=== PATIENT | female | born 1955 | race Caucasian/White ===

== ENCOUNTER 2016-10-29 22:48 | Inpatient (IN) | payer MEDICARE, OTHER ==
[~2016-10-29] VITALS: Ht 154.9 cm; Wt 104.8 kg
[~2016-10-29 22:48] MED LIST: ACET160S PO; ACET325T21 PO; ACET325T9 PO; BENZ0.5T PO; CHOL100014 PO; CHOL500021 PO; CLON0.5T3 PO; CYAN10002 IM; DIVA500T2 PO; DIVA500T4 PO; DOCU-109 PO; FAMO-63 PO; FURO-68 PO; FURO40TA4 PO; HALDOL PO; HALO10TA PO; IPRA3AMP NEB; MAG30ORA2 PO; MAGN2400 PO; METF850T2 PO; METH29OI TP; MULT-208 PO; PANT40TA5 PO; POLY17PO3 PO; QUET200T4 PO; RISP0.5T24 PO; SIMV10TA3 PO; ZIPR20CA2 PO; ZIPR20VI IM
[2016-10-29] MEDS ORDERED: RISP50DI IM (22:51)
[2016-10-29] MEDS ORDERED: POTA20LI27 PO (22:51)
[2016-10-29] MEDS ORDERED: HALO5AMP2 IM (22:51)
[2016-10-29] MEDS ORDERED: CLON1TAB3 PO (22:51)
[2016-10-29] MEDS ORDERED: INSU100I27 SQ (22:51)
[2016-10-29] MEDS ORDERED: QUET100T4 PO (22:51)
[2016-10-29] MEDS ORDERED: METF10002 PO (22:51)
[2016-10-29 23:58] LABS: BACTERIA,URINE FEW /HPF (0-FEW); BILIRUBIN,URINE NEG (NEG); CLARITY,URINE CLEAR; COLOR,URINE YELLOW; GLUCOSE,URINE NEG (NEG); NITRITE,URINE NEG (NEG); RBC,URINE 0 /HPF (0-2); SQUAMOUS EPITHELIAL CELL,UR FEW /LPF; UROBILINOGEN,URINE 0.2 mg/dL (0.2 mg/dL); WBC,URINE OCC /HPF (0-4)
[2016-10-30 00:12] LABS: BASO # 0.1 x10^3/uL (0.0-0.2); BASO % 1 % (0-3); EOS # 0.1 x10^3/uL (0.0-0.7); EOS % 2 % (0-3); HEMOGLOBIN 12.9 g/dL (12.0-15.5); LYMPH # 2.1 x10^3/uL (1.0-4.8); LYMPH % 25 % (24-48); MEAN CORPUSCULAR HEMOGLOBIN 25 pg (25-35); MEAN CORPUSCULAR HGB CONC 32 g/dL (31-37); MEAN CORPUSCULAR VOLUME 79 fL (79-100); MONO # 0.6 x10^3/uL (0.0-1.1); MONO % 7 % (0-9); NEUT # 5.7 x10^3uL (1.8-7.7); NEUT % 67 % (31-73); PLATELET COUNT 238 x10^3/uL (140-400); RED BLOOD COUNT 5.21 x10^6/uL (3.50-5.40); RED CELL DISTRIBUTION WIDTH 19.2 % (11.5-14.5); WHITE BLOOD COUNT 8.5 x10^3/uL (4.0-11.0)
[2016-10-30 00:22] LABS: ALBUMIN 3.3 g/dL (3.4-5.0); ALBUMIN/GLOBULIN RATIO 0.6 (1.0-1.7); CALCIUM 9.2 mg/dL (8.5-10.1); CREATININE 0.7 mg/dL (0.6-1.0); GFR 84.8; POTASSIUM 3.6 mmol/L (3.5-5.1); TOTAL BILIRUBIN 0.3 mg/dL (0.2-1.0); TOTAL PROTEIN 9.1 g/dL (6.4-8.2)
--- NOTE | 2016-10-30 00:39 | PHYS DOC ---
Past History Past Medical History: Anemia, Anxiety, Diabetes, High Cholesterol, Hypertension , Pneumonia, Schizophrenia Past Surgical History: No Surgical History Alcohol Use: None Drug Use: None Adult General Chief Complaint Chief Complaint: PSYCH EVALUATION HPI HPI Patient is a 61 year old F who presents with acute psychoses and for medical clearance for [facility]. Patient was sent in by her facility for psychiatric evaluation. She does a direct admit to [facility] however needs medical clearance prior to going upstairs to [facility]. Patient has no family at bedside. Patient has history of schizophrenia per patient's paperwork. Patient has no complaints. Pertinent exam findings: Heart was regular rate and rhythm without murmurs Lungs are clear to auscultation bilaterally without crackles wheezes rales ED course: Patient was seen and evaluated a CBC, CMP, UA, chest x-ray, EKG were ordered for medical clearance Pertinent results: Laboratory was unremarkable 0037: EKG shows normal sinus rhythm rate of 82 no STEMI MDM: After reviewing the chart, CC/HPI/PMH, physical exam, [lab results], [ radiological results], I do not believe the patient has emergent medical condition warranting further workup and/or admission at this time. I believe patient is stable to be transferred to [facility] for further psychiatric evaluation and treatment. Review of Systems Review of Systems GEN: Denies fevers, chills, sweats HEENT: Denies blurred vision, sore throat CV: Denies chest pain RESP: Denies shortness of air, cough GI: Denies n/v/d NEURO: Denies confusion, dizziness MSK: Denies weakness, joint pain/swelling Allergies Allergies Allergies Coded Allergies Type Severity Reaction Last Updated Verified No Known Drug Allergies 11/25/15 No Physical Exam Physical Exam GEN.: No apparent distress. Alert and oriented. HEENT: Head is normocephalic, atraumatic NECK: Supple. LUNGS: CTAB. HEART: RRR, S1, S2 present. Peripheral pulses intact ABDOMEN: Soft, nontender. Positive bowel sounds. EXTREMITIES: Without any cyanosis. NEUROLOGIC: Normal speech, normal tone PSYCHIATRIC: Agitated SKIN: No ulcerations Current Patient Data Lab Results Laboratory Tests Test 10/29/16 23:25 10/29/16 23:48 Urine Collection Type Unknown Urine Color Yellow Urine Clarity Clear Urine pH 5.5 Urine Specific [place] >=1.030 Urine Protein 100 mg/dl (NEG-TRACE) Urine Glucose (UA) Neg mg/dL (NEG) Urine Ketones (Stick) 15 mg/dL (NEG) Urine Blood Trace (NEG) Urine Nitrite Neg (NEG) Urine Bilirubin Neg (NEG) Urine Urobilinogen Dipstick 0.2 mg/dL (0.2 mg/dL) Urine Leukocyte Esterase Neg (NEG) Urine RBC 0 /HPF (0-2) Urine WBC Occ /HPF (0-4) Urine Squamous Epithelial Cells Few /LPF Urine Bacteria Few /HPF (0-FEW) White Blood Count 8.5 x10^3/uL (4.0-11.0) Red Blood Count 5.21 x10^6/uL (3.50-5.40) Hemoglobin 12.9 g/dL (12.0-15.5) Hematocrit 41.0 % (36.0-47.0) Mean Corpuscular Volume 79 fL (79-100) Mean Corpuscular Hemoglobin 25 pg (25-35) Mean Corpuscular Hemoglobin Concent 32 g/dL (31-37) Red Cell Distribution Width 19.2 % (11.5-14.5) H Platelet Count 238 x10^3/uL (140-400) Neutrophils (%) (Auto) 67 % (31-73) Lymphocytes (%) (Auto) 25 % (24-48) Monocytes (%) (Auto) 7 % (0-9) Eosinophils (%) (Auto) 2 % (0-3) Basophils (%) (Auto) 1 % (0-3) Neutrophils # (Auto) 5.7 x10^3uL (1.8-7.7) Lymphocytes # (Auto) 2.1 x10^3/uL (1.0-4.8) Monocytes # (Auto) 0.6 x10^3/uL (0.0-1.1) Eosinophils # (Auto) 0.1 x10^3/uL (0.0-0.7) Basophils # (Auto) 0.1 x10^3/uL (0.0-0.2) Sodium Level 139 mmol/L (136-145) Potassium Level 3.6 mmol/L (3.5-5.1) Chloride Level 101 mmol/L (98-107) Carbon Dioxide Level 32 mmol/L (21-32) Anion Gap 6 (6-14) Blood Urea Nitrogen 16 mg/dL (7-20) Creatinine 0.7 mg/dL (0.6-1.0) Estimated GFR (Cockcroft-Gault) 84.8 BUN/Creatinine Ratio 23 (6-20) H Glucose Level 182 mg/dL (70-99) H Calcium Level 9.2 mg/dL (8.5-10.1) Total Bilirubin 0.3 mg/dL (0.2-1.0) Aspartate Amino Transferase (AST) 19 U/L (15-37) Alanine Aminotransferase (ALT) 23 U/L (14-59) Alkaline Phosphatase 136 U/L (46-116) H Total Protein 9.1 g/dL (6.4-8.2) H Albumin 3.3 g/dL (3.4-5.0) L Albumin/Globulin Ratio 0.6 (1.0-1.7) L EKG EKG EKG shows normal sinus rhythm rate of 82 no STEMI [] Radiology/Procedures Radiology/Procedures Chest x-ray one view NAD [] Course & Med Decision Making Course & Med Decision Making Pertinent Labs and Imaging studies reviewed. (See chart for details) [] Dragon Disclaimer Dragon Disclaimer This chart was dictated in whole or in part using Voice Recognition software in a busy, high-work load, and often noisy Emergency Department environment. It may contain unintended and wholly unrecognized errors or omissions. Departure Departure: Impression: Primary Impression: Acute exacerbation of psychosis Additional Impression: Schizophrenia Disposition: 09 ADMITTED INPATIENT Admitting Physician: Other ([facility]) Condition: STABLE Referrals: ANGEL ANDREW (PCP) Problem Qualifiers Additional Impression: Schizophrenia Schizophrenia type: unspecified Qualified Codes: F20.9 - Schizophrenia, unspecified ALEJANDRO BALES DO Oct 30, 2016 00:39
[2016-10-30] MEDS ORDERED: METHYL SALICYLATE/MENTHOL TOPICAL OINTMENT 29GM TUBE. TP PRN (01:15)
[2016-10-30] MEDS ORDERED: IPRATRPIUM/ALBUTEROL 0.5/2.5MG 3 ML NEBU. NEB PRN (01:15)
[2016-10-30] MEDS ORDERED: MAG HYDROX/AL HYDROX/SIMETH 30 ML ORAL.SUSP PO PRN (01:15)
[2016-10-30] MEDS ORDERED: ACETAMINOPHEN 325 MG TABLET PO PRN (01:15)
[2016-10-30] MEDS ORDERED: MAGNESIUM HYDROXIDE 2,400 MG/30 ML ORAL.SUSP. PO PRN (01:15)
--- NOTE | 2016-10-30 01:19 | NUR ---
Admit Note: Admit 61 year old female patient of Dr. Feliz with DX: Schizoaffective Disorder Bipolar Type, Pt arrived via EMS from ER at 0105, Pt alert and oriented to self and place, states the year is 194 followed with "it's my world" states she is here to have something done to her body, Pt very agitated, yelling and paranoid with intermittent episodes of combativeness noted. Pt very restless and difficult to redirect upon arrival. Apical pulse 74 and regular with S1 and S2 heart tones noted, respirations 20 shallow even and non-labored with diminished bases bilaterally, Bowel sounds active x 4 quads, ABD large round soft and non-tender to palpation, Pt states her last BM was yesterday. Skin w/d with 2-3 + edema noted to BLE, Scaring noted to LLE from chronic Edema, No areas of impaired skin integrity noted. Pt assisted into the shower r/t poor hygiene at this time
[2016-10-30 01:23] VITALS: BP 164/75
[2016-10-30 02:03] LABS: VAL ACID 51 mcg/mL (50-100)
--- NOTE | 2016-10-30 04:17 | ACF ---
Admission Criteria Forms PSYCHIATRIC DISORDERS Clinical Indications for Inpatient Care (Place 'X' for any and all applicable criteria): Ongoing inpatient care may be needed for ANY ONE of the following(1)(2)(3)(4)(6) (7)(8): [ ]I. Danger to self or others not manageable at lower level of care. [ ]II. Grave disability (eg, inability to perform self care necessary at lower level of care) [ ]III. Agitation or inappropriate behavior interfering with care for primary condition (eg, attempting to discontinue lines or drains prematurely, unable to cooperate with respiratory care) [X]IV. Severe disability or disorder indicated by ALL of the following: [ ]a) Severe behavioral health disorder-related symptoms or condition indicated by ANY ONE of the following: [ ]i) Severe problem with cognition, memory, judgment, or impulse control [X]ii) Severe clinical manifestations (eg, hallucinations, delusions, other acute psychotic symptoms, kaitlin, extreme agitation or anxiety) [X]b) Patient management at lower level of care is not feasible until acute intervention or modification is initiated. Extended stay beyond goal length of stay for the primary condition may be indicated when ANY ONE of the following is present: (1)(2)(3)(4): [ ]a) Patient is a danger to self or others and not manageable at lower level of care. [ ]b) Behavior crisis management, including physical or chemical restraints, is required and is not available at a lower level of care. [ ]c) Behavioral symptoms (e.g., agitation, somnolence, inappropriate behavior) are present, and are not manageable at a lower level of care. [ ]d) Patient cannot understand follow-up treatment and crisis plan. [ ]e) Provider and supports are not sufficiently available at lower level of care. [ ]f) Patient cannot participate (e.g., verify absence of plan for harm) and is in needed of monitoring. The original [facility] content created by [facility] has been revised. The portions of the content which have been revised are identified through the use of italic text or in bold, and [facility] has neither reviewed nor approved the modified material. All other unmodified content is copyright [facility] [employer]. Please see references footnoted in the original [facility] edition 2016 Admission Criteria Met?: Yes YANNI PARSONS Oct 30, 2016 04:17
--- NOTE | 2016-10-30 04:41 | EKG ---
[address] [address] Test Date: 2016-10-30 Test Time: 00:37:52 Pat Name: PRIYA MCCABE Department: Room: [facility] 1 Gender: F Corporate Development Analyst: CHRIS : 1955 Requested By: ALEJANDRO BALES Order Number: [id number] Reading MD: [place] Measurements Intervals [place] Rate: 82 P: 35 DE: 158 QRS: -4 QRSD: 72 T: 43 QT: 366 QTc: 431 Interpretive Statements SINUS RHYTHM LEFTWARD AXIS QRS(T) CONTOUR ABNORMALITY CONSISTENT WITH ANTEROSEPTAL INFARCT PROBABLY OLD RI6. Unconfirmed report Compared to ECG 11/25/2015 21:16:31 Left-axis deviation now present Myocardial infarct finding now present T-wave abnormality no longer present Electronically Signed On 10-31-2016 9:56:36 CDT by [place]
--- NOTE | 2016-10-30 07:15 | RAD ---
Portable chest, 10/29/2016: History: Altered mental status The heart is at the upper limits of normal in size with prominence of the left ventricle. There is mild tortuosity and calcific plaquing of the thoracic aorta. The pulmonary vascularity is normal. No pulmonary infiltrates are seen. There is no evidence of pleural fluid. IMPRESSION: No acute cardiopulmonary abnormality is detected.
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
[2016-10-30] MEDS: clonazePAM 1 MG TABLET PO SCH ×3 (08:12→21:00)
[2016-10-30] MEDS: POTASSIUM CHLORIDE 20 MEQ/15 ML ORAL LIQUID. PO SCH ×3 (08:12→17:14)
[2016-10-30] MEDS: metFORMIN 500 MG TABLET PO SCH ×3 (08:12→17:15)
[2016-10-30] MEDS: QUEtiapine 50 MG TABLET. PO SCH ×7 (08:13→21:00)
[2016-10-30] MEDS: FUROSEMIDE 40 MG TABLET PO SCH ×3 (08:13→14:09)
[2016-10-30] MEDS: DIVALPROEX ER 500 MG TAB.ER.24H PO SCH ×7 (08:14→21:00)
[2016-10-30] MEDS: BENZTROPINE MESYLATE 0.5 MG TABLET PO SCH ×3 (08:14→21:00)
[2016-10-30] MEDS ORDERED: clonazePAM 0.5 MG TABLET PO SCH (09:00)
[2016-10-30] MEDS ORDERED: DIVALPROEX ER 500 MG TAB.ER.24H PO SCH (09:00)
--- NOTE | 2016-10-30 10:50 | NUR ---
ASHLEY reviewed Pt. insurance upon admit. Face sheet, CSNAP and intake state PT's insurance is Medicare primary and [facility] Medicaid secondary. No auth. needed.
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
--- NOTE | 2016-10-30 13:00 | NUR ---
Behavior Intervention Response and Plan: BIRP Note: Behavior: Assumed Care of patient, patient located in Day Room at shift change. Patient exhibited the following behavior Defensive, Non Compliant, Combative. Brief assessment on rounds of vital signs, medication needs, lab studies, and pain. Treatment plan problems . Intervention: Patient assessed and the following interventions initiated safety checks 15 Minute Checks Personal Alarm in place , Call sevilla in reach , Medications. Response: After interactions and interventions patient responded in the following manner, Non Compliant , Resistive ,Combative. Continue to assess behaviors and condition will continue to monitor throughout the shift as needed. Plan: Continue to monitor Master Treatment Plan for patient's progress toward short term goals of No harm To self/ others, Decreased Agitation, spectrographic analyst goals to return to previous living setting vs placement. Continue to assess patient for changes in above assessment. Monitor for medication needs, pain, and safety concerns. Hourly rounding performed to ensure safe environment.
--- NOTE | 2016-10-30 14:00 | NUR ---
THERAPEUTIC RECREATION GROUP NOTE TITLE :Sing along with Gely ACTIVITY : Music GOAL : Increase socialization, elevate mood, stimulate memory DURATION : 50 minutes RESPONSE : No participation.
[2016-10-30] MEDS: risperiDONE MICROSPHERES 50 MG/2 ML DISP.SYRIN. IM SCH (14:05)
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
--- NOTE | 2016-10-30 15:15 | NUR ---
THERAPEUTIC RECREATION GROUP NOTE TITLE :Music Bingo! ACTIVITY : Music GOAL : Increase socialization, elevate mood, stimulate memory DURATION : 60 minutes RESPONSE : No participation.
[2016-10-30 15:29] LABS: THYROID STIM HORMONE (TSH) 2.947 uIU/mL (0.358-3.740)
[2016-10-30] MEDS: clonazePAM 0.5 MG TABLET PO SCH ×2 (16:00→17:21)
[2016-10-30 16:11] VITALS: BP 117/68
--- NOTE | 2016-10-30 19:12 | NUR ---
Nursing Note Patient approached by this nurse to pass medications. When asked if she would take her medications patient proceeded to yell at this nurse stating that she would not take her medications. Patient was asked why she would not take medications but would not respond to further questioning.
[2016-10-30 20:13] LABS: T3 TOTAL 98 ng/dL (71-180)
--- NOTE | 2016-10-30 20:17 | PDOC ---
Exam Napoleon Demential Exam: Napoleon Note: Please also refer to the separate dictated note~for this date of service dictated separately.~Patient seen individually. Discussed the patient with Nursing staff reviewed the chart.~Reviewed interim history and current functioning. Reviewed vital signs,~Labs/ Radiology~and current medications noted below. Continue current treatment with the changes noted in the dictated addendum note Assessment: Vital Signs: Vital Signs Date Time Temp Pulse Resp B/P (MAP) Pulse Ox O2 Delivery O2 Flow Rate FiO2 10/30/16 16:11 97.6 91 20 117/68 (84) 95 Room Air Labs: Laboratory Tests Test 10/29/16 23:25 10/29/16 23:48 10/30/16 07:54 10/30/16 17:09 Urine Collection Type Unknown Urine Color Yellow Urine Clarity Clear Urine pH 5.5 Urine Specific [place] >=1.030 Urine Protein 100 mg/dl (NEG-TRACE) Urine Glucose (UA) Neg mg/dL (NEG) Urine Ketones (Stick) 15 mg/dL (NEG) Urine Blood Trace (NEG) Urine Nitrite Neg (NEG) Urine Bilirubin Neg (NEG) Urine Urobilinogen Dipstick 0.2 mg/dL (0.2 mg/dL) Urine Leukocyte Esterase Neg (NEG) Urine RBC 0 /HPF (0-2) Urine WBC Occ /HPF (0-4) Urine Squamous Epithelial Cells Few /LPF Urine Bacteria Few /HPF (0-FEW) White Blood Count 8.5 x10^3/uL (4.0-11.0) Red Blood Count 5.21 x10^6/uL (3.50-5.40) Hemoglobin 12.9 g/dL (12.0-15.5) Hematocrit 41.0 % (36.0-47.0) Mean Corpuscular Volume 79 fL (79-100) Mean Corpuscular Hemoglobin 25 pg (25-35) Mean Corpuscular Hemoglobin Concent 32 g/dL (31-37) Red Cell Distribution Width 19.2 % (11.5-14.5) H Platelet Count 238 x10^3/uL (140-400) Neutrophils (%) (Auto) 67 % (31-73) Lymphocytes (%) (Auto) 25 % (24-48) Monocytes (%) (Auto) 7 % (0-9) Eosinophils (%) (Auto) 2 % (0-3) Basophils (%) (Auto) 1 % (0-3) Neutrophils # (Auto) 5.7 x10^3uL (1.8-7.7) Lymphocytes # (Auto) 2.1 x10^3/uL (1.0-4.8) Monocytes # (Auto) 0.6 x10^3/uL (0.0-1.1) Eosinophils # (Auto) 0.1 x10^3/uL (0.0-0.7) Basophils # (Auto) 0.1 x10^3/uL (0.0-0.2) Sodium Level 139 mmol/L (136-145) Potassium Level 3.6 mmol/L (3.5-5.1) Chloride Level 101 mmol/L (98-107) Carbon Dioxide Level 32 mmol/L (21-32) Anion Gap 6 (6-14) Blood Urea Nitrogen 16 mg/dL (7-20) Creatinine 0.7 mg/dL (0.6-1.0) Estimated GFR (Cockcroft-Gault) 84.8 BUN/Creatinine Ratio 23 (6-20) H Glucose Level 182 mg/dL (70-99) H Calcium Level 9.2 mg/dL (8.5-10.1) Magnesium Level 2.0 mg/dL (1.8-2.4) Iron Level 38 ug/dL (50-170) L Total Iron Binding Capacity 437 ug/dL (250-450) Iron Saturation 9 % (15-34) L Total Bilirubin 0.3 mg/dL (0.2-1.0) Aspartate Amino Transferase (AST) 19 U/L (15-37) Alanine Aminotransferase (ALT) 23 U/L (14-59) Alkaline Phosphatase 136 U/L (46-116) H Total Protein 9.1 g/dL (6.4-8.2) H Albumin 3.3 g/dL (3.4-5.0) L Albumin/Globulin Ratio 0.6 (1.0-1.7) L Triglycerides Level 123 mg/dL (0-150) Cholesterol Level 222 mg/dL (0-200) H LDL Cholesterol, Calculated 146 mg/dL (0-100) H VLDL Cholesterol, Calculated 24 mg/dL (0-40) Non-HDL Cholesterol Calculated 170 mg/dL (0-129) H HDL Cholesterol 52 mg/dL (40-60) Cholesterol/HDL Ratio 4.0 25-Hydroxy Vitamin D Total Pending Thyroid Stimulating Hormone (TSH) 2.947 uIU/mL (0.358-3.740) Thyroxine (T4) Pending Total Triiodothyronine (TT3) 98 ng/dL (71-180) Valproic Acid Level 51 mcg/mL (50-100) Valproic Acid Last Dose Date 10/29/2016 Valproic Acid Last Dose Time 0900 RPR Titer Additional Testing Pending Glucose (Fingerstick) 138 mg/dL (70-99) H 133 mg/dL (70-99) H Test 10/30/16 19:13 Glucose (Fingerstick) 172 mg/dL (70-99) H Current Medications: Meds: Current Medications Acetaminophen (Tylenol) 650 mg PRN Q6HRS PRN PO PAIN / TEMP; Start 10/30/16 at 01:15 Multi-Ingredient Ointment (Analgesic Maple) 1 lyndon PRN QID PRN TP MUSCLE PAIN; Start 10/30/16 at 01:15 Al Hydroxide/Mg Hydroxide (Mylanta Plus Xs) 15 ml PRN AFTMEALHC PRN PO DYSPEPSIA; Start 10/30/16 at 01:15 Magnesium Hydroxide (Milk Of Magnesia) 2,400 mg PRN QHS PRN PO CONSTIPATION; Start 10/30/16 at 01:15 Benztropine Mesylate (Cogentin) 0.5 mg BID PO Last administered on 10/30/16 19: 05; Start 10/30/16 at 09:00 Clonazepam (KlonoPIN) 0.5 mg DAILY PO ; Start 10/30/16 at 09:00; Stop 10/30/16 at 09:00; Status DC Clonazepam (KlonoPIN) 1 mg BID PO Last administered on 10/30/16 19:05; Start at 09:00 Divalproex Sodium (Depakote Er) 500 mg BID PO ; Start 10/30/16 at 09:00; Stop 10/30/16 at 09:00; Status DC Quetiapine Fumarate (SEROquel) 150 mg QID PO Last administered on 10/30/16 19: 05; Start 10/30/16 at 09:00 Risperidone (RisperDAL CONSTA) 50 mg Q2WKS IM Last administered on 10/30/16 14: 05; Start 10/30/16 at 09:00 Furosemide (Lasix) 60 mg BID92 PO Last administered on 10/30/16 08:13; Start at 09:00 Insulin Detemir (Levemir) 55 units QHS SQ ; Start 10/30/16 at 21:00 Albuterol/ Ipratropium (Duoneb) 3 ml PRN DAILY PRN NEB SHORTNESS OF BREATH; Start 10/30/16 at 01:15; Stop 10/30/16 at 02:29; Status DC Potassium Chloride (KCl Oral Soln) 20 meq BIDWMEALS PO Last administered on 10/30 08:12; Start 10/30/16 at 08:00 Metformin HCl (Glucophage) 1,000 mg BIDWMEALS PO Last administered on 10/30/16 08:12; Start 10/30/16 at 08:00 Clonazepam (KlonoPIN) 0.5 mg DAILY16 PO ; Start 10/30/16 at 16:00 Divalproex Sodium (Depakote Er) 500 mg QID PO Last administered on 10/30/16 19: 05; Start 10/30/16 at 09:00 Albuterol/ Ipratropium (Duoneb) 3 ml PRN QID PRN NEB SHORTNESS OF BREATH; Start 10/31/16 at 01:15 Olanzapine (ZyPREXA ZYDIS) 5 mg PRN Q2HR PRN PO PSYCHOSIS; Start 10/30/16 at 05: 15 Mirtazapine (Remeron) 15 mg QHS PO ; Start 10/30/16 at 21:00 Buspirone HCl (Buspar) 5 mg BID PO ; Start 10/30/16 at 21:00 Active Scripts Active Reported Seroquel (Quetiapine Fumarate) 100 Mg Tablet 150 Mg PO QID Risperdal Consta (Risperidone Microspheres) 50 Mg/2 Ml Disp.syrin 50 Mg IM Q2WKS Potassium Chloride Oral Liquid (Potassium Chloride) 20 Meq/15 Ml Liquid 20 Meq PO BID Metformin Hcl 1,000 Mg Tablet 1,000 Mg PO BIDWMEALS Levemir Flextouch (Insulin Detemir) 100 Unit/1 Ml Insuln.pen 55 Unit SQ QHS Haldol (Haloperidol Lactate) 5 Mg/1 Ml Ampul 5 Mg IM PRN Q6HRS PRN Clonazepam 1 Mg Tablet 1 Mg PO BID Furosemide 40 Mg Tablet 60 Mg PO [id number] Hold for SBP less than 100. After held dose, reassess in 2 hours. If SBP is above threshold, administer dose as ordered. If SBP is below threshold, contact provider for additional instructions. Duoneb 0.5-3(2.5) Mg/3 Ml (Albuterol/Ipratropium) 3 Ml Ampul.neb 3 Ml NEB PRN QID PRN Depakote Er (Divalproex Sodium) 500 Mg Tab.er.24h 500 Mg PO QID Give with food. DO NOT CRUSH OR CHEW Cyanocobalamin Injection (Cyanocobalamin (Vitamin B-12)) 1,000 Mcg/1 Ml Vial 2, 000 Mcg IM [id number] Clonazepam 0.5 Mg Tablet 0.5 Mg PO DAILY16 Benztropine Mesylate 0.5 Mg Tablet 0.5 Mg PO BID Diagnosis: Problems: (1) Depression (2) Schizoaffective disorder (3) Schizophrenia (4) Acute exacerbation of psychosis KALIN STARKS MD Oct 30, 2016 20:17
[2016-10-30] MEDS: busPIRone 5 MG TABLET. PO SCH (21:00)
[2016-10-30] MEDS: MIRTAZAPINE 15 MG TABLET PO SCH (21:00)
[2016-10-30] MEDS: INSULIN DETEMIR 300 UNITS/3 ML INSULN.PEN. SQ SCH (21:00)
[2016-10-31 01:09] LABS: THYROXINE 9.1 ug/dL (4.5-12.0)
[2016-10-31] MEDS ORDERED: IPRATRPIUM/ALBUTEROL 0.5/2.5MG 3 ML NEBU. NEB PRN (01:15)
[2016-10-31 06:04] VITALS: BP 144/84
[2016-10-31] MEDS: metFORMIN 500 MG TABLET PO SCH ×2 (08:05→17:08)
[2016-10-31] MEDS: QUEtiapine 50 MG TABLET. PO SCH ×5 (08:06→20:07)
[2016-10-31] MEDS: busPIRone 5 MG TABLET. PO SCH ×2 (08:06→20:07)
[2016-10-31] MEDS: BENZTROPINE MESYLATE 0.5 MG TABLET PO SCH ×2 (08:06→20:07)
[2016-10-31] MEDS: FUROSEMIDE 40 MG TABLET PO SCH ×3 (08:06→13:13)
[2016-10-31] MEDS: POTASSIUM CHLORIDE 20 MEQ/15 ML ORAL LIQUID. PO SCH ×2 (08:06→17:09)
[2016-10-31] MEDS: clonazePAM 1 MG TABLET PO SCH ×2 (08:07→20:07)
[2016-10-31] MEDS: DIVALPROEX ER 500 MG TAB.ER.24H PO SCH ×3 (08:34→17:09)
--- NOTE | 2016-10-31 09:39 | CONS ---
DATE OF CONSULTATION: 10/30/2016 CONSULT FOR MEDICAL MANAGEMENT HISTORY OF PRESENT ILLNESS: The patient is a 61-year-old -Russian female patient, a [facility], who was [facility] on account. The patient is yelling, cursing, combative, paranoid, thinks staff stole her kids, refused medication and care. All this in the background of schizophrenia, and she was admitted for inpatient psychiatric stabilization. PAST MEDICAL HISTORY: Significant for type 2 diabetes mellitus, chronic respiratory failure, morbid obesity, obstructive sleep apnea, hypoxia, anemia, dysphagia. She is also known to have B12 deficiency, tremors, and previous history of cellulitis. PAST PSYCHIATRIC HISTORY: Significant for schizophrenia and dementia with behavioral disorder, psychosis, and bipolar disorder. PAST SURGICAL HISTORY: Unremarkable. FAMILY HISTORY: Noncontributory. SOCIAL HISTORY: She is a long term resident. She does not smoke, drink alcohol or use any recreational drugs. ALLERGIES: She has no known drug allergies. MEDICATIONS: She is currently on following medications: Benztropine mesylate 0.5 mg twice a day, clonazepam 0.5 mg daily, clonazepam 1 mg twice a day, cyanocobalamin or vitamin B12 is 1000 mcg intramuscular every 3 months. She is on Depakote extended release 500 mg 4 times a day, furosemide 60 mg twice a day, haloperidol 5 mg intramuscular every 6 hours. She is on detemir insulin 55 units at bedtime, ipratropium bromide, albuterol inhaler 3 mL by nebulizer 4 times a day, metformin 1000 mg twice a day with meals, potassium chloride 20 mEq twice a day, Seroquel 150 mg 4 times a day and risperidone 50 mg intramuscular every 2 weeks. REVIEW OF SYSTEMS: Unobtainable as the patient is very combative. PHYSICAL EXAMINATION: GENERAL: On examining her, she was sitting comfortably in her wheelchair, in no apparent respiratory distress. She was pale, no jaundice, cyanosis, or thyromegaly. No jugular venous distention. No . VITAL SIGNS: Her heart rate was 79, blood pressure 164/75, temperature was 97.4, respiratory rate 24 and oxygen saturation was 95% on room air. HEENT: Showed she is normocephalic, atraumatic. She is apparently wheelchair bound, but she is not allowing me to examine her properly. LABORATORY DATA: Showed that her white cell count was 8500, hemoglobin 13, hematocrit 41, MCV 79, and platelet count 238,000 with normal manual differential. Her chemistry showed that her serum sodium of 139, potassium 3.6, chloride 101, bicarbonate 32, anion gap of 6, BUN 16, creatinine 0.7, estimated GFR was 85 mL per minute. Her glucose was 182, calcium was 9.2, magnesium 2. Serum iron 38, total iron binding capacity was 437 and percent saturation was only 9%. Her total bilirubin, AST, ALT were normal. Alkaline phosphatase slightly elevated. Her total protein was 9.1, albumin was 3.3. Her serum triglycerides were normal at 123, cholesterol was 221, LDL cholesterol 146, VLDL was 24 and HDL was 52. The ratio was only 4. TSH was 2.947. Her urinalysis showed the urine was yellow, clear with a pH of 5.5, specific gravity of 1.030. There was a small amount of protein, negative for glucose, trace of ketones, trace of blood, negative for nitrite and leukocyte esterase. There were 0 rbc's, occasional wbc's, very few bacteria. Her toxic screen showed a valproic acid to be 51. Her chest x-ray showed that the heart is the upper limit of normal in size, with prominence of the left ventricle, there is mild tortuosity and calcific plaquing of the thoracic aorta. The pulmonary vascularity is normal with no pulmonary infiltrates seen. No evidence of pleural effusion or pneumothorax. SUMMARY: This is a 61-year-old -Russian female patient, who was admitted again to [facility] from [facility] on account of being paranoid thinking that the staff has stolen her kids. She has been yelling, cursing, combative, refusing medication and care, all this in a background of schizoaffective disorder with bipolar disorder and behavioral disorder. Her vital signs seem to be stable as well as her lab work. She has obviously hypercholesterolemia as her LDL cholesterol was high at 146. Her total protein was high that raised the possibility of multiple myeloma, although her kidney function is normal. She has also lab work consistent with iron deficiency anemia, although her hemoglobin is 12.9 and hematocrit 41. PLAN: My plan is to check her serum ferritin and also check serum protein electrophoresis given the total protein of 9.1. Other than that, the patient seems to be medically stable. I will continue with all current medication for the time being and review all the lab work that is still pending at the time of this dictation. Thank you Dr. Feliz for allowing me to participate in the care of this patient. NICHOLAS AGARWAL MD DR: CHIP/karli JOB#: [id number] / [id number]
--- NOTE | 2016-10-31 10:15 | NUR ---
THERAPEUTIC RECREATION GROUP NOTE TITLE :Balloon Bop with Noodles ACTIVITY : Activities and Games GOAL : Increase socialization and alertness. Maintain/improve mental and physical functioning. DURATION : 60 Minutes RESPONSE : Full participation. Pt. joined the session towards the end. She was not willing to give Physical Therapy their gait belt back. SOCIAL WORKER CLINICAL tried to move her attention to a pool noodle but Pt. did not focus. Belt was taken without cooperation from Pt. Pt. was difficult to understand and occasionally shouted during the group. She captured the balloon and refused to hit it for a minute, swatting away SOCIAL WORKER [employer]INICAL with her noodle. She was slow to comply when prompted to bump it to others. When time to return noodles, Pt. was not willing to give it to SOCIAL WORKER CLINICAL. Noodle was taken without cooperation from Pt. and Pt. tried to scratch SOCIAL WORKER CLINICAL.
--- NOTE | 2016-10-31 10:56 | NUR ---
Behavior Intervention Response and Plan: BIRP Note: Behavior: Assumed Care of patient, patient located in Dining Room at shift change. Patient exhibited the following behavior Restless, Disorganized, Compulsive. Brief assessment on rounds of vital signs, medication needs, lab studies, and pain. Treatment plan problems . Intervention: Patient assessed and the following interventions initiated safety checks 15 Minute Checks Cognitive Assessment , Head to toe Assessment , Medications. Response: After interactions and interventions patient responded in the following manner, Calm , Attention Seeking ,Cooperative. Continue to assess behaviors and condition will continue to monitor throughout the shift as needed. Plan: Continue to monitor Master Treatment Plan for patient's progress toward short term goals of Decreased Agitation, Decreased Aggression, group home goals to return to previous living setting vs placement. Continue to assess patient for changes in above assessment. Monitor for medication needs, pain, and safety concerns. Hourly rounding performed to ensure safe environment.
--- NOTE | 2016-10-31 11:20 | NUR ---
THERAPEUTIC RECREATION GROUP NOTE TITLE :Movement to Music: Flexibility ACTIVITY : Movement/ Exercise GOAL : Increase morale, attention, flexibility. Decrease stress/anxiety. DURATION : 30 Minutes RESPONSE : No participation. Addendum: 11/02/16 at 1216 by LASHAUN MANNING ACT This activity took place on 11/01/2016 at 1120, not 10/31/2016.
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
--- NOTE | 2016-10-31 13:14 | NUR ---
Nurse attempted to administer afternoon meds hidden in boost, but patient states "you cant fool me! I'm not taking that shit". Patient informed she cannot have chocolate milk until she finishes her boost, patient continued to yell, will approach again at a later time.
[2016-10-31 15:47] VITALS: BP 92/62
[2016-10-31] MEDS: clonazePAM 0.5 MG TABLET PO SCH (17:08)
--- NOTE | 2016-10-31 19:43 | PDOC ---
Exam Napoleon Demential Exam: Napoleon Note: Please also refer to the separate dictated note~for this date of service dictated separately.~Patient seen individually. Discussed the patient with Nursing staff reviewed the chart.~Reviewed interim history and current functioning. Reviewed vital signs,~Labs/ Radiology~and current medications noted below. Continue current treatment with the changes noted in the dictated addendum note Assessment: Vital Signs: Vital Signs Date Time Temp Pulse Resp B/P (MAP) Pulse Ox O2 Delivery O2 Flow Rate FiO2 10/31/16 15:47 96.7 73 18 92/62 (72) 98 10/30/16 16:11 Room Air I&O Intake and Output 10/31/16 07:00 Intake Total 720 ml Balance 720 ml Intake Oral 720 ml Labs: Laboratory Tests Test 10/31/16 07:27 10/31/16 09:17 10/31/16 11:14 10/31/16 16:37 Glucose (Fingerstick) 138 mg/dL (70-99) H 174 mg/dL (70-99) H 165 mg/dL (70-99) H Ferritin 66 ng/mL (8-252) Test 10/31/16 19:05 Glucose (Fingerstick) 228 mg/dL (70-99) H Current Medications: Meds: Current Medications Acetaminophen (Tylenol) 650 mg PRN Q6HRS PRN PO PAIN / TEMP; Start 10/30/16 at 01:15 Multi-Ingredient Ointment (Analgesic Doyline) 1 lyndon PRN QID PRN TP MUSCLE PAIN; Start 10/30/16 at 01:15 Al Hydroxide/Mg Hydroxide (Mylanta Plus Xs) 15 ml PRN AFTMEALHC PRN PO DYSPEPSIA; Start 10/30/16 at 01:15 Magnesium Hydroxide (Milk Of Magnesia) 2,400 mg PRN QHS PRN PO CONSTIPATION; Start 10/30/16 at 01:15 Benztropine Mesylate (Cogentin) 0.5 mg BID PO Last administered on 10/31/16 08: 06; Start 10/30/16 at 09:00 Clonazepam (KlonoPIN) 0.5 mg DAILY PO ; Start 10/30/16 at 09:00; Stop 10/30/16 at 09:00; Status DC Clonazepam (KlonoPIN) 1 mg BID PO Last administered on 10/31/16 08:07; Start at 09:00 Divalproex Sodium (Depakote Er) 500 mg BID PO ; Start 10/30/16 at 09:00; Stop 10/30/16 at 09:00; Status DC Quetiapine Fumarate (SEROquel) 150 mg QID PO Last administered on 10/31/16 17: 08; Start 10/30/16 at 09:00 Risperidone (RisperDAL CONSTA) 50 mg Q2WKS IM Last administered on 10/30/16 14: 05; Start 10/30/16 at 09:00 Furosemide (Lasix) 60 mg BID92 PO Last administered on 10/31/16 08:06; Start at 09:00 Insulin Detemir (Levemir) 55 units QHS SQ ; Start 10/30/16 at 21:00 Albuterol/ Ipratropium (Duoneb) 3 ml PRN DAILY PRN NEB SHORTNESS OF BREATH; Start 10/30/16 at 01:15; Stop 10/30/16 at 02:29; Status DC Potassium Chloride (KCl Oral Soln) 20 meq BIDWMEALS PO Last administered on 10/31 17:09; Start 10/30/16 at 08:00 Metformin HCl (Glucophage) 1,000 mg BIDWMEALS PO Last administered on 10/31/16 17:08; Start 10/30/16 at 08:00 Clonazepam (KlonoPIN) 0.5 mg DAILY16 PO Last administered on 10/31/16 17:08; Start 10/30/16 at 16:00 Divalproex Sodium (Depakote Er) 500 mg QID PO Last administered on 10/31/16 17: 09; Start 10/30/16 at 09:00; Stop 10/31/16 at 17:43; Status DC Albuterol/ Ipratropium (Duoneb) 3 ml PRN QID PRN NEB SHORTNESS OF BREATH; Start 10/31/16 at 01:15 Olanzapine (ZyPREXA ZYDIS) 5 mg PRN Q2HR PRN PO PSYCHOSIS; Start 10/30/16 at 05: 15 Mirtazapine (Remeron) 15 mg QHS PO ; Start 10/30/16 at 21:00 Buspirone HCl (Buspar) 5 mg BID PO Last administered on 10/31/16t 08:06; Start 10/30/16 at 21:00 Vitamin D (Vitamin D3) 50,000 unit WEEKLY PO ; Start 11/01/16 at 09:00 Divalproex Sodium (Depakote Sprinkles) 1,000 mg BID PO ; Start 10/31/16 at 21:00 Haloperidol Lactate (Haldol Oral) 5 mg DAILY PO ; Start 11/01/16 at 09:00 Active Scripts Active Reported Seroquel (Quetiapine Fumarate) 100 Mg Tablet 150 Mg PO QID Risperdal Consta (Risperidone Microspheres) 50 Mg/2 Ml Disp.syrin 50 Mg IM Q2WKS Potassium Chloride Oral Liquid (Potassium Chloride) 20 Meq/15 Ml Liquid 20 Meq PO BID Metformin Hcl 1,000 Mg Tablet 1,000 Mg PO BIDWMEALS Levemir Flextouch (Insulin Detemir) 100 Unit/1 Ml Insuln.pen 55 Unit SQ QHS Haldol (Haloperidol Lactate) 5 Mg/1 Ml Ampul 5 Mg IM PRN Q6HRS PRN Clonazepam 1 Mg Tablet 1 Mg PO BID Furosemide 40 Mg Tablet 60 Mg PO [id number] Hold for SBP less than 100. After held dose, reassess in 2 hours. If SBP is above threshold, administer dose as ordered. If SBP is below threshold, contact provider for additional instructions. Duoneb 0.5-3(2.5) Mg/3 Ml (Albuterol/Ipratropium) 3 Ml Ampul.neb 3 Ml NEB PRN QID PRN Depakote Er (Divalproex Sodium) 500 Mg Tab.er.24h 500 Mg PO QID Give with food. DO NOT CRUSH OR CHEW Cyanocobalamin Injection (Cyanocobalamin (Vitamin B-12)) 1,000 Mcg/1 Ml Vial 2, 000 Mcg IM [id number] Clonazepam 0.5 Mg Tablet 0.5 Mg PO DAILY16 Benztropine Mesylate 0.5 Mg Tablet 0.5 Mg PO BID Diagnosis: Problems: (1) Schizophrenia (2) Acute exacerbation of psychosis (3) Depression (4) Schizoaffective disorder (5) Anxiety disorder (6) Impulse control disorder (7) Schizoaffective disorder, chronic condition with acute exacerbation KALIN STARKS MD Oct 31, 2016 19:43
[2016-10-31] MEDS: MIRTAZAPINE 15 MG TABLET PO SCH (20:07)
[2016-10-31] MEDS: DIVALPROEX 125 MG CAP.SPRINK PO SCH (20:08)
[2016-10-31] MEDS: INSULIN DETEMIR 300 UNITS/3 ML INSULN.PEN. SQ SCH (20:32)
[2016-11-01 05:46] VITALS: BP 127/82
--- NOTE | 2016-11-01 06:08 | NUR ---
Behavior Intervention Response and Plan: BIRP Note: Behavior: Assumed Care of patient, patient located in Hallway at shift change. Patient exhibited the following behavior Disorganized, Compulsive, Demanding. Brief assessment on rounds of vital signs, medication needs, lab studies, and pain. Treatment plan problems 1-2. Intervention: Patient assessed and the following interventions initiated safety checks 15 Minute Checks Cognitive Assessment , Medications , Nutrition. Response: After interactions and interventions patient responded in the following manner, Delusions , Agitated ,Demanding. Continue to assess behaviors and condition will continue to monitor throughout the shift as needed. Plan: Continue to monitor Master Treatment Plan for patient's progress toward short term goals of Decreased Agitation, Medication Compliance, intermediate goals to return to previous living setting vs placement. Continue to assess patient for changes in above assessment. Monitor for medication needs, pain, and safety concerns. Hourly rounding performed to ensure safe environment.
[2016-11-01] MEDS: FUROSEMIDE 40 MG TABLET PO SCH ×2 (07:59→15:04)
[2016-11-01] MEDS: BENZTROPINE MESYLATE 0.5 MG TABLET PO SCH ×2 (07:59→19:23)
[2016-11-01] MEDS: metFORMIN 500 MG TABLET PO SCH ×2 (07:59→16:48)
[2016-11-01] MEDS: busPIRone 5 MG TABLET. PO SCH ×2 (07:59→19:23)
[2016-11-01] MEDS: POTASSIUM CHLORIDE 20 MEQ/15 ML ORAL LIQUID. PO SCH ×2 (07:59→16:48)
[2016-11-01] MEDS: DIVALPROEX 125 MG CAP.SPRINK PO SCH ×2 (07:59→19:34)
[2016-11-01] MEDS: CHOLECALCIFEROL (VITAMIN D3) 50,000 UNIT CAPSULE PO SCH (08:02)
[2016-11-01] MEDS: HALOPERIDOL 10 MG/5 ML ORAL.CONC. PO SCH (08:02)
[2016-11-01] MEDS: clonazePAM 1 MG TABLET PO SCH ×2 (08:02→19:33)
--- NOTE | 2016-11-01 11:31 | NUR ---
Behavior Intervention Response and Plan: BIRP Note: Behavior: Assumed Care of patient, patient located in Dining Room at shift change. Patient exhibited the following behavior Compulsive, Demanding, Irritable. Brief assessment on rounds of vital signs, medication needs, lab studies, and pain. Treatment plan problems . Intervention: Patient assessed and the following interventions initiated safety checks 15 Minute Checks Cognitive Assessment , Head to toe Assessment , Medications. Response: After interactions and interventions patient responded in the following manner, Calm , Compliant ,Cooperative. Continue to assess behaviors and condition will continue to monitor throughout the shift as needed. Plan: Continue to monitor Master Treatment Plan for patient's progress toward short term goals of Decreased Aggression, Decreased Agitation, termite exterminator helper goals to return to previous living setting vs placement. Continue to assess patient for changes in above assessment. Monitor for medication needs, pain, and safety concerns. Hourly rounding performed to ensure safe environment.
[2016-11-01] MEDS: clonazePAM 0.5 MG TABLET PO SCH (15:04)
[2016-11-01 15:29] VITALS: BP 102/70
[2016-11-01] MEDS: MIRTAZAPINE 15 MG TABLET PO SCH (19:23)
[2016-11-01] MEDS: INSULIN DETEMIR 300 UNITS/3 ML INSULN.PEN. SQ SCH ×2 (21:00→21:30)
--- NOTE | 2016-11-01 21:08 | PDOC ---
Exam Napoleon Demential Exam: Napoleon Note: Please also refer to the separate dictated note~for this date of service dictated separately.~Patient seen individually. Discussed the patient with Nursing staff reviewed the chart.~Reviewed interim history and current functioning. Reviewed vital signs,~Labs/ Radiology~and current medications noted below. Continue current treatment with the changes noted in the dictated addendum note Assessment: Vital Signs: Vital Signs Date Time Temp Pulse Resp B/P (MAP) Pulse Ox O2 Delivery O2 Flow Rate FiO2 11/01/16 15:29 97.3 75 18 102/70 (81) 97 Room Air I&O Intake and Output 11/01/16 07:00 Intake Total 1680 ml Balance 1680 ml Intake Oral 1680 ml # Bowel Movements 1 Labs: Laboratory Tests Test 11/01/16 07:48 11/01/16 11:23 11/01/16 16:30 11/01/16 19:24 Glucose (Fingerstick) 120 mg/dL (70-99) H 180 mg/dL (70-99) H 167 mg/dL (70-99) H 225 mg/dL (70-99) H Current Medications: Meds: Current Medications Acetaminophen (Tylenol) 650 mg PRN Q6HRS PRN PO PAIN / TEMP; Start 10/30/16 at 01:15 Multi-Ingredient Ointment (Analgesic Skillman) 1 lyndon PRN QID PRN TP MUSCLE PAIN; Start 10/30/16 at 01:15 Al Hydroxide/Mg Hydroxide (Mylanta Plus Xs) 15 ml PRN AFTMEALHC PRN PO DYSPEPSIA; Start 10/30/16 at 01:15 Magnesium Hydroxide (Milk Of Magnesia) 2,400 mg PRN QHS PRN PO CONSTIPATION; Start 10/30/16 at 01:15 Benztropine Mesylate (Cogentin) 0.5 mg BID PO Last administered on 11/01/16 19: 23; Start 10/30/16 at 09:00 Clonazepam (KlonoPIN) 0.5 mg DAILY PO ; Start 10/30/16 at 09:00; Stop 10/30/16 at 09:00; Status DC Clonazepam (KlonoPIN) 1 mg BID PO Last administered on 11/01/16 19:33; Start at 09:00 Divalproex Sodium (Depakote Er) 500 mg BID PO ; Start 10/30/16 at 09:00; Stop 10/30/16 at 09:00; Status DC Quetiapine Fumarate (SEROquel) 150 mg QID PO Last administered on 10/31/16 20: 07; Start 10/30/16 at 09:00; Stop 11/01/16 at 07:59; Status DC Risperidone (RisperDAL CONSTA) 50 mg Q2WKS IM Last administered on 10/30/16 14: 05; Start 10/30/16 at 09:00 Furosemide (Lasix) 60 mg BID92 PO Last administered on 11/01/16 15:04; Start at 09:00 Insulin Detemir (Levemir) 55 units QHS SQ Last administered on 10/31/16 20:32; Start 10/30/16 at 21:00 Albuterol/ Ipratropium (Duoneb) 3 ml PRN DAILY PRN NEB SHORTNESS OF BREATH; Start 10/30/16 at 01:15; Stop 10/30/16 at 02:29; Status DC Potassium Chloride (KCl Oral Soln) 20 meq BIDWMEALS PO Last administered on 11/01 16:48; Start 10/30/16 at 08:00 Metformin HCl (Glucophage) 1,000 mg BIDWMEALS PO Last administered on 11/01/16 16:48; Start 10/30/16 at 08:00 Clonazepam (KlonoPIN) 0.5 mg DAILY16 PO Last administered on 11/01/16 15:04; Start 10/30/16 at 16:00 Divalproex Sodium (Depakote Er) 500 mg QID PO Last administered on 10/31/16 17: 09; Start 10/30/16 at 09:00; Stop 10/31/16 at 17:43; Status DC Albuterol/ Ipratropium (Duoneb) 3 ml PRN QID PRN NEB SHORTNESS OF BREATH; Start 10/31/16 at 01:15 Olanzapine (ZyPREXA ZYDIS) 5 mg PRN Q2HR PRN PO PSYCHOSIS; Start 10/30/16 at 05: 15 Mirtazapine (Remeron) 15 mg QHS PO Last administered on 11/01/16 19:23; Start 10/30/16 at 21:00 Buspirone HCl (Buspar) 5 mg BID PO Last administered on 11/01/16 19:23; Start 10/30/16 at 21:00 Vitamin D (Vitamin D3) 50,000 unit WEEKLY PO Last administered on 11/01/16 08: 02; Start 11/01/16 at 09:00 Divalproex Sodium (Depakote Sprinkles) 1,000 mg BID PO Last administered on 11/01 19:34; Start 10/31/16 at 21:00 Haloperidol Lactate (Haldol Oral) 5 mg DAILY PO Last administered on 11/01/16 08:02; Start 11/01/16 at 09:00 Active Scripts Active Reported Seroquel (Quetiapine Fumarate) 100 Mg Tablet 150 Mg PO QID Risperdal Consta (Risperidone Microspheres) 50 Mg/2 Ml Disp.syrin 50 Mg IM Q2WKS Potassium Chloride Oral Liquid (Potassium Chloride) 20 Meq/15 Ml Liquid 20 Meq PO BID Metformin Hcl 1,000 Mg Tablet 1,000 Mg PO BIDWMEALS Levemir Flextouch (Insulin Detemir) 100 Unit/1 Ml Insuln.pen 55 Unit SQ QHS Haldol (Haloperidol Lactate) 5 Mg/1 Ml Ampul 5 Mg IM PRN Q6HRS PRN Clonazepam 1 Mg Tablet 1 Mg PO BID Furosemide 40 Mg Tablet 60 Mg PO [id number] Hold for SBP less than 100. After held dose, reassess in 2 hours. If SBP is above threshold, administer dose as ordered. If SBP is below threshold, contact provider for additional instructions. Duoneb 0.5-3(2.5) Mg/3 Ml (Albuterol/Ipratropium) 3 Ml Ampul.neb 3 Ml NEB PRN QID PRN Depakote Er (Divalproex Sodium) 500 Mg Tab.er.24h 500 Mg PO QID Give with food. DO NOT CRUSH OR CHEW Cyanocobalamin Injection (Cyanocobalamin (Vitamin B-12)) 1,000 Mcg/1 Ml Vial 2, 000 Mcg IM [id number] Clonazepam 0.5 Mg Tablet 0.5 Mg PO DAILY16 Benztropine Mesylate 0.5 Mg Tablet 0.5 Mg PO BID Diagnosis: Problems: (1) Schizophrenia (2) Acute exacerbation of psychosis (3) Depression (4) Schizoaffective disorder (5) Anxiety disorder (6) Impulse control disorder (7) Schizoaffective disorder, chronic condition with acute exacerbation KALIN STARKS MD Nov 01, 2016 21:08
--- NOTE | 2016-11-01 23:52 | NUR ---
Behavior Intervention Response and Plan: BIRP Note: Behavior: Assumed Care of patient, patient located in Day Room at shift change. Patient exhibited the following behavior Compulsive, Demanding, Irritable, Resistive, Agitated. Brief assessment on rounds of vital signs, medication needs, lab studies, and pain. Treatment plan problems: DTO and Fall Risk. Intervention: Patient assessed and the following interventions initiated safety checks 15 Minute Checks Cognitive Assessment , Head to toe Assessment , Medications, Oral Hydration, and Nutrition. Response: After interactions and interventions patient responded in the following manner, Calm , Compliant ,Cooperative. Continue to assess behaviors and condition will continue to monitor throughout the shift as needed. Plan: Continue to monitor Master Treatment Plan for patient's progress toward short term goals of Decreased Aggression, Decreased Agitation, Medication Compliance custodial goals to return to previous living setting vs placement. Continue to assess patient for changes in above assessment. Monitor for medication needs, pain, and safety concerns. Hourly rounding performed to ensure safe environment.
[2016-11-02 06:21] VITALS: BP 132/75
[2016-11-02] MEDS: BENZTROPINE MESYLATE 0.5 MG TABLET PO SCH ×2 (07:48→19:47)
[2016-11-02] MEDS: busPIRone 5 MG TABLET. PO SCH ×2 (07:48→19:47)
[2016-11-02] MEDS: metFORMIN 500 MG TABLET PO SCH ×2 (07:48→17:14)
[2016-11-02] MEDS: FUROSEMIDE 40 MG TABLET PO SCH ×2 (07:48→15:09)
[2016-11-02] MEDS: DIVALPROEX 125 MG CAP.SPRINK PO SCH ×2 (07:48→19:49)
[2016-11-02] MEDS: POTASSIUM CHLORIDE 20 MEQ/15 ML ORAL LIQUID. PO SCH ×2 (07:49→17:00)
[2016-11-02] MEDS: clonazePAM 1 MG TABLET PO SCH ×2 (07:53→19:48)
[2016-11-02] MEDS: HALOPERIDOL 10 MG/5 ML ORAL.CONC. PO SCH (07:53)
--- NOTE | 2016-11-02 09:05 | NUR ---
ACTIVITY THERAPY ASSESSMENT Completed based on observation and interview on this day at this time on the patio. Pt. was pleasant and recognized ENT NURSE. Pt's speech was difficult to understand but she repeated herself when asked to for clarification. She stated she liked to paint, play with cher candles (as she acted it out) and sparklers. She said she liked music but does not like Bingo. Pt. stated it was the year 1942, she was 28 years old and had 114 kids. At times Pt. can be uncooperative and non compliant with staff. She hoots and hollers randomly which can be disruptive to the groups. During assessment, she loudly said "get your hands off me." When asked to clarify who she was talking to, Pt. stated "Manuel". She has minimal conversation or meaningful interaction with peers. Initial goal is aimed to increase positive social interaction: Pt. will participate in all groups she is invited to, in a peaceful manner.
--- NOTE | 2016-11-02 11:02 | NUR ---
Behavior Intervention Response and Plan: BIRP Note: Behavior: Assumed Care of patient, patient located in Day Room at shift change. Patient exhibited the following behavior Irritable, Resistive, Delusions. Brief assessment on rounds of vital signs, medication needs, lab studies, and pain. Treatment plan problems . Intervention: Patient assessed and the following interventions initiated safety checks 15 Minute Checks Cognitive Assessment , Head to toe Assessment , Medications. Response: After interactions and interventions patient responded in the following manner, Calm , Compliant ,Cooperative. Continue to assess behaviors and condition will continue to monitor throughout the shift as needed. Plan: Continue to monitor Master Treatment Plan for patient's progress toward short term goals of Decreased Agitation, Decreased Aggression, fdc goals to return to previous living setting vs placement. Continue to assess patient for changes in above assessment. Monitor for medication needs, pain, and safety concerns. Hourly rounding performed to ensure safe environment.
--- NOTE | 2016-11-02 14:00 | NUR ---
THERAPEUTIC RECREATION GROUP NOTE TITLE :Movie ACTIVITY : Activities and Games GOAL : Increase alertness/focus, decrease stress DURATION : 90 Minutes RESPONSE : No participation.
[2016-11-02 14:11] LABS: TOTAL PROTEIN 9.3 g/dL (6.4-8.2)
[2016-11-02 14:12] LABS: ALBUMIN 3.3 g/dL (3.4-5.0); ALBUMIN/GLOBULIN RATIO 0.6 (1.0-1.7); ALK PHOS 129 U/L (46-116); ALT (SGPT) 20 U/L (14-59); ANION GAP 11 (6-14); AST (SGOT) 14 U/L (15-37); BLOOD UREA NITROGEN 25 mg/dL (7-20); BUN/CREATININE RATIO 23 (6-20); CALCIUM 9.6 mg/dL (8.5-10.1); CARBON DIOXIDE 33 mmol/L (21-32); CHLORIDE 97 mmol/L (98-107); CREATININE 1.1 mg/dL (0.6-1.0); GFR 50.3; GLUCOSE 125 mg/dL (70-99); POTASSIUM 4.1 mmol/L (3.5-5.1); SODIUM 141 mmol/L (136-145); TOTAL BILIRUBIN 0.2 mg/dL (0.2-1.0)
[2016-11-02 14:13] LABS: VAL ACID 116 mcg/mL (50-100)
[2016-11-02 14:31] LABS: HEMATOCRIT 45.3 % (36.0-47.0); HEMOGLOBIN 13.8 g/dL (12.0-15.5); RED BLOOD COUNT 5.63 x10^6/uL (3.50-5.40); RED CELL DISTRIBUTION WIDTH 18.8 % (11.5-14.5); WHITE BLOOD COUNT 8.3 x10^3/uL (4.0-11.0)
[2016-11-02] MEDS: clonazePAM 0.5 MG TABLET PO SCH (15:09)
[2016-11-02 15:27] VITALS: BP 124/77
[2016-11-02] MEDS: MIRTAZAPINE 15 MG TABLET PO SCH (19:48)
--- NOTE | 2016-11-02 20:00 | NUR ---
Behavior Intervention Response and Plan: BIRP Note: Behavior: Assumed Care of patient, patient located in Day Room at shift change. Patient exhibited the following behavior Irritable, Resistive, Delusions. Brief assessment on rounds of vital signs, medication needs, lab studies, and pain. Treatment plan problems: 1-2 . Intervention: Patient assessed and the following interventions initiated safety checks 15 Minute Checks Cognitive Assessment , Head to toe Assessment , Medications, Oral hydration, and Nutrition. Response: After interactions and interventions patient responded in the following manner, Calm , Compliant ,Cooperative. Continue to assess behaviors and condition will continue to monitor throughout the shift as needed. 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 Continue to assess patient for changes in above assessment. Monitor for medication needs, pain, and safety concerns. Hourly rounding performed to ensure safe environment.
--- NOTE | 2016-11-02 21:30 | PDOC ---
Exam Napoleon Demential Exam: Napoleon Note: Please also refer to the separate dictated note~for this date of service dictated separately.~Patient seen individually. Discussed the patient with Nursing staff reviewed the chart.~Reviewed interim history and current functioning. Reviewed vital signs,~Labs/ Radiology~and current medications noted below. Continue current treatment with the changes noted in the dictated addendum note Assessment: Vital Signs: Vital Signs Date Time Temp Pulse Resp B/P (MAP) Pulse Ox O2 Delivery O2 Flow Rate FiO2 11/02/16 15:27 98.0 88 20 124/77 (93) 93 Room Air I&O Intake and Output 11/02/16 07:00 Intake Total 840 ml Balance 840 ml Intake Oral 840 ml # Bowel Movements 3 Labs: Laboratory Tests Test 11/02/16 07:14 11/02/16 11:17 11/02/16 13:51 11/02/16 17:01 Glucose (Fingerstick) 123 mg/dL (70-99) H 160 mg/dL (70-99) H 185 mg/dL (70-99) H White Blood Count 8.3 x10^3/uL (4.0-11.0) Red Blood Count 5.63 x10^6/uL (3.50-5.40) H Hemoglobin 13.8 g/dL (12.0-15.5) Hematocrit 45.3 % (36.0-47.0) Mean Corpuscular Volume 80 fL (79-100) Mean Corpuscular Hemoglobin 25 pg (25-35) Mean Corpuscular Hemoglobin Concent 31 g/dL (31-37) Red Cell Distribution Width 18.8 % (11.5-14.5) H Platelet Count 233 x10^3/uL (140-400) Sodium Level 141 mmol/L (136-145) Potassium Level 4.1 mmol/L (3.5-5.1) Chloride Level 97 mmol/L (98-107) L Carbon Dioxide Level 33 mmol/L (21-32) H Anion Gap 11 (6-14) Blood Urea Nitrogen 25 mg/dL (7-20) H Creatinine 1.1 mg/dL (0.6-1.0) H Estimated GFR (Cockcroft-Gault) 50.3 BUN/Creatinine Ratio 23 (6-20) H Glucose Level 125 mg/dL (70-99) H Calcium Level 9.6 mg/dL (8.5-10.1) Total Bilirubin 0.2 mg/dL (0.2-1.0) Aspartate Amino Transferase (AST) 14 U/L (15-37) L Alanine Aminotransferase (ALT) 20 U/L (14-59) Alkaline Phosphatase 129 U/L (46-116) H Total Protein 9.3 g/dL (6.4-8.2) H Albumin 3.3 g/dL (3.4-5.0) L Albumin/Globulin Ratio 0.6 (1.0-1.7) L Valproic Acid Level 116 mcg/mL (50-100) H Valproic Acid Last Dose Date 11/02/2016 Valproic Acid Last Dose Time 2100 Test 11/02/16 19:33 Glucose (Fingerstick) 191 mg/dL (70-99) H Current Medications: Meds: Current Medications Acetaminophen (Tylenol) 650 mg PRN Q6HRS PRN PO PAIN / TEMP; Start 10/30/16 at 01:15 Multi-Ingredient Ointment (Analgesic [place]) 1 lyndon PRN QID PRN TP MUSCLE PAIN; Start 10/30/16 at 01:15 Al Hydroxide/Mg Hydroxide (Mylanta Plus Xs) 15 ml PRN AFTMEALHC PRN PO DYSPEPSIA; Start 10/30/16 at 01:15 Magnesium Hydroxide (Milk Of Magnesia) 2,400 mg PRN QHS PRN PO CONSTIPATION; Start 10/30/16 at 01:15 Benztropine Mesylate (Cogentin) 0.5 mg BID PO Last administered on 11/02/16 19: 47; Start 10/30/16 at 09:00 Clonazepam (KlonoPIN) 0.5 mg DAILY PO ; Start 10/30/16 at 09:00; Stop 10/30/16 at 09:00; Status DC Clonazepam (KlonoPIN) 1 mg BID PO Last administered on 11/02/16 19:48; Start at 09:00 Divalproex Sodium (Depakote Er) 500 mg BID PO ; Start 10/30/16 at 09:00; Stop 10/30/16 at 09:00; Status DC Quetiapine Fumarate (SEROquel) 150 mg QID PO Last administered on 10/31/16 20: 07; Start 10/30/16 at 09:00; Stop 11/01/16 at 07:59; Status DC Risperidone (RisperDAL CONSTA) 50 mg Q2WKS IM Last administered on 10/30/16 14: 05; Start 10/30/16 at 09:00 Furosemide (Lasix) 60 mg BID92 PO Last administered on 11/02/16 15:09; Start at 09:00 Insulin Detemir (Levemir) 55 units QHS SQ Last administered on 10/31/16 20:32; Start 10/30/16 at 21:00 Albuterol/ Ipratropium (Duoneb) 3 ml PRN DAILY PRN NEB SHORTNESS OF BREATH; Start 10/30/16 at 01:15; Stop 10/30/16 at 02:29; Status DC Potassium Chloride (KCl Oral Soln) 20 meq BIDWMEALS PO Last administered on 11/02 07:49; Start 10/30/16 at 08:00 Metformin HCl (Glucophage) 1,000 mg BIDWMEALS PO Last administered on 11/02/16 17:14; Start 10/30/16 at 08:00 Clonazepam (KlonoPIN) 0.5 mg DAILY16 PO Last administered on 11/02/16 15:09; Start 10/30/16 at 16:00 Divalproex Sodium (Depakote Er) 500 mg QID PO Last administered on 10/31/16 17: 09; Start 10/30/16 at 09:00; Stop 10/31/16 at 17:43; Status DC Albuterol/ Ipratropium (Duoneb) 3 ml PRN QID PRN NEB SHORTNESS OF BREATH; Start 10/31/16 at 01:15 Olanzapine (ZyPREXA ZYDIS) 5 mg PRN Q2HR PRN PO PSYCHOSIS; Start 10/30/16 at 05: 15 Mirtazapine (Remeron) 15 mg QHS PO Last administered on 11/02/16 19:48; Start 10/30/16 at 21:00 Buspirone HCl (Buspar) 5 mg BID PO Last administered on 11/02/16 19:47; Start 10/30/16 at 21:00 Vitamin D (Vitamin D3) 50,000 unit WEEKLY PO Last administered on 11/01/16 08: 02; Start 11/01/16 at 09:00 Divalproex Sodium (Depakote Sprinkles) 1,000 mg BID PO Last administered on 11/02 07:48; Start 10/31/16 at 21:00; Stop 11/02/16 at 18:49; Status DC Haloperidol Lactate (Haldol Oral) 5 mg DAILY PO Last administered on 11/02/16 07:53; Start 11/01/16 at 09:00 Divalproex Sodium (Depakote Sprinkles) 750 mg BID PO Last administered on 19:49; Start 11/02/16 at 21:00 Active Scripts Active Reported Seroquel (Quetiapine Fumarate) 100 Mg Tablet 150 Mg PO QID Risperdal Consta (Risperidone Microspheres) 50 Mg/2 Ml Disp.syrin 50 Mg IM Q2WKS Potassium Chloride Oral Liquid (Potassium Chloride) 20 Meq/15 Ml Liquid 20 Meq PO BID Metformin Hcl 1,000 Mg Tablet 1,000 Mg PO BIDWMEALS Levemir Flextouch (Insulin Detemir) 100 Unit/1 Ml Insuln.pen 55 Unit SQ QHS Haldol (Haloperidol Lactate) 5 Mg/1 Ml Ampul 5 Mg IM PRN Q6HRS PRN Clonazepam 1 Mg Tablet 1 Mg PO BID Furosemide 40 Mg Tablet 60 Mg PO [id number] Hold for SBP less than 100. After held dose, reassess in 2 hours. If SBP is above threshold, administer dose as ordered. If SBP is below threshold, contact provider for additional instructions. Duoneb 0.5-3(2.5) Mg/3 Ml (Albuterol/Ipratropium) 3 Ml Ampul.neb 3 Ml NEB PRN QID PRN Depakote Er (Divalproex Sodium) 500 Mg Tab.er.24h 500 Mg PO QID Give with food. DO NOT CRUSH OR CHEW Cyanocobalamin Injection (Cyanocobalamin (Vitamin B-12)) 1,000 Mcg/1 Ml Vial 2, 000 Mcg IM [id number] Clonazepam 0.5 Mg Tablet 0.5 Mg PO DAILY16 Benztropine Mesylate 0.5 Mg Tablet 0.5 Mg PO BID Diagnosis: Problems: (1) Schizophrenia (2) Acute exacerbation of psychosis (3) Depression (4) Schizoaffective disorder (5) Anxiety disorder (6) Impulse control disorder (7) Schizoaffective disorder, chronic condition with acute exacerbation KALIN STARKS MD Nov 02, 2016 21:30
[2016-11-02] MEDS: INSULIN DETEMIR 300 UNITS/3 ML INSULN.PEN. SQ SCH (22:20)
--- NOTE | 2016-11-03 02:52 | PN ---
DATE: 10/31/2016 This is a late entry for 10/31/2016, covers the elements not covered in my initial note. SUBJECTIVE: The patient slept 5-3/4 hours, she has been combative, hostile, angry the previous evening, refused her medications the previous evening, delusional, yelling, combative. She has been also very obsessive compulsive tapping the cup counting, having repetitive movements, noncompliance with her psychotropics makes her treatment even more complicated. REVIEW OF SYSTEMS: Ambulation impaired, in her wheelchair. No CV, , pulmonary, eye system symptoms on review. Reliability poor. MENTAL STATUS EXAM: Oriented to herself and situation. Speech coherent, at times pressured. Abstraction fair, computation impaired, language function intact, attention span short. Mood and affect remains labile. LABORATORY DATA: Reviewed. IMPRESSION: Schizoaffective disorder, bipolar type, mixed with psychotic features. Rest diagnoses unchanged. PLAN: Change Seroquel to liquid Haldol 5 mg daily. Change Depakote ER 500 mg 4 times a day to Sprinkles 1000 mg twice a day. Check labs level on the valproic acid, adjust to reach a therapeutic level. Initial level is 51, but this could be compromised by noncompliance and we will have to repeat it. KALIN STARKS MD DR: TRACIE/karli JOB#: [id number] / [id number]
--- NOTE | 2016-11-03 03:51 | PN ---
DATE: 11/01/2016 PSYCHIATRIC PROGRESS NOTE This is a late entry of 11/01/2016, covers elements not covered in my initial note. SUBJECTIVE: The patient was also staffed at a treatment team meeting with the entire team. Appetite 100%, sleeping about 3-1/2 hours, remains intermittently hostile, agitated, delusional, resistive to medications, but little better since we started Haldol. REVIEW OF SYSTEMS: Ambulation impaired. No CV, , pulmonary, eye system symptoms on review. MENTAL STATUS EXAM: Oriented to herself and situation. Speech is coherent, has some latency, loud at times. Abstraction fair, computation impaired, language function intact. Mood and affect, intermittently labile. LABORATORY DATA: Reviewed. IMPRESSION: Unchanged from initial note, schizoaffective disorder, bipolar type, mixed with psychotic features. PLAN: Continue current psychotropics mentioned in my initial note. Check CBC, CMP, valproic acid level. Adjust as clinically indicated. MAN Mary STARKS MD DR: TRACIE/karli JOB#: [id number] / [id number]
[2016-11-03 05:00] VITALS: BP 118/74
[2016-11-03] MEDS: DIVALPROEX 125 MG CAP.SPRINK PO SCH ×2 (08:20→21:20)
[2016-11-03] MEDS: metFORMIN 500 MG TABLET PO SCH ×2 (08:20→17:00)
[2016-11-03] MEDS: POTASSIUM CHLORIDE 20 MEQ/15 ML ORAL LIQUID. PO SCH ×2 (08:20→17:00)
[2016-11-03] MEDS: busPIRone 5 MG TABLET. PO SCH ×2 (08:20→21:17)
[2016-11-03] MEDS: BENZTROPINE MESYLATE 0.5 MG TABLET PO SCH ×2 (08:20→21:17)
[2016-11-03] MEDS: clonazePAM 1 MG TABLET PO SCH ×2 (08:23→21:17)
[2016-11-03] MEDS: HALOPERIDOL 10 MG/5 ML ORAL.CONC. PO SCH (08:23)
[2016-11-03] MEDS: FUROSEMIDE 40 MG TABLET PO SCH ×2 (08:23→13:20)
--- NOTE | 2016-11-03 11:09 | PDOC ---
Exam Napoleon Demential Exam: Napoleon Note: Please also refer to the separate dictated note~for this date of service dictated separately.~Patient seen individually. Discussed the patient with Nursing staff reviewed the chart.~Reviewed interim history and current functioning. Reviewed vital signs,~Labs/ Radiology~and current medications noted below. Continue current treatment with the changes noted in the dictated addendum note Assessment: Vital Signs: Vital Signs Date Time Temp Pulse Resp B/P (MAP) Pulse Ox O2 Delivery O2 Flow Rate FiO2 11/03/16 05:00 97.8 81 16 118/74 (89) 96 Room Air I&O Intake and Output 11/03/16 07:00 Intake Total 1540 ml Balance 1540 ml Intake Oral 1540 ml # Bowel Movements 1 Labs: Laboratory Tests Test 11/02/16 11:17 11/02/16 13:51 11/02/16 17:01 11/02/16 19:33 Glucose (Fingerstick) 160 mg/dL (70-99) H 185 mg/dL (70-99) H 191 mg/dL (70-99) H White Blood Count 8.3 x10^3/uL (4.0-11.0) Red Blood Count 5.63 x10^6/uL (3.50-5.40) H Hemoglobin 13.8 g/dL (12.0-15.5) Hematocrit 45.3 % (36.0-47.0) Mean Corpuscular Volume 80 fL (79-100) Mean Corpuscular Hemoglobin 25 pg (25-35) Mean Corpuscular Hemoglobin Concent 31 g/dL (31-37) Red Cell Distribution Width 18.8 % (11.5-14.5) H Platelet Count 233 x10^3/uL (140-400) Sodium Level 141 mmol/L (136-145) Potassium Level 4.1 mmol/L (3.5-5.1) Chloride Level 97 mmol/L (98-107) L Carbon Dioxide Level 33 mmol/L (21-32) H Anion Gap 11 (6-14) Blood Urea Nitrogen 25 mg/dL (7-20) H Creatinine 1.1 mg/dL (0.6-1.0) H Estimated GFR (Cockcroft-Gault) 50.3 BUN/Creatinine Ratio 23 (6-20) H Glucose Level 125 mg/dL (70-99) H Calcium Level 9.6 mg/dL (8.5-10.1) Total Bilirubin 0.2 mg/dL (0.2-1.0) Aspartate Amino Transferase (AST) 14 U/L (15-37) L Alanine Aminotransferase (ALT) 20 U/L (14-59) Alkaline Phosphatase 129 U/L (46-116) H Total Protein 9.3 g/dL (6.4-8.2) H Albumin 3.3 g/dL (3.4-5.0) L Albumin/Globulin Ratio 0.6 (1.0-1.7) L Valproic Acid Level 116 mcg/mL (50-100) H Valproic Acid Last Dose Date 11/02/2016 Valproic Acid Last Dose Time 2100 Test 11/03/16 07:44 Glucose (Fingerstick) 129 mg/dL (70-99) H Current Medications: Meds: Current Medications Acetaminophen (Tylenol) 650 mg PRN Q6HRS PRN PO PAIN / TEMP; Start 10/30/16 at 01:15 Multi-Ingredient Ointment (Analgesic [place]) 1 lyndon PRN QID PRN TP MUSCLE PAIN; Start 10/30/16 at 01:15 Al Hydroxide/Mg Hydroxide (Mylanta Plus Xs) 15 ml PRN AFTMEALHC PRN PO DYSPEPSIA; Start 10/30/16 at 01:15 Magnesium Hydroxide (Milk Of Magnesia) 2,400 mg PRN QHS PRN PO CONSTIPATION; Start 10/30/16 at 01:15 Benztropine Mesylate (Cogentin) 0.5 mg BID PO Last administered on 11/03/16 08 :20; Start 10/30/16 at 09:00 Clonazepam (KlonoPIN) 0.5 mg DAILY PO ; Start 10/30/16 at 09:00; Stop 10/30/16 at 09:00; Status DC Clonazepam (KlonoPIN) 1 mg BID PO Last administered on 11/03/16 08:23; Start 10/30/16 at 09:00 Divalproex Sodium (Depakote Er) 500 mg BID PO ; Start 10/30/16 at 09:00; Stop 10/30/16 at 09:00; Status DC Quetiapine Fumarate (SEROquel) 150 mg QID PO Last administered on 10/31/16 20: 07; Start 10/30/16 at 09:00; Stop 11/01/16 at 07:59; Status DC Risperidone (RisperDAL CONSTA) 50 mg Q2WKS IM Last administered on 10/30/16 14: 05; Start 10/30/16 at 09:00 Furosemide (Lasix) 60 mg BID92 PO Last administered on 11/03/16 08:23; Start 10/30/16 at 09:00 Insulin Detemir (Levemir) 55 units QHS SQ Last administered on 11/02/16 22:20; Start 10/30/16 at 21:00 Albuterol/ Ipratropium (Duoneb) 3 ml PRN DAILY PRN NEB SHORTNESS OF BREATH; Start 10/30/16 at 01:15; Stop 10/30/16 at 02:29; Status DC Potassium Chloride (KCl Oral Soln) 20 meq BIDWMEALS PO Last administered on 08:20; Start 10/30/16 at 08:00 Metformin HCl (Glucophage) 1,000 mg BIDWMEALS PO Last administered on 08:20; Start 10/30/16 at 08:00 Clonazepam (KlonoPIN) 0.5 mg DAILY16 PO Last administered on 11/02/16 15:09; Start 10/30/16 at 16:00 Divalproex Sodium (Depakote Er) 500 mg QID PO Last administered on 10/31/16 17: 09; Start 10/30/16 at 09:00; Stop 10/31/16 at 17:43; Status DC Albuterol/ Ipratropium (Duoneb) 3 ml PRN QID PRN NEB SHORTNESS OF BREATH; Start 10/31/16 at 01:15 Olanzapine (ZyPREXA ZYDIS) 5 mg PRN Q2HR PRN PO PSYCHOSIS; Start 10/30/16 at 05: 15 Mirtazapine (Remeron) 15 mg QHS PO Last administered on 11/02/16 19:48; Start 10/30/16 at 21:00 Buspirone HCl (Buspar) 5 mg BID PO Last administered on 11/03/16 08:20; Start 10/30/16 at 21:00 Vitamin D (Vitamin D3) 50,000 unit WEEKLY PO Last administered on 11/01/16 08: 02; Start 11/01/16 at 09:00 Divalproex Sodium (Depakote Sprinkles) 1,000 mg BID PO Last administered on 11/02 07:48; Start 10/31/16 at 21:00; Stop 11/02/16 at 18:49; Status DC Haloperidol Lactate (Haldol Oral) 5 mg DAILY PO Last administered on 11/03/16 08:23; Start 11/01/16 at 09:00 Divalproex Sodium (Depakote Sprinkles) 750 mg BID PO Last administered on 08:20; Start 11/02/16 at 21:00 Active Scripts Active Reported Seroquel (Quetiapine Fumarate) 100 Mg Tablet 150 Mg PO QID Risperdal Consta (Risperidone Microspheres) 50 Mg/2 Ml Disp.syrin 50 Mg IM Q2WKS Potassium Chloride Oral Liquid (Potassium Chloride) 20 Meq/15 Ml Liquid 20 Meq PO BID Metformin Hcl 1,000 Mg Tablet 1,000 Mg PO BIDWMEALS Levemir Flextouch (Insulin Detemir) 100 Unit/1 Ml Insuln.pen 55 Unit SQ QHS Haldol (Haloperidol Lactate) 5 Mg/1 Ml Ampul 5 Mg IM PRN Q6HRS PRN Clonazepam 1 Mg Tablet 1 Mg PO BID Furosemide 40 Mg Tablet 60 Mg PO BID92 Hold for SBP less than 100. After held dose, reassess in 2 hours. If SBP is above threshold, administer dose as ordered. If SBP is below threshold, contact provider for additional instructions. Duoneb 0.5-3(2.5) Mg/3 Ml (Albuterol/Ipratropium) 3 Ml Ampul.neb 3 Ml NEB PRN QID PRN Depakote Er (Divalproex Sodium) 500 Mg Tab.er.24h 500 Mg PO QID Give with food. DO NOT CRUSH OR CHEW Cyanocobalamin Injection (Cyanocobalamin (Vitamin B-12)) 1,000 Mcg/1 Ml Vial 2, 000 Mcg IM [id number] Clonazepam 0.5 Mg Tablet 0.5 Mg PO DAILY16 Benztropine Mesylate 0.5 Mg Tablet 0.5 Mg PO BID Diagnosis: Problems: (1) Schizophrenia (2) Acute exacerbation of psychosis (3) Depression (4) Schizoaffective disorder (5) Anxiety disorder (6) Impulse control disorder (7) Schizoaffective disorder, chronic condition with acute exacerbation KALIN STARKS MD Nov 03, 2016 11:09
--- NOTE | 2016-11-03 12:37 | NUR ---
Behavior Intervention Response and Plan: BIRP Note: Behavior: Assumed Care of patient, patient located in Day Room at shift change. Patient exhibited the following behavior constantly asking for food and snacks, cooperative with assessment. Brief assessment on rounds of vital signs, medication needs, lab studies, and pain. Treatment plan problems: DTO and Fall Risk. Intervention: Patient assessed and the following interventions initiated safety checks 15 Minute Checks Cognitive Assessment , Head to toe Assessment , Medications, Oral Hydration, and Nutrition. Response: After interactions and interventions patient responded in the following manner, cooperative and compliant. Continue to assess behaviors and condition will continue to monitor throughout the shift as needed. 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 Continue to assess patient for changes in above assessment. Monitor for medication needs, pain, and safety concerns. Hourly rounding performed to ensure safe environment.
[2016-11-03 15:45] VITALS: BP 103/76
[2016-11-03] MEDS: clonazePAM 0.5 MG TABLET PO SCH (16:59)
[2016-11-03] MEDS: MIRTAZAPINE 15 MG TABLET PO SCH (21:17)
[2016-11-03] MEDS: INSULIN DETEMIR 300 UNITS/3 ML INSULN.PEN. SQ SCH (21:25)
--- NOTE | 2016-11-03 23:00 | NUR ---
Behavior Intervention Response and Plan: BIRP Note: Behavior: Assumed Care of patient, patient located in Day Room at shift change. Patient exhibited the following behavior Irritable, Resistive, Delusions. Brief assessment on rounds of vital signs, medication needs, lab studies, and pain. Treatment plan problems: 1-2 . Intervention: Patient assessed and the following interventions initiated safety checks 15 Minute Checks Cognitive Assessment , Head to toe Assessment , Medications, Oral hydration, and Nutrition. Response: After interactions and interventions patient responded in the following manner, Calm , Compliant ,Cooperative. Continue to assess behaviors and condition will continue to monitor throughout the shift as needed. 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 Continue to assess patient for changes in above assessment. Monitor for medication needs, pain, and safety concerns. Hourly rounding performed to ensure safe environment.
[2016-11-04 05:58] VITALS: BP 170/79
[2016-11-04] MEDS: HALOPERIDOL 10 MG/5 ML ORAL.CONC. PO SCH (08:48)
[2016-11-04] MEDS: metFORMIN 500 MG TABLET PO SCH ×3 (08:48→17:39)
[2016-11-04] MEDS: clonazePAM 1 MG TABLET PO SCH ×2 (08:49→20:01)
[2016-11-04] MEDS: DIVALPROEX 125 MG CAP.SPRINK PO SCH ×2 (08:49→19:58)
[2016-11-04] MEDS: FUROSEMIDE 40 MG TABLET PO SCH ×3 (08:49→14:56)
[2016-11-04] MEDS: busPIRone 5 MG TABLET. PO SCH ×2 (08:49→19:58)
[2016-11-04] MEDS: BENZTROPINE MESYLATE 0.5 MG TABLET PO SCH ×2 (08:49→19:58)
[2016-11-04] MEDS: POTASSIUM CHLORIDE 20 MEQ/15 ML ORAL LIQUID. PO SCH ×3 (09:26→17:39)
--- NOTE | 2016-11-04 10:19 | NUR ---
Behavior Intervention Response and Plan: BIRP Note: Behavior: Assumed Care of patient, patient located in Day Room at shift change. Patient exhibited the following behavior pt agreed to take medication then refused and was suspicious. Pt then took when aide "opened" a new one in front of her. Cooperative with assessment. Brief assessment on rounds of vital signs, medication needs, lab studies, and pain. Treatment plan problems: DTO and Fall Risk. Intervention: Patient assessed and the following interventions initiated safety checks 15 Minute Checks Cognitive Assessment , Head to toe Assessment , Medications, Oral Hydration, and Nutrition. Response: After interactions and interventions patient responded in the following manner, cooperative, calm, and compliant. Continue to assess behaviors and condition will continue to monitor throughout the shift as needed. Plan: Continue to monitor Master Treatment Plan for patient's progress toward short term goals of Decreased Aggression, Decreased Agitation, Medication Compliance [facility] goals to return to previous living setting vs placement. Continue to assess patient for changes in above assessment. Monitor for medication needs, pain, and safety concerns. Hourly rounding performed to ensure safe environment.
--- NOTE | 2016-11-04 10:56 | PN ---
DATE: 11/02/2016 SUBJECTIVE: This is a late entry 11/02/2016 covers elements not covered in my initial note. SUBJECTIVE: Overall, the patient is doing a little better and toileting better. She is still delusional and bizarre in her thought processes saying that she is a "robot." REVIEW OF SYSTEMS: Ambulation impaired, in her wheelchair. No CV, , pulmonary, or eye system symptoms on review. MENTAL STATUS EXAM: Oriented to herself and situation. Speech coherent and less pressured. Abstraction fair, computation impaired, and language function intact. Mood and affect still somewhat labile, but improved. IMPRESSION: Unchanged from initial note. PLAN: Valproic acid level 116. Reduced Depakote Sprinkles from 1000 b.i.d. to 75 b.i.d. Check labs level. Continue rest of the psychotropics. MAN Mary STARKS MD DR: TRACIE/karli JOB#: [id number] / [id number]
--- NOTE | 2016-11-04 10:58 | PN ---
DATE: 11/03/2016 This note covers elements not covered in my initial note. Per nursing report, the patient has been manipulative per nursing staff, repeating things that other are saying "I want napkin, I want coffee." REVIEW OF SYSTEMS: Ambulation impaired, in her wheelchair. No CV, , pulmonary, eye system symptoms on review. MENTAL STATUS EXAM: Oriented to herself and situation. Speech coherent, less pressured. Abstraction fair, computation impaired. Language function intact. Mood and affect showing improvement, less labile. LABORATORY DATA: Reviewed. IMPRESSION: Unchanged from initial note. PLAN: Continue current psychotropics including the reduced Depakote. Follow labs level, adjust as indicated. KALIN STARKS MD DR: TRACIE/karli JOB#: [id number] / [id number]
[2016-11-04 11:11] VITALS: BP 132/79
[2016-11-04] MEDS: clonazePAM 0.5 MG TABLET PO SCH ×2 (14:13→14:57)
[2016-11-04 16:11] VITALS: BP 132/81
[2016-11-04] MEDS: MIRTAZAPINE 15 MG TABLET PO SCH (19:58)
[2016-11-04] MEDS: INSULIN DETEMIR 300 UNITS/3 ML INSULN.PEN. SQ SCH (20:03)
--- NOTE | 2016-11-04 21:07 | PDOC ---
Exam Napoleon Demential Exam: Napoleon Note: Please also refer to the separate dictated note~for this date of service dictated separately.~Patient seen individually. Discussed the patient with Nursing staff reviewed the chart.~Reviewed interim history and current functioning. Reviewed vital signs,~Labs/ Radiology~and current medications noted below. Continue current treatment with the changes noted in the dictated addendum note Assessment: Vital Signs: Vital Signs Date Time Temp Pulse Resp B/P (MAP) Pulse Ox O2 Delivery O2 Flow Rate FiO2 11/04/16 16:11 97.8 83 18 132/81 (98) 95 Room Air I&O Intake and Output 11/04/16 07:00 Intake Total 600 ml Balance 600 ml Intake Oral 600 ml Labs: Laboratory Tests Test 11/04/16 07:24 11/04/16 11:49 11/04/16 16:47 11/04/16 19:17 Glucose (Fingerstick) 68 mg/dL (70-99) L 169 mg/dL (70-99) H 101 mg/dL (70-99) H 100 mg/dL (70-99) H Current Medications: Meds: Current Medications Acetaminophen (Tylenol) 650 mg PRN Q6HRS PRN PO PAIN / TEMP; Start 10/30/16 at 01:15 Multi-Ingredient Ointment (Analgesic [place]) 1 lyndon PRN QID PRN TP MUSCLE PAIN; Start 10/30/16 at 01:15 Al Hydroxide/Mg Hydroxide (Mylanta Plus Xs) 15 ml PRN AFTMEALHC PRN PO DYSPEPSIA; Start 10/30/16 at 01:15 Magnesium Hydroxide (Milk Of Magnesia) 2,400 mg PRN QHS PRN PO CONSTIPATION; Start 10/30/16 at 01:15 Benztropine Mesylate (Cogentin) 0.5 mg BID PO Last administered on 11/04/16t 19 :58; Start 10/30/16 at 09:00 Clonazepam (KlonoPIN) 0.5 mg DAILY PO ; Start 10/30/16 at 09:00; Stop 10/30/16 at 09:00; Status DC Clonazepam (KlonoPIN) 1 mg BID PO Last administered on 11/04/16 20:01; Start 10/30/16 at 09:00 Divalproex Sodium (Depakote Er) 500 mg BID PO ; Start 10/30/16 at 09:00; Stop 10/30/16 at 09:00; Status DC Quetiapine Fumarate (SEROquel) 150 mg QID PO Last administered on 10/31/16 20: 07; Start 10/30/16 at 09:00; Stop 11/01/16 at 07:59; Status DC Risperidone (RisperDAL CONSTA) 50 mg Q2WKS IM Last administered on 10/30/16 14: 05; Start 10/30/16 at 09:00 Furosemide (Lasix) 60 mg BID92 PO Last administered on 11/04/16 08:49; Start 10/30/16 at 09:00 Insulin Detemir (Levemir) 55 units QHS SQ Last administered on 11/04/16 20:03 ; Start 10/30/16 at 21:00 Albuterol/ Ipratropium (Duoneb) 3 ml PRN DAILY PRN NEB SHORTNESS OF BREATH; Start 10/30/16 at 01:15; Stop 10/30/16 at 02:29; Status DC Potassium Chloride (KCl Oral Soln) 20 meq BIDWMEALS PO Last administered on 17:00; Start 10/30/16 at 08:00 Metformin HCl (Glucophage) 1,000 mg BIDWMEALS PO Last administered on 08:48; Start 10/30/16 at 08:00 Clonazepam (KlonoPIN) 0.5 mg DAILY16 PO Last administered on 11/03/16 16:59; Start 10/30/16 at 16:00 Divalproex Sodium (Depakote Er) 500 mg QID PO Last administered on 10/31/16 17: 09; Start 10/30/16 at 09:00; Stop 10/31/16 at 17:43; Status DC Albuterol/ Ipratropium (Duoneb) 3 ml PRN QID PRN NEB SHORTNESS OF BREATH; Start 10/31/16 at 01:15 Olanzapine (ZyPREXA ZYDIS) 5 mg PRN Q2HR PRN PO PSYCHOSIS Last administered on 11/03/16 21:19; Start 10/30/16 at 05:15 Mirtazapine (Remeron) 15 mg QHS PO Last administered on 11/04/16 19:58; Start 10/30/16 at 21:00 Buspirone HCl (Buspar) 5 mg BID PO Last administered on 11/04/16 19:58; Start 10/30/16 at 21:00 Vitamin D (Vitamin D3) 50,000 unit WEEKLY PO Last administered on 11/01/16 08: 02; Start 11/01/16 at 09:00 Divalproex Sodium (Depakote Sprinkles) 1,000 mg BID PO Last administered on 11/02 07:48; Start 10/31/16 at 21:00; Stop 11/02/16 at 18:49; Status DC Haloperidol Lactate (Haldol Oral) 5 mg DAILY PO Last administered on 11/04/16 08:48; Start 11/01/16 at 09:00; Stop 11/04/16 at 18:01; Status DC Divalproex Sodium (Depakote Sprinkles) 750 mg BID PO Last administered on 19:58; Start 11/02/16 at 21:00 Haloperidol Lactate (Haldol Oral) 7.5 mg DAILY PO ; Start 11/05/16 at 09:00 Active Scripts Active Reported Seroquel (Quetiapine Fumarate) 100 Mg Tablet 150 Mg PO QID Risperdal Consta (Risperidone Microspheres) 50 Mg/2 Ml Disp.syrin 50 Mg IM Q2WKS Potassium Chloride Oral Liquid (Potassium Chloride) 20 Meq/15 Ml Liquid 20 Meq PO BID Metformin Hcl 1,000 Mg Tablet 1,000 Mg PO BIDWMEALS Levemir Flextouch (Insulin Detemir) 100 Unit/1 Ml Insuln.pen 55 Unit SQ QHS Haldol (Haloperidol Lactate) 5 Mg/1 Ml Ampul 5 Mg IM PRN Q6HRS PRN Clonazepam 1 Mg Tablet 1 Mg PO BID Furosemide 40 Mg Tablet 60 Mg PO BID92 Hold for SBP less than 100. After held dose, reassess in 2 hours. If SBP is above threshold, administer dose as ordered. If SBP is below threshold, contact provider for additional instructions. Duoneb 0.5-3(2.5) Mg/3 Ml (Albuterol/Ipratropium) 3 Ml Ampul.neb 3 Ml NEB PRN QID PRN Depakote Er (Divalproex Sodium) 500 Mg Tab.er.24h 500 Mg PO QID Give with food. DO NOT CRUSH OR CHEW Cyanocobalamin Injection (Cyanocobalamin (Vitamin B-12)) 1,000 Mcg/1 Ml Vial 2, 000 Mcg IM [id number] Clonazepam 0.5 Mg Tablet 0.5 Mg PO DAILY16 Benztropine Mesylate 0.5 Mg Tablet 0.5 Mg PO BID Diagnosis: Problems: (1) Schizophrenia (2) Acute exacerbation of psychosis (3) Depression (4) Schizoaffective disorder (5) Anxiety disorder (6) Impulse control disorder (7) Schizoaffective disorder, chronic condition with acute exacerbation KALIN STARKS MD Nov 04, 2016 21:07
--- NOTE | 2016-11-05 00:07 | NUR ---
Behavior Intervention Response and Plan: BIRP Note: Behavior: Assumed Care of patient, patient located in Day Room at shift change. Patient exhibited the following behavior Irritable, Resistive, Delusions. Brief assessment on rounds of vital signs, medication needs, lab studies, and pain. Treatment plan problems: 1-2 . Intervention: Patient assessed and the following interventions initiated safety checks 15 Minute Checks Cognitive Assessment , Head to toe Assessment , Medications, Oral hydration, and Nutrition. Response: After interactions and interventions patient responded in the following manner, Calm , Compliant ,Cooperative. Continue to assess behaviors and condition will continue to monitor throughout the shift as needed. Plan: Continue to monitor Master Treatment Plan for patient's progress toward short term goals of Decreased Agitation, Decreased Aggression, joint terminal attack controller goals to return to previous living setting vs placement. Continue to assess patient for changes in above assessment. Monitor for medication needs, pain, and safety concerns. Hourly rounding performed to ensure safe environment.
[2016-11-05 06:12] VITALS: BP 104/58
[2016-11-05 07:23] LABS: BASO % 0 % (0-3); EOS # 0.1 x10^3/uL (0.0-0.7); EOS % 1 % (0-3); HEMATOCRIT 39.6 % (36.0-47.0); LYMPH # 1.7 x10^3/uL (1.0-4.8); LYMPH % 32 % (24-48); MEAN CORPUSCULAR HEMOGLOBIN 24 pg (25-35); MEAN CORPUSCULAR HGB CONC 30 g/dL (31-37); MEAN CORPUSCULAR VOLUME 80 fL (79-100); MONO # 0.5 x10^3/uL (0.0-1.1); MONO % 9 % (0-9); NEUT # 3.2 x10^3uL (1.8-7.7); NEUT % 58 % (31-73); PLATELET COUNT 187 x10^3/uL (140-400); RED BLOOD COUNT 4.94 x10^6/uL (3.50-5.40); RED CELL DISTRIBUTION WIDTH 18.6 % (11.5-14.5); WHITE BLOOD COUNT 5.4 x10^3/uL (4.0-11.0)
[2016-11-05 07:38] LABS: ALBUMIN 2.8 g/dL (3.4-5.0); ALBUMIN/GLOBULIN RATIO 0.6 (1.0-1.7); ALK PHOS 100 U/L (46-116); ALT (SGPT) 17 U/L (14-59); ANION GAP 1 (6-14); AST (SGOT) 13 U/L (15-37); BLOOD UREA NITROGEN 30 mg/dL (7-20); BUN/CREATININE RATIO 43 (6-20); CARBON DIOXIDE 41 mmol/L (21-32); CHLORIDE 100 mmol/L (98-107); CREATININE 0.7 mg/dL (0.6-1.0); GFR 84.8; GLUCOSE 45 mg/dL (70-99); MAGNESIUM 1.6 mg/dL (1.8-2.4); POTASSIUM 3.3 mmol/L (3.5-5.1); SODIUM 142 mmol/L (136-145); TOTAL BILIRUBIN 0.2 mg/dL (0.2-1.0); TOTAL PROTEIN 7.7 g/dL (6.4-8.2)
[2016-11-05 07:39] LABS: VAL ACID 80 mcg/mL (50-100)
[2016-11-05] MEDS: busPIRone 5 MG TABLET. PO SCH ×2 (08:33→19:40)
[2016-11-05] MEDS: POTASSIUM CHLORIDE 20 MEQ/15 ML ORAL LIQUID. PO SCH ×3 (08:33→17:46)
[2016-11-05] MEDS: metFORMIN 500 MG TABLET PO SCH ×3 (08:33→17:45)
[2016-11-05] MEDS: BENZTROPINE MESYLATE 0.5 MG TABLET PO SCH ×2 (08:34→19:40)
[2016-11-05] MEDS: FUROSEMIDE 40 MG TABLET PO SCH ×2 (08:34→13:27)
[2016-11-05] MEDS: DIVALPROEX 125 MG CAP.SPRINK PO SCH ×2 (08:34→19:40)
[2016-11-05] MEDS: clonazePAM 1 MG TABLET PO SCH ×2 (08:37→19:42)
[2016-11-05] MEDS: HALOPERIDOL 10 MG/5 ML ORAL.CONC. PO SCH (08:38)
--- NOTE | 2016-11-05 10:00 | NUR ---
THERAPEUTIC RECREATION GROUP NOTE TITLE :Color Your Flag ACTIVITY : Arts and Crafts GOAL : Increase creativity and fine motor functioning, reduce stress, anxiety. DURATION : Available for 90 minutes RESPONSE : No participation.
[2016-11-05] MEDS ORDERED: POTASSIUM CHLORIDE 20 MEQ TABLET.ER. PO ONE (10:30)
--- NOTE | 2016-11-05 10:54 | NUR ---
Behavior Intervention Response and Plan: BIRP Note: Behavior: Assumed Care of patient, patient located in Day Room at shift change. Patient exhibited the following behavior pt suspicious that medication is hid in food and is resistive at times. Cooperative with assessment. Brief assessment on rounds of vital signs, medication needs, lab studies, and pain. Treatment plan problems: DTO and Fall Risk. Intervention: Patient assessed and the following interventions initiated safety checks 15 Minute Checks Cognitive Assessment , Head to toe Assessment , Medications, Oral Hydration, and Nutrition. Response: After interactions and interventions patient responded in the following manner, cooperative, calm, and compliant. Continue to assess behaviors and condition will continue to monitor throughout the shift as needed. 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 Continue to assess patient for changes in above assessment. Monitor for medication needs, pain, and safety concerns. Hourly rounding performed to ensure safe environment.
[2016-11-05] MEDS: MAGNESIUM OXIDE 400 MG TABLET PO SCH (13:27)
--- NOTE | 2016-11-05 13:30 | NUR ---
THERAPEUTIC RECREATION GROUP NOTE TITLE :Musical Flags ACTIVITY : Activities and Games GOAL : Increase alertness/focus, socialization, group cohesion DURATION : 40 Minutes RESPONSE : Moderate participation. Pt. joined the group about half way through. Initially she said she did not want to play and ate her snack. When another patient passed her the flag she took it and passed it one. When it stopped on her, she asked what she likes to do for fun, she listed several card games. She was given two flags to wave to music for fun at the end and handed them in without resistance.
[2016-11-05 15:45] VITALS: BP 104/67
[2016-11-05 16:11] LABS: ALBUM 3.1 g/dL (2.9-4.4); ALPHA 1 0.2 g/dL (0.0-0.4); ALPHA 2 0.9 g/dL (0.4-1.0); BETA 1.5 g/dL (0.7-1.3); GAMMA 2.1 g/dL (0.4-1.8); PROTEIN TOTAL 7.7 g/dL (6.0-8.5); SPEP AG RATIO 0.7 (0.7-1.7)
[2016-11-05] MEDS: clonazePAM 0.5 MG TABLET PO SCH ×2 (17:00→17:45)
--- NOTE | 2016-11-05 17:46 | NUR ---
Pt was sleepy and did not take her 1700 medications.
[2016-11-05] MEDS: MIRTAZAPINE 15 MG TABLET PO SCH (19:40)
--- NOTE | 2016-11-05 20:00 | NUR ---
Behavior Intervention Response and Plan: BIRP Note: Behavior: Assumed Care of patient, patient located in Day Room at shift change. Patient exhibited the following behavior Irritable, Resistive, Delusions, Paranoid. Brief assessment on rounds of vital signs, medication needs, lab studies, and pain. Treatment plan problems: 1-2 . Intervention: Patient assessed and the following interventions initiated safety checks 15 Minute Checks Cognitive Assessment , Head to toe Assessment , Medications, Oral hydration, and Nutrition. Response: After interactions and interventions patient responded in the following manner, Calm , Compliant ,Cooperative. Continue to assess behaviors and condition will continue to monitor throughout the shift as needed. Plan: Continue to monitor Master Treatment Plan for patient's progress toward short term goals of Decreased Agitation, Decreased Aggression, senior living goals to return to previous living setting vs placement. Continue to assess patient for changes in above assessment. Monitor for medication needs, pain, and safety concerns. Hourly rounding performed to ensure safe environment.
[2016-11-05] MEDS: INSULIN DETEMIR 300 UNITS/3 ML INSULN.PEN. SQ SCH (21:00)
--- NOTE | 2016-11-05 23:08 | PDOC ---
Exam Napoleon Demential Exam: Napoleon Note: Please also refer to the separate dictated note~for this date of service dictated separately.~Patient seen individually. Discussed the patient with Nursing staff reviewed the chart.~Reviewed interim history and current functioning. Reviewed vital signs,~Labs/ Radiology~and current medications noted below. Continue current treatment with the changes noted in the dictated addendum note Assessment: Vital Signs: Vital Signs Date Time Temp Pulse Resp B/P (MAP) Pulse Ox O2 Delivery O2 Flow Rate FiO2 11/05/16 15:45 98.0 91 16 104/67 (79) 91 Room Air I&O Intake and Output 11/05/16 07:00 Intake Total 1290 ml Balance 1290 ml Intake Oral 1290 ml # Voids 1 Labs: Laboratory Tests Test 11/05/16 06:52 11/05/16 07:36 White Blood Count 5.4 x10^3/uL (4.0-11.0) Red Blood Count 4.94 x10^6/uL (3.50-5.40) Hemoglobin 12.0 g/dL (12.0-15.5) Hematocrit 39.6 % (36.0-47.0) Mean Corpuscular Volume 80 fL (79-100) Mean Corpuscular Hemoglobin 24 pg (25-35) L Mean Corpuscular Hemoglobin Concent 30 g/dL (31-37) L Red Cell Distribution Width 18.6 % (11.5-14.5) H Platelet Count 187 x10^3/uL (140-400) Neutrophils (%) (Auto) 58 % (31-73) Lymphocytes (%) (Auto) 32 % (24-48) Monocytes (%) (Auto) 9 % (0-9) Eosinophils (%) (Auto) 1 % (0-3) Basophils (%) (Auto) 0 % (0-3) Neutrophils # (Auto) 3.2 x10^3uL (1.8-7.7) Lymphocytes # (Auto) 1.7 x10^3/uL (1.0-4.8) Monocytes # (Auto) 0.5 x10^3/uL (0.0-1.1) Eosinophils # (Auto) 0.1 x10^3/uL (0.0-0.7) Basophils # (Auto) 0.0 x10^3/uL (0.0-0.2) Sodium Level 142 mmol/L (136-145) Potassium Level 3.3 mmol/L (3.5-5.1) L Chloride Level 100 mmol/L (98-107) Carbon Dioxide Level 41 mmol/L (21-32) H Anion Gap 1 (6-14) L Blood Urea Nitrogen 30 mg/dL (7-20) H Creatinine 0.7 mg/dL (0.6-1.0) Estimated GFR (Cockcroft-Gault) 84.8 BUN/Creatinine Ratio 43 (6-20) H Glucose Level 45 mg/dL (70-99) L Calcium Level 9.0 mg/dL (8.5-10.1) Magnesium Level 1.6 mg/dL (1.8-2.4) L Total Bilirubin 0.2 mg/dL (0.2-1.0) Aspartate Amino Transferase (AST) 13 U/L (15-37) L Alanine Aminotransferase (ALT) 17 U/L (14-59) Alkaline Phosphatase 100 U/L (46-116) Total Protein 7.7 g/dL (6.4-8.2) Albumin 2.8 g/dL (3.4-5.0) L Albumin/Globulin Ratio 0.6 (1.0-1.7) L Valproic Acid Level 80 mcg/mL (50-100) Valproic Acid Last Dose Date 11/04/16 Valproic Acid Last Dose Time 2100 Glucose (Fingerstick) 89 mg/dL (70-99) Current Medications: Meds: Current Medications Acetaminophen (Tylenol) 650 mg PRN Q6HRS PRN PO PAIN / TEMP; Start 10/30/16 at 01:15 Multi-Ingredient Ointment (Analgesic [place]) 1 lyndon PRN QID PRN TP MUSCLE PAIN; Start 10/30/16 at 01:15 Al Hydroxide/Mg Hydroxide (Mylanta Plus Xs) 15 ml PRN AFTMEALHC PRN PO DYSPEPSIA; Start 10/30/16 at 01:15 Magnesium Hydroxide (Milk Of Magnesia) 2,400 mg PRN QHS PRN PO CONSTIPATION; Start 10/30/16 at 01:15 Benztropine Mesylate (Cogentin) 0.5 mg BID PO Last administered on 11/05/16t 19 :40; Start 10/30/16 at 09:00 Clonazepam (KlonoPIN) 0.5 mg DAILY PO ; Start 10/30/16 at 09:00; Stop 10/30/16 at 09:00; Status DC Clonazepam (KlonoPIN) 1 mg BID PO Last administered on 11/05/16 19:42; Start 10/30/16 at 09:00 Divalproex Sodium (Depakote Er) 500 mg BID PO ; Start 10/30/16 at 09:00; Stop 10/30/16 at 09:00; Status DC Quetiapine Fumarate (SEROquel) 150 mg QID PO Last administered on 10/31/16 20: 07; Start 10/30/16 at 09:00; Stop 11/01/16 at 07:59; Status DC Risperidone (RisperDAL CONSTA) 50 mg Q2WKS IM Last administered on 10/30/16 14: 05; Start 10/30/16 at 09:00 Furosemide (Lasix) 60 mg BID92 PO Last administered on 11/05/16 13:27; Start 10/30/16 at 09:00 Insulin Detemir (Levemir) 55 units QHS SQ Last administered on 11/04/16 20:03 ; Start 10/30/16 at 21:00 Albuterol/ Ipratropium (Duoneb) 3 ml PRN DAILY PRN NEB SHORTNESS OF BREATH; Start 10/30/16 at 01:15; Stop 10/30/16 at 02:29; Status DC Potassium Chloride (KCl Oral Soln) 20 meq BIDWMEALS PO Last administered on 08:33; Start 10/30/16 at 08:00; Stop 11/05/16 at 10:08; Status DC Metformin HCl (Glucophage) 1,000 mg BIDWMEALS PO Last administered on 08:33; Start 10/30/16 at 08:00 Clonazepam (KlonoPIN) 0.5 mg DAILY16 PO Last administered on 11/03/16 16:59; Start 10/30/16 at 16:00 Divalproex Sodium (Depakote Er) 500 mg QID PO Last administered on 10/31/16 17: 09; Start 10/30/16 at 09:00; Stop 10/31/16 at 17:43; Status DC Albuterol/ Ipratropium (Duoneb) 3 ml PRN QID PRN NEB SHORTNESS OF BREATH; Start 10/31/16 at 01:15 Olanzapine (ZyPREXA ZYDIS) 5 mg PRN Q2HR PRN PO PSYCHOSIS Last administered on 11/03/16 21:19; Start 10/30/16 at 05:15 Mirtazapine (Remeron) 15 mg QHS PO Last administered on 11/05/16 19:40; Start 10/30/16 at 21:00 Buspirone HCl (Buspar) 5 mg BID PO Last administered on 11/05/16 19:40; Start 10/30/16 at 21:00 Vitamin D (Vitamin D3) 50,000 unit WEEKLY PO Last administered on 11/01/16 08: 02; Start 11/01/16 at 09:00 Divalproex Sodium (Depakote Sprinkles) 1,000 mg BID PO Last administered on 11/02 07:48; Start 10/31/16 at 21:00; Stop 11/02/16 at 18:49; Status DC Haloperidol Lactate (Haldol Oral) 5 mg DAILY PO Last administered on 11/04/16 08:48; Start 11/01/16 at 09:00; Stop 11/04/16 at 18:01; Status DC Divalproex Sodium (Depakote Sprinkles) 750 mg BID PO Last administered on 19:40; Start 11/02/16 at 21:00 Haloperidol Lactate (Haldol Oral) 7.5 mg DAILY PO Last administered on 08:38; Start 11/05/16 at 09:00 Potassium Chloride (KCl Oral Soln) 40 meq BIDWMEALS PO ; Start 11/05/16 at 17:00 Magnesium Oxide (Magnesium Oxide) 400 mg DAILYBFRLUN PO Last administered on 13:27; Start 11/05/16 at 11:30 Potassium Chloride (Klor-Con) 20 meq 1X ONCE PO Last administered on 13:27; Start 11/05/16 at 10:30; Stop 11/05/16 at 10:31; Status DC Active Scripts Active Reported Seroquel (Quetiapine Fumarate) 100 Mg Tablet 150 Mg PO QID Risperdal Consta (Risperidone Microspheres) 50 Mg/2 Ml Disp.syrin 50 Mg IM Q2WKS Potassium Chloride Oral Liquid (Potassium Chloride) 20 Meq/15 Ml Liquid 20 Meq PO BID Metformin Hcl 1,000 Mg Tablet 1,000 Mg PO BIDWMEALS Levemir Flextouch (Insulin Detemir) 100 Unit/1 Ml Insuln.pen 55 Unit SQ QHS Haldol (Haloperidol Lactate) 5 Mg/1 Ml Ampul 5 Mg IM PRN Q6HRS PRN Clonazepam 1 Mg Tablet 1 Mg PO BID Furosemide 40 Mg Tablet 60 Mg PO BID92 Hold for SBP less than 100. After held dose, reassess in 2 hours. If SBP is above threshold, administer dose as ordered. If SBP is below threshold, contact provider for additional instructions. Duoneb 0.5-3(2.5) Mg/3 Ml (Albuterol/Ipratropium) 3 Ml Ampul.neb 3 Ml NEB PRN QID PRN Depakote Er (Divalproex Sodium) 500 Mg Tab.er.24h 500 Mg PO QID Give with food. DO NOT CRUSH OR CHEW Cyanocobalamin Injection (Cyanocobalamin (Vitamin B-12)) 1,000 Mcg/1 Ml Vial 2, 000 Mcg IM [id number] Clonazepam 0.5 Mg Tablet 0.5 Mg PO DAILY16 Benztropine Mesylate 0.5 Mg Tablet 0.5 Mg PO BID Diagnosis: Problems: (1) Schizophrenia (2) Acute exacerbation of psychosis (3) Depression (4) Schizoaffective disorder (5) Anxiety disorder (6) Impulse control disorder (7) Schizoaffective disorder, chronic condition with acute exacerbation KALIN STARKS MD Nov 05, 2016 23:08
--- NOTE | 2016-11-05 23:51 | PN ---
DATE: 11/04/2016 PSYCHIATRIC PROGRESS NOTE This is late entry of 11/04/2016, covers elements not covered in my initial note. SUBJECTIVE: Per nursing report, the patient has been suspicious of medications, resistive, somewhat paranoid, refused Depakote evening of 11/05/2016. REVIEW OF SYSTEMS: Ambulation impaired, in her wheelchair. No CV, , pulmonary, eye system symptoms on review. MENTAL STATUS EXAMINATION: Oriented to herself and situation. Speech coherent, at times somewhat rapid, abstraction fair, computation impaired, language function intact. She does appear paranoid, suspicious, as I met with her, anxious. LABORATORY DATA: Reviewed. IMPRESSION: Schizoaffective disorder, bipolar type, mixed with psychotic features. PLAN: Continue psychotropics mentioned in my initial note including the Depakote, Klonopin, BuSpar and Cogentin. We will increase Haldol from 5 mg a day to 7.5 mg a day, continue Risperdal Consta, Remeron for now. KALIN STARKS MD DR: TRACIE/karli JOB#: [id number] / [id number]
[2016-11-06] MEDS: HALOPERIDOL 10 MG/5 ML ORAL.CONC. PO SCH (08:27)
[2016-11-06] MEDS: DIVALPROEX 125 MG CAP.SPRINK PO SCH ×2 (08:27→19:33)
[2016-11-06] MEDS: POTASSIUM CHLORIDE 20 MEQ/15 ML ORAL LIQUID. PO SCH ×2 (08:28→17:25)
[2016-11-06] MEDS: BENZTROPINE MESYLATE 0.5 MG TABLET PO SCH ×2 (08:29→19:32)
[2016-11-06] MEDS: clonazePAM 1 MG TABLET PO SCH ×2 (08:29→19:34)
[2016-11-06] MEDS: FUROSEMIDE 40 MG TABLET PO SCH ×2 (08:29→14:13)
[2016-11-06] MEDS: busPIRone 5 MG TABLET. PO SCH ×2 (08:29→19:32)
[2016-11-06] MEDS: metFORMIN 500 MG TABLET PO SCH ×2 (08:30→17:25)
[2016-11-06] MEDS: MAGNESIUM OXIDE 400 MG TABLET PO SCH (08:30)
--- NOTE | 2016-11-06 09:00 | NUR ---
THERAPEUTIC RECREATION GROUP NOTE TITLE :[employer] Ball Bop ACTIVITY : Movement/ Exercise GOAL : Increase morale, attention, endurance, socialization. Decrease stress/anxiety. DURATION : 50 Minutes RESPONSE : No participation.
--- NOTE | 2016-11-06 11:30 | NUR ---
THERAPEUTIC RECREATION GROUP NOTE TITLE :Movement to Music: Flexibility ACTIVITY : Movement/ Exercise GOAL : Increase morale, attention, flexibility. Decrease stress/anxiety. DURATION : 20 Minutes RESPONSE : Full participation. Pt. needed no prompting to stay on task. She was able to follow along with moves. She yelled across the room a couple times and needed redirection to sit quietly. She also needed redirection to put her walker on the ground instead of threatening to push it at a male patient who would not leave her alone. Male patient swatted a rolled newspaper at her walker. Pt. did not retaliate and remained calm as staff redirected male patient. Towards the end of the session, EQUIPMENT VALIDATION ENGINEER danced with Pt. as she smiled.
--- NOTE | 2016-11-06 15:37 | NUR ---
Behavior Intervention Response and Plan: BIRP Note: Behavior: Assumed Care of patient, patient located in Dining Room at shift change. Patient exhibited the following behavior Irritable, Resistive, Delusions. Brief assessment on rounds of vital signs, medication needs, lab studies, and pain. Treatment plan problems . Intervention: Patient assessed and the following interventions initiated safety checks 15 Minute Checks Cognitive Assessment , Head to toe Assessment , Medications. Response: After interactions and interventions patient responded in the following manner, Calm , Compliant ,Cooperative. Continue to assess behaviors and condition will continue to monitor throughout the shift as needed. Plan: Continue to monitor Master Treatment Plan for patient's progress toward short term goals of Decreased Agitation, Medication Compliance, termite control representative goals to return to previous living setting vs placement. Continue to assess patient for changes in above assessment. Monitor for medication needs, pain, and safety concerns. Hourly rounding performed to ensure safe environment.
[2016-11-06 15:57] VITALS: BP 135/60
--- NOTE | 2016-11-06 15:58 | NUR ---
Patient agitated, argumentative and disruptive in the day room. She was non-compliant with VS, scratched aide, and when nurse attempted to speak with her 1:1, but pt just put hand up and stated "talk to the hand". Patient had been told multiple times to stop yelling, but she would not, so she was removed from day room and taken to room for quiet time, will continue to monitor.
[2016-11-06] MEDS: clonazePAM 0.5 MG TABLET PO SCH (17:25)
[2016-11-06] MEDS: MIRTAZAPINE 15 MG TABLET PO SCH (19:32)
[2016-11-06] MEDS: INSULIN DETEMIR 300 UNITS/3 ML INSULN.PEN. SQ SCH (19:37)
--- NOTE | 2016-11-06 19:41 | PDOC ---
Exam Napoleon Demential Exam: Napoleon Note: Please also refer to the separate dictated note~for this date of service dictated separately.~Patient seen individually. Discussed the patient with Nursing staff reviewed the chart.~Reviewed interim history and current functioning. Reviewed vital signs,~Labs/ Radiology~and current medications noted below. Continue current treatment with the changes noted in the dictated addendum note Assessment: Vital Signs: Vital Signs Date Time Temp Pulse Resp B/P (MAP) Pulse Ox O2 Delivery O2 Flow Rate FiO2 11/06/16 15:57 97.8 89 19 135/60 (85) 94 11/05/16 15:45 Room Air I&O Intake and Output 11/06/16 07:00 Intake Total 480 ml Balance 480 ml Intake Oral 480 ml # Voids 1 Labs: Laboratory Tests Test 11/06/16 08:17 11/06/16 11:26 11/06/16 16:26 Glucose (Fingerstick) 96 mg/dL (70-99) 254 mg/dL (70-99) H 191 mg/dL (70-99) H Current Medications: Meds: Current Medications Acetaminophen (Tylenol) 650 mg PRN Q6HRS PRN PO PAIN / TEMP; Start 10/30/16 at 01:15 Multi-Ingredient Ointment (Analgesic [place]) 1 lyndon PRN QID PRN TP MUSCLE PAIN; Start 10/30/16 at 01:15 Al Hydroxide/Mg Hydroxide (Mylanta Plus Xs) 15 ml PRN AFTMEALHC PRN PO DYSPEPSIA; Start 10/30/16 at 01:15 Magnesium Hydroxide (Milk Of Magnesia) 2,400 mg PRN QHS PRN PO CONSTIPATION; Start 10/30/16 at 01:15 Benztropine Mesylate (Cogentin) 0.5 mg BID PO Last administered on 11/06/16t 19 :32; Start 10/30/16 at 09:00 Clonazepam (KlonoPIN) 0.5 mg DAILY PO ; Start 10/30/16 at 09:00; Stop 10/30/16 at 09:00; Status DC Clonazepam (KlonoPIN) 1 mg BID PO Last administered on 11/06/16 19:34; Start 10/30/16 at 09:00 Divalproex Sodium (Depakote Er) 500 mg BID PO ; Start 10/30/16 at 09:00; Stop 10/30/16 at 09:00; Status DC Quetiapine Fumarate (SEROquel) 150 mg QID PO Last administered on 10/31/16 20: 07; Start 10/30/16 at 09:00; Stop 11/01/16 at 07:59; Status DC Risperidone (RisperDAL CONSTA) 50 mg Q2WKS IM Last administered on 10/30/16 14: 05; Start 10/30/16 at 09:00 Furosemide (Lasix) 60 mg BID92 PO Last administered on 11/06/16 14:13; Start 10/30/16 at 09:00 Insulin Detemir (Levemir) 55 units QHS SQ Last administered on 11/06/16 19:37 ; Start 10/30/16 at 21:00 Albuterol/ Ipratropium (Duoneb) 3 ml PRN DAILY PRN NEB SHORTNESS OF BREATH; Start 10/30/16 at 01:15; Stop 10/30/16 at 02:29; Status DC Potassium Chloride (KCl Oral Soln) 20 meq BIDWMEALS PO Last administered on 08:33; Start 10/30/16 at 08:00; Stop 11/05/16 at 10:08; Status DC Metformin HCl (Glucophage) 1,000 mg BIDWMEALS PO Last administered on 17:25; Start 10/30/16 at 08:00 Clonazepam (KlonoPIN) 0.5 mg DAILY16 PO Last administered on 11/06/16 17:25; Start 10/30/16 at 16:00 Divalproex Sodium (Depakote Er) 500 mg QID PO Last administered on 10/31/16 17: 09; Start 10/30/16 at 09:00; Stop 10/31/16 at 17:43; Status DC Albuterol/ Ipratropium (Duoneb) 3 ml PRN QID PRN NEB SHORTNESS OF BREATH; Start 10/31/16 at 01:15 Olanzapine (ZyPREXA ZYDIS) 5 mg PRN Q2HR PRN PO PSYCHOSIS Last administered on 11/03/16 21:19; Start 10/30/16 at 05:15 Mirtazapine (Remeron) 15 mg QHS PO Last administered on 11/06/16 19:32; Start 10/30/16 at 21:00 Buspirone HCl (Buspar) 5 mg BID PO Last administered on 11/06/16 19:32; Start 10/30/16 at 21:00 Vitamin D (Vitamin D3) 50,000 unit WEEKLY PO Last administered on 11/01/16 08: 02; Start 11/01/16 at 09:00 Divalproex Sodium (Depakote Sprinkles) 1,000 mg BID PO Last administered on 11/02 07:48; Start 10/31/16 at 21:00; Stop 11/02/16 at 18:49; Status DC Haloperidol Lactate (Haldol Oral) 5 mg DAILY PO Last administered on 11/04/16 08:48; Start 11/01/16 at 09:00; Stop 11/04/16 at 18:01; Status DC Divalproex Sodium (Depakote Sprinkles) 750 mg BID PO Last administered on 19:33; Start 11/02/16 at 21:00 Haloperidol Lactate (Haldol Oral) 7.5 mg DAILY PO Last administered on 08:27; Start 11/05/16 at 09:00 Potassium Chloride (KCl Oral Soln) 40 meq BIDWMEALS PO Last administered on 17:25; Start 11/05/16 at 17:00 Magnesium Oxide (Magnesium Oxide) 400 mg DAILYBFRLUN PO Last administered on 08:30; Start 11/05/16 at 11:30 Potassium Chloride (Klor-Con) 20 meq 1X ONCE PO Last administered on 13:27; Start 11/05/16 at 10:30; Stop 11/05/16 at 10:31; Status DC Active Scripts Active Reported Seroquel (Quetiapine Fumarate) 100 Mg Tablet 150 Mg PO QID Risperdal Consta (Risperidone Microspheres) 50 Mg/2 Ml Disp.syrin 50 Mg IM Q2WKS Potassium Chloride Oral Liquid (Potassium Chloride) 20 Meq/15 Ml Liquid 20 Meq PO BID Metformin Hcl 1,000 Mg Tablet 1,000 Mg PO BIDWMEALS Levemir Flextouch (Insulin Detemir) 100 Unit/1 Ml Insuln.pen 55 Unit SQ QHS Haldol (Haloperidol Lactate) 5 Mg/1 Ml Ampul 5 Mg IM PRN Q6HRS PRN Clonazepam 1 Mg Tablet 1 Mg PO BID Furosemide 40 Mg Tablet 60 Mg PO BID92 Hold for SBP less than 100. After held dose, reassess in 2 hours. If SBP is above threshold, administer dose as ordered. If SBP is below threshold, contact provider for additional instructions. Duoneb 0.5-3(2.5) Mg/3 Ml (Albuterol/Ipratropium) 3 Ml Ampul.neb 3 Ml NEB PRN QID PRN Depakote Er (Divalproex Sodium) 500 Mg Tab.er.24h 500 Mg PO QID Give with food. DO NOT CRUSH OR CHEW Cyanocobalamin Injection (Cyanocobalamin (Vitamin B-12)) 1,000 Mcg/1 Ml Vial 2, 000 Mcg IM [id number] Clonazepam 0.5 Mg Tablet 0.5 Mg PO DAILY16 Benztropine Mesylate 0.5 Mg Tablet 0.5 Mg PO BID Diagnosis: Problems: (1) Schizophrenia (2) Acute exacerbation of psychosis (3) Depression (4) Schizoaffective disorder (5) Anxiety disorder (6) Impulse control disorder (7) Schizoaffective disorder, chronic condition with acute exacerbation KALIN STARKS MD Nov 06, 2016 19:40
--- NOTE | 2016-11-06 20:40 | PN ---
DATE: 11/05/2016 PSYCHIATRIC PROGRESS NOTE This is late entry for 11/05/2016, covers elements not covered in my initial note. SUBJECTIVE: The patient slept 5 hours, increasingly paranoid, especially about her medications and food, frequently refusing. REVIEW OF SYSTEMS: Shortness of breath, impaired ambulation. No CV, , GI, eye, ENT system symptoms on review. MENTAL STATUS EXAMINATION: Oriented to herself and situation. Speech has some latency, coherent. Abstraction fair, computation impaired, language function intact. Mood and affect remain somewhat labile. LABORATORY DATA: Valproic acid level is 80. IMPRESSION: Unchanged from initial note. PLAN: Continue psychotropics mentioned in my initial note, but increase Haldol to 7.5 mg daily. MAN Mary STARKS MD DR: TRACIE/karli JOB#: [id number] / [id number]
--- NOTE | 2016-11-06 22:59 | NUR ---
Behavior Intervention Response and Plan: BIRP Note: Behavior: Assumed Care of patient, patient located in Day Room at shift change. Patient exhibited the following behavior Irritable, Resistive, Delusions. Brief assessment on rounds of vital signs, medication needs, lab studies, and pain. Treatment plan problems Danger to Others and Fall Risk. Intervention: Patient assessed and the following interventions initiated safety checks 15 Minute Checks Cognitive Assessment , Head to toe Assessment , Medications. Response: After interactions and interventions patient responded in the following manner, Resistive , Demanding ,Sleeping. Continue to assess behaviors and condition will continue to monitor throughout the shift as needed. 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 Continue to assess patient for changes in above assessment. Monitor for medication needs, pain, and safety concerns. Hourly rounding performed to ensure safe environment.
[2016-11-07 05:21] VITALS: BP 121/56
[2016-11-07] MEDS: FUROSEMIDE 40 MG TABLET PO SCH ×2 (08:52→14:24)
[2016-11-07] MEDS: BENZTROPINE MESYLATE 0.5 MG TABLET PO SCH ×2 (08:52→19:47)
[2016-11-07] MEDS: metFORMIN 500 MG TABLET PO SCH ×2 (08:52→16:46)
[2016-11-07] MEDS: busPIRone 5 MG TABLET. PO SCH ×2 (08:52→19:47)
[2016-11-07] MEDS: clonazePAM 1 MG TABLET PO SCH ×2 (08:52→19:47)
[2016-11-07] MEDS: HALOPERIDOL 10 MG/5 ML ORAL.CONC. PO SCH (08:53)
[2016-11-07] MEDS: DIVALPROEX 125 MG CAP.SPRINK PO SCH ×2 (08:53→19:48)
[2016-11-07] MEDS: POTASSIUM CHLORIDE 20 MEQ/15 ML ORAL LIQUID. PO SCH ×2 (08:54→16:47)
--- NOTE | 2016-11-07 09:05 | NUR ---
Behavior Intervention Response and Plan: BIRP Note: Behavior: Assumed Care of patient, patient located in Dining Room at shift change. Patient exhibited the following behavior Disorganized, Delusions, Resistive. Brief assessment on rounds of vital signs, medication needs, lab studies, and pain. Treatment plan problems 1 & 2. Intervention: Patient assessed and the following interventions initiated safety checks 15 Minute Checks Cognitive Assessment , Medications , Medications. Response: After interactions and interventions patient responded in the following manner, Calm , Appropriate ,Compliant. Continue to assess behaviors and condition will continue to monitor throughout the shift as needed. 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 Continue to assess patient for changes in above assessment. Monitor for medication needs, pain, and safety concerns. Hourly rounding performed to ensure safe environment.
--- NOTE | 2016-11-07 10:50 | PN ---
DATE: 11/06/2016 PSYCHIATRIC PROGRESS NOTE This is a late entry 11/06/2016, covers elements not covered in my initial note. SUBJECTIVE: Overall, the patient remains psychotic, has had occasional yelling, arguing with nursing staff, asking to leave the day room because she was so disruptive, loud, unmanageable. REVIEW OF SYSTEMS: Ambulation impaired with her walker. No CV, , pulmonary, eye system symptoms on review. Reliability varies. MENTAL STATUS EXAM: Oriented to herself and situation. Speech coherent, rapid, loud at times. Abstraction fair, computation impaired, language function intact, attention span short. Mood and affect remains labile. LABORATORY DATA: Reviewed. IMPRESSION: Unchanged from initial notes. PLAN: Haldol was just increased to 7.5 mg a day. Maintain rest of the psychotropics, may need to increase Haldol again in due course. Valproic acid level is therapeutic at 80. KALIN STARKS MD DR: TRACIE/karli JOB#: [id number] / [id number]
--- NOTE | 2016-11-07 11:15 | NUR ---
THERAPEUTIC RECREATION GROUP NOTE TITLE :Match the [place] ACTIVITY : Cognitive Stimulation GOAL : Maintain or improve cognitive functioning and memory. DURATION : 45 Minutes RESPONSE : No participation.
[2016-11-07] MEDS: MAGNESIUM OXIDE 400 MG TABLET PO SCH ×2 (11:30→12:20)
--- NOTE | 2016-11-07 11:39 | NUR ---
ASHLEY faxed updated clinical notes to [facility].
--- NOTE | 2016-11-07 12:20 | NUR ---
patient in dining room, refused 11:30 Mg Oxide after multiple attempts.
[2016-11-07 15:58] VITALS: BP 107/67
[2016-11-07] MEDS: clonazePAM 0.5 MG TABLET PO SCH (16:46)
[2016-11-07] MEDS: MIRTAZAPINE 15 MG TABLET PO SCH (19:47)
[2016-11-07] MEDS: INSULIN DETEMIR 300 UNITS/3 ML INSULN.PEN. SQ SCH (19:51)
--- NOTE | 2016-11-07 20:04 | PDOC ---
Exam Napoleon Demential Exam: Napoleon Note: Please also refer to the separate dictated note~for this date of service dictated separately.~Patient seen individually. Discussed the patient with Nursing staff reviewed the chart.~Reviewed interim history and current functioning. Reviewed vital signs,~Labs/ Radiology~and current medications noted below. Continue current treatment with the changes noted in the dictated addendum note Assessment: Vital Signs: Vital Signs Date Time Temp Pulse Resp B/P (MAP) Pulse Ox O2 Delivery O2 Flow Rate FiO2 11/07/16 15:58 98.2 80 20 107/67 (80) 94 11/07/16 05:21 Nasal Cannula 2.0 I&O Intake and Output 11/07/16 07:00 Intake Total 1200 ml Output Total 1 ml Balance 1199 ml Intake Oral 1200 ml Output Stool Total 1 ml # Voids 1 Labs: Laboratory Tests Test 11/07/16 07:43 11/07/16 11:41 11/07/16 17:08 11/07/16 18:58 Glucose (Fingerstick) 73 mg/dL (70-99) 189 mg/dL (70-99) H 150 mg/dL (70-99) H 193 mg/dL (70-99) H Current Medications: Meds: Current Medications Acetaminophen (Tylenol) 650 mg PRN Q6HRS PRN PO PAIN / TEMP; Start 10/30/16 at 01:15 Multi-Ingredient Ointment (Analgesic [place]) 1 lyndon PRN QID PRN TP MUSCLE PAIN; Start 10/30/16 at 01:15 Al Hydroxide/Mg Hydroxide (Mylanta Plus Xs) 15 ml PRN AFTMEALHC PRN PO DYSPEPSIA; Start 10/30/16 at 01:15 Magnesium Hydroxide (Milk Of Magnesia) 2,400 mg PRN QHS PRN PO CONSTIPATION; Start 10/30/16 at 01:15 Benztropine Mesylate (Cogentin) 0.5 mg BID PO Last administered on 11/07/16 19 :47; Start 10/30/16 at 09:00 Clonazepam (KlonoPIN) 0.5 mg DAILY PO ; Start 10/30/16 at 09:00; Stop 10/30/16 at 09:00; Status DC Clonazepam (KlonoPIN) 1 mg BID PO Last administered on 11/07/16 19:47; Start 10/30/16 at 09:00 Divalproex Sodium (Depakote Er) 500 mg BID PO ; Start 10/30/16 at 09:00; Stop 10/30/16 at 09:00; Status DC Quetiapine Fumarate (SEROquel) 150 mg QID PO Last administered on 10/31/16 20: 07; Start 10/30/16 at 09:00; Stop 11/01/16 at 07:59; Status DC Risperidone (RisperDAL CONSTA) 50 mg Q2WKS IM Last administered on 10/30/16 14: 05; Start 10/30/16 at 09:00 Furosemide (Lasix) 60 mg BID92 PO Last administered on 11/07/16 14:24; Start 10/30/16 at 09:00 Insulin Detemir (Levemir) 55 units QHS SQ Last administered on 11/07/16 19:51 ; Start 10/30/16 at 21:00 Albuterol/ Ipratropium (Duoneb) 3 ml PRN DAILY PRN NEB SHORTNESS OF BREATH; Start 10/30/16 at 01:15; Stop 10/30/16 at 02:29; Status DC Potassium Chloride (KCl Oral Soln) 20 meq BIDWMEALS PO Last administered on 08:33; Start 10/30/16 at 08:00; Stop 11/05/16 at 10:08; Status DC Metformin HCl (Glucophage) 1,000 mg BIDWMEALS PO Last administered on 16:46; Start 10/30/16 at 08:00 Clonazepam (KlonoPIN) 0.5 mg DAILY16 PO Last administered on 11/07/16 16:46; Start 10/30/16 at 16:00 Divalproex Sodium (Depakote Er) 500 mg QID PO Last administered on 10/31/16 17: 09; Start 10/30/16 at 09:00; Stop 10/31/16 at 17:43; Status DC Albuterol/ Ipratropium (Duoneb) 3 ml PRN QID PRN NEB SHORTNESS OF BREATH; Start 10/31/16 at 01:15 Olanzapine (ZyPREXA ZYDIS) 5 mg PRN Q2HR PRN PO PSYCHOSIS Last administered on 11/03/16 21:19; Start 10/30/16 at 05:15 Mirtazapine (Remeron) 15 mg QHS PO Last administered on 11/07/16 19:47; Start 10/30/16 at 21:00 Buspirone HCl (Buspar) 5 mg BID PO Last administered on 11/07/16 19:47; Start 10/30/16 at 21:00 Vitamin D (Vitamin D3) 50,000 unit WEEKLY PO Last administered on 11/01/16 08: 02; Start 11/01/16 at 09:00 Divalproex Sodium (Depakote Sprinkles) 1,000 mg BID PO Last administered on 11/02 07:48; Start 10/31/16 at 21:00; Stop 11/02/16 at 18:49; Status DC Haloperidol Lactate (Haldol Oral) 5 mg DAILY PO Last administered on 11/04/16 08:48; Start 11/01/16 at 09:00; Stop 11/04/16 at 18:01; Status DC Divalproex Sodium (Depakote Sprinkles) 750 mg BID PO Last administered on 19:48; Start 11/02/16 at 21:00 Haloperidol Lactate (Haldol Oral) 7.5 mg DAILY PO Last administered on 08:53; Start 11/05/16 at 09:00; Stop 11/07/16 at 18:29; Status DC Potassium Chloride (KCl Oral Soln) 40 meq BIDWMEALS PO Last administered on 16:47; Start 11/05/16 at 17:00 Magnesium Oxide (Magnesium Oxide) 400 mg DAILYBFRLUN PO Last administered on 08:30; Start 11/05/16 at 11:30 Potassium Chloride (Klor-Con) 20 meq 1X ONCE PO Last administered on 13:27; Start 11/05/16 at 10:30; Stop 11/05/16 at 10:31; Status DC Haloperidol Lactate (Haldol Oral) 10 mg DAILY PO ; Start 11/08/16 at 09:00 Active Scripts Active Reported Seroquel (Quetiapine Fumarate) 100 Mg Tablet 150 Mg PO QID Risperdal Consta (Risperidone Microspheres) 50 Mg/2 Ml Disp.syrin 50 Mg IM Q2WKS Potassium Chloride Oral Liquid (Potassium Chloride) 20 Meq/15 Ml Liquid 20 Meq PO BID Metformin Hcl 1,000 Mg Tablet 1,000 Mg PO BIDWMEALS Levemir Flextouch (Insulin Detemir) 100 Unit/1 Ml Insuln.pen 55 Unit SQ QHS Haldol (Haloperidol Lactate) 5 Mg/1 Ml Ampul 5 Mg IM PRN Q6HRS PRN Clonazepam 1 Mg Tablet 1 Mg PO BID Furosemide 40 Mg Tablet 60 Mg PO BID92 Hold for SBP less than 100. After held dose, reassess in 2 hours. If SBP is above threshold, administer dose as ordered. If SBP is below threshold, contact provider for additional instructions. Duoneb 0.5-3(2.5) Mg/3 Ml (Albuterol/Ipratropium) 3 Ml Ampul.neb 3 Ml NEB PRN QID PRN Depakote Er (Divalproex Sodium) 500 Mg Tab.er.24h 500 Mg PO QID Give with food. DO NOT CRUSH OR CHEW Cyanocobalamin Injection (Cyanocobalamin (Vitamin B-12)) 1,000 Mcg/1 Ml Vial 2, 000 Mcg IM [id number] Clonazepam 0.5 Mg Tablet 0.5 Mg PO DAILY16 Benztropine Mesylate 0.5 Mg Tablet 0.5 Mg PO BID Diagnosis: Problems: (1) Schizophrenia (2) Acute exacerbation of psychosis (3) Depression (4) Schizoaffective disorder (5) Anxiety disorder (6) Impulse control disorder (7) Schizoaffective disorder, chronic condition with acute exacerbation KALIN STARKS MD Nov 07, 2016 20:04
--- NOTE | 2016-11-07 23:07 | NUR ---
Behavior Intervention Response and Plan: BIRP Note: Behavior: Assumed Care of patient, patient located in Day Room at shift change. Patient exhibited the following behavior Resistive, Agitated, Irritable. Brief assessment on rounds of vital signs, medication needs, lab studies, and pain. Treatment plan problems Danger to Others and Fall Risk. Intervention: Patient assessed and the following interventions initiated safety checks 15 Minute Checks Cognitive Assessment , Head to toe Assessment , Medications. Response: After interactions and interventions patient responded in the following manner, Cooperative , Calm ,Cooperative. Continue to assess behaviors and condition will continue to monitor throughout the shift as needed. Plan: Continue to monitor Master Treatment Plan for patient's progress toward short term goals of No harm To self/ others, Decreased Agitation, [facility] goals to return to previous living setting vs placement. Continue to assess patient for changes in above assessment. Monitor for medication needs, pain, and safety concerns. Hourly rounding performed to ensure safe environment.
--- NOTE | 2016-11-08 01:05 | PN ---
DATE: 11/07/2016 This note covers elements not covered in my initial note. SUBJECTIVE: The11/08/2016patient has been resistive to taking her medications. Nursing staff have to hide the medications and bribed her with yogurt. She has been resistive and demanding per nursing report. The patient was seen individually, discussed with nursing staff, reviewed the chart. Per nursing report, she is still paranoid, delusional, suspicious and this is part of the reason she does not take her medications. REVIEW OF SYSTEMS: Ambulation with a walker. No CV, , pulmonary, eye system symptoms on review. MENTAL STATUS EXAM: Oriented to herself and situation. Speech is coherent, abstraction fair, computation impaired. Mood and affect remain somewhat labile. LABORATORY DATA: Reviewed. IMPRESSION: Unchanged from initial note. PLAN: Increase Haldol from 7.5 mg a day to 10 mg a day. Maintain the rest of the psychotropics mentioned in my initial note. KALIN STARKS MD DR: TRACIE/karli JOB#: [id number] / [id number]
[2016-11-08 05:41] VITALS: BP 115/59
[2016-11-08] MEDS: POTASSIUM CHLORIDE 20 MEQ/15 ML ORAL LIQUID. PO SCH ×3 (08:00→16:26)
[2016-11-08] MEDS: FUROSEMIDE 40 MG TABLET PO SCH ×2 (08:10→14:11)
[2016-11-08] MEDS: DIVALPROEX 125 MG CAP.SPRINK PO SCH ×2 (08:10→21:30)
[2016-11-08] MEDS: busPIRone 5 MG TABLET. PO SCH ×2 (08:10→21:30)
[2016-11-08] MEDS: metFORMIN 500 MG TABLET PO SCH ×2 (08:12→16:27)
[2016-11-08] MEDS: BENZTROPINE MESYLATE 0.5 MG TABLET PO SCH ×2 (08:12→21:30)
[2016-11-08] MEDS: clonazePAM 1 MG TABLET PO SCH ×2 (08:14→21:32)
[2016-11-08] MEDS: HALOPERIDOL 10 MG/5 ML ORAL.CONC. PO SCH (08:14)
[2016-11-08] MEDS: CHOLECALCIFEROL (VITAMIN D3) 50,000 UNIT CAPSULE PO SCH (08:14)
--- NOTE | 2016-11-08 08:30 | NUR ---
Patient extremely irritable this AM, in day room, refusing to have blood sugar taken. Nurse attempted 1:1, but her agitation only escalated. PRN zydis given hidden with morning medications. Nurse attempted to hide Klor-con, but patient refused this medication. Will attempt again at another time.
--- NOTE | 2016-11-08 11:00 | NUR ---
THERAPEUTIC RECREATION GROUP NOTE TITLE :Instrument Play Along ACTIVITY : Music GOAL : Increase socialization and self expression, elevate mood, stimulate memory DURATION : 60 minutes RESPONSE : Minimal participation. Pt. started the group and smiled as she played along to the music. She fell asleep after 5 minutes.
[2016-11-08] MEDS: MAGNESIUM OXIDE 400 MG TABLET PO SCH (14:11)
--- NOTE | 2016-11-08 14:15 | NUR ---
THERAPEUTIC RECREATION GROUP NOTE TITLE :Movie ACTIVITY : Activities and Games GOAL : Increase alertness/focus, decrease stress DURATION : 105 Minutes RESPONSE : Minimal participation. Pt. ate ice cream and watched a little of the movie throughout the session. She shouted loudly a few times. She yelled at another patient who picked up a wipe of hers. Pt. hollered for her to give it back; however, the other patient did not and mocked her. Pt. lifted her sports drink bottle and threatened to throw it at the other patient. Pt. was redirected and put the bottle down. DITCHER assisted the other patient as she returned the wipe and Pt. closed her eyes for a little while.
--- NOTE | 2016-11-08 15:31 | NUR ---
SW GROUP NOTE co-facilitate w/Glenny Matamoros LMSW TITLE: Outside! ACTIVITY: Pt. sat outside, enjoying fresh air and sunshine. PT's reminisced. TARGET BEHAVIOR: Reminisce, social skills, validation, sunlight therapy DURATION: 10:30-11:15 RESPONSE: High participation. Pt. very engaged and appropriate w/the group.
--- NOTE | 2016-11-08 15:49 | NUR ---
Behavior Intervention Response and Plan: BIRP Note: Behavior: Assumed Care of patient, patient located in Dining Room at shift change. Patient exhibited the following behavior Irritable, Resistive, Delusions. Brief assessment on rounds of vital signs, medication needs, lab studies, and pain. Treatment plan problems . Intervention: Patient assessed and the following interventions initiated safety checks 15 Minute Checks Cognitive Assessment , Head to toe Assessment , Medications. Response: After interactions and interventions patient responded in the following manner, Calm , Compliant ,Cooperative. Continue to assess behaviors and condition will continue to monitor throughout the shift as needed. 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 Continue to assess patient for changes in above assessment. Monitor for medication needs, pain, and safety concerns. Hourly rounding performed to ensure safe environment.
[2016-11-08 15:52] VITALS: BP 93/63
[2016-11-08] MEDS: clonazePAM 0.5 MG TABLET PO SCH (16:27)
--- NOTE | 2016-11-08 19:56 | PDOC ---
Exam Napoleon Demential Exam: Napoleon Note: Please also refer to the separate dictated note~for this date of service dictated separately.~Patient seen individually. Discussed the patient with Nursing staff reviewed the chart.~Reviewed interim history and current functioning. Reviewed vital signs,~Labs/ Radiology~and current medications noted below. Continue current treatment with the changes noted in the dictated addendum note Assessment: Vital Signs: Vital Signs Date Time Temp Pulse Resp B/P (MAP) Pulse Ox O2 Delivery O2 Flow Rate FiO2 11/08/16 15:52 98.0 81 18 93/63 (73) 94 Room Air 11/07/16 05:21 2.0 I&O Intake and Output 11/08/16 07:00 Intake Total 1435 ml Balance 1435 ml Intake Oral 1435 ml Labs: Laboratory Tests Test 11/08/16 08:01 11/08/16 11:41 11/08/16 17:06 11/08/16 19:42 Glucose (Fingerstick) 72 mg/dL (70-99) 119 mg/dL (70-99) H 146 mg/dL (70-99) H 163 mg/dL (70-99) H Current Medications: Meds: Current Medications Acetaminophen (Tylenol) 650 mg PRN Q6HRS PRN PO PAIN / TEMP; Start 10/30/16 at 01:15 Multi-Ingredient Ointment (Analgesic [place]) 1 lyndon PRN QID PRN TP MUSCLE PAIN; Start 10/30/16 at 01:15 Al Hydroxide/Mg Hydroxide (Mylanta Plus Xs) 15 ml PRN AFTMEALHC PRN PO DYSPEPSIA; Start 10/30/16 at 01:15 Magnesium Hydroxide (Milk Of Magnesia) 2,400 mg PRN QHS PRN PO CONSTIPATION; Start 10/30/16 at 01:15 Benztropine Mesylate (Cogentin) 0.5 mg BID PO Last administered on 11/08/16 08 :12; Start 10/30/16 at 09:00 Clonazepam (KlonoPIN) 0.5 mg DAILY PO ; Start 10/30/16 at 09:00; Stop 10/30/16 at 09:00; Status DC Clonazepam (KlonoPIN) 1 mg BID PO Last administered on 11/08/16 08:14; Start 10/30/16 at 09:00; Stop 11/08/16 at 18:35; Status DC Divalproex Sodium (Depakote Er) 500 mg BID PO ; Start 10/30/16 at 09:00; Stop 10/30/16 at 09:00; Status DC Quetiapine Fumarate (SEROquel) 150 mg QID PO Last administered on 10/31/16 20: 07; Start 10/30/16 at 09:00; Stop 11/01/16 at 07:59; Status DC Risperidone (RisperDAL CONSTA) 50 mg Q2WKS IM Last administered on 10/30/16 14: 05; Start 10/30/16 at 09:00 Furosemide (Lasix) 60 mg BID92 PO Last administered on 11/08/16 14:11; Start 10/30/16 at 09:00 Insulin Detemir (Levemir) 55 units QHS SQ Last administered on 11/07/16 19:51 ; Start 10/30/16 at 21:00 Albuterol/ Ipratropium (Duoneb) 3 ml PRN DAILY PRN NEB SHORTNESS OF BREATH; Start 10/30/16 at 01:15; Stop 10/30/16 at 02:29; Status DC Potassium Chloride (KCl Oral Soln) 20 meq BIDWMEALS PO Last administered on 08:33; Start 10/30/16 at 08:00; Stop 11/05/16 at 10:08; Status DC Metformin HCl (Glucophage) 1,000 mg BIDWMEALS PO Last administered on 16:27; Start 10/30/16 at 08:00 Clonazepam (KlonoPIN) 0.5 mg DAILY16 PO Last administered on 11/08/16 16:27; Start 10/30/16 at 16:00; Stop 11/08/16 at 18:35; Status DC Divalproex Sodium (Depakote Er) 500 mg QID PO Last administered on 10/31/16 17: 09; Start 10/30/16 at 09:00; Stop 10/31/16 at 17:43; Status DC Albuterol/ Ipratropium (Duoneb) 3 ml PRN QID PRN NEB SHORTNESS OF BREATH; Start 10/31/16 at 01:15 Olanzapine (ZyPREXA ZYDIS) 5 mg PRN Q2HR PRN PO PSYCHOSIS Last administered on 11/08/16 08:14; Start 10/30/16 at 05:15 Mirtazapine (Remeron) 15 mg QHS PO Last administered on 11/07/16 19:47; Start 10/30/16 at 21:00 Buspirone HCl (Buspar) 5 mg BID PO Last administered on 11/08/16 08:10; Start 10/30/16 at 21:00 Vitamin D (Vitamin D3) 50,000 unit WEEKLY PO Last administered on 11/08/16 08: 14; Start 11/01/16 at 09:00 Divalproex Sodium (Depakote Sprinkles) 1,000 mg BID PO Last administered on 11/02 07:48; Start 10/31/16 at 21:00; Stop 11/02/16 at 18:49; Status DC Haloperidol Lactate (Haldol Oral) 5 mg DAILY PO Last administered on 11/04/16 08:48; Start 11/01/16 at 09:00; Stop 11/04/16 at 18:01; Status DC Divalproex Sodium (Depakote Sprinkles) 750 mg BID PO Last administered on 08:10; Start 11/02/16 at 21:00 Haloperidol Lactate (Haldol Oral) 7.5 mg DAILY PO Last administered on 08:53; Start 11/05/16 at 09:00; Stop 11/07/16 at 18:29; Status DC Potassium Chloride (KCl Oral Soln) 40 meq BIDWMEALS PO Last administered on 16:26; Start 11/05/16 at 17:00 Magnesium Oxide (Magnesium Oxide) 400 mg DAILYBFRLUN PO Last administered on 14:11; Start 11/05/16 at 11:30 Potassium Chloride (Klor-Con) 20 meq 1X ONCE PO Last administered on 13:27; Start 11/05/16 at 10:30; Stop 11/05/16 at 10:31; Status DC Haloperidol Lactate (Haldol Oral) 10 mg DAILY PO Last administered on 08:14; Start 11/08/16 at 09:00 Clonazepam (KlonoPIN) 0.5 mg BIDACBL PO ; Start 11/09/16 at 07:30 Clonazepam (KlonoPIN) 1 mg HS PO ; Start 11/08/16 at 21:00 Active Scripts Active Reported Seroquel (Quetiapine Fumarate) 100 Mg Tablet 150 Mg PO QID Risperdal Consta (Risperidone Microspheres) 50 Mg/2 Ml Disp.syrin 50 Mg IM Q2WKS Potassium Chloride Oral Liquid (Potassium Chloride) 20 Meq/15 Ml Liquid 20 Meq PO BID Metformin Hcl 1,000 Mg Tablet 1,000 Mg PO BIDWMEALS Levemir Flextouch (Insulin Detemir) 100 Unit/1 Ml Insuln.pen 55 Unit SQ QHS Haldol (Haloperidol Lactate) 5 Mg/1 Ml Ampul 5 Mg IM PRN Q6HRS PRN Clonazepam 1 Mg Tablet 1 Mg PO BID Furosemide 40 Mg Tablet 60 Mg PO [id number] Hold for SBP less than 100. After held dose, reassess in 2 hours. If SBP is above threshold, administer dose as ordered. If SBP is below threshold, contact provider for additional instructions. Duoneb 0.5-3(2.5) Mg/3 Ml (Albuterol/Ipratropium) 3 Ml Ampul.neb 3 Ml NEB PRN QID PRN Depakote Er (Divalproex Sodium) 500 Mg Tab.er.24h 500 Mg PO QID Give with food. DO NOT CRUSH OR CHEW Cyanocobalamin Injection (Cyanocobalamin (Vitamin B-12)) 1,000 Mcg/1 Ml Vial 2, 000 Mcg IM [id number] Clonazepam 0.5 Mg Tablet 0.5 Mg PO DAILY16 Benztropine Mesylate 0.5 Mg Tablet 0.5 Mg PO BID Diagnosis: Problems: (1) Schizophrenia (2) Acute exacerbation of psychosis (3) Depression (4) Schizoaffective disorder (5) Anxiety disorder (6) Impulse control disorder (7) Schizoaffective disorder, chronic condition with acute exacerbation KALIN STARKS MD Nov 08, 2016 19:56
[2016-11-08] MEDS: MIRTAZAPINE 15 MG TABLET PO SCH (21:30)
[2016-11-08] MEDS: INSULIN DETEMIR 300 UNITS/3 ML INSULN.PEN. SQ SCH (21:33)
--- NOTE | 2016-11-08 23:01 | NUR ---
Nursing Note: Pt very argumentative, demanding and resistive to medications and HS cares. Pt disruptive to day room, yelling as she is escorted to bed.
--- NOTE | 2016-11-09 02:33 | NUR ---
Behavior Intervention Response and Plan: BIRP Note: Behavior: Assumed Care of patient, patient located in Day Room at shift change. Patient exhibited the following behavior Resistive, Irritable, Delusions. Brief assessment on rounds of vital signs, medication needs, lab studies, and pain. Treatment plan problems Danger to others and fall Risk. Intervention: Patient assessed and the following interventions initiated safety checks 15 Minute Checks Cognitive Assessment , Head to toe Assessment , Medications. Response: After interactions and interventions patient responded in the following manner, Resistive , Irritable ,Demanding. Continue to assess behaviors and condition will continue to monitor throughout the shift as needed. Plan: Continue to monitor Master Treatment Plan for patient's progress toward short term goals of Decreased Aggression, Decreased Agitation, detention goals to return to previous living setting vs placement. Continue to assess patient for changes in above assessment. Monitor for medication needs, pain, and safety concerns. Hourly rounding performed to ensure safe environment.
--- NOTE | 2016-11-09 05:49 | NUR ---
Nursing Note: Pt's oxygen saturation was below 85 % when first measured this am. Pt's bed was raised, PRN oxygen applied, and within less than a minute raised to 94% with other vital signs WNL.
[2016-11-09 06:11] VITALS: BP 121/73
[2016-11-09] MEDS ORDERED: clonazePAM 0.5 MG TABLET PO SCH (07:30)
--- NOTE | 2016-11-09 07:31 | PN ---
DATE: 11/08/2016 SUBJECTIVE: This is a late entry for 11/08/2016 covers elements not covered in my initial note of 11/08/2016: The patient was staffed at the treatment team meeting with the entire team. Reviewed her history progress. She often refuses blood sugars and later talked about her food being poisoned. Still remains paranoid, suspicious, somewhat sedated during the daytime. Refuse to drink her potassium at breakfast and I spent some time trying to convince her of this together with Usha the nursing staff. She would reluctantly agree to it and then refuse. Slept 5-3/4 hours. REVIEW OF SYSTEMS: Ambulation impaired with her walker. No CV, , pulmonary, or eye system symptoms on review. MENTAL STATUS EXAM: Oriented to herself and situation. Speech has some latency and at times pressured. Abstraction fair, computation impaired, and language function intact. Attention span short. IMPRESSION: Schizoaffective disorder, bipolar type. Rest unchanged. PLAN: Due to her daytime sedation, we will reduce the Klonopin from 1 mg b.i.d. and 0.5 at 4 p.m. to 0.5 mg morning and afternoon and 1 mg at night. Continue BuSpar, Cogentin, and Depakote since the valproic acid level is therapeutic. Continue Risperdal Consta and Remeron. Haldol was increased to 10 mg a day. We are probably reaching the maximum benefit we can for her with changing her psychotropics. Discussed discharged plans with social service staff who coordinate this with receiving facility. KALIN STARKS MD DR: TRACIE/karli JOB#: [id number] / [id number]
[2016-11-09] MEDS: DIVALPROEX 125 MG CAP.SPRINK PO SCH ×2 (07:54→19:39)
[2016-11-09] MEDS: POTASSIUM CHLORIDE 20 MEQ/15 ML ORAL LIQUID. PO SCH ×2 (07:55→17:04)
[2016-11-09] MEDS: HALOPERIDOL 10 MG/5 ML ORAL.CONC. PO SCH (07:55)
[2016-11-09] MEDS: busPIRone 5 MG TABLET. PO SCH ×2 (07:55→19:39)
[2016-11-09] MEDS: metFORMIN 500 MG TABLET PO SCH ×2 (07:55→17:04)
[2016-11-09] MEDS: FUROSEMIDE 40 MG TABLET PO SCH ×2 (07:55→14:00)
[2016-11-09] MEDS: BENZTROPINE MESYLATE 0.5 MG TABLET PO SCH ×2 (07:56→19:39)
[2016-11-09] MEDS: MAGNESIUM OXIDE 400 MG TABLET PO SCH (08:05)
[2016-11-09] MEDS: clonazePAM 0.5 MG TABLET PO SCH ×2 (08:58→15:14)
--- NOTE | 2016-11-09 13:15 | NUR ---
THERAPEUTIC RECREATION GROUP NOTE TITLE :Sing along/ Karaoke ACTIVITY : Music GOAL : Increase socialization, elevate mood, stimulate memory DURATION : 120 Minutes RESPONSE : Minimal participation. Pt. sang along with a few songs at the beginning and at the end. She slept the rest of the time.
--- NOTE | 2016-11-09 14:08 | NUR ---
Group Note [facility] Group Type Outside Activity Start Time: 09:30 End Time: 10:45 Problem: Psychotic Symptoms Purpose: Increase Stimulation, Increase socialization Level of Participation: High Behaviors or Symptoms Observed: Pt became agiated with peer Interventions: Reminiscence Response: Pt's played ball and answered questions while enjoying fresh air and [place]! Plan: Group Participation Additional Comments:
--- NOTE | 2016-11-09 14:40 | NUR ---
Behavior Intervention Response and Plan: BIRP Note: Behavior: Assumed Care of patient, patient located in Day Room at shift change. Patient exhibited the following behavior Compulsive, Demanding, Delusions. Brief assessment on rounds of vital signs, medication needs, lab studies, and pain. Treatment plan problems . Intervention: Patient assessed and the following interventions initiated safety checks 15 Minute Checks Cognitive Assessment , Cognitive Assessment , Head to toe Assessment. Response: After interactions and interventions patient responded in the following manner, Demanding , Delusions ,Calm. Continue to assess behaviors and condition will continue to monitor throughout the shift as needed. 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 Continue to assess patient for changes in above assessment. Monitor for medication needs, pain, and safety concerns. Hourly rounding performed to ensure safe environment.
[2016-11-09 16:25] VITALS: BP 115/75
[2016-11-09] MEDS: MIRTAZAPINE 15 MG TABLET PO SCH (19:39)
[2016-11-09] MEDS: clonazePAM 1 MG TABLET PO SCH (19:39)
[2016-11-09] MEDS: INSULIN DETEMIR 300 UNITS/3 ML INSULN.PEN. SQ SCH (19:41)
--- NOTE | 2016-11-09 20:47 | PDOC ---
Exam Napoleon Demential Exam: Napoleon Note: Please also refer to the separate dictated note~for this date of service dictated separately.~Patient seen individually. Discussed the patient with Nursing staff reviewed the chart.~Reviewed interim history and current functioning. Reviewed vital signs,~Labs/ Radiology~and current medications noted below. Continue current treatment with the changes noted in the dictated addendum note Assessment: Vital Signs: Vital Signs Date Time Temp Pulse Resp B/P (MAP) Pulse Ox O2 Delivery O2 Flow Rate FiO2 11/09/16 16:25 98.2 68 20 115/75 (88) 95 11/08/16 15:52 Room Air 11/07/16 05:21 2.0 I&O Intake and Output 11/09/16 06:59 Intake Total 1180 ml Balance 1180 ml Intake Oral 1180 ml Labs: Laboratory Tests Test 11/09/16 07:18 11/09/16 07:37 11/09/16 11:57 11/09/16 16:45 Glucose (Fingerstick) 50 mg/dL (70-99) L 82 mg/dL (70-99) 94 mg/dL (70-99) 134 mg/dL (70-99) H Test 11/09/16 19:15 Glucose (Fingerstick) 177 mg/dL (70-99) H Current Medications: Meds: Current Medications Acetaminophen (Tylenol) 650 mg PRN Q6HRS PRN PO PAIN / TEMP; Start 10/30/16 at 01:15 Multi-Ingredient Ointment (Analgesic [place]) 1 lyndon PRN QID PRN TP MUSCLE PAIN; Start 10/30/16 at 01:15 Al Hydroxide/Mg Hydroxide (Mylanta Plus Xs) 15 ml PRN AFTMEALHC PRN PO DYSPEPSIA; Start 10/30/16 at 01:15 Magnesium Hydroxide (Milk Of Magnesia) 2,400 mg PRN QHS PRN PO CONSTIPATION; Start 10/30/16 at 01:15 Benztropine Mesylate (Cogentin) 0.5 mg BID PO Last administered on 11/09/16t 19 :39; Start 10/30/16 at 09:00 Clonazepam (KlonoPIN) 0.5 mg DAILY PO ; Start 10/30/16 at 09:00; Stop 10/30/16 at 09:00; Status DC Clonazepam (KlonoPIN) 1 mg BID PO Last administered on 11/08/16 08:14; Start 10/30/16 at 09:00; Stop 11/08/16 at 18:35; Status DC Divalproex Sodium (Depakote Er) 500 mg BID PO ; Start 10/30/16 at 09:00; Stop 10/30/16 at 09:00; Status DC Quetiapine Fumarate (SEROquel) 150 mg QID PO Last administered on 10/31/16 20: 07; Start 10/30/16 at 09:00; Stop 11/01/16 at 07:59; Status DC Risperidone (RisperDAL CONSTA) 50 mg Q2WKS IM Last administered on 10/30/16 14: 05; Start 10/30/16 at 09:00 Furosemide (Lasix) 60 mg BID92 PO Last administered on 11/09/16 14:00; Start 10/30/16 at 09:00 Insulin Detemir (Levemir) 55 units QHS SQ Last administered on 11/09/16 19:41 ; Start 10/30/16 at 21:00 Albuterol/ Ipratropium (Duoneb) 3 ml PRN DAILY PRN NEB SHORTNESS OF BREATH; Start 10/30/16 at 01:15; Stop 10/30/16 at 02:29; Status DC Potassium Chloride (KCl Oral Soln) 20 meq BIDWMEALS PO Last administered on 08:33; Start 10/30/16 at 08:00; Stop 11/05/16 at 10:08; Status DC Metformin HCl (Glucophage) 1,000 mg BIDWMEALS PO Last administered on 17:04; Start 10/30/16 at 08:00 Clonazepam (KlonoPIN) 0.5 mg DAILY16 PO Last administered on 11/08/16 16:27; Start 10/30/16 at 16:00; Stop 11/08/16 at 18:35; Status DC Divalproex Sodium (Depakote Er) 500 mg QID PO Last administered on 10/31/16 17: 09; Start 10/30/16 at 09:00; Stop 10/31/16 at 17:43; Status DC Albuterol/ Ipratropium (Duoneb) 3 ml PRN QID PRN NEB SHORTNESS OF BREATH; Start 10/31/16 at 01:15 Olanzapine (ZyPREXA ZYDIS) 5 mg PRN Q2HR PRN PO PSYCHOSIS Last administered on 11/08/16 08:14; Start 10/30/16 at 05:15 Mirtazapine (Remeron) 15 mg QHS PO Last administered on 11/09/16 19:39; Start 10/30/16 at 21:00 Buspirone HCl (Buspar) 5 mg BID PO Last administered on 11/09/16 07:55; Start 10/30/16 at 21:00; Stop 11/09/16 at 18:36; Status DC Vitamin D (Vitamin D3) 50,000 unit WEEKLY PO Last administered on 11/08/16 08: 14; Start 11/01/16 at 09:00 Divalproex Sodium (Depakote Sprinkles) 1,000 mg BID PO Last administered on 11/02 07:48; Start 10/31/16 at 21:00; Stop 11/02/16 at 18:49; Status DC Haloperidol Lactate (Haldol Oral) 5 mg DAILY PO Last administered on 11/04/16 08:48; Start 11/01/16 at 09:00; Stop 11/04/16 at 18:01; Status DC Divalproex Sodium (Depakote Sprinkles) 750 mg BID PO Last administered on 19:39; Start 11/02/16 at 21:00 Haloperidol Lactate (Haldol Oral) 7.5 mg DAILY PO Last administered on 08:53; Start 11/05/16 at 09:00; Stop 11/07/16 at 18:29; Status DC Potassium Chloride (KCl Oral Soln) 40 meq BIDWMEALS PO Last administered on 17:04; Start 11/05/16 at 17:00 Magnesium Oxide (Magnesium Oxide) 400 mg DAILYBFRLUN PO Last administered on 08:05; Start 11/05/16 at 11:30 Potassium Chloride (Klor-Con) 20 meq 1X ONCE PO Last administered on 13:27; Start 11/05/16 at 10:30; Stop 11/05/16 at 10:31; Status DC Haloperidol Lactate (Haldol Oral) 10 mg DAILY PO Last administered on 07:55; Start 11/08/16 at 09:00 Clonazepam (KlonoPIN) 0.5 mg BIDACBL PO ; Start 11/09/16 at 07:30; Stop at 07:58; Status DC Clonazepam (KlonoPIN) 1 mg HS PO Last administered on 11/09/16 19:39; Start at 21:00 Clonazepam (KlonoPIN) 0.5 mg BID94 PO Last administered on 11/09/16 15:14; Start 11/09/16 at 09:00 Buspirone HCl (Buspar) 5 mg QID PO Last administered on 11/09/16 19:39; Start 11/09/16 at 21:00 Active Scripts Active Reported Seroquel (Quetiapine Fumarate) 100 Mg Tablet 150 Mg PO QID Risperdal Consta (Risperidone Microspheres) 50 Mg/2 Ml Disp.syrin 50 Mg IM Q2WKS Potassium Chloride Oral Liquid (Potassium Chloride) 20 Meq/15 Ml Liquid 20 Meq PO BID Metformin Hcl 1,000 Mg Tablet 1,000 Mg PO BIDWMEALS Levemir Flextouch (Insulin Detemir) 100 Unit/1 Ml Insuln.pen 55 Unit SQ QHS Haldol (Haloperidol Lactate) 5 Mg/1 Ml Ampul 5 Mg IM PRN Q6HRS PRN Clonazepam 1 Mg Tablet 1 Mg PO BID Furosemide 40 Mg Tablet 60 Mg PO BID92 Hold for SBP less than 100. After held dose, reassess in 2 hours. If SBP is above threshold, administer dose as ordered. If SBP is below threshold, contact provider for additional instructions. Duoneb 0.5-3(2.5) Mg/3 Ml (Albuterol/Ipratropium) 3 Ml Ampul.neb 3 Ml NEB PRN QID PRN Depakote Er (Divalproex Sodium) 500 Mg Tab.er.24h 500 Mg PO QID Give with food. DO NOT CRUSH OR CHEW Cyanocobalamin Injection (Cyanocobalamin (Vitamin B-12)) 1,000 Mcg/1 Ml Vial 2, 000 Mcg IM [id number] Clonazepam 0.5 Mg Tablet 0.5 Mg PO DAILY16 Benztropine Mesylate 0.5 Mg Tablet 0.5 Mg PO BID Diagnosis: Problems: (1) Schizophrenia (2) Acute exacerbation of psychosis (3) Depression (4) Schizoaffective disorder (5) Anxiety disorder (6) Impulse control disorder (7) Schizoaffective disorder, chronic condition with acute exacerbation KALIN STARKS MD Nov 09, 2016 20:47
--- NOTE | 2016-11-09 23:03 | NUR ---
Behavior Intervention Response and Plan: BIRP Note: Behavior: Assumed Care of patient, patient located in Patient Room at shift change. Patient exhibited the following behavior Irritable, Demanding, Resistive. Brief assessment on rounds of vital signs, medication needs, lab studies, and pain. Treatment plan problems 1-2. Intervention: Patient assessed and the following interventions initiated safety checks 15 Minute Checks Cognitive Assessment , Head to toe Assessment , Medications. Response: After interactions and interventions patient responded in the following manner, Disorganized , Demanding ,Irritable. Continue to assess behaviors and condition will continue to monitor throughout the shift as needed. 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 Continue to assess patient for changes in above assessment. Monitor for medication needs, pain, and safety concerns. Hourly rounding performed to ensure safe environment.
[2016-11-10 06:06] VITALS: BP 107/60
[2016-11-10] MEDS: POTASSIUM CHLORIDE 20 MEQ/15 ML ORAL LIQUID. PO SCH ×3 (08:01→17:24)
[2016-11-10] MEDS: FUROSEMIDE 40 MG TABLET PO SCH ×2 (08:02→13:04)
[2016-11-10] MEDS: metFORMIN 500 MG TABLET PO SCH ×3 (08:02→17:24)
[2016-11-10] MEDS: clonazePAM 0.5 MG TABLET PO SCH ×2 (08:02→17:24)
[2016-11-10] MEDS: HALOPERIDOL 10 MG/5 ML ORAL.CONC. PO SCH (08:02)
[2016-11-10] MEDS: busPIRone 5 MG TABLET. PO SCH ×4 (08:02→19:47)
[2016-11-10] MEDS: BENZTROPINE MESYLATE 0.5 MG TABLET PO SCH ×2 (08:02→19:47)
[2016-11-10] MEDS: DIVALPROEX 125 MG CAP.SPRINK PO SCH ×2 (08:03→19:46)
[2016-11-10] MEDS: MAGNESIUM OXIDE 400 MG TABLET PO SCH (08:05)
--- NOTE | 2016-11-10 08:25 | PN ---
DATE: 11/09/2016 PSYCHIATRIC PROGRESS NOTE This note covers elements not covered in my initial note of 11/09/2016. SUBJECTIVE: Per nursing report, the patient still remains very resistive to taking her medications, difficult to redirect, and possibly hallucinating. When the nursing staff questioned her on why she is not taking her medication, she states "my grandmother is talking to me. She is telling me not to take the medications." Some of her responses are bizarre. For example, when nursing staff asked her about her family she stated she has 114 children. She refused her Depakote Sprinkles, had Froot Loops for lunch, yelling at times. REVIEW OF SYSTEMS: Impairment of ambulation. No CV, , pulmonary, eye system symptoms on review. Reliability varies. MENTAL STATUS EXAM: Oriented to herself and situation. Speech coherent, at times, somewhat pressured. Abstraction fair, computation impaired, language function intact. Mood and affect is noted, labile. LABORATORY DATA: Reviewed. IMPRESSION: Schizoaffective disorder, bipolar type, mixed with psychotic features. Rest unchanged as noted in my initial note. PLAN: Increase BuSpar from 5 mg twice a day to 5 mg 4 times a day. I would prefer not to increase the Haldol just yet despite the questionable psychotic symptoms since we just recently increased it. Also, valproic acid level is therapeutic. We will continue Depakote at current dosage together with Klonopin, Cogentin, Remeron, Risperdal Consta, Zyprexa p.r.n. She is quite complicated in the sense that despite 2 antipsychotics at reasonably high dosages, one of which is a Depo preparation. She is still resistive symptomatically and remains psychotic. We will have to do the best we can. One option would be to change to Clozaril, but given the fact that she is not compliant orally and we cannot use Clozaril parenterally this may in fact glove turner and former automatic worse then where we are at this time. KALIN STARKS MD DR: TRACIE/karli JOB#: [id number] / [id number]
--- NOTE | 2016-11-10 14:42 | NUR ---
Behavior Intervention Response and Plan: BIRP Note: Behavior: Assumed Care of patient, patient located in Day Room at shift change. Patient exhibited the following behavior Irritable, Delusions, Demanding. Brief assessment on rounds of vital signs, medication needs, lab studies, and pain. Treatment plan problems . Intervention: Patient assessed and the following interventions initiated safety checks 15 Minute Checks Cognitive Assessment , Head to toe Assessment , Medications. Response: After interactions and interventions patient responded in the following manner, Demanding , Irritable ,Resistive. Continue to assess behaviors and condition will continue to monitor throughout the shift as needed. Plan: Continue to monitor Master Treatment Plan for patient's progress toward short term goals of Medication Compliance, Decreased Anxiety, rn long term care goals to return to previous living setting vs placement. Continue to assess patient for changes in above assessment. Monitor for medication needs, pain, and safety concerns. Hourly rounding performed to ensure safe environment.
[2016-11-10 16:32] VITALS: BP 123/71
[2016-11-10] MEDS: MIRTAZAPINE 15 MG TABLET PO SCH (19:46)
[2016-11-10] MEDS: clonazePAM 1 MG TABLET PO SCH (19:46)
[2016-11-10] MEDS: INSULIN DETEMIR 300 UNITS/3 ML INSULN.PEN. SQ SCH (19:48)
--- NOTE | 2016-11-10 20:00 | NUR ---
Behavior Intervention Response and Plan: BIRP Note: Behavior: Assumed Care of patient, patient located in Day Room at shift change. Patient exhibited the following behavior Demanding, Irritable, Restless. Brief assessment on rounds of vital signs, medication needs, lab studies, and pain. Treatment plan problems . Intervention: Patient assessed and the following interventions initiated safety checks 15 Minute Checks Cognitive Assessment , Head to toe Assessment , Medications. Response: After interactions and interventions patient responded in the following manner, Restless , Demanding ,Irritable. Continue to assess behaviors and condition will continue to monitor throughout the shift as needed. Plan: Continue to monitor Master Treatment Plan for patient's progress toward short term goals of Decreased Agitation, Decreased Anxiety, care home goals to return to previous living setting vs placement. Continue to assess patient for changes in above assessment. Monitor for medication needs, pain, and safety concerns. Hourly rounding performed to ensure safe environment.
--- NOTE | 2016-11-10 22:37 | PDOC ---
Exam Napoleon Demential Exam: Napoleon Note: Please also refer to the separate dictated note~for this date of service dictated separately.~Patient seen individually. Discussed the patient with Nursing staff reviewed the chart.~Reviewed interim history and current functioning. Reviewed vital signs,~Labs/ Radiology~and current medications noted below. Continue current treatment with the changes noted in the dictated addendum note Assessment: Vital Signs: Vital Signs Date Time Temp Pulse Resp B/P (MAP) Pulse Ox O2 Delivery O2 Flow Rate FiO2 11/10/16 16:32 97.5 71 20 123/71 (88) 98 11/08/16 15:52 Room Air 11/07/16 05:21 2.0 I&O Intake and Output 11/10/16 07:00 Intake Total 720 ml Balance 720 ml Intake Oral 720 ml # Bowel Movements 1 Labs: Laboratory Tests Test 11/10/16 07:12 11/10/16 11:46 11/10/16 19:31 Glucose (Fingerstick) 72 mg/dL (70-99) 86 mg/dL (70-99) 209 mg/dL (70-99) H Current Medications: Meds: Current Medications Acetaminophen (Tylenol) 650 mg PRN Q6HRS PRN PO PAIN / TEMP; Start 10/30/16 at 01:15 Multi-Ingredient Ointment (Analgesic [place]) 1 lyndon PRN QID PRN TP MUSCLE PAIN; Start 10/30/16 at 01:15 Al Hydroxide/Mg Hydroxide (Mylanta Plus Xs) 15 ml PRN AFTMEALHC PRN PO DYSPEPSIA; Start 10/30/16 at 01:15 Magnesium Hydroxide (Milk Of Magnesia) 2,400 mg PRN QHS PRN PO CONSTIPATION; Start 10/30/16 at 01:15 Benztropine Mesylate (Cogentin) 0.5 mg BID PO Last administered on 11/10/16 19 :47; Start 10/30/16 at 09:00 Clonazepam (KlonoPIN) 0.5 mg DAILY PO ; Start 10/30/16 at 09:00; Stop 10/30/16 at 09:00; Status DC Clonazepam (KlonoPIN) 1 mg BID PO Last administered on 11/08/16 08:14; Start 10/30/16 at 09:00; Stop 11/08/16 at 18:35; Status DC Divalproex Sodium (Depakote Er) 500 mg BID PO ; Start 10/30/16 at 09:00; Stop 10/30/16 at 09:00; Status DC Quetiapine Fumarate (SEROquel) 150 mg QID PO Last administered on 10/31/16 20: 07; Start 10/30/16 at 09:00; Stop 11/01/16 at 07:59; Status DC Risperidone (RisperDAL CONSTA) 50 mg Q2WKS IM Last administered on 10/30/16 14: 05; Start 10/30/16 at 09:00 Furosemide (Lasix) 60 mg BID92 PO Last administered on 11/10/16 13:04; Start 10/30/16 at 09:00 Insulin Detemir (Levemir) 55 units QHS SQ Last administered on 11/10/16 19:48 ; Start 10/30/16 at 21:00 Albuterol/ Ipratropium (Duoneb) 3 ml PRN DAILY PRN NEB SHORTNESS OF BREATH; Start 10/30/16 at 01:15; Stop 10/30/16 at 02:29; Status DC Potassium Chloride (KCl Oral Soln) 20 meq BIDWMEALS PO Last administered on 08:33; Start 10/30/16 at 08:00; Stop 11/05/16 at 10:08; Status DC Metformin HCl (Glucophage) 1,000 mg BIDWMEALS PO Last administered on 08:02; Start 10/30/16 at 08:00 Clonazepam (KlonoPIN) 0.5 mg DAILY16 PO Last administered on 11/08/16 16:27; Start 10/30/16 at 16:00; Stop 11/08/16 at 18:35; Status DC Divalproex Sodium (Depakote Er) 500 mg QID PO Last administered on 10/31/16 17: 09; Start 10/30/16 at 09:00; Stop 10/31/16 at 17:43; Status DC Albuterol/ Ipratropium (Duoneb) 3 ml PRN QID PRN NEB SHORTNESS OF BREATH; Start 10/31/16 at 01:15 Olanzapine (ZyPREXA ZYDIS) 5 mg PRN Q2HR PRN PO PSYCHOSIS Last administered on 11/08/16 08:14; Start 10/30/16 at 05:15 Mirtazapine (Remeron) 15 mg QHS PO Last administered on 11/10/16 19:46; Start 10/30/16 at 21:00 Buspirone HCl (Buspar) 5 mg BID PO Last administered on 11/09/16 07:55; Start 10/30/16 at 21:00; Stop 11/09/16 at 18:36; Status DC Vitamin D (Vitamin D3) 50,000 unit WEEKLY PO Last administered on 11/08/16 08: 14; Start 11/01/16 at 09:00 Divalproex Sodium (Depakote Sprinkles) 1,000 mg BID PO Last administered on 11/02 07:48; Start 10/31/16 at 21:00; Stop 11/02/16 at 18:49; Status DC Haloperidol Lactate (Haldol Oral) 5 mg DAILY PO Last administered on 11/04/16 08:48; Start 11/01/16 at 09:00; Stop 11/04/16 at 18:01; Status DC Divalproex Sodium (Depakote Sprinkles) 750 mg BID PO Last administered on 19:46; Start 11/02/16 at 21:00 Haloperidol Lactate (Haldol Oral) 7.5 mg DAILY PO Last administered on 08:53; Start 11/05/16 at 09:00; Stop 11/07/16 at 18:29; Status DC Potassium Chloride (KCl Oral Soln) 40 meq BIDWMEALS PO Last administered on 08:01; Start 11/05/16 at 17:00 Magnesium Oxide (Magnesium Oxide) 400 mg DAILYBFRLUN PO Last administered on 08:05; Start 11/05/16 at 11:30 Potassium Chloride (Klor-Con) 20 meq 1X ONCE PO Last administered on 13:27; Start 11/05/16 at 10:30; Stop 11/05/16 at 10:31; Status DC Haloperidol Lactate (Haldol Oral) 10 mg DAILY PO Last administered on 08:02; Start 11/08/16 at 09:00 Clonazepam (KlonoPIN) 0.5 mg BIDACBL PO ; Start 11/09/16 at 07:30; Stop at 07:58; Status DC Clonazepam (KlonoPIN) 1 mg HS PO Last administered on 11/10/16 19:46; Start at 21:00 Clonazepam (KlonoPIN) 0.5 mg BID94 PO Last administered on 11/10/16 17:24; Start 11/09/16 at 09:00 Buspirone HCl (Buspar) 5 mg QID PO Last administered on 11/10/16 19:47; Start 11/09/16 at 21:00 Active Scripts Active Reported Seroquel (Quetiapine Fumarate) 100 Mg Tablet 150 Mg PO QID Risperdal Consta (Risperidone Microspheres) 50 Mg/2 Ml Disp.syrin 50 Mg IM Q2WKS Potassium Chloride Oral Liquid (Potassium Chloride) 20 Meq/15 Ml Liquid 20 Meq PO BID Metformin Hcl 1,000 Mg Tablet 1,000 Mg PO BIDWMEALS Levemir Flextouch (Insulin Detemir) 100 Unit/1 Ml Insuln.pen 55 Unit SQ QHS Haldol (Haloperidol Lactate) 5 Mg/1 Ml Ampul 5 Mg IM PRN Q6HRS PRN Clonazepam 1 Mg Tablet 1 Mg PO BID Furosemide 40 Mg Tablet 60 Mg PO BID92 Hold for SBP less than 100. After held dose, reassess in 2 hours. If SBP is above threshold, administer dose as ordered. If SBP is below threshold, contact provider for additional instructions. Duoneb 0.5-3(2.5) Mg/3 Ml (Albuterol/Ipratropium) 3 Ml Ampul.neb 3 Ml NEB PRN QID PRN Depakote Er (Divalproex Sodium) 500 Mg Tab.er.24h 500 Mg PO QID Give with food. DO NOT CRUSH OR CHEW Cyanocobalamin Injection (Cyanocobalamin (Vitamin B-12)) 1,000 Mcg/1 Ml Vial 2, 000 Mcg IM [id number] Clonazepam 0.5 Mg Tablet 0.5 Mg PO DAILY16 Benztropine Mesylate 0.5 Mg Tablet 0.5 Mg PO BID Diagnosis: Problems: (1) Schizophrenia (2) Acute exacerbation of psychosis (3) Depression (4) Schizoaffective disorder (5) Anxiety disorder (6) Impulse control disorder (7) Schizoaffective disorder, chronic condition with acute exacerbation KALIN STARKS MD Nov 10, 2016 22:37
[2016-11-11 06:34] VITALS: BP 147/75
[2016-11-11 07:24] LABS: BASO % 1 % (0-3); EOS % 1 % (0-3); HEMATOCRIT 39.4 % (36.0-47.0); HEMOGLOBIN 11.9 g/dL (12.0-15.5); LYMPH # 1.4 x10^3/uL (1.0-4.8); LYMPH % 24 % (24-48); MEAN CORPUSCULAR HEMOGLOBIN 25 pg (25-35); MEAN CORPUSCULAR HGB CONC 30 g/dL (31-37); MEAN CORPUSCULAR VOLUME 82 fL (79-100); MONO # 0.5 x10^3/uL (0.0-1.1); MONO % 9 % (0-9); NEUT # 3.9 x10^3uL (1.8-7.7); NEUT % 66 % (31-73); PLATELET COUNT 205 x10^3/uL (140-400); RED BLOOD COUNT 4.81 x10^6/uL (3.50-5.40); RED CELL DISTRIBUTION WIDTH 18.8 % (11.5-14.5); WHITE BLOOD COUNT 5.9 x10^3/uL (4.0-11.0)
[2016-11-11 08:40] LABS: ALBUMIN 2.9 g/dL (3.4-5.0); ALBUMIN/GLOBULIN RATIO 0.6 (1.0-1.7); ALK PHOS 107 U/L (46-116); ALT (SGPT) 20 U/L (14-59); ANION GAP 6 (6-14); AST (SGOT) 15 U/L (15-37); BLOOD UREA NITROGEN 18 mg/dL (7-20); BUN/CREATININE RATIO 20 (6-20); CALCIUM 9.1 mg/dL (8.5-10.1); CARBON DIOXIDE 40 mmol/L (21-32); CHLORIDE 96 mmol/L (98-107); CREATININE 0.9 mg/dL (0.6-1.0); GFR 63.4; GLUCOSE 68 mg/dL (70-99); MAGNESIUM 1.7 mg/dL (1.8-2.4); POTASSIUM 3.6 mmol/L (3.5-5.1); SODIUM 142 mmol/L (136-145); TOTAL BILIRUBIN 0.1 mg/dL (0.2-1.0); TOTAL PROTEIN 8.1 g/dL (6.4-8.2)
[2016-11-11] MEDS: POTASSIUM CHLORIDE 20 MEQ/15 ML ORAL LIQUID. PO SCH ×4 (08:40→17:00)
[2016-11-11] MEDS: HALOPERIDOL 10 MG/5 ML ORAL.CONC. PO SCH (08:40)
[2016-11-11] MEDS: DIVALPROEX 125 MG CAP.SPRINK PO SCH ×2 (08:40→19:42)
[2016-11-11] MEDS: metFORMIN 500 MG TABLET PO SCH ×2 (08:40→16:33)
[2016-11-11] MEDS: busPIRone 5 MG TABLET. PO SCH ×4 (08:40→19:43)
[2016-11-11] MEDS: BENZTROPINE MESYLATE 0.5 MG TABLET PO SCH ×2 (08:40→19:42)
[2016-11-11] MEDS: clonazePAM 0.5 MG TABLET PO SCH ×2 (08:43→16:33)
[2016-11-11] MEDS: FUROSEMIDE 40 MG TABLET PO SCH ×2 (08:43→15:18)
[2016-11-11 08:51] LABS: VAL ACID 51 mcg/mL (50-100)
--- NOTE | 2016-11-11 10:07 | NUR ---
Behavior Intervention Response and Plan: BIRP Note: Behavior: Assumed Care of patient, patient located in Day Room at shift change. Patient exhibited the following behavior Demanding, Irritable, suspicious, cooperative with encouragement. Brief assessment on rounds of vital signs, medication needs, lab studies, and pain. Treatment plan problems . Intervention: Patient assessed and the following interventions initiated safety checks 15 Minute Checks Cognitive Assessment , Head to toe Assessment , Medications. Response: After interactions and interventions patient responded in the following manner, Demanding, Irritable. Continue to assess behaviors and condition will continue to monitor throughout the shift as needed. Plan: Continue to monitor Master Treatment Plan for patient's progress toward short term goals of Decreased Agitation, Decreased Anxiety, care home goals to return to previous living setting vs placement. Continue to assess patient for changes in above assessment. Monitor for medication needs, pain, and safety concerns. Hourly rounding performed to ensure safe environment.
[2016-11-11] MEDS: MAGNESIUM OXIDE 400 MG TABLET PO SCH (11:30)
--- NOTE | 2016-11-11 11:50 | NUR ---
Pt is agitated at this time continuously yelling out during music group and will not redirect. 1214: Ashely reported to pt that pt is refusing her blood sugar to be taken. Nurse spoke with pt and encouraged pt to have her blood sugar checked and offered to walk pt to her rest room and to lunch when finished. Pt stated she doesn't need her blood sugar checked. Nurse reassured and reminded pt that she does as she is diabetic and we need to make sure her blood sugar is at a safe level and pt was redirected to a chair. Pt stated "I aint got no blood." Nurse held pts hand and while WASTE CHOPPER attempted to check blood sugar pt attempted to bite nurse and WASTE CHOPPER. Staff redirected pt and told her that biting is not appropriate behavior and her blood sugar must be checked to make sure it is at a safe level. Pt yelled out "you don't do the others like that!" nurse reassured pt that anyone who is diabetic gets their blood sugar checked. Pt stated to nurse "Im going to pull your hair watch me." Nurse redirected pt and informed her that pulling hair is not appropriate behavior and encouraged pt to attend lunch. Pt then walked herself to lunch.
[2016-11-11 16:27] VITALS: BP 126/76
--- NOTE | 2016-11-11 18:03 | NUR ---
Pt has been suspicious of staff giving her food all day. Pt did not drink the gatorade with the potassium hidden in it. Pt will want food opened in front of her or if food is presented to her already opened she will demand a new one.
[2016-11-11] MEDS: clonazePAM 1 MG TABLET PO SCH (19:43)
[2016-11-11] MEDS: MIRTAZAPINE 15 MG TABLET PO SCH (19:52)
--- NOTE | 2016-11-11 21:12 | PDOC ---
Exam Napoleon Demential Exam: Napoleon Note: Please also refer to the separate dictated note~for this date of service dictated separately.~Patient seen individually. Discussed the patient with Nursing staff reviewed the chart.~Reviewed interim history and current functioning. Reviewed vital signs,~Labs/ Radiology~and current medications noted below. Continue current treatment with the changes noted in the dictated addendum note Assessment: Vital Signs: Vital Signs Date Time Temp Pulse Resp B/P (MAP) Pulse Ox O2 Delivery O2 Flow Rate FiO2 11/11/16 16:27 98.0 71 18 126/76 (93) 91 Room Air 11/07/16 05:21 2.0 I&O Intake and Output 11/11/16 07:00 Intake Total 1320 ml Balance 1320 ml Intake Oral 1320 ml Labs: Laboratory Tests Test 11/11/16 06:59 11/11/16 07:24 11/11/16 12:09 11/11/16 16:46 White Blood Count 5.9 x10^3/uL (4.0-11.0) Red Blood Count 4.81 x10^6/uL (3.50-5.40) Hemoglobin 11.9 g/dL (12.0-15.5) L Hematocrit 39.4 % (36.0-47.0) Mean Corpuscular Volume 82 fL (79-100) Mean Corpuscular Hemoglobin 25 pg (25-35) Mean Corpuscular Hemoglobin Concent 30 g/dL (31-37) L Red Cell Distribution Width 18.8 % (11.5-14.5) H Platelet Count 205 x10^3/uL (140-400) Neutrophils (%) (Auto) 66 % (31-73) Lymphocytes (%) (Auto) 24 % (24-48) Monocytes (%) (Auto) 9 % (0-9) Eosinophils (%) (Auto) 1 % (0-3) Basophils (%) (Auto) 1 % (0-3) Neutrophils # (Auto) 3.9 x10^3uL (1.8-7.7) Lymphocytes # (Auto) 1.4 x10^3/uL (1.0-4.8) Monocytes # (Auto) 0.5 x10^3/uL (0.0-1.1) Eosinophils # (Auto) 0.0 x10^3/uL (0.0-0.7) Basophils # (Auto) 0.0 x10^3/uL (0.0-0.2) Sodium Level 142 mmol/L (136-145) Potassium Level 3.6 mmol/L (3.5-5.1) Chloride Level 96 mmol/L (98-107) L Carbon Dioxide Level 40 mmol/L (21-32) H Anion Gap 6 (6-14) Blood Urea Nitrogen 18 mg/dL (7-20) Creatinine 0.9 mg/dL (0.6-1.0) Estimated GFR (Cockcroft-Gault) 63.4 BUN/Creatinine Ratio 20 (6-20) Glucose Level 68 mg/dL (70-99) L Calcium Level 9.1 mg/dL (8.5-10.1) Magnesium Level 1.7 mg/dL (1.8-2.4) L Total Bilirubin 0.1 mg/dL (0.2-1.0) L Aspartate Amino Transferase (AST) 15 U/L (15-37) Alanine Aminotransferase (ALT) 20 U/L (14-59) Alkaline Phosphatase 107 U/L (46-116) Total Protein 8.1 g/dL (6.4-8.2) Albumin 2.9 g/dL (3.4-5.0) L Albumin/Globulin Ratio 0.6 (1.0-1.7) L Valproic Acid Level 51 mcg/mL (50-100) Valproic Acid Last Dose Date 11/10/16 Valproic Acid Last Dose Time 2100 Glucose (Fingerstick) 104 mg/dL (70-99) H 179 mg/dL (70-99) H 67 mg/dL (70-99) L Test 11/11/16 19:08 Glucose (Fingerstick) 145 mg/dL (70-99) H Current Medications: Meds: Current Medications Acetaminophen (Tylenol) 650 mg PRN Q6HRS PRN PO PAIN / TEMP; Start 10/30/16 at 01:15 Multi-Ingredient Ointment (Analgesic [place]) 1 lyndon PRN QID PRN TP MUSCLE PAIN; Start 10/30/16 at 01:15 Al Hydroxide/Mg Hydroxide (Mylanta Plus Xs) 15 ml PRN AFTMEALHC PRN PO DYSPEPSIA; Start 10/30/16 at 01:15 Magnesium Hydroxide (Milk Of Magnesia) 2,400 mg PRN QHS PRN PO CONSTIPATION; Start 10/30/16 at 01:15 Benztropine Mesylate (Cogentin) 0.5 mg BID PO Last administered on 11/11/16 19 :42; Start 10/30/16 at 09:00 Clonazepam (KlonoPIN) 0.5 mg DAILY PO ; Start 10/30/16 at 09:00; Stop 10/30/16 at 09:00; Status DC Clonazepam (KlonoPIN) 1 mg BID PO Last administered on 11/08/16 08:14; Start 10/30/16 at 09:00; Stop 11/08/16 at 18:35; Status DC Divalproex Sodium (Depakote Er) 500 mg BID PO ; Start 10/30/16 at 09:00; Stop 10/30/16 at 09:00; Status DC Quetiapine Fumarate (SEROquel) 150 mg QID PO Last administered on 10/31/16 20: 07; Start 10/30/16 at 09:00; Stop 11/01/16 at 07:59; Status DC Risperidone (RisperDAL CONSTA) 50 mg Q2WKS IM Last administered on 10/30/16 14: 05; Start 10/30/16 at 09:00 Furosemide (Lasix) 60 mg BID92 PO Last administered on 11/11/16 08:43; Start 10/30/16 at 09:00 Insulin Detemir (Levemir) 55 units QHS SQ Last administered on 11/10/16 19:48 ; Start 10/30/16 at 21:00 Albuterol/ Ipratropium (Duoneb) 3 ml PRN DAILY PRN NEB SHORTNESS OF BREATH; Start 10/30/16 at 01:15; Stop 10/30/16 at 02:29; Status DC Potassium Chloride (KCl Oral Soln) 20 meq BIDWMEALS PO Last administered on 08:33; Start 10/30/16 at 08:00; Stop 11/05/16 at 10:08; Status DC Metformin HCl (Glucophage) 1,000 mg BIDWMEALS PO Last administered on 16:33; Start 10/30/16 at 08:00 Clonazepam (KlonoPIN) 0.5 mg DAILY16 PO Last administered on 11/08/16 16:27; Start 10/30/16 at 16:00; Stop 11/08/16 at 18:35; Status DC Divalproex Sodium (Depakote Er) 500 mg QID PO Last administered on 10/31/16 17: 09; Start 10/30/16 at 09:00; Stop 10/31/16 at 17:43; Status DC Albuterol/ Ipratropium (Duoneb) 3 ml PRN QID PRN NEB SHORTNESS OF BREATH; Start 10/31/16 at 01:15 Olanzapine (ZyPREXA ZYDIS) 5 mg PRN Q2HR PRN PO PSYCHOSIS Last administered on 11/08/16 08:14; Start 10/30/16 at 05:15 Mirtazapine (Remeron) 15 mg QHS PO Last administered on 11/11/16 19:52; Start 10/30/16 at 21:00 Buspirone HCl (Buspar) 5 mg BID PO Last administered on 11/09/16 07:55; Start 10/30/16 at 21:00; Stop 11/09/16 at 18:36; Status DC Vitamin D (Vitamin D3) 50,000 unit WEEKLY PO Last administered on 11/08/16 08: 14; Start 11/01/16 at 09:00 Divalproex Sodium (Depakote Sprinkles) 1,000 mg BID PO Last administered on 11/02 07:48; Start 10/31/16 at 21:00; Stop 11/02/16 at 18:49; Status DC Haloperidol Lactate (Haldol Oral) 5 mg DAILY PO Last administered on 11/04/16 08:48; Start 11/01/16 at 09:00; Stop 11/04/16 at 18:01; Status DC Divalproex Sodium (Depakote Sprinkles) 750 mg BID PO Last administered on 19:42; Start 11/02/16 at 21:00 Haloperidol Lactate (Haldol Oral) 7.5 mg DAILY PO Last administered on 08:53; Start 11/05/16 at 09:00; Stop 11/07/16 at 18:29; Status DC Potassium Chloride (KCl Oral Soln) 40 meq BIDWMEALS PO Last administered on 08:01; Start 11/05/16 at 17:00 Magnesium Oxide (Magnesium Oxide) 400 mg DAILYBFRLUN PO Last administered on 08:05; Start 11/05/16 at 11:30 Potassium Chloride (Klor-Con) 20 meq 1X ONCE PO Last administered on 13:27; Start 11/05/16 at 10:30; Stop 11/05/16 at 10:31; Status DC Haloperidol Lactate (Haldol Oral) 10 mg DAILY PO Last administered on 08:40; Start 11/08/16 at 09:00 Clonazepam (KlonoPIN) 0.5 mg BIDACBL PO ; Start 11/09/16 at 07:30; Stop at 07:58; Status DC Clonazepam (KlonoPIN) 1 mg HS PO Last administered on 11/11/16 19:43; Start at 21:00 Clonazepam (KlonoPIN) 0.5 mg BID94 PO Last administered on 11/11/16 16:33; Start 11/09/16 at 09:00 Buspirone HCl (Buspar) 5 mg QID PO Last administered on 11/11/16 19:43; Start 11/09/16 at 21:00 Active Scripts Active Reported Seroquel (Quetiapine Fumarate) 100 Mg Tablet 150 Mg PO QID Risperdal Consta (Risperidone Microspheres) 50 Mg/2 Ml Disp.syrin 50 Mg IM Q2WKS Potassium Chloride Oral Liquid (Potassium Chloride) 20 Meq/15 Ml Liquid 20 Meq PO BID Metformin Hcl 1,000 Mg Tablet 1,000 Mg PO BIDWMEALS Levemir Flextouch (Insulin Detemir) 100 Unit/1 Ml Insuln.pen 55 Unit SQ QHS Haldol (Haloperidol Lactate) 5 Mg/1 Ml Ampul 5 Mg IM PRN Q6HRS PRN Clonazepam 1 Mg Tablet 1 Mg PO BID Furosemide 40 Mg Tablet 60 Mg PO BID92 Hold for SBP less than 100. After held dose, reassess in 2 hours. If SBP is above threshold, administer dose as ordered. If SBP is below threshold, contact provider for additional instructions. Duoneb 0.5-3(2.5) Mg/3 Ml (Albuterol/Ipratropium) 3 Ml Ampul.neb 3 Ml NEB PRN QID PRN Depakote Er (Divalproex Sodium) 500 Mg Tab.er.24h 500 Mg PO QID Give with food. DO NOT CRUSH OR CHEW Cyanocobalamin Injection (Cyanocobalamin (Vitamin B-12)) 1,000 Mcg/1 Ml Vial 2, 000 Mcg IM [id number] Clonazepam 0.5 Mg Tablet 0.5 Mg PO DAILY16 Benztropine Mesylate 0.5 Mg Tablet 0.5 Mg PO BID Diagnosis: Problems: (1) Schizophrenia (2) Acute exacerbation of psychosis (3) Depression (4) Schizoaffective disorder (5) Anxiety disorder (6) Impulse control disorder (7) Schizoaffective disorder, chronic condition with acute exacerbation KALIN STARKS MD Nov 11, 2016 21:12
[2016-11-11] MEDS: INSULIN DETEMIR 300 UNITS/3 ML INSULN.PEN. SQ SCH (21:14)
--- NOTE | 2016-11-11 21:37 | NUR ---
Behavior Intervention Response and Plan: BIRP Note: Behavior: Assumed Care of patient, patient located in Day Room at shift change. Patient exhibited the following behavior Demanding, Irritable, suspicious, cooperative with encouragement. Brief assessment on rounds of vital signs, medication needs, lab studies, and pain. Treatment plan problems 1-2. Intervention: Patient assessed and the following interventions initiated safety checks 15 Minute Checks Cognitive Assessment , Head to toe Assessment , Medications. Response: After interactions and interventions patient responded in the following manner, Demanding, Irritable. Continue to assess behaviors and condition will continue to monitor throughout the shift as needed. Plan: Continue to monitor Master Treatment Plan for patient's progress toward short term goals of Decreased Agitation, Decreased Anxiety, fci goals to return to previous living setting vs placement. Continue to assess patient for changes in above assessment. Monitor for medication needs, pain, and safety concerns. Hourly rounding performed to ensure safe environment.
--- NOTE | 2016-11-11 23:22 | NUR ---
Nurses Note Pt is suspicious, paranoid, argumentative and angry this pm. At first refused her insulin but then accepted it but only in the site she wanted it injected into. Meds have to be hidden in boost or she won't take them. Sits in the chair in day room yelling out alternating with dozing.
--- NOTE | 2016-11-11 23:57 | PN ---
DATE: 11/10/2016 PSYCHIATRIC PROGRESS NOTE This is a late entry of 11/10/2016, covers elements not covered in my initial note. SUBJECTIVE: The patient has been resistant to taking medications. I spent a fair amount of time trying to convince her to be compliant with limited results. Nursing staff has spent an extensive amount of time for the same reason. She did get Klonopin, BuSpar in the evening. We will check labs in the morning including valproic acid level. REVIEW OF SYSTEMS: Ambulation impaired, in her walker. No CV, , pulmonary, eye system symptoms on review. MENTAL STATUS EXAM: Oriented to herself and situation. Speech is coherent, abstraction fair, computation impaired, language function intact. Mood and affect still somewhat paranoid, anxious, at times labile, but improved. IMPRESSION: Unchanged from initial note. PLAN: Continue current psychotropics. Continue to encourage compliance. She remains on Risperdal Consta. Haldol is up to 10 mg a day. Valproic acid level is therapeutic. KALIN STARKS MD DR: TRACIE/karli JOB#: [id number] / [id number]
--- NOTE | 2016-11-12 01:20 | PN ---
DATE: 11/11/2016 PSYCHIATRIC PROGRESS NOTE This note covers elements not covered in my initial note. SUBJECTIVE: The patient had a difficult day today. Last evening, she was agitated, noncompliant with bedtime routines and bathroom, refused blood sugar this morning. She refused her medications this morning. Nursing staff put ice in a cup and she wanted soda and the medication was already in the cup with the ice, which is the only way she took her a.m. medications. She has been fixated on wearing a police hat and obsessing about this. REVIEW OF SYSTEMS: Ambulation impaired with a walker. No CV, , pulmonary, eye system symptoms on review. MENTAL STATUS EXAM: Oriented to herself and situation. Speech is coherent, rapid, loud at times. Abstraction fair, computation impaired. Mood and affect labile. LABORATORY DATA: Reviewed. IMPRESSION: Schizoaffective disorder bipolar type, noncompliance with psychotropics; cognitive disorder, unspecified. PLAN: Continue to persistent helping her be more compliant with her oral psychotropics and she also remains on Risperdal Consta 50 mg IM q. 2 weeks. Continue Klonopin 1 mg at bedtime 0.5 mg twice a day, BuSpar 5 mg twice a day, Cogentin 0.5 mg b.i.d., Depakote Sprinkles 750 b.i.d., Remeron 15 mg at bedtime, Haldol liquid 10 mg at bedtime, Zyprexa p.r.n., consider Haldol Decanoate if she fails all of the above. KALIN STARKS MD DR: TRACIE/karli JOB#: [id number] / [id number]
[2016-11-12 06:15] VITALS: BP 111/68
--- NOTE | 2016-11-12 09:15 | NUR ---
THERAPEUTIC RECREATION GROUP NOTE TITLE :Beach Ball Bop ACTIVITY : Movement/ Exercise GOAL : Increase morale, attention, endurance, socialization. Decrease stress/anxiety. DURATION : 35 Minutes RESPONSE : Full Participation. Pt. needed prompting when it came to be her turn. She had good hand eye coordination. She hollered occasionally and needed redirection to be speak appropriately. A male patient joined the group late and mumbled under his breath to her as he moved to sit next to her. Pt. told him to stop talking that way and she raised a fist in a threatening way. She needed redirection. The male patient sat next to her and the two were appropriate the rest of the session.
[2016-11-12] MEDS: busPIRone 5 MG TABLET. PO SCH ×4 (09:45→19:25)
[2016-11-12] MEDS: DIVALPROEX 125 MG CAP.SPRINK PO SCH ×3 (09:45→19:12)
[2016-11-12] MEDS: metFORMIN 500 MG TABLET PO SCH ×3 (09:45→17:02)
[2016-11-12] MEDS: HALOPERIDOL 10 MG/5 ML ORAL.CONC. PO SCH ×2 (09:45→11:05)
[2016-11-12] MEDS: BENZTROPINE MESYLATE 0.5 MG TABLET PO SCH ×3 (09:45→19:12)
[2016-11-12] MEDS: clonazePAM 0.5 MG TABLET PO SCH ×3 (09:46→17:02)
--- NOTE | 2016-11-12 10:00 | NUR ---
Behavior Intervention Response and Plan: BIRP Note: Behavior: Assumed Care of patient, patient located in Day Room at shift change. Patient exhibited the following behavior Demanding, Irritable, suspicious of staff, telling other pts not to eat their food bc there is medication in it, yelling out during group. Brief assessment on rounds of vital signs, medication needs, lab studies, and pain. Treatment plan problems . Intervention: Patient assessed and the following interventions initiated safety checks 15 Minute Checks Cognitive Assessment , Head to toe Assessment , Medications. Response: After interactions and interventions patient responded in the following manner, Demanding, Irritable, yelling out, suspicious of staff. Continue to assess behaviors and condition will continue to monitor throughout the shift as needed. Plan: Continue to monitor Master Treatment Plan for patient's progress toward short term goals of Decreased Agitation, Decreased Anxiety, oil heaterman goals to return to previous living setting vs placement. Continue to assess patient for changes in above assessment. Monitor for medication needs, pain, and safety concerns. Hourly rounding performed to ensure safe environment.
--- NOTE | 2016-11-12 11:15 | NUR ---
THERAPEUTIC RECREATION GROUP NOTE TITLE :Movement to Music: Strength ACTIVITY : Movement/ Exercise GOAL : Increase morale, attention, flexibility. Decrease stress/anxiety. DURATION : 45 Minutes RESPONSE : No participation.
--- NOTE | 2016-11-12 14:15 | NUR ---
THERAPEUTIC RECREATION GROUP NOTE TITLE :ABC's of Leisure ACTIVITY : Leisure Awareness GOAL : Increase knowledge of leisure activities DURATION : 60 Minutes RESPONSE : No participation.
[2016-11-12] MEDS: FUROSEMIDE 40 MG TABLET PO SCH ×2 (14:27→14:31)
[2016-11-12] MEDS: POTASSIUM CHLORIDE 20 MEQ/15 ML ORAL LIQUID. PO SCH (14:27)
[2016-11-12] MEDS: MAGNESIUM OXIDE 400 MG TABLET PO SCH (14:30)
--- NOTE | 2016-11-12 14:40 | NUR ---
ASHLEY faxed updated clinical notes to [facility] and requested transport time for dc on Saturday.
[2016-11-12 16:45] VITALS: BP 106/55
[2016-11-12] MEDS: POTASSIUM CHLORIDE 20 MEQ TABLET.ER. PO SCH (17:06)
[2016-11-12] MEDS: MIRTAZAPINE 15 MG TABLET PO SCH (19:12)
[2016-11-12] MEDS: clonazePAM 1 MG TABLET PO SCH (19:24)
[2016-11-12] MEDS: INSULIN DETEMIR 300 UNITS/3 ML INSULN.PEN. SQ SCH (19:27)
--- NOTE | 2016-11-12 22:37 | PDOC ---
Exam Napoleon Demential Exam: Napoleon Note: Please also refer to the separate dictated note~for this date of service dictated separately.~Patient seen individually. Discussed the patient with Nursing staff reviewed the chart.~Reviewed interim history and current functioning. Reviewed vital signs,~Labs/ Radiology~and current medications noted below. Continue current treatment with the changes noted in the dictated addendum note Assessment: Vital Signs: Vital Signs Date Time Temp Pulse Resp B/P (MAP) Pulse Ox O2 Delivery O2 Flow Rate FiO2 11/12/16 16:45 97.5 66 18 106/55 (72) 86 11/11/16 16:27 Room Air 11/07/16 05:21 2.0 I&O Intake and Output 11/12/16 07:00 Intake Total 1920 ml Balance 1920 ml Intake Oral 1920 ml Labs: Laboratory Tests Test 11/12/16 07:21 11/12/16 11:48 11/12/16 16:56 11/12/16 19:15 Glucose (Fingerstick) 108 mg/dL (70-99) H 78 mg/dL (70-99) 188 mg/dL (70-99) H 192 mg/dL (70-99) H Current Medications: Meds: Current Medications Acetaminophen (Tylenol) 650 mg PRN Q6HRS PRN PO PAIN / TEMP; Start 10/30/16 at 01:15 Multi-Ingredient Ointment (Analgesic [place]) 1 lyndon PRN QID PRN TP MUSCLE PAIN; Start 10/30/16 at 01:15 Al Hydroxide/Mg Hydroxide (Mylanta Plus Xs) 15 ml PRN AFTMEALHC PRN PO DYSPEPSIA; Start 10/30/16 at 01:15 Magnesium Hydroxide (Milk Of Magnesia) 2,400 mg PRN QHS PRN PO CONSTIPATION; Start 10/30/16 at 01:15 Benztropine Mesylate (Cogentin) 0.5 mg BID PO Last administered on 11/12/16 19 :12; Start 10/30/16 at 09:00 Clonazepam (KlonoPIN) 0.5 mg DAILY PO ; Start 10/30/16 at 09:00; Stop 10/30/16 at 09:00; Status DC Clonazepam (KlonoPIN) 1 mg BID PO Last administered on 11/08/16 08:14; Start 10/30/16 at 09:00; Stop 11/08/16 at 18:35; Status DC Divalproex Sodium (Depakote Er) 500 mg BID PO ; Start 10/30/16 at 09:00; Stop 10/30/16 at 09:00; Status DC Quetiapine Fumarate (SEROquel) 150 mg QID PO Last administered on 10/31/16 20: 07; Start 10/30/16 at 09:00; Stop 11/01/16 at 07:59; Status DC Risperidone (RisperDAL CONSTA) 50 mg Q2WKS IM Last administered on 10/30/16 14: 05; Start 10/30/16 at 09:00 Furosemide (Lasix) 60 mg BID92 PO Last administered on 11/12/16 14:27; Start 10/30/16 at 09:00 Insulin Detemir (Levemir) 55 units QHS SQ Last administered on 11/12/16 19:27 ; Start 10/30/16 at 21:00 Albuterol/ Ipratropium (Duoneb) 3 ml PRN DAILY PRN NEB SHORTNESS OF BREATH; Start 10/30/16 at 01:15; Stop 10/30/16 at 02:29; Status DC Potassium Chloride (KCl Oral Soln) 20 meq BIDWMEALS PO Last administered on 08:33; Start 10/30/16 at 08:00; Stop 11/05/16 at 10:08; Status DC Metformin HCl (Glucophage) 1,000 mg BIDWMEALS PO Last administered on 17:02; Start 10/30/16 at 08:00 Clonazepam (KlonoPIN) 0.5 mg DAILY16 PO Last administered on 11/08/16 16:27; Start 10/30/16 at 16:00; Stop 11/08/16 at 18:35; Status DC Divalproex Sodium (Depakote Er) 500 mg QID PO Last administered on 10/31/16 17: 09; Start 10/30/16 at 09:00; Stop 10/31/16 at 17:43; Status DC Albuterol/ Ipratropium (Duoneb) 3 ml PRN QID PRN NEB SHORTNESS OF BREATH; Start 10/31/16 at 01:15 Olanzapine (ZyPREXA ZYDIS) 5 mg PRN Q2HR PRN PO PSYCHOSIS Last administered on 11/08/16 08:14; Start 10/30/16 at 05:15 Mirtazapine (Remeron) 15 mg QHS PO Last administered on 11/12/16 19:12; Start 10/30/16 at 21:00 Buspirone HCl (Buspar) 5 mg BID PO Last administered on 11/09/16 07:55; Start 10/30/16 at 21:00; Stop 11/09/16 at 18:36; Status DC Vitamin D (Vitamin D3) 50,000 unit WEEKLY PO Last administered on 11/08/16 08: 14; Start 11/01/16 at 09:00 Divalproex Sodium (Depakote Sprinkles) 1,000 mg BID PO Last administered on 11/02 07:48; Start 10/31/16 at 21:00; Stop 11/02/16 at 18:49; Status DC Haloperidol Lactate (Haldol Oral) 5 mg DAILY PO Last administered on 11/04/16 08:48; Start 11/01/16 at 09:00; Stop 11/04/16 at 18:01; Status DC Divalproex Sodium (Depakote Sprinkles) 750 mg BID PO Last administered on 19:12; Start 11/02/16 at 21:00 Haloperidol Lactate (Haldol Oral) 7.5 mg DAILY PO Last administered on 08:53; Start 11/05/16 at 09:00; Stop 11/07/16 at 18:29; Status DC Potassium Chloride (KCl Oral Soln) 40 meq BIDWMEALS PO Last administered on 14:27; Start 11/05/16 at 17:00; Stop 11/12/16 at 16:39; Status DC Magnesium Oxide (Magnesium Oxide) 400 mg DAILYBFRLUN PO Last administered on 08:05; Start 11/05/16 at 11:30 Potassium Chloride (Klor-Con) 20 meq 1X ONCE PO Last administered on 13:27; Start 11/05/16 at 10:30; Stop 11/05/16 at 10:31; Status DC Haloperidol Lactate (Haldol Oral) 10 mg DAILY PO Last administered on 11:05; Start 11/08/16 at 09:00 Clonazepam (KlonoPIN) 0.5 mg BIDACBL PO ; Start 11/09/16 at 07:30; Stop at 07:58; Status DC Clonazepam (KlonoPIN) 1 mg HS PO Last administered on 11/12/16 19:24; Start at 21:00 Clonazepam (KlonoPIN) 0.5 mg BID94 PO Last administered on 11/12/16 17:02; Start 11/09/16 at 09:00 Buspirone HCl (Buspar) 5 mg QID PO Last administered on 11/12/16 19:25; Start 11/09/16 at 21:00 Potassium Chloride (Klor-Con) 40 meq BIDWMEALS PO Last administered on 17:06; Start 11/12/16 at 17:00 Active Scripts Active Reported Seroquel (Quetiapine Fumarate) 100 Mg Tablet 150 Mg PO QID Risperdal Consta (Risperidone Microspheres) 50 Mg/2 Ml Disp.syrin 50 Mg IM Q2WKS Potassium Chloride Oral Liquid (Potassium Chloride) 20 Meq/15 Ml Liquid 20 Meq PO BID Metformin Hcl 1,000 Mg Tablet 1,000 Mg PO BIDWMEALS Levemir Flextouch (Insulin Detemir) 100 Unit/1 Ml Insuln.pen 55 Unit SQ QHS Haldol (Haloperidol Lactate) 5 Mg/1 Ml Ampul 5 Mg IM PRN Q6HRS PRN Clonazepam 1 Mg Tablet 1 Mg PO BID Furosemide 40 Mg Tablet 60 Mg PO BID92 Hold for SBP less than 100. After held dose, reassess in 2 hours. If SBP is above threshold, administer dose as ordered. If SBP is below threshold, contact provider for additional instructions. Duoneb 0.5-3(2.5) Mg/3 Ml (Albuterol/Ipratropium) 3 Ml Ampul.neb 3 Ml NEB PRN QID PRN Depakote Er (Divalproex Sodium) 500 Mg Tab.er.24h 500 Mg PO QID Give with food. DO NOT CRUSH OR CHEW Cyanocobalamin Injection (Cyanocobalamin (Vitamin B-12)) 1,000 Mcg/1 Ml Vial 2, 000 Mcg IM [id number] Clonazepam 0.5 Mg Tablet 0.5 Mg PO DAILY16 Benztropine Mesylate 0.5 Mg Tablet 0.5 Mg PO BID Diagnosis: Problems: (1) Schizoaffective disorder, chronic condition with acute exacerbation (2) Impulse control disorder (3) Anxiety disorder (4) Schizoaffective disorder (5) Depression (6) Acute exacerbation of psychosis (7) Schizophrenia KALIN STARKS MD Nov 12, 2016 22:37
--- NOTE | 2016-11-13 00:14 | PN ---
DATE: 11/12/2016 PSYCHIATRIC PROGRESS NOTE This note covers elements not covered in my initial note. SUBJECTIVE: The patient was seen individually the evening of 11/12/2016. Per nursing report, the patient refused her bedtime insulin. She is suspicious about drinks and snack, feeling nursing staff are mixing medications in it, which they are to help with her compliance. I processed this with her and she was accepting of this. She has; however, been less labile, still paranoid. No suicidal or homicidal ideation. REVIEW OF SYSTEMS: Ambulation impaired, in her walker. No CV, , pulmonary, eye system symptoms on review. MENTAL STATUS EXAM: Oriented to herself and situation. Speech coherent, less pressured. Abstraction fair, computation impaired, language function intact. Mood and affect showing some improvement. LABORATORY DATA: Reviewed. IMPRESSION: Schizoaffective disorder, bipolar type, mixed with psychotic features, in partial remission. Rest unchanged from initial note. PLAN: Continue psychotropics mentioned in my initial note, Klonopin, BuSpar, Cogentin, Depakote, level is therapeutic at 80, together with Remeron, Risperdal, Consta, oral Haldol 10 mg a day, and Zyprexa p.r.n. KALIN STARKS MD DR: TRACIE/karli JOB#: [id number] / [id number]
--- NOTE | 2016-11-13 00:42 | NUR ---
Behavior Intervention Response and Plan: BIRP Note: Behavior: Assumed Care of patient, patient located in Day Room at shift change. Patient exhibited the following behavior Demanding, Drowsy, Compliant. Brief assessment on rounds of vital signs, medication needs, lab studies, and pain. Treatment plan problems 1 & 2. Intervention: Patient assessed and the following interventions initiated safety checks 15 Minute Checks Cognitive Assessment , Head to toe Assessment , Medications. Response: After interactions and interventions patient responded in the following manner, Demanding , Drowsy ,Compliant. Continue to assess behaviors and condition will continue to monitor throughout the shift as needed. Plan: Continue to monitor Master Treatment Plan for patient's progress toward short term goals of Decreased Agitation, No harm To self/ others, manager long term care goals to return to previous living setting vs placement. Continue to assess patient for changes in above assessment. Monitor for medication needs, pain, and safety concerns. Hourly rounding performed to ensure safe environment.
[2016-11-13 05:28] VITALS: BP 126/80
--- NOTE | 2016-11-13 05:40 | NUR ---
Nursing Note: Pt's oxygen saturation was low this morning; however, pt refused PRN oxygen that is available for her. Numerous attempts were made to get the pt to use O2 and pt would not. The head of her bed was raised even higher which did bring oxygen saturation to higher level. Pt very difficult and will not do anything that she is not willing to do .
--- NOTE | 2016-11-13 06:48 | NUR ---
Nursing Note : Pt's O2 sats 82% on Room Air at this time.
[2016-11-13] MEDS: metFORMIN 500 MG TABLET PO SCH ×2 (07:58→14:26)
[2016-11-13] MEDS: DIVALPROEX 125 MG CAP.SPRINK PO SCH ×2 (07:59→19:21)
[2016-11-13] MEDS: busPIRone 5 MG TABLET. PO SCH ×4 (08:00→19:21)
[2016-11-13] MEDS: POTASSIUM CHLORIDE 20 MEQ TABLET.ER. PO SCH ×2 (08:00→14:26)
[2016-11-13] MEDS: BENZTROPINE MESYLATE 0.5 MG TABLET PO SCH ×2 (08:00→19:21)
[2016-11-13] MEDS: clonazePAM 0.5 MG TABLET PO SCH ×2 (08:01→14:30)
[2016-11-13] MEDS: FUROSEMIDE 40 MG TABLET PO SCH ×2 (08:06→14:32)
[2016-11-13] MEDS ORDERED: HALOPERIDOL 10 MG/5 ML ORAL.CONC. PO ONE (08:15)
--- NOTE | 2016-11-13 09:20 | NUR ---
THERAPEUTIC RECREATION GROUP NOTE TITLE :Table Ball ACTIVITY : Movement/ Exercise GOAL : Increase morale, attention, endurance, socialization. Decrease stress/anxiety. DURATION : 70 Minutes RESPONSE : Full participation. Pt. joined the activity about half way through after being invited. She hollered one time but took redirection well. She asked for the ball when she hadn't had it for awhile and had good hand eye coordination. She smiled often and controlled her emotions when a male patient threw the ball at her.
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
--- NOTE | 2016-11-13 10:36 | NUR ---
Pt's am medications hidden in coffee and cereal.
[2016-11-13] MEDS: MAGNESIUM OXIDE 400 MG TABLET PO SCH (11:30)
--- NOTE | 2016-11-13 11:30 | NUR ---
THERAPEUTIC RECREATION GROUP NOTE TITLE :Movement to Music: Flexibility ACTIVITY : Movement/ Exercise GOAL : Increase morale, attention, flexibility. Decrease stress/anxiety. DURATION : 30 Minutes RESPONSE : No participation.
--- NOTE | 2016-11-13 12:44 | NUR ---
Behavior Intervention Response and Plan: BIRP Note: Behavior: Assumed Care of patient, patient located in Dining Room at shift change. Patient exhibited the following behavior Disorganized, Demanding, Non Compliant with Meds. Brief assessment on rounds of vital signs, medication needs, lab studies, and pain. Treatment plan problems 1-2. Intervention: Patient assessed and the following interventions initiated safety checks 15 Minute Checks Cognitive Assessment , Head to toe Assessment , Medications. Response: After interactions and interventions patient responded in the following manner, Disorganized , Non Compliant with Meds ,Resistive. Continue to assess behaviors and condition will continue to monitor throughout the shift as needed. Plan: Continue to monitor Master Treatment Plan for patient's progress toward short term goals of Decreased Agitation, Medication Compliance, [facility] goals to return to previous living setting vs placement. Continue to assess patient for changes in above assessment. Monitor for medication needs, pain, and safety concerns. Hourly rounding performed to ensure safe environment.
--- NOTE | 2016-11-13 14:00 | NUR ---
THERAPEUTIC RECREATION GROUP NOTE TITLE :Sing along with Gely ACTIVITY : Music GOAL : Increase socialization, elevate mood, stimulate memory DURATION : 45 minutes RESPONSE : Minimal participation. Pt. was resting off an on throughout the session. She stayed with the group the entire time but when she was alert, she was hollering across the room and needed to be redirected. She was slow to comply.
[2016-11-13] MEDS: risperiDONE MICROSPHERES 50 MG/2 ML DISP.SYRIN. IM SCH (14:16)
--- NOTE | 2016-11-13 15:59 | NUR ---
ASHLEY spoke w/Dr. Feliz who will make medication changes to better meet the needs of the Pt's facility. ASHLEY left a message for Crystal at [facility] regarding the med changes and will follow up w/a new dc date likely for later this week.
[2016-11-13 16:00] VITALS: BP 129/85
[2016-11-13] MEDS: MIRTAZAPINE 15 MG TABLET PO SCH (19:21)
[2016-11-13] MEDS: INSULIN DETEMIR 300 UNITS/3 ML INSULN.PEN. SQ SCH (19:23)
[2016-11-13] MEDS: clonazePAM 1 MG TABLET PO SCH (19:24)
--- NOTE | 2016-11-13 19:30 | NUR ---
Nursing Note: Pt demanding and argumentative especially about taking Levemir; other HS medication hidden in Gatorade and ice cream. Pt is yelling out one minute in the day room and dosing the next. Pt refused numerous attempts by staff to go to bed even though she was asleep in the day room and it was past bed time. Pt yelled during HS care as she was being put to bed disrupting pts in rooms nearby.
--- NOTE | 2016-11-13 19:50 | PDOC ---
Exam Napoleon Demential Exam: [place] Note: Please also refer to the separate dictated note~for this date of service dictated separately.~Patient seen individually. Discussed the patient with Nursing staff reviewed the chart.~Reviewed interim history and current functioning. Reviewed vital signs,~Labs/ Radiology~and current medications noted below. Continue current treatment with the changes noted in the dictated addendum note Assessment: Vital Signs: Vital Signs Date Time Temp Pulse Resp B/P (MAP) Pulse Ox O2 Delivery O2 Flow Rate FiO2 11/13/16 16:00 97.2 89 20 129/85 (100) 92 11/11/16 16:27 Room Air I&O Intake and Output 11/13/16 07:00 Intake Total 1075 ml Balance 1075 ml Intake Oral 1075 ml Labs: Laboratory Tests Test 11/13/16 07:29 11/13/16 11:29 11/13/16 16:40 11/13/16 19:02 Glucose (Fingerstick) 66 mg/dL (70-99) L 159 mg/dL (70-99) H 171 mg/dL (70-99) H 161 mg/dL (70-99) H Current Medications: Meds: Current Medications Acetaminophen (Tylenol) 650 mg PRN Q6HRS PRN PO PAIN / TEMP; Start 10/30/16 at 01:15 Multi-Ingredient Ointment (Analgesic [place]) 1 lyndon PRN QID PRN TP MUSCLE PAIN; Start 10/30/16 at 01:15 Al Hydroxide/Mg Hydroxide (Mylanta Plus Xs) 15 ml PRN AFTMEALHC PRN PO DYSPEPSIA; Start 10/30/16 at 01:15 Magnesium Hydroxide (Milk Of Magnesia) 2,400 mg PRN QHS PRN PO CONSTIPATION; Start 10/30/16 at 01:15 Benztropine Mesylate (Cogentin) 0.5 mg BID PO Last administered on 11/13/16 19 :21; Start 10/30/16 at 09:00 Clonazepam (KlonoPIN) 0.5 mg DAILY PO ; Start 10/30/16 at 09:00; Stop 10/30/16 at 09:00; Status DC Clonazepam (KlonoPIN) 1 mg BID PO Last administered on 11/08/16 08:14; Start 10/30/16 at 09:00; Stop 11/08/16 at 18:35; Status DC Divalproex Sodium (Depakote Er) 500 mg BID PO ; Start 10/30/16 at 09:00; Stop 10/30/16 at 09:00; Status DC Quetiapine Fumarate (SEROquel) 150 mg QID PO Last administered on 10/31/16 20: 07; Start 10/30/16 at 09:00; Stop 11/01/16 at 07:59; Status DC Risperidone (RisperDAL CONSTA) 50 mg Q2WKS IM Last administered on 11/13/16 14 :16; Start 10/30/16 at 09:00; Stop 11/14/16 at 14:40 Furosemide (Lasix) 60 mg BID92 PO Last administered on 11/13/16 14:32; Start 10/30/16 at 09:00 Insulin Detemir (Levemir) 55 units QHS SQ Last administered on 11/13/16 19:23 ; Start 10/30/16 at 21:00 Albuterol/ Ipratropium (Duoneb) 3 ml PRN DAILY PRN NEB SHORTNESS OF BREATH; Start 10/30/16 at 01:15; Stop 10/30/16 at 02:29; Status DC Potassium Chloride (KCl Oral Soln) 20 meq BIDWMEALS PO Last administered on 08:33; Start 10/30/16 at 08:00; Stop 11/05/16 at 10:08; Status DC Metformin HCl (Glucophage) 1,000 mg BIDWMEALS PO Last administered on 17:02; Start 10/30/16 at 08:00 Clonazepam (KlonoPIN) 0.5 mg DAILY16 PO Last administered on 11/08/16 16:27; Start 10/30/16 at 16:00; Stop 11/08/16 at 18:35; Status DC Divalproex Sodium (Depakote Er) 500 mg QID PO Last administered on 10/31/16 17: 09; Start 10/30/16 at 09:00; Stop 10/31/16 at 17:43; Status DC Albuterol/ Ipratropium (Duoneb) 3 ml PRN QID PRN NEB SHORTNESS OF BREATH; Start 10/31/16 at 01:15 Olanzapine (ZyPREXA ZYDIS) 5 mg PRN Q2HR PRN PO PSYCHOSIS Last administered on 11/08/16 08:14; Start 10/30/16 at 05:15 Mirtazapine (Remeron) 15 mg QHS PO Last administered on 11/13/16 19:21; Start 10/30/16 at 21:00 Buspirone HCl (Buspar) 5 mg BID PO Last administered on 11/09/16 07:55; Start 10/30/16 at 21:00; Stop 11/09/16 at 18:36; Status DC Vitamin D (Vitamin D3) 50,000 unit WEEKLY PO Last administered on 11/08/16 08: 14; Start 11/01/16 at 09:00 Divalproex Sodium (Depakote Sprinkles) 1,000 mg BID PO Last administered on 11/02 07:48; Start 10/31/16 at 21:00; Stop 11/02/16 at 18:49; Status DC Haloperidol Lactate (Haldol Oral) 5 mg DAILY PO Last administered on 11/04/16 08:48; Start 11/01/16 at 09:00; Stop 11/04/16 at 18:01; Status DC Divalproex Sodium (Depakote Sprinkles) 750 mg BID PO Last administered on 19:21; Start 11/02/16 at 21:00 Haloperidol Lactate (Haldol Oral) 7.5 mg DAILY PO Last administered on 08:53; Start 11/05/16 at 09:00; Stop 11/07/16 at 18:29; Status DC Potassium Chloride (KCl Oral Soln) 40 meq BIDWMEALS PO Last administered on 14:27; Start 11/05/16 at 17:00; Stop 11/12/16 at 16:39; Status DC Magnesium Oxide (Magnesium Oxide) 400 mg DAILYBFRLUN PO Last administered on 08:05; Start 11/05/16 at 11:30 Potassium Chloride (Klor-Con) 20 meq 1X ONCE PO Last administered on 13:27; Start 11/05/16 at 10:30; Stop 11/05/16 at 10:31; Status DC Haloperidol Lactate (Haldol Oral) 10 mg DAILY PO Last administered on 11:05; Start 11/08/16 at 09:00; Stop 11/13/16 at 14:43; Status DC Clonazepam (KlonoPIN) 0.5 mg BIDACBL PO ; Start 11/09/16 at 07:30; Stop at 07:58; Status DC Clonazepam (KlonoPIN) 1 mg HS PO Last administered on 11/13/16 19:24; Start at 21:00 Clonazepam (KlonoPIN) 0.5 mg BID94 PO Last administered on 11/13/16 14:30; Start 11/09/16 at 09:00 Buspirone HCl (Buspar) 5 mg QID PO Last administered on 11/13/16 19:21; Start 11/09/16 at 21:00 Potassium Chloride (Klor-Con) 40 meq BIDWMEALS PO Last administered on 17:06; Start 11/12/16 at 17:00 Haloperidol Lactate (Haldol Oral) 10 mg 1X ONCE PO Last administered on 08:05; Start 11/13/16 at 08:15; Stop 11/13/16 at 08:16; Status DC Haloperidol Lactate (Haldol Oral) 5 mg DAILY PO ; Start 11/16/16 at 09:00; Stop 11/16/16 at 09:00; Status DC Haloperidol Decanoate (Haldol Decanoate Im Extended Release) 100 mg Q4WK IM ; Start 12/11/16 at 09:00; Stop 12/11/16 at 09:00; Status DC Haloperidol Decanoate (Haldol Decanoate Im Extended Release) 100 mg Q4WK IM ; Start 11/20/16 at 09:00; Stop 11/20/16 at 09:00; Status DC Haloperidol Lactate (Haldol Oral) 10 mg DAILY PO ; Start 11/14/16 at 09:00; Stop 11/14/16 at 09:00; Status DC Haloperidol Decanoate (Haldol Decanoate Im Extended Release) 100 mg Q4WK IM ; Start 11/14/16 at 09:00 Active Scripts Active Reported Seroquel (Quetiapine Fumarate) 100 Mg Tablet 150 Mg PO QID Risperdal Consta (Risperidone Microspheres) 50 Mg/2 Ml Disp.syrin 50 Mg IM Q2WKS Potassium Chloride Oral Liquid (Potassium Chloride) 20 Meq/15 Ml Liquid 20 Meq PO BID Metformin Hcl 1,000 Mg Tablet 1,000 Mg PO BIDWMEALS Levemir Flextouch (Insulin Detemir) 100 Unit/1 Ml Insuln.pen 55 Unit SQ QHS Haldol (Haloperidol Lactate) 5 Mg/1 Ml Ampul 5 Mg IM PRN Q6HRS PRN Clonazepam 1 Mg Tablet 1 Mg PO BID Furosemide 40 Mg Tablet 60 Mg PO BID92 Hold for SBP less than 100. After held dose, reassess in 2 hours. If SBP is above threshold, administer dose as ordered. If SBP is below threshold, contact provider for additional instructions. Duoneb 0.5-3(2.5) Mg/3 Ml (Albuterol/Ipratropium) 3 Ml Ampul.neb 3 Ml NEB PRN QID PRN Depakote Er (Divalproex Sodium) 500 Mg Tab.er.24h 500 Mg PO QID Give with food. DO NOT CRUSH OR CHEW Cyanocobalamin Injection (Cyanocobalamin (Vitamin B-12)) 1,000 Mcg/1 Ml Vial 2, 000 Mcg IM [id number] Clonazepam 0.5 Mg Tablet 0.5 Mg PO DAILY16 Benztropine Mesylate 0.5 Mg Tablet 0.5 Mg PO BID Diagnosis: Problems: (1) Schizophrenia (2) Acute exacerbation of psychosis (3) Depression (4) Schizoaffective disorder (5) Anxiety disorder (6) Impulse control disorder (7) Schizoaffective disorder, chronic condition with acute exacerbation KLAIN STARKS MD Nov 13, 2016 19:50
--- NOTE | 2016-11-13 23:30 | NUR ---
Behavior Intervention Response and Plan: BIRP Note: Behavior: Assumed Care of patient, patient located in Day Room at shift change. Patient exhibited the following behavior Demanding, Irritable, Drowsy. Brief assessment on rounds of vital signs, medication needs, lab studies, and pain. Treatment plan problems danger to other and fall risk. Intervention: Patient assessed and the following interventions initiated safety checks 15 Minute Checks Cognitive Assessment , Head to toe Assessment , Medications. Response: After interactions and interventions patient responded in the following manner, Demanding , Drowsy ,Sleeping. Continue to assess behaviors and condition will continue to monitor throughout the shift as needed. Plan: Continue to monitor Master Treatment Plan for patient's progress toward short term goals of Medication Compliance, Decreased Agitation, detention goals to return to previous living setting vs placement. Continue to assess patient for changes in above assessment. Monitor for medication needs, pain, and safety concerns. Hourly rounding performed to ensure safe environment.
--- NOTE | 2016-11-14 03:49 | PN ---
DATE: 11/13/2016 PSYCHIATRIC PROGRESS NOTE This note covers elements not covered in my initial note. SUBJECTIVE: The patient had a difficult day. She has been demanding, argumentative, yelling, cursing, and noncompliant with medications. Medications have had to be hidden in ice cream. This morning, her O2 sats were 70. She refused p.r.n. oxygen. Discussed with social service staff. group home would not like her returning back till she is psychiatrically stable. We had done almost all we can from her psychiatric medication change standpoint, but after further discussions we will go ahead and start her on Haldol Decanoate 100 mg once a month, discontinue the oral Haldol. She just got the Risperdal Consta yesterday and we will stop that. REVIEW OF SYSTEMS: Ambulation impaired. No CV, , pulmonary, eye system symptoms on review. MENTAL STATUS EXAM: Reasonably oriented. Speech is coherent, less pressured. Abstraction fair, computation impaired, language function intact. Mood and affect still somewhat anxious, labile. LABORATORY DATA: Reviewed. IMPRESSION: Schizoaffective disorder, bipolar type. Rest unchanged. PLAN: Continue psychotropics mentioned in my initial note and changes mentioned above. KALIN STARKS MD DR: TRACIE/karli JOB#: [id number] / [id number]
[2016-11-14 05:46] VITALS: BP 129/81
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
--- NOTE | 2016-11-14 08:00 | NUR ---
Patient refused to take her medications. Will hide meds in food and offer them that way.
--- NOTE | 2016-11-14 08:05 | NUR ---
Behavior Intervention Response and Plan: BIRP Note: Behavior: Assumed Care of patient, patient located in Dining Room at shift change. Patient exhibited the following behavior Restless, Demanding, Non Compliant. Brief assessment on rounds of vital signs, medication needs, lab studies, and pain. Treatment plan problems 1 & 2. Intervention: Patient assessed and the following interventions initiated safety checks 15 Minute Checks Cognitive Assessment , Head to toe Assessment , Medications. Response: After interactions and interventions patient responded in the following manner, Calm , Appropriate ,Compliant. Continue to assess behaviors and condition will continue to monitor throughout the shift as needed. Plan: Continue to monitor Master Treatment Plan for patient's progress toward short term goals of Decreased Agitation, Decreased Aggression, skilled nursing goals to return to previous living setting vs placement. Continue to assess patient for changes in above assessment. Monitor for medication needs, pain, and safety concerns. Hourly rounding performed to ensure safe environment.
[2016-11-14] MEDS: busPIRone 5 MG TABLET. PO SCH ×5 (08:12→19:46)
[2016-11-14] MEDS: metFORMIN 500 MG TABLET PO SCH ×3 (08:12→17:00)
[2016-11-14] MEDS: BENZTROPINE MESYLATE 0.5 MG TABLET PO SCH ×2 (08:12→19:46)
[2016-11-14] MEDS: DIVALPROEX 125 MG CAP.SPRINK PO SCH ×2 (08:12→19:45)
[2016-11-14] MEDS: POTASSIUM CHLORIDE 20 MEQ TABLET.ER. PO SCH ×2 (08:12→16:45)
[2016-11-14] MEDS: FUROSEMIDE 40 MG TABLET PO SCH ×2 (08:15→13:58)
[2016-11-14] MEDS: clonazePAM 0.5 MG TABLET PO SCH ×3 (08:15→16:45)
[2016-11-14] MEDS ORDERED: HALOPERIDOL 10 MG/5 ML ORAL.CONC. PO SCH (09:00)
[2016-11-14] MEDS ORDERED: HALOPERIDOL DECANOATE IM ER 50 MG/ML VIAL. IM SCH (09:00)
--- NOTE | 2016-11-14 10:30 | NUR ---
THERAPEUTIC RECREATION GROUP NOTE TITLE :Music [employer] ACTIVITY : Music GOAL : Increase socialization, elevate mood, stimulate memory DURATION : 60 minutes RESPONSE : No participation.
[2016-11-14] MEDS: MAGNESIUM OXIDE 400 MG TABLET PO SCH (11:55)
--- NOTE | 2016-11-14 14:45 | NUR ---
THERAPEUTIC RECREATION GROUP NOTE TITLE :[employer] ACTIVITY : Arts [employer]s GOAL : Reduce stress, anxiety. Increase creativity and fine motor functioning DURATION : 60 minutes RESPONSE : No participation.
[2016-11-14 16:01] VITALS: BP 120/66
--- NOTE | 2016-11-14 17:30 | NUR ---
patient is refusing her medications. Attempted to hide meds in an ice cream, patient refused the ice cream.
[2016-11-14] MEDS: MIRTAZAPINE 15 MG TABLET PO SCH (19:45)
[2016-11-14] MEDS: clonazePAM 1 MG TABLET PO SCH (19:48)
[2016-11-14] MEDS: INSULIN DETEMIR 300 UNITS/3 ML INSULN.PEN. SQ SCH (19:49)
--- NOTE | 2016-11-14 20:11 | PDOC ---
Exam Napoleon Demential Exam: Napoleon Note: Please also refer to the separate dictated note~for this date of service dictated separately.~Patient seen individually. Discussed the patient with Nursing staff reviewed the chart.~Reviewed interim history and current functioning. Reviewed vital signs,~Labs/ Radiology~and current medications noted below. Continue current treatment with the changes noted in the dictated addendum note Assessment: Vital Signs: Vital Signs Date Time Temp Pulse Resp B/P (MAP) Pulse Ox O2 Delivery O2 Flow Rate FiO2 11/14/16 16:01 98.0 77 18 120/66 (84) 91 Room Air I&O Intake and Output 11/14/16 07:00 Intake Total 1320 ml Balance 1320 ml Intake Oral 1320 ml # Voids 1 Labs: Laboratory Tests Test 11/14/16 07:11 11/14/16 07:58 Glucose (Fingerstick) 60 mg/dL (70-99) L 89 mg/dL (70-99) Current Medications: Meds: Current Medications Acetaminophen (Tylenol) 650 mg PRN Q6HRS PRN PO PAIN / TEMP; Start 10/30/16 at 01:15 Multi-Ingredient Ointment (Analgesic [place]) 1 lyndon PRN QID PRN TP MUSCLE PAIN; Start 10/30/16 at 01:15 Al Hydroxide/Mg Hydroxide (Mylanta Plus Xs) 15 ml PRN AFTMEALHC PRN PO DYSPEPSIA; Start 10/30/16 at 01:15 Magnesium Hydroxide (Milk Of Magnesia) 2,400 mg PRN QHS PRN PO CONSTIPATION; Start 10/30/16 at 01:15 Benztropine Mesylate (Cogentin) 0.5 mg BID PO Last administered on 11/14/16t 19 :46; Start 10/30/16 at 09:00 Clonazepam (KlonoPIN) 0.5 mg DAILY PO ; Start 10/30/16 at 09:00; Stop 10/30/16 at 09:00; Status DC Clonazepam (KlonoPIN) 1 mg BID PO Last administered on 11/08/16 08:14; Start 10/30/16 at 09:00; Stop 11/08/16 at 18:35; Status DC Divalproex Sodium (Depakote Er) 500 mg BID PO ; Start 10/30/16 at 09:00; Stop 10/30/16 at 09:00; Status DC Quetiapine Fumarate (SEROquel) 150 mg QID PO Last administered on 10/31/16 20: 07; Start 10/30/16 at 09:00; Stop 11/01/16 at 07:59; Status DC Risperidone (RisperDAL CONSTA) 50 mg Q2WKS IM Last administered on 11/13/16 14 :16; Start 10/30/16 at 09:00; Stop 11/14/16 at 14:40; Status DC Furosemide (Lasix) 60 mg BID92 PO Last administered on 11/14/16 13:58; Start 10/30/16 at 09:00 Insulin Detemir (Levemir) 55 units QHS SQ Last administered on 11/14/16 19:49 ; Start 10/30/16 at 21:00 Albuterol/ Ipratropium (Duoneb) 3 ml PRN DAILY PRN NEB SHORTNESS OF BREATH; Start 10/30/16 at 01:15; Stop 10/30/16 at 02:29; Status DC Potassium Chloride (KCl Oral Soln) 20 meq BIDWMEALS PO Last administered on 08:33; Start 10/30/16 at 08:00; Stop 11/05/16 at 10:08; Status DC Metformin HCl (Glucophage) 1,000 mg BIDWMEALS PO Last administered on 08:12; Start 10/30/16 at 08:00 Clonazepam (KlonoPIN) 0.5 mg DAILY16 PO Last administered on 11/08/16 16:27; Start 10/30/16 at 16:00; Stop 11/08/16 at 18:35; Status DC Divalproex Sodium (Depakote Er) 500 mg QID PO Last administered on 10/31/16 17: 09; Start 10/30/16 at 09:00; Stop 10/31/16 at 17:43; Status DC Albuterol/ Ipratropium (Duoneb) 3 ml PRN QID PRN NEB SHORTNESS OF BREATH; Start 10/31/16 at 01:15 Olanzapine (ZyPREXA ZYDIS) 5 mg PRN Q2HR PRN PO PSYCHOSIS Last administered on 11/08/16 08:14; Start 10/30/16 at 05:15 Mirtazapine (Remeron) 15 mg QHS PO Last administered on 11/14/16 19:45; Start 10/30/16 at 21:00 Buspirone HCl (Buspar) 5 mg BID PO Last administered on 11/09/16 07:55; Start 10/30/16 at 21:00; Stop 11/09/16 at 18:36; Status DC Vitamin D (Vitamin D3) 50,000 unit WEEKLY PO Last administered on 11/08/16 08: 14; Start 11/01/16 at 09:00 Divalproex Sodium (Depakote Sprinkles) 1,000 mg BID PO Last administered on 11/02 07:48; Start 10/31/16 at 21:00; Stop 11/02/16 at 18:49; Status DC Haloperidol Lactate (Haldol Oral) 5 mg DAILY PO Last administered on 11/04/16 08:48; Start 11/01/16 at 09:00; Stop 11/04/16 at 18:01; Status DC Divalproex Sodium (Depakote Sprinkles) 750 mg BID PO Last administered on 19:45; Start 11/02/16 at 21:00 Haloperidol Lactate (Haldol Oral) 7.5 mg DAILY PO Last administered on 08:53; Start 11/05/16 at 09:00; Stop 11/07/16 at 18:29; Status DC Potassium Chloride (KCl Oral Soln) 40 meq BIDWMEALS PO Last administered on 14:27; Start 11/05/16 at 17:00; Stop 11/12/16 at 16:39; Status DC Magnesium Oxide (Magnesium Oxide) 400 mg DAILYBFRLUN PO Last administered on 11:55; Start 11/05/16 at 11:30 Potassium Chloride (Klor-Con) 20 meq 1X ONCE PO Last administered on 13:27; Start 11/05/16 at 10:30; Stop 11/05/16 at 10:31; Status DC Haloperidol Lactate (Haldol Oral) 10 mg DAILY PO Last administered on 11:05; Start 11/08/16 at 09:00; Stop 11/13/16 at 14:43; Status DC Clonazepam (KlonoPIN) 0.5 mg BIDACBL PO ; Start 11/09/16 at 07:30; Stop at 07:58; Status DC Clonazepam (KlonoPIN) 1 mg HS PO Last administered on 11/14/16 19:48; Start at 21:00 Clonazepam (KlonoPIN) 0.5 mg BID94 PO Last administered on 11/14/16 08:15; Start 11/09/16 at 09:00 Buspirone HCl (Buspar) 5 mg QID PO Last administered on 11/14/16 19:46; Start 11/09/16 at 21:00 Potassium Chloride (Klor-Con) 40 meq BIDWMEALS PO Last administered on 16:45; Start 11/12/16 at 17:00 Haloperidol Lactate (Haldol Oral) 10 mg 1X ONCE PO Last administered on 08:05; Start 11/13/16 at 08:15; Stop 11/13/16 at 08:16; Status DC Haloperidol Lactate (Haldol Oral) 5 mg DAILY PO ; Start 11/16/16 at 09:00; Stop 11/16/16 at 09:00; Status DC Haloperidol Decanoate (Haldol Decanoate Im Extended Release) 100 mg Q4WK IM ; Start 12/11/16 at 09:00; Stop 12/11/16 at 09:00; Status DC Haloperidol Decanoate (Haldol Decanoate Im Extended Release) 100 mg Q4WK IM ; Start 11/20/16 at 09:00; Stop 11/20/16 at 09:00; Status DC Haloperidol Lactate (Haldol Oral) 10 mg DAILY PO ; Start 11/14/16 at 09:00; Stop 11/14/16 at 09:00; Status DC Haloperidol Decanoate (Haldol Decanoate Im Extended Release) 100 mg Q4WK IM Last administered on 11/14/16 09:51; Start 11/14/16 at 09:00 Active Scripts Active Reported Seroquel (Quetiapine Fumarate) 100 Mg Tablet 150 Mg PO QID Risperdal Consta (Risperidone Microspheres) 50 Mg/2 Ml Disp.syrin 50 Mg IM Q2WKS Potassium Chloride Oral Liquid (Potassium Chloride) 20 Meq/15 Ml Liquid 20 Meq PO BID Metformin Hcl 1,000 Mg Tablet 1,000 Mg PO BIDWMEALS Levemir Flextouch (Insulin Detemir) 100 Unit/1 Ml Insuln.pen 55 Unit SQ QHS Haldol (Haloperidol Lactate) 5 Mg/1 Ml Ampul 5 Mg IM PRN Q6HRS PRN Clonazepam 1 Mg Tablet 1 Mg PO BID Furosemide 40 Mg Tablet 60 Mg PO [id number] Hold for SBP less than 100. After held dose, reassess in 2 hours. If SBP is above threshold, administer dose as ordered. If SBP is below threshold, contact provider for additional instructions. Duoneb 0.5-3(2.5) Mg/3 Ml (Albuterol/Ipratropium) 3 Ml Ampul.neb 3 Ml NEB PRN QID PRN Depakote Er (Divalproex Sodium) 500 Mg Tab.er.24h 500 Mg PO QID Give with food. DO NOT CRUSH OR CHEW Cyanocobalamin Injection (Cyanocobalamin (Vitamin B-12)) 1,000 Mcg/1 Ml Vial 2, 000 Mcg IM [id number] Clonazepam 0.5 Mg Tablet 0.5 Mg PO DAILY16 Benztropine Mesylate 0.5 Mg Tablet 0.5 Mg PO BID Diagnosis: Problems: (1) Schizophrenia (2) Depression (3) Acute exacerbation of psychosis (4) Schizoaffective disorder (5) Anxiety disorder (6) Impulse control disorder (7) Schizoaffective disorder, chronic condition with acute exacerbation KALIN STARKS MD Nov 14, 2016 20:11
--- NOTE | 2016-11-15 00:02 | NUR ---
Nursing Note: Pt agitated, yelling, sitting on the side of her bed, demanding food, refusing to go to bed. Staff offered multiple options, pt finally accepted peanut butter. PRN hidden in peanut butter. Will continue to monitor.
--- NOTE | 2016-11-15 01:28 | PN ---
DATE: 11/14/2016 PSYCHIATRIC PROGRESS NOTE This note covers elements not covered in my initial note. SUBJECTIVE: The patient was seen individually the evening of 11/14/2016. Per nursing report, she has been demanding, labile in her mood, abrasive, refusing medications, refused 4 p.m. Klonopin, 5 p.m. BuSpar. REVIEW OF SYSTEMS: Ambulation with a walker. No CV, , pulmonary, eye, ENT system symptoms on review. MENTAL STATUS EXAM: Oriented to herself and situation. Speech is coherent, abstraction fair, computation impaired, language function intact, attention span short. Mood and affect remains labile. LABORATORY DATA: Reviewed. IMPRESSION: Schizoaffective disorder, bipolar type, mixed with psychotic features. Rest unchanged. PLAN: The patient has been started on Haldol Decanoate 100 mg IM every 4 weeks, Risperdal Consta has been stopped. Continue the Haldol Decanoate together with the rest of the psychotropics. Adjust further as clinically indicated. KALIN STARKS MD DR: TRACIE/karli JOB#: [id number] / [id number]
--- NOTE | 2016-11-15 01:32 | NUR ---
Behavior Intervention Response and Plan: BIRP Note: Behavior: Assumed Care of patient, patient located in Day Room at shift change. Patient exhibited the following behavior Demanding, Resistive, Yelling in Day room, Suspicious. Brief assessment on rounds of vital signs, medication needs, lab studies, and pain. Treatment plan problems Danger to Others and Fall Risk. Intervention: Patient assessed and the following interventions initiated safety checks 15 Minute Checks Cognitive Assessment , Head to toe Assessment , Medications. Response: After interactions and interventions patient responded in the following manner, Non Compliant , Disorganized ,Agitated. Continue to assess behaviors and condition will continue to monitor throughout the shift as needed. 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 Continue to assess patient for changes in above assessment. Monitor for medication needs, pain, and safety concerns. Hourly rounding performed to ensure safe environment.
[2016-11-15 05:53] VITALS: BP 118/56
[2016-11-15] MEDS: POTASSIUM CHLORIDE 20 MEQ TABLET.ER. PO SCH ×3 (08:00→16:52)
[2016-11-15] MEDS: metFORMIN 500 MG TABLET PO SCH ×3 (08:00→16:52)
[2016-11-15] MEDS: CHOLECALCIFEROL (VITAMIN D3) 50,000 UNIT CAPSULE PO SCH ×2 (09:00→09:53)
[2016-11-15] MEDS: BENZTROPINE MESYLATE 0.5 MG TABLET PO SCH ×2 (09:48→20:06)
[2016-11-15] MEDS: busPIRone 5 MG TABLET. PO SCH ×4 (09:48→20:06)
[2016-11-15] MEDS: FUROSEMIDE 40 MG TABLET PO SCH ×2 (09:49→14:10)
[2016-11-15] MEDS: DIVALPROEX 125 MG CAP.SPRINK PO SCH ×2 (09:50→20:06)
[2016-11-15] MEDS: clonazePAM 0.5 MG TABLET PO SCH ×2 (09:53→16:54)
--- NOTE | 2016-11-15 10:00 | NUR ---
Patient is refusing to take her medicine, states that there are too many pills. Will hide meds in food and attempt later.
--- NOTE | 2016-11-15 10:00 | NUR ---
Behavior Intervention Response and Plan: BIRP Note: Behavior: Assumed Care of patient, patient located in Day Room at shift change. Patient exhibited the following behavior Disorganized, Resistive, Demanding. Brief assessment on rounds of vital signs, medication needs, lab studies, and pain. Treatment plan problems 1 & 2. Intervention: Patient assessed and the following interventions initiated safety checks 15 Minute Checks Cognitive Assessment , Head to toe Assessment , Medications. Response: After interactions and interventions patient responded in the following manner, Calm , Appropriate ,Compliant. Continue to assess behaviors and condition will continue to monitor throughout the shift as needed. 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 Continue to assess patient for changes in above assessment. Monitor for medication needs, pain, and safety concerns. Hourly rounding performed to ensure safe environment.
--- NOTE | 2016-11-15 10:05 | NUR ---
Patient is in dayroom, shouting at a patient across the room, threw a tissue box at another patient. When asked to quiet down, patient became verbally abusive towards staff. PRN meds provided per eMAR and patient removed from the dayroom.
--- NOTE | 2016-11-15 10:41 | NUR ---
ASHLEY faxed updated clinicals to [facility] requesting transport to be arranged for dc on Saturday.
[2016-11-15] MEDS: MAGNESIUM OXIDE 400 MG TABLET PO SCH (11:30)
--- NOTE | 2016-11-15 11:40 | NUR ---
Patient's morning meds hidden in a boost and provided to her. PRN meds appear to have had little effect on behavior, she has continued to shout at staff. Will continue to monitor.
--- NOTE | 2016-11-15 14:15 | NUR ---
THERAPEUTIC RECREATION GROUP NOTE TITLE :Radio Hour: [employer] ACTIVITY : Cognitive stimulation GOAL : Maintain or improve cognitive functioning, memory, imagination DURATION : 45 Minutes RESPONSE : No participation.
--- NOTE | 2016-11-15 14:29 | NUR ---
Patient in hallway without pants, demanding a pair of ahuja pants in a loud voice. She poked one staff member with her fingers, and is refusing all other clothes. PRN meds provided per eMAR.
--- NOTE | 2016-11-15 14:43 | NUR ---
Attempted to provide patient with prn and scheduled meds. Patient spat them out. Second dose pulled from [employer] and will try to provide to patient.
--- NOTE | 2016-11-15 15:22 | NUR ---
[facility] Social Work Discharge Planning Form Patient Name PRIYA MCCABE Admit Date: 10/30/16 DISCHARGE PLAN Discharge Destination: return to [facility] Transportation: Facility to poultry picking machine tender 11/16/16 at time TBD (will call nursing in am) Special Instructions/Notes: Follow up w/Lacy at [facility] if they have not called w/a transport time. DISCHARGE TO FACILITY Facility: [facility] Address: [place] [address] Contact Name: PCP: at facility w/in 10-12 days of dc Psychiatrist: at facility w/in 10-12 days of dc Addendum: 11/16/16 at 1447 by RENATA RAMIREZ Discharge changed to Saturday due to transport problems.
--- NOTE | 2016-11-15 15:27 | NUR ---
ASHLEY left message for Crystal at [facility] following up w/faxed clinicals this am and a requested time for worm picker on Saturday. Directions were left for Crystal if follow up did not occur on by end of , to call the main nursing number in the am and report the time for worm picker.
[2016-11-15 16:49] VITALS: BP 110/60
--- NOTE | 2016-11-15 19:45 | PDOC ---
Exam Napoleon Demential Exam: Napoleon Note: Please also refer to the separate dictated note~for this date of service dictated separately.~Patient seen individually. Discussed the patient with Nursing staff reviewed the chart.~Reviewed interim history and current functioning. Reviewed vital signs,~Labs/ Radiology~and current medications noted below. Continue current treatment with the changes noted in the dictated addendum note Assessment: Vital Signs: Vital Signs Date Time Temp Pulse Resp B/P (MAP) Pulse Ox O2 Delivery O2 Flow Rate FiO2 11/15/16 16:49 97.9 88 18 110/60 (77) 95 11/14/16 16:01 Room Air I&O Intake and Output 11/15/16 07:00 Intake Total 1675 ml Output Total 1 ml Balance 1674 ml Intake Oral 1675 ml Output Urine Total 1 ml # Bowel Movements 1 Labs: Laboratory Tests Test 11/15/16 07:13 11/15/16 07:30 11/15/16 11:30 11/15/16 17:11 Glucose (Fingerstick) 63 mg/dL (70-99) L 61 mg/dL (70-99) L 128 mg/dL (70-99) H 226 mg/dL (70-99) H Test 11/15/16 18:57 Glucose (Fingerstick) 230 mg/dL (70-99) H Current Medications: Meds: Current Medications Acetaminophen (Tylenol) 650 mg PRN Q6HRS PRN PO PAIN / TEMP; Start 10/30/16 at 01:15 Multi-Ingredient Ointment (Analgesic [place]) 1 lyndon PRN QID PRN TP MUSCLE PAIN; Start 10/30/16 at 01:15 Al Hydroxide/Mg Hydroxide (Mylanta Plus Xs) 15 ml PRN AFTMEALHC PRN PO DYSPEPSIA; Start 10/30/16 at 01:15 Magnesium Hydroxide (Milk Of Magnesia) 2,400 mg PRN QHS PRN PO CONSTIPATION; Start 10/30/16 at 01:15 Benztropine Mesylate (Cogentin) 0.5 mg BID PO Last administered on 11/15/16t 09 :48; Start 10/30/16 at 09:00 Clonazepam (KlonoPIN) 0.5 mg DAILY PO ; Start 10/30/16 at 09:00; Stop 10/30/16 at 09:00; Status DC Clonazepam (KlonoPIN) 1 mg BID PO Last administered on 11/08/16 08:14; Start 10/30/16 at 09:00; Stop 11/08/16 at 18:35; Status DC Divalproex Sodium (Depakote Er) 500 mg BID PO ; Start 10/30/16 at 09:00; Stop 10/30/16 at 09:00; Status DC Quetiapine Fumarate (SEROquel) 150 mg QID PO Last administered on 10/31/16 20: 07; Start 10/30/16 at 09:00; Stop 11/01/16 at 07:59; Status DC Risperidone (RisperDAL CONSTA) 50 mg Q2WKS IM Last administered on 11/13/16 14 :16; Start 10/30/16 at 09:00; Stop 11/14/16 at 14:40; Status DC Furosemide (Lasix) 60 mg BID92 PO Last administered on 11/15/16 14:10; Start 10/30/16 at 09:00 Insulin Detemir (Levemir) 55 units QHS SQ Last administered on 11/14/16 19:49 ; Start 10/30/16 at 21:00 Albuterol/ Ipratropium (Duoneb) 3 ml PRN DAILY PRN NEB SHORTNESS OF BREATH; Start 10/30/16 at 01:15; Stop 10/30/16 at 02:29; Status DC Potassium Chloride (KCl Oral Soln) 20 meq BIDWMEALS PO Last administered on 08:33; Start 10/30/16 at 08:00; Stop 11/05/16 at 10:08; Status DC Metformin HCl (Glucophage) 1,000 mg BIDWMEALS PO Last administered on 16:52; Start 10/30/16 at 08:00 Clonazepam (KlonoPIN) 0.5 mg DAILY16 PO Last administered on 11/08/16 16:27; Start 10/30/16 at 16:00; Stop 11/08/16 at 18:35; Status DC Divalproex Sodium (Depakote Er) 500 mg QID PO Last administered on 10/31/16 17: 09; Start 10/30/16 at 09:00; Stop 10/31/16 at 17:43; Status DC Albuterol/ Ipratropium (Duoneb) 3 ml PRN QID PRN NEB SHORTNESS OF BREATH; Start 10/31/16 at 01:15 Olanzapine (ZyPREXA ZYDIS) 5 mg PRN Q2HR PRN PO PSYCHOSIS Last administered on 11/15/16 14:22; Start 10/30/16 at 05:15 Mirtazapine (Remeron) 15 mg QHS PO Last administered on 11/14/16 19:45; Start 10/30/16 at 21:00 Buspirone HCl (Buspar) 5 mg BID PO Last administered on 11/09/16 07:55; Start 10/30/16 at 21:00; Stop 11/09/16 at 18:36; Status DC Vitamin D (Vitamin D3) 50,000 unit WEEKLY PO Last administered on 11/08/16 08: 14; Start 11/01/16 at 09:00 Divalproex Sodium (Depakote Sprinkles) 1,000 mg BID PO Last administered on 11/02 07:48; Start 10/31/16 at 21:00; Stop 11/02/16 at 18:49; Status DC Haloperidol Lactate (Haldol Oral) 5 mg DAILY PO Last administered on 11/04/16 08:48; Start 11/01/16 at 09:00; Stop 11/04/16 at 18:01; Status DC Divalproex Sodium (Depakote Sprinkles) 750 mg BID PO Last administered on 09:50; Start 11/02/16 at 21:00 Haloperidol Lactate (Haldol Oral) 7.5 mg DAILY PO Last administered on 08:53; Start 11/05/16 at 09:00; Stop 11/07/16 at 18:29; Status DC Potassium Chloride (KCl Oral Soln) 40 meq BIDWMEALS PO Last administered on 14:27; Start 11/05/16 at 17:00; Stop 11/12/16 at 16:39; Status DC Magnesium Oxide (Magnesium Oxide) 400 mg DAILYBFRLUN PO Last administered on 11:55; Start 11/05/16 at 11:30 Potassium Chloride (Klor-Con) 20 meq 1X ONCE PO Last administered on 13:27; Start 11/05/16 at 10:30; Stop 11/05/16 at 10:31; Status DC Haloperidol Lactate (Haldol Oral) 10 mg DAILY PO Last administered on 11:05; Start 11/08/16 at 09:00; Stop 11/13/16 at 14:43; Status DC Clonazepam (KlonoPIN) 0.5 mg BIDACBL PO ; Start 11/09/16 at 07:30; Stop at 07:58; Status DC Clonazepam (KlonoPIN) 1 mg HS PO Last administered on 11/14/16 19:48; Start at 21:00 Clonazepam (KlonoPIN) 0.5 mg BID94 PO Last administered on 11/15/16 16:54; Start 11/09/16 at 09:00 Buspirone HCl (Buspar) 5 mg QID PO Last administered on 11/15/16 16:52; Start 11/09/16 at 21:00 Potassium Chloride (Klor-Con) 40 meq BIDWMEALS PO Last administered on 16:52; Start 11/12/16 at 17:00 Haloperidol Lactate (Haldol Oral) 10 mg 1X ONCE PO Last administered on 08:05; Start 11/13/16 at 08:15; Stop 11/13/16 at 08:16; Status DC Haloperidol Lactate (Haldol Oral) 5 mg DAILY PO ; Start 11/16/16 at 09:00; Stop 11/16/16 at 09:00; Status DC Haloperidol Decanoate (Haldol Decanoate Im Extended Release) 100 mg Q4WK IM ; Start 12/11/16 at 09:00; Stop 12/11/16 at 09:00; Status DC Haloperidol Decanoate (Haldol Decanoate Im Extended Release) 100 mg Q4WK IM ; Start 11/20/16 at 09:00; Stop 11/20/16 at 09:00; Status DC Haloperidol Lactate (Haldol Oral) 10 mg DAILY PO ; Start 11/14/16 at 09:00; Stop 11/14/16 at 09:00; Status DC Haloperidol Decanoate (Haldol Decanoate Im Extended Release) 100 mg Q4WK IM Last administered on 11/14/16t 09:51; Start 11/14/16 at 09:00 Active Scripts Active Reported Seroquel (Quetiapine Fumarate) 100 Mg Tablet 150 Mg PO QID Risperdal Consta (Risperidone Microspheres) 50 Mg/2 Ml Disp.syrin 50 Mg IM Q2WKS Potassium Chloride Oral Liquid (Potassium Chloride) 20 Meq/15 Ml Liquid 20 Meq PO BID Metformin Hcl 1,000 Mg Tablet 1,000 Mg PO BIDWMEALS Levemir Flextouch (Insulin Detemir) 100 Unit/1 Ml Insuln.pen 55 Unit SQ QHS Haldol (Haloperidol Lactate) 5 Mg/1 Ml Ampul 5 Mg IM PRN Q6HRS PRN Clonazepam 1 Mg Tablet 1 Mg PO BID Furosemide 40 Mg Tablet 60 Mg PO [id number] Hold for SBP less than 100. After held dose, reassess in 2 hours. If SBP is above threshold, administer dose as ordered. If SBP is below threshold, contact provider for additional instructions. Duoneb 0.5-3(2.5) Mg/3 Ml (Albuterol/Ipratropium) 3 Ml Ampul.neb 3 Ml NEB PRN QID PRN Depakote Er (Divalproex Sodium) 500 Mg Tab.er.24h 500 Mg PO QID Give with food. DO NOT CRUSH OR CHEW Cyanocobalamin Injection (Cyanocobalamin (Vitamin B-12)) 1,000 Mcg/1 Ml Vial 2, 000 Mcg IM [id number] Clonazepam 0.5 Mg Tablet 0.5 Mg PO DAILY16 Benztropine Mesylate 0.5 Mg Tablet 0.5 Mg PO BID Diagnosis: Problems: (1) Schizophrenia (2) Acute exacerbation of psychosis (3) Depression (4) Schizoaffective disorder (5) Anxiety disorder (6) Impulse control disorder (7) Schizoaffective disorder, chronic condition with acute exacerbation KALIN STARKS MD Nov 15, 2016 19:45
[2016-11-15] MEDS: MIRTAZAPINE 15 MG TABLET PO SCH (20:06)
[2016-11-15] MEDS: clonazePAM 1 MG TABLET PO SCH (20:07)
[2016-11-15] MEDS: INSULIN DETEMIR 300 UNITS/3 ML INSULN.PEN. SQ SCH (20:09)
--- NOTE | 2016-11-15 23:05 | NUR ---
Behavior Intervention Response and Plan: BIRP Note: Behavior: Assumed Care of patient, patient located in Day Room at shift change. Patient exhibited the following behavior Disorganized, Irritable, Demanding. Brief assessment on rounds of vital signs, medication needs, lab studies, and pain. Treatment plan problems 1 and 2. Intervention: Patient assessed and the following interventions initiated safety checks 15 Minute Checks Cognitive Assessment , Head to toe Assessment , Medications. Response: After interactions and interventions patient responded in the following manner, Demanding , Irritable ,Resistive. Continue to assess behaviors and condition will continue to monitor throughout the shift as needed. Plan: Continue to monitor Master Treatment Plan for patient's progress toward short term goals of Decreased Agitation, Medication Compliance, senior living goals to return to previous living setting vs placement. Continue to assess patient for changes in above assessment. Monitor for medication needs, pain, and safety concerns. Hourly rounding performed to ensure safe environment.
[2016-11-16] MEDS ORDERED: ACET325T9 PO (00:56)
[2016-11-16] MEDS ORDERED: CHOL500021 PO (00:59)
[2016-11-16] MEDS ORDERED: MAGN2400 PO (01:01)
[2016-11-16] MEDS ORDERED: MAG355OR11 PO (01:01)
[2016-11-16] MEDS ORDERED: MAGN400T3 PO (01:02)
[2016-11-16] MEDS ORDERED: METH29OI TP (01:03)
[2016-11-16] MEDS ORDERED: POTA20TA4 PO (01:04)
[2016-11-16] MEDS ORDERED: DIVA125C PO (01:06)
[2016-11-16] MEDS ORDERED: HALO100A2 IM (01:11)
[2016-11-16] MEDS ORDERED: MIRT15TA3 PO (01:12)
[2016-11-16] MEDS ORDERED: OLAN5TAB5 PO (01:14)
[2016-11-16] MEDS ORDERED: BUSP5TAB PO (01:16)
[2016-11-16 05:54] VITALS: BP 110/66
[2016-11-16 07:33] LABS: BASO % 0 % (0-3); EOS % 1 % (0-3); HEMATOCRIT 41.4 % (36.0-47.0); HEMOGLOBIN 12.5 g/dL (12.0-15.5); LYMPH # 2.4 x10^3/uL (1.0-4.8); LYMPH % 36 % (24-48); MEAN CORPUSCULAR HEMOGLOBIN 25 pg (25-35); MEAN CORPUSCULAR HGB CONC 30 g/dL (31-37); MEAN CORPUSCULAR VOLUME 83 fL (79-100); MONO # 0.7 x10^3/uL (0.0-1.1); MONO % 10 % (0-9); NEUT # 3.6 x10^3uL (1.8-7.7); NEUT % 53 % (31-73); PLATELET COUNT 236 x10^3/uL (140-400); RED BLOOD COUNT 4.98 x10^6/uL (3.50-5.40); RED CELL DISTRIBUTION WIDTH 19.4 % (11.5-14.5); WHITE BLOOD COUNT 6.8 x10^3/uL (4.0-11.0)
[2016-11-16 07:49] LABS: ALBUMIN/GLOBULIN RATIO 0.6 (1.0-1.7); CALCIUM 8.8 mg/dL (8.5-10.1); CREATININE 0.8 mg/dL (0.6-1.0); GFR 72.7; POTASSIUM 3.7 mmol/L (3.5-5.1); TOTAL BILIRUBIN 0.1 mg/dL (0.2-1.0); TOTAL PROTEIN 8.4 g/dL (6.4-8.2)
[2016-11-16] MEDS: FUROSEMIDE 40 MG TABLET PO SCH ×2 (08:34→11:49)
[2016-11-16] MEDS: POTASSIUM CHLORIDE 20 MEQ TABLET.ER. PO SCH ×2 (08:34→18:52)
[2016-11-16] MEDS: BENZTROPINE MESYLATE 0.5 MG TABLET PO SCH ×2 (08:34→20:21)
[2016-11-16] MEDS: metFORMIN 500 MG TABLET PO SCH ×2 (08:34→18:52)
[2016-11-16] MEDS: busPIRone 5 MG TABLET. PO SCH ×4 (08:35→20:21)
[2016-11-16] MEDS: DIVALPROEX 125 MG CAP.SPRINK PO SCH ×2 (08:37→20:21)
[2016-11-16] MEDS: clonazePAM 0.5 MG TABLET PO SCH ×2 (08:38→18:52)
[2016-11-16] MEDS ORDERED: HALOPERIDOL 10 MG/5 ML ORAL.CONC. PO SCH ×2 (09:00→21:00)
--- NOTE | 2016-11-16 10:30 | NUR ---
ASHLEY was told by Nursing Pt's facility is having difficulty in arranging transport for Pt. to dc today. ASHLEY followed up w/Crystal at [facility] and provided contact information for [facility], [facility] and [place] Medicaid transport. Crystal will follow up w/ASHLEY after contacting these alternative companies. Crystal is able to have [facility] scheduled for Saturday.
--- NOTE | 2016-11-16 10:35 | NUR ---
Behavior Intervention Response and Plan: BIRP Note: Behavior: Assumed Care of patient, patient located in Dining Room at shift change. Patient exhibited the following behavior Non Compliant with Meds, Demanding, Attention Seeking. Brief assessment on rounds of vital signs, medication needs, lab studies, and pain. Treatment plan problems . Intervention: Patient assessed and the following interventions initiated safety checks 15 Minute Checks Cognitive Assessment , Head to toe Assessment , Medications. Response: After interactions and interventions patient responded in the following manner, Irritable , Defensive ,Attention Seeking. Continue to assess behaviors and condition will continue to monitor throughout the shift as needed. Plan: Continue to monitor Master Treatment Plan for patient's progress toward short term goals of Decreased Agitation, Decreased Anxiety, jail goals to return to previous living setting vs placement. Continue to assess patient for changes in above assessment. Monitor for medication needs, pain, and safety concerns. Hourly rounding performed to ensure safe environment.
[2016-11-16] MEDS ORDERED: LORazepam 2 MG/ML VIAL IV PRN (11:15)
[2016-11-16] MEDS: MAGNESIUM OXIDE 400 MG TABLET PO SCH (11:30)
--- NOTE | 2016-11-16 12:36 | NUR ---
ASHLEY received return call from Crystal at [facility] regarding transport time of Saturday at 1300. ASHLEY notified KAIDEN Araujo of change in day.
--- NOTE | 2016-11-16 12:37 | NUR ---
ASHLEY notified Pt's GuardianKimmy of Pt's plan for dc on Saturday.
--- NOTE | 2016-11-16 14:47 | NUR ---
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 Special Instructions/Notes: Follow up w/[place] if transport has not arrived by time.. DISCHARGE TO FACILITY Facility: [facility] Address: [place] [address] Contact Name: PCP: at facility w/in 10-12 days of dc Psychiatrist: at facility w/in 10-12 days of dc skilled orders provided, per facility request.
[2016-11-16 16:30] VITALS: BP 117/74
--- NOTE | 2016-11-16 19:11 | NUR ---
pt up in wc for meals. yelling out. minimal redirection. prn zydis x2 given hidden in PB and J.
--- NOTE | 2016-11-16 19:58 | PDOC ---
Exam Napoleon Demential Exam: Napoleon Note: Please also refer to the separate dictated note~for this date of service dictated separately.~Patient seen individually. Discussed the patient with Nursing staff reviewed the chart.~Reviewed interim history and current functioning. Reviewed vital signs,~Labs/ Radiology~and current medications noted below. Continue current treatment with the changes noted in the dictated addendum note Assessment: Vital Signs: Vital Signs Date Time Temp Pulse Resp B/P (MAP) Pulse Ox O2 Delivery O2 Flow Rate FiO2 11/16/16 16:30 97.4 87 18 117/74 (88) 95 Room Air I&O Intake and Output 11/16/16 07:00 Intake Total 1195 ml Balance 1195 ml Intake Oral 1195 ml # Voids 1 Labs: Laboratory Tests Test 11/16/16 06:38 11/16/16 07:12 11/16/16 07:51 11/16/16 11:53 White Blood Count 6.8 x10^3/uL (4.0-11.0) Red Blood Count 4.98 x10^6/uL (3.50-5.40) Hemoglobin 12.5 g/dL (12.0-15.5) Hematocrit 41.4 % (36.0-47.0) Mean Corpuscular Volume 83 fL (79-100) Mean Corpuscular Hemoglobin 25 pg (25-35) Mean Corpuscular Hemoglobin Concent 30 g/dL (31-37) L Red Cell Distribution Width 19.4 % (11.5-14.5) H Platelet Count 236 x10^3/uL (140-400) Neutrophils (%) (Auto) 53 % (31-73) Lymphocytes (%) (Auto) 36 % (24-48) Monocytes (%) (Auto) 10 % (0-9) H Eosinophils (%) (Auto) 1 % (0-3) Basophils (%) (Auto) 0 % (0-3) Neutrophils # (Auto) 3.6 x10^3uL (1.8-7.7) Lymphocytes # (Auto) 2.4 x10^3/uL (1.0-4.8) Monocytes # (Auto) 0.7 x10^3/uL (0.0-1.1) Eosinophils # (Auto) 0.0 x10^3/uL (0.0-0.7) Basophils # (Auto) 0.0 x10^3/uL (0.0-0.2) Sodium Level 143 mmol/L (136-145) Potassium Level 3.7 mmol/L (3.5-5.1) Chloride Level 98 mmol/L (98-107) Carbon Dioxide Level 42 mmol/L (21-32) H Anion Gap 3 (6-14) L Blood Urea Nitrogen 13 mg/dL (7-20) Creatinine 0.8 mg/dL (0.6-1.0) Estimated GFR (Cockcroft-Gault) 72.7 BUN/Creatinine Ratio 16 (6-20) Glucose Level 64 mg/dL (70-99) L Calcium Level 8.8 mg/dL (8.5-10.1) Total Bilirubin 0.1 mg/dL (0.2-1.0) L Aspartate Amino Transferase (AST) 16 U/L (15-37) Alanine Aminotransferase (ALT) 18 U/L (14-59) Alkaline Phosphatase 122 U/L (46-116) H Total Protein 8.4 g/dL (6.4-8.2) H Albumin 3.0 g/dL (3.4-5.0) L Albumin/Globulin Ratio 0.6 (1.0-1.7) L Glucose (Fingerstick) 66 mg/dL (70-99) L 103 mg/dL (70-99) H 149 mg/dL (70-99) H Test 11/16/16 19:17 Glucose (Fingerstick) 193 mg/dL (70-99) H Current Medications: Meds: Current Medications Acetaminophen (Tylenol) 650 mg PRN Q6HRS PRN PO PAIN / TEMP; Start 10/30/16 at 01:15 Multi-Ingredient Ointment (Analgesic [place]) 1 guanaco PRN QID PRN TP MUSCLE PAIN; Start 10/30/16 at 01:15 Al Hydroxide/Mg Hydroxide (Mylanta Plus Xs) 15 ml PRN AFTMEALHC PRN PO DYSPEPSIA; Start 10/30/16 at 01:15 Magnesium Hydroxide (Milk Of Magnesia) 2,400 mg PRN QHS PRN PO CONSTIPATION; Start 10/30/16 at 01:15 Benztropine Mesylate (Cogentin) 0.5 mg BID PO Last administered on 11/16/16 08 :34; Start 10/30/16 at 09:00 Clonazepam (KlonoPIN) 0.5 mg DAILY PO ; Start 10/30/16 at 09:00; Stop 10/30/16 at 09:00; Status DC Clonazepam (KlonoPIN) 1 mg BID PO Last administered on 11/08/16 08:14; Start 10/30/16 at 09:00; Stop 11/08/16 at 18:35; Status DC Divalproex Sodium (Depakote Er) 500 mg BID PO ; Start 10/30/16 at 09:00; Stop 10/30/16 at 09:00; Status DC Quetiapine Fumarate (SEROquel) 150 mg QID PO Last administered on 10/31/16 20: 07; Start 10/30/16 at 09:00; Stop 11/01/16 at 07:59; Status DC Risperidone (RisperDAL CONSTA) 50 mg Q2WKS IM Last administered on 11/13/16 14 :16; Start 10/30/16 at 09:00; Stop 11/14/16 at 14:40; Status DC Furosemide (Lasix) 60 mg BID92 PO Last administered on 11/16/16 11:49; Start 10/30/16 at 09:00 Insulin Detemir (Levemir) 55 units QHS SQ Last administered on 11/15/16 20:09 ; Start 10/30/16 at 21:00 Albuterol/ Ipratropium (Duoneb) 3 ml PRN DAILY PRN NEB SHORTNESS OF BREATH; Start 10/30/16 at 01:15; Stop 10/30/16 at 02:29; Status DC Potassium Chloride (KCl Oral Soln) 20 meq BIDWMEALS PO Last administered on 08:33; Start 10/30/16 at 08:00; Stop 11/05/16 at 10:08; Status DC Metformin HCl (Glucophage) 1,000 mg BIDWMEALS PO Last administered on 18:52; Start 10/30/16 at 08:00 Clonazepam (KlonoPIN) 0.5 mg DAILY16 PO Last administered on 11/08/16 16:27; Start 10/30/16 at 16:00; Stop 11/08/16 at 18:35; Status DC Divalproex Sodium (Depakote Er) 500 mg QID PO Last administered on 10/31/16 17: 09; Start 10/30/16 at 09:00; Stop 10/31/16 at 17:43; Status DC Albuterol/ Ipratropium (Duoneb) 3 ml PRN QID PRN NEB SHORTNESS OF BREATH; Start 10/31/16 at 01:15 Olanzapine (ZyPREXA ZYDIS) 5 mg PRN Q2HR PRN PO PSYCHOSIS Last administered on 11/16/16 11:49; Start 10/30/16 at 05:15 Mirtazapine (Remeron) 15 mg QHS PO Last administered on 11/15/16 20:06; Start 10/30/16 at 21:00 Buspirone HCl (Buspar) 5 mg BID PO Last administered on 11/09/16 07:55; Start 10/30/16 at 21:00; Stop 11/09/16 at 18:36; Status DC Vitamin D (Vitamin D3) 50,000 unit WEEKLY PO Last administered on 11/08/16 08: 14; Start 11/01/16 at 09:00 Divalproex Sodium (Depakote Sprinkles) 1,000 mg BID PO Last administered on 11/02 07:48; Start 10/31/16 at 21:00; Stop 11/02/16 at 18:49; Status DC Haloperidol Lactate (Haldol Oral) 5 mg DAILY PO Last administered on 11/04/16 08:48; Start 11/01/16 at 09:00; Stop 11/04/16 at 18:01; Status DC Divalproex Sodium (Depakote Sprinkles) 750 mg BID PO Last administered on 08:37; Start 11/02/16 at 21:00 Haloperidol Lactate (Haldol Oral) 7.5 mg DAILY PO Last administered on 08:53; Start 11/05/16 at 09:00; Stop 11/07/16 at 18:29; Status DC Potassium Chloride (KCl Oral Soln) 40 meq BIDWMEALS PO Last administered on 14:27; Start 11/05/16 at 17:00; Stop 11/12/16 at 16:39; Status DC Magnesium Oxide (Magnesium Oxide) 400 mg DAILYBFRLUN PO Last administered on 11:55; Start 11/05/16 at 11:30 Potassium Chloride (Klor-Con) 20 meq 1X ONCE PO Last administered on 13:27; Start 11/05/16 at 10:30; Stop 11/05/16 at 10:31; Status DC Haloperidol Lactate (Haldol Oral) 10 mg DAILY PO Last administered on 11:05; Start 11/08/16 at 09:00; Stop 11/13/16 at 14:43; Status DC Clonazepam (KlonoPIN) 0.5 mg BIDACBL PO ; Start 11/09/16 at 07:30; Stop at 07:58; Status DC Clonazepam (KlonoPIN) 1 mg HS PO Last administered on 11/15/16 20:07; Start at 21:00 Clonazepam (KlonoPIN) 0.5 mg BID94 PO Last administered on 11/16/16 18:52; Start 11/09/16 at 09:00 Buspirone HCl (Buspar) 5 mg QID PO Last administered on 11/16/16 18:52; Start 11/09/16 at 21:00 Potassium Chloride (Klor-Con) 40 meq BIDWMEALS PO Last administered on 18:52; Start 11/12/16 at 17:00 Haloperidol Lactate (Haldol Oral) 10 mg 1X ONCE PO Last administered on 08:05; Start 11/13/16 at 08:15; Stop 11/13/16 at 08:16; Status DC Haloperidol Lactate (Haldol Oral) 5 mg DAILY PO ; Start 11/16/16 at 09:00; Stop 11/16/16 at 09:00; Status DC Haloperidol Decanoate (Haldol Decanoate Im Extended Release) 100 mg Q4WK IM ; Start 12/11/16 at 09:00; Stop 12/11/16 at 09:00; Status DC Haloperidol Decanoate (Haldol Decanoate Im Extended Release) 100 mg Q4WK IM ; Start 11/20/16 at 09:00; Stop 11/20/16 at 09:00; Status DC Haloperidol Lactate (Haldol Oral) 10 mg DAILY PO ; Start 11/14/16 at 09:00; Stop 11/14/16 at 09:00; Status DC Haloperidol Decanoate (Haldol Decanoate Im Extended Release) 100 mg Q4WK IM Last administered on 11/14/16t 09:51; Start 11/14/16 at 09:00 Lorazepam (Ativan) 1 mg 1X PRN IV GIVE PRIOR TO DISCHARGE; Start 11/16/16 at 11 :15 Haloperidol Lactate (Haldol Oral) 10 mg HS PO ; Start 11/16/16 at 21:00 Active Scripts Active Reported Buspirone Hcl 5 Mg Tablet 5 Mg PO QID Zyprexa Zydis (Olanzapine) 5 Mg Tab.rapdis 5 Mg PO PRN Q2HR PRN Mirtazapine 15 Mg Tablet 15 Mg PO QHS Haldol Decanoate 100 (Haloperidol Decanoate) 100 Mg/1 Ml Ampul 100 Mg IM Q4WK Depakote Sprinkle (Divalproex Sodium) 125 Mg Cap.sprink 750 Mg PO BID Klor-Con M20 (Potassium Chloride) 20 Meq Tab.er.prt 40 Meq PO BIDWMEALS Analgesic [place] (Methyl Salicylate/Menthol) 28 Gm Oint...g. 1 Guanaco TP PRN QID PRN Magnesium Oxide 400 Mg Tablet 400 Mg PO DAILYBFRLUN Milk Of Magnesia (Magnesium Hydroxide) 2,400 Mg/10 Ml Oral.susp 2,400 Mg PO PRN QHS PRN Maalox Advanced Suspension (Mag Hydrox/Aluminum Hyd/Simeth) 355 Ml Oral.susp 15 Ml PO PRN AFTMEALHC PRN D3-50 (Cholecalciferol (Vitamin D3)) 50,000 Unit Capsule 50,000 Unit PO WEEKLY Tylenol (Acetaminophen) 325 Mg Tablet 650 Mg PO PRN Q6HRS PRN Metformin Hcl 1,000 Mg Tablet 1,000 Mg PO BIDWMEALS Levemir Flextouch (Insulin Detemir) 100 Unit/1 Ml Insuln.pen 55 Unit SQ QHS Clonazepam 1 Mg Tablet 1 Mg PO HS Furosemide 40 Mg Tablet 60 Mg PO BID92 Hold for SBP less than 100. After held dose, reassess in 2 hours. If SBP is above threshold, administer dose as ordered. If SBP is below threshold, contact provider for additional instructions. Duoneb 0.5-3(2.5) Mg/3 Ml (Albuterol/Ipratropium) 3 Ml Ampul.neb 3 Ml NEB PRN QID PRN Clonazepam 0.5 Mg Tablet 0.5 Mg PO BID94 Benztropine Mesylate 0.5 Mg Tablet 0.5 Mg PO BID Diagnosis: Problems: (1) Schizophrenia (2) Acute exacerbation of psychosis (3) Depression (4) Schizoaffective disorder (5) Anxiety disorder (6) Impulse control disorder (7) Schizoaffective disorder, chronic condition with acute exacerbation KALIN STARKS MD Nov 16, 2016 19:58
[2016-11-16] MEDS: MIRTAZAPINE 15 MG TABLET PO SCH (20:21)
[2016-11-16] MEDS: clonazePAM 1 MG TABLET PO SCH (20:21)
[2016-11-16] MEDS: INSULIN DETEMIR 300 UNITS/3 ML INSULN.PEN. SQ SCH (20:36)
--- NOTE | 2016-11-16 22:43 | PN ---
DATE: 11/15/2016 PSYCHIATRIC PROGRESS NOTE This note covers elements not covered in my initial note. SUBJECTIVE: The patient was staffed at a treatment team meeting with the entire team the morning of 11/15/2016 and seen individually the evening of 11/15/2016. Appetite about 60%, sleeping about 5 hours, at times a little labile, suspicious of food and drinks, but she gets most of her psychotropics in her food and occasional PRNs. REVIEW OF SYSTEMS: Ambulation impaired with a walker. No CV, , pulmonary, eye system symptoms on review. MENTAL STATUS EXAM: Oriented to herself and situation. Speech coherent, at times a little loud. Abstraction fair, computation impaired, language function intact. Mood and affect, overall showing improvement, at times, somewhat labile. At the treatment team meeting, we had a lengthy discussion about disposition plans. We made several changes in her psychotropics. She is on robust dosages of antipsychotics including Haldol Decanoate 100 mg every month, Klonopin, BuSpar, along with Depakote, Remeron and she just also had Risperdal Consta injection a day before we started Haldol Decanoate. In view of all of this, it is best not to do any further changes in her psychotropics, but wait for a period of time for all of these to stabilize her. Her valproic acid level has been therapeutic at 51. IMPRESSION: Schizoaffective disorder, bipolar type, mixed with psychotic features, in partial remission. Rest unchanged. PLAN: Continue psychotropics as mentioned in my initial note. Possible transition back to custodial on 11/16/2016. KALIN STARKS MD DR: TRACIE/karli JOB#: [id number] / [id number]
--- NOTE | 2016-11-17 00:32 | NUR ---
Behavior Intervention Response and Plan: BIRP Note: Behavior: Assumed Care of patient, patient located in Day Room at shift change. Patient exhibited the following behavior Demanding, Compulsive, Attention Seeking. Brief assessment on rounds of vital signs, medication needs, lab studies, and pain. Treatment plan problems 1 and 2. Intervention: Patient assessed and the following interventions initiated safety checks 15 Minute Checks Cognitive Assessment , Head to toe Assessment , Medications. Response: After interactions and interventions patient responded in the following manner, Demanding , Compulsive ,Resistive. Continue to assess behaviors and condition will continue to monitor throughout the shift as needed. Plan: Continue to monitor Master Treatment Plan for patient's progress toward short term goals of Decreased Agitation, Medication Compliance, skilled nursing goals to return to previous living setting vs placement. Continue to assess patient for changes in above assessment. Monitor for medication needs, pain, and safety concerns. Hourly rounding performed to ensure safe environment.
[2016-11-17 05:54] VITALS: BP 103/63
[2016-11-17] MEDS ORDERED: HALO10TA PO (07:05)
--- NOTE | 2016-11-17 07:54 | NUR ---
Confirmed with Dr. Feliz pt ok to discharge and add the following order to dc instructions: If patient is stable in 2 weeks oral haldol may be reduced 1mg per day per week. Communicated this to pts nurse and wrote on d/c med list.
[2016-11-17] MEDS: busPIRone 5 MG TABLET. PO SCH ×2 (08:26→13:00)
[2016-11-17] MEDS: FUROSEMIDE 40 MG TABLET PO SCH (08:27)
[2016-11-17] MEDS: POTASSIUM CHLORIDE 20 MEQ TABLET.ER. PO SCH (08:27)
[2016-11-17] MEDS: BENZTROPINE MESYLATE 0.5 MG TABLET PO SCH (08:27)
[2016-11-17] MEDS: metFORMIN 500 MG TABLET PO SCH (08:27)
[2016-11-17] MEDS: DIVALPROEX 125 MG CAP.SPRINK PO SCH (08:28)
[2016-11-17] MEDS: clonazePAM 0.5 MG TABLET PO SCH (08:29)
--- NOTE | 2016-11-17 08:55 | NUR ---
Behavior Intervention Response and Plan: BIRP Note: Behavior: Assumed Care of patient, patient located in Dining Room at shift change. Patient exhibited the following behavior Demanding, Non Compliant with Meds, Disorganized. Brief assessment on rounds of vital signs, medication needs, lab studies, and pain. Treatment plan problems 1 & 2. Intervention: Patient assessed and the following interventions initiated safety checks 15 Minute Checks Cognitive Assessment , Head to toe Assessment , Medications. Response: After interactions and interventions patient responded in the following manner, Calm , Appropriate ,Compliant. Continue to assess behaviors and condition will continue to monitor throughout the shift as needed. 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 Continue to assess patient for changes in above assessment. Monitor for medication needs, pain, and safety concerns. Hourly rounding performed to ensure safe environment.
--- NOTE | 2016-11-17 09:45 | NUR ---
Patient in hallway, yelling about wanting her handbag and threatening staff members. She was partially redirected adn led into the dayroom where she received ruben remainder of her morning meds in a Boost with a prn as per eMAR. Will monitor for behaviours and prepare for discharge.
[2016-11-17] MEDS: MAGNESIUM OXIDE 400 MG TABLET PO SCH ×2 (11:30→12:38)
[2016-11-17] MEDS ORDERED: LORazepam 2 MG/ML VIAL IM ONE (13:35)
--- NOTE | 2016-11-17 15:54 | NUR ---
Discharge Note [facility] Patient is not currently a tobacco user. Follow up Appointment made: Date and Time 72911/17/16 instructions and Social Work Discharge planning sheet sent to next level of care. [facility] contact Number for 24 hour support [phone] Discharge Packet Sent, and discusssed with patient and caregiver that includes Copies from the record of current medications with indications and frequencies, history and physical, Psychiatric Eval with reason and justification for admission, Lab values, Radiology results , follow up instructions for continuation of care, and Social Work discharge planning form: Completed Discharge Packet Faxed to Provider/Next Level of Care: [facility] Discharge Packet Faxed with discharge Order and Discharge diagnosis sent to: [facility] Discharge Packet Discussed, and report Given to: Constantino at [facility] Discharge instruction sheet was included in the packet and sent with the patient upon discharge. Any Pending lab results can be obtained by calling [phone] Discharge Summary will be sent to next care provider when available. This includes the reason for admission, DC diagnosis, and next level of care recommendations.
--- NOTE | 2016-11-17 19:26 | DS ---
DATE OF DISCHARGE: 11/17/2016 DISCHARGE SUMMARY/PSYCHIATRIC PROGRESS NOTE REASON FOR ADMISSION: Please refer to the admission history for details. Briefly, the patient is a 61-year-old black female referred to us from [facility] by her primary care physician on account of worsening symptoms of schizoaffective disorder bipolar type. The patient had been yelling, cursing, combative, paranoid, thinks staff stole her children. She refused meds and cares. She had failed outpatient psychiatric interventions. SIGNIFICANT FINDINGS AND CLINICAL COURSE: Following admission, the patient was seen daily individually by myself, followed medically per Dr. Cardoso/Dr. Puga. She is quite disruptive, paranoid, psychotic, refusing her medications. Her entire stay was extremely challenging because of her resistance to oral psychotropic medications. Multiple changes were made in an attempt to control her psychosis and she finally seemed to be doing better on a combination of Klonopin 0.5 mg twice a day 1 mg at night, BuSpar 5 mg 4 times a day, Cogentin 0.5 mg b.i.d., Depakote Sprinkles 750 mg b.i.d. with the therapeutic level of 51. Remeron was 15 mg at bedtime, Haldol decanoate 100 mg every 30 days after the Risperdal Consta was stopped. She was also on oral Haldol liquid 10 mg at bedtime and starting in about one month, the patient is stable back at the [place] [facility]. Attempt should be made to taper this by 1 mg a day every week till it is discontinued for the oral. She was also on Zyprexa p.r.n. Despite all of this, at times, she was still intermittently psychotic, but at the time of discharge it was felt that did reached the maximum level of care we could do for her here as an inpatient, and we did have to give at time for the antipsychotics to have the full efficacy and this could be well be done back at the [place] [facility] rather than prolonging the inpatient hospitalization. Prior to discharge on 11/17/2016 temperature 97.8, BP 103/63, pulse 74. REVIEW OF SYSTEMS: Ambulation impaired in wheelchair. No CV, , pulmonary, eye system symptoms on review. MENTAL STATUS EXAM: Oriented to herself and situation. Speech coherent at times pressured. Abstraction fair, computation impaired, language function intact, attention span short. Mood and affect remains intermittently labile, but improved. No suicidal or homicidal ideation. LABORATORY DATA: Reviewed. FINAL DIAGNOSES: Schizoaffective disorder bipolar type mixed with psychotic features, in partial remission; bipolar 1 disorder, mixed with psychotic features in partial remission; cognitive disorder, unspecified; rest diagnosis unchanged from admission. DISCHARGE MEDICATIONS: Please refer to the [facility]. DISCHARGE INSTRUCTIONS: Outpatient psychiatric and medical followup at the [place] [facility]. KALIN STARKS MD DR: TRACIE/karli JOB#: [id number] / [id number]
--- NOTE | 2016-11-17 20:14 | PN ---
DATE: 11/16/2016 PSYCHIATRIC PROGRESS NOTE This is a late entry of 11/16/2016 covers elements not covered in my initial note of 11/16/2016. SUBJECTIVE: The patient remains somewhat suspicious, psychotic, intermittently restless. She is at times noncompliant with her medications, but she does have Haldol Decanoate 100 mg, which she received a couple of days back and the day before that she received Risperdal Consta as well all of which indicate she has adequate and psychotics in her system given the risk/benefit ratio we should not increase the Depo preparations for now. REVIEW OF SYSTEMS: Ambulation impaired in a wheelchair. No CV, , pulmonary, eye system symptoms on review. I helped push her wheelchair to the dining room area, but she was resistant. MENTAL STATUS EXAMINATION: Speech coherent at times a little pressured. Abstraction fair, computation impaired. No active suicidal or homicidal ideation. LABORATORY DATA: Reviewed. IMPRESSION: Unchanged from initial note. PLAN: Restart oral Haldol 10 mg p.o. daily. Continue rest of the psychotropics, Klonopin, BuSpar, Remeron, Depakote, Haldol decanoate, Zyprexa p.r.n. Plan is to transition to residential on 11/17/2016 and then the oral Haldol can be reduced by 1 mg a week starting in about a month or so post-discharge depending on how she is doing clinically. MAN Mary STARKS MD DR: TRACIE/karli JOB#: [id number] / [id number]
[2016-11-20] MEDS ORDERED: HALOPERIDOL DECANOATE IM ER 50 MG/ML VIAL. IM SCH (09:00)
[2016-12-11] MEDS ORDERED: HALOPERIDOL DECANOATE IM ER 50 MG/ML VIAL. IM SCH (09:00)
== END 2016-11-17 13:30 | DRG 885 ==
LOC: ER 22:48 → GEROPSY 10-30 00:53
PROVIDERS: ADMIT Psychiatry & Neurology Psychiatry; ATTEND Psychiatry & Neurology Psychiatry
DX: F25.0 Schizoaffective disorder, bipolar type (principal); F03.91 Unspecified dementia, unspecified severity, with behavioral disturbance; J96.11 Chronic respiratory failure with hypoxia; Z68.41 Body mass index [BMI] 40.0-44.9, adult; E11.9 Type 2 diabetes mellitus without complications; F63.9 Impulse disorder, unspecified; F41.9 Anxiety disorder, unspecified; I11.0 Hypertensive heart disease with heart failure; G47.33 Obstructive sleep apnea (adult) (pediatric); E66.01 Morbid (severe) obesity due to excess calories; E87.6 Hypokalemia; R13.10 Dysphagia, unspecified; F31.77 Bipolar disorder, in partial remission, most recent episode mixed; F09 Unspecified mental disorder due to known physiological condition; I50.9 Heart failure, unspecified; J44.9 Chronic obstructive pulmonary disease, unspecified; Z79.899 Other long term (current) drug therapy; Z91.14 Patient's other noncompliance with medication regimen; Z91.19 Patient's noncompliance with other medical treatment and regimen
CPT/HCPCS: 36415; 71010; 80053; 80061; 80164; 81001; 82306; 82607; 82728; 82947; 83036; 83540; 83550; 83735; 84165; 84436; 84443; 84480; 85027; 86592; 86593; 87324; 93005; J1631; J1815; J2060; J2794; 97530; 97535; 99285-25

== ENCOUNTER 2017-10-06 21:10 | Inpatient (IN) | payer MEDICARE, OTHER ==
[~2017-10-06] VITALS: Ht 154.9 cm; Wt 102.6 kg
[~2017-10-06 21:10] MED LIST changes: -BENZ0.5T PO; +BENZ0.5T32 PO; +BUSP5TAB PO; +CLON1TAB3 PO; +DIVA125C PO; +HALO100A2 IM; +HALO5AMP2 IM; +INSU100I27 SQ; +MAG355OR11 PO; +MAGN400T3 PO; +METF10003 PO; +MIRT15TA3 PO; +OLAN5TAB5 PO; +POTA20LI27 PO; +POTA20TA4 PO; +QUET100T4 PO; +RISP50DI IM
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
[2017-10-06] MEDS ORDERED: IV NORMAL SALINE 1,000ML 1,000 ML IV ONE (22:30)
[2017-10-06] MEDS ORDERED: ZIPRASIDONE IM 20 MG VIAL. IM ONE (22:30)
[2017-10-06] MEDS ORDERED: LORazepam 2 MG/ML VIAL IV ONE (22:30)
[2017-10-06] MEDS ORDERED: diphenhydrAMINE 50 MG/ML VIAL IV ONE (22:30)
[2017-10-06 22:42] LABS: BASO # 0.1 x10^3/uL (0.0-0.2); BASO % 1 % (0-3); EOS # 0.1 x10^3/uL (0.0-0.7); EOS % 1 % (0-3); HEMATOCRIT 43.9 % (36.0-47.0); HEMOGLOBIN 13.9 g/dL (12.0-15.5); LYMPH # 1.9 x10^3/uL (1.0-4.8); LYMPH % 33 % (24-48); MEAN CORPUSCULAR HEMOGLOBIN 27 pg (25-35); MEAN CORPUSCULAR HGB CONC 32 g/dL (31-37); MEAN CORPUSCULAR VOLUME 85 fL (79-100); MONO # 0.5 x10^3/uL (0.0-1.1); MONO % 9 % (0-9); NEUT # 3.3 x10^3uL (1.8-7.7); NEUT % 56 % (31-73); PLATELET COUNT 222 x10^3/uL (140-400); RED BLOOD COUNT 5.17 x10^6/uL (3.50-5.40); RED CELL DISTRIBUTION WIDTH 16.9 % (11.5-14.5); WHITE BLOOD COUNT 5.9 x10^3/uL (4.0-11.0)
[2017-10-06 22:49] LABS: BARBITURATES NEG (NEG); BENZODIAZEPINES NEG (NEG); CANNABINOIDS NEG (NEG); COCAINE NEG (NEG); METHADONE NEG (NEG); OPIATES NEG (NEG); PHENCYCLIDINE NEG (NEG)
[2017-10-06 22:51] LABS: AMPHETAMINE/METHAMPHETAMINE NEG (NEG)
[2017-10-06 23:00] LABS: BACTERIA,URINE FEW /HPF (0-FEW); BILIRUBIN,URINE NEG (NEG); CLARITY,URINE CLEAR; COLOR,URINE YELLOW; GLUCOSE,URINE >=1000 mg/dL (NEG); NITRITE,URINE NEG (NEG); SQUAMOUS EPITHELIAL CELL,UR OCC /LPF; UROBILINOGEN,URINE 0.2 mg/dL (0.2 mg/dL)
[2017-10-06] MEDS ORDERED: diphenhydrAMINE 50 MG/ML VIAL IM ONE (23:15)
[2017-10-06] MEDS ORDERED: LORazepam 2 MG/ML VIAL IM ONE (23:15)
[2017-10-07] MEDS ORDERED: LORazepam 2 MG/ML VIAL IM ONE
[2017-10-07] MEDS ORDERED: ZIPRASIDONE IM 20 MG VIAL. IM ONE
[2017-10-07] MEDS ORDERED: cefTRIAXone IM 1 GM VIAL IM ONE (00:30)
[2017-10-07 00:51] LABS: CREATININE 1.3 mg/dL (0.6-1.0); GFR 41.4; MAGNESIUM 1.5 mg/dL (1.8-2.4); POTASSIUM 3.1 mmol/L (3.5-5.1)
[2017-10-07] MEDS ORDERED: MAGNESIUM HYDROXIDE 2,400 MG/30 ML ORAL.SUSP. PO ONE (02:15)
[2017-10-07] MEDS ORDERED: POTASSIUM CHLORIDE 20 MEQ TABLET.ER. PO ONE (02:15)
--- NOTE | 2017-10-07 02:36 | RAD ---
INDICATION: Mental status changes COMPARISON: None. TECHNIQUE: Axial CT images obtained through the head without intravenous contrast. One or more of the following individualized dose reduction techniques were utilized for this examination: 1. Automated exposure control; 2. Adjustment of the mA and/or kV according to patient size; 3. Use of iterative reconstruction technique. FINDINGS: Prominence of the ventricles and sulci. Moderate low-attenuation throughout the white matter. Patient motion limits this exam. No midline shift. Mild subcutaneous induration the fat frontally. No definite hemorrhage IMPRESSION: 1. No acute intracranial hemorrhage. 2. Scattered regions of low attenuation within the white matter. Non-specific in nature but frequently secondary to small vessel ischemic disease. If there is concern for acute causes MRI could better assess acuity. 3. Prominence of ventricles and sulci which is frequently secondary to age related volume loss. Would also correlate for other possible causes such as normal pressure hydrocephalus. Electronically signed by: Micheal Interiano MD (10/07/2017 2:32 AM) [id number]
[2017-10-07] MEDS ORDERED: MAGNESIUM HYDROXIDE 2,400 MG/30 ML ORAL.SUSP. PO PRN (03:45)
[2017-10-07] MEDS ORDERED: ACETAMINOPHEN 325 MG TABLET PO PRN (03:45)
[2017-10-07] MEDS ORDERED: METHYL SALICYLATE/MENTHOL TOPICAL OINTMENT 29GM TUBE. TP PRN ×2 (03:45→08:00)
[2017-10-07] MEDS ORDERED: MAG HYDROX/AL HYDROX/SIMETH 30 ML ORAL.SUSP PO PRN (03:45)
[2017-10-07 04:03] VITALS: BP 169/102
[2017-10-07 04:35] LABS: ALBUMIN 3.2 g/dL (3.4-5.0); ALK PHOS 147 U/L (46-116); ALT (SGPT) 17 U/L (14-59); AST (SGOT) 13 U/L (15-37); TOTAL BILIRUBIN 0.2 mg/dL (0.2-1.0); TOTAL PROTEIN 9.1 g/dL (6.4-8.2)
[2017-10-07] MEDS ORDERED: INSU100I17 SQ (04:54)
[2017-10-07] MEDS ORDERED: ZIPR20VI IM (04:54)
[2017-10-07] MEDS ORDERED: THEO200T9 PO (04:54)
[2017-10-07] MEDS ORDERED: AMAN100T PO (04:54)
[2017-10-07] MEDS ORDERED: METO5TAB4 PO (04:54)
[2017-10-07] MEDS ORDERED: DILT120T4 PO (04:54)
[2017-10-07] MEDS ORDERED: PIOG15TA42 PO (04:54)
[2017-10-07] MEDS ORDERED: METF500T5 PO ×2 (04:54)
[2017-10-07 05:04] LABS: DIRECT BILIRUBIN < 0.1 mg/dL (0.0-0.2)
[2017-10-07 05:06] LABS: VAL ACID 40 mcg/mL (50-100)
[2017-10-07 06:01] VITALS: BP 108/51
--- NOTE | 2017-10-07 07:36 | RAD ---
Portable chest, 10/06/2017: HISTORY: Mental status change Comparison is made to a study from 10/29/2016. The heart size and pulmonary vascularity are normal. There is calcific plaquing of the aorta. There is minimal linear atelectasis or scarring laterally in the left base. The right lung is clear. There is no evidence of pleural fluid. IMPRESSION: Minimal left basilar linear atelectasis or scarring. Electronically signed by: Aramis Orellana MD (10/07/2017 7:33 AM) [facility]
[2017-10-07] MEDS ORDERED: NON FORMULARY ITEM (Mag Hydrox/Aluminum Hyd/Simeth (Maalox Advanced Suspension) 15 ML) PO PRN (08:00)
[2017-10-07] MEDS ORDERED: HALOPERIDOL DECANOATE IM SCH (08:00)
[2017-10-07] MEDS ORDERED: NON FORMULARY ITEM (Magnesium Hydroxide (Milk Of Magnesia) 2,400 MG) PO PRN (08:00)
--- NOTE | 2017-10-07 08:11 | EKG ---
[address] [address] Test Date: 2017-10-07 Test Time: 05:58:03 Pat Name: PRIYA MCCABE Department: Room: [facility] 1 Gender: Croze Machine Operator: : [id number] Requested By: ANGEL MENDOZA Order Number: [id number] Reading MD: Harrison Franco MD Measurements Intervals Bryan Rate: P: PA: QRS: QRSD: T: QT: QTc: Interpretive Statements SR PVC'S Electronically Signed On 10-14-2017 12:05:07 CDT by Harrison Franco MD
[2017-10-07] MEDS ORDERED: clonazePAM 1 MG TABLET ONE ×3 (09:00)
[2017-10-07] MEDS ORDERED: MAGNESIUM OXIDE 400 MG TABLET ONE (09:00)
[2017-10-07] MEDS ORDERED: metOLazone 5 MG TABLET ONE (09:00)
[2017-10-07] MEDS ORDERED: FUROSEMIDE 40 MG TABLET ONE ×2 (09:00)
[2017-10-07] MEDS ORDERED: THEOPHYLLINE 200 MG PO SCH (09:00)
[2017-10-07] MEDS ORDERED: MIRTAZAPINE 15 MG TABLET ONE (09:00)
[2017-10-07] MEDS ORDERED: DIVALPROEX 125 MG CAP.SPRINK PO ONE ×2 (09:00)
[2017-10-07] MEDS: PIOGLITAZONE 15 MG TABLET. PO SCH (09:28)
[2017-10-07] MEDS: busPIRone 5 MG TABLET. PO SCH ×4 (09:28→19:29)
[2017-10-07] MEDS: POTASSIUM CHLORIDE 20 MEQ TABLET.ER. PO SCH ×2 (09:29→18:01)
[2017-10-07] MEDS: DIVALPROEX 125 MG CAP.SPRINK PO SCH ×2 (09:29→19:29)
[2017-10-07] MEDS: FUROSEMIDE 40 MG TABLET PO SCH ×2 (09:29→15:06)
[2017-10-07] MEDS: MAGNESIUM OXIDE 400 MG TABLET PO SCH ×2 (09:30→19:29)
[2017-10-07] MEDS: clonazePAM 1 MG TABLET PO SCH ×3 (09:30→19:33)
[2017-10-07] MEDS: metFORMIN 500 MG TABLET PO SCH (09:30)
[2017-10-07] MEDS: CEPHALEXIN 250 MG CAPSULE PO SCH ×3 (09:30→19:29)
[2017-10-07] MEDS: AMANTADINE HCL 100 MG CAPSULE PO SCH ×2 (09:31→19:33)
[2017-10-07] MEDS: metOLazone 5 MG TABLET PO SCH (09:31)
[2017-10-07] MEDS: THEOPHYLLINE ANHYDROUS 400 MG TABLET.ER. PO SCH ×2 (09:31→19:33)
[2017-10-07 14:45] LABS: THYROID STIM HORMONE (TSH) 3.787 uIU/mL (0.358-3.740)
[2017-10-07 15:58] VITALS: BP 137/80
[2017-10-07] MEDS: MIRTAZAPINE 15 MG TABLET PO SCH (19:33)
[2017-10-07] MEDS: LACTOBACILLUS RHAMNOSUS GG 1 CAPSULE. PO SCH (19:33)
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
--- NOTE | 2017-10-07 20:59 | PDOC ---
Exam Note: Napoleon Note: Please also refer to the separate dictated note~for this date of service dictated separately.~Patient seen individually. Discussed the patient with Nursing staff reviewed the chart.~Reviewed interim history and current functioning. Reviewed vital signs,~Labs/ Radiology~and current medications noted below. Continue current treatment with the changes noted in the dictated addendum note Assessment: Vital Signs: Vital Signs Date Time Temp Pulse Resp B/P (MAP) Pulse Ox O2 Delivery O2 Flow Rate FiO2 10/07/17 15:58 97.9 100 20 137/80 (99) 94 10/07/17 04:03 Room Air 10/07/17 02:08 97.0 I&O Intake and Output 10/07/17 07:00 Intake Total 1000 ml Balance 1000 ml IV Total 1000 ml Labs: Laboratory Tests Test 10/06/17 22:13 10/06/17 23:55 White Blood Count 5.9 x10^3/uL (4.0-11.0) Red Blood Count 5.17 x10^6/uL (3.50-5.40) Hemoglobin 13.9 g/dL (12.0-15.5) Hematocrit 43.9 % (36.0-47.0) Mean Corpuscular Volume 85 fL (79-100) Mean Corpuscular Hemoglobin 27 pg (25-35) Mean Corpuscular Hemoglobin Concent 32 g/dL (31-37) Red Cell Distribution Width 16.9 % (11.5-14.5) H Platelet Count 222 x10^3/uL (140-400) Neutrophils (%) (Auto) 56 % (31-73) Lymphocytes (%) (Auto) 33 % (24-48) Monocytes (%) (Auto) 9 % (0-9) Eosinophils (%) (Auto) 1 % (0-3) Basophils (%) (Auto) 1 % (0-3) Neutrophils # (Auto) 3.3 x10^3uL (1.8-7.7) Lymphocytes # (Auto) 1.9 x10^3/uL (1.0-4.8) Monocytes # (Auto) 0.5 x10^3/uL (0.0-1.1) Eosinophils # (Auto) 0.1 x10^3/uL (0.0-0.7) Basophils # (Auto) 0.1 x10^3/uL (0.0-0.2) Urine Collection Type Unknown Urine Color Yellow Urine Clarity Clear Urine pH 6.5 Urine Specific [place] 1.010 Urine Protein Neg (NEG-TRACE) Urine Glucose (UA) >=1000 mg/dL (NEG) Urine Ketones (Stick) Neg mg/dL (NEG) Urine Blood Trace (NEG) Urine Nitrite Neg (NEG) Urine Bilirubin Neg (NEG) Urine Urobilinogen Dipstick 0.2 mg/dL (0.2 mg/dL) Urine Leukocyte Esterase Neg (NEG) Urine RBC 1-2 /HPF (0-2) Urine WBC 1-4 /HPF (0-4) Urine Squamous Epithelial Cells Occ /LPF Urine Bacteria Few /HPF (0-FEW) Urine Opiates Screen Neg (NEG) Urine Methadone Screen Neg (NEG) Urine Barbiturates Neg (NEG) Urine Phencyclidine Screen Neg (NEG) Urine Amphetamine/Methamphetamine Neg (NEG) Urine Benzodiazepines Screen Neg (NEG) Urine Cocaine Screen Neg (NEG) Urine Cannabinoids Screen Neg (NEG) Urine Ethyl Alcohol Neg (NEG) Prothrombin Time 10.2 SEC (9.4-11.4) Prothrombin Time INR 1.0 (0.9-1.1) PTT 23 SEC (23-33) Sodium Level 136 mmol/L (136-145) Potassium Level 3.1 mmol/L (3.5-5.1) L Chloride Level 91 mmol/L (98-107) L Carbon Dioxide Level 40 mmol/L (21-32) H Anion Gap 5 (6-14) L Blood Urea Nitrogen 24 mg/dL (7-20) H Creatinine 1.3 mg/dL (0.6-1.0) H Estimated GFR (Cockcroft-Gault) 41.4 Glucose Level 364 mg/dL (70-99) H Calcium Level 10.0 mg/dL (8.5-10.1) Magnesium Level 1.5 mg/dL (1.8-2.4) L Iron Level 103 ug/dL (50-170) Total Iron Binding Capacity 474 ug/dL (250-450) H Iron Saturation 22 % (15-34) Total Bilirubin 0.2 mg/dL (0.2-1.0) Direct Bilirubin < 0.1 mg/dL (0.0-0.2) Aspartate Amino Transferase (AST) 13 U/L (15-37) L Alanine Aminotransferase (ALT) 17 U/L (14-59) Alkaline Phosphatase 147 U/L (46-116) H Ammonia 12 mcmol/L (11-34) Creatine Kinase 134 U/L (26-192) Creatine Kinase MB (Mass) 1.3 ng/mL (0.0-3.6) Creatine Kinase MB Relative Index 1.0 % (0-4) Troponin I Quantitative < 0.017 ng/mL (0-0.055) YE-Wwo-A-Type Natriuretic Peptide 104 pg/mL (0-124) Total Protein 9.1 g/dL (6.4-8.2) H Albumin 3.2 g/dL (3.4-5.0) L Triglycerides Level 264 mg/dL (0-150) H Cholesterol Level 267 mg/dL (0-200) H LDL Cholesterol, Calculated 167 mg/dL (0-100) H VLDL Cholesterol, Calculated 52 mg/dL (0-40) H Non-HDL Cholesterol Calculated 219 mg/dL (0-129) H HDL Cholesterol 48 mg/dL (40-60) Cholesterol/HDL Ratio 5.0 Vitamin B12 Level 473 pg/mL (247-911) 25-Hydroxy Vitamin D Total 22.7 ng/mL (30-100) L Thyroid Stimulating Hormone (TSH) 3.787 uIU/mL (0.358-3.740) Valproic Acid Level 40 mcg/mL (50-100) L Valproic Acid Last Dose Date 10/09/2017 Valproic Acid Last Dose Time 0800 Current Medications: Meds: Current Medications Sodium Chloride 1,000 ml @ 1,000 mls/hr 1X ONCE IV Last administered on at 00:40; Start 10/06/17 at 22:30; Stop 10/06/17 at 23:29; Status DC Ziprasidone (Geodon Im) 20 mg 1X ONCE IM Last administered on 10/07/17at 00:06 ; Start 10/06/17 at 22:30; Stop 10/06/17 at 22:31; Status DC Diphenhydramine HCl (Benadryl) 50 mg 1X ONCE IV ; Start 10/06/17 at 22:30; Stop 10/06/17 at 23:08; Status DC Lorazepam (Ativan) 2 mg 1X ONCE IV ; Start 10/06/17 at 22:30; Stop 10/06/17 at 23:08; Status DC Diphenhydramine HCl (Benadryl) 50 mg 1X ONCE IM Last administered on at 23:09; Start 10/06/17 at 23:15; Stop 10/06/17 at 23:16; Status DC Lorazepam (Ativan) 2 mg 1X ONCE IM Last administered on 10/06/17at 23:09; Start 10/06/17 at 23:15; Stop 10/06/17 at 23:16; Status DC Ziprasidone (Geodon Im) 20 mg 1X ONCE IM ; Start 10/07/17 at 00:00; Stop at 00:01; Status DC Lorazepam (Ativan) 2 mg 1X ONCE IM Last administered on 10/07/17at 00:06; Start 10/07/17 at 00:00; Stop 10/07/17 at 00:01; Status DC Ceftriaxone Sodium (Rocephin Im) 1 gm 1X ONCE IM Last administered on at 00:40; Start 10/07/17 at 00:30; Stop 10/07/17 at 00:31; Status DC Magnesium Hydroxide (Milk Of Magnesia) 2,400 mg 1X ONCE PO Last administered on 10/07/17at 02:27; Start 10/07/17 at 02:15; Stop 10/07/17 at 02:16; Status DC Potassium Chloride (Klor-Con) 40 meq 1X ONCE PO Last administered on at 02:06; Start 10/07/17 at 02:15; Stop 10/07/17 at 02:16; Status DC Cephalexin HCl (Keflex) 500 mg TID PO Last administered on 10/07/17at 19:29; Start 10/07/17 at 09:00 Acetaminophen (Tylenol) 650 mg PRN Q6HRS PRN PO PAIN / TEMP; Start 10/07/17 at 03:45 Multi-Ingredient Ointment (Analgesic [place]) 1 guanaco PRN QID PRN TP MUSCLE PAIN; Start 10/07/17 at 03:45 Al Hydroxide/Mg Hydroxide (Mylanta Plus Xs) 15 ml PRN AFTMEALHC PRN PO DYSPEPSIA; Start 10/07/17 at 03:45 Magnesium Hydroxide (Milk Of Magnesia) 2,400 mg PRN QHS PRN PO CONSTIPATION; Start 10/07/17 at 03:45 Vitamin D (Vitamin D3) 50,000 unit QTH@0900 PO ; Start 10/10/17 at 09:00 Multi-Ingredient Ointment (Analgesic [place]) 1 guanaco PRN QID PRN TP MUSCLE PAIN; Start 10/07/17 at 08:00; Status UNV Potassium Chloride (Klor-Con) 40 meq BIDWMEALS PO Last administered on at 18:01; Start 10/07/17 at 08:00 Theophylline (Theodur) 200 mg BID PO ; Start 10/07/17 at 09:00; Stop 10/07/17 at 09:00; Status DC Amantadine HCl (Symmetrel) 100 mg BID PO Last administered on 10/07/17at 19:33; Start 10/07/17 at 09:00 Buspirone HCl (Buspar) 5 mg QID PO Last administered on 10/07/17 19:29; Start 10/07/17 at 09:00 Clonazepam (KlonoPIN) 1 mg TID PO Last administered on 10/07/17 19:33; Start 10/07/17 at 09:00 Diltiazem HCl (Cardizem 24hr Cd) 120 mg DAILY PO Last administered on at 09:30; Start 10/07/17 at 09:00 Divalproex Sodium (Depakote Sprinkles) 750 mg BID PO Last administered on 19:29; Start 10/07/17 at 09:00 Furosemide (Lasix) 80 mg [id number] PO Last administered on 10/07/17at 15:06; Start 10/07/17 at 09:00 Non-Formulary Medication (Haloperidol Decanoate (Haldol Decanoate 100)) 450 mg [id number] IM ; Start 10/07/17 at 08:00; Stop 10/07/17 at 08:10; Status DC Non-Formulary Medication (Mag Hydrox/ Aluminum Hyd/ Simeth (Maalox Advanced Suspension)) 15 ml PRN AFTMEALHC PRN PO DYSPEPSIA; Start 10/07/17 at 08:00; Status UNV Non-Formulary Medication (Magnesium Hydroxide (Milk Of Magnesia)) 2,400 mg PRN QHS PRN PO CONSTIPATION; Start 10/07/17 at 08:00; Status UNV Magnesium Oxide (Magnesium Oxide) 400 mg BID PO Last administered on 10/07/17 19:29; Start 10/07/17 at 09:00 Metformin HCl (Glucophage) 500 mg [id number] PO Last administered on 10/07/17 09:30; Start 10/07/17 at 08:00 Metolazone (Zaroxolyn) 5 mg DAILY PO Last administered on 10/07/17 09:31; Start 10/07/17 at 09:00 Mirtazapine (Remeron) 15 mg QHS PO Last administered on 10/07/17 19:33; Start 10/07/17 at 21:00 Pioglitazone HCl (Actos) 15 mg DAILY PO Last administered on 10/07/17 09:28; Start 10/07/17 at 09:00 Haloperidol Decanoate (Haldol Decanoate Im Extended Release) 450 mg [id number] IM ; Start 10/18/17 at 08:00 Theophylline (Theophylline Extended Release) 200 mg BID PO Last administered on 10/07/17 19:33; Start 10/07/17 at 09:00 Lactobacillus Rhamnosus (Culturelle) 1 cap BID PO Last administered on 19:33; Start 10/07/17 at 21:00 Active Scripts Active Reported Novolog Flexpen (Insulin Aspart) 100 Unit/1 Ml Insuln.pen 8 Unit SQ TIDBFRMEAL Theophylline Anhydrous 200 Mg Tab.er.12h 200 Mg PO BID Metolazone 5 Mg Tablet 5 Mg PO DAILY Metformin Hcl 500 Mg Tablet 500 Mg PO BIDWMEALS Metformin Hcl 500 Mg Tablet 500 Mg PO DAILY Geodon (Ziprasidone Mesylate) 20 Mg Vial 20 Mg IM DAILY Cardizem Tablet (Diltiazem Hcl) 120 Mg Tablet 120 Mg PO DAILY Amantadine (Amantadine Hcl) 100 Mg Tablet 100 Mg PO BID Actos (Pioglitazone Hcl) 15 Mg Tablet 15 Mg PO DAILY Buspirone Hcl 5 Mg Tablet 5 Mg PO QID Mirtazapine 15 Mg Tablet 15 Mg PO QHS Haldol Decanoate 100 (Haloperidol Decanoate) 100 Mg/1 Ml Ampul 450 Mg IM [id number] Depakote Sprinkle (Divalproex Sodium) 125 Mg Cap.sprink 750 Mg PO BID Klor-Con M20 (Potassium Chloride) 20 Meq Tab.er.prt 40 Meq PO BIDWMEALS Analgesic [place] (Methyl Salicylate/Menthol) 28 Gm Oint...g. 1 Guanaco TP PRN QID PRN Magnesium Oxide 400 Mg Tablet 400 Mg PO BID Milk Of Magnesia (Magnesium Hydroxide) 2,400 Mg/10 Ml Oral.susp 2,400 Mg PO PRN QHS PRN Maalox Advanced Suspension (Mag Hydrox/Aluminum Hyd/Simeth) 355 Ml Oral.susp 15 Ml PO PRN AFTMEALHC PRN D3-50 (Cholecalciferol (Vitamin D3)) 50,000 Unit Capsule 50,000 Unit PO QTH Levemir Flextouch (Insulin Detemir) 100 Unit/1 Ml Insuln.pen 55 Unit SQ QHS Clonazepam 1 Mg Tablet 1 Mg PO TID Furosemide 40 Mg Tablet 80 Mg PO [id number] Hold for SBP less than 100. After held dose, reassess in 2 hours. If SBP is above threshold, administer dose as ordered. If SBP is below threshold, contact provider for additional instructions. I have reviewed the current psychotropics carefully including drug interactions. Risk benefit ratio favors no change other than as noted in my dictated progress note. Diagnosis: Problems: (1) Depression (2) Schizoaffective disorder (3) Anxiety disorder (4) Impulse control disorder (5) Schizoaffective disorder, chronic condition with acute exacerbation (6) Mental status change KALIN STARKS MD October 07, 2017 20:59
[2017-10-07 21:12] LABS: THYROXINE 7.4 ug/dL (4.5-12.0)
[2017-10-08 00:08] LABS: HEMOGLOBIN A1C 10.4 % (4.8-5.6)
--- NOTE | 2017-10-08 03:48 | CONS ---
DATE OF CONSULTATION: 10/07/2017 REASON FOR CONSULTATION: Medical management. HISTORY OF PRESENT ILLNESS: The patient is a 62-year-old -[place] female patient, resident at [facility], who was admitted on account of increasing yelling, cursing, combative, argumentative, angry, difficult to redirect, all this in a background of schizophrenia with acute psychosis and she is here for inpatient psychiatric stabilization. PAST MEDICAL HISTORY: Significant for type 2 diabetes, chronic respiratory failure, morbid obesity, obstructive sleep apnea, hypoxia, anemia, dysphagia. She is also known to have B12 deficiency, tremors and previous history of cellulitis. PAST PSYCHIATRIC HISTORY: Significant for schizophrenia and dementia, behavioral disorder, psychosis and bipolar disorder. PAST SURGICAL HISTORY: Unremarkable. FAMILY HISTORY: Noncontributory. SOCIAL HISTORY: She is a [facility] resident. She does not smoke, drink alcohol or use any recreational drugs. MEDICATIONS: She is currently on following medications: Diltiazem 120 mg daily, analgesic balm one application 4 times a day, clonazepam 1 mg 3 times a day, divalproex sodium 750 mg twice a day, mirtazapine 15 mg at bedtime, haloperidol decanoate 100 mg/1 mL intramuscular, she takes 450 mg everyday, she is on ziprasidone 20 mg intramuscular daily. She is on buspirone 5 mg 4 times a day, amantadine 100 mg twice a day, potassium chloride 20 mEq twice a day, furosemide 80 mg twice a day, metolazone 5 mg once a day, Maalox 15 mL after meals, magnesium oxide 400 mg twice a day, milk of magnesia 30 mL p.o. daily p.r.n. for constipation. She is on metformin 500 mg daily and metformin b.i.d. with meals. She is on NovoLog insulin 8 units before meals and Levemir insulin 55 units at bedtime. She is also on Actos 15 mg daily, theophylline anhydrous 200 mg twice a day, cholecalciferol 50,000 international unit once every . PHYSICAL EXAMINATION: GENERAL: On examining her, she looked well and was clearly in no apparent respiratory distress. She showed no pallor, jaundice, cyanosis, or thyromegaly. No jugular venous distension. No lower limb edema. VITAL SIGNS: Her heart rate was 77, blood pressure was 108/57, temperature was 98.2, respiratory rate 20 and oxygen saturation was 100%. HEENT: Showed normocephalic, atraumatic. NECK: Supple. HEART: Showed normal first and second heart sounds. No gallop, rub or murmur. CHEST: Clear to auscultation. No crepitation or rhonchi. ABDOMEN: Distended, soft, nontender. No guarding or rigidity. No organomegaly. All hernial orifice intact. Bowel sounds normal. NEUROLOGIC: She is awake, alert, responding appropriately. All cranial nerves intact. She moves upper extremities to much good extent than lower extremities. She is mostly bedbound, chair bound. LABORATORY DATA: Her lab work this morning showed a white cell count of 5900, hemoglobin 13.9, hematocrit 43.9, MCV 85 and platelet count of 222,000. Her chemistry showed a serum sodium 136, potassium 3.1, chloride 91, bicarbonate 40, anion gap of 5, BUN 24, creatinine 1.3. Estimated GFR was 41 mL per minute. Her glucose was 364. Calcium was 10. Magnesium was 1.5. Her total bilirubin, AST, ALT are normal. Alkaline phosphatase slightly elevated. Ammonia was normal at 12. Her total protein was 6.1. Albumin was 3.2. Her prothrombin time, INR and aPTT are normal. Urinalysis was essentially unremarkable and urine toxicology screen was negative. Her chest x-ray was minimal left basilar linear atelectasis or scarring and did a CT scan of the head showed that there is a prominence to the ventricles and sulci, moderate low attenuation throughout the white matter. The patient was limited to this exam. There is a midline shift, mild subcutaneous induration of the fatty frontal area. No definite hemorrhage. IMPRESSION: So, all in all, she seemed to have multiple medical problems including chronic obstructive pulmonary disease. She has morbid obesity, obstructive sleep apnea, type 2 diabetes mellitus, hypertension, hyperlipidemia, chronic kidney disease. She has definitely hypokalemia. She is on Lasix and metolazone. PLAN: My plan is to increase her potassium to 40 mEq 3 times a day and follow electrolytes and kidney function. She has bilateral what seems to be lymphedema. I am not sure that giving her more Lasix can make any difference to that. Thank you, Dr. Feliz for allowing me to participate in the care of this patient. NICHOLAS AGARWAL MD DR: Toño JOB#: [id number] / [id number]
[2017-10-08 06:32] VITALS: BP 146/72
[2017-10-08 08:13] LABS: BASO # 0.1 x10^3/uL (0.0-0.2); BASO % 1 % (0-3); EOS # 0.1 x10^3/uL (0.0-0.7); EOS % 2 % (0-3); HEMATOCRIT 41.7 % (36.0-47.0); HEMOGLOBIN 13.5 g/dL (12.0-15.5); LYMPH # 1.6 x10^3/uL (1.0-4.8); LYMPH % 26 % (24-48); MEAN CORPUSCULAR HEMOGLOBIN 27 pg (25-35); MEAN CORPUSCULAR HGB CONC 32 g/dL (31-37); MEAN CORPUSCULAR VOLUME 83 fL (79-100); MONO # 0.5 x10^3/uL (0.0-1.1); MONO % 9 % (0-9); NEUT # 3.8 x10^3uL (1.8-7.7); NEUT % 62 % (31-73); PLATELET COUNT 199 x10^3/uL (140-400); RED CELL DISTRIBUTION WIDTH 16.2 % (11.5-14.5); WHITE BLOOD COUNT 6.1 x10^3/uL (4.0-11.0)
[2017-10-08 08:18] LABS: CALCIUM 9.6 mg/dL (8.5-10.1); CREATININE 1.1 mg/dL (0.6-1.0); GFR 50.2; POTASSIUM 3.5 mmol/L (3.5-5.1)
[2017-10-08] MEDS ORDERED: metOLazone 5 MG TABLET ONE (09:00)
[2017-10-08] MEDS ORDERED: FUROSEMIDE 40 MG TABLET ONE (09:00)
[2017-10-08] MEDS ORDERED: DIVALPROEX 125 MG CAP.SPRINK PO ONE (09:00)
[2017-10-08] MEDS ORDERED: MAGNESIUM OXIDE 400 MG TABLET ONE (09:00)
[2017-10-08] MEDS ORDERED: clonazePAM 1 MG TABLET ONE (09:00)
[2017-10-08] MEDS: FUROSEMIDE 40 MG TABLET PO SCH ×2 (10:18→13:53)
[2017-10-08] MEDS: POTASSIUM CHLORIDE 20 MEQ TABLET.ER. PO SCH ×3 (10:18→17:41)
[2017-10-08] MEDS: PIOGLITAZONE 15 MG TABLET. PO SCH (10:18)
[2017-10-08] MEDS: DIVALPROEX 125 MG CAP.SPRINK PO SCH ×2 (10:18→21:55)
[2017-10-08] MEDS: busPIRone 5 MG TABLET. PO SCH ×4 (10:18→21:57)
[2017-10-08] MEDS: metFORMIN 500 MG TABLET PO SCH (10:19)
[2017-10-08] MEDS: MAGNESIUM OXIDE 400 MG TABLET PO SCH ×2 (10:19→21:56)
[2017-10-08] MEDS: CEPHALEXIN 250 MG CAPSULE PO SCH ×3 (10:19→21:55)
[2017-10-08] MEDS: LACTOBACILLUS RHAMNOSUS GG 1 CAPSULE. PO SCH ×2 (10:19→21:56)
[2017-10-08] MEDS: clonazePAM 1 MG TABLET PO SCH ×3 (10:20→21:56)
[2017-10-08] MEDS: AMANTADINE HCL 100 MG CAPSULE PO SCH ×2 (10:21→21:57)
[2017-10-08] MEDS: THEOPHYLLINE ANHYDROUS 400 MG TABLET.ER. PO SCH ×2 (10:22→21:59)
[2017-10-08] MEDS: metOLazone 5 MG TABLET PO SCH (10:22)
[2017-10-08 16:41] VITALS: BP 123/70
[2017-10-08] MEDS ORDERED: DEXTROSE 50% 25 GM / 50ML DISP.SYRIN. IV PRN (19:30)
--- NOTE | 2017-10-08 20:27 | PDOC ---
Exam Note: Napoleon Note: Please also refer to the separate dictated note~for this date of service dictated separately.~Patient seen individually. Discussed the patient with Nursing staff reviewed the chart.~Reviewed interim history and current functioning. Reviewed vital signs,~Labs/ Radiology~and current medications noted below. Continue current treatment with the changes noted in the dictated addendum note Assessment: Vital Signs: Vital Signs Date Time Temp Pulse Resp B/P (MAP) Pulse Ox O2 Delivery O2 Flow Rate FiO2 10/08/17 16:41 97.1 95 20 123/70 (87) 91 10/07/17 04:03 Room Air 10/07/17 02:08 97.0 I&O Intake and Output 10/08/17 07:00 Intake Total 930 ml Balance 930 ml Intake Oral 930 ml # Bowel Movements 1 Labs: Laboratory Tests Test 10/08/17 07:50 10/08/17 11:18 10/08/17 16:30 10/08/17 19:36 White Blood Count 6.1 x10^3/uL (4.0-11.0) Red Blood Count 5.00 x10^6/uL (3.50-5.40) Hemoglobin 13.5 g/dL (12.0-15.5) Hematocrit 41.7 % (36.0-47.0) Mean Corpuscular Volume 83 fL (79-100) Mean Corpuscular Hemoglobin 27 pg (25-35) Mean Corpuscular Hemoglobin Concent 32 g/dL (31-37) Red Cell Distribution Width 16.2 % (11.5-14.5) H Platelet Count 199 x10^3/uL (140-400) Neutrophils (%) (Auto) 62 % (31-73) Lymphocytes (%) (Auto) 26 % (24-48) Monocytes (%) (Auto) 9 % (0-9) Eosinophils (%) (Auto) 2 % (0-3) Basophils (%) (Auto) 1 % (0-3) Neutrophils # (Auto) 3.8 x10^3uL (1.8-7.7) Lymphocytes # (Auto) 1.6 x10^3/uL (1.0-4.8) Monocytes # (Auto) 0.5 x10^3/uL (0.0-1.1) Eosinophils # (Auto) 0.1 x10^3/uL (0.0-0.7) Basophils # (Auto) 0.1 x10^3/uL (0.0-0.2) Sodium Level 133 mmol/L (136-145) L Potassium Level 3.5 mmol/L (3.5-5.1) Chloride Level 89 mmol/L (98-107) L Carbon Dioxide Level 37 mmol/L (21-32) H Anion Gap 7 (6-14) Blood Urea Nitrogen 21 mg/dL (7-20) H Creatinine 1.1 mg/dL (0.6-1.0) H Estimated GFR (Cockcroft-Gault) 50.2 Glucose Level 298 mg/dL (70-99) H Calcium Level 9.6 mg/dL (8.5-10.1) Glucose (Fingerstick) 408 mg/dL (70-99) H 326 mg/dL (70-99) H 371 mg/dL (70-99) H Current Medications: Meds: Current Medications Sodium Chloride 1,000 ml @ 1,000 mls/hr 1X ONCE IV Last administered on at 00:40; Start 10/06/17 at 22:30; Stop 10/06/17 at 23:29; Status DC Ziprasidone (Geodon Im) 20 mg 1X ONCE IM Last administered on 10/07/17at 00:06 ; Start 10/06/17 at 22:30; Stop 10/06/17 at 22:31; Status DC Diphenhydramine HCl (Benadryl) 50 mg 1X ONCE IV ; Start 10/06/17 at 22:30; Stop 10/06/17 at 23:08; Status DC Lorazepam (Ativan) 2 mg 1X ONCE IV ; Start 10/06/17 at 22:30; Stop 10/06/17 at 23:08; Status DC Diphenhydramine HCl (Benadryl) 50 mg 1X ONCE IM Last administered on at 23:09; Start 10/06/17 at 23:15; Stop 10/06/17 at 23:16; Status DC Lorazepam (Ativan) 2 mg 1X ONCE IM Last administered on 10/06/17at 23:09; Start 10/06/17 at 23:15; Stop 10/06/17 at 23:16; Status DC Ziprasidone (Geodon Im) 20 mg 1X ONCE IM ; Start 10/07/17 at 00:00; Stop at 00:01; Status DC Lorazepam (Ativan) 2 mg 1X ONCE IM Last administered on 10/07/17at 00:06; Start 10/07/17 at 00:00; Stop 10/07/17 at 00:01; Status DC Ceftriaxone Sodium (Rocephin Im) 1 gm 1X ONCE IM Last administered on at 00:40; Start 10/07/17 at 00:30; Stop 10/07/17 at 00:31; Status DC Magnesium Hydroxide (Milk Of Magnesia) 2,400 mg 1X ONCE PO Last administered on 10/07/17at 02:27; Start 10/07/17 at 02:15; Stop 10/07/17 at 02:16; Status DC Potassium Chloride (Klor-Con) 40 meq 1X ONCE PO Last administered on at 02:06; Start 10/07/17 at 02:15; Stop 10/07/17 at 02:16; Status DC Cephalexin HCl (Keflex) 500 mg TID PO Last administered on 10/08/17at 13:52; Start 10/07/17 at 09:00 Acetaminophen (Tylenol) 650 mg PRN Q6HRS PRN PO PAIN / TEMP; Start 10/07/17 at 03:45 Multi-Ingredient Ointment (Analgesic Eakly) 1 guanaco PRN QID PRN TP MUSCLE PAIN; Start 10/07/17 at 03:45 Al Hydroxide/Mg Hydroxide (Mylanta Plus Xs) 15 ml PRN AFTMEALHC PRN PO DYSPEPSIA; Start 10/07/17 at 03:45 Magnesium Hydroxide (Milk Of Magnesia) 2,400 mg PRN QHS PRN PO CONSTIPATION; Start 10/07/17 at 03:45 Vitamin D (Vitamin D3) 50,000 unit QTH@0900 PO ; Start 10/10/17 at 09:00 Multi-Ingredient Ointment (Analgesic Eakly) 1 guanaco PRN QID PRN TP MUSCLE PAIN; Start 10/07/17 at 08:00; Status UNV Potassium Chloride (Klor-Con) 40 meq BIDWMEALS PO Last administered on at 17:41; Start 10/07/17 at 08:00 Theophylline (Theodur) 200 mg BID PO ; Start 10/07/17 at 09:00; Stop 10/07/17 at 09:00; Status DC Amantadine HCl (Symmetrel) 100 mg BID PO Last administered on 10/08/17at 10:21; Start 10/07/17 at 09:00 Buspirone HCl (Buspar) 5 mg QID PO Last administered on 10/08/17at 17:41; Start 10/07/17 at 09:00 Clonazepam (KlonoPIN) 1 mg TID PO Last administered on 10/08/17 13:52; Start 10/07/17 at 09:00 Diltiazem HCl (Cardizem 24hr Cd) 120 mg DAILY PO Last administered on 10:19; Start 10/07/17 at 09:00 Divalproex Sodium (Depakote Sprinkles) 750 mg BID PO Last administered on 10:18; Start 10/07/17 at 09:00; Stop 10/08/17 at 18:28; Status DC Furosemide (Lasix) 80 mg [id number] PO Last administered on 10/08/17at 13:53; Start 10/07/17 at 09:00 Non-Formulary Medication (Haloperidol Decanoate (Haldol Decanoate 100)) 450 mg [id number] IM ; Start 10/07/17 at 08:00; Stop 10/07/17 at 08:10; Status DC Non-Formulary Medication (Mag Hydrox/ Aluminum Hyd/ Simeth (Maalox Advanced Suspension)) 15 ml PRN AFTMEALHC PRN PO DYSPEPSIA; Start 10/07/17 at 08:00; Status UNV Non-Formulary Medication (Magnesium Hydroxide (Milk Of Magnesia)) 2,400 mg PRN QHS PRN PO CONSTIPATION; Start 10/07/17 at 08:00; Status UNV Magnesium Oxide (Magnesium Oxide) 400 mg BID PO Last administered on 10/08/17at 10:19; Start 10/07/17 at 09:00 Metformin HCl (Glucophage) 500 mg DAILYWBKFT PO Last administered on 10/08/17at 10:19; Start 10/07/17 at 08:00; Stop 10/08/17 at 19:23; Status DC Metolazone (Zaroxolyn) 5 mg DAILY PO Last administered on 10/08/17at 10:22; Start 10/07/17 at 09:00 Mirtazapine (Remeron) 15 mg QHS PO Last administered on 10/07/17at 19:33; Start 10/07/17 at 21:00 Pioglitazone HCl (Actos) 15 mg DAILY PO Last administered on 10/08/17at 10:18; Start 10/07/17 at 09:00 Haloperidol Decanoate (Haldol Decanoate Im Extended Release) 450 mg Q24D IM ; Start 10/18/17 at 08:00 Theophylline (Theophylline Extended Release) 200 mg BID PO Last administered on 10/08/17at 10:22; Start 10/07/17 at 09:00 Lactobacillus Rhamnosus (Culturelle) 1 cap BID PO Last administered on at 10:19; Start 10/07/17 at 21:00 Clonazepam (KlonoPIN) 1 mg STK-MED ONCE .ROUTE ; Start 10/07/17 at 09:00; Stop 10/08/17 at 11:51; Status DC Clonazepam (KlonoPIN) 1 mg STK-MED ONCE .ROUTE ; Start 10/07/17 at 09:00; Stop 10/08/17 at 11:51; Status DC Clonazepam (KlonoPIN) 1 mg STK-MED ONCE .ROUTE ; Start 10/07/17 at 09:00; Stop 10/08/17 at 11:51; Status DC Diltiazem HCl (Cardizem 24hr Cd) 120 mg STK-MED ONCE PO ; Start 10/07/17 at 09: 00; Stop 10/08/17 at 11:51; Status DC Divalproex Sodium (Depakote Sprinkles) 750 mg STK-MED ONCE PO ; Start 10/07/17 at 09:00; Stop 10/08/17 at 11:51; Status DC Divalproex Sodium (Depakote Sprinkles) 750 mg STK-MED ONCE PO ; Start 10/07/17 at 09:00; Stop 10/08/17 at 11:51; Status DC Furosemide (Lasix) 80 mg STK-MED ONCE .ROUTE ; Start 5/14/18 at 09:00; Stop at 11:51; Status DC Furosemide (Lasix) 80 mg STK-MED ONCE .ROUTE ; Start 10/07/17 at 09:00; Stop at 11:51; Status DC Magnesium Oxide (Magnesium Oxide) 400 mg STK-MED ONCE .ROUTE ; Start 10/07/17 at 09:00; Stop 10/08/17 at 11:51; Status DC Metolazone (Zaroxolyn) 5 mg STK-MED ONCE .ROUTE ; Start 10/07/17 at 09:00; Stop 10/08/17 at 11:51; Status DC Mirtazapine (Remeron) 15 mg STK-MED ONCE .ROUTE ; Start 10/07/17 at 09:00; Stop 10/08/17 at 11:51; Status DC Clonazepam (KlonoPIN) 1 mg STK-MED ONCE .ROUTE ; Start 10/08/17 at 09:00; Stop 10/08/17 at 11:52; Status DC Diltiazem HCl (Cardizem 24hr Cd) 120 mg STK-MED ONCE PO ; Start 10/08/17 at 09: 00; Stop 10/08/17 at 11:52; Status DC Divalproex Sodium (Depakote Sprinkles) 750 mg STK-MED ONCE PO ; Start 10/08/17 at 09:00; Stop 10/08/17 at 11:52; Status DC Furosemide (Lasix) 80 mg STK-MED ONCE .ROUTE ; Start 10/08/17 at 09:00; Stop at 11:52; Status DC Magnesium Oxide (Magnesium Oxide) 400 mg STK-MED ONCE .ROUTE ; Start 10/08/17 at 09:00; Stop 10/08/17 at 11:52; Status DC Metolazone (Zaroxolyn) 5 mg STK-MED ONCE .ROUTE ; Start 10/08/17 at 09:00; Stop 10/08/17 at 11:52; Status DC Divalproex Sodium (Depakote Sprinkles) 1,000 mg BID PO ; Start 10/08/17 at 21:00 Metformin HCl (Glucophage) 500 mg BIDWMEALS PO ; Start 10/09/17 at 08:00 Insulin Human Lispro (HumaLOG) 0-9 UNITS TIDWMEALS SQ ; Start 10/09/17 at 08:00 Dextrose 12.5 gm PRN Q15MIN PRN IV SEE COMMENTS; Start 10/08/17 at 19:30 Active Scripts Active Reported Novolog Flexpen (Insulin Aspart) 100 Unit/1 Ml Insuln.pen 8 Unit SQ TIDBFRMEAL Theophylline Anhydrous 200 Mg Tab.er.12h 200 Mg PO BID Metolazone 5 Mg Tablet 5 Mg PO DAILY Metformin Hcl 500 Mg Tablet 500 Mg PO BIDWMEALS Metformin Hcl 500 Mg Tablet 500 Mg PO DAILY Geodon (Ziprasidone Mesylate) 20 Mg Vial 20 Mg IM DAILY Cardizem Tablet (Diltiazem Hcl) 120 Mg Tablet 120 Mg PO DAILY Amantadine (Amantadine Hcl) 100 Mg Tablet 100 Mg PO BID Actos (Pioglitazone Hcl) 15 Mg Tablet 15 Mg PO DAILY Buspirone Hcl 5 Mg Tablet 5 Mg PO QID Mirtazapine 15 Mg Tablet 15 Mg PO QHS Haldol Decanoate 100 (Haloperidol Decanoate) 100 Mg/1 Ml Ampul 450 Mg IM [id number] Depakote Sprinkle (Divalproex Sodium) 125 Mg Cap.sprink 750 Mg PO BID Klor-Con M20 (Potassium Chloride) 20 Meq Tab.er.prt 40 Meq PO BIDWMEALS Analgesic Eakly (Methyl Salicylate/Menthol) 28 Gm Oint...g. 1 Guanaco TP PRN QID PRN Magnesium Oxide 400 Mg Tablet 400 Mg PO BID Milk Of Magnesia (Magnesium Hydroxide) 2,400 Mg/10 Ml Oral.susp 2,400 Mg PO PRN QHS PRN Maalox Advanced Suspension (Mag Hydrox/Aluminum Hyd/Simeth) 355 Ml Oral.susp 15 Ml PO PRN AFTMEALHC PRN D3-50 (Cholecalciferol (Vitamin D3)) 50,000 Unit Capsule 50,000 Unit PO QTH Levemir Flextouch (Insulin Detemir) 100 Unit/1 Ml Insuln.pen 55 Unit SQ QHS Clonazepam 1 Mg Tablet 1 Mg PO TID Furosemide 40 Mg Tablet 80 Mg PO [id number] Hold for SBP less than 100. After held dose, reassess in 2 hours. If SBP is above threshold, administer dose as ordered. If SBP is below threshold, contact provider for additional instructions. I have reviewed the current psychotropics carefully including drug interactions. Risk benefit ratio favors no change other than as noted in my dictated progress note. Diagnosis: Problems: (1) Depression (2) Schizoaffective disorder (3) Anxiety disorder (4) Impulse control disorder (5) Schizoaffective disorder, chronic condition with acute exacerbation (6) Mental status change KALIN STARKS MD October 08, 2017 20:27
[2017-10-08] MEDS: MIRTAZAPINE 15 MG TABLET PO SCH (21:56)
[2017-10-08] MEDS ORDERED: INSULIN GLARGINE 300 UNITS/3 ML INSULN.PEN. SQ ONE (22:00)
[2017-10-09 05:53] VITALS: BP 117/67
[2017-10-09] MEDS: DIVALPROEX 125 MG CAP.SPRINK PO SCH ×2 (10:01→21:11)
[2017-10-09] MEDS: LACTOBACILLUS RHAMNOSUS GG 1 CAPSULE. PO SCH ×2 (10:02→21:11)
[2017-10-09] MEDS: POTASSIUM CHLORIDE 20 MEQ TABLET.ER. PO SCH ×2 (10:02→15:49)
[2017-10-09] MEDS: busPIRone 5 MG TABLET. PO SCH ×4 (10:02→21:12)
[2017-10-09] MEDS: FUROSEMIDE 40 MG TABLET PO SCH ×2 (10:02→11:56)
[2017-10-09] MEDS: metFORMIN 500 MG TABLET PO SCH ×2 (10:05→15:48)
[2017-10-09] MEDS: metOLazone 5 MG TABLET PO SCH (10:05)
[2017-10-09] MEDS: clonazePAM 1 MG TABLET PO SCH ×3 (10:05→21:14)
[2017-10-09] MEDS: AMANTADINE HCL 100 MG CAPSULE PO SCH ×2 (10:06→21:14)
[2017-10-09] MEDS: MAGNESIUM OXIDE 400 MG TABLET PO SCH ×2 (10:07→21:12)
[2017-10-09] MEDS: INSULIN LISPRO 300 UNITS/3 ML INSULN.PEN. SQ SCH ×3 (10:22→17:51)
[2017-10-09] MEDS: CEPHALEXIN 250 MG CAPSULE PO SCH ×3 (10:24→21:12)
[2017-10-09] MEDS: PIOGLITAZONE 15 MG TABLET. PO SCH (10:25)
[2017-10-09] MEDS: THEOPHYLLINE ANHYDROUS 400 MG TABLET.ER. PO SCH ×2 (10:44→21:14)
[2017-10-09 18:32] VITALS: BP 129/81
[2017-10-09] MEDS: MIRTAZAPINE 15 MG TABLET PO SCH (21:12)
--- NOTE | 2017-10-09 22:23 | PDOC ---
Exam Note: Napoleon Note: Please also refer to the separate dictated note~for this date of service dictated separately.~Patient seen individually. Discussed the patient with Nursing staff reviewed the chart.~Reviewed interim history and current functioning. Reviewed vital signs,~Labs/ Radiology~and current medications noted below. Continue current treatment with the changes noted in the dictated addendum note Assessment: Vital Signs: Vital Signs Date Time Temp Pulse Resp B/P (MAP) Pulse Ox O2 Delivery O2 Flow Rate FiO2 10/09/17 18:32 97.6 97 18 129/81 (97) 95 10/07/17 04:03 Room Air 10/07/17 02:08 97.0 I&O Intake and Output 10/09/17 07:00 Intake Total 1040 ml Balance 1040 ml Intake Oral 1040 ml Labs: Laboratory Tests Test 10/09/17 07:12 10/09/17 11:50 10/09/17 17:08 10/09/17 19:07 Glucose (Fingerstick) 280 mg/dL (70-99) H 292 mg/dL (70-99) H 327 mg/dL (70-99) H 238 mg/dL (70-99) H Current Medications: Meds: Current Medications Sodium Chloride 1,000 ml @ 1,000 mls/hr 1X ONCE IV Last administered on at 00:40; Start 10/06/17 at 22:30; Stop 10/06/17 at 23:29; Status DC Ziprasidone (Geodon Im) 20 mg 1X ONCE IM Last administered on 10/07/17at 00:06 ; Start 10/06/17 at 22:30; Stop 10/06/17 at 22:31; Status DC Diphenhydramine HCl (Benadryl) 50 mg 1X ONCE IV ; Start 10/06/17 at 22:30; Stop 10/06/17 at 23:08; Status DC Lorazepam (Ativan) 2 mg 1X ONCE IV ; Start 10/06/17 at 22:30; Stop 10/06/17 at 23:08; Status DC Diphenhydramine HCl (Benadryl) 50 mg 1X ONCE IM Last administered on at 23:09; Start 10/06/17 at 23:15; Stop 10/06/17 at 23:16; Status DC Lorazepam (Ativan) 2 mg 1X ONCE IM Last administered on 10/06/17at 23:09; Start 10/06/17 at 23:15; Stop 10/06/17 at 23:16; Status DC Ziprasidone (Geodon Im) 20 mg 1X ONCE IM ; Start 10/07/17 at 00:00; Stop at 00:01; Status DC Lorazepam (Ativan) 2 mg 1X ONCE IM Last administered on 10/07/17at 00:06; Start 10/07/17 at 00:00; Stop 10/07/17 at 00:01; Status DC Ceftriaxone Sodium (Rocephin Im) 1 gm 1X ONCE IM Last administered on at 00:40; Start 10/07/17 at 00:30; Stop 10/07/17 at 00:31; Status DC Magnesium Hydroxide (Milk Of Magnesia) 2,400 mg 1X ONCE PO Last administered on 10/07/17at 02:27; Start 10/07/17 at 02:15; Stop 10/07/17 at 02:16; Status DC Potassium Chloride (Klor-Con) 40 meq 1X ONCE PO Last administered on at 02:06; Start 10/07/17 at 02:15; Stop 10/07/17 at 02:16; Status DC Cephalexin HCl (Keflex) 500 mg TID PO Last administered on 10/09/17at 21:12; Start 10/07/17 at 09:00 Acetaminophen (Tylenol) 650 mg PRN Q6HRS PRN PO PAIN / TEMP; Start 10/07/17 at 03:45 Multi-Ingredient Ointment (Analgesic [place]) 1 guanaco PRN QID PRN TP MUSCLE PAIN; Start 10/07/17 at 03:45 Al Hydroxide/Mg Hydroxide (Mylanta Plus Xs) 15 ml PRN AFTMEALHC PRN PO DYSPEPSIA; Start 10/07/17 at 03:45 Magnesium Hydroxide (Milk Of Magnesia) 2,400 mg PRN QHS PRN PO CONSTIPATION; Start 10/07/17 at 03:45 Vitamin D (Vitamin D3) 50,000 unit QTH@0900 PO ; Start 10/10/17 at 09:00 Multi-Ingredient Ointment (Analgesic [place]) 1 guanaco PRN QID PRN TP MUSCLE PAIN; Start 10/07/17 at 08:00; Status UNV Potassium Chloride (Klor-Con) 40 meq BIDWMEALS PO Last administered on at 15:49; Start 10/07/17 at 08:00 Theophylline (Theodur) 200 mg BID PO ; Start 10/07/17 at 09:00; Stop 10/07/17 at 09:00; Status DC Amantadine HCl (Symmetrel) 100 mg BID PO Last administered on 10/09/17at 21:14; Start 10/07/17 at 09:00 Buspirone HCl (Buspar) 5 mg QID PO Last administered on 10/09/17 21:12; Start 10/07/17 at 09:00 Clonazepam (KlonoPIN) 1 mg TID PO Last administered on 10/09/17at 21:14; Start 10/07/17 at 09:00 Diltiazem HCl (Cardizem 24hr Cd) 120 mg DAILY PO Last administered on at 10:02; Start 10/07/17 at 09:00 Divalproex Sodium (Depakote Sprinkles) 750 mg BID PO Last administered on at 10:18; Start 10/07/17 at 09:00; Stop 10/08/17 at 18:28; Status DC Furosemide (Lasix) 80 mg [id number] PO Last administered on 10/09/17at 10:02; Start 10/07/17 at 09:00 Non-Formulary Medication (Haloperidol Decanoate (Haldol Decanoate 100)) 450 mg [id number] IM ; Start 10/07/17 at 08:00; Stop 10/07/17 at 08:10; Status DC Non-Formulary Medication (Mag Hydrox/ Aluminum Hyd/ Simeth (Maalox Advanced Suspension)) 15 ml PRN AFTMEALHC PRN PO DYSPEPSIA; Start 10/07/17 at 08:00; Status UNV Non-Formulary Medication (Magnesium Hydroxide (Milk Of Magnesia)) 2,400 mg PRN QHS PRN PO CONSTIPATION; Start 10/07/17 at 08:00; Status UNV Magnesium Oxide (Magnesium Oxide) 400 mg BID PO Last administered on 10/09/17at 21:12; Start 10/07/17 at 09:00 Metformin HCl (Glucophage) 500 mg DAILYWBKFT PO Last administered on 10/08/17at 10:19; Start 10/07/17 at 08:00; Stop 10/08/17 at 19:23; Status DC Metolazone (Zaroxolyn) 5 mg DAILY PO Last administered on 10/09/17at 10:05; Start 10/07/17 at 09:00 Mirtazapine (Remeron) 15 mg QHS PO Last administered on 10/09/17at 21:12; Start 10/07/17 at 21:00 Pioglitazone HCl (Actos) 15 mg DAILY PO Last administered on 10/09/17at 10:25; Start 10/07/17 at 09:00 Haloperidol Decanoate (Haldol Decanoate Im Extended Release) 450 mg Q24D IM ; Start 10/18/17 at 08:00 Theophylline (Theophylline Extended Release) 200 mg BID PO Last administered on 10/09/17at 21:14; Start 10/07/17 at 09:00 Lactobacillus Rhamnosus (Culturelle) 1 cap BID PO Last administered on at 21:11; Start 10/07/17 at 21:00 Clonazepam (KlonoPIN) 1 mg STK-MED ONCE .ROUTE ; Start 10/07/17 at 09:00; Stop 10/08/17 at 11:51; Status DC Clonazepam (KlonoPIN) 1 mg STK-MED ONCE .ROUTE ; Start 10/07/17 at 09:00; Stop 10/08/17 at 11:51; Status DC Clonazepam (KlonoPIN) 1 mg STK-MED ONCE .ROUTE ; Start 10/07/17 at 09:00; Stop 10/08/17 at 11:51; Status DC Diltiazem HCl (Cardizem 24hr Cd) 120 mg STK-MED ONCE PO ; Start 10/07/17 at 09: 00; Stop 10/08/17 at 11:51; Status DC Divalproex Sodium (Depakote Sprinkles) 750 mg STK-MED ONCE PO ; Start 10/07/17 at 09:00; Stop 10/08/17 at 11:51; Status DC Divalproex Sodium (Depakote Sprinkles) 750 mg STK-MED ONCE PO ; Start 10/07/17 at 09:00; Stop 10/08/17 at 11:51; Status DC Furosemide (Lasix) 80 mg STK-MED ONCE .ROUTE ; Start 10/07/17 at 09:00; Stop at 11:51; Status DC Furosemide (Lasix) 80 mg STK-MED ONCE .ROUTE ; Start 10/07/17 at 09:00; Stop at 11:51; Status DC Magnesium Oxide (Magnesium Oxide) 400 mg STK-MED ONCE .ROUTE ; Start 10/07/17 at 09:00; Stop 10/08/17 at 11:51; Status DC Metolazone (Zaroxolyn) 5 mg STK-MED ONCE .ROUTE ; Start 10/07/17 at 09:00; Stop 10/08/17 at 11:51; Status DC Mirtazapine (Remeron) 15 mg STK-MED ONCE .ROUTE ; Start 10/07/17 at 09:00; Stop 10/08/17 at 11:51; Status DC Clonazepam (KlonoPIN) 1 mg STK-MED ONCE .ROUTE ; Start 10/08/17 at 09:00; Stop 10/08/17 at 11:52; Status DC Diltiazem HCl (Cardizem 24hr Cd) 120 mg STK-MED ONCE PO ; Start 10/08/17 at 09: 00; Stop 10/08/17 at 11:52; Status DC Divalproex Sodium (Depakote Sprinkles) 750 mg STK-MED ONCE PO ; Start 10/08/17 at 09:00; Stop 10/08/17 at 11:52; Status DC Furosemide (Lasix) 80 mg STK-MED ONCE .ROUTE ; Start 10/08/17 at 09:00; Stop at 11:52; Status DC Magnesium Oxide (Magnesium Oxide) 400 mg STK-MED ONCE .ROUTE ; Start 10/08/17 at 09:00; Stop 10/08/17 at 11:52; Status DC Metolazone (Zaroxolyn) 5 mg STK-MED ONCE .ROUTE ; Start 10/08/17 at 09:00; Stop 10/08/17 at 11:52; Status DC Divalproex Sodium (Depakote Sprinkles) 1,000 mg BID PO Last administered on at 21:11; Start 10/08/17 at 21:00 Metformin HCl (Glucophage) 500 mg BIDWMEALS PO Last administered on 10/09/17at 15:48; Start 10/09/17 at 08:00 Insulin Human Lispro (HumaLOG) 0-9 UNITS TIDWMEALS SQ Last administered on 10/09at 17:51; Start 10/09/17 at 08:00 Dextrose 12.5 gm PRN Q15MIN PRN IV SEE COMMENTS; Start 10/08/17 at 19:30 Insulin Glargine (Lantus) 8 units 1X ONCE SQ Last administered on 10/08/17at 22 :10; Start 10/08/17 at 22:00; Stop 10/08/17 at 22:01; Status DC Olanzapine (ZyPREXA ZYDIS) 2.5 mg PRN Q2HR PRN PO PSYCHOSIS; Start 10/09/17 at 18:45 Active Scripts Active Reported Novolog Flexpen (Insulin Aspart) 100 Unit/1 Ml Insuln.pen 8 Unit SQ TIDBFRMEAL Theophylline Anhydrous 200 Mg Tab.er.12h 200 Mg PO BID Metolazone 5 Mg Tablet 5 Mg PO DAILY Metformin Hcl 500 Mg Tablet 500 Mg PO BIDWMEALS Metformin Hcl 500 Mg Tablet 500 Mg PO DAILY Geodon (Ziprasidone Mesylate) 20 Mg Vial 20 Mg IM DAILY Cardizem Tablet (Diltiazem Hcl) 120 Mg Tablet 120 Mg PO DAILY Amantadine (Amantadine Hcl) 100 Mg Tablet 100 Mg PO BID Actos (Pioglitazone Hcl) 15 Mg Tablet 15 Mg PO DAILY Buspirone Hcl 5 Mg Tablet 5 Mg PO QID Mirtazapine 15 Mg Tablet 15 Mg PO QHS Haldol Decanoate 100 (Haloperidol Decanoate) 100 Mg/1 Ml Ampul 450 Mg IM [id number] Depakote Sprinkle (Divalproex Sodium) 125 Mg Cap.sprink 750 Mg PO BID Klor-Con M20 (Potassium Chloride) 20 Meq Tab.er.prt 40 Meq PO BIDWMEALS Analgesic [place] (Methyl Salicylate/Menthol) 28 Gm Oint...g. 1 [place] TP PRN QID PRN Magnesium Oxide 400 Mg Tablet 400 Mg PO BID Milk Of Magnesia (Magnesium Hydroxide) 2,400 Mg/10 Ml Oral.susp 2,400 Mg PO PRN QHS PRN Maalox Advanced Suspension (Mag Hydrox/Aluminum Hyd/Simeth) 355 Ml Oral.susp 15 Ml PO PRN AFTMEALHC PRN D3-50 (Cholecalciferol (Vitamin D3)) 50,000 Unit Capsule 50,000 Unit PO QTH Levemir Flextouch (Insulin Detemir) 100 Unit/1 Ml Insuln.pen 55 Unit SQ QHS Clonazepam 1 Mg Tablet 1 Mg PO TID Furosemide 40 Mg Tablet 80 Mg PO [id number] Hold for SBP less than 100. After held dose, reassess in 2 hours. If SBP is above threshold, administer dose as ordered. If SBP is below threshold, contact provider for additional instructions. I have reviewed the current psychotropics carefully including drug interactions. Risk benefit ratio favors no change other than as noted in my dictated progress note. Diagnosis: Problems: (1) Depression (2) Schizoaffective disorder (3) Anxiety disorder (4) Impulse control disorder (5) Schizoaffective disorder, chronic condition with acute exacerbation (6) Mental status change KALIN STARKS MD October 09, 2017 22:23
--- NOTE | 2017-10-10 03:21 | PN ---
DATE: 10/08/2017 This is a late entry for 10/08/2017 and covers elements not covered in my initial note of 10/08/2017. I met with the patient in the evening. The patient slept 4-1/4 hours. She is somewhat resistive to medications and nursing staff had to do her hair before she took her medications. REVIEW OF SYSTEMS: Ambulation impaired, in wheelchair. No CV, , pulmonary, eye, ENT system symptoms on review. MENTAL STATUS EXAM: Oriented to herself and situation. Speech has some latency, at times pressured. Abstraction fair, computation impaired, language function intact, attention span short. Mood and affect remain somewhat labile. LABORATORY DATA: Reviewed. IMPRESSION: Schizoaffective disorder, bipolar type, mixed with psychotic features; anxiety disorder, unspecified. Rest unchanged. PLAN: Valproic acid level subtherapeutic at 40 on 750 b.i.d., we will increase to 1 gram b.i.d. Check CBC, CMP, valproic acid level in 3 days. Adjust further as clinically indicated. Rest unchanged from initial note. MAN Mary STARKS MD DR: TRACIE/karli JOB#: [id number] / [id number]
[2017-10-10 06:16] VITALS: BP 105/50
[2017-10-10] MEDS: DIVALPROEX 125 MG CAP.SPRINK PO SCH ×3 (10:45→22:06)
[2017-10-10] MEDS: THEOPHYLLINE ANHYDROUS 400 MG TABLET.ER. PO SCH ×3 (10:45→22:08)
[2017-10-10] MEDS: AMANTADINE HCL 100 MG CAPSULE PO SCH ×2 (10:46→21:00)
[2017-10-10] MEDS: FUROSEMIDE 40 MG TABLET PO SCH ×2 (10:46→14:18)
[2017-10-10] MEDS: PIOGLITAZONE 15 MG TABLET. PO SCH (10:46)
[2017-10-10] MEDS: metFORMIN 500 MG TABLET PO SCH ×2 (10:47→16:47)
[2017-10-10] MEDS: POTASSIUM CHLORIDE 20 MEQ TABLET.ER. PO SCH ×2 (10:47→16:47)
[2017-10-10] MEDS: LACTOBACILLUS RHAMNOSUS GG 1 CAPSULE. PO SCH ×3 (10:47→22:07)
[2017-10-10] MEDS: MAGNESIUM OXIDE 400 MG TABLET PO SCH ×3 (10:48→22:06)
[2017-10-10] MEDS: CEPHALEXIN 250 MG CAPSULE PO SCH ×4 (10:48→22:06)
[2017-10-10] MEDS: metOLazone 5 MG TABLET PO SCH (10:48)
[2017-10-10] MEDS: busPIRone 5 MG TABLET. PO SCH ×5 (10:48→22:07)
[2017-10-10] MEDS: clonazePAM 1 MG TABLET PO SCH ×3 (10:49→21:00)
[2017-10-10] MEDS: INSULIN LISPRO 300 UNITS/3 ML INSULN.PEN. SQ SCH ×3 (10:51→17:28)
[2017-10-10] MEDS: CHOLECALCIFEROL (VITAMIN D3) 50,000 UNIT CAPSULE PO SCH (10:53)
[2017-10-10 16:57] VITALS: BP 123/82
--- NOTE | 2017-10-10 20:26 | PDOC ---
Exam Note: Napoleon Note: Please also refer to the separate dictated note~for this date of service dictated separately.~Patient seen individually. Discussed the patient with Nursing staff reviewed the chart.~Reviewed interim history and current functioning. Reviewed vital signs,~Labs/ Radiology~and current medications noted below. Continue current treatment with the changes noted in the dictated addendum note Assessment: Vital Signs: Vital Signs Date Time Temp Pulse Resp B/P (MAP) Pulse Ox O2 Delivery O2 Flow Rate FiO2 10/10/17 16:57 97.1 93 18 123/82 (96) 97 Room Air 10/07/17 02:08 97.0 I&O Intake and Output 10/10/17 07:00 Intake Total 840 ml Balance 840 ml Intake Oral 840 ml Labs: Laboratory Tests Test 10/10/17 07:28 10/10/17 11:52 10/10/17 16:45 10/10/17 19:13 Glucose (Fingerstick) 240 mg/dL (70-99) H 295 mg/dL (70-99) H 178 mg/dL (70-99) H 195 mg/dL (70-99) H Current Medications: Meds: Current Medications Sodium Chloride 1,000 ml @ 1,000 mls/hr 1X ONCE IV Last administered on at 00:40; Start 10/06/17 at 22:30; Stop 10/06/17 at 23:29; Status DC Ziprasidone (Geodon Im) 20 mg 1X ONCE IM Last administered on 10/07/17at 00:06 ; Start 10/06/17 at 22:30; Stop 10/06/17 at 22:31; Status DC Diphenhydramine HCl (Benadryl) 50 mg 1X ONCE IV ; Start 10/06/17 at 22:30; Stop 10/06/17 at 23:08; Status DC Lorazepam (Ativan) 2 mg 1X ONCE IV ; Start 10/06/17 at 22:30; Stop 10/06/17 at 23:08; Status DC Diphenhydramine HCl (Benadryl) 50 mg 1X ONCE IM Last administered on at 23:09; Start 10/06/17 at 23:15; Stop 10/06/17 at 23:16; Status DC Lorazepam (Ativan) 2 mg 1X ONCE IM Last administered on 10/06/17at 23:09; Start 10/06/17 at 23:15; Stop 10/06/17 at 23:16; Status DC Ziprasidone (Geodon Im) 20 mg 1X ONCE IM ; Start 10/07/17 at 00:00; Stop at 00:01; Status DC Lorazepam (Ativan) 2 mg 1X ONCE IM Last administered on 10/07/17at 00:06; Start 10/07/17 at 00:00; Stop 10/07/17 at 00:01; Status DC Ceftriaxone Sodium (Rocephin Im) 1 gm 1X ONCE IM Last administered on at 00:40; Start 10/07/17 at 00:30; Stop 10/07/17 at 00:31; Status DC Magnesium Hydroxide (Milk Of Magnesia) 2,400 mg 1X ONCE PO Last administered on 10/07/17at 02:27; Start 10/07/17 at 02:15; Stop 10/07/17 at 02:16; Status DC Potassium Chloride (Klor-Con) 40 meq 1X ONCE PO Last administered on at 02:06; Start 10/07/17 at 02:15; Stop 10/07/17 at 02:16; Status DC Cephalexin HCl (Keflex) 500 mg TID PO Last administered on 10/10/17at 14:18; Start 10/07/17 at 09:00 Acetaminophen (Tylenol) 650 mg PRN Q6HRS PRN PO PAIN / TEMP; Start 10/07/17 at 03:45 Multi-Ingredient Ointment (Analgesic [place]) 1 guanaco PRN QID PRN TP MUSCLE PAIN; Start 10/07/17 at 03:45 Al Hydroxide/Mg Hydroxide (Mylanta Plus Xs) 15 ml PRN AFTMEALHC PRN PO DYSPEPSIA; Start 10/07/17 at 03:45 Magnesium Hydroxide (Milk Of Magnesia) 2,400 mg PRN QHS PRN PO CONSTIPATION; Start 10/07/17 at 03:45 Vitamin D (Vitamin D3) 50,000 unit QTH@0900 PO Last administered on 10/10/17at 10:53; Start 10/10/17 at 09:00 Multi-Ingredient Ointment (Analgesic [place]) 1 guanaco PRN QID PRN TP MUSCLE PAIN; Start 10/07/17 at 08:00; Status UNV Potassium Chloride (Klor-Con) 40 meq BIDWMEALS PO Last administered on at 16:47; Start 10/07/17 at 08:00 Theophylline (Theodur) 200 mg BID PO ; Start 10/07/17 at 09:00; Stop 10/07/17 at 09:00; Status DC Amantadine HCl (Symmetrel) 100 mg BID PO Last administered on 10/10/17at 10:46; Start 10/07/17 at 09:00 Buspirone HCl (Buspar) 5 mg QID PO Last administered on 10/10/17at 16:47; Start 10/07/17 at 09:00 Clonazepam (KlonoPIN) 1 mg TID PO Last administered on 10/10/17at 14:18; Start 10/07/17 at 09:00 Diltiazem HCl (Cardizem 24hr Cd) 120 mg DAILY PO Last administered on at 10:48; Start 10/07/17 at 09:00 Divalproex Sodium (Depakote Sprinkles) 750 mg BID PO Last administered on at 10:18; Start 10/07/17 at 09:00; Stop 10/08/17 at 18:28; Status DC Furosemide (Lasix) 80 mg BID92 PO Last administered on 10/10/17at 14:18; Start 10/07/17 at 09:00 Non-Formulary Medication (Haloperidol Decanoate (Haldol Decanoate 100)) 450 mg [id number] IM ; Start 10/07/17 at 08:00; Stop 10/07/17 at 08:10; Status DC Non-Formulary Medication (Mag Hydrox/ Aluminum Hyd/ Simeth (Maalox Advanced Suspension)) 15 ml PRN AFTMEALHC PRN PO DYSPEPSIA; Start 10/07/17 at 08:00; Status UNV Non-Formulary Medication (Magnesium Hydroxide (Milk Of Magnesia)) 2,400 mg PRN QHS PRN PO CONSTIPATION; Start 10/07/17 at 08:00; Status UNV Magnesium Oxide (Magnesium Oxide) 400 mg BID PO Last administered on 10/10/17at 10:48; Start 10/07/17 at 09:00 Metformin HCl (Glucophage) 500 mg DAILYWBKFT PO Last administered on 10/08/17at 10:19; Start 10/07/17 at 08:00; Stop 10/08/17 at 19:23; Status DC Metolazone (Zaroxolyn) 5 mg DAILY PO Last administered on 10/10/17at 10:48; Start 10/07/17 at 09:00 Mirtazapine (Remeron) 15 mg QHS PO Last administered on 10/09/17at 21:12; Start 10/07/17 at 21:00 Pioglitazone HCl (Actos) 15 mg DAILY PO Last administered on 10/10/17at 10:46; Start 10/07/17 at 09:00 Haloperidol Decanoate (Haldol Decanoate Im Extended Release) 450 mg Q24D IM ; Start 10/18/17 at 08:00 Theophylline (Theophylline Extended Release) 200 mg BID PO Last administered on 10/10/17at 10:45; Start 10/07/17 at 09:00 Lactobacillus Rhamnosus (Culturelle) 1 cap BID PO Last administered on at 10:47; Start 10/07/17 at 21:00 Clonazepam (KlonoPIN) 1 mg STK-MED ONCE .ROUTE ; Start 10/07/17 at 09:00; Stop 10/08/17 at 11:51; Status DC Clonazepam (KlonoPIN) 1 mg STK-MED ONCE .ROUTE ; Start 10/07/17 at 09:00; Stop 10/08/17 at 11:51; Status DC Clonazepam (KlonoPIN) 1 mg STK-MED ONCE .ROUTE ; Start 10/07/17 at 09:00; Stop 10/08/17 at 11:51; Status DC Diltiazem HCl (Cardizem 24hr Cd) 120 mg STK-MED ONCE PO ; Start 10/07/17 at 09: 00; Stop 10/08/17 at 11:51; Status DC Divalproex Sodium (Depakote Sprinkles) 750 mg STK-MED ONCE PO ; Start 10/07/17 at 09:00; Stop 10/08/17 at 11:51; Status DC Divalproex Sodium (Depakote Sprinkles) 750 mg STK-MED ONCE PO ; Start 10/07/17 at 09:00; Stop 10/08/17 at 11:51; Status DC Furosemide (Lasix) 80 mg STK-MED ONCE .ROUTE ; Start 10/07/17 at 09:00; Stop at 11:51; Status DC Furosemide (Lasix) 80 mg STK-MED ONCE .ROUTE ; Start 10/07/17 at 09:00; Stop at 11:51; Status DC Magnesium Oxide (Magnesium Oxide) 400 mg STK-MED ONCE .ROUTE ; Start 10/07/17 at 09:00; Stop 10/08/17 at 11:51; Status DC Metolazone (Zaroxolyn) 5 mg STK-MED ONCE .ROUTE ; Start 10/07/17 at 09:00; Stop 10/08/17 at 11:51; Status DC Mirtazapine (Remeron) 15 mg STK-MED ONCE .ROUTE ; Start 10/07/17 at 09:00; Stop 10/08/17 at 11:51; Status DC Clonazepam (KlonoPIN) 1 mg STK-MED ONCE .ROUTE ; Start 10/08/17 at 09:00; Stop 10/08/17 at 11:52; Status DC Diltiazem HCl (Cardizem 24hr Cd) 120 mg STK-MED ONCE PO ; Start 10/08/17 at 09: 00; Stop 10/08/17 at 11:52; Status DC Divalproex Sodium (Depakote Sprinkles) 750 mg STK-MED ONCE PO ; Start 10/08/17 at 09:00; Stop 10/08/17 at 11:52; Status DC Furosemide (Lasix) 80 mg STK-MED ONCE .ROUTE ; Start 10/08/17 at 09:00; Stop at 11:52; Status DC Magnesium Oxide (Magnesium Oxide) 400 mg STK-MED ONCE .ROUTE ; Start 10/08/17 at 09:00; Stop 10/08/17 at 11:52; Status DC Metolazone (Zaroxolyn) 5 mg STK-MED ONCE .ROUTE ; Start 10/08/17 at 09:00; Stop 10/08/17 at 11:52; Status DC Divalproex Sodium (Depakote Sprinkles) 1,000 mg BID PO Last administered on at 10:45; Start 10/08/17 at 21:00 Metformin HCl (Glucophage) 500 mg BIDWMEALS PO Last administered on 10/10/17at 16:47; Start 10/09/17 at 08:00 Insulin Human Lispro (HumaLOG) 0-9 UNITS TIDWMEALS SQ Last administered on 10/10at 17:28; Start 10/09/17 at 08:00 Dextrose 12.5 gm PRN Q15MIN PRN IV SEE COMMENTS; Start 10/08/17 at 19:30 Insulin Glargine (Lantus) 8 units 1X ONCE SQ Last administered on 10/08/17at 22 :10; Start 10/08/17 at 22:00; Stop 10/08/17 at 22:01; Status DC Olanzapine (ZyPREXA ZYDIS) 2.5 mg PRN Q2HR PRN PO PSYCHOSIS; Start 10/09/17 at 18:45 Active Scripts Active Reported Novolog Flexpen (Insulin Aspart) 100 Unit/1 Ml Insuln.pen 8 Unit SQ TIDBFRMEAL Theophylline Anhydrous 200 Mg Tab.er.12h 200 Mg PO BID Metolazone 5 Mg Tablet 5 Mg PO DAILY Metformin Hcl 500 Mg Tablet 500 Mg PO BIDWMEALS Metformin Hcl 500 Mg Tablet 500 Mg PO DAILY Geodon (Ziprasidone Mesylate) 20 Mg Vial 20 Mg IM DAILY Cardizem Tablet (Diltiazem Hcl) 120 Mg Tablet 120 Mg PO DAILY Amantadine (Amantadine Hcl) 100 Mg Tablet 100 Mg PO BID Actos (Pioglitazone Hcl) 15 Mg Tablet 15 Mg PO DAILY Buspirone Hcl 5 Mg Tablet 5 Mg PO QID Mirtazapine 15 Mg Tablet 15 Mg PO QHS Haldol Decanoate 100 (Haloperidol Decanoate) 100 Mg/1 Ml Ampul 450 Mg IM [id number] Depakote Sprinkle (Divalproex Sodium) 125 Mg Cap.sprink 750 Mg PO BID Klor-Con M20 (Potassium Chloride) 20 Meq Tab.er.prt 40 Meq PO BIDWMEALS Analgesic [place] (Methyl Salicylate/Menthol) 28 Gm Oint...g. 1 [place] TP PRN QID PRN Magnesium Oxide 400 Mg Tablet 400 Mg PO BID Milk Of Magnesia (Magnesium Hydroxide) 2,400 Mg/10 Ml Oral.susp 2,400 Mg PO PRN QHS PRN Maalox Advanced Suspension (Mag Hydrox/Aluminum Hyd/Simeth) 355 Ml Oral.susp 15 Ml PO PRN AFTMEALHC PRN D3-50 (Cholecalciferol (Vitamin D3)) 50,000 Unit Capsule 50,000 Unit PO QTH Levemir Flextouch (Insulin Detemir) 100 Unit/1 Ml Insuln.pen 55 Unit SQ QHS Clonazepam 1 Mg Tablet 1 Mg PO TID Furosemide 40 Mg Tablet 80 Mg PO [id number] Hold for SBP less than 100. After held dose, reassess in 2 hours. If SBP is above threshold, administer dose as ordered. If SBP is below threshold, contact provider for additional instructions. I have reviewed the current psychotropics carefully including drug interactions. Risk benefit ratio favors no change other than as noted in my dictated progress note. Diagnosis: Problems: (1) Depression (2) Schizoaffective disorder (3) Anxiety disorder (4) Impulse control disorder (5) Schizoaffective disorder, chronic condition with acute exacerbation (6) Mental status change KALIN STARKS MD October 10, 2017 20:26
[2017-10-10] MEDS: MIRTAZAPINE 15 MG TABLET PO SCH ×2 (21:00→22:07)
[2017-10-11 05:35] VITALS: BP 121/60
[2017-10-11] MEDS: DIVALPROEX 125 MG CAP.SPRINK PO SCH (07:51)
[2017-10-11] MEDS: busPIRone 5 MG TABLET. PO SCH ×5 (07:51→20:47)
[2017-10-11] MEDS: CEPHALEXIN 250 MG CAPSULE PO SCH ×4 (07:51→13:53)
[2017-10-11] MEDS: clonazePAM 1 MG TABLET PO SCH ×4 (07:54→20:47)
[2017-10-11] MEDS: POTASSIUM CHLORIDE 20 MEQ TABLET.ER. PO SCH ×2 (08:00→17:37)
[2017-10-11] MEDS: INSULIN LISPRO 300 UNITS/3 ML INSULN.PEN. SQ SCH ×3 (08:00→17:40)
[2017-10-11] MEDS: metFORMIN 500 MG TABLET PO SCH ×2 (08:00→17:37)
[2017-10-11] MEDS: PIOGLITAZONE 15 MG TABLET. PO SCH (08:58)
[2017-10-11] MEDS: LACTOBACILLUS RHAMNOSUS GG 1 CAPSULE. PO SCH ×2 (08:58→20:48)
[2017-10-11] MEDS: metOLazone 5 MG TABLET PO SCH (08:59)
[2017-10-11] MEDS: AMANTADINE HCL 100 MG CAPSULE PO SCH ×2 (08:59→20:49)
[2017-10-11] MEDS: MAGNESIUM OXIDE 400 MG TABLET PO SCH ×2 (08:59→20:49)
[2017-10-11] MEDS: THEOPHYLLINE ANHYDROUS 400 MG TABLET.ER. PO SCH ×2 (08:59→20:49)
[2017-10-11] MEDS: FUROSEMIDE 40 MG TABLET PO SCH ×2 (08:59→13:49)
[2017-10-11] MEDS: VALPROATE ACID 250 MG/5 ML ORAL SOLUTION PO SCH ×2 (12:19→20:47)
[2017-10-11 16:36] VITALS: BP 137/67
[2017-10-11] MEDS: MIRTAZAPINE 15 MG TABLET PO SCH (20:47)
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
--- NOTE | 2017-10-12 03:40 | PN ---
DATE: 10/10/2017 PSYCHIATRIC PROGRESS NOTE This late entry 10/10/2017 covers elements not covered in my initial note 10/10/2017. SUBJECTIVE: I met with the patient in the evening. The patient slept 6-1/2 hours. Very selective on what medication she took and only took the "blue pills." She is taking the Depakote, takes the rest crushed and hidden in food and fluids. REVIEW OF SYSTEMS: Ambulation impaired, in wheelchair. No CV, , pulmonary, eye system symptoms on review. MENTAL STATUS EXAM: Oriented to herself and situation. Speech coherent, rapid at times. Abstraction fair, computation impaired, language function intact. Mood and affect labile. IMPRESSION: Unchanged from initial note. PLAN: Continue psychotropics per my initial note. Follow labs level, adjust Depakote thereafter. MAN Mary STARKS MD DR: TRACIE/karli JOB#: [id number] / [id number]
[2017-10-12 06:21] VITALS: BP 106/47
[2017-10-12 07:47] LABS: BASO % 1 % (0-3); EOS # 0.1 x10^3/uL (0.0-0.7); EOS % 2 % (0-3); HEMATOCRIT 38.4 % (36.0-47.0); HEMOGLOBIN 12.3 g/dL (12.0-15.5); LYMPH # 1.9 x10^3/uL (1.0-4.8); LYMPH % 30 % (24-48); MEAN CORPUSCULAR HEMOGLOBIN 27 pg (25-35); MEAN CORPUSCULAR HGB CONC 32 g/dL (31-37); MEAN CORPUSCULAR VOLUME 85 fL (79-100); MONO # 0.9 x10^3/uL (0.0-1.1); MONO % 13 % (0-9); NEUT # 3.6 x10^3uL (1.8-7.7); NEUT % 54 % (31-73); PLATELET COUNT 211 x10^3/uL (140-400); RED BLOOD COUNT 4.52 x10^6/uL (3.50-5.40); RED CELL DISTRIBUTION WIDTH 16.6 % (11.5-14.5); WHITE BLOOD COUNT 6.6 x10^3/uL (4.0-11.0)
[2017-10-12 07:55] VITALS: BP 120/69
[2017-10-12] MEDS: POTASSIUM CHLORIDE 20 MEQ TABLET.ER. PO SCH ×2 (08:00→16:53)
[2017-10-12 08:15] LABS: ALBUMIN/GLOBULIN RATIO 0.6 (1.0-1.7); ALK PHOS 125 U/L (46-116); ALT (SGPT) 13 U/L (14-59); ANION GAP 6 (6-14); AST (SGOT) 13 U/L (15-37); BLOOD UREA NITROGEN 32 mg/dL (7-20); BUN/CREATININE RATIO 27 (6-20); CARBON DIOXIDE 42 mmol/L (21-32); CHLORIDE 89 mmol/L (98-107); CREATININE 1.2 mg/dL (0.6-1.0); GFR 45.4; GLUCOSE 164 mg/dL (70-99); SODIUM 137 mmol/L (136-145); TOTAL BILIRUBIN 0.2 mg/dL (0.2-1.0); TOTAL PROTEIN 8.2 g/dL (6.4-8.2)
[2017-10-12 08:35] LABS: POTASSIUM 2.5 mmol/L (3.5-5.1); VAL ACID 85 mcg/mL (50-100)
[2017-10-12] MEDS: FUROSEMIDE 40 MG TABLET PO SCH ×2 (09:00→14:00)
[2017-10-12] MEDS: HALOPERIDOL 10 MG/5 ML ORAL.CONC. PO SCH (09:18)
[2017-10-12] MEDS: clonazePAM 1 MG TABLET PO SCH ×3 (09:21→19:27)
[2017-10-12] MEDS: VALPROATE ACID 250 MG/5 ML ORAL SOLUTION PO SCH ×2 (09:31→19:25)
[2017-10-12] MEDS: PIOGLITAZONE 15 MG TABLET. PO SCH (09:31)
[2017-10-12] MEDS: metFORMIN 500 MG TABLET PO SCH ×2 (09:32→16:53)
[2017-10-12] MEDS: LACTOBACILLUS RHAMNOSUS GG 1 CAPSULE. PO SCH ×2 (09:32→19:26)
[2017-10-12] MEDS: busPIRone 5 MG TABLET. PO SCH ×4 (09:33→19:26)
[2017-10-12] MEDS: MAGNESIUM OXIDE 400 MG TABLET PO SCH ×2 (09:33→19:26)
[2017-10-12] MEDS: THEOPHYLLINE ANHYDROUS 400 MG TABLET.ER. PO SCH ×2 (09:34→19:28)
[2017-10-12] MEDS: metOLazone 5 MG TABLET PO SCH (09:35)
[2017-10-12] MEDS: INSULIN LISPRO 300 UNITS/3 ML INSULN.PEN. SQ SCH ×3 (09:38→17:25)
[2017-10-12] MEDS: AMANTADINE HCL 100 MG CAPSULE PO SCH ×2 (09:40→19:30)
[2017-10-12] MEDS ORDERED: POTASSIUM CHLORIDE 10 MEQ TABLET.ER. PO SCH (10:00)
[2017-10-12] MEDS: POTASSIUM CHLORIDE 20 MEQ/15 ML ORAL LIQUID. PEG SCH ×3 (10:22→13:00)
[2017-10-12] MEDS ORDERED: DIVALPROEX 125 MG CAP.SPRINK PO ONE (10:45)
[2017-10-12 16:43] VITALS: BP 112/63
[2017-10-12] MEDS: MIRTAZAPINE 15 MG TABLET PO SCH (19:26)
[2017-10-12] MEDS ORDERED: busPIRone 5 MG TABLET. PO SCH (21:00)
--- NOTE | 2017-10-12 23:01 | PDOC ---
Exam Note: Napoleon Note: Late entry for date of service October 11, 2017. Please also refer to the separate dictated note~for this date of service dictated separately.~Patient seen individually. Discussed the patient with Nursing staff reviewed the chart.~ Reviewed interim history and current functioning. Reviewed vital signs,~Labs/ Radiology~and current medications noted below. Continue current treatment with the changes noted in the dictated addendum note Assessment: Vital Signs: VS - Last 72 Hours, by Label Date Time Temp Pulse Resp B/P (MAP) Pulse Ox O2 Delivery O2 Flow Rate FiO2 10/12/17 16:43 97.0 82 18 112/63 (79) 99 10/12/17 09:33 74 120/69 10/12/17 07:55 74 120/69 (86) Room Air 10/12/17 06:21 97.8 76 18 106/47 (66) 94 2.0 10/11/17 16:36 96.3 88 20 137/67 (90) 93 10/11/17 05:35 98.3 85 20 121/60 (80) 94 2.0 10/10/17 16:57 97.1 93 18 123/82 (96) 97 Room Air 10/10/17 10:48 92 105/50 10/10/17 06:16 97.2 92 22 105/50 (68) 94 Vital Signs Date Time Temp Pulse Resp B/P (MAP) Pulse Ox O2 Delivery O2 Flow Rate FiO2 10/12/17 16:43 97.0 82 18 112/63 (79) 99 10/12/17 07:55 Room Air 10/12/17 06:21 2.0 I&O Intake and Output 10/12/17 07:00 Intake Total 480 ml Balance 480 ml Intake Oral 480 ml Labs: Laboratory Tests Test 10/12/17 07:16 10/12/17 07:27 10/12/17 12:05 10/12/17 14:00 White Blood Count 6.6 x10^3/uL (4.0-11.0) Red Blood Count 4.52 x10^6/uL (3.50-5.40) Hemoglobin 12.3 g/dL (12.0-15.5) Hematocrit 38.4 % (36.0-47.0) Mean Corpuscular Volume 85 fL (79-100) Mean Corpuscular Hemoglobin 27 pg (25-35) Mean Corpuscular Hemoglobin Concent 32 g/dL (31-37) Red Cell Distribution Width 16.6 % (11.5-14.5) H Platelet Count 211 x10^3/uL (140-400) Neutrophils (%) (Auto) 54 % (31-73) Lymphocytes (%) (Auto) 30 % (24-48) Monocytes (%) (Auto) 13 % (0-9) H Eosinophils (%) (Auto) 2 % (0-3) Basophils (%) (Auto) 1 % (0-3) Neutrophils # (Auto) 3.6 x10^3uL (1.8-7.7) Lymphocytes # (Auto) 1.9 x10^3/uL (1.0-4.8) Monocytes # (Auto) 0.9 x10^3/uL (0.0-1.1) Eosinophils # (Auto) 0.1 x10^3/uL (0.0-0.7) Basophils # (Auto) 0.0 x10^3/uL (0.0-0.2) Sodium Level 137 mmol/L (136-145) Potassium Level 2.5 mmol/L (3.5-5.1) *L 3.4 mmol/L (3.5-5.1) #L Chloride Level 89 mmol/L (98-107) L Carbon Dioxide Level 42 mmol/L (21-32) H Anion Gap 6 (6-14) Blood Urea Nitrogen 32 mg/dL (7-20) H Creatinine 1.2 mg/dL (0.6-1.0) H Estimated GFR (Cockcroft-Gault) 45.4 BUN/Creatinine Ratio 27 (6-20) H Glucose Level 164 mg/dL (70-99) H Calcium Level 9.0 mg/dL (8.5-10.1) Total Bilirubin 0.2 mg/dL (0.2-1.0) Aspartate Amino Transferase (AST) 13 U/L (15-37) L Alanine Aminotransferase (ALT) 13 U/L (14-59) L Alkaline Phosphatase 125 U/L (46-116) H Total Protein 8.2 g/dL (6.4-8.2) Albumin 3.0 g/dL (3.4-5.0) L Albumin/Globulin Ratio 0.6 (1.0-1.7) L Valproic Acid Level 85 mcg/mL (50-100) Valproic Acid Last Dose Date 10/11/17 Valproic Acid Last Dose Time 2100 Glucose (Fingerstick) 166 mg/dL (70-99) H 378 mg/dL (70-99) H Test 10/12/17 16:53 10/12/17 20:01 Glucose (Fingerstick) 187 mg/dL (70-99) H 243 mg/dL (70-99) H Current Medications: Meds: Current Medications Sodium Chloride 1,000 ml @ 1,000 mls/hr 1X ONCE IV Last administered on at 00:40; Start 10/06/17 at 22:30; Stop 10/06/17 at 23:29; Status DC Ziprasidone (Geodon Im) 20 mg 1X ONCE IM Last administered on 10/07/17at 00:06 ; Start 10/06/17 at 22:30; Stop 10/06/17 at 22:31; Status DC Diphenhydramine HCl (Benadryl) 50 mg 1X ONCE IV ; Start 10/06/17 at 22:30; Stop 10/06/17 at 23:08; Status DC Lorazepam (Ativan) 2 mg 1X ONCE IV ; Start 10/06/17 at 22:30; Stop 10/06/17 at 23:08; Status DC Diphenhydramine HCl (Benadryl) 50 mg 1X ONCE IM Last administered on at 23:09; Start 10/06/17 at 23:15; Stop 10/06/17 at 23:16; Status DC Lorazepam (Ativan) 2 mg 1X ONCE IM Last administered on 10/06/17at 23:09; Start 10/06/17 at 23:15; Stop 10/06/17 at 23:16; Status DC Ziprasidone (Geodon Im) 20 mg 1X ONCE IM ; Start 10/07/17 at 00:00; Stop at 00:01; Status DC Lorazepam (Ativan) 2 mg 1X ONCE IM Last administered on 10/07/17at 00:06; Start 10/07/17 at 00:00; Stop 10/07/17 at 00:01; Status DC Ceftriaxone Sodium (Rocephin Im) 1 gm 1X ONCE IM Last administered on at 00:40; Start 10/07/17 at 00:30; Stop 10/07/17 at 00:31; Status DC Magnesium Hydroxide (Milk Of Magnesia) 2,400 mg 1X ONCE PO Last administered on 10/07/17at 02:27; Start 10/07/17 at 02:15; Stop 10/07/17 at 02:16; Status DC Potassium Chloride (Klor-Con) 40 meq 1X ONCE PO Last administered on at 02:06; Start 10/07/17 at 02:15; Stop 10/07/17 at 02:16; Status DC Cephalexin HCl (Keflex) 500 mg TID PO Last administered on 10/10/17at 14:18; Start 10/07/17 at 09:00; Stop 10/11/17 at 19:05; Status DC Acetaminophen (Tylenol) 650 mg PRN Q6HRS PRN PO PAIN / TEMP; Start 10/07/17 at 03:45 Multi-Ingredient Ointment (Analgesic [place]) 1 guanaco PRN QID PRN TP MUSCLE PAIN; Start 10/07/17 at 03:45 Al Hydroxide/Mg Hydroxide (Mylanta Plus Xs) 15 ml PRN AFTMEALHC PRN PO DYSPEPSIA; Start 10/07/17 at 03:45 Magnesium Hydroxide (Milk Of Magnesia) 2,400 mg PRN QHS PRN PO CONSTIPATION; Start 10/07/17 at 03:45 Vitamin D (Vitamin D3) 50,000 unit QTH@0900 PO Last administered on 10/10/17at 10:53; Start 10/10/17 at 09:00 Multi-Ingredient Ointment (Analgesic [place]) 1 guanaco PRN QID PRN TP MUSCLE PAIN; Start 10/07/17 at 08:00; Status UNV Potassium Chloride (Klor-Con) 40 meq BIDWMEALS PO Last administered on at 16:53; Start 10/07/17 at 08:00 Theophylline (Theodur) 200 mg BID PO ; Start 10/07/17 at 09:00; Stop 10/07/17 at 09:00; Status DC Amantadine HCl (Symmetrel) 100 mg BID PO Last administered on 10/12/17at 19:30; Start 10/07/17 at 09:00 Buspirone HCl (Buspar) 5 mg QID PO Last administered on 10/12/17at 19:26; Start 10/07/17 at 09:00; Stop 10/12/17 at 19:48; Status DC Clonazepam (KlonoPIN) 1 mg TID PO Last administered on 10/12/17 19:27; Start 10/07/17 at 09:00 Diltiazem HCl (Cardizem 24hr Cd) 120 mg DAILY PO Last administered on at 09:33; Start 10/07/17 at 09:00 Divalproex Sodium (Depakote Sprinkles) 750 mg BID PO Last administered on at 10:18; Start 10/07/17 at 09:00; Stop 10/08/17 at 18:28; Status DC Furosemide (Lasix) 80 mg [id number] PO Last administered on 10/11/17at 13:49; Start 10/07/17 at 09:00 Non-Formulary Medication (Haloperidol Decanoate (Haldol Decanoate 100)) 450 mg [id number] IM ; Start 10/07/17 at 08:00; Stop 10/07/17 at 08:10; Status DC Non-Formulary Medication (Mag Hydrox/ Aluminum Hyd/ Simeth (Maalox Advanced Suspension)) 15 ml PRN AFTMEALHC PRN PO DYSPEPSIA; Start 10/07/17 at 08:00; Status UNV Non-Formulary Medication (Magnesium Hydroxide (Milk Of Magnesia)) 2,400 mg PRN QHS PRN PO CONSTIPATION; Start 10/07/17 at 08:00; Status UNV Magnesium Oxide (Magnesium Oxide) 400 mg BID PO Last administered on 10/12/17 19:26; Start 10/07/17 at 09:00 Metformin HCl (Glucophage) 500 mg [id number] PO Last administered on 10/08/17at 10:19; Start 10/07/17 at 08:00; Stop 10/08/17 at 19:23; Status DC Metolazone (Zaroxolyn) 5 mg DAILY PO Last administered on 10/12/17at 09:35; Start 10/07/17 at 09:00 Mirtazapine (Remeron) 15 mg QHS PO Last administered on 10/12/17at 19:26; Start 10/07/17 at 21:00 Pioglitazone HCl (Actos) 15 mg DAILY PO Last administered on 10/12/17at 09:31; Start 10/07/17 at 09:00 Haloperidol Decanoate (Haldol Decanoate Im Extended Release) 450 mg Q24D IM ; Start 10/18/17 at 08:00 Theophylline (Theophylline Extended Release) 200 mg BID PO Last administered on 10/12/17at 19:28; Start 10/07/17 at 09:00 Lactobacillus Rhamnosus (Culturelle) 1 cap BID PO Last administered on at 19:26; Start 10/07/17 at 21:00 Clonazepam (KlonoPIN) 1 mg STK-MED ONCE .ROUTE ; Start 10/07/17 at 09:00; Stop 10/08/17 at 11:51; Status DC Clonazepam (KlonoPIN) 1 mg STK-MED ONCE .ROUTE ; Start 10/07/17 at 09:00; Stop 10/08/17 at 11:51; Status DC Clonazepam (KlonoPIN) 1 mg STK-MED ONCE .ROUTE ; Start 10/07/17 at 09:00; Stop 10/08/17 at 11:51; Status DC Diltiazem HCl (Cardizem 24hr Cd) 120 mg STK-MED ONCE PO ; Start 10/07/17 at 09: 00; Stop 10/08/17 at 11:51; Status DC Divalproex Sodium (Depakote Sprinkles) 750 mg STK-MED ONCE PO ; Start 10/07/17 at 09:00; Stop 10/08/17 at 11:51; Status DC Divalproex Sodium (Depakote Sprinkles) 750 mg STK-MED ONCE PO ; Start 10/07/17 at 09:00; Stop 10/08/17 at 11:51; Status DC Furosemide (Lasix) 80 mg STK-MED ONCE .ROUTE ; Start 10/07/17 at 09:00; Stop at 11:51; Status DC Furosemide (Lasix) 80 mg STK-MED ONCE .ROUTE ; Start 10/07/17 at 09:00; Stop at 11:51; Status DC Magnesium Oxide (Magnesium Oxide) 400 mg STK-MED ONCE .ROUTE ; Start 10/07/17 at 09:00; Stop 10/08/17 at 11:51; Status DC Metolazone (Zaroxolyn) 5 mg STK-MED ONCE .ROUTE ; Start 10/07/17 at 09:00; Stop 10/08/17 at 11:51; Status DC Mirtazapine (Remeron) 15 mg STK-MED ONCE .ROUTE ; Start 10/07/17 at 09:00; Stop 10/08/17 at 11:51; Status DC Clonazepam (KlonoPIN) 1 mg STK-MED ONCE .ROUTE ; Start 10/08/17 at 09:00; Stop 10/08/17 at 11:52; Status DC Diltiazem HCl (Cardizem 24hr Cd) 120 mg STK-MED ONCE PO ; Start 10/08/17 at 09: 00; Stop 10/08/17 at 11:52; Status DC Divalproex Sodium (Depakote Sprinkles) 750 mg STK-MED ONCE PO ; Start 10/08/17 at 09:00; Stop 10/08/17 at 11:52; Status DC Furosemide (Lasix) 80 mg STK-MED ONCE .ROUTE ; Start 10/08/17 at 09:00; Stop at 11:52; Status DC Magnesium Oxide (Magnesium Oxide) 400 mg STK-MED ONCE .ROUTE ; Start 10/08/17 at 09:00; Stop 10/08/17 at 11:52; Status DC Metolazone (Zaroxolyn) 5 mg STK-MED ONCE .ROUTE ; Start 10/08/17 at 09:00; Stop 10/08/17 at 11:52; Status DC Divalproex Sodium (Depakote Sprinkles) 1,000 mg BID PO Last administered on at 07:51; Start 10/08/17 at 21:00; Stop 10/11/17 at 09:40; Status DC Metformin HCl (Glucophage) 500 mg BIDWMEALS PO Last administered on 10/12/17at 16:53; Start 10/09/17 at 08:00 Insulin Human Lispro (HumaLOG) 0-9 UNITS TIDWMEALS SQ Last administered on 10/12at 17:25; Start 10/09/17 at 08:00 Dextrose 12.5 gm PRN Q15MIN PRN IV SEE COMMENTS; Start 10/08/17 at 19:30 Insulin Glargine (Lantus) 8 units 1X ONCE SQ Last administered on 10/08/17at 22 :10; Start 10/08/17 at 22:00; Stop 10/08/17 at 22:01; Status DC Olanzapine (ZyPREXA ZYDIS) 2.5 mg PRN Q2HR PRN PO PSYCHOSIS; Start 10/09/17 at 18:45 Valproic Acid (Depakene) 1,000 mg BID PO Last administered on 10/12/17at 19:25; Start 10/11/17 at 09:30 Haloperidol Lactate (Haldol Oral) 5 mg DAILY PO Last administered on 10/12/17at 09:18; Start 10/12/17 at 09:00 Potassium Chloride (Klor-Con) 40 meq Q1HR PO Last administered on 10/12/17at 09: 19; Start 10/12/17 at 10:00; Stop 10/12/17 at 10:15; Status DC Potassium Chloride (KCl Oral Soln) 40 meq Q1HR PEG Last administered on at 12:29; Start 10/12/17 at 11:00; Stop 10/12/17 at 13:01; Status DC Divalproex Sodium (Depakote Sprinkles) 250 mg 1X ONCE PO Last administered on 10/12/17at 10:45; Start 10/12/17 at 10:45; Stop 10/12/17 at 10:46; Status DC Buspirone HCl (Buspar) 10 mg QID PO ; Start 10/12/17 at 21:00; Stop 10/12/17 at 21:00; Status DC Buspirone HCl (Buspar) 10 mg TID@0900,1300,1700 PO ; Start 10/13/17 at 09:00 Active Scripts Active Reported Novolog Flexpen (Insulin Aspart) 100 Unit/1 Ml Insuln.pen 8 Unit SQ TIDBFRMEAL Theophylline Anhydrous 200 Mg Tab.er.12h 200 Mg PO BID Metolazone 5 Mg Tablet 5 Mg PO DAILY Metformin Hcl 500 Mg Tablet 500 Mg PO BIDWMEALS Metformin Hcl 500 Mg Tablet 500 Mg PO DAILY Geodon (Ziprasidone Mesylate) 20 Mg Vial 20 Mg IM DAILY Cardizem Tablet (Diltiazem Hcl) 120 Mg Tablet 120 Mg PO DAILY Amantadine (Amantadine Hcl) 100 Mg Tablet 100 Mg PO BID Actos (Pioglitazone Hcl) 15 Mg Tablet 15 Mg PO DAILY Buspirone Hcl 5 Mg Tablet 5 Mg PO QID Mirtazapine 15 Mg Tablet 15 Mg PO QHS Haldol Decanoate 100 (Haloperidol Decanoate) 100 Mg/1 Ml Ampul 450 Mg IM [id number] Depakote Sprinkle (Divalproex Sodium) 125 Mg Cap.sprink 750 Mg PO BID Klor-Con M20 (Potassium Chloride) 20 Meq Tab.er.prt 40 Meq PO BIDWMEALS Analgesic [place] (Methyl Salicylate/Menthol) 28 Gm Oint...g. 1 Guanaco TP PRN QID PRN Magnesium Oxide 400 Mg Tablet 400 Mg PO BID Milk Of Magnesia (Magnesium Hydroxide) 2,400 Mg/10 Ml Oral.susp 2,400 Mg PO PRN QHS PRN Maalox Advanced Suspension (Mag Hydrox/Aluminum Hyd/Simeth) 355 Ml Oral.susp 15 Ml PO PRN AFTMEALHC PRN D3-50 (Cholecalciferol (Vitamin D3)) 50,000 Unit Capsule 50,000 Unit PO QTH Levemir Flextouch (Insulin Detemir) 100 Unit/1 Ml Insuln.pen 55 Unit SQ QHS Clonazepam 1 Mg Tablet 1 Mg PO TID Furosemide 40 Mg Tablet 80 Mg PO [id number] Hold for SBP less than 100. After held dose, reassess in 2 hours. If SBP is above threshold, administer dose as ordered. If SBP is below threshold, contact provider for additional instructions. I have reviewed the current psychotropics carefully including drug interactions. Risk benefit ratio favors no change other than as noted in my dictated progress note. Diagnosis: Problems: (1) Depression (2) Schizoaffective disorder (3) Anxiety disorder (4) Impulse control disorder (5) Schizoaffective disorder, chronic condition with acute exacerbation (6) Mental status change KALIN STARKS MD October 12, 2017 23:01
--- NOTE | 2017-10-12 23:26 | PDOC ---
Exam Note: Napoleon Note: Please also refer to the separate dictated note~for this date of service dictated separately.~Patient seen individually. Discussed the patient with Nursing staff reviewed the chart.~Reviewed interim history and current functioning. Reviewed vital signs,~Labs/ Radiology~and current medications noted below. Continue current treatment with the changes noted in the dictated addendum note Assessment: Vital Signs: Vital Signs Date Time Temp Pulse Resp B/P (MAP) Pulse Ox O2 Delivery O2 Flow Rate FiO2 10/12/17 16:43 97.0 82 18 112/63 (79) 99 10/12/17 07:55 Room Air 10/12/17 06:21 2.0 I&O Intake and Output 10/12/17 07:00 Intake Total 480 ml Balance 480 ml Intake Oral 480 ml Labs: Laboratory Tests Test 10/12/17 07:16 10/12/17 07:27 10/12/17 12:05 10/12/17 14:00 White Blood Count 6.6 x10^3/uL (4.0-11.0) Red Blood Count 4.52 x10^6/uL (3.50-5.40) Hemoglobin 12.3 g/dL (12.0-15.5) Hematocrit 38.4 % (36.0-47.0) Mean Corpuscular Volume 85 fL (79-100) Mean Corpuscular Hemoglobin 27 pg (25-35) Mean Corpuscular Hemoglobin Concent 32 g/dL (31-37) Red Cell Distribution Width 16.6 % (11.5-14.5) H Platelet Count 211 x10^3/uL (140-400) Neutrophils (%) (Auto) 54 % (31-73) Lymphocytes (%) (Auto) 30 % (24-48) Monocytes (%) (Auto) 13 % (0-9) H Eosinophils (%) (Auto) 2 % (0-3) Basophils (%) (Auto) 1 % (0-3) Neutrophils # (Auto) 3.6 x10^3uL (1.8-7.7) Lymphocytes # (Auto) 1.9 x10^3/uL (1.0-4.8) Monocytes # (Auto) 0.9 x10^3/uL (0.0-1.1) Eosinophils # (Auto) 0.1 x10^3/uL (0.0-0.7) Basophils # (Auto) 0.0 x10^3/uL (0.0-0.2) Sodium Level 137 mmol/L (136-145) Potassium Level 2.5 mmol/L (3.5-5.1) *L 3.4 mmol/L (3.5-5.1) #L Chloride Level 89 mmol/L (98-107) L Carbon Dioxide Level 42 mmol/L (21-32) H Anion Gap 6 (6-14) Blood Urea Nitrogen 32 mg/dL (7-20) H Creatinine 1.2 mg/dL (0.6-1.0) H Estimated GFR (Cockcroft-Gault) 45.4 BUN/Creatinine Ratio 27 (6-20) H Glucose Level 164 mg/dL (70-99) H Calcium Level 9.0 mg/dL (8.5-10.1) Total Bilirubin 0.2 mg/dL (0.2-1.0) Aspartate Amino Transferase (AST) 13 U/L (15-37) L Alanine Aminotransferase (ALT) 13 U/L (14-59) L Alkaline Phosphatase 125 U/L (46-116) H Total Protein 8.2 g/dL (6.4-8.2) Albumin 3.0 g/dL (3.4-5.0) L Albumin/Globulin Ratio 0.6 (1.0-1.7) L Valproic Acid Level 85 mcg/mL (50-100) Valproic Acid Last Dose Date 10/11/17 Valproic Acid Last Dose Time 2100 Glucose (Fingerstick) 166 mg/dL (70-99) H 378 mg/dL (70-99) H Test 10/12/17 16:53 10/12/17 20:01 Glucose (Fingerstick) 187 mg/dL (70-99) H 243 mg/dL (70-99) H Current Medications: Meds: Current Medications Sodium Chloride 1,000 ml @ 1,000 mls/hr 1X ONCE IV Last administered on at 00:40; Start 10/06/17 at 22:30; Stop 10/06/17 at 23:29; Status DC Ziprasidone (Geodon Im) 20 mg 1X ONCE IM Last administered on 10/07/17at 00:06 ; Start 10/06/17 at 22:30; Stop 10/06/17 at 22:31; Status DC Diphenhydramine HCl (Benadryl) 50 mg 1X ONCE IV ; Start 10/06/17 at 22:30; Stop 10/06/17 at 23:08; Status DC Lorazepam (Ativan) 2 mg 1X ONCE IV ; Start 10/06/17 at 22:30; Stop 10/06/17 at 23:08; Status DC Diphenhydramine HCl (Benadryl) 50 mg 1X ONCE IM Last administered on at 23:09; Start 10/06/17 at 23:15; Stop 10/06/17 at 23:16; Status DC Lorazepam (Ativan) 2 mg 1X ONCE IM Last administered on 10/06/17at 23:09; Start 10/06/17 at 23:15; Stop 10/06/17 at 23:16; Status DC Ziprasidone (Geodon Im) 20 mg 1X ONCE IM ; Start 10/07/17 at 00:00; Stop at 00:01; Status DC Lorazepam (Ativan) 2 mg 1X ONCE IM Last administered on 10/07/17at 00:06; Start 10/07/17 at 00:00; Stop 10/07/17 at 00:01; Status DC Ceftriaxone Sodium (Rocephin Im) 1 gm 1X ONCE IM Last administered on at 00:40; Start 10/07/17 at 00:30; Stop 10/07/17 at 00:31; Status DC Magnesium Hydroxide (Milk Of Magnesia) 2,400 mg 1X ONCE PO Last administered on 10/07/17at 02:27; Start 10/07/17 at 02:15; Stop 10/07/17 at 02:16; Status DC Potassium Chloride (Klor-Con) 40 meq 1X ONCE PO Last administered on at 02:06; Start 10/07/17 at 02:15; Stop 10/07/17 at 02:16; Status DC Cephalexin HCl (Keflex) 500 mg TID PO Last administered on 10/10/17at 14:18; Start 10/07/17 at 09:00; Stop 10/11/17 at 19:05; Status DC Acetaminophen (Tylenol) 650 mg PRN Q6HRS PRN PO PAIN / TEMP; Start 10/07/17 at 03:45 Multi-Ingredient Ointment (Analgesic [place]) 1 guanaco PRN QID PRN TP MUSCLE PAIN; Start 10/07/17 at 03:45 Al Hydroxide/Mg Hydroxide (Mylanta Plus Xs) 15 ml PRN AFTMEALHC PRN PO DYSPEPSIA; Start 10/07/17 at 03:45 Magnesium Hydroxide (Milk Of Magnesia) 2,400 mg PRN QHS PRN PO CONSTIPATION; Start 10/07/17 at 03:45 Vitamin D (Vitamin D3) 50,000 unit QTH@0900 PO Last administered on 10/10/17at 10:53; Start 10/10/17 at 09:00 Multi-Ingredient Ointment (Analgesic [place]) 1 guanaco PRN QID PRN TP MUSCLE PAIN; Start 10/07/17 at 08:00; Status UNV Potassium Chloride (Klor-Con) 40 meq BIDWMEALS PO Last administered on at 16:53; Start 10/07/17 at 08:00 Theophylline (Theodur) 200 mg BID PO ; Start 10/07/17 at 09:00; Stop 10/07/17 at 09:00; Status DC Amantadine HCl (Symmetrel) 100 mg BID PO Last administered on 10/12/17at 19:30; Start 10/07/17 at 09:00 Buspirone HCl (Buspar) 5 mg QID PO Last administered on 10/12/17at 19:26; Start 10/07/17 at 09:00; Stop 10/12/17 at 19:48; Status DC Clonazepam (KlonoPIN) 1 mg TID PO Last administered on 10/12/17at 19:27; Start 10/07/17 at 09:00 Diltiazem HCl (Cardizem 24hr Cd) 120 mg DAILY PO Last administered on at 09:33; Start 10/07/17 at 09:00 Divalproex Sodium (Depakote Sprinkles) 750 mg BID PO Last administered on at 10:18; Start 10/07/17 at 09:00; Stop 10/08/17 at 18:28; Status DC Furosemide (Lasix) 80 mg [id number] PO Last administered on 5/18/18at 13:49; Start 10/07/17 at 09:00 Non-Formulary Medication (Haloperidol Decanoate (Haldol Decanoate 100)) 450 mg [id number] IM ; Start 10/07/17 at 08:00; Stop 10/07/17 at 08:10; Status DC Non-Formulary Medication (Mag Hydrox/ Aluminum Hyd/ Simeth (Maalox Advanced Suspension)) 15 ml PRN AFTMEALHC PRN PO DYSPEPSIA; Start 10/07/17 at 08:00; Status UNV Non-Formulary Medication (Magnesium Hydroxide (Milk Of Magnesia)) 2,400 mg PRN QHS PRN PO CONSTIPATION; Start 10/07/17 at 08:00; Status UNV Magnesium Oxide (Magnesium Oxide) 400 mg BID PO Last administered on 10/12/17at 19:26; Start 10/07/17 at 09:00 Metformin HCl (Glucophage) 500 mg DAILYWBKFT PO Last administered on 10/08/17at 10:19; Start 10/07/17 at 08:00; Stop 10/08/17 at 19:23; Status DC Metolazone (Zaroxolyn) 5 mg DAILY PO Last administered on 10/12/17at 09:35; Start 10/07/17 at 09:00 Mirtazapine (Remeron) 15 mg QHS PO Last administered on 10/12/17at 19:26; Start 10/07/17 at 21:00 Pioglitazone HCl (Actos) 15 mg DAILY PO Last administered on 10/12/17at 09:31; Start 10/07/17 at 09:00 Haloperidol Decanoate (Haldol Decanoate Im Extended Release) 450 mg Q24D IM ; Start 10/18/17 at 08:00 Theophylline (Theophylline Extended Release) 200 mg BID PO Last administered on 10/12/17at 19:28; Start 10/07/17 at 09:00 Lactobacillus Rhamnosus (Culturelle) 1 cap BID PO Last administered on at 19:26; Start 10/07/17 at 21:00 Clonazepam (KlonoPIN) 1 mg STK-MED ONCE .ROUTE ; Start 10/07/17 at 09:00; Stop 10/08/17 at 11:51; Status DC Clonazepam (KlonoPIN) 1 mg STK-MED ONCE .ROUTE ; Start 10/07/17 at 09:00; Stop 10/08/17 at 11:51; Status DC Clonazepam (KlonoPIN) 1 mg STK-MED ONCE .ROUTE ; Start 10/07/17 at 09:00; Stop 10/08/17 at 11:51; Status DC Diltiazem HCl (Cardizem 24hr Cd) 120 mg STK-MED ONCE PO ; Start 10/07/17 at 09: 00; Stop 10/08/17 at 11:51; Status DC Divalproex Sodium (Depakote Sprinkles) 750 mg STK-MED ONCE PO ; Start 10/07/17 at 09:00; Stop 10/08/17 at 11:51; Status DC Divalproex Sodium (Depakote Sprinkles) 750 mg STK-MED ONCE PO ; Start 10/07/17 at 09:00; Stop 10/08/17 at 11:51; Status DC Furosemide (Lasix) 80 mg STK-MED ONCE .ROUTE ; Start 10/07/17 at 09:00; Stop at 11:51; Status DC Furosemide (Lasix) 80 mg STK-MED ONCE .ROUTE ; Start 10/07/17 at 09:00; Stop at 11:51; Status DC Magnesium Oxide (Magnesium Oxide) 400 mg STK-MED ONCE .ROUTE ; Start 10/07/17 at 09:00; Stop 10/08/17 at 11:51; Status DC Metolazone (Zaroxolyn) 5 mg STK-MED ONCE .ROUTE ; Start 10/07/17 at 09:00; Stop 10/08/17 at 11:51; Status DC Mirtazapine (Remeron) 15 mg STK-MED ONCE .ROUTE ; Start 10/07/17 at 09:00; Stop 10/08/17 at 11:51; Status DC Clonazepam (KlonoPIN) 1 mg STK-MED ONCE .ROUTE ; Start 10/08/17 at 09:00; Stop 10/08/17 at 11:52; Status DC Diltiazem HCl (Cardizem 24hr Cd) 120 mg STK-MED ONCE PO ; Start 10/08/17 at 09: 00; Stop 10/08/17 at 11:52; Status DC Divalproex Sodium (Depakote Sprinkles) 750 mg STK-MED ONCE PO ; Start 10/08/17 at 09:00; Stop 10/08/17 at 11:52; Status DC Furosemide (Lasix) 80 mg STK-MED ONCE .ROUTE ; Start 10/08/17 at 09:00; Stop at 11:52; Status DC Magnesium Oxide (Magnesium Oxide) 400 mg STK-MED ONCE .ROUTE ; Start 10/08/17 at 09:00; Stop 10/08/17 at 11:52; Status DC Metolazone (Zaroxolyn) 5 mg STK-MED ONCE .ROUTE ; Start 10/08/17 at 09:00; Stop 10/08/17 at 11:52; Status DC Divalproex Sodium (Depakote Sprinkles) 1,000 mg BID PO Last administered on at 07:51; Start 10/08/17 at 21:00; Stop 10/11/17 at 09:40; Status DC Metformin HCl (Glucophage) 500 mg BIDWMEALS PO Last administered on 10/12/17at 16:53; Start 10/09/17 at 08:00 Insulin Human Lispro (HumaLOG) 0-9 UNITS TIDWMEALS SQ Last administered on 10/12at 17:25; Start 10/09/17 at 08:00 Dextrose 12.5 gm PRN Q15MIN PRN IV SEE COMMENTS; Start 10/08/17 at 19:30 Insulin Glargine (Lantus) 8 units 1X ONCE SQ Last administered on 10/08/17at 22 :10; Start 10/08/17 at 22:00; Stop 10/08/17 at 22:01; Status DC Olanzapine (ZyPREXA ZYDIS) 2.5 mg PRN Q2HR PRN PO PSYCHOSIS; Start 10/09/17 at 18:45 Valproic Acid (Depakene) 1,000 mg BID PO Last administered on 10/12/17at 19:25; Start 10/11/17 at 09:30 Haloperidol Lactate (Haldol Oral) 5 mg DAILY PO Last administered on 10/12/17at 09:18; Start 10/12/17 at 09:00 Potassium Chloride (Klor-Con) 40 meq Q1HR PO Last administered on 10/12/17at 09: 19; Start 10/12/17 at 10:00; Stop 10/12/17 at 10:15; Status DC Potassium Chloride (KCl Oral Soln) 40 meq Q1HR PEG Last administered on at 12:29; Start 10/12/17 at 11:00; Stop 10/12/17 at 13:01; Status DC Divalproex Sodium (Depakote Sprinkles) 250 mg 1X ONCE PO Last administered on 10/12/17at 10:45; Start 10/12/17 at 10:45; Stop 10/12/17 at 10:46; Status DC Buspirone HCl (Buspar) 10 mg QID PO ; Start 10/12/17 at 21:00; Stop 10/12/17 at 21:00; Status DC Buspirone HCl (Buspar) 10 mg TID@0900,1300,1700 PO ; Start 10/13/17 at 09:00 Active Scripts Active Reported Novolog Flexpen (Insulin Aspart) 100 Unit/1 Ml Insuln.pen 8 Unit SQ TIDBFRMEAL Theophylline Anhydrous 200 Mg Tab.er.12h 200 Mg PO BID Metolazone 5 Mg Tablet 5 Mg PO DAILY Metformin Hcl 500 Mg Tablet 500 Mg PO BIDWMEALS Metformin Hcl 500 Mg Tablet 500 Mg PO DAILY Geodon (Ziprasidone Mesylate) 20 Mg Vial 20 Mg IM DAILY Cardizem Tablet (Diltiazem Hcl) 120 Mg Tablet 120 Mg PO DAILY Amantadine (Amantadine Hcl) 100 Mg Tablet 100 Mg PO BID Actos (Pioglitazone Hcl) 15 Mg Tablet 15 Mg PO DAILY Buspirone Hcl 5 Mg Tablet 5 Mg PO QID Mirtazapine 15 Mg Tablet 15 Mg PO QHS Haldol Decanoate 100 (Haloperidol Decanoate) 100 Mg/1 Ml Ampul 450 Mg IM [id number] Depakote Sprinkle (Divalproex Sodium) 125 Mg Cap.sprink 750 Mg PO BID Klor-Con M20 (Potassium Chloride) 20 Meq Tab.er.prt 40 Meq PO BIDWMEALS Analgesic [place] (Methyl Salicylate/Menthol) 28 Gm Oint...g. 1 Guanaco TP PRN QID PRN Magnesium Oxide 400 Mg Tablet 400 Mg PO BID Milk Of Magnesia (Magnesium Hydroxide) 2,400 Mg/10 Ml Oral.susp 2,400 Mg PO PRN QHS PRN Maalox Advanced Suspension (Mag Hydrox/Aluminum Hyd/Simeth) 355 Ml Oral.susp 15 Ml PO PRN AFTMEALHC PRN D3-50 (Cholecalciferol (Vitamin D3)) 50,000 Unit Capsule 50,000 Unit PO QTH Levemir Flextouch (Insulin Detemir) 100 Unit/1 Ml Insuln.pen 55 Unit SQ QHS Clonazepam 1 Mg Tablet 1 Mg PO TID Furosemide 40 Mg Tablet 80 Mg PO [id number] Hold for SBP less than 100. After held dose, reassess in 2 hours. If SBP is above threshold, administer dose as ordered. If SBP is below threshold, contact provider for additional instructions. I have reviewed the current psychotropics carefully including drug interactions. Risk benefit ratio favors no change other than as noted in my dictated progress note. Diagnosis: Problems: (1) Depression (2) Schizoaffective disorder (3) Anxiety disorder (4) Impulse control disorder (5) Schizoaffective disorder, chronic condition with acute exacerbation (6) Mental status change AKLIN STARKS MD October 12, 2017 23:26
[2017-10-13 06:33] VITALS: BP 121/75
[2017-10-13] MEDS: VALPROATE ACID 250 MG/5 ML ORAL SOLUTION PO SCH ×2 (07:38→19:34)
[2017-10-13] MEDS: HALOPERIDOL 10 MG/5 ML ORAL.CONC. PO SCH (07:39)
[2017-10-13] MEDS: metFORMIN 500 MG TABLET PO SCH ×2 (07:40→16:52)
[2017-10-13] MEDS: POTASSIUM CHLORIDE 20 MEQ TABLET.ER. PO SCH ×2 (07:41→16:52)
[2017-10-13] MEDS: PIOGLITAZONE 15 MG TABLET. PO SCH (07:42)
[2017-10-13] MEDS: busPIRone 5 MG TABLET. PO SCH ×3 (07:42→16:52)
[2017-10-13] MEDS: FUROSEMIDE 40 MG TABLET PO SCH (07:43)
[2017-10-13] MEDS: LACTOBACILLUS RHAMNOSUS GG 1 CAPSULE. PO SCH ×2 (07:43→19:33)
[2017-10-13] MEDS: MAGNESIUM OXIDE 400 MG TABLET PO SCH ×2 (07:43→19:33)
[2017-10-13] MEDS: AMANTADINE HCL 100 MG CAPSULE PO SCH ×2 (07:59→19:37)
[2017-10-13] MEDS: metOLazone 5 MG TABLET PO SCH (08:00)
[2017-10-13] MEDS: THEOPHYLLINE ANHYDROUS 400 MG TABLET.ER. PO SCH ×2 (08:00→19:37)
[2017-10-13] MEDS: clonazePAM 1 MG TABLET PO SCH ×3 (08:01→19:43)
[2017-10-13] MEDS: INSULIN LISPRO 300 UNITS/3 ML INSULN.PEN. SQ SCH ×3 (08:04→16:50)
[2017-10-13 15:45] VITALS: BP 108/61
[2017-10-13] MEDS: MIRTAZAPINE 15 MG TABLET PO SCH (19:33)
--- NOTE | 2017-10-13 20:56 | PDOC ---
Exam Note: Napoleon Note: Please also refer to the separate dictated note~for this date of service dictated separately.~Patient seen individually. Discussed the patient with Nursing staff reviewed the chart.~Reviewed interim history and current functioning. Reviewed vital signs,~Labs/ Radiology~and current medications noted below. Continue current treatment with the changes noted in the dictated addendum note Assessment: Vital Signs: Vital Signs Date Time Temp Pulse Resp B/P (MAP) Pulse Ox O2 Delivery O2 Flow Rate FiO2 10/13/17 15:45 96.9 79 18 108/61 (77) 95 10/12/17 07:55 Room Air 10/12/17 06:21 2.0 I&O Intake and Output 10/13/17 07:00 Intake Total 1080 ml Balance 1080 ml Intake Oral 1080 ml # Voids 1 Labs: Laboratory Tests Test 10/13/17 07:10 10/13/17 07:48 10/13/17 11:36 10/13/17 16:43 Glucose (Fingerstick) 210 mg/dL (70-99) H 215 mg/dL (70-99) H 189 mg/dL (70-99) H Potassium Level 3.4 mmol/L (3.5-5.1) L Test 10/13/17 19:28 Glucose (Fingerstick) 275 mg/dL (70-99) H Current Medications: Meds: Current Medications Sodium Chloride 1,000 ml @ 1,000 mls/hr 1X ONCE IV Last administered on at 00:40; Start 10/06/17 at 22:30; Stop 10/06/17 at 23:29; Status DC Ziprasidone (Geodon Im) 20 mg 1X ONCE IM Last administered on 10/07/17at 00:06 ; Start 10/06/17 at 22:30; Stop 10/06/17 at 22:31; Status DC Diphenhydramine HCl (Benadryl) 50 mg 1X ONCE IV ; Start 10/06/17 at 22:30; Stop 10/06/17 at 23:08; Status DC Lorazepam (Ativan) 2 mg 1X ONCE IV ; Start 10/06/17 at 22:30; Stop 10/06/17 at 23:08; Status DC Diphenhydramine HCl (Benadryl) 50 mg 1X ONCE IM Last administered on at 23:09; Start 10/06/17 at 23:15; Stop 10/06/17 at 23:16; Status DC Lorazepam (Ativan) 2 mg 1X ONCE IM Last administered on 10/06/17at 23:09; Start 10/06/17 at 23:15; Stop 10/06/17 at 23:16; Status DC Ziprasidone (Geodon Im) 20 mg 1X ONCE IM ; Start 10/07/17 at 00:00; Stop at 00:01; Status DC Lorazepam (Ativan) 2 mg 1X ONCE IM Last administered on 10/07/17at 00:06; Start 10/07/17 at 00:00; Stop 10/07/17 at 00:01; Status DC Ceftriaxone Sodium (Rocephin Im) 1 gm 1X ONCE IM Last administered on at 00:40; Start 10/07/17 at 00:30; Stop 10/07/17 at 00:31; Status DC Magnesium Hydroxide (Milk Of Magnesia) 2,400 mg 1X ONCE PO Last administered on 10/07/17at 02:27; Start 10/07/17 at 02:15; Stop 10/07/17 at 02:16; Status DC Potassium Chloride (Klor-Con) 40 meq 1X ONCE PO Last administered on at 02:06; Start 10/07/17 at 02:15; Stop 10/07/17 at 02:16; Status DC Cephalexin HCl (Keflex) 500 mg TID PO Last administered on 10/10/17at 14:18; Start 10/07/17 at 09:00; Stop 10/11/17 at 19:05; Status DC Acetaminophen (Tylenol) 650 mg PRN Q6HRS PRN PO PAIN / TEMP Last administered on 10/13/17at 19:43; Start 10/07/17 at 03:45 Multi-Ingredient Ointment (Analgesic [place]) 1 guanaco PRN QID PRN TP MUSCLE PAIN; Start 10/07/17 at 03:45 Al Hydroxide/Mg Hydroxide (Mylanta Plus Xs) 15 ml PRN AFTMEALHC PRN PO DYSPEPSIA; Start 10/07/17 at 03:45 Magnesium Hydroxide (Milk Of Magnesia) 2,400 mg PRN QHS PRN PO CONSTIPATION; Start 10/07/17 at 03:45 Vitamin D (Vitamin D3) 50,000 unit QTH@0900 PO Last administered on 10/10/17at 10:53; Start 10/10/17 at 09:00 Multi-Ingredient Ointment (Analgesic [place]) 1 guanaco PRN QID PRN TP MUSCLE PAIN; Start 10/07/17 at 08:00; Status UNV Potassium Chloride (Klor-Con) 40 meq BIDWMEALS PO Last administered on at 16:52; Start 10/07/17 at 08:00 Theophylline (Theodur) 200 mg BID PO ; Start 10/07/17 at 09:00; Stop 10/07/17 at 09:00; Status DC Amantadine HCl (Symmetrel) 100 mg BID PO Last administered on 10/13/17at 19:37; Start 10/07/17 at 09:00 Buspirone HCl (Buspar) 5 mg QID PO Last administered on 10/12/17at 19:26; Start 10/07/17 at 09:00; Stop 10/12/17 at 19:48; Status DC Clonazepam (KlonoPIN) 1 mg TID PO Last administered on 10/13/17at 19:43; Start 10/07/17 at 09:00 Diltiazem HCl (Cardizem 24hr Cd) 120 mg DAILY PO Last administered on at 07:43; Start 10/07/17 at 09:00 Divalproex Sodium (Depakote Sprinkles) 750 mg BID PO Last administered on at 10:18; Start 10/07/17 at 09:00; Stop 10/08/17 at 18:28; Status DC Furosemide (Lasix) 80 mg BID92 PO Last administered on 10/11/17at 13:49; Start 10/07/17 at 09:00; Stop 10/13/17 at 17:39; Status DC Non-Formulary Medication (Haloperidol Decanoate (Haldol Decanoate 100)) 450 mg [id number] IM ; Start 10/07/17 at 08:00; Stop 10/07/17 at 08:10; Status DC Non-Formulary Medication (Mag Hydrox/ Aluminum Hyd/ Simeth (Maalox Advanced Suspension)) 15 ml PRN AFTMEALHC PRN PO DYSPEPSIA; Start 10/07/17 at 08:00; Status UNV Non-Formulary Medication (Magnesium Hydroxide (Milk Of Magnesia)) 2,400 mg PRN QHS PRN PO CONSTIPATION; Start 10/07/17 at 08:00; Status UNV Magnesium Oxide (Magnesium Oxide) 400 mg BID PO Last administered on 10/13/17at 19:33; Start 10/07/17 at 09:00 Metformin HCl (Glucophage) 500 mg DAILYWBKFT PO Last administered on 10/08/17at 10:19; Start 10/07/17 at 08:00; Stop 10/08/17 at 19:23; Status DC Metolazone (Zaroxolyn) 5 mg DAILY PO Last administered on 10/12/17at 09:35; Start 10/07/17 at 09:00 Mirtazapine (Remeron) 15 mg QHS PO Last administered on 10/13/17at 19:33; Start 10/07/17 at 21:00 Pioglitazone HCl (Actos) 15 mg DAILY PO Last administered on 10/13/17at 07:42; Start 10/07/17 at 09:00 Haloperidol Decanoate (Haldol Decanoate Im Extended Release) 450 mg Q24D IM ; Start 10/18/17 at 08:00 Theophylline (Theophylline Extended Release) 200 mg BID PO Last administered on 10/13/17at 19:37; Start 10/07/17 at 09:00 Lactobacillus Rhamnosus (Culturelle) 1 cap BID PO Last administered on at 19:33; Start 10/07/17 at 21:00 Clonazepam (KlonoPIN) 1 mg STK-MED ONCE .ROUTE ; Start 10/07/17 at 09:00; Stop 10/08/17 at 11:51; Status DC Clonazepam (KlonoPIN) 1 mg STK-MED ONCE .ROUTE ; Start 10/07/17 at 09:00; Stop 10/08/17 at 11:51; Status DC Clonazepam (KlonoPIN) 1 mg STK-MED ONCE .ROUTE ; Start 10/07/17 at 09:00; Stop 10/08/17 at 11:51; Status DC Diltiazem HCl (Cardizem 24hr Cd) 120 mg STK-MED ONCE PO ; Start 10/07/17 at 09: 00; Stop 10/08/17 at 11:51; Status DC Divalproex Sodium (Depakote Sprinkles) 750 mg STK-MED ONCE PO ; Start 10/07/17 at 09:00; Stop 10/08/17 at 11:51; Status DC Divalproex Sodium (Depakote Sprinkles) 750 mg STK-MED ONCE PO ; Start 10/07/17 at 09:00; Stop 10/08/17 at 11:51; Status DC Furosemide (Lasix) 80 mg STK-MED ONCE .ROUTE ; Start 10/07/17 at 09:00; Stop at 11:51; Status DC Furosemide (Lasix) 80 mg STK-MED ONCE .ROUTE ; Start 10/07/17 at 09:00; Stop at 11:51; Status DC Magnesium Oxide (Magnesium Oxide) 400 mg STK-MED ONCE .ROUTE ; Start 10/07/17 at 09:00; Stop 10/08/17 at 11:51; Status DC Metolazone (Zaroxolyn) 5 mg STK-MED ONCE .ROUTE ; Start 10/07/17 at 09:00; Stop 10/08/17 at 11:51; Status DC Mirtazapine (Remeron) 15 mg STK-MED ONCE .ROUTE ; Start 10/07/17 at 09:00; Stop 10/08/17 at 11:51; Status DC Clonazepam (KlonoPIN) 1 mg STK-MED ONCE .ROUTE ; Start 10/08/17 at 09:00; Stop 10/08/17 at 11:52; Status DC Diltiazem HCl (Cardizem 24hr Cd) 120 mg STK-MED ONCE PO ; Start 10/08/17 at 09: 00; Stop 10/08/17 at 11:52; Status DC Divalproex Sodium (Depakote Sprinkles) 750 mg STK-MED ONCE PO ; Start 10/08/17 at 09:00; Stop 10/08/17 at 11:52; Status DC Furosemide (Lasix) 80 mg STK-MED ONCE .ROUTE ; Start 10/08/17 at 09:00; Stop at 11:52; Status DC Magnesium Oxide (Magnesium Oxide) 400 mg STK-MED ONCE .ROUTE ; Start 10/08/17 at 09:00; Stop 10/08/17 at 11:52; Status DC Metolazone (Zaroxolyn) 5 mg STK-MED ONCE .ROUTE ; Start 10/08/17 at 09:00; Stop 10/08/17 at 11:52; Status DC Divalproex Sodium (Depakote Sprinkles) 1,000 mg BID PO Last administered on at 07:51; Start 10/08/17 at 21:00; Stop 10/11/17 at 09:40; Status DC Metformin HCl (Glucophage) 500 mg BIDWMEALS PO Last administered on 10/13/17at 16:52; Start 10/09/17 at 08:00 Insulin Human Lispro (HumaLOG) 0-9 UNITS TIDWMEALS SQ Last administered on 10/13at 16:50; Start 10/09/17 at 08:00 Dextrose 12.5 gm PRN Q15MIN PRN IV SEE COMMENTS; Start 10/08/17 at 19:30 Insulin Glargine (Lantus) 8 units 1X ONCE SQ Last administered on 10/08/17at 22 :10; Start 10/08/17 at 22:00; Stop 10/08/17 at 22:01; Status DC Olanzapine (ZyPREXA ZYDIS) 2.5 mg PRN Q2HR PRN PO PSYCHOSIS; Start 10/09/17 at 18:45 Valproic Acid (Depakene) 1,000 mg BID PO Last administered on 10/13/17at 19:34; Start 10/11/17 at 09:30 Haloperidol Lactate (Haldol Oral) 5 mg DAILY PO Last administered on 10/13/17at 07:39; Start 10/12/17 at 09:00 Potassium Chloride (Klor-Con) 40 meq Q1HR PO Last administered on 10/12/17at 09: 19; Start 10/12/17 at 10:00; Stop 10/12/17 at 10:15; Status DC Potassium Chloride (KCl Oral Soln) 40 meq Q1HR PEG Last administered on at 12:29; Start 10/12/17 at 11:00; Stop 10/12/17 at 13:01; Status DC Divalproex Sodium (Depakote Sprinkles) 250 mg 1X ONCE PO Last administered on 10/12/17at 10:45; Start 10/12/17 at 10:45; Stop 10/12/17 at 10:46; Status DC Buspirone HCl (Buspar) 10 mg QID PO ; Start 10/12/17 at 21:00; Stop 10/12/17 at 21:00; Status DC Buspirone HCl (Buspar) 10 mg TID@0900,1300,1700 PO Last administered on at 16:52; Start 10/13/17 at 09:00 Active Scripts Active Reported Novolog Flexpen (Insulin Aspart) 100 Unit/1 Ml Insuln.pen 8 Unit SQ TIDBFRMEAL Theophylline Anhydrous 200 Mg Tab.er.12h 200 Mg PO BID Metolazone 5 Mg Tablet 5 Mg PO DAILY Metformin Hcl 500 Mg Tablet 500 Mg PO BIDWMEALS Metformin Hcl 500 Mg Tablet 500 Mg PO DAILY Geodon (Ziprasidone Mesylate) 20 Mg Vial 20 Mg IM DAILY Cardizem Tablet (Diltiazem Hcl) 120 Mg Tablet 120 Mg PO DAILY Amantadine (Amantadine Hcl) 100 Mg Tablet 100 Mg PO BID Actos (Pioglitazone Hcl) 15 Mg Tablet 15 Mg PO DAILY Buspirone Hcl 5 Mg Tablet 5 Mg PO QID Mirtazapine 15 Mg Tablet 15 Mg PO QHS Haldol Decanoate 100 (Haloperidol Decanoate) 100 Mg/1 Ml Ampul 450 Mg IM [id number] Depakote Sprinkle (Divalproex Sodium) 125 Mg Cap.sprink 750 Mg PO BID Klor-Con M20 (Potassium Chloride) 20 Meq Tab.er.prt 40 Meq PO BIDWMEALS Analgesic [facility] (Methyl Salicylate/Menthol) 28 Gm Oint...g. 1 [place] TP PRN QID PRN Magnesium Oxide 400 Mg Tablet 400 Mg PO BID Milk Of Magnesia (Magnesium Hydroxide) 2,400 Mg/10 Ml Oral.susp 2,400 Mg PO PRN QHS PRN Maalox Advanced Suspension (Mag Hydrox/Aluminum Hyd/Simeth) 355 Ml Oral.susp 15 Ml PO PRN AFTMEALHC PRN D3-50 (Cholecalciferol (Vitamin D3)) 50,000 Unit Capsule 50,000 Unit PO QTH Levemir Flextouch (Insulin Detemir) 100 Unit/1 Ml Insuln.pen 55 Unit SQ QHS Clonazepam 1 Mg Tablet 1 Mg PO TID Furosemide 40 Mg Tablet 80 Mg PO [id number] Hold for SBP less than 100. After held dose, reassess in 2 hours. If SBP is above threshold, administer dose as ordered. If SBP is below threshold, contact provider for additional instructions. I have reviewed the current psychotropics carefully including drug interactions. Risk benefit ratio favors no change other than as noted in my dictated progress note. Diagnosis: Problems: (1) Depression (2) Schizoaffective disorder (3) Anxiety disorder (4) Impulse control disorder (5) Schizoaffective disorder, chronic condition with acute exacerbation (6) Mental status change KALIN STARKS MD October 13, 2017 20:55
[2017-10-14 06:14] VITALS: BP 113/58
--- NOTE | 2017-10-14 07:58 | PN ---
DATE: 10/11/2017 This is a late entry of 10/11/2017, covers the elements not covered in my initial note 10/11/2017, met with the patient in the evening. Overall, the patient remains somewhat noncompliant with medications, takes Depakene and grape juice, had to be placed in the West hallway to remove her from stimuli due to her increased agitation. REVIEW OF SYSTEMS: Ambulation impaired, in wheelchair. No CV, , pulmonary, eye system symptoms on review. MENTAL STATUS EXAM: Oriented to herself. Insight, judgment, recent memory is impaired. Language function intact. Attention span short. Mood and affect remain somewhat anxious, labile. LABORATORY DATA: Reviewed. IMPRESSION: Unchanged from initial note. PLAN: Start Haldol liquid 5 mg daily. Change Depakote Sprinkles to Depakene with grape juice. Check CBC, CMP, valproic acid level and last checked valproic acid level was 40. KALIN STARKS MD DR: TRACIE/karli JOB#: [id number] / [id number]
[2017-10-14] MEDS: INSULIN LISPRO 300 UNITS/3 ML INSULN.PEN. SQ SCH ×3 (08:00→16:41)
[2017-10-14] MEDS: VALPROATE ACID 250 MG/5 ML ORAL SOLUTION PO SCH ×2 (08:03→20:20)
[2017-10-14] MEDS: HALOPERIDOL 10 MG/5 ML ORAL.CONC. PO SCH (08:03)
[2017-10-14] MEDS: LACTOBACILLUS RHAMNOSUS GG 1 CAPSULE. PO SCH ×2 (08:33→20:21)
[2017-10-14] MEDS: busPIRone 5 MG TABLET. PO SCH ×4 (08:33→20:21)
[2017-10-14] MEDS: MAGNESIUM OXIDE 400 MG TABLET PO SCH ×2 (08:33→20:21)
[2017-10-14] MEDS: metFORMIN 500 MG TABLET PO SCH ×3 (08:33→20:22)
[2017-10-14] MEDS: POTASSIUM CHLORIDE 20 MEQ TABLET.ER. PO SCH ×3 (08:33→20:21)
[2017-10-14] MEDS: PIOGLITAZONE 15 MG TABLET. PO SCH ×2 (08:33→20:21)
[2017-10-14] MEDS: clonazePAM 1 MG TABLET PO SCH ×3 (08:33→20:21)
[2017-10-14] MEDS: AMANTADINE HCL 100 MG CAPSULE PO SCH ×2 (08:36→20:25)
[2017-10-14] MEDS: metOLazone 5 MG TABLET PO SCH (08:37)
[2017-10-14] MEDS: THEOPHYLLINE ANHYDROUS 400 MG TABLET.ER. PO SCH ×2 (08:37→20:25)
--- NOTE | 2017-10-14 13:28 | PN ---
DATE: 10/12/2017 This is a late entry of 10/12/2017, covers the elements not covered in my initial note 10/12/2017. Met with the patient in the evening. The patient slept 7-1/4 hours. Potassium low at 2.5. Received supplement ____ to this, then repeat level potassium was 3.4. She was difficult taking her meds unless she was threatened with IV per nursing report. REVIEW OF SYSTEMS: No CV, , pulmonary, eye system symptoms on review. Gait unsteady, in wheelchair. MENTAL STATUS EXAM: Oriented to herself and situation. Speech coherent, has some latency. Abstraction fair, computation impaired, language function intact. Mood and affect, still somewhat labile. Valproic acid level on 10/12/2017 is 85. IMPRESSION: Schizoaffective disorder, bipolar type, mixed with psychotic features. PLAN: Increase BuSpar from 5 mg 4 times a day to 10 mg 3 times a day. Continue rest. MAN Mary STARKS MD DR: TRACIE/karli JOB#: [id number] / [id number]
[2017-10-14 16:24] VITALS: BP 115/55
[2017-10-14] MEDS: MIRTAZAPINE 15 MG TABLET PO SCH (20:25)
--- NOTE | 2017-10-14 20:57 | PDOC ---
Exam Note: [place] Note: Please also refer to the separate dictated note~for this date of service dictated separately.~Patient seen individually. Discussed the patient with Nursing staff reviewed the chart.~Reviewed interim history and current functioning. Reviewed vital signs,~Labs/ Radiology~and current medications noted below. Continue current treatment with the changes noted in the dictated addendum note Assessment: Vital Signs: Vital Signs Date Time Temp Pulse Resp B/P (MAP) Pulse Ox O2 Delivery O2 Flow Rate FiO2 10/14/17 20:22 72 115/55 10/14/17 16:24 97.6 16 95 10/12/17 07:55 Room Air 10/12/17 06:21 2.0 I&O Intake and Output 10/14/17 07:00 Intake Total 720 ml Balance 720 ml Intake Oral 720 ml # Voids 1 Labs: Laboratory Tests Test 10/14/17 07:40 10/14/17 11:07 10/14/17 19:16 Glucose (Fingerstick) 156 mg/dL (70-99) H 292 mg/dL (70-99) H 243 mg/dL (70-99) H Current Medications: Meds: Current Medications Sodium Chloride 1,000 ml @ 1,000 mls/hr 1X ONCE IV Last administered on at 00:40; Start 10/06/17 at 22:30; Stop 10/06/17 at 23:29; Status DC Ziprasidone (Geodon Im) 20 mg 1X ONCE IM Last administered on 10/07/17at 00:06 ; Start 10/06/17 at 22:30; Stop 10/06/17 at 22:31; Status DC Diphenhydramine HCl (Benadryl) 50 mg 1X ONCE IV ; Start 10/06/17 at 22:30; Stop 10/06/17 at 23:08; Status DC Lorazepam (Ativan) 2 mg 1X ONCE IV ; Start 10/06/17 at 22:30; Stop 10/06/17 at 23:08; Status DC Diphenhydramine HCl (Benadryl) 50 mg 1X ONCE IM Last administered on at 23:09; Start 10/06/17 at 23:15; Stop 10/06/17 at 23:16; Status DC Lorazepam (Ativan) 2 mg 1X ONCE IM Last administered on 10/06/17at 23:09; Start 10/06/17 at 23:15; Stop 10/06/17 at 23:16; Status DC Ziprasidone (Geodon Im) 20 mg 1X ONCE IM ; Start 10/07/17 at 00:00; Stop at 00:01; Status DC Lorazepam (Ativan) 2 mg 1X ONCE IM Last administered on 10/07/17at 00:06; Start 10/07/17 at 00:00; Stop 10/07/17 at 00:01; Status DC Ceftriaxone Sodium (Rocephin Im) 1 gm 1X ONCE IM Last administered on at 00:40; Start 10/07/17 at 00:30; Stop 10/07/17 at 00:31; Status DC Magnesium Hydroxide (Milk Of Magnesia) 2,400 mg 1X ONCE PO Last administered on 10/07/17at 02:27; Start 10/07/17 at 02:15; Stop 10/07/17 at 02:16; Status DC Potassium Chloride (Klor-Con) 40 meq 1X ONCE PO Last administered on at 02:06; Start 10/07/17 at 02:15; Stop 10/07/17 at 02:16; Status DC Cephalexin HCl (Keflex) 500 mg TID PO Last administered on 10/10/17at 14:18; Start 10/07/17 at 09:00; Stop 10/11/17 at 19:05; Status DC Acetaminophen (Tylenol) 650 mg PRN Q6HRS PRN PO PAIN / TEMP Last administered on 10/13/17at 19:43; Start 10/07/17 at 03:45 Multi-Ingredient Ointment (Analgesic Snyder) 1 guanaco PRN QID PRN TP MUSCLE PAIN; Start 10/07/17 at 03:45 Al Hydroxide/Mg Hydroxide (Mylanta Plus Xs) 15 ml PRN AFTMEALHC PRN PO DYSPEPSIA; Start 10/07/17 at 03:45 Magnesium Hydroxide (Milk Of Magnesia) 2,400 mg PRN QHS PRN PO CONSTIPATION; Start 10/07/17 at 03:45 Vitamin D (Vitamin D3) 50,000 unit QTH@0900 PO Last administered on 10/10/17at 10:53; Start 10/10/17 at 09:00 Multi-Ingredient Ointment (Analgesic Snyder) 1 guanaco PRN QID PRN TP MUSCLE PAIN; Start 10/07/17 at 08:00; Status UNV Potassium Chloride (Klor-Con) 40 meq BIDWMEALS PO Last administered on at 20:21; Start 10/07/17 at 08:00 Theophylline (Theodur) 200 mg BID PO ; Start 10/07/17 at 09:00; Stop 10/07/17 at 09:00; Status DC Amantadine HCl (Symmetrel) 100 mg BID PO Last administered on 10/14/17at 20:25; Start 10/07/17 at 09:00 Buspirone HCl (Buspar) 5 mg QID PO Last administered on 10/12/17 19:26; Start 10/07/17 at 09:00; Stop 10/12/17 at 19:48; Status DC Clonazepam (KlonoPIN) 1 mg TID PO Last administered on 10/14/17 20:21; Start 10/07/17 at 09:00 Diltiazem HCl (Cardizem 24hr Cd) 120 mg DAILY PO Last administered on at 20:22; Start 10/07/17 at 09:00 Divalproex Sodium (Depakote Sprinkles) 750 mg BID PO Last administered on at 10:18; Start 10/07/17 at 09:00; Stop 10/08/17 at 18:28; Status DC Furosemide (Lasix) 80 mg [id number] PO Last administered on 10/11/17at 13:49; Start 10/07/17 at 09:00; Stop 10/13/17 at 17:39; Status DC Non-Formulary Medication (Haloperidol Decanoate (Haldol Decanoate 100)) 450 mg [id number] IM ; Start 10/07/17 at 08:00; Stop 10/07/17 at 08:10; Status DC Non-Formulary Medication (Mag Hydrox/ Aluminum Hyd/ Simeth (Maalox Advanced Suspension)) 15 ml PRN AFTMEALHC PRN PO DYSPEPSIA; Start 10/07/17 at 08:00; Status UNV Non-Formulary Medication (Magnesium Hydroxide (Milk Of Magnesia)) 2,400 mg PRN QHS PRN PO CONSTIPATION; Start 10/07/17 at 08:00; Status UNV Magnesium Oxide (Magnesium Oxide) 400 mg BID PO Last administered on 10/14/17at 20:21; Start 10/07/17 at 09:00 Metformin HCl (Glucophage) 500 mg [id number] PO Last administered on 10/08/17at 10:19; Start 10/07/17 at 08:00; Stop 10/08/17 at 19:23; Status DC Metolazone (Zaroxolyn) 5 mg DAILY PO Last administered on 10/14/17at 08:37; Start 10/07/17 at 09:00 Mirtazapine (Remeron) 15 mg QHS PO Last administered on 10/14/17at 20:25; Start 10/07/17 at 21:00 Pioglitazone HCl (Actos) 15 mg DAILY PO Last administered on 10/14/17at 20:21; Start 10/07/17 at 09:00 Haloperidol Decanoate (Haldol Decanoate Im Extended Release) 450 mg Q24D IM ; Start 10/18/17 at 08:00 Theophylline (Theophylline Extended Release) 200 mg BID PO Last administered on 10/14/17at 20:25; Start 10/07/17 at 09:00 Lactobacillus Rhamnosus (Culturelle) 1 cap BID PO Last administered on at 20:21; Start 10/07/17 at 21:00 Clonazepam (KlonoPIN) 1 mg STK-MED ONCE .ROUTE ; Start 10/07/17 at 09:00; Stop 10/08/17 at 11:51; Status DC Clonazepam (KlonoPIN) 1 mg STK-MED ONCE .ROUTE ; Start 10/07/17 at 09:00; Stop 10/08/17 at 11:51; Status DC Clonazepam (KlonoPIN) 1 mg STK-MED ONCE .ROUTE ; Start 10/07/17 at 09:00; Stop 10/08/17 at 11:51; Status DC Diltiazem HCl (Cardizem 24hr Cd) 120 mg STK-MED ONCE PO ; Start 10/07/17 at 09: 00; Stop 10/08/17 at 11:51; Status DC Divalproex Sodium (Depakote Sprinkles) 750 mg STK-MED ONCE PO ; Start 10/07/17 at 09:00; Stop 10/08/17 at 11:51; Status DC Divalproex Sodium (Depakote Sprinkles) 750 mg STK-MED ONCE PO ; Start 10/07/17 at 09:00; Stop 10/08/17 at 11:51; Status DC Furosemide (Lasix) 80 mg STK-MED ONCE .ROUTE ; Start 10/07/17 at 09:00; Stop at 11:51; Status DC Furosemide (Lasix) 80 mg STK-MED ONCE .ROUTE ; Start 10/07/17 at 09:00; Stop at 11:51; Status DC Magnesium Oxide (Magnesium Oxide) 400 mg STK-MED ONCE .ROUTE ; Start 10/07/17 at 09:00; Stop 10/08/17 at 11:51; Status DC Metolazone (Zaroxolyn) 5 mg STK-MED ONCE .ROUTE ; Start 10/07/17 at 09:00; Stop 10/08/17 at 11:51; Status DC Mirtazapine (Remeron) 15 mg STK-MED ONCE .ROUTE ; Start 10/07/17 at 09:00; Stop 10/08/17 at 11:51; Status DC Clonazepam (KlonoPIN) 1 mg STK-MED ONCE .ROUTE ; Start 10/08/17 at 09:00; Stop 10/08/17 at 11:52; Status DC Diltiazem HCl (Cardizem 24hr Cd) 120 mg STK-MED ONCE PO ; Start 10/08/17 at 09: 00; Stop 10/08/17 at 11:52; Status DC Divalproex Sodium (Depakote Sprinkles) 750 mg STK-MED ONCE PO ; Start 10/08/17 at 09:00; Stop 10/08/17 at 11:52; Status DC Furosemide (Lasix) 80 mg STK-MED ONCE .ROUTE ; Start 10/08/17 at 09:00; Stop at 11:52; Status DC Magnesium Oxide (Magnesium Oxide) 400 mg STK-MED ONCE .ROUTE ; Start 10/08/17 at 09:00; Stop 10/08/17 at 11:52; Status DC Metolazone (Zaroxolyn) 5 mg STK-MED ONCE .ROUTE ; Start 10/08/17 at 09:00; Stop 10/08/17 at 11:52; Status DC Divalproex Sodium (Depakote Sprinkles) 1,000 mg BID PO Last administered on at 07:51; Start 10/08/17 at 21:00; Stop 10/11/17 at 09:40; Status DC Metformin HCl (Glucophage) 500 mg BIDWMEALS PO Last administered on 10/14/17at 20:22; Start 10/09/17 at 08:00 Insulin Human Lispro (HumaLOG) 0-9 UNITS TIDWMEALS SQ Last administered on 10/13at 16:50; Start 10/09/17 at 08:00 Dextrose 12.5 gm PRN Q15MIN PRN IV SEE COMMENTS; Start 10/08/17 at 19:30 Insulin Glargine (Lantus) 8 units 1X ONCE SQ Last administered on 10/08/17at 22 :10; Start 10/08/17 at 22:00; Stop 10/08/17 at 22:01; Status DC Olanzapine (ZyPREXA ZYDIS) 2.5 mg PRN Q2HR PRN PO PSYCHOSIS; Start 10/09/17 at 18:45 Valproic Acid (Depakene) 1,000 mg BID PO Last administered on 10/14/17at 20:20; Start 10/11/17 at 09:30 Haloperidol Lactate (Haldol Oral) 5 mg DAILY PO Last administered on 10/14/17at 08:03; Start 10/12/17 at 09:00 Potassium Chloride (Klor-Con) 40 meq Q1HR PO Last administered on 10/12/17at 09: 19; Start 10/12/17 at 10:00; Stop 10/12/17 at 10:15; Status DC Potassium Chloride (KCl Oral Soln) 40 meq Q1HR PEG Last administered on at 12:29; Start 10/12/17 at 11:00; Stop 10/12/17 at 13:01; Status DC Divalproex Sodium (Depakote Sprinkles) 250 mg 1X ONCE PO Last administered on 10/12/17at 10:45; Start 10/12/17 at 10:45; Stop 10/12/17 at 10:46; Status DC Buspirone HCl (Buspar) 10 mg QID PO ; Start 10/12/17 at 21:00; Stop 10/12/17 at 21:00; Status DC Buspirone HCl (Buspar) 10 mg TID@0900,1300,1700 PO Last administered on at 20:21; Start 10/13/17 at 09:00 Active Scripts Active Reported Novolog Flexpen (Insulin Aspart) 100 Unit/1 Ml Insuln.pen 8 Unit SQ TIDBFRMEAL Theophylline Anhydrous 200 Mg Tab.er.12h 200 Mg PO BID Metolazone 5 Mg Tablet 5 Mg PO DAILY Metformin Hcl 500 Mg Tablet 500 Mg PO BIDWMEALS Metformin Hcl 500 Mg Tablet 500 Mg PO DAILY Geodon (Ziprasidone Mesylate) 20 Mg Vial 20 Mg IM DAILY Cardizem Tablet (Diltiazem Hcl) 120 Mg Tablet 120 Mg PO DAILY Amantadine (Amantadine Hcl) 100 Mg Tablet 100 Mg PO BID Actos (Pioglitazone Hcl) 15 Mg Tablet 15 Mg PO DAILY Buspirone Hcl 5 Mg Tablet 5 Mg PO QID Mirtazapine 15 Mg Tablet 15 Mg PO QHS Haldol Decanoate 100 (Haloperidol Decanoate) 100 Mg/1 Ml Ampul 450 Mg IM [id number] Depakote Sprinkle (Divalproex Sodium) 125 Mg Cap.sprink 750 Mg PO BID Klor-Con M20 (Potassium Chloride) 20 Meq Tab.er.prt 40 Meq PO BIDWMEALS Analgesic Snyder (Methyl Salicylate/Menthol) 28 Gm Oint...g. 1 Guanaco TP PRN QID PRN Magnesium Oxide 400 Mg Tablet 400 Mg PO BID Milk Of Magnesia (Magnesium Hydroxide) 2,400 Mg/10 Ml Oral.susp 2,400 Mg PO PRN QHS PRN Maalox Advanced Suspension (Mag Hydrox/Aluminum Hyd/Simeth) 355 Ml Oral.susp 15 Ml PO PRN AFTMEALHC PRN D3-50 (Cholecalciferol (Vitamin D3)) 50,000 Unit Capsule 50,000 Unit PO QTH Levemir Flextouch (Insulin Detemir) 100 Unit/1 Ml Insuln.pen 55 Unit SQ QHS Clonazepam 1 Mg Tablet 1 Mg PO TID Furosemide 40 Mg Tablet 80 Mg PO [id number] Hold for SBP less than 100. After held dose, reassess in 2 hours. If SBP is above threshold, administer dose as ordered. If SBP is below threshold, contact provider for additional instructions. I have reviewed the current psychotropics carefully including drug interactions. Risk benefit ratio favors no change other than as noted in my dictated progress note. Diagnosis: Problems: (1) Depression (2) Schizoaffective disorder (3) Anxiety disorder (4) Impulse control disorder (5) Schizoaffective disorder, chronic condition with acute exacerbation (6) Mental status change KALIN STARKS MD October 14, 2017 20:57
--- NOTE | 2017-10-15 00:30 | PN ---
DATE: 10/13/2017 PSYCHIATRIC PROGRESS NOTE This is a late entry for 10/13/2017, covers elements not covered in my initial note of 10/13/2017. SUBJECTIVE: I met with the patient in the evening. The patient slept 5 hours previous evening. Refuses potassium. Quite labile, anxious, paranoid at times. Repeat potassium level is 3.4 which is improved. She is noncompliant with medications. REVIEW OF SYSTEMS: Ambulation impaired, in wheelchair. No CV, , pulmonary, eye, ENT system symptoms on review. Reliability poor. MENTAL STATUS EXAM: Speech moderate latency, often. Abstraction fair, computation impaired, language function intact. Mood and affect remain somewhat withdrawn, labile at other times, paranoid. No suicidal or homicidal ideation. LABORATORY DATA: Reviewed. IMPRESSION: Schizoaffective disorder, bipolar type, mixed with psychotic features; cognitive disorder, unspecified. Rest unchanged from initial note. PLAN: Continue psychotropics mentioned in my initial note. Check labs level on the valproic acid and adjust Depakote to reach a therapeutic level. MAN Mary STARKS MD DR: TRACIE/karli JOB#: [id number] / [id number]
--- NOTE | 2017-10-15 03:56 | PN ---
DATE: 10/14/2017 SUBJECTIVE: The patient was seen today, met with the staff, chart reviewed and also covering for Dr. Feliz. The patient apparently is refusing the meds. The patient is also very paranoid, suspicious, and combative with the staff and peers. OBSERVATION: VITAL SIGNS: Temperature 97.3, blood pressure 113/58, pulse 84, respirations 20, and O2 sat 94%. Slept about 7 hours last night. Her appetite has improved. The patient also has multiple physical problems including diabetes, high blood pressure, COPD, also sleep apnea. The patient is also very difficult to redirect. MEDICATIONS: The patient's medications were reviewed. Currently on Haldol decanoate 450 mg IM q.24 days, BuSpar 10 mg t.i.d., Haldol 5 mg daily, valproic acid 1000 mg b.i.d., olanzapine 2.5 mg q.2 hours p.r.n., mirtazapine 15 mg at night, also ____ 1 mg t.i.d. p.o. LABORATORY DATA: The patient's lab reviewed. Glucose fingerstick was 292. ASSESSMENT: Schizoaffective disorder, bipolar type with psychotic features; impulse control disorder, unspecified; cognitive disorder, mild. PLAN: Continue with the treatment. COY KELLEY MD DR: KILEY/karli JOB#: [id number] / [id number]
[2017-10-15 06:43] VITALS: BP 103/59
[2017-10-15] MEDS: busPIRone 5 MG TABLET. PO SCH ×2 (07:44→14:50)
[2017-10-15] MEDS: HALOPERIDOL 10 MG/5 ML ORAL.CONC. PO SCH (07:45)
[2017-10-15] MEDS: VALPROATE ACID 250 MG/5 ML ORAL SOLUTION PO SCH ×2 (07:45→19:27)
[2017-10-15] MEDS: LACTOBACILLUS RHAMNOSUS GG 1 CAPSULE. PO SCH ×2 (07:46→19:27)
[2017-10-15] MEDS: metFORMIN 500 MG TABLET PO SCH (07:46)
[2017-10-15] MEDS: MAGNESIUM OXIDE 400 MG TABLET PO SCH ×2 (07:46→19:27)
[2017-10-15] MEDS: POTASSIUM CHLORIDE 20 MEQ TABLET.ER. PO SCH (07:47)
[2017-10-15] MEDS: metOLazone 5 MG TABLET PO SCH (07:49)
[2017-10-15] MEDS: AMANTADINE HCL 100 MG CAPSULE PO SCH ×2 (07:50→19:31)
[2017-10-15] MEDS: clonazePAM 1 MG TABLET PO SCH ×3 (09:25→19:27)
[2017-10-15] MEDS: INSULIN LISPRO 300 UNITS/3 ML INSULN.PEN. SQ SCH ×3 (09:27→17:00)
[2017-10-15] MEDS: THEOPHYLLINE ANHYDROUS 400 MG TABLET.ER. PO SCH ×2 (10:02→19:30)
[2017-10-15 16:57] VITALS: BP 111/56
[2017-10-15] MEDS: MIRTAZAPINE 15 MG TABLET PO SCH (19:27)
[2017-10-16] MEDS: INSULIN LISPRO 300 UNITS/3 ML INSULN.PEN. SQ SCH ×3 (07:54→17:18)
[2017-10-16] MEDS: PIOGLITAZONE 15 MG TABLET. PO SCH (07:58)
[2017-10-16] MEDS: LACTOBACILLUS RHAMNOSUS GG 1 CAPSULE. PO SCH ×2 (07:58→20:49)
[2017-10-16] MEDS: POTASSIUM CHLORIDE 20 MEQ TABLET.ER. PO SCH ×2 (07:58→17:15)
[2017-10-16] MEDS: MAGNESIUM OXIDE 400 MG TABLET PO SCH ×2 (07:58→20:50)
[2017-10-16] MEDS: VALPROATE ACID 250 MG/5 ML ORAL SOLUTION PO SCH ×2 (07:58→20:49)
[2017-10-16] MEDS: busPIRone 5 MG TABLET. PO SCH ×3 (07:58→17:15)
[2017-10-16] MEDS: metFORMIN 500 MG TABLET PO SCH ×2 (07:58→17:15)
[2017-10-16] MEDS: HALOPERIDOL 10 MG/5 ML ORAL.CONC. PO SCH (08:03)
[2017-10-16] MEDS: clonazePAM 1 MG TABLET PO SCH ×3 (08:03→20:51)
[2017-10-16] MEDS: THEOPHYLLINE ANHYDROUS 400 MG TABLET.ER. PO SCH ×2 (08:03→20:51)
[2017-10-16] MEDS: metOLazone 5 MG TABLET PO SCH (08:03)
[2017-10-16] MEDS: AMANTADINE HCL 100 MG CAPSULE PO SCH ×2 (08:04→20:51)
[2017-10-16 09:28] VITALS: BP 145/66
[2017-10-16 16:50] VITALS: BP 102/57
--- NOTE | 2017-10-16 20:19 | PDOC ---
Exam Note: Napoleon Note: Late entry for date of service October 15, 2017. Please also refer to the separate dictated note~for this date of service dictated separately.~Patient seen individually. Discussed the patient with Nursing staff reviewed the chart.~ Reviewed interim history and current functioning. Reviewed vital signs,~Labs/ Radiology~and current medications noted below. Continue current treatment with the changes noted in the dictated addendum note Assessment: Vital Signs: VS - Last 72 Hours, by Label Date Time Temp Pulse Resp B/P (MAP) Pulse Ox O2 Delivery O2 Flow Rate FiO2 10/16/17 16:50 97.0 65 18 102/57 (72) 91 10/16/17 09:28 80 145/66 (92) 10/16/17 08:04 60 111/56 10/15/17 16:57 97.8 60 18 111/56 (74) 96 Room Air 10/15/17 06:43 98.5 70 18 103/59 (74) 94 10/14/17 20:22 72 115/55 10/14/17 16:24 97.6 72 16 115/55 (75) 95 10/14/17 08:33 84 113/58 10/14/17 06:14 97.3 84 22 113/58 (76) 94 Vital Signs Date Time Temp Pulse Resp B/P (MAP) Pulse Ox O2 Delivery O2 Flow Rate FiO2 10/16/17 16:50 97.0 65 18 102/57 (72) 91 10/15/17 16:57 Room Air 10/12/17 06:21 2.0 I&O Intake and Output 10/16/17 07:00 Intake Total 960 ml Balance 960 ml Intake Oral 960 ml Labs: Laboratory Tests Test 10/16/17 07:44 10/16/17 11:24 10/16/17 16:18 10/16/17 19:30 Glucose (Fingerstick) 126 mg/dL (70-99) H 179 mg/dL (70-99) H 152 mg/dL (70-99) H 156 mg/dL (70-99) H Current Medications: Meds: Current Medications Sodium Chloride 1,000 ml @ 1,000 mls/hr 1X ONCE IV Last administered on at 00:40; Start 10/06/17 at 22:30; Stop 10/06/17 at 23:29; Status DC Ziprasidone (Geodon Im) 20 mg 1X ONCE IM Last administered on 10/07/17at 00:06 ; Start 10/06/17 at 22:30; Stop 10/06/17 at 22:31; Status DC Diphenhydramine HCl (Benadryl) 50 mg 1X ONCE IV ; Start 10/06/17 at 22:30; Stop 10/06/17 at 23:08; Status DC Lorazepam (Ativan) 2 mg 1X ONCE IV ; Start 10/06/17 at 22:30; Stop 10/06/17 at 23:08; Status DC Diphenhydramine HCl (Benadryl) 50 mg 1X ONCE IM Last administered on at 23:09; Start 10/06/17 at 23:15; Stop 10/06/17 at 23:16; Status DC Lorazepam (Ativan) 2 mg 1X ONCE IM Last administered on 10/06/17at 23:09; Start 10/06/17 at 23:15; Stop 10/06/17 at 23:16; Status DC Ziprasidone (Geodon Im) 20 mg 1X ONCE IM ; Start 10/07/17 at 00:00; Stop at 00:01; Status DC Lorazepam (Ativan) 2 mg 1X ONCE IM Last administered on 10/07/17at 00:06; Start 10/07/17 at 00:00; Stop 10/07/17 at 00:01; Status DC Ceftriaxone Sodium (Rocephin Im) 1 gm 1X ONCE IM Last administered on at 00:40; Start 10/07/17 at 00:30; Stop 10/07/17 at 00:31; Status DC Magnesium Hydroxide (Milk Of Magnesia) 2,400 mg 1X ONCE PO Last administered on 10/07/17at 02:27; Start 10/07/17 at 02:15; Stop 10/07/17 at 02:16; Status DC Potassium Chloride (Klor-Con) 40 meq 1X ONCE PO Last administered on at 02:06; Start 10/07/17 at 02:15; Stop 10/07/17 at 02:16; Status DC Cephalexin HCl (Keflex) 500 mg TID PO Last administered on 10/10/17at 14:18; Start 10/07/17 at 09:00; Stop 10/11/17 at 19:05; Status DC Acetaminophen (Tylenol) 650 mg PRN Q6HRS PRN PO PAIN / TEMP Last administered on 10/13/17at 19:43; Start 10/07/17 at 03:45 Multi-Ingredient Ointment (Analgesic [place]) 1 guanaco PRN QID PRN TP MUSCLE PAIN; Start 10/07/17 at 03:45 Al Hydroxide/Mg Hydroxide (Mylanta Plus Xs) 15 ml PRN AFTMEALHC PRN PO DYSPEPSIA; Start 10/07/17 at 03:45 Magnesium Hydroxide (Milk Of Magnesia) 2,400 mg PRN QHS PRN PO CONSTIPATION; Start 10/07/17 at 03:45 Vitamin D (Vitamin D3) 50,000 unit QTH@0900 PO Last administered on 10/10/17at 10:53; Start 10/10/17 at 09:00 Multi-Ingredient Ointment (Analgesic [place]) 1 guanaco PRN QID PRN TP MUSCLE PAIN; Start 10/07/17 at 08:00; Status UNV Potassium Chloride (Klor-Con) 40 meq BIDWMEALS PO Last administered on at 17:15; Start 10/07/17 at 08:00 Theophylline (Theodur) 200 mg BID PO ; Start 10/07/17 at 09:00; Stop 10/07/17 at 09:00; Status DC Amantadine HCl (Symmetrel) 100 mg BID PO Last administered on 10/16/17 08:04; Start 10/07/17 at 09:00 Buspirone HCl (Buspar) 5 mg QID PO Last administered on 10/12/17at 19:26; Start 10/07/17 at 09:00; Stop 10/12/17 at 19:48; Status DC Clonazepam (KlonoPIN) 1 mg TID PO Last administered on 10/16/17at 13:14; Start 10/07/17 at 09:00 Diltiazem HCl (Cardizem 24hr Cd) 120 mg DAILY PO Last administered on at 08:04; Start 10/07/17 at 09:00 Divalproex Sodium (Depakote Sprinkles) 750 mg BID PO Last administered on at 10:18; Start 10/07/17 at 09:00; Stop 10/08/17 at 18:28; Status DC Furosemide (Lasix) 80 mg [id number] PO Last administered on 10/11/17at 13:49; Start 10/07/17 at 09:00; Stop 10/13/17 at 17:39; Status DC Non-Formulary Medication (Haloperidol Decanoate (Haldol Decanoate 100)) 450 mg [id number] IM ; Start 10/07/17 at 08:00; Stop 10/07/17 at 08:10; Status DC Non-Formulary Medication (Mag Hydrox/ Aluminum Hyd/ Simeth (Maalox Advanced Suspension)) 15 ml PRN AFTMEALHC PRN PO DYSPEPSIA; Start 10/07/17 at 08:00; Status UNV Non-Formulary Medication (Magnesium Hydroxide (Milk Of Magnesia)) 2,400 mg PRN QHS PRN PO CONSTIPATION; Start 10/07/17 at 08:00; Status UNV Magnesium Oxide (Magnesium Oxide) 400 mg BID PO Last administered on 10/16/17at 07:58; Start 10/07/17 at 09:00 Metformin HCl (Glucophage) 500 mg DAILYWBKFT PO Last administered on 10/08/17at 10:19; Start 10/07/17 at 08:00; Stop 10/08/17 at 19:23; Status DC Metolazone (Zaroxolyn) 5 mg DAILY PO Last administered on 10/16/17at 08:03; Start 10/07/17 at 09:00 Mirtazapine (Remeron) 15 mg QHS PO Last administered on 10/15/17at 19:27; Start 10/07/17 at 21:00 Pioglitazone HCl (Actos) 15 mg DAILY PO Last administered on 10/16/17at 07:58; Start 10/07/17 at 09:00 Haloperidol Decanoate (Haldol Decanoate Im Extended Release) 450 mg Q24D IM ; Start 10/18/17 at 08:00 Theophylline (Theophylline Extended Release) 200 mg BID PO Last administered on 10/16/17at 08:03; Start 10/07/17 at 09:00 Lactobacillus Rhamnosus (Culturelle) 1 cap BID PO Last administered on at 07:58; Start 10/07/17 at 21:00 Clonazepam (KlonoPIN) 1 mg STK-MED ONCE .ROUTE ; Start 10/07/17 at 09:00; Stop 10/08/17 at 11:51; Status DC Clonazepam (KlonoPIN) 1 mg STK-MED ONCE .ROUTE ; Start 10/07/17 at 09:00; Stop 10/08/17 at 11:51; Status DC Clonazepam (KlonoPIN) 1 mg STK-MED ONCE .ROUTE ; Start 10/07/17 at 09:00; Stop 10/08/17 at 11:51; Status DC Diltiazem HCl (Cardizem 24hr Cd) 120 mg STK-MED ONCE PO ; Start 10/07/17 at 09: 00; Stop 10/08/17 at 11:51; Status DC Divalproex Sodium (Depakote Sprinkles) 750 mg STK-MED ONCE PO ; Start 10/07/17 at 09:00; Stop 10/08/17 at 11:51; Status DC Divalproex Sodium (Depakote Sprinkles) 750 mg STK-MED ONCE PO ; Start 10/07/17 at 09:00; Stop 10/08/17 at 11:51; Status DC Furosemide (Lasix) 80 mg STK-MED ONCE .ROUTE ; Start 10/07/17 at 09:00; Stop at 11:51; Status DC Furosemide (Lasix) 80 mg STK-MED ONCE .ROUTE ; Start 10/07/17 at 09:00; Stop at 11:51; Status DC Magnesium Oxide (Magnesium Oxide) 400 mg STK-MED ONCE .ROUTE ; Start 10/07/17 at 09:00; Stop 10/08/17 at 11:51; Status DC Metolazone (Zaroxolyn) 5 mg STK-MED ONCE .ROUTE ; Start 10/07/17 at 09:00; Stop 10/08/17 at 11:51; Status DC Mirtazapine (Remeron) 15 mg STK-MED ONCE .ROUTE ; Start 10/07/17 at 09:00; Stop 10/08/17 at 11:51; Status DC Clonazepam (KlonoPIN) 1 mg STK-MED ONCE .ROUTE ; Start 10/08/17 at 09:00; Stop 10/08/17 at 11:52; Status DC Diltiazem HCl (Cardizem 24hr Cd) 120 mg STK-MED ONCE PO ; Start 10/08/17 at 09: 00; Stop 10/08/17 at 11:52; Status DC Divalproex Sodium (Depakote Sprinkles) 750 mg STK-MED ONCE PO ; Start 10/08/17 at 09:00; Stop 10/08/17 at 11:52; Status DC Furosemide (Lasix) 80 mg STK-MED ONCE .ROUTE ; Start 10/08/17 at 09:00; Stop at 11:52; Status DC Magnesium Oxide (Magnesium Oxide) 400 mg STK-MED ONCE .ROUTE ; Start 10/08/17 at 09:00; Stop 10/08/17 at 11:52; Status DC Metolazone (Zaroxolyn) 5 mg STK-MED ONCE .ROUTE ; Start 10/08/17 at 09:00; Stop 10/08/17 at 11:52; Status DC Divalproex Sodium (Depakote Sprinkles) 1,000 mg BID PO Last administered on at 07:51; Start 10/08/17 at 21:00; Stop 10/11/17 at 09:40; Status DC Metformin HCl (Glucophage) 500 mg BIDWMEALS PO Last administered on 10/16/17at 17:15; Start 10/09/17 at 08:00 Insulin Human Lispro (HumaLOG) 0-9 UNITS TIDWMEALS SQ Last administered on 10/16at 17:18; Start 10/09/17 at 08:00 Dextrose 12.5 gm PRN Q15MIN PRN IV SEE COMMENTS; Start 10/08/17 at 19:30 Insulin Glargine (Lantus) 8 units 1X ONCE SQ Last administered on 10/08/17at 22 :10; Start 10/08/17 at 22:00; Stop 10/08/17 at 22:01; Status DC Olanzapine (ZyPREXA ZYDIS) 2.5 mg PRN Q2HR PRN PO PSYCHOSIS; Start 10/09/17 at 18:45 Valproic Acid (Depakene) 1,000 mg BID PO Last administered on 10/16/17at 07:58; Start 10/11/17 at 09:30 Haloperidol Lactate (Haldol Oral) 5 mg DAILY PO Last administered on 10/15/17at 07:45; Start 10/12/17 at 09:00; Stop 10/15/17 at 18:51; Status DC Potassium Chloride (Klor-Con) 40 meq Q1HR PO Last administered on 10/12/17at 09: 19; Start 10/12/17 at 10:00; Stop 10/12/17 at 10:15; Status DC Potassium Chloride (KCl Oral Soln) 40 meq Q1HR PEG Last administered on at 12:29; Start 10/12/17 at 11:00; Stop 10/12/17 at 13:01; Status DC Divalproex Sodium (Depakote Sprinkles) 250 mg 1X ONCE PO Last administered on 10/12/17at 10:45; Start 10/12/17 at 10:45; Stop 10/12/17 at 10:46; Status DC Buspirone HCl (Buspar) 10 mg QID PO ; Start 10/12/17 at 21:00; Stop 10/12/17 at 21:00; Status DC Buspirone HCl (Buspar) 10 mg TID@0900,1300,1700 PO Last administered on at 17:15; Start 10/13/17 at 09:00; Stop 10/16/17 at 18:36; Status DC Haloperidol Lactate (Haldol Oral) 7.5 mg DAILY PO Last administered on at 08:03; Start 10/16/17 at 09:00 Trazodone HCl (Desyrel) 50 mg PRN QHS PRN PO insomnia ; Start 10/16/17 at 21:00 Buspirone HCl (Buspar) 10 mg BID@1300,1700 PO ; Start 10/17/17 at 13:00 Buspirone HCl (Buspar) 20 mg DAILY PO ; Start 10/17/17 at 09:00 Active Scripts Active Reported Novolog Flexpen (Insulin Aspart) 100 Unit/1 Ml Insuln.pen 8 Unit SQ TIDBFRMEAL Theophylline Anhydrous 200 Mg Tab.er.12h 200 Mg PO BID Metolazone 5 Mg Tablet 5 Mg PO DAILY Metformin Hcl 500 Mg Tablet 500 Mg PO BIDWMEALS Metformin Hcl 500 Mg Tablet 500 Mg PO DAILY Geodon (Ziprasidone Mesylate) 20 Mg Vial 20 Mg IM DAILY Cardizem Tablet (Diltiazem Hcl) 120 Mg Tablet 120 Mg PO DAILY Amantadine (Amantadine Hcl) 100 Mg Tablet 100 Mg PO BID Actos (Pioglitazone Hcl) 15 Mg Tablet 15 Mg PO DAILY Buspirone Hcl 5 Mg Tablet 5 Mg PO QID Mirtazapine 15 Mg Tablet 15 Mg PO QHS Haldol Decanoate 100 (Haloperidol Decanoate) 100 Mg/1 Ml Ampul 450 Mg IM [id number] Depakote Sprinkle (Divalproex Sodium) 125 Mg Cap.sprink 750 Mg PO BID Klor-Con M20 (Potassium Chloride) 20 Meq Tab.er.prt 40 Meq PO BIDWMEALS Analgesic [place] (Methyl Salicylate/Menthol) 28 Gm Oint...g. 1 [place] TP PRN QID PRN Magnesium Oxide 400 Mg Tablet 400 Mg PO BID Milk Of Magnesia (Magnesium Hydroxide) 2,400 Mg/10 Ml Oral.susp 2,400 Mg PO PRN QHS PRN Maalox Advanced Suspension (Mag Hydrox/Aluminum Hyd/Simeth) 355 Ml Oral.susp 15 Ml PO PRN AFTMEALHC PRN D3-50 (Cholecalciferol (Vitamin D3)) 50,000 Unit Capsule 50,000 Unit PO QTH Levemir Flextouch (Insulin Detemir) 100 Unit/1 Ml Insuln.pen 55 Unit SQ QHS Clonazepam 1 Mg Tablet 1 Mg PO TID Furosemide 40 Mg Tablet 80 Mg PO [id number] Hold for SBP less than 100. After held dose, reassess in 2 hours. If SBP is above threshold, administer dose as ordered. If SBP is below threshold, contact provider for additional instructions. I have reviewed the current psychotropics carefully including drug interactions. Risk benefit ratio favors no change other than as noted in my dictated progress note. Diagnosis: Problems: (1) Depression (2) Schizoaffective disorder (3) Anxiety disorder (4) Impulse control disorder (5) Schizoaffective disorder, chronic condition with acute exacerbation (6) Mental status change KALIN STARKS MD October 16, 2017 20:19
--- NOTE | 2017-10-16 20:42 | PDOC ---
Exam Note: Napoleon Note: Please also refer to the separate dictated note~for this date of service dictated separately.~Patient seen individually. Discussed the patient with Nursing staff reviewed the chart.~Reviewed interim history and current functioning. Reviewed vital signs,~Labs/ Radiology~and current medications noted below. Continue current treatment with the changes noted in the dictated addendum note Assessment: Vital Signs: Vital Signs Date Time Temp Pulse Resp B/P (MAP) Pulse Ox O2 Delivery O2 Flow Rate FiO2 10/16/17 16:50 97.0 65 18 102/57 (72) 91 10/15/17 16:57 Room Air 10/12/17 06:21 2.0 I&O Intake and Output 10/16/17 07:00 Intake Total 960 ml Balance 960 ml Intake Oral 960 ml Labs: Laboratory Tests Test 10/16/17 07:44 10/16/17 11:24 10/16/17 16:18 10/16/17 19:30 Glucose (Fingerstick) 126 mg/dL (70-99) H 179 mg/dL (70-99) H 152 mg/dL (70-99) H 156 mg/dL (70-99) H Current Medications: Meds: Current Medications Sodium Chloride 1,000 ml @ 1,000 mls/hr 1X ONCE IV Last administered on at 00:40; Start 10/06/17 at 22:30; Stop 10/06/17 at 23:29; Status DC Ziprasidone (Geodon Im) 20 mg 1X ONCE IM Last administered on 10/07/17at 00:06 ; Start 10/06/17 at 22:30; Stop 10/06/17 at 22:31; Status DC Diphenhydramine HCl (Benadryl) 50 mg 1X ONCE IV ; Start 10/06/17 at 22:30; Stop 10/06/17 at 23:08; Status DC Lorazepam (Ativan) 2 mg 1X ONCE IV ; Start 10/06/17 at 22:30; Stop 10/06/17 at 23:08; Status DC Diphenhydramine HCl (Benadryl) 50 mg 1X ONCE IM Last administered on at 23:09; Start 10/06/17 at 23:15; Stop 10/06/17 at 23:16; Status DC Lorazepam (Ativan) 2 mg 1X ONCE IM Last administered on 10/06/17at 23:09; Start 10/06/17 at 23:15; Stop 10/06/17 at 23:16; Status DC Ziprasidone (Geodon Im) 20 mg 1X ONCE IM ; Start 10/07/17 at 00:00; Stop at 00:01; Status DC Lorazepam (Ativan) 2 mg 1X ONCE IM Last administered on 10/07/17at 00:06; Start 10/07/17 at 00:00; Stop 10/07/17 at 00:01; Status DC Ceftriaxone Sodium (Rocephin Im) 1 gm 1X ONCE IM Last administered on at 00:40; Start 10/07/17 at 00:30; Stop 10/07/17 at 00:31; Status DC Magnesium Hydroxide (Milk Of Magnesia) 2,400 mg 1X ONCE PO Last administered on 10/07/17at 02:27; Start 10/07/17 at 02:15; Stop 10/07/17 at 02:16; Status DC Potassium Chloride (Klor-Con) 40 meq 1X ONCE PO Last administered on at 02:06; Start 10/07/17 at 02:15; Stop 10/07/17 at 02:16; Status DC Cephalexin HCl (Keflex) 500 mg TID PO Last administered on 10/10/17at 14:18; Start 10/07/17 at 09:00; Stop 10/11/17 at 19:05; Status DC Acetaminophen (Tylenol) 650 mg PRN Q6HRS PRN PO PAIN / TEMP Last administered on 10/13/17at 19:43; Start 10/07/17 at 03:45 Multi-Ingredient Ointment (Analgesic [place]) 1 guanaco PRN QID PRN TP MUSCLE PAIN; Start 10/07/17 at 03:45 Al Hydroxide/Mg Hydroxide (Mylanta Plus Xs) 15 ml PRN AFTMEALHC PRN PO DYSPEPSIA; Start 10/07/17 at 03:45 Magnesium Hydroxide (Milk Of Magnesia) 2,400 mg PRN QHS PRN PO CONSTIPATION; Start 10/07/17 at 03:45 Vitamin D (Vitamin D3) 50,000 unit QTH@0900 PO Last administered on 10/10/17at 10:53; Start 10/10/17 at 09:00 Multi-Ingredient Ointment (Analgesic [place]) 1 guanaco PRN QID PRN TP MUSCLE PAIN; Start 10/07/17 at 08:00; Status UNV Potassium Chloride (Klor-Con) 40 meq BIDWMEALS PO Last administered on 17:15; Start 10/07/17 at 08:00 Theophylline (Theodur) 200 mg BID PO ; Start 10/07/17 at 09:00; Stop 10/07/17 at 09:00; Status DC Amantadine HCl (Symmetrel) 100 mg BID PO Last administered on 10/16/17 08:04; Start 10/07/17 at 09:00 Buspirone HCl (Buspar) 5 mg QID PO Last administered on 10/12/17at 19:26; Start 10/07/17 at 09:00; Stop 10/12/17 at 19:48; Status DC Clonazepam (KlonoPIN) 1 mg TID PO Last administered on 10/16/17at 13:14; Start 10/07/17 at 09:00 Diltiazem HCl (Cardizem 24hr Cd) 120 mg DAILY PO Last administered on 08:04; Start 10/07/17 at 09:00 Divalproex Sodium (Depakote Sprinkles) 750 mg BID PO Last administered on at 10:18; Start 10/07/17 at 09:00; Stop 10/08/17 at 18:28; Status DC Furosemide (Lasix) 80 mg BID92 PO Last administered on 10/11/17at 13:49; Start 10/07/17 at 09:00; Stop 10/13/17 at 17:39; Status DC Non-Formulary Medication (Haloperidol Decanoate (Haldol Decanoate 100)) 450 mg [id number] IM ; Start 10/07/17 at 08:00; Stop 10/07/17 at 08:10; Status DC Non-Formulary Medication (Mag Hydrox/ Aluminum Hyd/ Simeth (Maalox Advanced Suspension)) 15 ml PRN AFTMEALHC PRN PO DYSPEPSIA; Start 10/07/17 at 08:00; Status UNV Non-Formulary Medication (Magnesium Hydroxide (Milk Of Magnesia)) 2,400 mg PRN QHS PRN PO CONSTIPATION; Start 10/07/17 at 08:00; Status UNV Magnesium Oxide (Magnesium Oxide) 400 mg BID PO Last administered on 10/16/17at 07:58; Start 10/07/17 at 09:00 Metformin HCl (Glucophage) 500 mg DAILYWBKFT PO Last administered on 10/08/17at 10:19; Start 10/07/17 at 08:00; Stop 10/08/17 at 19:23; Status DC Metolazone (Zaroxolyn) 5 mg DAILY PO Last administered on 10/16/17 08:03; Start 10/07/17 at 09:00 Mirtazapine (Remeron) 15 mg QHS PO Last administered on 10/15/17at 19:27; Start 10/07/17 at 21:00 Pioglitazone HCl (Actos) 15 mg DAILY PO Last administered on 10/16/17at 07:58; Start 10/07/17 at 09:00 Haloperidol Decanoate (Haldol Decanoate Im Extended Release) 450 mg Q24D IM ; Start 10/18/17 at 08:00 Theophylline (Theophylline Extended Release) 200 mg BID PO Last administered on 10/16/17at 08:03; Start 10/07/17 at 09:00 Lactobacillus Rhamnosus (Culturelle) 1 cap BID PO Last administered on at 07:58; Start 10/07/17 at 21:00 Clonazepam (KlonoPIN) 1 mg STK-MED ONCE .ROUTE ; Start 10/07/17 at 09:00; Stop 10/08/17 at 11:51; Status DC Clonazepam (KlonoPIN) 1 mg STK-MED ONCE .ROUTE ; Start 10/07/17 at 09:00; Stop 10/08/17 at 11:51; Status DC Clonazepam (KlonoPIN) 1 mg STK-MED ONCE .ROUTE ; Start 10/07/17 at 09:00; Stop 10/08/17 at 11:51; Status DC Diltiazem HCl (Cardizem 24hr Cd) 120 mg STK-MED ONCE PO ; Start 10/07/17 at 09: 00; Stop 10/08/17 at 11:51; Status DC Divalproex Sodium (Depakote Sprinkles) 750 mg STK-MED ONCE PO ; Start 10/07/17 at 09:00; Stop 10/08/17 at 11:51; Status DC Divalproex Sodium (Depakote Sprinkles) 750 mg STK-MED ONCE PO ; Start 10/07/17 at 09:00; Stop 10/08/17 at 11:51; Status DC Furosemide (Lasix) 80 mg STK-MED ONCE .ROUTE ; Start 10/07/17 at 09:00; Stop at 11:51; Status DC Furosemide (Lasix) 80 mg STK-MED ONCE .ROUTE ; Start 10/07/17 at 09:00; Stop at 11:51; Status DC Magnesium Oxide (Magnesium Oxide) 400 mg STK-MED ONCE .ROUTE ; Start 10/07/17 at 09:00; Stop 10/08/17 at 11:51; Status DC Metolazone (Zaroxolyn) 5 mg STK-MED ONCE .ROUTE ; Start 10/07/17 at 09:00; Stop 10/08/17 at 11:51; Status DC Mirtazapine (Remeron) 15 mg STK-MED ONCE .ROUTE ; Start 10/07/17 at 09:00; Stop 10/08/17 at 11:51; Status DC Clonazepam (KlonoPIN) 1 mg STK-MED ONCE .ROUTE ; Start 10/08/17 at 09:00; Stop 10/08/17 at 11:52; Status DC Diltiazem HCl (Cardizem 24hr Cd) 120 mg STK-MED ONCE PO ; Start 10/08/17 at 09: 00; Stop 10/08/17 at 11:52; Status DC Divalproex Sodium (Depakote Sprinkles) 750 mg STK-MED ONCE PO ; Start 10/08/17 at 09:00; Stop 10/08/17 at 11:52; Status DC Furosemide (Lasix) 80 mg STK-MED ONCE .ROUTE ; Start 10/08/17 at 09:00; Stop at 11:52; Status DC Magnesium Oxide (Magnesium Oxide) 400 mg STK-MED ONCE .ROUTE ; Start 10/08/17 at 09:00; Stop 10/08/17 at 11:52; Status DC Metolazone (Zaroxolyn) 5 mg STK-MED ONCE .ROUTE ; Start 10/08/17 at 09:00; Stop 10/08/17 at 11:52; Status DC Divalproex Sodium (Depakote Sprinkles) 1,000 mg BID PO Last administered on at 07:51; Start 10/08/17 at 21:00; Stop 10/11/17 at 09:40; Status DC Metformin HCl (Glucophage) 500 mg BIDWMEALS PO Last administered on 10/16/17at 17:15; Start 10/09/17 at 08:00 Insulin Human Lispro (HumaLOG) 0-9 UNITS TIDWMEALS SQ Last administered on 10/16at 17:18; Start 10/09/17 at 08:00 Dextrose 12.5 gm PRN Q15MIN PRN IV SEE COMMENTS; Start 10/08/17 at 19:30 Insulin Glargine (Lantus) 8 units 1X ONCE SQ Last administered on 10/08/17at 22 :10; Start 10/08/17 at 22:00; Stop 10/08/17 at 22:01; Status DC Olanzapine (ZyPREXA ZYDIS) 2.5 mg PRN Q2HR PRN PO PSYCHOSIS; Start 10/09/17 at 18:45 Valproic Acid (Depakene) 1,000 mg BID PO Last administered on 10/16/17at 07:58; Start 10/11/17 at 09:30 Haloperidol Lactate (Haldol Oral) 5 mg DAILY PO Last administered on 10/15/17at 07:45; Start 10/12/17 at 09:00; Stop 10/15/17 at 18:51; Status DC Potassium Chloride (Klor-Con) 40 meq Q1HR PO Last administered on 10/12/17at 09: 19; Start 10/12/17 at 10:00; Stop 10/12/17 at 10:15; Status DC Potassium Chloride (KCl Oral Soln) 40 meq Q1HR PEG Last administered on at 12:29; Start 10/12/17 at 11:00; Stop 10/12/17 at 13:01; Status DC Divalproex Sodium (Depakote Sprinkles) 250 mg 1X ONCE PO Last administered on 10/12/17at 10:45; Start 10/12/17 at 10:45; Stop 10/12/17 at 10:46; Status DC Buspirone HCl (Buspar) 10 mg QID PO ; Start 10/12/17 at 21:00; Stop 10/12/17 at 21:00; Status DC Buspirone HCl (Buspar) 10 mg TID@0900,1300,1700 PO Last administered on at 17:15; Start 10/13/17 at 09:00; Stop 10/16/17 at 18:36; Status DC Haloperidol Lactate (Haldol Oral) 7.5 mg DAILY PO Last administered on at 08:03; Start 10/16/17 at 09:00 Trazodone HCl (Desyrel) 50 mg PRN QHS PRN PO insomnia ; Start 10/16/17 at 21:00 Buspirone HCl (Buspar) 10 mg BID@1300,1700 PO ; Start 10/17/17 at 13:00 Buspirone HCl (Buspar) 20 mg DAILY PO ; Start 10/17/17 at 09:00 Active Scripts Active Reported Novolog Flexpen (Insulin Aspart) 100 Unit/1 Ml Insuln.pen 8 Unit SQ TIDBFRMEAL Theophylline Anhydrous 200 Mg Tab.er.12h 200 Mg PO BID Metolazone 5 Mg Tablet 5 Mg PO DAILY Metformin Hcl 500 Mg Tablet 500 Mg PO BIDWMEALS Metformin Hcl 500 Mg Tablet 500 Mg PO DAILY Geodon (Ziprasidone Mesylate) 20 Mg Vial 20 Mg IM DAILY Cardizem Tablet (Diltiazem Hcl) 120 Mg Tablet 120 Mg PO DAILY Amantadine (Amantadine Hcl) 100 Mg Tablet 100 Mg PO BID Actos (Pioglitazone Hcl) 15 Mg Tablet 15 Mg PO DAILY Buspirone Hcl 5 Mg Tablet 5 Mg PO QID Mirtazapine 15 Mg Tablet 15 Mg PO QHS Haldol Decanoate 100 (Haloperidol Decanoate) 100 Mg/1 Ml Ampul 450 Mg IM [id number] Depakote Sprinkle (Divalproex Sodium) 125 Mg Cap.sprink 750 Mg PO BID Klor-Con M20 (Potassium Chloride) 20 Meq Tab.er.prt 40 Meq PO BIDWMEALS Analgesic [place] (Methyl Salicylate/Menthol) 28 Gm Oint...g. 1 [place] TP PRN QID PRN Magnesium Oxide 400 Mg Tablet 400 Mg PO BID Milk Of Magnesia (Magnesium Hydroxide) 2,400 Mg/10 Ml Oral.susp 2,400 Mg PO PRN QHS PRN Maalox Advanced Suspension (Mag Hydrox/Aluminum Hyd/Simeth) 355 Ml Oral.susp 15 Ml PO PRN AFTMEALHC PRN D3-50 (Cholecalciferol (Vitamin D3)) 50,000 Unit Capsule 50,000 Unit PO QTH Levemir Flextouch (Insulin Detemir) 100 Unit/1 Ml Insuln.pen 55 Unit SQ QHS Clonazepam 1 Mg Tablet 1 Mg PO TID Furosemide 40 Mg Tablet 80 Mg PO [id number] Hold for SBP less than 100. After held dose, reassess in 2 hours. If SBP is above threshold, administer dose as ordered. If SBP is below threshold, contact provider for additional instructions. I have reviewed the current psychotropics carefully including drug interactions. Risk benefit ratio favors no change other than as noted in my dictated progress note. Diagnosis: Problems: (1) Depression (2) Schizoaffective disorder (3) Anxiety disorder (4) Impulse control disorder (5) Schizoaffective disorder, chronic condition with acute exacerbation (6) Mental status change KALIN STARKS MD October 16, 2017 20:42
[2017-10-16] MEDS: MIRTAZAPINE 15 MG TABLET PO SCH (20:50)
[2017-10-16] MEDS ORDERED: traZODone 50 MG TABLET. PO PRN (21:00)
[2017-10-17 05:59] VITALS: BP 141/84
[2017-10-17] MEDS: PIOGLITAZONE 15 MG TABLET. PO SCH (07:40)
[2017-10-17] MEDS: LACTOBACILLUS RHAMNOSUS GG 1 CAPSULE. PO SCH ×2 (07:40→20:46)
[2017-10-17] MEDS: metFORMIN 500 MG TABLET PO SCH ×2 (07:40→16:31)
[2017-10-17] MEDS: POTASSIUM CHLORIDE 20 MEQ TABLET.ER. PO SCH ×2 (07:41→16:31)
[2017-10-17] MEDS: MAGNESIUM OXIDE 400 MG TABLET PO SCH ×2 (07:41→20:46)
[2017-10-17] MEDS: HALOPERIDOL 10 MG/5 ML ORAL.CONC. PO SCH (07:42)
[2017-10-17] MEDS: VALPROATE ACID 250 MG/5 ML ORAL SOLUTION PO SCH ×2 (07:43→20:46)
[2017-10-17] MEDS: clonazePAM 1 MG TABLET PO SCH ×3 (07:45→20:49)
[2017-10-17] MEDS: busPIRone 10 MG TABLET. PO SCH ×3 (07:45→16:31)
[2017-10-17] MEDS: AMANTADINE HCL 100 MG CAPSULE PO SCH ×2 (07:47→20:47)
[2017-10-17] MEDS: THEOPHYLLINE ANHYDROUS 400 MG TABLET.ER. PO SCH ×2 (07:47→20:49)
[2017-10-17] MEDS: metOLazone 5 MG TABLET PO SCH (07:48)
[2017-10-17] MEDS: INSULIN LISPRO 300 UNITS/3 ML INSULN.PEN. SQ SCH ×3 (07:49→17:48)
[2017-10-17] MEDS: CHOLECALCIFEROL (VITAMIN D3) 50,000 UNIT CAPSULE PO SCH (07:49)
--- NOTE | 2017-10-17 07:49 | PN ---
DATE: 10/15/2017 PSYCHIATRIC PROGRESS NOTE This late entry 10/15/2017 covers elements not covered in my initial note 10/15/2017. SUBJECTIVE: I met with the patient evening of 10/15/2017. The patient slept 6-1/2 hours. She remains quite resistive to medications, more so in the morning, had to be placed in the quiet hallway on the west side. He did a little better after that. She complains of feeling cold and staff had brought her extra covers and I helped feed her part of her supper where she did not have to remove her hands from under the covers, but then she slowly took over the feeding herself. REVIEW OF SYSTEMS: Ambulation impaired, in wheelchair. No CV, , pulmonary, eye, ENT system symptoms on review. Reliability poor. MENTAL STATUS EXAM: Oriented to herself and situation. Speech has some latency, can be rapid at times. Abstraction fair, computation impaired, language function intact, attention span short. Mood and affect somewhat labile at times. LABORATORIES: Reviewed. IMPRESSION: Schizoaffective disorder, bipolar type, mixed with psychotic features, in partial remission. PLAN: Valproic acid level is 85, therapeutic, increase liquid Haldol to 7.5 mg p.o. at bedtime in preparation for stopping the Haldol Decanoate. Maintain rest of psychotropics unchanged. MAN Mary STARKS MD DR: TRACIE/karli JOB#: [id number] / [id number]
[2017-10-17 11:18] VITALS: BP 130/60
[2017-10-17 16:16] VITALS: BP 110/62
[2017-10-17] MEDS: MIRTAZAPINE 15 MG TABLET PO SCH (20:46)
--- NOTE | 2017-10-17 20:58 | PDOC ---
Exam Note: [place] Note: Please also refer to the separate dictated note~for this date of service dictated separately.~Patient seen individually. Discussed the patient with Nursing staff reviewed the chart.~Reviewed interim history and current functioning. Reviewed vital signs,~Labs/ Radiology~and current medications noted below. Continue current treatment with the changes noted in the dictated addendum note Assessment: Vital Signs: Vital Signs Date Time Temp Pulse Resp B/P (MAP) Pulse Ox O2 Delivery O2 Flow Rate FiO2 10/17/17 16:16 97.1 70 16 110/62 (78) 96 10/17/17 11:18 Room Air 10/12/17 06:21 2.0 I&O Intake and Output 10/17/17 07:00 Intake Total 1080 ml Balance 1080 ml Intake Oral 1080 ml Labs: Laboratory Tests Test 10/17/17 07:20 10/17/17 11:59 10/17/17 16:55 10/17/17 19:20 Glucose (Fingerstick) 140 mg/dL (70-99) H 193 mg/dL (70-99) H 158 mg/dL (70-99) H 209 mg/dL (70-99) H Current Medications: Meds: Current Medications Sodium Chloride 1,000 ml @ 1,000 mls/hr 1X ONCE IV Last administered on at 00:40; Start 10/06/17 at 22:30; Stop 10/06/17 at 23:29; Status DC Ziprasidone (Geodon Im) 20 mg 1X ONCE IM Last administered on 10/07/17at 00:06 ; Start 10/06/17 at 22:30; Stop 10/06/17 at 22:31; Status DC Diphenhydramine HCl (Benadryl) 50 mg 1X ONCE IV ; Start 10/06/17 at 22:30; Stop 10/06/17 at 23:08; Status DC Lorazepam (Ativan) 2 mg 1X ONCE IV ; Start 10/06/17 at 22:30; Stop 10/06/17 at 23:08; Status DC Diphenhydramine HCl (Benadryl) 50 mg 1X ONCE IM Last administered on at 23:09; Start 10/06/17 at 23:15; Stop 10/06/17 at 23:16; Status DC Lorazepam (Ativan) 2 mg 1X ONCE IM Last administered on 10/06/17at 23:09; Start 10/06/17 at 23:15; Stop 10/06/17 at 23:16; Status DC Ziprasidone (Geodon Im) 20 mg 1X ONCE IM ; Start 10/07/17 at 00:00; Stop at 00:01; Status DC Lorazepam (Ativan) 2 mg 1X ONCE IM Last administered on 10/07/17at 00:06; Start 10/07/17 at 00:00; Stop 10/07/17 at 00:01; Status DC Ceftriaxone Sodium (Rocephin Im) 1 gm 1X ONCE IM Last administered on at 00:40; Start 10/07/17 at 00:30; Stop 10/07/17 at 00:31; Status DC Magnesium Hydroxide (Milk Of Magnesia) 2,400 mg 1X ONCE PO Last administered on 10/07/17at 02:27; Start 10/07/17 at 02:15; Stop 10/07/17 at 02:16; Status DC Potassium Chloride (Klor-Con) 40 meq 1X ONCE PO Last administered on at 02:06; Start 10/07/17 at 02:15; Stop 10/07/17 at 02:16; Status DC Cephalexin HCl (Keflex) 500 mg TID PO Last administered on 10/10/17at 14:18; Start 10/07/17 at 09:00; Stop 10/11/17 at 19:05; Status DC Acetaminophen (Tylenol) 650 mg PRN Q6HRS PRN PO PAIN / TEMP Last administered on 10/13/17at 19:43; Start 10/07/17 at 03:45 Multi-Ingredient Ointment (Analgesic Erie) 1 guanaco PRN QID PRN TP MUSCLE PAIN; Start 10/07/17 at 03:45 Al Hydroxide/Mg Hydroxide (Mylanta Plus Xs) 15 ml PRN AFTMEALHC PRN PO DYSPEPSIA; Start 10/07/17 at 03:45 Magnesium Hydroxide (Milk Of Magnesia) 2,400 mg PRN QHS PRN PO CONSTIPATION; Start 10/07/17 at 03:45 Vitamin D (Vitamin D3) 50,000 unit QTH@0900 PO Last administered on 10/17/17at 07:49; Start 10/10/17 at 09:00 Multi-Ingredient Ointment (Analgesic Erie) 1 guanaco PRN QID PRN TP MUSCLE PAIN; Start 10/07/17 at 08:00; Status UNV Potassium Chloride (Klor-Con) 40 meq BIDWMEALS PO Last administered on at 16:31; Start 10/07/17 at 08:00 Theophylline (Theodur) 200 mg BID PO ; Start 10/07/17 at 09:00; Stop 10/07/17 at 09:00; Status DC Amantadine HCl (Symmetrel) 100 mg BID PO Last administered on 10/17/17at 20:47; Start 10/07/17 at 09:00 Buspirone HCl (Buspar) 5 mg QID PO Last administered on 10/12/17at 19:26; Start 10/07/17 at 09:00; Stop 10/12/17 at 19:48; Status DC Clonazepam (KlonoPIN) 1 mg TID PO Last administered on 10/17/17at 20:49; Start 10/07/17 at 09:00 Diltiazem HCl (Cardizem 24hr Cd) 120 mg DAILY PO Last administered on at 07:40; Start 10/07/17 at 09:00 Divalproex Sodium (Depakote Sprinkles) 750 mg BID PO Last administered on at 10:18; Start 10/07/17 at 09:00; Stop 10/08/17 at 18:28; Status DC Furosemide (Lasix) 80 mg [id number] PO Last administered on 10/11/17at 13:49; Start 10/07/17 at 09:00; Stop 10/13/17 at 17:39; Status DC Non-Formulary Medication (Haloperidol Decanoate (Haldol Decanoate 100)) 450 mg [id number] IM ; Start 10/07/17 at 08:00; Stop 10/07/17 at 08:10; Status DC Non-Formulary Medication (Mag Hydrox/ Aluminum Hyd/ Simeth (Maalox Advanced Suspension)) 15 ml PRN AFTMEALHC PRN PO DYSPEPSIA; Start 10/07/17 at 08:00; Status UNV Non-Formulary Medication (Magnesium Hydroxide (Milk Of Magnesia)) 2,400 mg PRN QHS PRN PO CONSTIPATION; Start 10/07/17 at 08:00; Status UNV Magnesium Oxide (Magnesium Oxide) 400 mg BID PO Last administered on 10/17/17at 20:46; Start 10/07/17 at 09:00 Metformin HCl (Glucophage) 500 mg [id number] PO Last administered on 10/08/17at 10:19; Start 10/07/17 at 08:00; Stop 10/08/17 at 19:23; Status DC Metolazone (Zaroxolyn) 5 mg DAILY PO Last administered on 10/17/17at 07:48; Start 10/07/17 at 09:00 Mirtazapine (Remeron) 15 mg QHS PO Last administered on 10/17/17at 20:46; Start 10/07/17 at 21:00 Pioglitazone HCl (Actos) 15 mg DAILY PO Last administered on 10/17/17at 07:40; Start 10/07/17 at 09:00 Haloperidol Decanoate (Haldol Decanoate Im Extended Release) 450 mg Q24D IM ; Start 10/18/17 at 08:00 Theophylline (Theophylline Extended Release) 200 mg BID PO Last administered on 10/17/17at 20:49; Start 10/07/17 at 09:00 Lactobacillus Rhamnosus (Culturelle) 1 cap BID PO Last administered on at 20:46; Start 10/07/17 at 21:00 Clonazepam (KlonoPIN) 1 mg STK-MED ONCE .ROUTE ; Start 10/07/17 at 09:00; Stop 10/08/17 at 11:51; Status DC Clonazepam (KlonoPIN) 1 mg STK-MED ONCE .ROUTE ; Start 10/07/17 at 09:00; Stop 10/08/17 at 11:51; Status DC Clonazepam (KlonoPIN) 1 mg STK-MED ONCE .ROUTE ; Start 10/07/17 at 09:00; Stop 10/08/17 at 11:51; Status DC Diltiazem HCl (Cardizem 24hr Cd) 120 mg STK-MED ONCE PO ; Start 10/07/17 at 09: 00; Stop 10/08/17 at 11:51; Status DC Divalproex Sodium (Depakote Sprinkles) 750 mg STK-MED ONCE PO ; Start 10/07/17 at 09:00; Stop 10/08/17 at 11:51; Status DC Divalproex Sodium (Depakote Sprinkles) 750 mg STK-MED ONCE PO ; Start 10/07/17 at 09:00; Stop 10/08/17 at 11:51; Status DC Furosemide (Lasix) 80 mg STK-MED ONCE .ROUTE ; Start 10/07/17 at 09:00; Stop at 11:51; Status DC Furosemide (Lasix) 80 mg STK-MED ONCE .ROUTE ; Start 10/07/17 at 09:00; Stop at 11:51; Status DC Magnesium Oxide (Magnesium Oxide) 400 mg STK-MED ONCE .ROUTE ; Start 10/07/17 at 09:00; Stop 10/08/17 at 11:51; Status DC Metolazone (Zaroxolyn) 5 mg STK-MED ONCE .ROUTE ; Start 10/07/17 at 09:00; Stop 10/08/17 at 11:51; Status DC Mirtazapine (Remeron) 15 mg STK-MED ONCE .ROUTE ; Start 10/07/17 at 09:00; Stop 10/08/17 at 11:51; Status DC Clonazepam (KlonoPIN) 1 mg STK-MED ONCE .ROUTE ; Start 10/08/17 at 09:00; Stop 10/08/17 at 11:52; Status DC Diltiazem HCl (Cardizem 24hr Cd) 120 mg STK-MED ONCE PO ; Start 10/08/17 at 09: 00; Stop 10/08/17 at 11:52; Status DC Divalproex Sodium (Depakote Sprinkles) 750 mg STK-MED ONCE PO ; Start 10/08/17 at 09:00; Stop 10/08/17 at 11:52; Status DC Furosemide (Lasix) 80 mg STK-MED ONCE .ROUTE ; Start 10/08/17 at 09:00; Stop at 11:52; Status DC Magnesium Oxide (Magnesium Oxide) 400 mg STK-MED ONCE .ROUTE ; Start 10/08/17 at 09:00; Stop 10/08/17 at 11:52; Status DC Metolazone (Zaroxolyn) 5 mg STK-MED ONCE .ROUTE ; Start 10/08/17 at 09:00; Stop 10/08/17 at 11:52; Status DC Divalproex Sodium (Depakote Sprinkles) 1,000 mg BID PO Last administered on at 07:51; Start 10/08/17 at 21:00; Stop 10/11/17 at 09:40; Status DC Metformin HCl (Glucophage) 500 mg BIDWMEALS PO Last administered on 10/17/17at 16:31; Start 10/09/17 at 08:00 Insulin Human Lispro (HumaLOG) 0-9 UNITS TIDWMEALS SQ Last administered on 10/17at 17:48; Start 10/09/17 at 08:00 Dextrose 12.5 gm PRN Q15MIN PRN IV SEE COMMENTS; Start 10/08/17 at 19:30 Insulin Glargine (Lantus) 8 units 1X ONCE SQ Last administered on 10/08/17at 22 :10; Start 10/08/17 at 22:00; Stop 10/08/17 at 22:01; Status DC Olanzapine (ZyPREXA ZYDIS) 2.5 mg PRN Q2HR PRN PO PSYCHOSIS; Start 10/09/17 at 18:45 Valproic Acid (Depakene) 1,000 mg BID PO Last administered on 10/17/17at 20:46; Start 10/11/17 at 09:30 Haloperidol Lactate (Haldol Oral) 5 mg DAILY PO Last administered on 10/15/17at 07:45; Start 10/12/17 at 09:00; Stop 10/15/17 at 18:51; Status DC Potassium Chloride (Klor-Con) 40 meq Q1HR PO Last administered on 10/12/17at 09: 19; Start 10/12/17 at 10:00; Stop 10/12/17 at 10:15; Status DC Potassium Chloride (KCl Oral Soln) 40 meq Q1HR PEG Last administered on at 12:29; Start 10/12/17 at 11:00; Stop 10/12/17 at 13:01; Status DC Divalproex Sodium (Depakote Sprinkles) 250 mg 1X ONCE PO Last administered on 10/12/17at 10:45; Start 10/12/17 at 10:45; Stop 10/12/17 at 10:46; Status DC Buspirone HCl (Buspar) 10 mg QID PO ; Start 10/12/17 at 21:00; Stop 10/12/17 at 21:00; Status DC Buspirone HCl (Buspar) 10 mg TID@0900,1300,1700 PO Last administered on at 17:15; Start 10/13/17 at 09:00; Stop 10/16/17 at 18:36; Status DC Haloperidol Lactate (Haldol Oral) 7.5 mg DAILY PO Last administered on at 07:42; Start 10/16/17 at 09:00 Trazodone HCl (Desyrel) 50 mg PRN QHS PRN PO insomnia ; Start 10/16/17 at 21:00 Buspirone HCl (Buspar) 10 mg BID@1300,1700 PO Last administered on 10/17/17at 16 :31; Start 10/17/17 at 13:00 Buspirone HCl (Buspar) 20 mg DAILY PO Last administered on 10/17/17at 07:45; Start 10/17/17 at 09:00 Active Scripts Active Reported Novolog Flexpen (Insulin Aspart) 100 Unit/1 Ml Insuln.pen 8 Unit SQ TIDBFRMEAL Theophylline Anhydrous 200 Mg Tab.er.12h 200 Mg PO BID Metolazone 5 Mg Tablet 5 Mg PO DAILY Metformin Hcl 500 Mg Tablet 500 Mg PO BIDWMEALS Metformin Hcl 500 Mg Tablet 500 Mg PO DAILY Geodon (Ziprasidone Mesylate) 20 Mg Vial 20 Mg IM DAILY Cardizem Tablet (Diltiazem Hcl) 120 Mg Tablet 120 Mg PO DAILY Amantadine (Amantadine Hcl) 100 Mg Tablet 100 Mg PO BID Actos (Pioglitazone Hcl) 15 Mg Tablet 15 Mg PO DAILY Buspirone Hcl 5 Mg Tablet 5 Mg PO QID Mirtazapine 15 Mg Tablet 15 Mg PO QHS Haldol Decanoate 100 (Haloperidol Decanoate) 100 Mg/1 Ml Ampul 450 Mg IM [id number] Depakote Sprinkle (Divalproex Sodium) 125 Mg Cap.sprink 750 Mg PO BID Klor-Con M20 (Potassium Chloride) 20 Meq Tab.er.prt 40 Meq PO BIDWMEALS Analgesic Erie (Methyl Salicylate/Menthol) 28 Gm Oint...g. 1 Guanaco TP PRN QID PRN Magnesium Oxide 400 Mg Tablet 400 Mg PO BID Milk Of Magnesia (Magnesium Hydroxide) 2,400 Mg/10 Ml Oral.susp 2,400 Mg PO PRN QHS PRN Maalox Advanced Suspension (Mag Hydrox/Aluminum Hyd/Simeth) 355 Ml Oral.susp 15 Ml PO PRN AFTMEALHC PRN D3-50 (Cholecalciferol (Vitamin D3)) 50,000 Unit Capsule 50,000 Unit PO QTH Levemir Flextouch (Insulin Detemir) 100 Unit/1 Ml Insuln.pen 55 Unit SQ QHS Clonazepam 1 Mg Tablet 1 Mg PO TID Furosemide 40 Mg Tablet 80 Mg PO [id number] Hold for SBP less than 100. After held dose, reassess in 2 hours. If SBP is above threshold, administer dose as ordered. If SBP is below threshold, contact provider for additional instructions. I have reviewed the current psychotropics carefully including drug interactions. Risk benefit ratio favors no change other than as noted in my dictated progress note. Diagnosis: Problems: (1) Depression (2) Schizoaffective disorder (3) Anxiety disorder (4) Impulse control disorder (5) Schizoaffective disorder, chronic condition with acute exacerbation (6) Mental status change KALIN STARKS MD October 17, 2017 20:58
[2017-10-18 06:02] VITALS: BP 142/91
[2017-10-18] MEDS: INSULIN LISPRO 300 UNITS/3 ML INSULN.PEN. SQ SCH ×3 (08:00→17:00)
[2017-10-18] MEDS ORDERED: HALOPERIDOL DECANOATE IM ER 50 MG/ML VIAL. IM SCH (08:00)
[2017-10-18] MEDS: VALPROATE ACID 250 MG/5 ML ORAL SOLUTION PO SCH ×2 (08:01→20:00)
[2017-10-18] MEDS: POTASSIUM CHLORIDE 20 MEQ TABLET.ER. PO SCH ×2 (08:02→17:43)
[2017-10-18] MEDS: LACTOBACILLUS RHAMNOSUS GG 1 CAPSULE. PO SCH ×2 (08:02→19:59)
[2017-10-18] MEDS: busPIRone 10 MG TABLET. PO SCH ×3 (08:02→17:42)
[2017-10-18] MEDS: PIOGLITAZONE 15 MG TABLET. PO SCH (08:02)
[2017-10-18] MEDS: HALOPERIDOL 10 MG/5 ML ORAL.CONC. PO SCH (08:02)
[2017-10-18] MEDS: MAGNESIUM OXIDE 400 MG TABLET PO SCH ×2 (08:03→19:59)
[2017-10-18] MEDS: metFORMIN 500 MG TABLET PO SCH ×2 (08:03→17:42)
[2017-10-18] MEDS: metOLazone 5 MG TABLET PO SCH (08:05)
[2017-10-18] MEDS: THEOPHYLLINE ANHYDROUS 400 MG TABLET.ER. PO SCH ×2 (08:05→20:01)
[2017-10-18] MEDS: AMANTADINE HCL 100 MG CAPSULE PO SCH ×2 (08:05→20:00)
[2017-10-18] MEDS: clonazePAM 1 MG TABLET PO SCH ×3 (08:08→19:59)
[2017-10-18 16:33] VITALS: BP 130/83
[2017-10-18] MEDS: MIRTAZAPINE 15 MG TABLET PO SCH (19:59)
--- NOTE | 2017-10-18 20:01 | PDOC ---
Exam Note: Napoleon Note: Please also refer to the separate dictated note~for this date of service dictated separately.~Patient seen individually. Discussed the patient with Nursing staff reviewed the chart.~Reviewed interim history and current functioning. Reviewed vital signs,~Labs/ Radiology~and current medications noted below. Continue current treatment with the changes noted in the dictated addendum note Assessment: Vital Signs: Vital Signs Date Time Temp Pulse Resp B/P (MAP) Pulse Ox O2 Delivery O2 Flow Rate FiO2 10/18/17 16:33 97.6 75 19 130/83 (99) 92 Room Air I&O Intake and Output 10/18/17 07:00 Intake Total 1320 ml Balance 1320 ml Intake Oral 1320 ml # Bowel Movements 1 Labs: Laboratory Tests Test 10/18/17 07:14 10/18/17 11:44 10/18/17 16:48 10/18/17 19:11 Glucose (Fingerstick) 108 mg/dL (70-99) H 197 mg/dL (70-99) H 133 mg/dL (70-99) H 200 mg/dL (70-99) H Current Medications: Meds: Current Medications Sodium Chloride 1,000 ml @ 1,000 mls/hr 1X ONCE IV Last administered on at 00:40; Start 10/06/17 at 22:30; Stop 10/06/17 at 23:29; Status DC Ziprasidone (Geodon Im) 20 mg 1X ONCE IM Last administered on 10/07/17at 00:06 ; Start 10/06/17 at 22:30; Stop 10/06/17 at 22:31; Status DC Diphenhydramine HCl (Benadryl) 50 mg 1X ONCE IV ; Start 10/06/17 at 22:30; Stop 10/06/17 at 23:08; Status DC Lorazepam (Ativan) 2 mg 1X ONCE IV ; Start 10/06/17 at 22:30; Stop 10/06/17 at 23:08; Status DC Diphenhydramine HCl (Benadryl) 50 mg 1X ONCE IM Last administered on at 23:09; Start 10/06/17 at 23:15; Stop 10/06/17 at 23:16; Status DC Lorazepam (Ativan) 2 mg 1X ONCE IM Last administered on 10/06/17at 23:09; Start 10/06/17 at 23:15; Stop 10/06/17 at 23:16; Status DC Ziprasidone (Geodon Im) 20 mg 1X ONCE IM ; Start 10/07/17 at 00:00; Stop at 00:01; Status DC Lorazepam (Ativan) 2 mg 1X ONCE IM Last administered on 10/07/17at 00:06; Start 10/07/17 at 00:00; Stop 10/07/17 at 00:01; Status DC Ceftriaxone Sodium (Rocephin Im) 1 gm 1X ONCE IM Last administered on at 00:40; Start 10/07/17 at 00:30; Stop 10/07/17 at 00:31; Status DC Magnesium Hydroxide (Milk Of Magnesia) 2,400 mg 1X ONCE PO Last administered on 10/07/17at 02:27; Start 10/07/17 at 02:15; Stop 10/07/17 at 02:16; Status DC Potassium Chloride (Klor-Con) 40 meq 1X ONCE PO Last administered on at 02:06; Start 10/07/17 at 02:15; Stop 10/07/17 at 02:16; Status DC Cephalexin HCl (Keflex) 500 mg TID PO Last administered on 10/10/17at 14:18; Start 10/07/17 at 09:00; Stop 10/11/17 at 19:05; Status DC Acetaminophen (Tylenol) 650 mg PRN Q6HRS PRN PO PAIN / TEMP Last administered on 10/13/17at 19:43; Start 10/07/17 at 03:45 Multi-Ingredient Ointment (Analgesic [place]) 1 guanaco PRN QID PRN TP MUSCLE PAIN; Start 10/07/17 at 03:45 Al Hydroxide/Mg Hydroxide (Mylanta Plus Xs) 15 ml PRN AFTMEALHC PRN PO DYSPEPSIA; Start 10/07/17 at 03:45 Magnesium Hydroxide (Milk Of Magnesia) 2,400 mg PRN QHS PRN PO CONSTIPATION; Start 10/07/17 at 03:45 Vitamin D (Vitamin D3) 50,000 unit QTH@0900 PO Last administered on 10/17/17at 07:49; Start 10/10/17 at 09:00 Multi-Ingredient Ointment (Analgesic [place]) 1 guanaco PRN QID PRN TP MUSCLE PAIN; Start 10/07/17 at 08:00; Status UNV Potassium Chloride (Klor-Con) 40 meq BIDWMEALS PO Last administered on at 17:43; Start 10/07/17 at 08:00 Theophylline (Theodur) 200 mg BID PO ; Start 10/07/17 at 09:00; Stop 10/07/17 at 09:00; Status DC Amantadine HCl (Symmetrel) 100 mg BID PO Last administered on 10/18/17at 08:05; Start 10/07/17 at 09:00 Buspirone HCl (Buspar) 5 mg QID PO Last administered on 10/12/17at 19:26; Start 10/07/17 at 09:00; Stop 10/12/17 at 19:48; Status DC Clonazepam (KlonoPIN) 1 mg TID PO Last administered on 10/18/17at 14:17; Start 10/07/17 at 09:00 Diltiazem HCl (Cardizem 24hr Cd) 120 mg DAILY PO Last administered on at 08:03; Start 10/07/17 at 09:00 Divalproex Sodium (Depakote Sprinkles) 750 mg BID PO Last administered on at 10:18; Start 10/07/17 at 09:00; Stop 10/08/17 at 18:28; Status DC Furosemide (Lasix) 80 mg [id number] PO Last administered on 10/11/17at 13:49; Start 10/07/17 at 09:00; Stop 10/13/17 at 17:39; Status DC Non-Formulary Medication (Haloperidol Decanoate (Haldol Decanoate 100)) 450 mg [id number] IM ; Start 10/07/17 at 08:00; Stop 10/07/17 at 08:10; Status DC Non-Formulary Medication (Mag Hydrox/ Aluminum Hyd/ Simeth (Maalox Advanced Suspension)) 15 ml PRN AFTMEALHC PRN PO DYSPEPSIA; Start 10/07/17 at 08:00; Status UNV Non-Formulary Medication (Magnesium Hydroxide (Milk Of Magnesia)) 2,400 mg PRN QHS PRN PO CONSTIPATION; Start 10/07/17 at 08:00; Status UNV Magnesium Oxide (Magnesium Oxide) 400 mg BID PO Last administered on 10/18/17at 08:03; Start 10/07/17 at 09:00 Metformin HCl (Glucophage) 500 mg [id number] PO Last administered on 10/08/17at 10:19; Start 10/07/17 at 08:00; Stop 10/08/17 at 19:23; Status DC Metolazone (Zaroxolyn) 5 mg DAILY PO Last administered on 10/18/17at 08:05; Start 10/07/17 at 09:00 Mirtazapine (Remeron) 15 mg QHS PO Last administered on 10/17/17at 20:46; Start 10/07/17 at 21:00 Pioglitazone HCl (Actos) 15 mg DAILY PO Last administered on 10/18/17at 08:02; Start 10/07/17 at 09:00 Haloperidol Decanoate (Haldol Decanoate Im Extended Release) 450 mg Q24D IM ; Start 10/18/17 at 08:00; Stop 10/18/17 at 18:43; Status DC Theophylline (Theophylline Extended Release) 200 mg BID PO Last administered on 10/18/17at 08:05; Start 10/07/17 at 09:00 Lactobacillus Rhamnosus (Culturelle) 1 cap BID PO Last administered on at 08:02; Start 10/07/17 at 21:00 Clonazepam (KlonoPIN) 1 mg STK-MED ONCE .ROUTE ; Start 10/07/17 at 09:00; Stop 10/08/17 at 11:51; Status DC Clonazepam (KlonoPIN) 1 mg STK-MED ONCE .ROUTE ; Start 10/07/17 at 09:00; Stop 10/08/17 at 11:51; Status DC Clonazepam (KlonoPIN) 1 mg STK-MED ONCE .ROUTE ; Start 10/07/17 at 09:00; Stop 10/08/17 at 11:51; Status DC Diltiazem HCl (Cardizem 24hr Cd) 120 mg STK-MED ONCE PO ; Start 10/07/17 at 09: 00; Stop 10/08/17 at 11:51; Status DC Divalproex Sodium (Depakote Sprinkles) 750 mg STK-MED ONCE PO ; Start 10/07/17 at 09:00; Stop 10/08/17 at 11:51; Status DC Divalproex Sodium (Depakote Sprinkles) 750 mg STK-MED ONCE PO ; Start 10/07/17 at 09:00; Stop 10/08/17 at 11:51; Status DC Furosemide (Lasix) 80 mg STK-MED ONCE .ROUTE ; Start 10/07/17 at 09:00; Stop at 11:51; Status DC Furosemide (Lasix) 80 mg STK-MED ONCE .ROUTE ; Start 10/07/17 at 09:00; Stop at 11:51; Status DC Magnesium Oxide (Magnesium Oxide) 400 mg STK-MED ONCE .ROUTE ; Start 10/07/17 at 09:00; Stop 10/08/17 at 11:51; Status DC Metolazone (Zaroxolyn) 5 mg STK-MED ONCE .ROUTE ; Start 10/07/17 at 09:00; Stop 10/08/17 at 11:51; Status DC Mirtazapine (Remeron) 15 mg STK-MED ONCE .ROUTE ; Start 10/07/17 at 09:00; Stop 10/08/17 at 11:51; Status DC Clonazepam (KlonoPIN) 1 mg STK-MED ONCE .ROUTE ; Start 10/08/17 at 09:00; Stop 10/08/17 at 11:52; Status DC Diltiazem HCl (Cardizem 24hr Cd) 120 mg STK-MED ONCE PO ; Start 10/08/17 at 09: 00; Stop 10/08/17 at 11:52; Status DC Divalproex Sodium (Depakote Sprinkles) 750 mg STK-MED ONCE PO ; Start 10/08/17 at 09:00; Stop 10/08/17 at 11:52; Status DC Furosemide (Lasix) 80 mg STK-MED ONCE .ROUTE ; Start 10/08/17 at 09:00; Stop at 11:52; Status DC Magnesium Oxide (Magnesium Oxide) 400 mg STK-MED ONCE .ROUTE ; Start 10/08/17 at 09:00; Stop 10/08/17 at 11:52; Status DC Metolazone (Zaroxolyn) 5 mg STK-MED ONCE .ROUTE ; Start 10/08/17 at 09:00; Stop 10/08/17 at 11:52; Status DC Divalproex Sodium (Depakote Sprinkles) 1,000 mg BID PO Last administered on at 07:51; Start 10/08/17 at 21:00; Stop 10/11/17 at 09:40; Status DC Metformin HCl (Glucophage) 500 mg BIDWMEALS PO Last administered on 10/18/17at 17:42; Start 10/09/17 at 08:00 Insulin Human Lispro (HumaLOG) 0-9 UNITS TIDWMEALS SQ Last administered on 10/18 12:23; Start 10/09/17 at 08:00 Dextrose 12.5 gm PRN Q15MIN PRN IV SEE COMMENTS; Start 10/08/17 at 19:30 Insulin Glargine (Lantus) 8 units 1X ONCE SQ Last administered on 10/08/17at 22 :10; Start 10/08/17 at 22:00; Stop 10/08/17 at 22:01; Status DC Olanzapine (ZyPREXA ZYDIS) 2.5 mg PRN Q2HR PRN PO PSYCHOSIS; Start 10/09/17 at 18:45 Valproic Acid (Depakene) 1,000 mg BID PO Last administered on 10/18/17at 08:01; Start 10/11/17 at 09:30 Haloperidol Lactate (Haldol Oral) 5 mg DAILY PO Last administered on 10/15/17at 07:45; Start 10/12/17 at 09:00; Stop 10/15/17 at 18:51; Status DC Potassium Chloride (Klor-Con) 40 meq Q1HR PO Last administered on 10/12/17at 09: 19; Start 10/12/17 at 10:00; Stop 10/12/17 at 10:15; Status DC Potassium Chloride (KCl Oral Soln) 40 meq Q1HR PEG Last administered on at 12:29; Start 10/12/17 at 11:00; Stop 10/12/17 at 13:01; Status DC Divalproex Sodium (Depakote Sprinkles) 250 mg 1X ONCE PO Last administered on 10/12/17at 10:45; Start 10/12/17 at 10:45; Stop 10/12/17 at 10:46; Status DC Buspirone HCl (Buspar) 10 mg QID PO ; Start 10/12/17 at 21:00; Stop 10/12/17 at 21:00; Status DC Buspirone HCl (Buspar) 10 mg TID@0900,1300,1700 PO Last administered on at 17:15; Start 10/13/17 at 09:00; Stop 10/16/17 at 18:36; Status DC Haloperidol Lactate (Haldol Oral) 7.5 mg DAILY PO Last administered on at 08:02; Start 10/16/17 at 09:00 Trazodone HCl (Desyrel) 50 mg PRN QHS PRN PO insomnia ; Start 10/16/17 at 21:00 Buspirone HCl (Buspar) 10 mg BID@1300,1700 PO Last administered on 10/18/17at 17 :42; Start 10/17/17 at 13:00 Buspirone HCl (Buspar) 20 mg DAILY PO Last administered on 10/18/17at 08:02; Start 10/17/17 at 09:00 Non-Formulary Medication 4.5 ea Q24D IM ; Start 10/22/17 at 09:00 Active Scripts Active Reported Novolog Flexpen (Insulin Aspart) 100 Unit/1 Ml Insuln.pen 8 Unit SQ TIDBFRMEAL Theophylline Anhydrous 200 Mg Tab.er.12h 200 Mg PO BID Metolazone 5 Mg Tablet 5 Mg PO DAILY Metformin Hcl 500 Mg Tablet 500 Mg PO BIDWMEALS Metformin Hcl 500 Mg Tablet 500 Mg PO DAILY Geodon (Ziprasidone Mesylate) 20 Mg Vial 20 Mg IM DAILY Cardizem Tablet (Diltiazem Hcl) 120 Mg Tablet 120 Mg PO DAILY Amantadine (Amantadine Hcl) 100 Mg Tablet 100 Mg PO BID Actos (Pioglitazone Hcl) 15 Mg Tablet 15 Mg PO DAILY Buspirone Hcl 5 Mg Tablet 5 Mg PO QID Mirtazapine 15 Mg Tablet 15 Mg PO QHS Haldol Decanoate 100 (Haloperidol Decanoate) 100 Mg/1 Ml Ampul 450 Mg IM [id number] Depakote Sprinkle (Divalproex Sodium) 125 Mg Cap.sprink 750 Mg PO BID Klor-Con M20 (Potassium Chloride) 20 Meq Tab.er.prt 40 Meq PO BIDWMEALS Analgesic [place] (Methyl Salicylate/Menthol) 28 Gm Oint...g. 1 Guanaco TP PRN QID PRN Magnesium Oxide 400 Mg Tablet 400 Mg PO BID Milk Of Magnesia (Magnesium Hydroxide) 2,400 Mg/10 Ml Oral.susp 2,400 Mg PO PRN QHS PRN Maalox Advanced Suspension (Mag Hydrox/Aluminum Hyd/Simeth) 355 Ml Oral.susp 15 Ml PO PRN AFTMEALHC PRN D3-50 (Cholecalciferol (Vitamin D3)) 50,000 Unit Capsule 50,000 Unit PO QTH Levemir Flextouch (Insulin Detemir) 100 Unit/1 Ml Insuln.pen 55 Unit SQ QHS Clonazepam 1 Mg Tablet 1 Mg PO TID Furosemide 40 Mg Tablet 80 Mg PO [id number] Hold for SBP less than 100. After held dose, reassess in 2 hours. If SBP is above threshold, administer dose as ordered. If SBP is below threshold, contact provider for additional instructions. I have reviewed the current psychotropics carefully including drug interactions. Risk benefit ratio favors no change other than as noted in my dictated progress note. Diagnosis: Problems: (1) Depression (2) Schizoaffective disorder (3) Anxiety disorder (4) Impulse control disorder (5) Schizoaffective disorder, chronic condition with acute exacerbation (6) Mental status change KALIN STARKS MD October 18, 2017 20:01
--- NOTE | 2017-10-18 22:22 | PN ---
DATE: 10/16/2017 PSYCHIATRIC PROGRESS NOTE This is a late entry 10/16/2017 covers elements not covered in my initial note 10/16/2017. SUBJECTIVE: I met with the patient in the evening. She remains somewhat obsessed about coke and nursing staff are able to administer her medications through that. Otherwise, she is resistive to meds. She has crashed and was quite aggressive towards the nursing staff using profanities as well. REVIEW OF SYSTEMS: No CV, , pulmonary, eye, ENT system symptoms on review. Ambulation impaired, in wheelchair. MENTAL STATUS EXAM: Oriented to herself and situation. Speech coherent, somewhat pressured. Abstraction fair, computation impaired, language function intact. Mood and affect still labile, but better than before. LABORATORY DATA: Reviewed. IMPRESSION: Unchanged from initial note schizoaffective disorder, bipolar type, mixed with psychotic features. PLAN: Start trazodone 50 mg at bedtime p.r.n., increase BuSpar for anxiety, mood lability. Adjust further as clinically indicated. Haldol liquid is 7.5 mg daily. Valproic acid level therapeutic at 85. MAN Mary STARKS MD DR: TRACIE/karli JOB#: [id number] / [id number]
--- NOTE | 2017-10-18 22:26 | PN ---
DATE: 10/17/2017 PSYCHIATRIC PROGRESS NOTE This is a late entry 10/17/2017 covers elements not covered in my initial note 10/17/2017. SUBJECTIVE: I met with the patient in the evening, staffed at a treatment team meeting with the entire team in the morning. She has to be given her medications hidden in juice or ice cream. Otherwise, noncompliant. REVIEW OF SYSTEMS: Ambulation impaired, in wheelchair. No CV, , pulmonary, eye, ENT system symptoms on review. Reliability varies. MENTAL STATUS EXAM: Oriented to herself and situation. Speech is coherent, rapid at times. Abstraction fair, computation impaired, language function intact, attention span short. Mood and affect remains labile, but as I met with her she is complaining of feeling cold and at my request nursing staff brought her hot blanket, very appreciative of this. Sleeping 6-1/2 hours. She remains somewhat paranoid at times, refuses medications because she believes people are trying to poison her. LABORATORY DATA: Reviewed. IMPRESSION: Schizoaffective disorder, bipolar type, mixed with psychotic features; cognitive disorder, unspecified. PLAN: Continue psychotropics mentioned in my initial note, encourage compliance with her medications. KALIN STARKS MD DR: TRACIE/karli JOB#: [id number] / [id number]
[2017-10-19 06:35] VITALS: BP 132/66
[2017-10-19] MEDS: INSULIN LISPRO 300 UNITS/3 ML INSULN.PEN. SQ SCH ×3 (08:00→17:25)
[2017-10-19] MEDS: PIOGLITAZONE 15 MG TABLET. PO SCH (08:03)
[2017-10-19] MEDS: THEOPHYLLINE ANHYDROUS 400 MG TABLET.ER. PO SCH ×2 (08:03→19:47)
[2017-10-19] MEDS: LACTOBACILLUS RHAMNOSUS GG 1 CAPSULE. PO SCH ×2 (08:04→19:45)
[2017-10-19] MEDS: MAGNESIUM OXIDE 400 MG TABLET PO SCH ×2 (08:04→19:45)
[2017-10-19] MEDS: metFORMIN 500 MG TABLET PO SCH ×2 (08:04→17:22)
[2017-10-19] MEDS: POTASSIUM CHLORIDE 20 MEQ TABLET.ER. PO SCH ×2 (08:04→17:21)
[2017-10-19] MEDS: busPIRone 10 MG TABLET. PO SCH ×3 (08:04→17:21)
[2017-10-19] MEDS: HALOPERIDOL 10 MG/5 ML ORAL.CONC. PO SCH (08:05)
[2017-10-19] MEDS: VALPROATE ACID 250 MG/5 ML ORAL SOLUTION PO SCH ×2 (08:05→19:45)
[2017-10-19] MEDS: AMANTADINE HCL 100 MG CAPSULE PO SCH ×2 (08:09→19:47)
[2017-10-19] MEDS: clonazePAM 1 MG TABLET PO SCH ×3 (08:09→19:45)
[2017-10-19] MEDS: metOLazone 5 MG TABLET PO SCH (08:09)
[2017-10-19 16:25] VITALS: BP 109/53
[2017-10-19] MEDS: MIRTAZAPINE 15 MG TABLET PO SCH (19:45)
--- NOTE | 2017-10-19 23:31 | PDOC ---
Exam Note: Napoleon Note: Please also refer to the separate dictated note~for this date of service dictated separately.~Patient seen individually. Discussed the patient with Nursing staff reviewed the chart.~Reviewed interim history and current functioning. Reviewed vital signs,~Labs/ Radiology~and current medications noted below. Continue current treatment with the changes noted in the dictated addendum note Assessment: Vital Signs: Vital Signs Date Time Temp Pulse Resp B/P (MAP) Pulse Ox O2 Delivery O2 Flow Rate FiO2 10/19/17 16:25 97.7 74 18 109/53 (71) 94 10/18/17 16:33 Room Air I&O Intake and Output 10/19/17 07:00 Intake Total 960 ml Balance 960 ml Intake Oral 960 ml Labs: Laboratory Tests Test 10/19/17 07:32 10/19/17 11:44 10/19/17 16:44 10/19/17 19:15 Glucose (Fingerstick) 144 mg/dL (70-99) H 265 mg/dL (70-99) H 191 mg/dL (70-99) H 175 mg/dL (70-99) H Current Medications: Meds: Current Medications Sodium Chloride 1,000 ml @ 1,000 mls/hr 1X ONCE IV Last administered on at 00:40; Start 10/06/17 at 22:30; Stop 10/06/17 at 23:29; Status DC Ziprasidone (Geodon Im) 20 mg 1X ONCE IM Last administered on 10/07/17at 00:06 ; Start 10/06/17 at 22:30; Stop 10/06/17 at 22:31; Status DC Diphenhydramine HCl (Benadryl) 50 mg 1X ONCE IV ; Start 10/06/17 at 22:30; Stop 10/06/17 at 23:08; Status DC Lorazepam (Ativan) 2 mg 1X ONCE IV ; Start 10/06/17 at 22:30; Stop 10/06/17 at 23:08; Status DC Diphenhydramine HCl (Benadryl) 50 mg 1X ONCE IM Last administered on at 23:09; Start 10/06/17 at 23:15; Stop 10/06/17 at 23:16; Status DC Lorazepam (Ativan) 2 mg 1X ONCE IM Last administered on 10/06/17at 23:09; Start 10/06/17 at 23:15; Stop 10/06/17 at 23:16; Status DC Ziprasidone (Geodon Im) 20 mg 1X ONCE IM ; Start 10/07/17 at 00:00; Stop at 00:01; Status DC Lorazepam (Ativan) 2 mg 1X ONCE IM Last administered on 10/07/17at 00:06; Start 10/07/17 at 00:00; Stop 10/07/17 at 00:01; Status DC Ceftriaxone Sodium (Rocephin Im) 1 gm 1X ONCE IM Last administered on at 00:40; Start 10/07/17 at 00:30; Stop 10/07/17 at 00:31; Status DC Magnesium Hydroxide (Milk Of Magnesia) 2,400 mg 1X ONCE PO Last administered on 10/07/17at 02:27; Start 10/07/17 at 02:15; Stop 10/07/17 at 02:16; Status DC Potassium Chloride (Klor-Con) 40 meq 1X ONCE PO Last administered on at 02:06; Start 10/07/17 at 02:15; Stop 10/07/17 at 02:16; Status DC Cephalexin HCl (Keflex) 500 mg TID PO Last administered on 10/10/17at 14:18; Start 10/07/17 at 09:00; Stop 10/11/17 at 19:05; Status DC Acetaminophen (Tylenol) 650 mg PRN Q6HRS PRN PO PAIN / TEMP Last administered on 10/13/17at 19:43; Start 10/07/17 at 03:45 Multi-Ingredient Ointment (Analgesic [place]) 1 guanaco PRN QID PRN TP MUSCLE PAIN; Start 10/07/17 at 03:45 Al Hydroxide/Mg Hydroxide (Mylanta Plus Xs) 15 ml PRN AFTMEALHC PRN PO DYSPEPSIA; Start 10/07/17 at 03:45 Magnesium Hydroxide (Milk Of Magnesia) 2,400 mg PRN QHS PRN PO CONSTIPATION; Start 10/07/17 at 03:45 Vitamin D (Vitamin D3) 50,000 unit QTH@0900 PO Last administered on 10/17/17at 07:49; Start 10/10/17 at 09:00 Multi-Ingredient Ointment (Analgesic [place]) 1 guanaco PRN QID PRN TP MUSCLE PAIN; Start 10/07/17 at 08:00; Status UNV Potassium Chloride (Klor-Con) 40 meq BIDWMEALS PO Last administered on at 17:21; Start 10/07/17 at 08:00 Theophylline (Theodur) 200 mg BID PO ; Start 10/07/17 at 09:00; Stop 10/07/17 at 09:00; Status DC Amantadine HCl (Symmetrel) 100 mg BID PO Last administered on 10/19/17 19:47; Start 10/07/17 at 09:00 Buspirone HCl (Buspar) 5 mg QID PO Last administered on 10/12/17at 19:26; Start 10/07/17 at 09:00; Stop 10/12/17 at 19:48; Status DC Clonazepam (KlonoPIN) 1 mg TID PO Last administered on 10/19/17at 19:45; Start 10/07/17 at 09:00 Diltiazem HCl (Cardizem 24hr Cd) 120 mg DAILY PO Last administered on at 08:04; Start 10/07/17 at 09:00 Divalproex Sodium (Depakote Sprinkles) 750 mg BID PO Last administered on at 10:18; Start 10/07/17 at 09:00; Stop 10/08/17 at 18:28; Status DC Furosemide (Lasix) 80 mg [id number] PO Last administered on 10/11/17at 13:49; Start 10/07/17 at 09:00; Stop 10/13/17 at 17:39; Status DC Non-Formulary Medication (Haloperidol Decanoate (Haldol Decanoate 100)) 450 mg [id number] IM ; Start 10/07/17 at 08:00; Stop 10/07/17 at 08:10; Status DC Non-Formulary Medication (Mag Hydrox/ Aluminum Hyd/ Simeth (Maalox Advanced Suspension)) 15 ml PRN AFTMEALHC PRN PO DYSPEPSIA; Start 10/07/17 at 08:00; Status UNV Non-Formulary Medication (Magnesium Hydroxide (Milk Of Magnesia)) 2,400 mg PRN QHS PRN PO CONSTIPATION; Start 10/07/17 at 08:00; Status UNV Magnesium Oxide (Magnesium Oxide) 400 mg BID PO Last administered on 10/19/17at 19:45; Start 10/07/17 at 09:00 Metformin HCl (Glucophage) 500 mg [id number] PO Last administered on 10/08/17at 10:19; Start 10/07/17 at 08:00; Stop 10/08/17 at 19:23; Status DC Metolazone (Zaroxolyn) 5 mg DAILY PO Last administered on 10/19/17at 08:09; Start 10/07/17 at 09:00 Mirtazapine (Remeron) 15 mg QHS PO Last administered on 10/19/17at 19:45; Start 10/07/17 at 21:00 Pioglitazone HCl (Actos) 15 mg DAILY PO Last administered on 10/19/17at 08:03; Start 10/07/17 at 09:00 Haloperidol Decanoate (Haldol Decanoate Im Extended Release) 450 mg Q24D IM ; Start 10/18/17 at 08:00; Stop 10/18/17 at 18:43; Status DC Theophylline (Theophylline Extended Release) 200 mg BID PO Last administered on 10/19/17at 19:47; Start 10/07/17 at 09:00 Lactobacillus Rhamnosus (Culturelle) 1 cap BID PO Last administered on at 19:45; Start 10/07/17 at 21:00 Clonazepam (KlonoPIN) 1 mg STK-MED ONCE .ROUTE ; Start 10/07/17 at 09:00; Stop 10/08/17 at 11:51; Status DC Clonazepam (KlonoPIN) 1 mg STK-MED ONCE .ROUTE ; Start 10/07/17 at 09:00; Stop 10/08/17 at 11:51; Status DC Clonazepam (KlonoPIN) 1 mg STK-MED ONCE .ROUTE ; Start 10/07/17 at 09:00; Stop 10/08/17 at 11:51; Status DC Diltiazem HCl (Cardizem 24hr Cd) 120 mg STK-MED ONCE PO ; Start 10/07/17 at 09: 00; Stop 10/08/17 at 11:51; Status DC Divalproex Sodium (Depakote Sprinkles) 750 mg STK-MED ONCE PO ; Start 10/07/17 at 09:00; Stop 10/08/17 at 11:51; Status DC Divalproex Sodium (Depakote Sprinkles) 750 mg STK-MED ONCE PO ; Start 10/07/17 at 09:00; Stop 10/08/17 at 11:51; Status DC Furosemide (Lasix) 80 mg STK-MED ONCE .ROUTE ; Start 10/07/17 at 09:00; Stop at 11:51; Status DC Furosemide (Lasix) 80 mg STK-MED ONCE .ROUTE ; Start 10/07/17 at 09:00; Stop at 11:51; Status DC Magnesium Oxide (Magnesium Oxide) 400 mg STK-MED ONCE .ROUTE ; Start 10/07/17 at 09:00; Stop 10/08/17 at 11:51; Status DC Metolazone (Zaroxolyn) 5 mg STK-MED ONCE .ROUTE ; Start 10/07/17 at 09:00; Stop 10/08/17 at 11:51; Status DC Mirtazapine (Remeron) 15 mg STK-MED ONCE .ROUTE ; Start 10/07/17 at 09:00; Stop 10/08/17 at 11:51; Status DC Clonazepam (KlonoPIN) 1 mg STK-MED ONCE .ROUTE ; Start 10/08/17 at 09:00; Stop 10/08/17 at 11:52; Status DC Diltiazem HCl (Cardizem 24hr Cd) 120 mg STK-MED ONCE PO ; Start 10/08/17 at 09: 00; Stop 10/08/17 at 11:52; Status DC Divalproex Sodium (Depakote Sprinkles) 750 mg STK-MED ONCE PO ; Start 10/08/17 at 09:00; Stop 10/08/17 at 11:52; Status DC Furosemide (Lasix) 80 mg STK-MED ONCE .ROUTE ; Start 10/08/17 at 09:00; Stop at 11:52; Status DC Magnesium Oxide (Magnesium Oxide) 400 mg STK-MED ONCE .ROUTE ; Start 10/08/17 at 09:00; Stop 10/08/17 at 11:52; Status DC Metolazone (Zaroxolyn) 5 mg STK-MED ONCE .ROUTE ; Start 10/08/17 at 09:00; Stop 10/08/17 at 11:52; Status DC Divalproex Sodium (Depakote Sprinkles) 1,000 mg BID PO Last administered on at 07:51; Start 10/08/17 at 21:00; Stop 10/11/17 at 09:40; Status DC Metformin HCl (Glucophage) 500 mg BIDWMEALS PO Last administered on 10/19/17at 17:22; Start 10/09/17 at 08:00 Insulin Human Lispro (HumaLOG) 0-9 UNITS TIDWMEALS SQ Last administered on 10/19at 17:25; Start 10/09/17 at 08:00 Dextrose 12.5 gm PRN Q15MIN PRN IV SEE COMMENTS; Start 10/08/17 at 19:30 Insulin Glargine (Lantus) 8 units 1X ONCE SQ Last administered on 10/08/17at 22 :10; Start 10/08/17 at 22:00; Stop 10/08/17 at 22:01; Status DC Olanzapine (ZyPREXA ZYDIS) 2.5 mg PRN Q2HR PRN PO PSYCHOSIS Last administered on 10/19/17 17:22; Start 10/09/17 at 18:45 Valproic Acid (Depakene) 1,000 mg BID PO Last administered on 10/19/17at 19:45; Start 10/11/17 at 09:30 Haloperidol Lactate (Haldol Oral) 5 mg DAILY PO Last administered on 10/15/17at 07:45; Start 10/12/17 at 09:00; Stop 10/15/17 at 18:51; Status DC Potassium Chloride (Klor-Con) 40 meq Q1HR PO Last administered on 10/12/17at 09: 19; Start 10/12/17 at 10:00; Stop 10/12/17 at 10:15; Status DC Potassium Chloride (KCl Oral Soln) 40 meq Q1HR PEG Last administered on at 12:29; Start 10/12/17 at 11:00; Stop 10/12/17 at 13:01; Status DC Divalproex Sodium (Depakote Sprinkles) 250 mg 1X ONCE PO Last administered on 10/12/17at 10:45; Start 10/12/17 at 10:45; Stop 10/12/17 at 10:46; Status DC Buspirone HCl (Buspar) 10 mg QID PO ; Start 10/12/17 at 21:00; Stop 10/12/17 at 21:00; Status DC Buspirone HCl (Buspar) 10 mg TID@0900,1300,1700 PO Last administered on at 17:15; Start 10/13/17 at 09:00; Stop 10/16/17 at 18:36; Status DC Haloperidol Lactate (Haldol Oral) 7.5 mg DAILY PO Last administered on at 08:05; Start 10/16/17 at 09:00 Trazodone HCl (Desyrel) 50 mg PRN QHS PRN PO insomnia ; Start 10/16/17 at 21:00 Buspirone HCl (Buspar) 10 mg BID@1300,1700 PO Last administered on 10/19/17at 17 :21; Start 10/17/17 at 13:00 Buspirone HCl (Buspar) 20 mg DAILY PO Last administered on 10/19/17at 08:04; Start 10/17/17 at 09:00 Non-Formulary Medication 4.5 ea Q24D IM ; Start 10/22/17 at 09:00 Active Scripts Active Reported Novolog Flexpen (Insulin Aspart) 100 Unit/1 Ml Insuln.pen 8 Unit SQ TIDBFRMEAL Theophylline Anhydrous 200 Mg Tab.er.12h 200 Mg PO BID Metolazone 5 Mg Tablet 5 Mg PO DAILY Metformin Hcl 500 Mg Tablet 500 Mg PO BIDWMEALS Metformin Hcl 500 Mg Tablet 500 Mg PO DAILY Geodon (Ziprasidone Mesylate) 20 Mg Vial 20 Mg IM DAILY Cardizem Tablet (Diltiazem Hcl) 120 Mg Tablet 120 Mg PO DAILY Amantadine (Amantadine Hcl) 100 Mg Tablet 100 Mg PO BID Actos (Pioglitazone Hcl) 15 Mg Tablet 15 Mg PO DAILY Buspirone Hcl 5 Mg Tablet 5 Mg PO QID Mirtazapine 15 Mg Tablet 15 Mg PO QHS Haldol Decanoate 100 (Haloperidol Decanoate) 100 Mg/1 Ml Ampul 450 Mg IM [id number] Depakote Sprinkle (Divalproex Sodium) 125 Mg Cap.sprink 750 Mg PO BID Klor-Con M20 (Potassium Chloride) 20 Meq Tab.er.prt 40 Meq PO BIDWMEALS Analgesic [place] (Methyl Salicylate/Menthol) 28 Gm Oint...g. 1 Guanaco TP PRN QID PRN Magnesium Oxide 400 Mg Tablet 400 Mg PO BID Milk Of Magnesia (Magnesium Hydroxide) 2,400 Mg/10 Ml Oral.susp 2,400 Mg PO PRN QHS PRN Maalox Advanced Suspension (Mag Hydrox/Aluminum Hyd/Simeth) 355 Ml Oral.susp 15 Ml PO PRN AFTMEALHC PRN D3-50 (Cholecalciferol (Vitamin D3)) 50,000 Unit Capsule 50,000 Unit PO QTH Levemir Flextouch (Insulin Detemir) 100 Unit/1 Ml Insuln.pen 55 Unit SQ QHS Clonazepam 1 Mg Tablet 1 Mg PO TID Furosemide 40 Mg Tablet 80 Mg PO [id number] Hold for SBP less than 100. After held dose, reassess in 2 hours. If SBP is above threshold, administer dose as ordered. If SBP is below threshold, contact provider for additional instructions. I have reviewed the current psychotropics carefully including drug interactions. Risk benefit ratio favors no change other than as noted in my dictated progress note. Diagnosis: Problems: (1) Depression (2) Schizoaffective disorder (3) Anxiety disorder (4) Impulse control disorder (5) Schizoaffective disorder, chronic condition with acute exacerbation (6) Mental status change KALIN STARKS MD October 19, 2017 23:31
[2017-10-20 06:29] VITALS: BP 149/66
[2017-10-20] MEDS: HALOPERIDOL 10 MG/5 ML ORAL.CONC. PO SCH (07:29)
[2017-10-20] MEDS: VALPROATE ACID 250 MG/5 ML ORAL SOLUTION PO SCH ×2 (07:30→19:47)
[2017-10-20] MEDS: PIOGLITAZONE 15 MG TABLET. PO SCH (07:32)
[2017-10-20] MEDS: POTASSIUM CHLORIDE 20 MEQ TABLET.ER. PO SCH ×2 (07:32→17:00)
[2017-10-20] MEDS: LACTOBACILLUS RHAMNOSUS GG 1 CAPSULE. PO SCH ×2 (07:32→19:47)
[2017-10-20] MEDS: busPIRone 10 MG TABLET. PO SCH ×3 (07:33→17:20)
[2017-10-20] MEDS: metFORMIN 500 MG TABLET PO SCH ×2 (07:33→17:20)
[2017-10-20] MEDS: MAGNESIUM OXIDE 400 MG TABLET PO SCH ×2 (07:33→19:47)
[2017-10-20] MEDS: metOLazone 5 MG TABLET PO SCH (07:37)
[2017-10-20] MEDS: THEOPHYLLINE ANHYDROUS 400 MG TABLET.ER. PO SCH ×2 (07:37→19:50)
[2017-10-20] MEDS: clonazePAM 1 MG TABLET PO SCH ×3 (07:37→19:47)
[2017-10-20] MEDS: AMANTADINE HCL 100 MG CAPSULE PO SCH ×2 (07:37→19:49)
[2017-10-20] MEDS: INSULIN LISPRO 300 UNITS/3 ML INSULN.PEN. SQ SCH ×3 (07:38→17:22)
[2017-10-20 11:09] LABS: ALBUMIN 2.9 g/dL (3.4-5.0); ALBUMIN/GLOBULIN RATIO 0.6 (1.0-1.7); CALCIUM 8.7 mg/dL (8.5-10.1); POTASSIUM 3.8 mmol/L (3.5-5.1); TOTAL BILIRUBIN 0.1 mg/dL (0.2-1.0)
[2017-10-20 11:31] LABS: BASO % 1 % (0-3); EOS # 0.1 x10^3/uL (0.0-0.7); EOS % 2 % (0-3); HEMOGLOBIN 12.4 g/dL (12.0-15.5); LYMPH % 34 % (24-48); MEAN CORPUSCULAR HEMOGLOBIN 27 pg (25-35); MEAN CORPUSCULAR HGB CONC 32 g/dL (31-37); MEAN CORPUSCULAR VOLUME 85 fL (79-100); MONO # 0.6 x10^3/uL (0.0-1.1); MONO % 10 % (0-9); NEUT # 3.1 x10^3uL (1.8-7.7); NEUT % 53 % (31-73); PLATELET COUNT 183 x10^3/uL (140-400); RED BLOOD COUNT 4.56 x10^6/uL (3.50-5.40); RED CELL DISTRIBUTION WIDTH 16.6 % (11.5-14.5); WHITE BLOOD COUNT 5.8 x10^3/uL (4.0-11.0)
[2017-10-20 16:57] VITALS: BP 120/63
[2017-10-20] MEDS: MIRTAZAPINE 15 MG TABLET PO SCH (19:47)
--- NOTE | 2017-10-20 21:07 | PDOC ---
Exam Note: Napoleon Note: Please also refer to the separate dictated note~for this date of service dictated separately.~Patient seen individually. Discussed the patient with Nursing staff reviewed the chart.~Reviewed interim history and current functioning. Reviewed vital signs,~Labs/ Radiology~and current medications noted below. Continue current treatment with the changes noted in the dictated addendum note Assessment: Vital Signs: Vital Signs Date Time Temp Pulse Resp B/P (MAP) Pulse Ox O2 Delivery O2 Flow Rate FiO2 10/20/17 16:57 96.5 73 16 120/63 (82) 92 10/18/17 16:33 Room Air I&O Intake and Output 10/20/17 07:00 Intake Total 1480 ml Balance 1480 ml Intake Oral 1480 ml # Bowel Movements 2 Labs: Laboratory Tests Test 10/20/17 07:35 10/20/17 10:25 10/20/17 11:37 10/20/17 16:23 Glucose (Fingerstick) 112 mg/dL (70-99) H 240 mg/dL (70-99) H 192 mg/dL (70-99) H White Blood Count 5.8 x10^3/uL (4.0-11.0) Red Blood Count 4.56 x10^6/uL (3.50-5.40) Hemoglobin 12.4 g/dL (12.0-15.5) Hematocrit 39.0 % (36.0-47.0) Mean Corpuscular Volume 85 fL (79-100) Mean Corpuscular Hemoglobin 27 pg (25-35) Mean Corpuscular Hemoglobin Concent 32 g/dL (31-37) Red Cell Distribution Width 16.6 % (11.5-14.5) H Platelet Count 183 x10^3/uL (140-400) Neutrophils (%) (Auto) 53 % (31-73) Lymphocytes (%) (Auto) 34 % (24-48) Monocytes (%) (Auto) 10 % (0-9) H Eosinophils (%) (Auto) 2 % (0-3) Basophils (%) (Auto) 1 % (0-3) Neutrophils # (Auto) 3.1 x10^3uL (1.8-7.7) Lymphocytes # (Auto) 2.0 x10^3/uL (1.0-4.8) Monocytes # (Auto) 0.6 x10^3/uL (0.0-1.1) Eosinophils # (Auto) 0.1 x10^3/uL (0.0-0.7) Basophils # (Auto) 0.0 x10^3/uL (0.0-0.2) Sodium Level 136 mmol/L (136-145) Potassium Level 3.8 mmol/L (3.5-5.1) Chloride Level 95 mmol/L (98-107) L Carbon Dioxide Level 37 mmol/L (21-32) H Anion Gap 4 (6-14) L Blood Urea Nitrogen 14 mg/dL (7-20) Creatinine 1.0 mg/dL (0.6-1.0) Estimated GFR (Cockcroft-Gault) 56.0 BUN/Creatinine Ratio 14 (6-20) Glucose Level 209 mg/dL (70-99) H Calcium Level 8.7 mg/dL (8.5-10.1) Total Bilirubin 0.1 mg/dL (0.2-1.0) L Aspartate Amino Transferase (AST) 12 U/L (15-37) L Alanine Aminotransferase (ALT) 12 U/L (14-59) L Alkaline Phosphatase 114 U/L (46-116) Total Protein 8.0 g/dL (6.4-8.2) Albumin 2.9 g/dL (3.4-5.0) L Albumin/Globulin Ratio 0.6 (1.0-1.7) L Test 10/20/17 16:25 10/20/17 19:24 Glucose (Fingerstick) 177 mg/dL (70-99) H 229 mg/dL (70-99) H Current Medications: Meds: Current Medications Sodium Chloride 1,000 ml @ 1,000 mls/hr 1X ONCE IV Last administered on at 00:40; Start 10/06/17 at 22:30; Stop 10/06/17 at 23:29; Status DC Ziprasidone (Geodon Im) 20 mg 1X ONCE IM Last administered on 10/07/17at 00:06 ; Start 10/06/17 at 22:30; Stop 10/06/17 at 22:31; Status DC Diphenhydramine HCl (Benadryl) 50 mg 1X ONCE IV ; Start 10/06/17 at 22:30; Stop 10/06/17 at 23:08; Status DC Lorazepam (Ativan) 2 mg 1X ONCE IV ; Start 10/06/17 at 22:30; Stop 10/06/17 at 23:08; Status DC Diphenhydramine HCl (Benadryl) 50 mg 1X ONCE IM Last administered on at 23:09; Start 10/06/17 at 23:15; Stop 10/06/17 at 23:16; Status DC Lorazepam (Ativan) 2 mg 1X ONCE IM Last administered on 10/06/17at 23:09; Start 10/06/17 at 23:15; Stop 10/06/17 at 23:16; Status DC Ziprasidone (Geodon Im) 20 mg 1X ONCE IM ; Start 10/07/17 at 00:00; Stop at 00:01; Status DC Lorazepam (Ativan) 2 mg 1X ONCE IM Last administered on 10/07/17at 00:06; Start 10/07/17 at 00:00; Stop 10/07/17 at 00:01; Status DC Ceftriaxone Sodium (Rocephin Im) 1 gm 1X ONCE IM Last administered on at 00:40; Start 10/07/17 at 00:30; Stop 10/07/17 at 00:31; Status DC Magnesium Hydroxide (Milk Of Magnesia) 2,400 mg 1X ONCE PO Last administered on 10/07/17at 02:27; Start 10/07/17 at 02:15; Stop 10/07/17 at 02:16; Status DC Potassium Chloride (Klor-Con) 40 meq 1X ONCE PO Last administered on at 02:06; Start 10/07/17 at 02:15; Stop 10/07/17 at 02:16; Status DC Cephalexin HCl (Keflex) 500 mg TID PO Last administered on 10/10/17at 14:18; Start 10/07/17 at 09:00; Stop 10/11/17 at 19:05; Status DC Acetaminophen (Tylenol) 650 mg PRN Q6HRS PRN PO PAIN / TEMP Last administered on 10/13/17at 19:43; Start 10/07/17 at 03:45 Multi-Ingredient Ointment (Analgesic Hamel) 1 guanaco PRN QID PRN TP MUSCLE PAIN; Start 10/07/17 at 03:45 Al Hydroxide/Mg Hydroxide (Mylanta Plus Xs) 15 ml PRN AFTMEALHC PRN PO DYSPEPSIA; Start 10/07/17 at 03:45 Magnesium Hydroxide (Milk Of Magnesia) 2,400 mg PRN QHS PRN PO CONSTIPATION; Start 10/07/17 at 03:45 Vitamin D (Vitamin D3) 50,000 unit QTH@0900 PO Last administered on 10/17/17at 07:49; Start 10/10/17 at 09:00 Multi-Ingredient Ointment (Analgesic Hamel) 1 guanaco PRN QID PRN TP MUSCLE PAIN; Start 10/07/17 at 08:00; Status UNV Potassium Chloride (Klor-Con) 40 meq BIDWMEALS PO Last administered on at 17:00; Start 10/07/17 at 08:00 Theophylline (Theodur) 200 mg BID PO ; Start 10/07/17 at 09:00; Stop 10/07/17 at 09:00; Status DC Amantadine HCl (Symmetrel) 100 mg BID PO Last administered on 10/20/17at 19:49; Start 10/07/17 at 09:00 Buspirone HCl (Buspar) 5 mg QID PO Last administered on 10/12/17at 19:26; Start 10/07/17 at 09:00; Stop 10/12/17 at 19:48; Status DC Clonazepam (KlonoPIN) 1 mg TID PO Last administered on 10/20/17at 19:47; Start 10/07/17 at 09:00 Diltiazem HCl (Cardizem 24hr Cd) 120 mg DAILY PO Last administered on at 07:32; Start 10/07/17 at 09:00 Divalproex Sodium (Depakote Sprinkles) 750 mg BID PO Last administered on at 10:18; Start 10/07/17 at 09:00; Stop 10/08/17 at 18:28; Status DC Furosemide (Lasix) 80 mg BID92 PO Last administered on 10/11/17at 13:49; Start 10/07/17 at 09:00; Stop 10/13/17 at 17:39; Status DC Non-Formulary Medication (Haloperidol Decanoate (Haldol Decanoate 100)) 450 mg [id number] IM ; Start 10/07/17 at 08:00; Stop 10/07/17 at 08:10; Status DC Non-Formulary Medication (Mag Hydrox/ Aluminum Hyd/ Simeth (Maalox Advanced Suspension)) 15 ml PRN AFTMEALHC PRN PO DYSPEPSIA; Start 10/07/17 at 08:00; Status UNV Non-Formulary Medication (Magnesium Hydroxide (Milk Of Magnesia)) 2,400 mg PRN QHS PRN PO CONSTIPATION; Start 10/07/17 at 08:00; Status UNV Magnesium Oxide (Magnesium Oxide) 400 mg BID PO Last administered on 10/20/17at 19:47; Start 10/07/17 at 09:00 Metformin HCl (Glucophage) 500 mg DAILYWBKFT PO Last administered on 10/08/17at 10:19; Start 10/07/17 at 08:00; Stop 10/08/17 at 19:23; Status DC Metolazone (Zaroxolyn) 5 mg DAILY PO Last administered on 10/20/17at 07:37; Start 10/07/17 at 09:00 Mirtazapine (Remeron) 15 mg QHS PO Last administered on 10/20/17at 19:47; Start 10/07/17 at 21:00 Pioglitazone HCl (Actos) 15 mg DAILY PO Last administered on 10/20/17at 07:32; Start 10/07/17 at 09:00 Haloperidol Decanoate (Haldol Decanoate Im Extended Release) 450 mg Q24D IM ; Start 10/18/17 at 08:00; Stop 10/18/17 at 18:43; Status DC Theophylline (Theophylline Extended Release) 200 mg BID PO Last administered on 10/20/17at 19:50; Start 10/07/17 at 09:00 Lactobacillus Rhamnosus (Culturelle) 1 cap BID PO Last administered on 19:47; Start 10/07/17 at 21:00 Clonazepam (KlonoPIN) 1 mg STK-MED ONCE .ROUTE ; Start 10/07/17 at 09:00; Stop 10/08/17 at 11:51; Status DC Clonazepam (KlonoPIN) 1 mg STK-MED ONCE .ROUTE ; Start 10/07/17 at 09:00; Stop 10/08/17 at 11:51; Status DC Clonazepam (KlonoPIN) 1 mg STK-MED ONCE .ROUTE ; Start 10/07/17 at 09:00; Stop 10/08/17 at 11:51; Status DC Diltiazem HCl (Cardizem 24hr Cd) 120 mg STK-MED ONCE PO ; Start 10/07/17 at 09: 00; Stop 10/08/17 at 11:51; Status DC Divalproex Sodium (Depakote Sprinkles) 750 mg STK-MED ONCE PO ; Start 10/07/17 at 09:00; Stop 10/08/17 at 11:51; Status DC Divalproex Sodium (Depakote Sprinkles) 750 mg STK-MED ONCE PO ; Start 10/07/17 at 09:00; Stop 10/08/17 at 11:51; Status DC Furosemide (Lasix) 80 mg STK-MED ONCE .ROUTE ; Start 10/07/17 at 09:00; Stop at 11:51; Status DC Furosemide (Lasix) 80 mg STK-MED ONCE .ROUTE ; Start 10/07/17 at 09:00; Stop at 11:51; Status DC Magnesium Oxide (Magnesium Oxide) 400 mg STK-MED ONCE .ROUTE ; Start 10/07/17 at 09:00; Stop 10/08/17 at 11:51; Status DC Metolazone (Zaroxolyn) 5 mg STK-MED ONCE .ROUTE ; Start 10/07/17 at 09:00; Stop 10/08/17 at 11:51; Status DC Mirtazapine (Remeron) 15 mg STK-MED ONCE .ROUTE ; Start 10/07/17 at 09:00; Stop 10/08/17 at 11:51; Status DC Clonazepam (KlonoPIN) 1 mg STK-MED ONCE .ROUTE ; Start 10/08/17 at 09:00; Stop 10/08/17 at 11:52; Status DC Diltiazem HCl (Cardizem 24hr Cd) 120 mg STK-MED ONCE PO ; Start 10/08/17 at 09: 00; Stop 10/08/17 at 11:52; Status DC Divalproex Sodium (Depakote Sprinkles) 750 mg STK-MED ONCE PO ; Start 10/08/17 at 09:00; Stop 10/08/17 at 11:52; Status DC Furosemide (Lasix) 80 mg STK-MED ONCE .ROUTE ; Start 10/08/17 at 09:00; Stop at 11:52; Status DC Magnesium Oxide (Magnesium Oxide) 400 mg STK-MED ONCE .ROUTE ; Start 10/08/17 at 09:00; Stop 10/08/17 at 11:52; Status DC Metolazone (Zaroxolyn) 5 mg STK-MED ONCE .ROUTE ; Start 10/08/17 at 09:00; Stop 10/08/17 at 11:52; Status DC Divalproex Sodium (Depakote Sprinkles) 1,000 mg BID PO Last administered on at 07:51; Start 10/08/17 at 21:00; Stop 10/11/17 at 09:40; Status DC Metformin HCl (Glucophage) 500 mg BIDWMEALS PO Last administered on 10/20/17at 17:20; Start 10/09/17 at 08:00 Insulin Human Lispro (HumaLOG) 0-9 UNITS TIDWMEALS SQ Last administered on 10/20at 17:22; Start 10/09/17 at 08:00 Dextrose 12.5 gm PRN Q15MIN PRN IV SEE COMMENTS; Start 10/08/17 at 19:30 Insulin Glargine (Lantus) 8 units 1X ONCE SQ Last administered on 10/08/17at 22 :10; Start 10/08/17 at 22:00; Stop 10/08/17 at 22:01; Status DC Olanzapine (ZyPREXA ZYDIS) 2.5 mg PRN Q2HR PRN PO PSYCHOSIS Last administered on 10/20/17 17:20; Start 10/09/17 at 18:45 Valproic Acid (Depakene) 1,000 mg BID PO Last administered on 10/20/17at 19:47; Start 10/11/17 at 09:30 Haloperidol Lactate (Haldol Oral) 5 mg DAILY PO Last administered on 10/15/17at 07:45; Start 10/12/17 at 09:00; Stop 10/15/17 at 18:51; Status DC Potassium Chloride (Klor-Con) 40 meq Q1HR PO Last administered on 10/12/17at 09: 19; Start 10/12/17 at 10:00; Stop 10/12/17 at 10:15; Status DC Potassium Chloride (KCl Oral Soln) 40 meq Q1HR PEG Last administered on at 12:29; Start 10/12/17 at 11:00; Stop 10/12/17 at 13:01; Status DC Divalproex Sodium (Depakote Sprinkles) 250 mg 1X ONCE PO Last administered on 10/12/17at 10:45; Start 10/12/17 at 10:45; Stop 10/12/17 at 10:46; Status DC Buspirone HCl (Buspar) 10 mg QID PO ; Start 10/12/17 at 21:00; Stop 10/12/17 at 21:00; Status DC Buspirone HCl (Buspar) 10 mg TID@0900,1300,1700 PO Last administered on at 17:15; Start 10/13/17 at 09:00; Stop 10/16/17 at 18:36; Status DC Haloperidol Lactate (Haldol Oral) 7.5 mg DAILY PO Last administered on at 07:29; Start 10/16/17 at 09:00 Trazodone HCl (Desyrel) 50 mg PRN QHS PRN PO insomnia ; Start 10/16/17 at 21:00 Buspirone HCl (Buspar) 10 mg BID@1300,1700 PO Last administered on 10/20/17at 17 :20; Start 10/17/17 at 13:00 Buspirone HCl (Buspar) 20 mg DAILY PO Last administered on 10/20/17at 07:33; Start 10/17/17 at 09:00 Non-Formulary Medication 4.5 ea Q24D IM ; Start 10/22/17 at 09:00 Active Scripts Active Reported Novolog Flexpen (Insulin Aspart) 100 Unit/1 Ml Insuln.pen 8 Unit SQ TIDBFRMEAL Theophylline Anhydrous 200 Mg Tab.er.12h 200 Mg PO BID Metolazone 5 Mg Tablet 5 Mg PO DAILY Metformin Hcl 500 Mg Tablet 500 Mg PO BIDWMEALS Metformin Hcl 500 Mg Tablet 500 Mg PO DAILY Geodon (Ziprasidone Mesylate) 20 Mg Vial 20 Mg IM DAILY Cardizem Tablet (Diltiazem Hcl) 120 Mg Tablet 120 Mg PO DAILY Amantadine (Amantadine Hcl) 100 Mg Tablet 100 Mg PO BID Actos (Pioglitazone Hcl) 15 Mg Tablet 15 Mg PO DAILY Buspirone Hcl 5 Mg Tablet 5 Mg PO QID Mirtazapine 15 Mg Tablet 15 Mg PO QHS Haldol Decanoate 100 (Haloperidol Decanoate) 100 Mg/1 Ml Ampul 450 Mg IM [id number] Depakote Sprinkle (Divalproex Sodium) 125 Mg Cap.sprink 750 Mg PO BID Klor-Con M20 (Potassium Chloride) 20 Meq Tab.er.prt 40 Meq PO BIDWMEALS Analgesic Hamel (Methyl Salicylate/Menthol) 28 Gm Oint...g. 1 Guanaco TP PRN QID PRN Magnesium Oxide 400 Mg Tablet 400 Mg PO BID Milk Of Magnesia (Magnesium Hydroxide) 2,400 Mg/10 Ml Oral.susp 2,400 Mg PO PRN QHS PRN Maalox Advanced Suspension (Mag Hydrox/Aluminum Hyd/Simeth) 355 Ml Oral.susp 15 Ml PO PRN AFTMEALHC PRN D3-50 (Cholecalciferol (Vitamin D3)) 50,000 Unit Capsule 50,000 Unit PO QTH Levemir Flextouch (Insulin Detemir) 100 Unit/1 Ml Insuln.pen 55 Unit SQ QHS Clonazepam 1 Mg Tablet 1 Mg PO TID Furosemide 40 Mg Tablet 80 Mg PO [id number] Hold for SBP less than 100. After held dose, reassess in 2 hours. If SBP is above threshold, administer dose as ordered. If SBP is below threshold, contact provider for additional instructions. I have reviewed the current psychotropics carefully including drug interactions. Risk benefit ratio favors no change other than as noted in my dictated progress note. Diagnosis: Problems: (1) Depression (2) Schizoaffective disorder (3) Anxiety disorder (4) Impulse control disorder (5) Schizoaffective disorder, chronic condition with acute exacerbation (6) Mental status change KALIN STARKS MD October 20, 2017 21:07
[2017-10-21 00:23] VITALS: BP 144/50
[2017-10-21 06:24] VITALS: BP 104/50
[2017-10-21] MEDS: VALPROATE ACID 250 MG/5 ML ORAL SOLUTION PO SCH ×2 (07:39→20:44)
[2017-10-21] MEDS: MAGNESIUM OXIDE 400 MG TABLET PO SCH ×2 (07:39→20:44)
[2017-10-21] MEDS: HALOPERIDOL 10 MG/5 ML ORAL.CONC. PO SCH (07:39)
[2017-10-21] MEDS: POTASSIUM CHLORIDE 20 MEQ TABLET.ER. PO SCH ×2 (07:40→20:49)
[2017-10-21] MEDS: AMANTADINE HCL 100 MG CAPSULE PO SCH ×2 (07:40→20:46)
[2017-10-21] MEDS: LACTOBACILLUS RHAMNOSUS GG 1 CAPSULE. PO SCH ×2 (07:40→20:44)
[2017-10-21] MEDS: busPIRone 10 MG TABLET. PO SCH ×3 (07:41→20:45)
[2017-10-21] MEDS: metFORMIN 500 MG TABLET PO SCH ×2 (07:41→16:37)
[2017-10-21] MEDS: THEOPHYLLINE ANHYDROUS 400 MG TABLET.ER. PO SCH ×2 (07:44→20:46)
[2017-10-21] MEDS: metOLazone 5 MG TABLET PO SCH (07:44)
[2017-10-21] MEDS: INSULIN LISPRO 300 UNITS/3 ML INSULN.PEN. SQ SCH ×3 (07:47→17:00)
[2017-10-21] MEDS: clonazePAM 1 MG TABLET PO SCH ×3 (07:48→20:44)
[2017-10-21] MEDS: PIOGLITAZONE 15 MG TABLET. PO SCH (09:00)
[2017-10-21] MEDS ORDERED: FUROSEMIDE 40 MG TABLET PO SCH (16:00)
[2017-10-21 16:10] VITALS: BP 137/84
[2017-10-21] MEDS: FUROSEMIDE 40 MG TABLET PO SCH (16:37)
[2017-10-21] MEDS: MIRTAZAPINE 15 MG TABLET PO SCH (20:44)
--- NOTE | 2017-10-21 20:51 | PDOC ---
Exam Note: Napoleon Note: Please also refer to the separate dictated note~for this date of service dictated separately.~Patient seen individually. Discussed the patient with Nursing staff reviewed the chart.~Reviewed interim history and current functioning. Reviewed vital signs,~Labs/ Radiology~and current medications noted below. Continue current treatment with the changes noted in the dictated addendum note Assessment: Vital Signs: Vital Signs Date Time Temp Pulse Resp B/P (MAP) Pulse Ox O2 Delivery O2 Flow Rate FiO2 10/21/17 16:10 98.1 83 16 137/84 (101) 90 10/21/17 00:23 Nasal Cannula 2.0 I&O Intake and Output 10/21/17 07:00 Intake Total 1200 ml Balance 1200 ml Intake Oral 1200 ml # Voids 1 Labs: Laboratory Tests Test 10/21/17 07:39 10/21/17 11:44 10/21/17 16:57 10/21/17 20:24 Glucose (Fingerstick) 126 mg/dL (70-99) H 162 mg/dL (70-99) H 143 mg/dL (70-99) H 146 mg/dL (70-99) H Current Medications: Meds: Current Medications Sodium Chloride 1,000 ml @ 1,000 mls/hr 1X ONCE IV Last administered on at 00:40; Start 10/06/17 at 22:30; Stop 10/06/17 at 23:29; Status DC Ziprasidone (Geodon Im) 20 mg 1X ONCE IM Last administered on 10/07/17at 00:06 ; Start 10/06/17 at 22:30; Stop 10/06/17 at 22:31; Status DC Diphenhydramine HCl (Benadryl) 50 mg 1X ONCE IV ; Start 10/06/17 at 22:30; Stop 10/06/17 at 23:08; Status DC Lorazepam (Ativan) 2 mg 1X ONCE IV ; Start 10/06/17 at 22:30; Stop 10/06/17 at 23:08; Status DC Diphenhydramine HCl (Benadryl) 50 mg 1X ONCE IM Last administered on at 23:09; Start 10/06/17 at 23:15; Stop 10/06/17 at 23:16; Status DC Lorazepam (Ativan) 2 mg 1X ONCE IM Last administered on 10/06/17at 23:09; Start 10/06/17 at 23:15; Stop 10/06/17 at 23:16; Status DC Ziprasidone (Geodon Im) 20 mg 1X ONCE IM ; Start 10/07/17 at 00:00; Stop at 00:01; Status DC Lorazepam (Ativan) 2 mg 1X ONCE IM Last administered on 10/07/17at 00:06; Start 10/07/17 at 00:00; Stop 10/07/17 at 00:01; Status DC Ceftriaxone Sodium (Rocephin Im) 1 gm 1X ONCE IM Last administered on at 00:40; Start 10/07/17 at 00:30; Stop 10/07/17 at 00:31; Status DC Magnesium Hydroxide (Milk Of Magnesia) 2,400 mg 1X ONCE PO Last administered on 10/07/17at 02:27; Start 10/07/17 at 02:15; Stop 10/07/17 at 02:16; Status DC Potassium Chloride (Klor-Con) 40 meq 1X ONCE PO Last administered on at 02:06; Start 10/07/17 at 02:15; Stop 10/07/17 at 02:16; Status DC Cephalexin HCl (Keflex) 500 mg TID PO Last administered on 10/10/17at 14:18; Start 10/07/17 at 09:00; Stop 10/11/17 at 19:05; Status DC Acetaminophen (Tylenol) 650 mg PRN Q6HRS PRN PO PAIN / TEMP Last administered on 10/13/17at 19:43; Start 10/07/17 at 03:45 Multi-Ingredient Ointment (Analgesic Mahaffey) 1 guanaco PRN QID PRN TP MUSCLE PAIN; Start 10/07/17 at 03:45 Al Hydroxide/Mg Hydroxide (Mylanta Plus Xs) 15 ml PRN AFTMEALHC PRN PO DYSPEPSIA; Start 10/07/17 at 03:45 Magnesium Hydroxide (Milk Of Magnesia) 2,400 mg PRN QHS PRN PO CONSTIPATION; Start 10/07/17 at 03:45 Vitamin D (Vitamin D3) 50,000 unit QTH@0900 PO Last administered on 10/17/17at 07:49; Start 10/10/17 at 09:00 Multi-Ingredient Ointment (Analgesic Mahaffey) 1 guanaco PRN QID PRN TP MUSCLE PAIN; Start 10/07/17 at 08:00; Status UNV Potassium Chloride (Klor-Con) 40 meq BIDWMEALS PO Last administered on at 07:40; Start 10/07/17 at 08:00; Stop 10/21/17 at 15:48; Status DC Theophylline (Theodur) 200 mg BID PO ; Start 10/07/17 at 09:00; Stop 10/07/17 at 09:00; Status DC Amantadine HCl (Symmetrel) 100 mg BID PO Last administered on 10/21/17at 20:46; Start 10/07/17 at 09:00 Buspirone HCl (Buspar) 5 mg QID PO Last administered on 10/12/17at 19:26; Start 10/07/17 at 09:00; Stop 10/12/17 at 19:48; Status DC Clonazepam (KlonoPIN) 1 mg TID PO Last administered on 10/21/17at 20:44; Start 10/07/17 at 09:00 Diltiazem HCl (Cardizem 24hr Cd) 120 mg DAILY PO Last administered on at 07:32; Start 10/07/17 at 09:00 Divalproex Sodium (Depakote Sprinkles) 750 mg BID PO Last administered on at 10:18; Start 10/07/17 at 09:00; Stop 10/08/17 at 18:28; Status DC Furosemide (Lasix) 80 mg [id number] PO Last administered on 10/11/17at 13:49; Start 10/07/17 at 09:00; Stop 10/13/17 at 17:39; Status DC Non-Formulary Medication (Haloperidol Decanoate (Haldol Decanoate 100)) 450 mg [id number] IM ; Start 10/07/17 at 08:00; Status Cancel Non-Formulary Medication (Mag Hydrox/ Aluminum Hyd/ Simeth (Maalox Advanced Suspension)) 15 ml PRN AFTMEALHC PRN PO DYSPEPSIA; Start 10/07/17 at 08:00; Status UNV Non-Formulary Medication (Magnesium Hydroxide (Milk Of Magnesia)) 2,400 mg PRN QHS PRN PO CONSTIPATION; Start 10/07/17 at 08:00; Status UNV Magnesium Oxide (Magnesium Oxide) 400 mg BID PO Last administered on 10/21/17at 20:44; Start 10/07/17 at 09:00 Metformin HCl (Glucophage) 500 mg [id number] PO Last administered on 10/08/17at 10:19; Start 10/07/17 at 08:00; Stop 10/08/17 at 19:23; Status DC Metolazone (Zaroxolyn) 5 mg DAILY PO Last administered on 10/21/17at 07:44; Start 10/07/17 at 09:00 Mirtazapine (Remeron) 15 mg QHS PO Last administered on 10/21/17at 20:44; Start 10/07/17 at 21:00 Pioglitazone HCl (Actos) 15 mg DAILY PO Last administered on 10/20/17at 07:32; Start 10/07/17 at 09:00 Haloperidol Decanoate (Haldol Decanoate Im Extended Release) 450 mg Q24D IM ; Start 10/18/17 at 08:00; Stop 10/18/17 at 18:43; Status DC Theophylline (Theophylline Extended Release) 200 mg BID PO Last administered on 10/21/17at 20:46; Start 10/07/17 at 09:00 Lactobacillus Rhamnosus (Culturelle) 1 cap BID PO Last administered on at 20:44; Start 10/07/17 at 21:00 Clonazepam (KlonoPIN) 1 mg STK-MED ONCE .ROUTE ; Start 10/07/17 at 09:00; Stop 10/08/17 at 11:51; Status DC Clonazepam (KlonoPIN) 1 mg STK-MED ONCE .ROUTE ; Start 10/07/17 at 09:00; Stop 10/08/17 at 11:51; Status DC Clonazepam (KlonoPIN) 1 mg STK-MED ONCE .ROUTE ; Start 10/07/17 at 09:00; Stop 10/08/17 at 11:51; Status DC Diltiazem HCl (Cardizem 24hr Cd) 120 mg STK-MED ONCE PO ; Start 10/07/17 at 09: 00; Stop 10/08/17 at 11:51; Status DC Divalproex Sodium (Depakote Sprinkles) 750 mg STK-MED ONCE PO ; Start 10/07/17 at 09:00; Stop 10/08/17 at 11:51; Status DC Divalproex Sodium (Depakote Sprinkles) 750 mg STK-MED ONCE PO ; Start 10/07/17 at 09:00; Stop 10/08/17 at 11:51; Status DC Furosemide (Lasix) 80 mg STK-MED ONCE .ROUTE ; Start 10/07/17 at 09:00; Stop at 11:51; Status DC Furosemide (Lasix) 80 mg STK-MED ONCE .ROUTE ; Start 10/07/17 at 09:00; Stop at 11:51; Status DC Magnesium Oxide (Magnesium Oxide) 400 mg STK-MED ONCE .ROUTE ; Start 10/07/17 at 09:00; Stop 10/08/17 at 11:51; Status DC Metolazone (Zaroxolyn) 5 mg STK-MED ONCE .ROUTE ; Start 10/07/17 at 09:00; Stop 10/08/17 at 11:51; Status DC Mirtazapine (Remeron) 15 mg STK-MED ONCE .ROUTE ; Start 10/07/17 at 09:00; Stop 10/08/17 at 11:51; Status DC Clonazepam (KlonoPIN) 1 mg STK-MED ONCE .ROUTE ; Start 10/08/17 at 09:00; Stop 10/08/17 at 11:52; Status DC Diltiazem HCl (Cardizem 24hr Cd) 120 mg STK-MED ONCE PO ; Start 10/08/17 at 09: 00; Stop 10/08/17 at 11:52; Status DC Divalproex Sodium (Depakote Sprinkles) 750 mg STK-MED ONCE PO ; Start 10/08/17 at 09:00; Stop 10/08/17 at 11:52; Status DC Furosemide (Lasix) 80 mg STK-MED ONCE .ROUTE ; Start 10/08/17 at 09:00; Stop at 11:52; Status DC Magnesium Oxide (Magnesium Oxide) 400 mg STK-MED ONCE .ROUTE ; Start 10/08/17 at 09:00; Stop 10/08/17 at 11:52; Status DC Metolazone (Zaroxolyn) 5 mg STK-MED ONCE .ROUTE ; Start 10/08/17 at 09:00; Stop 10/08/17 at 11:52; Status DC Divalproex Sodium (Depakote Sprinkles) 1,000 mg BID PO Last administered on at 07:51; Start 10/08/17 at 21:00; Stop 10/11/17 at 09:40; Status DC Metformin HCl (Glucophage) 500 mg BIDWMEALS PO Last administered on 10/21/17at 16:37; Start 10/09/17 at 08:00 Insulin Human Lispro (HumaLOG) 0-9 UNITS TIDWMEALS SQ Last administered on 10/20at 17:22; Start 10/09/17 at 08:00 Dextrose 12.5 gm PRN Q15MIN PRN IV SEE COMMENTS; Start 10/08/17 at 19:30 Insulin Glargine (Lantus) 8 units 1X ONCE SQ Last administered on 10/08/17at 22 :10; Start 10/08/17 at 22:00; Stop 10/08/17 at 22:01; Status DC Olanzapine (ZyPREXA ZYDIS) 2.5 mg PRN Q2HR PRN PO PSYCHOSIS Last administered on 10/20/17at 17:20; Start 10/09/17 at 18:45 Valproic Acid (Depakene) 1,000 mg BID PO Last administered on 10/21/17at 20:44; Start 10/11/17 at 09:30 Haloperidol Lactate (Haldol Oral) 5 mg DAILY PO Last administered on 10/15/17at 07:45; Start 10/12/17 at 09:00; Stop 10/15/17 at 18:51; Status DC Potassium Chloride (Klor-Con) 40 meq Q1HR PO Last administered on 10/12/17at 09: 19; Start 10/12/17 at 10:00; Stop 10/12/17 at 10:15; Status DC Potassium Chloride (KCl Oral Soln) 40 meq Q1HR PEG Last administered on at 12:29; Start 10/12/17 at 11:00; Stop 10/12/17 at 13:01; Status DC Divalproex Sodium (Depakote Sprinkles) 250 mg 1X ONCE PO Last administered on 10/12/17at 10:45; Start 10/12/17 at 10:45; Stop 10/12/17 at 10:46; Status DC Buspirone HCl (Buspar) 10 mg QID PO ; Start 10/12/17 at 21:00; Stop 10/12/17 at 21:00; Status DC Buspirone HCl (Buspar) 10 mg TID@0900,1300,1700 PO Last administered on at 17:15; Start 10/13/17 at 09:00; Stop 10/16/17 at 18:36; Status DC Haloperidol Lactate (Haldol Oral) 7.5 mg DAILY PO Last administered on at 07:39; Start 10/16/17 at 09:00 Trazodone HCl (Desyrel) 50 mg PRN QHS PRN PO insomnia ; Start 10/16/17 at 21:00 Buspirone HCl (Buspar) 10 mg BID@1300,1700 PO Last administered on 10/21/17at 20 :45; Start 10/17/17 at 13:00 Buspirone HCl (Buspar) 20 mg DAILY PO Last administered on 10/21/17at 07:41; Start 10/17/17 at 09:00 Haloperidol Decanoate (Haldol Decanoate Im Extended Release) 450 mg Q24D IM ; Start 10/22/17 at 09:00 Potassium Chloride (Klor-Con) 40 meq TID PO Last administered on 10/21/17at 20: 49; Start 10/21/17 at 21:00 Furosemide (Lasix) 80 mg BID94 PO ; Start 10/21/17 at 16:00; Stop 10/21/17 at 16 :00; Status DC Furosemide (Lasix) 80 mg BID92 PO Last administered on 10/21/17at 16:37; Start 10/21/17 at 16:00 Active Scripts Active Reported Novolog Flexpen (Insulin Aspart) 100 Unit/1 Ml Insuln.pen 8 Unit SQ TIDBFRMEAL Theophylline Anhydrous 200 Mg Tab.er.12h 200 Mg PO BID Metolazone 5 Mg Tablet 5 Mg PO DAILY Metformin Hcl 500 Mg Tablet 500 Mg PO BIDWMEALS Metformin Hcl 500 Mg Tablet 500 Mg PO DAILY Geodon (Ziprasidone Mesylate) 20 Mg Vial 20 Mg IM DAILY Cardizem Tablet (Diltiazem Hcl) 120 Mg Tablet 120 Mg PO DAILY Amantadine (Amantadine Hcl) 100 Mg Tablet 100 Mg PO BID Actos (Pioglitazone Hcl) 15 Mg Tablet 15 Mg PO DAILY Buspirone Hcl 5 Mg Tablet 5 Mg PO QID Mirtazapine 15 Mg Tablet 15 Mg PO QHS Haldol Decanoate 100 (Haloperidol Decanoate) 100 Mg/1 Ml Ampul 450 Mg IM [id number] Depakote Sprinkle (Divalproex Sodium) 125 Mg Cap.sprink 750 Mg PO BID Klor-Con M20 (Potassium Chloride) 20 Meq Tab.er.prt 40 Meq PO BIDWMEALS Analgesic Mahaffey (Methyl Salicylate/Menthol) 28 Gm Oint...g. 1 Guanaco TP PRN QID PRN Magnesium Oxide 400 Mg Tablet 400 Mg PO BID Milk Of Magnesia (Magnesium Hydroxide) 2,400 Mg/10 Ml Oral.susp 2,400 Mg PO PRN QHS PRN Maalox Advanced Suspension (Mag Hydrox/Aluminum Hyd/Simeth) 355 Ml Oral.susp 15 Ml PO PRN AFTMEALHC PRN D3-50 (Cholecalciferol (Vitamin D3)) 50,000 Unit Capsule 50,000 Unit PO QTH Levemir Flextouch (Insulin Detemir) 100 Unit/1 Ml Insuln.pen 55 Unit SQ QHS Clonazepam 1 Mg Tablet 1 Mg PO TID Furosemide 40 Mg Tablet 80 Mg PO [id number] Hold for SBP less than 100. After held dose, reassess in 2 hours. If SBP is above threshold, administer dose as ordered. If SBP is below threshold, contact provider for additional instructions. I have reviewed the current psychotropics carefully including drug interactions. Risk benefit ratio favors no change other than as noted in my dictated progress note. Diagnosis: Problems: (1) Depression (2) Schizoaffective disorder (3) Anxiety disorder (4) Impulse control disorder (5) Schizoaffective disorder, chronic condition with acute exacerbation (6) Mental status change KALIN STARKS MD October 21, 2017 20:51
--- NOTE | 2017-10-21 23:03 | PN ---
DATE: 10/19/2017 PSYCHIATRIC PROGRESS NOTE This is a late entry 10/19/2017 covers elements not covered in my initial note. SUBJECTIVE: I met with the patient in the evening. She slept 4-3/4 hours previous evening, resistive to medications, took them at 11 a.m., irritable, cursing, yelling at staff. REVIEW OF SYSTEMS: No CV, , pulmonary, eye, ENT system symptoms on review. MENTAL STATUS EXAM: Oriented to herself and situation. Speech coherent, high speech, loud. Abstraction fair, computation impaired, language function intact, attention span short. Mood and affect remain somewhat labile. LABORATORY DATA: Reviewed. IMPRESSION: Unchanged from initial note. She has been cursing, yelling. Process, behavior modification. MAN Mary STARKS MD DR: TRACIE/karli JOB#: [id number] / [id number]
--- NOTE | 2017-10-21 23:25 | PN ---
DATE: 10/18/2017 PSYCHIATRIC PROGRESS NOTE This is a late entry 10/18/2017 covers elements not covered in my initial note. SUBJECTIVE: I met with the patient in the evening. Argumentative, demanding, attention seeking at times, difficult to redirect meds given in grape juice, resistive with insulin. REVIEW OF SYSTEMS: Ambulation impaired, in wheelchair. No CV, , pulmonary, eye, ENT system symptoms on review. MENTAL STATUS EXAM: Oriented to herself and situation. Speech coherent, rapid at times. Abstraction fair, computation impaired, language function intact. Attention span short. IMPRESSION: Unchanged from initial note, schizoaffective disorder, bipolar type, mixed with psychotic features; cognitive disorder, unspecified. PLAN: Continue psychotropics from initial note. Valproic acid level therapeutic at 85. MAN Mary STARKS MD DR: TRACIE/karli JOB#: [id number] / [id number]
[2017-10-22] MEDS: PIOGLITAZONE 15 MG TABLET. PO SCH (07:22)
[2017-10-22] MEDS: FUROSEMIDE 40 MG TABLET PO SCH ×2 (07:23→12:56)
[2017-10-22] MEDS: MAGNESIUM OXIDE 400 MG TABLET PO SCH ×2 (07:23→19:16)
[2017-10-22] MEDS: POTASSIUM CHLORIDE 20 MEQ TABLET.ER. PO SCH ×3 (07:23→19:17)
[2017-10-22] MEDS: LACTOBACILLUS RHAMNOSUS GG 1 CAPSULE. PO SCH ×2 (07:23→19:16)
[2017-10-22] MEDS: busPIRone 10 MG TABLET. PO SCH ×3 (07:23→16:53)
[2017-10-22] MEDS: metFORMIN 500 MG TABLET PO SCH ×2 (07:23→16:53)
[2017-10-22] MEDS: clonazePAM 1 MG TABLET PO SCH ×3 (07:24→19:25)
[2017-10-22] MEDS: VALPROATE ACID 250 MG/5 ML ORAL SOLUTION PO SCH ×2 (07:24→19:16)
[2017-10-22] MEDS: HALOPERIDOL 10 MG/5 ML ORAL.CONC. PO SCH (07:24)
[2017-10-22] MEDS: INSULIN LISPRO 300 UNITS/3 ML INSULN.PEN. SQ SCH ×3 (07:25→16:58)
[2017-10-22] MEDS: metOLazone 5 MG TABLET PO SCH (07:34)
[2017-10-22] MEDS: THEOPHYLLINE ANHYDROUS 400 MG TABLET.ER. PO SCH ×2 (07:35→19:19)
[2017-10-22] MEDS: AMANTADINE HCL 100 MG CAPSULE PO SCH ×2 (07:35→19:19)
[2017-10-22] MEDS ORDERED: HALOPERIDOL DECANOATE IM ER 100 MG/ML VIAL. IM SCH (09:00)
[2017-10-22 12:00] VITALS: BP 146/68
[2017-10-22 16:24] VITALS: BP 127/78
[2017-10-22] MEDS: MIRTAZAPINE 15 MG TABLET PO SCH (19:16)
--- NOTE | 2017-10-22 20:54 | PDOC ---
Exam Note: Napoleon Note: Please also refer to the separate dictated note~for this date of service dictated separately.~Patient seen individually. Discussed the patient with Nursing staff reviewed the chart.~Reviewed interim history and current functioning. Reviewed vital signs,~Labs/ Radiology~and current medications noted below. Continue current treatment with the changes noted in the dictated addendum note Assessment: Vital Signs: Vital Signs Date Time Temp Pulse Resp B/P (MAP) Pulse Ox O2 Delivery O2 Flow Rate FiO2 10/22/17 16:24 98.0 82 20 127/78 (94) 92 10/21/17 00:23 Nasal Cannula 2.0 I&O Intake and Output 10/22/17 07:00 Intake Total 600 ml Balance 600 ml Intake Oral 600 ml Labs: Laboratory Tests Test 10/22/17 07:04 10/22/17 11:21 10/22/17 16:46 10/22/17 19:35 Glucose (Fingerstick) 108 mg/dL (70-99) H 183 mg/dL (70-99) H 233 mg/dL (70-99) H 168 mg/dL (70-99) H Current Medications: Meds: Current Medications Sodium Chloride 1,000 ml @ 1,000 mls/hr 1X ONCE IV Last administered on at 00:40; Start 10/06/17 at 22:30; Stop 10/06/17 at 23:29; Status DC Ziprasidone (Geodon Im) 20 mg 1X ONCE IM Last administered on 10/07/17at 00:06 ; Start 10/06/17 at 22:30; Stop 10/06/17 at 22:31; Status DC Diphenhydramine HCl (Benadryl) 50 mg 1X ONCE IV ; Start 10/06/17 at 22:30; Stop 10/06/17 at 23:08; Status DC Lorazepam (Ativan) 2 mg 1X ONCE IV ; Start 10/06/17 at 22:30; Stop 10/06/17 at 23:08; Status DC Diphenhydramine HCl (Benadryl) 50 mg 1X ONCE IM Last administered on at 23:09; Start 10/06/17 at 23:15; Stop 10/06/17 at 23:16; Status DC Lorazepam (Ativan) 2 mg 1X ONCE IM Last administered on 10/06/17at 23:09; Start 10/06/17 at 23:15; Stop 10/06/17 at 23:16; Status DC Ziprasidone (Geodon Im) 20 mg 1X ONCE IM ; Start 10/07/17 at 00:00; Stop at 00:01; Status DC Lorazepam (Ativan) 2 mg 1X ONCE IM Last administered on 10/07/17at 00:06; Start 10/07/17 at 00:00; Stop 10/07/17 at 00:01; Status DC Ceftriaxone Sodium (Rocephin Im) 1 gm 1X ONCE IM Last administered on at 00:40; Start 10/07/17 at 00:30; Stop 10/07/17 at 00:31; Status DC Magnesium Hydroxide (Milk Of Magnesia) 2,400 mg 1X ONCE PO Last administered on 10/07/17at 02:27; Start 10/07/17 at 02:15; Stop 10/07/17 at 02:16; Status DC Potassium Chloride (Klor-Con) 40 meq 1X ONCE PO Last administered on at 02:06; Start 10/07/17 at 02:15; Stop 10/07/17 at 02:16; Status DC Cephalexin HCl (Keflex) 500 mg TID PO Last administered on 10/10/17at 14:18; Start 10/07/17 at 09:00; Stop 10/11/17 at 19:05; Status DC Acetaminophen (Tylenol) 650 mg PRN Q6HRS PRN PO PAIN / TEMP Last administered on 10/13/17at 19:43; Start 10/07/17 at 03:45 Multi-Ingredient Ointment (Analgesic Washburn) 1 guanaco PRN QID PRN TP MUSCLE PAIN; Start 10/07/17 at 03:45 Al Hydroxide/Mg Hydroxide (Mylanta Plus Xs) 15 ml PRN AFTMEALHC PRN PO DYSPEPSIA; Start 10/07/17 at 03:45 Magnesium Hydroxide (Milk Of Magnesia) 2,400 mg PRN QHS PRN PO CONSTIPATION; Start 10/07/17 at 03:45 Vitamin D (Vitamin D3) 50,000 unit QTH@0900 PO Last administered on 10/17/17at 07:49; Start 10/10/17 at 09:00 Multi-Ingredient Ointment (Analgesic Washburn) 1 guanaco PRN QID PRN TP MUSCLE PAIN; Start 10/07/17 at 08:00; Status UNV Potassium Chloride (Klor-Con) 40 meq BIDWMEALS PO Last administered on at 07:40; Start 10/07/17 at 08:00; Stop 10/21/17 at 15:48; Status DC Theophylline (Theodur) 200 mg BID PO ; Start 10/07/17 at 09:00; Stop 10/07/17 at 09:00; Status DC Amantadine HCl (Symmetrel) 100 mg BID PO Last administered on 10/22/17 19:19; Start 10/07/17 at 09:00 Buspirone HCl (Buspar) 5 mg QID PO Last administered on 10/12/17at 19:26; Start 10/07/17 at 09:00; Stop 10/12/17 at 19:48; Status DC Clonazepam (KlonoPIN) 1 mg TID PO Last administered on 10/22/17 19:25; Start 10/07/17 at 09:00 Diltiazem HCl (Cardizem 24hr Cd) 120 mg DAILY PO Last administered on 07:50; Start 10/07/17 at 09:00 Divalproex Sodium (Depakote Sprinkles) 750 mg BID PO Last administered on at 10:18; Start 10/07/17 at 09:00; Stop 10/08/17 at 18:28; Status DC Furosemide (Lasix) 80 mg [id number] PO Last administered on 10/11/17at 13:49; Start 10/07/17 at 09:00; Stop 10/13/17 at 17:39; Status DC Non-Formulary Medication (Haloperidol Decanoate (Haldol Decanoate 100)) 450 mg [id number] IM ; Start 10/07/17 at 08:00; Status Cancel Non-Formulary Medication (Mag Hydrox/ Aluminum Hyd/ Simeth (Maalox Advanced Suspension)) 15 ml PRN AFTMEALHC PRN PO DYSPEPSIA; Start 10/07/17 at 08:00; Status UNV Non-Formulary Medication (Magnesium Hydroxide (Milk Of Magnesia)) 2,400 mg PRN QHS PRN PO CONSTIPATION; Start 10/07/17 at 08:00; Status UNV Magnesium Oxide (Magnesium Oxide) 400 mg BID PO Last administered on 10/22/17 19:16; Start 10/07/17 at 09:00 Metformin HCl (Glucophage) 500 mg [id number] PO Last administered on 10/08/17at 10:19; Start 10/07/17 at 08:00; Stop 10/08/17 at 19:23; Status DC Metolazone (Zaroxolyn) 5 mg DAILY PO Last administered on 10/22/17at 07:34; Start 10/07/17 at 09:00 Mirtazapine (Remeron) 15 mg QHS PO Last administered on 10/22/17 19:16; Start 10/07/17 at 21:00 Pioglitazone HCl (Actos) 15 mg DAILY PO Last administered on 10/22/17 07:22; Start 10/07/17 at 09:00 Haloperidol Decanoate (Haldol Decanoate Im Extended Release) 450 mg Q24D IM ; Start 10/18/17 at 08:00; Stop 10/18/17 at 18:43; Status DC Theophylline (Theophylline Extended Release) 200 mg BID PO Last administered on 10/22/17 19:19; Start 10/07/17 at 09:00 Lactobacillus Rhamnosus (Culturelle) 1 cap BID PO Last administered on 19:16; Start 10/07/17 at 21:00 Clonazepam (KlonoPIN) 1 mg STK-MED ONCE .ROUTE ; Start 10/07/17 at 09:00; Stop 10/08/17 at 11:51; Status DC Clonazepam (KlonoPIN) 1 mg STK-MED ONCE .ROUTE ; Start 10/07/17 at 09:00; Stop 10/08/17 at 11:51; Status DC Clonazepam (KlonoPIN) 1 mg STK-MED ONCE .ROUTE ; Start 10/07/17 at 09:00; Stop 10/08/17 at 11:51; Status DC Diltiazem HCl (Cardizem 24hr Cd) 120 mg STK-MED ONCE PO ; Start 10/07/17 at 09: 00; Stop 10/08/17 at 11:51; Status DC Divalproex Sodium (Depakote Sprinkles) 750 mg STK-MED ONCE PO ; Start 10/07/17 at 09:00; Stop 10/08/17 at 11:51; Status DC Divalproex Sodium (Depakote Sprinkles) 750 mg STK-MED ONCE PO ; Start 10/07/17 at 09:00; Stop 10/08/17 at 11:51; Status DC Furosemide (Lasix) 80 mg STK-MED ONCE .ROUTE ; Start 10/07/17 at 09:00; Stop at 11:51; Status DC Furosemide (Lasix) 80 mg STK-MED ONCE .ROUTE ; Start 10/07/17 at 09:00; Stop at 11:51; Status DC Magnesium Oxide (Magnesium Oxide) 400 mg STK-MED ONCE .ROUTE ; Start 10/07/17 at 09:00; Stop 10/08/17 at 11:51; Status DC Metolazone (Zaroxolyn) 5 mg STK-MED ONCE .ROUTE ; Start 10/07/17 at 09:00; Stop 10/08/17 at 11:51; Status DC Mirtazapine (Remeron) 15 mg STK-MED ONCE .ROUTE ; Start 10/07/17 at 09:00; Stop 10/08/17 at 11:51; Status DC Clonazepam (KlonoPIN) 1 mg STK-MED ONCE .ROUTE ; Start 10/08/17 at 09:00; Stop 10/08/17 at 11:52; Status DC Diltiazem HCl (Cardizem 24hr Cd) 120 mg STK-MED ONCE PO ; Start 10/08/17 at 09: 00; Stop 10/08/17 at 11:52; Status DC Divalproex Sodium (Depakote Sprinkles) 750 mg STK-MED ONCE PO ; Start 10/08/17 at 09:00; Stop 10/08/17 at 11:52; Status DC Furosemide (Lasix) 80 mg STK-MED ONCE .ROUTE ; Start 10/08/17 at 09:00; Stop at 11:52; Status DC Magnesium Oxide (Magnesium Oxide) 400 mg STK-MED ONCE .ROUTE ; Start 10/08/17 at 09:00; Stop 10/08/17 at 11:52; Status DC Metolazone (Zaroxolyn) 5 mg STK-MED ONCE .ROUTE ; Start 10/08/17 at 09:00; Stop 10/08/17 at 11:52; Status DC Divalproex Sodium (Depakote Sprinkles) 1,000 mg BID PO Last administered on at 07:51; Start 10/08/17 at 21:00; Stop 10/11/17 at 09:40; Status DC Metformin HCl (Glucophage) 500 mg BIDWMEALS PO Last administered on 10/22/17at 16:53; Start 10/09/17 at 08:00 Insulin Human Lispro (HumaLOG) 0-9 UNITS TIDWMEALS SQ Last administered on 10/22 16:58; Start 10/09/17 at 08:00 Dextrose 12.5 gm PRN Q15MIN PRN IV SEE COMMENTS; Start 10/08/17 at 19:30 Insulin Glargine (Lantus) 8 units 1X ONCE SQ Last administered on 10/08/17at 22 :10; Start 10/08/17 at 22:00; Stop 10/08/17 at 22:01; Status DC Olanzapine (ZyPREXA ZYDIS) 2.5 mg PRN Q2HR PRN PO PSYCHOSIS Last administered on 10/22/17at 16:54; Start 10/09/17 at 18:45 Valproic Acid (Depakene) 1,000 mg BID PO Last administered on 10/22/17 19:16; Start 10/11/17 at 09:30 Haloperidol Lactate (Haldol Oral) 5 mg DAILY PO Last administered on 10/15/17at 07:45; Start 10/12/17 at 09:00; Stop 10/15/17 at 18:51; Status DC Potassium Chloride (Klor-Con) 40 meq Q1HR PO Last administered on 10/12/17at 09: 19; Start 10/12/17 at 10:00; Stop 10/12/17 at 10:15; Status DC Potassium Chloride (KCl Oral Soln) 40 meq Q1HR PEG Last administered on at 12:29; Start 10/12/17 at 11:00; Stop 10/12/17 at 13:01; Status DC Divalproex Sodium (Depakote Sprinkles) 250 mg 1X ONCE PO Last administered on 10/12/17at 10:45; Start 10/12/17 at 10:45; Stop 10/12/17 at 10:46; Status DC Buspirone HCl (Buspar) 10 mg QID PO ; Start 10/12/17 at 21:00; Stop 10/12/17 at 21:00; Status DC Buspirone HCl (Buspar) 10 mg TID@0900,1300,1700 PO Last administered on at 17:15; Start 10/13/17 at 09:00; Stop 10/16/17 at 18:36; Status DC Haloperidol Lactate (Haldol Oral) 7.5 mg DAILY PO Last administered on at 07:24; Start 10/16/17 at 09:00 Trazodone HCl (Desyrel) 50 mg PRN QHS PRN PO insomnia Last administered on at 19:19; Start 10/16/17 at 21:00 Buspirone HCl (Buspar) 10 mg BID@1300,1700 PO Last administered on 10/22/17at 16 :53; Start 10/17/17 at 13:00 Buspirone HCl (Buspar) 20 mg DAILY PO Last administered on 10/22/17at 07:23; Start 10/17/17 at 09:00 Haloperidol Decanoate (Haldol Decanoate Im Extended Release) 450 mg Q24D IM ; Start 10/22/17 at 09:00; Stop 10/22/17 at 16:52; Status DC Potassium Chloride (Klor-Con) 40 meq TID PO Last administered on 10/22/17at 19: 17; Start 10/21/17 at 21:00 Furosemide (Lasix) 80 mg BID94 PO ; Start 10/21/17 at 16:00; Stop 10/21/17 at 16 :00; Status DC Furosemide (Lasix) 80 mg BID92 PO Last administered on 10/22/17at 12:56; Start 10/21/17 at 16:00 Haloperidol Decanoate (Haldol Decanoate Im Extended Release) 450 mg Q24D IM ; Start 10/23/17 at 09:00; Stop 10/23/17 at 09:00; Status DC Haloperidol Decanoate (Haldol Decanoate Im Extended Release) 450 mg Q24D IM ; Start 10/22/18 at 21:00 Trazodone HCl (Desyrel) 25 mg TID@0900,1300,1700 PO ; Start 10/23/17 at 09:00 Active Scripts Active Reported Novolog Flexpen (Insulin Aspart) 100 Unit/1 Ml Insuln.pen 8 Unit SQ TIDBFRMEAL Theophylline Anhydrous 200 Mg Tab.er.12h 200 Mg PO BID Metolazone 5 Mg Tablet 5 Mg PO DAILY Metformin Hcl 500 Mg Tablet 500 Mg PO BIDWMEALS Metformin Hcl 500 Mg Tablet 500 Mg PO DAILY Geodon (Ziprasidone Mesylate) 20 Mg Vial 20 Mg IM DAILY Cardizem Tablet (Diltiazem Hcl) 120 Mg Tablet 120 Mg PO DAILY Amantadine (Amantadine Hcl) 100 Mg Tablet 100 Mg PO BID Actos (Pioglitazone Hcl) 15 Mg Tablet 15 Mg PO DAILY Buspirone Hcl 5 Mg Tablet 5 Mg PO QID Mirtazapine 15 Mg Tablet 15 Mg PO QHS Haldol Decanoate 100 (Haloperidol Decanoate) 100 Mg/1 Ml Ampul 450 Mg IM [id number] Depakote Sprinkle (Divalproex Sodium) 125 Mg Cap.sprink 750 Mg PO BID Klor-Con M20 (Potassium Chloride) 20 Meq Tab.er.prt 40 Meq PO BIDWMEALS Analgesic [place]burn (Methyl Salicylate/Menthol) 28 Gm Oint...g. 1 Guanaco TP PRN QID PRN Magnesium Oxide 400 Mg Tablet 400 Mg PO BID Milk Of Magnesia (Magnesium Hydroxide) 2,400 Mg/10 Ml Oral.susp 2,400 Mg PO PRN QHS PRN Maalox Advanced Suspension (Mag Hydrox/Aluminum Hyd/Simeth) 355 Ml Oral.susp 15 Ml PO PRN AFTMEALHC PRN D3-50 (Cholecalciferol (Vitamin D3)) 50,000 Unit Capsule 50,000 Unit PO QTH Levemir Flextouch (Insulin Detemir) 100 Unit/1 Ml Insuln.pen 55 Unit SQ QHS Clonazepam 1 Mg Tablet 1 Mg PO TID Furosemide 40 Mg Tablet 80 Mg PO [id number] Hold for SBP less than 100. After held dose, reassess in 2 hours. If SBP is above threshold, administer dose as ordered. If SBP is below threshold, contact provider for additional instructions. I have reviewed the current psychotropics carefully including drug interactions. Risk benefit ratio favors no change other than as noted in my dictated progress note. Diagnosis: Problems: (1) Depression (2) Schizoaffective disorder (3) Anxiety disorder (4) Impulse control disorder (5) Schizoaffective disorder, chronic condition with acute exacerbation (6) Mental status change KALIN STARKS MD October 22, 2017 20:54
[2017-10-22] MEDS ORDERED: HALOPERIDOL DECANOATE IM ER 100 MG/ML VIAL. IM ONE (22:00)
[2017-10-23 06:10] VITALS: BP 133/83
[2017-10-23] MEDS: VALPROATE ACID 250 MG/5 ML ORAL SOLUTION PO SCH ×2 (07:46→19:46)
[2017-10-23] MEDS: busPIRone 10 MG TABLET. PO SCH ×3 (07:47→17:35)
[2017-10-23] MEDS: LACTOBACILLUS RHAMNOSUS GG 1 CAPSULE. PO SCH ×2 (07:47→19:45)
[2017-10-23] MEDS: HALOPERIDOL 10 MG/5 ML ORAL.CONC. PO SCH (07:47)
[2017-10-23] MEDS: PIOGLITAZONE 15 MG TABLET. PO SCH (07:47)
[2017-10-23] MEDS: FUROSEMIDE 40 MG TABLET PO SCH ×2 (07:47→14:17)
[2017-10-23] MEDS: metOLazone 5 MG TABLET PO SCH (07:47)
[2017-10-23] MEDS: THEOPHYLLINE ANHYDROUS 400 MG TABLET.ER. PO SCH ×2 (07:48→19:49)
[2017-10-23] MEDS: metFORMIN 500 MG TABLET PO SCH ×2 (07:48→17:35)
[2017-10-23] MEDS: MAGNESIUM OXIDE 400 MG TABLET PO SCH ×2 (07:48→19:46)
[2017-10-23] MEDS: AMANTADINE HCL 100 MG CAPSULE PO SCH ×2 (07:49→19:50)
[2017-10-23] MEDS: POTASSIUM CHLORIDE 20 MEQ TABLET.ER. PO SCH ×3 (07:50→19:46)
[2017-10-23] MEDS: clonazePAM 1 MG TABLET PO SCH ×3 (07:51→19:49)
[2017-10-23] MEDS: traZODone 50 MG TABLET. PO SCH ×3 (07:52→17:35)
[2017-10-23] MEDS: INSULIN LISPRO 300 UNITS/3 ML INSULN.PEN. SQ SCH ×4 (07:57→17:36)
[2017-10-23] MEDS ORDERED: HALOPERIDOL DECANOATE IM ER 100 MG/ML VIAL. IM SCH (09:00)
--- NOTE | 2017-10-23 12:48 | PN ---
DATE: 10/20/2017 PSYCHIATRIC PROGRESS NOTE This is a late entry 10/20/2017 covers elements not covered in my initial note. SUBJECTIVE: I met with the patient in the evening. The patient remains somewhat anxious, labile at times, hyperverbal, but redirects. REVIEW OF SYSTEMS: Ambulation impaired, in wheelchair. No CV, , pulmonary, eye system symptoms on review. MENTAL STATUS EXAM: Oriented to herself and situation. Speech can be rapid at times. Abstraction fair, computation impaired, language function intact. Mood and affect somewhat labile at times, but improved. She is quite obsessive, repetitive about getting to the toilet and restroom. LABORATORY DATA: Reviewed. IMPRESSION: Unchanged from initial note. PLAN: No change from initial note. MAN Mary STARKS MD DR: TRACIE/karli JOB#: [id number] / [id number]
--- NOTE | 2017-10-23 12:53 | PN ---
DATE: 10/21/2017 This late entry, 10/21/2017, covers elements not covered in my initial note. SUBJECTIVE: I met with the patient in the evening. She refused the medications. They have to be hidden. Haldol Decanoate has been delayed due to pharmacy issues and she will get that on 10/22/2017, which should help as well. Valproic acid level is 85. REVIEW OF SYSTEMS: Ambulation impaired, in wheelchair. No CV, , pulmonary, eye system symptoms on review. Reliability poor. MENTAL STATUS EXAM: Oriented to herself and situation. Speech coherent, can be rapid at times. Abstraction fair, computation impaired, language function intact, attention span short. Mood and affect, still some lability persists with the paranoia, but improved. LABORATORY DATA: Reviewed. IMPRESSION: Unchanged from initial note. PLAN: Continue psychotropics per initial note. MAN Mary STARKS MD DR: TRACIE/karli JOB#: [id number] / [id number]
[2017-10-23 16:20] VITALS: BP 114/76
[2017-10-23] MEDS: MIRTAZAPINE 15 MG TABLET PO SCH (19:46)
[2017-10-23] MEDS: traZODone 100 MG TABLET. PO PRN (19:55)
--- NOTE | 2017-10-23 21:09 | PDOC ---
Exam Note: [place] Note: Please also refer to the separate dictated note~for this date of service dictated separately.~Patient seen individually. Discussed the patient with Nursing staff reviewed the chart.~Reviewed interim history and current functioning. Reviewed vital signs,~Labs/ Radiology~and current medications noted below. Continue current treatment with the changes noted in the dictated addendum note Assessment: Vital Signs: Vital Signs Date Time Temp Pulse Resp B/P (MAP) Pulse Ox O2 Delivery O2 Flow Rate FiO2 10/23/17 16:20 97.1 80 16 114/76 (89) 100 Room Air 10/21/17 00:23 2.0 I&O Intake and Output 10/23/17 07:00 Intake Total 840 ml Balance 840 ml Intake Oral 840 ml Labs: Laboratory Tests Test 10/23/17 07:39 10/23/17 11:06 10/23/17 16:18 10/23/17 19:21 Glucose (Fingerstick) 154 mg/dL (70-99) H 206 mg/dL (70-99) H 223 mg/dL (70-99) H 197 mg/dL (70-99) H Current Medications: Meds: Current Medications Sodium Chloride 1,000 ml @ 1,000 mls/hr 1X ONCE IV Last administered on at 00:40; Start 10/06/17 at 22:30; Stop 10/06/17 at 23:29; Status DC Ziprasidone (Geodon Im) 20 mg 1X ONCE IM Last administered on 10/07/17at 00:06 ; Start 10/06/17 at 22:30; Stop 10/06/17 at 22:31; Status DC Diphenhydramine HCl (Benadryl) 50 mg 1X ONCE IV ; Start 10/06/17 at 22:30; Stop 10/06/17 at 23:08; Status DC Lorazepam (Ativan) 2 mg 1X ONCE IV ; Start 10/06/17 at 22:30; Stop 10/06/17 at 23:08; Status DC Diphenhydramine HCl (Benadryl) 50 mg 1X ONCE IM Last administered on at 23:09; Start 10/06/17 at 23:15; Stop 10/06/17 at 23:16; Status DC Lorazepam (Ativan) 2 mg 1X ONCE IM Last administered on 10/06/17at 23:09; Start 10/06/17 at 23:15; Stop 10/06/17 at 23:16; Status DC Ziprasidone (Geodon Im) 20 mg 1X ONCE IM ; Start 10/07/17 at 00:00; Stop at 00:01; Status DC Lorazepam (Ativan) 2 mg 1X ONCE IM Last administered on 10/07/17at 00:06; Start 10/07/17 at 00:00; Stop 10/07/17 at 00:01; Status DC Ceftriaxone Sodium (Rocephin Im) 1 gm 1X ONCE IM Last administered on at 00:40; Start 10/07/17 at 00:30; Stop 10/07/17 at 00:31; Status DC Magnesium Hydroxide (Milk Of Magnesia) 2,400 mg 1X ONCE PO Last administered on 10/07/17at 02:27; Start 10/07/17 at 02:15; Stop 10/07/17 at 02:16; Status DC Potassium Chloride (Klor-Con) 40 meq 1X ONCE PO Last administered on at 02:06; Start 10/07/17 at 02:15; Stop 10/07/17 at 02:16; Status DC Cephalexin HCl (Keflex) 500 mg TID PO Last administered on 10/10/17at 14:18; Start 10/07/17 at 09:00; Stop 10/11/17 at 19:05; Status DC Acetaminophen (Tylenol) 650 mg PRN Q6HRS PRN PO PAIN / TEMP Last administered on 10/13/17at 19:43; Start 10/07/17 at 03:45 Multi-Ingredient Ointment (Analgesic [place]) 1 guanaco PRN QID PRN TP MUSCLE PAIN; Start 10/07/17 at 03:45 Al Hydroxide/Mg Hydroxide (Mylanta Plus Xs) 15 ml PRN AFTMEALHC PRN PO DYSPEPSIA; Start 10/07/17 at 03:45 Magnesium Hydroxide (Milk Of Magnesia) 2,400 mg PRN QHS PRN PO CONSTIPATION; Start 10/07/17 at 03:45 Vitamin D (Vitamin D3) 50,000 unit QTH@0900 PO Last administered on 10/17/17at 07:49; Start 10/10/17 at 09:00 Multi-Ingredient Ointment (Analgesic [place]) 1 guanaco PRN QID PRN TP MUSCLE PAIN; Start 10/07/17 at 08:00; Status UNV Potassium Chloride (Klor-Con) 40 meq BIDWMEALS PO Last administered on at 07:40; Start 10/07/17 at 08:00; Stop 10/21/17 at 15:48; Status DC Theophylline (Theodur) 200 mg BID PO ; Start 10/07/17 at 09:00; Stop 10/07/17 at 09:00; Status DC Amantadine HCl (Symmetrel) 100 mg BID PO Last administered on 10/23/17at 19:50; Start 10/07/17 at 09:00 Buspirone HCl (Buspar) 5 mg QID PO Last administered on 10/12/17at 19:26; Start 10/07/17 at 09:00; Stop 10/12/17 at 19:48; Status DC Clonazepam (KlonoPIN) 1 mg TID PO Last administered on 10/23/17at 19:49; Start 10/07/17 at 09:00 Diltiazem HCl (Cardizem 24hr Cd) 120 mg DAILY PO Last administered on at 07:49; Start 10/07/17 at 09:00 Divalproex Sodium (Depakote Sprinkles) 750 mg BID PO Last administered on at 10:18; Start 10/07/17 at 09:00; Stop 10/08/17 at 18:28; Status DC Furosemide (Lasix) 80 mg [id number] PO Last administered on 10/11/17at 13:49; Start 10/07/17 at 09:00; Stop 10/13/17 at 17:39; Status DC Non-Formulary Medication (Haloperidol Decanoate (Haldol Decanoate 100)) 450 mg [id number] IM ; Start 10/07/17 at 08:00; Status Cancel Non-Formulary Medication (Mag Hydrox/ Aluminum Hyd/ Simeth (Maalox Advanced Suspension)) 15 ml PRN AFTMEALHC PRN PO DYSPEPSIA; Start 10/07/17 at 08:00; Status UNV Non-Formulary Medication (Magnesium Hydroxide (Milk Of Magnesia)) 2,400 mg PRN QHS PRN PO CONSTIPATION; Start 10/07/17 at 08:00; Status UNV Magnesium Oxide (Magnesium Oxide) 400 mg BID PO Last administered on 10/23/17 19:46; Start 10/07/17 at 09:00 Metformin HCl (Glucophage) 500 mg [id number] PO Last administered on 10/08/17at 10:19; Start 10/07/17 at 08:00; Stop 10/08/17 at 19:23; Status DC Metolazone (Zaroxolyn) 5 mg DAILY PO Last administered on 10/23/17 07:47; Start 10/07/17 at 09:00 Mirtazapine (Remeron) 15 mg QHS PO Last administered on 10/23/17 19:46; Start 10/07/17 at 21:00 Pioglitazone HCl (Actos) 15 mg DAILY PO Last administered on 10/23/17 07:47; Start 10/07/17 at 09:00 Haloperidol Decanoate (Haldol Decanoate Im Extended Release) 450 mg Q24D IM ; Start 10/18/17 at 08:00; Stop 10/18/17 at 18:43; Status DC Theophylline (Theophylline Extended Release) 200 mg BID PO Last administered on 10/23/17 19:49; Start 10/07/17 at 09:00 Lactobacillus Rhamnosus (Culturelle) 1 cap BID PO Last administered on 19:45; Start 10/07/17 at 21:00 Clonazepam (KlonoPIN) 1 mg STK-MED ONCE .ROUTE ; Start 10/07/17 at 09:00; Stop 10/08/17 at 11:51; Status DC Clonazepam (KlonoPIN) 1 mg STK-MED ONCE .ROUTE ; Start 10/07/17 at 09:00; Stop 10/08/17 at 11:51; Status DC Clonazepam (KlonoPIN) 1 mg STK-MED ONCE .ROUTE ; Start 10/07/17 at 09:00; Stop 10/08/17 at 11:51; Status DC Diltiazem HCl (Cardizem 24hr Cd) 120 mg STK-MED ONCE PO ; Start 10/07/17 at 09: 00; Stop 10/08/17 at 11:51; Status DC Divalproex Sodium (Depakote Sprinkles) 750 mg STK-MED ONCE PO ; Start 10/07/17 at 09:00; Stop 10/08/17 at 11:51; Status DC Divalproex Sodium (Depakote Sprinkles) 750 mg STK-MED ONCE PO ; Start 10/07/17 at 09:00; Stop 10/08/17 at 11:51; Status DC Furosemide (Lasix) 80 mg STK-MED ONCE .ROUTE ; Start 10/07/17 at 09:00; Stop at 11:51; Status DC Furosemide (Lasix) 80 mg STK-MED ONCE .ROUTE ; Start 10/07/17 at 09:00; Stop at 11:51; Status DC Magnesium Oxide (Magnesium Oxide) 400 mg STK-MED ONCE .ROUTE ; Start 10/07/17 at 09:00; Stop 10/08/17 at 11:51; Status DC Metolazone (Zaroxolyn) 5 mg STK-MED ONCE .ROUTE ; Start 10/07/17 at 09:00; Stop 10/08/17 at 11:51; Status DC Mirtazapine (Remeron) 15 mg STK-MED ONCE .ROUTE ; Start 10/07/17 at 09:00; Stop 10/08/17 at 11:51; Status DC Clonazepam (KlonoPIN) 1 mg STK-MED ONCE .ROUTE ; Start 10/08/17 at 09:00; Stop 10/08/17 at 11:52; Status DC Diltiazem HCl (Cardizem 24hr Cd) 120 mg STK-MED ONCE PO ; Start 10/08/17 at 09: 00; Stop 10/08/17 at 11:52; Status DC Divalproex Sodium (Depakote Sprinkles) 750 mg STK-MED ONCE PO ; Start 10/08/17 at 09:00; Stop 10/08/17 at 11:52; Status DC Furosemide (Lasix) 80 mg STK-MED ONCE .ROUTE ; Start 10/08/17 at 09:00; Stop at 11:52; Status DC Magnesium Oxide (Magnesium Oxide) 400 mg STK-MED ONCE .ROUTE ; Start 10/08/17 at 09:00; Stop 10/08/17 at 11:52; Status DC Metolazone (Zaroxolyn) 5 mg STK-MED ONCE .ROUTE ; Start 10/08/17 at 09:00; Stop 10/08/17 at 11:52; Status DC Divalproex Sodium (Depakote Sprinkles) 1,000 mg BID PO Last administered on at 07:51; Start 10/08/17 at 21:00; Stop 10/11/17 at 09:40; Status DC Metformin HCl (Glucophage) 500 mg BIDWMEALS PO Last administered on 10/23/17 17:35; Start 10/09/17 at 08:00 Insulin Human Lispro (HumaLOG) 0-9 UNITS TIDWMEALS SQ Last administered on 10/23 17:36; Start 10/09/17 at 08:00 Dextrose 12.5 gm PRN Q15MIN PRN IV SEE COMMENTS; Start 10/08/17 at 19:30 Insulin Glargine (Lantus) 8 units 1X ONCE SQ Last administered on 10/08/17at 22 :10; Start 10/08/17 at 22:00; Stop 10/08/17 at 22:01; Status DC Olanzapine (ZyPREXA ZYDIS) 2.5 mg PRN Q2HR PRN PO PSYCHOSIS Last administered on 10/23/17 07:48; Start 10/09/17 at 18:45 Valproic Acid (Depakene) 1,000 mg BID PO Last administered on 10/23/17 19:46; Start 10/11/17 at 09:30 Haloperidol Lactate (Haldol Oral) 5 mg DAILY PO Last administered on 10/15/17at 07:45; Start 10/12/17 at 09:00; Stop 10/15/17 at 18:51; Status DC Potassium Chloride (Klor-Con) 40 meq Q1HR PO Last administered on 10/12/17at 09: 19; Start 10/12/17 at 10:00; Stop 10/12/17 at 10:15; Status DC Potassium Chloride (KCl Oral Soln) 40 meq Q1HR PEG Last administered on at 12:29; Start 10/12/17 at 11:00; Stop 10/12/17 at 13:01; Status DC Divalproex Sodium (Depakote Sprinkles) 250 mg 1X ONCE PO Last administered on 10/12/17at 10:45; Start 10/12/17 at 10:45; Stop 10/12/17 at 10:46; Status DC Buspirone HCl (Buspar) 10 mg QID PO ; Start 10/12/17 at 21:00; Stop 10/12/17 at 21:00; Status DC Buspirone HCl (Buspar) 10 mg TID@0900,1300,1700 PO Last administered on at 17:15; Start 10/13/17 at 09:00; Stop 10/16/17 at 18:36; Status DC Haloperidol Lactate (Haldol Oral) 7.5 mg DAILY PO Last administered on at 07:47; Start 10/16/17 at 09:00 Trazodone HCl (Desyrel) 50 mg PRN QHS PRN PO insomnia Last administered on at 19:19; Start 10/16/17 at 21:00; Stop 10/23/17 at 18:29; Status DC Buspirone HCl (Buspar) 10 mg BID@1300,1700 PO Last administered on 10/23/17at 17 :35; Start 10/17/17 at 13:00 Buspirone HCl (Buspar) 20 mg DAILY PO Last administered on 10/23/17at 07:47; Start 10/17/17 at 09:00 Haloperidol Decanoate (Haldol Decanoate Im Extended Release) 450 mg Q24D IM ; Start 10/22/17 at 09:00; Stop 10/22/17 at 16:52; Status DC Potassium Chloride (Klor-Con) 40 meq TID PO Last administered on 10/23/17at 19: 46; Start 10/21/17 at 21:00 Furosemide (Lasix) 80 mg BID94 PO ; Start 10/21/17 at 16:00; Stop 10/21/17 at 16 :00; Status DC Furosemide (Lasix) 80 mg BID92 PO Last administered on 10/23/17at 14:17; Start 10/21/17 at 16:00 Haloperidol Decanoate (Haldol Decanoate Im Extended Release) 450 mg Q24D IM ; Start 10/23/17 at 09:00; Stop 10/23/17 at 09:00; Status DC Haloperidol Decanoate (Haldol Decanoate Im Extended Release) 450 mg Q24D IM ; Start 10/22/18 at 21:00; Status Cancel Trazodone HCl (Desyrel) 25 mg TID@0900,1300,1700 PO Last administered on at 17:35; Start 10/23/17 at 09:00 Haloperidol Decanoate (Haldol Decanoate Im Extended Release) 450 mg Q24D ONCE IM Last administered on 10/22/17at 21:58; Start 10/22/17 at 22:00; Stop at 22:01; Status DC Trazodone HCl (Desyrel) 100 mg PRN QHS PRN PO insomnia Last administered on at 19:55; Start 10/23/17 at 18:30 Active Scripts Active Reported Novolog Flexpen (Insulin Aspart) 100 Unit/1 Ml Insuln.pen 8 Unit SQ TIDBFRMEAL Theophylline Anhydrous 200 Mg Tab.er.12h 200 Mg PO BID Metolazone 5 Mg Tablet 5 Mg PO DAILY Metformin Hcl 500 Mg Tablet 500 Mg PO BIDWMEALS Metformin Hcl 500 Mg Tablet 500 Mg PO DAILY Geodon (Ziprasidone Mesylate) 20 Mg Vial 20 Mg IM DAILY Cardizem Tablet (Diltiazem Hcl) 120 Mg Tablet 120 Mg PO DAILY Amantadine (Amantadine Hcl) 100 Mg Tablet 100 Mg PO BID Actos (Pioglitazone Hcl) 15 Mg Tablet 15 Mg PO DAILY Buspirone Hcl 5 Mg Tablet 5 Mg PO QID Mirtazapine 15 Mg Tablet 15 Mg PO QHS Haldol Decanoate 100 (Haloperidol Decanoate) 100 Mg/1 Ml Ampul 450 Mg IM [id number] Depakote Sprinkle (Divalproex Sodium) 125 Mg Cap.sprink 750 Mg PO BID Klor-Con M20 (Potassium Chloride) 20 Meq Tab.er.prt 40 Meq PO BIDWMEALS Analgesic [place] (Methyl Salicylate/Menthol) 28 Gm Oint...g. 1 Guanaco TP PRN QID PRN Magnesium Oxide 400 Mg Tablet 400 Mg PO BID Milk Of Magnesia (Magnesium Hydroxide) 2,400 Mg/10 Ml Oral.susp 2,400 Mg PO PRN QHS PRN Maalox Advanced Suspension (Mag Hydrox/Aluminum Hyd/Simeth) 355 Ml Oral.susp 15 Ml PO PRN AFTMEALHC PRN D3-50 (Cholecalciferol (Vitamin D3)) 50,000 Unit Capsule 50,000 Unit PO QTH Levemir Flextouch (Insulin Detemir) 100 Unit/1 Ml Insuln.pen 55 Unit SQ QHS Clonazepam 1 Mg Tablet 1 Mg PO TID Furosemide 40 Mg Tablet 80 Mg PO [id number] Hold for SBP less than 100. After held dose, reassess in 2 hours. If SBP is above threshold, administer dose as ordered. If SBP is below threshold, contact provider for additional instructions. I have reviewed the current psychotropics carefully including drug interactions. Risk benefit ratio favors no change other than as noted in my dictated progress note. Diagnosis: Problems: (1) Depression (2) Schizoaffective disorder (3) Anxiety disorder (4) Impulse control disorder (5) Schizoaffective disorder, chronic condition with acute exacerbation (6) Mental status change KALIN STARKS MD October 23, 2017 21:09
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
[2017-10-24 06:26] VITALS: BP 113/65
[2017-10-24 06:33] LABS: CALCIUM 9.6 mg/dL (8.5-10.1); CREATININE 1.2 mg/dL (0.6-1.0); GFR 45.4; POTASSIUM 3.6 mmol/L (3.5-5.1)
[2017-10-24] MEDS: INSULIN LISPRO 300 UNITS/3 ML INSULN.PEN. SQ SCH ×3 (08:09→18:42)
[2017-10-24] MEDS: MAGNESIUM OXIDE 400 MG TABLET PO SCH ×2 (08:31→20:45)
[2017-10-24] MEDS: busPIRone 10 MG TABLET. PO SCH ×3 (08:32→18:40)
[2017-10-24] MEDS: PIOGLITAZONE 15 MG TABLET. PO SCH (08:32)
[2017-10-24] MEDS: AMANTADINE HCL 100 MG CAPSULE PO SCH ×2 (08:33→20:52)
[2017-10-24] MEDS: FUROSEMIDE 40 MG TABLET PO SCH ×2 (08:33→12:36)
[2017-10-24] MEDS: THEOPHYLLINE ANHYDROUS 400 MG TABLET.ER. PO SCH ×2 (08:33→20:51)
[2017-10-24] MEDS: metOLazone 5 MG TABLET PO SCH (08:33)
[2017-10-24] MEDS: CHOLECALCIFEROL (VITAMIN D3) 50,000 UNIT CAPSULE PO SCH (08:33)
[2017-10-24] MEDS: LACTOBACILLUS RHAMNOSUS GG 1 CAPSULE. PO SCH ×2 (08:33→20:45)
[2017-10-24] MEDS: metFORMIN 500 MG TABLET PO SCH ×2 (08:33→18:40)
[2017-10-24] MEDS: clonazePAM 1 MG TABLET PO SCH ×3 (08:33→20:55)
[2017-10-24] MEDS: POTASSIUM CHLORIDE 20 MEQ TABLET.ER. PO SCH ×3 (08:34→20:47)
[2017-10-24] MEDS: traZODone 50 MG TABLET. PO SCH ×3 (08:34→18:40)
[2017-10-24] MEDS: VALPROATE ACID 250 MG/5 ML ORAL SOLUTION PO SCH ×2 (08:34→20:45)
[2017-10-24] MEDS: HALOPERIDOL 10 MG/5 ML ORAL.CONC. PO SCH (08:35)
[2017-10-24 16:17] VITALS: BP 105/62
[2017-10-24 20:38] VITALS: BP 128/76
[2017-10-24] MEDS: MIRTAZAPINE 15 MG TABLET PO SCH (20:45)
--- NOTE | 2017-10-24 20:45 | PDOC ---
Exam Note: Napoleon Note: Please also refer to the separate dictated note~for this date of service dictated separately.~Patient seen individually. Discussed the patient with Nursing staff reviewed the chart.~Reviewed interim history and current functioning. Reviewed vital signs,~Labs/ Radiology~and current medications noted below. Continue current treatment with the changes noted in the dictated addendum note Assessment: Vital Signs: Vital Signs Date Time Temp Pulse Resp B/P (MAP) Pulse Ox O2 Delivery O2 Flow Rate FiO2 10/24/17 20:38 85 128/76 (93) 10/24/17 16:17 96.9 16 98 Room Air 10/21/17 00:23 2.0 I&O Intake and Output 10/24/17 07:00 Intake Total 1440 ml Balance 1440 ml Intake Oral 1440 ml Labs: Laboratory Tests Test 10/24/17 06:10 10/24/17 07:13 10/24/17 11:35 10/24/17 16:36 Sodium Level 138 mmol/L (136-145) Potassium Level 3.6 mmol/L (3.5-5.1) Chloride Level 92 mmol/L (98-107) L Carbon Dioxide Level 44 mmol/L (21-32) H Anion Gap 2 (6-14) L Blood Urea Nitrogen 39 mg/dL (7-20) H Creatinine 1.2 mg/dL (0.6-1.0) H Estimated GFR (Cockcroft-Gault) 45.4 Glucose Level 165 mg/dL (70-99) H Calcium Level 9.6 mg/dL (8.5-10.1) Glucose (Fingerstick) 149 mg/dL (70-99) H 281 mg/dL (70-99) H 220 mg/dL (70-99) H Test 10/24/17 18:59 Glucose (Fingerstick) 168 mg/dL (70-99) H Current Medications: Meds: Current Medications Sodium Chloride 1,000 ml @ 1,000 mls/hr 1X ONCE IV Last administered on at 00:40; Start 10/06/17 at 22:30; Stop 10/06/17 at 23:29; Status DC Ziprasidone (Geodon Im) 20 mg 1X ONCE IM Last administered on 10/07/17at 00:06 ; Start 10/06/17 at 22:30; Stop 10/06/17 at 22:31; Status DC Diphenhydramine HCl (Benadryl) 50 mg 1X ONCE IV ; Start 10/06/17 at 22:30; Stop 10/06/17 at 23:08; Status DC Lorazepam (Ativan) 2 mg 1X ONCE IV ; Start 10/06/17 at 22:30; Stop 10/06/17 at 23:08; Status DC Diphenhydramine HCl (Benadryl) 50 mg 1X ONCE IM Last administered on at 23:09; Start 10/06/17 at 23:15; Stop 10/06/17 at 23:16; Status DC Lorazepam (Ativan) 2 mg 1X ONCE IM Last administered on 10/06/17at 23:09; Start 10/06/17 at 23:15; Stop 10/06/17 at 23:16; Status DC Ziprasidone (Geodon Im) 20 mg 1X ONCE IM ; Start 10/07/17 at 00:00; Stop at 00:01; Status DC Lorazepam (Ativan) 2 mg 1X ONCE IM Last administered on 10/07/17at 00:06; Start 10/07/17 at 00:00; Stop 10/07/17 at 00:01; Status DC Ceftriaxone Sodium (Rocephin Im) 1 gm 1X ONCE IM Last administered on at 00:40; Start 10/07/17 at 00:30; Stop 10/07/17 at 00:31; Status DC Magnesium Hydroxide (Milk Of Magnesia) 2,400 mg 1X ONCE PO Last administered on 10/07/17at 02:27; Start 10/07/17 at 02:15; Stop 10/07/17 at 02:16; Status DC Potassium Chloride (Klor-Con) 40 meq 1X ONCE PO Last administered on at 02:06; Start 10/07/17 at 02:15; Stop 10/07/17 at 02:16; Status DC Cephalexin HCl (Keflex) 500 mg TID PO Last administered on 10/10/17at 14:18; Start 10/07/17 at 09:00; Stop 10/11/17 at 19:05; Status DC Acetaminophen (Tylenol) 650 mg PRN Q6HRS PRN PO PAIN / TEMP Last administered on 10/13/17at 19:43; Start 10/07/17 at 03:45 Multi-Ingredient Ointment (Analgesic Mart) 1 guanaco PRN QID PRN TP MUSCLE PAIN; Start 10/07/17 at 03:45 Al Hydroxide/Mg Hydroxide (Mylanta Plus Xs) 15 ml PRN AFTMEALHC PRN PO DYSPEPSIA; Start 10/07/17 at 03:45 Magnesium Hydroxide (Milk Of Magnesia) 2,400 mg PRN QHS PRN PO CONSTIPATION; Start 10/07/17 at 03:45 Vitamin D (Vitamin D3) 50,000 unit QTH@0900 PO Last administered on 10/24/17at 08:33; Start 10/10/17 at 09:00 Multi-Ingredient Ointment (Analgesic Mart) 1 guanaco PRN QID PRN TP MUSCLE PAIN; Start 10/07/17 at 08:00; Status UNV Potassium Chloride (Klor-Con) 40 meq BIDWMEALS PO Last administered on at 07:40; Start 10/07/17 at 08:00; Stop 10/21/17 at 15:48; Status DC Theophylline (Theodur) 200 mg BID PO ; Start 10/07/17 at 09:00; Stop 10/07/17 at 09:00; Status DC Amantadine HCl (Symmetrel) 100 mg BID PO Last administered on 10/24/17at 08:33; Start 10/07/17 at 09:00 Buspirone HCl (Buspar) 5 mg QID PO Last administered on 10/12/17at 19:26; Start 10/07/17 at 09:00; Stop 10/12/17 at 19:48; Status DC Clonazepam (KlonoPIN) 1 mg TID PO Last administered on 10/24/17at 12:35; Start 10/07/17 at 09:00 Diltiazem HCl (Cardizem 24hr Cd) 120 mg DAILY PO Last administered on at 08:33; Start 10/07/17 at 09:00 Divalproex Sodium (Depakote Sprinkles) 750 mg BID PO Last administered on at 10:18; Start 10/07/17 at 09:00; Stop 10/08/17 at 18:28; Status DC Furosemide (Lasix) 80 mg [id number] PO Last administered on 10/11/17at 13:49; Start 10/07/17 at 09:00; Stop 10/13/17 at 17:39; Status DC Non-Formulary Medication (Haloperidol Decanoate (Haldol Decanoate 100)) 450 mg [id number] IM ; Start 10/07/17 at 08:00; Status Cancel Non-Formulary Medication (Mag Hydrox/ Aluminum Hyd/ Simeth (Maalox Advanced Suspension)) 15 ml PRN AFTMEALHC PRN PO DYSPEPSIA; Start 10/07/17 at 08:00; Status UNV Non-Formulary Medication (Magnesium Hydroxide (Milk Of Magnesia)) 2,400 mg PRN QHS PRN PO CONSTIPATION; Start 10/07/17 at 08:00; Status UNV Magnesium Oxide (Magnesium Oxide) 400 mg BID PO Last administered on 10/24/17at 08:31; Start 10/07/17 at 09:00 Metformin HCl (Glucophage) 500 mg [id number] PO Last administered on 10/08/17at 10:19; Start 10/07/17 at 08:00; Stop 10/08/17 at 19:23; Status DC Metolazone (Zaroxolyn) 5 mg DAILY PO Last administered on 10/24/17at 08:33; Start 10/07/17 at 09:00 Mirtazapine (Remeron) 15 mg QHS PO Last administered on 10/23/17at 19:46; Start 10/07/17 at 21:00 Pioglitazone HCl (Actos) 15 mg DAILY PO Last administered on 10/24/17at 08:32; Start 10/07/17 at 09:00 Haloperidol Decanoate (Haldol Decanoate Im Extended Release) 450 mg Q24D IM ; Start 10/18/17 at 08:00; Stop 10/18/17 at 18:43; Status DC Theophylline (Theophylline Extended Release) 200 mg BID PO Last administered on 10/24/17at 08:33; Start 10/07/17 at 09:00 Lactobacillus Rhamnosus (Culturelle) 1 cap BID PO Last administered on at 08:33; Start 10/07/17 at 21:00 Clonazepam (KlonoPIN) 1 mg STK-MED ONCE .ROUTE ; Start 10/07/17 at 09:00; Stop 10/08/17 at 11:51; Status DC Clonazepam (KlonoPIN) 1 mg STK-MED ONCE .ROUTE ; Start 10/07/17 at 09:00; Stop 10/08/17 at 11:51; Status DC Clonazepam (KlonoPIN) 1 mg STK-MED ONCE .ROUTE ; Start 10/07/17 at 09:00; Stop 10/08/17 at 11:51; Status DC Diltiazem HCl (Cardizem 24hr Cd) 120 mg STK-MED ONCE PO ; Start 10/07/17 at 09: 00; Stop 10/08/17 at 11:51; Status DC Divalproex Sodium (Depakote Sprinkles) 750 mg STK-MED ONCE PO ; Start 10/07/17 at 09:00; Stop 10/08/17 at 11:51; Status DC Divalproex Sodium (Depakote Sprinkles) 750 mg STK-MED ONCE PO ; Start 10/07/17 at 09:00; Stop 10/08/17 at 11:51; Status DC Furosemide (Lasix) 80 mg STK-MED ONCE .ROUTE ; Start 10/07/17 at 09:00; Stop at 11:51; Status DC Furosemide (Lasix) 80 mg STK-MED ONCE .ROUTE ; Start 10/07/17 at 09:00; Stop at 11:51; Status DC Magnesium Oxide (Magnesium Oxide) 400 mg STK-MED ONCE .ROUTE ; Start 10/07/17 at 09:00; Stop 10/08/17 at 11:51; Status DC Metolazone (Zaroxolyn) 5 mg STK-MED ONCE .ROUTE ; Start 10/07/17 at 09:00; Stop 10/08/17 at 11:51; Status DC Mirtazapine (Remeron) 15 mg STK-MED ONCE .ROUTE ; Start 10/07/17 at 09:00; Stop 10/08/17 at 11:51; Status DC Clonazepam (KlonoPIN) 1 mg STK-MED ONCE .ROUTE ; Start 10/08/17 at 09:00; Stop 10/08/17 at 11:52; Status DC Diltiazem HCl (Cardizem 24hr Cd) 120 mg STK-MED ONCE PO ; Start 10/08/17 at 09: 00; Stop 10/08/17 at 11:52; Status DC Divalproex Sodium (Depakote Sprinkles) 750 mg STK-MED ONCE PO ; Start 10/08/17 at 09:00; Stop 10/08/17 at 11:52; Status DC Furosemide (Lasix) 80 mg STK-MED ONCE .ROUTE ; Start 10/08/17 at 09:00; Stop at 11:52; Status DC Magnesium Oxide (Magnesium Oxide) 400 mg STK-MED ONCE .ROUTE ; Start 10/08/17 at 09:00; Stop 10/08/17 at 11:52; Status DC Metolazone (Zaroxolyn) 5 mg STK-MED ONCE .ROUTE ; Start 10/08/17 at 09:00; Stop 10/08/17 at 11:52; Status DC Divalproex Sodium (Depakote Sprinkles) 1,000 mg BID PO Last administered on at 07:51; Start 10/08/17 at 21:00; Stop 10/11/17 at 09:40; Status DC Metformin HCl (Glucophage) 500 mg BIDWMEALS PO Last administered on 10/24/17at 18:40; Start 10/09/17 at 08:00 Insulin Human Lispro (HumaLOG) 0-9 UNITS TIDWMEALS SQ Last administered on 10/24at 18:42; Start 10/09/17 at 08:00 Dextrose 12.5 gm PRN Q15MIN PRN IV SEE COMMENTS; Start 10/08/17 at 19:30 Insulin Glargine (Lantus) 8 units 1X ONCE SQ Last administered on 10/08/17at 22 :10; Start 10/08/17 at 22:00; Stop 10/08/17 at 22:01; Status DC Olanzapine (ZyPREXA ZYDIS) 2.5 mg PRN Q2HR PRN PO PSYCHOSIS Last administered on 10/23/17at 07:48; Start 10/09/17 at 18:45 Valproic Acid (Depakene) 1,000 mg BID PO Last administered on 10/24/17at 08:34; Start 10/11/17 at 09:30 Haloperidol Lactate (Haldol Oral) 5 mg DAILY PO Last administered on 10/15/17at 07:45; Start 10/12/17 at 09:00; Stop 10/15/17 at 18:51; Status DC Potassium Chloride (Klor-Con) 40 meq Q1HR PO Last administered on 10/12/17at 09: 19; Start 10/12/17 at 10:00; Stop 10/12/17 at 10:15; Status DC Potassium Chloride (KCl Oral Soln) 40 meq Q1HR PEG Last administered on at 12:29; Start 10/12/17 at 11:00; Stop 10/12/17 at 13:01; Status DC Divalproex Sodium (Depakote Sprinkles) 250 mg 1X ONCE PO Last administered on 10/12/17at 10:45; Start 10/12/17 at 10:45; Stop 10/12/17 at 10:46; Status DC Buspirone HCl (Buspar) 10 mg QID PO ; Start 10/12/17 at 21:00; Stop 10/12/17 at 21:00; Status DC Buspirone HCl (Buspar) 10 mg TID@0900,1300,1700 PO Last administered on at 17:15; Start 10/13/17 at 09:00; Stop 10/16/17 at 18:36; Status DC Haloperidol Lactate (Haldol Oral) 7.5 mg DAILY PO Last administered on at 08:35; Start 10/16/17 at 09:00 Trazodone HCl (Desyrel) 50 mg PRN QHS PRN PO insomnia Last administered on at 19:19; Start 10/16/17 at 21:00; Stop 10/23/17 at 18:29; Status DC Buspirone HCl (Buspar) 10 mg BID@1300,1700 PO Last administered on 10/24/17at 18 :40; Start 10/17/17 at 13:00 Buspirone HCl (Buspar) 20 mg DAILY PO Last administered on 10/24/17at 08:32; Start 10/17/17 at 09:00 Haloperidol Decanoate (Haldol Decanoate Im Extended Release) 450 mg Q24D IM ; Start 10/22/17 at 09:00; Stop 10/22/17 at 16:52; Status DC Potassium Chloride (Klor-Con) 40 meq TID PO Last administered on 10/24/17at 12: 35; Start 10/21/17 at 21:00 Furosemide (Lasix) 80 mg BID94 PO ; Start 10/21/17 at 16:00; Stop 10/21/17 at 16 :00; Status DC Furosemide (Lasix) 80 mg BID92 PO Last administered on 10/24/17at 12:36; Start 10/21/17 at 16:00 Haloperidol Decanoate (Haldol Decanoate Im Extended Release) 450 mg Q24D IM ; Start 10/23/17 at 09:00; Stop 10/23/17 at 09:00; Status DC Haloperidol Decanoate (Haldol Decanoate Im Extended Release) 450 mg Q24D IM ; Start 10/22/18 at 21:00; Status Cancel Trazodone HCl (Desyrel) 25 mg TID@0900,1300,1700 PO Last administered on at 12:35; Start 10/23/17 at 09:00; Stop 10/24/17 at 15:32; Status DC Haloperidol Decanoate (Haldol Decanoate Im Extended Release) 450 mg Q24D ONCE IM Last administered on 10/22/17at 21:58; Start 10/22/17 at 22:00; Stop at 22:01; Status DC Trazodone HCl (Desyrel) 100 mg PRN QHS PRN PO insomnia Last administered on at 19:55; Start 10/23/17 at 18:30 Trazodone HCl (Desyrel) 37.5 mg TID@0900,1300,1700 PO Last administered on 10/24at 18:40; Start 10/24/17 at 17:00 Active Scripts Active Reported Novolog Flexpen (Insulin Aspart) 100 Unit/1 Ml Insuln.pen 8 Unit SQ TIDBFRMEAL Theophylline Anhydrous 200 Mg Tab.er.12h 200 Mg PO BID Metolazone 5 Mg Tablet 5 Mg PO DAILY Metformin Hcl 500 Mg Tablet 500 Mg PO BIDWMEALS Metformin Hcl 500 Mg Tablet 500 Mg PO DAILY Geodon (Ziprasidone Mesylate) 20 Mg Vial 20 Mg IM DAILY Cardizem Tablet (Diltiazem Hcl) 120 Mg Tablet 120 Mg PO DAILY Amantadine (Amantadine Hcl) 100 Mg Tablet 100 Mg PO BID Actos (Pioglitazone Hcl) 15 Mg Tablet 15 Mg PO DAILY Buspirone Hcl 5 Mg Tablet 5 Mg PO QID Mirtazapine 15 Mg Tablet 15 Mg PO QHS Haldol Decanoate 100 (Haloperidol Decanoate) 100 Mg/1 Ml Ampul 450 Mg IM [id number] Depakote Sprinkle (Divalproex Sodium) 125 Mg Cap.sprink 750 Mg PO BID Klor-Con M20 (Potassium Chloride) 20 Meq Tab.er.prt 40 Meq PO BIDWMEALS Analgesic Mart (Methyl Salicylate/Menthol) 28 Gm Oint...g. 1 Guanaco TP PRN QID PRN Magnesium Oxide 400 Mg Tablet 400 Mg PO BID Milk Of Magnesia (Magnesium Hydroxide) 2,400 Mg/10 Ml Oral.susp 2,400 Mg PO PRN QHS PRN Maalox Advanced Suspension (Mag Hydrox/Aluminum Hyd/Simeth) 355 Ml Oral.susp 15 Ml PO PRN AFTMEALHC PRN D3-50 (Cholecalciferol (Vitamin D3)) 50,000 Unit Capsule 50,000 Unit PO QTH Levemir Flextouch (Insulin Detemir) 100 Unit/1 Ml Insuln.pen 55 Unit SQ QHS Clonazepam 1 Mg Tablet 1 Mg PO TID Furosemide 40 Mg Tablet 80 Mg PO [id number] Hold for SBP less than 100. After held dose, reassess in 2 hours. If SBP is above threshold, administer dose as ordered. If SBP is below threshold, contact provider for additional instructions. I have reviewed the current psychotropics carefully including drug interactions. Risk benefit ratio favors no change other than as noted in my dictated progress note. Diagnosis: Problems: (1) Depression (2) Schizoaffective disorder (3) Anxiety disorder (4) Impulse control disorder (5) Schizoaffective disorder, chronic condition with acute exacerbation (6) Mental status change KALIN STARKS MD October 24, 2017 20:45
[2017-10-25 06:15] VITALS: BP 128/66
[2017-10-25] MEDS: busPIRone 10 MG TABLET. PO SCH ×3 (07:56→16:54)
[2017-10-25] MEDS: LACTOBACILLUS RHAMNOSUS GG 1 CAPSULE. PO SCH ×2 (07:56→20:00)
[2017-10-25] MEDS: FUROSEMIDE 40 MG TABLET PO SCH ×2 (07:56→12:59)
[2017-10-25] MEDS: VALPROATE ACID 250 MG/5 ML ORAL SOLUTION PO SCH ×2 (07:56→20:00)
[2017-10-25] MEDS: metFORMIN 500 MG TABLET PO SCH ×2 (07:58→16:54)
[2017-10-25] MEDS: traZODone 50 MG TABLET. PO SCH ×3 (07:58→16:54)
[2017-10-25] MEDS: metOLazone 5 MG TABLET PO SCH (07:59)
[2017-10-25] MEDS: PIOGLITAZONE 15 MG TABLET. PO SCH (07:59)
[2017-10-25] MEDS: MAGNESIUM OXIDE 400 MG TABLET PO SCH ×2 (07:59→20:00)
[2017-10-25] MEDS: POTASSIUM CHLORIDE 20 MEQ TABLET.ER. PO SCH ×3 (07:59→20:00)
[2017-10-25] MEDS: THEOPHYLLINE ANHYDROUS 400 MG TABLET.ER. PO SCH ×2 (07:59→20:03)
[2017-10-25] MEDS: AMANTADINE HCL 100 MG CAPSULE PO SCH ×2 (08:00→20:02)
[2017-10-25] MEDS: HALOPERIDOL 10 MG/5 ML ORAL.CONC. PO SCH (08:01)
[2017-10-25] MEDS: clonazePAM 1 MG TABLET PO SCH ×3 (08:02→20:04)
[2017-10-25] MEDS: INSULIN LISPRO 300 UNITS/3 ML INSULN.PEN. SQ SCH ×3 (08:05→17:27)
[2017-10-25 16:13] VITALS: BP 118/67
[2017-10-25] MEDS: MIRTAZAPINE 15 MG TABLET PO SCH (20:00)
[2017-10-25] MEDS: traZODone 100 MG TABLET. PO PRN (20:02)
--- NOTE | 2017-10-25 20:47 | PDOC ---
Exam Note: Napoleon Note: Please also refer to the separate dictated note~for this date of service dictated separately.~Patient seen individually. Discussed the patient with Nursing staff reviewed the chart.~Reviewed interim history and current functioning. Reviewed vital signs,~Labs/ Radiology~and current medications noted below. Continue current treatment with the changes noted in the dictated addendum note Assessment: Vital Signs: Vital Signs Date Time Temp Pulse Resp B/P (MAP) Pulse Ox O2 Delivery O2 Flow Rate FiO2 10/25/17 16:13 97.3 84 16 118/67 (84) 96 10/25/17 06:15 Nasal Cannula 2.0 I&O Intake and Output 10/25/17 07:00 Intake Total 960 ml Balance 960 ml Intake Oral 960 ml Labs: Laboratory Tests Test 10/25/17 07:47 10/25/17 11:43 10/25/17 16:24 10/25/17 19:20 Glucose (Fingerstick) 208 mg/dL (70-99) H 227 mg/dL (70-99) H 208 mg/dL (70-99) H 277 mg/dL (70-99) H Current Medications: Meds: Current Medications Sodium Chloride 1,000 ml @ 1,000 mls/hr 1X ONCE IV Last administered on at 00:40; Start 10/06/17 at 22:30; Stop 10/06/17 at 23:29; Status DC Ziprasidone (Geodon Im) 20 mg 1X ONCE IM Last administered on 10/07/17at 00:06 ; Start 10/06/17 at 22:30; Stop 10/06/17 at 22:31; Status DC Diphenhydramine HCl (Benadryl) 50 mg 1X ONCE IV ; Start 10/06/17 at 22:30; Stop 10/06/17 at 23:08; Status DC Lorazepam (Ativan) 2 mg 1X ONCE IV ; Start 10/06/17 at 22:30; Stop 10/06/17 at 23:08; Status DC Diphenhydramine HCl (Benadryl) 50 mg 1X ONCE IM Last administered on at 23:09; Start 10/06/17 at 23:15; Stop 10/06/17 at 23:16; Status DC Lorazepam (Ativan) 2 mg 1X ONCE IM Last administered on 10/06/17at 23:09; Start 10/06/17 at 23:15; Stop 10/06/17 at 23:16; Status DC Ziprasidone (Geodon Im) 20 mg 1X ONCE IM ; Start 10/07/17 at 00:00; Stop at 00:01; Status DC Lorazepam (Ativan) 2 mg 1X ONCE IM Last administered on 10/07/17at 00:06; Start 10/07/17 at 00:00; Stop 10/07/17 at 00:01; Status DC Ceftriaxone Sodium (Rocephin Im) 1 gm 1X ONCE IM Last administered on at 00:40; Start 10/07/17 at 00:30; Stop 10/07/17 at 00:31; Status DC Magnesium Hydroxide (Milk Of Magnesia) 2,400 mg 1X ONCE PO Last administered on 10/07/17at 02:27; Start 10/07/17 at 02:15; Stop 10/07/17 at 02:16; Status DC Potassium Chloride (Klor-Con) 40 meq 1X ONCE PO Last administered on at 02:06; Start 10/07/17 at 02:15; Stop 10/07/17 at 02:16; Status DC Cephalexin HCl (Keflex) 500 mg TID PO Last administered on 10/10/17at 14:18; Start 10/07/17 at 09:00; Stop 10/11/17 at 19:05; Status DC Acetaminophen (Tylenol) 650 mg PRN Q6HRS PRN PO PAIN / TEMP Last administered on 10/13/17at 19:43; Start 10/07/17 at 03:45 Multi-Ingredient Ointment (Analgesic Hamilton) 1 guanaco PRN QID PRN TP MUSCLE PAIN; Start 10/07/17 at 03:45 Al Hydroxide/Mg Hydroxide (Mylanta Plus Xs) 15 ml PRN AFTMEALHC PRN PO DYSPEPSIA; Start 10/07/17 at 03:45 Magnesium Hydroxide (Milk Of Magnesia) 2,400 mg PRN QHS PRN PO CONSTIPATION; Start 10/07/17 at 03:45 Vitamin D (Vitamin D3) 50,000 unit QTH@0900 PO Last administered on 10/24/17at 08:33; Start 10/10/17 at 09:00 Multi-Ingredient Ointment (Analgesic Hamilton) 1 guanaco PRN QID PRN TP MUSCLE PAIN; Start 10/07/17 at 08:00; Status UNV Potassium Chloride (Klor-Con) 40 meq BIDWMEALS PO Last administered on at 07:40; Start 10/07/17 at 08:00; Stop 10/21/17 at 15:48; Status DC Theophylline (Theodur) 200 mg BID PO ; Start 10/07/17 at 09:00; Stop 10/07/17 at 09:00; Status DC Amantadine HCl (Symmetrel) 100 mg BID PO Last administered on 10/25/17at 20:02; Start 10/07/17 at 09:00 Buspirone HCl (Buspar) 5 mg QID PO Last administered on 10/12/17at 19:26; Start 10/07/17 at 09:00; Stop 10/12/17 at 19:48; Status DC Clonazepam (KlonoPIN) 1 mg TID PO Last administered on 10/25/17at 20:04; Start at 09:00 Diltiazem HCl (Cardizem 24hr Cd) 120 mg DAILY PO Last administered on 10/25/17at 07:56; Start 10/07/17 at 09:00 Divalproex Sodium (Depakote Sprinkles) 750 mg BID PO Last administered on at 10:18; Start 10/07/17 at 09:00; Stop 10/08/17 at 18:28; Status DC Furosemide (Lasix) 80 mg [id number] PO Last administered on 10/11/17at 13:49; Start 10/07/17 at 09:00; Stop 10/13/17 at 17:39; Status DC Non-Formulary Medication (Haloperidol Decanoate (Haldol Decanoate 100)) 450 mg [id number] IM ; Start 10/07/17 at 08:00; Status Cancel Non-Formulary Medication (Mag Hydrox/ Aluminum Hyd/ Simeth (Maalox Advanced Suspension)) 15 ml PRN AFTMEALHC PRN PO DYSPEPSIA; Start 10/07/17 at 08:00; Status UNV Non-Formulary Medication (Magnesium Hydroxide (Milk Of Magnesia)) 2,400 mg PRN QHS PRN PO CONSTIPATION; Start 10/07/17 at 08:00; Status UNV Magnesium Oxide (Magnesium Oxide) 400 mg BID PO Last administered on 10/25/17at 20:00; Start 10/07/17 at 09:00 Metformin HCl (Glucophage) 500 mg [id number] PO Last administered on 10/08/17at 10:19; Start 10/07/17 at 08:00; Stop 10/08/17 at 19:23; Status DC Metolazone (Zaroxolyn) 5 mg DAILY PO Last administered on 10/25/17at 07:59; Start 10/07/17 at 09:00 Mirtazapine (Remeron) 15 mg QHS PO Last administered on 10/25/17at 20:00; Start 10/07/17 at 21:00 Pioglitazone HCl (Actos) 15 mg DAILY PO Last administered on 10/25/17at 07:59; Start 10/07/17 at 09:00 Haloperidol Decanoate (Haldol Decanoate Im Extended Release) 450 mg Q24D IM ; Start 10/18/17 at 08:00; Stop 10/18/17 at 18:43; Status DC Theophylline (Theophylline Extended Release) 200 mg BID PO Last administered on 10/25/17at 20:03; Start 10/07/17 at 09:00 Lactobacillus Rhamnosus (Culturelle) 1 cap BID PO Last administered on at 20:00; Start 10/07/17 at 21:00 Clonazepam (KlonoPIN) 1 mg STK-MED ONCE .ROUTE ; Start 10/07/17 at 09:00; Stop 10/08/17 at 11:51; Status DC Clonazepam (KlonoPIN) 1 mg STK-MED ONCE .ROUTE ; Start 10/07/17 at 09:00; Stop 10/08/17 at 11:51; Status DC Clonazepam (KlonoPIN) 1 mg STK-MED ONCE .ROUTE ; Start 10/07/17 at 09:00; Stop 10/08/17 at 11:51; Status DC Diltiazem HCl (Cardizem 24hr Cd) 120 mg STK-MED ONCE PO ; Start 10/07/17 at 09: 00; Stop 10/08/17 at 11:51; Status DC Divalproex Sodium (Depakote Sprinkles) 750 mg STK-MED ONCE PO ; Start 10/07/17 at 09:00; Stop 10/08/17 at 11:51; Status DC Divalproex Sodium (Depakote Sprinkles) 750 mg STK-MED ONCE PO ; Start 10/07/17 at 09:00; Stop 10/08/17 at 11:51; Status DC Furosemide (Lasix) 80 mg STK-MED ONCE .ROUTE ; Start 10/07/17 at 09:00; Stop at 11:51; Status DC Furosemide (Lasix) 80 mg STK-MED ONCE .ROUTE ; Start 10/07/17 at 09:00; Stop at 11:51; Status DC Magnesium Oxide (Magnesium Oxide) 400 mg STK-MED ONCE .ROUTE ; Start 10/07/17 at 09:00; Stop 10/08/17 at 11:51; Status DC Metolazone (Zaroxolyn) 5 mg STK-MED ONCE .ROUTE ; Start 10/07/17 at 09:00; Stop 10/08/17 at 11:51; Status DC Mirtazapine (Remeron) 15 mg STK-MED ONCE .ROUTE ; Start 10/07/17 at 09:00; Stop 10/08/17 at 11:51; Status DC Clonazepam (KlonoPIN) 1 mg STK-MED ONCE .ROUTE ; Start 10/08/17 at 09:00; Stop 10/08/17 at 11:52; Status DC Diltiazem HCl (Cardizem 24hr Cd) 120 mg STK-MED ONCE PO ; Start 10/08/17 at 09: 00; Stop 10/08/17 at 11:52; Status DC Divalproex Sodium (Depakote Sprinkles) 750 mg STK-MED ONCE PO ; Start 10/08/17 at 09:00; Stop 10/08/17 at 11:52; Status DC Furosemide (Lasix) 80 mg STK-MED ONCE .ROUTE ; Start 10/08/17 at 09:00; Stop at 11:52; Status DC Magnesium Oxide (Magnesium Oxide) 400 mg STK-MED ONCE .ROUTE ; Start 10/08/17 at 09:00; Stop 10/08/17 at 11:52; Status DC Metolazone (Zaroxolyn) 5 mg STK-MED ONCE .ROUTE ; Start 10/08/17 at 09:00; Stop 10/08/17 at 11:52; Status DC Divalproex Sodium (Depakote Sprinkles) 1,000 mg BID PO Last administered on at 07:51; Start 10/08/17 at 21:00; Stop 10/11/17 at 09:40; Status DC Metformin HCl (Glucophage) 500 mg BIDWMEALS PO Last administered on 10/25/17 16 :54; Start 10/09/17 at 08:00 Insulin Human Lispro (HumaLOG) 0-9 UNITS TIDWMEALS SQ Last administered on 17:27; Start 10/09/17 at 08:00 Dextrose 12.5 gm PRN Q15MIN PRN IV SEE COMMENTS; Start 10/08/17 at 19:30 Insulin Glargine (Lantus) 8 units 1X ONCE SQ Last administered on 10/08/17at 22 :10; Start 10/08/17 at 22:00; Stop 10/08/17 at 22:01; Status DC Olanzapine (ZyPREXA ZYDIS) 2.5 mg PRN Q2HR PRN PO PSYCHOSIS Last administered on 10/23/17 07:48; Start 10/09/17 at 18:45 Valproic Acid (Depakene) 1,000 mg BID PO Last administered on 10/25/17at 20:00; Start 10/11/17 at 09:30 Haloperidol Lactate (Haldol Oral) 5 mg DAILY PO Last administered on 10/15/17at 07:45; Start 10/12/17 at 09:00; Stop 10/15/17 at 18:51; Status DC Potassium Chloride (Klor-Con) 40 meq Q1HR PO Last administered on 10/12/17at 09: 19; Start 10/12/17 at 10:00; Stop 10/12/17 at 10:15; Status DC Potassium Chloride (KCl Oral Soln) 40 meq Q1HR PEG Last administered on at 12:29; Start 10/12/17 at 11:00; Stop 10/12/17 at 13:01; Status DC Divalproex Sodium (Depakote Sprinkles) 250 mg 1X ONCE PO Last administered on 10/12/17at 10:45; Start 10/12/17 at 10:45; Stop 10/12/17 at 10:46; Status DC Buspirone HCl (Buspar) 10 mg QID PO ; Start 10/12/17 at 21:00; Stop 10/12/17 at 21:00; Status DC Buspirone HCl (Buspar) 10 mg TID@0900,1300,1700 PO Last administered on at 17:15; Start 10/13/17 at 09:00; Stop 10/16/17 at 18:36; Status DC Haloperidol Lactate (Haldol Oral) 7.5 mg DAILY PO Last administered on at 08:01; Start 10/16/17 at 09:00 Trazodone HCl (Desyrel) 50 mg PRN QHS PRN PO insomnia Last administered on at 19:19; Start 10/16/17 at 21:00; Stop 10/23/17 at 18:29; Status DC Buspirone HCl (Buspar) 10 mg BID@1300,1700 PO Last administered on 10/25/17at 16: 54; Start 10/17/17 at 13:00 Buspirone HCl (Buspar) 20 mg DAILY PO Last administered on 10/25/17at 07:56; Start 10/17/17 at 09:00 Haloperidol Decanoate (Haldol Decanoate Im Extended Release) 450 mg Q24D IM ; Start 10/22/17 at 09:00; Stop 10/22/17 at 16:52; Status DC Potassium Chloride (Klor-Con) 40 meq TID PO Last administered on 10/25/17at 20:00 ; Start 10/21/17 at 21:00 Furosemide (Lasix) 80 mg BID94 PO ; Start 10/21/17 at 16:00; Stop 10/21/17 at 16 :00; Status DC Furosemide (Lasix) 80 mg BID92 PO Last administered on 10/25/17at 12:59; Start at 16:00 Haloperidol Decanoate (Haldol Decanoate Im Extended Release) 450 mg Q24D IM ; Start 10/23/17 at 09:00; Stop 10/23/17 at 09:00; Status DC Haloperidol Decanoate (Haldol Decanoate Im Extended Release) 450 mg Q24D IM ; Start 10/22/18 at 21:00; Status Cancel Trazodone HCl (Desyrel) 25 mg TID@0900,1300,1700 PO Last administered on at 12:35; Start 10/23/17 at 09:00; Stop 10/24/17 at 15:32; Status DC Haloperidol Decanoate (Haldol Decanoate Im Extended Release) 450 mg Q24D ONCE IM Last administered on 10/22/17at 21:58; Start 10/22/17 at 22:00; Stop at 22:01; Status DC Trazodone HCl (Desyrel) 100 mg PRN QHS PRN PO insomnia Last administered on 10/25/17at 20:02; Start 10/23/17 at 18:30 Trazodone HCl (Desyrel) 37.5 mg TID@0900,1300,1700 PO Last administered on at 16:54; Start 10/24/17 at 17:00 Active Scripts Active Reported Novolog Flexpen (Insulin Aspart) 100 Unit/1 Ml Insuln.pen 8 Unit SQ TIDBFRMEAL Theophylline Anhydrous 200 Mg Tab.er.12h 200 Mg PO BID Metolazone 5 Mg Tablet 5 Mg PO DAILY Metformin Hcl 500 Mg Tablet 500 Mg PO BIDWMEALS Metformin Hcl 500 Mg Tablet 500 Mg PO DAILY Geodon (Ziprasidone Mesylate) 20 Mg Vial 20 Mg IM DAILY Cardizem Tablet (Diltiazem Hcl) 120 Mg Tablet 120 Mg PO DAILY Amantadine (Amantadine Hcl) 100 Mg Tablet 100 Mg PO BID Actos (Pioglitazone Hcl) 15 Mg Tablet 15 Mg PO DAILY Buspirone Hcl 5 Mg Tablet 5 Mg PO QID Mirtazapine 15 Mg Tablet 15 Mg PO QHS Haldol Decanoate 100 (Haloperidol Decanoate) 100 Mg/1 Ml Ampul 450 Mg IM [id number] Depakote Sprinkle (Divalproex Sodium) 125 Mg Cap.sprink 750 Mg PO BID Klor-Con M20 (Potassium Chloride) 20 Meq Tab.er.prt 40 Meq PO BIDWMEALS Analgesic Hamilton (Methyl Salicylate/Menthol) 28 Gm Oint...g. 1 Guanaco TP PRN QID PRN Magnesium Oxide 400 Mg Tablet 400 Mg PO BID Milk Of Magnesia (Magnesium Hydroxide) 2,400 Mg/10 Ml Oral.susp 2,400 Mg PO PRN QHS PRN Maalox Advanced Suspension (Mag Hydrox/Aluminum Hyd/Simeth) 355 Ml Oral.susp 15 Ml PO PRN AFTMEALHC PRN D3-50 (Cholecalciferol (Vitamin D3)) 50,000 Unit Capsule 50,000 Unit PO QTH Levemir Flextouch (Insulin Detemir) 100 Unit/1 Ml Insuln.pen 55 Unit SQ QHS Clonazepam 1 Mg Tablet 1 Mg PO TID Furosemide 40 Mg Tablet 80 Mg PO [id number] Hold for SBP less than 100. After held dose, reassess in 2 hours. If SBP is above threshold, administer dose as ordered. If SBP is below threshold, contact provider for additional instructions. I have reviewed the current psychotropics carefully including drug interactions. Risk benefit ratio favors no change other than as noted in my dictated progress note. Diagnosis: Problems: (1) Depression (2) Schizoaffective disorder (3) Anxiety disorder (4) Impulse control disorder (5) Schizoaffective disorder, chronic condition with acute exacerbation (6) Mental status change KALIN STARKS MD Oct 25, 2017 20:47
--- NOTE | 2017-10-26 02:10 | PN ---
DATE: 10/23/2017 PSYCHIATRIC PROGRESS NOTE This is a late entry for 10/23/2017, covers elements not covered in my initial note of 10/23/2017. SUBJECTIVE: I met with the patient in the evening. The patient slept 1-3/4 hours previous evening even with the trazodone. She has been intermittently anxious, agitated. She did receive Haldol decanoate previous evening, takes her medications in [facility], yelling, kicking, hitting, biting staff at times, slept just half hour. REVIEW OF SYSTEMS: Ambulation impaired, in wheelchair. No CV, , pulmonary, eye, ENT system symptoms on review, quite paranoid, confused. MENTAL STATUS EXAM: Oriented to herself and situation. Speech coherent, rapid, loud at times. Abstraction fair, computation impaired, language function intact. Attention span short, quite paranoid. Mood and affect remain somewhat labile. LABORATORY DATA: Reviewed. IMPRESSION: Schizoaffective disorder, bipolar type, mixed with psychotic features; cognitive disorder, unspecified. Rest unchanged. PLAN: Increase trazodone from 50 mg at bedtime p.r.n. 100 mg p.o. at bedtime p.r.n., september repeat x 1. Rest unchanged. Valproic acid level therapeutic at 85. MAN Mary STARKS MD DR: TRACIE/karli JOB#: [id number] / [id number]
--- NOTE | 2017-10-26 02:12 | PN ---
DATE: 10/24/2017 PSYCHIATRIC PROGRESS NOTE This is a late entry for 10/24/2017, covers elements not covered in my initial note of 10/24/2017. SUBJECTIVE: I met with the patient in the evening and staffed at a treatment team meeting with the entire team in the morning. The patient slept 4-1/2 hours previous evening, frequently on the call light, somewhat better, less labile. REVIEW OF SYSTEMS: No CV, , pulmonary, eye system symptoms on review. Gait unsteady in wheelchair. MENTAL STATUS EXAM: Oriented to herself and situation. Speech is coherent, can be rapid, loud at times. Abstraction fair, computation impaired, language function intact, attention span short. Mood and affect somewhat labile, but less so than before. LABORATORY DATA: Reviewed. IMPRESSION: Unchanged from initial note. PLAN: Increase trazodone from 25 mg 3 times a day to 37.5 mg 3 times a day. Rest unchanged. KALIN STARKS MD DR: TRACIE/karli JOB#: [id number] / [id number]
[2017-10-26 06:21] VITALS: BP 112/66
[2017-10-26] MEDS: VALPROATE ACID 250 MG/5 ML ORAL SOLUTION PO SCH ×2 (07:45→20:50)
[2017-10-26] MEDS: LACTOBACILLUS RHAMNOSUS GG 1 CAPSULE. PO SCH ×2 (07:45→20:51)
[2017-10-26] MEDS: busPIRone 10 MG TABLET. PO SCH ×3 (07:45→18:18)
[2017-10-26] MEDS: HALOPERIDOL 10 MG/5 ML ORAL.CONC. PO SCH (07:45)
[2017-10-26] MEDS: FUROSEMIDE 40 MG TABLET PO SCH ×2 (07:46→11:51)
[2017-10-26] MEDS: POTASSIUM CHLORIDE 20 MEQ TABLET.ER. PO SCH ×3 (07:46→20:51)
[2017-10-26] MEDS: clonazePAM 1 MG TABLET PO SCH ×3 (07:46→20:50)
[2017-10-26] MEDS: traZODone 50 MG TABLET. PO SCH ×3 (07:46→18:18)
[2017-10-26] MEDS: metFORMIN 500 MG TABLET PO SCH ×2 (07:46→18:17)
[2017-10-26] MEDS: PIOGLITAZONE 15 MG TABLET. PO SCH (07:47)
[2017-10-26] MEDS: MAGNESIUM OXIDE 400 MG TABLET PO SCH ×2 (07:47→20:50)
[2017-10-26] MEDS: THEOPHYLLINE ANHYDROUS 400 MG TABLET.ER. PO SCH ×2 (07:52→20:53)
[2017-10-26] MEDS: AMANTADINE HCL 100 MG CAPSULE PO SCH ×2 (07:52→20:52)
[2017-10-26] MEDS: metOLazone 5 MG TABLET PO SCH (07:53)
[2017-10-26] MEDS: INSULIN LISPRO 300 UNITS/3 ML INSULN.PEN. SQ SCH ×3 (07:56→18:18)
[2017-10-26 16:43] VITALS: BP 137/61
[2017-10-26] MEDS: MIRTAZAPINE 15 MG TABLET PO SCH (20:50)
--- NOTE | 2017-10-26 22:11 | PDOC ---
Exam Note: Napoleon Note: Please also refer to the separate dictated note~for this date of service dictated separately.~Patient seen individually. Discussed the patient with Nursing staff reviewed the chart.~Reviewed interim history and current functioning. Reviewed vital signs,~Labs/ Radiology~and current medications noted below. Continue current treatment with the changes noted in the dictated addendum note Assessment: Vital Signs: Vital Signs Date Time Temp Pulse Resp B/P (MAP) Pulse Ox O2 Delivery O2 Flow Rate FiO2 10/26/17 16:43 97.3 87 18 137/61 (86) 91 10/25/17 06:15 Nasal Cannula 2.0 I&O Intake and Output 10/26/17 07:00 Intake Total 1325 ml Balance 1325 ml Intake Oral 1325 ml Labs: Laboratory Tests Test 10/26/17 07:53 10/26/17 11:44 10/26/17 16:53 Glucose (Fingerstick) 159 mg/dL (70-99) H 325 mg/dL (70-99) H 255 mg/dL (70-99) H Current Medications: Meds: Current Medications Sodium Chloride 1,000 ml @ 1,000 mls/hr 1X ONCE IV Last administered on at 00:40; Start 10/06/17 at 22:30; Stop 10/06/17 at 23:29; Status DC Ziprasidone (Geodon Im) 20 mg 1X ONCE IM Last administered on 10/07/17at 00:06 ; Start 10/06/17 at 22:30; Stop 10/06/17 at 22:31; Status DC Diphenhydramine HCl (Benadryl) 50 mg 1X ONCE IV ; Start 10/06/17 at 22:30; Stop 10/06/17 at 23:08; Status DC Lorazepam (Ativan) 2 mg 1X ONCE IV ; Start 10/06/17 at 22:30; Stop 10/06/17 at 23:08; Status DC Diphenhydramine HCl (Benadryl) 50 mg 1X ONCE IM Last administered on at 23:09; Start 10/06/17 at 23:15; Stop 10/06/17 at 23:16; Status DC Lorazepam (Ativan) 2 mg 1X ONCE IM Last administered on 10/06/17at 23:09; Start 10/06/17 at 23:15; Stop 10/06/17 at 23:16; Status DC Ziprasidone (Geodon Im) 20 mg 1X ONCE IM ; Start 10/07/17 at 00:00; Stop at 00:01; Status DC Lorazepam (Ativan) 2 mg 1X ONCE IM Last administered on 10/07/17at 00:06; Start 10/07/17 at 00:00; Stop 10/07/17 at 00:01; Status DC Ceftriaxone Sodium (Rocephin Im) 1 gm 1X ONCE IM Last administered on at 00:40; Start 10/07/17 at 00:30; Stop 10/07/17 at 00:31; Status DC Magnesium Hydroxide (Milk Of Magnesia) 2,400 mg 1X ONCE PO Last administered on 10/07/17at 02:27; Start 10/07/17 at 02:15; Stop 10/07/17 at 02:16; Status DC Potassium Chloride (Klor-Con) 40 meq 1X ONCE PO Last administered on at 02:06; Start 10/07/17 at 02:15; Stop 10/07/17 at 02:16; Status DC Cephalexin HCl (Keflex) 500 mg TID PO Last administered on 10/10/17at 14:18; Start 10/07/17 at 09:00; Stop 10/11/17 at 19:05; Status DC Acetaminophen (Tylenol) 650 mg PRN Q6HRS PRN PO PAIN / TEMP Last administered on 10/13/17at 19:43; Start 10/07/17 at 03:45 Multi-Ingredient Ointment (Analgesic Bayard) 1 guanaco PRN QID PRN TP MUSCLE PAIN; Start 10/07/17 at 03:45 Al Hydroxide/Mg Hydroxide (Mylanta Plus Xs) 15 ml PRN AFTMEALHC PRN PO DYSPEPSIA; Start 10/07/17 at 03:45 Magnesium Hydroxide (Milk Of Magnesia) 2,400 mg PRN QHS PRN PO CONSTIPATION; Start 10/07/17 at 03:45 Vitamin D (Vitamin D3) 50,000 unit QTH@0900 PO Last administered on 10/24/17at 08:33; Start 10/10/17 at 09:00 Multi-Ingredient Ointment (Analgesic Bayard) 1 guanaco PRN QID PRN TP MUSCLE PAIN; Start 10/07/17 at 08:00; Status UNV Potassium Chloride (Klor-Con) 40 meq BIDWMEALS PO Last administered on at 07:40; Start 10/07/17 at 08:00; Stop 10/21/17 at 15:48; Status DC Theophylline (Theodur) 200 mg BID PO ; Start 10/07/17 at 09:00; Stop 10/07/17 at 09:00; Status DC Amantadine HCl (Symmetrel) 100 mg BID PO Last administered on 10/26/17at 20:52; Start 10/07/17 at 09:00 Buspirone HCl (Buspar) 5 mg QID PO Last administered on 10/12/17at 19:26; Start 10/07/17 at 09:00; Stop 10/12/17 at 19:48; Status DC Clonazepam (KlonoPIN) 1 mg TID PO Last administered on 10/26/17at 20:50; Start at 09:00 Diltiazem HCl (Cardizem 24hr Cd) 120 mg DAILY PO Last administered on 10/26/17at 07:47; Start 10/07/17 at 09:00 Divalproex Sodium (Depakote Sprinkles) 750 mg BID PO Last administered on at 10:18; Start 10/07/17 at 09:00; Stop 10/08/17 at 18:28; Status DC Furosemide (Lasix) 80 mg BID92 PO Last administered on 10/11/17at 13:49; Start 10/07/17 at 09:00; Stop 10/13/17 at 17:39; Status DC Non-Formulary Medication (Haloperidol Decanoate (Haldol Decanoate 100)) 450 mg G32dydl IM ; Start 10/07/17 at 08:00; Status Cancel Non-Formulary Medication (Mag Hydrox/ Aluminum Hyd/ Simeth (Maalox Advanced Suspension)) 15 ml PRN AFTMEALHC PRN PO DYSPEPSIA; Start 10/07/17 at 08:00; Status UNV Non-Formulary Medication (Magnesium Hydroxide (Milk Of Magnesia)) 2,400 mg PRN QHS PRN PO CONSTIPATION; Start 10/07/17 at 08:00; Status UNV Magnesium Oxide (Magnesium Oxide) 400 mg BID PO Last administered on 10/26/17at 20:50; Start 10/07/17 at 09:00 Metformin HCl (Glucophage) 500 mg [id number] PO Last administered on 10/08/17at 10:19; Start 10/07/17 at 08:00; Stop 10/08/17 at 19:23; Status DC Metolazone (Zaroxolyn) 5 mg DAILY PO Last administered on 10/26/17at 07:53; Start 10/07/17 at 09:00 Mirtazapine (Remeron) 15 mg QHS PO Last administered on 10/26/17 20:50; Start 10/07/17 at 21:00 Pioglitazone HCl (Actos) 15 mg DAILY PO Last administered on 10/26/17at 07:47; Start 10/07/17 at 09:00 Haloperidol Decanoate (Haldol Decanoate Im Extended Release) 450 mg Q24D IM ; Start 10/18/17 at 08:00; Stop 10/18/17 at 18:43; Status DC Theophylline (Theophylline Extended Release) 200 mg BID PO Last administered on 10/26/17at 20:53; Start 10/07/17 at 09:00 Lactobacillus Rhamnosus (Culturelle) 1 cap BID PO Last administered on 20:51; Start 10/07/17 at 21:00 Clonazepam (KlonoPIN) 1 mg STK-MED ONCE .ROUTE ; Start 10/07/17 at 09:00; Stop 10/08/17 at 11:51; Status DC Clonazepam (KlonoPIN) 1 mg STK-MED ONCE .ROUTE ; Start 10/07/17 at 09:00; Stop 10/08/17 at 11:51; Status DC Clonazepam (KlonoPIN) 1 mg STK-MED ONCE .ROUTE ; Start 10/07/17 at 09:00; Stop 10/08/17 at 11:51; Status DC Diltiazem HCl (Cardizem 24hr Cd) 120 mg STK-MED ONCE PO ; Start 10/07/17 at 09: 00; Stop 10/08/17 at 11:51; Status DC Divalproex Sodium (Depakote Sprinkles) 750 mg STK-MED ONCE PO ; Start 10/07/17 at 09:00; Stop 10/08/17 at 11:51; Status DC Divalproex Sodium (Depakote Sprinkles) 750 mg STK-MED ONCE PO ; Start 10/07/17 at 09:00; Stop 10/08/17 at 11:51; Status DC Furosemide (Lasix) 80 mg STK-MED ONCE .ROUTE ; Start 10/07/17 at 09:00; Stop at 11:51; Status DC Furosemide (Lasix) 80 mg STK-MED ONCE .ROUTE ; Start 10/07/17 at 09:00; Stop at 11:51; Status DC Magnesium Oxide (Magnesium Oxide) 400 mg STK-MED ONCE .ROUTE ; Start 10/07/17 at 09:00; Stop 10/08/17 at 11:51; Status DC Metolazone (Zaroxolyn) 5 mg STK-MED ONCE .ROUTE ; Start 10/07/17 at 09:00; Stop 10/08/17 at 11:51; Status DC Mirtazapine (Remeron) 15 mg STK-MED ONCE .ROUTE ; Start 10/07/17 at 09:00; Stop 10/08/17 at 11:51; Status DC Clonazepam (KlonoPIN) 1 mg STK-MED ONCE .ROUTE ; Start 10/08/17 at 09:00; Stop 10/08/17 at 11:52; Status DC Diltiazem HCl (Cardizem 24hr Cd) 120 mg STK-MED ONCE PO ; Start 10/08/17 at 09: 00; Stop 10/08/17 at 11:52; Status DC Divalproex Sodium (Depakote Sprinkles) 750 mg STK-MED ONCE PO ; Start 10/08/17 at 09:00; Stop 10/08/17 at 11:52; Status DC Furosemide (Lasix) 80 mg STK-MED ONCE .ROUTE ; Start 10/08/17 at 09:00; Stop at 11:52; Status DC Magnesium Oxide (Magnesium Oxide) 400 mg STK-MED ONCE .ROUTE ; Start 10/08/17 at 09:00; Stop 10/08/17 at 11:52; Status DC Metolazone (Zaroxolyn) 5 mg STK-MED ONCE .ROUTE ; Start 10/08/17 at 09:00; Stop 10/08/17 at 11:52; Status DC Divalproex Sodium (Depakote Sprinkles) 1,000 mg BID PO Last administered on at 07:51; Start 10/08/17 at 21:00; Stop 10/11/17 at 09:40; Status DC Metformin HCl (Glucophage) 500 mg BIDWMEALS PO Last administered on 10/26/17at 18 :17; Start 10/09/17 at 08:00 Insulin Human Lispro (HumaLOG) 0-9 UNITS TIDWMEALS SQ Last administered on 18:18; Start 10/09/17 at 08:00 Dextrose 12.5 gm PRN Q15MIN PRN IV SEE COMMENTS; Start 10/08/17 at 19:30 Insulin Glargine (Lantus) 8 units 1X ONCE SQ Last administered on 10/08/17at 22 :10; Start 10/08/17 at 22:00; Stop 10/08/17 at 22:01; Status DC Olanzapine (ZyPREXA ZYDIS) 2.5 mg PRN Q2HR PRN PO PSYCHOSIS Last administered on 10/23/17at 07:48; Start 10/09/17 at 18:45 Valproic Acid (Depakene) 1,000 mg BID PO Last administered on 10/26/17at 20:50; Start 10/11/17 at 09:30 Haloperidol Lactate (Haldol Oral) 5 mg DAILY PO Last administered on 10/15/17at 07:45; Start 10/12/17 at 09:00; Stop 10/15/17 at 18:51; Status DC Potassium Chloride (Klor-Con) 40 meq Q1HR PO Last administered on 10/12/17at 09: 19; Start 10/12/17 at 10:00; Stop 10/12/17 at 10:15; Status DC Potassium Chloride (KCl Oral Soln) 40 meq Q1HR PEG Last administered on at 12:29; Start 10/12/17 at 11:00; Stop 10/12/17 at 13:01; Status DC Divalproex Sodium (Depakote Sprinkles) 250 mg 1X ONCE PO Last administered on 10/12/17at 10:45; Start 10/12/17 at 10:45; Stop 10/12/17 at 10:46; Status DC Buspirone HCl (Buspar) 10 mg QID PO ; Start 10/12/17 at 21:00; Stop 10/12/17 at 21:00; Status DC Buspirone HCl (Buspar) 10 mg TID@0900,1300,1700 PO Last administered on at 17:15; Start 10/13/17 at 09:00; Stop 10/16/17 at 18:36; Status DC Haloperidol Lactate (Haldol Oral) 7.5 mg DAILY PO Last administered on at 07:45; Start 10/16/17 at 09:00 Trazodone HCl (Desyrel) 50 mg PRN QHS PRN PO insomnia Last administered on at 19:19; Start 10/16/17 at 21:00; Stop 10/23/17 at 18:29; Status DC Buspirone HCl (Buspar) 10 mg BID@1300,1700 PO Last administered on 10/26/17at 18: 18; Start 10/17/17 at 13:00 Buspirone HCl (Buspar) 20 mg DAILY PO Last administered on 10/26/17at 07:45; Start 10/17/17 at 09:00 Haloperidol Decanoate (Haldol Decanoate Im Extended Release) 450 mg Q24D IM ; Start 10/22/17 at 09:00; Stop 10/22/17 at 16:52; Status DC Potassium Chloride (Klor-Con) 40 meq TID PO Last administered on 10/26/17at 20:51 ; Start 10/21/17 at 21:00 Furosemide (Lasix) 80 mg BID94 PO ; Start 10/21/17 at 16:00; Stop 10/21/17 at 16 :00; Status DC Furosemide (Lasix) 80 mg BID92 PO Last administered on 10/26/17at 11:51; Start at 16:00 Haloperidol Decanoate (Haldol Decanoate Im Extended Release) 450 mg Q24D IM ; Start 10/23/17 at 09:00; Stop 10/23/17 at 09:00; Status DC Haloperidol Decanoate (Haldol Decanoate Im Extended Release) 450 mg Q24D IM ; Start 10/22/18 at 21:00; Status Cancel Trazodone HCl (Desyrel) 25 mg TID@0900,1300,1700 PO Last administered on at 12:35; Start 10/23/17 at 09:00; Stop 10/24/17 at 15:32; Status DC Haloperidol Decanoate (Haldol Decanoate Im Extended Release) 450 mg Q24D ONCE IM Last administered on 10/22/17at 21:58; Start 10/22/17 at 22:00; Stop at 22:01; Status DC Trazodone HCl (Desyrel) 100 mg PRN QHS PRN PO insomnia Last administered on 10/25/17at 20:02; Start 10/23/17 at 18:30 Trazodone HCl (Desyrel) 37.5 mg TID@0900,1300,1700 PO Last administered on at 18:18; Start 10/24/17 at 17:00 Active Scripts Active Reported Novolog Flexpen (Insulin Aspart) 100 Unit/1 Ml Insuln.pen 8 Unit SQ TIDBFRMEAL Theophylline Anhydrous 200 Mg Tab.er.12h 200 Mg PO BID Metolazone 5 Mg Tablet 5 Mg PO DAILY Metformin Hcl 500 Mg Tablet 500 Mg PO BIDWMEALS Metformin Hcl 500 Mg Tablet 500 Mg PO DAILY Geodon (Ziprasidone Mesylate) 20 Mg Vial 20 Mg IM DAILY Cardizem Tablet (Diltiazem Hcl) 120 Mg Tablet 120 Mg PO DAILY Amantadine (Amantadine Hcl) 100 Mg Tablet 100 Mg PO BID Actos (Pioglitazone Hcl) 15 Mg Tablet 15 Mg PO DAILY Buspirone Hcl 5 Mg Tablet 5 Mg PO QID Mirtazapine 15 Mg Tablet 15 Mg PO QHS Haldol Decanoate 100 (Haloperidol Decanoate) 100 Mg/1 Ml Ampul 450 Mg IM [id number] Depakote Sprinkle (Divalproex Sodium) 125 Mg Cap.sprink 750 Mg PO BID Klor-Con M20 (Potassium Chloride) 20 Meq Tab.er.prt 40 Meq PO BIDWMEALS Analgesic Bayard (Methyl Salicylate/Menthol) 28 Gm Oint...g. 1 Guanaco TP PRN QID PRN Magnesium Oxide 400 Mg Tablet 400 Mg PO BID Milk Of Magnesia (Magnesium Hydroxide) 2,400 Mg/10 Ml Oral.susp 2,400 Mg PO PRN QHS PRN Maalox Advanced Suspension (Mag Hydrox/Aluminum Hyd/Simeth) 355 Ml Oral.susp 15 Ml PO PRN AFTMEALHC PRN D3-50 (Cholecalciferol (Vitamin D3)) 50,000 Unit Capsule 50,000 Unit PO QTH Levemir Flextouch (Insulin Detemir) 100 Unit/1 Ml Insuln.pen 55 Unit SQ QHS Clonazepam 1 Mg Tablet 1 Mg PO TID Furosemide 40 Mg Tablet 80 Mg PO [id number] Hold for SBP less than 100. After held dose, reassess in 2 hours. If SBP is above threshold, administer dose as ordered. If SBP is below threshold, contact provider for additional instructions. I have reviewed the current psychotropics carefully including drug interactions. Risk benefit ratio favors no change other than as noted in my dictated progress note. Diagnosis: Problems: (1) Depression (2) Schizoaffective disorder (3) Anxiety disorder (4) Impulse control disorder (5) Schizoaffective disorder, chronic condition with acute exacerbation (6) Mental status change KALIN STARKS MD Oct 26, 2017 22:11
[2017-10-27 05:58] VITALS: BP 137/70
[2017-10-27] MEDS: HALOPERIDOL 10 MG/5 ML ORAL.CONC. PO SCH (07:45)
[2017-10-27] MEDS: VALPROATE ACID 250 MG/5 ML ORAL SOLUTION PO SCH ×2 (07:46→20:37)
[2017-10-27] MEDS: traZODone 50 MG TABLET. PO SCH ×3 (07:47→17:09)
[2017-10-27] MEDS: PIOGLITAZONE 15 MG TABLET. PO SCH (07:47)
[2017-10-27] MEDS: FUROSEMIDE 40 MG TABLET PO SCH ×2 (07:47→12:05)
[2017-10-27] MEDS: LACTOBACILLUS RHAMNOSUS GG 1 CAPSULE. PO SCH ×2 (07:47→20:37)
[2017-10-27] MEDS: MAGNESIUM OXIDE 400 MG TABLET PO SCH ×2 (07:48→20:38)
[2017-10-27] MEDS: metFORMIN 500 MG TABLET PO SCH ×2 (07:48→17:09)
[2017-10-27] MEDS: POTASSIUM CHLORIDE 20 MEQ TABLET.ER. PO SCH ×3 (07:48→20:38)
[2017-10-27] MEDS: INSULIN LISPRO 300 UNITS/3 ML INSULN.PEN. SQ SCH ×3 (07:49→17:11)
[2017-10-27] MEDS: busPIRone 10 MG TABLET. PO SCH ×3 (07:49→17:09)
[2017-10-27] MEDS: clonazePAM 1 MG TABLET PO SCH ×3 (07:50→20:37)
[2017-10-27] MEDS: metOLazone 5 MG TABLET PO SCH (07:51)
[2017-10-27] MEDS: AMANTADINE HCL 100 MG CAPSULE PO SCH ×2 (07:51→20:38)
[2017-10-27] MEDS: THEOPHYLLINE ANHYDROUS 400 MG TABLET.ER. PO SCH ×2 (07:52→20:39)
[2017-10-27 16:33] VITALS: BP 134/90
--- NOTE | 2017-10-27 20:05 | PDOC ---
Exam Note: [place] Note: Please also refer to the separate dictated note~for this date of service dictated separately.~Patient seen individually. Discussed the patient with Nursing staff reviewed the chart.~Reviewed interim history and current functioning. Reviewed vital signs,~Labs/ Radiology~and current medications noted below. Continue current treatment with the changes noted in the dictated addendum note Assessment: Vital Signs: Vital Signs Date Time Temp Pulse Resp B/P (MAP) Pulse Ox O2 Delivery O2 Flow Rate FiO2 10/27/17 16:33 97.7 88 16 134/90 (105) 91 10/25/17 06:15 Nasal Cannula 2.0 I&O Intake and Output 10/27/17 07:00 Intake Total 840 ml Balance 840 ml Intake Oral 840 ml # Bowel Movements 1 Labs: Laboratory Tests Test 10/27/17 07:29 10/27/17 11:45 10/27/17 17:05 Glucose (Fingerstick) 211 mg/dL (70-99) H 319 mg/dL (70-99) H 236 mg/dL (70-99) H Current Medications: Meds: Current Medications Sodium Chloride 1,000 ml @ 1,000 mls/hr 1X ONCE IV Last administered on at 00:40; Start 10/06/17 at 22:30; Stop 10/06/17 at 23:29; Status DC Ziprasidone (Geodon Im) 20 mg 1X ONCE IM Last administered on 10/07/17at 00:06 ; Start 10/06/17 at 22:30; Stop 10/06/17 at 22:31; Status DC Diphenhydramine HCl (Benadryl) 50 mg 1X ONCE IV ; Start 10/06/17 at 22:30; Stop 10/06/17 at 23:08; Status DC Lorazepam (Ativan) 2 mg 1X ONCE IV ; Start 10/06/17 at 22:30; Stop 10/06/17 at 23:08; Status DC Diphenhydramine HCl (Benadryl) 50 mg 1X ONCE IM Last administered on at 23:09; Start 10/06/17 at 23:15; Stop 10/06/17 at 23:16; Status DC Lorazepam (Ativan) 2 mg 1X ONCE IM Last administered on 10/06/17at 23:09; Start 10/06/17 at 23:15; Stop 10/06/17 at 23:16; Status DC Ziprasidone (Geodon Im) 20 mg 1X ONCE IM ; Start 10/07/17 at 00:00; Stop at 00:01; Status DC Lorazepam (Ativan) 2 mg 1X ONCE IM Last administered on 10/07/17at 00:06; Start 10/07/17 at 00:00; Stop 10/07/17 at 00:01; Status DC Ceftriaxone Sodium (Rocephin Im) 1 gm 1X ONCE IM Last administered on at 00:40; Start 10/07/17 at 00:30; Stop 10/07/17 at 00:31; Status DC Magnesium Hydroxide (Milk Of Magnesia) 2,400 mg 1X ONCE PO Last administered on 10/07/17at 02:27; Start 10/07/17 at 02:15; Stop 10/07/17 at 02:16; Status DC Potassium Chloride (Klor-Con) 40 meq 1X ONCE PO Last administered on at 02:06; Start 10/07/17 at 02:15; Stop 10/07/17 at 02:16; Status DC Cephalexin HCl (Keflex) 500 mg TID PO Last administered on 10/10/17at 14:18; Start 10/07/17 at 09:00; Stop 10/11/17 at 19:05; Status DC Acetaminophen (Tylenol) 650 mg PRN Q6HRS PRN PO PAIN / TEMP Last administered on 10/13/17at 19:43; Start 10/07/17 at 03:45 Multi-Ingredient Ointment (Analgesic [place]) 1 guanaco PRN QID PRN TP MUSCLE PAIN; Start 10/07/17 at 03:45 Al Hydroxide/Mg Hydroxide (Mylanta Plus Xs) 15 ml PRN AFTMEALHC PRN PO DYSPEPSIA; Start 10/07/17 at 03:45 Magnesium Hydroxide (Milk Of Magnesia) 2,400 mg PRN QHS PRN PO CONSTIPATION; Start 10/07/17 at 03:45 Vitamin D (Vitamin D3) 50,000 unit QTH@0900 PO Last administered on 10/24/17at 08:33; Start 10/10/17 at 09:00 Multi-Ingredient Ointment (Analgesic [place]) 1 guanaco PRN QID PRN TP MUSCLE PAIN; Start 10/07/17 at 08:00; Status UNV Potassium Chloride (Klor-Con) 40 meq BIDWMEALS PO Last administered on at 07:40; Start 10/07/17 at 08:00; Stop 10/21/17 at 15:48; Status DC Theophylline (Theodur) 200 mg BID PO ; Start 10/07/17 at 09:00; Stop 10/07/17 at 09:00; Status DC Amantadine HCl (Symmetrel) 100 mg BID PO Last administered on 10/27/17 07:51; Start 10/07/17 at 09:00 Buspirone HCl (Buspar) 5 mg QID PO Last administered on 10/12/17at 19:26; Start 10/07/17 at 09:00; Stop 10/12/17 at 19:48; Status DC Clonazepam (KlonoPIN) 1 mg TID PO Last administered on 10/27/17at 12:05; Start at 09:00 Diltiazem HCl (Cardizem 24hr Cd) 120 mg DAILY PO Last administered on 10/27/17at 07:48; Start 10/07/17 at 09:00 Divalproex Sodium (Depakote Sprinkles) 750 mg BID PO Last administered on at 10:18; Start 10/07/17 at 09:00; Stop 10/08/17 at 18:28; Status DC Furosemide (Lasix) 80 mg [id number] PO Last administered on 10/11/17at 13:49; Start 10/07/17 at 09:00; Stop 10/13/17 at 17:39; Status DC Non-Formulary Medication (Haloperidol Decanoate (Haldol Decanoate 100)) 450 mg [id number] IM ; Start 10/07/17 at 08:00; Status Cancel Non-Formulary Medication (Mag Hydrox/ Aluminum Hyd/ Simeth (Maalox Advanced Suspension)) 15 ml PRN AFTMEALHC PRN PO DYSPEPSIA; Start 10/07/17 at 08:00; Status UNV Non-Formulary Medication (Magnesium Hydroxide (Milk Of Magnesia)) 2,400 mg PRN QHS PRN PO CONSTIPATION; Start 10/07/17 at 08:00; Status UNV Magnesium Oxide (Magnesium Oxide) 400 mg BID PO Last administered on 10/27/17at 07:48; Start 10/07/17 at 09:00 Metformin HCl (Glucophage) 500 mg [id number] PO Last administered on 10/08/17at 10:19; Start 10/07/17 at 08:00; Stop 10/08/17 at 19:23; Status DC Metolazone (Zaroxolyn) 5 mg DAILY PO Last administered on 10/27/17at 07:51; Start 10/07/17 at 09:00 Mirtazapine (Remeron) 15 mg QHS PO Last administered on 10/26/17at 20:50; Start 10/07/17 at 21:00 Pioglitazone HCl (Actos) 15 mg DAILY PO Last administered on 10/27/17at 07:47; Start 10/07/17 at 09:00 Haloperidol Decanoate (Haldol Decanoate Im Extended Release) 450 mg Q24D IM ; Start 10/18/17 at 08:00; Stop 10/18/17 at 18:43; Status DC Theophylline (Theophylline Extended Release) 200 mg BID PO Last administered on 10/27/17at 07:52; Start 10/07/17 at 09:00 Lactobacillus Rhamnosus (Culturelle) 1 cap BID PO Last administered on at 07:47; Start 10/07/17 at 21:00 Clonazepam (KlonoPIN) 1 mg STK-MED ONCE .ROUTE ; Start 10/07/17 at 09:00; Stop 10/08/17 at 11:51; Status DC Clonazepam (KlonoPIN) 1 mg STK-MED ONCE .ROUTE ; Start 10/07/17 at 09:00; Stop 10/08/17 at 11:51; Status DC Clonazepam (KlonoPIN) 1 mg STK-MED ONCE .ROUTE ; Start 10/07/17 at 09:00; Stop 10/08/17 at 11:51; Status DC Diltiazem HCl (Cardizem 24hr Cd) 120 mg STK-MED ONCE PO ; Start 10/07/17 at 09: 00; Stop 10/08/17 at 11:51; Status DC Divalproex Sodium (Depakote Sprinkles) 750 mg STK-MED ONCE PO ; Start 10/07/17 at 09:00; Stop 10/08/17 at 11:51; Status DC Divalproex Sodium (Depakote Sprinkles) 750 mg STK-MED ONCE PO ; Start 10/07/17 at 09:00; Stop 10/08/17 at 11:51; Status DC Furosemide (Lasix) 80 mg STK-MED ONCE .ROUTE ; Start 10/07/17 at 09:00; Stop at 11:51; Status DC Furosemide (Lasix) 80 mg STK-MED ONCE .ROUTE ; Start 10/07/17 at 09:00; Stop at 11:51; Status DC Magnesium Oxide (Magnesium Oxide) 400 mg STK-MED ONCE .ROUTE ; Start 10/07/17 at 09:00; Stop 10/08/17 at 11:51; Status DC Metolazone (Zaroxolyn) 5 mg STK-MED ONCE .ROUTE ; Start 10/07/17 at 09:00; Stop 10/08/17 at 11:51; Status DC Mirtazapine (Remeron) 15 mg STK-MED ONCE .ROUTE ; Start 10/07/17 at 09:00; Stop 10/08/17 at 11:51; Status DC Clonazepam (KlonoPIN) 1 mg STK-MED ONCE .ROUTE ; Start 10/08/17 at 09:00; Stop 10/08/17 at 11:52; Status DC Diltiazem HCl (Cardizem 24hr Cd) 120 mg STK-MED ONCE PO ; Start 10/08/17 at 09: 00; Stop 10/08/17 at 11:52; Status DC Divalproex Sodium (Depakote Sprinkles) 750 mg STK-MED ONCE PO ; Start 10/08/17 at 09:00; Stop 10/08/17 at 11:52; Status DC Furosemide (Lasix) 80 mg STK-MED ONCE .ROUTE ; Start 10/08/17 at 09:00; Stop at 11:52; Status DC Magnesium Oxide (Magnesium Oxide) 400 mg STK-MED ONCE .ROUTE ; Start 10/08/17 at 09:00; Stop 10/08/17 at 11:52; Status DC Metolazone (Zaroxolyn) 5 mg STK-MED ONCE .ROUTE ; Start 10/08/17 at 09:00; Stop 10/08/17 at 11:52; Status DC Divalproex Sodium (Depakote Sprinkles) 1,000 mg BID PO Last administered on at 07:51; Start 10/08/17 at 21:00; Stop 10/11/17 at 09:40; Status DC Metformin HCl (Glucophage) 500 mg BIDWMEALS PO Last administered on 10/27/17at 17 :09; Start 10/09/17 at 08:00 Insulin Human Lispro (HumaLOG) 0-9 UNITS TIDWMEALS SQ Last administered on 17:11; Start 10/09/17 at 08:00 Dextrose 12.5 gm PRN Q15MIN PRN IV SEE COMMENTS; Start 10/08/17 at 19:30 Insulin Glargine (Lantus) 8 units 1X ONCE SQ Last administered on 10/08/17at 22 :10; Start 10/08/17 at 22:00; Stop 10/08/17 at 22:01; Status DC Olanzapine (ZyPREXA ZYDIS) 2.5 mg PRN Q2HR PRN PO PSYCHOSIS Last administered on 10/27/17 12:05; Start 10/09/17 at 18:45 Valproic Acid (Depakene) 1,000 mg BID PO Last administered on 10/27/17at 07:46; Start 10/11/17 at 09:30 Haloperidol Lactate (Haldol Oral) 5 mg DAILY PO Last administered on 10/15/17at 07:45; Start 10/12/17 at 09:00; Stop 10/15/17 at 18:51; Status DC Potassium Chloride (Klor-Con) 40 meq Q1HR PO Last administered on 10/12/17at 09: 19; Start 10/12/17 at 10:00; Stop 10/12/17 at 10:15; Status DC Potassium Chloride (KCl Oral Soln) 40 meq Q1HR PEG Last administered on at 12:29; Start 10/12/17 at 11:00; Stop 10/12/17 at 13:01; Status DC Divalproex Sodium (Depakote Sprinkles) 250 mg 1X ONCE PO Last administered on 10/12/17at 10:45; Start 10/12/17 at 10:45; Stop 10/12/17 at 10:46; Status DC Buspirone HCl (Buspar) 10 mg QID PO ; Start 10/12/17 at 21:00; Stop 10/12/17 at 21:00; Status DC Buspirone HCl (Buspar) 10 mg TID@0900,1300,1700 PO Last administered on at 17:15; Start 10/13/17 at 09:00; Stop 10/16/17 at 18:36; Status DC Haloperidol Lactate (Haldol Oral) 7.5 mg DAILY PO Last administered on at 07:45; Start 10/16/17 at 09:00 Trazodone HCl (Desyrel) 50 mg PRN QHS PRN PO insomnia Last administered on at 19:19; Start 10/16/17 at 21:00; Stop 10/23/17 at 18:29; Status DC Buspirone HCl (Buspar) 10 mg BID@1300,1700 PO Last administered on 10/27/17at 17: 09; Start 10/17/17 at 13:00 Buspirone HCl (Buspar) 20 mg DAILY PO Last administered on 10/27/17at 07:49; Start 10/17/17 at 09:00 Haloperidol Decanoate (Haldol Decanoate Im Extended Release) 450 mg Q24D IM ; Start 10/22/17 at 09:00; Stop 10/22/17 at 16:52; Status DC Potassium Chloride (Klor-Con) 40 meq TID PO Last administered on 10/27/17at 12:05 ; Start 10/21/17 at 21:00 Furosemide (Lasix) 80 mg BID94 PO ; Start 10/21/17 at 16:00; Stop 10/21/17 at 16 :00; Status DC Furosemide (Lasix) 80 mg BID92 PO Last administered on 10/27/17at 12:05; Start at 16:00 Haloperidol Decanoate (Haldol Decanoate Im Extended Release) 450 mg Q24D IM ; Start 10/23/17 at 09:00; Stop 10/23/17 at 09:00; Status DC Haloperidol Decanoate (Haldol Decanoate Im Extended Release) 450 mg Q24D IM ; Start 10/22/18 at 21:00; Status Cancel Trazodone HCl (Desyrel) 25 mg TID@0900,1300,1700 PO Last administered on at 12:35; Start 10/23/17 at 09:00; Stop 10/24/17 at 15:32; Status DC Haloperidol Decanoate (Haldol Decanoate Im Extended Release) 450 mg Q24D ONCE IM Last administered on 10/22/17at 21:58; Start 10/22/17 at 22:00; Stop at 22:01; Status DC Trazodone HCl (Desyrel) 100 mg PRN QHS PRN PO insomnia Last administered on 10/25/17at 20:02; Start 10/23/17 at 18:30; Stop 10/27/17 at 16:01; Status DC Trazodone HCl (Desyrel) 37.5 mg TID@0900,1300,1700 PO Last administered on at 17:09; Start 10/24/17 at 17:00 Trazodone HCl (Desyrel) 200 mg PRN QHS PRN PO insomnia ; Start 10/27/17 at 15:45 Active Scripts Active Reported Novolog Flexpen (Insulin Aspart) 100 Unit/1 Ml Insuln.pen 8 Unit SQ TIDBFRMEAL Theophylline Anhydrous 200 Mg Tab.er.12h 200 Mg PO BID Metolazone 5 Mg Tablet 5 Mg PO DAILY Metformin Hcl 500 Mg Tablet 500 Mg PO BIDWMEALS Metformin Hcl 500 Mg Tablet 500 Mg PO DAILY Geodon (Ziprasidone Mesylate) 20 Mg Vial 20 Mg IM DAILY Cardizem Tablet (Diltiazem Hcl) 120 Mg Tablet 120 Mg PO DAILY Amantadine (Amantadine Hcl) 100 Mg Tablet 100 Mg PO BID Actos (Pioglitazone Hcl) 15 Mg Tablet 15 Mg PO DAILY Buspirone Hcl 5 Mg Tablet 5 Mg PO QID Mirtazapine 15 Mg Tablet 15 Mg PO QHS Haldol Decanoate 100 (Haloperidol Decanoate) 100 Mg/1 Ml Ampul 450 Mg IM [id number] Depakote Sprinkle (Divalproex Sodium) 125 Mg Cap.sprink 750 Mg PO BID Klor-Con M20 (Potassium Chloride) 20 Meq Tab.er.prt 40 Meq PO BIDWMEALS Analgesic [place] (Methyl Salicylate/Menthol) 28 Gm Oint...g. 1 Guanaco TP PRN QID PRN Magnesium Oxide 400 Mg Tablet 400 Mg PO BID Milk Of Magnesia (Magnesium Hydroxide) 2,400 Mg/10 Ml Oral.susp 2,400 Mg PO PRN QHS PRN Maalox Advanced Suspension (Mag Hydrox/Aluminum Hyd/Simeth) 355 Ml Oral.susp 15 Ml PO PRN AFTMEALHC PRN D3-50 (Cholecalciferol (Vitamin D3)) 50,000 Unit Capsule 50,000 Unit PO QTH Levemir Flextouch (Insulin Detemir) 100 Unit/1 Ml Insuln.pen 55 Unit SQ QHS Clonazepam 1 Mg Tablet 1 Mg PO TID Furosemide 40 Mg Tablet 80 Mg PO [id number] Hold for SBP less than 100. After held dose, reassess in 2 hours. If SBP is above threshold, administer dose as ordered. If SBP is below threshold, contact provider for additional instructions. I have reviewed the current psychotropics carefully including drug interactions. Risk benefit ratio favors no change other than as noted in my dictated progress note. Diagnosis: Problems: (1) Depression (2) Schizoaffective disorder (3) Anxiety disorder (4) Impulse control disorder (5) Schizoaffective disorder, chronic condition with acute exacerbation (6) Mental status change KALIN STARKS MD Oct 27, 2017 20:05
[2017-10-27] MEDS: MIRTAZAPINE 15 MG TABLET PO SCH (20:37)
[2017-10-27] MEDS: traZODone 100 MG TABLET. PO PRN (20:55)
[2017-10-28 06:00] VITALS: BP 117/50
[2017-10-28] MEDS: MAGNESIUM OXIDE 400 MG TABLET PO SCH ×3 (09:41→19:55)
[2017-10-28] MEDS: busPIRone 10 MG TABLET. PO SCH ×3 (09:41→17:39)
[2017-10-28] MEDS: PIOGLITAZONE 15 MG TABLET. PO SCH (09:41)
[2017-10-28] MEDS: metFORMIN 500 MG TABLET PO SCH ×2 (09:41→17:39)
[2017-10-28] MEDS: clonazePAM 1 MG TABLET PO SCH ×4 (09:42→19:57)
[2017-10-28] MEDS: LACTOBACILLUS RHAMNOSUS GG 1 CAPSULE. PO SCH ×2 (09:42→19:55)
[2017-10-28] MEDS: POTASSIUM CHLORIDE 20 MEQ TABLET.ER. PO SCH ×4 (09:42→19:55)
[2017-10-28] MEDS: traZODone 50 MG TABLET. PO SCH ×3 (09:42→17:39)
[2017-10-28] MEDS: FUROSEMIDE 40 MG TABLET PO SCH ×2 (09:42→13:53)
[2017-10-28] MEDS: VALPROATE ACID 250 MG/5 ML ORAL SOLUTION PO SCH ×2 (09:43→19:57)
[2017-10-28] MEDS: HALOPERIDOL 10 MG/5 ML ORAL.CONC. PO SCH (09:43)
[2017-10-28] MEDS: INSULIN LISPRO 300 UNITS/3 ML INSULN.PEN. SQ SCH ×3 (09:44→17:41)
[2017-10-28] MEDS: metOLazone 5 MG TABLET PO SCH (09:47)
[2017-10-28] MEDS: THEOPHYLLINE ANHYDROUS 400 MG TABLET.ER. PO SCH ×2 (09:47→20:38)
[2017-10-28] MEDS: AMANTADINE HCL 100 MG CAPSULE PO SCH ×2 (09:47→19:57)
[2017-10-28 16:46] VITALS: BP 138/62
[2017-10-28] MEDS: MIRTAZAPINE 15 MG TABLET PO SCH (19:55)
[2017-10-28] MEDS: traZODone 100 MG TABLET. PO PRN (19:57)
--- NOTE | 2017-10-28 20:56 | PDOC ---
Exam Note: Napoleon Note: Please also refer to the separate dictated note~for this date of service dictated separately.~Patient seen individually. Discussed the patient with Nursing staff reviewed the chart.~Reviewed interim history and current functioning. Reviewed vital signs,~Labs/ Radiology~and current medications noted below. Continue current treatment with the changes noted in the dictated addendum note Assessment: Vital Signs: Vital Signs Date Time Temp Pulse Resp B/P (MAP) Pulse Ox O2 Delivery O2 Flow Rate FiO2 10/28/17 16:46 96.6 64 22 138/62 (87) 96 Room Air 10/28/17 06:00 2.0 I&O Intake and Output 10/28/17 07:00 Intake Total 1440 ml Balance 1440 ml Intake Oral 1440 ml # Bowel Movements 3 Labs: Laboratory Tests Test 10/28/17 07:48 10/28/17 11:53 10/28/17 16:42 10/28/17 19:28 Glucose (Fingerstick) 168 mg/dL (70-99) H 262 mg/dL (70-99) H 220 mg/dL (70-99) H 198 mg/dL (70-99) H Current Medications: Meds: Current Medications Sodium Chloride 1,000 ml @ 1,000 mls/hr 1X ONCE IV Last administered on at 00:40; Start 10/06/17 at 22:30; Stop 10/06/17 at 23:29; Status DC Ziprasidone (Geodon Im) 20 mg 1X ONCE IM Last administered on 10/07/17at 00:06 ; Start 10/06/17 at 22:30; Stop 10/06/17 at 22:31; Status DC Diphenhydramine HCl (Benadryl) 50 mg 1X ONCE IV ; Start 10/06/17 at 22:30; Stop 10/06/17 at 23:08; Status DC Lorazepam (Ativan) 2 mg 1X ONCE IV ; Start 10/06/17 at 22:30; Stop 10/06/17 at 23:08; Status DC Diphenhydramine HCl (Benadryl) 50 mg 1X ONCE IM Last administered on at 23:09; Start 10/06/17 at 23:15; Stop 10/06/17 at 23:16; Status DC Lorazepam (Ativan) 2 mg 1X ONCE IM Last administered on 10/06/17at 23:09; Start 10/06/17 at 23:15; Stop 10/06/17 at 23:16; Status DC Ziprasidone (Geodon Im) 20 mg 1X ONCE IM ; Start 10/07/17 at 00:00; Stop at 00:01; Status DC Lorazepam (Ativan) 2 mg 1X ONCE IM Last administered on 10/07/17at 00:06; Start 10/07/17 at 00:00; Stop 10/07/17 at 00:01; Status DC Ceftriaxone Sodium (Rocephin Im) 1 gm 1X ONCE IM Last administered on at 00:40; Start 10/07/17 at 00:30; Stop 10/07/17 at 00:31; Status DC Magnesium Hydroxide (Milk Of Magnesia) 2,400 mg 1X ONCE PO Last administered on 10/07/17at 02:27; Start 10/07/17 at 02:15; Stop 10/07/17 at 02:16; Status DC Potassium Chloride (Klor-Con) 40 meq 1X ONCE PO Last administered on at 02:06; Start 10/07/17 at 02:15; Stop 10/07/17 at 02:16; Status DC Cephalexin HCl (Keflex) 500 mg TID PO Last administered on 10/10/17at 14:18; Start 10/07/17 at 09:00; Stop 10/11/17 at 19:05; Status DC Acetaminophen (Tylenol) 650 mg PRN Q6HRS PRN PO PAIN / TEMP Last administered on 10/13/17at 19:43; Start 10/07/17 at 03:45 Multi-Ingredient Ointment (Analgesic [place]) 1 guanaco PRN QID PRN TP MUSCLE PAIN; Start 10/07/17 at 03:45 Al Hydroxide/Mg Hydroxide (Mylanta Plus Xs) 15 ml PRN AFTMEALHC PRN PO DYSPEPSIA; Start 10/07/17 at 03:45 Magnesium Hydroxide (Milk Of Magnesia) 2,400 mg PRN QHS PRN PO CONSTIPATION; Start 10/07/17 at 03:45 Vitamin D (Vitamin D3) 50,000 unit QTH@0900 PO Last administered on 10/24/17at 08:33; Start 10/10/17 at 09:00 Multi-Ingredient Ointment (Analgesic [place]) 1 guanaco PRN QID PRN TP MUSCLE PAIN; Start 10/07/17 at 08:00; Status UNV Potassium Chloride (Klor-Con) 40 meq BIDWMEALS PO Last administered on at 07:40; Start 10/07/17 at 08:00; Stop 10/21/17 at 15:48; Status DC Theophylline (Theodur) 200 mg BID PO ; Start 10/07/17 at 09:00; Stop 10/07/17 at 09:00; Status DC Amantadine HCl (Symmetrel) 100 mg BID PO Last administered on 10/28/17 19:57; Start 10/07/17 at 09:00 Buspirone HCl (Buspar) 5 mg QID PO Last administered on 10/12/17at 19:26; Start 10/07/17 at 09:00; Stop 10/12/17 at 19:48; Status DC Clonazepam (KlonoPIN) 1 mg TID PO Last administered on 10/28/17 19:57; Start at 09:00 Diltiazem HCl (Cardizem 24hr Cd) 120 mg DAILY PO Last administered on 10/28/17 09:41; Start 10/07/17 at 09:00 Divalproex Sodium (Depakote Sprinkles) 750 mg BID PO Last administered on at 10:18; Start 10/07/17 at 09:00; Stop 10/08/17 at 18:28; Status DC Furosemide (Lasix) 80 mg [id number] PO Last administered on 10/11/17at 13:49; Start 10/07/17 at 09:00; Stop 10/13/17 at 17:39; Status DC Non-Formulary Medication (Haloperidol Decanoate (Haldol Decanoate 100)) 450 mg [id number] IM ; Start 10/07/17 at 08:00; Status Cancel Non-Formulary Medication (Mag Hydrox/ Aluminum Hyd/ Simeth (Maalox Advanced Suspension)) 15 ml PRN AFTMEALHC PRN PO DYSPEPSIA; Start 10/07/17 at 08:00; Status UNV Non-Formulary Medication (Magnesium Hydroxide (Milk Of Magnesia)) 2,400 mg PRN QHS PRN PO CONSTIPATION; Start 10/07/17 at 08:00; Status UNV Magnesium Oxide (Magnesium Oxide) 400 mg BID PO Last administered on 10/28/17 19:55; Start 10/07/17 at 09:00 Metformin HCl (Glucophage) 500 mg [id number] PO Last administered on 10/08/17at 10:19; Start 10/07/17 at 08:00; Stop 10/08/17 at 19:23; Status DC Metolazone (Zaroxolyn) 5 mg DAILY PO Last administered on 10/28/17 09:47; Start 10/07/17 at 09:00 Mirtazapine (Remeron) 15 mg QHS PO Last administered on 10/28/17 19:55; Start 10/07/17 at 21:00 Pioglitazone HCl (Actos) 15 mg DAILY PO Last administered on 10/28/17 09:41; Start 10/07/17 at 09:00 Haloperidol Decanoate (Haldol Decanoate Im Extended Release) 450 mg Q24D IM ; Start 10/18/17 at 08:00; Stop 10/18/17 at 18:43; Status DC Theophylline (Theophylline Extended Release) 200 mg BID PO Last administered on 10/28/17 20:38; Start 10/07/17 at 09:00 Lactobacillus Rhamnosus (Culturelle) 1 cap BID PO Last administered on 19:55; Start 10/07/17 at 21:00 Clonazepam (KlonoPIN) 1 mg STK-MED ONCE .ROUTE ; Start 10/07/17 at 09:00; Stop 10/08/17 at 11:51; Status DC Clonazepam (KlonoPIN) 1 mg STK-MED ONCE .ROUTE ; Start 10/07/17 at 09:00; Stop 10/08/17 at 11:51; Status DC Clonazepam (KlonoPIN) 1 mg STK-MED ONCE .ROUTE ; Start 10/07/17 at 09:00; Stop 10/08/17 at 11:51; Status DC Diltiazem HCl (Cardizem 24hr Cd) 120 mg STK-MED ONCE PO ; Start 10/07/17 at 09: 00; Stop 5/15/18 at 11:51; Status DC Divalproex Sodium (Depakote Sprinkles) 750 mg STK-MED ONCE PO ; Start 10/07/17 at 09:00; Stop 10/08/17 at 11:51; Status DC Divalproex Sodium (Depakote Sprinkles) 750 mg STK-MED ONCE PO ; Start 10/07/17 at 09:00; Stop 10/08/17 at 11:51; Status DC Furosemide (Lasix) 80 mg STK-MED ONCE .ROUTE ; Start 10/07/17 at 09:00; Stop at 11:51; Status DC Furosemide (Lasix) 80 mg STK-MED ONCE .ROUTE ; Start 10/07/17 at 09:00; Stop at 11:51; Status DC Magnesium Oxide (Magnesium Oxide) 400 mg STK-MED ONCE .ROUTE ; Start 10/07/17 at 09:00; Stop 10/08/17 at 11:51; Status DC Metolazone (Zaroxolyn) 5 mg STK-MED ONCE .ROUTE ; Start 10/07/17 at 09:00; Stop 10/08/17 at 11:51; Status DC Mirtazapine (Remeron) 15 mg STK-MED ONCE .ROUTE ; Start 10/07/17 at 09:00; Stop 10/08/17 at 11:51; Status DC Clonazepam (KlonoPIN) 1 mg STK-MED ONCE .ROUTE ; Start 10/08/17 at 09:00; Stop 10/08/17 at 11:52; Status DC Diltiazem HCl (Cardizem 24hr Cd) 120 mg STK-MED ONCE PO ; Start 10/08/17 at 09: 00; Stop 10/08/17 at 11:52; Status DC Divalproex Sodium (Depakote Sprinkles) 750 mg STK-MED ONCE PO ; Start 10/08/17 at 09:00; Stop 10/08/17 at 11:52; Status DC Furosemide (Lasix) 80 mg STK-MED ONCE .ROUTE ; Start 10/08/17 at 09:00; Stop at 11:52; Status DC Magnesium Oxide (Magnesium Oxide) 400 mg STK-MED ONCE .ROUTE ; Start 10/08/17 at 09:00; Stop 10/08/17 at 11:52; Status DC Metolazone (Zaroxolyn) 5 mg STK-MED ONCE .ROUTE ; Start 10/08/17 at 09:00; Stop 10/08/17 at 11:52; Status DC Divalproex Sodium (Depakote Sprinkles) 1,000 mg BID PO Last administered on at 07:51; Start 10/08/17 at 21:00; Stop 10/11/17 at 09:40; Status DC Metformin HCl (Glucophage) 500 mg BIDWMEALS PO Last administered on 10/28/17 17 :39; Start 10/09/17 at 08:00 Insulin Human Lispro (HumaLOG) 0-9 UNITS TIDWMEALS SQ Last administered on 17:41; Start 10/09/17 at 08:00 Dextrose 12.5 gm PRN Q15MIN PRN IV SEE COMMENTS; Start 10/08/17 at 19:30 Insulin Glargine (Lantus) 8 units 1X ONCE SQ Last administered on 10/08/17at 22 :10; Start 10/08/17 at 22:00; Stop 10/08/17 at 22:01; Status DC Olanzapine (ZyPREXA ZYDIS) 2.5 mg PRN Q2HR PRN PO PSYCHOSIS Last administered on 10/27/17at 12:05; Start 10/09/17 at 18:45 Valproic Acid (Depakene) 1,000 mg BID PO Last administered on 10/28/17 19:57; Start 10/11/17 at 09:30 Haloperidol Lactate (Haldol Oral) 5 mg DAILY PO Last administered on 10/15/17at 07:45; Start 10/12/17 at 09:00; Stop 10/15/17 at 18:51; Status DC Potassium Chloride (Klor-Con) 40 meq Q1HR PO Last administered on 10/12/17at 09: 19; Start 10/12/17 at 10:00; Stop 10/12/17 at 10:15; Status DC Potassium Chloride (KCl Oral Soln) 40 meq Q1HR PEG Last administered on at 12:29; Start 10/12/17 at 11:00; Stop 10/12/17 at 13:01; Status DC Divalproex Sodium (Depakote Sprinkles) 250 mg 1X ONCE PO Last administered on 10/12/17at 10:45; Start 10/12/17 at 10:45; Stop 10/12/17 at 10:46; Status DC Buspirone HCl (Buspar) 10 mg QID PO ; Start 10/12/17 at 21:00; Stop 10/12/17 at 21:00; Status DC Buspirone HCl (Buspar) 10 mg TID@0900,1300,1700 PO Last administered on at 17:15; Start 10/13/17 at 09:00; Stop 10/16/17 at 18:36; Status DC Haloperidol Lactate (Haldol Oral) 7.5 mg DAILY PO Last administered on 09:43; Start 10/16/17 at 09:00 Trazodone HCl (Desyrel) 50 mg PRN QHS PRN PO insomnia Last administered on 19:19; Start 10/16/17 at 21:00; Stop 10/23/17 at 18:29; Status DC Buspirone HCl (Buspar) 10 mg BID@1300,1700 PO Last administered on 10/28/17at 17: 39; Start 10/17/17 at 13:00 Buspirone HCl (Buspar) 20 mg DAILY PO Last administered on 10/28/17at 09:41; Start 10/17/17 at 09:00 Haloperidol Decanoate (Haldol Decanoate Im Extended Release) 450 mg Q24D IM ; Start 10/22/17 at 09:00; Stop 10/22/17 at 16:52; Status DC Potassium Chloride (Klor-Con) 40 meq TID PO Last administered on 10/28/17at 19:55 ; Start 10/21/17 at 21:00 Furosemide (Lasix) 80 mg BID94 PO ; Start 10/21/17 at 16:00; Stop 10/21/17 at 16 :00; Status DC Furosemide (Lasix) 80 mg BID92 PO Last administered on 10/28/17at 13:53; Start at 16:00 Haloperidol Decanoate (Haldol Decanoate Im Extended Release) 450 mg Q24D IM ; Start 10/23/17 at 09:00; Stop 10/23/17 at 09:00; Status DC Haloperidol Decanoate (Haldol Decanoate Im Extended Release) 450 mg Q24D IM ; Start 10/22/18 at 21:00; Status Cancel Trazodone HCl (Desyrel) 25 mg TID@0900,1300,1700 PO Last administered on at 12:35; Start 10/23/17 at 09:00; Stop 10/24/17 at 15:32; Status DC Haloperidol Decanoate (Haldol Decanoate Im Extended Release) 450 mg Q24D ONCE IM Last administered on 10/22/17at 21:58; Start 10/22/17 at 22:00; Stop at 22:01; Status DC Trazodone HCl (Desyrel) 100 mg PRN QHS PRN PO insomnia Last administered on 10/25/17at 20:02; Start 10/23/17 at 18:30; Stop 10/27/17 at 16:01; Status DC Trazodone HCl (Desyrel) 37.5 mg TID@0900,1300,1700 PO Last administered on at 17:39; Start 10/24/17 at 17:00 Trazodone HCl (Desyrel) 200 mg PRN QHS PRN PO insomnia Last administered on 10/28/17at 19:57; Start 10/27/17 at 15:45 Active Scripts Active Reported Novolog Flexpen (Insulin Aspart) 100 Unit/1 Ml Insuln.pen 8 Unit SQ TIDBFRMEAL Theophylline Anhydrous 200 Mg Tab.er.12h 200 Mg PO BID Metolazone 5 Mg Tablet 5 Mg PO DAILY Metformin Hcl 500 Mg Tablet 500 Mg PO BIDWMEALS Metformin Hcl 500 Mg Tablet 500 Mg PO DAILY Geodon (Ziprasidone Mesylate) 20 Mg Vial 20 Mg IM DAILY Cardizem Tablet (Diltiazem Hcl) 120 Mg Tablet 120 Mg PO DAILY Amantadine (Amantadine Hcl) 100 Mg Tablet 100 Mg PO BID Actos (Pioglitazone Hcl) 15 Mg Tablet 15 Mg PO DAILY Buspirone Hcl 5 Mg Tablet 5 Mg PO QID Mirtazapine 15 Mg Tablet 15 Mg PO QHS Haldol Decanoate 100 (Haloperidol Decanoate) 100 Mg/1 Ml Ampul 450 Mg IM [id number] Depakote Sprinkle (Divalproex Sodium) 125 Mg Cap.sprink 750 Mg PO BID Klor-Con M20 (Potassium Chloride) 20 Meq Tab.er.prt 40 Meq PO BIDWMEALS Analgesic [place] (Methyl Salicylate/Menthol) 28 Gm Oint...g. 1 Guanaco TP PRN QID PRN Magnesium Oxide 400 Mg Tablet 400 Mg PO BID Milk Of Magnesia (Magnesium Hydroxide) 2,400 Mg/10 Ml Oral.susp 2,400 Mg PO PRN QHS PRN Maalox Advanced Suspension (Mag Hydrox/Aluminum Hyd/Simeth) 355 Ml Oral.susp 15 Ml PO PRN AFTMEALHC PRN D3-50 (Cholecalciferol (Vitamin D3)) 50,000 Unit Capsule 50,000 Unit PO QTH Levemir Flextouch (Insulin Detemir) 100 Unit/1 Ml Insuln.pen 55 Unit SQ QHS Clonazepam 1 Mg Tablet 1 Mg PO TID Furosemide 40 Mg Tablet 80 Mg PO [id number] Hold for SBP less than 100. After held dose, reassess in 2 hours. If SBP is above threshold, administer dose as ordered. If SBP is below threshold, contact provider for additional instructions. I have reviewed the current psychotropics carefully including drug interactions. Risk benefit ratio favors no change other than as noted in my dictated progress note. Diagnosis: Problems: (1) Depression (2) Schizoaffective disorder (3) Anxiety disorder (4) Impulse control disorder (5) Schizoaffective disorder, chronic condition with acute exacerbation (6) Mental status change KALIN STARKS MD Oct 28, 2017 20:55
--- NOTE | 2017-10-28 22:02 | PN ---
DATE: 10/25/2017 This is a late entry for 10/25/2017 covers elements not covered in my initial note of 10/25/2017. SUBJECTIVE: I met with the patient in the evening. The patient slept 7-3/4 hours. She gets somewhat agitated, takes some medications with Boost, but was yelling in the morning, less so in the evening. REVIEW OF SYSTEMS: No CV, , pulmonary, eye system symptoms on review. Gait unsteady, in wheelchair. MENTAL STATUS EXAM: Oriented to herself and situation. Speech coherent, rapid at times. Abstraction fair, computation impaired, language function intact, attention span short. Mood and affect remain somewhat labile, remains intermittently psychotic. LABS: Valproic acid level therapeutic at 85. IMPRESSION: Schizoaffective disorder, bipolar type, mixed with psychotic features; cognitive disorder, unspecified. Rest unchanged. PLAN: Continue psychotropics from initial note. MAN Mary STARKS MD DR: TRACIE/karli JOB#: [id number] / [id number]
--- NOTE | 2017-10-28 22:04 | PN ---
DATE: 10/26/2017 This is a late entry of 10/26/2017, covers elements not covered in my initial note of 10/26/2017. SUBJECTIVE: I met with the patient in the evening. The patient remains somewhat anxious, labile. In the morning, she took meds with Boost, not aggressive, somewhat better during the day, slept 3-3/4 hours and we will repeat the trazodone at night to help her sleep. REVIEW OF SYSTEMS: Ambulation impaired, in wheelchair. No CV, , pulmonary, eye system symptoms on review. MENTAL STATUS EXAM: Oriented to herself and situation. Speech coherent, abstraction fair, computation impaired, language function intact. Attention span short. Short term memory is impaired. Unable to do serial 7's. LABORATORY DATA: Reviewed. IMPRESSION: Schizoaffective disorder, bipolar type, mixed with psychotic features; cognitive disorder, unspecified. PLAN: Continue current psychotropics, repeat the trazodone ____. KALIN STARKS MD DR: TRACIE/karli JOB#: [id number] / [id number]
[2017-10-29] MEDS ORDERED: BUSP10TA PO ×2 (04:08→04:30)
[2017-10-29] MEDS ORDERED: ACET325T9 PO (04:18)
[2017-10-29] MEDS ORDERED: HALO5TAB PO (04:19)
[2017-10-29] MEDS ORDERED: LACT1CAP19 PO (04:20)
[2017-10-29] MEDS ORDERED: OLAN5TAB9 PO (04:21)
[2017-10-29] MEDS ORDERED: TRAZ50TA15 PO (04:22)
[2017-10-29] MEDS ORDERED: TRAZ-90 PO (04:23)
[2017-10-29] MEDS ORDERED: INSU100I17 SQ (04:29)
[2017-10-29] MEDS ORDERED: OLAN5TAB5 PO (04:30)
[2017-10-29] MEDS ORDERED: VALP250S3 PO (04:30)
[2017-10-29 06:14] VITALS: BP 133/66
[2017-10-29] MEDS: LACTOBACILLUS RHAMNOSUS GG 1 CAPSULE. PO SCH (08:37)
[2017-10-29] MEDS: traZODone 50 MG TABLET. PO SCH (08:37)
[2017-10-29] MEDS: AMANTADINE HCL 100 MG CAPSULE PO SCH (08:37)
[2017-10-29] MEDS: THEOPHYLLINE ANHYDROUS 400 MG TABLET.ER. PO SCH (08:37)
[2017-10-29] MEDS: MAGNESIUM OXIDE 400 MG TABLET PO SCH (08:37)
[2017-10-29 08:38] VITALS: BP 133/66
[2017-10-29] MEDS: FUROSEMIDE 40 MG TABLET PO SCH (08:38)
[2017-10-29] MEDS: PIOGLITAZONE 15 MG TABLET. PO SCH (08:38)
[2017-10-29] MEDS: metOLazone 5 MG TABLET PO SCH (08:38)
[2017-10-29] MEDS: POTASSIUM CHLORIDE 20 MEQ TABLET.ER. PO SCH (08:38)
[2017-10-29] MEDS: busPIRone 10 MG TABLET. PO SCH (08:39)
[2017-10-29] MEDS: VALPROATE ACID 250 MG/5 ML ORAL SOLUTION PO SCH (08:39)
[2017-10-29] MEDS: metFORMIN 500 MG TABLET PO SCH (08:39)
[2017-10-29] MEDS: HALOPERIDOL 10 MG/5 ML ORAL.CONC. PO SCH (08:39)
[2017-10-29] MEDS: INSULIN LISPRO 300 UNITS/3 ML INSULN.PEN. SQ SCH ×2 (08:41→12:19)
[2017-10-29] MEDS: clonazePAM 1 MG TABLET PO SCH (08:41)
--- NOTE | 2017-10-29 10:09 | PN ---
DATE: 10/27/2017 PSYCHIATRIC PROGRESS NOTE This late entry of 10/27/2017 covers elements not covered in my initial note of 10/27/2017. I met with the patient in the evening. The patient is compliant with her medications crushed. Compliant with insulin, was fighting with staff when blood sugars were being checked, yelling, screaming, but later compliant. She believes staff members racially are biased and states that is the reason she believes they do not take care of her. In fact, staffs have been going out of the way to address her needs. REVIEW OF SYSTEMS: Ambulation impaired, in wheelchair. No CV, , pulmonary, eye, ENT system symptoms on review. MENTAL STATUS EXAM: Oriented to herself and situation. Speech coherent, abstraction fair, computation impaired, language function intact, attention span short. Mood and affect remain somewhat anxious, labile at times. LABORATORY DATA: Reviewed. IMPRESSION: Unchanged from initial note, schizoaffective disorder, bipolar type, mixed with psychotic features, in partial remission; anxiety disorder, unspecified; cognitive disorder, unspecified. PLAN: Increase trazodone from 100 mg at bedtime p.r.n. to 200 mg p.o. at bedtime. Continue rest unchanged. Valproic acid level therapeutic at night 85. KALIN STARKS MD DR: TRACIE/karli JOB#: [id number] / [id number]
--- NOTE | 2017-10-29 18:21 | PDOC ---
Exam Note: [place] Note: Please also refer to the separate dictated note~for this date of service dictated separately.~Patient seen individually. Discussed the patient with Nursing staff reviewed the chart.~Reviewed interim history and current functioning. Reviewed vital signs,~Labs/ Radiology~and current medications noted below. Continue current treatment with the changes noted in the dictated addendum note Assessment: Vital Signs: Vital Signs Date Time Temp Pulse Resp B/P (MAP) Pulse Ox O2 Delivery O2 Flow Rate FiO2 10/29/17 08:38 83 133/66 10/29/17 06:14 19 10/28/17 16:46 96.6 96 Room Air 10/28/17 06:00 2.0 I&O Intake and Output 10/29/17 07:00 Intake Total 960 ml Balance 960 ml Intake Oral 960 ml Labs: Laboratory Tests Test 10/28/17 19:28 10/29/17 07:18 10/29/17 11:46 Glucose (Fingerstick) 198 mg/dL (70-99) H 222 mg/dL (70-99) H 259 mg/dL (70-99) H Current Medications: Meds: Current Medications Sodium Chloride 1,000 ml @ 1,000 mls/hr 1X ONCE IV Last administered on at 00:40; Start 10/06/17 at 22:30; Stop 10/06/17 at 23:29; Status DC Ziprasidone (Geodon Im) 20 mg 1X ONCE IM Last administered on 10/07/17at 00:06 ; Start 10/06/17 at 22:30; Stop 10/06/17 at 22:31; Status DC Diphenhydramine HCl (Benadryl) 50 mg 1X ONCE IV ; Start 10/06/17 at 22:30; Stop 10/06/17 at 23:08; Status DC Lorazepam (Ativan) 2 mg 1X ONCE IV ; Start 10/06/17 at 22:30; Stop 10/06/17 at 23:08; Status DC Diphenhydramine HCl (Benadryl) 50 mg 1X ONCE IM Last administered on at 23:09; Start 10/06/17 at 23:15; Stop 10/06/17 at 23:16; Status DC Lorazepam (Ativan) 2 mg 1X ONCE IM Last administered on 10/06/17at 23:09; Start 10/06/17 at 23:15; Stop 10/06/17 at 23:16; Status DC Ziprasidone (Geodon Im) 20 mg 1X ONCE IM ; Start 10/07/17 at 00:00; Stop at 00:01; Status DC Lorazepam (Ativan) 2 mg 1X ONCE IM Last administered on 10/07/17at 00:06; Start 10/07/17 at 00:00; Stop 10/07/17 at 00:01; Status DC Ceftriaxone Sodium (Rocephin Im) 1 gm 1X ONCE IM Last administered on at 00:40; Start 10/07/17 at 00:30; Stop 10/07/17 at 00:31; Status DC Magnesium Hydroxide (Milk Of Magnesia) 2,400 mg 1X ONCE PO Last administered on 10/07/17at 02:27; Start 10/07/17 at 02:15; Stop 10/07/17 at 02:16; Status DC Potassium Chloride (Klor-Con) 40 meq 1X ONCE PO Last administered on at 02:06; Start 10/07/17 at 02:15; Stop 10/07/17 at 02:16; Status DC Cephalexin HCl (Keflex) 500 mg TID PO Last administered on 10/10/17at 14:18; Start 10/07/17 at 09:00; Stop 10/11/17 at 19:05; Status DC Acetaminophen (Tylenol) 650 mg PRN Q6HRS PRN PO PAIN / TEMP Last administered on 10/13/17at 19:43; Start 10/07/17 at 03:45; Stop 10/29/17 at 13:03; Status DC Multi-Ingredient Ointment (Analgesic [place]) 1 guanaco PRN QID PRN TP MUSCLE PAIN; Start 10/07/17 at 03:45; Stop 10/29/17 at 13:03; Status DC Al Hydroxide/Mg Hydroxide (Mylanta Plus Xs) 15 ml PRN AFTMEALHC PRN PO DYSPEPSIA; Start 10/07/17 at 03:45; Stop 10/29/17 at 13:03; Status DC Magnesium Hydroxide (Milk Of Magnesia) 2,400 mg PRN QHS PRN PO CONSTIPATION; Start 10/07/17 at 03:45; Stop 10/29/17 at 13:03; Status DC Vitamin D (Vitamin D3) 50,000 unit QTH@0900 PO Last administered on 10/24/17at 08:33; Start 10/10/17 at 09:00; Stop 10/29/17 at 13:03; Status DC Multi-Ingredient Ointment (Analgesic [place]) 1 guanaco PRN QID PRN TP MUSCLE PAIN; Start 10/07/17 at 08:00; Status UNV Potassium Chloride (Klor-Con) 40 meq BIDWMEALS PO Last administered on at 07:40; Start 10/07/17 at 08:00; Stop 10/21/17 at 15:48; Status DC Theophylline (Theodur) 200 mg BID PO ; Start 10/07/17 at 09:00; Stop 10/07/17 at 09:00; Status DC Amantadine HCl (Symmetrel) 100 mg BID PO Last administered on 10/29/17at 08:37; Start 10/07/17 at 09:00; Stop 10/29/17 at 13:03; Status DC Buspirone HCl (Buspar) 5 mg QID PO Last administered on 10/12/17at 19:26; Start 10/07/17 at 09:00; Stop 10/12/17 at 19:48; Status DC Clonazepam (KlonoPIN) 1 mg TID PO Last administered on 10/29/17at 08:41; Start at 09:00; Stop 10/29/17 at 13:03; Status DC Diltiazem HCl (Cardizem 24hr Cd) 120 mg DAILY PO Last administered on 10/29/17at 08:38; Start 10/07/17 at 09:00; Stop 10/29/17 at 13:03; Status DC Divalproex Sodium (Depakote Sprinkles) 750 mg BID PO Last administered on at 10:18; Start 10/07/17 at 09:00; Stop 10/08/17 at 18:28; Status DC Furosemide (Lasix) 80 mg BID92 PO Last administered on 10/11/17at 13:49; Start 10/07/17 at 09:00; Stop 10/13/17 at 17:39; Status DC Non-Formulary Medication (Haloperidol Decanoate (Haldol Decanoate 100)) 450 mg [id number] IM ; Start 10/07/17 at 08:00; Status Cancel Non-Formulary Medication (Mag Hydrox/ Aluminum Hyd/ Simeth (Maalox Advanced Suspension)) 15 ml PRN AFTMEALHC PRN PO DYSPEPSIA; Start 10/07/17 at 08:00; Status UNV Non-Formulary Medication (Magnesium Hydroxide (Milk Of Magnesia)) 2,400 mg PRN QHS PRN PO CONSTIPATION; Start 10/07/17 at 08:00; Status UNV Magnesium Oxide (Magnesium Oxide) 400 mg BID PO Last administered on 10/29/17 08:37; Start 10/07/17 at 09:00; Stop 10/29/17 at 13:03; Status DC Metformin HCl (Glucophage) 500 mg DAILYWBKFT PO Last administered on 10/08/17at 10:19; Start 10/07/17 at 08:00; Stop 10/08/17 at 19:23; Status DC Metolazone (Zaroxolyn) 5 mg DAILY PO Last administered on 10/29/17at 08:38; Start 10/07/17 at 09:00; Stop 10/29/17 at 13:03; Status DC Mirtazapine (Remeron) 15 mg QHS PO Last administered on 10/28/17at 19:55; Start 10/07/17 at 21:00; Stop 10/29/17 at 13:03; Status DC Pioglitazone HCl (Actos) 15 mg DAILY PO Last administered on 10/29/17at 08:38; Start 10/07/17 at 09:00; Stop 10/29/17 at 13:03; Status DC Haloperidol Decanoate (Haldol Decanoate Im Extended Release) 450 mg Q24D IM ; Start 10/18/17 at 08:00; Stop 10/18/17 at 18:43; Status DC Theophylline (Theophylline Extended Release) 200 mg BID PO Last administered on 10/29/17at 08:37; Start 10/07/17 at 09:00; Stop 10/29/17 at 13:03; Status DC Lactobacillus Rhamnosus (Culturelle) 1 cap BID PO Last administered on at 08:37; Start 10/07/17 at 21:00; Stop 10/29/17 at 13:03; Status DC Clonazepam (KlonoPIN) 1 mg STK-MED ONCE .ROUTE ; Start 10/07/17 at 09:00; Stop 10/08/17 at 11:51; Status DC Clonazepam (KlonoPIN) 1 mg STK-MED ONCE .ROUTE ; Start 10/07/17 at 09:00; Stop 10/08/17 at 11:51; Status DC Clonazepam (KlonoPIN) 1 mg STK-MED ONCE .ROUTE ; Start 10/07/17 at 09:00; Stop 10/08/17 at 11:51; Status DC Diltiazem HCl (Cardizem 24hr Cd) 120 mg STK-MED ONCE PO ; Start 10/07/17 at 09: 00; Stop 10/08/17 at 11:51; Status DC Divalproex Sodium (Depakote Sprinkles) 750 mg STK-MED ONCE PO ; Start 10/07/17 at 09:00; Stop 10/08/17 at 11:51; Status DC Divalproex Sodium (Depakote Sprinkles) 750 mg STK-MED ONCE PO ; Start 10/07/17 at 09:00; Stop 10/08/17 at 11:51; Status DC Furosemide (Lasix) 80 mg STK-MED ONCE .ROUTE ; Start 10/07/17 at 09:00; Stop at 11:51; Status DC Furosemide (Lasix) 80 mg STK-MED ONCE .ROUTE ; Start 10/07/17 at 09:00; Stop at 11:51; Status DC Magnesium Oxide (Magnesium Oxide) 400 mg STK-MED ONCE .ROUTE ; Start 10/07/17 at 09:00; Stop 10/08/17 at 11:51; Status DC Metolazone (Zaroxolyn) 5 mg STK-MED ONCE .ROUTE ; Start 10/07/17 at 09:00; Stop 10/08/17 at 11:51; Status DC Mirtazapine (Remeron) 15 mg STK-MED ONCE .ROUTE ; Start 10/07/17 at 09:00; Stop 10/08/17 at 11:51; Status DC Clonazepam (KlonoPIN) 1 mg STK-MED ONCE .ROUTE ; Start 10/08/17 at 09:00; Stop 10/08/17 at 11:52; Status DC Diltiazem HCl (Cardizem 24hr Cd) 120 mg STK-MED ONCE PO ; Start 10/08/17 at 09: 00; Stop 10/08/17 at 11:52; Status DC Divalproex Sodium (Depakote Sprinkles) 750 mg STK-MED ONCE PO ; Start 10/08/17 at 09:00; Stop 10/08/17 at 11:52; Status DC Furosemide (Lasix) 80 mg STK-MED ONCE .ROUTE ; Start 10/08/17 at 09:00; Stop at 11:52; Status DC Magnesium Oxide (Magnesium Oxide) 400 mg STK-MED ONCE .ROUTE ; Start 10/08/17 at 09:00; Stop 10/08/17 at 11:52; Status DC Metolazone (Zaroxolyn) 5 mg STK-MED ONCE .ROUTE ; Start 10/08/17 at 09:00; Stop 10/08/17 at 11:52; Status DC Divalproex Sodium (Depakote Sprinkles) 1,000 mg BID PO Last administered on at 07:51; Start 10/08/17 at 21:00; Stop 10/11/17 at 09:40; Status DC Metformin HCl (Glucophage) 500 mg BIDWMEALS PO Last administered on 10/29/17at 08 :39; Start 10/09/17 at 08:00; Stop 10/29/17 at 13:03; Status DC Insulin Human Lispro (HumaLOG) 0-9 UNITS TIDWMEALS SQ Last administered on at 12:19; Start 10/09/17 at 08:00; Stop 10/29/17 at 13:03; Status DC Dextrose 12.5 gm PRN Q15MIN PRN IV SEE COMMENTS; Start 10/08/17 at 19:30; Stop 10/29/17 at 13:03; Status DC Insulin Glargine (Lantus) 8 units 1X ONCE SQ Last administered on 10/08/17at 22 :10; Start 10/08/17 at 22:00; Stop 10/08/17 at 22:01; Status DC Olanzapine (ZyPREXA ZYDIS) 2.5 mg PRN Q2HR PRN PO PSYCHOSIS Last administered on 10/27/17 12:05; Start 10/09/17 at 18:45; Stop 10/29/17 at 13:03; Status DC Valproic Acid (Depakene) 1,000 mg BID PO Last administered on 10/29/17 08:39; Start 10/11/17 at 09:30; Stop 10/29/17 at 13:03; Status DC Haloperidol Lactate (Haldol Oral) 5 mg DAILY PO Last administered on 10/15/17at 07:45; Start 10/12/17 at 09:00; Stop 10/15/17 at 18:51; Status DC Potassium Chloride (Klor-Con) 40 meq Q1HR PO Last administered on 10/12/17at 09: 19; Start 10/12/17 at 10:00; Stop 10/12/17 at 10:15; Status DC Potassium Chloride (KCl Oral Soln) 40 meq Q1HR PEG Last administered on at 12:29; Start 10/12/17 at 11:00; Stop 10/12/17 at 13:01; Status DC Divalproex Sodium (Depakote Sprinkles) 250 mg 1X ONCE PO Last administered on 10/12/17at 10:45; Start 10/12/17 at 10:45; Stop 10/12/17 at 10:46; Status DC Buspirone HCl (Buspar) 10 mg QID PO ; Start 10/12/17 at 21:00; Stop 10/12/17 at 21:00; Status DC Buspirone HCl (Buspar) 10 mg TID@0900,1300,1700 PO Last administered on at 17:15; Start 10/13/17 at 09:00; Stop 10/16/17 at 18:36; Status DC Haloperidol Lactate (Haldol Oral) 7.5 mg DAILY PO Last administered on 08:39; Start 10/16/17 at 09:00; Stop 10/29/17 at 13:03; Status DC Trazodone HCl (Desyrel) 50 mg PRN QHS PRN PO insomnia Last administered on at 19:19; Start 10/16/17 at 21:00; Stop 10/23/17 at 18:29; Status DC Buspirone HCl (Buspar) 10 mg BID@1300,1700 PO Last administered on 10/28/17at 17: 39; Start 10/17/17 at 13:00; Stop 10/29/17 at 13:03; Status DC Buspirone HCl (Buspar) 20 mg DAILY PO Last administered on 10/29/17at 08:39; Start 10/17/17 at 09:00; Stop 10/29/17 at 13:03; Status DC Haloperidol Decanoate (Haldol Decanoate Im Extended Release) 450 mg Q24D IM ; Start 10/22/17 at 09:00; Stop 10/22/17 at 16:52; Status DC Potassium Chloride (Klor-Con) 40 meq TID PO Last administered on 10/29/17at 08:38 ; Start 10/21/17 at 21:00; Stop 10/29/17 at 13:03; Status DC Furosemide (Lasix) 80 mg BID94 PO ; Start 10/21/17 at 16:00; Stop 10/21/17 at 16 :00; Status DC Furosemide (Lasix) 80 mg BID92 PO Last administered on 10/29/17at 08:38; Start at 16:00; Stop 10/29/17 at 13:03; Status DC Haloperidol Decanoate (Haldol Decanoate Im Extended Release) 450 mg Q24D IM ; Start 10/23/17 at 09:00; Stop 10/23/17 at 09:00; Status DC Haloperidol Decanoate (Haldol Decanoate Im Extended Release) 450 mg Q24D IM ; Start 10/22/18 at 21:00; Status Cancel Trazodone HCl (Desyrel) 25 mg TID@0900,1300,1700 PO Last administered on at 12:35; Start 10/23/17 at 09:00; Stop 10/24/17 at 15:32; Status DC Haloperidol Decanoate (Haldol Decanoate Im Extended Release) 450 mg Q24D ONCE IM Last administered on 10/22/17at 21:58; Start 10/22/17 at 22:00; Stop at 22:01; Status DC Trazodone HCl (Desyrel) 100 mg PRN QHS PRN PO insomnia Last administered on 10/25/17at 20:02; Start 10/23/17 at 18:30; Stop 10/27/17 at 16:01; Status DC Trazodone HCl (Desyrel) 37.5 mg TID@0900,1300,1700 PO Last administered on at 08:37; Start 10/24/17 at 17:00; Stop 10/29/17 at 13:03; Status DC Trazodone HCl (Desyrel) 200 mg PRN QHS PRN PO insomnia Last administered on 10/28/17at 19:57; Start 10/27/17 at 15:45; Stop 10/29/17 at 13:03; Status DC Active Scripts Active Reported Zyprexa Zydis (Olanzapine) 5 Mg Tab.rapdis 5 Mg PO PRN Q2HR PRN Buspirone Hcl 10 Mg Tablet 10 Mg PO BID@1300,1700 Valproic Acid (Valproate Sodium) 250 Mg/5 Ml Solution 1,000 Mg PO BID Novolog Flexpen (Insulin Aspart) 100 Unit/1 Ml Insuln.pen 0-9 Unit SQ TIDWMEALS <70 follow hypoglycemic protocol 70-150 0units if eating/ 0 if not eating 151-200 4 units if eating/ 0 units if not eating 201-250 5 units if eating/ 3 units if not eating 251-300 7 units if eating/ 4 units if not eating 301-350 9 units if eating/ 5 units if not eating > 351 Call Physician for futher orders Trazodone Hcl 100 Mg Tablet 200 Mg PO PRN QHS PRN Trazodone Hcl 50 Mg Tablet 37.5 Mg PO TID@0900,1300,1700 Culturelle (Lactobacillus Rhamnosus Gg) 1 Each Cap.sprink 1 Each PO BID Haloperidol 5 Mg Tablet 7.5 Mg PO DAILY Tylenol (Acetaminophen) 325 Mg Tablet 650 Mg PO PRN Q6HRS PRN Buspirone Hcl 10 Mg Tablet 20 Mg PO DAILY Theophylline Anhydrous 200 Mg Tab.er.12h 200 Mg PO BID Metolazone 5 Mg Tablet 5 Mg PO DAILY Metformin Hcl 500 Mg Tablet 500 Mg PO BIDWMEALS Cardizem Tablet (Diltiazem Hcl) 120 Mg Tablet 120 Mg PO DAILY Amantadine (Amantadine Hcl) 100 Mg Tablet 100 Mg PO BID Actos (Pioglitazone Hcl) 15 Mg Tablet 15 Mg PO DAILY Mirtazapine 15 Mg Tablet 15 Mg PO QHS Haldol Decanoate 100 (Haloperidol Decanoate) 100 Mg/1 Ml Ampul 450 Mg IM Q4WK Klor-Con M20 (Potassium Chloride) 20 Meq Tab.er.prt 40 Meq PO BIDWMEALS Analgesic [place] (Methyl Salicylate/Menthol) 28 Gm Oint...g. 1 Guanaco TP PRN QID PRN Magnesium Oxide 400 Mg Tablet 400 Mg PO BID Milk Of Magnesia (Magnesium Hydroxide) 2,400 Mg/10 Ml Oral.susp 2,400 Mg PO PRN QHS PRN Maalox Advanced Suspension (Mag Hydrox/Aluminum Hyd/Simeth) 355 Ml Oral.susp 15 Ml PO PRN AFTMEALHC PRN D3-50 (Cholecalciferol (Vitamin D3)) 50,000 Unit Capsule 50,000 Unit PO QTH Clonazepam 1 Mg Tablet 1 Mg PO TID Furosemide 40 Mg Tablet 80 Mg PO BID92 Hold for SBP less than 100. After held dose, reassess in 2 hours. If SBP is above threshold, administer dose as ordered. If SBP is below threshold, contact provider for additional instructions. I have reviewed the current psychotropics carefully including drug interactions. Risk benefit ratio favors no change other than as noted in my dictated progress note. Diagnosis: Problems: (1) Schizoaffective disorder, chronic condition with acute exacerbation (2) Impulse control disorder (3) Anxiety disorder (4) Schizoaffective disorder KALIN STARKS MD Oct 29, 2017 18:21
--- NOTE | 2017-10-29 21:22 | PN ---
DATE: 10/28/2017 PSYCHIATRIC PROGRESS NOTE This late entry date of service 10/28/2017 covers elements not covered in my initial note of 10/28/2017. SUBJECTIVE: Met with the patient in the evening. The patient slept 6-1/2 hours previous evening. She is less anxious, less on ____, resistive to a.m. medications. REVIEW OF SYSTEMS: Ambulation is impaired, in wheelchair. No CV, , pulmonary, eye, ENT system symptoms on review. MENTAL STATUS EXAM: Oriented to herself, situation, aware of the year, but not to month, date, knew she was in the hospital. Speech coherent, little pressured at times. Abstraction fair, computation is impaired, unable to do serial 7's. No active suicidal or homicidal ideation. No clear psychotic symptoms. LABORATORY DATA: Reviewed. IMPRESSION: Schizoaffective disorder, bipolar type, mixed with psychotic features, in partial remission; cognitive disorder, unspecified. Rest unchanged. PLAN: Continue psychotropics mentioned in my initial note including Depakote. Valproic acid level is 85 therapeutic. Maintain the Haldol Decanoate. Transition to senior care on 10/29/2017. MAN Mary STARKS MD DR: TRACIE/karli JOB#: [id number] / [id number]
--- NOTE | 2017-10-30 03:05 | DS ---
DATE OF DISCHARGE: 10/29/2017 This note covers elements not covered in my initial note 10/29/2017. REASON FOR ADMISSION: Please refer to the admission history for details. Briefly, the patient is a 62-year-old Afro-[place] female referred back to us from [facility] on account of an exacerbation of her schizoaffective disorder, bipolar type. She is scratching and hitting peers, yelling, paranoid, refusing medications. She had marked mood lability, had failed outpatient psychiatric interventions. SIGNIFICANT FINDINGS AND CLINICAL COURSE: Following admission, the patient was seen daily individually by myself from a psychiatric standpoint, medical followup per Dr. Puga/Dr. Reyes. The patient had marked mood lability, agitation, anger, aggression evident by the nursing staff. She is very anxious, frequently on the call light asking the nurses to come in for any and everything and most of the time for nothing. She was yelling at times. Adjustments were made in her psychotropics. She seemed to do better on a combination of BuSpar 20 mg 9:00 a.m., 10 mg b.i.d. Depakene 1000 mg b.i.d. with Valproic acid level therapeutic at 85, Klonopin 1 mg three times a day and I would prefer to taper this, but this will have to be done as an outpatient as some of her mood lability persisted despite adjustments and the rest of her psychotropics and I would like to see her mood stable before reducing the Klonopin. She is also on Remeron 15 mg at bedtime, Haldol decanoate 50 mg q. 28 days, Zyprexa p.r.n., Haldol liquid 7.5 mg daily, trazodone 200 mg p.o. at bedtime p.r.n. and 37.5 mg three times a day, hope to be held if sedated. Gradually mood appeared to improve. She was much less labile, still in her wheelchair, somewhat dismissive at times. Ambulation impaired. No CV, , pulmonary, eye, ENT system symptoms on review. MENTAL STATUS EXAM: Oriented to herself and situation. Speech coherent, pressured at times. Abstraction fair, computation impaired, language function intact, attention span short. Mood and affect, lability was improved. No suicidal or homicidal ideation at discharge. CONDITION AT DISCHARGE: Improved. FINAL DIAGNOSES: Schizoaffective disorder, bipolar type, mixed with psychotic features, in partial remission; anxiety disorder, unspecified; impulse control disorder, unspecified. DISCHARGE MEDICATIONS: Please refer to the MRAD. DISCHARGE INSTRUCTIONS: Outpatient psychiatric and medical followup at the longterm. Time for discharge day management greater than 30 minutes. KALIN STARKS MD DR: TRACIE/karli JOB#: [id number] / [id number]
--- NOTE | 2017-10-30 09:45 | PN ---
DATE: 10/29/2017 This late entry 10/29/2017 covers elements not covered in my initial note 10/29/2017. I met with the patient in the evening. DICTATION ENDS HERE KALIN STARKS MD DR: Momo JOB#: [id number] / [id number]
[2018-10-22] MEDS ORDERED: HALOPERIDOL DECANOATE IM ER 100 MG/ML VIAL. IM SCH (21:00)
== END 2017-10-29 12:30 | disposition home or self-care (01) | DRG 885 ==
LOC: ER 21:10 → GEROPSY 10-07 03:35
PROVIDERS: ADMIT Psychiatry & Neurology Psychiatry; ATTEND Psychiatry & Neurology Psychiatry
DX: F25.0 Schizoaffective disorder, bipolar type (principal); J96.11 Chronic respiratory failure with hypoxia; E11.22 Type 2 diabetes mellitus with diabetic chronic kidney disease; E11.65 Type 2 diabetes mellitus with hyperglycemia; I13.0 Hypertensive heart and chronic kidney disease with heart failure and stage 1 through stage 4 chronic kidney disease, or unspecified chronic kidney disease; Z68.41 Body mass index [BMI] 40.0-44.9, adult; N39.0 Urinary tract infection, site not specified; E66.2 Morbid (severe) obesity with alveolar hypoventilation; I50.9 Heart failure, unspecified; E78.5 Hyperlipidemia, unspecified; E87.6 Hypokalemia; F41.9 Anxiety disorder, unspecified; F63.9 Impulse disorder, unspecified; N18.9 Chronic kidney disease, unspecified; J44.9 Chronic obstructive pulmonary disease, unspecified; F03.90 Unspecified dementia, unspecified severity, without behavioral disturbance, psychotic disturbance, mood disturbance, and anxiety; E78.00 Pure hypercholesterolemia, unspecified; Z79.899 Other long term (current) drug therapy; Z91.14 Patient's other noncompliance with medication regimen; E83.42 Hypomagnesemia; Z79.4 Long term (current) use of insulin
CPT/HCPCS: 36415; 70450; 71045; 80048; 80053; 80061; 80076; 80164; 80307; 81001; 82140; 82306; 82553; 82607; 82947; 83036; 83540; 83550; 83735; 83880; 84132; 84436; 84443; 84480; 84484; 85025; 85610; 85730; 86593; 87040; 93005; 96360; 96372; J0696; J1200; J1631; J1815; J2060; J3486; 99285-25; G0479; J7030

== ENCOUNTER 2018-02-10 03:06 | Inpatient (IN) | payer MEDICARE, OTHER ==
[~2018-02-10] VITALS: Ht 154.9 cm; Wt 98.1 kg
[~2018-02-10 03:06] MED LIST changes: +AMAN100T PO; +BUSP10TA PO; +CLON0.5T11 PO; -CLON0.5T3 PO; -CLON1TAB3 PO; +CLON1TAB4 PO; +DILT120T4 PO; -DIVA125C PO; +DIVA125C2 PO; +HALO5TAB PO; +INSU100I17 SQ; -IPRA3AMP NEB; +IPRA3AMP29 NEB; +LACT1CAP19 PO; -METF10003 PO; +METF10007 PO; +METF500T16 PO; -METF850T2 PO; +METF850T8 PO; +METO5TAB4 PO; +OLAN5TAB9 PO; +PIOG15TA42 PO; +THEO200T9 PO; +TRAZ-85 PO; +TRAZ-86 PO; +VALP250S3 PO
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
[2018-02-10] MEDS ORDERED: MVI, ADULT NO.4 WITH VIT K 10 ML, FOLIC ACID SYRINGE for ER 1 MG, THIAMINE INJ 100 MG i... IV ONE ×4 (03:45)
[2018-02-10] MEDS ORDERED: diphenhydrAMINE 50 MG/ML VIAL IM ONE (04:00)
[2018-02-10] MEDS ORDERED: ZIPRASIDONE IM 20 MG VIAL. IM ONE (04:00)
[2018-02-10] MEDS ORDERED: LORazepam 2 MG/ML VIAL IM ONE (04:00)
[2018-02-10 04:30] LABS: BASO # 0.1 x10^3/uL (0.0-0.2); BASO % 1 % (0-3); EOS # 0.1 x10^3/uL (0.0-0.7); EOS % 1 % (0-3); HEMATOCRIT 39.3 % (36.0-47.0); HEMOGLOBIN 12.9 g/dL (12.0-15.5); LYMPH % 27 % (24-48); MEAN CORPUSCULAR HEMOGLOBIN 28 pg (25-35); MEAN CORPUSCULAR HGB CONC 33 g/dL (31-37); MEAN CORPUSCULAR VOLUME 87 fL (79-100); MONO # 0.6 x10^3/uL (0.0-1.1); MONO % 8 % (0-9); NEUT # 4.6 x10^3uL (1.8-7.7); NEUT % 63 % (31-73); PLATELET COUNT 243 x10^3/uL (140-400); RED BLOOD COUNT 4.55 x10^6/uL (3.50-5.40); RED CELL DISTRIBUTION WIDTH 16.4 % (11.5-14.5); WHITE BLOOD COUNT 7.3 x10^3/uL (4.0-11.0)
[2018-02-10 04:36] LABS: BILIRUBIN,URINE NEG (NEG); CLARITY,URINE CLEAR; COLOR,URINE YELLOW; GLUCOSE,URINE NEG (NEG); NITRITE,URINE NEG (NEG); UROBILINOGEN,URINE 0.2 mg/dL (0.2 mg/dL)
[2018-02-10 04:37] LABS: BACTERIA,URINE 0 /HPF (0-FEW); RBC,URINE 0 /HPF (0-2); SQUAMOUS EPITHELIAL CELL,UR OCC /LPF; WBC,URINE RARE /HPF (0-4)
[2018-02-10 04:55] LABS: CALCIUM 9.3 mg/dL (8.5-10.1); CREATININE 1.2 mg/dL (0.6-1.0); GFR 54.9; MAGNESIUM 1.7 mg/dL (1.8-2.4); POTASSIUM 3.2 mmol/L (3.5-5.1)
--- NOTE | 2018-02-10 04:55 | RAD ---
CT HEAD INDICATION: Mental status changes, confusion, cough, congestion COMPARISON: None Available. TECHNIQUE: 5 mm contiguous axial images were obtained from the skull base to the vertex . Exposure: One or more of the following individualized dose reduction techniques were utilized for this examination: 1. Automated exposure control 2. Adjustment of the mA and/or kV according to patient size 3. Use of iterative reconstruction technique FINDINGS: Moderate bilateral periventricular white matter hypodensities likely chronic small vessel ischemic disease. No evidence of acute intracranial hemorrhage. No extra-axial fluid collections. No mass effect or midline shift. Ventricular size is appropriate. Basal cisterns are patent. No fractures identified.Adam-white differentiation is preserved.Globes and orbits are within normal limits. Paranasal sinuses and mastoid air cells are clear. IMPRESSION: No acute intracranial findings. Electronically signed by: Koko Ray MD (02/10/2018 4:52 AM) [id number]
--- NOTE | 2018-02-10 05:06 | EKG ---
[address] [address] Test Date: 2018-02-10 Test Time: 05:01:52 Pat Name: PRIYA MCCABE Department: Room: Gender: F Machine Burrer: : 1955 Requested By: ANGEL MENDOZA Order Number: [id number] Reading MD: Fei Mascorro Measurements Intervals [place] Rate: 68 P: 50 AK: 170 QRS: -1 QRSD: 76 T: 63 QT: 448 QTc: 477 Interpretive Statements SINUS RHYTHM LEFTWARD AXIS T ABNORMALITY IN HIGH LATERAL LEADS PROLONGED QT ABNORMAL ECG Electronically Signed On 02-10-2018 11:31:35 CDT by Fei Mascorro
[2018-02-10] MEDS ORDERED: MAGNESIUM HYDROXIDE 2,400 MG/30 ML ORAL.SUSP. PO ONE (05:30)
[2018-02-10] MEDS ORDERED: POTASSIUM CHLORIDE 20 MEQ/15 ML ORAL LIQUID. PO ONE (05:30)
[2018-02-10] MEDS ORDERED: METHYL SALICYLATE/MENTHOL TOPICAL OINTMENT 29GM TUBE. TP PRN (06:15)
[2018-02-10] MEDS ORDERED: MAG HYDROX/AL HYDROX/SIMETH 30 ML ORAL.SUSP PO PRN (06:15)
[2018-02-10] MEDS ORDERED: IPRA3AMP29 NEB (06:20)
[2018-02-10 06:27] LABS: SEDIMENTATION RATE 47 (0-25)
[2018-02-10] MEDS ORDERED: DEXTROSE 50% 25 GM / 50ML DISP.SYRIN. IV PRN (06:30)
[2018-02-10 06:46] VITALS: BP 125/61
--- NOTE | 2018-02-10 07:53 | RAD ---
PORTABLE CHEST 1V Clinical indications: Mental status changes, confusion, cough, congestion COMPARISON: October 06, 2017. Findings: No acute lung infiltrate or pleural effusion or pulmonary edema or lung mass or pneumothorax is seen. The heart size, pulmonary vasculature, mediastinum and both abiola are unremarkable. Impression: No acute radiographic abnormality is seen. Electronically signed by: John Balbuena MD (02/10/2018 7:50 AM) [facility]
[2018-02-10] MEDS ORDERED: NON FORMULARY ITEM (Insulin Aspart (Novolog Flexpen) 0 UNIT) SQ SCH (08:00)
[2018-02-10 08:25] LABS: VAL ACID 55 mcg/mL (50-100)
[2018-02-10] MEDS: HALOPERIDOL 5 MG TABLET PO SCH (08:47)
[2018-02-10] MEDS: LACTOBACILLUS RHAMNOSUS GG 1 CAPSULE. PO SCH ×2 (08:48→20:57)
[2018-02-10] MEDS: clonazePAM 1 MG TABLET PO SCH ×3 (08:49→20:57)
[2018-02-10] MEDS: metFORMIN 500 MG TABLET PO SCH ×2 (08:49→17:00)
[2018-02-10] MEDS: traZODone 50 MG TABLET. PO SCH ×3 (08:49→17:00)
[2018-02-10] MEDS: POTASSIUM CHLORIDE 20 MEQ TABLET.ER. PO SCH ×2 (08:50→17:00)
[2018-02-10] MEDS: MAGNESIUM OXIDE 400 MG TABLET PO SCH ×2 (08:51→20:57)
[2018-02-10] MEDS: FUROSEMIDE 80 MG TABLET PO SCH ×2 (08:51→14:23)
[2018-02-10] MEDS: PIOGLITAZONE 15 MG TABLET. PO SCH (08:51)
[2018-02-10] MEDS: busPIRone 10 MG TABLET. PO SCH ×3 (08:52→17:00)
[2018-02-10] MEDS: VALPROIC ACID 250 MG CAPSULE. PO SCH ×3 (08:53→20:57)
[2018-02-10] MEDS ORDERED: traZODone 50 MG TABLET. ONE ×3 (09:00)
[2018-02-10] MEDS ORDERED: HALOPERIDOL DECANOATE IM SCH (09:00)
[2018-02-10] MEDS: IPRATRPIUM/ALBUTEROL 0.5/2.5MG 3 ML NEBU. NEB SCH (09:00)
[2018-02-10] MEDS: AMANTADINE HCL 100 MG CAPSULE PO SCH ×2 (09:03→20:57)
[2018-02-10] MEDS: metOLazone 5 MG TABLET PO SCH (09:04)
[2018-02-10] MEDS: INSULIN LISPRO 300 UNITS/3 ML INSULN.PEN. SQ SCH ×3 (09:09→17:00)
[2018-02-10 13:06] LABS: THYROID STIM HORMONE (TSH) 3.918 uIU/mL (0.358-3.740)
[2018-02-10 15:57] VITALS: BP 120/75
[2018-02-10 18:09] LABS: THYROXINE 9.4 ug/dL (4.5-12.0)
[2018-02-10] MEDS: MIRTAZAPINE 15 MG TABLET PO SCH (20:57)
--- NOTE | 2018-02-10 20:57 | PDOC ---
Exam Note: Napoleon Note: Please also refer to the separate dictated note~for this date of service dictated separately.~Patient seen individually. Discussed the patient with Nursing staff reviewed the chart.~Reviewed interim history and current functioning. Reviewed vital signs,~Labs/ Radiology~and current medications noted below. Continue current treatment with the changes noted in the dictated addendum note Assessment: Vital Signs: Vital Signs Date Time Temp Pulse Resp B/P (MAP) Pulse Ox O2 Delivery O2 Flow Rate FiO2 02/10/18 15:57 97.3 77 20 120/75 (90) 91 02/10/18 06:46 Room Air Labs: Laboratory Tests Test 02/10/18 04:17 02/10/18 09:02 02/10/18 11:25 02/10/18 16:22 White Blood Count 7.3 x10^3/uL (4.0-11.0) Red Blood Count 4.55 x10^6/uL (3.50-5.40) Hemoglobin 12.9 g/dL (12.0-15.5) Hematocrit 39.3 % (36.0-47.0) Mean Corpuscular Volume 87 fL (79-100) Mean Corpuscular Hemoglobin 28 pg (25-35) Mean Corpuscular Hemoglobin Concent 33 g/dL (31-37) Red Cell Distribution Width 16.4 % (11.5-14.5) H Platelet Count 243 x10^3/uL (140-400) Neutrophils (%) (Auto) 63 % (31-73) Lymphocytes (%) (Auto) 27 % (24-48) Monocytes (%) (Auto) 8 % (0-9) Eosinophils (%) (Auto) 1 % (0-3) Basophils (%) (Auto) 1 % (0-3) Neutrophils # (Auto) 4.6 x10^3uL (1.8-7.7) Lymphocytes # (Auto) 2.0 x10^3/uL (1.0-4.8) Monocytes # (Auto) 0.6 x10^3/uL (0.0-1.1) Eosinophils # (Auto) 0.1 x10^3/uL (0.0-0.7) Basophils # (Auto) 0.1 x10^3/uL (0.0-0.2) Erythrocyte Sedimentation Rate 47 (0-25) H Prothrombin Time 9.3 SEC (9.4-11.4) L Prothrombin Time INR 0.9 (0.9-1.1) PTT 25 SEC (23-33) Urine Collection Type Unknown Urine Color Yellow Urine Clarity Clear Urine pH 6.5 Urine Specific [place] 1.015 Urine Protein Neg (NEG-TRACE) Urine Glucose (UA) Neg mg/dL (NEG) Urine Ketones (Stick) Neg mg/dL (NEG) Urine Blood Neg (NEG) Urine Nitrite Neg (NEG) Urine Bilirubin Neg (NEG) Urine Urobilinogen Dipstick 0.2 mg/dL (0.2 mg/dL) Urine Leukocyte Esterase Neg (NEG) Urine RBC 0 /HPF (0-2) Urine WBC Rare /HPF (0-4) Urine Squamous Epithelial Cells Occ /LPF Urine Bacteria 0 /HPF (0-FEW) Sodium Level 138 mmol/L (136-145) Potassium Level 3.2 mmol/L (3.5-5.1) L Chloride Level 95 mmol/L (98-107) L Carbon Dioxide Level 42 mmol/L (21-32) H Anion Gap 1 (6-14) L Blood Urea Nitrogen 30 mg/dL (7-20) H Creatinine 1.2 mg/dL (0.6-1.0) H Estimated GFR (Cockcroft-Gault) 54.9 Glucose Level 212 mg/dL (70-99) H Calcium Level 9.3 mg/dL (8.5-10.1) Magnesium Level 1.7 mg/dL (1.8-2.4) L Iron Level 58 ug/dL (50-170) Total Iron Binding Capacity 477 ug/dL (250-450) H Iron Saturation 12 % (15-34) L Ammonia 15 mcmol/L (11-34) Creatine Kinase 89 U/L (26-192) Creatine Kinase MB (Mass) 1.4 ng/mL (0.0-3.6) Creatine Kinase MB Relative Index 1.6 % (0-4) Troponin I Quantitative < 0.017 ng/mL (0-0.055) FF-Loi-D-Type Natriuretic Peptide 147 pg/mL (0-124) H Triglycerides Level 227 mg/dL (0-150) H Cholesterol Level 260 mg/dL (0-200) H LDL Cholesterol, Calculated 162 mg/dL (0-100) H VLDL Cholesterol, Calculated 45 mg/dL (0-40) H Non-HDL Cholesterol Calculated 207 mg/dL (0-129) H HDL Cholesterol 53 mg/dL (40-60) Cholesterol/HDL Ratio 4.0 Vitamin B12 Level 414 pg/mL (247-911) 25-Hydroxy Vitamin D Total 34.2 ng/mL (30-100) Thyroid Stimulating Hormone (TSH) 3.918 uIU/mL (0.358-3.740) Thyroxine (T4) 9.4 ug/dL (4.5-12.0) Total Triiodothyronine (TT3) 116 ng/dL (71-180) Valproic Acid Level 55 mcg/mL (50-100) Valproic Acid Last Dose Date 02/09/18 Valproic Acid Last Dose Time 2100 Treponema pallidum Antibody Nonreactive (Nonreactive) Glucose (Fingerstick) 216 mg/dL (70-99) H 125 mg/dL (70-99) H 175 mg/dL (70-99) H Current Medications: Meds: Current Medications Lorazepam (Ativan) 2 mg 1X ONCE IM ; Start 02/10/18 at 04:00; Stop 02/10/18 at 04:01; Status DC Diphenhydramine HCl (Benadryl) 50 mg 1X ONCE IM ; Start 02/10/18 at 04:00; Stop 02/10/18 at 04:01; Status DC Ziprasidone (Geodon Im) 20 mg 1X ONCE IM ; Start 02/10/18 at 04:00; Stop at 04:01; Status DC Multivitamins/ Minerals 10 ml/ Folic Acid 1 mg/ Thiamine HCl 100 mg/Lactated Ringer's 1,011.1 ml @ 1,000 mls/ hr 1X ONCE IV ; Start 02/10/18 at 03:45; Stop 02/10/18 at 04:45; Status DC Magnesium Hydroxide (Milk Of Magnesia) 2,400 mg 1X ONCE PO ; Start 02/10/18 at 05:30; Stop 02/10/18 at 05:32; Status DC Potassium Chloride (KCl Oral Soln) 40 meq 1X ONCE PO ; Start 02/10/18 at 05:30 ; Stop 02/10/18 at 05:32; Status DC Acetaminophen (Tylenol) 650 mg PRN Q6HRS PRN PO PAIN / TEMP; Start 02/10/18 at 06:15 Multi-Ingredient Ointment (Analgesic Steele) 1 guanaco PRN QID PRN TP MUSCLE PAIN; Start 02/10/18 at 06:15 Al Hydroxide/Mg Hydroxide (Mylanta Plus Xs) 15 ml PRN AFTMEALHC PRN PO DYSPEPSIA; Start 02/10/18 at 06:15 Magnesium Hydroxide (Milk Of Magnesia) 2,400 mg PRN QHS PRN PO CONSTIPATION; Start 02/10/18 at 06:15 Influenza Virus Vaccine (Afluria Trivalent [id number] Syringe) 0.5 ml ONCE ONCE VAX IM Last administered on 02/10/18at 14:21; Start 02/10/18 at 09:00; Stop at 09:01; Status DC Vitamin D (Vitamin D3) 50,000 unit QTH PO ; Start 02/13/18 at 16:00 Albuterol/ Ipratropium (Duoneb) 3 ml DAILY NEB ; Start 02/10/18 at 09:00 Lactobacillus Rhamnosus (Culturelle) 1 cap BID PO Last administered on at 08:48; Start 02/10/18 at 09:00 Potassium Chloride (Klor-Con) 40 meq BIDWMEALS PO Last administered on at 17:00; Start 02/10/18 at 08:00 Amantadine HCl (Symmetrel) 100 mg BID PO Last administered on 02/10/18at 09:03; Start 02/10/18 at 09:00 Buspirone HCl (Buspar) 10 mg 1300,1700 PO Last administered on 02/10/18at 17:00 ; Start 02/10/18 at 13:00 Buspirone HCl (Buspar) 20 mg DAILY PO Last administered on 02/10/18at 08:52; Start 02/10/18 at 09:00 Clonazepam (KlonoPIN) 1 mg TID PO Last administered on 02/10/18at 14:23; Start 02/10/18 at 09:00 Diltiazem HCl (Cardizem 24hr Cd) 120 mg DAILY PO Last administered on at 08:52; Start 02/10/18 at 09:00 Furosemide (Lasix) 80 mg BID92 PO Last administered on 02/10/18at 14:23; Start 02/10/18 at 09:00 Haloperidol (Haldol) 7.5 mg DAILY PO Last administered on 02/10/18at 08:47; Start 02/10/18 at 09:00 Non-Formulary Medication (Haloperidol Decanoate (Haldol Decanoate 100)) 450 mg Q4WK IM ; Start 02/10/18 at 09:00; Stop 02/10/18 at 16:12; Status DC Non-Formulary Medication (Insulin Aspart (Novolog Flexpen)) see protocol TIDWMEALS SQ ; Start 02/10/18 at 08:00; Status UNV Magnesium Oxide (Magnesium Oxide) 400 mg BID PO Last administered on 02/10/18at 08:51; Start 02/10/18 at 09:00 Metformin HCl (Glucophage) 500 mg BIDWMEALS PO Last administered on 02/10/18at 17:00; Start 02/10/18 at 08:00 Metolazone (Zaroxolyn) 5 mg DAILY PO Last administered on 02/10/18at 09:04; Start 02/10/18 at 09:00 Mirtazapine (Remeron) 15 mg QHS PO ; Start 02/10/18 at 21:00 Pioglitazone HCl (Actos) 15 mg DAILY PO Last administered on 02/10/18at 08:51; Start 02/10/18 at 09:00 Trazodone HCl (Desyrel) 25 mg TID@0900,1300,1700 PO Last administered on at 17:00; Start 02/10/18 at 09:00 Valproic Acid (Depakene) 750 mg TID PO Last administered on 02/10/18at 14:23; Start 02/10/18 at 09:00 Insulin Human Lispro (HumaLOG) 0-9 UNITS TIDWMEALS SQ Last administered on 02/10at 17:00; Start 02/10/18 at 08:00 Dextrose 12.5 gm PRN Q15MIN PRN IV SEE COMMENTS; Start 02/10/18 at 06:30 Olanzapine (ZyPREXA ZYDIS) 5 mg PRN Q2HR PRN PO PSYCHOSIS; Start 02/10/18 at 06 :45 Haloperidol Decanoate (Haldol Decanoate Im Extended Release) 450 mg Q4WK IM ; Start 03/10/18 at 09:00 Active Scripts Active Reported Duoneb 0.5-3(2.5) Mg/3 Ml (Albuterol/Ipratropium) 3 Ml Ampul.neb 3 Ml NEB DAILY Zyprexa Zydis (Olanzapine) 5 Mg Tab.rapdis 5 Mg PO PRN Q2HR PRN Buspirone Hcl 10 Mg Tablet 10 Mg PO BID@1300,1700 Valproic Acid (Valproate Sodium) 250 Mg/5 Ml Solution 750 Mg PO TID Novolog Flexpen (Insulin Aspart) 100 Unit/1 Ml Insuln.pen 0-9 Unit SQ TIDWMEALS <70 follow hypoglycemic protocol 70-150 0units if eating/ 0 if not eating 151-200 4 units if eating/ 0 units if not eating 201-250 5 units if eating/ 3 units if not eating 251-300 7 units if eating/ 4 units if not eating 301-350 9 units if eating/ 5 units if not eating > 351 Call Physician for futher orders Trazodone Hcl 100 Mg Tablet 200 Mg PO PRN QHS PRN Trazodone Hcl 50 Mg Tablet 25 Mg PO TID@0900,1300,1700 Culturelle (Lactobacillus Rhamnosus Gg) 1 Each Cap.sprink 1 Each PO BID Haloperidol 5 Mg Tablet 7.5 Mg PO DAILY Tylenol (Acetaminophen) 325 Mg Tablet 650 Mg PO PRN Q6HRS PRN Buspirone Hcl 10 Mg Tablet 20 Mg PO DAILY Theophylline Anhydrous 200 Mg Tab.er.12h 200 Mg PO BID Metolazone 5 Mg Tablet 5 Mg PO DAILY Metformin Hcl 500 Mg Tablet 500 Mg PO BIDWMEALS Cardizem Tablet (Diltiazem Hcl) 120 Mg Tablet 120 Mg PO DAILY Amantadine (Amantadine Hcl) 100 Mg Tablet 100 Mg PO BID Actos (Pioglitazone Hcl) 15 Mg Tablet 15 Mg PO DAILY Mirtazapine 15 Mg Tablet 15 Mg PO QHS Haldol Decanoate 100 (Haloperidol Decanoate) 100 Mg/1 Ml Ampul 450 Mg IM Q4WK Klor-Con M20 (Potassium Chloride) 20 Meq Tab.er.prt 40 Meq PO BIDWMEALS Analgesic Steele (Methyl Salicylate/Menthol) 28 Gm Oint...g. 1 Guanaco TP PRN QID PRN Magnesium Oxide 400 Mg Tablet 400 Mg PO BID Milk Of Magnesia (Magnesium Hydroxide) 2,400 Mg/10 Ml Oral.susp 2,400 Mg PO PRN QHS PRN Maalox Advanced Suspension (Mag Hydrox/Aluminum Hyd/Simeth) 355 Ml Oral.susp 15 Ml PO PRN AFTMEALHC PRN D3-50 (Cholecalciferol (Vitamin D3)) 50,000 Unit Capsule 50,000 Unit PO QTH Clonazepam 1 Mg Tablet 1 Mg PO TID Furosemide 40 Mg Tablet 80 Mg PO [id number] Hold for SBP less than 100. After held dose, reassess in 2 hours. If SBP is above threshold, administer dose as ordered. If SBP is below threshold, contact provider for additional instructions. I have reviewed the current psychotropics carefully including drug interactions. Risk benefit ratio favors no change other than as noted in my dictated progress note. Diagnosis: Problems: (1) Depression (2) Schizoaffective disorder (3) Anxiety disorder (4) Impulse control disorder (5) Schizoaffective disorder, chronic condition with acute exacerbation KALIN STARKS MD Feb 10, 2018 20:57
[2018-02-10 21:00] VITALS: BP 120/75
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
[2018-02-11 04:13] LABS: HEMOGLOBIN A1C 9.6 % (4.8-5.6)
[2018-02-11 06:07] VITALS: BP 132/71
[2018-02-11 07:20] LABS: BASO # 0.1 x10^3/uL (0.0-0.2); BASO % 1 % (0-3); EOS # 0.1 x10^3/uL (0.0-0.7); EOS % 1 % (0-3); HEMATOCRIT 40.3 % (36.0-47.0); HEMOGLOBIN 12.8 g/dL (12.0-15.5); LYMPH # 2.7 x10^3/uL (1.0-4.8); LYMPH % 35 % (24-48); MEAN CORPUSCULAR HEMOGLOBIN 28 pg (25-35); MEAN CORPUSCULAR HGB CONC 32 g/dL (31-37); MEAN CORPUSCULAR VOLUME 87 fL (79-100); MONO # 0.5 x10^3/uL (0.0-1.1); MONO % 6 % (0-9); NEUT # 4.4 x10^3uL (1.8-7.7); NEUT % 57 % (31-73); PLATELET COUNT 254 x10^3/uL (140-400); RED BLOOD COUNT 4.64 x10^6/uL (3.50-5.40); RED CELL DISTRIBUTION WIDTH 16.7 % (11.5-14.5); WHITE BLOOD COUNT 7.8 x10^3/uL (4.0-11.0)
[2018-02-11 07:26] LABS: CALCIUM 9.7 mg/dL (8.5-10.1); CREATININE 1.2 mg/dL (0.6-1.0); GFR 54.9; POTASSIUM 4.1 mmol/L (3.5-5.1)
[2018-02-11] MEDS: VALPROIC ACID 250 MG CAPSULE. PO SCH ×4 (08:20→21:04)
[2018-02-11] MEDS: HALOPERIDOL 5 MG TABLET PO SCH (08:20)
[2018-02-11] MEDS: LACTOBACILLUS RHAMNOSUS GG 1 CAPSULE. PO SCH ×3 (08:20→21:03)
[2018-02-11] MEDS: PIOGLITAZONE 15 MG TABLET. PO SCH (08:21)
[2018-02-11] MEDS: traZODone 50 MG TABLET. PO SCH ×3 (08:21→17:37)
[2018-02-11] MEDS: metFORMIN 500 MG TABLET PO SCH ×2 (08:21→17:36)
[2018-02-11] MEDS: POTASSIUM CHLORIDE 20 MEQ TABLET.ER. PO SCH ×2 (08:21→17:36)
[2018-02-11] MEDS: AMANTADINE HCL 100 MG CAPSULE PO SCH ×3 (08:21→21:03)
[2018-02-11] MEDS: metOLazone 5 MG TABLET PO SCH (08:22)
[2018-02-11] MEDS: MAGNESIUM OXIDE 400 MG TABLET PO SCH ×3 (08:22→21:03)
[2018-02-11] MEDS: FUROSEMIDE 80 MG TABLET PO SCH ×2 (08:22→15:01)
[2018-02-11] MEDS: clonazePAM 1 MG TABLET PO SCH ×4 (08:24→21:03)
[2018-02-11] MEDS: busPIRone 10 MG TABLET. PO SCH ×3 (08:31→17:36)
[2018-02-11] MEDS: INSULIN LISPRO 300 UNITS/3 ML INSULN.PEN. SQ SCH ×3 (08:32→17:38)
[2018-02-11] MEDS: IPRATRPIUM/ALBUTEROL 0.5/2.5MG 3 ML NEBU. NEB SCH (09:00)
[2018-02-11] MEDS ORDERED: traZODone 50 MG TABLET. ONE (09:00)
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
[2018-02-11 15:56] VITALS: BP 130/63
--- NOTE | 2018-02-11 20:56 | PDOC ---
Exam Note: [place] Note: Please also refer to the separate dictated note~for this date of service dictated separately.~Patient seen individually. Discussed the patient with Nursing staff reviewed the chart.~Reviewed interim history and current functioning. Reviewed vital signs,~Labs/ Radiology~and current medications noted below. Continue current treatment with the changes noted in the dictated addendum note Assessment: Vital Signs: Vital Signs Date Time Temp Pulse Resp B/P (MAP) Pulse Ox O2 Delivery O2 Flow Rate FiO2 02/11/18 15:56 98.4 80 20 130/63 (85) 95 02/11/18 09:38 Room Air I&O Intake and Output 02/11/18 07:00 Intake Total 720 ml Balance 720 ml Intake Oral 720 ml # Voids 1 Labs: Laboratory Tests Test 02/11/18 06:46 02/11/18 07:33 02/11/18 11:36 02/11/18 16:39 White Blood Count 7.8 x10^3/uL (4.0-11.0) Red Blood Count 4.64 x10^6/uL (3.50-5.40) Hemoglobin 12.8 g/dL (12.0-15.5) Hematocrit 40.3 % (36.0-47.0) Mean Corpuscular Volume 87 fL (79-100) Mean Corpuscular Hemoglobin 28 pg (25-35) Mean Corpuscular Hemoglobin Concent 32 g/dL (31-37) Red Cell Distribution Width 16.7 % (11.5-14.5) H Platelet Count 254 x10^3/uL (140-400) Neutrophils (%) (Auto) 57 % (31-73) Lymphocytes (%) (Auto) 35 % (24-48) Monocytes (%) (Auto) 6 % (0-9) Eosinophils (%) (Auto) 1 % (0-3) Basophils (%) (Auto) 1 % (0-3) Neutrophils # (Auto) 4.4 x10^3uL (1.8-7.7) Lymphocytes # (Auto) 2.7 x10^3/uL (1.0-4.8) Monocytes # (Auto) 0.5 x10^3/uL (0.0-1.1) Eosinophils # (Auto) 0.1 x10^3/uL (0.0-0.7) Basophils # (Auto) 0.1 x10^3/uL (0.0-0.2) Sodium Level 137 mmol/L (136-145) Potassium Level 4.1 mmol/L (3.5-5.1) Chloride Level 96 mmol/L (98-107) L Carbon Dioxide Level 41 mmol/L (21-32) H Anion Gap 0 (6-14) L Blood Urea Nitrogen 33 mg/dL (7-20) H Creatinine 1.2 mg/dL (0.6-1.0) H Estimated GFR (Cockcroft-Gault) 54.9 Glucose Level 163 mg/dL (70-99) H Calcium Level 9.7 mg/dL (8.5-10.1) Glucose (Fingerstick) 164 mg/dL (70-99) H 240 mg/dL (70-99) H 186 mg/dL (70-99) H Test 02/11/18 19:21 Glucose (Fingerstick) 175 mg/dL (70-99) H Current Medications: Meds: Current Medications Lorazepam (Ativan) 2 mg 1X ONCE IM ; Start 02/10/18 at 04:00; Stop 02/10/18 at 04:01; Status DC Diphenhydramine HCl (Benadryl) 50 mg 1X ONCE IM ; Start 02/10/18 at 04:00; Stop 02/10/18 at 04:01; Status DC Ziprasidone (Geodon Im) 20 mg 1X ONCE IM ; Start 02/10/18 at 04:00; Stop at 04:01; Status DC Multivitamins/ Minerals 10 ml/ Folic Acid 1 mg/ Thiamine HCl 100 mg/Lactated Ringer's 1,011.1 ml @ 1,000 mls/ hr 1X ONCE IV ; Start 02/10/18 at 03:45; Stop 02/10/18 at 04:45; Status DC Magnesium Hydroxide (Milk Of Magnesia) 2,400 mg 1X ONCE PO ; Start 02/10/18 at 05:30; Stop 02/10/18 at 05:32; Status DC Potassium Chloride (KCl Oral Soln) 40 meq 1X ONCE PO ; Start 02/10/18 at 05:30 ; Stop 02/10/18 at 05:32; Status DC Acetaminophen (Tylenol) 650 mg PRN Q6HRS PRN PO PAIN / TEMP; Start 02/10/18 at 06:15 Multi-Ingredient Ointment (Analgesic [place]) 1 guanaco PRN QID PRN TP MUSCLE PAIN; Start 02/10/18 at 06:15 Al Hydroxide/Mg Hydroxide (Mylanta Plus Xs) 15 ml PRN AFTMEALHC PRN PO DYSPEPSIA; Start 02/10/18 at 06:15 Magnesium Hydroxide (Milk Of Magnesia) 2,400 mg PRN QHS PRN PO CONSTIPATION; Start 02/10/18 at 06:15 Influenza Virus Vaccine (Afluria Trivalent 3257-1508 Syringe) 0.5 ml ONCE ONCE VAX IM Last administered on 02/10/18at 14:21; Start 02/10/18 at 09:00; Stop at 09:01; Status DC Vitamin D (Vitamin D3) 50,000 unit QTH PO ; Start 02/13/18 at 16:00 Albuterol/ Ipratropium (Duoneb) 3 ml DAILY NEB Last administered on 02/11/18at 09:00; Start 02/10/18 at 09:00 Lactobacillus Rhamnosus (Culturelle) 1 cap BID PO Last administered on at 08:20; Start 02/10/18 at 09:00 Potassium Chloride (Klor-Con) 40 meq BIDWMEALS PO Last administered on at 17:36; Start 02/10/18 at 08:00 Amantadine HCl (Symmetrel) 100 mg BID PO Last administered on 02/11/18at 08:21; Start 02/10/18 at 09:00 Buspirone HCl (Buspar) 10 mg 1300,1700 PO Last administered on 02/11/18at 17:36 ; Start 02/10/18 at 13:00 Buspirone HCl (Buspar) 20 mg DAILY PO Last administered on 02/11/18at 08:31; Start 02/10/18 at 09:00 Clonazepam (KlonoPIN) 1 mg TID PO Last administered on 02/11/18at 15:01; Start 02/10/18 at 09:00 Diltiazem HCl (Cardizem 24hr Cd) 120 mg DAILY PO Last administered on at 08:21; Start 02/10/18 at 09:00 Furosemide (Lasix) 80 mg BID92 PO Last administered on 02/11/18at 15:01; Start 02/10/18 at 09:00 Haloperidol (Haldol) 7.5 mg DAILY PO Last administered on 02/11/18at 08:20; Start 02/10/18 at 09:00 Non-Formulary Medication (Haloperidol Decanoate (Haldol Decanoate 100)) 450 mg Q4WK IM ; Start 02/10/18 at 09:00; Stop 02/10/18 at 16:12; Status DC Non-Formulary Medication (Insulin Aspart (Novolog Flexpen)) see protocol TIDWMEALS SQ ; Start 02/10/18 at 08:00; Status UNV Magnesium Oxide (Magnesium Oxide) 400 mg BID PO Last administered on 02/11/18at 08:22; Start 02/10/18 at 09:00 Metformin HCl (Glucophage) 500 mg BIDWMEALS PO Last administered on 02/11/18at 17:36; Start 02/10/18 at 08:00 Metolazone (Zaroxolyn) 5 mg DAILY PO Last administered on 02/11/18at 08:22; Start 02/10/18 at 09:00 Mirtazapine (Remeron) 15 mg QHS PO Last administered on 02/10/18at 20:57; Start 02/10/18 at 21:00 Pioglitazone HCl (Actos) 15 mg DAILY PO Last administered on 02/11/18at 08:21; Start 02/10/18 at 09:00 Trazodone HCl (Desyrel) 25 mg TID@0900,1300,1700 PO Last administered on at 17:37; Start 02/10/18 at 09:00 Valproic Acid (Depakene) 750 mg TID PO Last administered on 02/11/18at 15:02; Start 02/10/18 at 09:00 Insulin Human Lispro (HumaLOG) 0-9 UNITS TIDWMEALS SQ Last administered on 02/11at 17:38; Start 02/10/18 at 08:00 Dextrose 12.5 gm PRN Q15MIN PRN IV SEE COMMENTS; Start 02/10/18 at 06:30 Olanzapine (ZyPREXA ZYDIS) 5 mg PRN Q2HR PRN PO PSYCHOSIS; Start 02/10/18 at 06 :45 Haloperidol Decanoate (Haldol Decanoate Im Extended Release) 450 mg Q4WK IM ; Start 03/10/18 at 09:00 Trazodone HCl (Desyrel) 25 mg STK-MED ONCE .ROUTE ; Start 02/10/18 at 09:00; Stop 02/11/18 at 10:03; Status DC Trazodone HCl (Desyrel) 25 mg STK-MED ONCE .ROUTE ; Start 02/10/18 at 09:00; Stop 02/11/18 at 10:03; Status DC Trazodone HCl (Desyrel) 25 mg STK-MED ONCE .ROUTE ; Start 02/10/18 at 09:00; Stop 02/11/18 at 10:03; Status DC Trazodone HCl (Desyrel) 25 mg STK-MED ONCE .ROUTE ; Start 02/11/18 at 09:00; Stop 02/11/18 at 10:04; Status DC Clozapine (Clozaril) 25 mg HS PO ; Start 02/11/18 at 21:00 Active Scripts Active Reported Duoneb 0.5-3(2.5) Mg/3 Ml (Albuterol/Ipratropium) 3 Ml Ampul.neb 3 Ml NEB DAILY Zyprexa Zydis (Olanzapine) 5 Mg Tab.rapdis 5 Mg PO PRN Q2HR PRN Buspirone Hcl 10 Mg Tablet 10 Mg PO BID@1300,1700 Valproic Acid (Valproate Sodium) 250 Mg/5 Ml Solution 750 Mg PO TID Novolog Flexpen (Insulin Aspart) 100 Unit/1 Ml Insuln.pen 0-9 Unit SQ TIDWMEALS <70 follow hypoglycemic protocol 70-150 0units if eating/ 0 if not eating 151-200 4 units if eating/ 0 units if not eating 201-250 5 units if eating/ 3 units if not eating 251-300 7 units if eating/ 4 units if not eating 301-350 9 units if eating/ 5 units if not eating > 351 Call Physician for futher orders Trazodone Hcl 100 Mg Tablet 200 Mg PO PRN QHS PRN Trazodone Hcl 50 Mg Tablet 25 Mg PO TID@0900,1300,1700 Culturelle (Lactobacillus Rhamnosus Gg) 1 Each Cap.sprink 1 Each PO BID Haloperidol 5 Mg Tablet 7.5 Mg PO DAILY Tylenol (Acetaminophen) 325 Mg Tablet 650 Mg PO PRN Q6HRS PRN Buspirone Hcl 10 Mg Tablet 20 Mg PO DAILY Theophylline Anhydrous 200 Mg Tab.er.12h 200 Mg PO BID Metolazone 5 Mg Tablet 5 Mg PO DAILY Metformin Hcl 500 Mg Tablet 500 Mg PO BIDWMEALS Cardizem Tablet (Diltiazem Hcl) 120 Mg Tablet 120 Mg PO DAILY Amantadine (Amantadine Hcl) 100 Mg Tablet 100 Mg PO BID Actos (Pioglitazone Hcl) 15 Mg Tablet 15 Mg PO DAILY Mirtazapine 15 Mg Tablet 15 Mg PO QHS Haldol Decanoate 100 (Haloperidol Decanoate) 100 Mg/1 Ml Ampul 450 Mg IM Q4WK Klor-Con M20 (Potassium Chloride) 20 Meq Tab.er.prt 40 Meq PO BIDWMEALS Analgesic [place] (Methyl Salicylate/Menthol) 28 Gm Oint...g. 1 Guanaco TP PRN QID PRN Magnesium Oxide 400 Mg Tablet 400 Mg PO BID Milk Of Magnesia (Magnesium Hydroxide) 2,400 Mg/10 Ml Oral.susp 2,400 Mg PO PRN QHS PRN Maalox Advanced Suspension (Mag Hydrox/Aluminum Hyd/Simeth) 355 Ml Oral.susp 15 Ml PO PRN AFTMEALHC PRN D3-50 (Cholecalciferol (Vitamin D3)) 50,000 Unit Capsule 50,000 Unit PO QTH Clonazepam 1 Mg Tablet 1 Mg PO TID Furosemide 40 Mg Tablet 80 Mg PO [id number] Hold for SBP less than 100. After held dose, reassess in 2 hours. If SBP is above threshold, administer dose as ordered. If SBP is below threshold, contact provider for additional instructions. I have reviewed the current psychotropics carefully including drug interactions. Risk benefit ratio favors no change other than as noted in my dictated progress note. Diagnosis: Problems: (1) Depression (2) Schizoaffective disorder (3) Anxiety disorder (4) Impulse control disorder (5) Schizoaffective disorder, chronic condition with acute exacerbation KALIN STARKS MD Feb 11, 2018 20:56
[2018-02-11 21:00] VITALS: BP 130/63
[2018-02-11] MEDS: cloZAPine 25 MG TABLET PO SCH ×2 (21:00→21:04)
[2018-02-11] MEDS: MIRTAZAPINE 15 MG TABLET PO SCH ×2 (21:00→21:03)
[2018-02-12 06:01] VITALS: BP 126/76
[2018-02-12] MEDS: busPIRone 10 MG TABLET. PO SCH ×3 (07:54→16:05)
[2018-02-12] MEDS: metFORMIN 500 MG TABLET PO SCH ×2 (07:54→16:06)
[2018-02-12] MEDS: PIOGLITAZONE 15 MG TABLET. PO SCH (07:54)
[2018-02-12] MEDS: HALOPERIDOL 5 MG TABLET PO SCH (07:54)
[2018-02-12] MEDS: AMANTADINE HCL 100 MG CAPSULE PO SCH ×2 (07:54→19:22)
[2018-02-12] MEDS: LACTOBACILLUS RHAMNOSUS GG 1 CAPSULE. PO SCH ×2 (07:54→19:22)
[2018-02-12] MEDS: VALPROIC ACID 250 MG CAPSULE. PO SCH ×3 (07:55→19:23)
[2018-02-12] MEDS: POTASSIUM CHLORIDE 20 MEQ TABLET.ER. PO SCH ×2 (07:55→16:05)
[2018-02-12] MEDS: FUROSEMIDE 80 MG TABLET PO SCH ×2 (07:55→13:40)
[2018-02-12] MEDS: traZODone 50 MG TABLET. PO SCH ×3 (07:56→16:06)
[2018-02-12] MEDS: MAGNESIUM OXIDE 400 MG TABLET PO SCH ×2 (07:56→19:22)
[2018-02-12] MEDS: metOLazone 5 MG TABLET PO SCH (07:56)
[2018-02-12] MEDS: clonazePAM 1 MG TABLET PO SCH ×3 (07:57→19:23)
[2018-02-12] MEDS: INSULIN LISPRO 300 UNITS/3 ML INSULN.PEN. SQ SCH ×3 (08:43→17:00)
[2018-02-12] MEDS: IPRATRPIUM/ALBUTEROL 0.5/2.5MG 3 ML NEBU. NEB SCH (09:27)
[2018-02-12 17:01] VITALS: BP 127/65
[2018-02-12] MEDS: MIRTAZAPINE 15 MG TABLET PO SCH (19:22)
[2018-02-12] MEDS: cloZAPine 25 MG TABLET PO SCH (19:22)
--- NOTE | 2018-02-12 21:17 | PDOC ---
Exam Note: Napoleon Note: Please also refer to the separate dictated note~for this date of service dictated separately.~Patient seen individually. Discussed the patient with Nursing staff reviewed the chart.~Reviewed interim history and current functioning. Reviewed vital signs,~Labs/ Radiology~and current medications noted below. Continue current treatment with the changes noted in the dictated addendum note Assessment: Vital Signs: Vital Signs Date Time Temp Pulse Resp B/P (MAP) Pulse Ox O2 Delivery O2 Flow Rate FiO2 02/12/18 17:01 98.0 77 20 127/65 (85) 95 02/11/18 09:38 Room Air I&O Intake and Output 02/12/18 07:00 Intake Total 1678 ml Balance 1678 ml Intake Oral 1678 ml # Voids 1 Labs: Laboratory Tests Test 02/12/18 08:27 02/12/18 11:36 02/12/18 16:40 Glucose (Fingerstick) 139 mg/dL (70-99) H 140 mg/dL (70-99) H 145 mg/dL (70-99) H Current Medications: Meds: Current Medications Lorazepam (Ativan) 2 mg 1X ONCE IM ; Start 02/10/18 at 04:00; Stop 02/10/18 at 04:01; Status DC Diphenhydramine HCl (Benadryl) 50 mg 1X ONCE IM ; Start 02/10/18 at 04:00; Stop 02/10/18 at 04:01; Status DC Ziprasidone (Geodon Im) 20 mg 1X ONCE IM ; Start 02/10/18 at 04:00; Stop at 04:01; Status DC Multivitamins/ Minerals 10 ml/ Folic Acid 1 mg/ Thiamine HCl 100 mg/Lactated Ringer's 1,011.1 ml @ 1,000 mls/ hr 1X ONCE IV ; Start 02/10/18 at 03:45; Stop 02/10/18 at 04:45; Status DC Magnesium Hydroxide (Milk Of Magnesia) 2,400 mg 1X ONCE PO ; Start 02/10/18 at 05:30; Stop 02/10/18 at 05:32; Status DC Potassium Chloride (KCl Oral Soln) 40 meq 1X ONCE PO ; Start 02/10/18 at 05:30 ; Stop 02/10/18 at 05:32; Status DC Acetaminophen (Tylenol) 650 mg PRN Q6HRS PRN PO PAIN / TEMP; Start 02/10/18 at 06:15 Multi-Ingredient Ointment (Analgesic [place]) 1 guanaco PRN QID PRN TP MUSCLE PAIN; Start 02/10/18 at 06:15 Al Hydroxide/Mg Hydroxide (Mylanta Plus Xs) 15 ml PRN AFTMEALHC PRN PO DYSPEPSIA; Start 02/10/18 at 06:15 Magnesium Hydroxide (Milk Of Magnesia) 2,400 mg PRN QHS PRN PO CONSTIPATION; Start 02/10/18 at 06:15 Influenza Virus Vaccine (Afluria Trivalent [id number] Syringe) 0.5 ml ONCE ONCE VAX IM Last administered on 02/10/18at 14:21; Start 02/10/18 at 09:00; Stop at 09:01; Status DC Vitamin D (Vitamin D3) 50,000 unit QTH PO ; Start 02/13/18 at 16:00 Albuterol/ Ipratropium (Duoneb) 3 ml DAILY NEB Last administered on 02/12/18at 09:27; Start 02/10/18 at 09:00 Lactobacillus Rhamnosus (Culturelle) 1 cap BID PO Last administered on 19:22; Start 02/10/18 at 09:00 Potassium Chloride (Klor-Con) 40 meq BIDWMEALS PO Last administered on at 16:05; Start 02/10/18 at 08:00 Amantadine HCl (Symmetrel) 100 mg BID PO Last administered on 02/12/18 19:22; Start 02/10/18 at 09:00 Buspirone HCl (Buspar) 10 mg 1300,1700 PO Last administered on 02/12/18at 16:05 ; Start 02/10/18 at 13:00 Buspirone HCl (Buspar) 20 mg DAILY PO Last administered on 02/12/18at 07:54; Start 02/10/18 at 09:00 Clonazepam (KlonoPIN) 1 mg TID PO Last administered on 02/12/18at 19:23; Start 02/10/18 at 09:00 Diltiazem HCl (Cardizem 24hr Cd) 120 mg DAILY PO Last administered on at 07:55; Start 02/10/18 at 09:00 Furosemide (Lasix) 80 mg BID92 PO Last administered on 02/12/18at 13:40; Start 02/10/18 at 09:00 Haloperidol (Haldol) 7.5 mg DAILY PO Last administered on 02/12/18at 07:54; Start 02/10/18 at 09:00 Non-Formulary Medication (Haloperidol Decanoate (Haldol Decanoate 100)) 450 mg Q4WK IM ; Start 02/10/18 at 09:00; Stop 02/10/18 at 16:12; Status DC Non-Formulary Medication (Insulin Aspart (Novolog Flexpen)) see protocol TIDWMEALS SQ ; Start 02/10/18 at 08:00; Status UNV Magnesium Oxide (Magnesium Oxide) 400 mg BID PO Last administered on 02/12/18at 19:22; Start 02/10/18 at 09:00 Metformin HCl (Glucophage) 500 mg BIDWMEALS PO Last administered on 02/12/18at 16:06; Start 02/10/18 at 08:00 Metolazone (Zaroxolyn) 5 mg DAILY PO Last administered on 02/12/18at 07:56; Start 02/10/18 at 09:00 Mirtazapine (Remeron) 15 mg QHS PO Last administered on 02/12/18 19:22; Start 02/10/18 at 21:00 Pioglitazone HCl (Actos) 15 mg DAILY PO Last administered on 02/12/18at 07:54; Start 02/10/18 at 09:00 Trazodone HCl (Desyrel) 25 mg TID@0900,1300,1700 PO Last administered on 16:06; Start 02/10/18 at 09:00 Valproic Acid (Depakene) 750 mg TID PO Last administered on 02/12/18 19:23; Start 02/10/18 at 09:00 Insulin Human Lispro (HumaLOG) 0-9 UNITS TIDWMEALS SQ Last administered on 02/12at 08:43; Start 02/10/18 at 08:00 Dextrose 12.5 gm PRN Q15MIN PRN IV SEE COMMENTS; Start 02/10/18 at 06:30 Olanzapine (ZyPREXA ZYDIS) 5 mg PRN Q2HR PRN PO PSYCHOSIS; Start 02/10/18 at 06 :45 Haloperidol Decanoate (Haldol Decanoate Im Extended Release) 450 mg Q4WK IM ; Start 03/10/18 at 09:00 Trazodone HCl (Desyrel) 25 mg STK-MED ONCE .ROUTE ; Start 02/10/18 at 09:00; Stop 02/11/18 at 10:03; Status DC Trazodone HCl (Desyrel) 25 mg STK-MED ONCE .ROUTE ; Start 02/10/18 at 09:00; Stop 02/11/18 at 10:03; Status DC Trazodone HCl (Desyrel) 25 mg STK-MED ONCE .ROUTE ; Start 02/10/18 at 09:00; Stop 02/11/18 at 10:03; Status DC Trazodone HCl (Desyrel) 25 mg STK-MED ONCE .ROUTE ; Start 02/11/18 at 09:00; Stop 02/11/18 at 10:04; Status DC Clozapine (Clozaril) 25 mg HS PO Last administered on 02/12/18at 19:22; Start at 21:00 Active Scripts Active Reported Duoneb 0.5-3(2.5) Mg/3 Ml (Albuterol/Ipratropium) 3 Ml Ampul.neb 3 Ml NEB DAILY Zyprexa Zydis (Olanzapine) 5 Mg Tab.rapdis 5 Mg PO PRN Q2HR PRN Buspirone Hcl 10 Mg Tablet 10 Mg PO BID@1300,1700 Valproic Acid (Valproate Sodium) 250 Mg/5 Ml Solution 750 Mg PO TID Novolog Flexpen (Insulin Aspart) 100 Unit/1 Ml Insuln.pen 0-9 Unit SQ TIDWMEALS <70 follow hypoglycemic protocol 70-150 0units if eating/ 0 if not eating 151-200 4 units if eating/ 0 units if not eating 201-250 5 units if eating/ 3 units if not eating 251-300 7 units if eating/ 4 units if not eating 301-350 9 units if eating/ 5 units if not eating > 351 Call Physician for futher orders Trazodone Hcl 100 Mg Tablet 200 Mg PO PRN QHS PRN Trazodone Hcl 50 Mg Tablet 25 Mg PO TID@0900,1300,1700 Culturelle (Lactobacillus Rhamnosus Gg) 1 Each Cap.sprink 1 Each PO BID Haloperidol 5 Mg Tablet 7.5 Mg PO DAILY Tylenol (Acetaminophen) 325 Mg Tablet 650 Mg PO PRN Q6HRS PRN Buspirone Hcl 10 Mg Tablet 20 Mg PO DAILY Theophylline Anhydrous 200 Mg Tab.er.12h 200 Mg PO BID Metolazone 5 Mg Tablet 5 Mg PO DAILY Metformin Hcl 500 Mg Tablet 500 Mg PO BIDWMEALS Cardizem Tablet (Diltiazem Hcl) 120 Mg Tablet 120 Mg PO DAILY Amantadine (Amantadine Hcl) 100 Mg Tablet 100 Mg PO BID Actos (Pioglitazone Hcl) 15 Mg Tablet 15 Mg PO DAILY Mirtazapine 15 Mg Tablet 15 Mg PO QHS Haldol Decanoate 100 (Haloperidol Decanoate) 100 Mg/1 Ml Ampul 450 Mg IM Q4WK Klor-Con M20 (Potassium Chloride) 20 Meq Tab.er.prt 40 Meq PO BIDWMEALS Analgesic [place] (Methyl Salicylate/Menthol) 28 Gm Oint...g. 1 Guanaco TP PRN QID PRN Magnesium Oxide 400 Mg Tablet 400 Mg PO BID Milk Of Magnesia (Magnesium Hydroxide) 2,400 Mg/10 Ml Oral.susp 2,400 Mg PO PRN QHS PRN Maalox Advanced Suspension (Mag Hydrox/Aluminum Hyd/Simeth) 355 Ml Oral.susp 15 Ml PO PRN AFTMEALHC PRN D3-50 (Cholecalciferol (Vitamin D3)) 50,000 Unit Capsule 50,000 Unit PO QTH Clonazepam 1 Mg Tablet 1 Mg PO TID Furosemide 40 Mg Tablet 80 Mg PO [id number] Hold for SBP less than 100. After held dose, reassess in 2 hours. If SBP is above threshold, administer dose as ordered. If SBP is below threshold, contact provider for additional instructions. I have reviewed the current psychotropics carefully including drug interactions. Risk benefit ratio favors no change other than as noted in my dictated progress note. Diagnosis: Problems: (1) Depression (2) Schizoaffective disorder (3) Anxiety disorder (4) Impulse control disorder (5) Schizoaffective disorder, chronic condition with acute exacerbation KALIN STARKS MD Feb 12, 2018 21:17
--- NOTE | 2018-02-12 23:51 | PN ---
DATE: 02/11/2018 This is a late entry for 02/11/2018, covers elements not covered in my initial note. SUBJECTIVE: I met with the patient in the evening. The patient has had a difficult day. She has been yelling, loud, disruptive, hollering per nursing report and she has been rude, paranoid. She slept 7 hours previous night. She is hyperverbal, psychotic. Valproic acid level is 55. REVIEW OF SYSTEMS: Ambulation impaired, in Broda chair. No CV, , pulmonary, eye system symptoms on review. MENTAL STATUS EXAM: Oriented to herself and situation. Speech rapid, loud at times. Abstraction fair, computation impaired, language function intact, attention span short. Mood and affect remains labile, grandiose at times. LABORATORY DATA: Reviewed. As noted, valproic acid 55, therapeutic: IMPRESSION: Schizoaffective disorder, bipolar type, mixed with psychotic features. Rest unchanged. PLAN: Carefully reviewed her current psychotropics. She is on rather high dosages of Haldol Decanoate 450 mg IM every 28 days, oral Haldol 7.5 mg daily and despite this, remains quite psychotic and had been on Geodon IM, which we have since discontinued. Depakene is 750 t.i.d. and as stated valproic acid level is therapeutic. We will maintain BuSpar 20 mg daily and 10 mg at noon and at 1700 hours. Klonopin is 1 mg t.i.d., trazodone 25 mg t.i.d., Zyprexa Zydis p.r.n. We will add Clozaril 25 mg p.o. at bedtime. Check CBC, absolute neutrophil count every week and as we increase the Clozaril, we will reduce the Haldol and hopefully ultimately stop it. She has failed multiple antipsychotics and hope is she responds positively to Clozaril. KALIN STARKS MD DR: TRACIE/karli JOB#: [id number] / [id number]
[2018-02-13 05:59] VITALS: BP 125/87
[2018-02-13] MEDS: traZODone 50 MG TABLET. PO SCH ×3 (08:12→16:54)
[2018-02-13] MEDS: metFORMIN 500 MG TABLET PO SCH ×2 (08:12→16:54)
[2018-02-13] MEDS: AMANTADINE HCL 100 MG CAPSULE PO SCH ×2 (08:12→20:32)
[2018-02-13] MEDS: LACTOBACILLUS RHAMNOSUS GG 1 CAPSULE. PO SCH ×2 (08:13→20:29)
[2018-02-13] MEDS: POTASSIUM CHLORIDE 20 MEQ TABLET.ER. PO SCH ×2 (08:13→16:54)
[2018-02-13] MEDS: HALOPERIDOL 5 MG TABLET PO SCH (08:13)
[2018-02-13] MEDS: FUROSEMIDE 80 MG TABLET PO SCH ×2 (08:13→13:46)
[2018-02-13] MEDS: VALPROIC ACID 250 MG CAPSULE. PO SCH ×3 (08:13→20:31)
[2018-02-13] MEDS: busPIRone 10 MG TABLET. PO SCH ×3 (08:14→16:55)
[2018-02-13] MEDS: PIOGLITAZONE 15 MG TABLET. PO SCH (08:14)
[2018-02-13] MEDS: MAGNESIUM OXIDE 400 MG TABLET PO SCH ×2 (08:14→20:31)
[2018-02-13] MEDS: clonazePAM 1 MG TABLET PO SCH ×3 (08:18→20:33)
[2018-02-13] MEDS: INSULIN LISPRO 300 UNITS/3 ML INSULN.PEN. SQ SCH ×3 (08:20→16:56)
[2018-02-13] MEDS: IPRATRPIUM/ALBUTEROL 0.5/2.5MG 3 ML NEBU. NEB SCH (09:00)
[2018-02-13] MEDS: metOLazone 5 MG TABLET PO SCH (13:47)
[2018-02-13] MEDS: CHOLECALCIFEROL (VITAMIN D3) 50,000 UNIT CAPSULE PO SCH (16:54)
[2018-02-13 16:55] VITALS: BP 129/71
[2018-02-13] MEDS: MIRTAZAPINE 15 MG TABLET PO SCH (20:31)
[2018-02-13] MEDS: cloZAPine 25 MG TABLET PO SCH (20:31)
--- NOTE | 2018-02-13 20:50 | PDOC ---
Exam Note: Napoleon Note: Please also refer to the separate dictated note~for this date of service dictated separately.~Patient seen individually. Discussed the patient with Nursing staff reviewed the chart.~Reviewed interim history and current functioning. Reviewed vital signs,~Labs/ Radiology~and current medications noted below. Continue current treatment with the changes noted in the dictated addendum note Assessment: Vital Signs: Vital Signs Date Time Temp Pulse Resp B/P (MAP) Pulse Ox O2 Delivery O2 Flow Rate FiO2 02/13/18 16:55 97.0 77 16 129/71 (90) 91 02/11/18 09:38 Room Air I&O Intake and Output 02/13/18 07:00 Intake Total 1560 ml Balance 1560 ml Intake Oral 1560 ml Labs: Laboratory Tests Test 02/13/18 07:47 02/13/18 11:58 02/13/18 16:35 02/13/18 19:03 Glucose (Fingerstick) 226 mg/dL (70-99) H 125 mg/dL (70-99) H 179 mg/dL (70-99) H 188 mg/dL (70-99) H Current Medications: Meds: Current Medications Lorazepam (Ativan) 2 mg 1X ONCE IM ; Start 02/10/18 at 04:00; Stop 02/10/18 at 04:01; Status DC Diphenhydramine HCl (Benadryl) 50 mg 1X ONCE IM ; Start 02/10/18 at 04:00; Stop 02/10/18 at 04:01; Status DC Ziprasidone (Geodon Im) 20 mg 1X ONCE IM ; Start 02/10/18 at 04:00; Stop at 04:01; Status DC Multivitamins/ Minerals 10 ml/ Folic Acid 1 mg/ Thiamine HCl 100 mg/Lactated Ringer's 1,011.1 ml @ 1,000 mls/ hr 1X ONCE IV ; Start 02/10/18 at 03:45; Stop 02/10/18 at 04:45; Status DC Magnesium Hydroxide (Milk Of Magnesia) 2,400 mg 1X ONCE PO ; Start 02/10/18 at 05:30; Stop 02/10/18 at 05:32; Status DC Potassium Chloride (KCl Oral Soln) 40 meq 1X ONCE PO ; Start 02/10/18 at 05:30 ; Stop 02/10/18 at 05:32; Status DC Acetaminophen (Tylenol) 650 mg PRN Q6HRS PRN PO PAIN / TEMP; Start 02/10/18 at 06:15 Multi-Ingredient Ointment (Analgesic [place]) 1 guanaco PRN QID PRN TP MUSCLE PAIN; Start 02/10/18 at 06:15 Al Hydroxide/Mg Hydroxide (Mylanta Plus Xs) 15 ml PRN AFTMEALHC PRN PO DYSPEPSIA; Start 02/10/18 at 06:15 Magnesium Hydroxide (Milk Of Magnesia) 2,400 mg PRN QHS PRN PO CONSTIPATION; Start 02/10/18 at 06:15 Influenza Virus Vaccine (Afluria Trivalent [id number] Syringe) 0.5 ml ONCE ONCE VAX IM Last administered on 02/10/18at 14:21; Start 02/10/18 at 09:00; Stop at 09:01; Status DC Vitamin D (Vitamin D3) 50,000 unit QTH PO Last administered on 02/13/18at 16:54 ; Start 02/13/18 at 16:00 Albuterol/ Ipratropium (Duoneb) 3 ml DAILY NEB Last administered on 02/12/18at 09:27; Start 02/10/18 at 09:00 Lactobacillus Rhamnosus (Culturelle) 1 cap BID PO Last administered on at 20:29; Start 02/10/18 at 09:00 Potassium Chloride (Klor-Con) 40 meq BIDWMEALS PO Last administered on at 16:54; Start 02/10/18 at 08:00 Amantadine HCl (Symmetrel) 100 mg BID PO Last administered on 02/13/18at 20:32; Start 02/10/18 at 09:00 Buspirone HCl (Buspar) 10 mg 1300,1700 PO Last administered on 02/13/18at 16:55 ; Start 02/10/18 at 13:00 Buspirone HCl (Buspar) 20 mg DAILY PO Last administered on 02/13/18at 08:14; Start 02/10/18 at 09:00 Clonazepam (KlonoPIN) 1 mg TID PO Last administered on 02/13/18at 20:33; Start 02/10/18 at 09:00 Diltiazem HCl (Cardizem 24hr Cd) 120 mg DAILY PO Last administered on 08:12; Start 02/10/18 at 09:00 Furosemide (Lasix) 80 mg BID92 PO Last administered on 02/13/18 13:46; Start 02/10/18 at 09:00 Haloperidol (Haldol) 7.5 mg DAILY PO Last administered on 02/13/18 08:13; Start 02/10/18 at 09:00 Non-Formulary Medication (Haloperidol Decanoate (Haldol Decanoate 100)) 450 mg Q4WK IM ; Start 02/10/18 at 09:00; Stop 02/10/18 at 16:12; Status DC Non-Formulary Medication (Insulin Aspart (Novolog Flexpen)) see protocol TIDWMEALS SQ ; Start 02/10/18 at 08:00; Status UNV Magnesium Oxide (Magnesium Oxide) 400 mg BID PO Last administered on 02/13/18 20:31; Start 02/10/18 at 09:00 Metformin HCl (Glucophage) 500 mg BIDWMEALS PO Last administered on 02/13/18 16:54; Start 02/10/18 at 08:00 Metolazone (Zaroxolyn) 5 mg DAILY PO Last administered on 02/13/18 13:47; Start 02/10/18 at 09:00 Mirtazapine (Remeron) 15 mg QHS PO Last administered on 02/13/18 20:31; Start 02/10/18 at 21:00 Pioglitazone HCl (Actos) 15 mg DAILY PO Last administered on 02/13/18at 08:14; Start 02/10/18 at 09:00 Trazodone HCl (Desyrel) 25 mg TID@0900,1300,1700 PO Last administered on 16:54; Start 02/10/18 at 09:00 Valproic Acid (Depakene) 750 mg TID PO Last administered on 02/13/18 20:31; Start 02/10/18 at 09:00 Insulin Human Lispro (HumaLOG) 0-9 UNITS TIDWMEALS SQ Last administered on 02/13 16:56; Start 02/10/18 at 08:00 Dextrose 12.5 gm PRN Q15MIN PRN IV SEE COMMENTS; Start 02/10/18 at 06:30 Olanzapine (ZyPREXA ZYDIS) 5 mg PRN Q2HR PRN PO PSYCHOSIS; Start 02/10/18 at 06 :45 Haloperidol Decanoate (Haldol Decanoate Im Extended Release) 450 mg Q4WK IM ; Start 03/10/18 at 09:00 Trazodone HCl (Desyrel) 25 mg STK-MED ONCE .ROUTE ; Start 02/10/18 at 09:00; Stop 02/11/18 at 10:03; Status DC Trazodone HCl (Desyrel) 25 mg STK-MED ONCE .ROUTE ; Start 02/10/18 at 09:00; Stop 02/11/18 at 10:03; Status DC Trazodone HCl (Desyrel) 25 mg STK-MED ONCE .ROUTE ; Start 02/10/18 at 09:00; Stop 02/11/18 at 10:03; Status DC Trazodone HCl (Desyrel) 25 mg STK-MED ONCE .ROUTE ; Start 02/11/18 at 09:00; Stop 02/11/18 at 10:04; Status DC Clozapine (Clozaril) 25 mg HS PO Last administered on 02/13/18at 20:31; Start at 21:00 Active Scripts Active Reported Duoneb 0.5-3(2.5) Mg/3 Ml (Albuterol/Ipratropium) 3 Ml Ampul.neb 3 Ml NEB DAILY Zyprexa Zydis (Olanzapine) 5 Mg Tab.rapdis 5 Mg PO PRN Q2HR PRN Buspirone Hcl 10 Mg Tablet 10 Mg PO BID@1300,1700 Valproic Acid (Valproate Sodium) 250 Mg/5 Ml Solution 750 Mg PO TID Novolog Flexpen (Insulin Aspart) 100 Unit/1 Ml Insuln.pen 0-9 Unit SQ TIDWMEALS <70 follow hypoglycemic protocol 70-150 0units if eating/ 0 if not eating 151-200 4 units if eating/ 0 units if not eating 201-250 5 units if eating/ 3 units if not eating 251-300 7 units if eating/ 4 units if not eating 301-350 9 units if eating/ 5 units if not eating > 351 Call Physician for futher orders Trazodone Hcl 100 Mg Tablet 200 Mg PO PRN QHS PRN Trazodone Hcl 50 Mg Tablet 25 Mg PO TID@0900,1300,1700 Culturelle (Lactobacillus Rhamnosus Gg) 1 Each Cap.sprink 1 Each PO BID Haloperidol 5 Mg Tablet 7.5 Mg PO DAILY Tylenol (Acetaminophen) 325 Mg Tablet 650 Mg PO PRN Q6HRS PRN Buspirone Hcl 10 Mg Tablet 20 Mg PO DAILY Theophylline Anhydrous 200 Mg Tab.er.12h 200 Mg PO BID Metolazone 5 Mg Tablet 5 Mg PO DAILY Metformin Hcl 500 Mg Tablet 500 Mg PO BIDWMEALS Cardizem Tablet (Diltiazem Hcl) 120 Mg Tablet 120 Mg PO DAILY Amantadine (Amantadine Hcl) 100 Mg Tablet 100 Mg PO BID Actos (Pioglitazone Hcl) 15 Mg Tablet 15 Mg PO DAILY Mirtazapine 15 Mg Tablet 15 Mg PO QHS Haldol Decanoate 100 (Haloperidol Decanoate) 100 Mg/1 Ml Ampul 450 Mg IM Q4WK Klor-Con M20 (Potassium Chloride) 20 Meq Tab.er.prt 40 Meq PO BIDWMEALS Analgesic [place] (Methyl Salicylate/Menthol) 28 Gm Oint...g. 1 Guanaco TP PRN QID PRN Magnesium Oxide 400 Mg Tablet 400 Mg PO BID Milk Of Magnesia (Magnesium Hydroxide) 2,400 Mg/10 Ml Oral.susp 2,400 Mg PO PRN QHS PRN Maalox Advanced Suspension (Mag Hydrox/Aluminum Hyd/Simeth) 355 Ml Oral.susp 15 Ml PO PRN AFTMEALHC PRN D3-50 (Cholecalciferol (Vitamin D3)) 50,000 Unit Capsule 50,000 Unit PO QTH Clonazepam 1 Mg Tablet 1 Mg PO TID Furosemide 40 Mg Tablet 80 Mg PO [id number] Hold for SBP less than 100. After held dose, reassess in 2 hours. If SBP is above threshold, administer dose as ordered. If SBP is below threshold, contact provider for additional instructions. I have reviewed the current psychotropics carefully including drug interactions. Risk benefit ratio favors no change other than as noted in my dictated progress note. Diagnosis: Problems: (1) Depression (2) Schizoaffective disorder (3) Anxiety disorder (4) Impulse control disorder (5) Schizoaffective disorder, chronic condition with acute exacerbation KALIN STARKS MD Feb 13, 2018 20:50
[2018-02-14 06:49] VITALS: BP 118/61
[2018-02-14] MEDS: traZODone 50 MG TABLET. PO SCH ×3 (08:07→17:13)
[2018-02-14] MEDS: clonazePAM 1 MG TABLET PO SCH ×3 (08:09→19:23)
[2018-02-14] MEDS: HALOPERIDOL 5 MG TABLET PO SCH (08:09)
[2018-02-14] MEDS: MAGNESIUM OXIDE 400 MG TABLET PO SCH ×2 (08:10→19:23)
[2018-02-14] MEDS: metFORMIN 500 MG TABLET PO SCH ×2 (08:10→17:12)
[2018-02-14] MEDS: FUROSEMIDE 80 MG TABLET PO SCH ×2 (08:10→14:01)
[2018-02-14] MEDS: LACTOBACILLUS RHAMNOSUS GG 1 CAPSULE. PO SCH ×2 (08:10→19:23)
[2018-02-14] MEDS: busPIRone 10 MG TABLET. PO SCH ×3 (08:10→17:12)
[2018-02-14] MEDS: PIOGLITAZONE 15 MG TABLET. PO SCH (08:10)
[2018-02-14] MEDS: POTASSIUM CHLORIDE 20 MEQ TABLET.ER. PO SCH ×2 (08:10→17:13)
[2018-02-14] MEDS: VALPROIC ACID 250 MG CAPSULE. PO SCH ×3 (08:11→19:23)
[2018-02-14] MEDS: AMANTADINE HCL 100 MG CAPSULE PO SCH ×2 (08:11→19:25)
[2018-02-14] MEDS: metOLazone 5 MG TABLET PO SCH (08:11)
[2018-02-14] MEDS: INSULIN LISPRO 300 UNITS/3 ML INSULN.PEN. SQ SCH ×3 (08:15→17:00)
[2018-02-14] MEDS: IPRATRPIUM/ALBUTEROL 0.5/2.5MG 3 ML NEBU. NEB SCH (09:00)
[2018-02-14 16:59] VITALS: BP 120/76
[2018-02-14] MEDS: MIRTAZAPINE 15 MG TABLET PO SCH (19:23)
[2018-02-14] MEDS: cloZAPine 25 MG TABLET PO SCH (19:23)
--- NOTE | 2018-02-14 20:58 | PDOC ---
Exam Note: Napoleon Note: Please also refer to the separate dictated note~for this date of service dictated separately.~Patient seen individually. Discussed the patient with Nursing staff reviewed the chart.~Reviewed interim history and current functioning. Reviewed vital signs,~Labs/ Radiology~and current medications noted below. Continue current treatment with the changes noted in the dictated addendum note Assessment: Vital Signs: Vital Signs Date Time Temp Pulse Resp B/P (MAP) Pulse Ox O2 Delivery O2 Flow Rate FiO2 02/14/18 16:59 97.7 78 20 120/76 (91) 91 02/11/18 09:38 Room Air I&O Intake and Output 02/14/18 07:00 Intake Total 960 ml Balance 960 ml Intake Oral 960 ml # Voids 1 Labs: Laboratory Tests Test 02/14/18 07:47 02/14/18 11:52 02/14/18 17:25 02/14/18 19:27 Glucose (Fingerstick) 152 mg/dL (70-99) H 131 mg/dL (70-99) H 119 mg/dL (70-99) H 251 mg/dL (70-99) H Current Medications: Meds: Current Medications Lorazepam (Ativan) 2 mg 1X ONCE IM ; Start 02/10/18 at 04:00; Stop 02/10/18 at 04:01; Status DC Diphenhydramine HCl (Benadryl) 50 mg 1X ONCE IM ; Start 02/10/18 at 04:00; Stop 02/10/18 at 04:01; Status DC Ziprasidone (Geodon Im) 20 mg 1X ONCE IM ; Start 02/10/18 at 04:00; Stop at 04:01; Status DC Multivitamins/ Minerals 10 ml/ Folic Acid 1 mg/ Thiamine HCl 100 mg/Lactated Ringer's 1,011.1 ml @ 1,000 mls/ hr 1X ONCE IV ; Start 02/10/18 at 03:45; Stop 02/10/18 at 04:45; Status DC Magnesium Hydroxide (Milk Of Magnesia) 2,400 mg 1X ONCE PO ; Start 02/10/18 at 05:30; Stop 02/10/18 at 05:32; Status DC Potassium Chloride (KCl Oral Soln) 40 meq 1X ONCE PO ; Start 02/10/18 at 05:30 ; Stop 02/10/18 at 05:32; Status DC Acetaminophen (Tylenol) 650 mg PRN Q6HRS PRN PO PAIN / TEMP; Start 02/10/18 at 06:15 Multi-Ingredient Ointment (Analgesic [place]) 1 guanaco PRN QID PRN TP MUSCLE PAIN; Start 02/10/18 at 06:15 Al Hydroxide/Mg Hydroxide (Mylanta Plus Xs) 15 ml PRN AFTMEALHC PRN PO DYSPEPSIA; Start 02/10/18 at 06:15 Magnesium Hydroxide (Milk Of Magnesia) 2,400 mg PRN QHS PRN PO CONSTIPATION; Start 02/10/18 at 06:15 Influenza Virus Vaccine (Afluria Trivalent [id number] Syringe) 0.5 ml ONCE ONCE VAX IM Last administered on 02/10/18at 14:21; Start 02/10/18 at 09:00; Stop at 09:01; Status DC Vitamin D (Vitamin D3) 50,000 unit QTH PO Last administered on 02/13/18at 16:54 ; Start 02/13/18 at 16:00 Albuterol/ Ipratropium (Duoneb) 3 ml DAILY NEB Last administered on 02/12/18at 09:27; Start 02/10/18 at 09:00 Lactobacillus Rhamnosus (Culturelle) 1 cap BID PO Last administered on at 19:23; Start 02/10/18 at 09:00 Potassium Chloride (Klor-Con) 40 meq BIDWMEALS PO Last administered on at 17:13; Start 02/10/18 at 08:00 Amantadine HCl (Symmetrel) 100 mg BID PO Last administered on 02/14/18 19:25; Start 02/10/18 at 09:00 Buspirone HCl (Buspar) 10 mg 1300,1700 PO Last administered on 02/14/18at 17:12 ; Start 02/10/18 at 13:00 Buspirone HCl (Buspar) 20 mg DAILY PO Last administered on 02/14/18at 08:10; Start 02/10/18 at 09:00 Clonazepam (KlonoPIN) 1 mg TID PO Last administered on 02/14/18at 19:23; Start 02/10/18 at 09:00 Diltiazem HCl (Cardizem 24hr Cd) 120 mg DAILY PO Last administered on 08:06; Start 02/10/18 at 09:00 Furosemide (Lasix) 80 mg BID92 PO Last administered on 02/14/18 14:01; Start 02/10/18 at 09:00 Haloperidol (Haldol) 7.5 mg DAILY PO Last administered on 02/14/18 08:09; Start 02/10/18 at 09:00 Non-Formulary Medication (Haloperidol Decanoate (Haldol Decanoate 100)) 450 mg Q4WK IM ; Start 02/10/18 at 09:00; Stop 02/10/18 at 16:12; Status DC Non-Formulary Medication (Insulin Aspart (Novolog Flexpen)) see protocol TIDWMEALS SQ ; Start 02/10/18 at 08:00; Status UNV Magnesium Oxide (Magnesium Oxide) 400 mg BID PO Last administered on 02/14/18 19:23; Start 02/10/18 at 09:00 Metformin HCl (Glucophage) 500 mg BIDWMEALS PO Last administered on 02/14/18 17:12; Start 02/10/18 at 08:00 Metolazone (Zaroxolyn) 5 mg DAILY PO Last administered on 02/14/18 08:11; Start 02/10/18 at 09:00 Mirtazapine (Remeron) 15 mg QHS PO Last administered on 02/14/18 19:23; Start 02/10/18 at 21:00 Pioglitazone HCl (Actos) 15 mg DAILY PO Last administered on 02/14/18at 08:10; Start 02/10/18 at 09:00 Trazodone HCl (Desyrel) 25 mg TID@0900,1300,1700 PO Last administered on 17:13; Start 02/10/18 at 09:00 Valproic Acid (Depakene) 750 mg TID PO Last administered on 02/14/18 19:23; Start 02/10/18 at 09:00 Insulin Human Lispro (HumaLOG) 0-9 UNITS TIDWMEALS SQ Last administered on 02/14at 08:15; Start 02/10/18 at 08:00 Dextrose 12.5 gm PRN Q15MIN PRN IV SEE COMMENTS; Start 02/10/18 at 06:30 Olanzapine (ZyPREXA ZYDIS) 5 mg PRN Q2HR PRN PO PSYCHOSIS Last administered on 02/14/18at 13:59; Start 02/10/18 at 06:45 Haloperidol Decanoate (Haldol Decanoate Im Extended Release) 450 mg Q4WK IM ; Start 03/10/18 at 09:00 Trazodone HCl (Desyrel) 25 mg STK-MED ONCE .ROUTE ; Start 02/10/18 at 09:00; Stop 02/11/18 at 10:03; Status DC Trazodone HCl (Desyrel) 25 mg STK-MED ONCE .ROUTE ; Start 02/10/18 at 09:00; Stop 02/11/18 at 10:03; Status DC Trazodone HCl (Desyrel) 25 mg STK-MED ONCE .ROUTE ; Start 02/10/18 at 09:00; Stop 02/11/18 at 10:03; Status DC Trazodone HCl (Desyrel) 25 mg STK-MED ONCE .ROUTE ; Start 02/11/18 at 09:00; Stop 02/11/18 at 10:04; Status DC Clozapine (Clozaril) 25 mg HS PO Last administered on 02/14/18at 19:23; Start at 21:00 Active Scripts Active Reported Duoneb 0.5-3(2.5) Mg/3 Ml (Albuterol/Ipratropium) 3 Ml Ampul.neb 3 Ml NEB DAILY Zyprexa Zydis (Olanzapine) 5 Mg Tab.rapdis 5 Mg PO PRN Q2HR PRN Buspirone Hcl 10 Mg Tablet 10 Mg PO BID@1300,1700 Valproic Acid (Valproate Sodium) 250 Mg/5 Ml Solution 750 Mg PO TID Novolog Flexpen (Insulin Aspart) 100 Unit/1 Ml Insuln.pen 0-9 Unit SQ TIDWMEALS <70 follow hypoglycemic protocol 70-150 0units if eating/ 0 if not eating 151-200 4 units if eating/ 0 units if not eating 201-250 5 units if eating/ 3 units if not eating 251-300 7 units if eating/ 4 units if not eating 301-350 9 units if eating/ 5 units if not eating > 351 Call Physician for futher orders Trazodone Hcl 100 Mg Tablet 200 Mg PO PRN QHS PRN Trazodone Hcl 50 Mg Tablet 25 Mg PO TID@0900,1300,1700 Culturelle (Lactobacillus Rhamnosus Gg) 1 Each Cap.sprink 1 Each PO BID Haloperidol 5 Mg Tablet 7.5 Mg PO DAILY Tylenol (Acetaminophen) 325 Mg Tablet 650 Mg PO PRN Q6HRS PRN Buspirone Hcl 10 Mg Tablet 20 Mg PO DAILY Theophylline Anhydrous 200 Mg Tab.er.12h 200 Mg PO BID Metolazone 5 Mg Tablet 5 Mg PO DAILY Metformin Hcl 500 Mg Tablet 500 Mg PO BIDWMEALS Cardizem Tablet (Diltiazem Hcl) 120 Mg Tablet 120 Mg PO DAILY Amantadine (Amantadine Hcl) 100 Mg Tablet 100 Mg PO BID Actos (Pioglitazone Hcl) 15 Mg Tablet 15 Mg PO DAILY Mirtazapine 15 Mg Tablet 15 Mg PO QHS Haldol Decanoate 100 (Haloperidol Decanoate) 100 Mg/1 Ml Ampul 450 Mg IM Q4WK Klor-Con M20 (Potassium Chloride) 20 Meq Tab.er.prt 40 Meq PO BIDWMEALS Analgesic [place] (Methyl Salicylate/Menthol) 28 Gm Oint...g. 1 [place] TP PRN QID PRN Magnesium Oxide 400 Mg Tablet 400 Mg PO BID Milk Of Magnesia (Magnesium Hydroxide) 2,400 Mg/10 Ml Oral.susp 2,400 Mg PO PRN QHS PRN Maalox Advanced Suspension (Mag Hydrox/Aluminum Hyd/Simeth) 355 Ml Oral.susp 15 Ml PO PRN AFTMEALHC PRN D3-50 (Cholecalciferol (Vitamin D3)) 50,000 Unit Capsule 50,000 Unit PO QTH Clonazepam 1 Mg Tablet 1 Mg PO TID Furosemide 40 Mg Tablet 80 Mg PO [id number] Hold for SBP less than 100. After held dose, reassess in 2 hours. If SBP is above threshold, administer dose as ordered. If SBP is below threshold, contact provider for additional instructions. I have reviewed the current psychotropics carefully including drug interactions. Risk benefit ratio favors no change other than as noted in my dictated progress note. Diagnosis: Problems: (1) Depression (2) Schizoaffective disorder (3) Anxiety disorder (4) Impulse control disorder (5) Schizoaffective disorder, chronic condition with acute exacerbation KALIN STARKS MD Feb 14, 2018 20:58
--- NOTE | 2018-02-15 00:12 | PN ---
DATE: 02/12/2018 This is a late entry for 02/12/2018 covers elements not covered in my initial note. SUBJECTIVE: I met with the patient in the evening. The patient has had a very difficult day. She slept 7-1/2 hours previous evening, compliant with her medications during the day on 02/12/2018, refused them the previous night. REVIEW OF SYSTEMS: Ambulation impaired with walker. No CV, , pulmonary, eye system symptoms on review. MENTAL STATUS EXAM: She can be loud, disruptive, yelling at times, remains psychotic. Attention span short. Language function intact; otherwise, oriented. Mood and affect labile. LABORATORY DATA: Reviewed. IMPRESSION: Unchanged from initial note. PLAN: Continue current psychotropics. Valproic acid level is therapeutic. Clozaril is being gradually increased. MAN Mary STARKS MD DR: TRACIE/karli JOB#: [id number] / [id number]
--- NOTE | 2018-02-15 00:16 | PN ---
DATE: 02/13/2018 This is a late entry for 02/13/2018 covers elements not covered in my initial note. SUBJECTIVE: I met with the patient in the evening, staffed at a treatment team meeting with the entire team in the morning. Reviewed the patient's ongoing mood lability. She is rude, resistive to cares per nursing staff, throwing her shoes at people around her, obsessed with her shoes. Took a nap in the afternoon. REVIEW OF SYSTEMS: Ambulation impaired with walker. No CV, , pulmonary, eye system symptoms on review. Reliability poor. MENTAL STATUS EXAM: Oriented to herself and situation. Speech coherent, rapid, loud at times. Abstraction fair, computation impaired, language function intact, attention span short. Mood and affect remain somewhat labile. LABORATORY DATA: Valproic acid level is 55. IMPRESSION: Unchanged from initial note. PLAN: Continue to gradually increase the Clozaril. Maintain Depakote, BuSpar, Haldol oral and decanoate and amantadine and we may reduce this gradually, but for now, continue this along with Klonopin, trazodone scheduled during the day as well. MAN Mary STARKS MD DR: TRACIE/karli JOB#: [id number] / [id number]
[2018-02-15 06:53] VITALS: BP 120/61
[2018-02-15] MEDS: INSULIN LISPRO 300 UNITS/3 ML INSULN.PEN. SQ SCH ×3 (08:13→17:09)
[2018-02-15] MEDS: metFORMIN 500 MG TABLET PO SCH ×2 (08:14→17:21)
[2018-02-15] MEDS: POTASSIUM CHLORIDE 20 MEQ TABLET.ER. PO SCH ×2 (08:14→17:21)
[2018-02-15] MEDS: busPIRone 10 MG TABLET. PO SCH ×3 (08:15→17:21)
[2018-02-15] MEDS: PIOGLITAZONE 15 MG TABLET. PO SCH (08:15)
[2018-02-15] MEDS: traZODone 50 MG TABLET. PO SCH ×3 (08:16→17:00)
[2018-02-15] MEDS: VALPROIC ACID 250 MG CAPSULE. PO SCH ×3 (08:16→19:24)
[2018-02-15] MEDS: LACTOBACILLUS RHAMNOSUS GG 1 CAPSULE. PO SCH ×2 (08:16→19:25)
[2018-02-15] MEDS: HALOPERIDOL 5 MG TABLET PO SCH (08:17)
[2018-02-15] MEDS: MAGNESIUM OXIDE 400 MG TABLET PO SCH ×2 (08:19→19:24)
[2018-02-15] MEDS: metOLazone 5 MG TABLET PO SCH (08:19)
[2018-02-15] MEDS: FUROSEMIDE 80 MG TABLET PO SCH ×2 (08:19→14:00)
[2018-02-15] MEDS: clonazePAM 1 MG TABLET PO SCH ×3 (08:19→19:24)
[2018-02-15] MEDS: NYSTATIN TOPICAL POWDER 15GM BOTTLE. TP SCH ×2 (08:19→19:26)
[2018-02-15] MEDS: AMANTADINE HCL 100 MG CAPSULE PO SCH ×2 (08:19→19:26)
[2018-02-15] MEDS: IPRATRPIUM/ALBUTEROL 0.5/2.5MG 3 ML NEBU. NEB SCH (10:21)
[2018-02-15 16:40] VITALS: BP 132/82
[2018-02-15] MEDS: MIRTAZAPINE 15 MG TABLET PO SCH (19:24)
[2018-02-15] MEDS: cloZAPine 25 MG TABLET PO SCH (19:25)
--- NOTE | 2018-02-15 23:09 | PDOC ---
Exam Note: [place] Note: Please also refer to the separate dictated note~for this date of service dictated separately.~Patient seen individually. Discussed the patient with Nursing staff reviewed the chart.~Reviewed interim history and current functioning. Reviewed vital signs,~Labs/ Radiology~and current medications noted below. Continue current treatment with the changes noted in the dictated addendum note Assessment: Vital Signs: Vital Signs Date Time Temp Pulse Resp B/P (MAP) Pulse Ox O2 Delivery O2 Flow Rate FiO2 02/15/18 16:40 97.3 65 18 132/82 (99) 91 02/11/18 09:38 Room Air I&O Intake and Output 02/15/18 07:00 Intake Total 1080 ml Balance 1080 ml Intake Oral 1080 ml # Voids 1 Labs: Laboratory Tests Test 02/15/18 07:31 02/15/18 12:14 02/15/18 17:00 02/15/18 19:28 Glucose (Fingerstick) 127 mg/dL (70-99) H 217 mg/dL (70-99) H 97 mg/dL (70-99) 185 mg/dL (70-99) H Current Medications: Meds: Current Medications Lorazepam (Ativan) 2 mg 1X ONCE IM ; Start 02/10/18 at 04:00; Stop 02/10/18 at 04:01; Status DC Diphenhydramine HCl (Benadryl) 50 mg 1X ONCE IM ; Start 02/10/18 at 04:00; Stop 02/10/18 at 04:01; Status DC Ziprasidone (Geodon Im) 20 mg 1X ONCE IM ; Start 02/10/18 at 04:00; Stop at 04:01; Status DC Multivitamins/ Minerals 10 ml/ Folic Acid 1 mg/ Thiamine HCl 100 mg/Lactated Ringer's 1,011.1 ml @ 1,000 mls/ hr 1X ONCE IV ; Start 02/10/18 at 03:45; Stop 02/10/18 at 04:45; Status DC Magnesium Hydroxide (Milk Of Magnesia) 2,400 mg 1X ONCE PO ; Start 02/10/18 at 05:30; Stop 02/10/18 at 05:32; Status DC Potassium Chloride (KCl Oral Soln) 40 meq 1X ONCE PO ; Start 02/10/18 at 05:30 ; Stop 02/10/18 at 05:32; Status DC Acetaminophen (Tylenol) 650 mg PRN Q6HRS PRN PO PAIN / TEMP; Start 02/10/18 at 06:15 Multi-Ingredient Ointment (Analgesic [place]) 1 guanaco PRN QID PRN TP MUSCLE PAIN; Start 02/10/18 at 06:15 Al Hydroxide/Mg Hydroxide (Mylanta Plus Xs) 15 ml PRN AFTMEALHC PRN PO DYSPEPSIA; Start 02/10/18 at 06:15 Magnesium Hydroxide (Milk Of Magnesia) 2,400 mg PRN QHS PRN PO CONSTIPATION; Start 02/10/18 at 06:15 Influenza Virus Vaccine (Afluria Trivalent [id number] Syringe) 0.5 ml ONCE ONCE VAX IM Last administered on 02/10/18at 14:21; Start 02/10/18 at 09:00; Stop at 09:01; Status DC Vitamin D (Vitamin D3) 50,000 unit QTH PO Last administered on 02/13/18at 16:54 ; Start 02/13/18 at 16:00 Albuterol/ Ipratropium (Duoneb) 3 ml DAILY NEB Last administered on 02/12/18at 09:27; Start 02/10/18 at 09:00 Lactobacillus Rhamnosus (Culturelle) 1 cap BID PO Last administered on at 19:25; Start 02/10/18 at 09:00 Potassium Chloride (Klor-Con) 40 meq BIDWMEALS PO Last administered on at 17:21; Start 02/10/18 at 08:00 Amantadine HCl (Symmetrel) 100 mg BID PO Last administered on 02/15/18at 19:26; Start 02/10/18 at 09:00 Buspirone HCl (Buspar) 10 mg 1300,1700 PO Last administered on 02/15/18at 17:21 ; Start 02/10/18 at 13:00 Buspirone HCl (Buspar) 20 mg DAILY PO Last administered on 02/15/18at 08:15; Start 02/10/18 at 09:00 Clonazepam (KlonoPIN) 1 mg TID PO Last administered on 02/15/18at 19:24; Start 02/10/18 at 09:00 Diltiazem HCl (Cardizem 24hr Cd) 120 mg DAILY PO Last administered on 08:16; Start 02/10/18 at 09:00 Furosemide (Lasix) 80 mg BID92 PO Last administered on 02/15/18 08:19; Start 02/10/18 at 09:00 Haloperidol (Haldol) 7.5 mg DAILY PO Last administered on 02/15/18 08:17; Start 02/10/18 at 09:00 Non-Formulary Medication (Haloperidol Decanoate (Haldol Decanoate 100)) 450 mg Q4WK IM ; Start 02/10/18 at 09:00; Stop 02/10/18 at 16:12; Status DC Non-Formulary Medication (Insulin Aspart (Novolog Flexpen)) see protocol TIDWMEALS SQ ; Start 02/10/18 at 08:00; Status UNV Magnesium Oxide (Magnesium Oxide) 400 mg BID PO Last administered on 02/15/18 19:24; Start 02/10/18 at 09:00 Metformin HCl (Glucophage) 500 mg BIDWMEALS PO Last administered on 02/15/18 17:21; Start 02/10/18 at 08:00 Metolazone (Zaroxolyn) 5 mg DAILY PO Last administered on 02/15/18 08:19; Start 02/10/18 at 09:00 Mirtazapine (Remeron) 15 mg QHS PO Last administered on 02/15/18 19:24; Start 02/10/18 at 21:00 Pioglitazone HCl (Actos) 15 mg DAILY PO Last administered on 02/15/18at 08:15; Start 02/10/18 at 09:00 Trazodone HCl (Desyrel) 25 mg TID@0900,1300,1700 PO Last administered on 08:16; Start 02/10/18 at 09:00 Valproic Acid (Depakene) 750 mg TID PO Last administered on 02/15/18 19:24; Start 02/10/18 at 09:00 Insulin Human Lispro (HumaLOG) 0-9 UNITS TIDWMEALS SQ Last administered on 02/15at 12:22; Start 02/10/18 at 08:00 Dextrose 12.5 gm PRN Q15MIN PRN IV SEE COMMENTS; Start 02/10/18 at 06:30 Olanzapine (ZyPREXA ZYDIS) 5 mg PRN Q2HR PRN PO PSYCHOSIS Last administered on 02/14/18at 13:59; Start 02/10/18 at 06:45 Haloperidol Decanoate (Haldol Decanoate Im Extended Release) 450 mg Q4WK IM ; Start 03/10/18 at 09:00 Trazodone HCl (Desyrel) 25 mg STK-MED ONCE .ROUTE ; Start 02/10/18 at 09:00; Stop 02/11/18 at 10:03; Status DC Trazodone HCl (Desyrel) 25 mg STK-MED ONCE .ROUTE ; Start 02/10/18 at 09:00; Stop 02/11/18 at 10:03; Status DC Trazodone HCl (Desyrel) 25 mg STK-MED ONCE .ROUTE ; Start 02/10/18 at 09:00; Stop 02/11/18 at 10:03; Status DC Trazodone HCl (Desyrel) 25 mg STK-MED ONCE .ROUTE ; Start 02/11/18 at 09:00; Stop 02/11/18 at 10:04; Status DC Clozapine (Clozaril) 25 mg HS PO Last administered on 02/15/18at 19:25; Start at 21:00 Nystatin (Nystop) 1 guanaco BID TP Last administered on 02/15/18at 19:26; Start at 09:00 Active Scripts Active Reported Duoneb 0.5-3(2.5) Mg/3 Ml (Albuterol/Ipratropium) 3 Ml Ampul.neb 3 Ml NEB DAILY Zyprexa Zydis (Olanzapine) 5 Mg Tab.rapdis 5 Mg PO PRN Q2HR PRN Buspirone Hcl 10 Mg Tablet 10 Mg PO BID@1300,1700 Valproic Acid (Valproate Sodium) 250 Mg/5 Ml Solution 750 Mg PO TID Novolog Flexpen (Insulin Aspart) 100 Unit/1 Ml Insuln.pen 0-9 Unit SQ TIDWMEALS <70 follow hypoglycemic protocol 70-150 0units if eating/ 0 if not eating 151-200 4 units if eating/ 0 units if not eating 201-250 5 units if eating/ 3 units if not eating 251-300 7 units if eating/ 4 units if not eating 301-350 9 units if eating/ 5 units if not eating > 351 Call Physician for futher orders Trazodone Hcl 100 Mg Tablet 200 Mg PO PRN QHS PRN Trazodone Hcl 50 Mg Tablet 25 Mg PO TID@0900,1300,1700 Culturelle (Lactobacillus Rhamnosus Gg) 1 Each Cap.sprink 1 Each PO BID Haloperidol 5 Mg Tablet 7.5 Mg PO DAILY Tylenol (Acetaminophen) 325 Mg Tablet 650 Mg PO PRN Q6HRS PRN Buspirone Hcl 10 Mg Tablet 20 Mg PO DAILY Theophylline Anhydrous 200 Mg Tab.er.12h 200 Mg PO BID Metolazone 5 Mg Tablet 5 Mg PO DAILY Metformin Hcl 500 Mg Tablet 500 Mg PO BIDWMEALS Cardizem Tablet (Diltiazem Hcl) 120 Mg Tablet 120 Mg PO DAILY Amantadine (Amantadine Hcl) 100 Mg Tablet 100 Mg PO BID Actos (Pioglitazone Hcl) 15 Mg Tablet 15 Mg PO DAILY Mirtazapine 15 Mg Tablet 15 Mg PO QHS Haldol Decanoate 100 (Haloperidol Decanoate) 100 Mg/1 Ml Ampul 450 Mg IM Q4WK Klor-Con M20 (Potassium Chloride) 20 Meq Tab.er.prt 40 Meq PO BIDWMEALS Analgesic [place] (Methyl Salicylate/Menthol) 28 Gm Oint...g. 1 [place] TP PRN QID PRN Magnesium Oxide 400 Mg Tablet 400 Mg PO BID Milk Of Magnesia (Magnesium Hydroxide) 2,400 Mg/10 Ml Oral.susp 2,400 Mg PO PRN QHS PRN Maalox Advanced Suspension (Mag Hydrox/Aluminum Hyd/Simeth) 355 Ml Oral.susp 15 Ml PO PRN AFTMEALHC PRN D3-50 (Cholecalciferol (Vitamin D3)) 50,000 Unit Capsule 50,000 Unit PO QTH Clonazepam 1 Mg Tablet 1 Mg PO TID Furosemide 40 Mg Tablet 80 Mg PO [id number] Hold for SBP less than 100. After held dose, reassess in 2 hours. If SBP is above threshold, administer dose as ordered. If SBP is below threshold, contact provider for additional instructions. I have reviewed the current psychotropics carefully including drug interactions. Risk benefit ratio favors no change other than as noted in my dictated progress note. Diagnosis: Problems: (1) Depression (2) Schizoaffective disorder (3) Anxiety disorder (4) Impulse control disorder (5) Schizoaffective disorder, chronic condition with acute exacerbation KALIN STARKS MD Feb 15, 2018 23:09
[2018-02-16] MEDS: ACETAMINOPHEN 325 MG TABLET PO PRN (05:22)
[2018-02-16 07:00] VITALS: BP 121/54
[2018-02-16] MEDS: INSULIN LISPRO 300 UNITS/3 ML INSULN.PEN. SQ SCH ×3 (08:00→17:06)
[2018-02-16] MEDS: metFORMIN 500 MG TABLET PO SCH ×2 (10:05→17:03)
[2018-02-16] MEDS: busPIRone 10 MG TABLET. PO SCH ×3 (10:05→17:03)
[2018-02-16] MEDS: POTASSIUM CHLORIDE 20 MEQ TABLET.ER. PO SCH ×2 (10:05→17:03)
[2018-02-16] MEDS: PIOGLITAZONE 15 MG TABLET. PO SCH (10:05)
[2018-02-16] MEDS: LACTOBACILLUS RHAMNOSUS GG 1 CAPSULE. PO SCH ×2 (10:06→21:13)
[2018-02-16] MEDS: FUROSEMIDE 80 MG TABLET PO SCH ×2 (10:07→14:51)
[2018-02-16] MEDS: MAGNESIUM OXIDE 400 MG TABLET PO SCH ×2 (10:07→21:13)
[2018-02-16] MEDS: metOLazone 5 MG TABLET PO SCH (10:07)
[2018-02-16] MEDS: NYSTATIN TOPICAL POWDER 15GM BOTTLE. TP SCH ×2 (10:07→21:15)
[2018-02-16] MEDS: VALPROIC ACID 250 MG CAPSULE. PO SCH ×3 (10:07→21:13)
[2018-02-16] MEDS: traZODone 50 MG TABLET. PO SCH ×3 (10:07→17:03)
[2018-02-16] MEDS: AMANTADINE HCL 100 MG CAPSULE PO SCH ×2 (10:07→21:15)
[2018-02-16] MEDS: HALOPERIDOL 5 MG TABLET PO SCH (10:07)
[2018-02-16] MEDS: clonazePAM 1 MG TABLET PO SCH ×3 (10:08→21:13)
[2018-02-16] MEDS: IPRATRPIUM/ALBUTEROL 0.5/2.5MG 3 ML NEBU. NEB SCH (10:46)
[2018-02-16 16:53] VITALS: BP 136/76
[2018-02-16] MEDS ORDERED: traZODone 100 MG TABLET. PO PRN ×2 (17:00→22:45)
--- NOTE | 2018-02-16 21:11 | PDOC ---
Exam Note: Napoleon Note: Please also refer to the separate dictated note~for this date of service dictated separately.~Patient seen individually. Discussed the patient with Nursing staff reviewed the chart.~Reviewed interim history and current functioning. Reviewed vital signs,~Labs/ Radiology~and current medications noted below. Continue current treatment with the changes noted in the dictated addendum note Assessment: Vital Signs: Vital Signs Date Time Temp Pulse Resp B/P (MAP) Pulse Ox O2 Delivery O2 Flow Rate FiO2 02/16/18 16:53 98.0 83 18 136/76 (96) 96 02/16/18 10:48 Room Air I&O Intake and Output 02/16/18 07:00 Intake Total 1440 ml Balance 1440 ml Intake Oral 1440 ml # Voids 2 Labs: Laboratory Tests Test 02/16/18 07:40 02/16/18 12:26 02/16/18 16:57 02/16/18 19:48 Glucose (Fingerstick) 140 mg/dL (70-99) H 231 mg/dL (70-99) H 167 mg/dL (70-99) H 185 mg/dL (70-99) H Current Medications: Meds: Current Medications Lorazepam (Ativan) 2 mg 1X ONCE IM ; Start 02/10/18 at 04:00; Stop 02/10/18 at 04:01; Status DC Diphenhydramine HCl (Benadryl) 50 mg 1X ONCE IM ; Start 02/10/18 at 04:00; Stop 02/10/18 at 04:01; Status DC Ziprasidone (Geodon Im) 20 mg 1X ONCE IM ; Start 02/10/18 at 04:00; Stop at 04:01; Status DC Multivitamins/ Minerals 10 ml/ Folic Acid 1 mg/ Thiamine HCl 100 mg/Lactated Ringer's 1,011.1 ml @ 1,000 mls/ hr 1X ONCE IV ; Start 02/10/18 at 03:45; Stop 02/10/18 at 04:45; Status DC Magnesium Hydroxide (Milk Of Magnesia) 2,400 mg 1X ONCE PO ; Start 02/10/18 at 05:30; Stop 02/10/18 at 05:32; Status DC Potassium Chloride (KCl Oral Soln) 40 meq 1X ONCE PO ; Start 02/10/18 at 05:30 ; Stop 02/10/18 at 05:32; Status DC Acetaminophen (Tylenol) 650 mg PRN Q6HRS PRN PO PAIN / TEMP Last administered on 02/16/18at 05:22; Start 02/10/18 at 06:15 Multi-Ingredient Ointment (Analgesic Horse Branch) 1 guanaco PRN QID PRN TP MUSCLE PAIN; Start 02/10/18 at 06:15 Al Hydroxide/Mg Hydroxide (Mylanta Plus Xs) 15 ml PRN AFTMEALHC PRN PO DYSPEPSIA; Start 02/10/18 at 06:15 Magnesium Hydroxide (Milk Of Magnesia) 2,400 mg PRN QHS PRN PO CONSTIPATION; Start 02/10/18 at 06:15 Influenza Virus Vaccine (Afluria Trivalent [id number] Syringe) 0.5 ml ONCE ONCE VAX IM Last administered on 02/10/18at 14:21; Start 02/10/18 at 09:00; Stop at 09:01; Status DC Vitamin D (Vitamin D3) 50,000 unit QTH PO Last administered on 02/13/18at 16:54 ; Start 02/13/18 at 16:00 Albuterol/ Ipratropium (Duoneb) 3 ml DAILY NEB Last administered on 02/16/18at 10:46; Start 02/10/18 at 09:00 Lactobacillus Rhamnosus (Culturelle) 1 cap BID PO Last administered on at 10:06; Start 02/10/18 at 09:00 Potassium Chloride (Klor-Con) 40 meq BIDWMEALS PO Last administered on at 17:03; Start 02/10/18 at 08:00 Amantadine HCl (Symmetrel) 100 mg BID PO Last administered on 02/16/18 10:07; Start 02/10/18 at 09:00 Buspirone HCl (Buspar) 10 mg 1300,1700 PO Last administered on 02/16/18at 17:03 ; Start 02/10/18 at 13:00 Buspirone HCl (Buspar) 20 mg DAILY PO Last administered on 02/16/18at 10:05; Start 02/10/18 at 09:00 Clonazepam (KlonoPIN) 1 mg TID PO Last administered on 02/16/18at 14:50; Start 02/10/18 at 09:00 Diltiazem HCl (Cardizem 24hr Cd) 120 mg DAILY PO Last administered on 10:06; Start 02/10/18 at 09:00 Furosemide (Lasix) 80 mg [id number] PO Last administered on 02/16/18 14:51; Start 02/10/18 at 09:00 Haloperidol (Haldol) 7.5 mg DAILY PO Last administered on 02/16/18 10:07; Start 02/10/18 at 09:00 Non-Formulary Medication (Haloperidol Decanoate (Haldol Decanoate 100)) 450 mg Q4WK IM ; Start 02/10/18 at 09:00; Stop 02/10/18 at 16:12; Status DC Non-Formulary Medication (Insulin Aspart (Novolog Flexpen)) see protocol TIDWMEALS SQ ; Start 02/10/18 at 08:00; Status UNV Magnesium Oxide (Magnesium Oxide) 400 mg BID PO Last administered on 02/16/18 10:07; Start 02/10/18 at 09:00 Metformin HCl (Glucophage) 500 mg BIDWMEALS PO Last administered on 02/16/18 17:03; Start 02/10/18 at 08:00 Metolazone (Zaroxolyn) 5 mg DAILY PO Last administered on 02/16/18 10:07; Start 02/10/18 at 09:00 Mirtazapine (Remeron) 15 mg QHS PO Last administered on 02/15/18 19:24; Start 02/10/18 at 21:00 Pioglitazone HCl (Actos) 15 mg DAILY PO Last administered on 02/16/18 10:05; Start 02/10/18 at 09:00 Trazodone HCl (Desyrel) 25 mg TID@0900,1300,1700 PO Last administered on 17:03; Start 02/10/18 at 09:00 Valproic Acid (Depakene) 750 mg TID PO Last administered on 02/16/18 14:51; Start 02/10/18 at 09:00 Insulin Human Lispro (HumaLOG) 0-9 UNITS TIDWMEALS SQ Last administered on 02/16 17:06; Start 02/10/18 at 08:00 Dextrose 12.5 gm PRN Q15MIN PRN IV SEE COMMENTS; Start 02/10/18 at 06:30 Olanzapine (ZyPREXA ZYDIS) 5 mg PRN Q2HR PRN PO PSYCHOSIS Last administered on 02/16/18at 17:03; Start 02/10/18 at 06:45 Haloperidol Decanoate (Haldol Decanoate Im Extended Release) 450 mg Q4WK IM ; Start 03/10/18 at 09:00 Trazodone HCl (Desyrel) 25 mg STK-MED ONCE .ROUTE ; Start 02/10/18 at 09:00; Stop 02/11/18 at 10:03; Status DC Trazodone HCl (Desyrel) 25 mg STK-MED ONCE .ROUTE ; Start 02/10/18 at 09:00; Stop 02/11/18 at 10:03; Status DC Trazodone HCl (Desyrel) 25 mg STK-MED ONCE .ROUTE ; Start 02/10/18 at 09:00; Stop 02/11/18 at 10:03; Status DC Trazodone HCl (Desyrel) 25 mg STK-MED ONCE .ROUTE ; Start 02/11/18 at 09:00; Stop 02/11/18 at 10:04; Status DC Clozapine (Clozaril) 25 mg HS PO Last administered on 02/15/18at 19:25; Start at 21:00 Nystatin (Nystop) 1 guanaco BID TP Last administered on 02/16/18at 10:07; Start at 09:00 Trazodone HCl (Desyrel) 100 mg PRN QHS PRN PO INSOMNIA, MAY REPEAT X1; Start at 17:00 Active Scripts Active Reported Duoneb 0.5-3(2.5) Mg/3 Ml (Albuterol/Ipratropium) 3 Ml Ampul.neb 3 Ml NEB DAILY Zyprexa Zydis (Olanzapine) 5 Mg Tab.rapdis 5 Mg PO PRN Q2HR PRN Buspirone Hcl 10 Mg Tablet 10 Mg PO BID@1300,1700 Valproic Acid (Valproate Sodium) 250 Mg/5 Ml Solution 750 Mg PO TID Novolog Flexpen (Insulin Aspart) 100 Unit/1 Ml Insuln.pen 0-9 Unit SQ TIDWMEALS <70 follow hypoglycemic protocol 70-150 0units if eating/ 0 if not eating 151-200 4 units if eating/ 0 units if not eating 201-250 5 units if eating/ 3 units if not eating 251-300 7 units if eating/ 4 units if not eating 301-350 9 units if eating/ 5 units if not eating > 351 Call Physician for futher orders Trazodone Hcl 100 Mg Tablet 200 Mg PO PRN QHS PRN Trazodone Hcl 50 Mg Tablet 25 Mg PO TID@0900,1300,1700 Culturelle (Lactobacillus Rhamnosus Gg) 1 Each Cap.sprink 1 Each PO BID Haloperidol 5 Mg Tablet 7.5 Mg PO DAILY Tylenol (Acetaminophen) 325 Mg Tablet 650 Mg PO PRN Q6HRS PRN Buspirone Hcl 10 Mg Tablet 20 Mg PO DAILY Theophylline Anhydrous 200 Mg Tab.er.12h 200 Mg PO BID Metolazone 5 Mg Tablet 5 Mg PO DAILY Metformin Hcl 500 Mg Tablet 500 Mg PO BIDWMEALS Cardizem Tablet (Diltiazem Hcl) 120 Mg Tablet 120 Mg PO DAILY Amantadine (Amantadine Hcl) 100 Mg Tablet 100 Mg PO BID Actos (Pioglitazone Hcl) 15 Mg Tablet 15 Mg PO DAILY Mirtazapine 15 Mg Tablet 15 Mg PO QHS Haldol Decanoate 100 (Haloperidol Decanoate) 100 Mg/1 Ml Ampul 450 Mg IM Q4WK Klor-Con M20 (Potassium Chloride) 20 Meq Tab.er.prt 40 Meq PO BIDWMEALS Analgesic Horse [place] (Methyl Salicylate/Menthol) 28 Gm Oint...g. 1 Guanaco TP PRN QID PRN Magnesium Oxide 400 Mg Tablet 400 Mg PO BID Milk Of Magnesia (Magnesium Hydroxide) 2,400 Mg/10 Ml Oral.susp 2,400 Mg PO PRN QHS PRN Maalox Advanced Suspension (Mag Hydrox/Aluminum Hyd/Simeth) 355 Ml Oral.susp 15 Ml PO PRN AFTMEALHC PRN D3-50 (Cholecalciferol (Vitamin D3)) 50,000 Unit Capsule 50,000 Unit PO QTH Clonazepam 1 Mg Tablet 1 Mg PO TID Furosemide 40 Mg Tablet 80 Mg PO [id number] Hold for SBP less than 100. After held dose, reassess in 2 hours. If SBP is above threshold, administer dose as ordered. If SBP is below threshold, contact provider for additional instructions. I have reviewed the current psychotropics carefully including drug interactions. Risk benefit ratio favors no change other than as noted in my dictated progress note. Diagnosis: Problems: (1) Depression (2) Schizoaffective disorder (3) Anxiety disorder (4) Impulse control disorder (5) Schizoaffective disorder, chronic condition with acute exacerbation KALIN STARKS MD Feb 16, 2018 21:11
[2018-02-16] MEDS: MIRTAZAPINE 15 MG TABLET PO SCH (21:13)
[2018-02-16] MEDS: cloZAPine 25 MG TABLET PO SCH (21:13)
[2018-02-16] MEDS: traZODone 100 MG TABLET. PO SCH (23:14)
[2018-02-17 06:15] VITALS: BP 102/59
[2018-02-17 07:06] LABS: BASO % 1 % (0-3); EOS # 0.1 x10^3/uL (0.0-0.7); EOS % 2 % (0-3); HEMATOCRIT 35.5 % (36.0-47.0); HEMOGLOBIN 11.3 g/dL (12.0-15.5); LYMPH # 1.8 x10^3/uL (1.0-4.8); LYMPH % 30 % (24-48); MEAN CORPUSCULAR HEMOGLOBIN 28 pg (25-35); MEAN CORPUSCULAR HGB CONC 32 g/dL (31-37); MEAN CORPUSCULAR VOLUME 87 fL (79-100); MONO # 0.6 x10^3/uL (0.0-1.1); MONO % 9 % (0-9); NEUT # 3.6 x10^3uL (1.8-7.7); NEUT % 59 % (31-73); PLATELET COUNT 184 x10^3/uL (140-400); RED BLOOD COUNT 4.07 x10^6/uL (3.50-5.40); RED CELL DISTRIBUTION WIDTH 16.6 % (11.5-14.5); WHITE BLOOD COUNT 6.2 x10^3/uL (4.0-11.0)
[2018-02-17 07:23] LABS: ALBUMIN 2.8 g/dL (3.4-5.0); ALBUMIN/GLOBULIN RATIO 0.6 (1.0-1.7); CALCIUM 9.4 mg/dL (8.5-10.1); CREATININE 1.3 mg/dL (0.6-1.0); GFR 50.1; POTASSIUM 3.6 mmol/L (3.5-5.1); TOTAL BILIRUBIN 0.1 mg/dL (0.2-1.0); TOTAL PROTEIN 7.4 g/dL (6.4-8.2)
[2018-02-17] MEDS: HALOPERIDOL 5 MG TABLET PO SCH (09:32)
[2018-02-17] MEDS: PIOGLITAZONE 15 MG TABLET. PO SCH (09:33)
[2018-02-17] MEDS: POTASSIUM CHLORIDE 20 MEQ TABLET.ER. PO SCH ×2 (09:34→18:28)
[2018-02-17] MEDS: LACTOBACILLUS RHAMNOSUS GG 1 CAPSULE. PO SCH ×2 (09:34→21:01)
[2018-02-17] MEDS: FUROSEMIDE 80 MG TABLET PO SCH ×2 (09:34→13:48)
[2018-02-17] MEDS: metFORMIN 500 MG TABLET PO SCH ×2 (09:35→18:29)
[2018-02-17] MEDS: VALPROIC ACID 250 MG CAPSULE. PO SCH ×4 (09:35→21:01)
[2018-02-17] MEDS: MAGNESIUM OXIDE 400 MG TABLET PO SCH ×2 (09:35→21:01)
[2018-02-17] MEDS: busPIRone 10 MG TABLET. PO SCH ×3 (09:35→18:29)
[2018-02-17] MEDS: NYSTATIN TOPICAL POWDER 15GM BOTTLE. TP SCH ×2 (09:36→21:03)
[2018-02-17] MEDS: traZODone 50 MG TABLET. PO SCH ×3 (09:36→18:27)
[2018-02-17] MEDS: INSULIN LISPRO 300 UNITS/3 ML INSULN.PEN. SQ SCH ×3 (09:42→18:32)
[2018-02-17] MEDS: clonazePAM 1 MG TABLET PO SCH ×3 (09:50→21:02)
[2018-02-17] MEDS: metOLazone 5 MG TABLET PO SCH (09:52)
[2018-02-17] MEDS: AMANTADINE HCL 100 MG CAPSULE PO SCH ×2 (09:52→21:00)
[2018-02-17] MEDS: IPRATRPIUM/ALBUTEROL 0.5/2.5MG 3 ML NEBU. NEB SCH (10:56)
[2018-02-17 16:18] VITALS: BP 107/63
[2018-02-17] MEDS: MIRTAZAPINE 15 MG TABLET PO SCH (21:01)
[2018-02-17] MEDS: cloZAPine 25 MG TABLET PO SCH (21:02)
[2018-02-17] MEDS: traZODone 100 MG TABLET. PO SCH (21:02)
--- NOTE | 2018-02-17 22:48 | PN ---
DATE: 02/15/2018 This is a late entry for 02/15/2018 covers elements not covered in my initial note. SUBJECTIVE: I met with the patient in the evening. The patient slept 6 hours previous night, somewhat sedated during the day, meds were held. She refused her bedtime medications. She was aggressive during shower time, tried to refuse her meds in the morning. REVIEW OF SYSTEMS: Ambulation impaired, in wheelchair. No CV, , pulmonary, eye system symptoms on review. MENTAL STATUS EXAM: Oriented to herself and situation. Speech coherent, can be loud. Abstraction fair, computation impaired. Mood and affect remains labile. LABORATORY DATA: Reviewed. IMPRESSION: Unchanged from initial note. PLAN: No change from initial note. MAN Mary STARKS MD DR: TRACIE/karli JOB#: [id number] / [id number]
--- NOTE | 2018-02-17 22:50 | PN ---
DATE: 02/16/2018 This is a late entry for 02/16/2018 covers elements not covered in my initial note. SUBJECTIVE: I met with the patient in the evening in her room. She was in the restroom, needed assistance from nursing staff, was trying to move from the wheelchair to the toilet and I asked the nursing staff and they assisted her. She slept just 4-1/4 hours previous night, was hitting at nursing staff, refused amantadine. REVIEW OF SYSTEMS: Ambulation impaired. No CV, , pulmonary, eye system symptoms on review. She could be loud, demanding, yelling at times, less psychotic. MENTAL STATUS EXAM: Oriented to herself and situation. Speech is coherent, loud at times. Abstraction fair, computation impaired, language function intact. Mood and affect still somewhat labile. LABORATORY DATA: Reviewed. IMPRESSION: Unchanged from initial note. PLAN: Start trazodone 100 mg at bedtime, september repeat x 1 for insomnia. Rest unchanged. MAN Mary STARKS MD DR: TRACIE/karli JOB#: [id number] / [id number]
--- NOTE | 2018-02-17 22:53 | PDOC ---
Exam Note: Napoleon Note: Please also refer to the separate dictated note~for this date of service dictated separately.~Patient seen individually. Discussed the patient with Nursing staff reviewed the chart.~Reviewed interim history and current functioning. Reviewed vital signs,~Labs/ Radiology~and current medications noted below. Continue current treatment with the changes noted in the dictated addendum note Assessment: Vital Signs: Vital Signs Date Time Temp Pulse Resp B/P (MAP) Pulse Ox O2 Delivery O2 Flow Rate FiO2 02/17/18 16:18 97.5 95 20 107/63 (78) 97 Room Air I&O Intake and Output 02/17/18 07:00 Intake Total 1680 ml Balance 1680 ml Intake Oral 1680 ml Labs: Laboratory Tests Test 02/17/18 06:40 02/17/18 07:48 02/17/18 11:09 02/17/18 16:37 White Blood Count 6.2 x10^3/uL (4.0-11.0) Red Blood Count 4.07 x10^6/uL (3.50-5.40) Hemoglobin 11.3 g/dL (12.0-15.5) L Hematocrit 35.5 % (36.0-47.0) L Mean Corpuscular Volume 87 fL (79-100) Mean Corpuscular Hemoglobin 28 pg (25-35) Mean Corpuscular Hemoglobin Concent 32 g/dL (31-37) Red Cell Distribution Width 16.6 % (11.5-14.5) H Platelet Count 184 x10^3/uL (140-400) Neutrophils (%) (Auto) 59 % (31-73) Lymphocytes (%) (Auto) 30 % (24-48) Monocytes (%) (Auto) 9 % (0-9) Eosinophils (%) (Auto) 2 % (0-3) Basophils (%) (Auto) 1 % (0-3) Neutrophils # (Auto) 3.6 x10^3uL (1.8-7.7) Lymphocytes # (Auto) 1.8 x10^3/uL (1.0-4.8) Monocytes # (Auto) 0.6 x10^3/uL (0.0-1.1) Eosinophils # (Auto) 0.1 x10^3/uL (0.0-0.7) Basophils # (Auto) 0.0 x10^3/uL (0.0-0.2) Sodium Level 140 mmol/L (136-145) Potassium Level 3.6 mmol/L (3.5-5.1) Chloride Level 96 mmol/L (98-107) L Carbon Dioxide Level 44 mmol/L (21-32) H Anion Gap 0 (6-14) L Blood Urea Nitrogen 35 mg/dL (7-20) H Creatinine 1.3 mg/dL (0.6-1.0) H Estimated GFR (Cockcroft-Gault) 50.1 BUN/Creatinine Ratio 27 (6-20) H Glucose Level 174 mg/dL (70-99) H Calcium Level 9.4 mg/dL (8.5-10.1) Magnesium Level 2.0 mg/dL (1.8-2.4) Total Bilirubin 0.1 mg/dL (0.2-1.0) L Aspartate Amino Transferase (AST) 10 U/L (15-37) L Alanine Aminotransferase (ALT) 16 U/L (14-59) Alkaline Phosphatase 103 U/L (46-116) Total Protein 7.4 g/dL (6.4-8.2) Albumin 2.8 g/dL (3.4-5.0) L Albumin/Globulin Ratio 0.6 (1.0-1.7) L Glucose (Fingerstick) 146 mg/dL (70-99) H 184 mg/dL (70-99) H 148 mg/dL (70-99) H Test 02/17/18 19:57 Glucose (Fingerstick) 150 mg/dL (70-99) H Current Medications: Meds: Current Medications Lorazepam (Ativan) 2 mg 1X ONCE IM ; Start 02/10/18 at 04:00; Stop 02/10/18 at 04:01; Status DC Diphenhydramine HCl (Benadryl) 50 mg 1X ONCE IM ; Start 02/10/18 at 04:00; Stop 02/10/18 at 04:01; Status DC Ziprasidone (Geodon Im) 20 mg 1X ONCE IM ; Start 02/10/18 at 04:00; Stop at 04:01; Status DC Multivitamins/ Minerals 10 ml/ Folic Acid 1 mg/ Thiamine HCl 100 mg/Lactated Ringer's 1,011.1 ml @ 1,000 mls/ hr 1X ONCE IV ; Start 02/10/18 at 03:45; Stop 02/10/18 at 04:45; Status DC Magnesium Hydroxide (Milk Of Magnesia) 2,400 mg 1X ONCE PO ; Start 02/10/18 at 05:30; Stop 02/10/18 at 05:32; Status DC Potassium Chloride (KCl Oral Soln) 40 meq 1X ONCE PO ; Start 02/10/18 at 05:30 ; Stop 02/10/18 at 05:32; Status DC Acetaminophen (Tylenol) 650 mg PRN Q6HRS PRN PO PAIN / TEMP Last administered on 02/16/18at 05:22; Start 02/10/18 at 06:15 Multi-Ingredient Ointment (Analgesic Pollock) 1 guanaco PRN QID PRN TP MUSCLE PAIN; Start 02/10/18 at 06:15 Al Hydroxide/Mg Hydroxide (Mylanta Plus Xs) 15 ml PRN AFTMEALHC PRN PO DYSPEPSIA; Start 02/10/18 at 06:15 Magnesium Hydroxide (Milk Of Magnesia) 2,400 mg PRN QHS PRN PO CONSTIPATION; Start 02/10/18 at 06:15 Influenza Virus Vaccine (Afluria Trivalent [id number] Syringe) 0.5 ml ONCE ONCE VAX IM Last administered on 02/10/18at 14:21; Start 02/10/18 at 09:00; Stop at 09:01; Status DC Vitamin D (Vitamin D3) 50,000 unit QTH PO Last administered on 02/13/18at 16:54 ; Start 02/13/18 at 16:00 Albuterol/ Ipratropium (Duoneb) 3 ml DAILY NEB Last administered on 02/17/18at 10:56; Start 02/10/18 at 09:00 Lactobacillus Rhamnosus (Culturelle) 1 cap BID PO Last administered on at 21:01; Start 02/10/18 at 09:00 Potassium Chloride (Klor-Con) 40 meq BIDWMEALS PO Last administered on at 18:28; Start 02/10/18 at 08:00 Amantadine HCl (Symmetrel) 100 mg BID PO Last administered on 02/17/18at 09:52; Start 02/10/18 at 09:00 Buspirone HCl (Buspar) 10 mg 1300,1700 PO Last administered on 02/17/18 18:29 ; Start 02/10/18 at 13:00 Buspirone HCl (Buspar) 20 mg DAILY PO Last administered on 02/17/18 09:35; Start 02/10/18 at 09:00 Clonazepam (KlonoPIN) 1 mg TID PO Last administered on 02/17/18 21:02; Start 02/10/18 at 09:00 Diltiazem HCl (Cardizem 24hr Cd) 120 mg DAILY PO Last administered on 09:34; Start 02/10/18 at 09:00 Furosemide (Lasix) 80 mg BID92 PO Last administered on 02/17/18 13:48; Start 02/10/18 at 09:00 Haloperidol (Haldol) 7.5 mg DAILY PO Last administered on 02/17/18 09:32; Start 02/10/18 at 09:00 Non-Formulary Medication (Haloperidol Decanoate (Haldol Decanoate 100)) 450 mg Q4WK IM ; Start 02/10/18 at 09:00; Stop 02/10/18 at 16:12; Status DC Non-Formulary Medication (Insulin Aspart (Novolog Flexpen)) see protocol TIDWMEALS SQ ; Start 02/10/18 at 08:00; Status UNV Magnesium Oxide (Magnesium Oxide) 400 mg BID PO Last administered on 02/17/18 21:01; Start 02/10/18 at 09:00 Metformin HCl (Glucophage) 500 mg BIDWMEALS PO Last administered on 02/17/18 18:29; Start 02/10/18 at 08:00 Metolazone (Zaroxolyn) 5 mg DAILY PO Last administered on 02/17/18 09:52; Start 02/10/18 at 09:00 Mirtazapine (Remeron) 15 mg QHS PO Last administered on 02/17/18 21:01; Start 02/10/18 at 21:00 Pioglitazone HCl (Actos) 15 mg DAILY PO Last administered on 02/17/18 09:33; Start 02/10/18 at 09:00 Trazodone HCl (Desyrel) 25 mg TID@0900,1300,1700 PO Last administered on at 18:27; Start 02/10/18 at 09:00 Valproic Acid (Depakene) 750 mg TID PO Last administered on 02/17/18at 21:01; Start 02/10/18 at 09:00 Insulin Human Lispro (HumaLOG) 0-9 UNITS TIDWMEALS SQ Last administered on 02/17at 18:32; Start 02/10/18 at 08:00 Dextrose 12.5 gm PRN Q15MIN PRN IV SEE COMMENTS; Start 02/10/18 at 06:30 Olanzapine (ZyPREXA ZYDIS) 5 mg PRN Q2HR PRN PO PSYCHOSIS Last administered on 02/16/18at 17:03; Start 02/10/18 at 06:45 Haloperidol Decanoate (Haldol Decanoate Im Extended Release) 450 mg Q4WK IM ; Start 03/10/18 at 09:00 Trazodone HCl (Desyrel) 25 mg STK-MED ONCE .ROUTE ; Start 02/10/18 at 09:00; Stop 02/11/18 at 10:03; Status DC Trazodone HCl (Desyrel) 25 mg STK-MED ONCE .ROUTE ; Start 02/10/18 at 09:00; Stop 02/11/18 at 10:03; Status DC Trazodone HCl (Desyrel) 25 mg STK-MED ONCE .ROUTE ; Start 02/10/18 at 09:00; Stop 02/11/18 at 10:03; Status DC Trazodone HCl (Desyrel) 25 mg STK-MED ONCE .ROUTE ; Start 02/11/18 at 09:00; Stop 02/11/18 at 10:04; Status DC Clozapine (Clozaril) 25 mg HS PO Last administered on 02/16/18at 21:13; Start at 21:00; Stop 02/17/18 at 17:40; Status DC Nystatin (Nystop) 1 guanaco BID TP Last administered on 02/17/18at 21:03; Start at 09:00 Trazodone HCl (Desyrel) 100 mg PRN QHS PRN PO INSOMNIA, MAY REPEAT X1; Start at 17:00; Stop 02/16/18 at 22:42; Status DC Trazodone HCl (Desyrel) 100 mg QHS PO Last administered on 02/17/18at 21:02; Start 02/16/18 at 23:00 Trazodone HCl (Desyrel) 100 mg PRN QHS PRN PO insomnia ; Start 02/16/18 at 22: 45 Clozapine (Clozaril) 50 mg HS PO Last administered on 02/17/18at 21:02; Start at 21:00 Active Scripts Active Reported Duoneb 0.5-3(2.5) Mg/3 Ml (Albuterol/Ipratropium) 3 Ml Ampul.neb 3 Ml NEB DAILY Zyprexa Zydis (Olanzapine) 5 Mg Tab.rapdis 5 Mg PO PRN Q2HR PRN Buspirone Hcl 10 Mg Tablet 10 Mg PO BID@1300,1700 Valproic Acid (Valproate Sodium) 250 Mg/5 Ml Solution 750 Mg PO TID Novolog Flexpen (Insulin Aspart) 100 Unit/1 Ml Insuln.pen 0-9 Unit SQ TIDWMEALS <70 follow hypoglycemic protocol 70-150 0units if eating/ 0 if not eating 151-200 4 units if eating/ 0 units if not eating 201-250 5 units if eating/ 3 units if not eating 251-300 7 units if eating/ 4 units if not eating 301-350 9 units if eating/ 5 units if not eating > 351 Call Physician for futher orders Trazodone Hcl 100 Mg Tablet 200 Mg PO PRN QHS PRN Trazodone Hcl 50 Mg Tablet 25 Mg PO TID@0900,1300,1700 Culturelle (Lactobacillus Rhamnosus Gg) 1 Each Cap.sprink 1 Each PO BID Haloperidol 5 Mg Tablet 7.5 Mg PO DAILY Tylenol (Acetaminophen) 325 Mg Tablet 650 Mg PO PRN Q6HRS PRN Buspirone Hcl 10 Mg Tablet 20 Mg PO DAILY Theophylline Anhydrous 200 Mg Tab.er.12h 200 Mg PO BID Metolazone 5 Mg Tablet 5 Mg PO DAILY Metformin Hcl 500 Mg Tablet 500 Mg PO BIDWMEALS Cardizem Tablet (Diltiazem Hcl) 120 Mg Tablet 120 Mg PO DAILY Amantadine (Amantadine Hcl) 100 Mg Tablet 100 Mg PO BID Actos (Pioglitazone Hcl) 15 Mg Tablet 15 Mg PO DAILY Mirtazapine 15 Mg Tablet 15 Mg PO QHS Haldol Decanoate 100 (Haloperidol Decanoate) 100 Mg/1 Ml Ampul 450 Mg IM Q4WK Klor-Con M20 (Potassium Chloride) 20 Meq Tab.er.prt 40 Meq PO BIDWMEALS Analgesic Pollock (Methyl Salicylate/Menthol) 28 Gm Oint...g. 1 Guanaco TP PRN QID PRN Magnesium Oxide 400 Mg Tablet 400 Mg PO BID Milk Of Magnesia (Magnesium Hydroxide) 2,400 Mg/10 Ml Oral.susp 2,400 Mg PO PRN QHS PRN Maalox Advanced Suspension (Mag Hydrox/Aluminum Hyd/Simeth) 355 Ml Oral.susp 15 Ml PO PRN AFTMEALHC PRN D3-50 (Cholecalciferol (Vitamin D3)) 50,000 Unit Capsule 50,000 Unit PO QTH Clonazepam 1 Mg Tablet 1 Mg PO TID Furosemide 40 Mg Tablet 80 Mg PO [id number] Hold for SBP less than 100. After held dose, reassess in 2 hours. If SBP is above threshold, administer dose as ordered. If SBP is below threshold, contact provider for additional instructions. I have reviewed the current psychotropics carefully including drug interactions. Risk benefit ratio favors no change other than as noted in my dictated progress note. Diagnosis: Problems: (1) Depression (2) Schizoaffective disorder (3) Anxiety disorder (4) Impulse control disorder (5) Schizoaffective disorder, chronic condition with acute exacerbation KALIN STARKS MD Feb 17, 2018 22:53
[2018-02-18 05:55] VITALS: BP 139/80
[2018-02-18] MEDS: NYSTATIN TOPICAL POWDER 15GM BOTTLE. TP SCH ×2 (08:11→19:46)
[2018-02-18] MEDS: INSULIN LISPRO 300 UNITS/3 ML INSULN.PEN. SQ SCH ×3 (08:11→17:57)
[2018-02-18] MEDS: metOLazone 5 MG TABLET PO SCH (08:12)
[2018-02-18] MEDS: FUROSEMIDE 80 MG TABLET PO SCH ×2 (08:12→12:16)
[2018-02-18] MEDS: AMANTADINE HCL 100 MG CAPSULE PO SCH ×2 (08:12→19:47)
[2018-02-18] MEDS: PIOGLITAZONE 15 MG TABLET. PO SCH (08:12)
[2018-02-18] MEDS: MAGNESIUM OXIDE 400 MG TABLET PO SCH ×2 (08:12→19:45)
[2018-02-18] MEDS: busPIRone 10 MG TABLET. PO SCH ×3 (08:13→17:47)
[2018-02-18] MEDS: LACTOBACILLUS RHAMNOSUS GG 1 CAPSULE. PO SCH ×2 (08:13→19:46)
[2018-02-18] MEDS: POTASSIUM CHLORIDE 20 MEQ TABLET.ER. PO SCH ×2 (08:14→17:47)
[2018-02-18] MEDS: metFORMIN 500 MG TABLET PO SCH ×2 (08:14→17:47)
[2018-02-18] MEDS: HALOPERIDOL 5 MG TABLET PO SCH (08:14)
[2018-02-18] MEDS: traZODone 50 MG TABLET. PO SCH ×3 (08:22→17:48)
[2018-02-18] MEDS: clonazePAM 1 MG TABLET PO SCH ×3 (08:23→19:47)
[2018-02-18] MEDS: DIVALPROEX 125 MG CAP.SPRINK PO SCH ×3 (08:25→19:45)
[2018-02-18] MEDS: IPRATRPIUM/ALBUTEROL 0.5/2.5MG 3 ML NEBU. NEB SCH (11:34)
[2018-02-18 15:49] VITALS: BP 125/68
[2018-02-18] MEDS: traZODone 100 MG TABLET. PO SCH (19:45)
[2018-02-18] MEDS: cloZAPine 25 MG TABLET PO SCH (19:45)
[2018-02-18] MEDS: MAGNESIUM HYDROXIDE 2,400 MG/30 ML ORAL.SUSP. PO PRN (19:46)
[2018-02-18] MEDS: MIRTAZAPINE 15 MG TABLET PO SCH (19:46)
--- NOTE | 2018-02-18 21:03 | PDOC ---
Exam Note: [facility] Note: Please also refer to the separate dictated note~for this date of service dictated separately.~Patient seen individually. Discussed the patient with Nursing staff reviewed the chart.~Reviewed interim history and current functioning. Reviewed vital signs,~Labs/ Radiology~and current medications noted below. Continue current treatment with the changes noted in the dictated addendum note Assessment: Vital Signs: Vital Signs Date Time Temp Pulse Resp B/P (MAP) Pulse Ox O2 Delivery O2 Flow Rate FiO2 02/18/18 15:49 97.2 86 20 125/68 (87) 94 Room Air I&O Intake and Output 02/18/18 07:00 Intake Total 1440 ml Balance 1440 ml Intake Oral 1440 ml Labs: Laboratory Tests Test 02/18/18 07:17 02/18/18 11:19 02/18/18 16:30 02/18/18 19:19 Glucose (Fingerstick) 155 mg/dL (70-99) H 244 mg/dL (70-99) H 190 mg/dL (70-99) H 243 mg/dL (70-99) H Current Medications: Meds: Current Medications Lorazepam (Ativan) 2 mg 1X ONCE IM ; Start 02/10/18 at 04:00; Stop 02/10/18 at 04:01; Status DC Diphenhydramine HCl (Benadryl) 50 mg 1X ONCE IM ; Start 02/10/18 at 04:00; Stop 02/10/18 at 04:01; Status DC Ziprasidone (Geodon Im) 20 mg 1X ONCE IM ; Start 02/10/18 at 04:00; Stop at 04:01; Status DC Multivitamins/ Minerals 10 ml/ Folic Acid 1 mg/ Thiamine HCl 100 mg/Lactated Ringer's 1,011.1 ml @ 1,000 mls/ hr 1X ONCE IV ; Start 02/10/18 at 03:45; Stop 02/10/18 at 04:45; Status DC Magnesium Hydroxide (Milk Of Magnesia) 2,400 mg 1X ONCE PO ; Start 02/10/18 at 05:30; Stop 02/10/18 at 05:32; Status DC Potassium Chloride (KCl Oral Soln) 40 meq 1X ONCE PO ; Start 02/10/18 at 05:30 ; Stop 02/10/18 at 05:32; Status DC Acetaminophen (Tylenol) 650 mg PRN Q6HRS PRN PO PAIN / TEMP Last administered on 02/16/18 05:22; Start 02/10/18 at 06:15 Multi-Ingredient Ointment (Analgesic Whitefish) 1 guanaco PRN QID PRN TP MUSCLE PAIN; Start 02/10/18 at 06:15 Al Hydroxide/Mg Hydroxide (Mylanta Plus Xs) 15 ml PRN AFTMEALHC PRN PO DYSPEPSIA; Start 02/10/18 at 06:15 Magnesium Hydroxide (Milk Of Magnesia) 2,400 mg PRN QHS PRN PO CONSTIPATION Last administered on 02/18/18 19:46; Start 02/10/18 at 06:15 Influenza Virus Vaccine (Afluria Trivalent 6254-1296 Syringe) 0.5 ml ONCE ONCE VAX IM Last administered on 02/10/18at 14:21; Start 02/10/18 at 09:00; Stop at 09:01; Status DC Vitamin D (Vitamin D3) 50,000 unit QTH PO Last administered on 02/13/18at 16:54 ; Start 02/13/18 at 16:00 Albuterol/ Ipratropium (Duoneb) 3 ml DAILY NEB Last administered on 02/18/18 11:34; Start 02/10/18 at 09:00 Lactobacillus Rhamnosus (Culturelle) 1 cap BID PO Last administered on 19:46; Start 02/10/18 at 09:00 Potassium Chloride (Klor-Con) 40 meq BIDWMEALS PO Last administered on at 17:47; Start 02/10/18 at 08:00 Amantadine HCl (Symmetrel) 100 mg BID PO Last administered on 02/18/18 19:47; Start 02/10/18 at 09:00 Buspirone HCl (Buspar) 10 mg 1300,1700 PO Last administered on 02/18/18 17:47 ; Start 02/10/18 at 13:00 Buspirone HCl (Buspar) 20 mg DAILY PO Last administered on 02/18/18 08:13; Start 02/10/18 at 09:00 Clonazepam (KlonoPIN) 1 mg TID PO Last administered on 02/18/18 19:47; Start 02/10/18 at 09:00 Diltiazem HCl (Cardizem 24hr Cd) 120 mg DAILY PO Last administered on 08:12; Start 02/10/18 at 09:00 Furosemide (Lasix) 80 mg BID92 PO Last administered on 02/18/18 12:16; Start 02/10/18 at 09:00 Haloperidol (Haldol) 7.5 mg DAILY PO Last administered on 02/18/18 08:14; Start 02/10/18 at 09:00 Non-Formulary Medication (Haloperidol Decanoate (Haldol Decanoate 100)) 450 mg Q4WK IM ; Start 02/10/18 at 09:00; Stop 02/10/18 at 16:12; Status DC Non-Formulary Medication (Insulin Aspart (Novolog Flexpen)) see protocol TIDWMEALS SQ ; Start 02/10/18 at 08:00; Status UNV Magnesium Oxide (Magnesium Oxide) 400 mg BID PO Last administered on 02/18/18at 19:45; Start 02/10/18 at 09:00 Metformin HCl (Glucophage) 500 mg BIDWMEALS PO Last administered on 02/18/18 17:47; Start 02/10/18 at 08:00 Metolazone (Zaroxolyn) 5 mg DAILY PO Last administered on 02/18/18 08:12; Start 02/10/18 at 09:00 Mirtazapine (Remeron) 15 mg QHS PO Last administered on 02/18/18at 19:46; Start 02/10/18 at 21:00 Pioglitazone HCl (Actos) 15 mg DAILY PO Last administered on 02/18/18 08:12; Start 02/10/18 at 09:00 Trazodone HCl (Desyrel) 25 mg TID@0900,1300,1700 PO Last administered on 17:48; Start 02/10/18 at 09:00 Valproic Acid (Depakene) 750 mg TID PO Last administered on 02/17/18at 21:01; Start 02/10/18 at 09:00; Stop 02/18/18 at 08:06; Status DC Insulin Human Lispro (HumaLOG) 0-9 UNITS TIDWMEALS SQ Last administered on 02/18at 17:57; Start 02/10/18 at 08:00 Dextrose 12.5 gm PRN Q15MIN PRN IV SEE COMMENTS; Start 02/10/18 at 06:30 Olanzapine (ZyPREXA ZYDIS) 5 mg PRN Q2HR PRN PO PSYCHOSIS Last administered on 02/16/18at 17:03; Start 02/10/18 at 06:45 Haloperidol Decanoate (Haldol Decanoate Im Extended Release) 450 mg Q4WK IM ; Start 03/10/18 at 09:00 Trazodone HCl (Desyrel) 25 mg STK-MED ONCE .ROUTE ; Start 02/10/18 at 09:00; Stop 02/11/18 at 10:03; Status DC Trazodone HCl (Desyrel) 25 mg STK-MED ONCE .ROUTE ; Start 02/10/18 at 09:00; Stop 02/11/18 at 10:03; Status DC Trazodone HCl (Desyrel) 25 mg STK-MED ONCE .ROUTE ; Start 02/10/18 at 09:00; Stop 02/11/18 at 10:03; Status DC Trazodone HCl (Desyrel) 25 mg STK-MED ONCE .ROUTE ; Start 02/11/18 at 09:00; Stop 02/11/18 at 10:04; Status DC Clozapine (Clozaril) 25 mg HS PO Last administered on 02/16/18at 21:13; Start at 21:00; Stop 02/17/18 at 17:40; Status DC Nystatin (Nystop) 1 guanaco BID TP Last administered on 02/18/18at 19:46; Start at 09:00 Trazodone HCl (Desyrel) 100 mg PRN QHS PRN PO INSOMNIA, MAY REPEAT X1; Start at 17:00; Stop 02/16/18 at 22:42; Status DC Trazodone HCl (Desyrel) 100 mg QHS PO Last administered on 02/18/18at 19:45; Start 02/16/18 at 23:00 Trazodone HCl (Desyrel) 100 mg PRN QHS PRN PO insomnia Last administered on at 19:46; Start 02/16/18 at 22:45 Clozapine (Clozaril) 50 mg HS PO Last administered on 02/18/18at 19:45; Start at 21:00 Divalproex Sodium (Depakote Sprinkles) 750 mg TID PO Last administered on at 19:45; Start 02/18/18 at 09:00 Active Scripts Active Reported Duoneb 0.5-3(2.5) Mg/3 Ml (Albuterol/Ipratropium) 3 Ml Ampul.neb 3 Ml NEB DAILY Zyprexa Zydis (Olanzapine) 5 Mg Tab.rapdis 5 Mg PO PRN Q2HR PRN Buspirone Hcl 10 Mg Tablet 10 Mg PO BID@1300,1700 Valproic Acid (Valproate Sodium) 250 Mg/5 Ml Solution 750 Mg PO TID Novolog Flexpen (Insulin Aspart) 100 Unit/1 Ml Insuln.pen 0-9 Unit SQ TIDWMEALS <70 follow hypoglycemic protocol 70-150 0units if eating/ 0 if not eating 151-200 4 units if eating/ 0 units if not eating 201-250 5 units if eating/ 3 units if not eating 251-300 7 units if eating/ 4 units if not eating 301-350 9 units if eating/ 5 units if not eating > 351 Call Physician for futher orders Trazodone Hcl 100 Mg Tablet 200 Mg PO PRN QHS PRN Trazodone Hcl 50 Mg Tablet 25 Mg PO TID@0900,1300,1700 Culturelle (Lactobacillus Rhamnosus Gg) 1 Each Cap.sprink 1 Each PO BID Haloperidol 5 Mg Tablet 7.5 Mg PO DAILY Tylenol (Acetaminophen) 325 Mg Tablet 650 Mg PO PRN Q6HRS PRN Buspirone Hcl 10 Mg Tablet 20 Mg PO DAILY Theophylline Anhydrous 200 Mg Tab.er.12h 200 Mg PO BID Metolazone 5 Mg Tablet 5 Mg PO DAILY Metformin Hcl 500 Mg Tablet 500 Mg PO BIDWMEALS Cardizem Tablet (Diltiazem Hcl) 120 Mg Tablet 120 Mg PO DAILY Amantadine (Amantadine Hcl) 100 Mg Tablet 100 Mg PO BID Actos (Pioglitazone Hcl) 15 Mg Tablet 15 Mg PO DAILY Mirtazapine 15 Mg Tablet 15 Mg PO QHS Haldol Decanoate 100 (Haloperidol Decanoate) 100 Mg/1 Ml Ampul 450 Mg IM Q4WK Klor-Con M20 (Potassium Chloride) 20 Meq Tab.er.prt 40 Meq PO BIDWMEALS Analgesic Whitefish (Methyl Salicylate/Menthol) 28 Gm Oint...g. 1 Guanaco TP PRN QID PRN Magnesium Oxide 400 Mg Tablet 400 Mg PO BID Milk Of Magnesia (Magnesium Hydroxide) 2,400 Mg/10 Ml Oral.susp 2,400 Mg PO PRN QHS PRN Maalox Advanced Suspension (Mag Hydrox/Aluminum Hyd/Simeth) 355 Ml Oral.susp 15 Ml PO PRN AFTMEALHC PRN D3-50 (Cholecalciferol (Vitamin D3)) 50,000 Unit Capsule 50,000 Unit PO QTH Clonazepam 1 Mg Tablet 1 Mg PO TID Furosemide 40 Mg Tablet 80 Mg PO [id number] Hold for SBP less than 100. After held dose, reassess in 2 hours. If SBP is above threshold, administer dose as ordered. If SBP is below threshold, contact provider for additional instructions. I have reviewed the current psychotropics carefully including drug interactions. Risk benefit ratio favors no change other than as noted in my dictated progress note. Diagnosis: Problems: (1) Depression (2) Schizoaffective disorder (3) Anxiety disorder (4) Impulse control disorder (5) Schizoaffective disorder, chronic condition with acute exacerbation KALIN STARKS MD Feb 18, 2018 21:03
--- NOTE | 2018-02-19 03:42 | PN ---
DATE: 02/17/2018 This is a late entry for 02/17/2018 covers elements not covered in my initial note. SUBJECTIVE: I met with the patient in the evening. The patient slept 4-1/4 hours previous night. I met with her in her room. She is again going to the restroom, needed assistance. Nursing staff intervened. She has been demanding, yelling at times, wanting ____ and is quite obsessed about this. She refuses some of her medications, later takes it crushed. REVIEW OF SYSTEMS: Ambulation impaired, in wheelchair. No CV, , pulmonary, eye, ENT system symptoms on review. MENTAL STATUS EXAM: Oriented to herself and situation. Speech moderate latency, coherent, rapid at times. Abstraction fair, computation impaired, language function intact, attention span short. Mood and affect remains somewhat labile. LABORATORY DATA: Reviewed. IMPRESSION: Schizoaffective disorder, bipolar type, mixed with psychotic features; anxiety disorder, unspecified; impulse control disorder, unspecified. PLAN: Absolute neutrophil count is satisfactory. We will increase the Clozaril from 25 mg at bedtime to 50 mg p.o. at bedtime. Continue to monitor CBC, absolute neutrophil count. Continue rest of psychotropics, unchanged from initial note. KALIN STARKS MD DR: TRACIE/karli JOB#: [id number] / [id number]
[2018-02-19 05:42] VITALS: BP 119/71
[2018-02-19] MEDS: metFORMIN 500 MG TABLET PO SCH ×3 (08:57→17:37)
[2018-02-19] MEDS: POTASSIUM CHLORIDE 20 MEQ TABLET.ER. PO SCH ×3 (08:58→17:37)
[2018-02-19] MEDS: NYSTATIN TOPICAL POWDER 15GM BOTTLE. TP SCH ×2 (09:00→21:01)
[2018-02-19] MEDS: IPRATRPIUM/ALBUTEROL 0.5/2.5MG 3 ML NEBU. NEB SCH ×2 (09:00→11:52)
[2018-02-19] MEDS: INSULIN LISPRO 300 UNITS/3 ML INSULN.PEN. SQ SCH ×3 (09:01→17:00)
[2018-02-19] MEDS: PIOGLITAZONE 15 MG TABLET. PO SCH (09:01)
[2018-02-19] MEDS: LACTOBACILLUS RHAMNOSUS GG 1 CAPSULE. PO SCH ×2 (09:02→21:01)
[2018-02-19] MEDS: busPIRone 10 MG TABLET. PO SCH ×4 (09:02→17:36)
[2018-02-19] MEDS: DIVALPROEX 125 MG CAP.SPRINK PO SCH ×3 (09:03→21:02)
[2018-02-19] MEDS: traZODone 50 MG TABLET. PO SCH ×4 (09:04→17:37)
[2018-02-19] MEDS: MAGNESIUM OXIDE 400 MG TABLET PO SCH ×2 (09:05→21:01)
[2018-02-19] MEDS: HALOPERIDOL 5 MG TABLET PO SCH (09:05)
[2018-02-19] MEDS: FUROSEMIDE 80 MG TABLET PO SCH ×2 (09:05→13:01)
[2018-02-19] MEDS: AMANTADINE HCL 100 MG CAPSULE PO SCH ×2 (09:09→21:01)
[2018-02-19] MEDS: metOLazone 5 MG TABLET PO SCH (09:09)
[2018-02-19] MEDS: clonazePAM 1 MG TABLET PO SCH ×3 (09:10→21:01)
[2018-02-19 16:33] VITALS: BP 107/71
--- NOTE | 2018-02-19 20:53 | PDOC ---
Exam Note: [facility] Note: Please also refer to the separate dictated note~for this date of service dictated separately.~Patient seen individually. Discussed the patient with Nursing staff reviewed the chart.~Reviewed interim history and current functioning. Reviewed vital signs,~Labs/ Radiology~and current medications noted below. Continue current treatment with the changes noted in the dictated addendum note Assessment: Vital Signs: Vital Signs Date Time Temp Pulse Resp B/P (MAP) Pulse Ox O2 Delivery O2 Flow Rate FiO2 02/19/18 16:33 97.3 92 20 107/71 (83) 91 02/19/18 11:52 Room Air I&O Intake and Output 02/19/18 07:00 Intake Total 1200 ml Balance 1200 ml Intake Oral 1200 ml Labs: Laboratory Tests Test 02/19/18 08:00 02/19/18 11:55 02/19/18 17:20 02/19/18 19:19 Glucose (Fingerstick) 149 mg/dL (70-99) H 147 mg/dL (70-99) H 125 mg/dL (70-99) H 212 mg/dL (70-99) H Current Medications: Meds: Current Medications Lorazepam (Ativan) 2 mg 1X ONCE IM ; Start 02/10/18 at 04:00; Stop 02/10/18 at 04:01; Status DC Diphenhydramine HCl (Benadryl) 50 mg 1X ONCE IM ; Start 02/10/18 at 04:00; Stop 02/10/18 at 04:01; Status DC Ziprasidone (Geodon Im) 20 mg 1X ONCE IM ; Start 02/10/18 at 04:00; Stop at 04:01; Status DC Multivitamins/ Minerals 10 ml/ Folic Acid 1 mg/ Thiamine HCl 100 mg/Lactated Ringer's 1,011.1 ml @ 1,000 mls/ hr 1X ONCE IV ; Start 02/10/18 at 03:45; Stop 02/10/18 at 04:45; Status DC Magnesium Hydroxide (Milk Of Magnesia) 2,400 mg 1X ONCE PO ; Start 02/10/18 at 05:30; Stop 02/10/18 at 05:32; Status DC Potassium Chloride (KCl Oral Soln) 40 meq 1X ONCE PO ; Start 02/10/18 at 05:30 ; Stop 02/10/18 at 05:32; Status DC Acetaminophen (Tylenol) 650 mg PRN Q6HRS PRN PO PAIN / TEMP Last administered on 02/16/18at 05:22; Start 02/10/18 at 06:15 Multi-Ingredient Ointment (Analgesic Stanley) 1 guanaco PRN QID PRN TP MUSCLE PAIN; Start 02/10/18 at 06:15 Al Hydroxide/Mg Hydroxide (Mylanta Plus Xs) 15 ml PRN AFTMEALHC PRN PO DYSPEPSIA; Start 02/10/18 at 06:15 Magnesium Hydroxide (Milk Of Magnesia) 2,400 mg PRN QHS PRN PO CONSTIPATION Last administered on 02/18/18 19:46; Start 02/10/18 at 06:15 Influenza Virus Vaccine (Afluria Trivalent [id number] Syringe) 0.5 ml ONCE ONCE VAX IM Last administered on 02/10/18 14:21; Start 02/10/18 at 09:00; Stop at 09:01; Status DC Vitamin D (Vitamin D3) 50,000 unit QTH PO Last administered on 02/13/18at 16:54 ; Start 02/13/18 at 16:00 Albuterol/ Ipratropium (Duoneb) 3 ml DAILY NEB Last administered on 02/19/18 11:52; Start 02/10/18 at 09:00 Lactobacillus Rhamnosus (Culturelle) 1 cap BID PO Last administered on 09:02; Start 02/10/18 at 09:00 Potassium Chloride (Klor-Con) 40 meq BIDWMEALS PO Last administered on at 08:58; Start 02/10/18 at 08:00 Amantadine HCl (Symmetrel) 100 mg BID PO Last administered on 02/19/18 09:09; Start 02/10/18 at 09:00 Buspirone HCl (Buspar) 10 mg 1300,1700 PO Last administered on 02/18/18 17:47 ; Start 02/10/18 at 13:00 Buspirone HCl (Buspar) 20 mg DAILY PO Last administered on 02/19/18 09:02; Start 02/10/18 at 09:00 Clonazepam (KlonoPIN) 1 mg TID PO Last administered on 9/26/18at 09:10; Start 02/10/18 at 09:00 Diltiazem HCl (Cardizem 24hr Cd) 120 mg DAILY PO Last administered on at 09:02; Start 02/10/18 at 09:00 Furosemide (Lasix) 80 mg BID92 PO Last administered on 02/19/18 09:05; Start 02/10/18 at 09:00 Haloperidol (Haldol) 7.5 mg DAILY PO Last administered on 02/19/18at 09:05; Start 02/10/18 at 09:00; Stop 02/19/18 at 18:16; Status DC Non-Formulary Medication (Haloperidol Decanoate (Haldol Decanoate 100)) 450 mg Q4WK IM ; Start 02/10/18 at 09:00; Stop 02/10/18 at 16:12; Status DC Non-Formulary Medication (Insulin Aspart (Novolog Flexpen)) see protocol TIDWMEALS SQ ; Start 02/10/18 at 08:00; Status UNV Magnesium Oxide (Magnesium Oxide) 400 mg BID PO Last administered on 02/19/18at 09:05; Start 02/10/18 at 09:00 Metformin HCl (Glucophage) 500 mg BIDWMEALS PO Last administered on 02/19/18at 08:57; Start 02/10/18 at 08:00 Metolazone (Zaroxolyn) 5 mg DAILY PO Last administered on 02/19/18at 09:09; Start 02/10/18 at 09:00 Mirtazapine (Remeron) 15 mg QHS PO Last administered on 02/18/18at 19:46; Start 02/10/18 at 21:00 Pioglitazone HCl (Actos) 15 mg DAILY PO Last administered on 02/19/18at 09:01; Start 02/10/18 at 09:00 Trazodone HCl (Desyrel) 25 mg TID@0900,1300,1700 PO Last administered on at 09:04; Start 02/10/18 at 09:00 Valproic Acid (Depakene) 750 mg TID PO Last administered on 02/17/18at 21:01; Start 02/10/18 at 09:00; Stop 02/18/18 at 08:06; Status DC Insulin Human Lispro (HumaLOG) 0-9 UNITS TIDWMEALS SQ Last administered on 02/19at 17:00; Start 02/10/18 at 08:00 Dextrose 12.5 gm PRN Q15MIN PRN IV SEE COMMENTS; Start 02/10/18 at 06:30 Olanzapine (ZyPREXA ZYDIS) 5 mg PRN Q2HR PRN PO PSYCHOSIS Last administered on 02/16/18at 17:03; Start 02/10/18 at 06:45 Haloperidol Decanoate (Haldol Decanoate Im Extended Release) 450 mg Q4WK IM ; Start 03/10/18 at 09:00 Trazodone HCl (Desyrel) 25 mg STK-MED ONCE .ROUTE ; Start 02/10/18 at 09:00; Stop 02/11/18 at 10:03; Status DC Trazodone HCl (Desyrel) 25 mg STK-MED ONCE .ROUTE ; Start 02/10/18 at 09:00; Stop 02/11/18 at 10:03; Status DC Trazodone HCl (Desyrel) 25 mg STK-MED ONCE .ROUTE ; Start 02/10/18 at 09:00; Stop 02/11/18 at 10:03; Status DC Trazodone HCl (Desyrel) 25 mg STK-MED ONCE .ROUTE ; Start 02/11/18 at 09:00; Stop 02/11/18 at 10:04; Status DC Clozapine (Clozaril) 25 mg HS PO Last administered on 02/16/18at 21:13; Start at 21:00; Stop 02/17/18 at 17:40; Status DC Nystatin (Nystop) 1 guanaco BID TP Last administered on 02/19/18at 09:00; Start at 09:00 Trazodone HCl (Desyrel) 100 mg PRN QHS PRN PO INSOMNIA, MAY REPEAT X1; Start at 17:00; Stop 02/16/18 at 22:42; Status DC Trazodone HCl (Desyrel) 100 mg QHS PO Last administered on 02/18/18at 19:45; Start 02/16/18 at 23:00 Trazodone HCl (Desyrel) 100 mg PRN QHS PRN PO insomnia Last administered on at 19:46; Start 02/16/18 at 22:45 Clozapine (Clozaril) 50 mg HS PO Last administered on 02/18/18at 19:45; Start at 21:00 Divalproex Sodium (Depakote Sprinkles) 750 mg TID PO Last administered on at 09:03; Start 02/18/18 at 09:00 Haloperidol (Haldol) 5 mg DAILY PO ; Start 02/20/18 at 09:00 Active Scripts Active Reported Duoneb 0.5-3(2.5) Mg/3 Ml (Albuterol/Ipratropium) 3 Ml Ampul.neb 3 Ml NEB DAILY Zyprexa Zydis (Olanzapine) 5 Mg Tab.rapdis 5 Mg PO PRN Q2HR PRN Buspirone Hcl 10 Mg Tablet 10 Mg PO BID@1300,1700 Valproic Acid (Valproate Sodium) 250 Mg/5 Ml Solution 750 Mg PO TID Novolog Flexpen (Insulin Aspart) 100 Unit/1 Ml Insuln.pen 0-9 Unit SQ TIDWMEALS <70 follow hypoglycemic protocol 70-150 0units if eating/ 0 if not eating 151-200 4 units if eating/ 0 units if not eating 201-250 5 units if eating/ 3 units if not eating 251-300 7 units if eating/ 4 units if not eating 301-350 9 units if eating/ 5 units if not eating > 351 Call Physician for futher orders Trazodone Hcl 100 Mg Tablet 200 Mg PO PRN QHS PRN Trazodone Hcl 50 Mg Tablet 25 Mg PO TID@0900,1300,1700 Culturelle (Lactobacillus Rhamnosus Gg) 1 Each Cap.sprink 1 Each PO BID Haloperidol 5 Mg Tablet 7.5 Mg PO DAILY Tylenol (Acetaminophen) 325 Mg Tablet 650 Mg PO PRN Q6HRS PRN Buspirone Hcl 10 Mg Tablet 20 Mg PO DAILY Theophylline Anhydrous 200 Mg Tab.er.12h 200 Mg PO BID Metolazone 5 Mg Tablet 5 Mg PO DAILY Metformin Hcl 500 Mg Tablet 500 Mg PO BIDWMEALS Cardizem Tablet (Diltiazem Hcl) 120 Mg Tablet 120 Mg PO DAILY Amantadine (Amantadine Hcl) 100 Mg Tablet 100 Mg PO BID Actos (Pioglitazone Hcl) 15 Mg Tablet 15 Mg PO DAILY Mirtazapine 15 Mg Tablet 15 Mg PO QHS Haldol Decanoate 100 (Haloperidol Decanoate) 100 Mg/1 Ml Ampul 450 Mg IM Q4WK Klor-Con M20 (Potassium Chloride) 20 Meq Tab.er.prt 40 Meq PO BIDWMEALS Analgesic Stanley (Methyl Salicylate/Menthol) 28 Gm Oint...g. 1 Guanaco TP PRN QID PRN Magnesium Oxide 400 Mg Tablet 400 Mg PO BID Milk Of Magnesia (Magnesium Hydroxide) 2,400 Mg/10 Ml Oral.susp 2,400 Mg PO PRN QHS PRN Maalox Advanced Suspension (Mag Hydrox/Aluminum Hyd/Simeth) 355 Ml Oral.susp 15 Ml PO PRN AFTMEALHC PRN D3-50 (Cholecalciferol (Vitamin D3)) 50,000 Unit Capsule 50,000 Unit PO QTH Clonazepam 1 Mg Tablet 1 Mg PO TID Furosemide 40 Mg Tablet 80 Mg PO [id number] Hold for SBP less than 100. After held dose, reassess in 2 hours. If SBP is above threshold, administer dose as ordered. If SBP is below threshold, contact provider for additional instructions. I have reviewed the current psychotropics carefully including drug interactions. Risk benefit ratio favors no change other than as noted in my dictated progress note. Diagnosis: Problems: (1) Depression (2) Schizoaffective disorder (3) Anxiety disorder (4) Impulse control disorder (5) Schizoaffective disorder, chronic condition with acute exacerbation KALIN STARKS MD Feb 19, 2018 20:53
[2018-02-19] MEDS: cloZAPine 25 MG TABLET PO SCH (21:01)
[2018-02-19] MEDS: traZODone 100 MG TABLET. PO SCH (21:02)
[2018-02-19] MEDS: MIRTAZAPINE 15 MG TABLET PO SCH (21:02)
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
[2018-02-20 05:28] VITALS: BP 134/58
[2018-02-20] MEDS: DIVALPROEX 125 MG CAP.SPRINK PO SCH ×3 (10:18→20:21)
[2018-02-20] MEDS: FUROSEMIDE 80 MG TABLET PO SCH ×2 (10:18→12:44)
[2018-02-20] MEDS: NYSTATIN TOPICAL POWDER 15GM BOTTLE. TP SCH ×2 (10:18→20:21)
[2018-02-20] MEDS: PIOGLITAZONE 15 MG TABLET. PO SCH (10:18)
[2018-02-20] MEDS: busPIRone 10 MG TABLET. PO SCH ×3 (10:19→16:39)
[2018-02-20] MEDS: LACTOBACILLUS RHAMNOSUS GG 1 CAPSULE. PO SCH ×2 (10:19→20:21)
[2018-02-20] MEDS: POTASSIUM CHLORIDE 20 MEQ TABLET.ER. PO SCH ×2 (10:19→16:40)
[2018-02-20] MEDS: metFORMIN 500 MG TABLET PO SCH ×2 (10:20→16:40)
[2018-02-20] MEDS: AMANTADINE HCL 100 MG CAPSULE PO SCH ×2 (10:20→20:21)
[2018-02-20] MEDS: metOLazone 5 MG TABLET PO SCH (10:20)
[2018-02-20] MEDS: traZODone 50 MG TABLET. PO SCH ×3 (10:25→16:39)
[2018-02-20] MEDS: HALOPERIDOL 5 MG TABLET PO SCH (10:25)
[2018-02-20] MEDS: clonazePAM 1 MG TABLET PO SCH ×3 (10:26→20:22)
[2018-02-20] MEDS: MAGNESIUM OXIDE 400 MG TABLET PO SCH ×2 (10:26→20:21)
[2018-02-20] MEDS: INSULIN LISPRO 300 UNITS/3 ML INSULN.PEN. SQ SCH ×3 (10:28→17:22)
[2018-02-20] MEDS: IPRATRPIUM/ALBUTEROL 0.5/2.5MG 3 ML NEBU. NEB SCH (10:46)
[2018-02-20 12:45] LABS: BACTERIA,URINE 0 /HPF (0-FEW); BILIRUBIN,URINE NEG (NEG); CLARITY,URINE CLEAR; COLOR,URINE YELLOW; GLUCOSE,URINE NEG (NEG); NITRITE,URINE NEG (NEG); RBC,URINE OCC /HPF (0-2); SQUAMOUS EPITHELIAL CELL,UR FEW /LPF; UROBILINOGEN,URINE 0.2 mg/dL (0.2 mg/dL)
[2018-02-20 15:59] VITALS: BP 124/84
[2018-02-20] MEDS: CHOLECALCIFEROL (VITAMIN D3) 50,000 UNIT CAPSULE PO SCH (16:39)
[2018-02-20] MEDS: MIRTAZAPINE 15 MG TABLET PO SCH (20:21)
[2018-02-20] MEDS: traZODone 100 MG TABLET. PO SCH (20:21)
--- NOTE | 2018-02-20 20:32 | PDOC ---
Exam Note: Napoleon Note: Please also refer to the separate dictated note~for this date of service dictated separately.~Patient seen individually. Discussed the patient with Nursing staff reviewed the chart.~Reviewed interim history and current functioning. Reviewed vital signs,~Labs/ Radiology~and current medications noted below. Continue current treatment with the changes noted in the dictated addendum note Assessment: Vital Signs: Vital Signs Date Time Temp Pulse Resp B/P (MAP) Pulse Ox O2 Delivery O2 Flow Rate FiO2 02/20/18 15:59 98.1 97 20 124/84 (97) 96 Room Air I&O Intake and Output 02/20/18 07:00 Intake Total 520 ml Balance 520 ml Intake Oral 520 ml Labs: Laboratory Tests Test 02/20/18 08:11 02/20/18 12:10 02/20/18 12:21 02/20/18 17:13 Glucose (Fingerstick) 174 mg/dL (70-99) H 222 mg/dL (70-99) H 167 mg/dL (70-99) H Urine Collection Type Void Urine Color Yellow Urine Clarity Clear Urine pH 8.5 Urine Specific [place] 1.015 Urine Protein Neg (NEG-TRACE) Urine Glucose (UA) Neg mg/dL (NEG) Urine Ketones (Stick) Neg mg/dL (NEG) Urine Blood Neg (NEG) Urine Nitrite Neg (NEG) Urine Bilirubin Neg (NEG) Urine Urobilinogen Dipstick 0.2 mg/dL (0.2 mg/dL) Urine Leukocyte Esterase Trace (NEG) Urine RBC Occ /HPF (0-2) Urine WBC 1-4 /HPF (0-4) Urine Squamous Epithelial Cells Few /LPF Urine Bacteria 0 /HPF (0-FEW) Test 02/20/18 19:07 Glucose (Fingerstick) 160 mg/dL (70-99) H Current Medications: Meds: Current Medications Lorazepam (Ativan) 2 mg 1X ONCE IM ; Start 02/10/18 at 04:00; Stop 02/10/18 at 04:01; Status DC Diphenhydramine HCl (Benadryl) 50 mg 1X ONCE IM ; Start 02/10/18 at 04:00; Stop 02/10/18 at 04:01; Status DC Ziprasidone (Geodon Im) 20 mg 1X ONCE IM ; Start 02/10/18 at 04:00; Stop at 04:01; Status DC Multivitamins/ Minerals 10 ml/ Folic Acid 1 mg/ Thiamine HCl 100 mg/Lactated Ringer's 1,011.1 ml @ 1,000 mls/ hr 1X ONCE IV ; Start 02/10/18 at 03:45; Stop 02/10/18 at 04:45; Status DC Magnesium Hydroxide (Milk Of Magnesia) 2,400 mg 1X ONCE PO ; Start 02/10/18 at 05:30; Stop 02/10/18 at 05:32; Status DC Potassium Chloride (KCl Oral Soln) 40 meq 1X ONCE PO ; Start 02/10/18 at 05:30 ; Stop 02/10/18 at 05:32; Status DC Acetaminophen (Tylenol) 650 mg PRN Q6HRS PRN PO PAIN / TEMP Last administered on 02/16/18at 05:22; Start 02/10/18 at 06:15 Multi-Ingredient Ointment (Analgesic [place]) 1 guanaco PRN QID PRN TP MUSCLE PAIN; Start 02/10/18 at 06:15 Al Hydroxide/Mg Hydroxide (Mylanta Plus Xs) 15 ml PRN AFTMEALHC PRN PO DYSPEPSIA; Start 02/10/18 at 06:15 Magnesium Hydroxide (Milk Of Magnesia) 2,400 mg PRN QHS PRN PO CONSTIPATION Last administered on 02/18/18at 19:46; Start 02/10/18 at 06:15 Influenza Virus Vaccine (Afluria Trivalent [id number] Syringe) 0.5 ml ONCE ONCE VAX IM Last administered on 02/10/18at 14:21; Start 02/10/18 at 09:00; Stop at 09:01; Status DC Vitamin D (Vitamin D3) 50,000 unit QTH PO Last administered on 02/20/18at 16:39 ; Start 02/13/18 at 16:00 Albuterol/ Ipratropium (Duoneb) 3 ml DAILY NEB Last administered on 02/20/18at 10:46; Start 02/10/18 at 09:00 Lactobacillus Rhamnosus (Culturelle) 1 cap BID PO Last administered on at 20:21; Start 02/10/18 at 09:00 Potassium Chloride (Klor-Con) 40 meq BIDWMEALS PO Last administered on 16:40; Start 02/10/18 at 08:00 Amantadine HCl (Symmetrel) 100 mg BID PO Last administered on 02/20/18 20:21; Start 02/10/18 at 09:00 Buspirone HCl (Buspar) 10 mg 1300,1700 PO Last administered on 02/20/18 16:39 ; Start 02/10/18 at 13:00 Buspirone HCl (Buspar) 20 mg DAILY PO Last administered on 02/20/18 10:19; Start 02/10/18 at 09:00 Clonazepam (KlonoPIN) 1 mg TID PO Last administered on 02/20/18 20:22; Start 02/10/18 at 09:00 Diltiazem HCl (Cardizem 24hr Cd) 120 mg DAILY PO Last administered on 10:20; Start 02/10/18 at 09:00 Furosemide (Lasix) 80 mg BID92 PO Last administered on 02/20/18 12:44; Start 02/10/18 at 09:00 Haloperidol (Haldol) 7.5 mg DAILY PO Last administered on 02/19/18 09:05; Start 02/10/18 at 09:00; Stop 02/19/18 at 18:16; Status DC Non-Formulary Medication (Haloperidol Decanoate (Haldol Decanoate 100)) 450 mg Q4WK IM ; Start 02/10/18 at 09:00; Stop 02/10/18 at 16:12; Status DC Non-Formulary Medication (Insulin Aspart (Novolog Flexpen)) see protocol TIDWMEALS SQ ; Start 02/10/18 at 08:00; Status UNV Magnesium Oxide (Magnesium Oxide) 400 mg BID PO Last administered on 02/20/18 20:21; Start 02/10/18 at 09:00 Metformin HCl (Glucophage) 500 mg BIDWMEALS PO Last administered on 02/20/18 16:40; Start 02/10/18 at 08:00 Metolazone (Zaroxolyn) 5 mg DAILY PO Last administered on 02/20/18 10:20; Start 02/10/18 at 09:00 Mirtazapine (Remeron) 15 mg QHS PO Last administered on 9/27/18at 20:21; Start 02/10/18 at 21:00 Pioglitazone HCl (Actos) 15 mg DAILY PO Last administered on 02/20/18at 10:18; Start 02/10/18 at 09:00 Trazodone HCl (Desyrel) 25 mg TID@0900,1300,1700 PO Last administered on at 16:39; Start 02/10/18 at 09:00 Valproic Acid (Depakene) 750 mg TID PO Last administered on 02/17/18at 21:01; Start 02/10/18 at 09:00; Stop 02/18/18 at 08:06; Status DC Insulin Human Lispro (HumaLOG) 0-9 UNITS TIDWMEALS SQ Last administered on 02/20at 17:22; Start 02/10/18 at 08:00 Dextrose 12.5 gm PRN Q15MIN PRN IV SEE COMMENTS; Start 02/10/18 at 06:30 Olanzapine (ZyPREXA ZYDIS) 5 mg PRN Q2HR PRN PO PSYCHOSIS Last administered on 02/16/18at 17:03; Start 02/10/18 at 06:45 Haloperidol Decanoate (Haldol Decanoate Im Extended Release) 450 mg Q4WK IM ; Start 03/10/18 at 09:00 Trazodone HCl (Desyrel) 25 mg STK-MED ONCE .ROUTE ; Start 02/10/18 at 09:00; Stop 02/11/18 at 10:03; Status DC Trazodone HCl (Desyrel) 25 mg STK-MED ONCE .ROUTE ; Start 02/10/18 at 09:00; Stop 02/11/18 at 10:03; Status DC Trazodone HCl (Desyrel) 25 mg STK-MED ONCE .ROUTE ; Start 02/10/18 at 09:00; Stop 02/11/18 at 10:03; Status DC Trazodone HCl (Desyrel) 25 mg STK-MED ONCE .ROUTE ; Start 02/11/18 at 09:00; Stop 02/11/18 at 10:04; Status DC Clozapine (Clozaril) 25 mg HS PO Last administered on 02/16/18at 21:13; Start at 21:00; Stop 02/17/18 at 17:40; Status DC Nystatin (Nystop) 1 guanaco BID TP Last administered on 02/20/18at 20:21; Start at 09:00 Trazodone HCl (Desyrel) 100 mg PRN QHS PRN PO INSOMNIA, MAY REPEAT X1; Start at 17:00; Stop 02/16/18 at 22:42; Status DC Trazodone HCl (Desyrel) 100 mg QHS PO Last administered on 02/20/18at 20:21; Start 02/16/18 at 23:00 Trazodone HCl (Desyrel) 100 mg PRN QHS PRN PO insomnia Last administered on at 19:46; Start 02/16/18 at 22:45 Clozapine (Clozaril) 50 mg HS PO Last administered on 02/19/18at 21:01; Start at 21:00 Divalproex Sodium (Depakote Sprinkles) 750 mg TID PO Last administered on at 20:21; Start 02/18/18 at 09:00 Haloperidol (Haldol) 5 mg DAILY PO Last administered on 02/20/18at 10:25; Start 02/20/18 at 09:00 Active Scripts Active Reported Duoneb 0.5-3(2.5) Mg/3 Ml (Albuterol/Ipratropium) 3 Ml Ampul.neb 3 Ml NEB DAILY Zyprexa Zydis (Olanzapine) 5 Mg Tab.rapdis 5 Mg PO PRN Q2HR PRN Buspirone Hcl 10 Mg Tablet 10 Mg PO BID@1300,1700 Valproic Acid (Valproate Sodium) 250 Mg/5 Ml Solution 750 Mg PO TID Novolog Flexpen (Insulin Aspart) 100 Unit/1 Ml Insuln.pen 0-9 Unit SQ TIDWMEALS <70 follow hypoglycemic protocol 70-150 0units if eating/ 0 if not eating 151-200 4 units if eating/ 0 units if not eating 201-250 5 units if eating/ 3 units if not eating 251-300 7 units if eating/ 4 units if not eating 301-350 9 units if eating/ 5 units if not eating > 351 Call Physician for futher orders Trazodone Hcl 100 Mg Tablet 200 Mg PO PRN QHS PRN Trazodone Hcl 50 Mg Tablet 25 Mg PO TID@0900,1300,1700 Culturelle (Lactobacillus Rhamnosus Gg) 1 Each Cap.sprink 1 Each PO BID Haloperidol 5 Mg Tablet 7.5 Mg PO DAILY Tylenol (Acetaminophen) 325 Mg Tablet 650 Mg PO PRN Q6HRS PRN Buspirone Hcl 10 Mg Tablet 20 Mg PO DAILY Theophylline Anhydrous 200 Mg Tab.er.12h 200 Mg PO BID Metolazone 5 Mg Tablet 5 Mg PO DAILY Metformin Hcl 500 Mg Tablet 500 Mg PO BIDWMEALS Cardizem Tablet (Diltiazem Hcl) 120 Mg Tablet 120 Mg PO DAILY Amantadine (Amantadine Hcl) 100 Mg Tablet 100 Mg PO BID Actos (Pioglitazone Hcl) 15 Mg Tablet 15 Mg PO DAILY Mirtazapine 15 Mg Tablet 15 Mg PO QHS Haldol Decanoate 100 (Haloperidol Decanoate) 100 Mg/1 Ml Ampul 450 Mg IM Q4WK Klor-Con M20 (Potassium Chloride) 20 Meq Tab.er.prt 40 Meq PO BIDWMEALS Analgesic [place] (Methyl Salicylate/Menthol) 28 Gm Oint...g. 1 [place] TP PRN QID PRN Magnesium Oxide 400 Mg Tablet 400 Mg PO BID Milk Of Magnesia (Magnesium Hydroxide) 2,400 Mg/10 Ml Oral.susp 2,400 Mg PO PRN QHS PRN Maalox Advanced Suspension (Mag Hydrox/Aluminum Hyd/Simeth) 355 Ml Oral.susp 15 Ml PO PRN AFTMEALHC PRN D3-50 (Cholecalciferol (Vitamin D3)) 50,000 Unit Capsule 50,000 Unit PO QTH Clonazepam 1 Mg Tablet 1 Mg PO TID Furosemide 40 Mg Tablet 80 Mg PO [id number] Hold for SBP less than 100. After held dose, reassess in 2 hours. If SBP is above threshold, administer dose as ordered. If SBP is below threshold, contact provider for additional instructions. I have reviewed the current psychotropics carefully including drug interactions. Risk benefit ratio favors no change other than as noted in my dictated progress note. Diagnosis: Problems: (1) Depression (2) Schizoaffective disorder (3) Anxiety disorder (4) Impulse control disorder (5) Schizoaffective disorder, chronic condition with acute exacerbation KALIN STARKS MD Feb 20, 2018 20:32
[2018-02-20] MEDS: cloZAPine 25 MG TABLET PO SCH (21:35)
[2018-02-21 05:55] VITALS: BP 107/73
[2018-02-21] MEDS: busPIRone 10 MG TABLET. PO SCH ×3 (07:40→16:52)
[2018-02-21] MEDS: DIVALPROEX 125 MG CAP.SPRINK PO SCH ×4 (07:40→19:11)
[2018-02-21] MEDS: HALOPERIDOL 5 MG TABLET PO SCH (07:41)
[2018-02-21] MEDS: FUROSEMIDE 80 MG TABLET PO SCH ×2 (07:41→14:04)
[2018-02-21] MEDS: PIOGLITAZONE 15 MG TABLET. PO SCH (07:41)
[2018-02-21] MEDS: MAGNESIUM OXIDE 400 MG TABLET PO SCH ×2 (07:41→19:12)
[2018-02-21] MEDS: metFORMIN 500 MG TABLET PO SCH ×2 (07:42→16:52)
[2018-02-21] MEDS: metOLazone 5 MG TABLET PO SCH (07:42)
[2018-02-21] MEDS: traZODone 50 MG TABLET. PO SCH ×3 (07:42→16:51)
[2018-02-21] MEDS: AMANTADINE HCL 100 MG CAPSULE PO SCH ×2 (07:42→19:13)
[2018-02-21] MEDS: LACTOBACILLUS RHAMNOSUS GG 1 CAPSULE. PO SCH ×2 (07:43→19:12)
[2018-02-21] MEDS: POTASSIUM CHLORIDE 20 MEQ TABLET.ER. PO SCH ×2 (07:43→16:51)
[2018-02-21] MEDS: clonazePAM 1 MG TABLET PO SCH ×3 (07:44→19:13)
[2018-02-21] MEDS: INSULIN LISPRO 300 UNITS/3 ML INSULN.PEN. SQ SCH ×3 (08:47→16:53)
[2018-02-21] MEDS: NYSTATIN TOPICAL POWDER 15GM BOTTLE. TP SCH ×2 (08:53→19:12)
[2018-02-21] MEDS: IPRATRPIUM/ALBUTEROL 0.5/2.5MG 3 ML NEBU. NEB SCH (11:25)
[2018-02-21 16:07] VITALS: BP 124/77
[2018-02-21] MEDS: MIRTAZAPINE 15 MG TABLET PO SCH (19:12)
[2018-02-21] MEDS: traZODone 100 MG TABLET. PO SCH (19:12)
[2018-02-21] MEDS: cloZAPine 25 MG TABLET PO SCH (19:13)
--- NOTE | 2018-02-21 20:50 | PDOC ---
Exam Note: Napoleon Note: Please also refer to the separate dictated note~for this date of service dictated separately.~Patient seen individually. Discussed the patient with Nursing staff reviewed the chart.~Reviewed interim history and current functioning. Reviewed vital signs,~Labs/ Radiology~and current medications noted below. Continue current treatment with the changes noted in the dictated addendum note Assessment: Vital Signs: Vital Signs Date Time Temp Pulse Resp B/P (MAP) Pulse Ox O2 Delivery O2 Flow Rate FiO2 02/21/18 16:07 97.2 73 20 124/77 (93) 91 Room Air I&O Intake and Output 02/21/18 07:00 Intake Total 240 ml Balance 240 ml Intake Oral 240 ml Labs: Laboratory Tests Test 02/21/18 07:03 02/21/18 07:16 02/21/18 11:30 02/21/18 16:29 Glucose (Fingerstick) 121 mg/dL (70-99) H 157 mg/dL (70-99) H 168 mg/dL (70-99) H 183 mg/dL (70-99) H Current Medications: Meds: Current Medications Lorazepam (Ativan) 2 mg 1X ONCE IM ; Start 02/10/18 at 04:00; Stop 02/10/18 at 04:01; Status DC Diphenhydramine HCl (Benadryl) 50 mg 1X ONCE IM ; Start 02/10/18 at 04:00; Stop 02/10/18 at 04:01; Status DC Ziprasidone (Geodon Im) 20 mg 1X ONCE IM ; Start 02/10/18 at 04:00; Stop at 04:01; Status DC Multivitamins/ Minerals 10 ml/ Folic Acid 1 mg/ Thiamine HCl 100 mg/Lactated Ringer's 1,011.1 ml @ 1,000 mls/ hr 1X ONCE IV ; Start 02/10/18 at 03:45; Stop 02/10/18 at 04:45; Status DC Magnesium Hydroxide (Milk Of Magnesia) 2,400 mg 1X ONCE PO ; Start 02/10/18 at 05:30; Stop 02/10/18 at 05:32; Status DC Potassium Chloride (KCl Oral Soln) 40 meq 1X ONCE PO ; Start 02/10/18 at 05:30 ; Stop 02/10/18 at 05:32; Status DC Acetaminophen (Tylenol) 650 mg PRN Q6HRS PRN PO PAIN / TEMP Last administered on 02/16/18 05:22; Start 02/10/18 at 06:15 Multi-Ingredient Ointment (Analgesic [place]) 1 guanaco PRN QID PRN TP MUSCLE PAIN; Start 02/10/18 at 06:15 Al Hydroxide/Mg Hydroxide (Mylanta Plus Xs) 15 ml PRN AFTMEALHC PRN PO DYSPEPSIA; Start 02/10/18 at 06:15 Magnesium Hydroxide (Milk Of Magnesia) 2,400 mg PRN QHS PRN PO CONSTIPATION Last administered on 02/18/18 19:46; Start 02/10/18 at 06:15 Influenza Virus Vaccine (Afluria Trivalent [id number] Syringe) 0.5 ml ONCE ONCE VAX IM Last administered on 02/10/18 14:21; Start 02/10/18 at 09:00; Stop at 09:01; Status DC Vitamin D (Vitamin D3) 50,000 unit QTH PO Last administered on 02/20/18 16:39 ; Start 02/13/18 at 16:00 Albuterol/ Ipratropium (Duoneb) 3 ml DAILY NEB Last administered on 02/21/18 11:25; Start 02/10/18 at 09:00 Lactobacillus Rhamnosus (Culturelle) 1 cap BID PO Last administered on 19:12; Start 02/10/18 at 09:00 Potassium Chloride (Klor-Con) 40 meq BIDWMEALS PO Last administered on 16:51; Start 02/10/18 at 08:00 Amantadine HCl (Symmetrel) 100 mg BID PO Last administered on 02/21/18 19:13; Start 02/10/18 at 09:00 Buspirone HCl (Buspar) 10 mg 1300,1700 PO Last administered on 02/21/18 16:52 ; Start 02/10/18 at 13:00 Buspirone HCl (Buspar) 20 mg DAILY PO Last administered on 02/21/18 07:40; Start 02/10/18 at 09:00 Clonazepam (KlonoPIN) 1 mg TID PO Last administered on 02/21/18 19:13; Start 02/10/18 at 09:00 Diltiazem HCl (Cardizem 24hr Cd) 120 mg DAILY PO Last administered on 07:41; Start 02/10/18 at 09:00 Furosemide (Lasix) 80 mg BID92 PO Last administered on 02/21/18at 14:04; Start 02/10/18 at 09:00 Haloperidol (Haldol) 7.5 mg DAILY PO Last administered on 02/19/18at 09:05; Start 02/10/18 at 09:00; Stop 02/19/18 at 18:16; Status DC Non-Formulary Medication (Haloperidol Decanoate (Haldol Decanoate 100)) 450 mg Q4WK IM ; Start 02/10/18 at 09:00; Stop 02/10/18 at 16:12; Status DC Non-Formulary Medication (Insulin Aspart (Novolog Flexpen)) see protocol TIDWMEALS SQ ; Start 02/10/18 at 08:00; Status UNV Magnesium Oxide (Magnesium Oxide) 400 mg BID PO Last administered on 02/21/18at 19:12; Start 02/10/18 at 09:00 Metformin HCl (Glucophage) 500 mg BIDWMEALS PO Last administered on 02/21/18 16:52; Start 02/10/18 at 08:00 Metolazone (Zaroxolyn) 5 mg DAILY PO Last administered on 02/21/18 07:42; Start 02/10/18 at 09:00 Mirtazapine (Remeron) 15 mg QHS PO Last administered on 02/21/18 19:12; Start 02/10/18 at 21:00 Pioglitazone HCl (Actos) 15 mg DAILY PO Last administered on 02/21/18 07:41; Start 02/10/18 at 09:00 Trazodone HCl (Desyrel) 25 mg TID@0900,1300,1700 PO Last administered on 16:51; Start 02/10/18 at 09:00 Valproic Acid (Depakene) 750 mg TID PO Last administered on 02/17/18at 21:01; Start 02/10/18 at 09:00; Stop 02/18/18 at 08:06; Status DC Insulin Human Lispro (HumaLOG) 0-9 UNITS TIDWMEALS SQ Last administered on 02/21at 16:53; Start 02/10/18 at 08:00 Dextrose 12.5 gm PRN Q15MIN PRN IV SEE COMMENTS; Start 02/10/18 at 06:30 Olanzapine (ZyPREXA ZYDIS) 5 mg PRN Q2HR PRN PO PSYCHOSIS Last administered on 02/16/18at 17:03; Start 02/10/18 at 06:45 Haloperidol Decanoate (Haldol Decanoate Im Extended Release) 450 mg Q4WK IM ; Start 03/10/18 at 09:00 Trazodone HCl (Desyrel) 25 mg STK-MED ONCE .ROUTE ; Start 02/10/18 at 09:00; Stop 02/11/18 at 10:03; Status DC Trazodone HCl (Desyrel) 25 mg STK-MED ONCE .ROUTE ; Start 02/10/18 at 09:00; Stop 02/11/18 at 10:03; Status DC Trazodone HCl (Desyrel) 25 mg STK-MED ONCE .ROUTE ; Start 02/10/18 at 09:00; Stop 02/11/18 at 10:03; Status DC Trazodone HCl (Desyrel) 25 mg STK-MED ONCE .ROUTE ; Start 02/11/18 at 09:00; Stop 02/11/18 at 10:04; Status DC Clozapine (Clozaril) 25 mg HS PO Last administered on 02/16/18at 21:13; Start at 21:00; Stop 02/17/18 at 17:40; Status DC Nystatin (Nystop) 1 guanaco BID TP Last administered on 02/21/18at 19:12; Start at 09:00 Trazodone HCl (Desyrel) 100 mg PRN QHS PRN PO INSOMNIA, MAY REPEAT X1; Start at 17:00; Stop 02/16/18 at 22:42; Status DC Trazodone HCl (Desyrel) 100 mg QHS PO Last administered on 02/21/18at 19:12; Start 02/16/18 at 23:00 Trazodone HCl (Desyrel) 100 mg PRN QHS PRN PO insomnia Last administered on at 19:46; Start 02/16/18 at 22:45 Clozapine (Clozaril) 50 mg HS PO Last administered on 02/21/18 19:13; Start at 21:00 Divalproex Sodium (Depakote Sprinkles) 750 mg TID PO Last administered on 19:11; Start 02/18/18 at 09:00 Haloperidol (Haldol) 5 mg DAILY PO Last administered on 02/21/18at 07:41; Start 02/20/18 at 09:00 Active Scripts Active Reported Duoneb 0.5-3(2.5) Mg/3 Ml (Albuterol/Ipratropium) 3 Ml Ampul.neb 3 Ml NEB DAILY Zyprexa Zydis (Olanzapine) 5 Mg Tab.rapdis 5 Mg PO PRN Q2HR PRN Buspirone Hcl 10 Mg Tablet 10 Mg PO BID@1300,1700 Valproic Acid (Valproate Sodium) 250 Mg/5 Ml Solution 750 Mg PO TID Novolog Flexpen (Insulin Aspart) 100 Unit/1 Ml Insuln.pen 0-9 Unit SQ TIDWMEALS <70 follow hypoglycemic protocol 70-150 0units if eating/ 0 if not eating 151-200 4 units if eating/ 0 units if not eating 201-250 5 units if eating/ 3 units if not eating 251-300 7 units if eating/ 4 units if not eating 301-350 9 units if eating/ 5 units if not eating > 351 Call Physician for futher orders Trazodone Hcl 100 Mg Tablet 200 Mg PO PRN QHS PRN Trazodone Hcl 50 Mg Tablet 25 Mg PO TID@0900,1300,1700 Culturelle (Lactobacillus Rhamnosus Gg) 1 Each Cap.sprink 1 Each PO BID Haloperidol 5 Mg Tablet 7.5 Mg PO DAILY Tylenol (Acetaminophen) 325 Mg Tablet 650 Mg PO PRN Q6HRS PRN Buspirone Hcl 10 Mg Tablet 20 Mg PO DAILY Theophylline Anhydrous 200 Mg Tab.er.12h 200 Mg PO BID Metolazone 5 Mg Tablet 5 Mg PO DAILY Metformin Hcl 500 Mg Tablet 500 Mg PO BIDWMEALS Cardizem Tablet (Diltiazem Hcl) 120 Mg Tablet 120 Mg PO DAILY Amantadine (Amantadine Hcl) 100 Mg Tablet 100 Mg PO BID Actos (Pioglitazone Hcl) 15 Mg Tablet 15 Mg PO DAILY Mirtazapine 15 Mg Tablet 15 Mg PO QHS Haldol Decanoate 100 (Haloperidol Decanoate) 100 Mg/1 Ml Ampul 450 Mg IM Q4WK Klor-Con M20 (Potassium Chloride) 20 Meq Tab.er.prt 40 Meq PO BIDWMEALS Analgesic [place] (Methyl Salicylate/Menthol) 28 Gm Oint...g. 1 [place] TP PRN QID PRN Magnesium Oxide 400 Mg Tablet 400 Mg PO BID Milk Of Magnesia (Magnesium Hydroxide) 2,400 Mg/10 Ml Oral.susp 2,400 Mg PO PRN QHS PRN Maalox Advanced Suspension (Mag Hydrox/Aluminum Hyd/Simeth) 355 Ml Oral.susp 15 Ml PO PRN AFTMEALHC PRN D3-50 (Cholecalciferol (Vitamin D3)) 50,000 Unit Capsule 50,000 Unit PO QTH Clonazepam 1 Mg Tablet 1 Mg PO TID Furosemide 40 Mg Tablet 80 Mg PO [id number] Hold for SBP less than 100. After held dose, reassess in 2 hours. If SBP is above threshold, administer dose as ordered. If SBP is below threshold, contact provider for additional instructions. I have reviewed the current psychotropics carefully including drug interactions. Risk benefit ratio favors no change other than as noted in my dictated progress note. Diagnosis: Problems: (1) Depression (2) Schizoaffective disorder (3) Anxiety disorder (4) Impulse control disorder (5) Schizoaffective disorder, chronic condition with acute exacerbation KALIN STARKS MD Feb 21, 2018 20:50
--- NOTE | 2018-02-21 22:27 | PN ---
DATE: 02/19/2018 This is a late entry for 02/19/2018 covers elements not covered in my initial note. SUBJECTIVE: I met with the patient in the evening. The patient slept 8 hours previous night. Continues to yell out with marked mood lability, spends much time in restroom, bates staff to assist her there. The patient is demanding, believes people are stealing a purse and calling her names. She remains paranoid. She had to be removed from the dayroom per nursing report. She was talking to her hand like it was a telephone, communicating with someone when no one was there, remains psychotic. Slept 5-1/4 hours previous night. REVIEW OF SYSTEMS: Ambulation impaired, in wheelchair. No CV, , pulmonary, eye, ENT system symptoms on review. Reliability poor. MENTAL STATUS EXAM: Oriented to herself and situation. Speech coherent, rapid, loud at times. Abstraction fair, computation impaired, language function intact, attention span short. Mood and affect remains labile. LABORATORY DATA: Reviewed. IMPRESSION: Schizoaffective disorder, bipolar type, mixed with psychotic features, in partial remission. Rest unchanged from initial note. PLAN: As we have increased the Clozaril to 50 mg at bedtime, we will reduce the Haldol oral 7.5 mg daily down to 5 mg daily. Continue rest unchanged. Valproic acid level therapeutic at 55. MAN Mary STARKS MD DR: TRACIE/karli JOB#: [id number] / [id number]
--- NOTE | 2018-02-22 00:48 | PN ---
DATE: 02/20/2018 This is a late entry for 02/20/2018 covers elements not covered in my initial note. SUBJECTIVE: I met with the patient in the evening. The patient slept 5-3/4 hours previous evening. She was also staffed at a treatment team meeting with the entire team in the morning. Reviewed her history, diagnosis, changes in her psychotropics with an initiation of Clozaril as we reduced the Haldol, initially oral, and thereafter, the decanoate. She remains quite labile. We will repeat a UA. REVIEW OF SYSTEMS: Ambulation impaired, in wheelchair. No CV, , pulmonary, eye, ENT system symptoms on review. MENTAL STATUS EXAM: Oriented to herself and situation. Speech is coherent, can be rapid, loud at times. Abstraction fair, computation able to do 0 steps in serial 7's. No suicidal or homicidal ideation. She remains intermittently psychotic. LABORATORY DATA: Reviewed. IMPRESSION: Schizoaffective disorder, bipolar type, mixed with psychotic features. Rest unchanged. PLAN: Reduce the Haldol oral from 7.5 down to 5 mg a day. Rest unchanged. Gradually increase Clozaril. MAN Mary STARKS MD DR: TRACIE/karli JOB#: [id number] / [id number]
[2018-02-22 05:58] VITALS: BP 102/65
[2018-02-22] MEDS: INSULIN LISPRO 300 UNITS/3 ML INSULN.PEN. SQ SCH ×3 (08:40→17:21)
[2018-02-22] MEDS: metOLazone 5 MG TABLET PO SCH (09:00)
[2018-02-22] MEDS: FUROSEMIDE 80 MG TABLET PO SCH ×2 (09:00→14:13)
[2018-02-22] MEDS: metFORMIN 500 MG TABLET PO SCH ×3 (09:02→18:49)
[2018-02-22] MEDS: NYSTATIN TOPICAL POWDER 15GM BOTTLE. TP SCH ×2 (09:02→19:01)
[2018-02-22] MEDS: LACTOBACILLUS RHAMNOSUS GG 1 CAPSULE. PO SCH (09:03)
[2018-02-22] MEDS: POTASSIUM CHLORIDE 20 MEQ TABLET.ER. PO SCH ×3 (09:03→18:49)
[2018-02-22] MEDS: PIOGLITAZONE 15 MG TABLET. PO SCH (09:03)
[2018-02-22] MEDS: busPIRone 10 MG TABLET. PO SCH ×4 (09:03→18:48)
[2018-02-22] MEDS: DIVALPROEX 125 MG CAP.SPRINK PO SCH ×3 (09:04→18:59)
[2018-02-22] MEDS: HALOPERIDOL 5 MG TABLET PO SCH (09:04)
[2018-02-22] MEDS: traZODone 50 MG TABLET. PO SCH ×3 (09:04→17:18)
[2018-02-22] MEDS: clonazePAM 1 MG TABLET PO SCH ×3 (09:05→19:01)
[2018-02-22] MEDS: AMANTADINE HCL 100 MG CAPSULE PO SCH ×2 (09:05→19:01)
[2018-02-22] MEDS: MAGNESIUM OXIDE 400 MG TABLET PO SCH ×2 (09:05→19:00)
[2018-02-22] MEDS: IPRATRPIUM/ALBUTEROL 0.5/2.5MG 3 ML NEBU. NEB SCH (09:51)
[2018-02-22 16:00] VITALS: BP 116/77
[2018-02-22] MEDS: cloZAPine 25 MG TABLET PO SCH (18:59)
[2018-02-22] MEDS: traZODone 100 MG TABLET. PO SCH (19:00)
[2018-02-22] MEDS: MIRTAZAPINE 15 MG TABLET PO SCH (19:00)
--- NOTE | 2018-02-22 23:08 | PDOC ---
Exam Note: Napoleon Note: Please also refer to the separate dictated note~for this date of service dictated separately.~Patient seen individually. Discussed the patient with Nursing staff reviewed the chart.~Reviewed interim history and current functioning. Reviewed vital signs,~Labs/ Radiology~and current medications noted below. Continue current treatment with the changes noted in the dictated addendum note Assessment: Vital Signs: Vital Signs Date Time Temp Pulse Resp B/P (MAP) Pulse Ox O2 Delivery O2 Flow Rate FiO2 02/22/18 16:00 97.1 98 20 116/77 (90) 97 02/22/18 09:52 Room Air I&O Intake and Output 02/22/18 07:00 Intake Total 960 ml Balance 960 ml Intake Oral 960 ml # Bowel Movements 1 Labs: Laboratory Tests Test 02/22/18 07:22 02/22/18 11:39 02/22/18 17:19 02/22/18 20:02 Glucose (Fingerstick) 287 mg/dL (70-99) H 215 mg/dL (70-99) H 126 mg/dL (70-99) H 161 mg/dL (70-99) H Current Medications: Meds: Current Medications Lorazepam (Ativan) 2 mg 1X ONCE IM ; Start 02/10/18 at 04:00; Stop 02/10/18 at 04:01; Status DC Diphenhydramine HCl (Benadryl) 50 mg 1X ONCE IM ; Start 02/10/18 at 04:00; Stop 02/10/18 at 04:01; Status DC Ziprasidone (Geodon Im) 20 mg 1X ONCE IM ; Start 02/10/18 at 04:00; Stop at 04:01; Status DC Multivitamins/ Minerals 10 ml/ Folic Acid 1 mg/ Thiamine HCl 100 mg/Lactated Ringer's 1,011.1 ml @ 1,000 mls/ hr 1X ONCE IV ; Start 02/10/18 at 03:45; Stop 02/10/18 at 04:45; Status DC Magnesium Hydroxide (Milk Of Magnesia) 2,400 mg 1X ONCE PO ; Start 02/10/18 at 05:30; Stop 02/10/18 at 05:32; Status DC Potassium Chloride (KCl Oral Soln) 40 meq 1X ONCE PO ; Start 02/10/18 at 05:30 ; Stop 02/10/18 at 05:32; Status DC Acetaminophen (Tylenol) 650 mg PRN Q6HRS PRN PO PAIN / TEMP Last administered on 02/16/18 05:22; Start 02/10/18 at 06:15 Multi-Ingredient Ointment (Analgesic Cannon) 1 guanaco PRN QID PRN TP MUSCLE PAIN; Start 02/10/18 at 06:15 Al Hydroxide/Mg Hydroxide (Mylanta Plus Xs) 15 ml PRN AFTMEALHC PRN PO DYSPEPSIA; Start 02/10/18 at 06:15 Magnesium Hydroxide (Milk Of Magnesia) 2,400 mg PRN QHS PRN PO CONSTIPATION Last administered on 02/18/18 19:46; Start 02/10/18 at 06:15 Influenza Virus Vaccine (Afluria Trivalent [id number] Syringe) 0.5 ml ONCE ONCE VAX IM Last administered on 02/10/18 14:21; Start 02/10/18 at 09:00; Stop at 09:01; Status DC Vitamin D (Vitamin D3) 50,000 unit QTH PO Last administered on 02/20/18at 16:39 ; Start 02/13/18 at 16:00 Albuterol/ Ipratropium (Duoneb) 3 ml DAILY NEB Last administered on 02/22/18 09:51; Start 02/10/18 at 09:00 Lactobacillus Rhamnosus (Culturelle) 1 cap BID PO Last administered on 09:03; Start 02/10/18 at 09:00; Stop 02/22/18 at 18:00; Status DC Potassium Chloride (Klor-Con) 40 meq BIDWMEALS PO Last administered on 09:03; Start 02/10/18 at 08:00 Amantadine HCl (Symmetrel) 100 mg BID PO Last administered on 02/22/18 19:01; Start 02/10/18 at 09:00 Buspirone HCl (Buspar) 10 mg 1300,1700 PO Last administered on 02/22/18 14:12 ; Start 02/10/18 at 13:00 Buspirone HCl (Buspar) 20 mg DAILY PO Last administered on 02/22/18 09:03; Start 02/10/18 at 09:00 Clonazepam (KlonoPIN) 1 mg TID PO Last administered on 02/22/18 19:01; Start 02/10/18 at 09:00 Diltiazem HCl (Cardizem 24hr Cd) 120 mg DAILY PO Last administered on 07:41; Start 02/10/18 at 09:00 Furosemide (Lasix) 80 mg [id number] PO Last administered on 02/22/18 14:13; Start 02/10/18 at 09:00 Haloperidol (Haldol) 7.5 mg DAILY PO Last administered on 02/19/18 09:05; Start 02/10/18 at 09:00; Stop 02/19/18 at 18:16; Status DC Non-Formulary Medication (Haloperidol Decanoate (Haldol Decanoate 100)) 450 mg Q4WK IM ; Start 02/10/18 at 09:00; Stop 02/10/18 at 16:12; Status DC Non-Formulary Medication (Insulin Aspart (Novolog Flexpen)) see protocol TIDWMEALS SQ ; Start 02/10/18 at 08:00; Status UNV Magnesium Oxide (Magnesium Oxide) 400 mg BID PO Last administered on 02/22/18 19:00; Start 02/10/18 at 09:00 Metformin HCl (Glucophage) 500 mg BIDWMEALS PO Last administered on 02/22/18 09:02; Start 02/10/18 at 08:00 Metolazone (Zaroxolyn) 5 mg DAILY PO Last administered on 02/21/18 07:42; Start 02/10/18 at 09:00 Mirtazapine (Remeron) 15 mg QHS PO Last administered on 02/22/18 19:00; Start 02/10/18 at 21:00 Pioglitazone HCl (Actos) 15 mg DAILY PO Last administered on 02/22/18 09:03; Start 02/10/18 at 09:00 Trazodone HCl (Desyrel) 25 mg TID@0900,1300,1700 PO Last administered on 17:18; Start 02/10/18 at 09:00 Valproic Acid (Depakene) 750 mg TID PO Last administered on 02/17/18 21:01; Start 02/10/18 at 09:00; Stop 02/18/18 at 08:06; Status DC Insulin Human Lispro (HumaLOG) 0-9 UNITS TIDWMEALS SQ Last administered on 02/22at 11:52; Start 02/10/18 at 08:00 Dextrose 12.5 gm PRN Q15MIN PRN IV SEE COMMENTS; Start 02/10/18 at 06:30 Olanzapine (ZyPREXA ZYDIS) 5 mg PRN Q2HR PRN PO PSYCHOSIS Last administered on 02/16/18at 17:03; Start 02/10/18 at 06:45 Haloperidol Decanoate (Haldol Decanoate Im Extended Release) 450 mg Q4WK IM ; Start 03/10/18 at 09:00 Trazodone HCl (Desyrel) 25 mg STK-MED ONCE .ROUTE ; Start 02/10/18 at 09:00; Stop 02/11/18 at 10:03; Status DC Trazodone HCl (Desyrel) 25 mg STK-MED ONCE .ROUTE ; Start 02/10/18 at 09:00; Stop 02/11/18 at 10:03; Status DC Trazodone HCl (Desyrel) 25 mg STK-MED ONCE .ROUTE ; Start 02/10/18 at 09:00; Stop 02/11/18 at 10:03; Status DC Trazodone HCl (Desyrel) 25 mg STK-MED ONCE .ROUTE ; Start 02/11/18 at 09:00; Stop 02/11/18 at 10:04; Status DC Clozapine (Clozaril) 25 mg HS PO Last administered on 02/16/18at 21:13; Start at 21:00; Stop 02/17/18 at 17:40; Status DC Nystatin (Nystop) 1 guanaco BID TP Last administered on 02/22/18at 19:01; Start at 09:00 Trazodone HCl (Desyrel) 100 mg PRN QHS PRN PO INSOMNIA, MAY REPEAT X1; Start at 17:00; Stop 02/16/18 at 22:42; Status DC Trazodone HCl (Desyrel) 100 mg QHS PO Last administered on 02/22/18at 19:00; Start 02/16/18 at 23:00 Trazodone HCl (Desyrel) 100 mg PRN QHS PRN PO insomnia Last administered on at 19:46; Start 02/16/18 at 22:45 Clozapine (Clozaril) 50 mg HS PO Last administered on 02/22/18at 18:59; Start at 21:00 Divalproex Sodium (Depakote Sprinkles) 750 mg TID PO Last administered on at 18:59; Start 02/18/18 at 09:00 Haloperidol (Haldol) 5 mg DAILY PO Last administered on 02/22/18at 09:04; Start 02/20/18 at 09:00 Active Scripts Active Reported Duoneb 0.5-3(2.5) Mg/3 Ml (Albuterol/Ipratropium) 3 Ml Ampul.neb 3 Ml NEB DAILY Zyprexa Zydis (Olanzapine) 5 Mg Tab.rapdis 5 Mg PO PRN Q2HR PRN Buspirone Hcl 10 Mg Tablet 10 Mg PO BID@1300,1700 Valproic Acid (Valproate Sodium) 250 Mg/5 Ml Solution 750 Mg PO TID Novolog Flexpen (Insulin Aspart) 100 Unit/1 Ml Insuln.pen 0-9 Unit SQ TIDWMEALS <70 follow hypoglycemic protocol 70-150 0units if eating/ 0 if not eating 151-200 4 units if eating/ 0 units if not eating 201-250 5 units if eating/ 3 units if not eating 251-300 7 units if eating/ 4 units if not eating 301-350 9 units if eating/ 5 units if not eating > 351 Call Physician for futher orders Trazodone Hcl 100 Mg Tablet 200 Mg PO PRN QHS PRN Trazodone Hcl 50 Mg Tablet 25 Mg PO TID@0900,1300,1700 Culturelle (Lactobacillus Rhamnosus Gg) 1 Each Cap.sprink 1 Each PO BID Haloperidol 5 Mg Tablet 7.5 Mg PO DAILY Tylenol (Acetaminophen) 325 Mg Tablet 650 Mg PO PRN Q6HRS PRN Buspirone Hcl 10 Mg Tablet 20 Mg PO DAILY Theophylline Anhydrous 200 Mg Tab.er.12h 200 Mg PO BID Metolazone 5 Mg Tablet 5 Mg PO DAILY Metformin Hcl 500 Mg Tablet 500 Mg PO BIDWMEALS Cardizem Tablet (Diltiazem Hcl) 120 Mg Tablet 120 Mg PO DAILY Amantadine (Amantadine Hcl) 100 Mg Tablet 100 Mg PO BID Actos (Pioglitazone Hcl) 15 Mg Tablet 15 Mg PO DAILY Mirtazapine 15 Mg Tablet 15 Mg PO QHS Haldol Decanoate 100 (Haloperidol Decanoate) 100 Mg/1 Ml Ampul 450 Mg IM Q4WK Klor-Con M20 (Potassium Chloride) 20 Meq Tab.er.prt 40 Meq PO BIDWMEALS Analgesic Cannon (Methyl Salicylate/Menthol) 28 Gm Oint...g. 1 Guanaco TP PRN QID PRN Magnesium Oxide 400 Mg Tablet 400 Mg PO BID Milk Of Magnesia (Magnesium Hydroxide) 2,400 Mg/10 Ml Oral.susp 2,400 Mg PO PRN QHS PRN Maalox Advanced Suspension (Mag Hydrox/Aluminum Hyd/Simeth) 355 Ml Oral.susp 15 Ml PO PRN AFTMEALHC PRN D3-50 (Cholecalciferol (Vitamin D3)) 50,000 Unit Capsule 50,000 Unit PO QTH Clonazepam 1 Mg Tablet 1 Mg PO TID Furosemide 40 Mg Tablet 80 Mg PO [id number] Hold for SBP less than 100. After held dose, reassess in 2 hours. If SBP is above threshold, administer dose as ordered. If SBP is below threshold, contact provider for additional instructions. I have reviewed the current psychotropics carefully including drug interactions. Risk benefit ratio favors no change other than as noted in my dictated progress note. Diagnosis: Problems: (1) Depression (2) Schizoaffective disorder (3) Anxiety disorder (4) Impulse control disorder (5) Schizoaffective disorder, chronic condition with acute exacerbation KALIN STARKS MD Feb 22, 2018 23:08
[2018-02-23 05:50] VITALS: BP 110/76
[2018-02-23] MEDS: INSULIN LISPRO 300 UNITS/3 ML INSULN.PEN. SQ SCH ×3 (07:34→17:00)
[2018-02-23] MEDS: metFORMIN 500 MG TABLET PO SCH ×2 (08:00→17:00)
[2018-02-23] MEDS: POTASSIUM CHLORIDE 20 MEQ TABLET.ER. PO SCH ×2 (08:00→17:00)
[2018-02-23] MEDS: traZODone 50 MG TABLET. PO SCH ×3 (09:00→17:00)
[2018-02-23] MEDS: PIOGLITAZONE 15 MG TABLET. PO SCH (09:00)
[2018-02-23] MEDS: busPIRone 10 MG TABLET. PO SCH ×3 (09:00→17:00)
[2018-02-23] MEDS: HALOPERIDOL 5 MG TABLET PO SCH (09:00)
[2018-02-23] MEDS: clonazePAM 1 MG TABLET PO SCH ×3 (09:00→19:25)
[2018-02-23] MEDS: AMANTADINE HCL 100 MG CAPSULE PO SCH ×2 (09:00→19:22)
[2018-02-23] MEDS: MAGNESIUM OXIDE 400 MG TABLET PO SCH ×2 (09:00→19:21)
[2018-02-23] MEDS: NYSTATIN TOPICAL POWDER 15GM BOTTLE. TP SCH ×2 (09:00→19:26)
[2018-02-23] MEDS: metOLazone 5 MG TABLET PO SCH (09:00)
[2018-02-23] MEDS: DIVALPROEX 125 MG CAP.SPRINK PO SCH ×3 (09:00→19:23)
[2018-02-23] MEDS: FUROSEMIDE 80 MG TABLET PO SCH ×2 (09:00→14:00)
[2018-02-23] MEDS: IPRATRPIUM/ALBUTEROL 0.5/2.5MG 3 ML NEBU. NEB SCH (09:34)
[2018-02-23] MEDS: ACETAMINOPHEN 325 MG TABLET PO PRN (12:43)
[2018-02-23 15:23] VITALS: BP 109/72
--- NOTE | 2018-02-23 18:28 | PN ---
DATE: 02/21/2018 PSYCHIATRIC PROGRESS NOTE This is a late entry 02/21/2018 covers elements not covered in my initial note. SUBJECTIVE: I met with the patient in the evening. The patient has had a difficult time. She slept 4-1/2 hours previous night. During the day, she has been yelling, paranoid, accusing others of stealing things from her noncompliant with medications, which she took it in hot chocolate, slept off and on during the day. REVIEW OF SYSTEMS: Ambulation impaired with walker/wheelchair. Vague somatic symptoms. No CV, , eye, ENT or pulmonary system symptoms on review. MENTAL STATUS EXAM: Oriented to herself and situation, speech coherent, rapid, loud at times. Abstraction fair, computation impaired, language function intact, attention span short, unable to do one step on serial 7s. No suicidal or homicidal ideation, but she is paranoid. LABORATORY DATA: Reviewed. IMPRESSION: Schizoaffective disorder, bipolar type, mixed with psychotic features. Rest unchanged. PLAN: Continue psychotropics from initial note. We will continue to increase Clozaril, post-labs being obtained. MAN Mary STARKS MD DR: [email or web address]/[email or web address] JOB#: [id number] / [id number]
[2018-02-23] MEDS: cloZAPine 25 MG TABLET PO SCH (19:21)
[2018-02-23] MEDS: traZODone 100 MG TABLET. PO SCH (19:21)
[2018-02-23] MEDS: MIRTAZAPINE 15 MG TABLET PO SCH (19:21)
--- NOTE | 2018-02-23 20:08 | PDOC ---
Exam Note: Napoleon Note: Please also refer to the separate dictated note~for this date of service dictated separately.~Patient seen individually. Discussed the patient with Nursing staff reviewed the chart.~Reviewed interim history and current functioning. Reviewed vital signs,~Labs/ Radiology~and current medications noted below. Continue current treatment with the changes noted in the dictated addendum note Assessment: Vital Signs: Vital Signs Date Time Temp Pulse Resp B/P (MAP) Pulse Ox O2 Delivery O2 Flow Rate FiO2 02/23/18 15:23 97.2 80 18 109/72 (84) 97 02/23/18 09:35 Room Air I&O Intake and Output 02/23/18 07:00 Intake Total 600 ml Balance 600 ml Intake Oral 600 ml Labs: Laboratory Tests Test 02/23/18 07:11 02/23/18 11:47 02/23/18 17:07 Glucose (Fingerstick) 109 mg/dL (70-99) H 197 mg/dL (70-99) H 124 mg/dL (70-99) H Current Medications: Meds: Current Medications Lorazepam (Ativan) 2 mg 1X ONCE IM ; Start 02/10/18 at 04:00; Stop 02/10/18 at 04:01; Status DC Diphenhydramine HCl (Benadryl) 50 mg 1X ONCE IM ; Start 02/10/18 at 04:00; Stop 02/10/18 at 04:01; Status DC Ziprasidone (Geodon Im) 20 mg 1X ONCE IM ; Start 02/10/18 at 04:00; Stop at 04:01; Status DC Multivitamins/ Minerals 10 ml/ Folic Acid 1 mg/ Thiamine HCl 100 mg/Lactated Ringer's 1,011.1 ml @ 1,000 mls/ hr 1X ONCE IV ; Start 02/10/18 at 03:45; Stop 02/10/18 at 04:45; Status DC Magnesium Hydroxide (Milk Of Magnesia) 2,400 mg 1X ONCE PO ; Start 02/10/18 at 05:30; Stop 02/10/18 at 05:32; Status DC Potassium Chloride (KCl Oral Soln) 40 meq 1X ONCE PO ; Start 02/10/18 at 05:30 ; Stop 02/10/18 at 05:32; Status DC Acetaminophen (Tylenol) 650 mg PRN Q6HRS PRN PO PAIN / TEMP Last administered on 02/23/18 12:43; Start 02/10/18 at 06:15 Multi-Ingredient Ointment (Analgesic Bison) 1 guanaco PRN QID PRN TP MUSCLE PAIN; Start 02/10/18 at 06:15 Al Hydroxide/Mg Hydroxide (Mylanta Plus Xs) 15 ml PRN AFTMEALHC PRN PO DYSPEPSIA; Start 02/10/18 at 06:15 Magnesium Hydroxide (Milk Of Magnesia) 2,400 mg PRN QHS PRN PO CONSTIPATION Last administered on 02/18/18 19:46; Start 02/10/18 at 06:15 Influenza Virus Vaccine (Afluria Trivalent [id number] Syringe) 0.5 ml ONCE ONCE VAX IM Last administered on 02/10/18 14:21; Start 02/10/18 at 09:00; Stop at 09:01; Status DC Vitamin D (Vitamin D3) 50,000 unit QTH PO Last administered on 02/20/18 16:39 ; Start 02/13/18 at 16:00 Albuterol/ Ipratropium (Duoneb) 3 ml DAILY NEB Last administered on 02/23/18 09:34; Start 02/10/18 at 09:00 Lactobacillus Rhamnosus (Culturelle) 1 cap BID PO Last administered on 09:03; Start 02/10/18 at 09:00; Stop 02/22/18 at 18:00; Status DC Potassium Chloride (Klor-Con) 40 meq BIDWMEALS PO Last administered on 09:03; Start 02/10/18 at 08:00 Amantadine HCl (Symmetrel) 100 mg BID PO Last administered on 02/23/18 19:22; Start 02/10/18 at 09:00 Buspirone HCl (Buspar) 10 mg 1300,1700 PO Last administered on 02/22/18 14:12 ; Start 02/10/18 at 13:00 Buspirone HCl (Buspar) 20 mg DAILY PO Last administered on 02/22/18 09:03; Start 02/10/18 at 09:00 Clonazepam (KlonoPIN) 1 mg TID PO Last administered on 9/30/18at 19:25; Start 02/10/18 at 09:00 Diltiazem HCl (Cardizem 24hr Cd) 120 mg DAILY PO Last administered on at 07:41; Start 02/10/18 at 09:00 Furosemide (Lasix) 80 mg BID92 PO Last administered on 02/22/18at 14:13; Start 02/10/18 at 09:00 Haloperidol (Haldol) 7.5 mg DAILY PO Last administered on 02/19/18at 09:05; Start 02/10/18 at 09:00; Stop 02/19/18 at 18:16; Status DC Non-Formulary Medication (Haloperidol Decanoate (Haldol Decanoate 100)) 450 mg Q4WK IM ; Start 02/10/18 at 09:00; Stop 02/10/18 at 16:12; Status DC Non-Formulary Medication (Insulin Aspart (Novolog Flexpen)) see protocol TIDWMEALS SQ ; Start 02/10/18 at 08:00; Status UNV Magnesium Oxide (Magnesium Oxide) 400 mg BID PO Last administered on 02/23/18at 19:21; Start 02/10/18 at 09:00 Metformin HCl (Glucophage) 500 mg BIDWMEALS PO Last administered on 02/22/18at 09:02; Start 02/10/18 at 08:00 Metolazone (Zaroxolyn) 5 mg DAILY PO Last administered on 02/21/18at 07:42; Start 02/10/18 at 09:00 Mirtazapine (Remeron) 15 mg QHS PO Last administered on 02/23/18at 19:21; Start 02/10/18 at 21:00 Pioglitazone HCl (Actos) 15 mg DAILY PO Last administered on 02/22/18at 09:03; Start 02/10/18 at 09:00 Trazodone HCl (Desyrel) 25 mg TID@0900,1300,1700 PO Last administered on 17:18; Start 02/10/18 at 09:00 Valproic Acid (Depakene) 750 mg TID PO Last administered on 02/17/18at 21:01; Start 02/10/18 at 09:00; Stop 02/18/18 at 08:06; Status DC Insulin Human Lispro (HumaLOG) 0-9 UNITS TIDWMEALS SQ Last administered on 02/23at 12:00; Start 02/10/18 at 08:00 Dextrose 12.5 gm PRN Q15MIN PRN IV SEE COMMENTS; Start 02/10/18 at 06:30 Olanzapine (ZyPREXA ZYDIS) 5 mg PRN Q2HR PRN PO PSYCHOSIS Last administered on 02/23/18at 15:48; Start 02/10/18 at 06:45 Haloperidol Decanoate (Haldol Decanoate Im Extended Release) 450 mg Q4WK IM ; Start 03/10/18 at 09:00 Trazodone HCl (Desyrel) 25 mg STK-MED ONCE .ROUTE ; Start 02/10/18 at 09:00; Stop 02/11/18 at 10:03; Status DC Trazodone HCl (Desyrel) 25 mg STK-MED ONCE .ROUTE ; Start 02/10/18 at 09:00; Stop 02/11/18 at 10:03; Status DC Trazodone HCl (Desyrel) 25 mg STK-MED ONCE .ROUTE ; Start 02/10/18 at 09:00; Stop 02/11/18 at 10:03; Status DC Trazodone HCl (Desyrel) 25 mg STK-MED ONCE .ROUTE ; Start 02/11/18 at 09:00; Stop 02/11/18 at 10:04; Status DC Clozapine (Clozaril) 25 mg HS PO Last administered on 02/16/18at 21:13; Start at 21:00; Stop 02/17/18 at 17:40; Status DC Nystatin (Nystop) 1 guanaco BID TP Last administered on 02/23/18at 19:26; Start at 09:00 Trazodone HCl (Desyrel) 100 mg PRN QHS PRN PO INSOMNIA, MAY REPEAT X1; Start at 17:00; Stop 02/16/18 at 22:42; Status DC Trazodone HCl (Desyrel) 100 mg QHS PO Last administered on 02/23/18at 19:21; Start 02/16/18 at 23:00 Trazodone HCl (Desyrel) 100 mg PRN QHS PRN PO insomnia Last administered on 19:46; Start 02/16/18 at 22:45 Clozapine (Clozaril) 50 mg HS PO Last administered on 02/23/18 19:21; Start at 21:00 Divalproex Sodium (Depakote Sprinkles) 750 mg TID PO Last administered on 19:23; Start 02/18/18 at 09:00 Haloperidol (Haldol) 5 mg DAILY PO Last administered on 02/22/18at 09:04; Start 02/20/18 at 09:00 Active Scripts Active Reported Duoneb 0.5-3(2.5) Mg/3 Ml (Albuterol/Ipratropium) 3 Ml Ampul.neb 3 Ml NEB DAILY Zyprexa Zydis (Olanzapine) 5 Mg Tab.rapdis 5 Mg PO PRN Q2HR PRN Buspirone Hcl 10 Mg Tablet 10 Mg PO BID@1300,1700 Valproic Acid (Valproate Sodium) 250 Mg/5 Ml Solution 750 Mg PO TID Novolog Flexpen (Insulin Aspart) 100 Unit/1 Ml Insuln.pen 0-9 Unit SQ TIDWMEALS <70 follow hypoglycemic protocol 70-150 0units if eating/ 0 if not eating 151-200 4 units if eating/ 0 units if not eating 201-250 5 units if eating/ 3 units if not eating 251-300 7 units if eating/ 4 units if not eating 301-350 9 units if eating/ 5 units if not eating > 351 Call Physician for futher orders Trazodone Hcl 100 Mg Tablet 200 Mg PO PRN QHS PRN Trazodone Hcl 50 Mg Tablet 25 Mg PO TID@0900,1300,1700 Culturelle (Lactobacillus Rhamnosus Gg) 1 Each Cap.sprink 1 Each PO BID Haloperidol 5 Mg Tablet 7.5 Mg PO DAILY Tylenol (Acetaminophen) 325 Mg Tablet 650 Mg PO PRN Q6HRS PRN Buspirone Hcl 10 Mg Tablet 20 Mg PO DAILY Theophylline Anhydrous 200 Mg Tab.er.12h 200 Mg PO BID Metolazone 5 Mg Tablet 5 Mg PO DAILY Metformin Hcl 500 Mg Tablet 500 Mg PO BIDWMEALS Cardizem Tablet (Diltiazem Hcl) 120 Mg Tablet 120 Mg PO DAILY Amantadine (Amantadine Hcl) 100 Mg Tablet 100 Mg PO BID Actos (Pioglitazone Hcl) 15 Mg Tablet 15 Mg PO DAILY Mirtazapine 15 Mg Tablet 15 Mg PO QHS Haldol Decanoate 100 (Haloperidol Decanoate) 100 Mg/1 Ml Ampul 450 Mg IM Q4WK Klor-Con M20 (Potassium Chloride) 20 Meq Tab.er.prt 40 Meq PO BIDWMEALS Analgesic Bison (Methyl Salicylate/Menthol) 28 Gm Oint...g. 1 Guanaco TP PRN QID PRN Magnesium Oxide 400 Mg Tablet 400 Mg PO BID Milk Of Magnesia (Magnesium Hydroxide) 2,400 Mg/10 Ml Oral.susp 2,400 Mg PO PRN QHS PRN Maalox Advanced Suspension (Mag Hydrox/Aluminum Hyd/Simeth) 355 Ml Oral.susp 15 Ml PO PRN AFTMEALHC PRN D3-50 (Cholecalciferol (Vitamin D3)) 50,000 Unit Capsule 50,000 Unit PO QTH Clonazepam 1 Mg Tablet 1 Mg PO TID Furosemide 40 Mg Tablet 80 Mg PO [id number] Hold for SBP less than 100. After held dose, reassess in 2 hours. If SBP is above threshold, administer dose as ordered. If SBP is below threshold, contact provider for additional instructions. I have reviewed the current psychotropics carefully including drug interactions. Risk benefit ratio favors no change other than as noted in my dictated progress note. Diagnosis: Problems: (1) Depression (2) Schizoaffective disorder (3) Anxiety disorder (4) Impulse control disorder (5) Schizoaffective disorder, chronic condition with acute exacerbation KALIN STARKS MD Feb 23, 2018 20:08
[2018-02-24 05:35] VITALS: BP 119/77
[2018-02-24 07:48] LABS: BASO # 0.1 x10^3/uL (0.0-0.2); BASO % 1 % (0-3); EOS # 0.1 x10^3/uL (0.0-0.7); EOS % 2 % (0-3); HEMATOCRIT 38.9 % (36.0-47.0); HEMOGLOBIN 12.3 g/dL (12.0-15.5); LYMPH # 2.1 x10^3/uL (1.0-4.8); LYMPH % 31 % (24-48); MEAN CORPUSCULAR HEMOGLOBIN 28 pg (25-35); MEAN CORPUSCULAR HGB CONC 32 g/dL (31-37); MEAN CORPUSCULAR VOLUME 88 fL (79-100); MONO # 0.7 x10^3/uL (0.0-1.1); MONO % 11 % (0-9); NEUT # 3.7 x10^3uL (1.8-7.7); NEUT % 55 % (31-73); PLATELET COUNT 241 x10^3/uL (140-400); RED BLOOD COUNT 4.43 x10^6/uL (3.50-5.40); RED CELL DISTRIBUTION WIDTH 16.6 % (11.5-14.5); WHITE BLOOD COUNT 6.7 x10^3/uL (4.0-11.0)
[2018-02-24] MEDS: busPIRone 10 MG TABLET. PO SCH ×3 (08:01→18:10)
[2018-02-24] MEDS: HALOPERIDOL 5 MG TABLET PO SCH (08:02)
[2018-02-24 08:03] LABS: ALBUMIN 3.3 g/dL (3.4-5.0); ALBUMIN/GLOBULIN RATIO 0.6 (1.0-1.7); CALCIUM 9.4 mg/dL (8.5-10.1); CREATININE 1.3 mg/dL (0.6-1.0); GFR 50.1; MAGNESIUM 2.3 mg/dL (1.8-2.4); POTASSIUM 3.1 mmol/L (3.5-5.1); TOTAL BILIRUBIN 0.2 mg/dL (0.2-1.0); TOTAL PROTEIN 8.4 g/dL (6.4-8.2)
[2018-02-24] MEDS: traZODone 50 MG TABLET. PO SCH ×3 (08:03→18:10)
[2018-02-24] MEDS: FUROSEMIDE 80 MG TABLET PO SCH ×2 (08:04→15:16)
[2018-02-24] MEDS: metFORMIN 500 MG TABLET PO SCH ×2 (08:04→18:10)
[2018-02-24] MEDS: clonazePAM 1 MG TABLET PO SCH ×3 (08:05→19:55)
[2018-02-24] MEDS: POTASSIUM CHLORIDE 20 MEQ TABLET.ER. PO SCH ×3 (09:40→19:56)
[2018-02-24] MEDS: INSULIN LISPRO 300 UNITS/3 ML INSULN.PEN. SQ SCH ×3 (09:41→18:13)
[2018-02-24] MEDS: metOLazone 5 MG TABLET PO SCH (09:42)
[2018-02-24] MEDS: MAGNESIUM OXIDE 400 MG TABLET PO SCH ×2 (09:42→19:55)
[2018-02-24] MEDS: PIOGLITAZONE 15 MG TABLET. PO SCH (09:42)
[2018-02-24] MEDS: AMANTADINE HCL 100 MG CAPSULE PO SCH ×2 (09:42→19:55)
[2018-02-24] MEDS: DIVALPROEX 125 MG CAP.SPRINK PO SCH ×3 (09:43→19:56)
[2018-02-24] MEDS: NYSTATIN TOPICAL POWDER 15GM BOTTLE. TP SCH ×2 (09:43→19:59)
[2018-02-24 16:24] VITALS: BP 123/84
[2018-02-24] MEDS: MIRTAZAPINE 15 MG TABLET PO SCH (19:55)
[2018-02-24] MEDS: traZODone 100 MG TABLET. PO SCH (19:55)
[2018-02-24] MEDS: cloZAPine 25 MG TABLET PO SCH (19:56)
--- NOTE | 2018-02-24 20:24 | PDOC ---
Exam Note: Napoleon Note: Please also refer to the separate dictated note~for this date of service dictated separately.~Patient seen individually. Discussed the patient with Nursing staff reviewed the chart.~Reviewed interim history and current functioning. Reviewed vital signs,~Labs/ Radiology~and current medications noted below. Continue current treatment with the changes noted in the dictated addendum note Assessment: Vital Signs: Vital Signs Date Time Temp Pulse Resp B/P (MAP) Pulse Ox O2 Delivery O2 Flow Rate FiO2 02/24/18 16:24 97.1 90 18 123/84 (97) 92 02/24/18 11:23 Room Air I&O Intake and Output 02/24/18 07:00 Intake Total 720 ml Balance 720 ml Intake Oral 720 ml # Voids 1 Labs: Laboratory Tests Test 02/24/18 07:29 02/24/18 07:34 02/24/18 11:54 02/24/18 17:05 White Blood Count 6.7 x10^3/uL (4.0-11.0) Red Blood Count 4.43 x10^6/uL (3.50-5.40) Hemoglobin 12.3 g/dL (12.0-15.5) Hematocrit 38.9 % (36.0-47.0) Mean Corpuscular Volume 88 fL (79-100) Mean Corpuscular Hemoglobin 28 pg (25-35) Mean Corpuscular Hemoglobin Concent 32 g/dL (31-37) Red Cell Distribution Width 16.6 % (11.5-14.5) H Platelet Count 241 x10^3/uL (140-400) Neutrophils (%) (Auto) 55 % (31-73) Lymphocytes (%) (Auto) 31 % (24-48) Monocytes (%) (Auto) 11 % (0-9) H Eosinophils (%) (Auto) 2 % (0-3) Basophils (%) (Auto) 1 % (0-3) Neutrophils # (Auto) 3.7 x10^3uL (1.8-7.7) Lymphocytes # (Auto) 2.1 x10^3/uL (1.0-4.8) Monocytes # (Auto) 0.7 x10^3/uL (0.0-1.1) Eosinophils # (Auto) 0.1 x10^3/uL (0.0-0.7) Basophils # (Auto) 0.1 x10^3/uL (0.0-0.2) Sodium Level 139 mmol/L (136-145) Potassium Level 3.1 mmol/L (3.5-5.1) L Chloride Level 95 mmol/L (98-107) L Carbon Dioxide Level 42 mmol/L (21-32) H Anion Gap 2 (6-14) L Blood Urea Nitrogen 28 mg/dL (7-20) H Creatinine 1.3 mg/dL (0.6-1.0) H Estimated GFR (Cockcroft-Gault) 50.1 BUN/Creatinine Ratio 22 (6-20) H Glucose Level 152 mg/dL (70-99) H Calcium Level 9.4 mg/dL (8.5-10.1) Magnesium Level 2.3 mg/dL (1.8-2.4) Total Bilirubin 0.2 mg/dL (0.2-1.0) Aspartate Amino Transferase (AST) 16 U/L (15-37) Alanine Aminotransferase (ALT) 19 U/L (14-59) Alkaline Phosphatase 107 U/L (46-116) Total Protein 8.4 g/dL (6.4-8.2) H Albumin 3.3 g/dL (3.4-5.0) L Albumin/Globulin Ratio 0.6 (1.0-1.7) L Glucose (Fingerstick) 155 mg/dL (70-99) H 197 mg/dL (70-99) H 215 mg/dL (70-99) H Current Medications: Meds: Current Medications Lorazepam (Ativan) 2 mg 1X ONCE IM ; Start 02/10/18 at 04:00; Stop 02/10/18 at 04:01; Status DC Diphenhydramine HCl (Benadryl) 50 mg 1X ONCE IM ; Start 02/10/18 at 04:00; Stop 02/10/18 at 04:01; Status DC Ziprasidone (Geodon Im) 20 mg 1X ONCE IM ; Start 02/10/18 at 04:00; Stop at 04:01; Status DC Multivitamins/ Minerals 10 ml/ Folic Acid 1 mg/ Thiamine HCl 100 mg/Lactated Ringer's 1,011.1 ml @ 1,000 mls/ hr 1X ONCE IV ; Start 02/10/18 at 03:45; Stop 02/10/18 at 04:45; Status DC Magnesium Hydroxide (Milk Of Magnesia) 2,400 mg 1X ONCE PO ; Start 02/10/18 at 05:30; Stop 02/10/18 at 05:32; Status DC Potassium Chloride (KCl Oral Soln) 40 meq 1X ONCE PO ; Start 02/10/18 at 05:30 ; Stop 02/10/18 at 05:32; Status DC Acetaminophen (Tylenol) 650 mg PRN Q6HRS PRN PO PAIN / TEMP Last administered on 02/23/18at 12:43; Start 02/10/18 at 06:15 Multi-Ingredient Ointment (Analgesic [place]) 1 guanaco PRN QID PRN TP MUSCLE PAIN; Start 02/10/18 at 06:15 Al Hydroxide/Mg Hydroxide (Mylanta Plus Xs) 15 ml PRN AFTMEALHC PRN PO DYSPEPSIA; Start 02/10/18 at 06:15 Magnesium Hydroxide (Milk Of Magnesia) 2,400 mg PRN QHS PRN PO CONSTIPATION Last administered on 02/18/18at 19:46; Start 02/10/18 at 06:15 Influenza Virus Vaccine (Afluria Trivalent [id number] Syringe) 0.5 ml ONCE ONCE VAX IM Last administered on 02/10/18at 14:21; Start 02/10/18 at 09:00; Stop at 09:01; Status DC Vitamin D (Vitamin D3) 50,000 unit QTH PO Last administered on 02/20/18at 16:39 ; Start 02/13/18 at 16:00 Albuterol/ Ipratropium (Duoneb) 3 ml DAILY NEB Last administered on 02/23/18at 09:34; Start 02/10/18 at 09:00 Lactobacillus Rhamnosus (Culturelle) 1 cap BID PO Last administered on at 09:03; Start 02/10/18 at 09:00; Stop 02/22/18 at 18:00; Status DC Potassium Chloride (Klor-Con) 40 meq BIDWMEALS PO Last administered on 19:56; Start 02/10/18 at 08:00 Amantadine HCl (Symmetrel) 100 mg BID PO Last administered on 02/24/18 19:55; Start 02/10/18 at 09:00 Buspirone HCl (Buspar) 10 mg 1300,1700 PO Last administered on 02/24/18 18:10 ; Start 02/10/18 at 13:00 Buspirone HCl (Buspar) 20 mg DAILY PO Last administered on 02/24/18 08:01; Start 02/10/18 at 09:00 Clonazepam (KlonoPIN) 1 mg TID PO Last administered on 02/24/18 19:55; Start 02/10/18 at 09:00 Diltiazem HCl (Cardizem 24hr Cd) 120 mg DAILY PO Last administered on 09:42; Start 02/10/18 at 09:00 Furosemide (Lasix) 80 mg BID92 PO Last administered on 02/24/18 15:16; Start 02/10/18 at 09:00 Haloperidol (Haldol) 7.5 mg DAILY PO Last administered on 02/19/18 09:05; Start 02/10/18 at 09:00; Stop 02/19/18 at 18:16; Status DC Non-Formulary Medication (Haloperidol Decanoate (Haldol Decanoate 100)) 450 mg Q4WK IM ; Start 02/10/18 at 09:00; Stop 02/10/18 at 16:12; Status DC Non-Formulary Medication (Insulin Aspart (Novolog Flexpen)) see protocol TIDWMEALS SQ ; Start 02/10/18 at 08:00; Status UNV Magnesium Oxide (Magnesium Oxide) 400 mg BID PO Last administered on 02/24/18 19:55; Start 02/10/18 at 09:00 Metformin HCl (Glucophage) 500 mg BIDWMEALS PO Last administered on 02/24/18 18:10; Start 02/10/18 at 08:00 Metolazone (Zaroxolyn) 5 mg DAILY PO Last administered on 02/24/18 09:42; Start 02/10/18 at 09:00 Mirtazapine (Remeron) 15 mg QHS PO Last administered on 02/24/18 19:55; Start 02/10/18 at 21:00 Pioglitazone HCl (Actos) 15 mg DAILY PO Last administered on 10/1/18at 09:42; Start 02/10/18 at 09:00 Trazodone HCl (Desyrel) 25 mg TID@0900,1300,1700 PO Last administered on at 18:10; Start 02/10/18 at 09:00 Valproic Acid (Depakene) 750 mg TID PO Last administered on 02/17/18at 21:01; Start 02/10/18 at 09:00; Stop 02/18/18 at 08:06; Status DC Insulin Human Lispro (HumaLOG) 0-9 UNITS TIDWMEALS SQ Last administered on 02/24at 18:13; Start 02/10/18 at 08:00 Dextrose 12.5 gm PRN Q15MIN PRN IV SEE COMMENTS; Start 02/10/18 at 06:30 Olanzapine (ZyPREXA ZYDIS) 5 mg PRN Q2HR PRN PO PSYCHOSIS Last administered on 02/23/18at 15:48; Start 02/10/18 at 06:45 Haloperidol Decanoate (Haldol Decanoate Im Extended Release) 450 mg Q4WK IM ; Start 03/10/18 at 09:00 Trazodone HCl (Desyrel) 25 mg STK-MED ONCE .ROUTE ; Start 02/10/18 at 09:00; Stop 02/11/18 at 10:03; Status DC Trazodone HCl (Desyrel) 25 mg STK-MED ONCE .ROUTE ; Start 02/10/18 at 09:00; Stop 02/11/18 at 10:03; Status DC Trazodone HCl (Desyrel) 25 mg STK-MED ONCE .ROUTE ; Start 02/10/18 at 09:00; Stop 02/11/18 at 10:03; Status DC Trazodone HCl (Desyrel) 25 mg STK-MED ONCE .ROUTE ; Start 02/11/18 at 09:00; Stop 02/11/18 at 10:04; Status DC Clozapine (Clozaril) 25 mg HS PO Last administered on 02/16/18at 21:13; Start at 21:00; Stop 02/17/18 at 17:40; Status DC Nystatin (Nystop) 1 guanaco BID TP Last administered on 02/24/18at 19:59; Start at 09:00 Trazodone HCl (Desyrel) 100 mg PRN QHS PRN PO INSOMNIA, MAY REPEAT X1; Start at 17:00; Stop 02/16/18 at 22:42; Status DC Trazodone HCl (Desyrel) 100 mg QHS PO Last administered on 02/24/18at 19:55; Start 02/16/18 at 23:00 Trazodone HCl (Desyrel) 100 mg PRN QHS PRN PO insomnia Last administered on at 19:46; Start 02/16/18 at 22:45 Clozapine (Clozaril) 50 mg HS PO Last administered on 02/23/18at 19:21; Start at 21:00; Stop 02/24/18 at 16:13; Status DC Divalproex Sodium (Depakote Sprinkles) 750 mg TID PO Last administered on at 19:56; Start 02/18/18 at 09:00 Haloperidol (Haldol) 5 mg DAILY PO Last administered on 02/24/18at 08:02; Start 02/20/18 at 09:00 Clozapine (Clozaril) 75 mg HS PO Last administered on 02/24/18at 19:56; Start 02/24/18 at 21:00 Active Scripts Active Reported Duoneb 0.5-3(2.5) Mg/3 Ml (Albuterol/Ipratropium) 3 Ml Ampul.neb 3 Ml NEB DAILY Zyprexa Zydis (Olanzapine) 5 Mg Tab.rapdis 5 Mg PO PRN Q2HR PRN Buspirone Hcl 10 Mg Tablet 10 Mg PO BID@1300,1700 Valproic Acid (Valproate Sodium) 250 Mg/5 Ml Solution 750 Mg PO TID Novolog Flexpen (Insulin Aspart) 100 Unit/1 Ml Insuln.pen 0-9 Unit SQ TIDWMEALS <70 follow hypoglycemic protocol 70-150 0units if eating/ 0 if not eating 151-200 4 units if eating/ 0 units if not eating 201-250 5 units if eating/ 3 units if not eating 251-300 7 units if eating/ 4 units if not eating 301-350 9 units if eating/ 5 units if not eating > 351 Call Physician for futher orders Trazodone Hcl 100 Mg Tablet 200 Mg PO PRN QHS PRN Trazodone Hcl 50 Mg Tablet 25 Mg PO TID@0900,1300,1700 Culturelle (Lactobacillus Rhamnosus Gg) 1 Each Cap.sprink 1 Each PO BID Haloperidol 5 Mg Tablet 7.5 Mg PO DAILY Tylenol (Acetaminophen) 325 Mg Tablet 650 Mg PO PRN Q6HRS PRN Buspirone Hcl 10 Mg Tablet 20 Mg PO DAILY Theophylline Anhydrous 200 Mg Tab.er.12h 200 Mg PO BID Metolazone 5 Mg Tablet 5 Mg PO DAILY Metformin Hcl 500 Mg Tablet 500 Mg PO BIDWMEALS Cardizem Tablet (Diltiazem Hcl) 120 Mg Tablet 120 Mg PO DAILY Amantadine (Amantadine Hcl) 100 Mg Tablet 100 Mg PO BID Actos (Pioglitazone Hcl) 15 Mg Tablet 15 Mg PO DAILY Mirtazapine 15 Mg Tablet 15 Mg PO QHS Haldol Decanoate 100 (Haloperidol Decanoate) 100 Mg/1 Ml Ampul 450 Mg IM Q4WK Klor-Con M20 (Potassium Chloride) 20 Meq Tab.er.prt 40 Meq PO BIDWMEALS Analgesic [place] (Methyl Salicylate/Menthol) 28 Gm Oint...g. 1 [place]an[place] TP PRN QID PRN Magnesium Oxide 400 Mg Tablet 400 Mg PO BID Milk Of Magnesia (Magnesium Hydroxide) 2,400 Mg/10 Ml Oral.susp 2,400 Mg PO PRN QHS PRN Maalox Advanced Suspension (Mag Hydrox/Aluminum Hyd/Simeth) 355 Ml Oral.susp 15 Ml PO PRN AFTMEALHC PRN D3-50 (Cholecalciferol (Vitamin D3)) 50,000 Unit Capsule 50,000 Unit PO QTH Clonazepam 1 Mg Tablet 1 Mg PO TID Furosemide 40 Mg Tablet 80 Mg PO [id number] Hold for SBP less than 100. After held dose, reassess in 2 hours. If SBP is above threshold, administer dose as ordered. If SBP is below threshold, contact provider for additional instructions. I have reviewed the current psychotropics carefully including drug interactions. Risk benefit ratio favors no change other than as noted in my dictated progress note. Diagnosis: Problems: (1) Depression (2) Schizoaffective disorder (3) Anxiety disorder (4) Impulse control disorder (5) Schizoaffective disorder, chronic condition with acute exacerbation KALIN STARKS MD Feb 24, 2018 20:24
--- NOTE | 2018-02-24 23:18 | PN ---
DATE: 02/22/2018 PSYCHIATRIC PROGRESS NOTE This late entry 02/22/2018 covers elements not covered in my initial note. SUBJECTIVE: I met with the patient in the evening. Overall, the patient continues to have a difficult day. She is labile, yelling at times, refusing medications, paranoid, irritable, obsessed with going to the toilet. REVIEW OF SYSTEMS: Ambulation impaired with walker. No CV, , pulmonary, eye, ENT system symptoms on review. Reliability poor. MENTAL STATUS EXAM: Oriented to herself and situation. Speech coherent, rapid, loud at times. Abstraction fair, computation impaired, language function intact, attention span short. Mood and affect remain labile. LABORATORY DATA: Reviewed. IMPRESSION: Schizoaffective disorder, bipolar type, mixed with psychotic features; anxiety disorder, unspecified; impulse control disorder, unspecified. PLAN: Continue psychotropics from initial note. Valproic acid level is therapeutic at 55. KALIN STARKS MD DR: TRACIE/karli JOB#: [id number] / [id number]
--- NOTE | 2018-02-24 23:22 | PN ---
DATE: 02/23/2018 This late entry 02/23/2018 covers elements not covered in my initial note. SUBJECTIVE: I met with the patient in the evening. The patient slept 6-1/4 hours previous night. She has continued to have a difficult day, refusing medications. Oral intake is poor. Received Zyprexa p.r.n.; labile, yelling, paranoid. REVIEW OF SYSTEMS: Ambulation impaired with walker. No CV, , pulmonary, eye system symptoms on review. MENTAL STATUS EXAM: The patient is oriented to herself and situation. Speech is coherent, loud. Abstraction fair, computation impaired, language function intact, attention span short. Mood and affect remain somewhat labile. LABORATORY DATA: Reviewed. We will be repeating absolute neutrophil count CBC on 02/24/2018 and then consider increasing Clozaril. IMPRESSION: Schizoaffective disorder, bipolar type, mixed with psychotic features; anxiety disorder, unspecified; impulse control disorder, unspecified. PLAN: No change from initial note and may need to increase Clozaril on 02/24/2018 depending on labs. MAN Mary STARKS MD DR: TRACIE/karli JOB#: [id number] / [id number]
[2018-02-25 05:37] VITALS: BP 170/79
[2018-02-25 07:33] LABS: VAL ACID 58 mcg/mL (50-100)
[2018-02-25] MEDS: FUROSEMIDE 80 MG TABLET PO SCH ×2 (08:57→13:22)
[2018-02-25] MEDS: AMANTADINE HCL 100 MG CAPSULE PO SCH ×2 (08:57→19:52)
[2018-02-25] MEDS: PIOGLITAZONE 15 MG TABLET. PO SCH (08:57)
[2018-02-25] MEDS: HALOPERIDOL 5 MG TABLET PO SCH (08:57)
[2018-02-25] MEDS: metFORMIN 500 MG TABLET PO SCH ×3 (08:58→17:59)
[2018-02-25] MEDS: busPIRone 10 MG TABLET. PO SCH ×4 (08:58→18:00)
[2018-02-25] MEDS: DIVALPROEX 125 MG CAP.SPRINK PO SCH ×3 (08:58→19:52)
[2018-02-25] MEDS: metOLazone 5 MG TABLET PO SCH (08:58)
[2018-02-25] MEDS: clonazePAM 1 MG TABLET PO SCH ×3 (09:00→19:53)
[2018-02-25] MEDS: traZODone 50 MG TABLET. PO SCH ×4 (09:00→18:00)
[2018-02-25] MEDS: MAGNESIUM OXIDE 400 MG TABLET PO SCH ×2 (09:13→19:52)
[2018-02-25] MEDS: INSULIN LISPRO 300 UNITS/3 ML INSULN.PEN. SQ SCH ×3 (09:20→18:01)
[2018-02-25] MEDS: NYSTATIN TOPICAL POWDER 15GM BOTTLE. TP SCH ×2 (09:21→19:53)
[2018-02-25] MEDS: IPRATRPIUM/ALBUTEROL 0.5/2.5MG 3 ML NEBU. NEB SCH (09:30)
[2018-02-25 16:06] VITALS: BP 110/75
[2018-02-25] MEDS: POTASSIUM CHLORIDE 20 MEQ TABLET.ER. PO SCH ×2 (17:38→18:00)
[2018-02-25] MEDS: traZODone 100 MG TABLET. PO SCH (19:52)
[2018-02-25] MEDS: MIRTAZAPINE 15 MG TABLET PO SCH (19:52)
[2018-02-25] MEDS: cloZAPine 25 MG TABLET PO SCH (19:52)
--- NOTE | 2018-02-25 20:49 | PDOC ---
Exam Note: Napoleon Note: Please also refer to the separate dictated note~for this date of service dictated separately.~Patient seen individually. Discussed the patient with Nursing staff reviewed the chart.~Reviewed interim history and current functioning. Reviewed vital signs,~Labs/ Radiology~and current medications noted below. Continue current treatment with the changes noted in the dictated addendum note Assessment: Vital Signs: Vital Signs Date Time Temp Pulse Resp B/P (MAP) Pulse Ox O2 Delivery O2 Flow Rate FiO2 02/25/18 16:06 97.1 87 18 110/75 (87) 96 Room Air I&O Intake and Output 02/25/18 07:00 Intake Total 480 ml Balance 480 ml Intake Oral 480 ml # Bowel Movements 2 Labs: Laboratory Tests Test 02/24/18 22:41 02/25/18 06:53 02/25/18 07:31 02/25/18 12:21 Glucose (Fingerstick) 119 mg/dL (70-99) H 159 mg/dL (70-99) H 187 mg/dL (70-99) H Valproic Acid Level 58 mcg/mL (50-100) Valproic Acid Last Dose Date 02/24/18 Valproic Acid Last Dose Time 2100 Test 02/25/18 16:28 02/25/18 19:34 Glucose (Fingerstick) 223 mg/dL (70-99) H 149 mg/dL (70-99) H Current Medications: Meds: Current Medications Lorazepam (Ativan) 2 mg 1X ONCE IM ; Start 02/10/18 at 04:00; Stop 02/10/18 at 04:01; Status DC Diphenhydramine HCl (Benadryl) 50 mg 1X ONCE IM ; Start 02/10/18 at 04:00; Stop 02/10/18 at 04:01; Status DC Ziprasidone (Geodon Im) 20 mg 1X ONCE IM ; Start 02/10/18 at 04:00; Stop at 04:01; Status DC Multivitamins/ Minerals 10 ml/ Folic Acid 1 mg/ Thiamine HCl 100 mg/Lactated Ringer's 1,011.1 ml @ 1,000 mls/ hr 1X ONCE IV ; Start 02/10/18 at 03:45; Stop 02/10/18 at 04:45; Status DC Magnesium Hydroxide (Milk Of Magnesia) 2,400 mg 1X ONCE PO ; Start 02/10/18 at 05:30; Stop 02/10/18 at 05:32; Status DC Potassium Chloride (KCl Oral Soln) 40 meq 1X ONCE PO ; Start 02/10/18 at 05:30 ; Stop 02/10/18 at 05:32; Status DC Acetaminophen (Tylenol) 650 mg PRN Q6HRS PRN PO PAIN / TEMP Last administered on 02/23/18at 12:43; Start 02/10/18 at 06:15 Multi-Ingredient Ointment (Analgesic [place]) 1 guanaco PRN QID PRN TP MUSCLE PAIN; Start 02/10/18 at 06:15 Al Hydroxide/Mg Hydroxide (Mylanta Plus Xs) 15 ml PRN AFTMEALHC PRN PO DYSPEPSIA; Start 02/10/18 at 06:15 Magnesium Hydroxide (Milk Of Magnesia) 2,400 mg PRN QHS PRN PO CONSTIPATION Last administered on 02/18/18at 19:46; Start 02/10/18 at 06:15 Influenza Virus Vaccine (Afluria Trivalent [id number] Syringe) 0.5 ml ONCE ONCE VAX IM Last administered on 02/10/18at 14:21; Start 02/10/18 at 09:00; Stop at 09:01; Status DC Vitamin D (Vitamin D3) 50,000 unit QTH PO Last administered on 02/20/18at 16:39 ; Start 02/13/18 at 16:00 Albuterol/ Ipratropium (Duoneb) 3 ml DAILY NEB Last administered on 02/25/18 09:30; Start 02/10/18 at 09:00 Lactobacillus Rhamnosus (Culturelle) 1 cap BID PO Last administered on at 09:03; Start 02/10/18 at 09:00; Stop 02/22/18 at 18:00; Status DC Potassium Chloride (Klor-Con) 40 meq BIDWMEALS PO Last administered on 18:00; Start 02/10/18 at 08:00 Amantadine HCl (Symmetrel) 100 mg BID PO Last administered on 02/25/18at 19:52; Start 02/10/18 at 09:00 Buspirone HCl (Buspar) 10 mg 1300,1700 PO Last administered on 02/25/18 18:00 ; Start 02/10/18 at 13:00 Buspirone HCl (Buspar) 20 mg DAILY PO Last administered on 02/25/18 08:58; Start 02/10/18 at 09:00 Clonazepam (KlonoPIN) 1 mg TID PO Last administered on 02/25/18 19:53; Start 02/10/18 at 09:00 Diltiazem HCl (Cardizem 24hr Cd) 120 mg DAILY PO Last administered on 08:58; Start 02/10/18 at 09:00 Furosemide (Lasix) 80 mg BID92 PO Last administered on 02/25/18 13:22; Start 02/10/18 at 09:00 Haloperidol (Haldol) 7.5 mg DAILY PO Last administered on 02/19/18 09:05; Start 02/10/18 at 09:00; Stop 02/19/18 at 18:16; Status DC Non-Formulary Medication (Haloperidol Decanoate (Haldol Decanoate 100)) 450 mg Q4WK IM ; Start 02/10/18 at 09:00; Stop 02/10/18 at 16:12; Status DC Non-Formulary Medication (Insulin Aspart (Novolog Flexpen)) see protocol TIDWMEALS SQ ; Start 02/10/18 at 08:00; Status UNV Magnesium Oxide (Magnesium Oxide) 400 mg BID PO Last administered on 02/25/18 19:52; Start 02/10/18 at 09:00 Metformin HCl (Glucophage) 500 mg BIDWMEALS PO Last administered on 02/25/18 17:59; Start 02/10/18 at 08:00 Metolazone (Zaroxolyn) 5 mg DAILY PO Last administered on 02/25/18 08:58; Start 02/10/18 at 09:00 Mirtazapine (Remeron) 15 mg QHS PO Last administered on 02/25/18 19:52; Start 02/10/18 at 21:00 Pioglitazone HCl (Actos) 15 mg DAILY PO Last administered on 02/25/18 08:57; Start 02/10/18 at 09:00 Trazodone HCl (Desyrel) 25 mg TID@0900,1300,1700 PO Last administered on at 18:00; Start 02/10/18 at 09:00 Valproic Acid (Depakene) 750 mg TID PO Last administered on 02/17/18at 21:01; Start 02/10/18 at 09:00; Stop 02/18/18 at 08:06; Status DC Insulin Human Lispro (HumaLOG) 0-9 UNITS TIDWMEALS SQ Last administered on 02/25at 18:01; Start 02/10/18 at 08:00 Dextrose 12.5 gm PRN Q15MIN PRN IV SEE COMMENTS; Start 02/10/18 at 06:30 Olanzapine (ZyPREXA ZYDIS) 5 mg PRN Q2HR PRN PO PSYCHOSIS Last administered on 02/25/18at 13:34; Start 02/10/18 at 06:45 Haloperidol Decanoate (Haldol Decanoate Im Extended Release) 450 mg Q4WK IM ; Start 03/10/18 at 09:00 Trazodone HCl (Desyrel) 25 mg STK-MED ONCE .ROUTE ; Start 02/10/18 at 09:00; Stop 02/11/18 at 10:03; Status DC Trazodone HCl (Desyrel) 25 mg STK-MED ONCE .ROUTE ; Start 02/10/18 at 09:00; Stop 02/11/18 at 10:03; Status DC Trazodone HCl (Desyrel) 25 mg STK-MED ONCE .ROUTE ; Start 02/10/18 at 09:00; Stop 02/11/18 at 10:03; Status DC Trazodone HCl (Desyrel) 25 mg STK-MED ONCE .ROUTE ; Start 02/11/18 at 09:00; Stop 02/11/18 at 10:04; Status DC Clozapine (Clozaril) 25 mg HS PO Last administered on 02/16/18at 21:13; Start at 21:00; Stop 02/17/18 at 17:40; Status DC Nystatin (Nystop) 1 guanaco BID TP Last administered on 02/25/18at 19:53; Start at 09:00 Trazodone HCl (Desyrel) 100 mg PRN QHS PRN PO INSOMNIA, MAY REPEAT X1; Start at 17:00; Stop 02/16/18 at 22:42; Status DC Trazodone HCl (Desyrel) 100 mg QHS PO Last administered on 02/25/18 19:52; Start 02/16/18 at 23:00 Trazodone HCl (Desyrel) 100 mg PRN QHS PRN PO insomnia Last administered on 19:46; Start 02/16/18 at 22:45 Clozapine (Clozaril) 50 mg HS PO Last administered on 02/23/18at 19:21; Start at 21:00; Stop 02/24/18 at 16:13; Status DC Divalproex Sodium (Depakote Sprinkles) 750 mg TID PO Last administered on 19:52; Start 02/18/18 at 09:00 Haloperidol (Haldol) 5 mg DAILY PO Last administered on 02/25/18 08:57; Start 02/20/18 at 09:00 Clozapine (Clozaril) 75 mg HS PO Last administered on 02/25/18 19:52; Start 02/24/18 at 21:00 Active Scripts Active Reported Duoneb 0.5-3(2.5) Mg/3 Ml (Albuterol/Ipratropium) 3 Ml Ampul.neb 3 Ml NEB DAILY Zyprexa Zydis (Olanzapine) 5 Mg Tab.rapdis 5 Mg PO PRN Q2HR PRN Buspirone Hcl 10 Mg Tablet 10 Mg PO BID@1300,1700 Valproic Acid (Valproate Sodium) 250 Mg/5 Ml Solution 750 Mg PO TID Novolog Flexpen (Insulin Aspart) 100 Unit/1 Ml Insuln.pen 0-9 Unit SQ TIDWMEALS <70 follow hypoglycemic protocol 70-150 0units if eating/ 0 if not eating 151-200 4 units if eating/ 0 units if not eating 201-250 5 units if eating/ 3 units if not eating 251-300 7 units if eating/ 4 units if not eating 301-350 9 units if eating/ 5 units if not eating > 351 Call Physician for futher orders Trazodone Hcl 100 Mg Tablet 200 Mg PO PRN QHS PRN Trazodone Hcl 50 Mg Tablet 25 Mg PO TID@0900,1300,1700 Culturelle (Lactobacillus Rhamnosus Gg) 1 Each Cap.sprink 1 Each PO BID Haloperidol 5 Mg Tablet 7.5 Mg PO DAILY Tylenol (Acetaminophen) 325 Mg Tablet 650 Mg PO PRN Q6HRS PRN Buspirone Hcl 10 Mg Tablet 20 Mg PO DAILY Theophylline Anhydrous 200 Mg Tab.er.12h 200 Mg PO BID Metolazone 5 Mg Tablet 5 Mg PO DAILY Metformin Hcl 500 Mg Tablet 500 Mg PO BIDWMEALS Cardizem Tablet (Diltiazem Hcl) 120 Mg Tablet 120 Mg PO DAILY Amantadine (Amantadine Hcl) 100 Mg Tablet 100 Mg PO BID Actos (Pioglitazone Hcl) 15 Mg Tablet 15 Mg PO DAILY Mirtazapine 15 Mg Tablet 15 Mg PO QHS Haldol Decanoate 100 (Haloperidol Decanoate) 100 Mg/1 Ml Ampul 450 Mg IM Q4WK Klor-Con M20 (Potassium Chloride) 20 Meq Tab.er.prt 40 Meq PO BIDWMEALS Analgesic [place] (Methyl Salicylate/Menthol) 28 Gm Oint...g. 1 [place] TP PRN QID PRN Magnesium Oxide 400 Mg Tablet 400 Mg PO BID Milk Of Magnesia (Magnesium Hydroxide) 2,400 Mg/10 Ml Oral.susp 2,400 Mg PO PRN QHS PRN Maalox Advanced Suspension (Mag Hydrox/Aluminum Hyd/Simeth) 355 Ml Oral.susp 15 Ml PO PRN AFTMEALHC PRN D3-50 (Cholecalciferol (Vitamin D3)) 50,000 Unit Capsule 50,000 Unit PO QTH Clonazepam 1 Mg Tablet 1 Mg PO TID Furosemide 40 Mg Tablet 80 Mg PO [id number] Hold for SBP less than 100. After held dose, reassess in 2 hours. If SBP is above threshold, administer dose as ordered. If SBP is below threshold, contact provider for additional instructions. I have reviewed the current psychotropics carefully including drug interactions. Risk benefit ratio favors no change other than as noted in my dictated progress note. Diagnosis: Problems: (1) Depression (2) Schizoaffective disorder (3) Anxiety disorder (4) Impulse control disorder (5) Schizoaffective disorder, chronic condition with acute exacerbation KALIN STARKS MD Feb 25, 2018 20:49
--- NOTE | 2018-02-25 22:50 | PN ---
DATE: 02/24/2018 This is a late entry for 02/24/2018 covers elements not covered in my initial note. SUBJECTIVE: I met with the patient evening of 02/24/2018. The patient has had a difficult day once again. She has been refusing her medications, refusing oral intake. Received Zyprexa p.r.n. Slept just 3 hours previous night, yelling at times, high-pitched voice, meds have to be hidden in food and drinks and ice-cream, combative and she was given insulin, absolute neutrophil count is 3.7, which is adequate for the Clozaril and we will increase the Clozaril from 50 mg at bedtime to 75 mg at bedtime. REVIEW OF SYSTEMS: Ambulation impaired with walker. No CV, , pulmonary, eye, ENT system symptoms on review. She has vague somatic symptoms. MENTAL STATUS EXAM: Oriented to herself and situation. Speech as noted, loud, labile at times. Abstraction fair, computation impaired, language function intact, attention span short. Mood and affect remains quite labile. LABORATORY DATA: Reviewed. IMPRESSION: Schizoaffective disorder, bipolar type, mixed with psychotic features, in partial remission; anxiety disorder, unspecified; impulse control disorder, unspecified. PLAN: Increase Clozaril to 75 mg at bedtime. Continue weekly CBCs and absolute neutrophil counts. Maintain Haldol Decanoate and oral Haldol, the latter was reduced. Maintain BuSpar, Klonopin, amantadine, Depakote Sprinkles 750 t.i.d., level therapeutic at 55, trazodone 25 mg t.i.d. We will gradually reduce all of these depending on how she does on the Clozaril increase. MAN Mary STARKS MD DR: TRACIE/karli JOB#: [id number] / [id number]
[2018-02-26 05:26] VITALS: BP 146/83
[2018-02-26] MEDS: DIVALPROEX 125 MG CAP.SPRINK PO SCH ×4 (08:21→21:00)
[2018-02-26] MEDS: AMANTADINE HCL 100 MG CAPSULE PO SCH (08:21)
[2018-02-26] MEDS: busPIRone 10 MG TABLET. PO SCH ×3 (08:22→18:47)
[2018-02-26] MEDS: traZODone 50 MG TABLET. PO SCH ×3 (08:23→18:47)
[2018-02-26] MEDS: HALOPERIDOL 5 MG TABLET PO SCH (08:23)
[2018-02-26] MEDS: metFORMIN 500 MG TABLET PO SCH ×2 (08:23→18:47)
[2018-02-26] MEDS: FUROSEMIDE 80 MG TABLET PO SCH ×2 (08:23→13:16)
[2018-02-26] MEDS: metOLazone 5 MG TABLET PO SCH (08:23)
[2018-02-26] MEDS: NYSTATIN TOPICAL POWDER 15GM BOTTLE. TP SCH ×3 (08:23→21:00)
[2018-02-26] MEDS: PIOGLITAZONE 15 MG TABLET. PO SCH (08:23)
[2018-02-26] MEDS: MAGNESIUM OXIDE 400 MG TABLET PO SCH ×3 (08:23→21:00)
[2018-02-26] MEDS: POTASSIUM CHLORIDE 20 MEQ TABLET.ER. PO SCH ×2 (08:24→18:47)
[2018-02-26] MEDS: clonazePAM 1 MG TABLET PO SCH ×4 (08:25→21:00)
[2018-02-26] MEDS: INSULIN LISPRO 300 UNITS/3 ML INSULN.PEN. SQ SCH ×3 (08:26→18:32)
[2018-02-26] MEDS: IPRATRPIUM/ALBUTEROL 0.5/2.5MG 3 ML NEBU. NEB SCH (09:49)
[2018-02-26 16:42] VITALS: BP 105/62
[2018-02-26] MEDS: cloZAPine 25 MG TABLET PO SCH ×2 (20:50→21:00)
[2018-02-26] MEDS: MIRTAZAPINE 15 MG TABLET PO SCH ×2 (20:50→21:00)
[2018-02-26] MEDS: traZODone 100 MG TABLET. PO SCH ×2 (20:51→21:00)
--- NOTE | 2018-02-26 21:15 | PDOC ---
Exam Note: Napoleon Note: Please also refer to the separate dictated note~for this date of service dictated separately.~Patient seen individually. Discussed the patient with Nursing staff reviewed the chart.~Reviewed interim history and current functioning. Reviewed vital signs,~Labs/ Radiology~and current medications noted below. Continue current treatment with the changes noted in the dictated addendum note Assessment: Vital Signs: Vital Signs Date Time Temp Pulse Resp B/P (MAP) Pulse Ox O2 Delivery O2 Flow Rate FiO2 02/26/18 16:42 97.8 85 18 105/62 (76) 92 02/26/18 09:50 Room Air I&O Intake and Output 02/26/18 07:00 Intake Total 480 ml Balance 480 ml Intake Oral 480 ml Labs: Laboratory Tests Test 02/26/18 07:24 02/26/18 11:55 02/26/18 16:33 02/26/18 19:13 Glucose (Fingerstick) 151 mg/dL (70-99) H 141 mg/dL (70-99) H 177 mg/dL (70-99) H 218 mg/dL (70-99) H Current Medications: Meds: Current Medications Lorazepam (Ativan) 2 mg 1X ONCE IM ; Start 02/10/18 at 04:00; Stop 02/10/18 at 04:01; Status DC Diphenhydramine HCl (Benadryl) 50 mg 1X ONCE IM ; Start 02/10/18 at 04:00; Stop 02/10/18 at 04:01; Status DC Ziprasidone (Geodon Im) 20 mg 1X ONCE IM ; Start 02/10/18 at 04:00; Stop at 04:01; Status DC Multivitamins/ Minerals 10 ml/ Folic Acid 1 mg/ Thiamine HCl 100 mg/Lactated Ringer's 1,011.1 ml @ 1,000 mls/ hr 1X ONCE IV ; Start 02/10/18 at 03:45; Stop 02/10/18 at 04:45; Status DC Magnesium Hydroxide (Milk Of Magnesia) 2,400 mg 1X ONCE PO ; Start 02/10/18 at 05:30; Stop 02/10/18 at 05:32; Status DC Potassium Chloride (KCl Oral Soln) 40 meq 1X ONCE PO ; Start 02/10/18 at 05:30 ; Stop 02/10/18 at 05:32; Status DC Acetaminophen (Tylenol) 650 mg PRN Q6HRS PRN PO PAIN / TEMP Last administered on 02/23/18 12:43; Start 02/10/18 at 06:15 Multi-Ingredient Ointment (Analgesic [place]) 1 guanaco PRN QID PRN TP MUSCLE PAIN; Start 02/10/18 at 06:15 Al Hydroxide/Mg Hydroxide (Mylanta Plus Xs) 15 ml PRN AFTMEALHC PRN PO DYSPEPSIA; Start 02/10/18 at 06:15 Magnesium Hydroxide (Milk Of Magnesia) 2,400 mg PRN QHS PRN PO CONSTIPATION Last administered on 02/18/18 19:46; Start 02/10/18 at 06:15 Influenza Virus Vaccine (Afluria Trivalent [id number] Syringe) 0.5 ml ONCE ONCE VAX IM Last administered on 02/10/18 14:21; Start 02/10/18 at 09:00; Stop at 09:01; Status DC Vitamin D (Vitamin D3) 50,000 unit QTH PO Last administered on 02/20/18at 16:39 ; Start 02/13/18 at 16:00 Albuterol/ Ipratropium (Duoneb) 3 ml DAILY NEB Last administered on 02/26/18 09:49; Start 02/10/18 at 09:00 Lactobacillus Rhamnosus (Culturelle) 1 cap BID PO Last administered on 09:03; Start 02/10/18 at 09:00; Stop 02/22/18 at 18:00; Status DC Potassium Chloride (Klor-Con) 40 meq BIDWMEALS PO Last administered on 08:24; Start 02/10/18 at 08:00 Amantadine HCl (Symmetrel) 100 mg BID PO Last administered on 02/26/18 08:21; Start 02/10/18 at 09:00; Stop 02/26/18 at 11:24; Status DC Buspirone HCl (Buspar) 10 mg 1300,1700 PO Last administered on 02/26/18 12:54 ; Start 02/10/18 at 13:00 Buspirone HCl (Buspar) 20 mg DAILY PO Last administered on 02/26/18 08:22; Start 02/10/18 at 09:00 Clonazepam (KlonoPIN) 1 mg TID PO Last administered on 02/26/18 20:52; Start 02/10/18 at 09:00 Diltiazem HCl (Cardizem 24hr Cd) 120 mg DAILY PO Last administered on 08:23; Start 02/10/18 at 09:00 Furosemide (Lasix) 80 mg BID92 PO Last administered on 02/26/18 13:16; Start 02/10/18 at 09:00 Haloperidol (Haldol) 7.5 mg DAILY PO Last administered on 02/19/18 09:05; Start 02/10/18 at 09:00; Stop 02/19/18 at 18:16; Status DC Non-Formulary Medication (Haloperidol Decanoate (Haldol Decanoate 100)) 450 mg Q4WK IM ; Start 02/10/18 at 09:00; Stop 02/10/18 at 16:12; Status DC Non-Formulary Medication (Insulin Aspart (Novolog Flexpen)) see protocol TIDWMEALS SQ ; Start 02/10/18 at 08:00; Status UNV Magnesium Oxide (Magnesium Oxide) 400 mg BID PO Last administered on 02/26/18 20:51; Start 02/10/18 at 09:00 Metformin HCl (Glucophage) 500 mg BIDWMEALS PO Last administered on 02/26/18 08:23; Start 02/10/18 at 08:00 Metolazone (Zaroxolyn) 5 mg DAILY PO Last administered on 02/26/18 08:23; Start 02/10/18 at 09:00 Mirtazapine (Remeron) 15 mg QHS PO Last administered on 02/26/18 20:50; Start 02/10/18 at 21:00 Pioglitazone HCl (Actos) 15 mg DAILY PO Last administered on 02/26/18 08:23; Start 02/10/18 at 09:00 Trazodone HCl (Desyrel) 25 mg TID@0900,1300,1700 PO Last administered on 12:54; Start 02/10/18 at 09:00 Valproic Acid (Depakene) 750 mg TID PO Last administered on 9/24/18at 21:01; Start 02/10/18 at 09:00; Stop 02/18/18 at 08:06; Status DC Insulin Human Lispro (HumaLOG) 0-9 UNITS TIDWMEALS SQ Last administered on 02/26at 18:32; Start 02/10/18 at 08:00 Dextrose 12.5 gm PRN Q15MIN PRN IV SEE COMMENTS; Start 02/10/18 at 06:30 Olanzapine (ZyPREXA ZYDIS) 5 mg PRN Q2HR PRN PO PSYCHOSIS Last administered on 02/25/18at 13:34; Start 02/10/18 at 06:45 Haloperidol Decanoate (Haldol Decanoate Im Extended Release) 450 mg Q4WK IM ; Start 03/10/18 at 09:00 Trazodone HCl (Desyrel) 25 mg STK-MED ONCE .ROUTE ; Start 02/10/18 at 09:00; Stop 02/11/18 at 10:03; Status DC Trazodone HCl (Desyrel) 25 mg STK-MED ONCE .ROUTE ; Start 02/10/18 at 09:00; Stop 02/11/18 at 10:03; Status DC Trazodone HCl (Desyrel) 25 mg STK-MED ONCE .ROUTE ; Start 02/10/18 at 09:00; Stop 02/11/18 at 10:03; Status DC Trazodone HCl (Desyrel) 25 mg STK-MED ONCE .ROUTE ; Start 02/11/18 at 09:00; Stop 02/11/18 at 10:04; Status DC Clozapine (Clozaril) 25 mg HS PO Last administered on 02/16/18at 21:13; Start at 21:00; Stop 02/17/18 at 17:40; Status DC Nystatin (Nystop) 1 guanaco BID TP Last administered on 02/26/18at 20:51; Start at 09:00 Trazodone HCl (Desyrel) 100 mg PRN QHS PRN PO INSOMNIA, MAY REPEAT X1; Start at 17:00; Stop 02/16/18 at 22:42; Status DC Trazodone HCl (Desyrel) 100 mg QHS PO Last administered on 02/26/18at 20:51; Start 02/16/18 at 23:00 Trazodone HCl (Desyrel) 100 mg PRN QHS PRN PO insomnia Last administered on 19:46; Start 02/16/18 at 22:45 Clozapine (Clozaril) 50 mg HS PO Last administered on 02/23/18 19:21; Start at 21:00; Stop 02/24/18 at 16:13; Status DC Divalproex Sodium (Depakote Sprinkles) 750 mg TID PO Last administered on 20:50; Start 02/18/18 at 09:00 Haloperidol (Haldol) 5 mg DAILY PO Last administered on 02/26/18 08:23; Start 02/20/18 at 09:00 Clozapine (Clozaril) 75 mg HS PO Last administered on 02/26/18 20:50; Start 02/24/18 at 21:00 Active Scripts Active Reported Duoneb 0.5-3(2.5) Mg/3 Ml (Albuterol/Ipratropium) 3 Ml Ampul.neb 3 Ml NEB DAILY Zyprexa Zydis (Olanzapine) 5 Mg Tab.rapdis 5 Mg PO PRN Q2HR PRN Buspirone Hcl 10 Mg Tablet 10 Mg PO BID@1300,1700 Valproic Acid (Valproate Sodium) 250 Mg/5 Ml Solution 750 Mg PO TID Novolog Flexpen (Insulin Aspart) 100 Unit/1 Ml Insuln.pen 0-9 Unit SQ TIDWMEALS <70 follow hypoglycemic protocol 70-150 0units if eating/ 0 if not eating 151-200 4 units if eating/ 0 units if not eating 201-250 5 units if eating/ 3 units if not eating 251-300 7 units if eating/ 4 units if not eating 301-350 9 units if eating/ 5 units if not eating > 351 Call Physician for futher orders Trazodone Hcl 100 Mg Tablet 200 Mg PO PRN QHS PRN Trazodone Hcl 50 Mg Tablet 25 Mg PO TID@0900,1300,1700 Culturelle (Lactobacillus Rhamnosus Gg) 1 Each Cap.sprink 1 Each PO BID Haloperidol 5 Mg Tablet 7.5 Mg PO DAILY Tylenol (Acetaminophen) 325 Mg Tablet 650 Mg PO PRN Q6HRS PRN Buspirone Hcl 10 Mg Tablet 20 Mg PO DAILY Theophylline Anhydrous 200 Mg Tab.er.12h 200 Mg PO BID Metolazone 5 Mg Tablet 5 Mg PO DAILY Metformin Hcl 500 Mg Tablet 500 Mg PO BIDWMEALS Cardizem Tablet (Diltiazem Hcl) 120 Mg Tablet 120 Mg PO DAILY Amantadine (Amantadine Hcl) 100 Mg Tablet 100 Mg PO BID Actos (Pioglitazone Hcl) 15 Mg Tablet 15 Mg PO DAILY Mirtazapine 15 Mg Tablet 15 Mg PO QHS Haldol Decanoate 100 (Haloperidol Decanoate) 100 Mg/1 Ml Ampul 450 Mg IM Q4WK Klor-Con M20 (Potassium Chloride) 20 Meq Tab.er.prt 40 Meq PO BIDWMEALS Analgesic [place] (Methyl Salicylate/Menthol) 28 Gm Oint...g. 1 Guan[place] TP PRN QID PRN Magnesium Oxide 400 Mg Tablet 400 Mg PO BID Milk Of Magnesia (Magnesium Hydroxide) 2,400 Mg/10 Ml Oral.susp 2,400 Mg PO PRN QHS PRN Maalox Advanced Suspension (Mag Hydrox/Aluminum Hyd/Simeth) 355 Ml Oral.susp 15 Ml PO PRN AFTMEALHC PRN D3-50 (Cholecalciferol (Vitamin D3)) 50,000 Unit Capsule 50,000 Unit PO QTH Clonazepam 1 Mg Tablet 1 Mg PO TID Furosemide 40 Mg Tablet 80 Mg PO [id number] Hold for SBP less than 100. After held dose, reassess in 2 hours. If SBP is above threshold, administer dose as ordered. If SBP is below threshold, contact provider for additional instructions. I have reviewed the current psychotropics carefully including drug interactions. Risk benefit ratio favors no change other than as noted in my dictated progress note. Diagnosis: Problems: (1) Depression (2) Schizoaffective disorder (3) Anxiety disorder (4) Impulse control disorder (5) Schizoaffective disorder, chronic condition with acute exacerbation KALIN STARKS MD Feb 26, 2018 21:15
--- NOTE | 2018-02-27 00:48 | PN ---
DATE: 02/25/2018 PSYCHIATRIC PROGRESS NOTE This late entry 02/25/2018 covers elements not covered in my initial note. SUBJECTIVE: I met with the patient in the evening. The patient had a very difficult day and described as "horrible yelling, refusing medications" per nursing report. She has been loud, disruptive, agitated, paranoid, accusing others of various things. Valproic acid level is 58. Slept 4-1/2 hours previous evening. REVIEW OF SYSTEMS: Ambulation impaired with walker. No CV, , pulmonary, eye system symptoms on review. She has vague somatic symptoms. MENTAL STATUS EXAM: Oriented to herself and situation. Speech coherent, rapid, loud at times. Abstraction fair. Unable to do serial sevens, remembered 0 of 3 objects at 3 minutes. No active suicidal or homicidal ideation, but she is paranoid, suspicious, marked mood lability persists. LABORATORY DATA: Reviewed. IMPRESSION: Schizoaffective disorder, bipolar type, mixed with psychotic features; anxiety disorder, unspecified; major neurocognitive disorder, Alzheimer, vascular with delusion, behavioral disturbance. PLAN: Continue Depakote at current dosage. We will discontinue the amantadine if no objections per Dr. Puga since this could be worsening some of her psychotic symptoms and agitation. Maintain rest of the psychotropics. Increase Clozaril to 75 mg at bedtime and CBC, absolute neutrophil count is unremarkable. MAN Mary STARKS MD DR: TRACIE/karli JOB#: [id number] / [id number]
[2018-02-27 06:08] VITALS: BP 141/82
[2018-02-27] MEDS: INSULIN LISPRO 300 UNITS/3 ML INSULN.PEN. SQ SCH ×3 (08:09→17:32)
[2018-02-27] MEDS: NYSTATIN TOPICAL POWDER 15GM BOTTLE. TP SCH ×3 (09:00→21:00)
[2018-02-27] MEDS: MAGNESIUM OXIDE 400 MG TABLET PO SCH ×3 (09:00→21:00)
[2018-02-27] MEDS: metFORMIN 500 MG TABLET PO SCH ×2 (10:16→17:00)
[2018-02-27] MEDS: PIOGLITAZONE 15 MG TABLET. PO SCH (10:17)
[2018-02-27] MEDS: busPIRone 10 MG TABLET. PO SCH ×3 (10:17→17:00)
[2018-02-27] MEDS: POTASSIUM CHLORIDE 20 MEQ TABLET.ER. PO SCH ×2 (10:17→17:00)
[2018-02-27] MEDS: traZODone 50 MG TABLET. PO SCH ×3 (10:18→17:00)
[2018-02-27] MEDS: DIVALPROEX 125 MG CAP.SPRINK PO SCH ×5 (10:18→21:00)
[2018-02-27] MEDS: HALOPERIDOL 5 MG TABLET PO SCH (10:18)
[2018-02-27] MEDS: clonazePAM 1 MG TABLET PO SCH ×3 (10:19→20:43)
[2018-02-27] MEDS: metOLazone 5 MG TABLET PO SCH (10:20)
[2018-02-27] MEDS: FUROSEMIDE 80 MG TABLET PO SCH ×2 (10:20→14:15)
[2018-02-27] MEDS: IPRATRPIUM/ALBUTEROL 0.5/2.5MG 3 ML NEBU. NEB SCH (11:22)
[2018-02-27 15:55] VITALS: BP 115/72
[2018-02-27] MEDS: CHOLECALCIFEROL (VITAMIN D3) 50,000 UNIT CAPSULE PO SCH (16:00)
[2018-02-27] MEDS: cloZAPine 25 MG TABLET PO SCH ×2 (20:42→21:00)
[2018-02-27] MEDS: traZODone 100 MG TABLET. PO SCH ×2 (20:43→21:00)
[2018-02-27] MEDS: MIRTAZAPINE 15 MG TABLET PO SCH ×2 (20:43→21:00)
--- NOTE | 2018-02-27 20:57 | PDOC ---
Exam Note: [place] Note: Please also refer to the separate dictated note~for this date of service dictated separately.~Patient seen individually. Discussed the patient with Nursing staff reviewed the chart.~Reviewed interim history and current functioning. Reviewed vital signs,~Labs/ Radiology~and current medications noted below. Continue current treatment with the changes noted in the dictated addendum note Assessment: Vital Signs: Vital Signs Date Time Temp Pulse Resp B/P (MAP) Pulse Ox O2 Delivery O2 Flow Rate FiO2 02/27/18 15:55 97.1 88 18 115/72 (86) 97 Room Air I&O Intake and Output 02/27/18 07:00 Intake Total 600 ml Balance 600 ml Intake Oral 600 ml # Voids 1 Labs: Laboratory Tests Test 02/27/18 07:27 02/27/18 11:34 02/27/18 16:19 02/27/18 19:44 Glucose (Fingerstick) 185 mg/dL (70-99) H 211 mg/dL (70-99) H 148 mg/dL (70-99) H 221 mg/dL (70-99) H Current Medications: Meds: Current Medications Lorazepam (Ativan) 2 mg 1X ONCE IM ; Start 02/10/18 at 04:00; Stop 02/10/18 at 04:01; Status DC Diphenhydramine HCl (Benadryl) 50 mg 1X ONCE IM ; Start 02/10/18 at 04:00; Stop 02/10/18 at 04:01; Status DC Ziprasidone (Geodon Im) 20 mg 1X ONCE IM ; Start 02/10/18 at 04:00; Stop at 04:01; Status DC Multivitamins/ Minerals 10 ml/ Folic Acid 1 mg/ Thiamine HCl 100 mg/Lactated Ringer's 1,011.1 ml @ 1,000 mls/ hr 1X ONCE IV ; Start 02/10/18 at 03:45; Stop 02/10/18 at 04:45; Status DC Magnesium Hydroxide (Milk Of Magnesia) 2,400 mg 1X ONCE PO ; Start 02/10/18 at 05:30; Stop 02/10/18 at 05:32; Status DC Potassium Chloride (KCl Oral Soln) 40 meq 1X ONCE PO ; Start 02/10/18 at 05:30 ; Stop 02/10/18 at 05:32; Status DC Acetaminophen (Tylenol) 650 mg PRN Q6HRS PRN PO PAIN / TEMP Last administered on 02/23/18 12:43; Start 02/10/18 at 06:15 Multi-Ingredient Ointment (Analgesic [place]) 1 guanaco PRN QID PRN TP MUSCLE PAIN; Start 02/10/18 at 06:15 Al Hydroxide/Mg Hydroxide (Mylanta Plus Xs) 15 ml PRN AFTMEALHC PRN PO DYSPEPSIA; Start 02/10/18 at 06:15 Magnesium Hydroxide (Milk Of Magnesia) 2,400 mg PRN QHS PRN PO CONSTIPATION Last administered on 02/18/18 19:46; Start 02/10/18 at 06:15 Influenza Virus Vaccine (Afluria Trivalent [id number] Syringe) 0.5 ml ONCE ONCE VAX IM Last administered on 02/10/18 14:21; Start 02/10/18 at 09:00; Stop at 09:01; Status DC Vitamin D (Vitamin D3) 50,000 unit QTH PO Last administered on 02/20/18at 16:39 ; Start 02/13/18 at 16:00 Albuterol/ Ipratropium (Duoneb) 3 ml DAILY NEB Last administered on 02/27/18 11:22; Start 02/10/18 at 09:00 Lactobacillus Rhamnosus (Culturelle) 1 cap BID PO Last administered on 09:03; Start 02/10/18 at 09:00; Stop 02/22/18 at 18:00; Status DC Potassium Chloride (Klor-Con) 40 meq BIDWMEALS PO Last administered on at 17:00; Start 02/10/18 at 08:00 Amantadine HCl (Symmetrel) 100 mg BID PO Last administered on 02/26/18 08:21; Start 02/10/18 at 09:00; Stop 02/26/18 at 11:24; Status DC Buspirone HCl (Buspar) 10 mg 1300,1700 PO Last administered on 02/26/18 12:54 ; Start 02/10/18 at 13:00 Buspirone HCl (Buspar) 20 mg DAILY PO Last administered on 02/27/18at 10:17; Start 02/10/18 at 09:00 Clonazepam (KlonoPIN) 1 mg TID PO Last administered on 02/27/18 10:19; Start 02/10/18 at 09:00 Diltiazem HCl (Cardizem 24hr Cd) 120 mg DAILY PO Last administered on 10:18; Start 02/10/18 at 09:00 Furosemide (Lasix) 80 mg BID92 PO Last administered on 02/27/18 10:20; Start 02/10/18 at 09:00 Haloperidol (Haldol) 7.5 mg DAILY PO Last administered on 02/19/18 09:05; Start 02/10/18 at 09:00; Stop 02/19/18 at 18:16; Status DC Non-Formulary Medication (Haloperidol Decanoate (Haldol Decanoate 100)) 450 mg Q4WK IM ; Start 02/10/18 at 09:00; Stop 02/10/18 at 16:12; Status DC Non-Formulary Medication (Insulin Aspart (Novolog Flexpen)) see protocol TIDWMEALS SQ ; Start 02/10/18 at 08:00; Status UNV Magnesium Oxide (Magnesium Oxide) 400 mg BID PO Last administered on 02/26/18 08:23; Start 02/10/18 at 09:00 Metformin HCl (Glucophage) 500 mg BIDWMEALS PO Last administered on 02/27/18 10:16; Start 02/10/18 at 08:00 Metolazone (Zaroxolyn) 5 mg DAILY PO Last administered on 02/27/18 10:20; Start 02/10/18 at 09:00 Mirtazapine (Remeron) 15 mg QHS PO Last administered on 02/25/18at 19:52; Start 02/10/18 at 21:00 Pioglitazone HCl (Actos) 15 mg DAILY PO Last administered on 02/27/18 10:17; Start 02/10/18 at 09:00 Trazodone HCl (Desyrel) 25 mg TID@0900,1300,1700 PO Last administered on 10:18; Start 02/10/18 at 09:00 Valproic Acid (Depakene) 750 mg TID PO Last administered on 02/17/18at 21:01; Start 02/10/18 at 09:00; Stop 02/18/18 at 08:06; Status DC Insulin Human Lispro (HumaLOG) 0-9 UNITS TIDWMEALS SQ Last administered on 02/27at 12:46; Start 02/10/18 at 08:00 Dextrose 12.5 gm PRN Q15MIN PRN IV SEE COMMENTS; Start 02/10/18 at 06:30 Olanzapine (ZyPREXA ZYDIS) 5 mg PRN Q2HR PRN PO PSYCHOSIS Last administered on 02/25/18at 13:34; Start 02/10/18 at 06:45 Haloperidol Decanoate (Haldol Decanoate Im Extended Release) 450 mg Q4WK IM ; Start 03/10/18 at 09:00 Trazodone HCl (Desyrel) 25 mg STK-MED ONCE .ROUTE ; Start 02/10/18 at 09:00; Stop 02/11/18 at 10:03; Status DC Trazodone HCl (Desyrel) 25 mg STK-MED ONCE .ROUTE ; Start 02/10/18 at 09:00; Stop 02/11/18 at 10:03; Status DC Trazodone HCl (Desyrel) 25 mg STK-MED ONCE .ROUTE ; Start 02/10/18 at 09:00; Stop 02/11/18 at 10:03; Status DC Trazodone HCl (Desyrel) 25 mg STK-MED ONCE .ROUTE ; Start 02/11/18 at 09:00; Stop 02/11/18 at 10:04; Status DC Clozapine (Clozaril) 25 mg HS PO Last administered on 02/16/18at 21:13; Start at 21:00; Stop 02/17/18 at 17:40; Status DC Nystatin (Nystop) 1 guanaco BID TP Last administered on 02/26/18at 08:23; Start at 09:00 Trazodone HCl (Desyrel) 100 mg PRN QHS PRN PO INSOMNIA, MAY REPEAT X1; Start at 17:00; Stop 02/16/18 at 22:42; Status DC Trazodone HCl (Desyrel) 100 mg QHS PO Last administered on 02/25/18at 19:52; Start 02/16/18 at 23:00 Trazodone HCl (Desyrel) 100 mg PRN QHS PRN PO insomnia Last administered on at 19:46; Start 02/16/18 at 22:45 Clozapine (Clozaril) 50 mg HS PO Last administered on 02/23/18at 19:21; Start at 21:00; Stop 02/24/18 at 16:13; Status DC Divalproex Sodium (Depakote Sprinkles) 750 mg TID PO Last administered on at 13:16; Start 02/18/18 at 09:00 Haloperidol (Haldol) 5 mg DAILY PO Last administered on 02/27/18at 10:18; Start 02/20/18 at 09:00 Clozapine (Clozaril) 75 mg HS PO Last administered on 02/25/18at 19:52; Start 02/24/18 at 21:00 Active Scripts Active Reported Duoneb 0.5-3(2.5) Mg/3 Ml (Albuterol/Ipratropium) 3 Ml Ampul.neb 3 Ml NEB DAILY Zyprexa Zydis (Olanzapine) 5 Mg Tab.rapdis 5 Mg PO PRN Q2HR PRN Buspirone Hcl 10 Mg Tablet 10 Mg PO BID@1300,1700 Valproic Acid (Valproate Sodium) 250 Mg/5 Ml Solution 750 Mg PO TID Novolog Flexpen (Insulin Aspart) 100 Unit/1 Ml Insuln.pen 0-9 Unit SQ TIDWMEALS <70 follow hypoglycemic protocol 70-150 0units if eating/ 0 if not eating 151-200 4 units if eating/ 0 units if not eating 201-250 5 units if eating/ 3 units if not eating 251-300 7 units if eating/ 4 units if not eating 301-350 9 units if eating/ 5 units if not eating > 351 Call Physician for futher orders Trazodone Hcl 100 Mg Tablet 200 Mg PO PRN QHS PRN Trazodone Hcl 50 Mg Tablet 25 Mg PO TID@0900,1300,1700 Culturelle (Lactobacillus Rhamnosus Gg) 1 Each Cap.sprink 1 Each PO BID Haloperidol 5 Mg Tablet 7.5 Mg PO DAILY Tylenol (Acetaminophen) 325 Mg Tablet 650 Mg PO PRN Q6HRS PRN Buspirone Hcl 10 Mg Tablet 20 Mg PO DAILY Theophylline Anhydrous 200 Mg Tab.er.12h 200 Mg PO BID Metolazone 5 Mg Tablet 5 Mg PO DAILY Metformin Hcl 500 Mg Tablet 500 Mg PO BIDWMEALS Cardizem Tablet (Diltiazem Hcl) 120 Mg Tablet 120 Mg PO DAILY Amantadine (Amantadine Hcl) 100 Mg Tablet 100 Mg PO BID Actos (Pioglitazone Hcl) 15 Mg Tablet 15 Mg PO DAILY Mirtazapine 15 Mg Tablet 15 Mg PO QHS Haldol Decanoate 100 (Haloperidol Decanoate) 100 Mg/1 Ml Ampul 450 Mg IM Q4WK Klor-Con M20 (Potassium Chloride) 20 Meq Tab.er.prt 40 Meq PO BIDWMEALS Analgesic [place] (Methyl Salicylate/Menthol) 28 Gm Oint...g. 1 [place] TP PRN QID PRN Magnesium Oxide 400 Mg Tablet 400 Mg PO BID Milk Of Magnesia (Magnesium Hydroxide) 2,400 Mg/10 Ml Oral.susp 2,400 Mg PO PRN QHS PRN Maalox Advanced Suspension (Mag Hydrox/Aluminum Hyd/Simeth) 355 Ml Oral.susp 15 Ml PO PRN AFTMEALHC PRN D3-50 (Cholecalciferol (Vitamin D3)) 50,000 Unit Capsule 50,000 Unit PO QTH Clonazepam 1 Mg Tablet 1 Mg PO TID Furosemide 40 Mg Tablet 80 Mg PO [id number] Hold for SBP less than 100. After held dose, reassess in 2 hours. If SBP is above threshold, administer dose as ordered. If SBP is below threshold, contact provider for additional instructions. I have reviewed the current psychotropics carefully including drug interactions. Risk benefit ratio favors no change other than as noted in my dictated progress note. Diagnosis: Problems: (1) Depression (2) Schizoaffective disorder (3) Anxiety disorder (4) Impulse control disorder (5) Schizoaffective disorder, chronic condition with acute exacerbation KALIN STARKS MD Feb 27, 2018 20:57
--- NOTE | 2018-02-27 23:32 | PN ---
DATE: 02/26/2018 This late entry for 02/26/2018 covers elements not covered in my initial note. SUBJECTIVE: I met with the patient in the evening. The patient had a very difficult day. She slept 6 hours previous night, but in the morning, she was agitated, aggressive, threw milk on the nursing staff. Nursing staff had to go home to change. She was disruptive at lunch, loud, paranoid, aggressive, abrasive. She did take BuSpar and trazodone whole and we have discontinued amantadine to help reduce agitation. REVIEW OF SYSTEMS: Ambulation impaired with walker. No CV, , pulmonary, eye, ENT system symptoms on review. MENTAL STATUS EXAM: Oriented to herself and situation. Speech coherent, rapid, loud at times. Abstraction fair, computation impaired, language function intact, attention span short. Mood and affect remains labile, grandiose, psychotic. LABORATORY DATA: Reviewed. IMPRESSION: Schizoaffective disorder, bipolar type, mixed with psychotic features. Rest unchanged. PLAN: Continue to gradually increase Clozaril post-labs on a weekly basis and then gradually reduce the Haldol. Maintain Depakote and rest of psychotropics unchanged, Klonopin, BuSpar, trazodone scheduled. KALIN STARKS MD DR: TRACIE/karli JOB#: [id number] / [id number]
[2018-02-28 05:55] VITALS: BP 121/66
[2018-02-28] MEDS: INSULIN LISPRO 300 UNITS/3 ML INSULN.PEN. SQ SCH ×3 (10:07→17:48)
[2018-02-28] MEDS: PIOGLITAZONE 15 MG TABLET. PO SCH (10:16)
[2018-02-28] MEDS: metOLazone 5 MG TABLET PO SCH (10:16)
[2018-02-28] MEDS: FUROSEMIDE 80 MG TABLET PO SCH ×2 (10:25→14:49)
[2018-02-28] MEDS: DIVALPROEX 125 MG CAP.SPRINK PO SCH ×3 (10:25→20:45)
[2018-02-28] MEDS: busPIRone 10 MG TABLET. PO SCH ×3 (10:25→17:46)
[2018-02-28] MEDS: MAGNESIUM OXIDE 400 MG TABLET PO SCH ×2 (10:26→20:46)
[2018-02-28] MEDS: POTASSIUM CHLORIDE 20 MEQ TABLET.ER. PO SCH ×2 (10:26→17:46)
[2018-02-28] MEDS: HALOPERIDOL 5 MG TABLET PO SCH (10:26)
[2018-02-28] MEDS: NYSTATIN TOPICAL POWDER 15GM BOTTLE. TP SCH ×2 (10:28→20:45)
[2018-02-28] MEDS: clonazePAM 1 MG TABLET PO SCH ×3 (10:30→20:46)
[2018-02-28] MEDS: traZODone 50 MG TABLET. PO SCH ×3 (10:30→17:45)
[2018-02-28] MEDS: metFORMIN 500 MG TABLET PO SCH ×2 (10:31→17:45)
[2018-02-28] MEDS: IPRATRPIUM/ALBUTEROL 0.5/2.5MG 3 ML NEBU. NEB SCH (11:45)
[2018-02-28 11:56] LABS: BILIRUBIN,URINE NEG (NEG); CLARITY,URINE HAZY; COLOR,URINE YELLOW; GLUCOSE,URINE NEG (NEG)
[2018-02-28 11:57] LABS: BACTERIA,URINE FEW /HPF (0-FEW); NITRITE,URINE NEG (NEG); RBC,URINE 0 /HPF (0-2); SQUAMOUS EPITHELIAL CELL,UR FEW /LPF; UROBILINOGEN,URINE 0.2 mg/dL (0.2 mg/dL)
[2018-02-28 16:22] VITALS: BP 108/73
--- NOTE | 2018-02-28 20:22 | PDOC ---
Exam Note: Napoleon Note: Please also refer to the separate dictated note~for this date of service dictated separately.~Patient seen individually. Discussed the patient with Nursing staff reviewed the chart.~Reviewed interim history and current functioning. Reviewed vital signs,~Labs/ Radiology~and current medications noted below. Continue current treatment with the changes noted in the dictated addendum note Assessment: Vital Signs: Vital Signs Date Time Temp Pulse Resp B/P (MAP) Pulse Ox O2 Delivery O2 Flow Rate FiO2 02/28/18 16:22 97.6 87 17 108/73 (85) 97 Room Air I&O Intake and Output 02/28/18 07:00 Intake Total 1320 ml Balance 1320 ml Intake Oral 1320 ml Labs: Laboratory Tests Test 02/28/18 07:50 02/28/18 11:27 02/28/18 11:31 02/28/18 16:30 Glucose (Fingerstick) 155 mg/dL (70-99) H 96 mg/dL (70-99) 185 mg/dL (70-99) H Urine Collection Type Unknown Urine Color Yellow Urine Clarity Hazy Urine pH 7.0 Urine Specific [place] 1.015 Urine Protein Neg (NEG-TRACE) Urine Glucose (UA) Neg mg/dL (NEG) Urine Ketones (Stick) Neg mg/dL (NEG) Urine Blood Neg (NEG) Urine Nitrite Neg (NEG) Urine Bilirubin Neg (NEG) Urine Urobilinogen Dipstick 0.2 mg/dL (0.2 mg/dL) Urine Leukocyte Esterase Small (NEG) Urine RBC 0 /HPF (0-2) Urine WBC 1-4 /HPF (0-4) Urine Squamous Epithelial Cells Few /LPF Urine Transitional Epithelial Cells Occ /LPF Urine Bacteria Few /HPF (0-FEW) Test 02/28/18 19:13 Glucose (Fingerstick) 196 mg/dL (70-99) H Current Medications: Meds: Current Medications Lorazepam (Ativan) 2 mg 1X ONCE IM ; Start 02/10/18 at 04:00; Stop 02/10/18 at 04:01; Status DC Diphenhydramine HCl (Benadryl) 50 mg 1X ONCE IM ; Start 02/10/18 at 04:00; Stop 02/10/18 at 04:01; Status DC Ziprasidone (Geodon Im) 20 mg 1X ONCE IM ; Start 02/10/18 at 04:00; Stop at 04:01; Status DC Multivitamins/ Minerals 10 ml/ Folic Acid 1 mg/ Thiamine HCl 100 mg/Lactated Ringer's 1,011.1 ml @ 1,000 mls/ hr 1X ONCE IV ; Start 02/10/18 at 03:45; Stop 02/10/18 at 04:45; Status DC Magnesium Hydroxide (Milk Of Magnesia) 2,400 mg 1X ONCE PO ; Start 02/10/18 at 05:30; Stop 02/10/18 at 05:32; Status DC Potassium Chloride (KCl Oral Soln) 40 meq 1X ONCE PO ; Start 02/10/18 at 05:30 ; Stop 02/10/18 at 05:32; Status DC Acetaminophen (Tylenol) 650 mg PRN Q6HRS PRN PO PAIN / TEMP Last administered on 02/23/18at 12:43; Start 02/10/18 at 06:15 Multi-Ingredient Ointment (Analgesic [place]) 1 guanaco PRN QID PRN TP MUSCLE PAIN; Start 02/10/18 at 06:15 Al Hydroxide/Mg Hydroxide (Mylanta Plus Xs) 15 ml PRN AFTMEALHC PRN PO DYSPEPSIA; Start 02/10/18 at 06:15 Magnesium Hydroxide (Milk Of Magnesia) 2,400 mg PRN QHS PRN PO CONSTIPATION Last administered on 02/18/18at 19:46; Start 02/10/18 at 06:15 Influenza Virus Vaccine (Afluria Trivalent 1335-1579 Syringe) 0.5 ml ONCE ONCE VAX IM Last administered on 02/10/18at 14:21; Start 02/10/18 at 09:00; Stop at 09:01; Status DC Vitamin D (Vitamin D3) 50,000 unit QTH PO Last administered on 02/20/18at 16:39 ; Start 02/13/18 at 16:00 Albuterol/ Ipratropium (Duoneb) 3 ml DAILY NEB Last administered on 02/28/18at 11:45; Start 02/10/18 at 09:00 Lactobacillus Rhamnosus (Culturelle) 1 cap BID PO Last administered on at 09:03; Start 02/10/18 at 09:00; Stop 02/22/18 at 18:00; Status DC Potassium Chloride (Klor-Con) 40 meq BIDWMEALS PO Last administered on 17:46; Start 02/10/18 at 08:00 Amantadine HCl (Symmetrel) 100 mg BID PO Last administered on 02/26/18 08:21; Start 02/10/18 at 09:00; Stop 02/26/18 at 11:24; Status DC Buspirone HCl (Buspar) 10 mg 1300,1700 PO Last administered on 02/28/18 17:46 ; Start 02/10/18 at 13:00 Buspirone HCl (Buspar) 20 mg DAILY PO Last administered on 02/28/18 10:25; Start 02/10/18 at 09:00 Clonazepam (KlonoPIN) 1 mg TID PO Last administered on 02/28/18 14:49; Start 02/10/18 at 09:00 Diltiazem HCl (Cardizem 24hr Cd) 120 mg DAILY PO Last administered on 10:26; Start 02/10/18 at 09:00 Furosemide (Lasix) 80 mg BID92 PO Last administered on 02/28/18 14:49; Start 02/10/18 at 09:00 Haloperidol (Haldol) 7.5 mg DAILY PO Last administered on 02/19/18 09:05; Start 02/10/18 at 09:00; Stop 02/19/18 at 18:16; Status DC Non-Formulary Medication (Haloperidol Decanoate (Haldol Decanoate 100)) 450 mg Q4WK IM ; Start 02/10/18 at 09:00; Stop 02/10/18 at 16:12; Status DC Non-Formulary Medication (Insulin Aspart (Novolog Flexpen)) see protocol TIDWMEALS SQ ; Start 02/10/18 at 08:00; Status UNV Magnesium Oxide (Magnesium Oxide) 400 mg BID PO Last administered on 02/28/18 10:26; Start 02/10/18 at 09:00 Metformin HCl (Glucophage) 500 mg BIDWMEALS PO Last administered on 02/28/18 17:45; Start 02/10/18 at 08:00 Metolazone (Zaroxolyn) 5 mg DAILY PO Last administered on 02/28/18 10:16; Start 02/10/18 at 09:00 Mirtazapine (Remeron) 15 mg QHS PO Last administered on 02/27/18 21:00; Start 02/10/18 at 21:00 Pioglitazone HCl (Actos) 15 mg DAILY PO Last administered on 02/28/18 10:16; Start 02/10/18 at 09:00 Trazodone HCl (Desyrel) 25 mg TID@0900,1300,1700 PO Last administered on at 17:45; Start 02/10/18 at 09:00 Valproic Acid (Depakene) 750 mg TID PO Last administered on 02/17/18 21:01; Start 02/10/18 at 09:00; Stop 02/18/18 at 08:06; Status DC Insulin Human Lispro (HumaLOG) 0-9 UNITS TIDWMEALS SQ Last administered on 02/28 17:48; Start 02/10/18 at 08:00 Dextrose 12.5 gm PRN Q15MIN PRN IV SEE COMMENTS; Start 02/10/18 at 06:30 Olanzapine (ZyPREXA ZYDIS) 5 mg PRN Q2HR PRN PO PSYCHOSIS Last administered on 02/25/18at 13:34; Start 02/10/18 at 06:45 Haloperidol Decanoate (Haldol Decanoate Im Extended Release) 450 mg Q4WK IM ; Start 03/10/18 at 09:00 Trazodone HCl (Desyrel) 25 mg STK-MED ONCE .ROUTE ; Start 02/10/18 at 09:00; Stop 02/11/18 at 10:03; Status DC Trazodone HCl (Desyrel) 25 mg STK-MED ONCE .ROUTE ; Start 02/10/18 at 09:00; Stop 02/11/18 at 10:03; Status DC Trazodone HCl (Desyrel) 25 mg STK-MED ONCE .ROUTE ; Start 02/10/18 at 09:00; Stop 02/11/18 at 10:03; Status DC Trazodone HCl (Desyrel) 25 mg STK-MED ONCE .ROUTE ; Start 02/11/18 at 09:00; Stop 02/11/18 at 10:04; Status DC Clozapine (Clozaril) 25 mg HS PO Last administered on 02/16/18at 21:13; Start at 21:00; Stop 02/17/18 at 17:40; Status DC Nystatin (Nystop) 1 guanaco BID TP Last administered on 02/28/18at 10:28; Start at 09:00 Trazodone HCl (Desyrel) 100 mg PRN QHS PRN PO INSOMNIA, MAY REPEAT X1; Start at 17:00; Stop 02/16/18 at 22:42; Status DC Trazodone HCl (Desyrel) 100 mg QHS PO Last administered on 02/27/18at 21:00; Start 02/16/18 at 23:00 Trazodone HCl (Desyrel) 100 mg PRN QHS PRN PO insomnia Last administered on at 19:46; Start 02/16/18 at 22:45 Clozapine (Clozaril) 50 mg HS PO Last administered on 02/23/18at 19:21; Start at 21:00; Stop 02/24/18 at 16:13; Status DC Divalproex Sodium (Depakote Sprinkles) 750 mg TID PO Last administered on at 14:49; Start 02/18/18 at 09:00 Haloperidol (Haldol) 5 mg DAILY PO Last administered on 02/28/18at 10:26; Start 02/20/18 at 09:00 Clozapine (Clozaril) 75 mg HS PO Last administered on 02/27/18at 21:00; Start 02/24/18 at 21:00 Active Scripts Active Reported Duoneb 0.5-3(2.5) Mg/3 Ml (Albuterol/Ipratropium) 3 Ml Ampul.neb 3 Ml NEB DAILY Zyprexa Zydis (Olanzapine) 5 Mg Tab.rapdis 5 Mg PO PRN Q2HR PRN Buspirone Hcl 10 Mg Tablet 10 Mg PO BID@1300,1700 Valproic Acid (Valproate Sodium) 250 Mg/5 Ml Solution 750 Mg PO TID Novolog Flexpen (Insulin Aspart) 100 Unit/1 Ml Insuln.pen 0-9 Unit SQ TIDWMEALS <70 follow hypoglycemic protocol 70-150 0units if eating/ 0 if not eating 151-200 4 units if eating/ 0 units if not eating 201-250 5 units if eating/ 3 units if not eating 251-300 7 units if eating/ 4 units if not eating 301-350 9 units if eating/ 5 units if not eating > 351 Call Physician for futher orders Trazodone Hcl 100 Mg Tablet 200 Mg PO PRN QHS PRN Trazodone Hcl 50 Mg Tablet 25 Mg PO TID@0900,1300,1700 Culturelle (Lactobacillus Rhamnosus Gg) 1 Each Cap.sprink 1 Each PO BID Haloperidol 5 Mg Tablet 7.5 Mg PO DAILY Tylenol (Acetaminophen) 325 Mg Tablet 650 Mg PO PRN Q6HRS PRN Buspirone Hcl 10 Mg Tablet 20 Mg PO DAILY Theophylline Anhydrous 200 Mg Tab.er.12h 200 Mg PO BID Metolazone 5 Mg Tablet 5 Mg PO DAILY Metformin Hcl 500 Mg Tablet 500 Mg PO BIDWMEALS Cardizem Tablet (Diltiazem Hcl) 120 Mg Tablet 120 Mg PO DAILY Amantadine (Amantadine Hcl) 100 Mg Tablet 100 Mg PO BID Actos (Pioglitazone Hcl) 15 Mg Tablet 15 Mg PO DAILY Mirtazapine 15 Mg Tablet 15 Mg PO QHS Haldol Decanoate 100 (Haloperidol Decanoate) 100 Mg/1 Ml Ampul 450 Mg IM Q4WK Klor-Con M20 (Potassium Chloride) 20 Meq Tab.er.prt 40 Meq PO BIDWMEALS Analgesic [place] (Methyl Salicylate/Menthol) 28 Gm Oint...g. 1 [place] TP PRN QID PRN Magnesium Oxide 400 Mg Tablet 400 Mg PO BID Milk Of Magnesia (Magnesium Hydroxide) 2,400 Mg/10 Ml Oral.susp 2,400 Mg PO PRN QHS PRN Maalox Advanced Suspension (Mag Hydrox/Aluminum Hyd/Simeth) 355 Ml Oral.susp 15 Ml PO PRN AFTMEALHC PRN D3-50 (Cholecalciferol (Vitamin D3)) 50,000 Unit Capsule 50,000 Unit PO QTH Clonazepam 1 Mg Tablet 1 Mg PO TID Furosemide 40 Mg Tablet 80 Mg PO [id number] Hold for SBP less than 100. After held dose, reassess in 2 hours. If SBP is above threshold, administer dose as ordered. If SBP is below threshold, contact provider for additional instructions. I have reviewed the current psychotropics carefully including drug interactions. Risk benefit ratio favors no change other than as noted in my dictated progress note. Diagnosis: Problems: (1) Depression (2) Schizoaffective disorder (3) Anxiety disorder (4) Impulse control disorder (5) Schizoaffective disorder, chronic condition with acute exacerbation KALIN STARKS MD Feb 28, 2018 20:22
[2018-02-28] MEDS: traZODone 100 MG TABLET. PO SCH (20:46)
[2018-02-28] MEDS: cloZAPine 25 MG TABLET PO SCH (20:46)
[2018-02-28] MEDS: MIRTAZAPINE 15 MG TABLET PO SCH (20:46)
[2018-03-01 05:59] VITALS: BP 109/68
[2018-03-01] MEDS: INSULIN LISPRO 300 UNITS/3 ML INSULN.PEN. SQ SCH ×3 (08:00→17:22)
[2018-03-01] MEDS: clonazePAM 1 MG TABLET PO SCH ×4 (09:00→19:33)
[2018-03-01] MEDS: HALOPERIDOL 5 MG TABLET PO SCH ×2 (09:00→10:03)
[2018-03-01] MEDS: MAGNESIUM OXIDE 400 MG TABLET PO SCH ×2 (09:00→19:33)
[2018-03-01] MEDS: IPRATRPIUM/ALBUTEROL 0.5/2.5MG 3 ML NEBU. NEB SCH (09:46)
[2018-03-01] MEDS: POTASSIUM CHLORIDE 20 MEQ TABLET.ER. PO SCH ×3 (09:59→18:07)
[2018-03-01] MEDS: metFORMIN 500 MG TABLET PO SCH ×3 (09:59→18:07)
[2018-03-01] MEDS: busPIRone 10 MG TABLET. PO SCH ×4 (10:00→18:07)
[2018-03-01] MEDS: PIOGLITAZONE 15 MG TABLET. PO SCH (10:00)
[2018-03-01] MEDS: DIVALPROEX 125 MG CAP.SPRINK PO SCH ×3 (10:01→19:34)
[2018-03-01] MEDS: traZODone 50 MG TABLET. PO SCH ×4 (10:03→18:07)
[2018-03-01] MEDS: FUROSEMIDE 80 MG TABLET PO SCH ×2 (10:04→14:13)
[2018-03-01] MEDS: metOLazone 5 MG TABLET PO SCH (10:04)
[2018-03-01] MEDS: NYSTATIN TOPICAL POWDER 15GM BOTTLE. TP SCH ×2 (10:05→19:33)
--- NOTE | 2018-03-01 14:26 | PN ---
DATE: 02/27/2018 PSYCHIATRIC PROGRESS NOTE This late entry 02/27/2018 covers elements not covered in my initial note. SUBJECTIVE: I met with the patient in the evening, staffed at a treatment team meeting with the entire team in the morning. The patient has had very difficult ongoing problems with mood lability, agitation, aggression, psychotic symptoms, yelling, screaming at times. We are checking a UA. REVIEW OF SYSTEMS: Ambulation impaired with walker. No CV, , pulmonary, eye, ENT system symptoms on review. MENTAL STATUS EXAM: Oriented to herself, situation. Insight, judgment, recent memory is impaired. Language function intact. Attention span short. Mood and affect remains labile, quite psychotic. LABORATORY DATA: Reviewed. IMPRESSION: Schizoaffective disorder, bipolar type, mixed with psychotic features. Rest unchanged from initial note. PLAN: No change from initial note. We will gradually increase the Clozaril and as we reach a reasonable level, we will reduce the Haldol. KALIN STARKS MD DR: [email or web address] JOB#: [id number] / [id number]
[2018-03-01 15:54] VITALS: BP 112/74
[2018-03-01] MEDS: MAGNESIUM HYDROXIDE 2,400 MG/30 ML ORAL.SUSP. PO PRN (18:06)
[2018-03-01] MEDS: traZODone 100 MG TABLET. PO SCH (19:33)
[2018-03-01] MEDS: MIRTAZAPINE 15 MG TABLET PO SCH (19:33)
[2018-03-01] MEDS: cloZAPine 25 MG TABLET PO SCH (19:33)
[2018-03-02 06:38] VITALS: BP 134/84
[2018-03-02] MEDS: metFORMIN 500 MG TABLET PO SCH ×3 (08:00→17:00)
[2018-03-02] MEDS: POTASSIUM CHLORIDE 20 MEQ TABLET.ER. PO SCH ×3 (08:00→17:00)
[2018-03-02] MEDS: PIOGLITAZONE 15 MG TABLET. PO SCH ×2 (08:21→09:00)
[2018-03-02] MEDS: busPIRone 10 MG TABLET. PO SCH ×4 (08:22→17:00)
[2018-03-02] MEDS: DIVALPROEX 125 MG CAP.SPRINK PO SCH ×4 (08:22→19:50)
[2018-03-02] MEDS: clonazePAM 1 MG TABLET PO SCH ×3 (08:24→19:49)
[2018-03-02] MEDS: HALOPERIDOL 5 MG TABLET PO SCH (08:24)
[2018-03-02] MEDS: MAGNESIUM OXIDE 400 MG TABLET PO SCH ×3 (08:24→19:49)
[2018-03-02] MEDS: traZODone 50 MG TABLET. PO SCH ×4 (08:24→17:00)
[2018-03-02] MEDS: FUROSEMIDE 80 MG TABLET PO SCH ×3 (08:24→14:00)
[2018-03-02] MEDS: metOLazone 5 MG TABLET PO SCH ×2 (08:25→09:00)
[2018-03-02] MEDS: NYSTATIN TOPICAL POWDER 15GM BOTTLE. TP SCH ×2 (08:25→19:49)
[2018-03-02] MEDS: INSULIN LISPRO 300 UNITS/3 ML INSULN.PEN. SQ SCH ×3 (08:39→17:39)
[2018-03-02 15:27] VITALS: BP 138/82
[2018-03-02] MEDS: IPRATRPIUM/ALBUTEROL 0.5/2.5MG 3 ML NEBU. NEB SCH (16:11)
[2018-03-02] MEDS: traZODone 100 MG TABLET. PO SCH (19:49)
[2018-03-02] MEDS: MIRTAZAPINE 15 MG TABLET PO SCH (19:49)
[2018-03-02] MEDS: cloZAPine 25 MG TABLET PO SCH (19:49)
--- NOTE | 2018-03-02 20:34 | PDOC ---
Exam Note: Napoleon Note: Late entry for date of service February. Please also refer to the separate dictated note~for this date of service dictated separately.~Patient seen individually. Discussed the patient with Nursing staff reviewed the chart.~ Reviewed interim history and current functioning. Reviewed vital signs,~Labs/ Radiology~and current medications noted below. Continue current treatment with the changes noted in the dictated addendum note Assessment: Vital Signs: VS - Last 72 Hours, by Label Date Time Temp Pulse Resp B/P (MAP) Pulse Ox O2 Delivery O2 Flow Rate FiO2 03/02/18 16:12 95 Room Air 03/02/18 15:27 98.0 95 18 138/82 (100) 90 03/02/18 06:38 97.1 93 16 134/84 (101) 93 Room Air 03/01/18 15:54 97.2 76 20 112/74 (87) 96 03/01/18 10:01 73 109/68 03/01/18 09:48 95 Room Air 03/01/18 05:59 97.2 73 16 109/68 (82) 95 Room Air 02/28/18 16:22 97.6 87 17 108/73 (85) 97 Room Air 02/28/18 11:45 94 Room Air 02/28/18 10:26 92 121/66 02/28/18 05:55 97.8 92 20 121/66 (84) 96 Room Air Vital Signs Date Time Temp Pulse Resp B/P (MAP) Pulse Ox O2 Delivery O2 Flow Rate FiO2 03/02/18 16:12 95 Room Air 03/02/18 15:27 98.0 95 18 138/82 (100) I&O Intake and Output 03/02/18 06:59 Intake Total 640 ml Balance 640 ml Intake Oral 640 ml Labs: Laboratory Tests Test 03/02/18 07:15 03/02/18 12:01 03/02/18 17:03 03/02/18 19:24 Glucose (Fingerstick) 143 mg/dL (70-99) H 278 mg/dL (70-99) H 214 mg/dL (70-99) H 194 mg/dL (70-99) H Current Medications: Meds: Current Medications Lorazepam (Ativan) 2 mg 1X ONCE IM ; Start 02/10/18 at 04:00; Stop 02/10/18 at 04:01; Status DC Diphenhydramine HCl (Benadryl) 50 mg 1X ONCE IM ; Start 02/10/18 at 04:00; Stop 02/10/18 at 04:01; Status DC Ziprasidone (Geodon Im) 20 mg 1X ONCE IM ; Start 02/10/18 at 04:00; Stop at 04:01; Status DC Multivitamins/ Minerals 10 ml/ Folic Acid 1 mg/ Thiamine HCl 100 mg/Lactated Ringer's 1,011.1 ml @ 1,000 mls/ hr 1X ONCE IV ; Start 02/10/18 at 03:45; Stop 02/10/18 at 04:45; Status DC Magnesium Hydroxide (Milk Of Magnesia) 2,400 mg 1X ONCE PO ; Start 02/10/18 at 05:30; Stop 02/10/18 at 05:32; Status DC Potassium Chloride (KCl Oral Soln) 40 meq 1X ONCE PO ; Start 02/10/18 at 05:30 ; Stop 02/10/18 at 05:32; Status DC Acetaminophen (Tylenol) 650 mg PRN Q6HRS PRN PO PAIN / TEMP Last administered on 02/23/18at 12:43; Start 02/10/18 at 06:15 Multi-Ingredient Ointment (Analgesic [place]) 1 guanaco PRN QID PRN TP MUSCLE PAIN; Start 02/10/18 at 06:15 Al Hydroxide/Mg Hydroxide (Mylanta Plus Xs) 15 ml PRN AFTMEALHC PRN PO DYSPEPSIA; Start 02/10/18 at 06:15 Magnesium Hydroxide (Milk Of Magnesia) 2,400 mg PRN QHS PRN PO CONSTIPATION Last administered on 03/01/18at 18:06; Start 02/10/18 at 06:15 Influenza Virus Vaccine (Afluria Trivalent [id number] Syringe) 0.5 ml ONCE ONCE VAX IM Last administered on 02/10/18at 14:21; Start 02/10/18 at 09:00; Stop at 09:01; Status DC Vitamin D (Vitamin D3) 50,000 unit QTH PO Last administered on 02/20/18at 16:39 ; Start 02/13/18 at 16:00 Albuterol/ Ipratropium (Duoneb) 3 ml DAILY NEB Last administered on 03/02/18 16:11; Start 02/10/18 at 09:00 Lactobacillus Rhamnosus (Culturelle) 1 cap BID PO Last administered on 09:03; Start 02/10/18 at 09:00; Stop 02/22/18 at 18:00; Status DC Potassium Chloride (Klor-Con) 40 meq BIDWMEALS PO Last administered on 09:59; Start 02/10/18 at 08:00 Amantadine HCl (Symmetrel) 100 mg BID PO Last administered on 02/26/18 08:21; Start 02/10/18 at 09:00; Stop 02/26/18 at 11:24; Status DC Buspirone HCl (Buspar) 10 mg 1300,1700 PO Last administered on 03/02/18 12:27 ; Start 02/10/18 at 13:00 Buspirone HCl (Buspar) 20 mg DAILY PO Last administered on 03/01/18 10:00; Start 02/10/18 at 09:00 Clonazepam (KlonoPIN) 1 mg TID PO Last administered on 03/02/18 19:49; Start 02/10/18 at 09:00 Diltiazem HCl (Cardizem 24hr Cd) 120 mg DAILY PO Last administered on 10:01; Start 02/10/18 at 09:00 Furosemide (Lasix) 80 mg BID92 PO Last administered on 03/01/18 14:13; Start 02/10/18 at 09:00 Haloperidol (Haldol) 7.5 mg DAILY PO Last administered on 02/19/18 09:05; Start 02/10/18 at 09:00; Stop 02/19/18 at 18:16; Status DC Non-Formulary Medication (Haloperidol Decanoate (Haldol Decanoate 100)) 450 mg Q4WK IM ; Start 02/10/18 at 09:00; Stop 02/10/18 at 16:12; Status DC Non-Formulary Medication (Insulin Aspart (Novolog Flexpen)) see protocol TIDWMEALS SQ ; Start 02/10/18 at 08:00; Status UNV Magnesium Oxide (Magnesium Oxide) 400 mg BID PO Last administered on 10/7/18at 19:49; Start 02/10/18 at 09:00 Metformin HCl (Glucophage) 500 mg BIDWMEALS PO Last administered on 03/01/18 09:59; Start 02/10/18 at 08:00 Metolazone (Zaroxolyn) 5 mg DAILY PO Last administered on 03/01/18at 10:04; Start 02/10/18 at 09:00 Mirtazapine (Remeron) 15 mg QHS PO Last administered on 03/02/18at 19:49; Start 02/10/18 at 21:00 Pioglitazone HCl (Actos) 15 mg DAILY PO Last administered on 03/01/18 10:00; Start 02/10/18 at 09:00 Trazodone HCl (Desyrel) 25 mg TID@0900,1300,1700 PO Last administered on 12:27; Start 02/10/18 at 09:00 Valproic Acid (Depakene) 750 mg TID PO Last administered on 02/17/18at 21:01; Start 02/10/18 at 09:00; Stop 02/18/18 at 08:06; Status DC Insulin Human Lispro (HumaLOG) 0-9 UNITS TIDWMEALS SQ Last administered on 03/02 17:39; Start 02/10/18 at 08:00 Dextrose 12.5 gm PRN Q15MIN PRN IV SEE COMMENTS; Start 02/10/18 at 06:30 Olanzapine (ZyPREXA ZYDIS) 5 mg PRN Q2HR PRN PO PSYCHOSIS Last administered on 03/02/18 12:27; Start 02/10/18 at 06:45 Haloperidol Decanoate (Haldol Decanoate Im Extended Release) 450 mg Q4WK IM ; Start 03/10/18 at 09:00 Trazodone HCl (Desyrel) 25 mg STK-MED ONCE .ROUTE ; Start 02/10/18 at 09:00; Stop 02/11/18 at 10:03; Status DC Trazodone HCl (Desyrel) 25 mg STK-MED ONCE .ROUTE ; Start 02/10/18 at 09:00; Stop 02/11/18 at 10:03; Status DC Trazodone HCl (Desyrel) 25 mg STK-MED ONCE .ROUTE ; Start 02/10/18 at 09:00; Stop 02/11/18 at 10:03; Status DC Trazodone HCl (Desyrel) 25 mg STK-MED ONCE .ROUTE ; Start 02/11/18 at 09:00; Stop 02/11/18 at 10:04; Status DC Clozapine (Clozaril) 25 mg HS PO Last administered on 02/16/18at 21:13; Start at 21:00; Stop 02/17/18 at 17:40; Status DC Nystatin (Nystop) 1 guanaco BID TP Last administered on 03/02/18 19:49; Start at 09:00 Trazodone HCl (Desyrel) 100 mg PRN QHS PRN PO INSOMNIA, MAY REPEAT X1; Start at 17:00; Stop 02/16/18 at 22:42; Status DC Trazodone HCl (Desyrel) 100 mg QHS PO Last administered on 03/02/18 19:49; Start 02/16/18 at 23:00 Trazodone HCl (Desyrel) 100 mg PRN QHS PRN PO insomnia Last administered on 19:46; Start 02/16/18 at 22:45 Clozapine (Clozaril) 50 mg HS PO Last administered on 02/23/18 19:21; Start at 21:00; Stop 02/24/18 at 16:13; Status DC Divalproex Sodium (Depakote Sprinkles) 750 mg TID PO Last administered on 19:50; Start 02/18/18 at 09:00 Haloperidol (Haldol) 5 mg DAILY PO Last administered on 03/02/18at 08:24; Start 02/20/18 at 09:00 Clozapine (Clozaril) 75 mg HS PO Last administered on 03/02/18 19:49; Start 02/24/18 at 21:00 Active Scripts Active Reported Duoneb 0.5-3(2.5) Mg/3 Ml (Albuterol/Ipratropium) 3 Ml Ampul.neb 3 Ml NEB DAILY Zyprexa Zydis (Olanzapine) 5 Mg Tab.rapdis 5 Mg PO PRN Q2HR PRN Buspirone Hcl 10 Mg Tablet 10 Mg PO BID@1300,1700 Valproic Acid (Valproate Sodium) 250 Mg/5 Ml Solution 750 Mg PO TID Novolog Flexpen (Insulin Aspart) 100 Unit/1 Ml Insuln.pen 0-9 Unit SQ TIDWMEALS <70 follow hypoglycemic protocol 70-150 0units if eating/ 0 if not eating 151-200 4 units if eating/ 0 units if not eating 201-250 5 units if eating/ 3 units if not eating 251-300 7 units if eating/ 4 units if not eating 301-350 9 units if eating/ 5 units if not eating > 351 Call Physician for futher orders Trazodone Hcl 100 Mg Tablet 200 Mg PO PRN QHS PRN Trazodone Hcl 50 Mg Tablet 25 Mg PO TID@0900,1300,1700 Culturelle (Lactobacillus Rhamnosus Gg) 1 Each Cap.sprink 1 Each PO BID Haloperidol 5 Mg Tablet 7.5 Mg PO DAILY Tylenol (Acetaminophen) 325 Mg Tablet 650 Mg PO PRN Q6HRS PRN Buspirone Hcl 10 Mg Tablet 20 Mg PO DAILY Theophylline Anhydrous 200 Mg Tab.er.12h 200 Mg PO BID Metolazone 5 Mg Tablet 5 Mg PO DAILY Metformin Hcl 500 Mg Tablet 500 Mg PO BIDWMEALS Cardizem Tablet (Diltiazem Hcl) 120 Mg Tablet 120 Mg PO DAILY Amantadine (Amantadine Hcl) 100 Mg Tablet 100 Mg PO BID Actos (Pioglitazone Hcl) 15 Mg Tablet 15 Mg PO DAILY Mirtazapine 15 Mg Tablet 15 Mg PO QHS Haldol Decanoate 100 (Haloperidol Decanoate) 100 Mg/1 Ml Ampul 450 Mg IM Q4WK Klor-Con M20 (Potassium Chloride) 20 Meq Tab.er.prt 40 Meq PO BIDWMEALS Analgesic [place] (Methyl Salicylate/Menthol) 28 Gm Oint...g. 1 [place] TP PRN QID PRN Magnesium Oxide 400 Mg Tablet 400 Mg PO BID Milk Of Magnesia (Magnesium Hydroxide) 2,400 Mg/10 Ml Oral.susp 2,400 Mg PO PRN QHS PRN Maalox Advanced Suspension (Mag Hydrox/Aluminum Hyd/Simeth) 355 Ml Oral.susp 15 Ml PO PRN AFTMEALHC PRN D3-50 (Cholecalciferol (Vitamin D3)) 50,000 Unit Capsule 50,000 Unit PO QTH Clonazepam 1 Mg Tablet 1 Mg PO TID Furosemide 40 Mg Tablet 80 Mg PO [id number] Hold for SBP less than 100. After held dose, reassess in 2 hours. If SBP is above threshold, administer dose as ordered. If SBP is below threshold, contact provider for additional instructions. I have reviewed the current psychotropics carefully including drug interactions. Risk benefit ratio favors no change other than as noted in my dictated progress note. Diagnosis: Problems: (1) Depression (2) Schizoaffective disorder (3) Anxiety disorder (4) Impulse control disorder (5) Schizoaffective disorder, chronic condition with acute exacerbation KALIN STARKS MD Mar 02, 2018 20:34
--- NOTE | 2018-03-02 20:34 | PDOC ---
Exam Note: Napoleon Note: Please also refer to the separate dictated note~for this date of service dictated separately.~Patient seen individually. Discussed the patient with Nursing staff reviewed the chart.~Reviewed interim history and current functioning. Reviewed vital signs,~Labs/ Radiology~and current medications noted below. Continue current treatment with the changes noted in the dictated addendum note Assessment: Vital Signs: Vital Signs Date Time Temp Pulse Resp B/P (MAP) Pulse Ox O2 Delivery O2 Flow Rate FiO2 03/02/18 16:12 95 Room Air 03/02/18 15:27 98.0 95 18 138/82 (100) I&O Intake and Output 03/02/18 06:59 Intake Total 640 ml Balance 640 ml Intake Oral 640 ml Labs: Laboratory Tests Test 03/02/18 07:15 03/02/18 12:01 03/02/18 17:03 03/02/18 19:24 Glucose (Fingerstick) 143 mg/dL (70-99) H 278 mg/dL (70-99) H 214 mg/dL (70-99) H 194 mg/dL (70-99) H Current Medications: Meds: Current Medications Lorazepam (Ativan) 2 mg 1X ONCE IM ; Start 02/10/18 at 04:00; Stop 02/10/18 at 04:01; Status DC Diphenhydramine HCl (Benadryl) 50 mg 1X ONCE IM ; Start 02/10/18 at 04:00; Stop 02/10/18 at 04:01; Status DC Ziprasidone (Geodon Im) 20 mg 1X ONCE IM ; Start 02/10/18 at 04:00; Stop at 04:01; Status DC Multivitamins/ Minerals 10 ml/ Folic Acid 1 mg/ Thiamine HCl 100 mg/Lactated Ringer's 1,011.1 ml @ 1,000 mls/ hr 1X ONCE IV ; Start 02/10/18 at 03:45; Stop 02/10/18 at 04:45; Status DC Magnesium Hydroxide (Milk Of Magnesia) 2,400 mg 1X ONCE PO ; Start 02/10/18 at 05:30; Stop 02/10/18 at 05:32; Status DC Potassium Chloride (KCl Oral Soln) 40 meq 1X ONCE PO ; Start 02/10/18 at 05:30 ; Stop 02/10/18 at 05:32; Status DC Acetaminophen (Tylenol) 650 mg PRN Q6HRS PRN PO PAIN / TEMP Last administered on 02/23/18at 12:43; Start 02/10/18 at 06:15 Multi-Ingredient Ointment (Analgesic [place]) 1 guanaco PRN QID PRN TP MUSCLE PAIN; Start 02/10/18 at 06:15 Al Hydroxide/Mg Hydroxide (Mylanta Plus Xs) 15 ml PRN AFTMEALHC PRN PO DYSPEPSIA; Start 02/10/18 at 06:15 Magnesium Hydroxide (Milk Of Magnesia) 2,400 mg PRN QHS PRN PO CONSTIPATION Last administered on 03/01/18 18:06; Start 02/10/18 at 06:15 Influenza Virus Vaccine (Afluria Trivalent [id number] Syringe) 0.5 ml ONCE ONCE VAX IM Last administered on 02/10/18 14:21; Start 02/10/18 at 09:00; Stop at 09:01; Status DC Vitamin D (Vitamin D3) 50,000 unit QTH PO Last administered on 02/20/18at 16:39 ; Start 02/13/18 at 16:00 Albuterol/ Ipratropium (Duoneb) 3 ml DAILY NEB Last administered on 03/02/18 16:11; Start 02/10/18 at 09:00 Lactobacillus Rhamnosus (Culturelle) 1 cap BID PO Last administered on 09:03; Start 02/10/18 at 09:00; Stop 02/22/18 at 18:00; Status DC Potassium Chloride (Klor-Con) 40 meq BIDWMEALS PO Last administered on at 09:59; Start 02/10/18 at 08:00 Amantadine HCl (Symmetrel) 100 mg BID PO Last administered on 02/26/18 08:21; Start 02/10/18 at 09:00; Stop 02/26/18 at 11:24; Status DC Buspirone HCl (Buspar) 10 mg 1300,1700 PO Last administered on 03/02/18 12:27 ; Start 02/10/18 at 13:00 Buspirone HCl (Buspar) 20 mg DAILY PO Last administered on 03/01/18at 10:00; Start 02/10/18 at 09:00 Clonazepam (KlonoPIN) 1 mg TID PO Last administered on 03/02/18 19:49; Start 02/10/18 at 09:00 Diltiazem HCl (Cardizem 24hr Cd) 120 mg DAILY PO Last administered on 10:01; Start 02/10/18 at 09:00 Furosemide (Lasix) 80 mg BID92 PO Last administered on 03/01/18 14:13; Start 02/10/18 at 09:00 Haloperidol (Haldol) 7.5 mg DAILY PO Last administered on 02/19/18 09:05; Start 02/10/18 at 09:00; Stop 02/19/18 at 18:16; Status DC Non-Formulary Medication (Haloperidol Decanoate (Haldol Decanoate 100)) 450 mg Q4WK IM ; Start 02/10/18 at 09:00; Stop 02/10/18 at 16:12; Status DC Non-Formulary Medication (Insulin Aspart (Novolog Flexpen)) see protocol TIDWMEALS SQ ; Start 02/10/18 at 08:00; Status UNV Magnesium Oxide (Magnesium Oxide) 400 mg BID PO Last administered on 03/02/18 19:49; Start 02/10/18 at 09:00 Metformin HCl (Glucophage) 500 mg BIDWMEALS PO Last administered on 03/01/18 09:59; Start 02/10/18 at 08:00 Metolazone (Zaroxolyn) 5 mg DAILY PO Last administered on 03/01/18 10:04; Start 02/10/18 at 09:00 Mirtazapine (Remeron) 15 mg QHS PO Last administered on 03/02/18 19:49; Start 02/10/18 at 21:00 Pioglitazone HCl (Actos) 15 mg DAILY PO Last administered on 03/01/18 10:00; Start 02/10/18 at 09:00 Trazodone HCl (Desyrel) 25 mg TID@0900,1300,1700 PO Last administered on 12:27; Start 02/10/18 at 09:00 Valproic Acid (Depakene) 750 mg TID PO Last administered on 9/24/18at 21:01; Start 02/10/18 at 09:00; Stop 02/18/18 at 08:06; Status DC Insulin Human Lispro (HumaLOG) 0-9 UNITS TIDWMEALS SQ Last administered on 03/02at 17:39; Start 02/10/18 at 08:00 Dextrose 12.5 gm PRN Q15MIN PRN IV SEE COMMENTS; Start 02/10/18 at 06:30 Olanzapine (ZyPREXA ZYDIS) 5 mg PRN Q2HR PRN PO PSYCHOSIS Last administered on 03/02/18at 12:27; Start 02/10/18 at 06:45 Haloperidol Decanoate (Haldol Decanoate Im Extended Release) 450 mg Q4WK IM ; Start 03/10/18 at 09:00 Trazodone HCl (Desyrel) 25 mg STK-MED ONCE .ROUTE ; Start 02/10/18 at 09:00; Stop 02/11/18 at 10:03; Status DC Trazodone HCl (Desyrel) 25 mg STK-MED ONCE .ROUTE ; Start 02/10/18 at 09:00; Stop 02/11/18 at 10:03; Status DC Trazodone HCl (Desyrel) 25 mg STK-MED ONCE .ROUTE ; Start 02/10/18 at 09:00; Stop 02/11/18 at 10:03; Status DC Trazodone HCl (Desyrel) 25 mg STK-MED ONCE .ROUTE ; Start 02/11/18 at 09:00; Stop 02/11/18 at 10:04; Status DC Clozapine (Clozaril) 25 mg HS PO Last administered on 02/16/18at 21:13; Start at 21:00; Stop 02/17/18 at 17:40; Status DC Nystatin (Nystop) 1 guanaco BID TP Last administered on 03/02/18 19:49; Start at 09:00 Trazodone HCl (Desyrel) 100 mg PRN QHS PRN PO INSOMNIA, MAY REPEAT X1; Start at 17:00; Stop 02/16/18 at 22:42; Status DC Trazodone HCl (Desyrel) 100 mg QHS PO Last administered on 03/02/18at 19:49; Start 02/16/18 at 23:00 Trazodone HCl (Desyrel) 100 mg PRN QHS PRN PO insomnia Last administered on 19:46; Start 02/16/18 at 22:45 Clozapine (Clozaril) 50 mg HS PO Last administered on 02/23/18 19:21; Start at 21:00; Stop 02/24/18 at 16:13; Status DC Divalproex Sodium (Depakote Sprinkles) 750 mg TID PO Last administered on 19:50; Start 02/18/18 at 09:00 Haloperidol (Haldol) 5 mg DAILY PO Last administered on 03/02/18 08:24; Start 02/20/18 at 09:00 Clozapine (Clozaril) 75 mg HS PO Last administered on 03/02/18 19:49; Start 02/24/18 at 21:00 Active Scripts Active Reported Duoneb 0.5-3(2.5) Mg/3 Ml (Albuterol/Ipratropium) 3 Ml Ampul.neb 3 Ml NEB DAILY Zyprexa Zydis (Olanzapine) 5 Mg Tab.rapdis 5 Mg PO PRN Q2HR PRN Buspirone Hcl 10 Mg Tablet 10 Mg PO BID@1300,1700 Valproic Acid (Valproate Sodium) 250 Mg/5 Ml Solution 750 Mg PO TID Novolog Flexpen (Insulin Aspart) 100 Unit/1 Ml Insuln.pen 0-9 Unit SQ TIDWMEALS <70 follow hypoglycemic protocol 70-150 0units if eating/ 0 if not eating 151-200 4 units if eating/ 0 units if not eating 201-250 5 units if eating/ 3 units if not eating 251-300 7 units if eating/ 4 units if not eating 301-350 9 units if eating/ 5 units if not eating > 351 Call Physician for futher orders Trazodone Hcl 100 Mg Tablet 200 Mg PO PRN QHS PRN Trazodone Hcl 50 Mg Tablet 25 Mg PO TID@0900,1300,1700 Culturelle (Lactobacillus Rhamnosus Gg) 1 Each Cap.sprink 1 Each PO BID Haloperidol 5 Mg Tablet 7.5 Mg PO DAILY Tylenol (Acetaminophen) 325 Mg Tablet 650 Mg PO PRN Q6HRS PRN Buspirone Hcl 10 Mg Tablet 20 Mg PO DAILY Theophylline Anhydrous 200 Mg Tab.er.12h 200 Mg PO BID Metolazone 5 Mg Tablet 5 Mg PO DAILY Metformin Hcl 500 Mg Tablet 500 Mg PO BIDWMEALS Cardizem Tablet (Diltiazem Hcl) 120 Mg Tablet 120 Mg PO DAILY Amantadine (Amantadine Hcl) 100 Mg Tablet 100 Mg PO BID Actos (Pioglitazone Hcl) 15 Mg Tablet 15 Mg PO DAILY Mirtazapine 15 Mg Tablet 15 Mg PO QHS Haldol Decanoate 100 (Haloperidol Decanoate) 100 Mg/1 Ml Ampul 450 Mg IM Q4WK Klor-Con M20 (Potassium Chloride) 20 Meq Tab.er.prt 40 Meq PO BIDWMEALS Analgesic [place] (Methyl Salicylate/Menthol) 28 Gm Oint...g. 1 Guanaco TP PRN QID PRN Magnesium Oxide 400 Mg Tablet 400 Mg PO BID Milk Of Magnesia (Magnesium Hydroxide) 2,400 Mg/10 Ml Oral.susp 2,400 Mg PO PRN QHS PRN Maalox Advanced Suspension (Mag Hydrox/Aluminum Hyd/Simeth) 355 Ml Oral.susp 15 Ml PO PRN AFTMEALHC PRN D3-50 (Cholecalciferol (Vitamin D3)) 50,000 Unit Capsule 50,000 Unit PO QTH Clonazepam 1 Mg Tablet 1 Mg PO TID Furosemide 40 Mg Tablet 80 Mg PO BID92 Hold for SBP less than 100. After held dose, reassess in 2 hours. If SBP is above threshold, administer dose as ordered. If SBP is below threshold, contact provider for additional instructions. I have reviewed the current psychotropics carefully including drug interactions. Risk benefit ratio favors no change other than as noted in my dictated progress note. Diagnosis: Problems: (1) Depression (2) Schizoaffective disorder (3) Anxiety disorder (4) Impulse control disorder (5) Schizoaffective disorder, chronic condition with acute exacerbation KALIN STARKS MD Mar 02, 2018 20:34
--- NOTE | 2018-03-03 01:19 | PN ---
DATE: 02/28/2018 This is a late entry for 02/28/2018 and covers elements not covered in my initial note. SUBJECTIVE: I met with the patient in the evening. The patient slept 2-1/2 hours previous evening, combative with blood sugar checks, scratching, biting staff member, only takes the white pills, the pills have to be crushed and hidden. REVIEW OF SYSTEMS: No CV, , pulmonary, eye system symptoms on review. Gait unsteady with walker. MENTAL STATUS EXAM: Oriented to herself and situation. Speech coherent, rapid, loud at times. Abstraction fair, computation impaired, language function intact. Mood and affect remain somewhat labile. LABORATORY DATA: Reviewed. The patient can be very irritable, resistive to cares, sarcastic to staff and other patients at times. IMPRESSION: Unchanged from initial note. PLAN: No change from initial note. MAN Mary STARKS MD DR: TRACIE/karli JOB#: [id number] / [id number]
--- NOTE | 2018-03-03 01:21 | PN ---
DATE: 03/01/2018 This is a late entry for 03/01/2018 and covers elements not covered in my initial note. SUBJECTIVE: I met with the patient in the evening. Per nursing report, the patient is little better this week than last week, but less yelling out, less resistive to call, moved all medications. REVIEW OF SYSTEMS: Ambulation impaired with walker. No CV, , pulmonary, eye, ENT system symptoms on review. MENTAL STATUS EXAM: Oriented to herself and situation. Insight, judgment, recent memory is impaired. Language function intact. Attention span short. Mood and affect remain somewhat anxious, labile, but improved. LABORATORY DATA: Reviewed. IMPRESSION: Unchanged from initial note. PLAN: No change from initial note. MAN Mary STARKS MD DR: TRACIE/karli JOB#: [id number] / [id number]
--- NOTE | 2018-03-03 01:25 | PN ---
DATE: 03/02/2018 This note covers elements not covered in my initial note. SUBJECTIVE: I met with the patient in the evening. Per nursing report, the patient has refused to almost all her medications. Remained somewhat labile, loud at times. REVIEW OF SYSTEMS: Ambulation impaired with walker. No CV, , pulmonary, eye, ENT system symptoms on review. Reliability poor. MENTAL STATUS EXAM: Oriented to herself and situation. Speech coherent, rapid, loud at times. Abstraction fair, computation impaired, language function intact. Mood and affect remain labile. LABORATORY DATA: Reviewed. IMPRESSION: Unchanged from initial note. PLAN: No change from initial note. Check CBC, absolute neutrophil count on 03/03/2018 and increase the Clozaril. Continue rest unchanged. MAN Mary STARKS MD DR: TRACIE/karli JOB#: [id number] / [id number]
[2018-03-03 06:09] VITALS: BP 137/72
[2018-03-03 07:00] LABS: BASO # 0.1 x10^3/uL (0.0-0.2); BASO % 1 % (0-3); EOS # 0.1 x10^3/uL (0.0-0.7); EOS % 2 % (0-3); HEMATOCRIT 37.6 % (36.0-47.0); HEMOGLOBIN 11.8 g/dL (12.0-15.5); LYMPH # 1.4 x10^3/uL (1.0-4.8); LYMPH % 27 % (24-48); MEAN CORPUSCULAR HEMOGLOBIN 28 pg (25-35); MEAN CORPUSCULAR HGB CONC 31 g/dL (31-37); MEAN CORPUSCULAR VOLUME 89 fL (79-100); MONO # 0.5 x10^3/uL (0.0-1.1); MONO % 11 % (0-9); NEUT # 3.1 x10^3uL (1.8-7.7); NEUT % 59 % (31-73); PLATELET COUNT 228 x10^3/uL (140-400); RED BLOOD COUNT 4.23 x10^6/uL (3.50-5.40); RED CELL DISTRIBUTION WIDTH 17.3 % (11.5-14.5); WHITE BLOOD COUNT 5.3 x10^3/uL (4.0-11.0)
[2018-03-03 07:07] LABS: ALBUMIN/GLOBULIN RATIO 0.6 (1.0-1.7); CALCIUM 9.3 mg/dL (8.5-10.1); CREATININE 1.2 mg/dL (0.6-1.0); GFR 54.9; POTASSIUM 3.6 mmol/L (3.5-5.1); TOTAL BILIRUBIN 0.2 mg/dL (0.2-1.0); TOTAL PROTEIN 7.9 g/dL (6.4-8.2)
[2018-03-03 07:29] LABS: VAL ACID 65 mcg/mL (50-100)
[2018-03-03] MEDS: INSULIN LISPRO 300 UNITS/3 ML INSULN.PEN. SQ SCH ×3 (08:19→17:20)
[2018-03-03] MEDS: metFORMIN 500 MG TABLET PO SCH ×2 (09:28→17:19)
[2018-03-03] MEDS: PIOGLITAZONE 15 MG TABLET. PO SCH (09:28)
[2018-03-03] MEDS: POTASSIUM CHLORIDE 20 MEQ TABLET.ER. PO SCH ×2 (09:28→17:19)
[2018-03-03] MEDS: busPIRone 10 MG TABLET. PO SCH ×3 (09:28→17:19)
[2018-03-03] MEDS: DIVALPROEX 125 MG CAP.SPRINK PO SCH ×3 (09:30→20:12)
[2018-03-03] MEDS: HALOPERIDOL 5 MG TABLET PO SCH (09:32)
[2018-03-03] MEDS: traZODone 50 MG TABLET. PO SCH ×3 (09:32→17:19)
[2018-03-03] MEDS: metOLazone 5 MG TABLET PO SCH (09:33)
[2018-03-03] MEDS: NYSTATIN TOPICAL POWDER 15GM BOTTLE. TP SCH ×2 (09:33→20:57)
[2018-03-03] MEDS: FUROSEMIDE 80 MG TABLET PO SCH ×2 (09:33→14:22)
[2018-03-03] MEDS: clonazePAM 1 MG TABLET PO SCH ×3 (09:33→20:13)
[2018-03-03] MEDS: MAGNESIUM OXIDE 400 MG TABLET PO SCH ×2 (09:33→20:12)
[2018-03-03] MEDS: IPRATRPIUM/ALBUTEROL 0.5/2.5MG 3 ML NEBU. NEB SCH (11:04)
--- NOTE | 2018-03-03 14:39 | PN ---
DATE: 03/01/2018 This late entry, 03/01/2018, covers elements not covered in my initial note. SUBJECTIVE: I met with the patient in the evening. KALIN STARKS MD DR: Momo JOB#: [id number] / [id number]
[2018-03-03 15:58] VITALS: BP 144/86
[2018-03-03] MEDS ORDERED: cloZAPine 100 MG TABLET PO SCH (16:30)
[2018-03-03] MEDS: traZODone 100 MG TABLET. PO SCH (20:12)
[2018-03-03] MEDS: MIRTAZAPINE 15 MG TABLET PO SCH (20:12)
[2018-03-03] MEDS: cloZAPine 100 MG TABLET PO SCH (20:13)
--- NOTE | 2018-03-03 21:00 | PDOC ---
Exam Note: Napoleon Note: Please also refer to the separate dictated note~for this date of service dictated separately.~Patient seen individually. Discussed the patient with Nursing staff reviewed the chart.~Reviewed interim history and current functioning. Reviewed vital signs,~Labs/ Radiology~and current medications noted below. Continue current treatment with the changes noted in the dictated addendum note Assessment: Vital Signs: Vital Signs Date Time Temp Pulse Resp B/P (MAP) Pulse Ox O2 Delivery O2 Flow Rate FiO2 03/03/18 15:58 98.3 94 20 144/86 (105) 92 03/03/18 11:04 Room Air I&O Intake and Output 03/03/18 06:59 Intake Total 720 ml Balance 720 ml Intake Oral 720 ml Labs: Laboratory Tests Test 03/03/18 06:33 03/03/18 07:28 03/03/18 11:39 03/03/18 17:02 White Blood Count 5.3 x10^3/uL (4.0-11.0) Red Blood Count 4.23 x10^6/uL (3.50-5.40) Hemoglobin 11.8 g/dL (12.0-15.5) L Hematocrit 37.6 % (36.0-47.0) Mean Corpuscular Volume 89 fL (79-100) Mean Corpuscular Hemoglobin 28 pg (25-35) Mean Corpuscular Hemoglobin Concent 31 g/dL (31-37) Red Cell Distribution Width 17.3 % (11.5-14.5) H Platelet Count 228 x10^3/uL (140-400) Neutrophils (%) (Auto) 59 % (31-73) Lymphocytes (%) (Auto) 27 % (24-48) Monocytes (%) (Auto) 11 % (0-9) H Eosinophils (%) (Auto) 2 % (0-3) Basophils (%) (Auto) 1 % (0-3) Neutrophils # (Auto) 3.1 x10^3uL (1.8-7.7) Lymphocytes # (Auto) 1.4 x10^3/uL (1.0-4.8) Monocytes # (Auto) 0.5 x10^3/uL (0.0-1.1) Eosinophils # (Auto) 0.1 x10^3/uL (0.0-0.7) Basophils # (Auto) 0.1 x10^3/uL (0.0-0.2) Sodium Level 141 mmol/L (136-145) Potassium Level 3.6 mmol/L (3.5-5.1) Chloride Level 99 mmol/L (98-107) Carbon Dioxide Level 39 mmol/L (21-32) H Anion Gap 3 (6-14) L Blood Urea Nitrogen 37 mg/dL (7-20) H Creatinine 1.2 mg/dL (0.6-1.0) H Estimated GFR (Cockcroft-Gault) 54.9 BUN/Creatinine Ratio 31 (6-20) H Glucose Level 171 mg/dL (70-99) H Calcium Level 9.3 mg/dL (8.5-10.1) Total Bilirubin 0.2 mg/dL (0.2-1.0) Aspartate Amino Transferase (AST) 11 U/L (15-37) L Alanine Aminotransferase (ALT) 17 U/L (14-59) Alkaline Phosphatase 94 U/L (46-116) Total Protein 7.9 g/dL (6.4-8.2) Albumin 3.0 g/dL (3.4-5.0) L Albumin/Globulin Ratio 0.6 (1.0-1.7) L Valproic Acid Level 65 mcg/mL (50-100) Valproic Acid Last Dose Date 03/02/2018 Valproic Acid Last Dose Time 2100 Glucose (Fingerstick) 244 mg/dL (70-99) H 185 mg/dL (70-99) H 190 mg/dL (70-99) H Test 03/03/18 19:14 Glucose (Fingerstick) 178 mg/dL (70-99) H Current Medications: Meds: Current Medications Lorazepam (Ativan) 2 mg 1X ONCE IM ; Start 02/10/18 at 04:00; Stop 02/10/18 at 04:01; Status DC Diphenhydramine HCl (Benadryl) 50 mg 1X ONCE IM ; Start 02/10/18 at 04:00; Stop 02/10/18 at 04:01; Status DC Ziprasidone (Geodon Im) 20 mg 1X ONCE IM ; Start 02/10/18 at 04:00; Stop at 04:01; Status DC Multivitamins/ Minerals 10 ml/ Folic Acid 1 mg/ Thiamine HCl 100 mg/Lactated Ringer's 1,011.1 ml @ 1,000 mls/ hr 1X ONCE IV ; Start 02/10/18 at 03:45; Stop 02/10/18 at 04:45; Status DC Magnesium Hydroxide (Milk Of Magnesia) 2,400 mg 1X ONCE PO ; Start 02/10/18 at 05:30; Stop 02/10/18 at 05:32; Status DC Potassium Chloride (KCl Oral Soln) 40 meq 1X ONCE PO ; Start 02/10/18 at 05:30 ; Stop 02/10/18 at 05:32; Status DC Acetaminophen (Tylenol) 650 mg PRN Q6HRS PRN PO PAIN / TEMP Last administered on 02/23/18at 12:43; Start 02/10/18 at 06:15 Multi-Ingredient Ointment (Analgesic [place]) 1 guanaco PRN QID PRN TP MUSCLE PAIN; Start 02/10/18 at 06:15 Al Hydroxide/Mg Hydroxide (Mylanta Plus Xs) 15 ml PRN AFTMEALHC PRN PO DYSPEPSIA; Start 02/10/18 at 06:15 Magnesium Hydroxide (Milk Of Magnesia) 2,400 mg PRN QHS PRN PO CONSTIPATION Last administered on 03/01/18at 18:06; Start 02/10/18 at 06:15 Influenza Virus Vaccine (Afluria Trivalent [id number] Syringe) 0.5 ml ONCE ONCE VAX IM Last administered on 02/10/18at 14:21; Start 02/10/18 at 09:00; Stop at 09:01; Status DC Vitamin D (Vitamin D3) 50,000 unit QTH PO Last administered on 02/20/18at 16:39 ; Start 02/13/18 at 16:00 Albuterol/ Ipratropium (Duoneb) 3 ml DAILY NEB Last administered on 03/03/18at 11:04; Start 02/10/18 at 09:00 Lactobacillus Rhamnosus (Culturelle) 1 cap BID PO Last administered on at 09:03; Start 02/10/18 at 09:00; Stop 02/22/18 at 18:00; Status DC Potassium Chloride (Klor-Con) 40 meq BIDWMEALS PO Last administered on 17:19; Start 02/10/18 at 08:00 Amantadine HCl (Symmetrel) 100 mg BID PO Last administered on 02/26/18 08:21; Start 02/10/18 at 09:00; Stop 02/26/18 at 11:24; Status DC Buspirone HCl (Buspar) 10 mg 1300,1700 PO Last administered on 03/03/18 17:19 ; Start 02/10/18 at 13:00 Buspirone HCl (Buspar) 20 mg DAILY PO Last administered on 03/03/18 09:28; Start 02/10/18 at 09:00 Clonazepam (KlonoPIN) 1 mg TID PO Last administered on 03/03/18 20:13; Start 02/10/18 at 09:00 Diltiazem HCl (Cardizem 24hr Cd) 120 mg DAILY PO Last administered on 09:29; Start 02/10/18 at 09:00 Furosemide (Lasix) 80 mg BID92 PO Last administered on 03/03/18 14:22; Start 02/10/18 at 09:00 Haloperidol (Haldol) 7.5 mg DAILY PO Last administered on 02/19/18 09:05; Start 02/10/18 at 09:00; Stop 02/19/18 at 18:16; Status DC Non-Formulary Medication (Haloperidol Decanoate (Haldol Decanoate 100)) 450 mg Q4WK IM ; Start 02/10/18 at 09:00; Stop 02/10/18 at 16:12; Status DC Non-Formulary Medication (Insulin Aspart (Novolog Flexpen)) see protocol TIDWMEALS SQ ; Start 02/10/18 at 08:00; Status UNV Magnesium Oxide (Magnesium Oxide) 400 mg BID PO Last administered on 03/03/18 20:12; Start 02/10/18 at 09:00 Metformin HCl (Glucophage) 500 mg BIDWMEALS PO Last administered on 03/03/18 17:19; Start 02/10/18 at 08:00 Metolazone (Zaroxolyn) 5 mg DAILY PO Last administered on 03/03/18 09:33; Start 02/10/18 at 09:00 Mirtazapine (Remeron) 15 mg QHS PO Last administered on 03/03/18at 20:12; Start 02/10/18 at 21:00 Pioglitazone HCl (Actos) 15 mg DAILY PO Last administered on 03/03/18at 09:28; Start 02/10/18 at 09:00 Trazodone HCl (Desyrel) 25 mg TID@0900,1300,1700 PO Last administered on 17:19; Start 02/10/18 at 09:00 Valproic Acid (Depakene) 750 mg TID PO Last administered on 02/17/18at 21:01; Start 02/10/18 at 09:00; Stop 02/18/18 at 08:06; Status DC Insulin Human Lispro (HumaLOG) 0-9 UNITS TIDWMEALS SQ Last administered on 03/03at 17:20; Start 02/10/18 at 08:00 Dextrose 12.5 gm PRN Q15MIN PRN IV SEE COMMENTS; Start 02/10/18 at 06:30 Olanzapine (ZyPREXA ZYDIS) 5 mg PRN Q2HR PRN PO PSYCHOSIS Last administered on 03/02/18at 12:27; Start 02/10/18 at 06:45 Haloperidol Decanoate (Haldol Decanoate Im Extended Release) 450 mg Q4WK IM ; Start 03/10/18 at 09:00 Trazodone HCl (Desyrel) 25 mg STK-MED ONCE .ROUTE ; Start 02/10/18 at 09:00; Stop 02/11/18 at 10:03; Status DC Trazodone HCl (Desyrel) 25 mg STK-MED ONCE .ROUTE ; Start 02/10/18 at 09:00; Stop 02/11/18 at 10:03; Status DC Trazodone HCl (Desyrel) 25 mg STK-MED ONCE .ROUTE ; Start 02/10/18 at 09:00; Stop 02/11/18 at 10:03; Status DC Trazodone HCl (Desyrel) 25 mg STK-MED ONCE .ROUTE ; Start 02/11/18 at 09:00; Stop 02/11/18 at 10:04; Status DC Clozapine (Clozaril) 25 mg HS PO Last administered on 02/16/18at 21:13; Start at 21:00; Stop 02/17/18 at 17:40; Status DC Nystatin (Nystop) 1 guanaco BID TP Last administered on 03/03/18at 09:33; Start at 09:00 Trazodone HCl (Desyrel) 100 mg PRN QHS PRN PO INSOMNIA, MAY REPEAT X1; Start at 17:00; Stop 02/16/18 at 22:42; Status DC Trazodone HCl (Desyrel) 100 mg QHS PO Last administered on 03/03/18 20:12; Start 02/16/18 at 23:00 Trazodone HCl (Desyrel) 100 mg PRN QHS PRN PO insomnia Last administered on 19:46; Start 02/16/18 at 22:45 Clozapine (Clozaril) 50 mg HS PO Last administered on 02/23/18 19:21; Start at 21:00; Stop 02/24/18 at 16:13; Status DC Divalproex Sodium (Depakote Sprinkles) 750 mg TID PO Last administered on 20:12; Start 02/18/18 at 09:00 Haloperidol (Haldol) 5 mg DAILY PO Last administered on 03/03/18at 09:32; Start 02/20/18 at 09:00; Stop 03/03/18 at 16:23; Status DC Clozapine (Clozaril) 75 mg HS PO Last administered on 03/02/18 19:49; Start 02/24/18 at 21:00; Stop 03/03/18 at 16:23; Status DC Clozapine (Clozaril) 100 mg HS PO ; Start 03/03/18 at 16:30; Stop 03/03/18 at 17 :06; Status DC Clozapine (Clozaril) 100 mg HS PO Last administered on 03/03/18at 20:13; Start 03/03/18 at 21:00 Active Scripts Active Reported Duoneb 0.5-3(2.5) Mg/3 Ml (Albuterol/Ipratropium) 3 Ml Ampul.neb 3 Ml NEB DAILY Zyprexa Zydis (Olanzapine) 5 Mg Tab.rapdis 5 Mg PO PRN Q2HR PRN Buspirone Hcl 10 Mg Tablet 10 Mg PO BID@1300,1700 Valproic Acid (Valproate Sodium) 250 Mg/5 Ml Solution 750 Mg PO TID Novolog Flexpen (Insulin Aspart) 100 Unit/1 Ml Insuln.pen 0-9 Unit SQ TIDWMEALS <70 follow hypoglycemic protocol 70-150 0units if eating/ 0 if not eating 151-200 4 units if eating/ 0 units if not eating 201-250 5 units if eating/ 3 units if not eating 251-300 7 units if eating/ 4 units if not eating 301-350 9 units if eating/ 5 units if not eating > 351 Call Physician for futher orders Trazodone Hcl 100 Mg Tablet 200 Mg PO PRN QHS PRN Trazodone Hcl 50 Mg Tablet 25 Mg PO TID@0900,1300,1700 Culturelle (Lactobacillus Rhamnosus Gg) 1 Each Cap.sprink 1 Each PO BID Haloperidol 5 Mg Tablet 7.5 Mg PO DAILY Tylenol (Acetaminophen) 325 Mg Tablet 650 Mg PO PRN Q6HRS PRN Buspirone Hcl 10 Mg Tablet 20 Mg PO DAILY Theophylline Anhydrous 200 Mg Tab.er.12h 200 Mg PO BID Metolazone 5 Mg Tablet 5 Mg PO DAILY Metformin Hcl 500 Mg Tablet 500 Mg PO BIDWMEALS Cardizem Tablet (Diltiazem Hcl) 120 Mg Tablet 120 Mg PO DAILY Amantadine (Amantadine Hcl) 100 Mg Tablet 100 Mg PO BID Actos (Pioglitazone Hcl) 15 Mg Tablet 15 Mg PO DAILY Mirtazapine 15 Mg Tablet 15 Mg PO QHS Haldol Decanoate 100 (Haloperidol Decanoate) 100 Mg/1 Ml Ampul 450 Mg IM Q4WK Klor-Con M20 (Potassium Chloride) 20 Meq Tab.er.prt 40 Meq PO BIDWMEALS Analgesic Bellerose (Methyl Salicylate/Menthol) 28 Gm Oint...g. 1 [place] TP PRN QID PRN Magnesium Oxide 400 Mg Tablet 400 Mg PO BID Milk Of Magnesia (Magnesium Hydroxide) 2,400 Mg/10 Ml Oral.susp 2,400 Mg PO PRN QHS PRN Maalox Advanced Suspension (Mag Hydrox/Aluminum Hyd/Simeth) 355 Ml Oral.susp 15 Ml PO PRN AFTMEALHC PRN D3-50 (Cholecalciferol (Vitamin D3)) 50,000 Unit Capsule 50,000 Unit PO QTH Clonazepam 1 Mg Tablet 1 Mg PO TID Furosemide 40 Mg Tablet 80 Mg PO [id number] Hold for SBP less than 100. After held dose, reassess in 2 hours. If SBP is above threshold, administer dose as ordered. If SBP is below threshold, contact provider for additional instructions. I have reviewed the current psychotropics carefully including drug interactions. Risk benefit ratio favors no change other than as noted in my dictated progress note. Diagnosis: Problems: (1) Depression (2) Schizoaffective disorder (3) Anxiety disorder (4) Impulse control disorder (5) Schizoaffective disorder, chronic condition with acute exacerbation KALIN STARKS MD Mar 03, 2018 21:00
[2018-03-04 06:16] VITALS: BP 155/83
[2018-03-04] MEDS: DIVALPROEX 125 MG CAP.SPRINK PO SCH ×3 (09:29→20:44)
[2018-03-04] MEDS: metFORMIN 500 MG TABLET PO SCH ×2 (09:29→17:25)
[2018-03-04] MEDS: FUROSEMIDE 80 MG TABLET PO SCH ×2 (09:30→12:51)
[2018-03-04] MEDS: busPIRone 10 MG TABLET. PO SCH ×3 (09:30→17:25)
[2018-03-04] MEDS: MAGNESIUM OXIDE 400 MG TABLET PO SCH ×2 (09:31→20:43)
[2018-03-04] MEDS: traZODone 50 MG TABLET. PO SCH ×3 (09:32→17:26)
[2018-03-04] MEDS: PIOGLITAZONE 15 MG TABLET. PO SCH (09:32)
[2018-03-04] MEDS: POTASSIUM CHLORIDE 20 MEQ TABLET.ER. PO SCH ×2 (09:33→17:26)
[2018-03-04] MEDS: INSULIN LISPRO 300 UNITS/3 ML INSULN.PEN. SQ SCH ×3 (09:35→17:29)
[2018-03-04] MEDS: clonazePAM 1 MG TABLET PO SCH ×3 (09:38→20:45)
[2018-03-04] MEDS: NYSTATIN TOPICAL POWDER 15GM BOTTLE. TP SCH ×2 (09:38→21:00)
[2018-03-04] MEDS: metOLazone 5 MG TABLET PO SCH (09:39)
[2018-03-04] MEDS: IPRATRPIUM/ALBUTEROL 0.5/2.5MG 3 ML NEBU. NEB SCH (11:03)
[2018-03-04 16:53] VITALS: BP 127/77
[2018-03-04] MEDS: MIRTAZAPINE 15 MG TABLET PO SCH (20:43)
[2018-03-04] MEDS: traZODone 100 MG TABLET. PO SCH (20:43)
[2018-03-04] MEDS: cloZAPine 100 MG TABLET PO SCH (20:45)
--- NOTE | 2018-03-04 21:12 | PDOC ---
Exam Note: Napoleon Note: Please also refer to the separate dictated note~for this date of service dictated separately.~Patient seen individually. Discussed the patient with Nursing staff reviewed the chart.~Reviewed interim history and current functioning. Reviewed vital signs,~Labs/ Radiology~and current medications noted below. Continue current treatment with the changes noted in the dictated addendum note Assessment: Vital Signs: Vital Signs Date Time Temp Pulse Resp B/P (MAP) Pulse Ox O2 Delivery O2 Flow Rate FiO2 03/04/18 16:53 97.2 98 20 127/77 (94) 96 03/04/18 11:05 Room Air I&O Intake and Output 03/04/18 07:00 Intake Total 560 ml Balance 560 ml Intake Oral 560 ml Labs: Laboratory Tests Test 03/04/18 07:21 03/04/18 11:20 03/04/18 16:24 03/04/18 19:09 Glucose (Fingerstick) 185 mg/dL (70-99) H 184 mg/dL (70-99) H 183 mg/dL (70-99) H 222 mg/dL (70-99) H Current Medications: Meds: Current Medications Lorazepam (Ativan) 2 mg 1X ONCE IM ; Start 02/10/18 at 04:00; Stop 02/10/18 at 04:01; Status DC Diphenhydramine HCl (Benadryl) 50 mg 1X ONCE IM ; Start 02/10/18 at 04:00; Stop 02/10/18 at 04:01; Status DC Ziprasidone (Geodon Im) 20 mg 1X ONCE IM ; Start 02/10/18 at 04:00; Stop at 04:01; Status DC Multivitamins/ Minerals 10 ml/ Folic Acid 1 mg/ Thiamine HCl 100 mg/Lactated Ringer's 1,011.1 ml @ 1,000 mls/ hr 1X ONCE IV ; Start 02/10/18 at 03:45; Stop 02/10/18 at 04:45; Status DC Magnesium Hydroxide (Milk Of Magnesia) 2,400 mg 1X ONCE PO ; Start 02/10/18 at 05:30; Stop 02/10/18 at 05:32; Status DC Potassium Chloride (KCl Oral Soln) 40 meq 1X ONCE PO ; Start 02/10/18 at 05:30 ; Stop 02/10/18 at 05:32; Status DC Acetaminophen (Tylenol) 650 mg PRN Q6HRS PRN PO PAIN / TEMP Last administered on 02/23/18at 12:43; Start 02/10/18 at 06:15 Multi-Ingredient Ointment (Analgesic [place]) 1 guanaco PRN QID PRN TP MUSCLE PAIN; Start 02/10/18 at 06:15 Al Hydroxide/Mg Hydroxide (Mylanta Plus Xs) 15 ml PRN AFTMEALHC PRN PO DYSPEPSIA; Start 02/10/18 at 06:15 Magnesium Hydroxide (Milk Of Magnesia) 2,400 mg PRN QHS PRN PO CONSTIPATION Last administered on 03/01/18 18:06; Start 02/10/18 at 06:15 Influenza Virus Vaccine (Afluria Trivalent [id number] Syringe) 0.5 ml ONCE ONCE VAX IM Last administered on 02/10/18 14:21; Start 02/10/18 at 09:00; Stop at 09:01; Status DC Vitamin D (Vitamin D3) 50,000 unit QTH PO Last administered on 02/20/18at 16:39 ; Start 02/13/18 at 16:00 Albuterol/ Ipratropium (Duoneb) 3 ml DAILY NEB Last administered on 03/04/18 11:03; Start 02/10/18 at 09:00 Lactobacillus Rhamnosus (Culturelle) 1 cap BID PO Last administered on 09:03; Start 02/10/18 at 09:00; Stop 02/22/18 at 18:00; Status DC Potassium Chloride (Klor-Con) 40 meq BIDWMEALS PO Last administered on 17:26; Start 02/10/18 at 08:00 Amantadine HCl (Symmetrel) 100 mg BID PO Last administered on 02/26/18 08:21; Start 02/10/18 at 09:00; Stop 02/26/18 at 11:24; Status DC Buspirone HCl (Buspar) 10 mg 1300,1700 PO Last administered on 03/04/18 17:25 ; Start 02/10/18 at 13:00 Buspirone HCl (Buspar) 20 mg DAILY PO Last administered on 03/04/18at 09:30; Start 02/10/18 at 09:00 Clonazepam (KlonoPIN) 1 mg TID PO Last administered on 03/04/18 20:45; Start 02/10/18 at 09:00 Diltiazem HCl (Cardizem 24hr Cd) 120 mg DAILY PO Last administered on 09:45; Start 02/10/18 at 09:00 Furosemide (Lasix) 80 mg BID92 PO Last administered on 03/04/18 12:51; Start 02/10/18 at 09:00 Haloperidol (Haldol) 7.5 mg DAILY PO Last administered on 02/19/18 09:05; Start 02/10/18 at 09:00; Stop 02/19/18 at 18:16; Status DC Non-Formulary Medication (Haloperidol Decanoate (Haldol Decanoate 100)) 450 mg Q4WK IM ; Start 02/10/18 at 09:00; Stop 02/10/18 at 16:12; Status DC Non-Formulary Medication (Insulin Aspart (Novolog Flexpen)) see protocol TIDWMEALS SQ ; Start 02/10/18 at 08:00; Status UNV Magnesium Oxide (Magnesium Oxide) 400 mg BID PO Last administered on 03/04/18 20:43; Start 02/10/18 at 09:00 Metformin HCl (Glucophage) 500 mg BIDWMEALS PO Last administered on 03/04/18 17:25; Start 02/10/18 at 08:00 Metolazone (Zaroxolyn) 5 mg DAILY PO Last administered on 03/04/18 09:39; Start 02/10/18 at 09:00 Mirtazapine (Remeron) 15 mg QHS PO Last administered on 03/04/18 20:43; Start 02/10/18 at 21:00 Pioglitazone HCl (Actos) 15 mg DAILY PO Last administered on 03/04/18 09:32; Start 02/10/18 at 09:00 Trazodone HCl (Desyrel) 25 mg TID@0900,1300,1700 PO Last administered on 17:26; Start 02/10/18 at 09:00 Valproic Acid (Depakene) 750 mg TID PO Last administered on 9/24/18at 21:01; Start 02/10/18 at 09:00; Stop 02/18/18 at 08:06; Status DC Insulin Human Lispro (HumaLOG) 0-9 UNITS TIDWMEALS SQ Last administered on 03/04at 17:29; Start 02/10/18 at 08:00 Dextrose 12.5 gm PRN Q15MIN PRN IV SEE COMMENTS; Start 02/10/18 at 06:30 Olanzapine (ZyPREXA ZYDIS) 5 mg PRN Q2HR PRN PO PSYCHOSIS Last administered on 03/02/18at 12:27; Start 02/10/18 at 06:45 Haloperidol Decanoate (Haldol Decanoate Im Extended Release) 450 mg Q4WK IM ; Start 03/10/18 at 09:00 Trazodone HCl (Desyrel) 25 mg STK-MED ONCE .ROUTE ; Start 02/10/18 at 09:00; Stop 02/11/18 at 10:03; Status DC Trazodone HCl (Desyrel) 25 mg STK-MED ONCE .ROUTE ; Start 02/10/18 at 09:00; Stop 02/11/18 at 10:03; Status DC Trazodone HCl (Desyrel) 25 mg STK-MED ONCE .ROUTE ; Start 02/10/18 at 09:00; Stop 02/11/18 at 10:03; Status DC Trazodone HCl (Desyrel) 25 mg STK-MED ONCE .ROUTE ; Start 02/11/18 at 09:00; Stop 02/11/18 at 10:04; Status DC Clozapine (Clozaril) 25 mg HS PO Last administered on 02/16/18at 21:13; Start at 21:00; Stop 02/17/18 at 17:40; Status DC Nystatin (Nystop) 1 guanaco BID TP Last administered on 03/04/18at 09:38; Start at 09:00 Trazodone HCl (Desyrel) 100 mg PRN QHS PRN PO INSOMNIA, MAY REPEAT X1; Start at 17:00; Stop 02/16/18 at 22:42; Status DC Trazodone HCl (Desyrel) 100 mg QHS PO Last administered on 03/04/18at 20:43; Start 02/16/18 at 23:00 Trazodone HCl (Desyrel) 100 mg PRN QHS PRN PO insomnia Last administered on 19:46; Start 02/16/18 at 22:45 Clozapine (Clozaril) 50 mg HS PO Last administered on 02/23/18 19:21; Start at 21:00; Stop 02/24/18 at 16:13; Status DC Divalproex Sodium (Depakote Sprinkles) 750 mg TID PO Last administered on 20:44; Start 02/18/18 at 09:00 Haloperidol (Haldol) 5 mg DAILY PO Last administered on 03/03/18at 09:32; Start 02/20/18 at 09:00; Stop 03/03/18 at 16:23; Status DC Clozapine (Clozaril) 75 mg HS PO Last administered on 03/02/18 19:49; Start 02/24/18 at 21:00; Stop 03/03/18 at 16:23; Status DC Clozapine (Clozaril) 100 mg HS PO ; Start 03/03/18 at 16:30; Stop 03/03/18 at 17 :06; Status DC Clozapine (Clozaril) 100 mg HS PO Last administered on 03/04/18 20:45; Start 03/03/18 at 21:00 Active Scripts Active Reported Duoneb 0.5-3(2.5) Mg/3 Ml (Albuterol/Ipratropium) 3 Ml Ampul.neb 3 Ml NEB DAILY Zyprexa Zydis (Olanzapine) 5 Mg Tab.rapdis 5 Mg PO PRN Q2HR PRN Buspirone Hcl 10 Mg Tablet 10 Mg PO BID@1300,1700 Valproic Acid (Valproate Sodium) 250 Mg/5 Ml Solution 750 Mg PO TID Novolog Flexpen (Insulin Aspart) 100 Unit/1 Ml Insuln.pen 0-9 Unit SQ TIDWMEALS <70 follow hypoglycemic protocol 70-150 0units if eating/ 0 if not eating 151-200 4 units if eating/ 0 units if not eating 201-250 5 units if eating/ 3 units if not eating 251-300 7 units if eating/ 4 units if not eating 301-350 9 units if eating/ 5 units if not eating > 351 Call Physician for futher orders Trazodone Hcl 100 Mg Tablet 200 Mg PO PRN QHS PRN Trazodone Hcl 50 Mg Tablet 25 Mg PO TID@0900,1300,1700 Culturelle (Lactobacillus Rhamnosus Gg) 1 Each Cap.sprink 1 Each PO BID Haloperidol 5 Mg Tablet 7.5 Mg PO DAILY Tylenol (Acetaminophen) 325 Mg Tablet 650 Mg PO PRN Q6HRS PRN Buspirone Hcl 10 Mg Tablet 20 Mg PO DAILY Theophylline Anhydrous 200 Mg Tab.er.12h 200 Mg PO BID Metolazone 5 Mg Tablet 5 Mg PO DAILY Metformin Hcl 500 Mg Tablet 500 Mg PO BIDWMEALS Cardizem Tablet (Diltiazem Hcl) 120 Mg Tablet 120 Mg PO DAILY Amantadine (Amantadine Hcl) 100 Mg Tablet 100 Mg PO BID Actos (Pioglitazone Hcl) 15 Mg Tablet 15 Mg PO DAILY Mirtazapine 15 Mg Tablet 15 Mg PO QHS Haldol Decanoate 100 (Haloperidol Decanoate) 100 Mg/1 Ml Ampul 450 Mg IM Q4WK Klor-Con M20 (Potassium Chloride) 20 Meq Tab.er.prt 40 Meq PO BIDWMEALS Analgesic [place] (Methyl Salicylate/Menthol) 28 Gm Oint...g. 1 Guanaco TP PRN QID PRN Magnesium Oxide 400 Mg Tablet 400 Mg PO BID Milk Of Magnesia (Magnesium Hydroxide) 2,400 Mg/10 Ml Oral.susp 2,400 Mg PO PRN QHS PRN Maalox Advanced Suspension (Mag Hydrox/Aluminum Hyd/Simeth) 355 Ml Oral.susp 15 Ml PO PRN AFTMEALHC PRN D3-50 (Cholecalciferol (Vitamin D3)) 50,000 Unit Capsule 50,000 Unit PO QTH Clonazepam 1 Mg Tablet 1 Mg PO TID Furosemide 40 Mg Tablet 80 Mg PO [id number] Hold for SBP less than 100. After held dose, reassess in 2 hours. If SBP is above threshold, administer dose as ordered. If SBP is below threshold, contact provider for additional instructions. I have reviewed the current psychotropics carefully including drug interactions. Risk benefit ratio favors no change other than as noted in my dictated progress note. Diagnosis: Problems: (1) Depression (2) Schizoaffective disorder (3) Anxiety disorder (4) Impulse control disorder (5) Schizoaffective disorder, chronic condition with acute exacerbation KALIN STARKS MD Mar 04, 2018 21:12
--- NOTE | 2018-03-04 23:42 | PN ---
DATE: 03/03/2018 This is a late entry for 03/03/2018 covers elements not covered in my initial note. SUBJECTIVE: I met with the patient in the evening. The patient slept 5-3/4 hours previous night. She took her medications previous night, took them the morning of 03/03/2018 even after she told the staff, she would not take them. Staff encouraged her to take her medications then go to groups, which is something she wanted to do and this helped with compliance. REVIEW OF SYSTEMS: Ambulation impaired with walker. No CV, , pulmonary, eye, ENT system symptoms on review. She has vague somatic symptoms. MENTAL STATUS EXAM: Oriented to herself. Insight, judgment, recent memory is impaired. Remembered 1/3 objects at 3 minutes. Unable to do serial sevens, but the mood lability, psychotic symptoms are better. No active suicidal or homicidal ideation. LABORATORY DATA: Reviewed. IMPRESSION: Schizoaffective disorder, bipolar type, mixed with psychotic features, in partial remission; major neurocognitive disorder, Alzheimer, vascular with delusion, behavioral disturbance. Rest unchanged. PLAN: Absolute neutrophil count is unremarkable. We will increase the Clozaril from 75 mg at bedtime to 100 mg at bedtime. Stop the oral Haldol 5 mg daily. She is maintained on Haldol Decanoate 450 mg IM every 28 days and BuSpar 20 mg in the morning, 10 mg t.i.d., Remeron. Amantadine was previously discontinued. Continue Depakote, level is therapeutic at 58. Rest unchanged. KALIN STARKS MD DR: TRACIE/karli JOB#: [id number] / [id number]
[2018-03-05 06:11] VITALS: BP 149/61
[2018-03-05] MEDS: FUROSEMIDE 80 MG TABLET PO SCH ×2 (08:07→14:05)
[2018-03-05] MEDS: DIVALPROEX 125 MG CAP.SPRINK PO SCH ×3 (08:08→19:17)
[2018-03-05] MEDS: MAGNESIUM OXIDE 400 MG TABLET PO SCH ×2 (08:08→19:17)
[2018-03-05] MEDS: POTASSIUM CHLORIDE 20 MEQ TABLET.ER. PO SCH ×2 (08:09→18:12)
[2018-03-05] MEDS: metFORMIN 500 MG TABLET PO SCH ×2 (08:10→18:09)
[2018-03-05] MEDS: PIOGLITAZONE 15 MG TABLET. PO SCH (08:10)
[2018-03-05] MEDS: traZODone 50 MG TABLET. PO SCH ×3 (08:10→18:09)
[2018-03-05] MEDS: busPIRone 10 MG TABLET. PO SCH ×3 (08:10→18:09)
[2018-03-05] MEDS: metOLazone 5 MG TABLET PO SCH (08:11)
[2018-03-05] MEDS: INSULIN LISPRO 300 UNITS/3 ML INSULN.PEN. SQ SCH ×3 (08:12→18:10)
[2018-03-05] MEDS: clonazePAM 1 MG TABLET PO SCH ×3 (08:13→19:21)
[2018-03-05] MEDS: NYSTATIN TOPICAL POWDER 15GM BOTTLE. TP SCH ×2 (09:00→21:00)
[2018-03-05] MEDS: IPRATRPIUM/ALBUTEROL 0.5/2.5MG 3 ML NEBU. NEB SCH (10:13)
[2018-03-05 16:21] VITALS: BP 99/53
[2018-03-05] MEDS: traZODone 100 MG TABLET. PO SCH (19:17)
[2018-03-05] MEDS: cloZAPine 100 MG TABLET PO SCH (19:17)
[2018-03-05] MEDS: MIRTAZAPINE 15 MG TABLET PO SCH (19:18)
--- NOTE | 2018-03-05 21:08 | PDOC ---
Exam Note: Napoleon Note: Please also refer to the separate dictated note~for this date of service dictated separately.~Patient seen individually. Discussed the patient with Nursing staff reviewed the chart.~Reviewed interim history and current functioning. Reviewed vital signs,~Labs/ Radiology~and current medications noted below. Continue current treatment with the changes noted in the dictated addendum note Assessment: Vital Signs: Vital Signs Date Time Temp Pulse Resp B/P (MAP) Pulse Ox O2 Delivery O2 Flow Rate FiO2 03/05/18 16:21 97.2 81 20 99/53 (68) 97 03/05/18 10:15 Room Air I&O Intake and Output 03/05/18 07:00 Intake Total 1800 ml Balance 1800 ml Intake Oral 1800 ml Labs: Laboratory Tests Test 03/05/18 07:37 03/05/18 11:41 03/05/18 16:56 03/05/18 19:22 Glucose (Fingerstick) 199 mg/dL (70-99) H 175 mg/dL (70-99) H 229 mg/dL (70-99) H 283 mg/dL (70-99) H Current Medications: Meds: Current Medications Lorazepam (Ativan) 2 mg 1X ONCE IM ; Start 02/10/18 at 04:00; Stop 02/10/18 at 04:01; Status DC Diphenhydramine HCl (Benadryl) 50 mg 1X ONCE IM ; Start 02/10/18 at 04:00; Stop 02/10/18 at 04:01; Status DC Ziprasidone (Geodon Im) 20 mg 1X ONCE IM ; Start 02/10/18 at 04:00; Stop at 04:01; Status DC Multivitamins/ Minerals 10 ml/ Folic Acid 1 mg/ Thiamine HCl 100 mg/Lactated Ringer's 1,011.1 ml @ 1,000 mls/ hr 1X ONCE IV ; Start 02/10/18 at 03:45; Stop 02/10/18 at 04:45; Status DC Magnesium Hydroxide (Milk Of Magnesia) 2,400 mg 1X ONCE PO ; Start 02/10/18 at 05:30; Stop 02/10/18 at 05:32; Status DC Potassium Chloride (KCl Oral Soln) 40 meq 1X ONCE PO ; Start 02/10/18 at 05:30 ; Stop 02/10/18 at 05:32; Status DC Acetaminophen (Tylenol) 650 mg PRN Q6HRS PRN PO PAIN / TEMP Last administered on 02/23/18at 12:43; Start 02/10/18 at 06:15 Multi-Ingredient Ointment (Analgesic [place]) 1 guanaco PRN QID PRN TP MUSCLE PAIN; Start 02/10/18 at 06:15 Al Hydroxide/Mg Hydroxide (Mylanta Plus Xs) 15 ml PRN AFTMEALHC PRN PO DYSPEPSIA; Start 02/10/18 at 06:15 Magnesium Hydroxide (Milk Of Magnesia) 2,400 mg PRN QHS PRN PO CONSTIPATION Last administered on 03/01/18 18:06; Start 02/10/18 at 06:15 Influenza Virus Vaccine (Afluria Trivalent [id number] Syringe) 0.5 ml ONCE ONCE VAX IM Last administered on 02/10/18 14:21; Start 02/10/18 at 09:00; Stop at 09:01; Status DC Vitamin D (Vitamin D3) 50,000 unit QTH PO Last administered on 02/20/18at 16:39 ; Start 02/13/18 at 16:00 Albuterol/ Ipratropium (Duoneb) 3 ml DAILY NEB Last administered on 03/05/18at 10:13; Start 02/10/18 at 09:00 Lactobacillus Rhamnosus (Culturelle) 1 cap BID PO Last administered on 09:03; Start 02/10/18 at 09:00; Stop 02/22/18 at 18:00; Status DC Potassium Chloride (Klor-Con) 40 meq BIDWMEALS PO Last administered on at 18:12; Start 02/10/18 at 08:00 Amantadine HCl (Symmetrel) 100 mg BID PO Last administered on 02/26/18 08:21; Start 02/10/18 at 09:00; Stop 02/26/18 at 11:24; Status DC Buspirone HCl (Buspar) 10 mg 1300,1700 PO Last administered on 03/05/18 18:09 ; Start 02/10/18 at 13:00 Buspirone HCl (Buspar) 20 mg DAILY PO Last administered on 03/05/18at 08:10; Start 02/10/18 at 09:00 Clonazepam (KlonoPIN) 1 mg TID PO Last administered on 03/05/18 19:21; Start 02/10/18 at 09:00 Diltiazem HCl (Cardizem 24hr Cd) 120 mg DAILY PO Last administered on 08:08; Start 02/10/18 at 09:00 Furosemide (Lasix) 80 mg BID92 PO Last administered on 03/05/18at 14:05; Start 02/10/18 at 09:00 Haloperidol (Haldol) 7.5 mg DAILY PO Last administered on 02/19/18 09:05; Start 02/10/18 at 09:00; Stop 02/19/18 at 18:16; Status DC Non-Formulary Medication (Haloperidol Decanoate (Haldol Decanoate 100)) 450 mg Q4WK IM ; Start 02/10/18 at 09:00; Stop 02/10/18 at 16:12; Status DC Non-Formulary Medication (Insulin Aspart (Novolog Flexpen)) see protocol TIDWMEALS SQ ; Start 02/10/18 at 08:00; Status UNV Magnesium Oxide (Magnesium Oxide) 400 mg BID PO Last administered on 19:17; Start 02/10/18 at 09:00 Metformin HCl (Glucophage) 500 mg BIDWMEALS PO Last administered on 03/05/18 18:09; Start 02/10/18 at 08:00 Metolazone (Zaroxolyn) 5 mg DAILY PO Last administered on 03/05/18 08:11; Start 02/10/18 at 09:00 Mirtazapine (Remeron) 15 mg QHS PO Last administered on 03/05/18 19:18; Start 02/10/18 at 21:00 Pioglitazone HCl (Actos) 15 mg DAILY PO Last administered on 03/05/18 08:10; Start 02/10/18 at 09:00 Trazodone HCl (Desyrel) 25 mg TID@0900,1300,1700 PO Last administered on 18:09; Start 02/10/18 at 09:00 Valproic Acid (Depakene) 750 mg TID PO Last administered on 02/17/18at 21:01; Start 02/10/18 at 09:00; Stop 02/18/18 at 08:06; Status DC Insulin Human Lispro (HumaLOG) 0-9 UNITS TIDWMEALS SQ Last administered on 03/13at 18:10; Start 02/10/18 at 08:00 Dextrose 12.5 gm PRN Q15MIN PRN IV SEE COMMENTS; Start 02/10/18 at 06:30 Olanzapine (ZyPREXA ZYDIS) 5 mg PRN Q2HR PRN PO PSYCHOSIS Last administered on 03/02/18at 12:27; Start 02/10/18 at 06:45 Haloperidol Decanoate (Haldol Decanoate Im Extended Release) 450 mg Q4WK IM ; Start 03/10/18 at 09:00 Trazodone HCl (Desyrel) 25 mg STK-MED ONCE .ROUTE ; Start 02/10/18 at 09:00; Stop 02/11/18 at 10:03; Status DC Trazodone HCl (Desyrel) 25 mg STK-MED ONCE .ROUTE ; Start 02/10/18 at 09:00; Stop 02/11/18 at 10:03; Status DC Trazodone HCl (Desyrel) 25 mg STK-MED ONCE .ROUTE ; Start 02/10/18 at 09:00; Stop 02/11/18 at 10:03; Status DC Trazodone HCl (Desyrel) 25 mg STK-MED ONCE .ROUTE ; Start 02/11/18 at 09:00; Stop 02/11/18 at 10:04; Status DC Clozapine (Clozaril) 25 mg HS PO Last administered on 02/16/18at 21:13; Start at 21:00; Stop 02/17/18 at 17:40; Status DC Nystatin (Nystop) 1 guanaco BID TP Last administered on 03/04/18at 09:38; Start at 09:00 Trazodone HCl (Desyrel) 100 mg PRN QHS PRN PO INSOMNIA, MAY REPEAT X1; Start at 17:00; Stop 02/16/18 at 22:42; Status DC Trazodone HCl (Desyrel) 100 mg QHS PO Last administered on 03/05/18at 19:17; Start 02/16/18 at 23:00 Trazodone HCl (Desyrel) 100 mg PRN QHS PRN PO insomnia Last administered on 19:46; Start 02/16/18 at 22:45 Clozapine (Clozaril) 50 mg HS PO Last administered on 02/23/18 19:21; Start at 21:00; Stop 02/24/18 at 16:13; Status DC Divalproex Sodium (Depakote Sprinkles) 750 mg TID PO Last administered on 03/05 19:17; Start 02/18/18 at 09:00 Haloperidol (Haldol) 5 mg DAILY PO Last administered on 03/03/18at 09:32; Start 02/20/18 at 09:00; Stop 03/03/18 at 16:23; Status DC Clozapine (Clozaril) 75 mg HS PO Last administered on 03/02/18 19:49; Start 02/24/18 at 21:00; Stop 03/03/18 at 16:23; Status DC Clozapine (Clozaril) 100 mg HS PO ; Start 03/03/18 at 16:30; Stop 03/03/18 at 17 :06; Status DC Clozapine (Clozaril) 100 mg HS PO Last administered on 03/05/18 19:17; Start 03/03/18 at 21:00 Active Scripts Active Reported Duoneb 0.5-3(2.5) Mg/3 Ml (Albuterol/Ipratropium) 3 Ml Ampul.neb 3 Ml NEB DAILY Zyprexa Zydis (Olanzapine) 5 Mg Tab.rapdis 5 Mg PO PRN Q2HR PRN Buspirone Hcl 10 Mg Tablet 10 Mg PO BID@1300,1700 Valproic Acid (Valproate Sodium) 250 Mg/5 Ml Solution 750 Mg PO TID Novolog Flexpen (Insulin Aspart) 100 Unit/1 Ml Insuln.pen 0-9 Unit SQ TIDWMEALS <70 follow hypoglycemic protocol 70-150 0units if eating/ 0 if not eating 151-200 4 units if eating/ 0 units if not eating 201-250 5 units if eating/ 3 units if not eating 251-300 7 units if eating/ 4 units if not eating 301-350 9 units if eating/ 5 units if not eating > 351 Call Physician for futher orders Trazodone Hcl 100 Mg Tablet 200 Mg PO PRN QHS PRN Trazodone Hcl 50 Mg Tablet 25 Mg PO TID@0900,1300,1700 Culturelle (Lactobacillus Rhamnosus Gg) 1 Each Cap.sprink 1 Each PO BID Haloperidol 5 Mg Tablet 7.5 Mg PO DAILY Tylenol (Acetaminophen) 325 Mg Tablet 650 Mg PO PRN Q6HRS PRN Buspirone Hcl 10 Mg Tablet 20 Mg PO DAILY Theophylline Anhydrous 200 Mg Tab.er.12h 200 Mg PO BID Metolazone 5 Mg Tablet 5 Mg PO DAILY Metformin Hcl 500 Mg Tablet 500 Mg PO BIDWMEALS Cardizem Tablet (Diltiazem Hcl) 120 Mg Tablet 120 Mg PO DAILY Amantadine (Amantadine Hcl) 100 Mg Tablet 100 Mg PO BID Actos (Pioglitazone Hcl) 15 Mg Tablet 15 Mg PO DAILY Mirtazapine 15 Mg Tablet 15 Mg PO QHS Haldol Decanoate 100 (Haloperidol Decanoate) 100 Mg/1 Ml Ampul 450 Mg IM Q4WK Klor-Con M20 (Potassium Chloride) 20 Meq Tab.er.prt 40 Meq PO BIDWMEALS Analgesic [place] (Methyl Salicylate/Menthol) 28 Gm Oint...g. 1 Guanaco TP PRN QID PRN Magnesium Oxide 400 Mg Tablet 400 Mg PO BID Milk Of Magnesia (Magnesium Hydroxide) 2,400 Mg/10 Ml Oral.susp 2,400 Mg PO PRN QHS PRN Maalox Advanced Suspension (Mag Hydrox/Aluminum Hyd/Simeth) 355 Ml Oral.susp 15 Ml PO PRN AFTMEALHC PRN D3-50 (Cholecalciferol (Vitamin D3)) 50,000 Unit Capsule 50,000 Unit PO QTH Clonazepam 1 Mg Tablet 1 Mg PO TID Furosemide 40 Mg Tablet 80 Mg PO [id number] Hold for SBP less than 100. After held dose, reassess in 2 hours. If SBP is above threshold, administer dose as ordered. If SBP is below threshold, contact provider for additional instructions. I have reviewed the current psychotropics carefully including drug interactions. Risk benefit ratio favors no change other than as noted in my dictated progress note. Diagnosis: Problems: (1) Depression (2) Schizoaffective disorder (3) Anxiety disorder (4) Impulse control disorder (5) Schizoaffective disorder, chronic condition with acute exacerbation KALIN STARKS MD Mar 05, 2018 21:08
--- NOTE | 2018-03-05 21:53 | PN ---
DATE: 03/04/2018 PSYCHIATRIC PROGRESS NOTE This late entry 03/04/2018 covers elements not covered in my initial note. SUBJECTIVE: I met with the patient in the evening. The patient slept 5-1/4 hours previous evening. She took her medication with much persistence per nursing staff. Yelling is a little better. REVIEW OF SYSTEMS: Ambulation impaired with walker. No CV, , pulmonary, eye system symptoms on review. MENTAL STATUS EXAM: Oriented to herself and situation. Speech coherent, can be rapid, loud at times. Abstraction fair, computation impaired, language function intact, attention span short. Mood and affect remain somewhat anxious, labile, but better than before. LABORATORY DATA: Reviewed. IMPRESSION: Unchanged from initial note. PLAN: No change from initial note. We have increased the Clozaril; discontinued the amantadine, and the oral Haldol and trazodone daytime. We will continue along with Depakote and Clozaril is currently 100 mg at bedtime. KALIN STARKS MD DR: TRACIE/karli JOB#: [id number] / [id number]
[2018-03-06 06:25] VITALS: BP 112/76
[2018-03-06] MEDS: INSULIN LISPRO 300 UNITS/3 ML INSULN.PEN. SQ SCH ×3 (08:00→17:15)
[2018-03-06] MEDS: busPIRone 10 MG TABLET. PO SCH ×3 (08:11→17:13)
[2018-03-06] MEDS: MAGNESIUM OXIDE 400 MG TABLET PO SCH ×2 (08:11→21:43)
[2018-03-06] MEDS: traZODone 50 MG TABLET. PO SCH ×3 (08:12→17:09)
[2018-03-06] MEDS: FUROSEMIDE 80 MG TABLET PO SCH ×2 (08:12→13:33)
[2018-03-06] MEDS: metFORMIN 500 MG TABLET PO SCH ×2 (08:12→17:09)
[2018-03-06] MEDS: DIVALPROEX 125 MG CAP.SPRINK PO SCH ×3 (08:12→21:43)
[2018-03-06] MEDS: PIOGLITAZONE 15 MG TABLET. PO SCH (08:12)
[2018-03-06] MEDS: POTASSIUM CHLORIDE 20 MEQ TABLET.ER. PO SCH ×2 (08:13→17:09)
[2018-03-06] MEDS: clonazePAM 1 MG TABLET PO SCH ×3 (08:21→21:43)
[2018-03-06] MEDS: NYSTATIN TOPICAL POWDER 15GM BOTTLE. TP SCH ×2 (08:21→21:00)
[2018-03-06] MEDS: metOLazone 5 MG TABLET PO SCH (08:21)
[2018-03-06] MEDS: IPRATRPIUM/ALBUTEROL 0.5/2.5MG 3 ML NEBU. NEB SCH (11:17)
[2018-03-06 16:45] VITALS: BP 120/73
[2018-03-06] MEDS: CHOLECALCIFEROL (VITAMIN D3) 50,000 UNIT CAPSULE PO SCH (17:10)
--- NOTE | 2018-03-06 20:53 | PDOC ---
Exam Note: Napoleon Note: Please also refer to the separate dictated note~for this date of service dictated separately.~Patient seen individually. Discussed the patient with Nursing staff reviewed the chart.~Reviewed interim history and current functioning. Reviewed vital signs,~Labs/ Radiology~and current medications noted below. Continue current treatment with the changes noted in the dictated addendum note Assessment: Vital Signs: Vital Signs Date Time Temp Pulse Resp B/P (MAP) Pulse Ox O2 Delivery O2 Flow Rate FiO2 03/06/18 16:45 97.6 76 19 120/73 (89) 92 Room Air I&O Intake and Output 03/06/18 07:00 Intake Total 360 ml Balance 360 ml Intake Oral 360 ml Labs: Laboratory Tests Test 03/06/18 07:18 03/06/18 11:55 03/06/18 17:02 03/06/18 19:29 Glucose (Fingerstick) 120 mg/dL (70-99) H 261 mg/dL (70-99) H 165 mg/dL (70-99) H 239 mg/dL (70-99) H Current Medications: Meds: Current Medications Lorazepam (Ativan) 2 mg 1X ONCE IM ; Start 02/10/18 at 04:00; Stop 02/10/18 at 04:01; Status DC Diphenhydramine HCl (Benadryl) 50 mg 1X ONCE IM ; Start 02/10/18 at 04:00; Stop 02/10/18 at 04:01; Status DC Ziprasidone (Geodon Im) 20 mg 1X ONCE IM ; Start 02/10/18 at 04:00; Stop at 04:01; Status DC Multivitamins/ Minerals 10 ml/ Folic Acid 1 mg/ Thiamine HCl 100 mg/Lactated Ringer's 1,011.1 ml @ 1,000 mls/ hr 1X ONCE IV ; Start 02/10/18 at 03:45; Stop 02/10/18 at 04:45; Status DC Magnesium Hydroxide (Milk Of Magnesia) 2,400 mg 1X ONCE PO ; Start 02/10/18 at 05:30; Stop 02/10/18 at 05:32; Status DC Potassium Chloride (KCl Oral Soln) 40 meq 1X ONCE PO ; Start 02/10/18 at 05:30 ; Stop 02/10/18 at 05:32; Status DC Acetaminophen (Tylenol) 650 mg PRN Q6HRS PRN PO PAIN / TEMP Last administered on 02/23/18at 12:43; Start 02/10/18 at 06:15 Multi-Ingredient Ointment (Analgesic [place]) 1 guanaco PRN QID PRN TP MUSCLE PAIN; Start 02/10/18 at 06:15 Al Hydroxide/Mg Hydroxide (Mylanta Plus Xs) 15 ml PRN AFTMEALHC PRN PO DYSPEPSIA; Start 02/10/18 at 06:15 Magnesium Hydroxide (Milk Of Magnesia) 2,400 mg PRN QHS PRN PO CONSTIPATION Last administered on 03/01/18 18:06; Start 02/10/18 at 06:15 Influenza Virus Vaccine (Afluria Trivalent [id number] Syringe) 0.5 ml ONCE ONCE VAX IM Last administered on 02/10/18at 14:21; Start 02/10/18 at 09:00; Stop at 09:01; Status DC Vitamin D (Vitamin D3) 50,000 unit QTH PO Last administered on 03/06/18at 17:10 ; Start 02/13/18 at 16:00 Albuterol/ Ipratropium (Duoneb) 3 ml DAILY NEB Last administered on 03/06/18 11:17; Start 02/10/18 at 09:00 Lactobacillus Rhamnosus (Culturelle) 1 cap BID PO Last administered on at 09:03; Start 02/10/18 at 09:00; Stop 02/22/18 at 18:00; Status DC Potassium Chloride (Klor-Con) 40 meq BIDWMEALS PO Last administered on at 17:09; Start 02/10/18 at 08:00 Amantadine HCl (Symmetrel) 100 mg BID PO Last administered on 02/26/18at 08:21; Start 02/10/18 at 09:00; Stop 02/26/18 at 11:24; Status DC Buspirone HCl (Buspar) 10 mg 1300,1700 PO Last administered on 03/06/18at 17:13 ; Start 02/10/18 at 13:00 Buspirone HCl (Buspar) 20 mg DAILY PO Last administered on 03/06/18at 08:11; Start 02/10/18 at 09:00 Clonazepam (KlonoPIN) 1 mg TID PO Last administered on 03/06/18 13:33; Start 02/10/18 at 09:00 Diltiazem HCl (Cardizem 24hr Cd) 120 mg DAILY PO Last administered on 08:13; Start 02/10/18 at 09:00 Furosemide (Lasix) 80 mg BID92 PO Last administered on 03/06/18 13:33; Start 02/10/18 at 09:00 Haloperidol (Haldol) 7.5 mg DAILY PO Last administered on 02/19/18at 09:05; Start 02/10/18 at 09:00; Stop 02/19/18 at 18:16; Status DC Non-Formulary Medication (Haloperidol Decanoate (Haldol Decanoate 100)) 450 mg Q4WK IM ; Start 02/10/18 at 09:00; Stop 02/10/18 at 16:12; Status DC Non-Formulary Medication (Insulin Aspart (Novolog Flexpen)) see protocol TIDWMEALS SQ ; Start 02/10/18 at 08:00; Status UNV Magnesium Oxide (Magnesium Oxide) 400 mg BID PO Last administered on 08:11; Start 02/10/18 at 09:00 Metformin HCl (Glucophage) 500 mg BIDWMEALS PO Last administered on 03/06/18 17:09; Start 02/10/18 at 08:00 Metolazone (Zaroxolyn) 5 mg DAILY PO Last administered on 03/06/18 08:21; Start 02/10/18 at 09:00 Mirtazapine (Remeron) 15 mg QHS PO Last administered on 03/05/18 19:18; Start 02/10/18 at 21:00 Pioglitazone HCl (Actos) 15 mg DAILY PO Last administered on 03/06/18 08:12; Start 02/10/18 at 09:00 Trazodone HCl (Desyrel) 25 mg TID@0900,1300,1700 PO Last administered on 17:09; Start 02/10/18 at 09:00 Valproic Acid (Depakene) 750 mg TID PO Last administered on 02/17/18at 21:01; Start 02/10/18 at 09:00; Stop 02/18/18 at 08:06; Status DC Insulin Human Lispro (HumaLOG) 0-9 UNITS TIDWMEALS SQ Last administered on 04/13at 17:15; Start 02/10/18 at 08:00 Dextrose 12.5 gm PRN Q15MIN PRN IV SEE COMMENTS; Start 02/10/18 at 06:30 Olanzapine (ZyPREXA ZYDIS) 5 mg PRN Q2HR PRN PO PSYCHOSIS Last administered on 03/02/18at 12:27; Start 02/10/18 at 06:45 Haloperidol Decanoate (Haldol Decanoate Im Extended Release) 450 mg Q4WK IM ; Start 03/10/18 at 09:00 Trazodone HCl (Desyrel) 25 mg STK-MED ONCE .ROUTE ; Start 02/10/18 at 09:00; Stop 02/11/18 at 10:03; Status DC Trazodone HCl (Desyrel) 25 mg STK-MED ONCE .ROUTE ; Start 02/10/18 at 09:00; Stop 02/11/18 at 10:03; Status DC Trazodone HCl (Desyrel) 25 mg STK-MED ONCE .ROUTE ; Start 02/10/18 at 09:00; Stop 02/11/18 at 10:03; Status DC Trazodone HCl (Desyrel) 25 mg STK-MED ONCE .ROUTE ; Start 02/11/18 at 09:00; Stop 02/11/18 at 10:04; Status DC Clozapine (Clozaril) 25 mg HS PO Last administered on 02/16/18at 21:13; Start at 21:00; Stop 02/17/18 at 17:40; Status DC Nystatin (Nystop) 1 guanaco BID TP Last administered on 03/06/18at 08:21; Start at 09:00 Trazodone HCl (Desyrel) 100 mg PRN QHS PRN PO INSOMNIA, MAY REPEAT X1; Start at 17:00; Stop 02/16/18 at 22:42; Status DC Trazodone HCl (Desyrel) 100 mg QHS PO Last administered on 03/05/18at 19:17; Start 02/16/18 at 23:00 Trazodone HCl (Desyrel) 100 mg PRN QHS PRN PO insomnia Last administered on at 19:46; Start 02/16/18 at 22:45 Clozapine (Clozaril) 50 mg HS PO Last administered on 02/23/18at 19:21; Start at 21:00; Stop 02/24/18 at 16:13; Status DC Divalproex Sodium (Depakote Sprinkles) 750 mg TID PO Last administered on 03/06at 13:34; Start 02/18/18 at 09:00 Haloperidol (Haldol) 5 mg DAILY PO Last administered on 03/03/18at 09:32; Start 02/20/18 at 09:00; Stop 03/03/18 at 16:23; Status DC Clozapine (Clozaril) 75 mg HS PO Last administered on 03/02/18at 19:49; Start 02/24/18 at 21:00; Stop 03/03/18 at 16:23; Status DC Clozapine (Clozaril) 100 mg HS PO ; Start 03/03/18 at 16:30; Stop 03/03/18 at 17 :06; Status DC Clozapine (Clozaril) 100 mg HS PO Last administered on 03/05/18at 19:17; Start 03/03/18 at 21:00 Active Scripts Active Reported Duoneb 0.5-3(2.5) Mg/3 Ml (Albuterol/Ipratropium) 3 Ml Ampul.neb 3 Ml NEB DAILY Zyprexa Zydis (Olanzapine) 5 Mg Tab.rapdis 5 Mg PO PRN Q2HR PRN Buspirone Hcl 10 Mg Tablet 10 Mg PO BID@1300,1700 Valproic Acid (Valproate Sodium) 250 Mg/5 Ml Solution 750 Mg PO TID Novolog Flexpen (Insulin Aspart) 100 Unit/1 Ml Insuln.pen 0-9 Unit SQ TIDWMEALS <70 follow hypoglycemic protocol 70-150 0units if eating/ 0 if not eating 151-200 4 units if eating/ 0 units if not eating 201-250 5 units if eating/ 3 units if not eating 251-300 7 units if eating/ 4 units if not eating 301-350 9 units if eating/ 5 units if not eating > 351 Call Physician for futher orders Trazodone Hcl 100 Mg Tablet 200 Mg PO PRN QHS PRN Trazodone Hcl 50 Mg Tablet 25 Mg PO TID@0900,1300,1700 Culturelle (Lactobacillus Rhamnosus Gg) 1 Each Cap.sprink 1 Each PO BID Haloperidol 5 Mg Tablet 7.5 Mg PO DAILY Tylenol (Acetaminophen) 325 Mg Tablet 650 Mg PO PRN Q6HRS PRN Buspirone Hcl 10 Mg Tablet 20 Mg PO DAILY Theophylline Anhydrous 200 Mg Tab.er.12h 200 Mg PO BID Metolazone 5 Mg Tablet 5 Mg PO DAILY Metformin Hcl 500 Mg Tablet 500 Mg PO BIDWMEALS Cardizem Tablet (Diltiazem Hcl) 120 Mg Tablet 120 Mg PO DAILY Amantadine (Amantadine Hcl) 100 Mg Tablet 100 Mg PO BID Actos (Pioglitazone Hcl) 15 Mg Tablet 15 Mg PO DAILY Mirtazapine 15 Mg Tablet 15 Mg PO QHS Haldol Decanoate 100 (Haloperidol Decanoate) 100 Mg/1 Ml Ampul 450 Mg IM Q4WK Klor-Con M20 (Potassium Chloride) 20 Meq Tab.er.prt 40 Meq PO BIDWMEALS Analgesic [place] (Methyl Salicylate/Menthol) 28 Gm Oint...g. 1 [place]an[place] TP PRN QID PRN Magnesium Oxide 400 Mg Tablet 400 Mg PO BID Milk Of Magnesia (Magnesium Hydroxide) 2,400 Mg/10 Ml Oral.susp 2,400 Mg PO PRN QHS PRN Maalox Advanced Suspension (Mag Hydrox/Aluminum Hyd/Simeth) 355 Ml Oral.susp 15 Ml PO PRN AFTMEALHC PRN D3-50 (Cholecalciferol (Vitamin D3)) 50,000 Unit Capsule 50,000 Unit PO QTH Clonazepam 1 Mg Tablet 1 Mg PO TID Furosemide 40 Mg Tablet 80 Mg PO [id number] Hold for SBP less than 100. After held dose, reassess in 2 hours. If SBP is above threshold, administer dose as ordered. If SBP is below threshold, contact provider for additional instructions. I have reviewed the current psychotropics carefully including drug interactions. Risk benefit ratio favors no change other than as noted in my dictated progress note. Diagnosis: Problems: (1) Depression (2) Schizoaffective disorder (3) Anxiety disorder (4) Impulse control disorder (5) Schizoaffective disorder, chronic condition with acute exacerbation RAUDEL,MAN M MD Mar 06, 2018 20:53
[2018-03-06] MEDS: cloZAPine 100 MG TABLET PO SCH (21:42)
[2018-03-06] MEDS: traZODone 100 MG TABLET. PO SCH (21:43)
[2018-03-06] MEDS: MIRTAZAPINE 15 MG TABLET PO SCH (21:43)
[2018-03-07 06:17] VITALS: BP 135/84
[2018-03-07] MEDS: INSULIN LISPRO 300 UNITS/3 ML INSULN.PEN. SQ SCH ×3 (08:00→18:29)
[2018-03-07] MEDS: clonazePAM 1 MG TABLET PO SCH ×3 (08:42→21:03)
[2018-03-07] MEDS: PIOGLITAZONE 15 MG TABLET. PO SCH (08:42)
[2018-03-07] MEDS: POTASSIUM CHLORIDE 20 MEQ TABLET.ER. PO SCH ×2 (08:42→17:13)
[2018-03-07] MEDS: FUROSEMIDE 80 MG TABLET PO SCH ×2 (08:43→13:14)
[2018-03-07] MEDS: DIVALPROEX 125 MG CAP.SPRINK PO SCH ×3 (08:43→21:03)
[2018-03-07] MEDS: metOLazone 5 MG TABLET PO SCH (08:43)
[2018-03-07] MEDS: busPIRone 10 MG TABLET. PO SCH ×3 (08:43→17:12)
[2018-03-07] MEDS: MAGNESIUM OXIDE 400 MG TABLET PO SCH ×2 (08:43→21:03)
[2018-03-07] MEDS: NYSTATIN TOPICAL POWDER 15GM BOTTLE. TP SCH ×2 (08:44→21:02)
[2018-03-07] MEDS: traZODone 50 MG TABLET. PO SCH ×3 (08:45→17:12)
[2018-03-07] MEDS: metFORMIN 500 MG TABLET PO SCH ×2 (08:45→17:13)
[2018-03-07] MEDS: IPRATRPIUM/ALBUTEROL 0.5/2.5MG 3 ML NEBU. NEB SCH (10:38)
[2018-03-07 15:54] VITALS: BP 124/72
--- NOTE | 2018-03-07 20:57 | PDOC ---
Exam Note: Napoleon Note: Please also refer to the separate dictated note~for this date of service dictated separately.~Patient seen individually. Discussed the patient with Nursing staff reviewed the chart.~Reviewed interim history and current functioning. Reviewed vital signs,~Labs/ Radiology~and current medications noted below. Continue current treatment with the changes noted in the dictated addendum note Assessment: Vital Signs: Vital Signs Date Time Temp Pulse Resp B/P (MAP) Pulse Ox O2 Delivery O2 Flow Rate FiO2 03/07/18 15:54 97.9 64 16 124/72 (89) 91 Room Air I&O Intake and Output 03/07/18 07:00 Intake Total 720 ml Balance 720 ml Intake Oral 720 ml # Bowel Movements 1 Labs: Laboratory Tests Test 03/07/18 07:35 03/07/18 11:36 03/07/18 17:01 03/07/18 19:18 Glucose (Fingerstick) 184 mg/dL (70-99) H 191 mg/dL (70-99) H 160 mg/dL (70-99) H 167 mg/dL (70-99) H Current Medications: Meds: Current Medications Lorazepam (Ativan) 2 mg 1X ONCE IM ; Start 02/10/18 at 04:00; Stop 02/10/18 at 04:01; Status DC Diphenhydramine HCl (Benadryl) 50 mg 1X ONCE IM ; Start 02/10/18 at 04:00; Stop 02/10/18 at 04:01; Status DC Ziprasidone (Geodon Im) 20 mg 1X ONCE IM ; Start 02/10/18 at 04:00; Stop at 04:01; Status DC Multivitamins/ Minerals 10 ml/ Folic Acid 1 mg/ Thiamine HCl 100 mg/Lactated Ringer's 1,011.1 ml @ 1,000 mls/ hr 1X ONCE IV ; Start 02/10/18 at 03:45; Stop 02/10/18 at 04:45; Status DC Magnesium Hydroxide (Milk Of Magnesia) 2,400 mg 1X ONCE PO ; Start 02/10/18 at 05:30; Stop 02/10/18 at 05:32; Status DC Potassium Chloride (KCl Oral Soln) 40 meq 1X ONCE PO ; Start 02/10/18 at 05:30 ; Stop 02/10/18 at 05:32; Status DC Acetaminophen (Tylenol) 650 mg PRN Q6HRS PRN PO PAIN / TEMP Last administered on 02/23/18at 12:43; Start 02/10/18 at 06:15 Multi-Ingredient Ointment (Analgesic [place]) 1 guanaco PRN QID PRN TP MUSCLE PAIN; Start 02/10/18 at 06:15 Al Hydroxide/Mg Hydroxide (Mylanta Plus Xs) 15 ml PRN AFTMEALHC PRN PO DYSPEPSIA; Start 02/10/18 at 06:15 Magnesium Hydroxide (Milk Of Magnesia) 2,400 mg PRN QHS PRN PO CONSTIPATION Last administered on 03/01/18 18:06; Start 02/10/18 at 06:15 Influenza Virus Vaccine (Afluria Trivalent [id number] Syringe) 0.5 ml ONCE ONCE VAX IM Last administered on 02/10/18at 14:21; Start 02/10/18 at 09:00; Stop at 09:01; Status DC Vitamin D (Vitamin D3) 50,000 unit QTH PO Last administered on 03/06/18at 17:10 ; Start 02/13/18 at 16:00 Albuterol/ Ipratropium (Duoneb) 3 ml DAILY NEB Last administered on 03/07/18at 10:38; Start 02/10/18 at 09:00 Lactobacillus Rhamnosus (Culturelle) 1 cap BID PO Last administered on at 09:03; Start 02/10/18 at 09:00; Stop 02/22/18 at 18:00; Status DC Potassium Chloride (Klor-Con) 40 meq BIDWMEALS PO Last administered on at 17:13; Start 02/10/18 at 08:00 Amantadine HCl (Symmetrel) 100 mg BID PO Last administered on 02/26/18 08:21; Start 02/10/18 at 09:00; Stop 02/26/18 at 11:24; Status DC Buspirone HCl (Buspar) 10 mg 1300,1700 PO Last administered on 03/07/18 17:12 ; Start 02/10/18 at 13:00 Buspirone HCl (Buspar) 20 mg DAILY PO Last administered on 03/07/18at 08:43; Start 02/10/18 at 09:00 Clonazepam (KlonoPIN) 1 mg TID PO Last administered on 03/07/18 13:17; Start 02/10/18 at 09:00 Diltiazem HCl (Cardizem 24hr Cd) 120 mg DAILY PO Last administered on 08:43; Start 02/10/18 at 09:00 Furosemide (Lasix) 80 mg BID92 PO Last administered on 03/07/18 13:14; Start 02/10/18 at 09:00 Haloperidol (Haldol) 7.5 mg DAILY PO Last administered on 02/19/18at 09:05; Start 02/10/18 at 09:00; Stop 02/19/18 at 18:16; Status DC Non-Formulary Medication (Haloperidol Decanoate (Haldol Decanoate 100)) 450 mg Q4WK IM ; Start 02/10/18 at 09:00; Stop 02/10/18 at 16:12; Status DC Non-Formulary Medication (Insulin Aspart (Novolog Flexpen)) see protocol TIDWMEALS SQ ; Start 02/10/18 at 08:00; Status UNV Magnesium Oxide (Magnesium Oxide) 400 mg BID PO Last administered on 08:43; Start 02/10/18 at 09:00 Metformin HCl (Glucophage) 500 mg BIDWMEALS PO Last administered on 03/07/18 17:13; Start 02/10/18 at 08:00 Metolazone (Zaroxolyn) 5 mg DAILY PO Last administered on 03/07/18at 08:43; Start 02/10/18 at 09:00 Mirtazapine (Remeron) 15 mg QHS PO Last administered on 03/06/18at 21:43; Start 02/10/18 at 21:00 Pioglitazone HCl (Actos) 15 mg DAILY PO Last administered on 03/07/18 08:42; Start 02/10/18 at 09:00 Trazodone HCl (Desyrel) 25 mg TID@0900,1300,1700 PO Last administered on 17:12; Start 02/10/18 at 09:00 Valproic Acid (Depakene) 750 mg TID PO Last administered on 02/17/18at 21:01; Start 02/10/18 at 09:00; Stop 02/18/18 at 08:06; Status DC Insulin Human Lispro (HumaLOG) 0-9 UNITS TIDWMEALS SQ Last administered on 05/13at 18:29; Start 02/10/18 at 08:00 Dextrose 12.5 gm PRN Q15MIN PRN IV SEE COMMENTS; Start 02/10/18 at 06:30 Olanzapine (ZyPREXA ZYDIS) 5 mg PRN Q2HR PRN PO PSYCHOSIS Last administered on 03/02/18at 12:27; Start 02/10/18 at 06:45 Haloperidol Decanoate (Haldol Decanoate Im Extended Release) 450 mg Q4WK IM ; Start 03/10/18 at 09:00 Trazodone HCl (Desyrel) 25 mg STK-MED ONCE .ROUTE ; Start 02/10/18 at 09:00; Stop 02/11/18 at 10:03; Status DC Trazodone HCl (Desyrel) 25 mg STK-MED ONCE .ROUTE ; Start 02/10/18 at 09:00; Stop 02/11/18 at 10:03; Status DC Trazodone HCl (Desyrel) 25 mg STK-MED ONCE .ROUTE ; Start 02/10/18 at 09:00; Stop 02/11/18 at 10:03; Status DC Trazodone HCl (Desyrel) 25 mg STK-MED ONCE .ROUTE ; Start 02/11/18 at 09:00; Stop 02/11/18 at 10:04; Status DC Clozapine (Clozaril) 25 mg HS PO Last administered on 02/16/18at 21:13; Start at 21:00; Stop 02/17/18 at 17:40; Status DC Nystatin (Nystop) 1 guanaco BID TP Last administered on 03/07/18at 08:44; Start at 09:00 Trazodone HCl (Desyrel) 100 mg PRN QHS PRN PO INSOMNIA, MAY REPEAT X1; Start at 17:00; Stop 02/16/18 at 22:42; Status DC Trazodone HCl (Desyrel) 100 mg QHS PO Last administered on 03/06/18at 21:43; Start 02/16/18 at 23:00 Trazodone HCl (Desyrel) 100 mg PRN QHS PRN PO insomnia Last administered on at 19:46; Start 02/16/18 at 22:45 Clozapine (Clozaril) 50 mg HS PO Last administered on 02/23/18at 19:21; Start at 21:00; Stop 02/24/18 at 16:13; Status DC Divalproex Sodium (Depakote Sprinkles) 750 mg TID PO Last administered on 03/07at 13:13; Start 02/18/18 at 09:00 Haloperidol (Haldol) 5 mg DAILY PO Last administered on 03/03/18at 09:32; Start 02/20/18 at 09:00; Stop 03/03/18 at 16:23; Status DC Clozapine (Clozaril) 75 mg HS PO Last administered on 03/02/18at 19:49; Start 02/24/18 at 21:00; Stop 03/03/18 at 16:23; Status DC Clozapine (Clozaril) 100 mg HS PO ; Start 03/03/18 at 16:30; Stop 03/03/18 at 17 :06; Status DC Clozapine (Clozaril) 100 mg HS PO Last administered on 03/06/18at 21:42; Start 03/03/18 at 21:00 Active Scripts Active Reported Duoneb 0.5-3(2.5) Mg/3 Ml (Albuterol/Ipratropium) 3 Ml Ampul.neb 3 Ml NEB DAILY Zyprexa Zydis (Olanzapine) 5 Mg Tab.rapdis 5 Mg PO PRN Q2HR PRN Buspirone Hcl 10 Mg Tablet 10 Mg PO BID@1300,1700 Valproic Acid (Valproate Sodium) 250 Mg/5 Ml Solution 750 Mg PO TID Novolog Flexpen (Insulin Aspart) 100 Unit/1 Ml Insuln.pen 0-9 Unit SQ TIDWMEALS <70 follow hypoglycemic protocol 70-150 0units if eating/ 0 if not eating 151-200 4 units if eating/ 0 units if not eating 201-250 5 units if eating/ 3 units if not eating 251-300 7 units if eating/ 4 units if not eating 301-350 9 units if eating/ 5 units if not eating > 351 Call Physician for futher orders Trazodone Hcl 100 Mg Tablet 200 Mg PO PRN QHS PRN Trazodone Hcl 50 Mg Tablet 25 Mg PO TID@0900,1300,1700 Culturelle (Lactobacillus Rhamnosus Gg) 1 Each Cap.sprink 1 Each PO BID Haloperidol 5 Mg Tablet 7.5 Mg PO DAILY Tylenol (Acetaminophen) 325 Mg Tablet 650 Mg PO PRN Q6HRS PRN Buspirone Hcl 10 Mg Tablet 20 Mg PO DAILY Theophylline Anhydrous 200 Mg Tab.er.12h 200 Mg PO BID Metolazone 5 Mg Tablet 5 Mg PO DAILY Metformin Hcl 500 Mg Tablet 500 Mg PO BIDWMEALS Cardizem Tablet (Diltiazem Hcl) 120 Mg Tablet 120 Mg PO DAILY Amantadine (Amantadine Hcl) 100 Mg Tablet 100 Mg PO BID Actos (Pioglitazone Hcl) 15 Mg Tablet 15 Mg PO DAILY Mirtazapine 15 Mg Tablet 15 Mg PO QHS Haldol Decanoate 100 (Haloperidol Decanoate) 100 Mg/1 Ml Ampul 450 Mg IM Q4WK Klor-Con M20 (Potassium Chloride) 20 Meq Tab.er.prt 40 Meq PO BIDWMEALS Analgesic [place] (Methyl Salicylate/Menthol) 28 Gm Oint...g. 1 [place] TP PRN QID PRN Magnesium Oxide 400 Mg Tablet 400 Mg PO BID Milk Of Magnesia (Magnesium Hydroxide) 2,400 Mg/10 Ml Oral.susp 2,400 Mg PO PRN QHS PRN Maalox Advanced Suspension (Mag Hydrox/Aluminum Hyd/Simeth) 355 Ml Oral.susp 15 Ml PO PRN AFTMEALHC PRN D3-50 (Cholecalciferol (Vitamin D3)) 50,000 Unit Capsule 50,000 Unit PO QTH Clonazepam 1 Mg Tablet 1 Mg PO TID Furosemide 40 Mg Tablet 80 Mg PO [id number] Hold for SBP less than 100. After held dose, reassess in 2 hours. If SBP is above threshold, administer dose as ordered. If SBP is below threshold, contact provider for additional instructions. I have reviewed the current psychotropics carefully including drug interactions. Risk benefit ratio favors no change other than as noted in my dictated progress note. Diagnosis: Problems: (1) Depression (2) Schizoaffective disorder (3) Anxiety disorder (4) Impulse control disorder (5) Schizoaffective disorder, chronic condition with acute exacerbation KALIN STARKS MD Mar 07, 2018 20:56
[2018-03-07] MEDS: cloZAPine 100 MG TABLET PO SCH (21:02)
[2018-03-07] MEDS: MIRTAZAPINE 15 MG TABLET PO SCH (21:03)
[2018-03-07] MEDS: traZODone 100 MG TABLET. PO SCH (21:03)
--- NOTE | 2018-03-07 21:06 | PN ---
DATE: 03/05/2018 This is a late entry 03/05/2018, covers elements not covered in my initial note. SUBJECTIVE: I met with the patient in the evening. The patient slept 5-1/4 hours previous night. She took her a.m. medications 40 minutes later. She is delusional, saying that she is 23 years old, said she was . She took two of her p.m. medications by syringe per nursing report and later took the rest in a paper cup. REVIEW OF SYSTEMS: Ambulation impaired with walker. No CV, , pulmonary, eye, ENT system symptoms on review. MENTAL STATUS EXAM: Oriented to herself and situation. Speech coherent, can be rapid, loud at times. Abstraction fair, computation unable to do serial 7's. Attention span short. No suicidal or homicidal ideation. LABORATORY DATA: Reviewed. IMPRESSION: Unchanged from initial note. PLAN: No change from initial note and we will gradually increase the Clozaril. Valproic acid level is therapeutic. MAN Mary STARKS MD DR: TRACIE/karli JOB#: [id number] / [id number]
--- NOTE | 2018-03-07 23:51 | PN ---
DATE: 03/06/2018 This is a late entry, 03/06/2018, covers the elements not covered in my initial note. SUBJECTIVE: I met with the patient in the evening, staffed at a treatment team meeting with the entire team in the morning. Reviewed her history, diagnosis, changes in her psychotropics, discharge plans. The nursing staff set up a Behavioral program with the patient, which helps with compliance with her medications including braiding her hair amongst other things. She is yelling, less labile in her mood as we have increased the Clozaril. REVIEW OF SYSTEMS: Ambulation impaired with walker. No CV, , pulmonary, eye, ENT system symptoms on review. Reliability varies. MENTAL STATUS EXAM: Oriented to herself and situation. Speech coherent, less pressured. Abstraction fair, computation impaired, language function intact, attention span short. Mood and affect, lability is improved. LABORATORY DATA: Reviewed. IMPRESSION: Schizoaffective disorder, bipolar type, mixed with psychotic features. Rest unchanged. PLAN: No change from initial note. Check CBC, absolute neutrophil count on Saturday and increase Clozaril further. Continue Depakote. MAN Mary STARKS MD DR: TRACIE/karli JOB#: [id number] / [id number]
[2018-03-08 06:01] VITALS: BP 109/74
[2018-03-08] MEDS: INSULIN LISPRO 300 UNITS/3 ML INSULN.PEN. SQ SCH ×3 (08:00→17:20)
[2018-03-08] MEDS: metFORMIN 500 MG TABLET PO SCH ×2 (08:00→17:00)
[2018-03-08] MEDS: POTASSIUM CHLORIDE 20 MEQ TABLET.ER. PO SCH ×2 (08:00→17:14)
[2018-03-08] MEDS: traZODone 50 MG TABLET. PO SCH ×3 (09:00→17:00)
[2018-03-08] MEDS: PIOGLITAZONE 15 MG TABLET. PO SCH (09:00)
[2018-03-08] MEDS: FUROSEMIDE 80 MG TABLET PO SCH ×2 (09:00→13:44)
[2018-03-08] MEDS: NYSTATIN TOPICAL POWDER 15GM BOTTLE. TP SCH ×2 (09:00→21:00)
[2018-03-08] MEDS: MAGNESIUM OXIDE 400 MG TABLET PO SCH ×2 (09:00→23:00)
[2018-03-08] MEDS: DIVALPROEX 125 MG CAP.SPRINK PO SCH ×3 (09:00→23:01)
[2018-03-08] MEDS: clonazePAM 1 MG TABLET PO SCH ×3 (09:00→23:00)
[2018-03-08] MEDS: busPIRone 10 MG TABLET. PO SCH ×3 (09:00→17:00)
[2018-03-08] MEDS: metOLazone 5 MG TABLET PO SCH (09:00)
[2018-03-08 11:06] LABS: BASO # 0.1 x10^3/uL (0.0-0.2); BASO % 1 % (0-3); EOS % 1 % (0-3); HEMATOCRIT 41.5 % (36.0-47.0); HEMOGLOBIN 13.2 g/dL (12.0-15.5); LYMPH # 1.6 x10^3/uL (1.0-4.8); LYMPH % 28 % (24-48); MEAN CORPUSCULAR HEMOGLOBIN 28 pg (25-35); MEAN CORPUSCULAR HGB CONC 32 g/dL (31-37); MEAN CORPUSCULAR VOLUME 89 fL (79-100); MONO # 0.5 x10^3/uL (0.0-1.1); MONO % 8 % (0-9); NEUT # 3.7 x10^3uL (1.8-7.7); NEUT % 63 % (31-73); PLATELET COUNT 185 x10^3/uL (140-400); RED BLOOD COUNT 4.68 x10^6/uL (3.50-5.40); RED CELL DISTRIBUTION WIDTH 16.4 % (11.5-14.5); WHITE BLOOD COUNT 5.9 x10^3/uL (4.0-11.0)
[2018-03-08 11:23] LABS: ALBUMIN 3.4 g/dL (3.4-5.0); ALBUMIN/GLOBULIN RATIO 0.6 (1.0-1.7); CALCIUM 9.8 mg/dL (8.5-10.1); CREATININE 1.7 mg/dL (0.6-1.0); GFR 36.7; POTASSIUM 4.3 mmol/L (3.5-5.1); TOTAL BILIRUBIN 0.2 mg/dL (0.2-1.0); TOTAL PROTEIN 8.9 g/dL (6.4-8.2)
[2018-03-08] MEDS: IPRATRPIUM/ALBUTEROL 0.5/2.5MG 3 ML NEBU. NEB SCH (11:49)
[2018-03-08] MEDS ORDERED: IV NORMAL SALINE 500ML 500 ML IV ONE ×2 (13:00→15:15)
[2018-03-08 16:55] VITALS: BP 120/73
--- NOTE | 2018-03-08 20:32 | PN ---
DATE: 03/07/2018 PSYCHIATRIC PROGRESS NOTE This is a late entry 03/07/2018 covers elements not covered in my initial note. SUBJECTIVE: I met with the patient in the evening. The patient urinated in her chair. At times, she does this purposely, slept 4 hours previous night, compliant with medications when offered tweaks if she would take her medications, resistive with cares. REVIEW OF SYSTEMS: Ambulation impaired with walker. No CV, , pulmonary, eye, ENT system symptoms on review. Reliability varies. MENTAL STATUS EXAM: Oriented to herself and situation. Speech moderate latency, coherent, often responses monosyllabic. She seems somewhat sedated at suppertime, I fed her, all the staff have her supper including 1/4 hamburger, most of her mashed potatoes and quarter of her vegetables. She seemed to be dropping off to sleep during this period. No active suicidal or homicidal ideation. Seems less psychotic. LABORATORY DATA: Reviewed. IMPRESSION: Schizoaffective disorder, bipolar type, mixed with psychotic features. Rest unchanged. PLAN: Continue current psychotropics. Check CBC, absolute neutrophil count 03/10/2018 and then increase the Clozaril further. MAN Mary STARKS MD DR: TRACIE/karli JOB#: [id number] / [id number]
[2018-03-08 22:29] LABS: CALCIUM 9.5 mg/dL (8.5-10.1); CREATININE 1.3 mg/dL (0.6-1.0); GFR 50.1; POTASSIUM 3.7 mmol/L (3.5-5.1)
--- NOTE | 2018-03-08 22:55 | PDOC ---
Exam Note: Napoleon Note: Please also refer to the separate dictated note~for this date of service dictated separately.~Patient seen individually. Discussed the patient with Nursing staff reviewed the chart.~Reviewed interim history and current functioning. Reviewed vital signs,~Labs/ Radiology~and current medications noted below. Continue current treatment with the changes noted in the dictated addendum note Assessment: Vital Signs: Vital Signs Date Time Temp Pulse Resp B/P (MAP) Pulse Ox O2 Delivery O2 Flow Rate FiO2 03/08/18 16:55 97.3 73 18 120/73 (89) 92 03/08/18 11:49 Room Air I&O Intake and Output 03/08/18 07:00 Intake Total 840 ml Balance 840 ml Intake Oral 840 ml Labs: Laboratory Tests Test 03/08/18 00:16 03/08/18 07:17 03/08/18 10:50 03/08/18 12:04 Glucose (Fingerstick) 250 mg/dL (70-99) H 180 mg/dL (70-99) H 239 mg/dL (70-99) H White Blood Count 5.9 x10^3/uL (4.0-11.0) Red Blood Count 4.68 x10^6/uL (3.50-5.40) Hemoglobin 13.2 g/dL (12.0-15.5) Hematocrit 41.5 % (36.0-47.0) Mean Corpuscular Volume 89 fL (79-100) Mean Corpuscular Hemoglobin 28 pg (25-35) Mean Corpuscular Hemoglobin Concent 32 g/dL (31-37) Red Cell Distribution Width 16.4 % (11.5-14.5) H Platelet Count 185 x10^3/uL (140-400) Neutrophils (%) (Auto) 63 % (31-73) Lymphocytes (%) (Auto) 28 % (24-48) Monocytes (%) (Auto) 8 % (0-9) Eosinophils (%) (Auto) 1 % (0-3) Basophils (%) (Auto) 1 % (0-3) Neutrophils # (Auto) 3.7 x10^3uL (1.8-7.7) Lymphocytes # (Auto) 1.6 x10^3/uL (1.0-4.8) Monocytes # (Auto) 0.5 x10^3/uL (0.0-1.1) Eosinophils # (Auto) 0.0 x10^3/uL (0.0-0.7) Basophils # (Auto) 0.1 x10^3/uL (0.0-0.2) Sodium Level 137 mmol/L (136-145) Potassium Level 4.3 mmol/L (3.5-5.1) Chloride Level 93 mmol/L (98-107) L Carbon Dioxide Level 41 mmol/L (21-32) H Anion Gap 3 (6-14) L Blood Urea Nitrogen 53 mg/dL (7-20) H Creatinine 1.7 mg/dL (0.6-1.0) H Estimated GFR (Cockcroft-Gault) 36.7 BUN/Creatinine Ratio 31 (6-20) H Glucose Level 259 mg/dL (70-99) H Calcium Level 9.8 mg/dL (8.5-10.1) Total Bilirubin 0.2 mg/dL (0.2-1.0) Aspartate Amino Transferase (AST) 13 U/L (15-37) L Alanine Aminotransferase (ALT) 20 U/L (14-59) Alkaline Phosphatase 115 U/L (46-116) Total Protein 8.9 g/dL (6.4-8.2) H Albumin 3.4 g/dL (3.4-5.0) Albumin/Globulin Ratio 0.6 (1.0-1.7) L Test 03/08/18 16:13 03/08/18 19:54 03/08/18 22:15 Glucose (Fingerstick) 187 mg/dL (70-99) H 154 mg/dL (70-99) H Sodium Level 140 mmol/L (136-145) Potassium Level 3.7 mmol/L (3.5-5.1) Chloride Level 97 mmol/L (98-107) L Carbon Dioxide Level 40 mmol/L (21-32) H Anion Gap 3 (6-14) L Blood Urea Nitrogen 49 mg/dL (7-20) H Creatinine 1.3 mg/dL (0.6-1.0) H Estimated GFR (Cockcroft-Gault) 50.1 Glucose Level 140 mg/dL (70-99) H Calcium Level 9.5 mg/dL (8.5-10.1) Current Medications: Meds: Current Medications Lorazepam (Ativan) 2 mg 1X ONCE IM ; Start 02/10/18 at 04:00; Stop 02/10/18 at 04:01; Status DC Diphenhydramine HCl (Benadryl) 50 mg 1X ONCE IM ; Start 02/10/18 at 04:00; Stop 02/10/18 at 04:01; Status DC Ziprasidone (Geodon Im) 20 mg 1X ONCE IM ; Start 02/10/18 at 04:00; Stop at 04:01; Status DC Multivitamins/ Minerals 10 ml/ Folic Acid 1 mg/ Thiamine HCl 100 mg/Lactated Ringer's 1,011.1 ml @ 1,000 mls/ hr 1X ONCE IV ; Start 02/10/18 at 03:45; Stop 02/10/18 at 04:45; Status DC Magnesium Hydroxide (Milk Of Magnesia) 2,400 mg 1X ONCE PO ; Start 02/10/18 at 05:30; Stop 02/10/18 at 05:32; Status DC Potassium Chloride (KCl Oral Soln) 40 meq 1X ONCE PO ; Start 02/10/18 at 05:30 ; Stop 02/10/18 at 05:32; Status DC Acetaminophen (Tylenol) 650 mg PRN Q6HRS PRN PO PAIN / TEMP Last administered on 02/23/18at 12:43; Start 02/10/18 at 06:15 Multi-Ingredient Ointment (Analgesic [place]) 1 guanaco PRN QID PRN TP MUSCLE PAIN; Start 02/10/18 at 06:15 Al Hydroxide/Mg Hydroxide (Mylanta Plus Xs) 15 ml PRN AFTMEALHC PRN PO DYSPEPSIA; Start 02/10/18 at 06:15 Magnesium Hydroxide (Milk Of Magnesia) 2,400 mg PRN QHS PRN PO CONSTIPATION Last administered on 03/01/18at 18:06; Start 02/10/18 at 06:15 Influenza Virus Vaccine (Afluria Trivalent [id number] Syringe) 0.5 ml ONCE ONCE VAX IM Last administered on 02/10/18at 14:21; Start 02/10/18 at 09:00; Stop at 09:01; Status DC Vitamin D (Vitamin D3) 50,000 unit QTH PO Last administered on 03/06/18 17:10 ; Start 02/13/18 at 16:00 Albuterol/ Ipratropium (Duoneb) 3 ml DAILY NEB Last administered on 03/08/18at 11:49; Start 02/10/18 at 09:00 Lactobacillus Rhamnosus (Culturelle) 1 cap BID PO Last administered on at 09:03; Start 02/10/18 at 09:00; Stop 02/22/18 at 18:00; Status DC Potassium Chloride (Klor-Con) 40 meq BIDWMEALS PO Last administered on 17:13; Start 02/10/18 at 08:00 Amantadine HCl (Symmetrel) 100 mg BID PO Last administered on 02/26/18 08:21; Start 02/10/18 at 09:00; Stop 02/26/18 at 11:24; Status DC Buspirone HCl (Buspar) 10 mg 1300,1700 PO Last administered on 03/07/18 17:12 ; Start 02/10/18 at 13:00 Buspirone HCl (Buspar) 20 mg DAILY PO Last administered on 03/07/18at 08:43; Start 02/10/18 at 09:00 Clonazepam (KlonoPIN) 1 mg TID PO Last administered on 03/07/18 21:03; Start 02/10/18 at 09:00 Diltiazem HCl (Cardizem 24hr Cd) 120 mg DAILY PO Last administered on at 08:43; Start 02/10/18 at 09:00 Furosemide (Lasix) 80 mg [id number] PO Last administered on 03/07/18at 13:14; Start 02/10/18 at 09:00 Haloperidol (Haldol) 7.5 mg DAILY PO Last administered on 02/19/18at 09:05; Start 02/10/18 at 09:00; Stop 02/19/18 at 18:16; Status DC Non-Formulary Medication (Haloperidol Decanoate (Haldol Decanoate 100)) 450 mg Q4WK IM ; Start 02/10/18 at 09:00; Stop 02/10/18 at 16:12; Status DC Non-Formulary Medication (Insulin Aspart (Novolog Flexpen)) see protocol TIDWMEALS SQ ; Start 02/10/18 at 08:00; Status UNV Magnesium Oxide (Magnesium Oxide) 400 mg BID PO Last administered on at 09:00; Start 02/10/18 at 09:00 Metformin HCl (Glucophage) 500 mg BIDWMEALS PO Last administered on 03/07/18at 17:13; Start 02/10/18 at 08:00 Metolazone (Zaroxolyn) 5 mg DAILY PO Last administered on 03/07/18at 08:43; Start 02/10/18 at 09:00 Mirtazapine (Remeron) 15 mg QHS PO Last administered on 03/07/18at 21:03; Start 02/10/18 at 21:00 Pioglitazone HCl (Actos) 15 mg DAILY PO Last administered on 03/07/18at 08:42; Start 02/10/18 at 09:00 Trazodone HCl (Desyrel) 25 mg TID@0900,1300,1700 PO Last administered on at 17:12; Start 02/10/18 at 09:00 Valproic Acid (Depakene) 750 mg TID PO Last administered on 02/17/18at 21:01; Start 02/10/18 at 09:00; Stop 02/18/18 at 08:06; Status DC Insulin Human Lispro (HumaLOG) 0-9 UNITS TIDWMEALS SQ Last administered on at 17:20; Start 02/10/18 at 08:00 Dextrose 12.5 gm PRN Q15MIN PRN IV SEE COMMENTS; Start 02/10/18 at 06:30 Olanzapine (ZyPREXA ZYDIS) 5 mg PRN Q2HR PRN PO PSYCHOSIS Last administered on 03/02/18at 12:27; Start 02/10/18 at 06:45 Haloperidol Decanoate (Haldol Decanoate Im Extended Release) 450 mg Q4WK IM ; Start 03/10/18 at 09:00 Trazodone HCl (Desyrel) 25 mg STK-MED ONCE .ROUTE ; Start 02/10/18 at 09:00; Stop 02/11/18 at 10:03; Status DC Trazodone HCl (Desyrel) 25 mg STK-MED ONCE .ROUTE ; Start 02/10/18 at 09:00; Stop 02/11/18 at 10:03; Status DC Trazodone HCl (Desyrel) 25 mg STK-MED ONCE .ROUTE ; Start 02/10/18 at 09:00; Stop 02/11/18 at 10:03; Status DC Trazodone HCl (Desyrel) 25 mg STK-MED ONCE .ROUTE ; Start 02/11/18 at 09:00; Stop 02/11/18 at 10:04; Status DC Clozapine (Clozaril) 25 mg HS PO Last administered on 02/16/18at 21:13; Start at 21:00; Stop 02/17/18 at 17:40; Status DC Nystatin (Nystop) 1 guanaco BID TP Last administered on 03/08/18at 09:00; Start at 09:00 Trazodone HCl (Desyrel) 100 mg PRN QHS PRN PO INSOMNIA, MAY REPEAT X1; Start at 17:00; Stop 02/16/18 at 22:42; Status DC Trazodone HCl (Desyrel) 100 mg QHS PO Last administered on 03/07/18at 21:03; Start 02/16/18 at 23:00 Trazodone HCl (Desyrel) 100 mg PRN QHS PRN PO insomnia Last administered on at 19:46; Start 02/16/18 at 22:45 Clozapine (Clozaril) 50 mg HS PO Last administered on 02/23/18at 19:21; Start at 21:00; Stop 02/24/18 at 16:13; Status DC Divalproex Sodium (Depakote Sprinkles) 750 mg TID PO Last administered on 03/07at 21:03; Start 02/18/18 at 09:00 Haloperidol (Haldol) 5 mg DAILY PO Last administered on 03/03/18at 09:32; Start 02/20/18 at 09:00; Stop 03/03/18 at 16:23; Status DC Clozapine (Clozaril) 75 mg HS PO Last administered on 03/02/18at 19:49; Start 02/24/18 at 21:00; Stop 03/03/18 at 16:23; Status DC Clozapine (Clozaril) 100 mg HS PO ; Start 03/03/18 at 16:30; Stop 03/03/18 at 17 :06; Status DC Clozapine (Clozaril) 100 mg HS PO Last administered on 03/07/18at 21:02; Start 03/03/18 at 21:00 Sodium Chloride 500 ml @ 0 mls/hr 1X ONCE IV Last administered on 03/08/18at 13:00; Start 03/08/18 at 13:00; Stop 03/08/18 at 13:01; Status DC Sodium Chloride 500 ml @ 125 mls/hr 1X ONCE IV Last administered on at 14:30; Start 03/08/18 at 15:15; Stop 03/08/18 at 19:14; Status DC Active Scripts Active Reported Duoneb 0.5-3(2.5) Mg/3 Ml (Albuterol/Ipratropium) 3 Ml Ampul.neb 3 Ml NEB DAILY Zyprexa Zydis (Olanzapine) 5 Mg Tab.rapdis 5 Mg PO PRN Q2HR PRN Buspirone Hcl 10 Mg Tablet 10 Mg PO BID@1300,1700 Valproic Acid (Valproate Sodium) 250 Mg/5 Ml Solution 750 Mg PO TID Novolog Flexpen (Insulin Aspart) 100 Unit/1 Ml Insuln.pen 0-9 Unit SQ TIDWMEALS <70 follow hypoglycemic protocol 70-150 0units if eating/ 0 if not eating 151-200 4 units if eating/ 0 units if not eating 201-250 5 units if eating/ 3 units if not eating 251-300 7 units if eating/ 4 units if not eating 301-350 9 units if eating/ 5 units if not eating > 351 Call Physician for futher orders Trazodone Hcl 100 Mg Tablet 200 Mg PO PRN QHS PRN Trazodone Hcl 50 Mg Tablet 25 Mg PO TID@0900,1300,1700 Culturelle (Lactobacillus Rhamnosus Gg) 1 Each Cap.sprink 1 Each PO BID Haloperidol 5 Mg Tablet 7.5 Mg PO DAILY Tylenol (Acetaminophen) 325 Mg Tablet 650 Mg PO PRN Q6HRS PRN Buspirone Hcl 10 Mg Tablet 20 Mg PO DAILY Theophylline Anhydrous 200 Mg Tab.er.12h 200 Mg PO BID Metolazone 5 Mg Tablet 5 Mg PO DAILY Metformin Hcl 500 Mg Tablet 500 Mg PO BIDWMEALS Cardizem Tablet (Diltiazem Hcl) 120 Mg Tablet 120 Mg PO DAILY Amantadine (Amantadine Hcl) 100 Mg Tablet 100 Mg PO BID Actos (Pioglitazone Hcl) 15 Mg Tablet 15 Mg PO DAILY Mirtazapine 15 Mg Tablet 15 Mg PO QHS Haldol Decanoate 100 (Haloperidol Decanoate) 100 Mg/1 Ml Ampul 450 Mg IM Q4WK Klor-Con M20 (Potassium Chloride) 20 Meq Tab.er.prt 40 Meq PO BIDWMEALS Analgesic [place] (Methyl Salicylate/Menthol) 28 Gm Oint...g. 1 Guanaco TP PRN QID PRN Magnesium Oxide 400 Mg Tablet 400 Mg PO BID Milk Of Magnesia (Magnesium Hydroxide) 2,400 Mg/10 Ml Oral.susp 2,400 Mg PO PRN QHS PRN Maalox Advanced Suspension (Mag Hydrox/Aluminum Hyd/Simeth) 355 Ml Oral.susp 15 Ml PO PRN AFTMEALHC PRN D3-50 (Cholecalciferol (Vitamin D3)) 50,000 Unit Capsule 50,000 Unit PO QTH Clonazepam 1 Mg Tablet 1 Mg PO TID Furosemide 40 Mg Tablet 80 Mg PO [id number] Hold for SBP less than 100. After held dose, reassess in 2 hours. If SBP is above threshold, administer dose as ordered. If SBP is below threshold, contact provider for additional instructions. I have reviewed the current psychotropics carefully including drug interactions. Risk benefit ratio favors no change other than as noted in my dictated progress note. Diagnosis: Problems: (1) Depression (2) Schizoaffective disorder (3) Anxiety disorder (4) Impulse control disorder (5) Schizoaffective disorder, chronic condition with acute exacerbation KALIN STARKS MD Mar 08, 2018 22:55
[2018-03-08] MEDS: cloZAPine 100 MG TABLET PO SCH (23:00)
[2018-03-08] MEDS: traZODone 100 MG TABLET. PO SCH (23:00)
[2018-03-08] MEDS: MIRTAZAPINE 15 MG TABLET PO SCH (23:00)
[2018-03-09 06:28] VITALS: BP 104/64
[2018-03-09 07:07] LABS: CALCIUM 8.9 mg/dL (8.5-10.1); CREATININE 1.2 mg/dL (0.6-1.0); GFR 54.9; POTASSIUM 3.2 mmol/L (3.5-5.1)
[2018-03-09] MEDS: INSULIN LISPRO 300 UNITS/3 ML INSULN.PEN. SQ SCH ×3 (09:10→17:23)
[2018-03-09] MEDS: POTASSIUM CHLORIDE 20 MEQ TABLET.ER. PO SCH ×2 (09:11→17:21)
[2018-03-09] MEDS: metFORMIN 500 MG TABLET PO SCH ×2 (09:11→17:21)
[2018-03-09] MEDS: PIOGLITAZONE 15 MG TABLET. PO SCH (09:12)
[2018-03-09] MEDS: busPIRone 10 MG TABLET. PO SCH ×3 (09:12→17:21)
[2018-03-09] MEDS: DIVALPROEX 125 MG CAP.SPRINK PO SCH ×3 (09:13→20:44)
[2018-03-09] MEDS: MAGNESIUM OXIDE 400 MG TABLET PO SCH ×2 (09:13→20:43)
[2018-03-09] MEDS: NYSTATIN TOPICAL POWDER 15GM BOTTLE. TP SCH ×2 (09:13→20:44)
[2018-03-09] MEDS: clonazePAM 1 MG TABLET PO SCH ×3 (09:13→20:43)
[2018-03-09] MEDS: metOLazone 5 MG TABLET PO SCH (09:13)
[2018-03-09] MEDS: FUROSEMIDE 80 MG TABLET PO SCH ×2 (09:13→14:06)
[2018-03-09] MEDS: traZODone 50 MG TABLET. PO SCH ×3 (09:15→17:21)
[2018-03-09] MEDS: IPRATRPIUM/ALBUTEROL 0.5/2.5MG 3 ML NEBU. NEB SCH (11:13)
[2018-03-09 16:18] VITALS: BP 129/83
[2018-03-09] MEDS: cloZAPine 100 MG TABLET PO SCH (20:43)
[2018-03-09] MEDS: MIRTAZAPINE 15 MG TABLET PO SCH (20:43)
[2018-03-09] MEDS: traZODone 100 MG TABLET. PO SCH (20:43)
--- NOTE | 2018-03-09 21:00 | PDOC ---
Exam Note: Napoleon Note: Please also refer to the separate dictated note~for this date of service dictated separately.~Patient seen individually. Discussed the patient with Nursing staff reviewed the chart.~Reviewed interim history and current functioning. Reviewed vital signs,~Labs/ Radiology~and current medications noted below. Continue current treatment with the changes noted in the dictated addendum note Assessment: Vital Signs: Vital Signs Date Time Temp Pulse Resp B/P (MAP) Pulse Ox O2 Delivery O2 Flow Rate FiO2 03/09/18 16:18 97.3 98 20 129/83 (98) 97 03/08/18 11:49 Room Air I&O Intake and Output 03/09/18 07:00 Intake Total 1320 ml Balance 1320 ml Intake Oral 1320 ml # Bowel Movements 2 Labs: Laboratory Tests Test 03/08/18 22:15 03/09/18 06:47 03/09/18 07:24 03/09/18 11:48 Sodium Level 140 mmol/L (136-145) 142 mmol/L (136-145) Potassium Level 3.7 mmol/L (3.5-5.1) 3.2 mmol/L (3.5-5.1) L Chloride Level 97 mmol/L (98-107) L 96 mmol/L (98-107) L Carbon Dioxide Level 40 mmol/L (21-32) H 43 mmol/L (21-32) H Anion Gap 3 (6-14) L 3 (6-14) L Blood Urea Nitrogen 49 mg/dL (7-20) H 38 mg/dL (7-20) H Creatinine 1.3 mg/dL (0.6-1.0) H 1.2 mg/dL (0.6-1.0) H Estimated GFR (Cockcroft-Gault) 50.1 54.9 Glucose Level 140 mg/dL (70-99) H 110 mg/dL (70-99) H Calcium Level 9.5 mg/dL (8.5-10.1) 8.9 mg/dL (8.5-10.1) Glucose (Fingerstick) 101 mg/dL (70-99) H 155 mg/dL (70-99) H Test 03/09/18 16:34 03/09/18 19:14 Glucose (Fingerstick) 224 mg/dL (70-99) H 124 mg/dL (70-99) H Current Medications: Meds: Current Medications Lorazepam (Ativan) 2 mg 1X ONCE IM ; Start 02/10/18 at 04:00; Stop 02/10/18 at 04:01; Status DC Diphenhydramine HCl (Benadryl) 50 mg 1X ONCE IM ; Start 02/10/18 at 04:00; Stop 02/10/18 at 04:01; Status DC Ziprasidone (Geodon Im) 20 mg 1X ONCE IM ; Start 02/10/18 at 04:00; Stop at 04:01; Status DC Multivitamins/ Minerals 10 ml/ Folic Acid 1 mg/ Thiamine HCl 100 mg/Lactated Ringer's 1,011.1 ml @ 1,000 mls/ hr 1X ONCE IV ; Start 02/10/18 at 03:45; Stop 02/10/18 at 04:45; Status DC Magnesium Hydroxide (Milk Of Magnesia) 2,400 mg 1X ONCE PO ; Start 02/10/18 at 05:30; Stop 02/10/18 at 05:32; Status DC Potassium Chloride (KCl Oral Soln) 40 meq 1X ONCE PO ; Start 02/10/18 at 05:30 ; Stop 02/10/18 at 05:32; Status DC Acetaminophen (Tylenol) 650 mg PRN Q6HRS PRN PO PAIN / TEMP Last administered on 02/23/18at 12:43; Start 02/10/18 at 06:15 Multi-Ingredient Ointment (Analgesic [place]) 1 guanaco PRN QID PRN TP MUSCLE PAIN; Start 02/10/18 at 06:15 Al Hydroxide/Mg Hydroxide (Mylanta Plus Xs) 15 ml PRN AFTMEALHC PRN PO DYSPEPSIA; Start 02/10/18 at 06:15 Magnesium Hydroxide (Milk Of Magnesia) 2,400 mg PRN QHS PRN PO CONSTIPATION Last administered on 03/01/18at 18:06; Start 02/10/18 at 06:15 Influenza Virus Vaccine (Afluria Trivalent [id number] Syringe) 0.5 ml ONCE ONCE VAX IM Last administered on 02/10/18at 14:21; Start 02/10/18 at 09:00; Stop at 09:01; Status DC Vitamin D (Vitamin D3) 50,000 unit QTH PO Last administered on 03/06/18 17:10 ; Start 02/13/18 at 16:00 Albuterol/ Ipratropium (Duoneb) 3 ml DAILY NEB Last administered on 03/09/18 11:13; Start 02/10/18 at 09:00 Lactobacillus Rhamnosus (Culturelle) 1 cap BID PO Last administered on at 09:03; Start 02/10/18 at 09:00; Stop 02/22/18 at 18:00; Status DC Potassium Chloride (Klor-Con) 40 meq BIDWMEALS PO Last administered on 17:21; Start 02/10/18 at 08:00 Amantadine HCl (Symmetrel) 100 mg BID PO Last administered on 02/26/18 08:21; Start 02/10/18 at 09:00; Stop 02/26/18 at 11:24; Status DC Buspirone HCl (Buspar) 10 mg 1300,1700 PO Last administered on 03/09/18 17:21 ; Start 02/10/18 at 13:00 Buspirone HCl (Buspar) 20 mg DAILY PO Last administered on 03/09/18 09:12; Start 02/10/18 at 09:00 Clonazepam (KlonoPIN) 1 mg TID PO Last administered on 03/09/18 13:53; Start 02/10/18 at 09:00; Stop 03/09/18 at 18:43; Status DC Diltiazem HCl (Cardizem 24hr Cd) 120 mg DAILY PO Last administered on 09:12; Start 02/10/18 at 09:00 Furosemide (Lasix) 80 mg BID92 PO Last administered on 03/09/18 09:13; Start 02/10/18 at 09:00 Haloperidol (Haldol) 7.5 mg DAILY PO Last administered on 02/19/18at 09:05; Start 02/10/18 at 09:00; Stop 02/19/18 at 18:16; Status DC Non-Formulary Medication (Haloperidol Decanoate (Haldol Decanoate 100)) 450 mg Q4WK IM ; Start 02/10/18 at 09:00; Stop 02/10/18 at 16:12; Status DC Non-Formulary Medication (Insulin Aspart (Novolog Flexpen)) see protocol TIDWMEALS SQ ; Start 02/10/18 at 08:00; Status UNV Magnesium Oxide (Magnesium Oxide) 400 mg BID PO Last administered on at 20:43; Start 02/10/18 at 09:00 Metformin HCl (Glucophage) 500 mg BIDWMEALS PO Last administered on 03/09/18 17:21; Start 02/10/18 at 08:00 Metolazone (Zaroxolyn) 5 mg DAILY PO Last administered on 03/09/18 09:13; Start 02/10/18 at 09:00 Mirtazapine (Remeron) 15 mg QHS PO Last administered on 03/09/18 20:43; Start 02/10/18 at 21:00 Pioglitazone HCl (Actos) 15 mg DAILY PO Last administered on 03/09/18 09:12; Start 02/10/18 at 09:00 Trazodone HCl (Desyrel) 25 mg TID@0900,1300,1700 PO Last administered on 17:21; Start 02/10/18 at 09:00 Valproic Acid (Depakene) 750 mg TID PO Last administered on 02/17/18at 21:01; Start 02/10/18 at 09:00; Stop 02/18/18 at 08:06; Status DC Insulin Human Lispro (HumaLOG) 0-9 UNITS TIDWMEALS SQ Last administered on 17:23; Start 02/10/18 at 08:00 Dextrose 12.5 gm PRN Q15MIN PRN IV SEE COMMENTS; Start 02/10/18 at 06:30 Olanzapine (ZyPREXA ZYDIS) 5 mg PRN Q2HR PRN PO PSYCHOSIS Last administered on 03/02/18 12:27; Start 02/10/18 at 06:45 Haloperidol Decanoate (Haldol Decanoate Im Extended Release) 450 mg Q4WK IM ; Start 03/10/18 at 09:00 Trazodone HCl (Desyrel) 25 mg STK-MED ONCE .ROUTE ; Start 02/10/18 at 09:00; Stop 02/11/18 at 10:03; Status DC Trazodone HCl (Desyrel) 25 mg STK-MED ONCE .ROUTE ; Start 02/10/18 at 09:00; Stop 02/11/18 at 10:03; Status DC Trazodone HCl (Desyrel) 25 mg STK-MED ONCE .ROUTE ; Start 02/10/18 at 09:00; Stop 02/11/18 at 10:03; Status DC Trazodone HCl (Desyrel) 25 mg STK-MED ONCE .ROUTE ; Start 02/11/18 at 09:00; Stop 02/11/18 at 10:04; Status DC Clozapine (Clozaril) 25 mg HS PO Last administered on 02/16/18at 21:13; Start at 21:00; Stop 02/17/18 at 17:40; Status DC Nystatin (Nystop) 1 guanaco BID TP Last administered on 03/09/18at 20:44; Start at 09:00 Trazodone HCl (Desyrel) 100 mg PRN QHS PRN PO INSOMNIA, MAY REPEAT X1; Start at 17:00; Stop 02/16/18 at 22:42; Status DC Trazodone HCl (Desyrel) 100 mg QHS PO Last administered on 03/09/18at 20:43; Start 02/16/18 at 23:00 Trazodone HCl (Desyrel) 100 mg PRN QHS PRN PO insomnia Last administered on at 19:46; Start 02/16/18 at 22:45 Clozapine (Clozaril) 50 mg HS PO Last administered on 02/23/18at 19:21; Start at 21:00; Stop 02/24/18 at 16:13; Status DC Divalproex Sodium (Depakote Sprinkles) 750 mg TID PO Last administered on 03/09 20:44; Start 02/18/18 at 09:00 Haloperidol (Haldol) 5 mg DAILY PO Last administered on 03/03/18at 09:32; Start 02/20/18 at 09:00; Stop 03/03/18 at 16:23; Status DC Clozapine (Clozaril) 75 mg HS PO Last administered on 03/02/18at 19:49; Start 02/24/18 at 21:00; Stop 03/03/18 at 16:23; Status DC Clozapine (Clozaril) 100 mg HS PO ; Start 03/03/18 at 16:30; Stop 03/03/18 at 17 :06; Status DC Clozapine (Clozaril) 100 mg HS PO Last administered on 03/09/18at 20:43; Start 03/03/18 at 21:00 Sodium Chloride 500 ml @ 0 mls/hr 1X ONCE IV Last administered on 03/08/18at 13:00; Start 03/08/18 at 13:00; Stop 03/08/18 at 13:01; Status DC Sodium Chloride 500 ml @ 125 mls/hr 1X ONCE IV Last administered on at 14:30; Start 03/08/18 at 15:15; Stop 03/08/18 at 19:14; Status DC Clonazepam (KlonoPIN) 1 mg 1200,1700 PO Last administered on 03/09/18at 20:43; Start 03/10/18 at 12:00 Clonazepam (KlonoPIN) 0.5 mg DAILY PO ; Start 03/10/18 at 09:00 Active Scripts Active Reported Duoneb 0.5-3(2.5) Mg/3 Ml (Albuterol/Ipratropium) 3 Ml Ampul.neb 3 Ml NEB DAILY Zyprexa Zydis (Olanzapine) 5 Mg Tab.rapdis 5 Mg PO PRN Q2HR PRN Buspirone Hcl 10 Mg Tablet 10 Mg PO BID@1300,1700 Valproic Acid (Valproate Sodium) 250 Mg/5 Ml Solution 750 Mg PO TID Novolog Flexpen (Insulin Aspart) 100 Unit/1 Ml Insuln.pen 0-9 Unit SQ TIDWMEALS <70 follow hypoglycemic protocol 70-150 0units if eating/ 0 if not eating 151-200 4 units if eating/ 0 units if not eating 201-250 5 units if eating/ 3 units if not eating 251-300 7 units if eating/ 4 units if not eating 301-350 9 units if eating/ 5 units if not eating > 351 Call Physician for futher orders Trazodone Hcl 100 Mg Tablet 200 Mg PO PRN QHS PRN Trazodone Hcl 50 Mg Tablet 25 Mg PO TID@0900,1300,1700 Culturelle (Lactobacillus Rhamnosus Gg) 1 Each Cap.sprink 1 Each PO BID Haloperidol 5 Mg Tablet 7.5 Mg PO DAILY Tylenol (Acetaminophen) 325 Mg Tablet 650 Mg PO PRN Q6HRS PRN Buspirone Hcl 10 Mg Tablet 20 Mg PO DAILY Theophylline Anhydrous 200 Mg Tab.er.12h 200 Mg PO BID Metolazone 5 Mg Tablet 5 Mg PO DAILY Metformin Hcl 500 Mg Tablet 500 Mg PO BIDWMEALS Cardizem Tablet (Diltiazem Hcl) 120 Mg Tablet 120 Mg PO DAILY Amantadine (Amantadine Hcl) 100 Mg Tablet 100 Mg PO BID Actos (Pioglitazone Hcl) 15 Mg Tablet 15 Mg PO DAILY Mirtazapine 15 Mg Tablet 15 Mg PO QHS Haldol Decanoate 100 (Haloperidol Decanoate) 100 Mg/1 Ml Ampul 450 Mg IM Q4WK Klor-Con M20 (Potassium Chloride) 20 Meq Tab.er.prt 40 Meq PO BIDWMEALS Analgesic [place] (Methyl Salicylate/Menthol) 28 Gm Oint...g. 1 Guanaco TP PRN QID PRN Magnesium Oxide 400 Mg Tablet 400 Mg PO BID Milk Of Magnesia (Magnesium Hydroxide) 2,400 Mg/10 Ml Oral.susp 2,400 Mg PO PRN QHS PRN Maalox Advanced Suspension (Mag Hydrox/Aluminum Hyd/Simeth) 355 Ml Oral.susp 15 Ml PO PRN AFTMEALHC PRN D3-50 (Cholecalciferol (Vitamin D3)) 50,000 Unit Capsule 50,000 Unit PO QTH Clonazepam 1 Mg Tablet 1 Mg PO TID Furosemide 40 Mg Tablet 80 Mg PO [id number] Hold for SBP less than 100. After held dose, reassess in 2 hours. If SBP is above threshold, administer dose as ordered. If SBP is below threshold, contact provider for additional instructions. I have reviewed the current psychotropics carefully including drug interactions. Risk benefit ratio favors no change other than as noted in my dictated progress note. Diagnosis: Problems: (1) Depression (2) Schizoaffective disorder (3) Anxiety disorder (4) Impulse control disorder (5) Schizoaffective disorder, chronic condition with acute exacerbation KALIN STARKS MD Mar 09, 2018 21:00
--- NOTE | 2018-03-10 04:09 | PN ---
DATE: 03/08/2018 This is a late entry for 03/08/2018 covers elements not covered in my initial note. SUBJECTIVE: I met with the patient in the evening. The patient slept 5-3/4 hours previous night. She remains somewhat anxious, restless, labile, but better than before. REVIEW OF SYSTEMS: Ambulation impaired with walker. No CV, , pulmonary, eye, ENT system symptoms on review. Reliability poor. MENTAL STATUS EXAM: Oriented to herself and situation. Speech has some latency, can be loud at times. Abstraction fair, computation impaired, language function intact. Mood and affect somewhat labile. LABORATORY DATA: Reviewed. IMPRESSION: Schizoaffective disorder, bipolar type, mixed with psychotic features. No further change from the rest of the prior diagnoses. PLAN: Continue current psychotropics, gradually increase the Clozaril as tolerated. Continue Depakote, level is therapeutic together with Haldol Decanoate, Klonopin, trazodone scheduled during the day. KALIN STARKS MD DR: [email or web address]/karli JOB#: [id number] / [id number]
[2018-03-10 06:44] VITALS: BP 117/73
[2018-03-10 07:31] LABS: CALCIUM 9.3 mg/dL (8.5-10.1); CREATININE 1.3 mg/dL (0.6-1.0); GFR 50.1; POTASSIUM 3.8 mmol/L (3.5-5.1)
[2018-03-10] MEDS: INSULIN LISPRO 300 UNITS/3 ML INSULN.PEN. SQ SCH ×3 (08:21→17:22)
[2018-03-10] MEDS: metFORMIN 500 MG TABLET PO SCH ×2 (08:30→17:25)
[2018-03-10] MEDS: busPIRone 10 MG TABLET. PO SCH ×3 (08:31→17:25)
[2018-03-10] MEDS: PIOGLITAZONE 15 MG TABLET. PO SCH (08:31)
[2018-03-10] MEDS: POTASSIUM CHLORIDE 20 MEQ TABLET.ER. PO SCH ×2 (08:31→17:25)
[2018-03-10] MEDS: DIVALPROEX 125 MG CAP.SPRINK PO SCH ×3 (08:32→20:52)
[2018-03-10] MEDS: traZODone 50 MG TABLET. PO SCH ×3 (08:36→17:25)
[2018-03-10] MEDS: metOLazone 5 MG TABLET PO SCH (08:36)
[2018-03-10] MEDS: MAGNESIUM OXIDE 400 MG TABLET PO SCH ×2 (08:36→20:52)
[2018-03-10] MEDS: clonazePAM 0.5 MG TABLET PO SCH (08:37)
[2018-03-10] MEDS: NYSTATIN TOPICAL POWDER 15GM BOTTLE. TP SCH ×2 (09:00→21:09)
[2018-03-10] MEDS ORDERED: HALOPERIDOL DECANOATE IM ER 100 MG/ML VIAL. IM SCH (09:00)
[2018-03-10] MEDS: FUROSEMIDE 80 MG TABLET PO SCH ×2 (09:00→14:00)
[2018-03-10] MEDS: NYSTATIN 100,000 UNITS/ML ORAL SUSPENSION 60ML BOTTLE. SWSW SCH ×3 (13:00→21:09)
[2018-03-10 16:24] VITALS: BP 133/74
[2018-03-10] MEDS: IPRATRPIUM/ALBUTEROL 0.5/2.5MG 3 ML NEBU. NEB SCH (16:45)
[2018-03-10] MEDS: clonazePAM 1 MG TABLET PO SCH (17:25)
[2018-03-10 19:53] LABS: BASO # 0.1 x10^3/uL (0.0-0.2); BASO % 1 % (0-3); EOS # 0.1 x10^3/uL (0.0-0.7); EOS % 2 % (0-3); HEMATOCRIT 36.8 % (36.0-47.0); HEMOGLOBIN 11.5 g/dL (12.0-15.5); LYMPH # 1.8 x10^3/uL (1.0-4.8); LYMPH % 26 % (24-48); MEAN CORPUSCULAR HEMOGLOBIN 28 pg (25-35); MEAN CORPUSCULAR HGB CONC 31 g/dL (31-37); MEAN CORPUSCULAR VOLUME 89 fL (79-100); MONO # 0.5 x10^3/uL (0.0-1.1); MONO % 7 % (0-9); NEUT # 4.3 x10^3uL (1.8-7.7); NEUT % 64 % (31-73); PLATELET COUNT 160 x10^3/uL (140-400); RED BLOOD COUNT 4.14 x10^6/uL (3.50-5.40); RED CELL DISTRIBUTION WIDTH 15.9 % (11.5-14.5); WHITE BLOOD COUNT 6.7 x10^3/uL (4.0-11.0)
[2018-03-10] MEDS: MIRTAZAPINE 15 MG TABLET PO SCH (20:52)
[2018-03-10] MEDS: cloZAPine 100 MG TABLET PO SCH (20:52)
[2018-03-10] MEDS: traZODone 100 MG TABLET. PO SCH (20:53)
[2018-03-11 06:32] VITALS: BP 134/75
[2018-03-11] MEDS: INSULIN LISPRO 300 UNITS/3 ML INSULN.PEN. SQ SCH ×3 (08:00→17:05)
[2018-03-11] MEDS: metFORMIN 500 MG TABLET PO SCH ×2 (09:16→16:59)
[2018-03-11] MEDS: POTASSIUM CHLORIDE 20 MEQ TABLET.ER. PO SCH ×2 (09:17→17:00)
[2018-03-11] MEDS: busPIRone 10 MG TABLET. PO SCH ×3 (09:19→16:59)
[2018-03-11] MEDS: PIOGLITAZONE 15 MG TABLET. PO SCH (09:19)
[2018-03-11] MEDS: traZODone 50 MG TABLET. PO SCH ×3 (09:21→16:59)
[2018-03-11] MEDS: DIVALPROEX 125 MG CAP.SPRINK PO SCH ×3 (09:21→20:41)
[2018-03-11] MEDS: clonazePAM 0.5 MG TABLET PO SCH (09:22)
[2018-03-11] MEDS: FUROSEMIDE 80 MG TABLET PO SCH ×2 (09:22→12:38)
[2018-03-11] MEDS: MAGNESIUM OXIDE 400 MG TABLET PO SCH ×2 (09:22→20:41)
[2018-03-11] MEDS: metOLazone 5 MG TABLET PO SCH (09:23)
[2018-03-11] MEDS: NYSTATIN 100,000 UNITS/ML ORAL SUSPENSION 60ML BOTTLE. SWSW SCH ×5 (09:24→20:44)
[2018-03-11] MEDS: NYSTATIN TOPICAL POWDER 15GM BOTTLE. TP SCH ×2 (09:25→21:00)
[2018-03-11 10:14] LABS: CALCIUM 8.8 mg/dL (8.5-10.1); CREATININE 1.3 mg/dL (0.6-1.0); GFR 50.1; POTASSIUM 3.6 mmol/L (3.5-5.1)
[2018-03-11] MEDS: IPRATRPIUM/ALBUTEROL 0.5/2.5MG 3 ML NEBU. NEB SCH (11:38)
[2018-03-11] MEDS: clonazePAM 1 MG TABLET PO SCH ×2 (12:33→17:00)
--- NOTE | 2018-03-11 16:04 | PN ---
DATE: 03/09/2018 This late entry 03/09/2018 covers elements, not covered in my initial note. SUBJECTIVE: I met with the patient in the evening. The patient slept just 3 hours previous evening. The day before, she was somewhat groggy and the daytime psychotropics were held by nursing staff. On 03/09/2018, she is able to feed herself. In the morning, her eyes were heavy, more await in the evening when I met with her. REVIEW OF SYSTEMS: Ambulation impaired with walker. No CV, , pulmonary, eye, ENT system symptoms on review. MENTAL STATUS EXAM: Oriented to herself at time, situation. Speech coherent, less pressured, less yelling. Abstraction fair, computation impaired, language function intact, attention span short. Mood and affect remain somewhat anxious, labile. LABORATORY DATA: Reviewed. IMPRESSION: Schizoaffective disorder, bipolar type, mixed with psychotic features, in partial remission; cognitive disorder, unspecified. PLAN: Continue psychotropics from initial note, reduce the 8 a.m. Klonopin from 1 mg down to 0.5 mg due to sedation. Rest unchanged. Clozaril is 100 mg at bedtime. Check CBC, absolute neutrophil count on 03/10/2018 and then increase the Clozaril. MAN Mary STARKS MD DR: TRACIE/karli JOB#: [id number] / [id number]
[2018-03-11 16:55] VITALS: BP 163/86
[2018-03-11] MEDS: traZODone 100 MG TABLET. PO SCH (20:41)
[2018-03-11] MEDS: MIRTAZAPINE 15 MG TABLET PO SCH (20:41)
[2018-03-11] MEDS: cloZAPine 100 MG TABLET PO SCH (20:44)
--- NOTE | 2018-03-11 23:24 | PDOC ---
Exam Note: Napoleon Note: Please also refer to the separate dictated note~for this date of service dictated separately.~Patient seen individually. Discussed the patient with Nursing staff reviewed the chart.~Reviewed interim history and current functioning. Reviewed vital signs,~Labs/ Radiology~and current medications noted below. Continue current treatment with the changes noted in the dictated addendum note Assessment: Vital Signs: Vital Signs Date Time Temp Pulse Resp B/P (MAP) Pulse Ox O2 Delivery O2 Flow Rate FiO2 03/11/18 16:55 97.6 78 18 163/86 (111) 92 03/11/18 11:38 Room Air I&O Intake and Output 03/11/18 07:00 Intake Total 1280 ml Balance 1280 ml Intake Oral 1280 ml Labs: Laboratory Tests Test 03/11/18 07:40 03/11/18 09:58 03/11/18 11:39 03/11/18 16:16 Glucose (Fingerstick) 132 mg/dL (70-99) H 202 mg/dL (70-99) H 151 mg/dL (70-99) H Sodium Level 138 mmol/L (136-145) Potassium Level 3.6 mmol/L (3.5-5.1) Chloride Level 98 mmol/L (98-107) Carbon Dioxide Level 37 mmol/L (21-32) H Anion Gap 3 (6-14) L Blood Urea Nitrogen 29 mg/dL (7-20) H Creatinine 1.3 mg/dL (0.6-1.0) H Estimated GFR (Cockcroft-Gault) 50.1 Glucose Level 247 mg/dL (70-99) H Calcium Level 8.8 mg/dL (8.5-10.1) Test 03/11/18 19:07 Glucose (Fingerstick) 140 mg/dL (70-99) H Current Medications: Meds: Current Medications Lorazepam (Ativan) 2 mg 1X ONCE IM ; Start 02/10/18 at 04:00; Stop 02/10/18 at 04:01; Status DC Diphenhydramine HCl (Benadryl) 50 mg 1X ONCE IM ; Start 02/10/18 at 04:00; Stop 02/10/18 at 04:01; Status DC Ziprasidone (Geodon Im) 20 mg 1X ONCE IM ; Start 02/10/18 at 04:00; Stop at 04:01; Status DC Multivitamins/ Minerals 10 ml/ Folic Acid 1 mg/ Thiamine HCl 100 mg/Lactated Ringer's 1,011.1 ml @ 1,000 mls/ hr 1X ONCE IV ; Start 02/10/18 at 03:45; Stop 02/10/18 at 04:45; Status DC Magnesium Hydroxide (Milk Of Magnesia) 2,400 mg 1X ONCE PO ; Start 02/10/18 at 05:30; Stop 02/10/18 at 05:32; Status DC Potassium Chloride (KCl Oral Soln) 40 meq 1X ONCE PO ; Start 02/10/18 at 05:30 ; Stop 02/10/18 at 05:32; Status DC Acetaminophen (Tylenol) 650 mg PRN Q6HRS PRN PO PAIN / TEMP Last administered on 02/23/18at 12:43; Start 02/10/18 at 06:15 Multi-Ingredient Ointment (Analgesic Ledbetter) 1 guanaco PRN QID PRN TP MUSCLE PAIN; Start 02/10/18 at 06:15 Al Hydroxide/Mg Hydroxide (Mylanta Plus Xs) 15 ml PRN AFTMEALHC PRN PO DYSPEPSIA; Start 02/10/18 at 06:15 Magnesium Hydroxide (Milk Of Magnesia) 2,400 mg PRN QHS PRN PO CONSTIPATION Last administered on 03/01/18at 18:06; Start 02/10/18 at 06:15 Influenza Virus Vaccine (Afluria Trivalent 5146-8631 Syringe) 0.5 ml ONCE ONCE VAX IM Last administered on 02/10/18at 14:21; Start 02/10/18 at 09:00; Stop at 09:01; Status DC Vitamin D (Vitamin D3) 50,000 unit QTH PO Last administered on 03/06/18at 17:10 ; Start 02/13/18 at 16:00 Albuterol/ Ipratropium (Duoneb) 3 ml DAILY NEB Last administered on 03/11/18at 11:38; Start 02/10/18 at 09:00 Lactobacillus Rhamnosus (Culturelle) 1 cap BID PO Last administered on at 09:03; Start 02/10/18 at 09:00; Stop 02/22/18 at 18:00; Status DC Potassium Chloride (Klor-Con) 40 meq BIDWMEALS PO Last administered on 17:00; Start 02/10/18 at 08:00 Amantadine HCl (Symmetrel) 100 mg BID PO Last administered on 02/26/18 08:21; Start 02/10/18 at 09:00; Stop 02/26/18 at 11:24; Status DC Buspirone HCl (Buspar) 10 mg 1300,1700 PO Last administered on 03/11/18at 16:59 ; Start 02/10/18 at 13:00 Buspirone HCl (Buspar) 20 mg DAILY PO Last administered on 03/11/18 09:19; Start 02/10/18 at 09:00 Clonazepam (KlonoPIN) 1 mg TID PO Last administered on 03/09/18 13:53; Start 02/10/18 at 09:00; Stop 03/09/18 at 18:43; Status DC Diltiazem HCl (Cardizem 24hr Cd) 120 mg DAILY PO Last administered on at 09:21; Start 02/10/18 at 09:00 Furosemide (Lasix) 80 mg BID92 PO Last administered on 03/11/18at 12:38; Start 02/10/18 at 09:00 Haloperidol (Haldol) 7.5 mg DAILY PO Last administered on 02/19/18at 09:05; Start 02/10/18 at 09:00; Stop 02/19/18 at 18:16; Status DC Non-Formulary Medication (Haloperidol Decanoate (Haldol Decanoate 100)) 450 mg Q4WK IM ; Start 02/10/18 at 09:00; Stop 02/10/18 at 16:12; Status DC Non-Formulary Medication (Insulin Aspart (Novolog Flexpen)) see protocol TIDWMEALS SQ ; Start 02/10/18 at 08:00; Status UNV Magnesium Oxide (Magnesium Oxide) 400 mg BID PO Last administered on at 20:41; Start 02/10/18 at 09:00 Metformin HCl (Glucophage) 500 mg BIDWMEALS PO Last administered on 03/11/18at 16:59; Start 02/10/18 at 08:00 Metolazone (Zaroxolyn) 5 mg DAILY PO Last administered on 03/11/18at 09:23; Start 02/10/18 at 09:00 Mirtazapine (Remeron) 15 mg QHS PO Last administered on 03/11/18at 20:41; Start 02/10/18 at 21:00 Pioglitazone HCl (Actos) 15 mg DAILY PO Last administered on 03/11/18at 09:19; Start 02/10/18 at 09:00 Trazodone HCl (Desyrel) 25 mg TID@0900,1300,1700 PO Last administered on at 16:59; Start 02/10/18 at 09:00 Valproic Acid (Depakene) 750 mg TID PO Last administered on 02/17/18at 21:01; Start 02/10/18 at 09:00; Stop 02/18/18 at 08:06; Status DC Insulin Human Lispro (HumaLOG) 0-9 UNITS TIDWMEALS SQ Last administered on at 17:05; Start 02/10/18 at 08:00 Dextrose 12.5 gm PRN Q15MIN PRN IV SEE COMMENTS; Start 02/10/18 at 06:30 Olanzapine (ZyPREXA ZYDIS) 5 mg PRN Q2HR PRN PO PSYCHOSIS Last administered on 03/02/18at 12:27; Start 02/10/18 at 06:45 Haloperidol Decanoate (Haldol Decanoate Im Extended Release) 450 mg Q4WK IM Last administered on 03/10/18at 08:50; Start 03/10/18 at 09:00 Trazodone HCl (Desyrel) 25 mg STK-MED ONCE .ROUTE ; Start 02/10/18 at 09:00; Stop 02/11/18 at 10:03; Status DC Trazodone HCl (Desyrel) 25 mg STK-MED ONCE .ROUTE ; Start 02/10/18 at 09:00; Stop 02/11/18 at 10:03; Status DC Trazodone HCl (Desyrel) 25 mg STK-MED ONCE .ROUTE ; Start 02/10/18 at 09:00; Stop 02/11/18 at 10:03; Status DC Trazodone HCl (Desyrel) 25 mg STK-MED ONCE .ROUTE ; Start 02/11/18 at 09:00; Stop 02/11/18 at 10:04; Status DC Clozapine (Clozaril) 25 mg HS PO Last administered on 02/16/18at 21:13; Start at 21:00; Stop 02/17/18 at 17:40; Status DC Nystatin (Nystop) 1 guanaco BID TP Last administered on 03/11/18at 09:25; Start at 09:00 Trazodone HCl (Desyrel) 100 mg PRN QHS PRN PO INSOMNIA, MAY REPEAT X1; Start at 17:00; Stop 02/16/18 at 22:42; Status DC Trazodone HCl (Desyrel) 100 mg QHS PO Last administered on 03/11/18at 20:41; Start 02/16/18 at 23:00 Trazodone HCl (Desyrel) 100 mg PRN QHS PRN PO insomnia Last administered on at 19:46; Start 02/16/18 at 22:45 Clozapine (Clozaril) 50 mg HS PO Last administered on 02/23/18at 19:21; Start at 21:00; Stop 02/24/18 at 16:13; Status DC Divalproex Sodium (Depakote Sprinkles) 750 mg TID PO Last administered on 03/11at 20:41; Start 02/18/18 at 09:00 Haloperidol (Haldol) 5 mg DAILY PO Last administered on 03/03/18at 09:32; Start 02/20/18 at 09:00; Stop 03/03/18 at 16:23; Status DC Clozapine (Clozaril) 75 mg HS PO Last administered on 03/02/18at 19:49; Start 02/24/18 at 21:00; Stop 03/03/18 at 16:23; Status DC Clozapine (Clozaril) 100 mg HS PO ; Start 03/03/18 at 16:30; Stop 03/03/18 at 17 :06; Status DC Clozapine (Clozaril) 100 mg HS PO Last administered on 03/10/18at 20:52; Start 03/03/18 at 21:00; Stop 03/10/18 at 22:18; Status DC Sodium Chloride 500 ml @ 0 mls/hr 1X ONCE IV Last administered on 03/08/18at 13:00; Start 03/08/18 at 13:00; Stop 03/08/18 at 13:01; Status DC Sodium Chloride 500 ml @ 125 mls/hr 1X ONCE IV Last administered on at 14:30; Start 03/08/18 at 15:15; Stop 03/08/18 at 19:14; Status DC Clonazepam (KlonoPIN) 1 mg 1200,1700 PO Last administered on 03/11/18at 17:00; Start 03/10/18 at 12:00 Clonazepam (KlonoPIN) 0.5 mg DAILY PO Last administered on 03/11/18at 09:22; Start 03/10/18 at 09:00 Nystatin (Mycostatin) 5 ml QID SWSW Last administered on 03/11/18at 20:44; Start 03/10/18 at 13:00 Clozapine (Clozaril) 125 mg HS PO Last administered on 03/11/18at 20:44; Start 03/11/18 at 21:00 Active Scripts Active Reported Duoneb 0.5-3(2.5) Mg/3 Ml (Albuterol/Ipratropium) 3 Ml Ampul.neb 3 Ml NEB DAILY Zyprexa Zydis (Olanzapine) 5 Mg Tab.rapdis 5 Mg PO PRN Q2HR PRN Buspirone Hcl 10 Mg Tablet 10 Mg PO BID@1300,1700 Valproic Acid (Valproate Sodium) 250 Mg/5 Ml Solution 750 Mg PO TID Novolog Flexpen (Insulin Aspart) 100 Unit/1 Ml Insuln.pen 0-9 Unit SQ TIDWMEALS <70 follow hypoglycemic protocol 70-150 0units if eating/ 0 if not eating 151-200 4 units if eating/ 0 units if not eating 201-250 5 units if eating/ 3 units if not eating 251-300 7 units if eating/ 4 units if not eating 301-350 9 units if eating/ 5 units if not eating > 351 Call Physician for futher orders Trazodone Hcl 100 Mg Tablet 200 Mg PO PRN QHS PRN Trazodone Hcl 50 Mg Tablet 25 Mg PO TID@0900,1300,1700 Culturelle (Lactobacillus Rhamnosus Gg) 1 Each Cap.sprink 1 Each PO BID Haloperidol 5 Mg Tablet 7.5 Mg PO DAILY Tylenol (Acetaminophen) 325 Mg Tablet 650 Mg PO PRN Q6HRS PRN Buspirone Hcl 10 Mg Tablet 20 Mg PO DAILY Theophylline Anhydrous 200 Mg Tab.er.12h 200 Mg PO BID Metolazone 5 Mg Tablet 5 Mg PO DAILY Metformin Hcl 500 Mg Tablet 500 Mg PO BIDWMEALS Cardizem Tablet (Diltiazem Hcl) 120 Mg Tablet 120 Mg PO DAILY Amantadine (Amantadine Hcl) 100 Mg Tablet 100 Mg PO BID Actos (Pioglitazone Hcl) 15 Mg Tablet 15 Mg PO DAILY Mirtazapine 15 Mg Tablet 15 Mg PO QHS Haldol Decanoate 100 (Haloperidol Decanoate) 100 Mg/1 Ml Ampul 450 Mg IM Q4WK Klor-Con M20 (Potassium Chloride) 20 Meq Tab.er.prt 40 Meq PO BIDWMEALS Analgesic Ledbetter (Methyl Salicylate/Menthol) 28 Gm Oint...g. 1 Guanaco TP PRN QID PRN Magnesium Oxide 400 Mg Tablet 400 Mg PO BID Milk Of Magnesia (Magnesium Hydroxide) 2,400 Mg/10 Ml Oral.susp 2,400 Mg PO PRN QHS PRN Maalox Advanced Suspension (Mag Hydrox/Aluminum Hyd/Simeth) 355 Ml Oral.susp 15 Ml PO PRN AFTMEALHC PRN D3-50 (Cholecalciferol (Vitamin D3)) 50,000 Unit Capsule 50,000 Unit PO QTH Clonazepam 1 Mg Tablet 1 Mg PO TID Furosemide 40 Mg Tablet 80 Mg PO [id number] Hold for SBP less than 100. After held dose, reassess in 2 hours. If SBP is above threshold, administer dose as ordered. If SBP is below threshold, contact provider for additional instructions. I have reviewed the current psychotropics carefully including drug interactions. Risk benefit ratio favors no change other than as noted in my dictated progress note. Diagnosis: Problems: (1) Depression (2) Schizoaffective disorder (3) Anxiety disorder (4) Impulse control disorder (5) Schizoaffective disorder, chronic condition with acute exacerbation KALIN STRAKS MD Mar 11, 2018 23:24
[2018-03-12 06:17] VITALS: BP 99/62
[2018-03-12] MEDS: PIOGLITAZONE 15 MG TABLET. PO SCH (07:46)
[2018-03-12] MEDS: traZODone 50 MG TABLET. PO SCH ×3 (07:47→17:13)
[2018-03-12] MEDS: MAGNESIUM OXIDE 400 MG TABLET PO SCH ×2 (07:47→20:42)
[2018-03-12] MEDS: POTASSIUM CHLORIDE 20 MEQ TABLET.ER. PO SCH ×2 (07:47→17:13)
[2018-03-12] MEDS: DIVALPROEX 125 MG CAP.SPRINK PO SCH ×3 (07:48→20:42)
[2018-03-12] MEDS: FUROSEMIDE 80 MG TABLET PO SCH ×2 (07:48→12:03)
[2018-03-12] MEDS: metFORMIN 500 MG TABLET PO SCH ×2 (07:48→17:13)
[2018-03-12] MEDS: busPIRone 10 MG TABLET. PO SCH ×3 (07:48→17:13)
[2018-03-12] MEDS: clonazePAM 0.5 MG TABLET PO SCH (07:50)
[2018-03-12] MEDS: metOLazone 5 MG TABLET PO SCH (07:51)
[2018-03-12] MEDS: NYSTATIN 100,000 UNITS/ML ORAL SUSPENSION 60ML BOTTLE. SWSW SCH ×4 (07:53→21:00)
[2018-03-12] MEDS: NYSTATIN TOPICAL POWDER 15GM BOTTLE. TP SCH ×2 (07:53→21:00)
[2018-03-12] MEDS: INSULIN LISPRO 300 UNITS/3 ML INSULN.PEN. SQ SCH ×3 (08:00→17:35)
--- NOTE | 2018-03-12 09:18 | PN ---
DATE: 03/10/2018 This is a late entry for 03/10/2018 and covers elements not covered in my initial note. SUBJECTIVE: I met with the patient in the evening. The patient slept 7 hours previous night. She did receive the Haldol Decanoate on 03/10/2018 and was quite agitated with the nursing staff who administered it because she gets a rather large dosage, 450 mg IM q. 28 days. We have discontinued her oral Haldol as we have increased the Clozaril. REVIEW OF SYSTEMS: Ambulation impaired with walker. No CV, , pulmonary, eye system symptoms on review. Reliability varies. MENTAL STATUS EXAM: Oriented to herself and situation. Speech can be rapid, loud at times, less pressured. Abstraction fair, computation impaired, language function intact, attention span short. Mood and affect remain somewhat labile, but better than before. LABORATORY DATA: Reviewed. IMPRESSION: Schizoaffective disorder, bipolar type, mixed with psychotic features; cognitive disorder, unspecified. PLAN: CBC, absolute neutrophil count unremarkable on Clozaril 100 mg p.o. at bedtime and we will increase to 125 mg p.o. at bedtime with weekly CBC, absolute neutrophil counts. Continue Depakote at current dosage, level therapeutic at 58. Maintain the scheduled Klonopin, trazodone, Haldol Decanoate, BuSpar along with Remeron at bedtime. We will reduce the rest of the psychotropics as she gradually responds to the increase of Clozaril for her psychotic symptoms, mood lability. KALIN STARKS MD DR: TRACIE/karli JOB#: [id number] / [id number]
[2018-03-12] MEDS: IPRATRPIUM/ALBUTEROL 0.5/2.5MG 3 ML NEBU. NEB SCH (11:17)
[2018-03-12] MEDS: clonazePAM 1 MG TABLET PO SCH ×2 (12:04→17:13)
[2018-03-12] MEDS: MIRTAZAPINE 15 MG TABLET PO SCH (20:42)
[2018-03-12] MEDS: traZODone 100 MG TABLET. PO SCH (20:42)
[2018-03-12] MEDS: cloZAPine 100 MG TABLET PO SCH (20:46)
--- NOTE | 2018-03-12 23:27 | PDOC ---
Exam Note: Napoleon Note: Please also refer to the separate dictated note~for this date of service dictated separately.~Patient seen individually. Discussed the patient with Nursing staff reviewed the chart.~Reviewed interim history and current functioning. Reviewed vital signs,~Labs/ Radiology~and current medications noted below. Continue current treatment with the changes noted in the dictated addendum note Assessment: Vital Signs: Vital Signs Date Time Temp Pulse Resp B/P (MAP) Pulse Ox O2 Delivery O2 Flow Rate FiO2 03/12/18 11:17 100 Room Air 03/12/18 07:46 71 99/62 03/12/18 06:17 97.6 20 I&O Intake and Output 03/12/18 07:00 Intake Total 1080 ml Balance 1080 ml Intake Oral 1080 ml Labs: Laboratory Tests Test 03/12/18 07:26 03/12/18 11:14 03/12/18 17:10 03/12/18 19:04 Glucose (Fingerstick) 108 mg/dL (70-99) H 150 mg/dL (70-99) H 171 mg/dL (70-99) H 210 mg/dL (70-99) H Current Medications: Meds: Current Medications Lorazepam (Ativan) 2 mg 1X ONCE IM ; Start 02/10/18 at 04:00; Stop 02/10/18 at 04:01; Status DC Diphenhydramine HCl (Benadryl) 50 mg 1X ONCE IM ; Start 02/10/18 at 04:00; Stop 02/10/18 at 04:01; Status DC Ziprasidone (Geodon Im) 20 mg 1X ONCE IM ; Start 02/10/18 at 04:00; Stop at 04:01; Status DC Multivitamins/ Minerals 10 ml/ Folic Acid 1 mg/ Thiamine HCl 100 mg/Lactated Ringer's 1,011.1 ml @ 1,000 mls/ hr 1X ONCE IV ; Start 02/10/18 at 03:45; Stop 02/10/18 at 04:45; Status DC Magnesium Hydroxide (Milk Of Magnesia) 2,400 mg 1X ONCE PO ; Start 02/10/18 at 05:30; Stop 02/10/18 at 05:32; Status DC Potassium Chloride (KCl Oral Soln) 40 meq 1X ONCE PO ; Start 02/10/18 at 05:30 ; Stop 02/10/18 at 05:32; Status DC Acetaminophen (Tylenol) 650 mg PRN Q6HRS PRN PO PAIN / TEMP Last administered on 02/23/18at 12:43; Start 02/10/18 at 06:15 Multi-Ingredient Ointment (Analgesic Kane) 1 guanaco PRN QID PRN TP MUSCLE PAIN; Start 02/10/18 at 06:15 Al Hydroxide/Mg Hydroxide (Mylanta Plus Xs) 15 ml PRN AFTMEALHC PRN PO DYSPEPSIA; Start 02/10/18 at 06:15 Magnesium Hydroxide (Milk Of Magnesia) 2,400 mg PRN QHS PRN PO CONSTIPATION Last administered on 03/01/18at 18:06; Start 02/10/18 at 06:15 Influenza Virus Vaccine (Afluria Trivalent [id number] Syringe) 0.5 ml ONCE ONCE VAX IM Last administered on 02/10/18at 14:21; Start 02/10/18 at 09:00; Stop at 09:01; Status DC Vitamin D (Vitamin D3) 50,000 unit QTH PO Last administered on 03/06/18at 17:10 ; Start 02/13/18 at 16:00 Albuterol/ Ipratropium (Duoneb) 3 ml DAILY NEB Last administered on 03/12/18at 11:17; Start 02/10/18 at 09:00 Lactobacillus Rhamnosus (Culturelle) 1 cap BID PO Last administered on at 09:03; Start 02/10/18 at 09:00; Stop 02/22/18 at 18:00; Status DC Potassium Chloride (Klor-Con) 40 meq BIDWMEALS PO Last administered on at 17:13; Start 02/10/18 at 08:00 Amantadine HCl (Symmetrel) 100 mg BID PO Last administered on 02/26/18 08:21; Start 02/10/18 at 09:00; Stop 02/26/18 at 11:24; Status DC Buspirone HCl (Buspar) 10 mg 1300,1700 PO Last administered on 03/12/18at 17:13 ; Start 02/10/18 at 13:00 Buspirone HCl (Buspar) 20 mg DAILY PO Last administered on 03/12/18at 07:48; Start 02/10/18 at 09:00 Clonazepam (KlonoPIN) 1 mg TID PO Last administered on 03/09/18at 13:53; Start 02/10/18 at 09:00; Stop 03/09/18 at 18:43; Status DC Diltiazem HCl (Cardizem 24hr Cd) 120 mg DAILY PO Last administered on at 07:46; Start 02/10/18 at 09:00 Furosemide (Lasix) 80 mg BID92 PO Last administered on 03/12/18at 12:03; Start 02/10/18 at 09:00 Haloperidol (Haldol) 7.5 mg DAILY PO Last administered on 02/19/18at 09:05; Start 02/10/18 at 09:00; Stop 02/19/18 at 18:16; Status DC Non-Formulary Medication (Haloperidol Decanoate (Haldol Decanoate 100)) 450 mg Q4WK IM ; Start 02/10/18 at 09:00; Stop 02/10/18 at 16:12; Status DC Non-Formulary Medication (Insulin Aspart (Novolog Flexpen)) see protocol TIDWMEALS SQ ; Start 02/10/18 at 08:00; Status UNV Magnesium Oxide (Magnesium Oxide) 400 mg BID PO Last administered on at 20:42; Start 02/10/18 at 09:00 Metformin HCl (Glucophage) 500 mg BIDWMEALS PO Last administered on 03/12/18at 17:13; Start 02/10/18 at 08:00 Metolazone (Zaroxolyn) 5 mg DAILY PO Last administered on 03/12/18at 07:51; Start 02/10/18 at 09:00 Mirtazapine (Remeron) 15 mg QHS PO Last administered on 03/12/18at 20:42; Start 02/10/18 at 21:00 Pioglitazone HCl (Actos) 15 mg DAILY PO Last administered on 03/12/18at 07:46; Start 02/10/18 at 09:00 Trazodone HCl (Desyrel) 25 mg TID@0900,1300,1700 PO Last administered on at 17:13; Start 02/10/18 at 09:00 Valproic Acid (Depakene) 750 mg TID PO Last administered on 02/17/18at 21:01; Start 02/10/18 at 09:00; Stop 02/18/18 at 08:06; Status DC Insulin Human Lispro (HumaLOG) 0-9 UNITS TIDWMEALS SQ Last administered on at 17:35; Start 02/10/18 at 08:00 Dextrose 12.5 gm PRN Q15MIN PRN IV SEE COMMENTS; Start 02/10/18 at 06:30 Olanzapine (ZyPREXA ZYDIS) 5 mg PRN Q2HR PRN PO PSYCHOSIS Last administered on 03/02/18at 12:27; Start 02/10/18 at 06:45 Haloperidol Decanoate (Haldol Decanoate Im Extended Release) 450 mg Q4WK IM Last administered on 03/10/18at 08:50; Start 03/10/18 at 09:00 Trazodone HCl (Desyrel) 25 mg STK-MED ONCE .ROUTE ; Start 02/10/18 at 09:00; Stop 02/11/18 at 10:03; Status DC Trazodone HCl (Desyrel) 25 mg STK-MED ONCE .ROUTE ; Start 02/10/18 at 09:00; Stop 02/11/18 at 10:03; Status DC Trazodone HCl (Desyrel) 25 mg STK-MED ONCE .ROUTE ; Start 02/10/18 at 09:00; Stop 02/11/18 at 10:03; Status DC Trazodone HCl (Desyrel) 25 mg STK-MED ONCE .ROUTE ; Start 02/11/18 at 09:00; Stop 02/11/18 at 10:04; Status DC Clozapine (Clozaril) 25 mg HS PO Last administered on 02/16/18at 21:13; Start at 21:00; Stop 02/17/18 at 17:40; Status DC Nystatin (Nystop) 1 guanaco BID TP Last administered on 03/12/18at 07:53; Start at 09:00 Trazodone HCl (Desyrel) 100 mg PRN QHS PRN PO INSOMNIA, MAY REPEAT X1; Start at 17:00; Stop 02/16/18 at 22:42; Status DC Trazodone HCl (Desyrel) 100 mg QHS PO Last administered on 03/12/18at 20:42; Start 02/16/18 at 23:00 Trazodone HCl (Desyrel) 100 mg PRN QHS PRN PO insomnia Last administered on at 19:46; Start 02/16/18 at 22:45 Clozapine (Clozaril) 50 mg HS PO Last administered on 02/23/18at 19:21; Start at 21:00; Stop 02/24/18 at 16:13; Status DC Divalproex Sodium (Depakote Sprinkles) 750 mg TID PO Last administered on 03/12at 20:42; Start 02/18/18 at 09:00 Haloperidol (Haldol) 5 mg DAILY PO Last administered on 03/03/18at 09:32; Start 02/20/18 at 09:00; Stop 03/03/18 at 16:23; Status DC Clozapine (Clozaril) 75 mg HS PO Last administered on 03/02/18at 19:49; Start 02/24/18 at 21:00; Stop 03/03/18 at 16:23; Status DC Clozapine (Clozaril) 100 mg HS PO ; Start 03/03/18 at 16:30; Stop 03/03/18 at 17 :06; Status DC Clozapine (Clozaril) 100 mg HS PO Last administered on 03/10/18at 20:52; Start 03/03/18 at 21:00; Stop 03/10/18 at 22:18; Status DC Sodium Chloride 500 ml @ 0 mls/hr 1X ONCE IV Last administered on 03/08/18at 13:00; Start 03/08/18 at 13:00; Stop 03/08/18 at 13:01; Status DC Sodium Chloride 500 ml @ 125 mls/hr 1X ONCE IV Last administered on at 14:30; Start 03/08/18 at 15:15; Stop 03/08/18 at 19:14; Status DC Clonazepam (KlonoPIN) 1 mg 1200,1700 PO Last administered on 03/12/18at 17:13; Start 03/10/18 at 12:00 Clonazepam (KlonoPIN) 0.5 mg DAILY PO Last administered on 03/12/18at 07:50; Start 03/10/18 at 09:00 Nystatin (Mycostatin) 5 ml QID SWSW Last administered on 03/12/18at 17:22; Start 03/10/18 at 13:00 Clozapine (Clozaril) 125 mg HS PO Last administered on 03/12/18at 20:46; Start 03/11/18 at 21:00 Active Scripts Active Reported Duoneb 0.5-3(2.5) Mg/3 Ml (Albuterol/Ipratropium) 3 Ml Ampul.neb 3 Ml NEB DAILY Zyprexa Zydis (Olanzapine) 5 Mg Tab.rapdis 5 Mg PO PRN Q2HR PRN Buspirone Hcl 10 Mg Tablet 10 Mg PO BID@1300,1700 Valproic Acid (Valproate Sodium) 250 Mg/5 Ml Solution 750 Mg PO TID Novolog Flexpen (Insulin Aspart) 100 Unit/1 Ml Insuln.pen 0-9 Unit SQ TIDWMEALS <70 follow hypoglycemic protocol 70-150 0units if eating/ 0 if not eating 151-200 4 units if eating/ 0 units if not eating 201-250 5 units if eating/ 3 units if not eating 251-300 7 units if eating/ 4 units if not eating 301-350 9 units if eating/ 5 units if not eating > 351 Call Physician for futher orders Trazodone Hcl 100 Mg Tablet 200 Mg PO PRN QHS PRN Trazodone Hcl 50 Mg Tablet 25 Mg PO TID@0900,1300,1700 Culturelle (Lactobacillus Rhamnosus Gg) 1 Each Cap.sprink 1 Each PO BID Haloperidol 5 Mg Tablet 7.5 Mg PO DAILY Tylenol (Acetaminophen) 325 Mg Tablet 650 Mg PO PRN Q6HRS PRN Buspirone Hcl 10 Mg Tablet 20 Mg PO DAILY Theophylline Anhydrous 200 Mg Tab.er.12h 200 Mg PO BID Metolazone 5 Mg Tablet 5 Mg PO DAILY Metformin Hcl 500 Mg Tablet 500 Mg PO BIDWMEALS Cardizem Tablet (Diltiazem Hcl) 120 Mg Tablet 120 Mg PO DAILY Amantadine (Amantadine Hcl) 100 Mg Tablet 100 Mg PO BID Actos (Pioglitazone Hcl) 15 Mg Tablet 15 Mg PO DAILY Mirtazapine 15 Mg Tablet 15 Mg PO QHS Haldol Decanoate 100 (Haloperidol Decanoate) 100 Mg/1 Ml Ampul 450 Mg IM Q4WK Klor-Con M20 (Potassium Chloride) 20 Meq Tab.er.prt 40 Meq PO BIDWMEALS Analgesic Kane (Methyl Salicylate/Menthol) 28 Gm Oint...g. 1 Guanaco TP PRN QID PRN Magnesium Oxide 400 Mg Tablet 400 Mg PO BID Milk Of Magnesia (Magnesium Hydroxide) 2,400 Mg/10 Ml Oral.susp 2,400 Mg PO PRN QHS PRN Maalox Advanced Suspension (Mag Hydrox/Aluminum Hyd/Simeth) 355 Ml Oral.susp 15 Ml PO PRN AFTMEALHC PRN D3-50 (Cholecalciferol (Vitamin D3)) 50,000 Unit Capsule 50,000 Unit PO QTH Clonazepam 1 Mg Tablet 1 Mg PO TID Furosemide 40 Mg Tablet 80 Mg PO [id number] Hold for SBP less than 100. After held dose, reassess in 2 hours. If SBP is above threshold, administer dose as ordered. If SBP is below threshold, contact provider for additional instructions. I have reviewed the current psychotropics carefully including drug interactions. Risk benefit ratio favors no change other than as noted in my dictated progress note. Diagnosis: Problems: (1) Depression (2) Schizoaffective disorder (3) Anxiety disorder (4) Impulse control disorder (5) Schizoaffective disorder, chronic condition with acute exacerbation KALIN STARKS MD Mar 12, 2018 23:26
--- NOTE | 2018-03-13 02:47 | PN ---
DATE: 03/11/2018 This is a late entry, 03/11, covers elements not covered in my initial note. SUBJECTIVE: I met with the patient in the evening. The patient slept just maybe half hour or none at all the previous night. She has described this to nursing staff as being a "pistol." This refers to that she could be quite abrasive, labile, somewhat loud. Despite this as compared to prior to starting Clozaril, she is better. It takes about half hour of perseverance by nursing staff to administer her medications. At lunchtime, she was somewhat aggressive, hitting out other patient. REVIEW OF SYSTEMS: Ambulation impaired with walker. No CV, , pulmonary, eye, ENT system symptoms on review. She has vague somatic symptoms. MENTAL STATUS EXAM: Oriented to herself and situation. Speech coherent, can be rapid, loud at times. Abstraction fair. Computation, unable to do serial 7's. Attention span short. Language function intact. Mood and affect remain somewhat labile, but improved. No active suicidal or homicidal ideation. LABORATORY DATA: Reviewed. CBC, ANC unremarkable. IMPRESSION: Schizoaffective disorder, bipolar type, mixed with psychotic features, in partial remission; anxiety disorder, unspecified; impulse control disorder, unspecified; cognitive disorder, unspecified. PLAN: Clozaril has been increased to 125 mg p.o. at bedtime. She is on trazodone 100 mg at bedtime, may repeat x 1 for insomnia along with BuSpar, Haldol Decanoate, Remeron, Klonopin, the scheduled trazodone during the day, Depakote 750 t.i.d. with a therapeutic blood level. We have been tapering her Klonopin and will continue to do this and adjust further as clinically indicated. KALIN STARKS MD DR: TRACIE/karli JOB#: [id number] / [id number]
[2018-03-13 06:00] VITALS: BP 131/75
[2018-03-13] MEDS: INSULIN LISPRO 300 UNITS/3 ML INSULN.PEN. SQ SCH ×3 (08:00→16:32)
[2018-03-13] MEDS: POTASSIUM CHLORIDE 20 MEQ TABLET.ER. PO SCH ×2 (08:19→16:29)
[2018-03-13] MEDS: busPIRone 10 MG TABLET. PO SCH ×4 (08:19→16:29)
[2018-03-13] MEDS: PIOGLITAZONE 15 MG TABLET. PO SCH (08:19)
[2018-03-13] MEDS: metFORMIN 500 MG TABLET PO SCH ×2 (08:20→16:30)
[2018-03-13] MEDS: traZODone 50 MG TABLET. PO SCH ×4 (08:20→16:30)
[2018-03-13] MEDS: MAGNESIUM OXIDE 400 MG TABLET PO SCH ×2 (08:20→20:56)
[2018-03-13] MEDS: FUROSEMIDE 80 MG TABLET PO SCH ×2 (08:21→13:59)
[2018-03-13] MEDS: DIVALPROEX 125 MG CAP.SPRINK PO SCH ×3 (08:21→20:56)
[2018-03-13] MEDS: clonazePAM 0.5 MG TABLET PO SCH (08:26)
[2018-03-13] MEDS: NYSTATIN TOPICAL POWDER 15GM BOTTLE. TP SCH ×2 (09:00→20:58)
[2018-03-13] MEDS: NYSTATIN 100,000 UNITS/ML ORAL SUSPENSION 60ML BOTTLE. SWSW SCH ×4 (09:00→20:58)
[2018-03-13] MEDS: metOLazone 5 MG TABLET PO SCH (09:00)
[2018-03-13] MEDS: IPRATRPIUM/ALBUTEROL 0.5/2.5MG 3 ML NEBU. NEB SCH (09:43)
[2018-03-13] MEDS: clonazePAM 1 MG TABLET PO SCH ×3 (11:45→16:30)
[2018-03-13 16:17] VITALS: BP 123/60
[2018-03-13] MEDS: CHOLECALCIFEROL (VITAMIN D3) 50,000 UNIT CAPSULE PO SCH (16:29)
[2018-03-13] MEDS: cloZAPine 100 MG TABLET PO SCH (20:55)
[2018-03-13] MEDS: MIRTAZAPINE 15 MG TABLET PO SCH (20:56)
[2018-03-13] MEDS: traZODone 100 MG TABLET. PO SCH (20:56)
--- NOTE | 2018-03-14 00:16 | PN ---
DATE: 03/12/2018 PSYCHIATRIC PROGRESS NOTE This late entry 03/12/2018 covers elements not covered in my initial note. SUBJECTIVE: I met with the patient in the evening. The patient slept 5-3/4 hours previous night. She continues to argue with staff and yells out. Remains paranoid, psychotic with mood lability even though the latter is frequently better than before, but persists and is problematic. REVIEW OF SYSTEMS: Ambulation impaired with walker. No CV, , pulmonary, eye, ENT system symptoms on review. MENTAL STATUS EXAM: Oriented to herself and situation. Speech has some latency, coherent, can be rapid at times. Abstraction fair. Computation, unable to do serial 7's. Attention span short, unable to remember any of 3 objects at 3 minutes, but part of this is due to noncompliance other than memory deficits. Remains somewhat paranoid. No active suicidal or homicidal ideation. LABORATORY DATA: Reviewed. IMPRESSION: Schizoaffective disorder, bipolar type, mixed with psychotic features; anxiety disorder, unspecified; cognitive disorder, unspecified. PLAN: No change from initial note. We will continue to increase the Clozaril gradually as tolerated and hopefully be able to reduce her Haldol Decanoate. Valproic acid level remains therapeutic. We will maintain Depakote at current dosage and the rest of the psychotropics per initial note. At some point, I would like to reduce the Klonopin scheduled during the day and trazodone scheduled during the day as well. KALIN STARKS MD DR: TRACIE/karli JOB#: [id number] / [id number]
[2018-03-14 06:30] VITALS: BP 115/78
[2018-03-14] MEDS: MAGNESIUM OXIDE 400 MG TABLET PO SCH ×2 (08:13→19:42)
[2018-03-14] MEDS: metFORMIN 500 MG TABLET PO SCH ×2 (08:14→16:30)
[2018-03-14] MEDS: POTASSIUM CHLORIDE 20 MEQ TABLET.ER. PO SCH ×2 (08:14→16:29)
[2018-03-14] MEDS: PIOGLITAZONE 15 MG TABLET. PO SCH (08:15)
[2018-03-14] MEDS: busPIRone 10 MG TABLET. PO SCH ×3 (08:15→16:29)
[2018-03-14] MEDS: FUROSEMIDE 80 MG TABLET PO SCH ×2 (08:15→12:25)
[2018-03-14] MEDS: DIVALPROEX 125 MG CAP.SPRINK PO SCH ×3 (08:16→19:43)
[2018-03-14] MEDS: traZODone 50 MG TABLET. PO SCH ×3 (08:16→16:29)
[2018-03-14] MEDS: clonazePAM 0.5 MG TABLET PO SCH (08:18)
[2018-03-14] MEDS: NYSTATIN TOPICAL POWDER 15GM BOTTLE. TP SCH ×2 (08:19→19:45)
[2018-03-14] MEDS: metOLazone 5 MG TABLET PO SCH (08:19)
[2018-03-14] MEDS: INSULIN LISPRO 300 UNITS/3 ML INSULN.PEN. SQ SCH ×3 (08:21→16:50)
[2018-03-14] MEDS: NYSTATIN 100,000 UNITS/ML ORAL SUSPENSION 60ML BOTTLE. SWSW SCH ×4 (08:22→19:43)
[2018-03-14] MEDS: IPRATRPIUM/ALBUTEROL 0.5/2.5MG 3 ML NEBU. NEB SCH (10:59)
[2018-03-14] MEDS: clonazePAM 1 MG TABLET PO SCH ×2 (12:26→16:30)
[2018-03-14 16:00] VITALS: BP 136/85
[2018-03-14] MEDS: cloZAPine 100 MG TABLET PO SCH (19:42)
[2018-03-14] MEDS: MIRTAZAPINE 15 MG TABLET PO SCH (19:42)
[2018-03-14] MEDS: traZODone 100 MG TABLET. PO SCH (19:42)
[2018-03-15 06:48] VITALS: BP 119/80
[2018-03-15] MEDS: INSULIN LISPRO 300 UNITS/3 ML INSULN.PEN. SQ SCH ×4 (08:00→17:00)
[2018-03-15] MEDS: NYSTATIN 100,000 UNITS/ML ORAL SUSPENSION 60ML BOTTLE. SWSW SCH ×5 (09:00→19:36)
[2018-03-15] MEDS: metFORMIN 500 MG TABLET PO SCH ×2 (09:30→17:00)
[2018-03-15] MEDS: POTASSIUM CHLORIDE 20 MEQ TABLET.ER. PO SCH ×2 (09:31→17:00)
[2018-03-15] MEDS: PIOGLITAZONE 15 MG TABLET. PO SCH (09:33)
[2018-03-15] MEDS: busPIRone 10 MG TABLET. PO SCH ×3 (09:33→17:00)
[2018-03-15] MEDS: DIVALPROEX 125 MG CAP.SPRINK PO SCH ×3 (09:34→19:28)
[2018-03-15] MEDS: FUROSEMIDE 80 MG TABLET PO SCH ×2 (09:35→12:54)
[2018-03-15] MEDS: traZODone 50 MG TABLET. PO SCH ×3 (09:35→17:00)
[2018-03-15] MEDS: NYSTATIN TOPICAL POWDER 15GM BOTTLE. TP SCH ×2 (09:36→19:37)
[2018-03-15] MEDS: MAGNESIUM OXIDE 400 MG TABLET PO SCH ×2 (09:36→19:27)
[2018-03-15] MEDS: metOLazone 5 MG TABLET PO SCH (09:37)
[2018-03-15] MEDS: clonazePAM 0.5 MG TABLET PO SCH (09:38)
[2018-03-15] MEDS: IPRATRPIUM/ALBUTEROL 0.5/2.5MG 3 ML NEBU. NEB SCH (09:44)
[2018-03-15] MEDS: clonazePAM 1 MG TABLET PO SCH ×2 (12:51→17:00)
[2018-03-15 16:10] VITALS: BP 104/67
[2018-03-15] MEDS: MIRTAZAPINE 15 MG TABLET PO SCH (19:27)
[2018-03-15] MEDS: traZODone 100 MG TABLET. PO SCH (19:28)
[2018-03-15] MEDS: cloZAPine 100 MG TABLET PO SCH (19:29)
--- NOTE | 2018-03-15 20:53 | PN ---
DATE: 03/15/2018 SUBJECTIVE: The patient was seen today, met with the staff, chart reviewed and also covering for Dr. Feliz. The patient is able to walk with a walker, withdrawn. The patient is very fearful and having difficulty with breathing, walks very slow, has severe COPD and shortness of breath. The patient also at times confused, constantly seeking reassurance, also fearful. The patient states that she was afraid of another resident, male, but staff reports there was no major issues there because usually stays in his room. OBSERVATION: VITAL SIGNS: Temperature 97.2, blood pressure 119/80, pulse 78, respiration 20, O2 sat is 98%. GENERAL: Slept only about 3 hours last night. The patient is not having any side effects to the medications. The patient's labs reviewed. The patient's blood sugar is elevated. The patient's BUN was 53, creatinine 1.7. MEDICATIONS: The patient's current medications include clozapine 125 mg at night, clonazepam 1 mg b.i.d. and also 0.5 mg daily, Haldol 450 mg IM q. 4 weeks, Depakote 750 mg t.i.d., trazodone 100 mg at night, olanzapine 15 mg at night, BuSpar 10 mg t.i.d. ASSESSMENT: 1. Schizoaffective disorder, bipolar type, mixed. 2. Major neurocognitive disorder most likely Alzheimer's. PLAN: Continue with the current treatment protocol, also check the patient's CPK. COY KELLEY MD DR: KILEY/karli JOB#: [id number] / [id number]
[2018-03-16 06:33] VITALS: BP 95/8
[2018-03-16 06:37] LABS: BASO # 0.1 x10^3/uL (0.0-0.2); BASO % 1 % (0-3); EOS % 0 % (0-3); HEMATOCRIT 35.9 % (36.0-47.0); HEMOGLOBIN 11.4 g/dL (12.0-15.5); LYMPH # 1.7 x10^3/uL (1.0-4.8); LYMPH % 26 % (24-48); MEAN CORPUSCULAR HEMOGLOBIN 28 pg (25-35); MEAN CORPUSCULAR HGB CONC 32 g/dL (31-37); MEAN CORPUSCULAR VOLUME 88 fL (79-100); MONO # 0.7 x10^3/uL (0.0-1.1); MONO % 11 % (0-9); NEUT % 61 % (31-73); PLATELET COUNT 162 x10^3/uL (140-400); RED BLOOD COUNT 4.07 x10^6/uL (3.50-5.40); RED CELL DISTRIBUTION WIDTH 16.8 % (11.5-14.5); WHITE BLOOD COUNT 6.6 x10^3/uL (4.0-11.0)
[2018-03-16 06:55] LABS: ALBUMIN 2.7 g/dL (3.4-5.0); ALBUMIN/GLOBULIN RATIO 0.5 (1.0-1.7); CALCIUM 9.7 mg/dL (8.5-10.1); CREATININE 1.4 mg/dL (0.6-1.0); POTASSIUM 3.4 mmol/L (3.5-5.1); TOTAL BILIRUBIN 0.2 mg/dL (0.2-1.0); TOTAL PROTEIN 7.9 g/dL (6.4-8.2)
[2018-03-16] MEDS: INSULIN LISPRO 300 UNITS/3 ML INSULN.PEN. SQ SCH ×3 (07:57→17:38)
[2018-03-16] MEDS: IPRATRPIUM/ALBUTEROL 0.5/2.5MG 3 ML NEBU. NEB SCH (09:00)
[2018-03-16] MEDS: metFORMIN 500 MG TABLET PO SCH ×2 (09:34→17:46)
[2018-03-16] MEDS: POTASSIUM CHLORIDE 20 MEQ TABLET.ER. PO SCH ×2 (09:35→17:47)
[2018-03-16] MEDS: PIOGLITAZONE 15 MG TABLET. PO SCH (09:35)
[2018-03-16] MEDS: busPIRone 10 MG TABLET. PO SCH ×3 (09:35→17:45)
[2018-03-16] MEDS: traZODone 50 MG TABLET. PO SCH ×3 (09:36→17:46)
[2018-03-16] MEDS: MAGNESIUM OXIDE 400 MG TABLET PO SCH ×2 (09:36→20:14)
[2018-03-16] MEDS: DIVALPROEX 125 MG CAP.SPRINK PO SCH ×3 (09:36→20:14)
[2018-03-16] MEDS: FUROSEMIDE 80 MG TABLET PO SCH ×2 (09:36→14:00)
[2018-03-16] MEDS: metOLazone 5 MG TABLET PO SCH (09:37)
[2018-03-16] MEDS: clonazePAM 0.5 MG TABLET PO SCH (09:38)
[2018-03-16] MEDS: NYSTATIN TOPICAL POWDER 15GM BOTTLE. TP SCH ×2 (09:38→20:15)
[2018-03-16] MEDS: NYSTATIN 100,000 UNITS/ML ORAL SUSPENSION 60ML BOTTLE. SWSW SCH ×4 (09:38→20:15)
[2018-03-16] MEDS: clonazePAM 1 MG TABLET PO SCH ×2 (12:00→17:46)
[2018-03-16 16:50] VITALS: BP 158/74
[2018-03-16] MEDS: cloZAPine 100 MG TABLET PO SCH (20:13)
[2018-03-16] MEDS: traZODone 100 MG TABLET. PO SCH (20:14)
[2018-03-16] MEDS: MIRTAZAPINE 15 MG TABLET PO SCH (20:14)
--- NOTE | 2018-03-16 20:18 | PN ---
DATE: 03/13/2018 PSYCHIATRIC PROGRESS NOTE This late entry 03/13/2018 covers elements not covered in my initial note. SUBJECTIVE: I met with the patient in the evening, staffed at a treatment team meeting with the entire team in the morning. The patient slept 6-1/2 hours previous evening. She remained quite irritable, loud, specifically regarding medication administration. She is still somewhat paranoid, but better than before. She has been accepted at the [facility] nursing [facility], but I would like to stabilize her better on her Clozaril before the transition. Otherwise, she is more than likely to fail this quite quickly. REVIEW OF SYSTEMS: Ambulation impaired with walker. No CV, , pulmonary, eye, ENT system symptoms on review. Reliability poor. MENTAL STATUS EXAM: Oriented to herself and situation. Speech is coherent at times, somewhat pressured. Abstraction fair, computation impaired, language function intact, attention span short. Mood and affect remain somewhat labile, but better than before. LABORATORY DATA: Reviewed. IMPRESSION: Schizoaffective disorder, bipolar type, mixed with psychotic features, in partial remission; anxiety disorder, unspecified; impulse control disorder, unspecified. PLAN: Continue psychotropics from initial note. Clozaril is being increased gradually and we checked CBC, absolute neutrophil count again on Saturday03/17/2018 and increase it further. For now, continue 125 mg at bedtime together with Depakote, BuSpar, Haldol Decanoate, Remeron. Scheduled Klonopin, trazodone, Depakote, and trazodone at night. I have stopped the oral Haldol and depending on how she does on the Clozaril, we will reduce the daytime, trazodone and Klonopin as well. Absolute neutrophil count at last check 03/10/2018 was 4288. KALIN STARKS MD DR: TRACIE/karli JOB#: [id number] / [id number]
[2018-03-17 06:30] VITALS: BP 100/60
[2018-03-17] MEDS: INSULIN LISPRO 300 UNITS/3 ML INSULN.PEN. SQ SCH ×3 (08:00→17:21)
[2018-03-17 08:18] LABS: BASO % 1 % (0-3); EOS # 0.1 x10^3/uL (0.0-0.7); EOS % 1 % (0-3); HEMATOCRIT 38.3 % (36.0-47.0); HEMOGLOBIN 12.2 g/dL (12.0-15.5); LYMPH # 1.9 x10^3/uL (1.0-4.8); LYMPH % 29 % (24-48); MEAN CORPUSCULAR HEMOGLOBIN 29 pg (25-35); MEAN CORPUSCULAR HGB CONC 32 g/dL (31-37); MEAN CORPUSCULAR VOLUME 90 fL (79-100); MONO # 0.7 x10^3/uL (0.0-1.1); MONO % 11 % (0-9); NEUT % 59 % (31-73); PLATELET COUNT 165 x10^3/uL (140-400); RED BLOOD COUNT 4.27 x10^6/uL (3.50-5.40); RED CELL DISTRIBUTION WIDTH 16.4 % (11.5-14.5); WHITE BLOOD COUNT 6.7 x10^3/uL (4.0-11.0)
[2018-03-17 08:24] LABS: ALBUMIN 2.9 g/dL (3.4-5.0); ALBUMIN/GLOBULIN RATIO 0.5 (1.0-1.7); CALCIUM 9.9 mg/dL (8.5-10.1); CREATININE 1.5 mg/dL (0.6-1.0); GFR 42.4; POTASSIUM 3.8 mmol/L (3.5-5.1); TOTAL BILIRUBIN 0.2 mg/dL (0.2-1.0); TOTAL PROTEIN 8.5 g/dL (6.4-8.2)
[2018-03-17] MEDS: POTASSIUM CHLORIDE 20 MEQ TABLET.ER. PO SCH ×2 (08:35→17:00)
[2018-03-17] MEDS: metFORMIN 500 MG TABLET PO SCH ×2 (08:35→17:00)
[2018-03-17] MEDS: traZODone 50 MG TABLET. PO SCH ×3 (08:36→17:00)
[2018-03-17] MEDS: busPIRone 10 MG TABLET. PO SCH ×3 (08:36→17:00)
[2018-03-17] MEDS: PIOGLITAZONE 15 MG TABLET. PO SCH (08:36)
[2018-03-17] MEDS: DIVALPROEX 125 MG CAP.SPRINK PO SCH ×3 (08:36→20:08)
[2018-03-17] MEDS: clonazePAM 0.5 MG TABLET PO SCH (08:37)
[2018-03-17] MEDS: NYSTATIN TOPICAL POWDER 15GM BOTTLE. TP SCH ×2 (08:39→20:11)
[2018-03-17] MEDS: MAGNESIUM OXIDE 400 MG TABLET PO SCH ×2 (08:39→20:09)
[2018-03-17] MEDS: NYSTATIN 100,000 UNITS/ML ORAL SUSPENSION 60ML BOTTLE. SWSW SCH ×4 (08:39→20:09)
[2018-03-17] MEDS: metOLazone 5 MG TABLET PO SCH (09:00)
[2018-03-17] MEDS: FUROSEMIDE 80 MG TABLET PO SCH ×2 (09:00→14:00)
[2018-03-17 09:06] LABS: % BANDS 1 % (0-9); % EOS 1 % (0-5); % LYMPHS 29 % (24-48); % MONOS 7 % (0-10); % MYELOS 1 % (0-0); % SEGS 60 % (35-66)
[2018-03-17 09:07] LABS: PLT ESTIMATE ADEQUATE (ADEQUATE); POLYCHROMASIA PRESENT; TOXIC GRANULATION PRESENT
[2018-03-17 09:08] LABS: % ATYL 1 % (0-0)
[2018-03-17] MEDS: IPRATRPIUM/ALBUTEROL 0.5/2.5MG 3 ML NEBU. NEB SCH (10:34)
[2018-03-17] MEDS: clonazePAM 1 MG TABLET PO SCH ×2 (13:29→17:00)
[2018-03-17 16:37] VITALS: BP 119/62
[2018-03-17] MEDS: cloZAPine 100 MG TABLET PO SCH (20:08)
[2018-03-17] MEDS: traZODone 100 MG TABLET. PO SCH (20:08)
[2018-03-17] MEDS: MIRTAZAPINE 15 MG TABLET PO SCH (20:09)
[2018-03-17] MEDS: CEFPODOXIME PROXETIL 100 MG TABLET PO SCH (20:10)
--- NOTE | 2018-03-17 21:12 | PN ---
DATE: 03/14/2018 This is a late entry 03/14/2018 covers elements not covered in my initial note. SUBJECTIVE: I met with the patient in the morning. Per nursing report, the patient slept 6 hours previous night. She has been taking her medications and yogurt, but otherwise resist that. She is coming out to groups a little bit more, which in itself is an improvement. She still has mood lability, anxiety, paranoia, but showing some improvement. REVIEW OF SYSTEMS: Ambulation impaired with walker. No CV, , pulmonary, eye, ENT system symptoms on review. Reliability varies. MENTAL STATUS EXAM: Oriented to herself and situation. Speech coherent, less pressured. Abstraction fair. Computation impaired, unable to do serial 7's, remembers 0 of 3 objects at 3 minutes, but part of this is due to her distractibility. The patient remains somewhat paranoid. No suicidal or homicidal ideation. LABORATORY DATA: Reviewed. IMPRESSION: Schizoaffective disorder, bipolar type, mixed with psychotic features, in partial remission; anxiety disorder, unspecified; cognitive disorder, unspecified. PLAN: Continue current psychotropics including Clozaril 125 mg p.o. at bedtime. We will check CBC, absolute neutrophil count Saturday03/17/2018 and then increase it further. She is also on scheduled trazodone and Klonopin during the day, BuSpar, Haldol Decanoate 450 mg IM every 28 days, Remeron 15 mg at bedtime, Depakote Sprinkles 750 t.i.d. level therapeutic at 58, trazodone 100 mg at bedtime, may repeat x [address] Godoy will resume care for the patient during my absence over the weekend. MAN Mary STARKS MD DR: TRACIE/karli JOB#: [id number] / [id number]
[2018-03-18 05:48] VITALS: BP 148/87
[2018-03-18] MEDS: POTASSIUM CHLORIDE 20 MEQ TABLET.ER. PO SCH ×2 (08:43→17:18)
[2018-03-18] MEDS: metFORMIN 500 MG TABLET PO SCH ×2 (08:43→17:18)
[2018-03-18] MEDS: PIOGLITAZONE 15 MG TABLET. PO SCH (08:44)
[2018-03-18] MEDS: busPIRone 10 MG TABLET. PO SCH ×3 (08:44→17:17)
[2018-03-18] MEDS: DIVALPROEX 125 MG CAP.SPRINK PO SCH ×3 (08:46→19:42)
[2018-03-18] MEDS: FUROSEMIDE 80 MG TABLET PO SCH ×2 (08:48→12:16)
[2018-03-18] MEDS: clonazePAM 0.5 MG TABLET PO SCH (08:48)
[2018-03-18] MEDS: CEFPODOXIME PROXETIL 100 MG TABLET PO SCH ×2 (08:48→19:42)
[2018-03-18] MEDS: MAGNESIUM OXIDE 400 MG TABLET PO SCH ×2 (08:48→19:42)
[2018-03-18] MEDS: traZODone 50 MG TABLET. PO SCH ×3 (08:48→17:17)
[2018-03-18] MEDS: NYSTATIN TOPICAL POWDER 15GM BOTTLE. TP SCH ×2 (08:49→19:43)
[2018-03-18] MEDS: NYSTATIN 100,000 UNITS/ML ORAL SUSPENSION 60ML BOTTLE. SWSW SCH ×4 (08:49→19:43)
[2018-03-18] MEDS: metOLazone 5 MG TABLET PO SCH (08:51)
[2018-03-18] MEDS: INSULIN LISPRO 300 UNITS/3 ML INSULN.PEN. SQ SCH ×3 (08:54→17:00)
[2018-03-18] MEDS: IPRATRPIUM/ALBUTEROL 0.5/2.5MG 3 ML NEBU. NEB SCH (09:00)
--- NOTE | 2018-03-18 10:53 | PDOC ---
Exam Note: Napoleon Note: Please also refer to the separate dictated note~for this date of service dictated separately.~Patient seen individually. Discussed the patient with Nursing staff reviewed the chart.~Reviewed interim history and current functioning. Reviewed vital signs,~Labs/ Radiology~and current medications noted below. Continue current treatment with the changes noted in the dictated addendum note. This is a late entry for 03/17/2018 Assessment: Vital Signs: VS - Last 72 Hours, by Label Date Time Temp Pulse Resp B/P (MAP) Pulse Ox O2 Delivery O2 Flow Rate FiO2 03/18/18 08:45 72 148/87 03/18/18 05:48 96.5 72 18 148/87 (107) 97 03/17/18 16:37 97.5 85 20 119/62 (81) 96 Room Air 03/17/18 10:34 96 Room Air 03/17/18 06:30 97.8 72 18 100/60 (73) 95 Nasal Cannula 3.0 03/16/18 16:50 97.3 88 16 158/74 (102) 90 03/16/18 10:06 94 Room Air 03/16/18 06:33 97.2 79 20 95/8 (37) 93 Room Air 3.0 03/15/18 16:10 97.6 79 18 104/67 (79) 91 Room Air Vital Signs Date Time Temp Pulse Resp B/P (MAP) Pulse Ox O2 Delivery O2 Flow Rate FiO2 03/18/18 08:45 72 148/87 03/18/18 05:48 96.5 18 97 03/17/18 16:37 Room Air 03/17/18 06:30 3.0 I&O Intake and Output 03/18/18 07:00 Intake Total 1320 ml Balance 1320 ml Intake Oral 1320 ml Labs: Laboratory Tests Test 03/17/18 11:43 03/17/18 16:57 03/17/18 19:25 Glucose (Fingerstick) 225 mg/dL (70-99) H 259 mg/dL (70-99) H 174 mg/dL (70-99) H Current Medications: Meds: Current Medications Lorazepam (Ativan) 2 mg 1X ONCE IM ; Start 02/10/18 at 04:00; Stop 02/10/18 at 04:01; Status DC Diphenhydramine HCl (Benadryl) 50 mg 1X ONCE IM ; Start 02/10/18 at 04:00; Stop 02/10/18 at 04:01; Status DC Ziprasidone (Geodon Im) 20 mg 1X ONCE IM ; Start 02/10/18 at 04:00; Stop at 04:01; Status DC Multivitamins/ Minerals 10 ml/ Folic Acid 1 mg/ Thiamine HCl 100 mg/Lactated Ringer's 1,011.1 ml @ 1,000 mls/ hr 1X ONCE IV ; Start 02/10/18 at 03:45; Stop 02/10/18 at 04:45; Status DC Magnesium Hydroxide (Milk Of Magnesia) 2,400 mg 1X ONCE PO ; Start 02/10/18 at 05:30; Stop 02/10/18 at 05:32; Status DC Potassium Chloride (KCl Oral Soln) 40 meq 1X ONCE PO ; Start 02/10/18 at 05:30 ; Stop 02/10/18 at 05:32; Status DC Acetaminophen (Tylenol) 650 mg PRN Q6HRS PRN PO PAIN / TEMP Last administered on 02/23/18at 12:43; Start 02/10/18 at 06:15 Multi-Ingredient Ointment (Analgesic [place]) 1 guanaco PRN QID PRN TP MUSCLE PAIN; Start 02/10/18 at 06:15 Al Hydroxide/Mg Hydroxide (Mylanta Plus Xs) 15 ml PRN AFTMEALHC PRN PO DYSPEPSIA; Start 02/10/18 at 06:15 Magnesium Hydroxide (Milk Of Magnesia) 2,400 mg PRN QHS PRN PO CONSTIPATION Last administered on 03/01/18at 18:06; Start 02/10/18 at 06:15 Influenza Virus Vaccine (Afluria Trivalent 3025-7369 Syringe) 0.5 ml ONCE ONCE VAX IM Last administered on 02/10/18at 14:21; Start 02/10/18 at 09:00; Stop at 09:01; Status DC Vitamin D (Vitamin D3) 50,000 unit QTH PO Last administered on 03/13/18at 16:29 ; Start 02/13/18 at 16:00 Albuterol/ Ipratropium (Duoneb) 3 ml DAILY NEB Last administered on 03/17/18at 10:34; Start 02/10/18 at 09:00 Lactobacillus Rhamnosus (Culturelle) 1 cap BID PO Last administered on 09:03; Start 02/10/18 at 09:00; Stop 02/22/18 at 18:00; Status DC Potassium Chloride (Klor-Con) 40 meq BIDWMEALS PO Last administered on 08:43; Start 02/10/18 at 08:00 Amantadine HCl (Symmetrel) 100 mg BID PO Last administered on 02/26/18 08:21; Start 02/10/18 at 09:00; Stop 02/26/18 at 11:24; Status DC Buspirone HCl (Buspar) 10 mg 1300,1700 PO Last administered on 03/17/18 13:29 ; Start 02/10/18 at 13:00 Buspirone HCl (Buspar) 20 mg DAILY PO Last administered on 03/18/18 08:44; Start 02/10/18 at 09:00 Clonazepam (KlonoPIN) 1 mg TID PO Last administered on 03/09/18 13:53; Start 02/10/18 at 09:00; Stop 03/09/18 at 18:43; Status DC Diltiazem HCl (Cardizem 24hr Cd) 120 mg DAILY PO Last administered on 08:45; Start 02/10/18 at 09:00 Furosemide (Lasix) 80 mg BID92 PO Last administered on 03/18/18 08:48; Start 02/10/18 at 09:00 Haloperidol (Haldol) 7.5 mg DAILY PO Last administered on 02/19/18at 09:05; Start 02/10/18 at 09:00; Stop 02/19/18 at 18:16; Status DC Non-Formulary Medication (Haloperidol Decanoate (Haldol Decanoate 100)) 450 mg Q4WK IM ; Start 02/10/18 at 09:00; Stop 02/10/18 at 16:12; Status DC Non-Formulary Medication (Insulin Aspart (Novolog Flexpen)) see protocol TIDWMEALS SQ ; Start 02/10/18 at 08:00; Status UNV Magnesium Oxide (Magnesium Oxide) 400 mg BID PO Last administered on 10/23/ 18at 08:48; Start 02/10/18 at 09:00 Metformin HCl (Glucophage) 500 mg BIDWMEALS PO Last administered on 03/18/18 08:43; Start 02/10/18 at 08:00 Metolazone (Zaroxolyn) 5 mg DAILY PO Last administered on 03/18/18at 08:51; Start 02/10/18 at 09:00 Mirtazapine (Remeron) 15 mg QHS PO Last administered on 03/17/18at 20:09; Start 02/10/18 at 21:00 Pioglitazone HCl (Actos) 15 mg DAILY PO Last administered on 03/18/18 08:44; Start 02/10/18 at 09:00 Trazodone HCl (Desyrel) 25 mg TID@0900,1300,1700 PO Last administered on 08:48; Start 02/10/18 at 09:00 Valproic Acid (Depakene) 750 mg TID PO Last administered on 02/17/18at 21:01; Start 02/10/18 at 09:00; Stop 02/18/18 at 08:06; Status DC Insulin Human Lispro (HumaLOG) 0-9 UNITS TIDWMEALS SQ Last administered on at 08:54; Start 02/10/18 at 08:00 Dextrose 12.5 gm PRN Q15MIN PRN IV SEE COMMENTS; Start 02/10/18 at 06:30 Olanzapine (ZyPREXA ZYDIS) 5 mg PRN Q2HR PRN PO PSYCHOSIS Last administered on 03/02/18at 12:27; Start 02/10/18 at 06:45 Haloperidol Decanoate (Haldol Decanoate Im Extended Release) 450 mg Q4WK IM Last administered on 03/10/18at 08:50; Start 03/10/18 at 09:00 Trazodone HCl (Desyrel) 25 mg STK-MED ONCE .ROUTE ; Start 02/10/18 at 09:00; Stop 02/11/18 at 10:03; Status DC Trazodone HCl (Desyrel) 25 mg STK-MED ONCE .ROUTE ; Start 02/10/18 at 09:00; Stop 02/11/18 at 10:03; Status DC Trazodone HCl (Desyrel) 25 mg STK-MED ONCE .ROUTE ; Start 02/10/18 at 09:00; Stop 02/11/18 at 10:03; Status DC Trazodone HCl (Desyrel) 25 mg STK-MED ONCE .ROUTE ; Start 02/11/18 at 09:00; Stop 02/11/18 at 10:04; Status DC Clozapine (Clozaril) 25 mg HS PO Last administered on 02/16/18at 21:13; Start at 21:00; Stop 02/17/18 at 17:40; Status DC Nystatin (Nystop) 1 guanaco BID TP Last administered on 03/18/18at 08:49; Start at 09:00 Trazodone HCl (Desyrel) 100 mg PRN QHS PRN PO INSOMNIA, SEPTEMBER REPEAT X1; Start at 17:00; Stop 02/16/18 at 22:42; Status DC Trazodone HCl (Desyrel) 100 mg QHS PO Last administered on 03/17/18at 20:08; Start 02/16/18 at 23:00 Trazodone HCl (Desyrel) 100 mg PRN QHS PRN PO insomnia Last administered on at 19:46; Start 02/16/18 at 22:45 Clozapine (Clozaril) 50 mg HS PO Last administered on 02/23/18at 19:21; Start at 21:00; Stop 02/24/18 at 16:13; Status DC Divalproex Sodium (Depakote Sprinkles) 750 mg TID PO Last administered on 03/18 08:46; Start 02/18/18 at 09:00 Haloperidol (Haldol) 5 mg DAILY PO Last administered on 03/03/18at 09:32; Start 02/20/18 at 09:00; Stop 03/03/18 at 16:23; Status DC Clozapine (Clozaril) 75 mg HS PO Last administered on 03/02/18at 19:49; Start 02/24/18 at 21:00; Stop 03/03/18 at 16:23; Status DC Clozapine (Clozaril) 100 mg HS PO ; Start 03/03/18 at 16:30; Stop 03/03/18 at 17 :06; Status DC Clozapine (Clozaril) 100 mg HS PO Last administered on 03/10/18at 20:52; Start 03/03/18 at 21:00; Stop 03/10/18 at 22:18; Status DC Sodium Chloride 500 ml @ 0 mls/hr 1X ONCE IV Last administered on 03/08/18at 13:00; Start 03/08/18 at 13:00; Stop 03/08/18 at 13:01; Status DC Sodium Chloride 500 ml @ 125 mls/hr 1X ONCE IV Last administered on at 14:30; Start 03/08/18 at 15:15; Stop 03/08/18 at 19:14; Status DC Clonazepam (KlonoPIN) 1 mg 1200,1700 PO Last administered on 03/17/18at 13:29; Start 03/10/18 at 12:00 Clonazepam (KlonoPIN) 0.5 mg DAILY PO Last administered on 03/18/18at 08:48; Start 03/10/18 at 09:00 Nystatin (Mycostatin) 5 ml QID SWSW Last administered on 03/17/18at 20:09; Start 03/10/18 at 13:00 Clozapine (Clozaril) 125 mg HS PO Last administered on 03/16/18at 20:13; Start 03/11/18 at 21:00; Stop 03/17/18 at 18:02; Status DC Cefpodoxime Proxetil (Vantin) 100 mg BID PO Last administered on 03/18/18at 08: 48; Start 03/17/18 at 21:00; Stop 03/27/18 at 20:59 Clozapine (Clozaril) 150 mg HS PO Last administered on 03/17/18at 20:08; Start 03/17/18 at 21:00 Active Scripts Active Reported Duoneb 0.5-3(2.5) Mg/3 Ml (Albuterol/Ipratropium) 3 Ml Ampul.neb 3 Ml NEB DAILY Zyprexa Zydis (Olanzapine) 5 Mg Tab.rapdis 5 Mg PO PRN Q2HR PRN Buspirone Hcl 10 Mg Tablet 10 Mg PO BID@1300,1700 Valproic Acid (Valproate Sodium) 250 Mg/5 Ml Solution 750 Mg PO TID Novolog Flexpen (Insulin Aspart) 100 Unit/1 Ml Insuln.pen 0-9 Unit SQ TIDWMEALS <70 follow hypoglycemic protocol 70-150 0units if eating/ 0 if not eating 151-200 4 units if eating/ 0 units if not eating 201-250 5 units if eating/ 3 units if not eating 251-300 7 units if eating/ 4 units if not eating 301-350 9 units if eating/ 5 units if not eating > 351 Call Physician for futher orders Trazodone Hcl 100 Mg Tablet 200 Mg PO PRN QHS PRN Trazodone Hcl 50 Mg Tablet 25 Mg PO TID@0900,1300,1700 Culturelle (Lactobacillus Rhamnosus Gg) 1 Each Cap.sprink 1 Each PO BID Haloperidol 5 Mg Tablet 7.5 Mg PO DAILY Tylenol (Acetaminophen) 325 Mg Tablet 650 Mg PO PRN Q6HRS PRN Buspirone Hcl 10 Mg Tablet 20 Mg PO DAILY Theophylline Anhydrous 200 Mg Tab.er.12h 200 Mg PO BID Metolazone 5 Mg Tablet 5 Mg PO DAILY Metformin Hcl 500 Mg Tablet 500 Mg PO BIDWMEALS Cardizem Tablet (Diltiazem Hcl) 120 Mg Tablet 120 Mg PO DAILY Amantadine (Amantadine Hcl) 100 Mg Tablet 100 Mg PO BID Actos (Pioglitazone Hcl) 15 Mg Tablet 15 Mg PO DAILY Mirtazapine 15 Mg Tablet 15 Mg PO QHS Haldol Decanoate 100 (Haloperidol Decanoate) 100 Mg/1 Ml Ampul 450 Mg IM Q4WK Klor-Con M20 (Potassium Chloride) 20 Meq Tab.er.prt 40 Meq PO BIDWMEALS Analgesic [place] (Methyl Salicylate/Menthol) 28 Gm Oint...g. 1 Guanaco TP PRN QID PRN Magnesium Oxide 400 Mg Tablet 400 Mg PO BID Milk Of Magnesia (Magnesium Hydroxide) 2,400 Mg/10 Ml Oral.susp 2,400 Mg PO PRN QHS PRN Maalox Advanced Suspension (Mag Hydrox/Aluminum Hyd/Simeth) 355 Ml Oral.susp 15 Ml PO PRN AFTMEALHC PRN D3-50 (Cholecalciferol (Vitamin D3)) 50,000 Unit Capsule 50,000 Unit PO QTH Clonazepam 1 Mg Tablet 1 Mg PO TID Furosemide 40 Mg Tablet 80 Mg PO [id number] Hold for SBP less than 100. After held dose, reassess in 2 hours. If SBP is above threshold, administer dose as ordered. If SBP is below threshold, contact provider for additional instructions. I have reviewed the current psychotropics carefully including drug interactions. Risk benefit ratio favors no change other than as noted in my dictated progress note. Diagnosis: Problems: (1) Schizoaffective disorder, chronic condition with acute exacerbation (2) Impulse control disorder (3) Anxiety disorder (4) Schizoaffective disorder (5) Depression KALIN STARKS MD Mar 18, 2018 10:53
[2018-03-18] MEDS: clonazePAM 1 MG TABLET PO SCH ×2 (12:19→17:18)
[2018-03-18 16:15] VITALS: BP 141/89
[2018-03-18] MEDS: cloZAPine 100 MG TABLET PO SCH (19:41)
[2018-03-18] MEDS: traZODone 100 MG TABLET. PO SCH (19:42)
[2018-03-18] MEDS: MIRTAZAPINE 15 MG TABLET PO SCH (19:42)
[2018-03-18 23:29] LABS: BASO % 1 % (0-3); EOS # 0.1 x10^3/uL (0.0-0.7); EOS % 2 % (0-3); HEMATOCRIT 38.1 % (36.0-47.0); HEMOGLOBIN 12.1 g/dL (12.0-15.5); LYMPH # 1.3 x10^3/uL (1.0-4.8); LYMPH % 22 % (24-48); MEAN CORPUSCULAR HEMOGLOBIN 28 pg (25-35); MEAN CORPUSCULAR HGB CONC 32 g/dL (31-37); MEAN CORPUSCULAR VOLUME 90 fL (79-100); MONO # 0.5 x10^3/uL (0.0-1.1); MONO % 9 % (0-9); NEUT % 66 % (31-73); PLATELET COUNT 151 x10^3/uL (140-400); RED BLOOD COUNT 4.26 x10^6/uL (3.50-5.40); RED CELL DISTRIBUTION WIDTH 16.4 % (11.5-14.5)
[2018-03-18] MEDS ORDERED: DOXYCYCLINE HYCLATE 100 MG TABLET PO ONE (23:45)
[2018-03-19 00:54] LABS: ALBUMIN 2.9 g/dL (3.4-5.0); ALBUMIN/GLOBULIN RATIO 0.5 (1.0-1.7); CALCIUM 9.8 mg/dL (8.5-10.1); CREATININE 1.6 mg/dL (0.6-1.0); GFR 39.4; POTASSIUM 3.5 mmol/L (3.5-5.1); TOTAL BILIRUBIN 0.1 mg/dL (0.2-1.0); TOTAL PROTEIN 8.3 g/dL (6.4-8.2)
[2018-03-19 01:17] VITALS: BP 121/79
[2018-03-19 03:55] VITALS: BP 115/75
[2018-03-19 06:14] VITALS: BP 136/81
[2018-03-19] MEDS: POTASSIUM CHLORIDE 20 MEQ TABLET.ER. PO SCH ×2 (08:00→16:47)
[2018-03-19] MEDS: metFORMIN 500 MG TABLET PO SCH ×2 (08:00→16:47)
[2018-03-19] MEDS: INSULIN LISPRO 300 UNITS/3 ML INSULN.PEN. SQ SCH ×3 (08:01→16:48)
[2018-03-19] MEDS: PIOGLITAZONE 15 MG TABLET. PO SCH (08:02)
[2018-03-19] MEDS: busPIRone 10 MG TABLET. PO SCH ×4 (08:02→16:46)
[2018-03-19] MEDS: DIVALPROEX 125 MG CAP.SPRINK PO SCH ×4 (08:03→19:55)
[2018-03-19] MEDS: FUROSEMIDE 80 MG TABLET PO SCH ×3 (08:05→12:38)
[2018-03-19] MEDS: MAGNESIUM OXIDE 400 MG TABLET PO SCH ×2 (08:05→19:55)
[2018-03-19] MEDS: traZODone 50 MG TABLET. PO SCH ×4 (08:05→16:46)
[2018-03-19] MEDS: CEFPODOXIME PROXETIL 100 MG TABLET PO SCH (08:05)
[2018-03-19] MEDS: DOXYCYCLINE HYCLATE 100 MG TABLET PO SCH ×2 (08:07→19:55)
[2018-03-19] MEDS: NYSTATIN 100,000 UNITS/ML ORAL SUSPENSION 60ML BOTTLE. SWSW SCH ×2 (08:08→12:12)
[2018-03-19] MEDS: NYSTATIN TOPICAL POWDER 15GM BOTTLE. TP SCH ×2 (08:08→19:56)
[2018-03-19] MEDS: clonazePAM 0.5 MG TABLET PO SCH (08:10)
[2018-03-19] MEDS: metOLazone 5 MG TABLET PO SCH (08:10)
[2018-03-19] MEDS: IPRATRPIUM/ALBUTEROL 0.5/2.5MG 3 ML NEBU. NEB SCH (09:31)
[2018-03-19] MEDS: clonazePAM 1 MG TABLET PO SCH ×3 (12:00→16:47)
[2018-03-19 16:17] VITALS: BP 117/82
[2018-03-19] MEDS: traZODone 100 MG TABLET. PO SCH (19:55)
[2018-03-19] MEDS: cloZAPine 100 MG TABLET PO SCH (19:55)
[2018-03-19] MEDS: MIRTAZAPINE 15 MG TABLET PO SCH (19:55)
[2018-03-19] MEDS: LACTOBACILLUS RHAMNOSUS GG 1 CAPSULE. PO SCH (19:57)
--- NOTE | 2018-03-19 20:22 | PN ---
DATE: 03/17/2018 This is a late entry 03/17/2018 covers elements not covered in my initial note. SUBJECTIVE: I met in the evening. Overall, the patient slept 3-3/4 hours previous evening. Per the nursing report, she has had a "better day." She is compliant with medications. Absolute neutrophil count is 3953, which is adequate and we will increase the Clozaril from 125 mg at bedtime to 150 mg at bedtime. REVIEW OF SYSTEMS: Ambulation impaired with walker. No CV, , pulmonary, eye, ENT system symptoms on review. Reliability poor. MENTAL STATUS EXAM: Oriented to herself and situation. Speech has some latency, coherent, can be loud at times. Abstraction fair, computation impaired, language function intact, attention span short. Mood and affect remain somewhat labile. LABORATORY DATA: Reviewed. IMPRESSION: Schizoaffective disorder, bipolar type, mixed with psychotic features, in partial remission; cognitive disorder, unspecified; anxiety disorder, unspecified; impulse control disorder. PLAN: Increase Clozaril to 150 mg at bedtime. Continue rest unchanged including use Haldol Decanoate, Klonopin scheduled, Remeron, trazodone, scheduled Depakote "level therapeutic," trazodone and Zyprexa p.r.n. MAN Mary STARKS MD DR: TRACIE/karli JOB#: [id number] / [id number]
[2018-03-19 20:49] LABS: BILIRUBIN,URINE NEG (NEG); CLARITY,URINE HAZY; COLOR,URINE YELLOW; GLUCOSE,URINE NEG (NEG)
[2018-03-19 20:50] LABS: BACTERIA,URINE 0 /HPF (0-FEW); HYALINE CASTS, URINE MOD /HPF; NITRITE,URINE NEG (NEG); SQUAMOUS EPITHELIAL CELL,UR MOD /LPF; UROBILINOGEN,URINE 0.2 mg/dL (0.2 mg/dL)
--- NOTE | 2018-03-19 21:31 | PDOC ---
Exam Note: [place] Note: Late entry for DOS 03/18/2018. Please also refer to the separate dictated note~ for this date of service dictated separately.~Patient seen individually. Discussed the patient with Nursing staff reviewed the chart.~Reviewed interim history and current functioning. Reviewed vital signs,~Labs/ Radiology~and current medications noted below. Continue current treatment with the changes noted in the dictated addendum note Assessment: Vital Signs: VS - Last 72 Hours, by Label Date Time Temp Pulse Resp B/P (MAP) Pulse Ox O2 Delivery O2 Flow Rate FiO2 03/19/18 16:17 97.8 65 18 117/82 (94) 94 03/19/18 09:33 96 Room Air 03/19/18 08:03 82 136/81 03/19/18 06:14 96.5 82 20 136/81 (99) 90 03/19/18 03:55 96.6 20 115/75 (88) 94 2.0 03/19/18 01:17 98.4 77 20 121/79 (93) 100 03/18/18 16:15 97.6 71 16 141/89 (106) 94 Room Air 03/18/18 08:45 72 148/87 03/18/18 05:48 96.5 72 18 148/87 (107) 97 03/17/18 16:37 97.5 85 20 119/62 (81) 96 Room Air 03/17/18 10:34 96 Room Air 03/17/18 06:30 97.8 72 18 100/60 (73) 95 Nasal Cannula 3.0 Vital Signs Date Time Temp Pulse Resp B/P (MAP) Pulse Ox O2 Delivery O2 Flow Rate FiO2 03/19/18 16:17 97.8 65 18 117/82 (94) 94 03/19/18 09:33 Room Air 03/19/18 03:55 2.0 I&O Intake and Output 03/19/18 07:00 Intake Total 720 ml Balance 720 ml Intake Oral 720 ml Labs: Laboratory Tests Test 03/18/18 23:19 03/19/18 03:19 03/19/18 07:51 03/19/18 12:31 White Blood Count 6.0 x10^3/uL (4.0-11.0) Red Blood Count 4.26 x10^6/uL (3.50-5.40) Hemoglobin 12.1 g/dL (12.0-15.5) Hematocrit 38.1 % (36.0-47.0) Mean Corpuscular Volume 90 fL (79-100) Mean Corpuscular Hemoglobin 28 pg (25-35) Mean Corpuscular Hemoglobin Concent 32 g/dL (31-37) Red Cell Distribution Width 16.4 % (11.5-14.5) H Platelet Count 151 x10^3/uL (140-400) Neutrophils (%) (Auto) 66 % (31-73) Lymphocytes (%) (Auto) 22 % (24-48) L Monocytes (%) (Auto) 9 % (0-9) Eosinophils (%) (Auto) 2 % (0-3) Basophils (%) (Auto) 1 % (0-3) Neutrophils # (Auto) 4.0 x10^3uL (1.8-7.7) Lymphocytes # (Auto) 1.3 x10^3/uL (1.0-4.8) Monocytes # (Auto) 0.5 x10^3/uL (0.0-1.1) Eosinophils # (Auto) 0.1 x10^3/uL (0.0-0.7) Basophils # (Auto) 0.0 x10^3/uL (0.0-0.2) Sodium Level 143 mmol/L (136-145) Potassium Level 3.5 mmol/L (3.5-5.1) Chloride Level 99 mmol/L (98-107) Carbon Dioxide Level 41 mmol/L (21-32) H Anion Gap 3 (6-14) L Blood Urea Nitrogen 38 mg/dL (7-20) H Creatinine 1.6 mg/dL (0.6-1.0) H Estimated GFR (Cockcroft-Gault) 39.4 BUN/Creatinine Ratio 24 (6-20) H Glucose Level 204 mg/dL (70-99) H Lactic Acid Level 3.7 mmol/L (0.4-2.0) H 1.6 mmol/L (0.4-2.0) Calcium Level 9.8 mg/dL (8.5-10.1) Total Bilirubin 0.1 mg/dL (0.2-1.0) L Aspartate Amino Transferase (AST) 17 U/L (15-37) Alanine Aminotransferase (ALT) 18 U/L (14-59) Alkaline Phosphatase 108 U/L (46-116) Total Protein 8.3 g/dL (6.4-8.2) H Albumin 2.9 g/dL (3.4-5.0) L Albumin/Globulin Ratio 0.5 (1.0-1.7) L Glucose (Fingerstick) 172 mg/dL (70-99) H 183 mg/dL (70-99) H Test 03/19/18 16:42 03/19/18 19:29 03/19/18 20:28 Glucose (Fingerstick) 133 mg/dL (70-99) H 186 mg/dL (70-99) H Urine Collection Type Unknown Urine Color Yellow Urine Clarity Hazy Urine pH 8.0 Urine Specific [place] 1.015 Urine Protein Trace (NEG-TRACE) Urine Glucose (UA) Neg mg/dL (NEG) Urine Ketones (Stick) Trace mg/dL (NEG) Urine Blood Neg (NEG) Urine Nitrite Neg (NEG) Urine Bilirubin Neg (NEG) Urine Urobilinogen Dipstick 0.2 mg/dL (0.2 mg/dL) Urine Leukocyte Esterase Trace (NEG) Urine RBC 3-5 /HPF (0-2) Urine WBC 5-10 /HPF (0-4) Urine Squamous Epithelial Cells Mod /LPF Urine Bacteria 0 /HPF (0-FEW) Urine Hyaline Casts Mod /HPF Urine Mucus Slight /LPF Current Medications: Meds: Current Medications Lorazepam (Ativan) 2 mg 1X ONCE IM ; Start 02/10/18 at 04:00; Stop 02/10/18 at 04:01; Status DC Diphenhydramine HCl (Benadryl) 50 mg 1X ONCE IM ; Start 02/10/18 at 04:00; Stop 02/10/18 at 04:01; Status DC Ziprasidone (Geodon Im) 20 mg 1X ONCE IM ; Start 02/10/18 at 04:00; Stop at 04:01; Status DC Multivitamins/ Minerals 10 ml/ Folic Acid 1 mg/ Thiamine HCl 100 mg/Lactated Ringer's 1,011.1 ml @ 1,000 mls/ hr 1X ONCE IV ; Start 02/10/18 at 03:45; Stop 02/10/18 at 04:45; Status DC Magnesium Hydroxide (Milk Of Magnesia) 2,400 mg 1X ONCE PO ; Start 02/10/18 at 05:30; Stop 02/10/18 at 05:32; Status DC Potassium Chloride (KCl Oral Soln) 40 meq 1X ONCE PO ; Start 02/10/18 at 05:30 ; Stop 02/10/18 at 05:32; Status DC Acetaminophen (Tylenol) 650 mg PRN Q6HRS PRN PO PAIN / TEMP Last administered on 02/23/18at 12:43; Start 02/10/18 at 06:15 Multi-Ingredient Ointment (Analgesic [place]) 1 guanaco PRN QID PRN TP MUSCLE PAIN; Start 02/10/18 at 06:15 Al Hydroxide/Mg Hydroxide (Mylanta Plus Xs) 15 ml PRN AFTMEALHC PRN PO DYSPEPSIA; Start 02/10/18 at 06:15 Magnesium Hydroxide (Milk Of Magnesia) 2,400 mg PRN QHS PRN PO CONSTIPATION Last administered on 03/01/18at 18:06; Start 02/10/18 at 06:15 Influenza Virus Vaccine (Afluria Trivalent [id number] Syringe) 0.5 ml ONCE ONCE VAX IM Last administered on 02/10/18at 14:21; Start 02/10/18 at 09:00; Stop at 09:01; Status DC Vitamin D (Vitamin D3) 50,000 unit QTH PO Last administered on 03/13/18at 16:29 ; Start 02/13/18 at 16:00 Albuterol/ Ipratropium (Duoneb) 3 ml DAILY NEB Last administered on 03/19/18at 09:31; Start 02/10/18 at 09:00 Lactobacillus Rhamnosus (Culturelle) 1 cap BID PO Last administered on at 09:03; Start 02/10/18 at 09:00; Stop 02/22/18 at 18:00; Status DC Potassium Chloride (Klor-Con) 40 meq BIDWMEALS PO Last administered on at 16:47; Start 02/10/18 at 08:00 Amantadine HCl (Symmetrel) 100 mg BID PO Last administered on 02/26/18at 08:21; Start 02/10/18 at 09:00; Stop 02/26/18 at 11:24; Status DC Buspirone HCl (Buspar) 10 mg 1300,1700 PO Last administered on 03/19/18 16:46 ; Start 02/10/18 at 13:00 Buspirone HCl (Buspar) 20 mg DAILY PO Last administered on 03/19/18 08:02; Start 02/10/18 at 09:00 Clonazepam (KlonoPIN) 1 mg TID PO Last administered on 03/09/18 13:53; Start 02/10/18 at 09:00; Stop 03/09/18 at 18:43; Status DC Diltiazem HCl (Cardizem 24hr Cd) 120 mg DAILY PO Last administered on 08:03; Start 02/10/18 at 09:00 Furosemide (Lasix) 80 mg BID92 PO Last administered on 03/19/18 08:05; Start 02/10/18 at 09:00 Haloperidol (Haldol) 7.5 mg DAILY PO Last administered on 02/19/18 09:05; Start 02/10/18 at 09:00; Stop 02/19/18 at 18:16; Status DC Non-Formulary Medication (Haloperidol Decanoate (Haldol Decanoate 100)) 450 mg Q4WK IM ; Start 02/10/18 at 09:00; Stop 02/10/18 at 16:12; Status DC Non-Formulary Medication (Insulin Aspart (Novolog Flexpen)) see protocol TIDWMEALS SQ ; Start 02/10/18 at 08:00; Status UNV Magnesium Oxide (Magnesium Oxide) 400 mg BID PO Last administered on 19:55; Start 02/10/18 at 09:00 Metformin HCl (Glucophage) 500 mg BIDWMEALS PO Last administered on 03/19/18 16:47; Start 02/10/18 at 08:00 Metolazone (Zaroxolyn) 5 mg DAILY PO Last administered on 03/19/18 08:10; Start 02/10/18 at 09:00 Mirtazapine (Remeron) 15 mg QHS PO Last administered on 03/19/18 19:55; Start 02/10/18 at 21:00 Pioglitazone HCl (Actos) 15 mg DAILY PO Last administered on 10/24/18at 08:02; Start 02/10/18 at 09:00 Trazodone HCl (Desyrel) 25 mg TID@0900,1300,1700 PO Last administered on at 16:46; Start 02/10/18 at 09:00 Valproic Acid (Depakene) 750 mg TID PO Last administered on 02/17/18at 21:01; Start 02/10/18 at 09:00; Stop 02/18/18 at 08:06; Status DC Insulin Human Lispro (HumaLOG) 0-9 UNITS TIDWMEALS SQ Last administered on at 08:01; Start 02/10/18 at 08:00 Dextrose 12.5 gm PRN Q15MIN PRN IV SEE COMMENTS; Start 02/10/18 at 06:30 Olanzapine (ZyPREXA ZYDIS) 5 mg PRN Q2HR PRN PO PSYCHOSIS Last administered on 03/02/18at 12:27; Start 02/10/18 at 06:45 Haloperidol Decanoate (Haldol Decanoate Im Extended Release) 450 mg Q4WK IM Last administered on 03/10/18at 08:50; Start 03/10/18 at 09:00 Trazodone HCl (Desyrel) 25 mg STK-MED ONCE .ROUTE ; Start 02/10/18 at 09:00; Stop 02/11/18 at 10:03; Status DC Trazodone HCl (Desyrel) 25 mg STK-MED ONCE .ROUTE ; Start 02/10/18 at 09:00; Stop 02/11/18 at 10:03; Status DC Trazodone HCl (Desyrel) 25 mg STK-MED ONCE .ROUTE ; Start 02/10/18 at 09:00; Stop 02/11/18 at 10:03; Status DC Trazodone HCl (Desyrel) 25 mg STK-MED ONCE .ROUTE ; Start 02/11/18 at 09:00; Stop 02/11/18 at 10:04; Status DC Clozapine (Clozaril) 25 mg HS PO Last administered on 02/16/18at 21:13; Start at 21:00; Stop 02/17/18 at 17:40; Status DC Nystatin (Nystop) 1 guanaco BID TP Last administered on 03/19/18 19:56; Start at 09:00 Trazodone HCl (Desyrel) 100 mg PRN QHS PRN PO INSOMNIA, MAY REPEAT X1; Start at 17:00; Stop 02/16/18 at 22:42; Status DC Trazodone HCl (Desyrel) 100 mg QHS PO Last administered on 03/19/18at 19:55; Start 02/16/18 at 23:00 Trazodone HCl (Desyrel) 100 mg PRN QHS PRN PO insomnia Last administered on at 19:46; Start 02/16/18 at 22:45 Clozapine (Clozaril) 50 mg HS PO Last administered on 02/23/18 19:21; Start at 21:00; Stop 02/24/18 at 16:13; Status DC Divalproex Sodium (Depakote Sprinkles) 750 mg TID PO Last administered on 03/19at 19:55; Start 02/18/18 at 09:00 Haloperidol (Haldol) 5 mg DAILY PO Last administered on 03/03/18at 09:32; Start 02/20/18 at 09:00; Stop 03/03/18 at 16:23; Status DC Clozapine (Clozaril) 75 mg HS PO Last administered on 03/02/18at 19:49; Start 02/24/18 at 21:00; Stop 03/03/18 at 16:23; Status DC Clozapine (Clozaril) 100 mg HS PO ; Start 03/03/18 at 16:30; Stop 03/03/18 at 17 :06; Status DC Clozapine (Clozaril) 100 mg HS PO Last administered on 03/10/18at 20:52; Start 03/03/18 at 21:00; Stop 03/10/18 at 22:18; Status DC Sodium Chloride 500 ml @ 0 mls/hr 1X ONCE IV Last administered on 03/08/18at 13:00; Start 03/08/18 at 13:00; Stop 03/08/18 at 13:01; Status DC Sodium Chloride 500 ml @ 125 mls/hr 1X ONCE IV Last administered on at 14:30; Start 03/08/18 at 15:15; Stop 03/08/18 at 19:14; Status DC Clonazepam (KlonoPIN) 1 mg 1200,1700 PO Last administered on 03/19/18at 16:47; Start 03/10/18 at 12:00 Clonazepam (KlonoPIN) 0.5 mg DAILY PO Last administered on 03/19/18at 08:10; Start 03/10/18 at 09:00 Nystatin (Mycostatin) 5 ml QID SWSW Last administered on 03/18/18at 19:43; Start 03/10/18 at 13:00; Stop 03/19/18 at 16:01; Status DC Clozapine (Clozaril) 125 mg HS PO Last administered on 03/16/18at 20:13; Start 03/11/18 at 21:00; Stop 03/17/18 at 18:02; Status DC Cefpodoxime Proxetil (Vantin) 100 mg BID PO Last administered on 03/19/18at 08: 05; Start 03/17/18 at 21:00; Stop 03/19/18 at 16:01; Status DC Clozapine (Clozaril) 150 mg HS PO Last administered on 03/19/18at 19:55; Start 03/17/18 at 21:00 Doxycycline Hyclate (Vibra-Tab) 100 mg BID PO Last administered on 03/19/18at 19:55; Start 03/19/18 at 09:00; Stop 03/29/18 at 08:59 Doxycycline Hyclate (Vibra-Tab) 100 mg 1X ONCE PO ; Start 03/18/18 at 23:45; Stop 03/18/18 at 23:48; Status DC Lactobacillus Rhamnosus (Culturelle) 1 cap BID PO Last administered on at 19:57; Start 03/19/18 at 21:00 Active Scripts Active Reported Duoneb 0.5-3(2.5) Mg/3 Ml (Albuterol/Ipratropium) 3 Ml Ampul.neb 3 Ml NEB DAILY Zyprexa Zydis (Olanzapine) 5 Mg Tab.rapdis 5 Mg PO PRN Q2HR PRN Buspirone Hcl 10 Mg Tablet 10 Mg PO BID@1300,1700 Valproic Acid (Valproate Sodium) 250 Mg/5 Ml Solution 750 Mg PO TID Novolog Flexpen (Insulin Aspart) 100 Unit/1 Ml Insuln.pen 0-9 Unit SQ TIDWMEALS <70 follow hypoglycemic protocol 70-150 0units if eating/ 0 if not eating 151-200 4 units if eating/ 0 units if not eating 201-250 5 units if eating/ 3 units if not eating 251-300 7 units if eating/ 4 units if not eating 301-350 9 units if eating/ 5 units if not eating > 351 Call Physician for futher orders Trazodone Hcl 100 Mg Tablet 200 Mg PO PRN QHS PRN Trazodone Hcl 50 Mg Tablet 25 Mg PO TID@0900,1300,1700 Culturelle (Lactobacillus Rhamnosus Gg) 1 Each Cap.sprink 1 Each PO BID Haloperidol 5 Mg Tablet 7.5 Mg PO DAILY Tylenol (Acetaminophen) 325 Mg Tablet 650 Mg PO PRN Q6HRS PRN Buspirone Hcl 10 Mg Tablet 20 Mg PO DAILY Theophylline Anhydrous 200 Mg Tab.er.12h 200 Mg PO BID Metolazone 5 Mg Tablet 5 Mg PO DAILY Metformin Hcl 500 Mg Tablet 500 Mg PO BIDWMEALS Cardizem Tablet (Diltiazem Hcl) 120 Mg Tablet 120 Mg PO DAILY Amantadine (Amantadine Hcl) 100 Mg Tablet 100 Mg PO BID Actos (Pioglitazone Hcl) 15 Mg Tablet 15 Mg PO DAILY Mirtazapine 15 Mg Tablet 15 Mg PO QHS Haldol Decanoate 100 (Haloperidol Decanoate) 100 Mg/1 Ml Ampul 450 Mg IM Q4WK Klor-Con M20 (Potassium Chloride) 20 Meq Tab.er.prt 40 Meq PO BIDWMEALS Analgesic [place] (Methyl Salicylate/Menthol) 28 Gm Oint...g. 1 Guanaco TP PRN QID PRN Magnesium Oxide 400 Mg Tablet 400 Mg PO BID Milk Of Magnesia (Magnesium Hydroxide) 2,400 Mg/10 Ml Oral.susp 2,400 Mg PO PRN QHS PRN Maalox Advanced Suspension (Mag Hydrox/Aluminum Hyd/Simeth) 355 Ml Oral.susp 15 Ml PO PRN AFTMEALHC PRN D3-50 (Cholecalciferol (Vitamin D3)) 50,000 Unit Capsule 50,000 Unit PO QTH Clonazepam 1 Mg Tablet 1 Mg PO TID Furosemide 40 Mg Tablet 80 Mg PO [id number] Hold for SBP less than 100. After held dose, reassess in 2 hours. If SBP is above threshold, administer dose as ordered. If SBP is below threshold, contact provider for additional instructions. I have reviewed the current psychotropics carefully including drug interactions. Risk benefit ratio favors no change other than as noted in my dictated progress note. Diagnosis: Problems: (1) Depression (2) Schizoaffective disorder (3) Anxiety disorder (4) Impulse control disorder (5) Schizoaffective disorder, chronic condition with acute exacerbation KALIN STARKS MD Mar 19, 2018 21:31
--- NOTE | 2018-03-19 23:47 | PDOC ---
Exam Note: Napoleon Note: Please also refer to the separate dictated note~for this date of service dictated separately.~Patient seen individually. Discussed the patient with Nursing staff reviewed the chart.~Reviewed interim history and current functioning. Reviewed vital signs,~Labs/ Radiology~and current medications noted below. Continue current treatment with the changes noted in the dictated addendum note Assessment: Vital Signs: Vital Signs Date Time Temp Pulse Resp B/P (MAP) Pulse Ox O2 Delivery O2 Flow Rate FiO2 03/19/18 16:17 97.8 65 18 117/82 (94) 94 03/19/18 09:33 Room Air 03/19/18 03:55 2.0 I&O Intake and Output 03/19/18 07:00 Intake Total 720 ml Balance 720 ml Intake Oral 720 ml Labs: Laboratory Tests Test 03/19/18 03:19 03/19/18 07:51 03/19/18 12:31 03/19/18 16:42 Lactic Acid Level 1.6 mmol/L (0.4-2.0) Glucose (Fingerstick) 172 mg/dL (70-99) H 183 mg/dL (70-99) H 133 mg/dL (70-99) H Test 03/19/18 19:29 03/19/18 20:28 Glucose (Fingerstick) 186 mg/dL (70-99) H Urine Collection Type Unknown Urine Color Yellow Urine Clarity Hazy Urine pH 8.0 Urine Specific [place] 1.015 Urine Protein Trace (NEG-TRACE) Urine Glucose (UA) Neg mg/dL (NEG) Urine Ketones (Stick) Trace mg/dL (NEG) Urine Blood Neg (NEG) Urine Nitrite Neg (NEG) Urine Bilirubin Neg (NEG) Urine Urobilinogen Dipstick 0.2 mg/dL (0.2 mg/dL) Urine Leukocyte Esterase Trace (NEG) Urine RBC 3-5 /HPF (0-2) Urine WBC 5-10 /HPF (0-4) Urine Squamous Epithelial Cells Mod /LPF Urine Bacteria 0 /HPF (0-FEW) Urine Hyaline Casts Mod /HPF Urine Mucus Slight /LPF Current Medications: Meds: Current Medications Lorazepam (Ativan) 2 mg 1X ONCE IM ; Start 02/10/18 at 04:00; Stop 02/10/18 at 04:01; Status DC Diphenhydramine HCl (Benadryl) 50 mg 1X ONCE IM ; Start 02/10/18 at 04:00; Stop 02/10/18 at 04:01; Status DC Ziprasidone (Geodon Im) 20 mg 1X ONCE IM ; Start 02/10/18 at 04:00; Stop at 04:01; Status DC Multivitamins/ Minerals 10 ml/ Folic Acid 1 mg/ Thiamine HCl 100 mg/Lactated Ringer's 1,011.1 ml @ 1,000 mls/ hr 1X ONCE IV ; Start 02/10/18 at 03:45; Stop 02/10/18 at 04:45; Status DC Magnesium Hydroxide (Milk Of Magnesia) 2,400 mg 1X ONCE PO ; Start 02/10/18 at 05:30; Stop 02/10/18 at 05:32; Status DC Potassium Chloride (KCl Oral Soln) 40 meq 1X ONCE PO ; Start 02/10/18 at 05:30 ; Stop 02/10/18 at 05:32; Status DC Acetaminophen (Tylenol) 650 mg PRN Q6HRS PRN PO PAIN / TEMP Last administered on 02/23/18at 12:43; Start 02/10/18 at 06:15 Multi-Ingredient Ointment (Analgesic [place]) 1 guanaco PRN QID PRN TP MUSCLE PAIN; Start 02/10/18 at 06:15 Al Hydroxide/Mg Hydroxide (Mylanta Plus Xs) 15 ml PRN AFTMEALHC PRN PO DYSPEPSIA; Start 02/10/18 at 06:15 Magnesium Hydroxide (Milk Of Magnesia) 2,400 mg PRN QHS PRN PO CONSTIPATION Last administered on 03/01/18at 18:06; Start 02/10/18 at 06:15 Influenza Virus Vaccine (Afluria Trivalent [id number] Syringe) 0.5 ml ONCE ONCE VAX IM Last administered on 02/10/18at 14:21; Start 02/10/18 at 09:00; Stop at 09:01; Status DC Vitamin D (Vitamin D3) 50,000 unit QTH PO Last administered on 03/13/18at 16:29 ; Start 02/13/18 at 16:00 Albuterol/ Ipratropium (Duoneb) 3 ml DAILY NEB Last administered on 03/19/18at 09:31; Start 02/10/18 at 09:00 Lactobacillus Rhamnosus (Culturelle) 1 cap BID PO Last administered on 09:03; Start 02/10/18 at 09:00; Stop 02/22/18 at 18:00; Status DC Potassium Chloride (Klor-Con) 40 meq BIDWMEALS PO Last administered on 16:47; Start 02/10/18 at 08:00 Amantadine HCl (Symmetrel) 100 mg BID PO Last administered on 02/26/18 08:21; Start 02/10/18 at 09:00; Stop 02/26/18 at 11:24; Status DC Buspirone HCl (Buspar) 10 mg 1300,1700 PO Last administered on 03/19/18 16:46 ; Start 02/10/18 at 13:00 Buspirone HCl (Buspar) 20 mg DAILY PO Last administered on 03/19/18 08:02; Start 02/10/18 at 09:00 Clonazepam (KlonoPIN) 1 mg TID PO Last administered on 03/09/18at 13:53; Start 02/10/18 at 09:00; Stop 03/09/18 at 18:43; Status DC Diltiazem HCl (Cardizem 24hr Cd) 120 mg DAILY PO Last administered on 08:03; Start 02/10/18 at 09:00 Furosemide (Lasix) 80 mg BID92 PO Last administered on 03/19/18 08:05; Start 02/10/18 at 09:00 Haloperidol (Haldol) 7.5 mg DAILY PO Last administered on 02/19/18at 09:05; Start 02/10/18 at 09:00; Stop 02/19/18 at 18:16; Status DC Non-Formulary Medication (Haloperidol Decanoate (Haldol Decanoate 100)) 450 mg Q4WK IM ; Start 02/10/18 at 09:00; Stop 02/10/18 at 16:12; Status DC Non-Formulary Medication (Insulin Aspart (Novolog Flexpen)) see protocol TIDWMEALS SQ ; Start 02/10/18 at 08:00; Status UNV Magnesium Oxide (Magnesium Oxide) 400 mg BID PO Last administered on 10/24/ 18at 19:55; Start 02/10/18 at 09:00 Metformin HCl (Glucophage) 500 mg BIDWMEALS PO Last administered on 03/19/18 16:47; Start 02/10/18 at 08:00 Metolazone (Zaroxolyn) 5 mg DAILY PO Last administered on 03/19/18 08:10; Start 02/10/18 at 09:00 Mirtazapine (Remeron) 15 mg QHS PO Last administered on 03/19/18at 19:55; Start 02/10/18 at 21:00 Pioglitazone HCl (Actos) 15 mg DAILY PO Last administered on 03/19/18 08:02; Start 02/10/18 at 09:00 Trazodone HCl (Desyrel) 25 mg TID@0900,1300,1700 PO Last administered on 16:46; Start 02/10/18 at 09:00 Valproic Acid (Depakene) 750 mg TID PO Last administered on 02/17/18at 21:01; Start 02/10/18 at 09:00; Stop 02/18/18 at 08:06; Status DC Insulin Human Lispro (HumaLOG) 0-9 UNITS TIDWMEALS SQ Last administered on 08:01; Start 02/10/18 at 08:00 Dextrose 12.5 gm PRN Q15MIN PRN IV SEE COMMENTS; Start 02/10/18 at 06:30 Olanzapine (ZyPREXA ZYDIS) 5 mg PRN Q2HR PRN PO PSYCHOSIS Last administered on 03/02/18at 12:27; Start 02/10/18 at 06:45 Haloperidol Decanoate (Haldol Decanoate Im Extended Release) 450 mg Q4WK IM Last administered on 03/10/18at 08:50; Start 03/10/18 at 09:00 Trazodone HCl (Desyrel) 25 mg STK-MED ONCE .ROUTE ; Start 02/10/18 at 09:00; Stop 02/11/18 at 10:03; Status DC Trazodone HCl (Desyrel) 25 mg STK-MED ONCE .ROUTE ; Start 02/10/18 at 09:00; Stop 02/11/18 at 10:03; Status DC Trazodone HCl (Desyrel) 25 mg STK-MED ONCE .ROUTE ; Start 02/10/18 at 09:00; Stop 02/11/18 at 10:03; Status DC Trazodone HCl (Desyrel) 25 mg STK-MED ONCE .ROUTE ; Start 02/11/18 at 09:00; Stop 02/11/18 at 10:04; Status DC Clozapine (Clozaril) 25 mg HS PO Last administered on 02/16/18at 21:13; Start at 21:00; Stop 02/17/18 at 17:40; Status DC Nystatin (Nystop) 1 guanaco BID TP Last administered on 03/19/18 19:56; Start at 09:00 Trazodone HCl (Desyrel) 100 mg PRN QHS PRN PO INSOMNIA, SEPTEMBER REPEAT X1; Start at 17:00; Stop 02/16/18 at 22:42; Status DC Trazodone HCl (Desyrel) 100 mg QHS PO Last administered on 03/19/18 19:55; Start 02/16/18 at 23:00 Trazodone HCl (Desyrel) 100 mg PRN QHS PRN PO insomnia Last administered on 19:46; Start 02/16/18 at 22:45 Clozapine (Clozaril) 50 mg HS PO Last administered on 02/23/18at 19:21; Start at 21:00; Stop 02/24/18 at 16:13; Status DC Divalproex Sodium (Depakote Sprinkles) 750 mg TID PO Last administered on 03/19 19:55; Start 02/18/18 at 09:00 Haloperidol (Haldol) 5 mg DAILY PO Last administered on 03/03/18at 09:32; Start 02/20/18 at 09:00; Stop 03/03/18 at 16:23; Status DC Clozapine (Clozaril) 75 mg HS PO Last administered on 03/02/18at 19:49; Start 02/24/18 at 21:00; Stop 03/03/18 at 16:23; Status DC Clozapine (Clozaril) 100 mg HS PO ; Start 03/03/18 at 16:30; Stop 03/03/18 at 17 :06; Status DC Clozapine (Clozaril) 100 mg HS PO Last administered on 03/10/18at 20:52; Start 03/03/18 at 21:00; Stop 03/10/18 at 22:18; Status DC Sodium Chloride 500 ml @ 0 mls/hr 1X ONCE IV Last administered on 03/08/18at 13:00; Start 03/08/18 at 13:00; Stop 03/08/18 at 13:01; Status DC Sodium Chloride 500 ml @ 125 mls/hr 1X ONCE IV Last administered on at 14:30; Start 03/08/18 at 15:15; Stop 03/08/18 at 19:14; Status DC Clonazepam (KlonoPIN) 1 mg 1200,1700 PO Last administered on 03/19/18at 16:47; Start 03/10/18 at 12:00 Clonazepam (KlonoPIN) 0.5 mg DAILY PO Last administered on 03/19/18at 08:10; Start 03/10/18 at 09:00 Nystatin (Mycostatin) 5 ml QID SWSW Last administered on 03/18/18at 19:43; Start 03/10/18 at 13:00; Stop 03/19/18 at 16:01; Status DC Clozapine (Clozaril) 125 mg HS PO Last administered on 03/16/18at 20:13; Start 03/11/18 at 21:00; Stop 03/17/18 at 18:02; Status DC Cefpodoxime Proxetil (Vantin) 100 mg BID PO Last administered on 03/19/18at 08: 05; Start 03/17/18 at 21:00; Stop 03/19/18 at 16:01; Status DC Clozapine (Clozaril) 150 mg HS PO Last administered on 03/19/18at 19:55; Start 03/17/18 at 21:00 Doxycycline Hyclate (Vibra-Tab) 100 mg BID PO Last administered on 03/19/18at 19:55; Start 03/19/18 at 09:00; Stop 03/29/18 at 08:59 Doxycycline Hyclate (Vibra-Tab) 100 mg 1X ONCE PO ; Start 03/18/18 at 23:45; Stop 03/18/18 at 23:48; Status DC Lactobacillus Rhamnosus (Culturelle) 1 cap BID PO Last administered on at 19:57; Start 03/19/18 at 21:00 Active Scripts Active Reported Duoneb 0.5-3(2.5) Mg/3 Ml (Albuterol/Ipratropium) 3 Ml Ampul.neb 3 Ml NEB DAILY Zyprexa Zydis (Olanzapine) 5 Mg Tab.rapdis 5 Mg PO PRN Q2HR PRN Buspirone Hcl 10 Mg Tablet 10 Mg PO BID@1300,1700 Valproic Acid (Valproate Sodium) 250 Mg/5 Ml Solution 750 Mg PO TID Novolog Flexpen (Insulin Aspart) 100 Unit/1 Ml Insuln.pen 0-9 Unit SQ TIDWMEALS <70 follow hypoglycemic protocol 70-150 0units if eating/ 0 if not eating 151-200 4 units if eating/ 0 units if not eating 201-250 5 units if eating/ 3 units if not eating 251-300 7 units if eating/ 4 units if not eating 301-350 9 units if eating/ 5 units if not eating > 351 Call Physician for futher orders Trazodone Hcl 100 Mg Tablet 200 Mg PO PRN QHS PRN Trazodone Hcl 50 Mg Tablet 25 Mg PO TID@0900,1300,1700 Culturelle (Lactobacillus Rhamnosus Gg) 1 Each Cap.sprink 1 Each PO BID Haloperidol 5 Mg Tablet 7.5 Mg PO DAILY Tylenol (Acetaminophen) 325 Mg Tablet 650 Mg PO PRN Q6HRS PRN Buspirone Hcl 10 Mg Tablet 20 Mg PO DAILY Theophylline Anhydrous 200 Mg Tab.er.12h 200 Mg PO BID Metolazone 5 Mg Tablet 5 Mg PO DAILY Metformin Hcl 500 Mg Tablet 500 Mg PO BIDWMEALS Cardizem Tablet (Diltiazem Hcl) 120 Mg Tablet 120 Mg PO DAILY Amantadine (Amantadine Hcl) 100 Mg Tablet 100 Mg PO BID Actos (Pioglitazone Hcl) 15 Mg Tablet 15 Mg PO DAILY Mirtazapine 15 Mg Tablet 15 Mg PO QHS Haldol Decanoate 100 (Haloperidol Decanoate) 100 Mg/1 Ml Ampul 450 Mg IM Q4WK Klor-Con M20 (Potassium Chloride) 20 Meq Tab.er.prt 40 Meq PO BIDWMEALS Analgesic [place] (Methyl Salicylate/Menthol) 28 Gm Oint...g. 1 Guanaco TP PRN QID PRN Magnesium Oxide 400 Mg Tablet 400 Mg PO BID Milk Of Magnesia (Magnesium Hydroxide) 2,400 Mg/10 Ml Oral.susp 2,400 Mg PO PRN QHS PRN Maalox Advanced Suspension (Mag Hydrox/Aluminum Hyd/Simeth) 355 Ml Oral.susp 15 Ml PO PRN AFTMEALHC PRN D3-50 (Cholecalciferol (Vitamin D3)) 50,000 Unit Capsule 50,000 Unit PO QTH Clonazepam 1 Mg Tablet 1 Mg PO TID Furosemide 40 Mg Tablet 80 Mg PO [id number] Hold for SBP less than 100. After held dose, reassess in 2 hours. If SBP is above threshold, administer dose as ordered. If SBP is below threshold, contact provider for additional instructions. I have reviewed the current psychotropics carefully including drug interactions. Risk benefit ratio favors no change other than as noted in my dictated progress note. Diagnosis: Problems: (1) Depression (2) Schizoaffective disorder (3) Anxiety disorder (4) Impulse control disorder (5) Schizoaffective disorder, chronic condition with acute exacerbation KALIN STAKRS MD Mar 19, 2018 23:47
[2018-03-20 06:29] VITALS: BP 115/73
--- NOTE | 2018-03-20 06:45 | PN ---
DATE: 03/18/2018 PSYCHIATRIC PROGRESS NOTE This late entry 03/18/2018 covers elements not covered in my initial note. SUBJECTIVE: I met with the patient in the evening. The patient slept poorly the previous night. Per nursing report, she can be hateful at times, refused insulin, took it later, takes meds in ice cream, refused to eat lunch, but did eat it later. REVIEW OF SYSTEMS: Ambulation impaired with walker. No CV, , pulmonary, eye, ENT system symptoms on review. MENTAL STATUS EXAMINATION: Oriented to herself. Insight, judgment, recent memory is impaired. Language function intact. Attention span short. Mood and affect remain somewhat labile, but improved. LABORATORY DATA: Reviewed. IMPRESSION: Schizoaffective disorder, bipolar type, mixed with psychotic features, in partial remission. Anxiety disorder, unspecified. Cognitive disorder, unspecified. PLAN: No change from initial note. Clozaril was increased to 150 mg at bedtime. We will continue the rest of the psychotropics per initial note and then gradually reduce the Klonopin and trazodone during the day and perhaps the Haldol Decanoate as the Clozaril is increased. MAN Mary STARKS MD DR: TRACIE/karli JOB#: [id number] / [id number]
[2018-03-20] MEDS: INSULIN LISPRO 300 UNITS/3 ML INSULN.PEN. SQ SCH ×3 (08:00→17:31)
[2018-03-20] MEDS: IPRATRPIUM/ALBUTEROL 0.5/2.5MG 3 ML NEBU. NEB SCH (10:43)
[2018-03-20] MEDS: FUROSEMIDE 80 MG TABLET PO SCH ×2 (10:56→14:26)
[2018-03-20] MEDS: POTASSIUM CHLORIDE 20 MEQ TABLET.ER. PO SCH ×2 (10:56→17:24)
[2018-03-20] MEDS: metFORMIN 500 MG TABLET PO SCH ×2 (10:56→17:24)
[2018-03-20] MEDS: DIVALPROEX 125 MG CAP.SPRINK PO SCH ×4 (10:56→21:00)
[2018-03-20] MEDS: LACTOBACILLUS RHAMNOSUS GG 1 CAPSULE. PO SCH ×3 (10:56→21:00)
[2018-03-20] MEDS: busPIRone 10 MG TABLET. PO SCH ×3 (10:57→17:27)
[2018-03-20] MEDS: clonazePAM 0.5 MG TABLET PO SCH (10:57)
[2018-03-20] MEDS: PIOGLITAZONE 15 MG TABLET. PO SCH (10:57)
[2018-03-20] MEDS: traZODone 50 MG TABLET. PO SCH ×3 (10:58→17:27)
[2018-03-20] MEDS: metOLazone 5 MG TABLET PO SCH (10:58)
[2018-03-20] MEDS: MAGNESIUM OXIDE 400 MG TABLET PO SCH ×3 (10:58→21:00)
[2018-03-20] MEDS: DOXYCYCLINE HYCLATE 100 MG TABLET PO SCH ×2 (10:58→14:26)
[2018-03-20] MEDS: NYSTATIN TOPICAL POWDER 15GM BOTTLE. TP SCH ×2 (10:59→20:28)
[2018-03-20] MEDS: clonazePAM 1 MG TABLET PO SCH ×2 (14:26→17:27)
[2018-03-20 16:19] VITALS: BP 127/85
[2018-03-20] MEDS: CHOLECALCIFEROL (VITAMIN D3) 50,000 UNIT CAPSULE PO SCH (16:46)
[2018-03-20] MEDS: traZODone 100 MG TABLET. PO SCH ×2 (20:28→21:00)
[2018-03-20] MEDS: MIRTAZAPINE 15 MG TABLET PO SCH ×2 (20:28→21:00)
[2018-03-20] MEDS: cloZAPine 100 MG TABLET PO SCH ×2 (20:28→21:00)
--- NOTE | 2018-03-20 23:34 | PDOC ---
Exam Note: Napoleon Note: Please also refer to the separate dictated note~for this date of service dictated separately.~Patient seen individually. Discussed the patient with Nursing staff reviewed the chart.~Reviewed interim history and current functioning. Reviewed vital signs,~Labs/ Radiology~and current medications noted below. Continue current treatment with the changes noted in the dictated addendum note Assessment: Vital Signs: Vital Signs Date Time Temp Pulse Resp B/P (MAP) Pulse Ox O2 Delivery O2 Flow Rate FiO2 03/20/18 16:19 98.2 99 20 127/85 (99) 92 Room Air 03/19/18 03:55 2.0 I&O Intake and Output 03/20/18 07:00 Intake Total 720 ml Balance 720 ml Intake Oral 720 ml Labs: Laboratory Tests Test 03/20/18 08:05 03/20/18 11:33 03/20/18 16:43 03/20/18 19:38 Glucose (Fingerstick) 144 mg/dL (70-99) H 189 mg/dL (70-99) H 203 mg/dL (70-99) H 134 mg/dL (70-99) H Current Medications: Meds: Current Medications Lorazepam (Ativan) 2 mg 1X ONCE IM ; Start 02/10/18 at 04:00; Stop 02/10/18 at 04:01; Status DC Diphenhydramine HCl (Benadryl) 50 mg 1X ONCE IM ; Start 02/10/18 at 04:00; Stop 02/10/18 at 04:01; Status DC Ziprasidone (Geodon Im) 20 mg 1X ONCE IM ; Start 02/10/18 at 04:00; Stop at 04:01; Status DC Multivitamins/ Minerals 10 ml/ Folic Acid 1 mg/ Thiamine HCl 100 mg/Lactated Ringer's 1,011.1 ml @ 1,000 mls/ hr 1X ONCE IV ; Start 02/10/18 at 03:45; Stop 02/10/18 at 04:45; Status DC Magnesium Hydroxide (Milk Of Magnesia) 2,400 mg 1X ONCE PO ; Start 02/10/18 at 05:30; Stop 02/10/18 at 05:32; Status DC Potassium Chloride (KCl Oral Soln) 40 meq 1X ONCE PO ; Start 02/10/18 at 05:30 ; Stop 02/10/18 at 05:32; Status DC Acetaminophen (Tylenol) 650 mg PRN Q6HRS PRN PO PAIN / TEMP Last administered on 02/23/18 12:43; Start 02/10/18 at 06:15 Multi-Ingredient Ointment (Analgesic [place]) 1 guanaco PRN QID PRN TP MUSCLE PAIN; Start 02/10/18 at 06:15 Al Hydroxide/Mg Hydroxide (Mylanta Plus Xs) 15 ml PRN AFTMEALHC PRN PO DYSPEPSIA; Start 02/10/18 at 06:15 Magnesium Hydroxide (Milk Of Magnesia) 2,400 mg PRN QHS PRN PO CONSTIPATION Last administered on 03/01/18 18:06; Start 02/10/18 at 06:15 Influenza Virus Vaccine (Afluria Trivalent [id number] Syringe) 0.5 ml ONCE ONCE VAX IM Last administered on 02/10/18 14:21; Start 02/10/18 at 09:00; Stop at 09:01; Status DC Vitamin D (Vitamin D3) 50,000 unit QTH PO Last administered on 03/20/18 16:46 ; Start 02/13/18 at 16:00 Albuterol/ Ipratropium (Duoneb) 3 ml DAILY NEB Last administered on 03/20/18 10:43; Start 02/10/18 at 09:00 Lactobacillus Rhamnosus (Culturelle) 1 cap BID PO Last administered on 09:03; Start 02/10/18 at 09:00; Stop 02/22/18 at 18:00; Status DC Potassium Chloride (Klor-Con) 40 meq BIDWMEALS PO Last administered on 17:24; Start 02/10/18 at 08:00 Amantadine HCl (Symmetrel) 100 mg BID PO Last administered on 02/26/18 08:21; Start 02/10/18 at 09:00; Stop 02/26/18 at 11:24; Status DC Buspirone HCl (Buspar) 10 mg 1300,1700 PO Last administered on 03/20/18 17:27 ; Start 02/10/18 at 13:00 Buspirone HCl (Buspar) 20 mg DAILY PO Last administered on 03/20/18at 10:57; Start 02/10/18 at 09:00 Clonazepam (KlonoPIN) 1 mg TID PO Last administered on 03/09/18at 13:53; Start 02/10/18 at 09:00; Stop 03/09/18 at 18:43; Status DC Diltiazem HCl (Cardizem 24hr Cd) 120 mg DAILY PO Last administered on 10:58; Start 02/10/18 at 09:00 Furosemide (Lasix) 80 mg BID92 PO Last administered on 03/20/18 14:26; Start 02/10/18 at 09:00 Haloperidol (Haldol) 7.5 mg DAILY PO Last administered on 02/19/18 09:05; Start 02/10/18 at 09:00; Stop 02/19/18 at 18:16; Status DC Non-Formulary Medication (Haloperidol Decanoate (Haldol Decanoate 100)) 450 mg Q4WK IM ; Start 02/10/18 at 09:00; Stop 02/10/18 at 16:12; Status DC Non-Formulary Medication (Insulin Aspart (Novolog Flexpen)) see protocol TIDWMEALS SQ ; Start 02/10/18 at 08:00; Status UNV Magnesium Oxide (Magnesium Oxide) 400 mg BID PO Last administered on 20:28; Start 02/10/18 at 09:00 Metformin HCl (Glucophage) 500 mg BIDWMEALS PO Last administered on 03/20/18at 17:24; Start 02/10/18 at 08:00 Metolazone (Zaroxolyn) 5 mg DAILY PO Last administered on 03/20/18 10:58; Start 02/10/18 at 09:00 Mirtazapine (Remeron) 15 mg QHS PO Last administered on 03/20/18 20:28; Start 02/10/18 at 21:00 Pioglitazone HCl (Actos) 15 mg DAILY PO Last administered on 03/20/18 10:57; Start 02/10/18 at 09:00 Trazodone HCl (Desyrel) 25 mg TID@0900,1300,1700 PO Last administered on 17:27; Start 02/10/18 at 09:00 Valproic Acid (Depakene) 750 mg TID PO Last administered on 02/17/18at 21:01; Start 02/10/18 at 09:00; Stop 02/18/18 at 08:06; Status DC Insulin Human Lispro (HumaLOG) 0-9 UNITS TIDWMEALS SQ Last administered on at 17:31; Start 02/10/18 at 08:00 Dextrose 12.5 gm PRN Q15MIN PRN IV SEE COMMENTS; Start 02/10/18 at 06:30 Olanzapine (ZyPREXA ZYDIS) 5 mg PRN Q2HR PRN PO PSYCHOSIS Last administered on 03/02/18at 12:27; Start 02/10/18 at 06:45 Haloperidol Decanoate (Haldol Decanoate Im Extended Release) 450 mg Q4WK IM Last administered on 03/10/18at 08:50; Start 03/10/18 at 09:00 Trazodone HCl (Desyrel) 25 mg STK-MED ONCE .ROUTE ; Start 02/10/18 at 09:00; Stop 02/11/18 at 10:03; Status DC Trazodone HCl (Desyrel) 25 mg STK-MED ONCE .ROUTE ; Start 02/10/18 at 09:00; Stop 02/11/18 at 10:03; Status DC Trazodone HCl (Desyrel) 25 mg STK-MED ONCE .ROUTE ; Start 02/10/18 at 09:00; Stop 02/11/18 at 10:03; Status DC Trazodone HCl (Desyrel) 25 mg STK-MED ONCE .ROUTE ; Start 02/11/18 at 09:00; Stop 02/11/18 at 10:04; Status DC Clozapine (Clozaril) 25 mg HS PO Last administered on 02/16/18at 21:13; Start at 21:00; Stop 02/17/18 at 17:40; Status DC Nystatin (Nystop) 1 guanaco BID TP Last administered on 03/20/18at 20:28; Start at 09:00 Trazodone HCl (Desyrel) 100 mg PRN QHS PRN PO INSOMNIA, MAY REPEAT X1; Start at 17:00; Stop 02/16/18 at 22:42; Status DC Trazodone HCl (Desyrel) 100 mg QHS PO Last administered on 03/20/18 20:28; Start 02/16/18 at 23:00 Trazodone HCl (Desyrel) 100 mg PRN QHS PRN PO insomnia Last administered on at 19:46; Start 02/16/18 at 22:45 Clozapine (Clozaril) 50 mg HS PO Last administered on 02/23/18 19:21; Start at 21:00; Stop 02/24/18 at 16:13; Status DC Divalproex Sodium (Depakote Sprinkles) 750 mg TID PO Last administered on 03/20 20:27; Start 02/18/18 at 09:00 Haloperidol (Haldol) 5 mg DAILY PO Last administered on 03/03/18at 09:32; Start 02/20/18 at 09:00; Stop 03/03/18 at 16:23; Status DC Clozapine (Clozaril) 75 mg HS PO Last administered on 03/02/18at 19:49; Start 02/24/18 at 21:00; Stop 03/03/18 at 16:23; Status DC Clozapine (Clozaril) 100 mg HS PO ; Start 03/03/18 at 16:30; Stop 03/03/18 at 17 :06; Status DC Clozapine (Clozaril) 100 mg HS PO Last administered on 03/10/18at 20:52; Start 03/03/18 at 21:00; Stop 03/10/18 at 22:18; Status DC Sodium Chloride 500 ml @ 0 mls/hr 1X ONCE IV Last administered on 03/08/18at 13:00; Start 03/08/18 at 13:00; Stop 03/08/18 at 13:01; Status DC Sodium Chloride 500 ml @ 125 mls/hr 1X ONCE IV Last administered on at 14:30; Start 03/08/18 at 15:15; Stop 03/08/18 at 19:14; Status DC Clonazepam (KlonoPIN) 1 mg 1200,1700 PO Last administered on 03/20/18at 17:27; Start 03/10/18 at 12:00 Clonazepam (KlonoPIN) 0.5 mg DAILY PO Last administered on 03/20/18at 10:57; Start 03/10/18 at 09:00 Nystatin (Mycostatin) 5 ml QID SWSW Last administered on 03/18/18at 19:43; Start 03/10/18 at 13:00; Stop 03/19/18 at 16:01; Status DC Clozapine (Clozaril) 125 mg HS PO Last administered on 03/16/18at 20:13; Start 03/11/18 at 21:00; Stop 03/17/18 at 18:02; Status DC Cefpodoxime Proxetil (Vantin) 100 mg BID PO Last administered on 03/19/18at 08: 05; Start 03/17/18 at 21:00; Stop 03/19/18 at 16:01; Status DC Clozapine (Clozaril) 150 mg HS PO Last administered on 03/20/18at 20:28; Start 03/17/18 at 21:00 Doxycycline Hyclate (Vibra-Tab) 100 mg BID PO Last administered on 03/20/18at 14:26; Start 03/19/18 at 09:00; Stop 03/29/18 at 08:59 Doxycycline Hyclate (Vibra-Tab) 100 mg 1X ONCE PO ; Start 03/18/18 at 23:45; Stop 03/18/18 at 23:48; Status DC Lactobacillus Rhamnosus (Culturelle) 1 cap BID PO Last administered on at 20:28; Start 03/19/18 at 21:00 Active Scripts Active Reported Duoneb 0.5-3(2.5) Mg/3 Ml (Albuterol/Ipratropium) 3 Ml Ampul.neb 3 Ml NEB DAILY Zyprexa Zydis (Olanzapine) 5 Mg Tab.rapdis 5 Mg PO PRN Q2HR PRN Buspirone Hcl 10 Mg Tablet 10 Mg PO BID@1300,1700 Valproic Acid (Valproate Sodium) 250 Mg/5 Ml Solution 750 Mg PO TID Novolog Flexpen (Insulin Aspart) 100 Unit/1 Ml Insuln.pen 0-9 Unit SQ TIDWMEALS <70 follow hypoglycemic protocol 70-150 0units if eating/ 0 if not eating 151-200 4 units if eating/ 0 units if not eating 201-250 5 units if eating/ 3 units if not eating 251-300 7 units if eating/ 4 units if not eating 301-350 9 units if eating/ 5 units if not eating > 351 Call Physician for futher orders Trazodone Hcl 100 Mg Tablet 200 Mg PO PRN QHS PRN Trazodone Hcl 50 Mg Tablet 25 Mg PO TID@0900,1300,1700 Culturelle (Lactobacillus Rhamnosus Gg) 1 Each Cap.sprink 1 Each PO BID Haloperidol 5 Mg Tablet 7.5 Mg PO DAILY Tylenol (Acetaminophen) 325 Mg Tablet 650 Mg PO PRN Q6HRS PRN Buspirone Hcl 10 Mg Tablet 20 Mg PO DAILY Theophylline Anhydrous 200 Mg Tab.er.12h 200 Mg PO BID Metolazone 5 Mg Tablet 5 Mg PO DAILY Metformin Hcl 500 Mg Tablet 500 Mg PO BIDWMEALS Cardizem Tablet (Diltiazem Hcl) 120 Mg Tablet 120 Mg PO DAILY Amantadine (Amantadine Hcl) 100 Mg Tablet 100 Mg PO BID Actos (Pioglitazone Hcl) 15 Mg Tablet 15 Mg PO DAILY Mirtazapine 15 Mg Tablet 15 Mg PO QHS Haldol Decanoate 100 (Haloperidol Decanoate) 100 Mg/1 Ml Ampul 450 Mg IM Q4WK Klor-Con M20 (Potassium Chloride) 20 Meq Tab.er.prt 40 Meq PO BIDWMEALS Analgesic [place] (Methyl Salicylate/Menthol) 28 Gm Oint...g. 1 [place] TP PRN QID PRN Magnesium Oxide 400 Mg Tablet 400 Mg PO BID Milk Of Magnesia (Magnesium Hydroxide) 2,400 Mg/10 Ml Oral.susp 2,400 Mg PO PRN QHS PRN Maalox Advanced Suspension (Mag Hydrox/Aluminum Hyd/Simeth) 355 Ml Oral.susp 15 Ml PO PRN AFTMEALHC PRN D3-50 (Cholecalciferol (Vitamin D3)) 50,000 Unit Capsule 50,000 Unit PO QTH Clonazepam 1 Mg Tablet 1 Mg PO TID Furosemide 40 Mg Tablet 80 Mg PO [id number] Hold for SBP less than 100. After held dose, reassess in 2 hours. If SBP is above threshold, administer dose as ordered. If SBP is below threshold, contact provider for additional instructions. I have reviewed the current psychotropics carefully including drug interactions. Risk benefit ratio favors no change other than as noted in my dictated progress note. Diagnosis: Problems: (1) Depression (2) Schizoaffective disorder (3) Anxiety disorder (4) Impulse control disorder (5) Schizoaffective disorder, chronic condition with acute exacerbation KALIN STARKS MD Mar 20, 2018 23:34
[2018-03-21 05:52] VITALS: BP 103/71
[2018-03-21] MEDS: PIOGLITAZONE 15 MG TABLET. PO SCH (09:22)
[2018-03-21] MEDS: metOLazone 5 MG TABLET PO SCH (09:22)
[2018-03-21] MEDS: LACTOBACILLUS RHAMNOSUS GG 1 CAPSULE. PO SCH ×2 (09:22→19:59)
[2018-03-21] MEDS: MAGNESIUM OXIDE 400 MG TABLET PO SCH ×2 (09:23→19:59)
[2018-03-21] MEDS: FUROSEMIDE 80 MG TABLET PO SCH ×2 (09:23→13:48)
[2018-03-21] MEDS: POTASSIUM CHLORIDE 20 MEQ TABLET.ER. PO SCH ×2 (09:23→17:01)
[2018-03-21] MEDS: DOXYCYCLINE HYCLATE 100 MG TABLET PO SCH ×2 (09:23→20:01)
[2018-03-21] MEDS: metFORMIN 500 MG TABLET PO SCH ×2 (09:24→17:00)
[2018-03-21] MEDS: traZODone 50 MG TABLET. PO SCH ×3 (09:24→17:01)
[2018-03-21] MEDS: busPIRone 10 MG TABLET. PO SCH ×3 (09:25→17:00)
[2018-03-21] MEDS: DIVALPROEX 125 MG CAP.SPRINK PO SCH ×3 (09:25→19:59)
[2018-03-21] MEDS: INSULIN LISPRO 300 UNITS/3 ML INSULN.PEN. SQ SCH ×3 (09:27→17:05)
[2018-03-21] MEDS: clonazePAM 0.5 MG TABLET PO SCH (09:29)
[2018-03-21] MEDS: NYSTATIN TOPICAL POWDER 15GM BOTTLE. TP SCH ×2 (09:38→20:04)
[2018-03-21] MEDS: IPRATRPIUM/ALBUTEROL 0.5/2.5MG 3 ML NEBU. NEB SCH (11:11)
[2018-03-21] MEDS: clonazePAM 1 MG TABLET PO SCH ×3 (12:52→20:02)
[2018-03-21 15:54] VITALS: BP 127/85
[2018-03-21] MEDS: traZODone 100 MG TABLET. PO SCH (19:59)
[2018-03-21] MEDS: MIRTAZAPINE 15 MG TABLET PO SCH (19:59)
[2018-03-21] MEDS: cloZAPine 100 MG TABLET PO SCH (20:02)
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
--- NOTE | 2018-03-21 23:46 | PDOC ---
Exam Note: [place] Note: Please also refer to the separate dictated note~for this date of service dictated separately.~Patient seen individually. Discussed the patient with Nursing staff reviewed the chart.~Reviewed interim history and current functioning. Reviewed vital signs,~Labs/ Radiology~and current medications noted below. Continue current treatment with the changes noted in the dictated addendum note Assessment: Vital Signs: Vital Signs Date Time Temp Pulse Resp B/P (MAP) Pulse Ox O2 Delivery O2 Flow Rate FiO2 03/21/18 15:54 97.9 94 22 127/85 (99) 93 Room Air 03/19/18 03:55 2.0 I&O Intake and Output 03/21/18 07:00 Intake Total 240 ml Balance 240 ml Intake Oral 240 ml # Bowel Movements 1 Labs: Laboratory Tests Test 03/21/18 08:02 03/21/18 11:26 03/21/18 16:25 03/21/18 19:08 Glucose (Fingerstick) 234 mg/dL (70-99) H 197 mg/dL (70-99) H 162 mg/dL (70-99) H 203 mg/dL (70-99) H Current Medications: Meds: Current Medications Lorazepam (Ativan) 2 mg 1X ONCE IM ; Start 02/10/18 at 04:00; Stop 02/10/18 at 04:01; Status DC Diphenhydramine HCl (Benadryl) 50 mg 1X ONCE IM ; Start 02/10/18 at 04:00; Stop 02/10/18 at 04:01; Status DC Ziprasidone (Geodon Im) 20 mg 1X ONCE IM ; Start 02/10/18 at 04:00; Stop at 04:01; Status DC Multivitamins/ Minerals 10 ml/ Folic Acid 1 mg/ Thiamine HCl 100 mg/Lactated Ringer's 1,011.1 ml @ 1,000 mls/ hr 1X ONCE IV ; Start 02/10/18 at 03:45; Stop 02/10/18 at 04:45; Status DC Magnesium Hydroxide (Milk Of Magnesia) 2,400 mg 1X ONCE PO ; Start 02/10/18 at 05:30; Stop 02/10/18 at 05:32; Status DC Potassium Chloride (KCl Oral Soln) 40 meq 1X ONCE PO ; Start 02/10/18 at 05:30 ; Stop 02/10/18 at 05:32; Status DC Acetaminophen (Tylenol) 650 mg PRN Q6HRS PRN PO PAIN / TEMP Last administered on 02/23/18at 12:43; Start 02/10/18 at 06:15 Multi-Ingredient Ointment (Analgesic [place]) 1 guanaco PRN QID PRN TP MUSCLE PAIN; Start 02/10/18 at 06:15 Al Hydroxide/Mg Hydroxide (Mylanta Plus Xs) 15 ml PRN AFTMEALHC PRN PO DYSPEPSIA; Start 02/10/18 at 06:15 Magnesium Hydroxide (Milk Of Magnesia) 2,400 mg PRN QHS PRN PO CONSTIPATION Last administered on 03/01/18 18:06; Start 02/10/18 at 06:15 Influenza Virus Vaccine (Afluria Trivalent [id number] Syringe) 0.5 ml ONCE ONCE VAX IM Last administered on 02/10/18at 14:21; Start 02/10/18 at 09:00; Stop at 09:01; Status DC Vitamin D (Vitamin D3) 50,000 unit QTH PO Last administered on 03/20/18at 16:46 ; Start 02/13/18 at 16:00 Albuterol/ Ipratropium (Duoneb) 3 ml DAILY NEB Last administered on 03/21/18at 11:11; Start 02/10/18 at 09:00 Lactobacillus Rhamnosus (Culturelle) 1 cap BID PO Last administered on at 09:03; Start 02/10/18 at 09:00; Stop 02/22/18 at 18:00; Status DC Potassium Chloride (Klor-Con) 40 meq BIDWMEALS PO Last administered on at 17:01; Start 02/10/18 at 08:00 Amantadine HCl (Symmetrel) 100 mg BID PO Last administered on 02/26/18 08:21; Start 02/10/18 at 09:00; Stop 02/26/18 at 11:24; Status DC Buspirone HCl (Buspar) 10 mg 1300,1700 PO Last administered on 03/21/18at 17:00 ; Start 02/10/18 at 13:00 Buspirone HCl (Buspar) 20 mg DAILY PO Last administered on 03/21/18at 09:25; Start 02/10/18 at 09:00 Clonazepam (KlonoPIN) 1 mg TID PO Last administered on 03/09/18 13:53; Start 02/10/18 at 09:00; Stop 03/09/18 at 18:43; Status DC Diltiazem HCl (Cardizem 24hr Cd) 120 mg DAILY PO Last administered on 09:23; Start 02/10/18 at 09:00 Furosemide (Lasix) 80 mg BID92 PO Last administered on 03/21/18 13:48; Start 02/10/18 at 09:00 Haloperidol (Haldol) 7.5 mg DAILY PO Last administered on 02/19/18 09:05; Start 02/10/18 at 09:00; Stop 02/19/18 at 18:16; Status DC Non-Formulary Medication (Haloperidol Decanoate (Haldol Decanoate 100)) 450 mg Q4WK IM ; Start 02/10/18 at 09:00; Stop 02/10/18 at 16:12; Status DC Non-Formulary Medication (Insulin Aspart (Novolog Flexpen)) see protocol TIDWMEALS SQ ; Start 02/10/18 at 08:00; Status UNV Magnesium Oxide (Magnesium Oxide) 400 mg BID PO Last administered on 19:59; Start 02/10/18 at 09:00 Metformin HCl (Glucophage) 500 mg BIDWMEALS PO Last administered on 03/21/18 17:00; Start 02/10/18 at 08:00 Metolazone (Zaroxolyn) 5 mg DAILY PO Last administered on 03/21/18 09:22; Start 02/10/18 at 09:00 Mirtazapine (Remeron) 15 mg QHS PO Last administered on 03/21/18 19:59; Start 02/10/18 at 21:00 Pioglitazone HCl (Actos) 15 mg DAILY PO Last administered on 03/21/18 09:22; Start 02/10/18 at 09:00 Trazodone HCl (Desyrel) 25 mg TID@0900,1300,1700 PO Last administered on 17:01; Start 02/10/18 at 09:00 Valproic Acid (Depakene) 750 mg TID PO Last administered on 02/17/18at 21:01; Start 02/10/18 at 09:00; Stop 02/18/18 at 08:06; Status DC Insulin Human Lispro (HumaLOG) 0-9 UNITS TIDWMEALS SQ Last administered on at 17:05; Start 02/10/18 at 08:00 Dextrose 12.5 gm PRN Q15MIN PRN IV SEE COMMENTS; Start 02/10/18 at 06:30 Olanzapine (ZyPREXA ZYDIS) 5 mg PRN Q2HR PRN PO PSYCHOSIS Last administered on 03/02/18at 12:27; Start 02/10/18 at 06:45 Haloperidol Decanoate (Haldol Decanoate Im Extended Release) 450 mg Q4WK IM Last administered on 03/10/18at 08:50; Start 03/10/18 at 09:00 Trazodone HCl (Desyrel) 25 mg STK-MED ONCE .ROUTE ; Start 02/10/18 at 09:00; Stop 02/11/18 at 10:03; Status DC Trazodone HCl (Desyrel) 25 mg STK-MED ONCE .ROUTE ; Start 02/10/18 at 09:00; Stop 02/11/18 at 10:03; Status DC Trazodone HCl (Desyrel) 25 mg STK-MED ONCE .ROUTE ; Start 02/10/18 at 09:00; Stop 02/11/18 at 10:03; Status DC Trazodone HCl (Desyrel) 25 mg STK-MED ONCE .ROUTE ; Start 02/11/18 at 09:00; Stop 02/11/18 at 10:04; Status DC Clozapine (Clozaril) 25 mg HS PO Last administered on 02/16/18at 21:13; Start at 21:00; Stop 02/17/18 at 17:40; Status DC Nystatin (Nystop) 1 guanaco BID TP Last administered on 03/21/18at 20:04; Start at 09:00 Trazodone HCl (Desyrel) 100 mg PRN QHS PRN PO INSOMNIA, MAY REPEAT X1; Start at 17:00; Stop 02/16/18 at 22:42; Status DC Trazodone HCl (Desyrel) 100 mg QHS PO Last administered on 03/21/18at 19:59; Start 02/16/18 at 23:00 Trazodone HCl (Desyrel) 100 mg PRN QHS PRN PO insomnia Last administered on at 19:46; Start 02/16/18 at 22:45 Clozapine (Clozaril) 50 mg HS PO Last administered on 02/23/18at 19:21; Start at 21:00; Stop 02/24/18 at 16:13; Status DC Divalproex Sodium (Depakote Sprinkles) 750 mg TID PO Last administered on 03/21at 19:59; Start 02/18/18 at 09:00 Haloperidol (Haldol) 5 mg DAILY PO Last administered on 03/03/18at 09:32; Start 02/20/18 at 09:00; Stop 03/03/18 at 16:23; Status DC Clozapine (Clozaril) 75 mg HS PO Last administered on 03/02/18at 19:49; Start 02/24/18 at 21:00; Stop 03/03/18 at 16:23; Status DC Clozapine (Clozaril) 100 mg HS PO ; Start 03/03/18 at 16:30; Stop 03/03/18 at 17 :06; Status DC Clozapine (Clozaril) 100 mg HS PO Last administered on 03/10/18at 20:52; Start 03/03/18 at 21:00; Stop 03/10/18 at 22:18; Status DC Sodium Chloride 500 ml @ 0 mls/hr 1X ONCE IV Last administered on 03/08/18at 13:00; Start 03/08/18 at 13:00; Stop 03/08/18 at 13:01; Status DC Sodium Chloride 500 ml @ 125 mls/hr 1X ONCE IV Last administered on at 14:30; Start 03/08/18 at 15:15; Stop 03/08/18 at 19:14; Status DC Clonazepam (KlonoPIN) 1 mg 1200,1700 PO Last administered on 03/21/18at 17:00; Start 03/10/18 at 12:00; Stop 03/21/18 at 18:15; Status DC Clonazepam (KlonoPIN) 0.5 mg DAILY PO Last administered on 03/21/18at 09:29; Start 03/10/18 at 09:00; Stop 03/21/18 at 17:54; Status DC Nystatin (Mycostatin) 5 ml QID SWSW Last administered on 03/18/18at 19:43; Start 03/10/18 at 13:00; Stop 03/19/18 at 16:01; Status DC Clozapine (Clozaril) 125 mg HS PO Last administered on 03/16/18at 20:13; Start 03/11/18 at 21:00; Stop 03/17/18 at 18:02; Status DC Cefpodoxime Proxetil (Vantin) 100 mg BID PO Last administered on 03/19/18at 08: 05; Start 03/17/18 at 21:00; Stop 03/19/18 at 16:01; Status DC Clozapine (Clozaril) 150 mg HS PO Last administered on 03/21/18at 20:02; Start 03/17/18 at 21:00 Doxycycline Hyclate (Vibra-Tab) 100 mg BID PO Last administered on 03/21/18at 20:01; Start 03/19/18 at 09:00; Stop 03/29/18 at 08:59 Doxycycline Hyclate (Vibra-Tab) 100 mg 1X ONCE PO ; Start 03/18/18 at 23:45; Stop 03/18/18 at 23:48; Status DC Lactobacillus Rhamnosus (Culturelle) 1 cap BID PO Last administered on at 19:59; Start 03/19/18 at 21:00 Clonazepam (KlonoPIN) 1 mg 1200 PO ; Start 03/22/18 at 12:00; Stop 03/24/18 at 11:59 Clonazepam (KlonoPIN) 1 mg QHS PO Last administered on 03/21/18at 20:02; Start 03/21/18 at 21:00 Clonazepam (KlonoPIN) 0.5 mg 1200 PO ; Start 03/24/18 at 12:00 Active Scripts Active Reported Duoneb 0.5-3(2.5) Mg/3 Ml (Albuterol/Ipratropium) 3 Ml Ampul.neb 3 Ml NEB DAILY Zyprexa Zydis (Olanzapine) 5 Mg Tab.rapdis 5 Mg PO PRN Q2HR PRN Buspirone Hcl 10 Mg Tablet 10 Mg PO BID@1300,1700 Valproic Acid (Valproate Sodium) 250 Mg/5 Ml Solution 750 Mg PO TID Novolog Flexpen (Insulin Aspart) 100 Unit/1 Ml Insuln.pen 0-9 Unit SQ TIDWMEALS <70 follow hypoglycemic protocol 70-150 0units if eating/ 0 if not eating 151-200 4 units if eating/ 0 units if not eating 201-250 5 units if eating/ 3 units if not eating 251-300 7 units if eating/ 4 units if not eating 301-350 9 units if eating/ 5 units if not eating > 351 Call Physician for futher orders Trazodone Hcl 100 Mg Tablet 200 Mg PO PRN QHS PRN Trazodone Hcl 50 Mg Tablet 25 Mg PO TID@0900,1300,1700 Culturelle (Lactobacillus Rhamnosus Gg) 1 Each Cap.sprink 1 Each PO BID Haloperidol 5 Mg Tablet 7.5 Mg PO DAILY Tylenol (Acetaminophen) 325 Mg Tablet 650 Mg PO PRN Q6HRS PRN Buspirone Hcl 10 Mg Tablet 20 Mg PO DAILY Theophylline Anhydrous 200 Mg Tab.er.12h 200 Mg PO BID Metolazone 5 Mg Tablet 5 Mg PO DAILY Metformin Hcl 500 Mg Tablet 500 Mg PO BIDWMEALS Cardizem Tablet (Diltiazem Hcl) 120 Mg Tablet 120 Mg PO DAILY Amantadine (Amantadine Hcl) 100 Mg Tablet 100 Mg PO BID Actos (Pioglitazone Hcl) 15 Mg Tablet 15 Mg PO DAILY Mirtazapine 15 Mg Tablet 15 Mg PO QHS Haldol Decanoate 100 (Haloperidol Decanoate) 100 Mg/1 Ml Ampul 450 Mg IM Q4WK Klor-Con M20 (Potassium Chloride) 20 Meq Tab.er.prt 40 Meq PO BIDWMEALS Analgesic [place] (Methyl Salicylate/Menthol) 28 Gm Oint...g. 1 Guanaco TP PRN QID PRN Magnesium Oxide 400 Mg Tablet 400 Mg PO BID Milk Of Magnesia (Magnesium Hydroxide) 2,400 Mg/10 Ml Oral.susp 2,400 Mg PO PRN QHS PRN Maalox Advanced Suspension (Mag Hydrox/Aluminum Hyd/Simeth) 355 Ml Oral.susp 15 Ml PO PRN AFTMEALHC PRN D3-50 (Cholecalciferol (Vitamin D3)) 50,000 Unit Capsule 50,000 Unit PO QTH Clonazepam 1 Mg Tablet 1 Mg PO TID Furosemide 40 Mg Tablet 80 Mg PO BID92 Hold for SBP less than 100. After held dose, reassess in 2 hours. If SBP is above threshold, administer dose as ordered. If SBP is below threshold, contact provider for additional instructions. I have reviewed the current psychotropics carefully including drug interactions. Risk benefit ratio favors no change other than as noted in my dictated progress note. Diagnosis: Problems: (1) Depression (2) Schizoaffective disorder (3) Anxiety disorder (4) Impulse control disorder (5) Schizoaffective disorder, chronic condition with acute exacerbation KALIN STARKS MD Mar 21, 2018 23:46
[2018-03-22 06:29] VITALS: BP 122/80
[2018-03-22] MEDS: metFORMIN 500 MG TABLET PO SCH ×2 (08:27→18:12)
[2018-03-22] MEDS: MAGNESIUM OXIDE 400 MG TABLET PO SCH ×2 (08:28→19:36)
[2018-03-22] MEDS: traZODone 50 MG TABLET. PO SCH ×3 (08:28→17:00)
[2018-03-22] MEDS: POTASSIUM CHLORIDE 20 MEQ TABLET.ER. PO SCH ×2 (08:28→18:12)
[2018-03-22] MEDS: PIOGLITAZONE 15 MG TABLET. PO SCH (08:28)
[2018-03-22] MEDS: LACTOBACILLUS RHAMNOSUS GG 1 CAPSULE. PO SCH ×2 (08:28→19:36)
[2018-03-22] MEDS: busPIRone 10 MG TABLET. PO SCH ×3 (08:29→18:11)
[2018-03-22] MEDS: DIVALPROEX 125 MG CAP.SPRINK PO SCH ×3 (08:29→19:36)
[2018-03-22] MEDS: FUROSEMIDE 80 MG TABLET PO SCH ×2 (08:29→13:56)
[2018-03-22] MEDS: DOXYCYCLINE HYCLATE 100 MG TABLET PO SCH ×2 (08:29→19:36)
[2018-03-22] MEDS: metOLazone 5 MG TABLET PO SCH (08:31)
[2018-03-22] MEDS: INSULIN LISPRO 300 UNITS/3 ML INSULN.PEN. SQ SCH ×3 (08:31→17:00)
[2018-03-22] MEDS: NYSTATIN TOPICAL POWDER 15GM BOTTLE. TP SCH ×2 (08:31→19:40)
[2018-03-22] MEDS: IPRATRPIUM/ALBUTEROL 0.5/2.5MG 3 ML NEBU. NEB SCH (10:27)
[2018-03-22] MEDS: clonazePAM 1 MG TABLET PO SCH ×2 (13:55→19:35)
[2018-03-22 17:07] VITALS: BP 121/75
[2018-03-22] MEDS: traZODone 100 MG TABLET. PO SCH (19:35)
[2018-03-22] MEDS: cloZAPine 100 MG TABLET PO SCH (19:36)
[2018-03-22] MEDS: MIRTAZAPINE 15 MG TABLET PO SCH (19:36)
--- NOTE | 2018-03-22 20:05 | PN ---
DATE: 03/20/2018 PSYCHIATRIC PROGRESS NOTE This is a late entry of 03/20/2018, covers elements not covered in my initial note. SUBJECTIVE: I met with the patient in the evening, staffed at treatment team meeting with the entire team in the morning. The patient continues to have some mood lability, anxious, paranoia, but overall better. She slept 4 hours previous night. BUN 38, creatinine 1.6 on the . I will defer to Dr. Puga. REVIEW OF SYSTEMS: Ambulation impaired with walker. No CV, , pulmonary, eye, ENT system symptoms on review. MENTAL STATUS EXAM: Reasonably oriented, smiling, interacting with me. Speech moderate latency, often responses monosyllabic. Abstraction fair, computation impaired, language function intact, attention span short. Mood and affect remains intermittently anxious, labile, but better than before. LABORATORY DATA: Reviewed. IMPRESSION: Schizoaffective disorder, bipolar type, mixed with psychotic features, in partial remission; anxiety disorder, unspecified. PLAN: Continue psychotropics mentioned in my initial note. May consider tapering the Klonopin if sedation persists. Rest unchanged. Gradually increase Clozaril. MAN Mary STARKS MD DR: TRACIE/karli JOB#: [id number] / [id number]
--- NOTE | 2018-03-22 23:16 | PDOC ---
Exam Note: Napoleon Note: Please also refer to the separate dictated note~for this date of service dictated separately.~Patient seen individually. Discussed the patient with Nursing staff reviewed the chart.~Reviewed interim history and current functioning. Reviewed vital signs,~Labs/ Radiology~and current medications noted below. Continue current treatment with the changes noted in the dictated addendum note Assessment: Vital Signs: Vital Signs Date Time Temp Pulse Resp B/P (MAP) Pulse Ox O2 Delivery O2 Flow Rate FiO2 03/22/18 17:07 97.6 75 20 121/75 (90) 99 Room Air 03/19/18 03:55 2.0 I&O Intake and Output 03/22/18 07:00 Intake Total 1200 ml Balance 1200 ml Intake Oral 1200 ml # Bowel Movements 2 Labs: Laboratory Tests Test 03/22/18 08:07 03/22/18 11:51 03/22/18 17:20 03/22/18 19:15 Glucose (Fingerstick) 199 mg/dL (70-99) H 269 mg/dL (70-99) H 271 mg/dL (70-99) H 184 mg/dL (70-99) H Current Medications: Meds: Current Medications Lorazepam (Ativan) 2 mg 1X ONCE IM ; Start 02/10/18 at 04:00; Stop 02/10/18 at 04:01; Status DC Diphenhydramine HCl (Benadryl) 50 mg 1X ONCE IM ; Start 02/10/18 at 04:00; Stop 02/10/18 at 04:01; Status DC Ziprasidone (Geodon Im) 20 mg 1X ONCE IM ; Start 02/10/18 at 04:00; Stop at 04:01; Status DC Multivitamins/ Minerals 10 ml/ Folic Acid 1 mg/ Thiamine HCl 100 mg/Lactated Ringer's 1,011.1 ml @ 1,000 mls/ hr 1X ONCE IV ; Start 02/10/18 at 03:45; Stop 02/10/18 at 04:45; Status DC Magnesium Hydroxide (Milk Of Magnesia) 2,400 mg 1X ONCE PO ; Start 02/10/18 at 05:30; Stop 02/10/18 at 05:32; Status DC Potassium Chloride (KCl Oral Soln) 40 meq 1X ONCE PO ; Start 02/10/18 at 05:30 ; Stop 02/10/18 at 05:32; Status DC Acetaminophen (Tylenol) 650 mg PRN Q6HRS PRN PO PAIN / TEMP Last administered on 02/23/18at 12:43; Start 02/10/18 at 06:15 Multi-Ingredient Ointment (Analgesic Roscoe) 1 guanaco PRN QID PRN TP MUSCLE PAIN; Start 02/10/18 at 06:15 Al Hydroxide/Mg Hydroxide (Mylanta Plus Xs) 15 ml PRN AFTMEALHC PRN PO DYSPEPSIA; Start 02/10/18 at 06:15 Magnesium Hydroxide (Milk Of Magnesia) 2,400 mg PRN QHS PRN PO CONSTIPATION Last administered on 03/01/18 18:06; Start 02/10/18 at 06:15 Influenza Virus Vaccine (Afluria Trivalent 4030-1278 Syringe) 0.5 ml ONCE ONCE VAX IM Last administered on 02/10/18 14:21; Start 02/10/18 at 09:00; Stop at 09:01; Status DC Vitamin D (Vitamin D3) 50,000 unit QTH PO Last administered on 03/20/18at 16:46 ; Start 02/13/18 at 16:00 Albuterol/ Ipratropium (Duoneb) 3 ml DAILY NEB Last administered on 03/22/18at 10:27; Start 02/10/18 at 09:00 Lactobacillus Rhamnosus (Culturelle) 1 cap BID PO Last administered on at 09:03; Start 02/10/18 at 09:00; Stop 02/22/18 at 18:00; Status DC Potassium Chloride (Klor-Con) 40 meq BIDWMEALS PO Last administered on at 18:12; Start 02/10/18 at 08:00 Amantadine HCl (Symmetrel) 100 mg BID PO Last administered on 02/26/18 08:21; Start 02/10/18 at 09:00; Stop 02/26/18 at 11:24; Status DC Buspirone HCl (Buspar) 10 mg 1300,1700 PO Last administered on 03/22/18at 18:11 ; Start 02/10/18 at 13:00 Buspirone HCl (Buspar) 20 mg DAILY PO Last administered on 03/22/18at 08:29; Start 02/10/18 at 09:00 Clonazepam (KlonoPIN) 1 mg TID PO Last administered on 03/09/18 13:53; Start 02/10/18 at 09:00; Stop 03/09/18 at 18:43; Status DC Diltiazem HCl (Cardizem 24hr Cd) 120 mg DAILY PO Last administered on 08:29; Start 02/10/18 at 09:00 Furosemide (Lasix) 80 mg BID92 PO Last administered on 03/22/18 13:56; Start 02/10/18 at 09:00 Haloperidol (Haldol) 7.5 mg DAILY PO Last administered on 02/19/18 09:05; Start 02/10/18 at 09:00; Stop 02/19/18 at 18:16; Status DC Non-Formulary Medication (Haloperidol Decanoate (Haldol Decanoate 100)) 450 mg Q4WK IM ; Start 02/10/18 at 09:00; Stop 02/10/18 at 16:12; Status DC Non-Formulary Medication (Insulin Aspart (Novolog Flexpen)) see protocol TIDWMEALS SQ ; Start 02/10/18 at 08:00; Status UNV Magnesium Oxide (Magnesium Oxide) 400 mg BID PO Last administered on 19:36; Start 02/10/18 at 09:00 Metformin HCl (Glucophage) 500 mg BIDWMEALS PO Last administered on 03/22/18 18:12; Start 02/10/18 at 08:00 Metolazone (Zaroxolyn) 5 mg DAILY PO Last administered on 03/22/18 08:31; Start 02/10/18 at 09:00 Mirtazapine (Remeron) 15 mg QHS PO Last administered on 03/22/18 19:36; Start 02/10/18 at 21:00 Pioglitazone HCl (Actos) 15 mg DAILY PO Last administered on 03/22/18 08:28; Start 02/10/18 at 09:00 Trazodone HCl (Desyrel) 25 mg TID@0900,1300,1700 PO Last administered on 17:00; Start 02/10/18 at 09:00 Valproic Acid (Depakene) 750 mg TID PO Last administered on 02/17/18at 21:01; Start 02/10/18 at 09:00; Stop 02/18/18 at 08:06; Status DC Insulin Human Lispro (HumaLOG) 0-9 UNITS TIDWMEALS SQ Last administered on at 17:00; Start 02/10/18 at 08:00 Dextrose 12.5 gm PRN Q15MIN PRN IV SEE COMMENTS; Start 02/10/18 at 06:30 Olanzapine (ZyPREXA ZYDIS) 5 mg PRN Q2HR PRN PO PSYCHOSIS Last administered on 03/02/18at 12:27; Start 02/10/18 at 06:45 Haloperidol Decanoate (Haldol Decanoate Im Extended Release) 450 mg Q4WK IM Last administered on 03/10/18at 08:50; Start 03/10/18 at 09:00 Trazodone HCl (Desyrel) 25 mg STK-MED ONCE .ROUTE ; Start 02/10/18 at 09:00; Stop 02/11/18 at 10:03; Status DC Trazodone HCl (Desyrel) 25 mg STK-MED ONCE .ROUTE ; Start 02/10/18 at 09:00; Stop 02/11/18 at 10:03; Status DC Trazodone HCl (Desyrel) 25 mg STK-MED ONCE .ROUTE ; Start 02/10/18 at 09:00; Stop 02/11/18 at 10:03; Status DC Trazodone HCl (Desyrel) 25 mg STK-MED ONCE .ROUTE ; Start 02/11/18 at 09:00; Stop 02/11/18 at 10:04; Status DC Clozapine (Clozaril) 25 mg HS PO Last administered on 02/16/18at 21:13; Start at 21:00; Stop 02/17/18 at 17:40; Status DC Nystatin (Nystop) 1 guanaco BID TP Last administered on 03/22/18at 19:40; Start at 09:00 Trazodone HCl (Desyrel) 100 mg PRN QHS PRN PO INSOMNIA, MAY REPEAT X1; Start at 17:00; Stop 02/16/18 at 22:42; Status DC Trazodone HCl (Desyrel) 100 mg QHS PO Last administered on 03/22/18at 19:35; Start 02/16/18 at 23:00 Trazodone HCl (Desyrel) 100 mg PRN QHS PRN PO insomnia Last administered on at 19:46; Start 02/16/18 at 22:45 Clozapine (Clozaril) 50 mg HS PO Last administered on 02/23/18at 19:21; Start at 21:00; Stop 02/24/18 at 16:13; Status DC Divalproex Sodium (Depakote Sprinkles) 750 mg TID PO Last administered on 03/22at 19:36; Start 02/18/18 at 09:00 Haloperidol (Haldol) 5 mg DAILY PO Last administered on 03/03/18at 09:32; Start 02/20/18 at 09:00; Stop 03/03/18 at 16:23; Status DC Clozapine (Clozaril) 75 mg HS PO Last administered on 03/02/18at 19:49; Start 02/24/18 at 21:00; Stop 03/03/18 at 16:23; Status DC Clozapine (Clozaril) 100 mg HS PO ; Start 03/03/18 at 16:30; Stop 03/03/18 at 17 :06; Status DC Clozapine (Clozaril) 100 mg HS PO Last administered on 03/10/18at 20:52; Start 03/03/18 at 21:00; Stop 03/10/18 at 22:18; Status DC Sodium Chloride 500 ml @ 0 mls/hr 1X ONCE IV Last administered on 03/08/18at 13:00; Start 03/08/18 at 13:00; Stop 03/08/18 at 13:01; Status DC Sodium Chloride 500 ml @ 125 mls/hr 1X ONCE IV Last administered on at 14:30; Start 03/08/18 at 15:15; Stop 03/08/18 at 19:14; Status DC Clonazepam (KlonoPIN) 1 mg 1200,1700 PO Last administered on 03/21/18at 17:00; Start 03/10/18 at 12:00; Stop 03/21/18 at 18:15; Status DC Clonazepam (KlonoPIN) 0.5 mg DAILY PO Last administered on 03/21/18at 09:29; Start 03/10/18 at 09:00; Stop 03/21/18 at 17:54; Status DC Nystatin (Mycostatin) 5 ml QID SWSW Last administered on 03/18/18at 19:43; Start 03/10/18 at 13:00; Stop 03/19/18 at 16:01; Status DC Clozapine (Clozaril) 125 mg HS PO Last administered on 03/16/18at 20:13; Start 03/11/18 at 21:00; Stop 03/17/18 at 18:02; Status DC Cefpodoxime Proxetil (Vantin) 100 mg BID PO Last administered on 03/19/18at 08: 05; Start 03/17/18 at 21:00; Stop 03/19/18 at 16:01; Status DC Clozapine (Clozaril) 150 mg HS PO Last administered on 03/22/18at 19:36; Start 03/17/18 at 21:00 Doxycycline Hyclate (Vibra-Tab) 100 mg BID PO Last administered on 03/22/18at 19:36; Start 03/19/18 at 09:00; Stop 03/29/18 at 08:59 Doxycycline Hyclate (Vibra-Tab) 100 mg 1X ONCE PO ; Start 03/18/18 at 23:45; Stop 03/18/18 at 23:48; Status DC Lactobacillus Rhamnosus (Culturelle) 1 cap BID PO Last administered on at 19:36; Start 03/19/18 at 21:00 Clonazepam (KlonoPIN) 1 mg 1200 PO Last administered on 03/22/18at 13:55; Start 03/22/18 at 12:00; Stop 03/24/18 at 11:59 Clonazepam (KlonoPIN) 1 mg QHS PO Last administered on 03/22/18at 19:35; Start 03/21/18 at 21:00 Clonazepam (KlonoPIN) 0.5 mg 1200 PO ; Start 03/24/18 at 12:00 Active Scripts Active Reported Duoneb 0.5-3(2.5) Mg/3 Ml (Albuterol/Ipratropium) 3 Ml Ampul.neb 3 Ml NEB DAILY Zyprexa Zydis (Olanzapine) 5 Mg Tab.rapdis 5 Mg PO PRN Q2HR PRN Buspirone Hcl 10 Mg Tablet 10 Mg PO BID@1300,1700 Valproic Acid (Valproate Sodium) 250 Mg/5 Ml Solution 750 Mg PO TID Novolog Flexpen (Insulin Aspart) 100 Unit/1 Ml Insuln.pen 0-9 Unit SQ TIDWMEALS <70 follow hypoglycemic protocol 70-150 0units if eating/ 0 if not eating 151-200 4 units if eating/ 0 units if not eating 201-250 5 units if eating/ 3 units if not eating 251-300 7 units if eating/ 4 units if not eating 301-350 9 units if eating/ 5 units if not eating > 351 Call Physician for futher orders Trazodone Hcl 100 Mg Tablet 200 Mg PO PRN QHS PRN Trazodone Hcl 50 Mg Tablet 25 Mg PO TID@0900,1300,1700 Culturelle (Lactobacillus Rhamnosus Gg) 1 Each Cap.sprink 1 Each PO BID Haloperidol 5 Mg Tablet 7.5 Mg PO DAILY Tylenol (Acetaminophen) 325 Mg Tablet 650 Mg PO PRN Q6HRS PRN Buspirone Hcl 10 Mg Tablet 20 Mg PO DAILY Theophylline Anhydrous 200 Mg Tab.er.12h 200 Mg PO BID Metolazone 5 Mg Tablet 5 Mg PO DAILY Metformin Hcl 500 Mg Tablet 500 Mg PO BIDWMEALS Cardizem Tablet (Diltiazem Hcl) 120 Mg Tablet 120 Mg PO DAILY Amantadine (Amantadine Hcl) 100 Mg Tablet 100 Mg PO BID Actos (Pioglitazone Hcl) 15 Mg Tablet 15 Mg PO DAILY Mirtazapine 15 Mg Tablet 15 Mg PO QHS Haldol Decanoate 100 (Haloperidol Decanoate) 100 Mg/1 Ml Ampul 450 Mg IM Q4WK Klor-Con M20 (Potassium Chloride) 20 Meq Tab.er.prt 40 Meq PO BIDWMEALS Analgesic [place]coe (Methyl Salicylate/Menthol) 28 Gm Oint...g. 1 Guanaco TP PRN QID PRN Magnesium Oxide 400 Mg Tablet 400 Mg PO BID Milk Of Magnesia (Magnesium Hydroxide) 2,400 Mg/10 Ml Oral.susp 2,400 Mg PO PRN QHS PRN Maalox Advanced Suspension (Mag Hydrox/Aluminum Hyd/Simeth) 355 Ml Oral.susp 15 Ml PO PRN AFTMEALHC PRN D3-50 (Cholecalciferol (Vitamin D3)) 50,000 Unit Capsule 50,000 Unit PO QTH Clonazepam 1 Mg Tablet 1 Mg PO TID Furosemide 40 Mg Tablet 80 Mg PO [id number] Hold for SBP less than 100. After held dose, reassess in 2 hours. If SBP is above threshold, administer dose as ordered. If SBP is below threshold, contact provider for additional instructions. I have reviewed the current psychotropics carefully including drug interactions. Risk benefit ratio favors no change other than as noted in my dictated progress note. Diagnosis: Problems: (1) Depression (2) Schizoaffective disorder (3) Anxiety disorder (4) Impulse control disorder (5) Schizoaffective disorder, chronic condition with acute exacerbation KALIN STARKS MD Mar 22, 2018 23:16
--- NOTE | 2018-03-23 00:17 | PN ---
DATE: 03/21/2018 This is a late entry for date of service 03/21/2018 and covers elements not covered in my initial note. SUBJECTIVE: I met with the patient in the evening. The patient slept 7 hours previous night, somewhat sedated during the day, tired. REVIEW OF SYSTEMS: Ambulation impaired with walker. No CV, , pulmonary, eye, ENT system symptoms on review. MENTAL STATUS EXAM: Oriented to herself and situation. Speech has moderate latency, often responses monosyllabic. Abstraction fair, computation impaired, language function intact, attention span short. Mood and affect somewhat anxious, labile at times, but better than before. LABORATORY DATA: Reviewed. IMPRESSION: Schizoaffective disorder, bipolar type, mixed with psychotic features, in partial remission; cognitive disorder, unspecified; anxiety disorder, unspecified; impulse control disorder. PLAN: Go ahead and stop the Klonopin 0.5 mg at 9:00 a.m. and 3 days later, we will reduce the remaining 1 mg b.i.d. of the Klonopin down to 0.5 in the morning and 1 in the evening. Continue rest unchanged, may reduce the trazodone at some point, increase the Clozaril following labs CBC, ANC on Saturday. MAN Mary STARKS MD DR: [email or web address]/karli JOB#: [id number] / [id number]
[2018-03-23 06:21] VITALS: BP 123/82
[2018-03-23] MEDS: POTASSIUM CHLORIDE 20 MEQ TABLET.ER. PO SCH ×3 (08:00→17:56)
[2018-03-23] MEDS: metFORMIN 500 MG TABLET PO SCH ×3 (08:00→17:57)
[2018-03-23] MEDS: FUROSEMIDE 80 MG TABLET PO SCH ×3 (08:05→13:55)
[2018-03-23] MEDS: NYSTATIN TOPICAL POWDER 15GM BOTTLE. TP SCH ×2 (08:05→20:13)
[2018-03-23] MEDS: metOLazone 5 MG TABLET PO SCH ×2 (08:06→09:00)
[2018-03-23] MEDS: traZODone 50 MG TABLET. PO SCH ×5 (08:06→17:00)
[2018-03-23] MEDS: DIVALPROEX 125 MG CAP.SPRINK PO SCH ×4 (08:07→17:56)
[2018-03-23] MEDS: MAGNESIUM OXIDE 400 MG TABLET PO SCH ×3 (08:07→17:59)
[2018-03-23] MEDS: LACTOBACILLUS RHAMNOSUS GG 1 CAPSULE. PO SCH ×3 (08:07→17:57)
[2018-03-23] MEDS: PIOGLITAZONE 15 MG TABLET. PO SCH ×2 (08:07→09:00)
[2018-03-23] MEDS: DOXYCYCLINE HYCLATE 100 MG TABLET PO SCH ×3 (08:07→17:56)
[2018-03-23] MEDS: busPIRone 10 MG TABLET. PO SCH ×4 (08:07→17:00)
[2018-03-23] MEDS: INSULIN LISPRO 300 UNITS/3 ML INSULN.PEN. SQ SCH ×3 (08:10→17:00)
[2018-03-23] MEDS: IPRATRPIUM/ALBUTEROL 0.5/2.5MG 3 ML NEBU. NEB SCH (10:45)
[2018-03-23] MEDS: clonazePAM 1 MG TABLET PO SCH ×2 (11:45→17:57)
[2018-03-23 16:55] VITALS: BP 121/69
[2018-03-23] MEDS: traZODone 100 MG TABLET. PO SCH (17:56)
[2018-03-23] MEDS: cloZAPine 100 MG TABLET PO SCH (17:57)
[2018-03-23] MEDS: MIRTAZAPINE 15 MG TABLET PO SCH (17:58)
[2018-03-23] MEDS: MAGNESIUM HYDROXIDE 2,400 MG/30 ML ORAL.SUSP. PO PRN (22:18)
--- NOTE | 2018-03-23 23:16 | PDOC ---
Exam Note: Napoleon Note: Please also refer to the separate dictated note~for this date of service dictated separately.~Patient seen individually. Discussed the patient with Nursing staff reviewed the chart.~Reviewed interim history and current functioning. Reviewed vital signs,~Labs/ Radiology~and current medications noted below. Continue current treatment with the changes noted in the dictated addendum note Assessment: Vital Signs: Vital Signs Date Time Temp Pulse Resp B/P (MAP) Pulse Ox O2 Delivery O2 Flow Rate FiO2 03/23/18 16:55 97.2 62 20 121/69 (86) 91 Room Air 03/19/18 03:55 2.0 I&O Intake and Output 03/23/18 07:00 Intake Total 840 ml Balance 840 ml Intake Oral 840 ml Labs: Laboratory Tests Test 03/23/18 07:27 03/23/18 11:41 03/23/18 17:12 03/23/18 19:34 Glucose (Fingerstick) 279 mg/dL (70-99) H 147 mg/dL (70-99) H 226 mg/dL (70-99) H 249 mg/dL (70-99) H Current Medications: Meds: Current Medications Lorazepam (Ativan) 2 mg 1X ONCE IM ; Start 02/10/18 at 04:00; Stop 02/10/18 at 04:01; Status DC Diphenhydramine HCl (Benadryl) 50 mg 1X ONCE IM ; Start 02/10/18 at 04:00; Stop 02/10/18 at 04:01; Status DC Ziprasidone (Geodon Im) 20 mg 1X ONCE IM ; Start 02/10/18 at 04:00; Stop at 04:01; Status DC Multivitamins/ Minerals 10 ml/ Folic Acid 1 mg/ Thiamine HCl 100 mg/Lactated Ringer's 1,011.1 ml @ 1,000 mls/ hr 1X ONCE IV ; Start 02/10/18 at 03:45; Stop 02/10/18 at 04:45; Status DC Magnesium Hydroxide (Milk Of Magnesia) 2,400 mg 1X ONCE PO ; Start 02/10/18 at 05:30; Stop 02/10/18 at 05:32; Status DC Potassium Chloride (KCl Oral Soln) 40 meq 1X ONCE PO ; Start 02/10/18 at 05:30 ; Stop 02/10/18 at 05:32; Status DC Acetaminophen (Tylenol) 650 mg PRN Q6HRS PRN PO PAIN / TEMP Last administered on 02/23/18at 12:43; Start 02/10/18 at 06:15 Multi-Ingredient Ointment (Analgesic [place]) 1 guanaco PRN QID PRN TP MUSCLE PAIN; Start 02/10/18 at 06:15 Al Hydroxide/Mg Hydroxide (Mylanta Plus Xs) 15 ml PRN AFTMEALHC PRN PO DYSPEPSIA; Start 02/10/18 at 06:15 Magnesium Hydroxide (Milk Of Magnesia) 2,400 mg PRN QHS PRN PO CONSTIPATION Last administered on 03/23/18 22:18; Start 02/10/18 at 06:15 Influenza Virus Vaccine (Afluria Trivalent 0740-9553 Syringe) 0.5 ml ONCE ONCE VAX IM Last administered on 02/10/18 14:21; Start 02/10/18 at 09:00; Stop at 09:01; Status DC Vitamin D (Vitamin D3) 50,000 unit QTH PO Last administered on 03/20/18at 16:46 ; Start 02/13/18 at 16:00 Albuterol/ Ipratropium (Duoneb) 3 ml DAILY NEB Last administered on 03/23/18at 10:45; Start 02/10/18 at 09:00 Lactobacillus Rhamnosus (Culturelle) 1 cap BID PO Last administered on 09:03; Start 02/10/18 at 09:00; Stop 02/22/18 at 18:00; Status DC Potassium Chloride (Klor-Con) 40 meq BIDWMEALS PO Last administered on at 17:56; Start 02/10/18 at 08:00 Amantadine HCl (Symmetrel) 100 mg BID PO Last administered on 02/26/18 08:21; Start 02/10/18 at 09:00; Stop 02/26/18 at 11:24; Status DC Buspirone HCl (Buspar) 10 mg 1300,1700 PO Last administered on 03/23/18at 17:00 ; Start 02/10/18 at 13:00 Buspirone HCl (Buspar) 20 mg DAILY PO Last administered on 03/22/18at 08:29; Start 02/10/18 at 09:00 Clonazepam (KlonoPIN) 1 mg TID PO Last administered on 03/09/18 13:53; Start 02/10/18 at 09:00; Stop 03/09/18 at 18:43; Status DC Diltiazem HCl (Cardizem 24hr Cd) 120 mg DAILY PO Last administered on 08:29; Start 02/10/18 at 09:00 Furosemide (Lasix) 80 mg BID92 PO Last administered on 03/23/18 08:05; Start 02/10/18 at 09:00 Haloperidol (Haldol) 7.5 mg DAILY PO Last administered on 02/19/18 09:05; Start 02/10/18 at 09:00; Stop 02/19/18 at 18:16; Status DC Non-Formulary Medication (Haloperidol Decanoate (Haldol Decanoate 100)) 450 mg Q4WK IM ; Start 02/10/18 at 09:00; Stop 02/10/18 at 16:12; Status DC Non-Formulary Medication (Insulin Aspart (Novolog Flexpen)) see protocol TIDWMEALS SQ ; Start 02/10/18 at 08:00; Status UNV Magnesium Oxide (Magnesium Oxide) 400 mg BID PO Last administered on 17:59; Start 02/10/18 at 09:00 Metformin HCl (Glucophage) 500 mg BIDWMEALS PO Last administered on 03/23/18 17:57; Start 02/10/18 at 08:00 Metolazone (Zaroxolyn) 5 mg DAILY PO Last administered on 03/22/18 08:31; Start 02/10/18 at 09:00 Mirtazapine (Remeron) 15 mg QHS PO Last administered on 03/23/18 17:58; Start 02/10/18 at 21:00 Pioglitazone HCl (Actos) 15 mg DAILY PO Last administered on 03/22/18 08:28; Start 02/10/18 at 09:00 Trazodone HCl (Desyrel) 25 mg TID@0900,1300,1700 PO Last administered on at 17:00; Start 02/10/18 at 09:00 Valproic Acid (Depakene) 750 mg TID PO Last administered on 02/17/18at 21:01; Start 02/10/18 at 09:00; Stop 02/18/18 at 08:06; Status DC Insulin Human Lispro (HumaLOG) 0-9 UNITS TIDWMEALS SQ Last administered on at 17:00; Start 02/10/18 at 08:00 Dextrose 12.5 gm PRN Q15MIN PRN IV SEE COMMENTS; Start 02/10/18 at 06:30 Olanzapine (ZyPREXA ZYDIS) 5 mg PRN Q2HR PRN PO PSYCHOSIS Last administered on 03/02/18at 12:27; Start 02/10/18 at 06:45 Haloperidol Decanoate (Haldol Decanoate Im Extended Release) 450 mg Q4WK IM Last administered on 03/10/18at 08:50; Start 03/10/18 at 09:00 Trazodone HCl (Desyrel) 25 mg STK-MED ONCE .ROUTE ; Start 02/10/18 at 09:00; Stop 02/11/18 at 10:03; Status DC Trazodone HCl (Desyrel) 25 mg STK-MED ONCE .ROUTE ; Start 02/10/18 at 09:00; Stop 02/11/18 at 10:03; Status DC Trazodone HCl (Desyrel) 25 mg STK-MED ONCE .ROUTE ; Start 02/10/18 at 09:00; Stop 02/11/18 at 10:03; Status DC Trazodone HCl (Desyrel) 25 mg STK-MED ONCE .ROUTE ; Start 02/11/18 at 09:00; Stop 02/11/18 at 10:04; Status DC Clozapine (Clozaril) 25 mg HS PO Last administered on 02/16/18at 21:13; Start at 21:00; Stop 02/17/18 at 17:40; Status DC Nystatin (Nystop) 1 guanaco BID TP Last administered on 03/23/18at 20:13; Start at 09:00 Trazodone HCl (Desyrel) 100 mg PRN QHS PRN PO INSOMNIA, MAY REPEAT X1; Start at 17:00; Stop 02/16/18 at 22:42; Status DC Trazodone HCl (Desyrel) 100 mg QHS PO Last administered on 03/23/18at 17:56; Start 02/16/18 at 23:00 Trazodone HCl (Desyrel) 100 mg PRN QHS PRN PO insomnia Last administered on at 19:46; Start 02/16/18 at 22:45 Clozapine (Clozaril) 50 mg HS PO Last administered on 02/23/18at 19:21; Start at 21:00; Stop 02/24/18 at 16:13; Status DC Divalproex Sodium (Depakote Sprinkles) 750 mg TID PO Last administered on 03/23at 17:56; Start 02/18/18 at 09:00 Haloperidol (Haldol) 5 mg DAILY PO Last administered on 03/03/18at 09:32; Start 02/20/18 at 09:00; Stop 03/03/18 at 16:23; Status DC Clozapine (Clozaril) 75 mg HS PO Last administered on 03/02/18at 19:49; Start 02/24/18 at 21:00; Stop 03/03/18 at 16:23; Status DC Clozapine (Clozaril) 100 mg HS PO ; Start 03/03/18 at 16:30; Stop 03/03/18 at 17 :06; Status DC Clozapine (Clozaril) 100 mg HS PO Last administered on 03/10/18at 20:52; Start 03/03/18 at 21:00; Stop 03/10/18 at 22:18; Status DC Sodium Chloride 500 ml @ 0 mls/hr 1X ONCE IV Last administered on 03/08/18at 13:00; Start 03/08/18 at 13:00; Stop 03/08/18 at 13:01; Status DC Sodium Chloride 500 ml @ 125 mls/hr 1X ONCE IV Last administered on at 14:30; Start 03/08/18 at 15:15; Stop 03/08/18 at 19:14; Status DC Clonazepam (KlonoPIN) 1 mg 1200,1700 PO Last administered on 03/21/18at 17:00; Start 03/10/18 at 12:00; Stop 03/21/18 at 18:15; Status DC Clonazepam (KlonoPIN) 0.5 mg DAILY PO Last administered on 03/21/18at 09:29; Start 03/10/18 at 09:00; Stop 03/21/18 at 17:54; Status DC Nystatin (Mycostatin) 5 ml QID SWSW Last administered on 03/18/18at 19:43; Start 03/10/18 at 13:00; Stop 03/19/18 at 16:01; Status DC Clozapine (Clozaril) 125 mg HS PO Last administered on 03/16/18at 20:13; Start 03/11/18 at 21:00; Stop 03/17/18 at 18:02; Status DC Cefpodoxime Proxetil (Vantin) 100 mg BID PO Last administered on 03/19/18at 08: 05; Start 03/17/18 at 21:00; Stop 03/19/18 at 16:01; Status DC Clozapine (Clozaril) 150 mg HS PO Last administered on 03/23/18at 17:57; Start 03/17/18 at 21:00 Doxycycline Hyclate (Vibra-Tab) 100 mg BID PO Last administered on 03/23/18at 17:56; Start 03/19/18 at 09:00; Stop 03/29/18 at 08:59 Doxycycline Hyclate (Vibra-Tab) 100 mg 1X ONCE PO ; Start 03/18/18 at 23:45; Stop 03/18/18 at 23:48; Status DC Lactobacillus Rhamnosus (Culturelle) 1 cap BID PO Last administered on at 17:57; Start 03/19/18 at 21:00 Clonazepam (KlonoPIN) 1 mg 1200 PO Last administered on 03/22/18at 13:55; Start 03/22/18 at 12:00; Stop 03/24/18 at 11:59 Clonazepam (KlonoPIN) 1 mg QHS PO Last administered on 03/23/18at 17:57; Start 03/21/18 at 21:00 Clonazepam (KlonoPIN) 0.5 mg 1200 PO ; Start 03/24/18 at 12:00 Active Scripts Active Reported Duoneb 0.5-3(2.5) Mg/3 Ml (Albuterol/Ipratropium) 3 Ml Ampul.neb 3 Ml NEB DAILY Zyprexa Zydis (Olanzapine) 5 Mg Tab.rapdis 5 Mg PO PRN Q2HR PRN Buspirone Hcl 10 Mg Tablet 10 Mg PO BID@1300,1700 Valproic Acid (Valproate Sodium) 250 Mg/5 Ml Solution 750 Mg PO TID Novolog Flexpen (Insulin Aspart) 100 Unit/1 Ml Insuln.pen 0-9 Unit SQ TIDWMEALS <70 follow hypoglycemic protocol 70-150 0units if eating/ 0 if not eating 151-200 4 units if eating/ 0 units if not eating 201-250 5 units if eating/ 3 units if not eating 251-300 7 units if eating/ 4 units if not eating 301-350 9 units if eating/ 5 units if not eating > 351 Call Physician for futher orders Trazodone Hcl 100 Mg Tablet 200 Mg PO PRN QHS PRN Trazodone Hcl 50 Mg Tablet 25 Mg PO TID@0900,1300,1700 Culturelle (Lactobacillus Rhamnosus Gg) 1 Each Cap.sprink 1 Each PO BID Haloperidol 5 Mg Tablet 7.5 Mg PO DAILY Tylenol (Acetaminophen) 325 Mg Tablet 650 Mg PO PRN Q6HRS PRN Buspirone Hcl 10 Mg Tablet 20 Mg PO DAILY Theophylline Anhydrous 200 Mg Tab.er.12h 200 Mg PO BID Metolazone 5 Mg Tablet 5 Mg PO DAILY Metformin Hcl 500 Mg Tablet 500 Mg PO BIDWMEALS Cardizem Tablet (Diltiazem Hcl) 120 Mg Tablet 120 Mg PO DAILY Amantadine (Amantadine Hcl) 100 Mg Tablet 100 Mg PO BID Actos (Pioglitazone Hcl) 15 Mg Tablet 15 Mg PO DAILY Mirtazapine 15 Mg Tablet 15 Mg PO QHS Haldol Decanoate 100 (Haloperidol Decanoate) 100 Mg/1 Ml Ampul 450 Mg IM Q4WK Klor-Con M20 (Potassium Chloride) 20 Meq Tab.er.prt 40 Meq PO BIDWMEALS Analgesic [place] (Methyl Salicylate/Menthol) 28 Gm Oint...g. 1 Guanaco TP PRN QID PRN Magnesium Oxide 400 Mg Tablet 400 Mg PO BID Milk Of Magnesia (Magnesium Hydroxide) 2,400 Mg/10 Ml Oral.susp 2,400 Mg PO PRN QHS PRN Maalox Advanced Suspension (Mag Hydrox/Aluminum Hyd/Simeth) 355 Ml Oral.susp 15 Ml PO PRN AFTMEALHC PRN D3-50 (Cholecalciferol (Vitamin D3)) 50,000 Unit Capsule 50,000 Unit PO QTH Clonazepam 1 Mg Tablet 1 Mg PO TID Furosemide 40 Mg Tablet 80 Mg PO [id number] Hold for SBP less than 100. After held dose, reassess in 2 hours. If SBP is above threshold, administer dose as ordered. If SBP is below threshold, contact provider for additional instructions. I have reviewed the current psychotropics carefully including drug interactions. Risk benefit ratio favors no change other than as noted in my dictated progress note. Diagnosis: Problems: (1) Depression (2) Schizoaffective disorder (3) Anxiety disorder (4) Impulse control disorder (5) Schizoaffective disorder, chronic condition with acute exacerbation KALIN STARKS MD Mar 23, 2018 23:16
[2018-03-24 06:20] VITALS: BP 99/66
[2018-03-24 07:04] LABS: BASO % 1 % (0-3); EOS # 0.1 x10^3/uL (0.0-0.7); EOS % 1 % (0-3); HEMATOCRIT 40.1 % (36.0-47.0); LYMPH # 1.8 x10^3/uL (1.0-4.8); LYMPH % 28 % (24-48); MEAN CORPUSCULAR HEMOGLOBIN 29 pg (25-35); MEAN CORPUSCULAR HGB CONC 32 g/dL (31-37); MEAN CORPUSCULAR VOLUME 88 fL (79-100); MONO # 0.5 x10^3/uL (0.0-1.1); MONO % 7 % (0-9); NEUT # 4.2 x10^3uL (1.8-7.7); NEUT % 63 % (31-73); PLATELET COUNT 205 x10^3/uL (140-400); RED BLOOD COUNT 4.54 x10^6/uL (3.50-5.40); RED CELL DISTRIBUTION WIDTH 16.3 % (11.5-14.5); WHITE BLOOD COUNT 6.6 x10^3/uL (4.0-11.0)
[2018-03-24 07:16] LABS: ALBUMIN/GLOBULIN RATIO 0.5 (1.0-1.7); CALCIUM 9.4 mg/dL (8.5-10.1); CREATININE 1.4 mg/dL (0.6-1.0); MAGNESIUM 2.8 mg/dL (1.8-2.4); POTASSIUM 3.6 mmol/L (3.5-5.1); TOTAL BILIRUBIN 0.1 mg/dL (0.2-1.0); TOTAL PROTEIN 8.8 g/dL (6.4-8.2)
[2018-03-24] MEDS: busPIRone 10 MG TABLET. PO SCH ×3 (09:48→17:19)
[2018-03-24] MEDS: metFORMIN 500 MG TABLET PO SCH ×2 (09:48→17:18)
[2018-03-24] MEDS: MAGNESIUM OXIDE 400 MG TABLET PO SCH ×2 (09:48→19:42)
[2018-03-24] MEDS: DIVALPROEX 125 MG CAP.SPRINK PO SCH ×3 (09:48→19:42)
[2018-03-24] MEDS: FUROSEMIDE 80 MG TABLET PO SCH ×2 (09:48→15:01)
[2018-03-24] MEDS: PIOGLITAZONE 15 MG TABLET. PO SCH (09:48)
[2018-03-24] MEDS: DOXYCYCLINE HYCLATE 100 MG TABLET PO SCH ×2 (09:48→19:43)
[2018-03-24] MEDS: POTASSIUM CHLORIDE 20 MEQ TABLET.ER. PO SCH ×2 (09:49→17:18)
[2018-03-24] MEDS: LACTOBACILLUS RHAMNOSUS GG 1 CAPSULE. PO SCH ×2 (09:49→19:42)
[2018-03-24] MEDS: traZODone 50 MG TABLET. PO SCH ×3 (09:51→17:18)
[2018-03-24] MEDS: NYSTATIN TOPICAL POWDER 15GM BOTTLE. TP SCH ×2 (09:51→19:44)
[2018-03-24] MEDS: metOLazone 5 MG TABLET PO SCH (09:52)
[2018-03-24] MEDS: INSULIN LISPRO 300 UNITS/3 ML INSULN.PEN. SQ SCH ×3 (09:57→17:17)
[2018-03-24] MEDS: IPRATRPIUM/ALBUTEROL 0.5/2.5MG 3 ML NEBU. NEB SCH (10:55)
[2018-03-24] MEDS: clonazePAM 0.5 MG TABLET PO SCH (12:50)
[2018-03-24 15:44] VITALS: BP 146/73
[2018-03-24] MEDS: cloZAPine 100 MG TABLET PO SCH (19:41)
[2018-03-24] MEDS: traZODone 100 MG TABLET. PO SCH (19:42)
[2018-03-24] MEDS: MIRTAZAPINE 15 MG TABLET PO SCH (19:43)
[2018-03-24] MEDS: clonazePAM 1 MG TABLET PO SCH (19:45)
--- NOTE | 2018-03-24 21:59 | PN ---
DATE: 03/23/2018 PSYCHIATRIC PROGRESS NOTE This late entry 03/23/2018 covers elements not covered in my initial note. SUBJECTIVE: I met with the patient in the evening. The patient slept 6 hours previous evening. Per nursing report, she has been less drowsy, less delusional, even though she is still somewhat psychotic. She is resistive to meds asked for meds to be crushed in strawberry shake, then refused it. She finally took her meds at 2300 crushed in [place]. REVIEW OF SYSTEMS: Ambulation impaired with walker. No CV, , pulmonary, eye, ENT system symptoms on review. MENTAL STATUS EXAM: Oriented to herself and situation. Speech has moderate latency, often responses monosyllabic. Abstraction fair, computation impaired, language function intact. Mood and affect less labile, less sedated. LABORATORY DATA: Reviewed. IMPRESSION: Schizoaffective disorder, bipolar type, mixed with psychotic features, in partial remission; anxiety disorder, unspecified; impulse control disorder, unspecified. Rest unchanged. PLAN: No change from initial note. We will check CBC, absolute neutrophil count 03/24/2018 and then increase the Clozaril. Rest unchanged. MAN Mary STARKS MD DR: TRACIE/karli JOB#: [id number] / [id number]
--- NOTE | 2018-03-24 23:18 | PDOC ---
Exam Note: [place] Note: Please also refer to the separate dictated note~for this date of service dictated separately.~Patient seen individually. Discussed the patient with Nursing staff reviewed the chart.~Reviewed interim history and current functioning. Reviewed vital signs,~Labs/ Radiology~and current medications noted below. Continue current treatment with the changes noted in the dictated addendum note Assessment: Vital Signs: Vital Signs Date Time Temp Pulse Resp B/P (MAP) Pulse Ox O2 Delivery O2 Flow Rate FiO2 03/24/18 15:44 97.1 88 20 146/73 (97) 92 Room Air 03/19/18 03:55 2.0 I&O Intake and Output 03/24/18 07:00 Intake Total 700 ml Balance 700 ml Intake Oral 700 ml Labs: Laboratory Tests Test 03/24/18 06:44 03/24/18 07:45 03/24/18 11:27 03/24/18 16:28 White Blood Count 6.6 x10^3/uL (4.0-11.0) Red Blood Count 4.54 x10^6/uL (3.50-5.40) Hemoglobin 13.0 g/dL (12.0-15.5) Hematocrit 40.1 % (36.0-47.0) Mean Corpuscular Volume 88 fL (79-100) Mean Corpuscular Hemoglobin 29 pg (25-35) Mean Corpuscular Hemoglobin Concent 32 g/dL (31-37) Red Cell Distribution Width 16.3 % (11.5-14.5) H Platelet Count 205 x10^3/uL (140-400) Neutrophils (%) (Auto) 63 % (31-73) Lymphocytes (%) (Auto) 28 % (24-48) Monocytes (%) (Auto) 7 % (0-9) Eosinophils (%) (Auto) 1 % (0-3) Basophils (%) (Auto) 1 % (0-3) Neutrophils # (Auto) 4.2 x10^3uL (1.8-7.7) Lymphocytes # (Auto) 1.8 x10^3/uL (1.0-4.8) Monocytes # (Auto) 0.5 x10^3/uL (0.0-1.1) Eosinophils # (Auto) 0.1 x10^3/uL (0.0-0.7) Basophils # (Auto) 0.0 x10^3/uL (0.0-0.2) Sodium Level 141 mmol/L (136-145) Potassium Level 3.6 mmol/L (3.5-5.1) Chloride Level 96 mmol/L (98-107) L Carbon Dioxide Level 44 mmol/L (21-32) H Anion Gap 1 (6-14) L Blood Urea Nitrogen 44 mg/dL (7-20) H Creatinine 1.4 mg/dL (0.6-1.0) H Estimated GFR (Cockcroft-Gault) 46.0 BUN/Creatinine Ratio 31 (6-20) H Glucose Level 163 mg/dL (70-99) H Calcium Level 9.4 mg/dL (8.5-10.1) Magnesium Level 2.8 mg/dL (1.8-2.4) H Total Bilirubin 0.1 mg/dL (0.2-1.0) L Aspartate Amino Transferase (AST) 17 U/L (15-37) Alanine Aminotransferase (ALT) 19 U/L (14-59) Alkaline Phosphatase 113 U/L (46-116) Total Protein 8.8 g/dL (6.4-8.2) H Albumin 3.0 g/dL (3.4-5.0) L Albumin/Globulin Ratio 0.5 (1.0-1.7) L Glucose (Fingerstick) 163 mg/dL (70-99) H 219 mg/dL (70-99) H 177 mg/dL (70-99) H Test 03/24/18 19:45 Glucose (Fingerstick) 107 mg/dL (70-99) H Current Medications: Meds: Current Medications Lorazepam (Ativan) 2 mg 1X ONCE IM ; Start 02/10/18 at 04:00; Stop 02/10/18 at 04:01; Status DC Diphenhydramine HCl (Benadryl) 50 mg 1X ONCE IM ; Start 02/10/18 at 04:00; Stop 02/10/18 at 04:01; Status DC Ziprasidone (Geodon Im) 20 mg 1X ONCE IM ; Start 02/10/18 at 04:00; Stop at 04:01; Status DC Multivitamins/ Minerals 10 ml/ Folic Acid 1 mg/ Thiamine HCl 100 mg/Lactated Ringer's 1,011.1 ml @ 1,000 mls/ hr 1X ONCE IV ; Start 02/10/18 at 03:45; Stop 02/10/18 at 04:45; Status DC Magnesium Hydroxide (Milk Of Magnesia) 2,400 mg 1X ONCE PO ; Start 02/10/18 at 05:30; Stop 02/10/18 at 05:32; Status DC Potassium Chloride (KCl Oral Soln) 40 meq 1X ONCE PO ; Start 02/10/18 at 05:30 ; Stop 02/10/18 at 05:32; Status DC Acetaminophen (Tylenol) 650 mg PRN Q6HRS PRN PO PAIN / TEMP Last administered on 02/23/18at 12:43; Start 02/10/18 at 06:15 Multi-Ingredient Ointment (Analgesic Olean) 1 guanaco PRN QID PRN TP MUSCLE PAIN; Start 02/10/18 at 06:15 Al Hydroxide/Mg Hydroxide (Mylanta Plus Xs) 15 ml PRN AFTMEALHC PRN PO DYSPEPSIA; Start 02/10/18 at 06:15 Magnesium Hydroxide (Milk Of Magnesia) 2,400 mg PRN QHS PRN PO CONSTIPATION Last administered on 03/23/18at 22:18; Start 02/10/18 at 06:15 Influenza Virus Vaccine (Afluria Trivalent [id number] Syringe) 0.5 ml ONCE ONCE VAX IM Last administered on 02/10/18at 14:21; Start 02/10/18 at 09:00; Stop at 09:01; Status DC Vitamin D (Vitamin D3) 50,000 unit QTH PO Last administered on 03/20/18at 16:46 ; Start 02/13/18 at 16:00 Albuterol/ Ipratropium (Duoneb) 3 ml DAILY NEB Last administered on 03/24/18at 10:55; Start 02/10/18 at 09:00 Lactobacillus Rhamnosus (Culturelle) 1 cap BID PO Last administered on at 09:03; Start 02/10/18 at 09:00; Stop 02/22/18 at 18:00; Status DC Potassium Chloride (Klor-Con) 40 meq BIDWMEALS PO Last administered on at 17:18; Start 02/10/18 at 08:00 Amantadine HCl (Symmetrel) 100 mg BID PO Last administered on 02/26/18 08:21; Start 02/10/18 at 09:00; Stop 02/26/18 at 11:24; Status DC Buspirone HCl (Buspar) 10 mg 1300,1700 PO Last administered on 03/24/18at 17:19 ; Start 02/10/18 at 13:00 Buspirone HCl (Buspar) 20 mg DAILY PO Last administered on 03/24/18at 09:48; Start 02/10/18 at 09:00 Clonazepam (KlonoPIN) 1 mg TID PO Last administered on 03/09/18 13:53; Start 02/10/18 at 09:00; Stop 03/09/18 at 18:43; Status DC Diltiazem HCl (Cardizem 24hr Cd) 120 mg DAILY PO Last administered on at 08:29; Start 02/10/18 at 09:00 Furosemide (Lasix) 80 mg BID92 PO Last administered on 03/24/18at 15:01; Start 02/10/18 at 09:00 Haloperidol (Haldol) 7.5 mg DAILY PO Last administered on 02/19/18at 09:05; Start 02/10/18 at 09:00; Stop 02/19/18 at 18:16; Status DC Non-Formulary Medication (Haloperidol Decanoate (Haldol Decanoate 100)) 450 mg Q4WK IM ; Start 02/10/18 at 09:00; Stop 02/10/18 at 16:12; Status DC Non-Formulary Medication (Insulin Aspart (Novolog Flexpen)) see protocol TIDWMEALS SQ ; Start 02/10/18 at 08:00; Status UNV Magnesium Oxide (Magnesium Oxide) 400 mg BID PO Last administered on at 19:42; Start 02/10/18 at 09:00 Metformin HCl (Glucophage) 500 mg BIDWMEALS PO Last administered on 03/24/18at 17:18; Start 02/10/18 at 08:00 Metolazone (Zaroxolyn) 5 mg DAILY PO Last administered on 03/24/18at 09:52; Start 02/10/18 at 09:00 Mirtazapine (Remeron) 15 mg QHS PO Last administered on 03/24/18at 19:43; Start 02/10/18 at 21:00 Pioglitazone HCl (Actos) 15 mg DAILY PO Last administered on 03/24/18at 09:48; Start 02/10/18 at 09:00 Trazodone HCl (Desyrel) 25 mg TID@0900,1300,1700 PO Last administered on at 17:18; Start 02/10/18 at 09:00 Valproic Acid (Depakene) 750 mg TID PO Last administered on 02/17/18at 21:01; Start 02/10/18 at 09:00; Stop 02/18/18 at 08:06; Status DC Insulin Human Lispro (HumaLOG) 0-9 UNITS TIDWMEALS SQ Last administered on 17:17; Start 02/10/18 at 08:00 Dextrose 12.5 gm PRN Q15MIN PRN IV SEE COMMENTS; Start 02/10/18 at 06:30 Olanzapine (ZyPREXA ZYDIS) 5 mg PRN Q2HR PRN PO PSYCHOSIS Last administered on 03/02/18at 12:27; Start 02/10/18 at 06:45 Haloperidol Decanoate (Haldol Decanoate Im Extended Release) 450 mg Q4WK IM Last administered on 03/10/18at 08:50; Start 03/10/18 at 09:00 Trazodone HCl (Desyrel) 25 mg STK-MED ONCE .ROUTE ; Start 02/10/18 at 09:00; Stop 02/11/18 at 10:03; Status DC Trazodone HCl (Desyrel) 25 mg STK-MED ONCE .ROUTE ; Start 02/10/18 at 09:00; Stop 02/11/18 at 10:03; Status DC Trazodone HCl (Desyrel) 25 mg STK-MED ONCE .ROUTE ; Start 02/10/18 at 09:00; Stop 02/11/18 at 10:03; Status DC Trazodone HCl (Desyrel) 25 mg STK-MED ONCE .ROUTE ; Start 02/11/18 at 09:00; Stop 02/11/18 at 10:04; Status DC Clozapine (Clozaril) 25 mg HS PO Last administered on 02/16/18 21:13; Start at 21:00; Stop 02/17/18 at 17:40; Status DC Nystatin (Nystop) 1 guanaco BID TP Last administered on 03/24/18 19:44; Start at 09:00 Trazodone HCl (Desyrel) 100 mg PRN QHS PRN PO INSOMNIA, MAY REPEAT X1; Start at 17:00; Stop 02/16/18 at 22:42; Status DC Trazodone HCl (Desyrel) 100 mg QHS PO Last administered on 03/24/18 19:42; Start 02/16/18 at 23:00 Trazodone HCl (Desyrel) 100 mg PRN QHS PRN PO insomnia Last administered on 19:46; Start 02/16/18 at 22:45 Clozapine (Clozaril) 50 mg HS PO Last administered on 02/23/18 19:21; Start at 21:00; Stop 02/24/18 at 16:13; Status DC Divalproex Sodium (Depakote Sprinkles) 750 mg TID PO Last administered on 03/24 19:42; Start 02/18/18 at 09:00 Haloperidol (Haldol) 5 mg DAILY PO Last administered on 03/03/18at 09:32; Start 02/20/18 at 09:00; Stop 03/03/18 at 16:23; Status DC Clozapine (Clozaril) 75 mg HS PO Last administered on 03/02/18at 19:49; Start 02/24/18 at 21:00; Stop 03/03/18 at 16:23; Status DC Clozapine (Clozaril) 100 mg HS PO ; Start 03/03/18 at 16:30; Stop 03/03/18 at 17 :06; Status DC Clozapine (Clozaril) 100 mg HS PO Last administered on 03/10/18at 20:52; Start 03/03/18 at 21:00; Stop 03/10/18 at 22:18; Status DC Sodium Chloride 500 ml @ 0 mls/hr 1X ONCE IV Last administered on 03/08/18at 13:00; Start 03/08/18 at 13:00; Stop 03/08/18 at 13:01; Status DC Sodium Chloride 500 ml @ 125 mls/hr 1X ONCE IV Last administered on at 14:30; Start 03/08/18 at 15:15; Stop 03/08/18 at 19:14; Status DC Clonazepam (KlonoPIN) 1 mg 1200,1700 PO Last administered on 03/21/18at 17:00; Start 03/10/18 at 12:00; Stop 03/21/18 at 18:15; Status DC Clonazepam (KlonoPIN) 0.5 mg DAILY PO Last administered on 03/21/18at 09:29; Start 03/10/18 at 09:00; Stop 03/21/18 at 17:54; Status DC Nystatin (Mycostatin) 5 ml QID SWSW Last administered on 03/18/18at 19:43; Start 03/10/18 at 13:00; Stop 03/19/18 at 16:01; Status DC Clozapine (Clozaril) 125 mg HS PO Last administered on 03/16/18at 20:13; Start 03/11/18 at 21:00; Stop 03/17/18 at 18:02; Status DC Cefpodoxime Proxetil (Vantin) 100 mg BID PO Last administered on 03/19/18at 08: 05; Start 03/17/18 at 21:00; Stop 03/19/18 at 16:01; Status DC Clozapine (Clozaril) 150 mg HS PO Last administered on 03/23/18at 17:57; Start 03/17/18 at 21:00; Stop 03/24/18 at 16:30; Status DC Doxycycline Hyclate (Vibra-Tab) 100 mg BID PO Last administered on 03/24/18at 19:43; Start 03/19/18 at 09:00; Stop 03/29/18 at 08:59 Doxycycline Hyclate (Vibra-Tab) 100 mg 1X ONCE PO ; Start 03/18/18 at 23:45; Stop 03/18/18 at 23:48; Status DC Lactobacillus Rhamnosus (Culturelle) 1 cap BID PO Last administered on at 19:42; Start 03/19/18 at 21:00 Clonazepam (KlonoPIN) 1 mg 1200 PO Last administered on 03/22/18at 13:55; Start 03/22/18 at 12:00; Stop 03/24/18 at 11:59; Status DC Clonazepam (KlonoPIN) 1 mg QHS PO Last administered on 03/24/18at 19:45; Start 03/21/18 at 21:00 Clonazepam (KlonoPIN) 0.5 mg 1200 PO Last administered on 03/24/18at 12:50; Start 03/24/18 at 12:00 Clozapine (Clozaril) 175 mg HS PO Last administered on 03/24/18at 19:41; Start 03/24/18 at 21:00 Active Scripts Active Reported Duoneb 0.5-3(2.5) Mg/3 Ml (Albuterol/Ipratropium) 3 Ml Ampul.neb 3 Ml NEB DAILY Zyprexa Zydis (Olanzapine) 5 Mg Tab.rapdis 5 Mg PO PRN Q2HR PRN Buspirone Hcl 10 Mg Tablet 10 Mg PO BID@1300,1700 Valproic Acid (Valproate Sodium) 250 Mg/5 Ml Solution 750 Mg PO TID Novolog Flexpen (Insulin Aspart) 100 Unit/1 Ml Insuln.pen 0-9 Unit SQ TIDWMEALS <70 follow hypoglycemic protocol 70-150 0units if eating/ 0 if not eating 151-200 4 units if eating/ 0 units if not eating 201-250 5 units if eating/ 3 units if not eating 251-300 7 units if eating/ 4 units if not eating 301-350 9 units if eating/ 5 units if not eating > 351 Call Physician for futher orders Trazodone Hcl 100 Mg Tablet 200 Mg PO PRN QHS PRN Trazodone Hcl 50 Mg Tablet 25 Mg PO TID@0900,1300,1700 Culturelle (Lactobacillus Rhamnosus Gg) 1 Each Cap.sprink 1 Each PO BID Haloperidol 5 Mg Tablet 7.5 Mg PO DAILY Tylenol (Acetaminophen) 325 Mg Tablet 650 Mg PO PRN Q6HRS PRN Buspirone Hcl 10 Mg Tablet 20 Mg PO DAILY Theophylline Anhydrous 200 Mg Tab.er.12h 200 Mg PO BID Metolazone 5 Mg Tablet 5 Mg PO DAILY Metformin Hcl 500 Mg Tablet 500 Mg PO BIDWMEALS Cardizem Tablet (Diltiazem Hcl) 120 Mg Tablet 120 Mg PO DAILY Amantadine (Amantadine Hcl) 100 Mg Tablet 100 Mg PO BID Actos (Pioglitazone Hcl) 15 Mg Tablet 15 Mg PO DAILY Mirtazapine 15 Mg Tablet 15 Mg PO QHS Haldol Decanoate 100 (Haloperidol Decanoate) 100 Mg/1 Ml Ampul 450 Mg IM Q4WK Klor-Con M20 (Potassium Chloride) 20 Meq Tab.er.prt 40 Meq PO BIDWMEALS Analgesic Olean (Methyl Salicylate/Menthol) 28 Gm Oint...g. 1 Guanaco TP PRN QID PRN Magnesium Oxide 400 Mg Tablet 400 Mg PO BID Milk Of Magnesia (Magnesium Hydroxide) 2,400 Mg/10 Ml Oral.susp 2,400 Mg PO PRN QHS PRN Maalox Advanced Suspension (Mag Hydrox/Aluminum Hyd/Simeth) 355 Ml Oral.susp 15 Ml PO PRN AFTMEALHC PRN D3-50 (Cholecalciferol (Vitamin D3)) 50,000 Unit Capsule 50,000 Unit PO QTH Clonazepam 1 Mg Tablet 1 Mg PO TID Furosemide 40 Mg Tablet 80 Mg PO [id number] Hold for SBP less than 100. After held dose, reassess in 2 hours. If SBP is above threshold, administer dose as ordered. If SBP is below threshold, contact provider for additional instructions. I have reviewed the current psychotropics carefully including drug interactions. Risk benefit ratio favors no change other than as noted in my dictated progress note. Diagnosis: Problems: (1) Depression (2) Schizoaffective disorder (3) Anxiety disorder (4) Impulse control disorder (5) Schizoaffective disorder, chronic condition with acute exacerbation KALIN STARKS MD Mar 24, 2018 23:18
[2018-03-25 06:39] VITALS: BP 98/66
[2018-03-25] MEDS: metFORMIN 500 MG TABLET PO SCH ×3 (08:55→17:35)
[2018-03-25] MEDS: POTASSIUM CHLORIDE 20 MEQ TABLET.ER. PO SCH ×3 (08:56→17:35)
[2018-03-25] MEDS: PIOGLITAZONE 15 MG TABLET. PO SCH (08:58)
[2018-03-25] MEDS: INSULIN LISPRO 300 UNITS/3 ML INSULN.PEN. SQ SCH ×3 (08:58→17:00)
[2018-03-25] MEDS: busPIRone 10 MG TABLET. PO SCH ×5 (08:59→17:33)
[2018-03-25] MEDS: LACTOBACILLUS RHAMNOSUS GG 1 CAPSULE. PO SCH ×2 (09:00→19:40)
[2018-03-25] MEDS: DIVALPROEX 125 MG CAP.SPRINK PO SCH ×4 (09:01→19:40)
[2018-03-25] MEDS: traZODone 50 MG TABLET. PO SCH ×5 (09:05→17:34)
[2018-03-25] MEDS: FUROSEMIDE 80 MG TABLET PO SCH ×3 (09:06→13:15)
[2018-03-25] MEDS: MAGNESIUM OXIDE 400 MG TABLET PO SCH ×2 (09:06→19:42)
[2018-03-25] MEDS: DOXYCYCLINE HYCLATE 100 MG TABLET PO SCH ×2 (09:07→19:42)
[2018-03-25] MEDS: metOLazone 5 MG TABLET PO SCH (09:07)
[2018-03-25] MEDS: NYSTATIN TOPICAL POWDER 15GM BOTTLE. TP SCH ×2 (09:08→19:42)
[2018-03-25] MEDS: IPRATRPIUM/ALBUTEROL 0.5/2.5MG 3 ML NEBU. NEB SCH (10:23)
[2018-03-25] MEDS: clonazePAM 0.5 MG TABLET PO SCH ×2 (12:00→13:01)
[2018-03-25 16:10] VITALS: BP 137/75
[2018-03-25] MEDS: cloZAPine 100 MG TABLET PO SCH (19:39)
[2018-03-25] MEDS: traZODone 100 MG TABLET. PO SCH (19:42)
[2018-03-25] MEDS: MIRTAZAPINE 15 MG TABLET PO SCH (19:42)
[2018-03-25] MEDS: clonazePAM 1 MG TABLET PO SCH (19:44)
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
--- NOTE | 2018-03-25 23:16 | PDOC ---
Exam Note: [place] Note: Please also refer to the separate dictated note~for this date of service dictated separately.~Patient seen individually. Discussed the patient with Nursing staff reviewed the chart.~Reviewed interim history and current functioning. Reviewed vital signs,~Labs/ Radiology~and current medications noted below. Continue current treatment with the changes noted in the dictated addendum note Assessment: Vital Signs: Vital Signs Date Time Temp Pulse Resp B/P (MAP) Pulse Ox O2 Delivery O2 Flow Rate FiO2 03/25/18 16:10 97.6 81 16 137/75 (95) 94 Room Air I&O Intake and Output 03/25/18 07:00 Intake Total 840 ml Balance 840 ml Intake Oral 840 ml Labs: Laboratory Tests Test 03/25/18 07:49 03/25/18 12:17 03/25/18 17:01 03/25/18 19:16 Glucose (Fingerstick) 159 mg/dL (70-99) H 167 mg/dL (70-99) H 142 mg/dL (70-99) H 215 mg/dL (70-99) H Current Medications: Meds: Current Medications Lorazepam (Ativan) 2 mg 1X ONCE IM ; Start 02/10/18 at 04:00; Stop 02/10/18 at 04:01; Status DC Diphenhydramine HCl (Benadryl) 50 mg 1X ONCE IM ; Start 02/10/18 at 04:00; Stop 02/10/18 at 04:01; Status DC Ziprasidone (Geodon Im) 20 mg 1X ONCE IM ; Start 02/10/18 at 04:00; Stop at 04:01; Status DC Multivitamins/ Minerals 10 ml/ Folic Acid 1 mg/ Thiamine HCl 100 mg/Lactated Ringer's 1,011.1 ml @ 1,000 mls/ hr 1X ONCE IV ; Start 02/10/18 at 03:45; Stop 02/10/18 at 04:45; Status DC Magnesium Hydroxide (Milk Of Magnesia) 2,400 mg 1X ONCE PO ; Start 02/10/18 at 05:30; Stop 02/10/18 at 05:32; Status DC Potassium Chloride (KCl Oral Soln) 40 meq 1X ONCE PO ; Start 02/10/18 at 05:30 ; Stop 02/10/18 at 05:32; Status DC Acetaminophen (Tylenol) 650 mg PRN Q6HRS PRN PO PAIN / TEMP Last administered on 02/23/18 12:43; Start 02/10/18 at 06:15 Multi-Ingredient Ointment (Analgesic [place]) 1 guanaco PRN QID PRN TP MUSCLE PAIN; Start 02/10/18 at 06:15 Al Hydroxide/Mg Hydroxide (Mylanta Plus Xs) 15 ml PRN AFTMEALHC PRN PO DYSPEPSIA; Start 02/10/18 at 06:15 Magnesium Hydroxide (Milk Of Magnesia) 2,400 mg PRN QHS PRN PO CONSTIPATION Last administered on 03/23/18 22:18; Start 02/10/18 at 06:15 Influenza Virus Vaccine (Afluria Trivalent 4501-7316 Syringe) 0.5 ml ONCE ONCE VAX IM Last administered on 02/10/18 14:21; Start 02/10/18 at 09:00; Stop at 09:01; Status DC Vitamin D (Vitamin D3) 50,000 unit QTH PO Last administered on 03/20/18at 16:46 ; Start 02/13/18 at 16:00 Albuterol/ Ipratropium (Duoneb) 3 ml DAILY NEB Last administered on 03/25/18 10:23; Start 02/10/18 at 09:00 Lactobacillus Rhamnosus (Culturelle) 1 cap BID PO Last administered on 09:03; Start 02/10/18 at 09:00; Stop 02/22/18 at 18:00; Status DC Potassium Chloride (Klor-Con) 40 meq BIDWMEALS PO Last administered on 08:56; Start 02/10/18 at 08:00 Amantadine HCl (Symmetrel) 100 mg BID PO Last administered on 02/26/18 08:21; Start 02/10/18 at 09:00; Stop 02/26/18 at 11:24; Status DC Buspirone HCl (Buspar) 10 mg 1300,1700 PO Last administered on 03/24/18 17:19 ; Start 02/10/18 at 13:00 Buspirone HCl (Buspar) 20 mg DAILY PO Last administered on 03/25/18at 08:59; Start 02/10/18 at 09:00 Clonazepam (KlonoPIN) 1 mg TID PO Last administered on 03/09/18at 13:53; Start 02/10/18 at 09:00; Stop 03/09/18 at 18:43; Status DC Diltiazem HCl (Cardizem 24hr Cd) 120 mg DAILY PO Last administered on 08:29; Start 02/10/18 at 09:00 Furosemide (Lasix) 80 mg BID92 PO Last administered on 03/25/18 09:06; Start 02/10/18 at 09:00 Haloperidol (Haldol) 7.5 mg DAILY PO Last administered on 02/19/18 09:05; Start 02/10/18 at 09:00; Stop 02/19/18 at 18:16; Status DC Non-Formulary Medication (Haloperidol Decanoate (Haldol Decanoate 100)) 450 mg Q4WK IM ; Start 02/10/18 at 09:00; Stop 02/10/18 at 16:12; Status DC Non-Formulary Medication (Insulin Aspart (Novolog Flexpen)) see protocol TIDWMEALS SQ ; Start 02/10/18 at 08:00; Status UNV Magnesium Oxide (Magnesium Oxide) 400 mg BID PO Last administered on 19:42; Start 02/10/18 at 09:00 Metformin HCl (Glucophage) 500 mg BIDWMEALS PO Last administered on 03/25/18 08:55; Start 02/10/18 at 08:00 Metolazone (Zaroxolyn) 5 mg DAILY PO Last administered on 03/25/18 09:07; Start 02/10/18 at 09:00 Mirtazapine (Remeron) 15 mg QHS PO Last administered on 03/25/18 19:42; Start 02/10/18 at 21:00 Pioglitazone HCl (Actos) 15 mg DAILY PO Last administered on 03/25/18 08:58; Start 02/10/18 at 09:00 Trazodone HCl (Desyrel) 25 mg TID@0900,1300,1700 PO Last administered on 09:05; Start 02/10/18 at 09:00 Valproic Acid (Depakene) 750 mg TID PO Last administered on 02/17/18at 21:01; Start 02/10/18 at 09:00; Stop 02/18/18 at 08:06; Status DC Insulin Human Lispro (HumaLOG) 0-9 UNITS TIDWMEALS SQ Last administered on at 13:02; Start 02/10/18 at 08:00 Dextrose 12.5 gm PRN Q15MIN PRN IV SEE COMMENTS; Start 02/10/18 at 06:30 Olanzapine (ZyPREXA ZYDIS) 5 mg PRN Q2HR PRN PO PSYCHOSIS Last administered on 03/02/18at 12:27; Start 02/10/18 at 06:45 Haloperidol Decanoate (Haldol Decanoate Im Extended Release) 450 mg Q4WK IM Last administered on 03/10/18at 08:50; Start 03/10/18 at 09:00 Trazodone HCl (Desyrel) 25 mg STK-MED ONCE .ROUTE ; Start 02/10/18 at 09:00; Stop 02/11/18 at 10:03; Status DC Trazodone HCl (Desyrel) 25 mg STK-MED ONCE .ROUTE ; Start 02/10/18 at 09:00; Stop 02/11/18 at 10:03; Status DC Trazodone HCl (Desyrel) 25 mg STK-MED ONCE .ROUTE ; Start 02/10/18 at 09:00; Stop 02/11/18 at 10:03; Status DC Trazodone HCl (Desyrel) 25 mg STK-MED ONCE .ROUTE ; Start 02/11/18 at 09:00; Stop 02/11/18 at 10:04; Status DC Clozapine (Clozaril) 25 mg HS PO Last administered on 02/16/18at 21:13; Start at 21:00; Stop 02/17/18 at 17:40; Status DC Nystatin (Nystop) 1 guanaco BID TP Last administered on 03/25/18at 19:42; Start at 09:00 Trazodone HCl (Desyrel) 100 mg PRN QHS PRN PO INSOMNIA, MAY REPEAT X1; Start at 17:00; Stop 02/16/18 at 22:42; Status DC Trazodone HCl (Desyrel) 100 mg QHS PO Last administered on 03/25/18 19:42; Start 02/16/18 at 23:00 Trazodone HCl (Desyrel) 100 mg PRN QHS PRN PO insomnia Last administered on at 19:46; Start 02/16/18 at 22:45 Clozapine (Clozaril) 50 mg HS PO Last administered on 02/23/18 19:21; Start at 21:00; Stop 02/24/18 at 16:13; Status DC Divalproex Sodium (Depakote Sprinkles) 750 mg TID PO Last administered on 03/25 19:40; Start 02/18/18 at 09:00 Haloperidol (Haldol) 5 mg DAILY PO Last administered on 03/03/18at 09:32; Start 02/20/18 at 09:00; Stop 03/03/18 at 16:23; Status DC Clozapine (Clozaril) 75 mg HS PO Last administered on 03/02/18at 19:49; Start 02/24/18 at 21:00; Stop 03/03/18 at 16:23; Status DC Clozapine (Clozaril) 100 mg HS PO ; Start 03/03/18 at 16:30; Stop 03/03/18 at 17 :06; Status DC Clozapine (Clozaril) 100 mg HS PO Last administered on 03/10/18at 20:52; Start 03/03/18 at 21:00; Stop 03/10/18 at 22:18; Status DC Sodium Chloride 500 ml @ 0 mls/hr 1X ONCE IV Last administered on 03/08/18at 13:00; Start 03/08/18 at 13:00; Stop 03/08/18 at 13:01; Status DC Sodium Chloride 500 ml @ 125 mls/hr 1X ONCE IV Last administered on at 14:30; Start 03/08/18 at 15:15; Stop 03/08/18 at 19:14; Status DC Clonazepam (KlonoPIN) 1 mg 1200,1700 PO Last administered on 03/21/18at 17:00; Start 03/10/18 at 12:00; Stop 03/21/18 at 18:15; Status DC Clonazepam (KlonoPIN) 0.5 mg DAILY PO Last administered on 03/21/18at 09:29; Start 03/10/18 at 09:00; Stop 03/21/18 at 17:54; Status DC Nystatin (Mycostatin) 5 ml QID SWSW Last administered on 03/18/18at 19:43; Start 03/10/18 at 13:00; Stop 03/19/18 at 16:01; Status DC Clozapine (Clozaril) 125 mg HS PO Last administered on 03/16/18at 20:13; Start 03/11/18 at 21:00; Stop 03/17/18 at 18:02; Status DC Cefpodoxime Proxetil (Vantin) 100 mg BID PO Last administered on 03/19/18at 08: 05; Start 03/17/18 at 21:00; Stop 03/19/18 at 16:01; Status DC Clozapine (Clozaril) 150 mg HS PO Last administered on 03/23/18at 17:57; Start 03/17/18 at 21:00; Stop 03/24/18 at 16:30; Status DC Doxycycline Hyclate (Vibra-Tab) 100 mg BID PO Last administered on 03/25/18at 19:42; Start 03/19/18 at 09:00; Stop 03/29/18 at 08:59 Doxycycline Hyclate (Vibra-Tab) 100 mg 1X ONCE PO ; Start 03/18/18 at 23:45; Stop 03/18/18 at 23:48; Status DC Lactobacillus Rhamnosus (Culturelle) 1 cap BID PO Last administered on at 19:40; Start 03/19/18 at 21:00 Clonazepam (KlonoPIN) 1 mg 1200 PO Last administered on 03/22/18at 13:55; Start 03/22/18 at 12:00; Stop 03/24/18 at 11:59; Status DC Clonazepam (KlonoPIN) 1 mg QHS PO Last administered on 03/25/18at 19:44; Start 03/21/18 at 21:00 Clonazepam (KlonoPIN) 0.5 mg 1200 PO Last administered on 03/24/18at 12:50; Start 03/24/18 at 12:00 Clozapine (Clozaril) 175 mg HS PO Last administered on 10/30/18at 19:39; Start 03/24/18 at 21:00 Active Scripts Active Reported Duoneb 0.5-3(2.5) Mg/3 Ml (Albuterol/Ipratropium) 3 Ml Ampul.neb 3 Ml NEB DAILY Zyprexa Zydis (Olanzapine) 5 Mg Tab.rapdis 5 Mg PO PRN Q2HR PRN Buspirone Hcl 10 Mg Tablet 10 Mg PO BID@1300,1700 Valproic Acid (Valproate Sodium) 250 Mg/5 Ml Solution 750 Mg PO TID Novolog Flexpen (Insulin Aspart) 100 Unit/1 Ml Insuln.pen 0-9 Unit SQ TIDWMEALS <70 follow hypoglycemic protocol 70-150 0units if eating/ 0 if not eating 151-200 4 units if eating/ 0 units if not eating 201-250 5 units if eating/ 3 units if not eating 251-300 7 units if eating/ 4 units if not eating 301-350 9 units if eating/ 5 units if not eating > 351 Call Physician for futher orders Trazodone Hcl 100 Mg Tablet 200 Mg PO PRN QHS PRN Trazodone Hcl 50 Mg Tablet 25 Mg PO TID@0900,1300,1700 Culturelle (Lactobacillus Rhamnosus Gg) 1 Each Cap.sprink 1 Each PO BID Haloperidol 5 Mg Tablet 7.5 Mg PO DAILY Tylenol (Acetaminophen) 325 Mg Tablet 650 Mg PO PRN Q6HRS PRN Buspirone Hcl 10 Mg Tablet 20 Mg PO DAILY Theophylline Anhydrous 200 Mg Tab.er.12h 200 Mg PO BID Metolazone 5 Mg Tablet 5 Mg PO DAILY Metformin Hcl 500 Mg Tablet 500 Mg PO BIDWMEALS Cardizem Tablet (Diltiazem Hcl) 120 Mg Tablet 120 Mg PO DAILY Amantadine (Amantadine Hcl) 100 Mg Tablet 100 Mg PO BID Actos (Pioglitazone Hcl) 15 Mg Tablet 15 Mg PO DAILY Mirtazapine 15 Mg Tablet 15 Mg PO QHS Haldol Decanoate 100 (Haloperidol Decanoate) 100 Mg/1 Ml Ampul 450 Mg IM Q4WK Klor-Con M20 (Potassium Chloride) 20 Meq Tab.er.prt 40 Meq PO BIDWMEALS Analgesic [place] (Methyl Salicylate/Menthol) 28 Gm Oint...g. 1 Guanaco TP PRN QID PRN Magnesium Oxide 400 Mg Tablet 400 Mg PO BID Milk Of Magnesia (Magnesium Hydroxide) 2,400 Mg/10 Ml Oral.susp 2,400 Mg PO PRN QHS PRN Maalox Advanced Suspension (Mag Hydrox/Aluminum Hyd/Simeth) 355 Ml Oral.susp 15 Ml PO PRN AFTMEALHC PRN D3-50 (Cholecalciferol (Vitamin D3)) 50,000 Unit Capsule 50,000 Unit PO QTH Clonazepam 1 Mg Tablet 1 Mg PO TID Furosemide 40 Mg Tablet 80 Mg PO [id number] Hold for SBP less than 100. After held dose, reassess in 2 hours. If SBP is above threshold, administer dose as ordered. If SBP is below threshold, contact provider for additional instructions. I have reviewed the current psychotropics carefully including drug interactions. Risk benefit ratio favors no change other than as noted in my dictated progress note. Diagnosis: Problems: (1) Depression (2) Schizoaffective disorder (3) Anxiety disorder (4) Impulse control disorder (5) Schizoaffective disorder, chronic condition with acute exacerbation KALIN STARKS MD Mar 25, 2018 23:16
[2018-03-26 05:54] VITALS: BP 119/77
[2018-03-26] MEDS: traZODone 50 MG TABLET. PO SCH ×3 (08:53→17:52)
[2018-03-26] MEDS: DIVALPROEX 125 MG CAP.SPRINK PO SCH ×3 (08:55→19:44)
[2018-03-26] MEDS: MAGNESIUM OXIDE 400 MG TABLET PO SCH ×2 (08:55→19:45)
[2018-03-26] MEDS: FUROSEMIDE 80 MG TABLET PO SCH ×2 (08:55→12:43)
[2018-03-26] MEDS: LACTOBACILLUS RHAMNOSUS GG 1 CAPSULE. PO SCH ×2 (08:55→19:44)
[2018-03-26] MEDS: busPIRone 10 MG TABLET. PO SCH ×3 (08:55→17:52)
[2018-03-26] MEDS: PIOGLITAZONE 15 MG TABLET. PO SCH (08:55)
[2018-03-26] MEDS: DOXYCYCLINE HYCLATE 100 MG TABLET PO SCH ×2 (08:55→19:44)
[2018-03-26] MEDS: metFORMIN 500 MG TABLET PO SCH ×2 (08:55→17:52)
[2018-03-26] MEDS: NYSTATIN TOPICAL POWDER 15GM BOTTLE. TP SCH ×2 (08:56→19:45)
[2018-03-26] MEDS: POTASSIUM CHLORIDE 20 MEQ TABLET.ER. PO SCH ×2 (08:56→17:52)
[2018-03-26] MEDS: INSULIN LISPRO 300 UNITS/3 ML INSULN.PEN. SQ SCH ×3 (08:59→17:51)
[2018-03-26] MEDS: metOLazone 5 MG TABLET PO SCH (09:01)
[2018-03-26] MEDS ORDERED: POTASSIUM CHLORIDE 20 MEQ TABLET.ER. PO ONE (09:33)
[2018-03-26] MEDS: IPRATRPIUM/ALBUTEROL 0.5/2.5MG 3 ML NEBU. NEB SCH (09:47)
[2018-03-26] MEDS: clonazePAM 0.5 MG TABLET PO SCH (12:41)
[2018-03-26 16:43] VITALS: BP 107/62
[2018-03-26] MEDS: traZODone 100 MG TABLET. PO SCH (19:44)
[2018-03-26] MEDS: MIRTAZAPINE 15 MG TABLET PO SCH (19:45)
[2018-03-26] MEDS: cloZAPine 100 MG TABLET PO SCH (19:47)
[2018-03-26] MEDS: clonazePAM 1 MG TABLET PO SCH (19:47)
--- NOTE | 2018-03-26 22:52 | PN ---
DATE: 03/25/2018 PSYCHIATRIC PROGRESS NOTE This late entry 03/25/2018 covers elements not covered in my initial note. SUBJECTIVE: I met with the patient in the evening. The patient slept 6-3/4 hours previous evening. pomologist, she told nursing staff "I will be good today." She in fact did well in the morning, but late afternoon, she was agitated, refusing her medications, spit them out. Despite this, yelling is better. In the morning, she took her medications whole including the insulin. REVIEW OF SYSTEMS: Ambulation impaired with walker. No CV, , pulmonary, eye, ENT system symptoms on review. Reliability varies. MENTAL STATUS EXAM: Oriented to herself and situation. Speech has some latency, coherent at times. Verbal responses monosyllabic. Abstraction fair, computation impaired, language function intact, attention span short. Mood lability is much improved. Psychotic symptoms are better. She is tolerating the increased Clozaril. LABORATORY DATA: Reviewed. IMPRESSION: Schizoaffective disorder, bipolar type, mixed with psychotic features, in partial remission; anxiety disorder, unspecified; impulse control disorder, unspecified. PLAN: Continue psychotropics from initial note. Clozaril has been increased to 175 mg p.o. at bedtime. CBC, absolute neutrophil count unremarkable. Valproic acid level therapeutic at 65. She has not been overly sedated, but as the Clozaril gets therapeutic, we will then gradually reduce the scheduled trazodone during the day and Klonopin. The oral Haldol has since been discontinued, she remains on Decanoate 450 mg IM every 28 days. MAN Mary STARKS MD DR: [email or web address]/karli JOB#: [id number] / [id number]
--- NOTE | 2018-03-26 23:30 | PDOC ---
Exam Note: Napoleon Note: Please also refer to the separate dictated note~for this date of service dictated separately.~Patient seen individually. Discussed the patient with Nursing staff reviewed the chart.~Reviewed interim history and current functioning. Reviewed vital signs,~Labs/ Radiology~and current medications noted below. Continue current treatment with the changes noted in the dictated addendum note Assessment: Vital Signs: Vital Signs Date Time Temp Pulse Resp B/P (MAP) Pulse Ox O2 Delivery O2 Flow Rate FiO2 03/26/18 16:43 96.1 73 19 107/62 (77) 90 03/26/18 09:49 Room Air I&O Intake and Output 03/26/18 07:00 Intake Total 1080 ml Balance 1080 ml Intake Oral 1080 ml Labs: Laboratory Tests Test 03/26/18 07:21 03/26/18 11:20 03/26/18 16:47 03/26/18 19:37 Glucose (Fingerstick) 151 mg/dL (70-99) H 161 mg/dL (70-99) H 196 mg/dL (70-99) H 187 mg/dL (70-99) H Current Medications: Meds: Current Medications Lorazepam (Ativan) 2 mg 1X ONCE IM ; Start 02/10/18 at 04:00; Stop 02/10/18 at 04:01; Status DC Diphenhydramine HCl (Benadryl) 50 mg 1X ONCE IM ; Start 02/10/18 at 04:00; Stop 02/10/18 at 04:01; Status DC Ziprasidone (Geodon Im) 20 mg 1X ONCE IM ; Start 02/10/18 at 04:00; Stop at 04:01; Status DC Multivitamins/ Minerals 10 ml/ Folic Acid 1 mg/ Thiamine HCl 100 mg/Lactated Ringer's 1,011.1 ml @ 1,000 mls/ hr 1X ONCE IV ; Start 02/10/18 at 03:45; Stop 02/10/18 at 04:45; Status DC Magnesium Hydroxide (Milk Of Magnesia) 2,400 mg 1X ONCE PO ; Start 02/10/18 at 05:30; Stop 02/10/18 at 05:32; Status DC Potassium Chloride (KCl Oral Soln) 40 meq 1X ONCE PO ; Start 02/10/18 at 05:30 ; Stop 02/10/18 at 05:32; Status DC Acetaminophen (Tylenol) 650 mg PRN Q6HRS PRN PO PAIN / TEMP Last administered on 02/23/18 12:43; Start 02/10/18 at 06:15 Multi-Ingredient Ointment (Analgesic [place]) 1 guanaco PRN QID PRN TP MUSCLE PAIN; Start 02/10/18 at 06:15 Al Hydroxide/Mg Hydroxide (Mylanta Plus Xs) 15 ml PRN AFTMEALHC PRN PO DYSPEPSIA; Start 02/10/18 at 06:15 Magnesium Hydroxide (Milk Of Magnesia) 2,400 mg PRN QHS PRN PO CONSTIPATION Last administered on 03/23/18 22:18; Start 02/10/18 at 06:15 Influenza Virus Vaccine (Afluria Trivalent 6050-6154 Syringe) 0.5 ml ONCE ONCE VAX IM Last administered on 02/10/18 14:21; Start 02/10/18 at 09:00; Stop at 09:01; Status DC Vitamin D (Vitamin D3) 50,000 unit QTH PO Last administered on 03/20/18at 16:46 ; Start 02/13/18 at 16:00 Albuterol/ Ipratropium (Duoneb) 3 ml DAILY NEB Last administered on 03/26/18 09:47; Start 02/10/18 at 09:00 Lactobacillus Rhamnosus (Culturelle) 1 cap BID PO Last administered on 09:03; Start 02/10/18 at 09:00; Stop 02/22/18 at 18:00; Status DC Potassium Chloride (Klor-Con) 40 meq BIDWMEALS PO Last administered on 17:52; Start 02/10/18 at 08:00 Amantadine HCl (Symmetrel) 100 mg BID PO Last administered on 02/26/18 08:21; Start 02/10/18 at 09:00; Stop 02/26/18 at 11:24; Status DC Buspirone HCl (Buspar) 10 mg 1300,1700 PO Last administered on 03/26/18 17:52 ; Start 02/10/18 at 13:00 Buspirone HCl (Buspar) 20 mg DAILY PO Last administered on 03/26/18at 08:55; Start 02/10/18 at 09:00 Clonazepam (KlonoPIN) 1 mg TID PO Last administered on 03/09/18 13:53; Start 02/10/18 at 09:00; Stop 03/09/18 at 18:43; Status DC Diltiazem HCl (Cardizem 24hr Cd) 120 mg DAILY PO Last administered on 08:56; Start 02/10/18 at 09:00 Furosemide (Lasix) 80 mg BID92 PO Last administered on 03/26/18 12:43; Start 02/10/18 at 09:00 Haloperidol (Haldol) 7.5 mg DAILY PO Last administered on 02/19/18 09:05; Start 02/10/18 at 09:00; Stop 02/19/18 at 18:16; Status DC Non-Formulary Medication (Haloperidol Decanoate (Haldol Decanoate 100)) 450 mg Q4WK IM ; Start 02/10/18 at 09:00; Stop 02/10/18 at 16:12; Status DC Non-Formulary Medication (Insulin Aspart (Novolog Flexpen)) see protocol TIDWMEALS SQ ; Start 02/10/18 at 08:00; Status UNV Magnesium Oxide (Magnesium Oxide) 400 mg BID PO Last administered on 19:45; Start 02/10/18 at 09:00 Metformin HCl (Glucophage) 500 mg BIDWMEALS PO Last administered on 03/26/18 17:52; Start 02/10/18 at 08:00 Metolazone (Zaroxolyn) 5 mg DAILY PO Last administered on 03/26/18 09:01; Start 02/10/18 at 09:00 Mirtazapine (Remeron) 15 mg QHS PO Last administered on 03/26/18 19:45; Start 02/10/18 at 21:00 Pioglitazone HCl (Actos) 15 mg DAILY PO Last administered on 03/26/18 08:55; Start 02/10/18 at 09:00 Trazodone HCl (Desyrel) 25 mg TID@0900,1300,1700 PO Last administered on 17:52; Start 02/10/18 at 09:00 Valproic Acid (Depakene) 750 mg TID PO Last administered on 02/17/18at 21:01; Start 02/10/18 at 09:00; Stop 02/18/18 at 08:06; Status DC Insulin Human Lispro (HumaLOG) 0-9 UNITS TIDWMEALS SQ Last administered on at 17:51; Start 02/10/18 at 08:00 Dextrose 12.5 gm PRN Q15MIN PRN IV SEE COMMENTS; Start 02/10/18 at 06:30 Olanzapine (ZyPREXA ZYDIS) 5 mg PRN Q2HR PRN PO PSYCHOSIS Last administered on 03/02/18at 12:27; Start 02/10/18 at 06:45 Haloperidol Decanoate (Haldol Decanoate Im Extended Release) 450 mg Q4WK IM Last administered on 03/10/18at 08:50; Start 03/10/18 at 09:00 Trazodone HCl (Desyrel) 25 mg STK-MED ONCE .ROUTE ; Start 02/10/18 at 09:00; Stop 02/11/18 at 10:03; Status DC Trazodone HCl (Desyrel) 25 mg STK-MED ONCE .ROUTE ; Start 02/10/18 at 09:00; Stop 02/11/18 at 10:03; Status DC Trazodone HCl (Desyrel) 25 mg STK-MED ONCE .ROUTE ; Start 02/10/18 at 09:00; Stop 02/11/18 at 10:03; Status DC Trazodone HCl (Desyrel) 25 mg STK-MED ONCE .ROUTE ; Start 02/11/18 at 09:00; Stop 02/11/18 at 10:04; Status DC Clozapine (Clozaril) 25 mg HS PO Last administered on 02/16/18at 21:13; Start at 21:00; Stop 02/17/18 at 17:40; Status DC Nystatin (Nystop) 1 guanaco BID TP Last administered on 03/26/18at 19:45; Start at 09:00 Trazodone HCl (Desyrel) 100 mg PRN QHS PRN PO INSOMNIA, MAY REPEAT X1; Start at 17:00; Stop 02/16/18 at 22:42; Status DC Trazodone HCl (Desyrel) 100 mg QHS PO Last administered on 03/26/18at 19:44; Start 02/16/18 at 23:00 Trazodone HCl (Desyrel) 100 mg PRN QHS PRN PO insomnia Last administered on at 19:46; Start 02/16/18 at 22:45 Clozapine (Clozaril) 50 mg HS PO Last administered on 02/23/18at 19:21; Start at 21:00; Stop 02/24/18 at 16:13; Status DC Divalproex Sodium (Depakote Sprinkles) 750 mg TID PO Last administered on 03/26at 19:44; Start 02/18/18 at 09:00 Haloperidol (Haldol) 5 mg DAILY PO Last administered on 03/03/18at 09:32; Start 02/20/18 at 09:00; Stop 03/03/18 at 16:23; Status DC Clozapine (Clozaril) 75 mg HS PO Last administered on 03/02/18at 19:49; Start 02/24/18 at 21:00; Stop 03/03/18 at 16:23; Status DC Clozapine (Clozaril) 100 mg HS PO ; Start 03/03/18 at 16:30; Stop 03/03/18 at 17 :06; Status DC Clozapine (Clozaril) 100 mg HS PO Last administered on 03/10/18at 20:52; Start 03/03/18 at 21:00; Stop 03/10/18 at 22:18; Status DC Sodium Chloride 500 ml @ 0 mls/hr 1X ONCE IV Last administered on 03/08/18at 13:00; Start 03/08/18 at 13:00; Stop 03/08/18 at 13:01; Status DC Sodium Chloride 500 ml @ 125 mls/hr 1X ONCE IV Last administered on at 14:30; Start 03/08/18 at 15:15; Stop 03/08/18 at 19:14; Status DC Clonazepam (KlonoPIN) 1 mg 1200,1700 PO Last administered on 03/21/18at 17:00; Start 03/10/18 at 12:00; Stop 03/21/18 at 18:15; Status DC Clonazepam (KlonoPIN) 0.5 mg DAILY PO Last administered on 03/21/18 09:29; Start 03/10/18 at 09:00; Stop 03/21/18 at 17:54; Status DC Nystatin (Mycostatin) 5 ml QID SWSW Last administered on 03/18/18at 19:43; Start 03/10/18 at 13:00; Stop 03/19/18 at 16:01; Status DC Clozapine (Clozaril) 125 mg HS PO Last administered on 03/16/18at 20:13; Start 03/11/18 at 21:00; Stop 03/17/18 at 18:02; Status DC Cefpodoxime Proxetil (Vantin) 100 mg BID PO Last administered on 03/19/18at 08: 05; Start 03/17/18 at 21:00; Stop 03/19/18 at 16:01; Status DC Clozapine (Clozaril) 150 mg HS PO Last administered on 03/23/18at 17:57; Start 03/17/18 at 21:00; Stop 03/24/18 at 16:30; Status DC Doxycycline Hyclate (Vibra-Tab) 100 mg BID PO Last administered on 03/26/18 19:44; Start 03/19/18 at 09:00; Stop 03/29/18 at 08:59 Doxycycline Hyclate (Vibra-Tab) 100 mg 1X ONCE PO ; Start 03/18/18 at 23:45; Stop 03/18/18 at 23:48; Status DC Lactobacillus Rhamnosus (Culturelle) 1 cap BID PO Last administered on at 19:44; Start 03/19/18 at 21:00 Clonazepam (KlonoPIN) 1 mg 1200 PO Last administered on 03/22/18at 13:55; Start 03/22/18 at 12:00; Stop 03/24/18 at 11:59; Status DC Clonazepam (KlonoPIN) 1 mg QHS PO Last administered on 03/26/18 19:47; Start 03/21/18 at 21:00 Clonazepam (KlonoPIN) 0.5 mg 1200 PO Last administered on 03/26/18at 12:41; Start 03/24/18 at 12:00 Clozapine (Clozaril) 175 mg HS PO Last administered on 10/31/18at 19:47; Start 03/24/18 at 21:00 Potassium Chloride (Klor-Con) 20 meq STK-MED ONCE PO ; Start 03/26/18 at 09:33 ; Stop 03/26/18 at 09:34; Status DC Active Scripts Active Reported Duoneb 0.5-3(2.5) Mg/3 Ml (Albuterol/Ipratropium) 3 Ml Ampul.neb 3 Ml NEB DAILY Zyprexa Zydis (Olanzapine) 5 Mg Tab.rapdis 5 Mg PO PRN Q2HR PRN Buspirone Hcl 10 Mg Tablet 10 Mg PO BID@1300,1700 Valproic Acid (Valproate Sodium) 250 Mg/5 Ml Solution 750 Mg PO TID Novolog Flexpen (Insulin Aspart) 100 Unit/1 Ml Insuln.pen 0-9 Unit SQ TIDWMEALS <70 follow hypoglycemic protocol 70-150 0units if eating/ 0 if not eating 151-200 4 units if eating/ 0 units if not eating 201-250 5 units if eating/ 3 units if not eating 251-300 7 units if eating/ 4 units if not eating 301-350 9 units if eating/ 5 units if not eating > 351 Call Physician for futher orders Trazodone Hcl 100 Mg Tablet 200 Mg PO PRN QHS PRN Trazodone Hcl 50 Mg Tablet 25 Mg PO TID@0900,1300,1700 Culturelle (Lactobacillus Rhamnosus Gg) 1 Each Cap.sprink 1 Each PO BID Haloperidol 5 Mg Tablet 7.5 Mg PO DAILY Tylenol (Acetaminophen) 325 Mg Tablet 650 Mg PO PRN Q6HRS PRN Buspirone Hcl 10 Mg Tablet 20 Mg PO DAILY Theophylline Anhydrous 200 Mg Tab.er.12h 200 Mg PO BID Metolazone 5 Mg Tablet 5 Mg PO DAILY Metformin Hcl 500 Mg Tablet 500 Mg PO BIDWMEALS Cardizem Tablet (Diltiazem Hcl) 120 Mg Tablet 120 Mg PO DAILY Amantadine (Amantadine Hcl) 100 Mg Tablet 100 Mg PO BID Actos (Pioglitazone Hcl) 15 Mg Tablet 15 Mg PO DAILY Mirtazapine 15 Mg Tablet 15 Mg PO QHS Haldol Decanoate 100 (Haloperidol Decanoate) 100 Mg/1 Ml Ampul 450 Mg IM Q4WK Klor-Con M20 (Potassium Chloride) 20 Meq Tab.er.prt 40 Meq PO BIDWMEALS Analgesic [place] (Methyl Salicylate/Menthol) 28 Gm Oint...g. 1 [place] TP PRN QID PRN Magnesium Oxide 400 Mg Tablet 400 Mg PO BID Milk Of Magnesia (Magnesium Hydroxide) 2,400 Mg/10 Ml Oral.susp 2,400 Mg PO PRN QHS PRN Maalox Advanced Suspension (Mag Hydrox/Aluminum Hyd/Simeth) 355 Ml Oral.susp 15 Ml PO PRN AFTMEALHC PRN D3-50 (Cholecalciferol (Vitamin D3)) 50,000 Unit Capsule 50,000 Unit PO QTH Clonazepam 1 Mg Tablet 1 Mg PO TID Furosemide 40 Mg Tablet 80 Mg PO [id number] Hold for SBP less than 100. After held dose, reassess in 2 hours. If SBP is above threshold, administer dose as ordered. If SBP is below threshold, contact provider for additional instructions. I have reviewed the current psychotropics carefully including drug interactions. Risk benefit ratio favors no change other than as noted in my dictated progress note. Diagnosis: Problems: (1) Depression (2) Schizoaffective disorder (3) Anxiety disorder (4) Impulse control disorder (5) Schizoaffective disorder, chronic condition with acute exacerbation KALIN STARKS MD Mar 26, 2018 23:30
[2018-03-27 05:54] VITALS: BP 130/79
[2018-03-27] MEDS: DIVALPROEX 125 MG CAP.SPRINK PO SCH ×3 (08:55→19:16)
[2018-03-27] MEDS: PIOGLITAZONE 15 MG TABLET. PO SCH (08:56)
[2018-03-27] MEDS: LACTOBACILLUS RHAMNOSUS GG 1 CAPSULE. PO SCH ×2 (08:56→19:17)
[2018-03-27] MEDS: DOXYCYCLINE HYCLATE 100 MG TABLET PO SCH ×2 (08:56→19:17)
[2018-03-27] MEDS: POTASSIUM CHLORIDE 20 MEQ TABLET.ER. PO SCH ×2 (08:56→17:53)
[2018-03-27] MEDS: FUROSEMIDE 80 MG TABLET PO SCH ×2 (08:57→14:00)
[2018-03-27] MEDS: busPIRone 10 MG TABLET. PO SCH ×3 (08:57→17:52)
[2018-03-27] MEDS: metFORMIN 500 MG TABLET PO SCH ×2 (08:57→17:53)
[2018-03-27] MEDS: traZODone 50 MG TABLET. PO SCH ×3 (08:57→17:53)
[2018-03-27] MEDS: MAGNESIUM OXIDE 400 MG TABLET PO SCH ×2 (08:58→19:19)
[2018-03-27] MEDS: NYSTATIN TOPICAL POWDER 15GM BOTTLE. TP SCH ×2 (09:01→19:21)
[2018-03-27] MEDS: metOLazone 5 MG TABLET PO SCH (09:01)
[2018-03-27] MEDS: INSULIN LISPRO 300 UNITS/3 ML INSULN.PEN. SQ SCH ×3 (09:03→17:55)
[2018-03-27] MEDS: IPRATRPIUM/ALBUTEROL 0.5/2.5MG 3 ML NEBU. NEB SCH (10:01)
[2018-03-27] MEDS ORDERED: DEXTROSE ORAL GEL 15 GM TUBE. ONE (11:26)
[2018-03-27] MEDS: clonazePAM 0.5 MG TABLET PO SCH (13:19)
[2018-03-27 16:15] VITALS: BP 138/69
[2018-03-27] MEDS: CHOLECALCIFEROL (VITAMIN D3) 50,000 UNIT CAPSULE PO SCH (17:52)
[2018-03-27] MEDS: cloZAPine 100 MG TABLET PO SCH (19:19)
[2018-03-27] MEDS: MIRTAZAPINE 15 MG TABLET PO SCH (19:19)
[2018-03-27] MEDS: traZODone 100 MG TABLET. PO SCH (19:19)
[2018-03-27] MEDS: clonazePAM 1 MG TABLET PO SCH (19:21)
--- NOTE | 2018-03-27 23:18 | PDOC ---
Exam Note: Napoleon Note: Please also refer to the separate dictated note~for this date of service dictated separately.~Patient seen individually. Discussed the patient with Nursing staff reviewed the chart.~Reviewed interim history and current functioning. Reviewed vital signs,~Labs/ Radiology~and current medications noted below. Continue current treatment with the changes noted in the dictated addendum note Assessment: Vital Signs: Vital Signs Date Time Temp Pulse Resp B/P (MAP) Pulse Ox O2 Delivery O2 Flow Rate FiO2 03/27/18 16:15 97.9 61 20 138/69 (92) 92 Room Air I&O Intake and Output 03/27/18 07:00 Intake Total 1200 ml Balance 1200 ml Intake Oral 1200 ml Labs: Laboratory Tests Test 03/27/18 07:43 03/27/18 11:40 03/27/18 16:47 03/27/18 19:22 Glucose (Fingerstick) 178 mg/dL (70-99) H 250 mg/dL (70-99) H 199 mg/dL (70-99) H Glucose Level 195 mg/dL (70-99) H Current Medications: Meds: Current Medications Lorazepam (Ativan) 2 mg 1X ONCE IM ; Start 02/10/18 at 04:00; Stop 02/10/18 at 04:01; Status DC Diphenhydramine HCl (Benadryl) 50 mg 1X ONCE IM ; Start 02/10/18 at 04:00; Stop 02/10/18 at 04:01; Status DC Ziprasidone (Geodon Im) 20 mg 1X ONCE IM ; Start 02/10/18 at 04:00; Stop at 04:01; Status DC Multivitamins/ Minerals 10 ml/ Folic Acid 1 mg/ Thiamine HCl 100 mg/Lactated Ringer's 1,011.1 ml @ 1,000 mls/ hr 1X ONCE IV ; Start 02/10/18 at 03:45; Stop 02/10/18 at 04:45; Status DC Magnesium Hydroxide (Milk Of Magnesia) 2,400 mg 1X ONCE PO ; Start 02/10/18 at 05:30; Stop 02/10/18 at 05:32; Status DC Potassium Chloride (KCl Oral Soln) 40 meq 1X ONCE PO ; Start 02/10/18 at 05:30 ; Stop 02/10/18 at 05:32; Status DC Acetaminophen (Tylenol) 650 mg PRN Q6HRS PRN PO PAIN / TEMP Last administered on 02/23/18at 12:43; Start 02/10/18 at 06:15 Multi-Ingredient Ointment (Analgesic [place]) 1 guanaco PRN QID PRN TP MUSCLE PAIN; Start 02/10/18 at 06:15 Al Hydroxide/Mg Hydroxide (Mylanta Plus Xs) 15 ml PRN AFTMEALHC PRN PO DYSPEPSIA; Start 02/10/18 at 06:15 Magnesium Hydroxide (Milk Of Magnesia) 2,400 mg PRN QHS PRN PO CONSTIPATION Last administered on 03/23/18at 22:18; Start 02/10/18 at 06:15 Influenza Virus Vaccine (Afluria Trivalent 4042-4332 Syringe) 0.5 ml ONCE ONCE VAX IM Last administered on 02/10/18at 14:21; Start 02/10/18 at 09:00; Stop at 09:01; Status DC Vitamin D (Vitamin D3) 50,000 unit QTH PO Last administered on 03/27/18at 17:52 ; Start 02/13/18 at 16:00 Albuterol/ Ipratropium (Duoneb) 3 ml DAILY NEB Last administered on 03/27/18at 10:01; Start 02/10/18 at 09:00 Lactobacillus Rhamnosus (Culturelle) 1 cap BID PO Last administered on at 09:03; Start 02/10/18 at 09:00; Stop 02/22/18 at 18:00; Status DC Potassium Chloride (Klor-Con) 40 meq BIDWMEALS PO Last administered on at 17:53; Start 02/10/18 at 08:00 Amantadine HCl (Symmetrel) 100 mg BID PO Last administered on 02/26/18at 08:21; Start 02/10/18 at 09:00; Stop 02/26/18 at 11:24; Status DC Buspirone HCl (Buspar) 10 mg 1300,1700 PO Last administered on 03/27/18 17:52 ; Start 02/10/18 at 13:00 Buspirone HCl (Buspar) 20 mg DAILY PO Last administered on 03/27/18at 08:57; Start 02/10/18 at 09:00 Clonazepam (KlonoPIN) 1 mg TID PO Last administered on 03/09/18at 13:53; Start 02/10/18 at 09:00; Stop 03/09/18 at 18:43; Status DC Diltiazem HCl (Cardizem 24hr Cd) 120 mg DAILY PO Last administered on at 08:56; Start 02/10/18 at 09:00 Furosemide (Lasix) 80 mg BID92 PO Last administered on 03/27/18at 14:00; Start 02/10/18 at 09:00 Haloperidol (Haldol) 7.5 mg DAILY PO Last administered on 02/19/18at 09:05; Start 02/10/18 at 09:00; Stop 02/19/18 at 18:16; Status DC Non-Formulary Medication (Haloperidol Decanoate (Haldol Decanoate 100)) 450 mg Q4WK IM ; Start 02/10/18 at 09:00; Stop 02/10/18 at 16:12; Status DC Non-Formulary Medication (Insulin Aspart (Novolog Flexpen)) see protocol TIDWMEALS SQ ; Start 02/10/18 at 08:00; Status UNV Magnesium Oxide (Magnesium Oxide) 400 mg BID PO Last administered on 03/27/18 19:19; Start 02/10/18 at 09:00 Metformin HCl (Glucophage) 500 mg BIDWMEALS PO Last administered on 03/27/18at 17:53; Start 02/10/18 at 08:00 Metolazone (Zaroxolyn) 5 mg DAILY PO Last administered on 03/27/18at 09:01; Start 02/10/18 at 09:00 Mirtazapine (Remeron) 15 mg QHS PO Last administered on 03/27/18 19:19; Start 02/10/18 at 21:00 Pioglitazone HCl (Actos) 15 mg DAILY PO Last administered on 03/27/18at 08:56; Start 02/10/18 at 09:00 Trazodone HCl (Desyrel) 25 mg TID@0900,1300,1700 PO Last administered on at 17:53; Start 02/10/18 at 09:00 Valproic Acid (Depakene) 750 mg TID PO Last administered on 02/17/18at 21:01; Start 02/10/18 at 09:00; Stop 02/18/18 at 08:06; Status DC Insulin Human Lispro (HumaLOG) 0-9 UNITS TIDWMEALS SQ Last administered on 03/27at 17:55; Start 02/10/18 at 08:00 Dextrose 12.5 gm PRN Q15MIN PRN IV SEE COMMENTS; Start 02/10/18 at 06:30 Olanzapine (ZyPREXA ZYDIS) 5 mg PRN Q2HR PRN PO PSYCHOSIS Last administered on 03/02/18at 12:27; Start 02/10/18 at 06:45 Haloperidol Decanoate (Haldol Decanoate Im Extended Release) 450 mg Q4WK IM Last administered on 03/10/18at 08:50; Start 03/10/18 at 09:00 Trazodone HCl (Desyrel) 25 mg STK-MED ONCE .ROUTE ; Start 02/10/18 at 09:00; Stop 02/11/18 at 10:03; Status DC Trazodone HCl (Desyrel) 25 mg STK-MED ONCE .ROUTE ; Start 02/10/18 at 09:00; Stop 02/11/18 at 10:03; Status DC Trazodone HCl (Desyrel) 25 mg STK-MED ONCE .ROUTE ; Start 02/10/18 at 09:00; Stop 02/11/18 at 10:03; Status DC Trazodone HCl (Desyrel) 25 mg STK-MED ONCE .ROUTE ; Start 02/11/18 at 09:00; Stop 02/11/18 at 10:04; Status DC Clozapine (Clozaril) 25 mg HS PO Last administered on 02/16/18at 21:13; Start at 21:00; Stop 02/17/18 at 17:40; Status DC Nystatin (Nystop) 1 guanaco BID TP Last administered on 03/27/18at 19:21; Start at 09:00 Trazodone HCl (Desyrel) 100 mg PRN QHS PRN PO INSOMNIA, MAY REPEAT X1; Start at 17:00; Stop 02/16/18 at 22:42; Status DC Trazodone HCl (Desyrel) 100 mg QHS PO Last administered on 03/27/18at 19:19; Start 02/16/18 at 23:00 Trazodone HCl (Desyrel) 100 mg PRN QHS PRN PO insomnia Last administered on at 19:46; Start 02/16/18 at 22:45 Clozapine (Clozaril) 50 mg HS PO Last administered on 02/23/18at 19:21; Start at 21:00; Stop 02/24/18 at 16:13; Status DC Divalproex Sodium (Depakote Sprinkles) 750 mg TID PO Last administered on at 19:16; Start 02/18/18 at 09:00 Haloperidol (Haldol) 5 mg DAILY PO Last administered on 03/03/18at 09:32; Start 02/20/18 at 09:00; Stop 03/03/18 at 16:23; Status DC Clozapine (Clozaril) 75 mg HS PO Last administered on 03/02/18at 19:49; Start 02/24/18 at 21:00; Stop 03/03/18 at 16:23; Status DC Clozapine (Clozaril) 100 mg HS PO ; Start 03/03/18 at 16:30; Stop 03/03/18 at 17 :06; Status DC Clozapine (Clozaril) 100 mg HS PO Last administered on 03/10/18at 20:52; Start 03/03/18 at 21:00; Stop 03/10/18 at 22:18; Status DC Sodium Chloride 500 ml @ 0 mls/hr 1X ONCE IV Last administered on 03/08/18at 13:00; Start 03/08/18 at 13:00; Stop 03/08/18 at 13:01; Status DC Sodium Chloride 500 ml @ 125 mls/hr 1X ONCE IV Last administered on at 14:30; Start 03/08/18 at 15:15; Stop 03/08/18 at 19:14; Status DC Clonazepam (KlonoPIN) 1 mg 1200,1700 PO Last administered on 03/21/18at 17:00; Start 03/10/18 at 12:00; Stop 03/21/18 at 18:15; Status DC Clonazepam (KlonoPIN) 0.5 mg DAILY PO Last administered on 03/21/18at 09:29; Start 03/10/18 at 09:00; Stop 03/21/18 at 17:54; Status DC Nystatin (Mycostatin) 5 ml QID SWSW Last administered on 03/18/18at 19:43; Start 03/10/18 at 13:00; Stop 03/19/18 at 16:01; Status DC Clozapine (Clozaril) 125 mg HS PO Last administered on 03/16/18at 20:13; Start 03/11/18 at 21:00; Stop 03/17/18 at 18:02; Status DC Cefpodoxime Proxetil (Vantin) 100 mg BID PO Last administered on 03/19/18at 08: 05; Start 03/17/18 at 21:00; Stop 03/19/18 at 16:01; Status DC Clozapine (Clozaril) 150 mg HS PO Last administered on 03/23/18at 17:57; Start 03/17/18 at 21:00; Stop 03/24/18 at 16:30; Status DC Doxycycline Hyclate (Vibra-Tab) 100 mg BID PO Last administered on 03/27/18 19 :17; Start 03/19/18 at 09:00; Stop 03/29/18 at 08:59 Doxycycline Hyclate (Vibra-Tab) 100 mg 1X ONCE PO ; Start 03/18/18 at 23:45; Stop 03/18/18 at 23:48; Status DC Lactobacillus Rhamnosus (Culturelle) 1 cap BID PO Last administered on 19:17; Start 03/19/18 at 21:00 Clonazepam (KlonoPIN) 1 mg 1200 PO Last administered on 03/22/18at 13:55; Start 03/22/18 at 12:00; Stop 03/24/18 at 11:59; Status DC Clonazepam (KlonoPIN) 1 mg QHS PO Last administered on 03/27/18at 19:21; Start 03/21/18 at 21:00 Clonazepam (KlonoPIN) 0.5 mg 1200 PO Last administered on 03/27/18at 13:19; Start 03/24/18 at 12:00 Clozapine (Clozaril) 175 mg HS PO Last administered on 03/27/18at 19:19; Start 03/24/18 at 21:00 Potassium Chloride (Klor-Con) 20 meq STK-MED ONCE PO ; Start 03/26/18 at 09:33 ; Stop 03/26/18 at 09:34; Status DC Glucose (Insta-Glucose) 15 gm STK-MED ONCE .ROUTE ; Start 03/27/18 at 11:26; Stop 03/27/18 at 11:27; Status DC Active Scripts Active Reported Duoneb 0.5-3(2.5) Mg/3 Ml (Albuterol/Ipratropium) 3 Ml Ampul.neb 3 Ml NEB DAILY Zyprexa Zydis (Olanzapine) 5 Mg Tab.rapdis 5 Mg PO PRN Q2HR PRN Buspirone Hcl 10 Mg Tablet 10 Mg PO BID@1300,1700 Valproic Acid (Valproate Sodium) 250 Mg/5 Ml Solution 750 Mg PO TID Novolog Flexpen (Insulin Aspart) 100 Unit/1 Ml Insuln.pen 0-9 Unit SQ TIDWMEALS <70 follow hypoglycemic protocol 70-150 0units if eating/ 0 if not eating 151-200 4 units if eating/ 0 units if not eating 201-250 5 units if eating/ 3 units if not eating 251-300 7 units if eating/ 4 units if not eating 301-350 9 units if eating/ 5 units if not eating > 351 Call Physician for futher orders Trazodone Hcl 100 Mg Tablet 200 Mg PO PRN QHS PRN Trazodone Hcl 50 Mg Tablet 25 Mg PO TID@0900,1300,1700 Culturelle (Lactobacillus Rhamnosus Gg) 1 Each Cap.sprink 1 Each PO BID Haloperidol 5 Mg Tablet 7.5 Mg PO DAILY Tylenol (Acetaminophen) 325 Mg Tablet 650 Mg PO PRN Q6HRS PRN Buspirone Hcl 10 Mg Tablet 20 Mg PO DAILY Theophylline Anhydrous 200 Mg Tab.er.12h 200 Mg PO BID Metolazone 5 Mg Tablet 5 Mg PO DAILY Metformin Hcl 500 Mg Tablet 500 Mg PO BIDWMEALS Cardizem Tablet (Diltiazem Hcl) 120 Mg Tablet 120 Mg PO DAILY Amantadine (Amantadine Hcl) 100 Mg Tablet 100 Mg PO BID Actos (Pioglitazone Hcl) 15 Mg Tablet 15 Mg PO DAILY Mirtazapine 15 Mg Tablet 15 Mg PO QHS Haldol Decanoate 100 (Haloperidol Decanoate) 100 Mg/1 Ml Ampul 450 Mg IM Q4WK Klor-Con M20 (Potassium Chloride) 20 Meq Tab.er.prt 40 Meq PO BIDWMEALS Analgesic [place] (Methyl Salicylate/Menthol) 28 Gm Oint...g. 1 [place] TP PRN QID PRN Magnesium Oxide 400 Mg Tablet 400 Mg PO BID Milk Of Magnesia (Magnesium Hydroxide) 2,400 Mg/10 Ml Oral.susp 2,400 Mg PO PRN QHS PRN Maalox Advanced Suspension (Mag Hydrox/Aluminum Hyd/Simeth) 355 Ml Oral.susp 15 Ml PO PRN AFTMEALHC PRN D3-50 (Cholecalciferol (Vitamin D3)) 50,000 Unit Capsule 50,000 Unit PO QTH Clonazepam 1 Mg Tablet 1 Mg PO TID Furosemide 40 Mg Tablet 80 Mg PO [id number] Hold for SBP less than 100. After held dose, reassess in 2 hours. If SBP is above threshold, administer dose as ordered. If SBP is below threshold, contact provider for additional instructions. I have reviewed the current psychotropics carefully including drug interactions. Risk benefit ratio favors no change other than as noted in my dictated progress note. Diagnosis: Problems: (1) Depression (2) Schizoaffective disorder (3) Anxiety disorder (4) Impulse control disorder (5) Schizoaffective disorder, chronic condition with acute exacerbation KALIN STARKS MD Mar 27, 2018 23:18
--- NOTE | 2018-03-28 02:18 | PN ---
DATE: 03/26/2018 PSYCHIATRIC PROGRESS NOTE This late entry 03/26/2018 covers elements not covered in my initial note. SUBJECTIVE: I met with the physician in the evening. The patient slept 6-1/4 hours previous night. She has been arguing, somewhat resistive to medication, but the yelling is better. Towards the evening, she felt she was getting ready to go to a alliance party. REVIEW OF SYSTEMS: Ambulation impaired with walker. No CV, , pulmonary, eye, ENT system symptoms on review. Reliability poor. MENTAL STATUS EXAM: Oriented to herself and situation. Speech has some latency, often responses monosyllabic, coherent. Abstraction fair, computation impaired, language function intact, attention span short. Mood and affect remains intermittently labile, but much improved from admission. The yelling that was persistent, loud, disruptive; shortly after admission for several days has much improved as is the psychotic symptoms. LABORATORY DATA: Reviewed. IMPRESSION: Schizoaffective disorder, bipolar type, mixed with psychotic features, in partial remission; anxiety disorder, unspecified; impulse control disorder, unspecified. PLAN: Continue psychotropics from initial note. Valproic acid level is therapeutic at 65. Continue Depakote at current dosage. Clozaril has been gradually increased, currently at 175 mg p.o. at bedtime. Maintain the Haldol Decanoate BuSpar, Remeron. Klonopin is being tapered and she is on scheduled trazodone during the day, Zyprexa p.r.n., and trazodone at night. KALIN STARKS MD DR: TRACIE/karli JOB#: [id number] / [id number]
[2018-03-28 06:18] VITALS: BP 105/67
[2018-03-28] MEDS: DIVALPROEX 125 MG CAP.SPRINK PO SCH ×3 (07:57→19:31)
[2018-03-28] MEDS: NYSTATIN TOPICAL POWDER 15GM BOTTLE. TP SCH ×2 (07:57→19:31)
[2018-03-28] MEDS: metOLazone 5 MG TABLET PO SCH (07:57)
[2018-03-28] MEDS: busPIRone 10 MG TABLET. PO SCH ×3 (07:58→17:00)
[2018-03-28] MEDS: traZODone 50 MG TABLET. PO SCH ×3 (07:58→17:00)
[2018-03-28] MEDS: POTASSIUM CHLORIDE 20 MEQ TABLET.ER. PO SCH ×2 (07:58→17:00)
[2018-03-28] MEDS: LACTOBACILLUS RHAMNOSUS GG 1 CAPSULE. PO SCH ×2 (07:58→19:31)
[2018-03-28] MEDS: FUROSEMIDE 80 MG TABLET PO SCH ×2 (07:58→12:02)
[2018-03-28] MEDS: metFORMIN 500 MG TABLET PO SCH ×2 (07:58→17:00)
[2018-03-28] MEDS: DOXYCYCLINE HYCLATE 100 MG TABLET PO SCH ×2 (07:58→19:31)
[2018-03-28] MEDS: INSULIN LISPRO 300 UNITS/3 ML INSULN.PEN. SQ SCH ×3 (07:59→17:00)
[2018-03-28] MEDS: MAGNESIUM OXIDE 400 MG TABLET PO SCH ×2 (07:59→19:31)
[2018-03-28] MEDS: PIOGLITAZONE 15 MG TABLET. PO SCH (07:59)
[2018-03-28] MEDS: IPRATRPIUM/ALBUTEROL 0.5/2.5MG 3 ML NEBU. NEB SCH (11:02)
[2018-03-28] MEDS: clonazePAM 0.5 MG TABLET PO SCH (12:01)
[2018-03-28 15:56] VITALS: BP 99/61
[2018-03-28] MEDS: MIRTAZAPINE 15 MG TABLET PO SCH (19:30)
[2018-03-28] MEDS: clonazePAM 1 MG TABLET PO SCH (19:30)
[2018-03-28] MEDS: traZODone 100 MG TABLET. PO SCH (19:31)
[2018-03-28] MEDS: cloZAPine 100 MG TABLET PO SCH (19:31)
--- NOTE | 2018-03-28 22:54 | PN ---
DATE: 03/27/2018 PSYCHIATRIC PROGRESS NOTE This late entry 03/27/2018 covers elements not covered in my initial note. SUBJECTIVE: I met with the patient in the evening, staffed at a treatment team meeting with the entire team in the morning. The patient slept 5 hours previous night. She argues when meds are administered, but more compliant with this. REVIEW OF SYSTEMS: Ambulation impaired with walker. No CV, , pulmonary, eye, ENT system symptoms on review. Reliability varies. MENTAL STATUS EXAM: Oriented to herself and situation. Speech, often responses monosyllabic. Abstraction fair, computation impaired, language function intact, attention span short. Mood and affect somewhat labile, but less aggressive, less disruptive. LABORATORY DATA: Reviewed. IMPRESSION: Schizoaffective disorder, bipolar type, mixed with psychotic features; anxiety disorder, unspecified; impulse control disorder, unspecified. PLAN: Continue psychotropics from initial note. We are constantly adjusting the Clozaril post-labs and valproic acid level is therapeutic. She remains on Haldol Decanoate, BuSpar scheduled, Klonopin is being tapered and we may consider tapering the scheduled trazodone as well. MAN Mary STARKS MD DR: TRACIE/karli JOB#: [id number] / [id number]
--- NOTE | 2018-03-28 23:15 | PDOC ---
Exam Note: [place] Note: Please also refer to the separate dictated note~for this date of service dictated separately.~Patient seen individually. Discussed the patient with Nursing staff reviewed the chart.~Reviewed interim history and current functioning. Reviewed vital signs,~Labs/ Radiology~and current medications noted below. Continue current treatment with the changes noted in the dictated addendum note Assessment: Vital Signs: Vital Signs Date Time Temp Pulse Resp B/P (MAP) Pulse Ox O2 Delivery O2 Flow Rate FiO2 03/28/18 15:56 97.4 75 17 99/61 (74) 97 Room Air I&O Intake and Output 03/28/18 07:00 Intake Total 660 ml Balance 660 ml Intake Oral 660 ml # Voids 1 Labs: Laboratory Tests Test 03/28/18 07:17 03/28/18 11:25 03/28/18 16:37 03/28/18 19:47 Glucose (Fingerstick) 135 mg/dL (70-99) H 182 mg/dL (70-99) H 154 mg/dL (70-99) H 230 mg/dL (70-99) H Current Medications: Meds: Current Medications Lorazepam (Ativan) 2 mg 1X ONCE IM ; Start 02/10/18 at 04:00; Stop 02/10/18 at 04:01; Status DC Diphenhydramine HCl (Benadryl) 50 mg 1X ONCE IM ; Start 02/10/18 at 04:00; Stop 02/10/18 at 04:01; Status DC Ziprasidone (Geodon Im) 20 mg 1X ONCE IM ; Start 02/10/18 at 04:00; Stop at 04:01; Status DC Multivitamins/ Minerals 10 ml/ Folic Acid 1 mg/ Thiamine HCl 100 mg/Lactated Ringer's 1,011.1 ml @ 1,000 mls/ hr 1X ONCE IV ; Start 02/10/18 at 03:45; Stop 02/10/18 at 04:45; Status DC Magnesium Hydroxide (Milk Of Magnesia) 2,400 mg 1X ONCE PO ; Start 02/10/18 at 05:30; Stop 02/10/18 at 05:32; Status DC Potassium Chloride (KCl Oral Soln) 40 meq 1X ONCE PO ; Start 02/10/18 at 05:30 ; Stop 02/10/18 at 05:32; Status DC Acetaminophen (Tylenol) 650 mg PRN Q6HRS PRN PO PAIN / TEMP Last administered on 02/23/18at 12:43; Start 02/10/18 at 06:15 Multi-Ingredient Ointment (Analgesic [place]) 1 guanaco PRN QID PRN TP MUSCLE PAIN; Start 02/10/18 at 06:15 Al Hydroxide/Mg Hydroxide (Mylanta Plus Xs) 15 ml PRN AFTMEALHC PRN PO DYSPEPSIA; Start 02/10/18 at 06:15 Magnesium Hydroxide (Milk Of Magnesia) 2,400 mg PRN QHS PRN PO CONSTIPATION Last administered on 03/23/18at 22:18; Start 02/10/18 at 06:15 Influenza Virus Vaccine (Afluria Trivalent 3434-2399 Syringe) 0.5 ml ONCE ONCE VAX IM Last administered on 02/10/18at 14:21; Start 02/10/18 at 09:00; Stop at 09:01; Status DC Vitamin D (Vitamin D3) 50,000 unit QTH PO Last administered on 03/27/18 17:52 ; Start 02/13/18 at 16:00 Albuterol/ Ipratropium (Duoneb) 3 ml DAILY NEB Last administered on 03/28/18 11:02; Start 02/10/18 at 09:00 Lactobacillus Rhamnosus (Culturelle) 1 cap BID PO Last administered on at 09:03; Start 02/10/18 at 09:00; Stop 02/22/18 at 18:00; Status DC Potassium Chloride (Klor-Con) 40 meq BIDWMEALS PO Last administered on 07:58; Start 02/10/18 at 08:00 Amantadine HCl (Symmetrel) 100 mg BID PO Last administered on 02/26/18 08:21; Start 02/10/18 at 09:00; Stop 02/26/18 at 11:24; Status DC Buspirone HCl (Buspar) 10 mg 1300,1700 PO Last administered on 03/27/18 17:52 ; Start 02/10/18 at 13:00 Buspirone HCl (Buspar) 20 mg DAILY PO Last administered on 03/28/18at 07:58; Start 02/10/18 at 09:00 Clonazepam (KlonoPIN) 1 mg TID PO Last administered on 03/09/18at 13:53; Start 02/10/18 at 09:00; Stop 03/09/18 at 18:43; Status DC Diltiazem HCl (Cardizem 24hr Cd) 120 mg DAILY PO Last administered on 07:59; Start 02/10/18 at 09:00 Furosemide (Lasix) 80 mg BID92 PO Last administered on 03/28/18 07:58; Start 02/10/18 at 09:00 Haloperidol (Haldol) 7.5 mg DAILY PO Last administered on 02/19/18at 09:05; Start 02/10/18 at 09:00; Stop 02/19/18 at 18:16; Status DC Non-Formulary Medication (Haloperidol Decanoate (Haldol Decanoate 100)) 450 mg Q4WK IM ; Start 02/10/18 at 09:00; Stop 02/10/18 at 16:12; Status DC Non-Formulary Medication (Insulin Aspart (Novolog Flexpen)) see protocol TIDWMEALS SQ ; Start 02/10/18 at 08:00; Status UNV Magnesium Oxide (Magnesium Oxide) 400 mg BID PO Last administered on 03/28/18at 19:31; Start 02/10/18 at 09:00 Metformin HCl (Glucophage) 500 mg BIDWMEALS PO Last administered on 03/28/18at 07:58; Start 02/10/18 at 08:00 Metolazone (Zaroxolyn) 5 mg DAILY PO Last administered on 03/28/18at 07:57; Start 02/10/18 at 09:00 Mirtazapine (Remeron) 15 mg QHS PO Last administered on 03/28/18 19:30; Start 02/10/18 at 21:00 Pioglitazone HCl (Actos) 15 mg DAILY PO Last administered on 03/28/18 07:59; Start 02/10/18 at 09:00 Trazodone HCl (Desyrel) 25 mg TID@0900,1300,1700 PO Last administered on 07:58; Start 02/10/18 at 09:00 Valproic Acid (Depakene) 750 mg TID PO Last administered on 02/17/18at 21:01; Start 02/10/18 at 09:00; Stop 02/18/18 at 08:06; Status DC Insulin Human Lispro (HumaLOG) 0-9 UNITS TIDWMEALS SQ Last administered on 03/28at 12:01; Start 02/10/18 at 08:00 Dextrose 12.5 gm PRN Q15MIN PRN IV SEE COMMENTS; Start 02/10/18 at 06:30 Olanzapine (ZyPREXA ZYDIS) 5 mg PRN Q2HR PRN PO PSYCHOSIS Last administered on 03/02/18at 12:27; Start 02/10/18 at 06:45 Haloperidol Decanoate (Haldol Decanoate Im Extended Release) 450 mg Q4WK IM Last administered on 03/10/18at 08:50; Start 03/10/18 at 09:00 Trazodone HCl (Desyrel) 25 mg STK-MED ONCE .ROUTE ; Start 02/10/18 at 09:00; Stop 02/11/18 at 10:03; Status DC Trazodone HCl (Desyrel) 25 mg STK-MED ONCE .ROUTE ; Start 02/10/18 at 09:00; Stop 02/11/18 at 10:03; Status DC Trazodone HCl (Desyrel) 25 mg STK-MED ONCE .ROUTE ; Start 02/10/18 at 09:00; Stop 02/11/18 at 10:03; Status DC Trazodone HCl (Desyrel) 25 mg STK-MED ONCE .ROUTE ; Start 02/11/18 at 09:00; Stop 02/11/18 at 10:04; Status DC Clozapine (Clozaril) 25 mg HS PO Last administered on 02/16/18at 21:13; Start at 21:00; Stop 02/17/18 at 17:40; Status DC Nystatin (Nystop) 1 guanaco BID TP Last administered on 03/28/18at 19:31; Start at 09:00 Trazodone HCl (Desyrel) 100 mg PRN QHS PRN PO INSOMNIA, MAY REPEAT X1; Start at 17:00; Stop 02/16/18 at 22:42; Status DC Trazodone HCl (Desyrel) 100 mg QHS PO Last administered on 03/28/18 19:31; Start 02/16/18 at 23:00 Trazodone HCl (Desyrel) 100 mg PRN QHS PRN PO insomnia Last administered on at 19:46; Start 02/16/18 at 22:45 Clozapine (Clozaril) 50 mg HS PO Last administered on 02/23/18 19:21; Start at 21:00; Stop 02/24/18 at 16:13; Status DC Divalproex Sodium (Depakote Sprinkles) 750 mg TID PO Last administered on 19:31; Start 02/18/18 at 09:00 Haloperidol (Haldol) 5 mg DAILY PO Last administered on 03/03/18at 09:32; Start 02/20/18 at 09:00; Stop 03/03/18 at 16:23; Status DC Clozapine (Clozaril) 75 mg HS PO Last administered on 03/02/18at 19:49; Start 02/24/18 at 21:00; Stop 03/03/18 at 16:23; Status DC Clozapine (Clozaril) 100 mg HS PO ; Start 03/03/18 at 16:30; Stop 03/03/18 at 17 :06; Status DC Clozapine (Clozaril) 100 mg HS PO Last administered on 03/10/18at 20:52; Start 03/03/18 at 21:00; Stop 03/10/18 at 22:18; Status DC Sodium Chloride 500 ml @ 0 mls/hr 1X ONCE IV Last administered on 03/08/18at 13:00; Start 03/08/18 at 13:00; Stop 03/08/18 at 13:01; Status DC Sodium Chloride 500 ml @ 125 mls/hr 1X ONCE IV Last administered on at 14:30; Start 03/08/18 at 15:15; Stop 03/08/18 at 19:14; Status DC Clonazepam (KlonoPIN) 1 mg 1200,1700 PO Last administered on 03/21/18at 17:00; Start 03/10/18 at 12:00; Stop 03/21/18 at 18:15; Status DC Clonazepam (KlonoPIN) 0.5 mg DAILY PO Last administered on 03/21/18at 09:29; Start 03/10/18 at 09:00; Stop 03/21/18 at 17:54; Status DC Nystatin (Mycostatin) 5 ml QID SWSW Last administered on 03/18/18at 19:43; Start 03/10/18 at 13:00; Stop 03/19/18 at 16:01; Status DC Clozapine (Clozaril) 125 mg HS PO Last administered on 03/16/18at 20:13; Start 03/11/18 at 21:00; Stop 03/17/18 at 18:02; Status DC Cefpodoxime Proxetil (Vantin) 100 mg BID PO Last administered on 03/19/18at 08: 05; Start 03/17/18 at 21:00; Stop 03/19/18 at 16:01; Status DC Clozapine (Clozaril) 150 mg HS PO Last administered on 03/23/18at 17:57; Start 03/17/18 at 21:00; Stop 03/24/18 at 16:30; Status DC Doxycycline Hyclate (Vibra-Tab) 100 mg BID PO Last administered on 03/28/18 19 :31; Start 03/19/18 at 09:00; Stop 03/29/18 at 08:59 Doxycycline Hyclate (Vibra-Tab) 100 mg 1X ONCE PO ; Start 03/18/18 at 23:45; Stop 03/18/18 at 23:48; Status DC Lactobacillus Rhamnosus (Culturelle) 1 cap BID PO Last administered on 19:31; Start 03/19/18 at 21:00 Clonazepam (KlonoPIN) 1 mg 1200 PO Last administered on 03/22/18at 13:55; Start 03/22/18 at 12:00; Stop 03/24/18 at 11:59; Status DC Clonazepam (KlonoPIN) 1 mg QHS PO Last administered on 03/28/18 19:30; Start 03/21/18 at 21:00 Clonazepam (KlonoPIN) 0.5 mg 1200 PO Last administered on 03/28/18at 12:01; Start 03/24/18 at 12:00 Clozapine (Clozaril) 175 mg HS PO Last administered on 11/2/18at 19:31; Start 03/24/18 at 21:00 Potassium Chloride (Klor-Con) 20 meq STK-MED ONCE PO ; Start 03/26/18 at 09:33 ; Stop 03/26/18 at 09:34; Status DC Glucose (Insta-Glucose) 15 gm STK-MED ONCE .ROUTE ; Start 03/27/18 at 11:26; Stop 03/27/18 at 11:27; Status DC Active Scripts Active Reported Duoneb 0.5-3(2.5) Mg/3 Ml (Albuterol/Ipratropium) 3 Ml Ampul.neb 3 Ml NEB DAILY Zyprexa Zydis (Olanzapine) 5 Mg Tab.rapdis 5 Mg PO PRN Q2HR PRN Buspirone Hcl 10 Mg Tablet 10 Mg PO BID@1300,1700 Valproic Acid (Valproate Sodium) 250 Mg/5 Ml Solution 750 Mg PO TID Novolog Flexpen (Insulin Aspart) 100 Unit/1 Ml Insuln.pen 0-9 Unit SQ TIDWMEALS <70 follow hypoglycemic protocol 70-150 0units if eating/ 0 if not eating 151-200 4 units if eating/ 0 units if not eating 201-250 5 units if eating/ 3 units if not eating 251-300 7 units if eating/ 4 units if not eating 301-350 9 units if eating/ 5 units if not eating > 351 Call Physician for futher orders Trazodone Hcl 100 Mg Tablet 200 Mg PO PRN QHS PRN Trazodone Hcl 50 Mg Tablet 25 Mg PO TID@0900,1300,1700 Culturelle (Lactobacillus Rhamnosus Gg) 1 Each Cap.sprink 1 Each PO BID Haloperidol 5 Mg Tablet 7.5 Mg PO DAILY Tylenol (Acetaminophen) 325 Mg Tablet 650 Mg PO PRN Q6HRS PRN Buspirone Hcl 10 Mg Tablet 20 Mg PO DAILY Theophylline Anhydrous 200 Mg Tab.er.12h 200 Mg PO BID Metolazone 5 Mg Tablet 5 Mg PO DAILY Metformin Hcl 500 Mg Tablet 500 Mg PO BIDWMEALS Cardizem Tablet (Diltiazem Hcl) 120 Mg Tablet 120 Mg PO DAILY Amantadine (Amantadine Hcl) 100 Mg Tablet 100 Mg PO BID Actos (Pioglitazone Hcl) 15 Mg Tablet 15 Mg PO DAILY Mirtazapine 15 Mg Tablet 15 Mg PO QHS Haldol Decanoate 100 (Haloperidol Decanoate) 100 Mg/1 Ml Ampul 450 Mg IM Q4WK Klor-Con M20 (Potassium Chloride) 20 Meq Tab.er.prt 40 Meq PO BIDWMEALS Analgesic [place] (Methyl Salicylate/Menthol) 28 Gm Oint...g. 1 Guanaco TP PRN QID PRN Magnesium Oxide 400 Mg Tablet 400 Mg PO BID Milk Of Magnesia (Magnesium Hydroxide) 2,400 Mg/10 Ml Oral.susp 2,400 Mg PO PRN QHS PRN Maalox Advanced Suspension (Mag Hydrox/Aluminum Hyd/Simeth) 355 Ml Oral.susp 15 Ml PO PRN AFTMEALHC PRN D3-50 (Cholecalciferol (Vitamin D3)) 50,000 Unit Capsule 50,000 Unit PO QTH Clonazepam 1 Mg Tablet 1 Mg PO TID Furosemide 40 Mg Tablet 80 Mg PO BID92 Hold for SBP less than 100. After held dose, reassess in 2 hours. If SBP is above threshold, administer dose as ordered. If SBP is below threshold, contact provider for additional instructions. I have reviewed the current psychotropics carefully including drug interactions. Risk benefit ratio favors no change other than as noted in my dictated progress note. Diagnosis: Problems: (1) Depression (2) Schizoaffective disorder (3) Anxiety disorder (4) Impulse control disorder (5) Schizoaffective disorder, chronic condition with acute exacerbation KALIN STARKS MD Mar 28, 2018 23:15
[2018-03-29 06:12] VITALS: BP 114/68
[2018-03-29] MEDS: metOLazone 5 MG TABLET PO SCH (07:52)
[2018-03-29] MEDS: traZODone 50 MG TABLET. PO SCH ×3 (07:53→17:32)
[2018-03-29] MEDS: POTASSIUM CHLORIDE 20 MEQ TABLET.ER. PO SCH ×2 (07:53→17:00)
[2018-03-29] MEDS: FUROSEMIDE 80 MG TABLET PO SCH ×2 (07:53→14:00)
[2018-03-29] MEDS: metFORMIN 500 MG TABLET PO SCH ×2 (07:54→17:33)
[2018-03-29] MEDS: PIOGLITAZONE 15 MG TABLET. PO SCH (07:54)
[2018-03-29] MEDS: LACTOBACILLUS RHAMNOSUS GG 1 CAPSULE. PO SCH ×2 (07:54→19:28)
[2018-03-29] MEDS: busPIRone 10 MG TABLET. PO SCH ×3 (07:54→17:32)
[2018-03-29] MEDS: DIVALPROEX 125 MG CAP.SPRINK PO SCH ×4 (07:55→21:00)
[2018-03-29] MEDS: NYSTATIN TOPICAL POWDER 15GM BOTTLE. TP SCH ×2 (07:56→19:29)
[2018-03-29] MEDS: INSULIN LISPRO 300 UNITS/3 ML INSULN.PEN. SQ SCH ×3 (07:58→17:00)
[2018-03-29] MEDS: MAGNESIUM OXIDE 400 MG TABLET PO SCH ×2 (07:59→19:28)
[2018-03-29] MEDS: IPRATRPIUM/ALBUTEROL 0.5/2.5MG 3 ML NEBU. NEB SCH (10:47)
[2018-03-29] MEDS: clonazePAM 0.5 MG TABLET PO SCH (12:00)
[2018-03-29 16:03] VITALS: BP 123/60
[2018-03-29] MEDS: cloZAPine 100 MG TABLET PO SCH (19:28)
[2018-03-29] MEDS: MIRTAZAPINE 15 MG TABLET PO SCH (19:28)
[2018-03-29] MEDS: clonazePAM 1 MG TABLET PO SCH (19:28)
[2018-03-29] MEDS: traZODone 100 MG TABLET. PO SCH (19:28)
[2018-03-29] MEDS ORDERED: DIVALPROEX 125 MG CAP.SPRINK PO SCH (21:00)
--- NOTE | 2018-03-29 23:18 | PDOC ---
Exam Note: Napoleon Note: Please also refer to the separate dictated note~for this date of service dictated separately.~Patient seen individually. Discussed the patient with Nursing staff reviewed the chart.~Reviewed interim history and current functioning. Reviewed vital signs,~Labs/ Radiology~and current medications noted below. Continue current treatment with the changes noted in the dictated addendum note Assessment: Vital Signs: Vital Signs Date Time Temp Pulse Resp B/P (MAP) Pulse Ox O2 Delivery O2 Flow Rate FiO2 03/29/18 16:03 97.2 72 20 123/60 (81) 94 Room Air I&O Intake and Output 03/29/18 07:00 Intake Total 1400 ml Balance 1400 ml Intake Oral 1400 ml # Voids 4 # Bowel Movements 1 Labs: Laboratory Tests Test 03/29/18 07:27 03/29/18 11:44 03/29/18 16:47 03/29/18 19:07 Glucose (Fingerstick) 155 mg/dL (70-99) H 215 mg/dL (70-99) H 242 mg/dL (70-99) H 273 mg/dL (70-99) H Current Medications: Meds: Current Medications Lorazepam (Ativan) 2 mg 1X ONCE IM ; Start 02/10/18 at 04:00; Stop 02/10/18 at 04:01; Status DC Diphenhydramine HCl (Benadryl) 50 mg 1X ONCE IM ; Start 02/10/18 at 04:00; Stop 02/10/18 at 04:01; Status DC Ziprasidone (Geodon Im) 20 mg 1X ONCE IM ; Start 02/10/18 at 04:00; Stop at 04:01; Status DC Multivitamins/ Minerals 10 ml/ Folic Acid 1 mg/ Thiamine HCl 100 mg/Lactated Ringer's 1,011.1 ml @ 1,000 mls/ hr 1X ONCE IV ; Start 02/10/18 at 03:45; Stop 02/10/18 at 04:45; Status DC Magnesium Hydroxide (Milk Of Magnesia) 2,400 mg 1X ONCE PO ; Start 02/10/18 at 05:30; Stop 02/10/18 at 05:32; Status DC Potassium Chloride (KCl Oral Soln) 40 meq 1X ONCE PO ; Start 02/10/18 at 05:30 ; Stop 02/10/18 at 05:32; Status DC Acetaminophen (Tylenol) 650 mg PRN Q6HRS PRN PO PAIN / TEMP Last administered on 02/23/18at 12:43; Start 02/10/18 at 06:15 Multi-Ingredient Ointment (Analgesic [place]) 1 guanaco PRN QID PRN TP MUSCLE PAIN; Start 02/10/18 at 06:15 Al Hydroxide/Mg Hydroxide (Mylanta Plus Xs) 15 ml PRN AFTMEALHC PRN PO DYSPEPSIA; Start 02/10/18 at 06:15 Magnesium Hydroxide (Milk Of Magnesia) 2,400 mg PRN QHS PRN PO CONSTIPATION Last administered on 03/23/18at 22:18; Start 02/10/18 at 06:15 Influenza Virus Vaccine (Afluria Trivalent 2026-3064 Syringe) 0.5 ml ONCE ONCE VAX IM Last administered on 02/10/18 14:21; Start 02/10/18 at 09:00; Stop at 09:01; Status DC Vitamin D (Vitamin D3) 50,000 unit QTH PO Last administered on 03/27/18at 17:52 ; Start 02/13/18 at 16:00 Albuterol/ Ipratropium (Duoneb) 3 ml DAILY NEB Last administered on 03/29/18at 10:47; Start 02/10/18 at 09:00 Lactobacillus Rhamnosus (Culturelle) 1 cap BID PO Last administered on 09:03; Start 02/10/18 at 09:00; Stop 02/22/18 at 18:00; Status DC Potassium Chloride (Klor-Con) 40 meq BIDWMEALS PO Last administered on at 07:53; Start 02/10/18 at 08:00 Amantadine HCl (Symmetrel) 100 mg BID PO Last administered on 02/26/18 08:21; Start 02/10/18 at 09:00; Stop 02/26/18 at 11:24; Status DC Buspirone HCl (Buspar) 10 mg 1300,1700 PO Last administered on 03/29/18 17:32 ; Start 02/10/18 at 13:00 Buspirone HCl (Buspar) 20 mg DAILY PO Last administered on 03/29/18at 07:54; Start 02/10/18 at 09:00 Clonazepam (KlonoPIN) 1 mg TID PO Last administered on 03/09/18 13:53; Start 02/10/18 at 09:00; Stop 03/09/18 at 18:43; Status DC Diltiazem HCl (Cardizem 24hr Cd) 120 mg DAILY PO Last administered on 07:54; Start 02/10/18 at 09:00 Furosemide (Lasix) 80 mg BID92 PO Last administered on 03/29/18 14:00; Start 02/10/18 at 09:00 Haloperidol (Haldol) 7.5 mg DAILY PO Last administered on 02/19/18at 09:05; Start 02/10/18 at 09:00; Stop 02/19/18 at 18:16; Status DC Non-Formulary Medication (Haloperidol Decanoate (Haldol Decanoate 100)) 450 mg Q4WK IM ; Start 02/10/18 at 09:00; Stop 02/10/18 at 16:12; Status DC Non-Formulary Medication (Insulin Aspart (Novolog Flexpen)) see protocol TIDWMEALS SQ ; Start 02/10/18 at 08:00; Status UNV Magnesium Oxide (Magnesium Oxide) 400 mg BID PO Last administered on 03/29/18 19:28; Start 02/10/18 at 09:00 Metformin HCl (Glucophage) 500 mg BIDWMEALS PO Last administered on 03/29/18 17:33; Start 02/10/18 at 08:00 Metolazone (Zaroxolyn) 5 mg DAILY PO Last administered on 03/29/18 07:52; Start 02/10/18 at 09:00 Mirtazapine (Remeron) 15 mg QHS PO Last administered on 03/29/18 19:28; Start 02/10/18 at 21:00 Pioglitazone HCl (Actos) 15 mg DAILY PO Last administered on 03/29/18 07:54; Start 02/10/18 at 09:00 Trazodone HCl (Desyrel) 25 mg TID@0900,1300,1700 PO Last administered on 17:32; Start 02/10/18 at 09:00 Valproic Acid (Depakene) 750 mg TID PO Last administered on 02/17/18at 21:01; Start 02/10/18 at 09:00; Stop 02/18/18 at 08:06; Status DC Insulin Human Lispro (HumaLOG) 0-9 UNITS TIDWMEALS SQ Last administered on 03/29at 17:00; Start 02/10/18 at 08:00 Dextrose 12.5 gm PRN Q15MIN PRN IV SEE COMMENTS; Start 02/10/18 at 06:30 Olanzapine (ZyPREXA ZYDIS) 5 mg PRN Q2HR PRN PO PSYCHOSIS Last administered on 03/02/18at 12:27; Start 02/10/18 at 06:45 Haloperidol Decanoate (Haldol Decanoate Im Extended Release) 450 mg Q4WK IM Last administered on 03/10/18at 08:50; Start 03/10/18 at 09:00 Trazodone HCl (Desyrel) 25 mg STK-MED ONCE .ROUTE ; Start 02/10/18 at 09:00; Stop 02/11/18 at 10:03; Status DC Trazodone HCl (Desyrel) 25 mg STK-MED ONCE .ROUTE ; Start 02/10/18 at 09:00; Stop 02/11/18 at 10:03; Status DC Trazodone HCl (Desyrel) 25 mg STK-MED ONCE .ROUTE ; Start 02/10/18 at 09:00; Stop 02/11/18 at 10:03; Status DC Trazodone HCl (Desyrel) 25 mg STK-MED ONCE .ROUTE ; Start 02/11/18 at 09:00; Stop 02/11/18 at 10:04; Status DC Clozapine (Clozaril) 25 mg HS PO Last administered on 02/16/18at 21:13; Start at 21:00; Stop 02/17/18 at 17:40; Status DC Nystatin (Nystop) 1 guanaco BID TP Last administered on 03/29/18at 19:29; Start at 09:00 Trazodone HCl (Desyrel) 100 mg PRN QHS PRN PO INSOMNIA, MAY REPEAT X1; Start at 17:00; Stop 02/16/18 at 22:42; Status DC Trazodone HCl (Desyrel) 100 mg QHS PO Last administered on 03/29/18at 19:28; Start 02/16/18 at 23:00 Trazodone HCl (Desyrel) 100 mg PRN QHS PRN PO insomnia Last administered on at 19:46; Start 02/16/18 at 22:45 Clozapine (Clozaril) 50 mg HS PO Last administered on 02/23/18at 19:21; Start at 21:00; Stop 02/24/18 at 16:13; Status DC Divalproex Sodium (Depakote Sprinkles) 750 mg TID PO Last administered on at 14:00; Start 02/18/18 at 09:00; Stop 03/29/18 at 18:43; Status DC Haloperidol (Haldol) 5 mg DAILY PO Last administered on 03/03/18at 09:32; Start 02/20/18 at 09:00; Stop 03/03/18 at 16:23; Status DC Clozapine (Clozaril) 75 mg HS PO Last administered on 03/02/18at 19:49; Start 02/24/18 at 21:00; Stop 03/03/18 at 16:23; Status DC Clozapine (Clozaril) 100 mg HS PO ; Start 03/03/18 at 16:30; Stop 03/03/18 at 17 :06; Status DC Clozapine (Clozaril) 100 mg HS PO Last administered on 03/10/18at 20:52; Start 03/03/18 at 21:00; Stop 03/10/18 at 22:18; Status DC Sodium Chloride 500 ml @ 0 mls/hr 1X ONCE IV Last administered on 03/08/18at 13:00; Start 03/08/18 at 13:00; Stop 03/08/18 at 13:01; Status DC Sodium Chloride 500 ml @ 125 mls/hr 1X ONCE IV Last administered on at 14:30; Start 03/08/18 at 15:15; Stop 03/08/18 at 19:14; Status DC Clonazepam (KlonoPIN) 1 mg 1200,1700 PO Last administered on 03/21/18at 17:00; Start 03/10/18 at 12:00; Stop 03/21/18 at 18:15; Status DC Clonazepam (KlonoPIN) 0.5 mg DAILY PO Last administered on 03/21/18at 09:29; Start 03/10/18 at 09:00; Stop 03/21/18 at 17:54; Status DC Nystatin (Mycostatin) 5 ml QID SWSW Last administered on 03/18/18at 19:43; Start 03/10/18 at 13:00; Stop 03/19/18 at 16:01; Status DC Clozapine (Clozaril) 125 mg HS PO Last administered on 03/16/18at 20:13; Start 03/11/18 at 21:00; Stop 03/17/18 at 18:02; Status DC Cefpodoxime Proxetil (Vantin) 100 mg BID PO Last administered on 03/19/18at 08: 05; Start 03/17/18 at 21:00; Stop 03/19/18 at 16:01; Status DC Clozapine (Clozaril) 150 mg HS PO Last administered on 03/23/18at 17:57; Start 03/17/18 at 21:00; Stop 03/24/18 at 16:30; Status DC Doxycycline Hyclate (Vibra-Tab) 100 mg BID PO Last administered on 03/28/18at 19 :31; Start 03/19/18 at 09:00; Stop 03/29/18 at 09:00; Status DC Doxycycline Hyclate (Vibra-Tab) 100 mg 1X ONCE PO ; Start 03/18/18 at 23:45; Stop 03/18/18 at 23:48; Status DC Lactobacillus Rhamnosus (Culturelle) 1 cap BID PO Last administered on at 19:28; Start 03/19/18 at 21:00 Clonazepam (KlonoPIN) 1 mg 1200 PO Last administered on 03/22/18at 13:55; Start 03/22/18 at 12:00; Stop 03/24/18 at 11:59; Status DC Clonazepam (KlonoPIN) 1 mg QHS PO Last administered on 03/29/18at 19:28; Start 03/21/18 at 21:00 Clonazepam (KlonoPIN) 0.5 mg 1200 PO Last administered on 03/29/18at 12:00; Start 10/29/18 at 12:00 Clozapine (Clozaril) 175 mg HS PO Last administered on 03/29/18at 19:28; Start 03/24/18 at 21:00 Potassium Chloride (Klor-Con) 20 meq STK-MED ONCE PO ; Start 03/26/18 at 09:33 ; Stop 03/26/18 at 09:34; Status DC Glucose (Insta-Glucose) 15 gm STK-MED ONCE .ROUTE ; Start 03/27/18 at 11:26; Stop 03/27/18 at 11:27; Status DC Divalproex Sodium (Depakote Sprinkles) 750 mg DAILY08 PO ; Start 03/30/18 at 08: 00 Divalproex Sodium (Depakote Sprinkles) 250 mg HS PO ; Start 03/29/18 at 21:00; Stop 03/29/18 at 21:00; Status DC Divalproex Sodium (Depakote Sprinkles) 1,500 mg HS PO ; Start 03/30/18 at 21:00 Divalproex Sodium (Depakote Sprinkles) 750 mg HS PO Last administered on at 19:51; Start 03/29/18 at 19:34; Stop 03/29/18 at 23:00; Status DC Active Scripts Active Reported Duoneb 0.5-3(2.5) Mg/3 Ml (Albuterol/Ipratropium) 3 Ml Ampul.neb 3 Ml NEB DAILY Zyprexa Zydis (Olanzapine) 5 Mg Tab.rapdis 5 Mg PO PRN Q2HR PRN Buspirone Hcl 10 Mg Tablet 10 Mg PO BID@1300,1700 Valproic Acid (Valproate Sodium) 250 Mg/5 Ml Solution 750 Mg PO TID Novolog Flexpen (Insulin Aspart) 100 Unit/1 Ml Insuln.pen 0-9 Unit SQ TIDWMEALS <70 follow hypoglycemic protocol 70-150 0units if eating/ 0 if not eating 151-200 4 units if eating/ 0 units if not eating 201-250 5 units if eating/ 3 units if not eating 251-300 7 units if eating/ 4 units if not eating 301-350 9 units if eating/ 5 units if not eating > 351 Call Physician for futher orders Trazodone Hcl 100 Mg Tablet 200 Mg PO PRN QHS PRN Trazodone Hcl 50 Mg Tablet 25 Mg PO TID@0900,1300,1700 Culturelle (Lactobacillus Rhamnosus Gg) 1 Each Cap.sprink 1 Each PO BID Haloperidol 5 Mg Tablet 7.5 Mg PO DAILY Tylenol (Acetaminophen) 325 Mg Tablet 650 Mg PO PRN Q6HRS PRN Buspirone Hcl 10 Mg Tablet 20 Mg PO DAILY Theophylline Anhydrous 200 Mg Tab.er.12h 200 Mg PO BID Metolazone 5 Mg Tablet 5 Mg PO DAILY Metformin Hcl 500 Mg Tablet 500 Mg PO BIDWMEALS Cardizem Tablet (Diltiazem Hcl) 120 Mg Tablet 120 Mg PO DAILY Amantadine (Amantadine Hcl) 100 Mg Tablet 100 Mg PO BID Actos (Pioglitazone Hcl) 15 Mg Tablet 15 Mg PO DAILY Mirtazapine 15 Mg Tablet 15 Mg PO QHS Haldol Decanoate 100 (Haloperidol Decanoate) 100 Mg/1 Ml Ampul 450 Mg IM Q4WK Klor-Con M20 (Potassium Chloride) 20 Meq Tab.er.prt 40 Meq PO BIDWMEALS Analgesic [place] (Methyl Salicylate/Menthol) 28 Gm Oint...g. 1 Guanaco TP PRN QID PRN Magnesium Oxide 400 Mg Tablet 400 Mg PO BID Milk Of Magnesia (Magnesium Hydroxide) 2,400 Mg/10 Ml Oral.susp 2,400 Mg PO PRN QHS PRN Maalox Advanced Suspension (Mag Hydrox/Aluminum Hyd/Simeth) 355 Ml Oral.susp 15 Ml PO PRN AFTMEALHC PRN D3-50 (Cholecalciferol (Vitamin D3)) 50,000 Unit Capsule 50,000 Unit PO QTH Clonazepam 1 Mg Tablet 1 Mg PO TID Furosemide 40 Mg Tablet 80 Mg PO BID92 Hold for SBP less than 100. After held dose, reassess in 2 hours. If SBP is above threshold, administer dose as ordered. If SBP is below threshold, contact provider for additional instructions. I have reviewed the current psychotropics carefully including drug interactions. Risk benefit ratio favors no change other than as noted in my dictated progress note. Diagnosis: Problems: (1) Depression (2) Schizoaffective disorder (3) Anxiety disorder (4) Impulse control disorder (5) Schizoaffective disorder, chronic condition with acute exacerbation KALIN STARKS MD Mar 29, 2018 23:18
[2018-03-30 06:18] VITALS: BP 140/85
[2018-03-30] MEDS: INSULIN LISPRO 300 UNITS/3 ML INSULN.PEN. SQ SCH ×3 (08:00→16:49)
[2018-03-30] MEDS ORDERED: DIVALPROEX 125 MG CAP.SPRINK PO SCH ×2 (08:00→21:00)
[2018-03-30] MEDS: busPIRone 10 MG TABLET. PO SCH ×2 (08:06→17:44)
[2018-03-30] MEDS: traZODone 50 MG TABLET. PO SCH ×3 (08:06→16:51)
[2018-03-30] MEDS: metFORMIN 500 MG TABLET PO SCH ×2 (08:06→17:45)
[2018-03-30] MEDS: NYSTATIN TOPICAL POWDER 15GM BOTTLE. TP SCH ×2 (08:06→19:53)
[2018-03-30] MEDS: MAGNESIUM OXIDE 400 MG TABLET PO SCH ×2 (08:06→17:45)
[2018-03-30] MEDS: LACTOBACILLUS RHAMNOSUS GG 1 CAPSULE. PO SCH (08:06)
[2018-03-30] MEDS: POTASSIUM CHLORIDE 20 MEQ TABLET.ER. PO SCH ×2 (08:07→17:45)
[2018-03-30] MEDS: PIOGLITAZONE 15 MG TABLET. PO SCH (08:07)
[2018-03-30] MEDS: metOLazone 5 MG TABLET PO SCH (08:07)
[2018-03-30] MEDS: FUROSEMIDE 80 MG TABLET PO SCH ×2 (08:07→17:45)
[2018-03-30] MEDS ORDERED: DIVALPROEX ER 250 MG TAB.ER.24H. PO SCH (09:00)
[2018-03-30] MEDS: IPRATRPIUM/ALBUTEROL 0.5/2.5MG 3 ML NEBU. NEB SCH (10:13)
[2018-03-30 16:02] VITALS: BP 152/76
[2018-03-30] MEDS: cloZAPine 100 MG TABLET PO SCH (17:44)
[2018-03-30] MEDS: clonazePAM 1 MG TABLET PO SCH (17:45)
[2018-03-30] MEDS: traZODone 100 MG TABLET. PO SCH (17:45)
[2018-03-30] MEDS: MIRTAZAPINE 15 MG TABLET PO SCH (17:45)
[2018-03-30] MEDS ORDERED: DIVALPROEX ER 500 MG TAB.ER.24H PO SCH (21:00)
[2018-03-30 21:31] LABS: BASO # 0.1 x10^3/uL (0.0-0.2); BASO % 1 % (0-3); EOS % 0 % (0-3); HEMATOCRIT 37.4 % (36.0-47.0); HEMOGLOBIN 12.1 g/dL (12.0-15.5); LYMPH # 2.3 x10^3/uL (1.0-4.8); LYMPH % 26 % (24-48); MEAN CORPUSCULAR HEMOGLOBIN 28 pg (25-35); MEAN CORPUSCULAR HGB CONC 32 g/dL (31-37); MEAN CORPUSCULAR VOLUME 88 fL (79-100); MONO # 0.9 x10^3/uL (0.0-1.1); MONO % 10 % (0-9); NEUT # 5.4 x10^3uL (1.8-7.7); NEUT % 62 % (31-73); PLATELET COUNT 278 x10^3/uL (140-400); RED BLOOD COUNT 4.24 x10^6/uL (3.50-5.40); RED CELL DISTRIBUTION WIDTH 16.6 % (11.5-14.5); WHITE BLOOD COUNT 8.7 x10^3/uL (4.0-11.0)
--- NOTE | 2018-03-30 21:39 | PN ---
DATE: 03/28/2018 PSYCHIATRIC PROGRESS NOTE This late entry of 03/28/2018 covers elements not covered in my initial note. SUBJECTIVE: I met with the patient in the evening. The patient slept 8 hours previous evening. She continues to be somewhat labile, loud at times, but much less psychotic, somewhat more compliant with her psychotropics, so she just wants administered twice a day and we will adjust these. REVIEW OF SYSTEMS: Ambulation impaired with walker. No CV, , pulmonary, eye, ENT system symptoms on review. MENTAL STATUS EXAM: Oriented to herself and situation. Speech, often responses monosyllabic, coherent, abstraction fair, computation impaired, language function intact. Attention span short. She is less psychotic. No suicidal or homicidal ideation. LABORATORY DATA: Reviewed. IMPRESSION: Schizoaffective disorder, bipolar type, mixed with psychotic features, in partial remission. Rest unchanged. PLAN: No change from initial note. Valproic acid level therapeutic at 65. Clozaril is being adjusted to a reasonable dosage. KALIN STARKS MD DR: [email or web address]/[email or web address] JOB#: [id number] / [id number]
[2018-03-30 21:40] LABS: ALBUMIN 2.8 g/dL (3.4-5.0); ALBUMIN/GLOBULIN RATIO 0.5 (1.0-1.7); CALCIUM 9.5 mg/dL (8.5-10.1); CREATININE 1.5 mg/dL (0.6-1.0); GFR 42.4; POTASSIUM 3.2 mmol/L (3.5-5.1); TOTAL BILIRUBIN 0.2 mg/dL (0.2-1.0); TOTAL PROTEIN 8.2 g/dL (6.4-8.2)
--- NOTE | 2018-03-30 23:19 | PDOC ---
Exam Note: Napoleon Note: Please also refer to the separate dictated note~for this date of service dictated separately.~Patient seen individually. Discussed the patient with Nursing staff reviewed the chart.~Reviewed interim history and current functioning. Reviewed vital signs,~Labs/ Radiology~and current medications noted below. Continue current treatment with the changes noted in the dictated addendum note Assessment: Vital Signs: Vital Signs Date Time Temp Pulse Resp B/P (MAP) Pulse Ox O2 Delivery O2 Flow Rate FiO2 03/30/18 16:02 98.0 94 20 152/76 (101) 94 Room Air I&O Intake and Output 03/30/18 07:00 Intake Total 1320 ml Balance 1320 ml Intake Oral 1320 ml Labs: Laboratory Tests Test 03/30/18 07:36 03/30/18 12:55 03/30/18 16:48 03/30/18 19:25 Glucose (Fingerstick) 160 mg/dL (70-99) H 311 mg/dL (70-99) H 121 mg/dL (70-99) H 248 mg/dL (70-99) H Test 03/30/18 21:20 White Blood Count 8.7 x10^3/uL (4.0-11.0) Red Blood Count 4.24 x10^6/uL (3.50-5.40) Hemoglobin 12.1 g/dL (12.0-15.5) Hematocrit 37.4 % (36.0-47.0) Mean Corpuscular Volume 88 fL (79-100) Mean Corpuscular Hemoglobin 28 pg (25-35) Mean Corpuscular Hemoglobin Concent 32 g/dL (31-37) Red Cell Distribution Width 16.6 % (11.5-14.5) H Platelet Count 278 x10^3/uL (140-400) Neutrophils (%) (Auto) 62 % (31-73) Lymphocytes (%) (Auto) 26 % (24-48) Monocytes (%) (Auto) 10 % (0-9) H Eosinophils (%) (Auto) 0 % (0-3) Basophils (%) (Auto) 1 % (0-3) Neutrophils # (Auto) 5.4 x10^3uL (1.8-7.7) Lymphocytes # (Auto) 2.3 x10^3/uL (1.0-4.8) Monocytes # (Auto) 0.9 x10^3/uL (0.0-1.1) Eosinophils # (Auto) 0.0 x10^3/uL (0.0-0.7) Basophils # (Auto) 0.1 x10^3/uL (0.0-0.2) Sodium Level 137 mmol/L (136-145) Potassium Level 3.2 mmol/L (3.5-5.1) L Chloride Level 92 mmol/L (98-107) L Carbon Dioxide Level 42 mmol/L (21-32) H Anion Gap 3 (6-14) L Blood Urea Nitrogen 38 mg/dL (7-20) H Creatinine 1.5 mg/dL (0.6-1.0) H Estimated GFR (Cockcroft-Gault) 42.4 BUN/Creatinine Ratio 25 (6-20) H Glucose Level 211 mg/dL (70-99) H Calcium Level 9.5 mg/dL (8.5-10.1) Total Bilirubin 0.2 mg/dL (0.2-1.0) Aspartate Amino Transferase (AST) 12 U/L (15-37) L Alanine Aminotransferase (ALT) 18 U/L (14-59) Alkaline Phosphatase 116 U/L (46-116) Creatine Kinase 46 U/L (26-192) Total Protein 8.2 g/dL (6.4-8.2) Albumin 2.8 g/dL (3.4-5.0) L Albumin/Globulin Ratio 0.5 (1.0-1.7) L Current Medications: Meds: Current Medications Lorazepam (Ativan) 2 mg 1X ONCE IM ; Start 02/10/18 at 04:00; Stop 02/10/18 at 04:01; Status DC Diphenhydramine HCl (Benadryl) 50 mg 1X ONCE IM ; Start 02/10/18 at 04:00; Stop 02/10/18 at 04:01; Status DC Ziprasidone (Geodon Im) 20 mg 1X ONCE IM ; Start 02/10/18 at 04:00; Stop at 04:01; Status DC Multivitamins/ Minerals 10 ml/ Folic Acid 1 mg/ Thiamine HCl 100 mg/Lactated Ringer's 1,011.1 ml @ 1,000 mls/ hr 1X ONCE IV ; Start 02/10/18 at 03:45; Stop 02/10/18 at 04:45; Status DC Magnesium Hydroxide (Milk Of Magnesia) 2,400 mg 1X ONCE PO ; Start 02/10/18 at 05:30; Stop 02/10/18 at 05:32; Status DC Potassium Chloride (KCl Oral Soln) 40 meq 1X ONCE PO ; Start 02/10/18 at 05:30 ; Stop 02/10/18 at 05:32; Status DC Acetaminophen (Tylenol) 650 mg PRN Q6HRS PRN PO PAIN / TEMP Last administered on 02/23/18at 12:43; Start 02/10/18 at 06:15 Multi-Ingredient Ointment (Analgesic [place]) 1 guanaco PRN QID PRN TP MUSCLE PAIN; Start 02/10/18 at 06:15 Al Hydroxide/Mg Hydroxide (Mylanta Plus Xs) 15 ml PRN AFTMEALHC PRN PO DYSPEPSIA; Start 02/10/18 at 06:15 Magnesium Hydroxide (Milk Of Magnesia) 2,400 mg PRN QHS PRN PO CONSTIPATION Last administered on 03/23/18at 22:18; Start 02/10/18 at 06:15 Influenza Virus Vaccine (Afluria Trivalent [id number] Syringe) 0.5 ml ONCE ONCE VAX IM Last administered on 02/10/18at 14:21; Start 02/10/18 at 09:00; Stop at 09:01; Status DC Vitamin D (Vitamin D3) 50,000 unit QTH PO Last administered on 03/27/18at 17:52 ; Start 02/13/18 at 16:00 Albuterol/ Ipratropium (Duoneb) 3 ml DAILY NEB Last administered on 03/30/18at 10:13; Start 02/10/18 at 09:00 Lactobacillus Rhamnosus (Culturelle) 1 cap BID PO Last administered on at 09:03; Start 02/10/18 at 09:00; Stop 02/22/18 at 18:00; Status DC Potassium Chloride (Klor-Con) 40 meq BIDWMEALS PO Last administered on at 08:07; Start 02/10/18 at 08:00; Stop 03/30/18 at 09:40; Status DC Amantadine HCl (Symmetrel) 100 mg BID PO Last administered on 02/26/18 08:21; Start 02/10/18 at 09:00; Stop 02/26/18 at 11:24; Status DC Buspirone HCl (Buspar) 10 mg 1300,1700 PO Last administered on 03/29/18at 17:32 ; Start 02/10/18 at 13:00; Stop 03/30/18 at 09:40; Status DC Buspirone HCl (Buspar) 20 mg DAILY PO Last administered on 03/30/18at 08:06; Start 02/10/18 at 09:00; Stop 03/30/18 at 09:40; Status DC Clonazepam (KlonoPIN) 1 mg TID PO Last administered on 03/09/18at 13:53; Start 02/10/18 at 09:00; Stop 03/09/18 at 18:43; Status DC Diltiazem HCl (Cardizem 24hr Cd) 120 mg DAILY PO Last administered on at 08:07; Start 02/10/18 at 09:00 Furosemide (Lasix) 80 mg BID92 PO Last administered on 03/30/18 08:07; Start 02/10/18 at 09:00; Stop 03/30/18 at 09:40; Status DC Haloperidol (Haldol) 7.5 mg DAILY PO Last administered on 02/19/18at 09:05; Start 02/10/18 at 09:00; Stop 02/19/18 at 18:16; Status DC Non-Formulary Medication (Haloperidol Decanoate (Haldol Decanoate 100)) 450 mg Q4WK IM ; Start 02/10/18 at 09:00; Stop 02/10/18 at 16:12; Status DC Non-Formulary Medication (Insulin Aspart (Novolog Flexpen)) see protocol TIDWMEALS SQ ; Start 02/10/18 at 08:00; Status UNV Magnesium Oxide (Magnesium Oxide) 400 mg BID PO Last administered on 03/30/18at 17:45; Start 02/10/18 at 09:00 Metformin HCl (Glucophage) 500 mg BIDWMEALS PO Last administered on 03/30/18at 08:06; Start 02/10/18 at 08:00; Stop 03/30/18 at 09:40; Status DC Metolazone (Zaroxolyn) 5 mg DAILY PO Last administered on 03/30/18at 08:07; Start 02/10/18 at 09:00 Mirtazapine (Remeron) 15 mg QHS PO Last administered on 03/30/18at 17:45; Start 02/10/18 at 21:00 Pioglitazone HCl (Actos) 15 mg DAILY PO Last administered on 03/30/18at 08:07; Start 02/10/18 at 09:00 Trazodone HCl (Desyrel) 25 mg TID@0900,1300,1700 PO Last administered on at 16:51; Start 02/10/18 at 09:00 Valproic Acid (Depakene) 750 mg TID PO Last administered on 02/17/18at 21:01; Start 02/10/18 at 09:00; Stop 02/18/18 at 08:06; Status DC Insulin Human Lispro (HumaLOG) 0-9 UNITS TIDWMEALS SQ Last administered on 03/30at 13:17; Start 02/10/18 at 08:00 Dextrose 12.5 gm PRN Q15MIN PRN IV SEE COMMENTS; Start 02/10/18 at 06:30 Olanzapine (ZyPREXA ZYDIS) 5 mg PRN Q2HR PRN PO PSYCHOSIS Last administered on 03/02/18at 12:27; Start 02/10/18 at 06:45 Haloperidol Decanoate (Haldol Decanoate Im Extended Release) 450 mg Q4WK IM Last administered on 03/10/18at 08:50; Start 03/10/18 at 09:00 Trazodone HCl (Desyrel) 25 mg STK-MED ONCE .ROUTE ; Start 02/10/18 at 09:00; Stop 02/11/18 at 10:03; Status DC Trazodone HCl (Desyrel) 25 mg STK-MED ONCE .ROUTE ; Start 02/10/18 at 09:00; Stop 02/11/18 at 10:03; Status DC Trazodone HCl (Desyrel) 25 mg STK-MED ONCE .ROUTE ; Start 02/10/18 at 09:00; Stop 02/11/18 at 10:03; Status DC Trazodone HCl (Desyrel) 25 mg STK-MED ONCE .ROUTE ; Start 02/11/18 at 09:00; Stop 02/11/18 at 10:04; Status DC Clozapine (Clozaril) 25 mg HS PO Last administered on 02/16/18at 21:13; Start at 21:00; Stop 02/17/18 at 17:40; Status DC Nystatin (Nystop) 1 guanaco BID TP Last administered on 03/30/18at 19:53; Start at 09:00 Trazodone HCl (Desyrel) 100 mg PRN QHS PRN PO INSOMNIA, MAY REPEAT X1; Start at 17:00; Stop 02/16/18 at 22:42; Status DC Trazodone HCl (Desyrel) 100 mg QHS PO Last administered on 03/30/18at 17:45; Start 02/16/18 at 23:00 Trazodone HCl (Desyrel) 100 mg PRN QHS PRN PO insomnia Last administered on at 19:46; Start 02/16/18 at 22:45 Clozapine (Clozaril) 50 mg HS PO Last administered on 02/23/18at 19:21; Start at 21:00; Stop 02/24/18 at 16:13; Status DC Divalproex Sodium (Depakote Sprinkles) 750 mg TID PO Last administered on at 14:00; Start 02/18/18 at 09:00; Stop 03/29/18 at 18:43; Status DC Haloperidol (Haldol) 5 mg DAILY PO Last administered on 03/03/18at 09:32; Start 02/20/18 at 09:00; Stop 03/03/18 at 16:23; Status DC Clozapine (Clozaril) 75 mg HS PO Last administered on 03/02/18at 19:49; Start 02/24/18 at 21:00; Stop 03/03/18 at 16:23; Status DC Clozapine (Clozaril) 100 mg HS PO ; Start 03/03/18 at 16:30; Stop 03/03/18 at 17 :06; Status DC Clozapine (Clozaril) 100 mg HS PO Last administered on 03/10/18at 20:52; Start 03/03/18 at 21:00; Stop 03/10/18 at 22:18; Status DC Sodium Chloride 500 ml @ 0 mls/hr 1X ONCE IV Last administered on 03/08/18at 13:00; Start 03/08/18 at 13:00; Stop 03/08/18 at 13:01; Status DC Sodium Chloride 500 ml @ 125 mls/hr 1X ONCE IV Last administered on at 14:30; Start 03/08/18 at 15:15; Stop 03/08/18 at 19:14; Status DC Clonazepam (KlonoPIN) 1 mg 1200,1700 PO Last administered on 03/21/18at 17:00; Start 03/10/18 at 12:00; Stop 03/21/18 at 18:15; Status DC Clonazepam (KlonoPIN) 0.5 mg DAILY PO Last administered on 03/21/18at 09:29; Start 03/10/18 at 09:00; Stop 03/21/18 at 17:54; Status DC Nystatin (Mycostatin) 5 ml QID SWSW Last administered on 03/18/18at 19:43; Start 03/10/18 at 13:00; Stop 03/19/18 at 16:01; Status DC Clozapine (Clozaril) 125 mg HS PO Last administered on 03/16/18at 20:13; Start 03/11/18 at 21:00; Stop 03/17/18 at 18:02; Status DC Cefpodoxime Proxetil (Vantin) 100 mg BID PO Last administered on 03/19/18at 08: 05; Start 03/17/18 at 21:00; Stop 03/19/18 at 16:01; Status DC Clozapine (Clozaril) 150 mg HS PO Last administered on 03/23/18at 17:57; Start 03/17/18 at 21:00; Stop 03/24/18 at 16:30; Status DC Doxycycline Hyclate (Vibra-Tab) 100 mg BID PO Last administered on 03/28/18at 19 :31; Start 03/19/18 at 09:00; Stop 03/29/18 at 09:00; Status DC Doxycycline Hyclate (Vibra-Tab) 100 mg 1X ONCE PO ; Start 03/18/18 at 23:45; Stop 03/18/18 at 23:48; Status DC Lactobacillus Rhamnosus (Culturelle) 1 cap BID PO Last administered on at 08:06; Start 03/19/18 at 21:00; Stop 03/30/18 at 09:40; Status DC Clonazepam (KlonoPIN) 1 mg 1200 PO Last administered on 03/22/18at 13:55; Start 03/22/18 at 12:00; Stop 03/24/18 at 11:59; Status DC Clonazepam (KlonoPIN) 1 mg QHS PO Last administered on 03/30/18at 17:45; Start 03/21/18 at 21:00 Clonazepam (KlonoPIN) 0.5 mg 1200 PO Last administered on 03/29/18at 12:00; Start 03/24/18 at 12:00; Stop 03/30/18 at 09:40; Status DC Clozapine (Clozaril) 175 mg HS PO Last administered on 03/30/18at 17:44; Start 03/24/18 at 21:00 Potassium Chloride (Klor-Con) 20 meq STK-MED ONCE PO ; Start 03/26/18 at 09:33 ; Stop 03/26/18 at 09:34; Status DC Glucose (Insta-Glucose) 15 gm STK-MED ONCE .ROUTE ; Start 03/27/18 at 11:26; Stop 03/27/18 at 11:27; Status DC Divalproex Sodium (Depakote Sprinkles) 750 mg DAILY08 PO ; Start 03/30/18 at 08: 00; Stop 03/30/18 at 08:01; Status DC Divalproex Sodium (Depakote Sprinkles) 250 mg HS PO ; Start 03/29/18 at 21:00; Stop 03/29/18 at 21:00; Status DC Divalproex Sodium (Depakote Sprinkles) 1,500 mg HS PO ; Start 03/30/18 at 21:00 ; Stop 03/30/18 at 21:00; Status DC Divalproex Sodium (Depakote Sprinkles) 750 mg HS PO Last administered on at 19:51; Start 03/29/18 at 19:34; Stop 03/29/18 at 23:00; Status DC Divalproex Sodium (Depakote Er) 250 mg DAILY PO Last administered on 03/30/18at 08:09; Start 03/30/18 at 09:00; Stop 03/30/18 at 09:40; Status DC Divalproex Sodium (Depakote Er) 1,500 mg QHS PO Last administered on 03/30/18at 17:44; Start 03/30/18 at 21:00 Buspirone HCl (Buspar) 20 mg BID PO Last administered on 03/30/18at 17:44; Start 03/30/18 at 21:00 Clonazepam (KlonoPIN) 0.5 mg DAILY PO ; Start 03/31/18 at 09:00 Divalproex Sodium (Depakote Er) 750 mg DAILY PO ; Start 03/31/18 at 09:00 Furosemide (Lasix) 80 mg BID PO Last administered on 03/30/18at 17:45; Start at 21:00 Metformin HCl (Glucophage) 500 mg BID PO Last administered on 03/30/18at 17:45; Start 03/30/18 at 21:00 Potassium Chloride (Klor-Con) 40 meq BID PO ; Start 03/30/18 at 21:00 Active Scripts Active Reported Duoneb 0.5-3(2.5) Mg/3 Ml (Albuterol/Ipratropium) 3 Ml Ampul.neb 3 Ml NEB DAILY Zyprexa Zydis (Olanzapine) 5 Mg Tab.rapdis 5 Mg PO PRN Q2HR PRN Buspirone Hcl 10 Mg Tablet 10 Mg PO BID@1300,1700 Valproic Acid (Valproate Sodium) 250 Mg/5 Ml Solution 750 Mg PO TID Novolog Flexpen (Insulin Aspart) 100 Unit/1 Ml Insuln.pen 0-9 Unit SQ TIDWMEALS <70 follow hypoglycemic protocol 70-150 0units if eating/ 0 if not eating 151-200 4 units if eating/ 0 units if not eating 201-250 5 units if eating/ 3 units if not eating 251-300 7 units if eating/ 4 units if not eating 301-350 9 units if eating/ 5 units if not eating > 351 Call Physician for futher orders Trazodone Hcl 100 Mg Tablet 200 Mg PO PRN QHS PRN Trazodone Hcl 50 Mg Tablet 25 Mg PO TID@0900,1300,1700 Culturelle (Lactobacillus Rhamnosus Gg) 1 Each Cap.sprink 1 Each PO BID Haloperidol 5 Mg Tablet 7.5 Mg PO DAILY Tylenol (Acetaminophen) 325 Mg Tablet 650 Mg PO PRN Q6HRS PRN Buspirone Hcl 10 Mg Tablet 20 Mg PO DAILY Theophylline Anhydrous 200 Mg Tab.er.12h 200 Mg PO BID Metolazone 5 Mg Tablet 5 Mg PO DAILY Metformin Hcl 500 Mg Tablet 500 Mg PO BIDWMEALS Cardizem Tablet (Diltiazem Hcl) 120 Mg Tablet 120 Mg PO DAILY Amantadine (Amantadine Hcl) 100 Mg Tablet 100 Mg PO BID Actos (Pioglitazone Hcl) 15 Mg Tablet 15 Mg PO DAILY Mirtazapine 15 Mg Tablet 15 Mg PO QHS Haldol Decanoate 100 (Haloperidol Decanoate) 100 Mg/1 Ml Ampul 450 Mg IM Q4WK Klor-Con M20 (Potassium Chloride) 20 Meq Tab.er.prt 40 Meq PO BIDWMEALS Analgesic [place] (Methyl Salicylate/Menthol) 28 Gm Oint...g. 1 Guanaco TP PRN QID PRN Magnesium Oxide 400 Mg Tablet 400 Mg PO BID Milk Of Magnesia (Magnesium Hydroxide) 2,400 Mg/10 Ml Oral.susp 2,400 Mg PO PRN QHS PRN Maalox Advanced Suspension (Mag Hydrox/Aluminum Hyd/Simeth) 355 Ml Oral.susp 15 Ml PO PRN AFTMEALHC PRN D3-50 (Cholecalciferol (Vitamin D3)) 50,000 Unit Capsule 50,000 Unit PO QTH Clonazepam 1 Mg Tablet 1 Mg PO TID Furosemide 40 Mg Tablet 80 Mg PO BID92 Hold for SBP less than 100. After held dose, reassess in 2 hours. If SBP is above threshold, administer dose as ordered. If SBP is below threshold, contact provider for additional instructions. I have reviewed the current psychotropics carefully including drug interactions. Risk benefit ratio favors no change other than as noted in my dictated progress note. Diagnosis: Problems: (1) Depression (2) Schizoaffective disorder (3) Anxiety disorder (4) Impulse control disorder (5) Schizoaffective disorder, chronic condition with acute exacerbation KALIN STARKS MD Mar 30, 2018 23:19
[2018-03-31 06:28] VITALS: BP 100/56
--- NOTE | 2018-03-31 07:41 | RAD ---
Portable chest, 03/31/2018: HISTORY: Wheezing, productive cough Comparison is made to a study from 02/10/2018. The heart is mildly enlarged. There is calcific plaquing of the aorta. The pulmonary vascularity is at the upper limits of normal. There is minimal atelectasis/infiltrate in the left base laterally, partially obscuring the hemidiaphragm. The lungs are otherwise clear. No pleural fluid is evident. IMPRESSION: 1. Cardiomegaly with borderline vascular congestion. 2. Minimal left basilar atelectasis/infiltrate. Electronically signed by: Aramis Orellana MD (03/31/2018 7:38 AM) [facility]
[2018-03-31] MEDS: INSULIN LISPRO 300 UNITS/3 ML INSULN.PEN. SQ SCH ×2 (08:00→08:19)
[2018-03-31] MEDS: PIOGLITAZONE 15 MG TABLET. PO SCH ×2 (08:11→09:00)
[2018-03-31] MEDS: clonazePAM 0.5 MG TABLET PO SCH ×2 (08:12→09:00)
[2018-03-31] MEDS: busPIRone 10 MG TABLET. PO SCH ×2 (08:12→09:00)
[2018-03-31] MEDS: DIVALPROEX ER 250 MG TAB.ER.24H. PO SCH ×2 (08:12→09:00)
[2018-03-31] MEDS: FUROSEMIDE 80 MG TABLET PO SCH ×2 (08:13→09:00)
[2018-03-31] MEDS: MAGNESIUM OXIDE 400 MG TABLET PO SCH ×2 (08:13→09:00)
[2018-03-31] MEDS: metOLazone 5 MG TABLET PO SCH ×2 (08:13→09:00)
[2018-03-31] MEDS: POTASSIUM CHLORIDE 20 MEQ TABLET.ER. PO SCH ×2 (08:14→09:00)
[2018-03-31] MEDS: NYSTATIN TOPICAL POWDER 15GM BOTTLE. TP SCH ×2 (08:14→09:00)
[2018-03-31] MEDS: traZODone 50 MG TABLET. PO SCH ×2 (08:15→09:00)
[2018-03-31] MEDS: metFORMIN 500 MG TABLET PO SCH ×2 (08:15→09:00)
[2018-03-31] MEDS ORDERED: VANCOMYCIN PER PHARMACY MC PRN (08:45)
[2018-03-31 08:52] LABS: BGAS PH 7.49 (7.35-7.45)
[2018-03-31 08:54] LABS: BGAS PCO2 71 mmHg (35-45); BGAS PO2 79 mmHg (80-100); DELTA BASE BGAS > 30 mmol/L (0-3); O2 SAT BGAS 95 % (92-99)
[2018-03-31 08:55] LABS: FIO2 36 %
[2018-03-31 09:00] VITALS: BP 100/56
[2018-03-31 09:06] LABS: BASO # 0.1 x10^3/uL (0.0-0.2); BASO % 1 % (0-3); EOS % 0 % (0-3); HEMATOCRIT 35.9 % (36.0-47.0); HEMOGLOBIN 11.6 g/dL (12.0-15.5); LYMPH # 2.1 x10^3/uL (1.0-4.8); LYMPH % 30 % (24-48); MEAN CORPUSCULAR HEMOGLOBIN 28 pg (25-35); MEAN CORPUSCULAR HGB CONC 32 g/dL (31-37); MEAN CORPUSCULAR VOLUME 88 fL (79-100); MONO # 0.9 x10^3/uL (0.0-1.1); MONO % 13 % (0-9); NEUT # 3.8 x10^3uL (1.8-7.7); NEUT % 56 % (31-73); PLATELET COUNT 273 x10^3/uL (140-400); RED CELL DISTRIBUTION WIDTH 16.3 % (11.5-14.5); WHITE BLOOD COUNT 6.9 x10^3/uL (4.0-11.0)
[2018-03-31 09:24] LABS: ALBUMIN 2.5 g/dL (3.4-5.0); ALBUMIN/GLOBULIN RATIO 0.5 (1.0-1.7); CALCIUM 8.9 mg/dL (8.5-10.1); CREATININE 1.5 mg/dL (0.6-1.0); GFR 42.4; TOTAL BILIRUBIN 0.1 mg/dL (0.2-1.0); TOTAL PROTEIN 7.4 g/dL (6.4-8.2)
[2018-03-31] MEDS ORDERED: IPRA3AMP29 NEB (09:29)
[2018-03-31] MEDS ORDERED: NYST15PO9 TP (09:30)
[2018-03-31] MEDS ORDERED: PIPE4.5F2 IV (09:34)
[2018-03-31] MEDS ORDERED: DIVA500T4 PO ×2 (09:42→09:43)
[2018-03-31] MEDS ORDERED: CLON0.5T PO (09:44)
[2018-03-31] MEDS ORDERED: CLOZ100T PO (09:44)
[2018-03-31] MEDS ORDERED: TRAZ-86 PO (09:45)
[2018-03-31] MEDS ORDERED: PIPERACILLIN/TAZOBACTAM 4.5 GM in IV NORMAL SALINE 50ML 50 ML IV SCH (12:00)
[2018-03-31] MEDS ORDERED: IPRATRPIUM/ALBUTEROL 0.5/2.5MG 3 ML NEBU. NEB SCH (12:00)
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
--- NOTE | 2018-03-31 20:26 | PN ---
DATE: 03/29/2018 PSYCHIATRIC PROGRESS NOTE This late entry 03/29/2018 covers elements not covered in my initial note. SUBJECTIVE: I met with the patient in the evening. The patient slept 6-1/2 hours previous night. She continues to be somewhat labile, anxious, somewhat loud at times, but the yelling is much improved. She has to be "bribed" per nursing staff with different things she can do in the unit before she takes psychotropics. REVIEW OF SYSTEMS: Ambulation impaired with walker. No CV, , pulmonary, eye, or ENT system symptoms on review. MENTAL STATUS EXAM: Oriented to herself and situation. Speech is coherent, has some latency. Abstraction fair, computation impaired, language function intact, attention span short. Mood and affect less labile and she is less psychotic. LABORATORY DATA: Reviewed. IMPRESSION: Schizoaffective disorder, bipolar type, mixed with psychotic features; anxiety disorder, unspecified; cognitive disorder, unspecified. PLAN: The patient is very resistive to taking her psychotropics 3 times a day, barely accepted twice a day. She is currently on Depakote Sprinkles 750 t.i.d. We will change it to 750 in the morning and 1500 at night. Follow with labs level. Last valproic acid level was 65. Rest unchanged from initial note. Continue to gradually increase the Clozaril as tolerated. MAN Mary STARKS MD DR: TRACIE/karli JOB#: [id number] / [id number]
--- NOTE | 2018-04-01 00:57 | PN ---
DATE: 03/30/2018 This is a late entry for 03/30/2018 covers elements not covered in my initial note. SUBJECTIVE: I met with the patient in the evening. The patient slept 7 hours previous night. She has been somewhat withdrawn, less agitated, less yelling. REVIEW OF SYSTEMS: Ambulation impaired with walker. No CV, , pulmonary, eye system symptoms on review. MENTAL STATUS EXAM: Oriented to herself and situation. Speech has some latency, coherent, less pressured. Abstraction fair, computation impaired, language function intact, attention span short. Mood and affect still labile, withdrawn, but better than before. LABORATORY DATA: Reviewed. IMPRESSION: Schizoaffective disorder, bipolar type, mixed with psychotic features, in partial remission; cognitive disorder, unspecified. Rest unchanged. PLAN: Nursing staff had called me earlier in the day. The patient is refusing to take her medications more than twice a day and trazodone as q.i.d. and the rest of the psychotropics, we are adjusting to make it 4 times a day. We may gradually reduce the trazodone as well. KALIN STARKS MD DR: TRACIE/karli JOB#: [id number] / [id number]
--- NOTE | 2018-04-01 19:05 | PDOC ---
Exam Note: Napoleon Note: Late entry for date of service for March 31, 2018.Please also refer to the separate dictated note~for this date of service dictated separately.~Patient seen individually. Discussed the patient with Nursing staff reviewed the chart.~ Reviewed interim history and current functioning. Reviewed vital signs,~Labs/ Radiology~and current medications noted below. Continue current treatment with the changes noted in the dictated addendum note Assessment: Vital Signs: VS - Last 72 Hours, by Label Date Time Temp Pulse Resp B/P (MAP) Pulse Ox O2 Delivery O2 Flow Rate FiO2 03/31/18 09:37 93 BiPAP/CPAP 03/31/18 09:00 83 100/56 03/31/18 06:28 98.0 83 31 100/56 (71) 96 03/30/18 16:02 98.0 94 20 152/76 (101) 94 Room Air 03/30/18 10:14 97 Room Air 03/30/18 09:00 83 100/56 03/30/18 06:18 97.7 84 24 140/85 (103) 90 Vital Signs Date Time Temp Pulse Resp B/P (MAP) Pulse Ox O2 Delivery O2 Flow Rate FiO2 03/31/18 09:37 93 BiPAP/CPAP 03/31/18 09:00 83 100/56 03/31/18 06:28 98.0 31 Current Medications: Meds: Current Medications Lorazepam (Ativan) 2 mg 1X ONCE IM ; Start 02/10/18 at 04:00; Stop 02/10/18 at 04:01; Status DC Diphenhydramine HCl (Benadryl) 50 mg 1X ONCE IM ; Start 02/10/18 at 04:00; Stop 02/10/18 at 04:01; Status DC Ziprasidone (Geodon Im) 20 mg 1X ONCE IM ; Start 02/10/18 at 04:00; Stop at 04:01; Status DC Multivitamins/ Minerals 10 ml/ Folic Acid 1 mg/ Thiamine HCl 100 mg/Lactated Ringer's 1,011.1 ml @ 1,000 mls/ hr 1X ONCE IV ; Start 02/10/18 at 03:45; Stop 02/10/18 at 04:45; Status DC Magnesium Hydroxide (Milk Of Magnesia) 2,400 mg 1X ONCE PO ; Start 02/10/18 at 05:30; Stop 02/10/18 at 05:32; Status DC Potassium Chloride (KCl Oral Soln) 40 meq 1X ONCE PO ; Start 02/10/18 at 05:30 ; Stop 02/10/18 at 05:32; Status DC Acetaminophen (Tylenol) 650 mg PRN Q6HRS PRN PO PAIN / TEMP Last administered on 02/23/18at 12:43; Start 02/10/18 at 06:15; Stop 03/31/18 at 09:32; Status DC Multi-Ingredient Ointment (Analgesic Concan) 1 guanaco PRN QID PRN TP MUSCLE PAIN; Start 02/10/18 at 06:15; Stop 03/31/18 at 09:32; Status DC Al Hydroxide/Mg Hydroxide (Mylanta Plus Xs) 15 ml PRN AFTMEALHC PRN PO DYSPEPSIA; Start 02/10/18 at 06:15; Stop 03/31/18 at 09:32; Status DC Magnesium Hydroxide (Milk Of Magnesia) 2,400 mg PRN QHS PRN PO CONSTIPATION Last administered on 03/23/18at 22:18; Start 02/10/18 at 06:15; Stop 03/31/18 at 09:32; Status DC Influenza Virus Vaccine (Afluria Trivalent [id number] Syringe) 0.5 ml ONCE ONCE VAX IM Last administered on 02/10/18at 14:21; Start 02/10/18 at 09:00; Stop at 09:01; Status DC Vitamin D (Vitamin D3) 50,000 unit QTH PO Last administered on 03/27/18at 17:52 ; Start 02/13/18 at 16:00; Stop 03/31/18 at 09:32; Status DC Albuterol/ Ipratropium (Duoneb) 3 ml DAILY NEB Last administered on 03/30/18at 10:13; Start 02/10/18 at 09:00; Stop 03/31/18 at 09:04; Status DC Lactobacillus Rhamnosus (Culturelle) 1 cap BID PO Last administered on at 09:03; Start 02/10/18 at 09:00; Stop 02/22/18 at 18:00; Status DC Potassium Chloride (Klor-Con) 40 meq BIDWMEALS PO Last administered on 08:07; Start 02/10/18 at 08:00; Stop 03/30/18 at 09:40; Status DC Amantadine HCl (Symmetrel) 100 mg BID PO Last administered on 02/26/18 08:21; Start 02/10/18 at 09:00; Stop 02/26/18 at 11:24; Status DC Buspirone HCl (Buspar) 10 mg 1300,1700 PO Last administered on 03/29/18at 17:32 ; Start 02/10/18 at 13:00; Stop 03/30/18 at 09:40; Status DC Buspirone HCl (Buspar) 20 mg DAILY PO Last administered on 03/30/18 08:06; Start 02/10/18 at 09:00; Stop 03/30/18 at 09:40; Status DC Clonazepam (KlonoPIN) 1 mg TID PO Last administered on 03/09/18at 13:53; Start 02/10/18 at 09:00; Stop 03/09/18 at 18:43; Status DC Diltiazem HCl (Cardizem 24hr Cd) 120 mg DAILY PO Last administered on 07:54; Start 02/10/18 at 09:00; Stop 03/31/18 at 09:32; Status DC Furosemide (Lasix) 80 mg BID92 PO Last administered on 03/30/18 08:07; Start 02/10/18 at 09:00; Stop 03/30/18 at 09:40; Status DC Haloperidol (Haldol) 7.5 mg DAILY PO Last administered on 02/19/18at 09:05; Start 02/10/18 at 09:00; Stop 02/19/18 at 18:16; Status DC Non-Formulary Medication (Haloperidol Decanoate (Haldol Decanoate 100)) 450 mg Q4WK IM ; Start 02/10/18 at 09:00; Stop 02/10/18 at 16:12; Status DC Non-Formulary Medication (Insulin Aspart (Novolog Flexpen)) see protocol TIDWMEALS SQ ; Start 02/10/18 at 08:00; Status UNV Magnesium Oxide (Magnesium Oxide) 400 mg BID PO Last administered on 03/30/18at 17:45; Start 02/10/18 at 09:00; Stop 03/31/18 at 09:32; Status DC Metformin HCl (Glucophage) 500 mg BIDWMEALS PO Last administered on 03/30/18 08:06; Start 02/10/18 at 08:00; Stop 03/30/18 at 09:40; Status DC Metolazone (Zaroxolyn) 5 mg DAILY PO Last administered on 03/30/18 08:07; Start 02/10/18 at 09:00; Stop 03/31/18 at 09:32; Status DC Mirtazapine (Remeron) 15 mg QHS PO Last administered on 03/30/18at 17:45; Start 02/10/18 at 21:00; Stop 03/31/18 at 09:32; Status DC Pioglitazone HCl (Actos) 15 mg DAILY PO Last administered on 03/30/18at 08:07; Start 02/10/18 at 09:00; Stop 03/31/18 at 09:32; Status DC Trazodone HCl (Desyrel) 25 mg TID@0900,1300,1700 PO Last administered on at 16:51; Start 02/10/18 at 09:00; Stop 03/31/18 at 09:32; Status DC Valproic Acid (Depakene) 750 mg TID PO Last administered on 02/17/18at 21:01; Start 02/10/18 at 09:00; Stop 02/18/18 at 08:06; Status DC Insulin Human Lispro (HumaLOG) 0-9 UNITS TIDWMEALS SQ Last administered on 03/30at 13:17; Start 02/10/18 at 08:00; Stop 03/31/18 at 09:32; Status DC Dextrose 12.5 gm PRN Q15MIN PRN IV SEE COMMENTS; Start 02/10/18 at 06:30; Stop 03/31/18 at 09:32; Status DC Olanzapine (ZyPREXA ZYDIS) 5 mg PRN Q2HR PRN PO PSYCHOSIS Last administered on 03/02/18at 12:27; Start 02/10/18 at 06:45; Stop 03/31/18 at 09:32; Status DC Haloperidol Decanoate (Haldol Decanoate Im Extended Release) 450 mg Q4WK IM Last administered on 03/10/18at 08:50; Start 03/10/18 at 09:00; Stop 03/31/18 at 09:32; Status DC Trazodone HCl (Desyrel) 25 mg STK-MED ONCE .ROUTE ; Start 02/10/18 at 09:00; Stop 02/11/18 at 10:03; Status DC Trazodone HCl (Desyrel) 25 mg STK-MED ONCE .ROUTE ; Start 02/10/18 at 09:00; Stop 02/11/18 at 10:03; Status DC Trazodone HCl (Desyrel) 25 mg STK-MED ONCE .ROUTE ; Start 02/10/18 at 09:00; Stop 02/11/18 at 10:03; Status DC Trazodone HCl (Desyrel) 25 mg STK-MED ONCE .ROUTE ; Start 02/11/18 at 09:00; Stop 02/11/18 at 10:04; Status DC Clozapine (Clozaril) 25 mg HS PO Last administered on 02/16/18at 21:13; Start at 21:00; Stop 02/17/18 at 17:40; Status DC Nystatin (Nystop) 1 guanaco BID TP Last administered on 03/30/18at 19:53; Start at 09:00; Stop 03/31/18 at 09:32; Status DC Trazodone HCl (Desyrel) 100 mg PRN QHS PRN PO INSOMNIA, MAY REPEAT X1; Start at 17:00; Stop 02/16/18 at 22:42; Status DC Trazodone HCl (Desyrel) 100 mg QHS PO Last administered on 03/30/18at 17:45; Start 02/16/18 at 23:00; Stop 03/31/18 at 09:32; Status DC Trazodone HCl (Desyrel) 100 mg PRN QHS PRN PO insomnia Last administered on at 19:46; Start 02/16/18 at 22:45; Stop 03/31/18 at 09:32; Status DC Clozapine (Clozaril) 50 mg HS PO Last administered on 02/23/18at 19:21; Start at 21:00; Stop 02/24/18 at 16:13; Status DC Divalproex Sodium (Depakote Sprinkles) 750 mg TID PO Last administered on at 14:00; Start 02/18/18 at 09:00; Stop 03/29/18 at 18:43; Status DC Haloperidol (Haldol) 5 mg DAILY PO Last administered on 03/03/18at 09:32; Start 02/20/18 at 09:00; Stop 03/03/18 at 16:23; Status DC Clozapine (Clozaril) 75 mg HS PO Last administered on 03/02/18at 19:49; Start 02/24/18 at 21:00; Stop 03/03/18 at 16:23; Status DC Clozapine (Clozaril) 100 mg HS PO ; Start 03/03/18 at 16:30; Stop 03/03/18 at 17 :06; Status DC Clozapine (Clozaril) 100 mg HS PO Last administered on 03/10/18at 20:52; Start 03/03/18 at 21:00; Stop 03/10/18 at 22:18; Status DC Sodium Chloride 500 ml @ 0 mls/hr 1X ONCE IV Last administered on 03/08/18at 13:00; Start 03/08/18 at 13:00; Stop 03/08/18 at 13:01; Status DC Sodium Chloride 500 ml @ 125 mls/hr 1X ONCE IV Last administered on at 14:30; Start 03/08/18 at 15:15; Stop 03/08/18 at 19:14; Status DC Clonazepam (KlonoPIN) 1 mg 1200,1700 PO Last administered on 03/21/18at 17:00; Start 03/10/18 at 12:00; Stop 03/21/18 at 18:15; Status DC Clonazepam (KlonoPIN) 0.5 mg DAILY PO Last administered on 03/21/18at 09:29; Start 03/10/18 at 09:00; Stop 03/21/18 at 17:54; Status DC Nystatin (Mycostatin) 5 ml QID SWSW Last administered on 03/18/18at 19:43; Start 03/10/18 at 13:00; Stop 03/19/18 at 16:01; Status DC Clozapine (Clozaril) 125 mg HS PO Last administered on 03/16/18at 20:13; Start 03/11/18 at 21:00; Stop 03/17/18 at 18:02; Status DC Cefpodoxime Proxetil (Vantin) 100 mg BID PO Last administered on 03/19/18at 08: 05; Start 03/17/18 at 21:00; Stop 03/19/18 at 16:01; Status DC Clozapine (Clozaril) 150 mg HS PO Last administered on 03/23/18at 17:57; Start 03/17/18 at 21:00; Stop 03/24/18 at 16:30; Status DC Doxycycline Hyclate (Vibra-Tab) 100 mg BID PO Last administered on 03/28/18at 19 :31; Start 03/19/18 at 09:00; Stop 03/29/18 at 09:00; Status DC Doxycycline Hyclate (Vibra-Tab) 100 mg 1X ONCE PO ; Start 03/18/18 at 23:45; Stop 03/18/18 at 23:48; Status DC Lactobacillus Rhamnosus (Culturelle) 1 cap BID PO Last administered on at 08:06; Start 03/19/18 at 21:00; Stop 03/30/18 at 09:40; Status DC Clonazepam (KlonoPIN) 1 mg 1200 PO Last administered on 03/22/18at 13:55; Start 03/22/18 at 12:00; Stop 03/24/18 at 11:59; Status DC Clonazepam (KlonoPIN) 1 mg QHS PO Last administered on 03/30/18at 17:45; Start 03/21/18 at 21:00; Stop 03/31/18 at 09:32; Status DC Clonazepam (KlonoPIN) 0.5 mg 1200 PO Last administered on 03/29/18at 12:00; Start 03/24/18 at 12:00; Stop 03/30/18 at 09:40; Status DC Clozapine (Clozaril) 175 mg HS PO Last administered on 03/30/18at 17:44; Start 03/24/18 at 21:00; Stop 03/31/18 at 09:32; Status DC Potassium Chloride (Klor-Con) 20 meq STK-MED ONCE PO ; Start 03/26/18 at 09:33 ; Stop 03/26/18 at 09:34; Status DC Glucose (Insta-Glucose) 15 gm STK-MED ONCE .ROUTE ; Start 03/27/18 at 11:26; Stop 03/27/18 at 11:27; Status DC Divalproex Sodium (Depakote Sprinkles) 750 mg DAILY08 PO ; Start 03/30/18 at 08: 00; Stop 03/30/18 at 08:01; Status DC Divalproex Sodium (Depakote Sprinkles) 250 mg HS PO ; Start 03/29/18 at 21:00; Stop 03/29/18 at 21:00; Status DC Divalproex Sodium (Depakote Sprinkles) 1,500 mg HS PO ; Start 03/30/18 at 21:00 ; Stop 03/30/18 at 21:00; Status DC Divalproex Sodium (Depakote Sprinkles) 750 mg HS PO Last administered on at 19:51; Start 03/29/18 at 19:34; Stop 03/29/18 at 23:00; Status DC Divalproex Sodium (Depakote Er) 250 mg DAILY PO Last administered on 03/30/18at 08:09; Start 03/30/18 at 09:00; Stop 03/30/18 at 09:40; Status DC Divalproex Sodium (Depakote Er) 1,500 mg QHS PO Last administered on 03/30/18at 17:44; Start 03/30/18 at 21:00; Stop 03/31/18 at 09:32; Status DC Buspirone HCl (Buspar) 20 mg BID PO Last administered on 03/30/18at 17:44; Start 03/30/18 at 21:00; Stop 03/31/18 at 09:32; Status DC Clonazepam (KlonoPIN) 0.5 mg DAILY PO ; Start 03/31/18 at 09:00; Stop 03/31/18 at 09:32; Status DC Divalproex Sodium (Depakote Er) 750 mg DAILY PO ; Start 03/31/18 at 09:00; Stop 03/31/18 at 09:32; Status DC Furosemide (Lasix) 80 mg BID PO Last administered on 03/30/18at 17:45; Start at 21:00; Stop 03/31/18 at 09:32; Status DC Metformin HCl (Glucophage) 500 mg BID PO Last administered on 03/30/18at 17:45; Start 03/30/18 at 21:00; Stop 03/31/18 at 09:32; Status DC Potassium Chloride (Klor-Con) 40 meq BID PO ; Start 03/30/18 at 21:00; Stop 03/31/18 at 09:32; Status DC Albuterol/ Ipratropium (Duoneb) 3 ml RTQID NEB ; Start 03/31/18 at 12:00; Stop 03/31/18 at 12:00; Status DC Piperacillin Sod/ Tazobactam Sod 4.5 gm/Sodium Chloride 50 ml @ 100 mls/hr Q6HRS IV ; Start 03/31/18 at 12:00; Stop 03/31/18 at 12:00; Status DC Vancomycin HCl (Vanco Per Pharmacy) 1 each PRN DAILY PRN MC SEE COMMENTS; Start 03/31/18 at 08:45; Stop 03/31/18 at 09:32; Status DC Active Scripts Active Reported Trazodone Hcl 100 Mg Tablet 1 Tab PO QHS Klonopin (Clonazepam) 0.5 Mg Tablet 1 Tab PO DAILY Clozaril (Clozapine) 100 Mg Tablet 175 Mg PO HS Depakote Er (Divalproex Sodium) 500 Mg Tab.er.24h 750 Mg PO DAILY Depakote Er (Divalproex Sodium) 500 Mg Tab.er.24h 1,500 Mg PO HS Zosyn 4.5 Gm Pre-Mix Bag (Fyjrrdqbsedo-Qtms-Etpvlzmv,Iso) 4.5 Gm/100 Ml Froz.piggy 4.5 Gm IV Q6HRS Nystatin 15 Gm Powder 1 Guanaco TP BID Duoneb 0.5-3(2.5) Mg/3 Ml (Albuterol/Ipratropium) 3 Ml Ampul.neb 3 Ml NEB QID Zyprexa Zydis (Olanzapine) 5 Mg Tab.rapdis 5 Mg PO PRN Q2HR PRN Novolog Flexpen (Insulin Aspart) 100 Unit/1 Ml Insuln.pen 0-9 Unit SQ TIDWMEALS <70 follow hypoglycemic protocol 70-150 0units if eating/ 0 if not eating 151-200 4 units if eating/ 0 units if not eating 201-250 5 units if eating/ 3 units if not eating 251-300 7 units if eating/ 4 units if not eating 301-350 9 units if eating/ 5 units if not eating > 351 Call Physician for futher orders Trazodone Hcl 100 Mg Tablet 100 Mg PO PRN QHS PRN Trazodone Hcl 50 Mg Tablet 25 Mg PO TID@0900,1300,1700 Tylenol (Acetaminophen) 325 Mg Tablet 650 Mg PO PRN Q6HRS PRN Buspirone Hcl 10 Mg Tablet 20 Mg PO BID Metolazone 5 Mg Tablet 5 Mg PO DAILY Metformin Hcl 500 Mg Tablet 500 Mg PO BIDWMEALS Cardizem Tablet (Diltiazem Hcl) 120 Mg Tablet 120 Mg PO DAILY Actos (Pioglitazone Hcl) 15 Mg Tablet 15 Mg PO DAILY Mirtazapine 15 Mg Tablet 15 Mg PO QHS Haldol Decanoate 100 (Haloperidol Decanoate) 100 Mg/1 Ml Ampul 450 Mg IM Q4WK Klor-Con M20 (Potassium Chloride) 20 Meq Tab.er.prt 40 Meq PO BIDWMEALS Analgesic Concan (Methyl Salicylate/Menthol) 28 Gm Oint...g. 1 Guanaco TP PRN QID PRN Magnesium Oxide 400 Mg Tablet 400 Mg PO BID Milk Of Magnesia (Magnesium Hydroxide) 2,400 Mg/10 Ml Oral.susp 2,400 Mg PO PRN QHS PRN Maalox Advanced Suspension (Mag Hydrox/Aluminum Hyd/Simeth) 355 Ml Oral.susp 15 Ml PO PRN AFTMEALHC PRN D3-50 (Cholecalciferol (Vitamin D3)) 50,000 Unit Capsule 50,000 Unit PO QTH Clonazepam 1 Mg Tablet 1 Mg PO HS Furosemide 40 Mg Tablet 80 Mg PO [id number] Hold for SBP less than 100. After held dose, reassess in 2 hours. If SBP is above threshold, administer dose as ordered. If SBP is below threshold, contact provider for additional instructions. I have reviewed the current psychotropics carefully including drug interactions. Risk benefit ratio favors no change other than as noted in my dictated progress note. Diagnosis: Problems: (1) Depression (2) Schizoaffective disorder (3) Anxiety disorder (4) DM type 2 (diabetes mellitus, type 2) (5) Impulse control disorder (6) Chronic respiratory failure (7) Schizoaffective disorder, chronic condition with acute exacerbation (8) Hypoxia (9) Anemia (10) Dysphagia (11) B12 deficiency (12) Tremor (13) Lower extremity edema (14) Cellulitis KALIN STARKS MD Apr 01, 2018 19:05
[2018-04-03] MEDS ORDERED: CEFD300C PO (13:52)
== END 2018-03-31 09:31 | disposition short-term general hospital (02) | DRG 885 ==
LOC: ER 03:06 → EEVIPCON 03:06 → GEROPSY 05:45
PROVIDERS: ADMIT Psychiatry & Neurology Psychiatry; ATTEND Psychiatry & Neurology Psychiatry
DX: F25.0 Schizoaffective disorder, bipolar type (principal); J18.9 Pneumonia, unspecified organism; I13.0 Hypertensive heart and chronic kidney disease with heart failure and stage 1 through stage 4 chronic kidney disease, or unspecified chronic kidney disease; J44.0 Chronic obstructive pulmonary disease with (acute) lower respiratory infection; J96.11 Chronic respiratory failure with hypoxia; N39.0 Urinary tract infection, site not specified; L03.90 Cellulitis, unspecified; Z68.41 Body mass index [BMI] 40.0-44.9, adult; E03.9 Hypothyroidism, unspecified; E11.22 Type 2 diabetes mellitus with diabetic chronic kidney disease; E78.5 Hyperlipidemia, unspecified; F01.50 Vascular dementia, unspecified severity, without behavioral disturbance, psychotic disturbance, mood disturbance, and anxiety; G30.9 Alzheimer's disease, unspecified; F02.80 Dementia in other diseases classified elsewhere, unspecified severity, without behavioral disturbance, psychotic disturbance, mood disturbance, and anxiety; F09 Unspecified mental disorder due to known physiological condition; F41.9 Anxiety disorder, unspecified; F63.9 Impulse disorder, unspecified; G25.81 Restless legs syndrome; G47.33 Obstructive sleep apnea (adult) (pediatric); I25.10 Atherosclerotic heart disease of native coronary artery without angina pectoris; I50.9 Heart failure, unspecified; D64.9 Anemia, unspecified; E53.8 Deficiency of other specified B group vitamins; R13.10 Dysphagia, unspecified; N18.9 Chronic kidney disease, unspecified; E66.01 Morbid (severe) obesity due to excess calories; M19.90 Unspecified osteoarthritis, unspecified site; E83.42 Hypomagnesemia; E87.6 Hypokalemia; K59.00 Constipation, unspecified; Z91.14 Patient's other noncompliance with medication regimen
CPT/HCPCS: 36415; 70450; 71045; 80048; 80053; 80061; 80164; 81001; 82140; 82306; 82550; 82553; 82607; 82803; 82947; 83036; 83540; 83550; 83605; 83735; 83880; 84436; 84443; 84480; 84484; 85007; 85025; 85610; 85651; 85730; 86592; 87040; 87086; 90471; 90756; 93005; 94640; J1631; J1815; J7040; J7620; 99285-25; Q2035

== ENCOUNTER 2018-04-03 15:20 | Inpatient (IN) | payer MEDICARE, OTHER ==
[~2018-04-03] VITALS: Ht 154.9 cm; Wt 99.9 kg
[~2018-04-03 15:20] MED LIST changes: +CEFD300C PO; +CLON0.5T PO; +CLON1TAB11 PO; -CLON1TAB4 PO; +CLOZ100T PO; +NYST15PO9 TP; +PIPE4.5F2 IV; +POLY17PO28 PO; -POLY17PO3 PO
[2018-04-03 16:05] VITALS: BP 127/75
[2018-04-03] MEDS ORDERED: ACETAMINOPHEN 325 MG TABLET PO PRN (16:45)
[2018-04-03] MEDS ORDERED: DEXTROSE 50% 25 GM / 50ML DISP.SYRIN. IV PRN (16:45)
[2018-04-03] MEDS ORDERED: METHYL SALICYLATE/MENTHOL TOPICAL OINTMENT 29GM TUBE. TP PRN (16:45)
[2018-04-03] MEDS: IPRATRPIUM/ALBUTEROL 0.5/2.5MG 3 ML NEBU. NEB SCH ×2 (16:49→20:46)
[2018-04-03] MEDS ORDERED: MAGNESIUM HYDROXIDE 2,400 MG/30 ML ORAL.SUSP. PO PRN (17:00)
[2018-04-03] MEDS ORDERED: MAG HYDROX/AL HYDROX/SIMETH 30 ML ORAL.SUSP PO PRN (17:00)
[2018-04-03] MEDS: POTASSIUM CHLORIDE 20 MEQ TABLET.ER. PO SCH (17:00)
[2018-04-03] MEDS: metFORMIN 500 MG TABLET PO SCH (17:00)
[2018-04-03] MEDS ORDERED: traZODone 100 MG TABLET. PO PRN (17:30)
[2018-04-03] MEDS: INSULIN LISPRO 300 UNITS/3 ML INSULN.PEN. SQ SCH (17:35)
--- NOTE | 2018-04-03 19:10 | HP ---
ADMIT DATE: 04/03/2018 IDENTIFYING DATA: The patient is a 62-year-old -[place] female who returns back to us from the ICU at [facility] after she is medically stabilized for her pneumonia and dropping oxygen saturations while she was on the [facility] being treated for his schizoaffective disorder, bipolar type. She has been on extremely high dosages of various antipsychotics and psychotropic medications including Depakote, had failed outpatient treatment at the residential because of her marked psychosis, aggression, was admitted to us. She was started on Clozaril, seems to be stabilizing, but then developed the pneumonia, transferred to the ICU where I have followed her as well from a psychiatric standpoint. In the ICU, she remained psychotic, paranoid, refusing her medications, difficult to manage. It was felt she could not be safely transferred back to the residential and was transferred back to us for further adjustment of Clozaril and reduction of her other psychotropics on the [facility]. CHIEF COMPLAINT: "I am okay." The patient seemed to recognize me, was having her supper. HISTORY OF PRESENT ILLNESS: The patient has a long history of schizoaffective disorder, bipolar type, mixed with psychotic features. She has had multiple inpatient hospitalizations including [facility]. Prior to the referral from the residential, she had become extremely agitated, labile, psychotic, and reader is referred to that evaluation for details. No active suicidal or homicidal ideation. She has had some sleep and appetite changes. PAST PSYCHIATRIC HISTORY: As above. MEDICAL HISTORY: Impaired ambulation, chronic kidney disease, heart failure, status post pneumonia, diabetes mellitus, anemia, dysphagia, chronic respiratory failure, B12 deficiency, and cellulitis. CURRENT PSYCHOTROPICS: MRAD was reviewed. DRUG ALLERGIES: Negative. CODE STATUS: Full code. FAMILY HISTORY: Noncontributory. SOCIAL HISTORY: No alcohol or drug abuse history. She resides at the residential. No history of physical, sexual, or elder abuse. She is not known to be a perpetrator. MENTAL STATUS EXAMINATION: The patient was seen individually evening of 04/03/2018. She is oriented to herself and situation. Speech, often responses monosyllabic. Abstraction fair, computation impaired, language function intact, attention span short. Mood and affect remains somewhat withdrawn at times, labile. No active suicidal or homicidal ideation. LABORATORY DATA: Reviewed. IMPRESSION: Schizoaffective disorder, bipolar type, mixed with psychotic features; anxiety disorder, unspecified; impulse control disorder, unspecified. Rest diagnoses as noted above. PLAN: Admit to geropsychiatry unit at [facility]. Request Dr. Puga/Dr. Gonzalez to follow the patient medically. Continue Clozaril at current dosage. Check weekly CBC, absolute neutrophil counts, make further adjustments as clinically indicated. KALIN STARKS MD DR: [email or web address]/karli JOB#: [id number] / [id number]
[2018-04-03] MEDS: DIVALPROEX ER 500 MG TAB.ER.24H PO SCH (19:44)
[2018-04-03] MEDS: MAGNESIUM OXIDE 400 MG TABLET PO SCH (19:44)
[2018-04-03] MEDS: clonazePAM 1 MG TABLET PO SCH (19:44)
[2018-04-03] MEDS: MIRTAZAPINE 15 MG TABLET PO SCH (19:45)
[2018-04-03] MEDS: cloZAPine 25 MG TABLET PO SCH (19:45)
[2018-04-03] MEDS: traZODone 100 MG TABLET. PO SCH (19:45)
[2018-04-03] MEDS: busPIRone 10 MG TABLET. PO SCH (19:45)
[2018-04-03] MEDS: cloZAPine 100 MG TABLET PO SCH (19:45)
[2018-04-03] MEDS: NYSTATIN TOPICAL POWDER 15GM BOTTLE. TP SCH (19:45)
[2018-04-04] MEDS: IPRATRPIUM/ALBUTEROL 0.5/2.5MG 3 ML NEBU. NEB SCH ×4 (05:18→20:17)
[2018-04-04 06:28] VITALS: BP 101/65
[2018-04-04] MEDS ORDERED: CEFDINIR 300 MG CAPSULE PO SCH (09:00)
[2018-04-04] MEDS ORDERED: FUROSEMIDE 40 MG TABLET PO SCH (09:00)
[2018-04-04] MEDS: traZODone 50 MG TABLET. PO SCH ×3 (09:00→17:51)
[2018-04-04] MEDS: clonazePAM 0.5 MG TABLET PO SCH (09:45)
[2018-04-04] MEDS: metOLazone 5 MG TABLET PO SCH (09:46)
[2018-04-04] MEDS: PIOGLITAZONE 15 MG TABLET. PO SCH (09:46)
[2018-04-04] MEDS: busPIRone 10 MG TABLET. PO SCH ×2 (09:46→19:48)
[2018-04-04] MEDS: POTASSIUM CHLORIDE 20 MEQ TABLET.ER. PO SCH ×2 (09:46→19:47)
[2018-04-04] MEDS: MAGNESIUM OXIDE 400 MG TABLET PO SCH ×2 (09:47→19:43)
[2018-04-04] MEDS: DIVALPROEX ER 250 MG TAB.ER.24H. PO SCH (09:47)
[2018-04-04] MEDS: NYSTATIN TOPICAL POWDER 15GM BOTTLE. TP SCH ×2 (09:47→19:45)
[2018-04-04] MEDS: metFORMIN 500 MG TABLET PO SCH ×2 (09:48→19:48)
[2018-04-04] MEDS: INSULIN LISPRO 300 UNITS/3 ML INSULN.PEN. SQ SCH ×3 (09:51→17:49)
[2018-04-04 16:05] VITALS: BP 114/71
[2018-04-04] MEDS: clonazePAM 1 MG TABLET PO SCH (19:42)
[2018-04-04] MEDS: cloZAPine 25 MG TABLET PO SCH (19:42)
[2018-04-04] MEDS: cloZAPine 100 MG TABLET PO SCH (19:42)
[2018-04-04] MEDS: traZODone 100 MG TABLET. PO SCH (19:43)
[2018-04-04] MEDS: MIRTAZAPINE 15 MG TABLET PO SCH (19:43)
[2018-04-04] MEDS: DIVALPROEX ER 500 MG TAB.ER.24H PO SCH (19:43)
[2018-04-04] MEDS: CEFDINIR 300 MG CAPSULE PO SCH (19:44)
[2018-04-04] MEDS: LACTOBACILLUS RHAMNOSUS GG 1 CAPSULE. PO SCH (19:48)
[2018-04-04] MEDS: FUROSEMIDE 40 MG TABLET PO SCH (19:48)
--- NOTE | 2018-04-04 19:57 | PDOC ---
Exam Note: Napoleon Note: Please also refer to the separate dictated note~for this date of service dictated separately.. Discussed the patient with Nursing staff reviewed the chart.~Reviewed interim history and current functioning. Reviewed vital signs,~ Labs/ Radiology~and current medications noted below. Continue current treatment with the changes noted in the dictated addendum note Assessment: Vital Signs: Vital Signs Date Time Temp Pulse Resp B/P (MAP) Pulse Ox O2 Delivery O2 Flow Rate FiO2 04/04/18 16:35 92 Room Air 04/04/18 16:05 97.8 73 16 114/71 (85) 04/04/18 06:28 1.0 I&O Intake and Output 04/04/18 07:00 Intake Total 720 ml Balance 720 ml Intake Oral 720 ml # Voids 1 Labs: Laboratory Tests Test 04/04/18 16:24 Glucose (Fingerstick) 186 mg/dL (70-99) H Current Medications: Meds: Current Medications Acetaminophen (Tylenol) 650 mg PRN Q6HRS PRN PO PAIN / TEMP; Start 04/03/18 at 16:45 Vitamin D (Vitamin D3) 50,000 unit QTH PO ; Start 04/10/18 at 16:00 Albuterol/ Ipratropium (Duoneb) 3 ml QID NEB Last administered on 04/04/18at 16: 34; Start 04/03/18 at 17:00 Multi-Ingredient Ointment (Analgesic [place]) 1 guanaco PRN QID PRN TP MUSCLE PAIN; Start 04/03/18 at 16:45 Nystatin (Nystop) 1 guanaco BID TP Last administered on 04/04/18at 19:45; Start 04/03/18 at 21:00 Potassium Chloride (Klor-Con) 40 meq BIDWMEALS PO Last administered on at 09:46; Start 04/03/18 at 17:00; Stop 04/04/18 at 11:51; Status DC Cefdinir (Omnicef) 300 mg BID PO ; Start 04/04/18 at 09:00; Stop 04/04/18 at 17: 55; Status DC Diltiazem HCl (Cardizem 24hr Cd) 120 mg DAILY PO Last administered on at 09:00; Start 04/04/18 at 09:00 Furosemide (Lasix) 80 mg BID92 PO Last administered on 04/04/18 09:46; Start 04/04/18 at 09:00; Stop 04/04/18 at 11:51; Status DC Al Hydroxide/Mg Hydroxide (Mylanta Plus Xs) 15 ml PRN AFTMEALHC PRN PO DYSPEPSIA; Start 04/03/18 at 17:00 Magnesium Hydroxide (Milk Of Magnesia) 2,400 mg PRN QHS PRN PO CONSTIPATION; Start 04/03/18 at 17:00 Magnesium Oxide (Magnesium Oxide) 400 mg BID PO Last administered on 04/04/18 19:43; Start 04/03/18 at 21:00 Metformin HCl (Glucophage) 500 mg BIDWMEALS PO Last administered on 04/04/18 09:48; Start 04/03/18 at 17:00; Stop 04/04/18 at 11:52; Status DC Metolazone (Zaroxolyn) 5 mg DAILY PO Last administered on 04/04/18 09:46; Start 04/04/18 at 09:00 Pioglitazone HCl (Actos) 15 mg DAILY PO Last administered on 04/04/18 09:46; Start 04/04/18 at 09:00 Insulin Human Lispro (HumaLOG) 0-9 UNITS TIDWMEALS SQ Last administered on 04/04 17:49; Start 04/03/18 at 17:00 Dextrose 12.5 gm PRN Q15MIN PRN IV SEE COMMENTS; Start 04/03/18 at 16:45 Clonazepam (KlonoPIN) 0.5 mg DAILY PO Last administered on 04/04/18 09:45; Start 04/04/18 at 09:00 Olanzapine (ZyPREXA ZYDIS) 5 mg PRN Q2HR PRN PO ANXIETY / AGITATION; Start 04/03/18 at 17:00 Buspirone HCl (Buspar) 20 mg BID PO Last administered on 04/04/18 19:48; Start 04/03/18 at 21:00 Clonazepam (KlonoPIN) 1 mg HS PO Last administered on 04/04/18 19:42; Start 04/03/18 at 21:00 Clozapine (Clozaril) 100 mg QHS PO Last administered on 04/04/18 19:42; Start 04/03/18 at 21:00 Divalproex Sodium (Depakote Er) 1,500 mg QHS PO Last administered on 04/04/18 19:43; Start 04/03/18 at 21:00 Divalproex Sodium (Depakote Er) 750 mg DAILY PO Last administered on 04/04/18 09:47; Start 04/04/18 at 09:00 Haloperidol Decanoate (Haldol Decanoate Im Extended Release) 450 mg Q4WK IM ; Start 05/01/18 at 09:00 Mirtazapine (Remeron) 15 mg QHS PO Last administered on 04/04/18 19:43; Start 04/03/18 at 21:00 Trazodone HCl (Desyrel) 25 mg TID@0900,1300,1700 PO Last administered on 17:51; Start 04/04/18 at 09:00 Trazodone HCl (Desyrel) 100 mg QHS PO Last administered on 04/04/18 19:43; Start 04/03/18 at 21:00 Trazodone HCl (Desyrel) 100 mg PRN QHS PRN PO INSOMNIA; Start 04/03/18 at 17:30 Clozapine (Clozaril) 75 mg QHS PO Last administered on 04/04/18 19:42; Start 04/03/18 at 21:00 Lactobacillus Rhamnosus (Culturelle) 1 cap BID PO Last administered on 19:48; Start 04/04/18 at 21:00 Furosemide (Lasix) 80 mg BID PO Last administered on 04/04/18 19:48; Start at 21:00 Metformin HCl (Glucophage) 500 mg BID PO Last administered on 04/04/18 19:48; Start 04/04/18 at 21:00 Potassium Chloride (Klor-Con) 40 meq BID PO Last administered on 04/04/18 19: 47; Start 04/04/18 at 21:00 Cefdinir (Omnicef) 300 mg BID PO Last administered on 04/04/18 19:44; Start 04/04/18 at 21:00; Stop 04/11/18 at 09:01 Active Scripts Active Cefdinir 300 Mg Capsule 1 Cap PO BID Reported Trazodone Hcl 100 Mg Tablet 1 Tab PO QHS Klonopin (Clonazepam) 0.5 Mg Tablet 1 Tab PO DAILY Clozaril (Clozapine) 100 Mg Tablet 175 Mg PO HS Depakote Er (Divalproex Sodium) 500 Mg Tab.er.24h 750 Mg PO DAILY Depakote Er (Divalproex Sodium) 500 Mg Tab.er.24h 1,500 Mg PO HS Nystatin 15 Gm Powder 1 [place] TP BID Duoneb 0.5-3(2.5) Mg/3 Ml (Albuterol/Ipratropium) 3 Ml Ampul.neb 3 Ml NEB QID Zyprexa Zydis (Olanzapine) 5 Mg Tab.rapdis 5 Mg PO PRN Q2HR PRN Novolog Flexpen (Insulin Aspart) 100 Unit/1 Ml Insuln.pen 0-9 Unit SQ TIDWMEALS <70 follow hypoglycemic protocol 70-150 0units if eating/ 0 if not eating 151-200 4 units if eating/ 0 units if not eating 201-250 5 units if eating/ 3 units if not eating 251-300 7 units if eating/ 4 units if not eating 301-350 9 units if eating/ 5 units if not eating > 351 Call Physician for futher orders Trazodone Hcl 100 Mg Tablet 100 Mg PO PRN QHS PRN Trazodone Hcl 50 Mg Tablet 25 Mg PO TID@0900,1300,1700 Tylenol (Acetaminophen) 325 Mg Tablet 650 Mg PO PRN Q6HRS PRN Buspirone Hcl 10 Mg Tablet 20 Mg PO BID Metolazone 5 Mg Tablet 5 Mg PO DAILY Metformin Hcl 500 Mg Tablet 500 Mg PO BIDWMEALS Cardizem Tablet (Diltiazem Hcl) 120 Mg Tablet 120 Mg PO DAILY Actos (Pioglitazone Hcl) 15 Mg Tablet 15 Mg PO DAILY Mirtazapine 15 Mg Tablet 15 Mg PO QHS Haldol Decanoate 100 (Haloperidol Decanoate) 100 Mg/1 Ml Ampul 450 Mg IM Q4WK Klor-Con M20 (Potassium Chloride) 20 Meq Tab.er.prt 40 Meq PO BIDWMEALS Analgesic [place] (Methyl Salicylate/Menthol) 28 Gm Oint...g. 1 [place] TP PRN QID PRN Magnesium Oxide 400 Mg Tablet 400 Mg PO BID Milk Of Magnesia (Magnesium Hydroxide) 2,400 Mg/10 Ml Oral.susp 2,400 Mg PO PRN QHS PRN Maalox Advanced Suspension (Mag Hydrox/Aluminum Hyd/Simeth) 355 Ml Oral.susp 15 Ml PO PRN AFTMEALHC PRN D3-50 (Cholecalciferol (Vitamin D3)) 50,000 Unit Capsule 50,000 Unit PO QTH Clonazepam 1 Mg Tablet 1 Mg PO HS Furosemide 40 Mg Tablet 80 Mg PO [id number] Hold for SBP less than 100. After held dose, reassess in 2 hours. If SBP is above threshold, administer dose as ordered. If SBP is below threshold, contact provider for additional instructions. I have reviewed the current psychotropics carefully including drug interactions. Risk benefit ratio favors no change other than as noted in my dictated progress note. Diagnosis: Problems: (1) Hypokalemia (2) Altered mental status (3) Chronic kidney disease (4) Acute on chronic diastolic (congestive) heart failure (5) Acute and chronic respiratory failure with hypercapnia (6) Infiltrate of lower lobe of left lung present on imaging study (7) Depression (8) Schizoaffective disorder (9) Anxiety disorder (10) Impulse control disorder (11) DM type 2 (diabetes mellitus, type 2) (12) Schizoaffective disorder, chronic condition with acute exacerbation (13) Chronic respiratory failure (14) Hypoxia (15) Anemia (16) Dysphagia (17) B12 deficiency (18) Tremor (19) Lower extremity edema (20) Cellulitis KALIN STARKS MD Apr 04, 2018 19:57
--- NOTE | 2018-04-04 23:00 | PDOC ---
Exam Note: Napoleon Note: Please also refer to the separate dictated note~for this date of service dictated separately.~Patient seen individually. Discussed the patient with Nursing staff reviewed the chart.~Reviewed interim history and current functioning. Reviewed vital signs,~Labs/ Radiology~and current medications noted below. Continue current treatment with the changes noted in the dictated addendum note Assessment: Vital Signs: Vital Signs Date Time Temp Pulse Resp B/P (MAP) Pulse Ox O2 Delivery O2 Flow Rate FiO2 04/04/18 20:20 94 Room Air 04/04/18 16:05 97.8 73 16 114/71 (85) 04/04/18 06:28 1.0 I&O Intake and Output 04/04/18 07:00 Intake Total 720 ml Balance 720 ml Intake Oral 720 ml # Voids 1 Labs: Laboratory Tests Test 04/04/18 16:24 Glucose (Fingerstick) 186 mg/dL (70-99) H Current Medications: Meds: Current Medications Acetaminophen (Tylenol) 650 mg PRN Q6HRS PRN PO PAIN / TEMP; Start 04/03/18 at 16:45 Vitamin D (Vitamin D3) 50,000 unit QTH PO ; Start 04/10/18 at 16:00 Albuterol/ Ipratropium (Duoneb) 3 ml QID NEB Last administered on 04/04/18at 20: 17; Start 04/03/18 at 17:00 Multi-Ingredient Ointment (Analgesic [place]) 1 guanaco PRN QID PRN TP MUSCLE PAIN; Start 04/03/18 at 16:45 Nystatin (Nystop) 1 guanaco BID TP Last administered on 04/04/18at 19:45; Start 04/03/18 at 21:00 Potassium Chloride (Klor-Con) 40 meq BIDWMEALS PO Last administered on at 09:46; Start 04/03/18 at 17:00; Stop 04/04/18 at 11:51; Status DC Cefdinir (Omnicef) 300 mg BID PO ; Start 04/04/18 at 09:00; Stop 04/04/18 at 17: 55; Status DC Diltiazem HCl (Cardizem 24hr Cd) 120 mg DAILY PO Last administered on at 09:00; Start 04/04/18 at 09:00 Furosemide (Lasix) 80 mg BID92 PO Last administered on 04/04/18 09:46; Start 04/04/18 at 09:00; Stop 04/04/18 at 11:51; Status DC Al Hydroxide/Mg Hydroxide (Mylanta Plus Xs) 15 ml PRN AFTMEALHC PRN PO DYSPEPSIA; Start 04/03/18 at 17:00 Magnesium Hydroxide (Milk Of Magnesia) 2,400 mg PRN QHS PRN PO CONSTIPATION; Start 04/03/18 at 17:00 Magnesium Oxide (Magnesium Oxide) 400 mg BID PO Last administered on 04/04/18 19:43; Start 04/03/18 at 21:00 Metformin HCl (Glucophage) 500 mg BIDWMEALS PO Last administered on 04/04/18 09:48; Start 04/03/18 at 17:00; Stop 04/04/18 at 11:52; Status DC Metolazone (Zaroxolyn) 5 mg DAILY PO Last administered on 04/04/18 09:46; Start 04/04/18 at 09:00 Pioglitazone HCl (Actos) 15 mg DAILY PO Last administered on 04/04/18 09:46; Start 04/04/18 at 09:00 Insulin Human Lispro (HumaLOG) 0-9 UNITS TIDWMEALS SQ Last administered on 04/04 17:49; Start 04/03/18 at 17:00 Dextrose 12.5 gm PRN Q15MIN PRN IV SEE COMMENTS; Start 04/03/18 at 16:45 Clonazepam (KlonoPIN) 0.5 mg DAILY PO Last administered on 04/04/18 09:45; Start 04/04/18 at 09:00 Olanzapine (ZyPREXA ZYDIS) 5 mg PRN Q2HR PRN PO ANXIETY / AGITATION; Start 04/03/18 at 17:00 Buspirone HCl (Buspar) 20 mg BID PO Last administered on 04/04/18 19:48; Start 04/03/18 at 21:00 Clonazepam (KlonoPIN) 1 mg HS PO Last administered on 04/04/18 19:42; Start 04/03/18 at 21:00 Clozapine (Clozaril) 100 mg QHS PO Last administered on 04/04/18 19:42; Start 04/03/18 at 21:00 Divalproex Sodium (Depakote Er) 1,500 mg QHS PO Last administered on 04/04/18 19:43; Start 04/03/18 at 21:00 Divalproex Sodium (Depakote Er) 750 mg DAILY PO Last administered on 04/04/18 09:47; Start 04/04/18 at 09:00 Haloperidol Decanoate (Haldol Decanoate Im Extended Release) 450 mg Q4WK IM ; Start 05/01/18 at 09:00 Mirtazapine (Remeron) 15 mg QHS PO Last administered on 04/04/18 19:43; Start 04/03/18 at 21:00 Trazodone HCl (Desyrel) 25 mg TID@0900,1300,1700 PO Last administered on 17:51; Start 04/04/18 at 09:00 Trazodone HCl (Desyrel) 100 mg QHS PO Last administered on 04/04/18 19:43; Start 04/03/18 at 21:00 Trazodone HCl (Desyrel) 100 mg PRN QHS PRN PO INSOMNIA; Start 04/03/18 at 17:30 Clozapine (Clozaril) 75 mg QHS PO Last administered on 04/04/18 19:42; Start 04/03/18 at 21:00 Lactobacillus Rhamnosus (Culturelle) 1 cap BID PO Last administered on 19:48; Start 04/04/18 at 21:00 Furosemide (Lasix) 80 mg BID PO Last administered on 04/04/18 19:48; Start at 21:00 Metformin HCl (Glucophage) 500 mg BID PO Last administered on 04/04/18 19:48; Start 04/04/18 at 21:00 Potassium Chloride (Klor-Con) 40 meq BID PO Last administered on 04/04/18 19: 47; Start 04/04/18 at 21:00 Cefdinir (Omnicef) 300 mg BID PO Last administered on 04/04/18 19:44; Start 04/04/18 at 21:00; Stop 04/11/18 at 09:01 Active Scripts Active Cefdinir 300 Mg Capsule 1 Cap PO BID Reported Trazodone Hcl 100 Mg Tablet 1 Tab PO QHS Klonopin (Clonazepam) 0.5 Mg Tablet 1 Tab PO DAILY Clozaril (Clozapine) 100 Mg Tablet 175 Mg PO HS Depakote Er (Divalproex Sodium) 500 Mg Tab.er.24h 750 Mg PO DAILY Depakote Er (Divalproex Sodium) 500 Mg Tab.er.24h 1,500 Mg PO HS Nystatin 15 Gm Powder 1 [place] TP BID Duoneb 0.5-3(2.5) Mg/3 Ml (Albuterol/Ipratropium) 3 Ml Ampul.neb 3 Ml NEB QID Zyprexa Zydis (Olanzapine) 5 Mg Tab.rapdis 5 Mg PO PRN Q2HR PRN Novolog Flexpen (Insulin Aspart) 100 Unit/1 Ml Insuln.pen 0-9 Unit SQ TIDWMEALS <70 follow hypoglycemic protocol 70-150 0units if eating/ 0 if not eating 151-200 4 units if eating/ 0 units if not eating 201-250 5 units if eating/ 3 units if not eating 251-300 7 units if eating/ 4 units if not eating 301-350 9 units if eating/ 5 units if not eating > 351 Call Physician for futher orders Trazodone Hcl 100 Mg Tablet 100 Mg PO PRN QHS PRN Trazodone Hcl 50 Mg Tablet 25 Mg PO TID@0900,1300,1700 Tylenol (Acetaminophen) 325 Mg Tablet 650 Mg PO PRN Q6HRS PRN Buspirone Hcl 10 Mg Tablet 20 Mg PO BID Metolazone 5 Mg Tablet 5 Mg PO DAILY Metformin Hcl 500 Mg Tablet 500 Mg PO BIDWMEALS Cardizem Tablet (Diltiazem Hcl) 120 Mg Tablet 120 Mg PO DAILY Actos (Pioglitazone Hcl) 15 Mg Tablet 15 Mg PO DAILY Mirtazapine 15 Mg Tablet 15 Mg PO QHS Haldol Decanoate 100 (Haloperidol Decanoate) 100 Mg/1 Ml Ampul 450 Mg IM Q4WK Klor-Con M20 (Potassium Chloride) 20 Meq Tab.er.prt 40 Meq PO BIDWMEALS Analgesic [place] (Methyl Salicylate/Menthol) 28 Gm Oint...g. 1 [place] TP PRN QID PRN Magnesium Oxide 400 Mg Tablet 400 Mg PO BID Milk Of Magnesia (Magnesium Hydroxide) 2,400 Mg/10 Ml Oral.susp 2,400 Mg PO PRN QHS PRN Maalox Advanced Suspension (Mag Hydrox/Aluminum Hyd/Simeth) 355 Ml Oral.susp 15 Ml PO PRN AFTMEALHC PRN D3-50 (Cholecalciferol (Vitamin D3)) 50,000 Unit Capsule 50,000 Unit PO QTH Clonazepam 1 Mg Tablet 1 Mg PO HS Furosemide 40 Mg Tablet 80 Mg PO [id number] Hold for SBP less than 100. After held dose, reassess in 2 hours. If SBP is above threshold, administer dose as ordered. If SBP is below threshold, contact provider for additional instructions. I have reviewed the current psychotropics carefully including drug interactions. Risk benefit ratio favors no change other than as noted in my dictated progress note. Diagnosis: Problems: (1) Hypokalemia (2) Altered mental status (3) Chronic kidney disease (4) Acute on chronic diastolic (congestive) heart failure (5) Acute and chronic respiratory failure with hypercapnia (6) Infiltrate of lower lobe of left lung present on imaging study (7) Depression (8) Schizoaffective disorder (9) Anxiety disorder (10) Impulse control disorder (11) DM type 2 (diabetes mellitus, type 2) (12) Chronic respiratory failure (13) Schizoaffective disorder, chronic condition with acute exacerbation (14) Hypoxia (15) Anemia (16) Dysphagia (17) B12 deficiency (18) Tremor (19) Lower extremity edema (20) Cellulitis KALIN STARKS MD Apr 04, 2018 23:00
--- NOTE | 2018-04-04 23:21 | PDOC2 ---
CONSULT Date of Admission DATE: 04/04/18 TIME: 23:21 Reason for Consult: Medical Management Referring Physician: Dr Feliz Source: Caregiver, Chart review, Patient History of Present Illness: 62/F with h/o chronic respiratory failure and hypoxia initially admitted to [facility] unit for behaviors required transfer to medical floor with respiratory distress. No clinical evidence of pneumonia, she responded to diuresis and actually according to staff familiar with her returned to her baseline respiratory/mental status. On the medical floor she refused echocardiogram and other treatments, and as she was observed to be at her baseline was transferred back up to the [facility] unit for further care. She continues to recognize me as a doctor although otherwise is confused. She requests food each time I see her, otherwise she denies any physical complaints. Staff reports no new or worsening respiratory symptoms. Cardiovascular: CHF Pulmonary: Other (chronic respiratory failure with hypoxia) CENTRAL NERVOUS SYSTEM: Dementia (tremors) Heme/Onc: Anemia NOS Musculoskeletal: Swelling Dermatology: Cellulitis Smoke: No ALCOHOL: none Drugs: None Domestic Violence: Neg Current Medications Current Medications Acetaminophen (Tylenol) 650 mg PRN Q6HRS PRN PO PAIN / TEMP; Start 04/03/18 at 16:45 Vitamin D (Vitamin D3) 50,000 unit QTH PO ; Start 04/10/18 at 16:00 Albuterol/ Ipratropium (Duoneb) 3 ml QID NEB Last administered on 04/04/18at 20: 17; Start 04/03/18 at 17:00 Multi-Ingredient Ointment (Analgesic Frost) 1 guanaco PRN QID PRN TP MUSCLE PAIN; Start 04/03/18 at 16:45 Nystatin (Nystop) 1 guanaco BID TP Last administered on 04/04/18at 19:45; Start 04/03/18 at 21:00 Potassium Chloride (Klor-Con) 40 meq BIDWMEALS PO Last administered on at 09:46; Start 04/03/18 at 17:00; Stop 04/04/18 at 11:51; Status DC Cefdinir (Omnicef) 300 mg BID PO ; Start 04/04/18 at 09:00; Stop 04/04/18 at 17: 55; Status DC Diltiazem HCl (Cardizem 24hr Cd) 120 mg DAILY PO Last administered on at 09:00; Start 04/04/18 at 09:00 Furosemide (Lasix) 80 mg BID92 PO Last administered on 04/04/18 09:46; Start 04/04/18 at 09:00; Stop 04/04/18 at 11:51; Status DC Al Hydroxide/Mg Hydroxide (Mylanta Plus Xs) 15 ml PRN AFTMEALHC PRN PO DYSPEPSIA; Start 04/03/18 at 17:00 Magnesium Hydroxide (Milk Of Magnesia) 2,400 mg PRN QHS PRN PO CONSTIPATION; Start 04/03/18 at 17:00 Magnesium Oxide (Magnesium Oxide) 400 mg BID PO Last administered on 04/04/18 19:43; Start 04/03/18 at 21:00 Metformin HCl (Glucophage) 500 mg BIDWMEALS PO Last administered on 04/04/18 09:48; Start 04/03/18 at 17:00; Stop 04/04/18 at 11:52; Status DC Metolazone (Zaroxolyn) 5 mg DAILY PO Last administered on 04/04/18 09:46; Start 04/04/18 at 09:00 Pioglitazone HCl (Actos) 15 mg DAILY PO Last administered on 04/04/18 09:46; Start 04/04/18 at 09:00 Insulin Human Lispro (HumaLOG) 0-9 UNITS TIDWMEALS SQ Last administered on 04/04 17:49; Start 04/03/18 at 17:00 Dextrose 12.5 gm PRN Q15MIN PRN IV SEE COMMENTS; Start 04/03/18 at 16:45 Clonazepam (KlonoPIN) 0.5 mg DAILY PO Last administered on 04/04/18 09:45; Start 04/04/18 at 09:00 Olanzapine (ZyPREXA ZYDIS) 5 mg PRN Q2HR PRN PO ANXIETY / AGITATION; Start 04/03/18 at 17:00 Buspirone HCl (Buspar) 20 mg BID PO Last administered on 04/04/18 19:48; Start 04/03/18 at 21:00 Clonazepam (KlonoPIN) 1 mg HS PO Last administered on 04/04/18 19:42; Start 04/03/18 at 21:00 Clozapine (Clozaril) 100 mg QHS PO Last administered on 04/04/18 19:42; Start 04/03/18 at 21:00 Divalproex Sodium (Depakote Er) 1,500 mg QHS PO Last administered on 04/04/18 19:43; Start 04/03/18 at 21:00 Divalproex Sodium (Depakote Er) 750 mg DAILY PO Last administered on 04/04/18 09:47; Start 04/04/18 at 09:00 Haloperidol Decanoate (Haldol Decanoate Im Extended Release) 450 mg Q4WK IM ; Start 05/01/18 at 09:00 Mirtazapine (Remeron) 15 mg QHS PO Last administered on 04/04/18 19:43; Start 04/03/18 at 21:00 Trazodone HCl (Desyrel) 25 mg TID@0900,1300,1700 PO Last administered on 17:51; Start 04/04/18 at 09:00 Trazodone HCl (Desyrel) 100 mg QHS PO Last administered on 04/04/18 19:43; Start 04/03/18 at 21:00 Trazodone HCl (Desyrel) 100 mg PRN QHS PRN PO INSOMNIA; Start 04/03/18 at 17:30 Clozapine (Clozaril) 75 mg QHS PO Last administered on 04/04/18 19:42; Start 04/03/18 at 21:00 Lactobacillus Rhamnosus (Culturelle) 1 cap BID PO Last administered on 19:48; Start 04/04/18 at 21:00 Furosemide (Lasix) 80 mg BID PO Last administered on 04/04/18 19:48; Start at 21:00 Metformin HCl (Glucophage) 500 mg BID PO Last administered on 04/04/18 19:48; Start 04/04/18 at 21:00 Potassium Chloride (Klor-Con) 40 meq BID PO Last administered on 04/04/18 19: 47; Start 04/04/18 at 21:00 Cefdinir (Omnicef) 300 mg BID PO Last administered on 04/04/18 19:44; Start 04/04/18 at 21:00; Stop 04/11/18 at 09:01 Active Scripts Active Cefdinir 300 Mg Capsule 1 Cap PO BID Reported Trazodone Hcl 100 Mg Tablet 1 Tab PO QHS Klonopin (Clonazepam) 0.5 Mg Tablet 1 Tab PO DAILY Clozaril (Clozapine) 100 Mg Tablet 175 Mg PO HS Depakote Er (Divalproex Sodium) 500 Mg Tab.er.24h 750 Mg PO DAILY Depakote Er (Divalproex Sodium) 500 Mg Tab.er.24h 1,500 Mg PO HS Nystatin 15 Gm Powder 1 Guanaco TP BID Duoneb 0.5-3(2.5) Mg/3 Ml (Albuterol/Ipratropium) 3 Ml Ampul.neb 3 Ml NEB QID Zyprexa Zydis (Olanzapine) 5 Mg Tab.rapdis 5 Mg PO PRN Q2HR PRN Novolog Flexpen (Insulin Aspart) 100 Unit/1 Ml Insuln.pen 0-9 Unit SQ TIDWMEALS <70 follow hypoglycemic protocol 70-150 0units if eating/ 0 if not eating 151-200 4 units if eating/ 0 units if not eating 201-250 5 units if eating/ 3 units if not eating 251-300 7 units if eating/ 4 units if not eating 301-350 9 units if eating/ 5 units if not eating > 351 Call Physician for futher orders Trazodone Hcl 100 Mg Tablet 100 Mg PO PRN QHS PRN Trazodone Hcl 50 Mg Tablet 25 Mg PO TID@0900,1300,1700 Tylenol (Acetaminophen) 325 Mg Tablet 650 Mg PO PRN Q6HRS PRN Buspirone Hcl 10 Mg Tablet 20 Mg PO BID Metolazone 5 Mg Tablet 5 Mg PO DAILY Metformin Hcl 500 Mg Tablet 500 Mg PO BIDWMEALS Cardizem Tablet (Diltiazem Hcl) 120 Mg Tablet 120 Mg PO DAILY Actos (Pioglitazone Hcl) 15 Mg Tablet 15 Mg PO DAILY Mirtazapine 15 Mg Tablet 15 Mg PO QHS Haldol Decanoate 100 (Haloperidol Decanoate) 100 Mg/1 Ml Ampul 450 Mg IM Q4WK Klor-Con M20 (Potassium Chloride) 20 Meq Tab.er.prt 40 Meq PO BIDWMEALS Analgesic Frost (Methyl Salicylate/Menthol) 28 Gm Oint...g. 1 Guanaco TP PRN QID PRN Magnesium Oxide 400 Mg Tablet 400 Mg PO BID Milk Of Magnesia (Magnesium Hydroxide) 2,400 Mg/10 Ml Oral.susp 2,400 Mg PO PRN QHS PRN Maalox Advanced Suspension (Mag Hydrox/Aluminum Hyd/Simeth) 355 Ml Oral.susp 15 Ml PO PRN AFTMEALHC PRN D3-50 (Cholecalciferol (Vitamin D3)) 50,000 Unit Capsule 50,000 Unit PO QTH Clonazepam 1 Mg Tablet 1 Mg PO HS Furosemide 40 Mg Tablet 80 Mg PO BID92 Hold for SBP less than 100. After held dose, reassess in 2 hours. If SBP is above threshold, administer dose as ordered. If SBP is below threshold, contact provider for additional instructions. Allergies: Coded Allergies: No Known Drug Allergies (Unverified , 11/25/15) Review of Systems: Constitutional: No fever or chills Eyes: No eye pain or blurred vision Skin: No rash or itching Cardiovascular: No chest pain, syncope, palpitations, dyspnea on exertion, or edema Respiratory: see HPI Gastrointestinal: No nausea, vomiting, or abdominal pain Neurologic: No headaches or focal neurologic deficits Endocrine: No heat or cold intolerance Genitourinary: No incontinence or hematuria Musculoskeletal: No joint pain or swelling other than HPI Lymphatics: No enlarged lymph nodes Psychiatric: No anxiety or depression Physical Exam: Gen.: I find her to be alert, continues to be pleasant and cooperative with me, no apparent distress HEENT: Normocephalic atraumatic no scleral icterus, oral mucosa pink and moist Neck: Supple, no lymphadenopathy, nontender Cardiovascular: Normal S1 and S2 no murmurs Pulmonary: Lungs are clear bilaterally with good air movement no respiratory distress Abdomen: Soft nontender non-distended, bowel sounds present no masses Extremities: No clubbing, cyanosis LE edema unchanged no new cellulitic changes Neuro: Alert and oriented 3, cranial nerves II through XII grossly intact, no lateralizing neuro deficits Skin: Warm, dry VITALS Vital Signs Date Time Temp Pulse Resp B/P (MAP) Pulse Ox O2 Delivery O2 Flow Rate FiO2 04/04/18 20:20 94 Room Air 04/04/18 16:05 97.8 73 16 114/71 (85) 04/04/18 06:28 1.0 Labs Laboratory Tests Test 04/03/18 16:44 04/03/18 19:24 04/04/18 16:24 Glucose (Fingerstick) 349 mg/dL (70-99) 346 mg/dL (70-99) 186 mg/dL (70-99) Assessment/Plan In general this patient is known to Dr Feliz and the [facility] unit, Dr Feliz has followed with her care while on the medical floor. Just finished very short ( two day) course of steroids which have undoubtedly affected her blood sugars, so will require monitoring and possible medication adjustment. Echocardiogram is available should patient become cooperative for study. Otherwise respiratory status appears to be at baseline and further treatment for patient' s underlying psychiatric issues per Dr Feliz. Per usual I thank you Dr Feliz for allowing me to participate in the care of your patient and we will follow and offer treatments as indicated. GOLDY ARBOLEDA DO Apr 04, 2018 23:21
[2018-04-05] MEDS: IPRATRPIUM/ALBUTEROL 0.5/2.5MG 3 ML NEBU. NEB SCH ×4 (05:57→20:14)
[2018-04-05 06:01] VITALS: BP 148/78
[2018-04-05] MEDS: INSULIN LISPRO 300 UNITS/3 ML INSULN.PEN. SQ SCH ×3 (08:18→17:20)
[2018-04-05] MEDS: PIOGLITAZONE 15 MG TABLET. PO SCH (08:35)
[2018-04-05] MEDS: busPIRone 10 MG TABLET. PO SCH ×2 (08:36→19:41)
[2018-04-05] MEDS: LACTOBACILLUS RHAMNOSUS GG 1 CAPSULE. PO SCH ×2 (08:39→19:41)
[2018-04-05] MEDS: traZODone 50 MG TABLET. PO SCH ×3 (08:40→17:26)
[2018-04-05] MEDS: metFORMIN 500 MG TABLET PO SCH ×2 (08:40→19:41)
[2018-04-05] MEDS: DIVALPROEX ER 250 MG TAB.ER.24H. PO SCH (08:40)
[2018-04-05] MEDS: MAGNESIUM OXIDE 400 MG TABLET PO SCH ×2 (08:41→19:42)
[2018-04-05] MEDS: POTASSIUM CHLORIDE 20 MEQ TABLET.ER. PO SCH ×2 (08:41→19:42)
[2018-04-05] MEDS: clonazePAM 0.5 MG TABLET PO SCH (08:41)
[2018-04-05] MEDS: FUROSEMIDE 40 MG TABLET PO SCH ×2 (08:41→19:42)
[2018-04-05] MEDS: NYSTATIN TOPICAL POWDER 15GM BOTTLE. TP SCH ×2 (08:42→19:49)
[2018-04-05] MEDS: CEFDINIR 300 MG CAPSULE PO SCH ×2 (08:42→19:49)
[2018-04-05] MEDS: metOLazone 5 MG TABLET PO SCH (08:42)
[2018-04-05 16:06] VITALS: BP 131/87
[2018-04-05] MEDS: traZODone 100 MG TABLET. PO SCH (19:41)
[2018-04-05] MEDS: DIVALPROEX ER 500 MG TAB.ER.24H PO SCH (19:42)
[2018-04-05] MEDS: cloZAPine 25 MG TABLET PO SCH (19:42)
[2018-04-05] MEDS: cloZAPine 100 MG TABLET PO SCH (19:42)
[2018-04-05] MEDS: clonazePAM 1 MG TABLET PO SCH (19:43)
[2018-04-05] MEDS: MIRTAZAPINE 15 MG TABLET PO SCH (19:43)
[2018-04-05] MEDS: INSULIN GLARGINE 300 UNITS/3 ML INSULN.PEN. SQ SCH (19:56)
--- NOTE | 2018-04-05 22:59 | PDOC ---
Exam Note: [place] Note: Please also refer to the separate dictated note~for this date of service dictated separately.~Patient seen individually. Discussed the patient with Nursing staff reviewed the chart.~Reviewed interim history and current functioning. Reviewed vital signs,~Labs/ Radiology~and current medications noted below. Continue current treatment with the changes noted in the dictated addendum note Assessment: Vital Signs: Vital Signs Date Time Temp Pulse Resp B/P (MAP) Pulse Ox O2 Delivery O2 Flow Rate FiO2 04/05/18 20:14 94 Room Air 04/05/18 16:06 98.4 93 18 131/87 (102) 04/04/18 06:28 1.0 I&O Intake and Output 04/05/18 07:00 Intake Total 1580 ml Balance 1580 ml Intake Oral 1580 ml Labs: Laboratory Tests Test 04/05/18 07:07 04/05/18 11:32 04/05/18 17:07 04/05/18 19:49 Glucose (Fingerstick) 387 mg/dL (70-99) H 238 mg/dL (70-99) H 190 mg/dL (70-99) H 173 mg/dL (70-99) H Current Medications: Meds: Current Medications Acetaminophen (Tylenol) 650 mg PRN Q6HRS PRN PO PAIN / TEMP; Start 04/03/18 at 16:45 Vitamin D (Vitamin D3) 50,000 unit QTH PO ; Start 04/10/18 at 16:00 Albuterol/ Ipratropium (Duoneb) 3 ml QID NEB Last administered on 04/05/18at 20 :14; Start 04/03/18 at 17:00 Multi-Ingredient Ointment (Analgesic Donner) 1 guanaco PRN QID PRN TP MUSCLE PAIN; Start 04/03/18 at 16:45 Nystatin (Nystop) 1 guanaco BID TP Last administered on 04/05/18at 19:49; Start at 21:00 Potassium Chloride (Klor-Con) 40 meq BIDWMEALS PO Last administered on at 09:46; Start 04/03/18 at 17:00; Stop 04/04/18 at 11:51; Status DC Cefdinir (Omnicef) 300 mg BID PO ; Start 04/04/18 at 09:00; Stop 04/04/18 at 17: 55; Status DC Diltiazem HCl (Cardizem 24hr Cd) 120 mg DAILY PO Last administered on at 08:39; Start 04/04/18 at 09:00 Furosemide (Lasix) 80 mg BID92 PO Last administered on 04/04/18at 09:46; Start 04/04/18 at 09:00; Stop 04/04/18 at 11:51; Status DC Al Hydroxide/Mg Hydroxide (Mylanta Plus Xs) 15 ml PRN AFTMEALHC PRN PO DYSPEPSIA; Start 04/03/18 at 17:00 Magnesium Hydroxide (Milk Of Magnesia) 2,400 mg PRN QHS PRN PO CONSTIPATION; Start 04/03/18 at 17:00 Magnesium Oxide (Magnesium Oxide) 400 mg BID PO Last administered on at 19:42; Start 04/03/18 at 21:00 Metformin HCl (Glucophage) 500 mg BIDWMEALS PO Last administered on 04/04/18at 09:48; Start 04/03/18 at 17:00; Stop 04/04/18 at 11:52; Status DC Metolazone (Zaroxolyn) 5 mg DAILY PO Last administered on 04/05/18at 08:42; Start 04/04/18 at 09:00 Pioglitazone HCl (Actos) 15 mg DAILY PO Last administered on 04/05/18at 08:35; Start 04/04/18 at 09:00 Insulin Human Lispro (HumaLOG) 0-9 UNITS TIDWMEALS SQ Last administered on 03/13at 17:20; Start 04/03/18 at 17:00 Dextrose 12.5 gm PRN Q15MIN PRN IV SEE COMMENTS; Start 04/03/18 at 16:45 Clonazepam (KlonoPIN) 0.5 mg DAILY PO Last administered on 04/05/18at 08:41; Start 04/04/18 at 09:00 Olanzapine (ZyPREXA ZYDIS) 5 mg PRN Q2HR PRN PO ANXIETY / AGITATION; Start 04/03/18 at 17:00 Buspirone HCl (Buspar) 20 mg BID PO Last administered on 04/05/18at 19:41; Start 04/03/18 at 21:00 Clonazepam (KlonoPIN) 1 mg HS PO Last administered on 04/05/18 19:43; Start 04/03/18 at 21:00 Clozapine (Clozaril) 100 mg QHS PO Last administered on 04/05/18 19:42; Start 04/03/18 at 21:00 Divalproex Sodium (Depakote Er) 1,500 mg QHS PO Last administered on 19:42; Start 04/03/18 at 21:00 Divalproex Sodium (Depakote Er) 750 mg DAILY PO Last administered on 08:40; Start 04/04/18 at 09:00 Haloperidol Decanoate (Haldol Decanoate Im Extended Release) 450 mg Q4WK IM ; Start 05/01/18 at 09:00; Stop 05/01/18 at 09:00; Status DC Mirtazapine (Remeron) 15 mg QHS PO Last administered on 04/05/18 19:43; Start 04/03/18 at 21:00 Trazodone HCl (Desyrel) 25 mg TID@0900,1300,1700 PO Last administered on 17:26; Start 04/04/18 at 09:00 Trazodone HCl (Desyrel) 100 mg QHS PO Last administered on 04/05/18 19:41; Start 04/03/18 at 21:00 Trazodone HCl (Desyrel) 100 mg PRN QHS PRN PO INSOMNIA; Start 04/03/18 at 17:30 Clozapine (Clozaril) 75 mg QHS PO Last administered on 04/05/18 19:42; Start 04/03/18 at 21:00 Lactobacillus Rhamnosus (Culturelle) 1 cap BID PO Last administered on 19:41; Start 04/04/18 at 21:00 Furosemide (Lasix) 80 mg BID PO Last administered on 04/05/18 19:42; Start 04/04/18 at 21:00 Metformin HCl (Glucophage) 500 mg BID PO Last administered on 04/05/18 19:41 ; Start 04/04/18 at 21:00 Potassium Chloride (Klor-Con) 40 meq BID PO Last administered on 04/05/18 19: 42; Start 04/04/18 at 21:00 Cefdinir (Omnicef) 300 mg BID PO Last administered on 04/05/18at 19:49; Start 04/04/18 at 21:00; Stop 04/11/18 at 09:01 Insulin Glargine (Lantus) 10 units QHS SQ Last administered on 04/05/18at 19:56 ; Start 04/05/18 at 21:00 Haloperidol Decanoate (Haldol Decanoate Im Extended Release) 450 mg Q4WK IM ; Start 04/07/18 at 09:00 Active Scripts Active Cefdinir 300 Mg Capsule 1 Cap PO BID Reported Trazodone Hcl 100 Mg Tablet 1 Tab PO QHS Klonopin (Clonazepam) 0.5 Mg Tablet 1 Tab PO DAILY Clozaril (Clozapine) 100 Mg Tablet 175 Mg PO HS Depakote Er (Divalproex Sodium) 500 Mg Tab.er.24h 750 Mg PO DAILY Depakote Er (Divalproex Sodium) 500 Mg Tab.er.24h 1,500 Mg PO HS Nystatin 15 Gm Powder 1 Guanaco TP BID Duoneb 0.5-3(2.5) Mg/3 Ml (Albuterol/Ipratropium) 3 Ml Ampul.neb 3 Ml NEB QID Zyprexa Zydis (Olanzapine) 5 Mg Tab.rapdis 5 Mg PO PRN Q2HR PRN Novolog Flexpen (Insulin Aspart) 100 Unit/1 Ml Insuln.pen 0-9 Unit SQ TIDWMEALS <70 follow hypoglycemic protocol 70-150 0units if eating/ 0 if not eating 151-200 4 units if eating/ 0 units if not eating 201-250 5 units if eating/ 3 units if not eating 251-300 7 units if eating/ 4 units if not eating 301-350 9 units if eating/ 5 units if not eating > 351 Call Physician for futher orders Trazodone Hcl 100 Mg Tablet 100 Mg PO PRN QHS PRN Trazodone Hcl 50 Mg Tablet 25 Mg PO TID@0900,1300,1700 Tylenol (Acetaminophen) 325 Mg Tablet 650 Mg PO PRN Q6HRS PRN Buspirone Hcl 10 Mg Tablet 20 Mg PO BID Metolazone 5 Mg Tablet 5 Mg PO DAILY Metformin Hcl 500 Mg Tablet 500 Mg PO BIDWMEALS Cardizem Tablet (Diltiazem Hcl) 120 Mg Tablet 120 Mg PO DAILY Actos (Pioglitazone Hcl) 15 Mg Tablet 15 Mg PO DAILY Mirtazapine 15 Mg Tablet 15 Mg PO QHS Haldol Decanoate 100 (Haloperidol Decanoate) 100 Mg/1 Ml Ampul 450 Mg IM Q4WK Klor-Con M20 (Potassium Chloride) 20 Meq Tab.er.prt 40 Meq PO BIDWMEALS Analgesic Donner (Methyl Salicylate/Menthol) 28 Gm Oint...g. 1 Guanaco TP PRN QID PRN Magnesium Oxide 400 Mg Tablet 400 Mg PO BID Milk Of Magnesia (Magnesium Hydroxide) 2,400 Mg/10 Ml Oral.susp 2,400 Mg PO PRN QHS PRN Maalox Advanced Suspension (Mag Hydrox/Aluminum Hyd/Simeth) 355 Ml Oral.susp 15 Ml PO PRN AFTMEALHC PRN D3-50 (Cholecalciferol (Vitamin D3)) 50,000 Unit Capsule 50,000 Unit PO QTH Clonazepam 1 Mg Tablet 1 Mg PO HS Furosemide 40 Mg Tablet 80 Mg PO [id number] Hold for SBP less than 100. After held dose, reassess in 2 hours. If SBP is above threshold, administer dose as ordered. If SBP is below threshold, contact provider for additional instructions. I have reviewed the current psychotropics carefully including drug interactions. Risk benefit ratio favors no change other than as noted in my dictated progress note. Diagnosis: Problems: (1) Hypokalemia (2) Altered mental status (3) Chronic kidney disease (4) Acute on chronic diastolic (congestive) heart failure (5) Acute and chronic respiratory failure with hypercapnia (6) Infiltrate of lower lobe of left lung present on imaging study (7) Depression (8) Schizoaffective disorder (9) Anxiety disorder (10) Impulse control disorder (11) DM type 2 (diabetes mellitus, type 2) (12) Chronic respiratory failure (13) Schizoaffective disorder, chronic condition with acute exacerbation (14) Hypoxia (15) Anemia (16) Dysphagia (17) B12 deficiency (18) Tremor (19) Lower extremity edema (20) Cellulitis KALIN STARKS MD Apr 05, 2018 22:59
[2018-04-06] MEDS: IPRATRPIUM/ALBUTEROL 0.5/2.5MG 3 ML NEBU. NEB SCH ×4 (05:26→20:32)
[2018-04-06 07:14] VITALS: BP 147/90
[2018-04-06] MEDS: INSULIN LISPRO 300 UNITS/3 ML INSULN.PEN. SQ SCH ×3 (08:04→17:38)
[2018-04-06] MEDS: busPIRone 10 MG TABLET. PO SCH ×2 (08:47→19:45)
[2018-04-06] MEDS: PIOGLITAZONE 15 MG TABLET. PO SCH (08:47)
[2018-04-06] MEDS: DIVALPROEX ER 250 MG TAB.ER.24H. PO SCH (08:48)
[2018-04-06] MEDS: LACTOBACILLUS RHAMNOSUS GG 1 CAPSULE. PO SCH ×2 (08:48→19:45)
[2018-04-06] MEDS: traZODone 50 MG TABLET. PO SCH ×3 (08:49→17:59)
[2018-04-06] MEDS: metFORMIN 500 MG TABLET PO SCH ×2 (08:49→19:44)
[2018-04-06] MEDS: clonazePAM 0.5 MG TABLET PO SCH (08:49)
[2018-04-06] MEDS: POTASSIUM CHLORIDE 20 MEQ TABLET.ER. PO SCH ×2 (08:49→19:46)
[2018-04-06] MEDS: NYSTATIN TOPICAL POWDER 15GM BOTTLE. TP SCH ×2 (08:50→19:56)
[2018-04-06] MEDS: CEFDINIR 300 MG CAPSULE PO SCH ×2 (08:50→19:48)
[2018-04-06] MEDS: MAGNESIUM OXIDE 400 MG TABLET PO SCH ×2 (08:50→19:46)
[2018-04-06] MEDS: FUROSEMIDE 40 MG TABLET PO SCH ×2 (08:50→19:44)
[2018-04-06] MEDS: metOLazone 5 MG TABLET PO SCH (08:50)
--- NOTE | 2018-04-06 12:40 | PN ---
DATE: 04/04/2018 PSYCHIATRIC PROGRESS NOTE This is a late entry 04/04/2018 covers elements not covered in my initial note. SUBJECTIVE: I met with the patient in the evening at length. Overall, per nursing report, she remains somewhat anxious, labile about the same. Less psychotic, less yelling. At times more compliant with the medications. REVIEW OF SYSTEMS: Ambulation impaired with walker. No CV, , pulmonary, eye, ENT system symptoms on review. Reliability poor. MENTAL STATUS EXAM: Oriented to herself and situation. Speech has some latency, coherent. Abstraction fair, computation impaired, language function intact. Mood and affect somewhat labile, but improved. LABORATORY DATA: Reviewed. IMPRESSION: Unchanged from initial note. PLAN: No change from initial note. Check CBC, ANC morning of 04/07/2018 and increase the Clozaril. MAN Mary STARKS MD DR: TRACIE/karli JOB#: [id number] / [id number]
[2018-04-06 16:14] VITALS: BP 110/74
--- NOTE | 2018-04-06 17:38 | PN ---
DATE: 04/05/2018 PSYCHIATRIC PROGRESS NOTE This late entry 04/05/2018 covers elements not covered in my initial note. SUBJECTIVE: I met with the patient in the evening. The patient slept 5 hours previous night. Blood sugars have been elevated. We will defer to Dr. Puga. At times, resistive of medications, hallucinating intermittently, but less yelling. REVIEW OF SYSTEMS: Ambulation impaired with walker. No CV, , pulmonary, eye, ENT system symptoms on review. Reliability varies. MENTAL STATUS EXAM: Oriented to herself and situation. Speech coherent, has some latency, smiling at me as I met with her. Abstraction fair. Computation, unable to do serial sevens; unable to spell world backward, able to spell it forward with 1 error. No active suicidal or homicidal ideation. Paranoia, delusions are better. LABORATORY DATA: Reviewed. IMPRESSION: Schizoaffective disorder, bipolar type, mixed with psychotic features, in partial remission; cognitive disorder, unspecified; anxiety disorder, unspecified. PLAN: No change from a psychiatric standpoint from initial note. We will increase Clozaril further post-labs on Saturday. MAN Mary STARKS MD DR: TRACIE/karli JOB#: [id number] / [id number]
[2018-04-06] MEDS: MIRTAZAPINE 15 MG TABLET PO SCH (19:45)
[2018-04-06] MEDS: DIVALPROEX ER 500 MG TAB.ER.24H PO SCH (19:45)
[2018-04-06] MEDS: cloZAPine 100 MG TABLET PO SCH (19:45)
[2018-04-06] MEDS: clonazePAM 1 MG TABLET PO SCH (19:46)
[2018-04-06] MEDS: traZODone 100 MG TABLET. PO SCH (19:46)
[2018-04-06] MEDS: cloZAPine 25 MG TABLET PO SCH (19:46)
[2018-04-06] MEDS: INSULIN GLARGINE 300 UNITS/3 ML INSULN.PEN. SQ SCH (19:55)
--- NOTE | 2018-04-06 22:59 | PDOC ---
Exam Note: Napoleon Note: Please also refer to the separate dictated note~for this date of service dictated separately.~Patient seen individually. Discussed the patient with Nursing staff reviewed the chart.~Reviewed interim history and current functioning. Reviewed vital signs,~Labs/ Radiology~and current medications noted below. Continue current treatment with the changes noted in the dictated addendum note Assessment: Vital Signs: Vital Signs Date Time Temp Pulse Resp B/P (MAP) Pulse Ox O2 Delivery O2 Flow Rate FiO2 04/06/18 20:35 94 Room Air 04/06/18 16:14 98.0 74 18 110/74 (86) 04/04/18 06:28 1.0 I&O Intake and Output 04/06/18 07:00 Intake Total 1140 ml Balance 1140 ml Intake Oral 1140 ml # Bowel Movements 2 Labs: Laboratory Tests Test 04/06/18 07:48 04/06/18 11:52 04/06/18 17:18 04/06/18 19:53 Glucose (Fingerstick) 171 mg/dL (70-99) H 249 mg/dL (70-99) H 197 mg/dL (70-99) H 253 mg/dL (70-99) H Current Medications: Meds: Current Medications Acetaminophen (Tylenol) 650 mg PRN Q6HRS PRN PO PAIN / TEMP; Start 04/03/18 at 16:45 Vitamin D (Vitamin D3) 50,000 unit QTH PO ; Start 04/10/18 at 16:00 Albuterol/ Ipratropium (Duoneb) 3 ml QID NEB Last administered on 04/06/18at 20 :32; Start 04/03/18 at 17:00 Multi-Ingredient Ointment (Analgesic [place]) 1 guanaco PRN QID PRN TP MUSCLE PAIN; Start 04/03/18 at 16:45 Nystatin (Nystop) 1 guanaco BID TP Last administered on 04/06/18at 19:56; Start at 21:00 Potassium Chloride (Klor-Con) 40 meq BIDWMEALS PO Last administered on at 09:46; Start 04/03/18 at 17:00; Stop 04/04/18 at 11:51; Status DC Cefdinir (Omnicef) 300 mg BID PO ; Start 04/04/18 at 09:00; Stop 04/04/18 at 17: 55; Status DC Diltiazem HCl (Cardizem 24hr Cd) 120 mg DAILY PO Last administered on at 08:48; Start 04/04/18 at 09:00 Furosemide (Lasix) 80 mg BID92 PO Last administered on 04/04/18at 09:46; Start 04/04/18 at 09:00; Stop 04/04/18 at 11:51; Status DC Al Hydroxide/Mg Hydroxide (Mylanta Plus Xs) 15 ml PRN AFTMEALHC PRN PO DYSPEPSIA; Start 04/03/18 at 17:00 Magnesium Hydroxide (Milk Of Magnesia) 2,400 mg PRN QHS PRN PO CONSTIPATION; Start 04/03/18 at 17:00 Magnesium Oxide (Magnesium Oxide) 400 mg BID PO Last administered on at 19:46; Start 04/03/18 at 21:00 Metformin HCl (Glucophage) 500 mg BIDWMEALS PO Last administered on 04/04/18at 09:48; Start 04/03/18 at 17:00; Stop 04/04/18 at 11:52; Status DC Metolazone (Zaroxolyn) 5 mg DAILY PO Last administered on 04/06/18at 08:50; Start 04/04/18 at 09:00 Pioglitazone HCl (Actos) 15 mg DAILY PO Last administered on 04/06/18at 08:47; Start 04/04/18 at 09:00 Insulin Human Lispro (HumaLOG) 0-9 UNITS TIDWMEALS SQ Last administered on 04/13at 17:38; Start 04/03/18 at 17:00 Dextrose 12.5 gm PRN Q15MIN PRN IV SEE COMMENTS; Start 04/03/18 at 16:45 Clonazepam (KlonoPIN) 0.5 mg DAILY PO Last administered on 04/06/18at 08:49; Start 04/04/18 at 09:00 Olanzapine (ZyPREXA ZYDIS) 5 mg PRN Q2HR PRN PO ANXIETY / AGITATION; Start 04/03/18 at 17:00 Buspirone HCl (Buspar) 20 mg BID PO Last administered on 04/06/18at 19:45; Start 04/03/18 at 21:00 Clonazepam (KlonoPIN) 1 mg HS PO Last administered on 04/06/18 19:46; Start 04/03/18 at 21:00 Clozapine (Clozaril) 100 mg QHS PO Last administered on 04/06/18 19:45; Start 04/03/18 at 21:00 Divalproex Sodium (Depakote Er) 1,500 mg QHS PO Last administered on 19:45; Start 04/03/18 at 21:00 Divalproex Sodium (Depakote Er) 750 mg DAILY PO Last administered on 08:48; Start 04/04/18 at 09:00 Haloperidol Decanoate (Haldol Decanoate Im Extended Release) 450 mg Q4WK IM ; Start 05/01/18 at 09:00; Stop 05/01/18 at 09:00; Status DC Mirtazapine (Remeron) 15 mg QHS PO Last administered on 04/06/18 19:45; Start 04/03/18 at 21:00 Trazodone HCl (Desyrel) 25 mg TID@0900,1300,1700 PO Last administered on 17:59; Start 04/04/18 at 09:00 Trazodone HCl (Desyrel) 100 mg QHS PO Last administered on 04/06/18 19:46; Start 04/03/18 at 21:00 Trazodone HCl (Desyrel) 100 mg PRN QHS PRN PO INSOMNIA; Start 04/03/18 at 17:30 Clozapine (Clozaril) 75 mg QHS PO Last administered on 04/06/18 19:46; Start 04/03/18 at 21:00 Lactobacillus Rhamnosus (Culturelle) 1 cap BID PO Last administered on 19:45; Start 04/04/18 at 21:00 Furosemide (Lasix) 80 mg BID PO Last administered on 04/06/18 19:44; Start 04/04/18 at 21:00 Metformin HCl (Glucophage) 500 mg BID PO Last administered on 04/06/18 19:44 ; Start 04/04/18 at 21:00 Potassium Chloride (Klor-Con) 40 meq BID PO Last administered on 04/06/18 19: 46; Start 04/04/18 at 21:00 Cefdinir (Omnicef) 300 mg BID PO Last administered on 04/06/18at 19:48; Start 04/04/18 at 21:00; Stop 04/11/18 at 09:01 Insulin Glargine (Lantus) 10 units QHS SQ Last administered on 04/06/18at 19:55 ; Start 04/05/18 at 21:00 Haloperidol Decanoate (Haldol Decanoate Im Extended Release) 450 mg Q4WK IM ; Start 04/07/18 at 09:00 Active Scripts Active Cefdinir 300 Mg Capsule 1 Cap PO BID Reported Trazodone Hcl 100 Mg Tablet 1 Tab PO QHS Klonopin (Clonazepam) 0.5 Mg Tablet 1 Tab PO DAILY Clozaril (Clozapine) 100 Mg Tablet 175 Mg PO HS Depakote Er (Divalproex Sodium) 500 Mg Tab.er.24h 750 Mg PO DAILY Depakote Er (Divalproex Sodium) 500 Mg Tab.er.24h 1,500 Mg PO HS Nystatin 15 Gm Powder 1 [place] TP BID Duoneb 0.5-3(2.5) Mg/3 Ml (Albuterol/Ipratropium) 3 Ml Ampul.neb 3 Ml NEB QID Zyprexa Zydis (Olanzapine) 5 Mg Tab.rapdis 5 Mg PO PRN Q2HR PRN Novolog Flexpen (Insulin Aspart) 100 Unit/1 Ml Insuln.pen 0-9 Unit SQ TIDWMEALS <70 follow hypoglycemic protocol 70-150 0units if eating/ 0 if not eating 151-200 4 units if eating/ 0 units if not eating 201-250 5 units if eating/ 3 units if not eating 251-300 7 units if eating/ 4 units if not eating 301-350 9 units if eating/ 5 units if not eating > 351 Call Physician for futher orders Trazodone Hcl 100 Mg Tablet 100 Mg PO PRN QHS PRN Trazodone Hcl 50 Mg Tablet 25 Mg PO TID@0900,1300,1700 Tylenol (Acetaminophen) 325 Mg Tablet 650 Mg PO PRN Q6HRS PRN Buspirone Hcl 10 Mg Tablet 20 Mg PO BID Metolazone 5 Mg Tablet 5 Mg PO DAILY Metformin Hcl 500 Mg Tablet 500 Mg PO BIDWMEALS Cardizem Tablet (Diltiazem Hcl) 120 Mg Tablet 120 Mg PO DAILY Actos (Pioglitazone Hcl) 15 Mg Tablet 15 Mg PO DAILY Mirtazapine 15 Mg Tablet 15 Mg PO QHS Haldol Decanoate 100 (Haloperidol Decanoate) 100 Mg/1 Ml Ampul 450 Mg IM Q4WK Klor-Con M20 (Potassium Chloride) 20 Meq Tab.er.prt 40 Meq PO BIDWMEALS Analgesic [place] (Methyl Salicylate/Menthol) 28 Gm Oint...g. 1 [place] TP PRN QID PRN Magnesium Oxide 400 Mg Tablet 400 Mg PO BID Milk Of Magnesia (Magnesium Hydroxide) 2,400 Mg/10 Ml Oral.susp 2,400 Mg PO PRN QHS PRN Maalox Advanced Suspension (Mag Hydrox/Aluminum Hyd/Simeth) 355 Ml Oral.susp 15 Ml PO PRN AFTMEALHC PRN D3-50 (Cholecalciferol (Vitamin D3)) 50,000 Unit Capsule 50,000 Unit PO QTH Clonazepam 1 Mg Tablet 1 Mg PO HS Furosemide 40 Mg Tablet 80 Mg PO [id number] Hold for SBP less than 100. After held dose, reassess in 2 hours. If SBP is above threshold, administer dose as ordered. If SBP is below threshold, contact provider for additional instructions. I have reviewed the current psychotropics carefully including drug interactions. Risk benefit ratio favors no change other than as noted in my dictated progress note. Diagnosis: Problems: (1) Hypokalemia (2) Altered mental status (3) Chronic kidney disease (4) Acute on chronic diastolic (congestive) heart failure (5) Acute and chronic respiratory failure with hypercapnia (6) Infiltrate of lower lobe of left lung present on imaging study (7) Depression (8) Schizoaffective disorder (9) Anxiety disorder (10) Impulse control disorder (11) DM type 2 (diabetes mellitus, type 2) (12) Chronic respiratory failure (13) Schizoaffective disorder, chronic condition with acute exacerbation (14) Hypoxia (15) Anemia (16) Dysphagia (17) B12 deficiency (18) Tremor (19) Lower extremity edema (20) Cellulitis KALIN STARKS MD Apr 06, 2018 22:59
[2018-04-07 06:23] VITALS: BP 108/55
[2018-04-07 07:23] LABS: BASO # 0.1 x10^3/uL (0.0-0.2); BASO % 1 % (0-3); EOS # 0.1 x10^3/uL (0.0-0.7); EOS % 1 % (0-3); HEMATOCRIT 40.6 % (36.0-47.0); LYMPH # 1.7 x10^3/uL (1.0-4.8); LYMPH % 27 % (24-48); MEAN CORPUSCULAR HEMOGLOBIN 28 pg (25-35); MEAN CORPUSCULAR HGB CONC 32 g/dL (31-37); MEAN CORPUSCULAR VOLUME 88 fL (79-100); MONO # 0.5 x10^3/uL (0.0-1.1); MONO % 7 % (0-9); NEUT # 4.1 x10^3uL (1.8-7.7); NEUT % 64 % (31-73); PLATELET COUNT 224 x10^3/uL (140-400); RED BLOOD COUNT 4.61 x10^6/uL (3.50-5.40); RED CELL DISTRIBUTION WIDTH 16.1 % (11.5-14.5); WHITE BLOOD COUNT 6.4 x10^3/uL (4.0-11.0)
[2018-04-07 07:31] LABS: ALBUMIN 2.7 g/dL (3.4-5.0); ALBUMIN/GLOBULIN RATIO 0.5 (1.0-1.7); CALCIUM 9.9 mg/dL (8.5-10.1); CREATININE 1.2 mg/dL (0.6-1.0); GFR 54.9; MAGNESIUM 2.2 mg/dL (1.8-2.4); POTASSIUM 3.7 mmol/L (3.5-5.1); TOTAL BILIRUBIN 0.1 mg/dL (0.2-1.0); TOTAL PROTEIN 8.1 g/dL (6.4-8.2)
[2018-04-07] MEDS: IPRATRPIUM/ALBUTEROL 0.5/2.5MG 3 ML NEBU. NEB SCH ×4 (09:00→20:19)
[2018-04-07] MEDS: metOLazone 5 MG TABLET PO SCH (09:00)
[2018-04-07] MEDS ORDERED: HALOPERIDOL DECANOATE IM ER 100 MG/ML VIAL. IM SCH ×2 (09:00→21:00)
[2018-04-07] MEDS: PIOGLITAZONE 15 MG TABLET. PO SCH (09:43)
[2018-04-07] MEDS: INSULIN LISPRO 300 UNITS/3 ML INSULN.PEN. SQ SCH ×3 (09:43→17:57)
[2018-04-07] MEDS: LACTOBACILLUS RHAMNOSUS GG 1 CAPSULE. PO SCH ×2 (09:44→21:37)
[2018-04-07] MEDS: busPIRone 10 MG TABLET. PO SCH ×2 (09:44→21:36)
[2018-04-07] MEDS: POTASSIUM CHLORIDE 20 MEQ TABLET.ER. PO SCH ×2 (09:45→21:37)
[2018-04-07] MEDS: FUROSEMIDE 40 MG TABLET PO SCH ×2 (09:45→21:37)
[2018-04-07] MEDS: traZODone 50 MG TABLET. PO SCH ×3 (09:45→17:58)
[2018-04-07] MEDS: DIVALPROEX ER 250 MG TAB.ER.24H. PO SCH (09:45)
[2018-04-07] MEDS: MAGNESIUM OXIDE 400 MG TABLET PO SCH ×2 (09:46→21:37)
[2018-04-07] MEDS: metFORMIN 500 MG TABLET PO SCH ×2 (09:46→21:37)
[2018-04-07] MEDS: NYSTATIN TOPICAL POWDER 15GM BOTTLE. TP SCH ×2 (09:47→22:36)
[2018-04-07] MEDS: clonazePAM 0.5 MG TABLET PO SCH (09:47)
[2018-04-07] MEDS: CEFDINIR 300 MG CAPSULE PO SCH ×2 (09:48→21:42)
[2018-04-07 16:19] VITALS: BP 122/76
--- NOTE | 2018-04-07 20:57 | PN ---
DATE: 04/06/2018 PSYCHIATRIC PROGRESS NOTE This late entry 04/06/2018 covers elements not covered in my initial note. SUBJECTIVE: I met with the patient in the evening. The patient slept 6 hours previous night. She did well the previous night and during the day 04/06/2018, attended groups. Nursing staff had gotten her some gifts as reward from outside and she seems to respond positively to this. REVIEW OF SYSTEMS: Ambulation impaired with walker. No CV, , pulmonary, eye, ENT system symptoms on review. MENTAL STATUS EXAM: Oriented to herself and situation. Speech is coherent, abstraction fair, computation impaired, language function intact, attention span short. Mood and affect less labile. LABORATORY DATA: Reviewed. IMPRESSION: Schizoaffective disorder, bipolar type; cognitive disorder, unspecified. PLAN: Continue psychotropics from initial note. Check labs and absolute neutrophil count 04/07/2018, then increase Clozaril. MAN Mary STARKS MD DR: TRACIE/karli JOB#: [id number] / [id number]
[2018-04-07] MEDS: DIVALPROEX ER 500 MG TAB.ER.24H PO SCH (21:36)
[2018-04-07] MEDS: MIRTAZAPINE 15 MG TABLET PO SCH (21:37)
[2018-04-07] MEDS: traZODone 100 MG TABLET. PO SCH (21:37)
[2018-04-07] MEDS: cloZAPine 100 MG TABLET PO SCH (21:39)
[2018-04-07] MEDS: clonazePAM 1 MG TABLET PO SCH (21:40)
[2018-04-07] MEDS: INSULIN GLARGINE 300 UNITS/3 ML INSULN.PEN. SQ SCH (22:35)
--- NOTE | 2018-04-07 23:15 | PDOC ---
Exam Note: Napoleon Note: Please also refer to the separate dictated note~for this date of service dictated separately.~Patient seen individually. Discussed the patient with Nursing staff reviewed the chart.~Reviewed interim history and current functioning. Reviewed vital signs,~Labs/ Radiology~and current medications noted below. Continue current treatment with the changes noted in the dictated addendum note Assessment: Vital Signs: Vital Signs Date Time Temp Pulse Resp B/P (MAP) Pulse Ox O2 Delivery O2 Flow Rate FiO2 04/07/18 20:20 92 Room Air 04/07/18 16:19 98.4 92 22 122/76 (91) 04/04/18 06:28 1.0 I&O Intake and Output 04/07/18 07:00 Intake Total 840 ml Balance 840 ml Intake Oral 840 ml Labs: Laboratory Tests Test 04/07/18 07:08 04/07/18 07:27 04/07/18 12:31 04/07/18 17:24 White Blood Count 6.4 x10^3/uL (4.0-11.0) Red Blood Count 4.61 x10^6/uL (3.50-5.40) Hemoglobin 13.0 g/dL (12.0-15.5) Hematocrit 40.6 % (36.0-47.0) Mean Corpuscular Volume 88 fL (79-100) Mean Corpuscular Hemoglobin 28 pg (25-35) Mean Corpuscular Hemoglobin Concent 32 g/dL (31-37) Red Cell Distribution Width 16.1 % (11.5-14.5) H Platelet Count 224 x10^3/uL (140-400) Neutrophils (%) (Auto) 64 % (31-73) Lymphocytes (%) (Auto) 27 % (24-48) Monocytes (%) (Auto) 7 % (0-9) Eosinophils (%) (Auto) 1 % (0-3) Basophils (%) (Auto) 1 % (0-3) Neutrophils # (Auto) 4.1 x10^3uL (1.8-7.7) Lymphocytes # (Auto) 1.7 x10^3/uL (1.0-4.8) Monocytes # (Auto) 0.5 x10^3/uL (0.0-1.1) Eosinophils # (Auto) 0.1 x10^3/uL (0.0-0.7) Basophils # (Auto) 0.1 x10^3/uL (0.0-0.2) Sodium Level 137 mmol/L (136-145) Potassium Level 3.7 mmol/L (3.5-5.1) Chloride Level 93 mmol/L (98-107) L Carbon Dioxide Level 39 mmol/L (21-32) H Anion Gap 5 (6-14) L Blood Urea Nitrogen 38 mg/dL (7-20) H Creatinine 1.2 mg/dL (0.6-1.0) H Estimated GFR (Cockcroft-Gault) 54.9 BUN/Creatinine Ratio 32 (6-20) H Glucose Level 154 mg/dL (70-99) H Calcium Level 9.9 mg/dL (8.5-10.1) Magnesium Level 2.2 mg/dL (1.8-2.4) Total Bilirubin 0.1 mg/dL (0.2-1.0) L Aspartate Amino Transferase (AST) 12 U/L (15-37) L Alanine Aminotransferase (ALT) 15 U/L (14-59) Alkaline Phosphatase 99 U/L (46-116) Total Protein 8.1 g/dL (6.4-8.2) Albumin 2.7 g/dL (3.4-5.0) L Albumin/Globulin Ratio 0.5 (1.0-1.7) L Glucose (Fingerstick) 146 mg/dL (70-99) H 140 mg/dL (70-99) H 191 mg/dL (70-99) H Test 04/07/18 19:45 Glucose (Fingerstick) 188 mg/dL (70-99) H Current Medications: Meds: Current Medications Acetaminophen (Tylenol) 650 mg PRN Q6HRS PRN PO PAIN / TEMP; Start 04/03/18 at 16:45 Vitamin D (Vitamin D3) 50,000 unit QTH PO ; Start 04/10/18 at 16:00 Albuterol/ Ipratropium (Duoneb) 3 ml QID NEB Last administered on 04/07/18at 20 :19; Start 04/03/18 at 17:00 Multi-Ingredient Ointment (Analgesic [place]) 1 guanaco PRN QID PRN TP MUSCLE PAIN; Start 04/03/18 at 16:45 Nystatin (Nystop) 1 guanaco BID TP Last administered on 04/07/18at 22:36; Start at 21:00 Potassium Chloride (Klor-Con) 40 meq BIDWMEALS PO Last administered on at 09:46; Start 04/03/18 at 17:00; Stop 04/04/18 at 11:51; Status DC Cefdinir (Omnicef) 300 mg BID PO ; Start 04/04/18 at 09:00; Stop 04/04/18 at 17: 55; Status DC Diltiazem HCl (Cardizem 24hr Cd) 120 mg DAILY PO Last administered on at 08:48; Start 04/04/18 at 09:00 Furosemide (Lasix) 80 mg BID92 PO Last administered on 04/04/18at 09:46; Start 04/04/18 at 09:00; Stop 04/04/18 at 11:51; Status DC Al Hydroxide/Mg Hydroxide (Mylanta Plus Xs) 15 ml PRN AFTMEALHC PRN PO DYSPEPSIA; Start 04/03/18 at 17:00 Magnesium Hydroxide (Milk Of Magnesia) 2,400 mg PRN QHS PRN PO CONSTIPATION; Start 04/03/18 at 17:00 Magnesium Oxide (Magnesium Oxide) 400 mg BID PO Last administered on at 21:37; Start 04/03/18 at 21:00 Metformin HCl (Glucophage) 500 mg BIDWMEALS PO Last administered on 04/04/18at 09:48; Start 04/03/18 at 17:00; Stop 04/04/18 at 11:52; Status DC Metolazone (Zaroxolyn) 5 mg DAILY PO Last administered on 04/06/18at 08:50; Start 04/04/18 at 09:00 Pioglitazone HCl (Actos) 15 mg DAILY PO Last administered on 04/07/18at 09:43; Start 04/04/18 at 09:00 Insulin Human Lispro (HumaLOG) 0-9 UNITS TIDWMEALS SQ Last administered on 05/13at 17:57; Start 04/03/18 at 17:00 Dextrose 12.5 gm PRN Q15MIN PRN IV SEE COMMENTS; Start 04/03/18 at 16:45 Clonazepam (KlonoPIN) 0.5 mg DAILY PO Last administered on 04/07/18 09:47; Start 04/04/18 at 09:00 Olanzapine (ZyPREXA ZYDIS) 5 mg PRN Q2HR PRN PO ANXIETY / AGITATION; Start 04/03/18 at 17:00 Buspirone HCl (Buspar) 20 mg BID PO Last administered on 04/07/18 21:36; Start 04/03/18 at 21:00 Clonazepam (KlonoPIN) 1 mg HS PO Last administered on 04/07/18 21:40; Start 04/03/18 at 21:00 Clozapine (Clozaril) 100 mg QHS PO Last administered on 04/06/18 19:45; Start 04/03/18 at 21:00; Stop 04/07/18 at 14:59; Status DC Divalproex Sodium (Depakote Er) 1,500 mg QHS PO Last administered on 21:36; Start 04/03/18 at 21:00 Divalproex Sodium (Depakote Er) 750 mg DAILY PO Last administered on 09:45; Start 04/04/18 at 09:00 Haloperidol Decanoate (Haldol Decanoate Im Extended Release) 450 mg Q4WK IM ; Start 05/01/18 at 09:00; Stop 05/01/18 at 09:00; Status DC Mirtazapine (Remeron) 15 mg QHS PO Last administered on 04/07/18 21:37; Start 04/03/18 at 21:00 Trazodone HCl (Desyrel) 25 mg TID@0900,1300,1700 PO Last administered on 17:58; Start 04/04/18 at 09:00 Trazodone HCl (Desyrel) 100 mg QHS PO Last administered on 04/07/18 21:37; Start 04/03/18 at 21:00 Trazodone HCl (Desyrel) 100 mg PRN QHS PRN PO INSOMNIA; Start 04/03/18 at 17:30 Clozapine (Clozaril) 75 mg QHS PO Last administered on 04/06/18 19:46; Start 04/03/18 at 21:00; Stop 04/07/18 at 14:59; Status DC Lactobacillus Rhamnosus (Culturelle) 1 cap BID PO Last administered on at 21:37; Start 04/04/18 at 21:00 Furosemide (Lasix) 80 mg BID PO Last administered on 04/07/18 21:37; Start 04/04/18 at 21:00 Metformin HCl (Glucophage) 500 mg BID PO Last administered on 04/07/18 21:37 ; Start 04/04/18 at 21:00 Potassium Chloride (Klor-Con) 40 meq BID PO Last administered on 04/07/18 21: 37; Start 04/04/18 at 21:00 Cefdinir (Omnicef) 300 mg BID PO Last administered on 04/07/18at 21:42; Start 04/04/18 at 21:00; Stop 04/11/18 at 09:01 Insulin Glargine (Lantus) 10 units QHS SQ Last administered on 04/06/18at 19:55 ; Start 04/05/18 at 21:00; Stop 04/07/18 at 11:15; Status DC Haloperidol Decanoate (Haldol Decanoate Im Extended Release) 450 mg Q4WK IM ; Start 04/07/18 at 09:00; Stop 04/07/18 at 14:59; Status DC Insulin Glargine (Lantus) 12 units QHS SQ Last administered on 04/07/18at 22:35 ; Start 04/07/18 at 21:00 Clozapine (Clozaril) 200 mg QHS PO Last administered on 04/07/18at 21:39; Start 04/07/18 at 21:00 Haloperidol Decanoate (Haldol Decanoate Im Extended Release) 200 mg Q4WK IM Last administered on 04/07/18at 21:52; Start 04/07/18 at 21:00 Active Scripts Active Cefdinir 300 Mg Capsule 1 Cap PO BID Reported Trazodone Hcl 100 Mg Tablet 1 Tab PO QHS Klonopin (Clonazepam) 0.5 Mg Tablet 1 Tab PO DAILY Clozaril (Clozapine) 100 Mg Tablet 175 Mg PO HS Depakote Er (Divalproex Sodium) 500 Mg Tab.er.24h 750 Mg PO DAILY Depakote Er (Divalproex Sodium) 500 Mg Tab.er.24h 1,500 Mg PO HS Nystatin 15 Gm Powder 1 [place] TP BID Duoneb 0.5-3(2.5) Mg/3 Ml (Albuterol/Ipratropium) 3 Ml Ampul.neb 3 Ml NEB QID Zyprexa Zydis (Olanzapine) 5 Mg Tab.rapdis 5 Mg PO PRN Q2HR PRN Novolog Flexpen (Insulin Aspart) 100 Unit/1 Ml Insuln.pen 0-9 Unit SQ TIDWMEALS <70 follow hypoglycemic protocol 70-150 0units if eating/ 0 if not eating 151-200 4 units if eating/ 0 units if not eating 201-250 5 units if eating/ 3 units if not eating 251-300 7 units if eating/ 4 units if not eating 301-350 9 units if eating/ 5 units if not eating > 351 Call Physician for futher orders Trazodone Hcl 100 Mg Tablet 100 Mg PO PRN QHS PRN Trazodone Hcl 50 Mg Tablet 25 Mg PO TID@0900,1300,1700 Tylenol (Acetaminophen) 325 Mg Tablet 650 Mg PO PRN Q6HRS PRN Buspirone Hcl 10 Mg Tablet 20 Mg PO BID Metolazone 5 Mg Tablet 5 Mg PO DAILY Metformin Hcl 500 Mg Tablet 500 Mg PO BIDWMEALS Cardizem Tablet (Diltiazem Hcl) 120 Mg Tablet 120 Mg PO DAILY Actos (Pioglitazone Hcl) 15 Mg Tablet 15 Mg PO DAILY Mirtazapine 15 Mg Tablet 15 Mg PO QHS Haldol Decanoate 100 (Haloperidol Decanoate) 100 Mg/1 Ml Ampul 450 Mg IM Q4WK Klor-Con M20 (Potassium Chloride) 20 Meq Tab.er.prt 40 Meq PO BIDWMEALS Analgesic [place] (Methyl Salicylate/Menthol) 28 Gm Oint...g. 1 [place] TP PRN QID PRN Magnesium Oxide 400 Mg Tablet 400 Mg PO BID Milk Of Magnesia (Magnesium Hydroxide) 2,400 Mg/10 Ml Oral.susp 2,400 Mg PO PRN QHS PRN Maalox Advanced Suspension (Mag Hydrox/Aluminum Hyd/Simeth) 355 Ml Oral.susp 15 Ml PO PRN AFTMEALHC PRN D3-50 (Cholecalciferol (Vitamin D3)) 50,000 Unit Capsule 50,000 Unit PO QTH Clonazepam 1 Mg Tablet 1 Mg PO HS Furosemide 40 Mg Tablet 80 Mg PO [id number] Hold for SBP less than 100. After held dose, reassess in 2 hours. If SBP is above threshold, administer dose as ordered. If SBP is below threshold, contact provider for additional instructions. I have reviewed the current psychotropics carefully including drug interactions. Risk benefit ratio favors no change other than as noted in my dictated progress note. Diagnosis: Problems: (1) Hypokalemia (2) Altered mental status (3) Chronic kidney disease (4) Acute on chronic diastolic (congestive) heart failure (5) Acute and chronic respiratory failure with hypercapnia (6) Infiltrate of lower lobe of left lung present on imaging study (7) Depression (8) Schizoaffective disorder (9) Anxiety disorder (10) Impulse control disorder (11) DM type 2 (diabetes mellitus, type 2) (12) Chronic respiratory failure (13) Schizoaffective disorder, chronic condition with acute exacerbation (14) Hypoxia (15) Anemia (16) Dysphagia (17) B12 deficiency (18) Tremor (19) Lower extremity edema (20) Cellulitis KALIN STARKS MD Apr 07, 2018 23:15
[2018-04-08] MEDS: IPRATRPIUM/ALBUTEROL 0.5/2.5MG 3 ML NEBU. NEB SCH ×4 (05:44→20:16)
[2018-04-08 05:59] VITALS: BP 141/85
[2018-04-08] MEDS: INSULIN LISPRO 300 UNITS/3 ML INSULN.PEN. SQ SCH ×3 (07:52→17:01)
[2018-04-08] MEDS: busPIRone 10 MG TABLET. PO SCH ×2 (07:53→19:22)
[2018-04-08] MEDS: LACTOBACILLUS RHAMNOSUS GG 1 CAPSULE. PO SCH ×2 (07:53→19:22)
[2018-04-08] MEDS: DIVALPROEX ER 500 MG TAB.ER.24H PO SCH (07:54)
[2018-04-08] MEDS: metFORMIN 500 MG TABLET PO SCH ×2 (07:55→19:22)
[2018-04-08] MEDS: clonazePAM 0.5 MG TABLET PO SCH (07:55)
[2018-04-08] MEDS: traZODone 50 MG TABLET. PO SCH ×3 (07:55→17:01)
[2018-04-08] MEDS: POTASSIUM CHLORIDE 20 MEQ TABLET.ER. PO SCH ×2 (07:56→19:21)
[2018-04-08] MEDS: FUROSEMIDE 40 MG TABLET PO SCH ×2 (07:56→19:23)
[2018-04-08] MEDS: MAGNESIUM OXIDE 400 MG TABLET PO SCH ×2 (07:56→19:22)
[2018-04-08] MEDS: metOLazone 5 MG TABLET PO SCH (07:57)
[2018-04-08] MEDS: CEFDINIR 300 MG CAPSULE PO SCH ×2 (07:57→19:42)
[2018-04-08] MEDS: DIVALPROEX ER 250 MG TAB.ER.24H. PO SCH (07:58)
[2018-04-08] MEDS: NYSTATIN TOPICAL POWDER 15GM BOTTLE. TP SCH ×2 (07:58→21:00)
[2018-04-08] MEDS: PIOGLITAZONE 15 MG TABLET. PO SCH (08:04)
[2018-04-08 15:36] VITALS: BP 117/78
[2018-04-08] MEDS: MIRTAZAPINE 15 MG TABLET PO SCH (19:22)
[2018-04-08] MEDS: traZODone 100 MG TABLET. PO SCH (19:41)
[2018-04-08] MEDS: cloZAPine 100 MG TABLET PO SCH (19:41)
[2018-04-08] MEDS: clonazePAM 1 MG TABLET PO SCH (19:41)
--- NOTE | 2018-04-08 21:13 | PN ---
DATE: 04/07/2018 PSYCHIATRIC PROGRESS NOTE This is a late entry 04/07/2018, covers elements not covered in my initial note. SUBJECTIVE: I met with the patient in the early afternoon. The patient slept 6-1/4 hours previous evening. Per nursing report, she seems to be doing better with improved mood lability, more compliant with the psychotropics so long as she gets a verbal positive feedback from nursing staff for this and some tangible rewards. REVIEW OF SYSTEMS: Ambulation impaired with walker. No CV, , pulmonary, eye, ENT system symptoms on review. MENTAL STATUS EXAM: Oriented to herself and situation. Speech is coherent, has some latency. Abstraction fair. Computation impaired. Language function intact. Attention span short. Mood and affect, lability persists, but much improved. No active suicidal or homicidal ideation. No active psychotic symptoms as I carefully assessed her labs. LABORATORY DATA: Absolute neutrophil count is 4096 with WBC 6.4 with 64% polymorphs. IMPRESSION: Schizoaffective disorder, bipolar type, mixed with psychotic features; cognitive disorder, unspecified; anxiety disorder, unspecified; impulse control disorder, unspecified. PLAN: We will go ahead and increase the Clozaril from 175 at bedtime to 200 mg at bedtime. She is due for Haldol Decanoate monthly short on 04/07/2018, which is currently at 450 mg monthly and we will reduce it down to 200 mg monthly, as the Clozaril is reaching a reasonable therapeutic dosage. Rest unchanged and down the road the scheduled Klonopin and scheduled trazodone during the day could be gradually reduced, but we will have to do it in very gentle increments. 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 She came to us on extremely large dosages of psychotropics. I feel we made a very significant improvement in trying to get her on Clozaril, which so far seems to be helping and we will gradually reduced some of the other psychotropics to reduce the potential side effects. She has had an extensive long stay in the hospital, but I believe very strongly that had we not done this, she would have ended up staying on extremely large dosages of antipsychotics and still relapsing. It is not to say that some of the relapse may not happen again, but we are doing the best we can to help mitigate this and hopefully we have done some reasonable good in this process for her. MAN Mary STARKS MD DR: TRACIE/karli JOB#: [id number] / [id number]
[2018-04-08] MEDS: INSULIN GLARGINE 300 UNITS/3 ML INSULN.PEN. SQ SCH (21:48)
--- NOTE | 2018-04-08 22:49 | PDOC ---
Exam Note: Napoleon Note: Please also refer to the separate dictated note~for this date of service dictated separately.~Patient seen individually. Discussed the patient with Nursing staff reviewed the chart.~Reviewed interim history and current functioning. Reviewed vital signs,~Labs/ Radiology~and current medications noted below. Continue current treatment with the changes noted in the dictated addendum note Assessment: Vital Signs: Vital Signs Date Time Temp Pulse Resp B/P (MAP) Pulse Ox O2 Delivery O2 Flow Rate FiO2 04/08/18 19:55 96 Room Air 04/08/18 15:36 97.0 80 16 117/78 (91) 04/04/18 06:28 1.0 I&O Intake and Output 04/08/18 07:00 Intake Total 720 ml Balance 720 ml Intake Oral 720 ml # Bowel Movements 1 Labs: Laboratory Tests Test 04/08/18 07:33 04/08/18 12:25 04/08/18 16:48 04/08/18 19:18 Glucose (Fingerstick) 133 mg/dL (70-99) H 69 mg/dL (70-99) L 118 mg/dL (70-99) H 114 mg/dL (70-99) H Test 04/08/18 21:43 Glucose (Fingerstick) 137 mg/dL (70-99) H Current Medications: Meds: Current Medications Acetaminophen (Tylenol) 650 mg PRN Q6HRS PRN PO PAIN / TEMP; Start 04/03/18 at 16:45 Vitamin D (Vitamin D3) 50,000 unit QTH PO ; Start 04/10/18 at 16:00 Albuterol/ Ipratropium (Duoneb) 3 ml QID NEB Last administered on 04/08/18at 20 :16; Start 04/03/18 at 17:00 Multi-Ingredient Ointment (Analgesic Elida) 1 guanaco PRN QID PRN TP MUSCLE PAIN; Start 04/03/18 at 16:45 Nystatin (Nystop) 1 guanaco BID TP Last administered on 04/08/18at 07:58; Start at 21:00 Potassium Chloride (Klor-Con) 40 meq BIDWMEALS PO Last administered on at 09:46; Start 04/03/18 at 17:00; Stop 04/04/18 at 11:51; Status DC Cefdinir (Omnicef) 300 mg BID PO ; Start 04/04/18 at 09:00; Stop 04/04/18 at 17: 55; Status DC Diltiazem HCl (Cardizem 24hr Cd) 120 mg DAILY PO Last administered on at 08:02; Start 04/04/18 at 09:00 Furosemide (Lasix) 80 mg BID92 PO Last administered on 04/04/18 09:46; Start 04/04/18 at 09:00; Stop 04/04/18 at 11:51; Status DC Al Hydroxide/Mg Hydroxide (Mylanta Plus Xs) 15 ml PRN AFTMEALHC PRN PO DYSPEPSIA; Start 04/03/18 at 17:00 Magnesium Hydroxide (Milk Of Magnesia) 2,400 mg PRN QHS PRN PO CONSTIPATION; Start 04/03/18 at 17:00 Magnesium Oxide (Magnesium Oxide) 400 mg BID PO Last administered on 19:22; Start 04/03/18 at 21:00 Metformin HCl (Glucophage) 500 mg BIDWMEALS PO Last administered on 04/04/18at 09:48; Start 04/03/18 at 17:00; Stop 04/04/18 at 11:52; Status DC Metolazone (Zaroxolyn) 5 mg DAILY PO Last administered on 04/08/18 07:57; Start 04/04/18 at 09:00 Pioglitazone HCl (Actos) 15 mg DAILY PO Last administered on 04/08/18 08:04; Start 04/04/18 at 09:00 Insulin Human Lispro (HumaLOG) 0-9 UNITS TIDWMEALS SQ Last administered on at 17:01; Start 04/03/18 at 17:00 Dextrose 12.5 gm PRN Q15MIN PRN IV SEE COMMENTS; Start 04/03/18 at 16:45 Clonazepam (KlonoPIN) 0.5 mg DAILY PO Last administered on 04/08/18at 07:55; Start 04/04/18 at 09:00 Olanzapine (ZyPREXA ZYDIS) 5 mg PRN Q2HR PRN PO ANXIETY / AGITATION; Start 04/03/18 at 17:00 Buspirone HCl (Buspar) 20 mg BID PO Last administered on 04/08/18 19:22; Start 04/03/18 at 21:00 Clonazepam (KlonoPIN) 1 mg HS PO Last administered on 04/08/18 19:41; Start 04/03/18 at 21:00 Clozapine (Clozaril) 100 mg QHS PO Last administered on 04/06/18 19:45; Start 04/03/18 at 21:00; Stop 04/07/18 at 14:59; Status DC Divalproex Sodium (Depakote Er) 1,500 mg QHS PO Last administered on 07:54; Start 04/03/18 at 21:00 Divalproex Sodium (Depakote Er) 750 mg DAILY PO Last administered on 07:58; Start 04/04/18 at 09:00 Haloperidol Decanoate (Haldol Decanoate Im Extended Release) 450 mg Q4WK IM ; Start 05/01/18 at 09:00; Stop 05/01/18 at 09:00; Status DC Mirtazapine (Remeron) 15 mg QHS PO Last administered on 04/08/18 19:22; Start 04/03/18 at 21:00 Trazodone HCl (Desyrel) 25 mg TID@0900,1300,1700 PO Last administered on 17:01; Start 04/04/18 at 09:00 Trazodone HCl (Desyrel) 100 mg QHS PO Last administered on 04/08/18 19:41; Start 04/03/18 at 21:00 Trazodone HCl (Desyrel) 100 mg PRN QHS PRN PO INSOMNIA; Start 04/03/18 at 17:30 Clozapine (Clozaril) 75 mg QHS PO Last administered on 04/06/18 19:46; Start 04/03/18 at 21:00; Stop 04/07/18 at 14:59; Status DC Lactobacillus Rhamnosus (Culturelle) 1 cap BID PO Last administered on 19:22; Start 04/04/18 at 21:00 Furosemide (Lasix) 80 mg BID PO Last administered on 04/08/18 19:23; Start 04/04/18 at 21:00 Metformin HCl (Glucophage) 500 mg BID PO Last administered on 04/08/18 19:22 ; Start 04/04/18 at 21:00 Potassium Chloride (Klor-Con) 40 meq BID PO Last administered on 04/08/18 19: 21; Start 04/04/18 at 21:00 Cefdinir (Omnicef) 300 mg BID PO Last administered on 04/08/18 19:42; Start 04/04/18 at 21:00; Stop 04/11/18 at 09:01 Insulin Glargine (Lantus) 10 units QHS SQ Last administered on 04/06/18 19:55 ; Start 04/05/18 at 21:00; Stop 04/07/18 at 11:15; Status DC Haloperidol Decanoate (Haldol Decanoate Im Extended Release) 450 mg Q4WK IM ; Start 04/07/18 at 09:00; Stop 04/07/18 at 14:59; Status DC Insulin Glargine (Lantus) 12 units QHS SQ Last administered on 04/08/18at 21:48 ; Start 04/07/18 at 21:00 Clozapine (Clozaril) 200 mg QHS PO Last administered on 04/08/18at 19:41; Start 04/07/18 at 21:00 Haloperidol Decanoate (Haldol Decanoate Im Extended Release) 200 mg Q4WK IM Last administered on 04/07/18at 21:52; Start 04/07/18 at 21:00 Active Scripts Active Cefdinir 300 Mg Capsule 1 Cap PO BID Reported Trazodone Hcl 100 Mg Tablet 1 Tab PO QHS Klonopin (Clonazepam) 0.5 Mg Tablet 1 Tab PO DAILY Clozaril (Clozapine) 100 Mg Tablet 175 Mg PO HS Depakote Er (Divalproex Sodium) 500 Mg Tab.er.24h 750 Mg PO DAILY Depakote Er (Divalproex Sodium) 500 Mg Tab.er.24h 1,500 Mg PO HS Nystatin 15 Gm Powder 1 [place] TP BID Duoneb 0.5-3(2.5) Mg/3 Ml (Albuterol/Ipratropium) 3 Ml Ampul.neb 3 Ml NEB QID Zyprexa Zydis (Olanzapine) 5 Mg Tab.rapdis 5 Mg PO PRN Q2HR PRN Novolog Flexpen (Insulin Aspart) 100 Unit/1 Ml Insuln.pen 0-9 Unit SQ TIDWMEALS <70 follow hypoglycemic protocol 70-150 0units if eating/ 0 if not eating 151-200 4 units if eating/ 0 units if not eating 201-250 5 units if eating/ 3 units if not eating 251-300 7 units if eating/ 4 units if not eating 301-350 9 units if eating/ 5 units if not eating > 351 Call Physician for futher orders Trazodone Hcl 100 Mg Tablet 100 Mg PO PRN QHS PRN Trazodone Hcl 50 Mg Tablet 25 Mg PO TID@0900,1300,1700 Tylenol (Acetaminophen) 325 Mg Tablet 650 Mg PO PRN Q6HRS PRN Buspirone Hcl 10 Mg Tablet 20 Mg PO BID Metolazone 5 Mg Tablet 5 Mg PO DAILY Metformin Hcl 500 Mg Tablet 500 Mg PO BIDWMEALS Cardizem Tablet (Diltiazem Hcl) 120 Mg Tablet 120 Mg PO DAILY Actos (Pioglitazone Hcl) 15 Mg Tablet 15 Mg PO DAILY Mirtazapine 15 Mg Tablet 15 Mg PO QHS Haldol Decanoate 100 (Haloperidol Decanoate) 100 Mg/1 Ml Ampul 450 Mg IM Q4WK Klor-Con M20 (Potassium Chloride) 20 Meq Tab.er.prt 40 Meq PO BIDWMEALS Analgesic [place] (Methyl Salicylate/Menthol) 28 Gm Oint...g. 1 [place] TP PRN QID PRN Magnesium Oxide 400 Mg Tablet 400 Mg PO BID Milk Of Magnesia (Magnesium Hydroxide) 2,400 Mg/10 Ml Oral.susp 2,400 Mg PO PRN QHS PRN Maalox Advanced Suspension (Mag Hydrox/Aluminum Hyd/Simeth) 355 Ml Oral.susp 15 Ml PO PRN AFTMEALHC PRN D3-50 (Cholecalciferol (Vitamin D3)) 50,000 Unit Capsule 50,000 Unit PO QTH Clonazepam 1 Mg Tablet 1 Mg PO HS Furosemide 40 Mg Tablet 80 Mg PO [id number] Hold for SBP less than 100. After held dose, reassess in 2 hours. If SBP is above threshold, administer dose as ordered. If SBP is below threshold, contact provider for additional instructions. I have reviewed the current psychotropics carefully including drug interactions. Risk benefit ratio favors no change other than as noted in my dictated progress note. Diagnosis: Problems: (1) Hypokalemia (2) Altered mental status (3) Chronic kidney disease (4) Acute on chronic diastolic (congestive) heart failure (5) Acute and chronic respiratory failure with hypercapnia (6) Infiltrate of lower lobe of left lung present on imaging study (7) Depression (8) Schizoaffective disorder (9) Anxiety disorder (10) Impulse control disorder (11) DM type 2 (diabetes mellitus, type 2) (12) Chronic respiratory failure (13) Schizoaffective disorder, chronic condition with acute exacerbation (14) Hypoxia (15) Anemia (16) Dysphagia (17) B12 deficiency (18) Tremor (19) Lower extremity edema (20) Cellulitis KALIN STARKS MD Apr 08, 2018 22:49
[2018-04-09] MEDS: IPRATRPIUM/ALBUTEROL 0.5/2.5MG 3 ML NEBU. NEB SCH ×4 (05:19→20:07)
[2018-04-09 06:06] VITALS: BP 136/68
[2018-04-09] MEDS: INSULIN LISPRO 300 UNITS/3 ML INSULN.PEN. SQ SCH ×3 (08:00→17:00)
[2018-04-09] MEDS: DIVALPROEX ER 250 MG TAB.ER.24H. PO SCH (08:13)
[2018-04-09] MEDS: metFORMIN 500 MG TABLET PO SCH ×2 (08:14→21:05)
[2018-04-09] MEDS: busPIRone 10 MG TABLET. PO SCH ×2 (08:14→21:06)
[2018-04-09] MEDS: FUROSEMIDE 40 MG TABLET PO SCH ×2 (08:14→21:05)
[2018-04-09] MEDS: POTASSIUM CHLORIDE 20 MEQ TABLET.ER. PO SCH ×2 (08:14→21:11)
[2018-04-09] MEDS: traZODone 50 MG TABLET. PO SCH ×3 (08:15→16:20)
[2018-04-09] MEDS: PIOGLITAZONE 15 MG TABLET. PO SCH (08:15)
[2018-04-09] MEDS: MAGNESIUM OXIDE 400 MG TABLET PO SCH ×2 (08:15→21:05)
[2018-04-09] MEDS: LACTOBACILLUS RHAMNOSUS GG 1 CAPSULE. PO SCH ×2 (08:15→21:05)
[2018-04-09] MEDS: CEFDINIR 300 MG CAPSULE PO SCH ×2 (08:23→21:07)
[2018-04-09] MEDS: metOLazone 5 MG TABLET PO SCH (08:23)
[2018-04-09] MEDS: clonazePAM 0.5 MG TABLET PO SCH (08:23)
[2018-04-09] MEDS: NYSTATIN TOPICAL POWDER 15GM BOTTLE. TP SCH ×2 (09:00→21:11)
[2018-04-09 17:00] VITALS: BP 103/67
[2018-04-09] MEDS: traZODone 100 MG TABLET. PO SCH (21:00)
[2018-04-09] MEDS: cloZAPine 100 MG TABLET PO SCH (21:05)
[2018-04-09] MEDS: MIRTAZAPINE 15 MG TABLET PO SCH (21:05)
[2018-04-09] MEDS: DIVALPROEX ER 500 MG TAB.ER.24H PO SCH (21:06)
[2018-04-09] MEDS: clonazePAM 1 MG TABLET PO SCH (21:11)
[2018-04-09] MEDS: INSULIN GLARGINE 300 UNITS/3 ML INSULN.PEN. SQ SCH (21:14)
--- NOTE | 2018-04-09 21:27 | PN ---
DATE: 04/08/2018 PSYCHIATRIC PROGRESS NOTE This late entry 04/08/2018 covers elements not covered in my initial note. SUBJECTIVE: I met with the patient in the evening. The patient slept 6-1/4 hours previous night. She has been resistive to medications, but less labile, less psychotic. REVIEW OF SYSTEMS: Ambulation impaired with walker. No CV, , pulmonary, eye, ENT system symptoms on review. MENTAL STATUS EXAM: Oriented to herself and situation. Speech coherent, has some latency. Abstraction fair, computation impaired, language function intact. Attention span short. No suicidal ideation. She appears much less psychotic. LABORATORY DATA: Reviewed. IMPRESSION: Schizoaffective disorder, bipolar type, mixed with psychotic features, in partial remission; anxiety disorder, unspecified; impulse control disorder, unspecified. PLAN: No change from initial note. We have increased the Clozaril to 200 mg at bedtime, reduce the Haldol Decanoate from 450 down to 200 mg a day. Rest unchanged. KALIN STARKS MD DR: TRACIE/karli JOB#: [id number] / [id number]
--- NOTE | 2018-04-09 22:51 | PDOC ---
Exam Note: Napoleon Note: Please also refer to the separate dictated note~for this date of service dictated separately.~Patient seen individually. Discussed the patient with Nursing staff reviewed the chart.~Reviewed interim history and current functioning. Reviewed vital signs,~Labs/ Radiology~and current medications noted below. Continue current treatment with the changes noted in the dictated addendum note Assessment: Vital Signs: Vital Signs Date Time Temp Pulse Resp B/P (MAP) Pulse Ox O2 Delivery O2 Flow Rate FiO2 04/09/18 19:55 96 Room Air 04/09/18 17:00 98.8 90 20 103/67 (79) 04/09/18 05:03 2.0 I&O Intake and Output 04/09/18 07:00 Intake Total 720 ml Balance 720 ml Intake Oral 720 ml # Bowel Movements 1 Labs: Laboratory Tests Test 04/09/18 00:44 04/09/18 07:26 04/09/18 11:55 04/09/18 17:26 Glucose (Fingerstick) 105 mg/dL (70-99) H 145 mg/dL (70-99) H 142 mg/dL (70-99) H 126 mg/dL (70-99) H Test 04/09/18 19:37 Glucose (Fingerstick) 181 mg/dL (70-99) H Current Medications: Meds: Current Medications Acetaminophen (Tylenol) 650 mg PRN Q6HRS PRN PO PAIN / TEMP; Start 04/03/18 at 16:45 Vitamin D (Vitamin D3) 50,000 unit QTH PO ; Start 04/10/18 at 16:00 Albuterol/ Ipratropium (Duoneb) 3 ml QID NEB Last administered on 04/09/18at 20 :07; Start 04/03/18 at 17:00 Multi-Ingredient Ointment (Analgesic [place]) 1 guanaco PRN QID PRN TP MUSCLE PAIN; Start 04/03/18 at 16:45 Nystatin (Nystop) 1 guanaco BID TP Last administered on 04/09/18at 21:11; Start at 21:00 Potassium Chloride (Klor-Con) 40 meq BIDWMEALS PO Last administered on at 09:46; Start 04/03/18 at 17:00; Stop 04/04/18 at 11:51; Status DC Cefdinir (Omnicef) 300 mg BID PO ; Start 04/04/18 at 09:00; Stop 04/04/18 at 17: 55; Status DC Diltiazem HCl (Cardizem 24hr Cd) 120 mg DAILY PO Last administered on at 08:13; Start 04/04/18 at 09:00 Furosemide (Lasix) 80 mg BID92 PO Last administered on 04/04/18at 09:46; Start 04/04/18 at 09:00; Stop 04/04/18 at 11:51; Status DC Al Hydroxide/Mg Hydroxide (Mylanta Plus Xs) 15 ml PRN AFTMEALHC PRN PO DYSPEPSIA; Start 04/03/18 at 17:00 Magnesium Hydroxide (Milk Of Magnesia) 2,400 mg PRN QHS PRN PO CONSTIPATION; Start 04/03/18 at 17:00 Magnesium Oxide (Magnesium Oxide) 400 mg BID PO Last administered on at 21:05; Start 04/03/18 at 21:00 Metformin HCl (Glucophage) 500 mg BIDWMEALS PO Last administered on 04/04/18at 09:48; Start 04/03/18 at 17:00; Stop 04/04/18 at 11:52; Status DC Metolazone (Zaroxolyn) 5 mg DAILY PO Last administered on 04/09/18at 08:23; Start 04/04/18 at 09:00 Pioglitazone HCl (Actos) 15 mg DAILY PO Last administered on 04/09/18at 08:15; Start 04/04/18 at 09:00 Insulin Human Lispro (HumaLOG) 0-9 UNITS TIDWMEALS SQ Last administered on at 17:01; Start 04/03/18 at 17:00 Dextrose 12.5 gm PRN Q15MIN PRN IV SEE COMMENTS; Start 04/03/18 at 16:45 Clonazepam (KlonoPIN) 0.5 mg DAILY PO Last administered on 04/09/18at 08:23; Start 04/04/18 at 09:00 Olanzapine (ZyPREXA ZYDIS) 5 mg PRN Q2HR PRN PO ANXIETY / AGITATION; Start 04/03/18 at 17:00 Buspirone HCl (Buspar) 20 mg BID PO Last administered on 04/09/18 21:06; Start 04/03/18 at 21:00 Clonazepam (KlonoPIN) 1 mg HS PO Last administered on 04/09/18at 21:11; Start 04/03/18 at 21:00 Clozapine (Clozaril) 100 mg QHS PO Last administered on 04/06/18at 19:45; Start 04/03/18 at 21:00; Stop 04/07/18 at 14:59; Status DC Divalproex Sodium (Depakote Er) 1,500 mg QHS PO Last administered on at 21:06; Start 04/03/18 at 21:00 Divalproex Sodium (Depakote Er) 750 mg DAILY PO Last administered on at 08:13; Start 04/04/18 at 09:00 Haloperidol Decanoate (Haldol Decanoate Im Extended Release) 450 mg Q4WK IM ; Start 05/01/18 at 09:00; Stop 05/01/18 at 09:00; Status DC Mirtazapine (Remeron) 15 mg QHS PO Last administered on 04/09/18at 21:05; Start 04/03/18 at 21:00 Trazodone HCl (Desyrel) 25 mg TID@0900,1300,1700 PO Last administered on at 16:20; Start 04/04/18 at 09:00 Trazodone HCl (Desyrel) 100 mg QHS PO Last administered on 04/08/18at 19:41; Start 04/03/18 at 21:00 Trazodone HCl (Desyrel) 100 mg PRN QHS PRN PO INSOMNIA; Start 04/03/18 at 17:30 Clozapine (Clozaril) 75 mg QHS PO Last administered on 04/06/18at 19:46; Start 04/03/18 at 21:00; Stop 04/07/18 at 14:59; Status DC Lactobacillus Rhamnosus (Culturelle) 1 cap BID PO Last administered on at 21:05; Start 04/04/18 at 21:00 Furosemide (Lasix) 80 mg BID PO Last administered on 04/09/18at 21:05; Start 04/04/18 at 21:00 Metformin HCl (Glucophage) 500 mg BID PO Last administered on 04/09/18at 21:05 ; Start 04/04/18 at 21:00 Potassium Chloride (Klor-Con) 40 meq BID PO Last administered on 04/09/18at 21: 11; Start 04/04/18 at 21:00 Cefdinir (Omnicef) 300 mg BID PO Last administered on 04/09/18at 21:07; Start 04/04/18 at 21:00; Stop 04/11/18 at 09:01 Insulin Glargine (Lantus) 10 units QHS SQ Last administered on 04/06/18at 19:55 ; Start 04/05/18 at 21:00; Stop 04/07/18 at 11:15; Status DC Haloperidol Decanoate (Haldol Decanoate Im Extended Release) 450 mg Q4WK IM ; Start 04/07/18 at 09:00; Stop 04/07/18 at 14:59; Status DC Insulin Glargine (Lantus) 12 units QHS SQ Last administered on 04/09/18at 21:14 ; Start 04/07/18 at 21:00 Clozapine (Clozaril) 200 mg QHS PO Last administered on 04/09/18at 21:05; Start 04/07/18 at 21:00 Haloperidol Decanoate (Haldol Decanoate Im Extended Release) 200 mg Q4WK IM Last administered on 04/07/18at 21:52; Start 04/07/18 at 21:00 Active Scripts Active Cefdinir 300 Mg Capsule 1 Cap PO BID Reported Trazodone Hcl 100 Mg Tablet 1 Tab PO QHS Klonopin (Clonazepam) 0.5 Mg Tablet 1 Tab PO DAILY Clozaril (Clozapine) 100 Mg Tablet 175 Mg PO HS Depakote Er (Divalproex Sodium) 500 Mg Tab.er.24h 750 Mg PO DAILY Depakote Er (Divalproex Sodium) 500 Mg Tab.er.24h 1,500 Mg PO HS Nystatin 15 Gm Powder 1 [place] TP BID Duoneb 0.5-3(2.5) Mg/3 Ml (Albuterol/Ipratropium) 3 Ml Ampul.neb 3 Ml NEB QID Zyprexa Zydis (Olanzapine) 5 Mg Tab.rapdis 5 Mg PO PRN Q2HR PRN Novolog Flexpen (Insulin Aspart) 100 Unit/1 Ml Insuln.pen 0-9 Unit SQ TIDWMEALS <70 follow hypoglycemic protocol 70-150 0units if eating/ 0 if not eating 151-200 4 units if eating/ 0 units if not eating 201-250 5 units if eating/ 3 units if not eating 251-300 7 units if eating/ 4 units if not eating 301-350 9 units if eating/ 5 units if not eating > 351 Call Physician for futher orders Trazodone Hcl 100 Mg Tablet 100 Mg PO PRN QHS PRN Trazodone Hcl 50 Mg Tablet 25 Mg PO TID@0900,1300,1700 Tylenol (Acetaminophen) 325 Mg Tablet 650 Mg PO PRN Q6HRS PRN Buspirone Hcl 10 Mg Tablet 20 Mg PO BID Metolazone 5 Mg Tablet 5 Mg PO DAILY Metformin Hcl 500 Mg Tablet 500 Mg PO BIDWMEALS Cardizem Tablet (Diltiazem Hcl) 120 Mg Tablet 120 Mg PO DAILY Actos (Pioglitazone Hcl) 15 Mg Tablet 15 Mg PO DAILY Mirtazapine 15 Mg Tablet 15 Mg PO QHS Haldol Decanoate 100 (Haloperidol Decanoate) 100 Mg/1 Ml Ampul 450 Mg IM Q4WK Klor-Con M20 (Potassium Chloride) 20 Meq Tab.er.prt 40 Meq PO BIDWMEALS Analgesic [place] (Methyl Salicylate/Menthol) 28 Gm Oint...g. 1 [place] TP PRN QID PRN Magnesium Oxide 400 Mg Tablet 400 Mg PO BID Milk Of Magnesia (Magnesium Hydroxide) 2,400 Mg/10 Ml Oral.susp 2,400 Mg PO PRN QHS PRN Maalox Advanced Suspension (Mag Hydrox/Aluminum Hyd/Simeth) 355 Ml Oral.susp 15 Ml PO PRN AFTMEALHC PRN D3-50 (Cholecalciferol (Vitamin D3)) 50,000 Unit Capsule 50,000 Unit PO QTH Clonazepam 1 Mg Tablet 1 Mg PO HS Furosemide 40 Mg Tablet 80 Mg PO [id number] Hold for SBP less than 100. After held dose, reassess in 2 hours. If SBP is above threshold, administer dose as ordered. If SBP is below threshold, contact provider for additional instructions. I have reviewed the current psychotropics carefully including drug interactions. Risk benefit ratio favors no change other than as noted in my dictated progress note. Diagnosis: Problems: (1) Hypokalemia (2) Altered mental status (3) Chronic kidney disease (4) Acute on chronic diastolic (congestive) heart failure (5) Acute and chronic respiratory failure with hypercapnia (6) Infiltrate of lower lobe of left lung present on imaging study (7) Depression (8) Schizoaffective disorder (9) Anxiety disorder (10) Impulse control disorder (11) DM type 2 (diabetes mellitus, type 2) (12) Chronic respiratory failure (13) Schizoaffective disorder, chronic condition with acute exacerbation (14) Hypoxia (15) Anemia (16) Dysphagia (17) B12 deficiency (18) Tremor (19) Lower extremity edema (20) Cellulitis KALIN STARKS MD Apr 09, 2018 22:51
[2018-04-10] MEDS: IPRATRPIUM/ALBUTEROL 0.5/2.5MG 3 ML NEBU. NEB SCH ×4 (05:21→20:35)
[2018-04-10 06:08] VITALS: BP 141/80
[2018-04-10] MEDS: INSULIN LISPRO 300 UNITS/3 ML INSULN.PEN. SQ SCH ×3 (07:38→17:00)
[2018-04-10] MEDS: PIOGLITAZONE 15 MG TABLET. PO SCH ×2 (09:56→10:30)
[2018-04-10] MEDS: traZODone 50 MG TABLET. PO SCH ×4 (09:56→17:22)
[2018-04-10] MEDS: FUROSEMIDE 40 MG TABLET PO SCH ×3 (09:56→19:47)
[2018-04-10] MEDS: metFORMIN 500 MG TABLET PO SCH ×3 (09:56→19:49)
[2018-04-10] MEDS: POTASSIUM CHLORIDE 20 MEQ TABLET.ER. PO SCH ×2 (09:57→19:47)
[2018-04-10] MEDS: MAGNESIUM OXIDE 400 MG TABLET PO SCH ×2 (09:57→19:46)
[2018-04-10] MEDS: busPIRone 10 MG TABLET. PO SCH ×2 (09:57→19:47)
[2018-04-10] MEDS: DIVALPROEX ER 250 MG TAB.ER.24H. PO SCH (09:57)
[2018-04-10] MEDS: NYSTATIN TOPICAL POWDER 15GM BOTTLE. TP SCH ×2 (09:58→19:55)
[2018-04-10] MEDS: LACTOBACILLUS RHAMNOSUS GG 1 CAPSULE. PO SCH ×2 (10:02→19:47)
[2018-04-10] MEDS: CEFDINIR 300 MG CAPSULE PO SCH ×2 (10:02→19:56)
[2018-04-10] MEDS: metOLazone 5 MG TABLET PO SCH ×2 (10:02→10:45)
[2018-04-10] MEDS: clonazePAM 0.5 MG TABLET PO SCH (10:02)
[2018-04-10] MEDS ORDERED: CHOLECALCIFEROL (VITAMIN D3) 50,000 UNIT CAPSULE PO SCH (16:00)
[2018-04-10 16:24] VITALS: BP 97/63
[2018-04-10] MEDS: MIRTAZAPINE 15 MG TABLET PO SCH (19:46)
[2018-04-10] MEDS: DIVALPROEX ER 500 MG TAB.ER.24H PO SCH (19:46)
[2018-04-10] MEDS: cloZAPine 100 MG TABLET PO SCH (19:47)
[2018-04-10] MEDS: clonazePAM 1 MG TABLET PO SCH (19:53)
[2018-04-10] MEDS: traZODone 100 MG TABLET. PO SCH (19:56)
[2018-04-10] MEDS: INSULIN GLARGINE 300 UNITS/3 ML INSULN.PEN. SQ SCH (19:59)
--- NOTE | 2018-04-10 23:04 | PDOC ---
Exam Note: Napoleon Note: Please also refer to the separate dictated note~for this date of service dictated separately.~Patient seen individually. Discussed the patient with Nursing staff reviewed the chart.~Reviewed interim history and current functioning. Reviewed vital signs,~Labs/ Radiology~and current medications noted below. Continue current treatment with the changes noted in the dictated addendum note Assessment: Vital Signs: Vital Signs Date Time Temp Pulse Resp B/P (MAP) Pulse Ox O2 Delivery O2 Flow Rate FiO2 04/10/18 20:35 97 Room Air 04/10/18 16:24 99.2 101 20 97/63 (74) 04/09/18 05:03 2.0 I&O Intake and Output 04/10/18 07:00 Intake Total 760 ml Balance 760 ml Intake Oral 760 ml Labs: Laboratory Tests Test 04/10/18 07:11 04/10/18 12:10 04/10/18 16:56 Glucose (Fingerstick) 134 mg/dL (70-99) H 211 mg/dL (70-99) H 131 mg/dL (70-99) H Current Medications: Meds: Current Medications Acetaminophen (Tylenol) 650 mg PRN Q6HRS PRN PO PAIN / TEMP; Start 04/03/18 at 16:45 Vitamin D (Vitamin D3) 50,000 unit QTH PO Last administered on 04/10/18at 17:22 ; Start 04/10/18 at 16:00 Albuterol/ Ipratropium (Duoneb) 3 ml QID NEB Last administered on 04/10/18at 20 :35; Start 04/03/18 at 17:00 Multi-Ingredient Ointment (Analgesic [place]) 1 guanaco PRN QID PRN TP MUSCLE PAIN; Start 04/03/18 at 16:45 Nystatin (Nystop) 1 guanaco BID TP Last administered on 04/10/18at 19:55; Start at 21:00 Potassium Chloride (Klor-Con) 40 meq BIDWMEALS PO Last administered on at 09:46; Start 04/03/18 at 17:00; Stop 04/04/18 at 11:51; Status DC Cefdinir (Omnicef) 300 mg BID PO ; Start 04/04/18 at 09:00; Stop 04/04/18 at 17: 55; Status DC Diltiazem HCl (Cardizem 24hr Cd) 120 mg DAILY PO Last administered on 09:58; Start 04/04/18 at 09:00 Furosemide (Lasix) 80 mg BID92 PO Last administered on 04/04/18at 09:46; Start 04/04/18 at 09:00; Stop 04/04/18 at 11:51; Status DC Al Hydroxide/Mg Hydroxide (Mylanta Plus Xs) 15 ml PRN AFTMEALHC PRN PO DYSPEPSIA; Start 04/03/18 at 17:00 Magnesium Hydroxide (Milk Of Magnesia) 2,400 mg PRN QHS PRN PO CONSTIPATION; Start 04/03/18 at 17:00 Magnesium Oxide (Magnesium Oxide) 400 mg BID PO Last administered on 19:46; Start 04/03/18 at 21:00 Metformin HCl (Glucophage) 500 mg BIDWMEALS PO Last administered on 04/04/18at 09:48; Start 04/03/18 at 17:00; Stop 04/04/18 at 11:52; Status DC Metolazone (Zaroxolyn) 5 mg DAILY PO Last administered on 04/09/18 08:23; Start 04/04/18 at 09:00 Pioglitazone HCl (Actos) 15 mg DAILY PO Last administered on 04/09/18 08:15; Start 04/04/18 at 09:00 Insulin Human Lispro (HumaLOG) 0-9 UNITS TIDWMEALS SQ Last administered on at 12:19; Start 04/03/18 at 17:00 Dextrose 12.5 gm PRN Q15MIN PRN IV SEE COMMENTS; Start 04/03/18 at 16:45 Clonazepam (KlonoPIN) 0.5 mg DAILY PO Last administered on 04/10/18at 10:02; Start 04/04/18 at 09:00 Olanzapine (ZyPREXA ZYDIS) 5 mg PRN Q2HR PRN PO ANXIETY / AGITATION; Start 04/03/18 at 17:00 Buspirone HCl (Buspar) 20 mg BID PO Last administered on 04/10/18 19:47; Start 04/03/18 at 21:00 Clonazepam (KlonoPIN) 1 mg HS PO Last administered on 04/10/18 19:53; Start 04/03/18 at 21:00 Clozapine (Clozaril) 100 mg QHS PO Last administered on 04/06/18 19:45; Start 04/03/18 at 21:00; Stop 04/07/18 at 14:59; Status DC Divalproex Sodium (Depakote Er) 1,500 mg QHS PO Last administered on 19:46; Start 04/03/18 at 21:00 Divalproex Sodium (Depakote Er) 750 mg DAILY PO Last administered on 09:57; Start 04/04/18 at 09:00 Haloperidol Decanoate (Haldol Decanoate Im Extended Release) 450 mg Q4WK IM ; Start 05/01/18 at 09:00; Stop 05/01/18 at 09:00; Status DC Mirtazapine (Remeron) 15 mg QHS PO Last administered on 04/10/18 19:46; Start 04/03/18 at 21:00 Trazodone HCl (Desyrel) 25 mg TID@0900,1300,1700 PO Last administered on 17:22; Start 04/04/18 at 09:00 Trazodone HCl (Desyrel) 100 mg QHS PO Last administered on 04/10/18 19:56; Start 04/03/18 at 21:00 Trazodone HCl (Desyrel) 100 mg PRN QHS PRN PO INSOMNIA; Start 04/03/18 at 17:30 Clozapine (Clozaril) 75 mg QHS PO Last administered on 04/06/18 19:46; Start 04/03/18 at 21:00; Stop 04/07/18 at 14:59; Status DC Lactobacillus Rhamnosus (Culturelle) 1 cap BID PO Last administered on 19:47; Start 04/04/18 at 21:00 Furosemide (Lasix) 80 mg BID PO Last administered on 04/10/18 19:47; Start 04/04/18 at 21:00 Metformin HCl (Glucophage) 500 mg BID PO Last administered on 04/10/18 19:49 ; Start 04/04/18 at 21:00 Potassium Chloride (Klor-Con) 40 meq BID PO Last administered on 04/10/18 19: 47; Start 04/04/18 at 21:00 Cefdinir (Omnicef) 300 mg BID PO Last administered on 04/10/18at 19:56; Start 04/04/18 at 21:00; Stop 04/11/18 at 09:01 Insulin Glargine (Lantus) 10 units QHS SQ Last administered on 04/06/18at 19:55 ; Start 04/05/18 at 21:00; Stop 04/07/18 at 11:15; Status DC Haloperidol Decanoate (Haldol Decanoate Im Extended Release) 450 mg Q4WK IM ; Start 04/07/18 at 09:00; Stop 04/07/18 at 14:59; Status DC Insulin Glargine (Lantus) 12 units QHS SQ Last administered on 04/10/18at 19:59 ; Start 04/07/18 at 21:00 Clozapine (Clozaril) 200 mg QHS PO Last administered on 04/10/18at 19:47; Start 04/07/18 at 21:00 Haloperidol Decanoate (Haldol Decanoate Im Extended Release) 200 mg Q4WK IM Last administered on 04/07/18at 21:52; Start 04/07/18 at 21:00 Active Scripts Active Cefdinir 300 Mg Capsule 1 Cap PO BID Reported Trazodone Hcl 100 Mg Tablet 1 Tab PO QHS Klonopin (Clonazepam) 0.5 Mg Tablet 1 Tab PO DAILY Clozaril (Clozapine) 100 Mg Tablet 175 Mg PO HS Depakote Er (Divalproex Sodium) 500 Mg Tab.er.24h 750 Mg PO DAILY Depakote Er (Divalproex Sodium) 500 Mg Tab.er.24h 1,500 Mg PO HS Nystatin 15 Gm Powder 1 Guanaco TP BID Duoneb 0.5-3(2.5) Mg/3 Ml (Albuterol/Ipratropium) 3 Ml Ampul.neb 3 Ml NEB QID Zyprexa Zydis (Olanzapine) 5 Mg Tab.rapdis 5 Mg PO PRN Q2HR PRN Novolog Flexpen (Insulin Aspart) 100 Unit/1 Ml Insuln.pen 0-9 Unit SQ TIDWMEALS <70 follow hypoglycemic protocol 70-150 0units if eating/ 0 if not eating 151-200 4 units if eating/ 0 units if not eating 201-250 5 units if eating/ 3 units if not eating 251-300 7 units if eating/ 4 units if not eating 301-350 9 units if eating/ 5 units if not eating > 351 Call Physician for futher orders Trazodone Hcl 100 Mg Tablet 100 Mg PO PRN QHS PRN Trazodone Hcl 50 Mg Tablet 25 Mg PO TID@0900,1300,1700 Tylenol (Acetaminophen) 325 Mg Tablet 650 Mg PO PRN Q6HRS PRN Buspirone Hcl 10 Mg Tablet 20 Mg PO BID Metolazone 5 Mg Tablet 5 Mg PO DAILY Metformin Hcl 500 Mg Tablet 500 Mg PO BIDWMEALS Cardizem Tablet (Diltiazem Hcl) 120 Mg Tablet 120 Mg PO DAILY Actos (Pioglitazone Hcl) 15 Mg Tablet 15 Mg PO DAILY Mirtazapine 15 Mg Tablet 15 Mg PO QHS Haldol Decanoate 100 (Haloperidol Decanoate) 100 Mg/1 Ml Ampul 450 Mg IM Q4WK Klor-Con M20 (Potassium Chloride) 20 Meq Tab.er.prt 40 Meq PO BIDWMEALS Analgesic [place] (Methyl Salicylate/Menthol) 28 Gm Oint...g. 1 Guanaco TP PRN QID PRN Magnesium Oxide 400 Mg Tablet 400 Mg PO BID Milk Of Magnesia (Magnesium Hydroxide) 2,400 Mg/10 Ml Oral.susp 2,400 Mg PO PRN QHS PRN Maalox Advanced Suspension (Mag Hydrox/Aluminum Hyd/Simeth) 355 Ml Oral.susp 15 Ml PO PRN AFTMEALHC PRN D3-50 (Cholecalciferol (Vitamin D3)) 50,000 Unit Capsule 50,000 Unit PO QTH Clonazepam 1 Mg Tablet 1 Mg PO HS Furosemide 40 Mg Tablet 80 Mg PO BID92 Hold for SBP less than 100. After held dose, reassess in 2 hours. If SBP is above threshold, administer dose as ordered. If SBP is below threshold, contact provider for additional instructions. I have reviewed the current psychotropics carefully including drug interactions. Risk benefit ratio favors no change other than as noted in my dictated progress note. Diagnosis: Problems: (1) Hypokalemia (2) Altered mental status (3) Chronic kidney disease (4) Acute on chronic diastolic (congestive) heart failure (5) Acute and chronic respiratory failure with hypercapnia (6) Infiltrate of lower lobe of left lung present on imaging study (7) Depression (8) Schizoaffective disorder (9) Anxiety disorder (10) Impulse control disorder (11) DM type 2 (diabetes mellitus, type 2) (12) Chronic respiratory failure (13) Schizoaffective disorder, chronic condition with acute exacerbation (14) Hypoxia (15) Anemia (16) Dysphagia (17) B12 deficiency (18) Tremor (19) Lower extremity edema (20) Cellulitis KALIN STARKS MD Apr 10, 2018 23:04
[2018-04-11] MEDS: IPRATRPIUM/ALBUTEROL 0.5/2.5MG 3 ML NEBU. NEB SCH ×4 (05:16→19:58)
[2018-04-11 06:28] VITALS: BP 130/83
[2018-04-11] MEDS: metFORMIN 500 MG TABLET PO SCH ×2 (07:45→19:47)
[2018-04-11] MEDS: LACTOBACILLUS RHAMNOSUS GG 1 CAPSULE. PO SCH ×2 (07:45→19:47)
[2018-04-11] MEDS: DIVALPROEX ER 250 MG TAB.ER.24H. PO SCH ×2 (07:46→19:49)
[2018-04-11] MEDS: busPIRone 10 MG TABLET. PO SCH ×2 (07:46→19:47)
[2018-04-11] MEDS: POTASSIUM CHLORIDE 20 MEQ TABLET.ER. PO SCH ×2 (07:46→19:49)
[2018-04-11] MEDS: metOLazone 5 MG TABLET PO SCH (07:46)
[2018-04-11] MEDS: CEFDINIR 300 MG CAPSULE PO SCH (07:47)
[2018-04-11] MEDS: traZODone 50 MG TABLET. PO SCH ×4 (07:48→17:45)
[2018-04-11] MEDS: PIOGLITAZONE 15 MG TABLET. PO SCH (07:48)
[2018-04-11] MEDS: FUROSEMIDE 40 MG TABLET PO SCH ×2 (07:48→19:47)
[2018-04-11] MEDS: MAGNESIUM OXIDE 400 MG TABLET PO SCH ×2 (07:48→19:47)
[2018-04-11] MEDS: INSULIN LISPRO 300 UNITS/3 ML INSULN.PEN. SQ SCH ×3 (07:49→17:23)
[2018-04-11] MEDS: clonazePAM 0.5 MG TABLET PO SCH (07:52)
[2018-04-11] MEDS: NYSTATIN TOPICAL POWDER 15GM BOTTLE. TP SCH ×2 (07:52→19:55)
[2018-04-11 16:08] VITALS: BP 108/61
[2018-04-11] MEDS: cloZAPine 100 MG TABLET PO SCH (19:47)
[2018-04-11] MEDS: MIRTAZAPINE 15 MG TABLET PO SCH (19:47)
[2018-04-11] MEDS: traZODone 100 MG TABLET. PO SCH (19:48)
[2018-04-11] MEDS: clonazePAM 1 MG TABLET PO SCH (19:49)
[2018-04-11] MEDS: INSULIN GLARGINE 300 UNITS/3 ML INSULN.PEN. SQ SCH (19:50)
--- NOTE | 2018-04-11 20:55 | PN ---
DATE: 04/10/2018 PSYCHIATRIC PROGRESS NOTE This is a late entry 04/10/2018, covers elements not covered in my initial note. SUBJECTIVE: I met with the patient in the evening and the patient was staffed at treatment team meeting with the entire team in the morning. She has been accepted to return to [facility] in [place] on Saturday. In the meantime, she is doing better, less lability of her mood. REVIEW OF SYSTEMS: Ambulation impaired with walker. No CV, , pulmonary, eye, ENT system symptoms on review. MENTAL STATUS EXAM: Oriented to herself and situation. Speech has some latency, coherent, less yelling. Abstraction fair, computation impaired, language function intact. Attention span short. Short term memory has some impairment, remote is reasonable. No suicidal or homicidal ideation. LABORATORY DATA: Reviewed. IMPRESSION: Schizoaffective disorder, bipolar type, mixed with psychotic features, in partial remission; anxiety disorder, unspecified; cognitive disorder, unspecified. PLAN: No change from initial note. Maintain Clozaril 200 mg p.o. at bedtime, BuSpar, Klonopin, scheduled trazodone, Depakote at current dosage, level therapeutic. Dr. Godoy will resume care of the patient during my absence. KALIN STARKS MD DR: TRACIE/karli JOB#: [id number] / [id number]
--- NOTE | 2018-04-11 22:37 | PN ---
DATE: 04/09/2018 This is a late entry for 04/09/2018 covers elements not covered in my initial note. SUBJECTIVE: I met with the patient in the evening. The patient slept 6-3/4 hours previous night. Compliant with medications, took her trazodone in ice-cream. She gets a little labile at times, but much improved, less psychotic. REVIEW OF SYSTEMS: Ambulation impaired with walker. No CV, , pulmonary, eye, ENT system symptoms on review. Reliability poor. MENTAL STATUS EXAM: Oriented to herself and situation. Speech has some latency, coherent. Abstraction fair, computation impaired, language function intact. Attention span short. No suicidal or homicidal ideation. LABORATORY DATA: Reviewed. IMPRESSION: Schizoaffective disorder, bipolar type, mixed with psychotic features, in partial remission; cognitive disorder, unspecified. Rest unchanged. PLAN: No change from initial note. Clozaril has been ____. We reduced the Haldol Decanoate and previously stopped the oral Haldol. We may consider reducing the scheduled Klonopin and trazodone in due course. KALIN STARKS MD DR: TRACIE/karli JOB#: [id number] / [id number]
--- NOTE | 2018-04-12 02:04 | PN ---
DATE: 04/11/2018 SUBJECTIVE: The patient was seen today, met with the staff, chart reviewed, also covering for Dr. Feliz. The patient apparently was in ICU recently. The patient continues to be paranoid, suspicious, also refusing medications, tend to wander, difficult to redirect. OBSERVATION: VITAL SIGNS: Temperature 97, blood pressure 130/83, pulse 90, respirations 18, O2 sat 92%. Slept about 6 hours last night. CURRENT MEDICATIONS: The patient's current medications include Depakote 1500 mg at night, Haldol decanoate 200 mg every 4 weeks, clozapine 200 mg at night, trazodone 25 mg t.i.d., Depakote 750 mg daily, Klonopin 0.5 mg daily, trazodone 100 mg at night, mirtazapine 15 mg at night, clonazepam 1 mg at night, BuSpar 20 mg b.i.d. The patient is not exhibiting any major side effects at this time. The patient has no other major medical issues at this point. ASSESSMENT: Schizoaffective disorder, bipolar type, mixed with psychotic features; anxiety disorder, unspecified. PLAN: Continue with the current medications. The patient will be followed up by the primary care doctor for the medical issues. COY KELLEY MD DR: KILEY/karli JOB#: [id number] / [id number]
[2018-04-12 05:37] VITALS: BP 103/61
[2018-04-12] MEDS: IPRATRPIUM/ALBUTEROL 0.5/2.5MG 3 ML NEBU. NEB SCH ×4 (05:46→20:59)
[2018-04-12 07:06] LABS: ALBUMIN 2.6 g/dL (3.4-5.0); ALBUMIN/GLOBULIN RATIO 0.5 (1.0-1.7); CALCIUM 8.7 mg/dL (8.5-10.1); CREATININE 1.5 mg/dL (0.6-1.0); GFR 42.4; TOTAL BILIRUBIN 0.1 mg/dL (0.2-1.0); TOTAL PROTEIN 7.5 g/dL (6.4-8.2)
[2018-04-12] MEDS: INSULIN LISPRO 300 UNITS/3 ML INSULN.PEN. SQ SCH ×3 (07:38→17:34)
[2018-04-12] MEDS: LACTOBACILLUS RHAMNOSUS GG 1 CAPSULE. PO SCH ×2 (11:28→19:39)
[2018-04-12] MEDS: PIOGLITAZONE 15 MG TABLET. PO SCH (11:28)
[2018-04-12] MEDS: metFORMIN 500 MG TABLET PO SCH ×2 (11:29→19:39)
[2018-04-12] MEDS: DIVALPROEX ER 250 MG TAB.ER.24H. PO SCH ×2 (11:29→19:39)
[2018-04-12] MEDS: POTASSIUM CHLORIDE 20 MEQ TABLET.ER. PO SCH ×2 (11:30→19:40)
[2018-04-12] MEDS: MAGNESIUM OXIDE 400 MG TABLET PO SCH ×2 (11:31→19:39)
[2018-04-12] MEDS: FUROSEMIDE 40 MG TABLET PO SCH ×2 (11:31→19:39)
[2018-04-12] MEDS: busPIRone 10 MG TABLET. PO SCH ×2 (11:31→19:39)
[2018-04-12] MEDS: traZODone 50 MG TABLET. PO SCH ×3 (11:31→17:31)
[2018-04-12] MEDS: NYSTATIN TOPICAL POWDER 15GM BOTTLE. TP SCH ×2 (11:32→19:41)
[2018-04-12] MEDS: clonazePAM 0.5 MG TABLET PO SCH (11:40)
[2018-04-12] MEDS: metOLazone 5 MG TABLET PO SCH (11:40)
[2018-04-12 15:40] VITALS: BP 100/67
[2018-04-12] MEDS: MIRTAZAPINE 15 MG TABLET PO SCH (19:39)
[2018-04-12] MEDS: cloZAPine 100 MG TABLET PO SCH (19:39)
[2018-04-12] MEDS: clonazePAM 1 MG TABLET PO SCH (19:39)
[2018-04-12] MEDS: traZODone 100 MG TABLET. PO SCH (19:40)
[2018-04-12] MEDS: INSULIN GLARGINE 300 UNITS/3 ML INSULN.PEN. SQ SCH (19:42)
--- NOTE | 2018-04-12 20:21 | PN ---
DATE: SUBJECTIVE: The patient was seen today, met with the staff, and chart reviewed. The patient currently is paranoid, suspicious, also refusing the medications at times. OBSERVATION: VITAL SIGNS: Temperature 97.7, blood pressure 103/61, pulse 88, respirations 16, O2 sat 93%. GENERAL: Sleeps 7 hours last night. The patient's appetite improved. CURRENT MEDICATIONS: Include Depakote 500 mg at night, Haldol Decanoate 200 mg q. 4 hours, clozapine 200 mg at night, trazodone 25 mg t.i.d., Depakote 750 mg daily, Klonopin 0.5 mg daily, trazodone 100 mg at night, mirtazapine 15 mg at night and Klonopin 1 mg at night. The patient is also on BuSpar 20 mg b.i.d. The patient is not showing any major side effects. ASSESSMENT: 1. Schizoaffective disorder, bipolar type, mixed with psychotic features. 2. Anxiety disorder, unspecified. PLAN: Plan is to continue with the treatment. COY KELLEY MD DR: KILEY/karli JOB#: [id number] / [id number]
[2018-04-13] MEDS: IPRATRPIUM/ALBUTEROL 0.5/2.5MG 3 ML NEBU. NEB SCH ×4 (05:24→20:05)
[2018-04-13 05:34] VITALS: BP 98/56
[2018-04-13] MEDS: INSULIN LISPRO 300 UNITS/3 ML INSULN.PEN. SQ SCH ×3 (08:00→17:00)
[2018-04-13] MEDS: DIVALPROEX ER 250 MG TAB.ER.24H. PO SCH ×2 (09:31→20:33)
[2018-04-13] MEDS: metOLazone 5 MG TABLET PO SCH ×2 (09:31→20:33)
[2018-04-13] MEDS: LACTOBACILLUS RHAMNOSUS GG 1 CAPSULE. PO SCH ×2 (09:32→20:32)
[2018-04-13] MEDS: busPIRone 10 MG TABLET. PO SCH ×2 (09:32→20:33)
[2018-04-13] MEDS: POTASSIUM CHLORIDE 20 MEQ TABLET.ER. PO SCH ×3 (09:32→20:33)
[2018-04-13] MEDS: MAGNESIUM OXIDE 400 MG TABLET PO SCH ×2 (09:33→20:32)
[2018-04-13] MEDS: metFORMIN 500 MG TABLET PO SCH ×2 (09:33→20:32)
[2018-04-13] MEDS: PIOGLITAZONE 15 MG TABLET. PO SCH (09:33)
[2018-04-13] MEDS: FUROSEMIDE 40 MG TABLET PO SCH ×2 (09:33→20:33)
[2018-04-13] MEDS: traZODone 50 MG TABLET. PO SCH ×3 (09:33→16:43)
[2018-04-13] MEDS: NYSTATIN TOPICAL POWDER 15GM BOTTLE. TP SCH ×2 (09:34→20:33)
[2018-04-13] MEDS: clonazePAM 0.5 MG TABLET PO SCH (09:37)
[2018-04-13 17:13] VITALS: BP 119/82
--- NOTE | 2018-04-13 17:32 | DS ---
DATE OF DISCHARGE: 04/13/2018 FINAL DIAGNOSES: 1. Schizoaffective disorder, bipolar type, mixed with psychotic features. 2. Anxiety disorder, unspecified. 3. Impulse control disorder, unspecified. AXIS II: None. AXIS III: Congestive heart failure, chronic obstructive pulmonary disease, diabetes mellitus type 2, atrial fib, chronic kidney disease, cellulitis, hyperlipidemia, restless leg syndrome, dysphagia, anemia, osteoarthritis. REASON FOR ADMISSION: This 62-year-old -[place] female, who was read[facility] ICU at [facility] because her oxygen saturation dropped considerably and also had pneumonia. The patient is admitted here for schizoaffective disorder, bipolar type. HISTORY OF PRESENT ILLNESS: She has a long history of schizoaffective disorder, bipolar type with psychotic symptoms, multiple [facility]. [facility]. Prior to coming here, she become extremely agitated, labile, psychotic, and she could not comprehend very well. HOSPITAL COURSE: The patient had a physical exam, routine lab work including CBC, chem profile, urinalysis. Most of the labwork are within normal range except for elevated blood sugar. The patient's sodium was 143, potassium was 3, carbon dioxide 38, BUN 30, creatinine 1.5. The patient was involved in the program including individual therapy, group therapy, activity therapy. The patient was on potassium chloride 40 mEq t.i.d. p.o., Depakote 1500 mg at night, Haldol Decanoate 200 mg IM q.4 weeks, clozapine 200 mg at night. She is also on Lantus 12 units at night, metformin 500 mg b.i.d., Lasix 80 mg b.i.d., trazodone 25 mg t.i.d. also Depakote 750 mg daily, Klonopin 0.5 mg daily, Actos 15 mg daily, Cardizem CD 24 hours 120 mg daily, trazodone 100 mg at night, mirtazapine 15 mg at night, clonazepam 1 mg at night, BuSpar 20 mg b.i.d. She was also on albuterol inhaler 4 times daily. The patient is most of the time on the wheelchair. She has difficulty walking. She is markedly obese. The patient also tends to sleep bottom of the chair and that sometimes, but no major falls. The patient made some progress. AFTERCARE PLAN: [facility] the [facility], continue with the medication listed above and she will be followed by the psychiatrist from the [facility]. COY KELLEY MD DR: Angelique JOB#: [id number] / [id number]
[2018-04-13] MEDS: traZODone 100 MG TABLET. PO SCH (20:32)
[2018-04-13] MEDS: MIRTAZAPINE 15 MG TABLET PO SCH (20:32)
[2018-04-13] MEDS: cloZAPine 100 MG TABLET PO SCH (20:32)
[2018-04-13] MEDS: clonazePAM 1 MG TABLET PO SCH (20:32)
[2018-04-13] MEDS: INSULIN GLARGINE 300 UNITS/3 ML INSULN.PEN. SQ SCH (20:35)
[2018-04-14] MEDS ORDERED: INSU100I13 SQ (03:43)
[2018-04-14] MEDS ORDERED: LACT1CAP21 PO (03:44)
[2018-04-14] MEDS: IPRATRPIUM/ALBUTEROL 0.5/2.5MG 3 ML NEBU. NEB SCH ×2 (05:26→15:44)
[2018-04-14 06:35] VITALS: BP 118/78
[2018-04-14 07:27] LABS: BASO % 1 % (0-3); EOS # 0.1 x10^3/uL (0.0-0.7); EOS % 1 % (0-3); HEMATOCRIT 40.4 % (36.0-47.0); HEMOGLOBIN 12.7 g/dL (12.0-15.5); LYMPH # 2.5 x10^3/uL (1.0-4.8); LYMPH % 36 % (24-48); MEAN CORPUSCULAR HEMOGLOBIN 28 pg (25-35); MEAN CORPUSCULAR HGB CONC 32 g/dL (31-37); MEAN CORPUSCULAR VOLUME 89 fL (79-100); MONO # 0.5 x10^3/uL (0.0-1.1); MONO % 7 % (0-9); NEUT # 3.8 x10^3uL (1.8-7.7); NEUT % 55 % (31-73); PLATELET COUNT 220 x10^3/uL (140-400); RED BLOOD COUNT 4.55 x10^6/uL (3.50-5.40); WHITE BLOOD COUNT 6.9 x10^3/uL (4.0-11.0)
[2018-04-14 07:37] LABS: ALBUMIN 3.1 g/dL (3.4-5.0); ALBUMIN/GLOBULIN RATIO 0.6 (1.0-1.7); CALCIUM 9.2 mg/dL (8.5-10.1); CREATININE 1.6 mg/dL (0.6-1.0); GFR 39.4; POTASSIUM 3.2 mmol/L (3.5-5.1); TOTAL BILIRUBIN 0.2 mg/dL (0.2-1.0); TOTAL PROTEIN 8.7 g/dL (6.4-8.2)
[2018-04-14] MEDS: POTASSIUM CHLORIDE 20 MEQ TABLET.ER. PO SCH ×2 (07:57→12:18)
[2018-04-14] MEDS: LACTOBACILLUS RHAMNOSUS GG 1 CAPSULE. PO SCH (07:57)
[2018-04-14] MEDS: PIOGLITAZONE 15 MG TABLET. PO SCH (07:57)
[2018-04-14] MEDS: DIVALPROEX ER 250 MG TAB.ER.24H. PO SCH (07:57)
[2018-04-14] MEDS: busPIRone 10 MG TABLET. PO SCH (07:58)
[2018-04-14] MEDS: metFORMIN 500 MG TABLET PO SCH (07:58)
[2018-04-14] MEDS: MAGNESIUM OXIDE 400 MG TABLET PO SCH (07:58)
[2018-04-14] MEDS: FUROSEMIDE 40 MG TABLET PO SCH (07:58)
[2018-04-14] MEDS: traZODone 50 MG TABLET. PO SCH ×2 (07:58→12:18)
[2018-04-14] MEDS: NYSTATIN TOPICAL POWDER 15GM BOTTLE. TP SCH (08:00)
[2018-04-14] MEDS: INSULIN LISPRO 300 UNITS/3 ML INSULN.PEN. SQ SCH ×2 (08:00→12:00)
[2018-04-14] MEDS: clonazePAM 0.5 MG TABLET PO SCH (08:01)
[2018-04-14 16:12] VITALS: BP 107/75
[2018-05-01] MEDS ORDERED: HALOPERIDOL DECANOATE IM ER 100 MG/ML VIAL. IM SCH (09:00)
== END 2018-04-14 17:36 | DRG 885 ==
LOC: GEROPSY 15:20
PROVIDERS: ADMIT Psychiatry & Neurology Psychiatry; ATTEND Psychiatry & Neurology Psychiatry
DX: F25.0 Schizoaffective disorder, bipolar type (principal); E43 Unspecified severe protein-calorie malnutrition; I50.33 Acute on chronic diastolic (congestive) heart failure; J18.9 Pneumonia, unspecified organism; J96.21 Acute and chronic respiratory failure with hypoxia; J96.22 Acute and chronic respiratory failure with hypercapnia; J44.0 Chronic obstructive pulmonary disease with (acute) lower respiratory infection; L03.90 Cellulitis, unspecified; Z68.41 Body mass index [BMI] 40.0-44.9, adult; D64.9 Anemia, unspecified; E11.22 Type 2 diabetes mellitus with diabetic chronic kidney disease; E11.65 Type 2 diabetes mellitus with hyperglycemia; E53.8 Deficiency of other specified B group vitamins; E66.9 Obesity, unspecified; E78.5 Hyperlipidemia, unspecified; E87.6 Hypokalemia; F03.90 Unspecified dementia, unspecified severity, without behavioral disturbance, psychotic disturbance, mood disturbance, and anxiety; F09 Unspecified mental disorder due to known physiological condition; F41.9 Anxiety disorder, unspecified; F63.9 Impulse disorder, unspecified; G25.81 Restless legs syndrome; I48.91 Unspecified atrial fibrillation; M19.90 Unspecified osteoarthritis, unspecified site; N18.9 Chronic kidney disease, unspecified; R13.10 Dysphagia, unspecified; Z79.4 Long term (current) use of insulin; Z79.899 Other long term (current) drug therapy; Z87.01 Personal history of pneumonia (recurrent)
CPT/HCPCS: 36415; 80053; 82947; 83735; 85025; 94640; J1631; J1815; J7620